=== PATIENT | female | born 1945 | race Caucasian/White ===

== ENCOUNTER 2018-11-24 10:06 | Observation (INO) | payer MEDICARE, SELFPAY ==
[2018-11-24] VITALS (12 sets, daily range): BP systolic 117–140; BP diastolic 69–93; PULSE 72–91; RESP 16–18; TEMP 36.8–37.1; O2SAT 94–99; BMI 37.3; BMI 35.7; BMI 35.8
--- NOTE | 2018-11-24 10:19 | EKG12_ITS ---
Test Reason : CP Blood Pressure : / mmHG Vent. Rate : 096 BPM Atrial Rate : 096 BPM P-R Int : 168 ms QRS Dur : 068 ms QT Int : 358 ms P-R-T Axes : 043 010 046 degrees QTc Int : 452 ms Normal sinus rhythm Possible Inferior infarct , age undetermined Abnormal ECG Confirmed by MISBAH COREAS, LUIS ([id number]), news assignment editor SMOOTH ESTEBAN ([id number]) on 11/29/2018 9:08:18 AM Referred By: ESTHER Confirmed By:LUIS CRAWLEY MD
--- NOTE | 2018-11-24 10:29 | RAD_ITS ---
STUDY: X-RAY CHEST REASON FOR EXAM: Female, 73 years old. Chest pain. TECHNIQUE: Single AP portable view of the chest. COMPARISON: None. FINDINGS: EKG electrodes are seen. Mild elevation of the right hemidiaphragm. Scattered calcified granulomas. There is no demonstrated pleural abnormality. Normal size heart. Normal mediastinum and zenaida. Normal visualized pulmonary arteries. There is atherosclerotic tortuosity of the aortic arch and descending thoracic aorta. There are degenerative changes of the visualized thoracic spine. Normal visualized ribs, clavicles, and shoulders. There is no demonstrated abnormality of the visualized soft tissue structures of the upper abdomen. RAD/Chest 1 View (Portable) IMPRESSION: No acute abnormality is seen. Electronically Signed: Art Dias MD at 10:45 EST Tel [phone], Service support ,
--- NOTE | 2018-11-24 10:31 | ED.DCSUM_ITS ---
- ER Visit Summary Date of Service: 11/24/18 Chief Complaint: Chest pain History of Present Illness: The patient is a 73 F history of hypertension. Patient denies any recent travel, surgery or immobilization. No leg pain or swelling. No hemoptysis. No pleuritic chest pain. No prior history of DVT or PE. Patient states the pain is across her chest and slightly to her left shoulder. States this awoke her from sleep at 6 AM this morning. She has had a recent stress test not done at this facility in the last 3 years which she states was negative. She denies ever having a cardiac catheterization. She herself has no cardiac history but her brother has 8 stents. Her sister and dad both had CAD and bypass surgery. She does state that she gets exertional dyspnea on steps. But not chest pain. She denies any nausea or diaphoresis. She denies any recent illness. Patient thought this may be secondary to anxiety and took a Valium at home without any she has already taken aspirin prior to arrival. Physical Examination: Older female no acute distress. Vital signs are stable. She is afebrile. Pulse ox is 97% on room air no signs of hypoxia. HEENT exam unremarkable. Neck nontender no lymphadenopathy. Lungs clear to auscultation bilaterally. Heart regular rate and rhythm rate about 90. No murmur. Chest wall is nontender. There is no reproducible chest pain. Abdomen is soft and nontender. Normal bowel sounds no peritoneal signs. Patient is moving all 4 extremities. Calves are nontender without edema or cords. Radial pulses are equal and symmetrical. 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 Back nontender. Neurologic exam no focal motor deficits. Test Results: Notable 1 view chest x-ray shows no acute abnormality. KG sinus rhythm rate of 96 with no acute signs of MS or ischemia. White count 8.8. He moglobin 10.5. No old labs available for comparison. Electrolytes show sodium of 149. Potassium 2.1. Chloride of 122. Normal BUN and creatinine and gap. Troponin is normal. Emergency Department Course and Treatment: Patient is already taken aspirin prior to arrival. She will be put through a cardiac chest pain evaluation. Treatment Plan: Repeat exam patient is doing well at 1130. In light that the patient has exertional dyspnea. She has significant risk factors including significant family history of cardiac disease in spite of a recent negative stress test within the last 3 years I do think she needs admission. For her low potassium she has been treated with both IV and p.o. potassium. I have the hospitalist on page. Disposition: Admission Impression: Acute chest pain of uncertain etiology Acute hypokalemia. History of hypertension This note was generated with [employer] dictation software. It may contain incorrect words, spelling, and punctuation that were not noted in review of the chart prior to signing ED Disposition - Plan for ED Patient: Chief Complaint: Chest Pain
[2018-11-24 10:43] LABS: Absolute Lymphocyte Count 0.93 X10^3/ul (0.83-4.51); Absolute Neutrophil Count 2.4 X10^3/uL (2.0-7.7); Basophil# 0.01 X10^3/uL; Basophil% 0.3 % (0-1); Eosinophil# 0.03 X10^3/uL; Eosinophils% 0.8 % (0-5); Hematocrit 32.9 % (37-47); Hemoglobin 10.5 g/dl (12.0-15.0); Lymphocyte # 0.93 X10^3/ul (4.0); Lymphocyte % 24.7 % (19-41); Mean Corp Hgb Conc 31.9 g/gl (32-36); Mean Corpuscular Hgb 27.9 pg (27.0-32.0); Mean Corpuscular Volume 87.5 fL (81-99); Mean Platelet Vol. 10.2 fl (6.2-12.0); Monocyte% 10.6 % (0-10); Neutrophil % 63.6 % (47-70); POSITIVE COUNT NO; POSITIVE DIFFERENTIAL NO; POSITIVE MORPHOLOGY NO; Platelet Count 147 K/mm3 (150-450); RBC Distribution Width CV 13.2 % (11.6-14.6); RBC Distribution Width SD 40.9 fl (35.1-43.9); Red Blood Count 3.76 M/mm3 (4.2-5.4); White Blood Count 3.8 K/mm3 (4.4-11.0)
--- NOTE | 2018-11-24 11:02 | ED.RN ---
LAB RESULTED POTASSIUM 2.1, SARA 5.4, PHYSICIAN NOTIFIED
[2018-11-24 11:03] LABS: Anion Gap 9 (5-15); BUN 12 mg/dL (7-18); BUN/Creat Ratio 20.6 RATIO (10-20); Calcium,Total 5.4 mg/dL (8.5-10.1); Chloride 122 mmol/L (98-107); Creatinine, Serum 0.58 mg/dL (0.55-1.02); EST Glomerular Filtration Rate 108 mL/min (>60); Est Glom Filt Rate - Afr Amer 131 mL/min (>60); Estimated Creatinine Clearance 36.53 ml/min; Glucose 80 mg/dL (74-106); Potassium 2.1 mmol/L (3.5-5.1); Sodium Level 149 mmol/L (136-145)
--- NOTE | 2018-11-24 12:07 | EKG12_ITS ---
Test Reason : CP Blood Pressure : / mmHG Vent. Rate : 069 BPM Atrial Rate : 069 BPM P-R Int : 174 ms QRS Dur : 078 ms QT Int : 382 ms P-R-T Axes : 042 011 036 degrees QTc Int : 409 ms Normal sinus rhythm Normal ECG When compared with ECG of 24-NOV-2018 10:10, MANUAL COMPARISON REQUIRED, DATA IS UNCONFIRMED Confirmed by MISBAH COREAS, LUIS ([id number]), editor at large SMOOTH ESTEBAN ([id number]) on 11/29/2018 9:54:04 AM Referred By: JOVANNY Confirmed By:LUIS CRAWLEY MD
[2018-11-24] MEDS: Potassium Chloride 10mEq/100mL 10 MEQ/100 ML IV.SOLN. 100 MEQ IV BOLUS ×2 (12:12→13:20)
[2018-11-24 12:30] LABS: AST(SGOT) 12 U/L (15-37); Alanine Aminotransfer ALT/SGPT 15 U/L (13-56); Albumin, Serum 2.1 g/dL (3.2-5.0); Alkaline Phosphatase 52 U/L (45-117); Bilirubin, Direct 0.09 mg/dL (0.00-0.30); Globulin 2.4 g/dL (2.2-4.2); Magnesium 1.1 mg/dL (1.6-2.6); Protein, Total 4.5 g/dL (6.4-8.2)
[2018-11-24 12:32] LABS: Phosphorus 1.6 mg/dL (2.5-4.9)
[2018-11-24 12:41] LABS: BNP,B-Type NATRIURETIC PEPTIDE 13.5 pg/mL (0-100)
--- NOTE | 2018-11-24 13:52 | HP.PCM_ITS ---
Problem List (1) Atypical chest pain Status: Acute (2) GERD Status: Chronic (3) History of peptic ulcer disease Status: Chronic (4) Hypertension Status: Chronic History of Present Illness Date of Admission: 11/24/18 Chief Complaint: Chest pain the morning today. The patient is a 73 year old F with history of hypertension and GERD, on losartan HCTZ came to ED for chest pain that woke her up from sleep today in the morning. She also had palpitation but denies associated shortness of breath, diaphoresis. Chest pain was left-sided with radiation to left subclavicular region. Prior to that, she is having exertional dyspnea for 2-3 weeks on going upstairs. She has history of GERD and history of peptic ulcer disease for which she is on PPI. In ED, EKG shows normal sinus rhythm at 69 bpm. First 2 troponins are negative. Electrolytes are low including potassium, magnesium, phosphorus and calcium. [] Past Medical History Past Medical History (Chronic Problems): Chronic Problems GERD (Chronic) History of peptic ulcer disease (Chronic) Hypertension (Chronic) Allergies adhesive tape Allergy (Verified 11/24/18 10:09) Itching amlodipine [From Norvasc] Allergy (Verified 11/24/18 10:09) Swelling cat dander Allergy (Verified 11/24/18 10:09) Unknown cigarette smoke Allergy (Verified 11/24/18 10:09) Other metoprolol [From Lopressor] Allergy (Verified 11/24/18 10:09) Unknown nickel Allergy (Verified 11/24/18 10:09) Rash naproxen [From Aleve] Adverse Reaction (Verified 11/24/18 10:09) Nausea/Vom/Diarrhea rofecoxib [From Vioxx] Adverse Reaction (Verified 11/24/18 10:09) Upset Stomach Sulfa (Sulfonamide Antibiotics) Adverse Reaction (Verified 11/24/18 10:09) Other Home Medications: Ambulatory Orders Medication Instructions Recorded Aspirin [Aspir 81] 81 mg PO DAILY 11/24/18 Biotin 300 mcg PO DAILY 11/24/18 Cholecalciferol (VIT D3) [Vitamin 1,000 unit PO DAILY 11/24/18 D] Clonidine HCl [Catapres] 0.1 mg PO QHS 11/24/18 Diazepam [Valium] 1 mg PO BID PRN PRN 11/24/18 DiphenhydrAMINE [Benadryl] 12.5 mg PO QHS 11/24/18 Losartan/Hydrochlorothiazide 1 each PO DAILY 11/24/18 [Losartan-Hctz 100-12.5 mg Tab] Omeprazole 40 mg PO DAILY 11/24/18 Smoking Status: Former smoker - *Family History Paternal History Items: Heart Disease Sibling History Items: Heart Disease Review of Systems Constitutional: Denies: Chills, Fever, Weight Change HEENT: Denies: Head Aches, Sinus Congestion, Sinus Drainage Cardiovascular: Reports: Chest Pain. Denies: Palpitations Respiratory: Reports: Shortness of breath upon exertion. Denies: Cough, Shortness of breath at rest, Sputum production Gastrointestinal: Denies: Abdominal Pain, Nausea, Vomiting Genitourinary: Denies: Dysuria Musculoskeletal: Denies: Joint Pain, Joint Tenderness Skin: Denies: Rash, Wounds Neurological: Denies: Numbness, Tingling, Focal weakness Psychiatric: Denies: Anxiety, Depression, Homicidal Ideations, Suicidal Ideations Hematologic/ Lymphatic: Denies: Easy Bruising, Easy Bleeding VTE Information - Inpt Only VTE Present on Admission: No VTE Mechan Device Prophylaxis: None VTE Pharm Prophylaxis ordered?: Yes Patient Problems: Active and Suspected Problems Atypical chest pain (Acute) - Physical Exam General: Alert, Oriented x3, Cooperative HEENT: Atraumatic, PERRLA, EOMI, Normocephalic Neck: Supple, No JVD, Negative Carotid Bruits Lungs: Clear to auscultation, Normal air movement Cardiovascular: Regular rate, Regular Rhythm, Normal S1, Normal S2, No murmurs Abdomen: Bowel Sounds Present, Soft, Non Tender, Non-Distended Extremities: No edema, Capillary Refill Less than 3 Seconds Skin: No rashes, No breakdown Musculoskeletal: No Tenderness to Palpation of Joints or Extremities, Arthritic Changes Neurological: Cranial nerves II-XII grossly intact Psych/Mental Status: Normal Affect, Appropriate Vital Signs Temp Pulse Resp BP Pulse Ox 98.8 F 73 16 126/87 H 98 11/24/18 13:10 11/24/18 13:10 11/24/18 13:10 11/24/18 13:10 11/24/18 13:14 Oxygen Flow Rate (L/min) 2 Oxygen Delivery Method Room Air Weight: 183 lb 2 oz Body Mass Index (BMI) 35.7 Laboratory Tests Past 24 Hrs 11/24/18 11/24/18 11/24/18 10:20 10:20 10:20 WBC 3.8 L RBC 3.76 L Hgb 10.5 L Hct 32.9 L MCV 87.5 MCH 27.9 MCHC 31.9 L RDW 13.2 RDW Differential 40.9 Plt Count 147 L MPV 10.2 Immature Gran % (Auto) 0.000 Neut % (Auto) 63.6 Lymph % (Auto) 24.7 [place] % (Auto) 10.6 H Eos % (Auto) 0.8 Baso % (Auto) 0.3 Absolute Neuts (auto) 2.4 Absolute Lymphs (auto) 0.93 Total Counted Not Reportable Sodium 149 H Potassium 2.1 L* Chloride 122 H Carbon Dioxide 18.0 L Anion Gap 9 BUN 12 Creatinine 0.58 Estim Creat Clear Calc 36.53 Est GFR (MDRD) Af Amer 131 Est GFR (MDRD) Non-Af 108 BUN/Creatinine Ratio 20.6 H Glucose 80 Calcium 5.4 L* Phosphorus Magnesium 1.1 L Total Bilirubin 0.30 Direct Bilirubin 0.09 AST 12 L ALT 15 Alkaline Phosphatase 52 Troponin I 0.019 B-Natriuretic Peptide Total Protein 4.5 L Albumin 2.1 L Globulin 2.4 11/24/18 11/24/18 11/24/18 10:20 10:20 13:20 WBC RBC Hgb Hct MCV MCH MCHC RDW RDW Differential Plt Count MPV Immature Gran % (Auto) Neut % (Auto) Lymph % (Auto) [place] % (Auto) Eos % (Auto) Baso % (Auto) Absolute Neuts (auto) Absolute Lymphs (auto) Total Counted Sodium Potassium Chloride Carbon Dioxide Anion Gap BUN Creatinine Estim Creat Clear Calc Est GFR (MDRD) Af Amer Est GFR (MDRD) Non-Af BUN/Creatinine Ratio Glucose Calcium Phosphorus 1.6 L Magnesium Total Bilirubin Direct Bilirubin AST ALT Alkaline Phosphatase Troponin I Pending B-Natriuretic Peptide 13.5 Total Protein Albumin Globulin Assessment/Plan All Active Problems Atypical chest pain (Acute) The patient is a 73 year old F with history of hypertension and GERD, on losartan HCTZ came to ED for chest pain that woke her up from sleep today in the morning. She also had palpitation but denies associated shortness of breath, diaphoresis. Chest pain was left-sided with radiation to left subclavicular region. Prior to that, she is having exertional dyspnea for 2-3 weeks on going upstairs. She has history of GERD and history of peptic ulcer disease for which she is on PPI. In ED, EKG shows normal sinus rhythm at 69 bpm. First 2 troponins are negative. Electrolytes are low including potassium, magnesium, phosphorus and calcium. [] 1. Atypical chest pain rule out acute coronary syndrome: Patient had a stress test couple years ago and [facility] and was negative. Patient is being admitted to PCU. ACS protocol with cycle cardiac enzymes and nuclear stress test tomorrow morning. Fasting profile tomorrow morning. 2. Electrolytes abnormality, most probably from HCTZ: Hypokalemia, hypomagnesemia, hypocalcemia and hypophosphatemia with hypoalbuminemia: Patient corrected calcium is 8.4 with albumin 2.1. K2.1, magnesium 1.1. Electrolyte replacement ordered. Monitor electrolytes after replacement. 3. GERD and history of PUD: Continue PPI. 4. Borderline dyslipidemia: 5. Hypertension: Blood pressure is controlled. HCTZ is on hold. Laboratory Results 11/24/18 10:20: WBC 3.8 L, RBC 3.76 L, Hgb 10.5 L, Hct 32.9 L, MCV 87.5, MCH 27.9, MCHC 31.9 L, RDW 13.2, RDW Differential 40.9, Plt Count 147 L, MPV 10.2, Immature Gran % (Auto) 0.000, Neut % (Auto) 63.6, Lymph % (Auto) 24.7, [place] % (Auto) 10.6 H, Eos % (Auto) 0.8, Baso % (Auto) 0.3, Absolute Neuts (auto) 2.4, Absolute Lymphs (auto) 0.93, Total Counted Not Reportable 11/24/18 10:20: Sodium 149 H, Potassium 2.1 L*, Chloride 122 H, Carbon Dioxide 18.0 L, Anion Gap 9, BUN 12, Creatinine 0.58, Estim Creat Clear Calc 36.53, Est GFR (MDRD) Af Amer 131, Est GFR (MDRD) Non-Af 108, BUN/Creatinine Ratio 20.6 H, Glucose 80, Calcium 5.4 L*, Troponin I 0.019 11/24/18 10:20: Magnesium 1.1 L, Total Bilirubin 0.30, Direct Bilirubin 0.09, AST 12 L, ALT 15, Alkaline Phosphatase 52, Total Protein 4.5 L, Albumin 2.1 L, Globulin 2.4 11/24/18 10:20: B-Natriuretic Peptide 13.5 11/24/18 10:20: Phosphorus 1.6 L 11/24/18 13:20: Troponin I < 0.015 Clinical Impression(s) from Imaging Studies Chest X-Ray 11/24/18 10:29 IMPRESSION: No acute abnormality is seen. Code Visit OBSV E&M: 22027 Initial observation care L3
[2018-11-24 17:10] LABS: Potassium 3.7 mmol/L (3.5-5.1)
[2018-11-24] MEDS: Enoxaparin 40 MG/0.4 ML Syringe SC (18:14)
[2018-11-24] MEDS: cloNIDine HCl 0.1 MG Tablet PO (22:06)
[2018-11-24] MEDS: Na Biphos/Potassium Phosphate PACKET 1 PACKET PO (22:07)
[2018-11-24] MEDS: diazePAM 2 MG Tablet 1 MG PO (23:43)
[2018-11-25 03:00] VITALS: PULSE 66
[2018-11-25 04:00] VITALS: BP 134/73; PULSE 81; RESP 16; TEMP 36.8; O2SAT 98
[2018-11-25 05:44] LABS: Absolute Lymphocyte Count 1.88 X10^3/ul (0.83-4.51); Absolute Neutrophil Count 2.6 X10^3/uL (2.0-7.7); Basophil# 0.01 X10^3/uL; Basophil% 0.2 % (0-1); Eosinophils% 1.9 % (0-5); Hematocrit 41.3 % (37-47); Hemoglobin 13.4 g/dl (12.0-15.0); Lymphocyte # 1.88 X10^3/ul (4.0); Lymphocyte % 35.9 % (19-41); Mean Corp Hgb Conc 32.4 g/gl (32-36); Mean Corpuscular Hgb 28.2 pg (27.0-32.0); Mean Corpuscular Volume 86.8 fL (81-99); Mean Platelet Vol. 10.3 fl (6.2-12.0); Monocyte# 0.62 X10^3/uL; Monocyte% 11.8 % (0-10); Neutrophil # 2.62 X10^3/uL (2.7-7.7); Platelet Count 181 K/mm3 (150-450); RBC Distribution Width CV 13.6 % (11.6-14.6); RBC Distribution Width SD 42.7 fl (35.1-43.9); Red Blood Count 4.76 M/mm3 (4.2-5.4); White Blood Count 5.2 K/mm3 (4.4-11.0)
[2018-11-25 05:49] LABS: POSITIVE COUNT NO; POSITIVE DIFFERENTIAL NO; POSITIVE MORPHOLOGY NO
[2018-11-25 05:54] LABS: International Normalized Ratio 0.9; Prothrombin Time (Protime)PT. 12.6 SECONDS (11.7-14.9)
--- NOTE | 2018-11-25 05:55 | EKG12_ITS ---
Test Reason : AM EKG Blood Pressure : / mmHG Vent. Rate : 071 BPM Atrial Rate : 071 BPM P-R Int : 172 ms QRS Dur : 074 ms QT Int : 392 ms P-R-T Axes : 060 013 051 degrees QTc Int : 425 ms Normal sinus rhythm Normal ECG When compared with ECG of 24-NOV-2018 13:07, MANUAL COMPARISON REQUIRED, DATA IS UNCONFIRMED Confirmed by MISBAH COREAS, LUIS ([id number]), commercial production editor SMOOTH ESTEBAN ([id number]) on 11/29/2018 9:52:56 AM Referred By: JOVANNY Confirmed By:LUIS CRAWLEY MD
[2018-11-25] MEDS: Losartan Potassium 100 MG Tablet PO (06:01)
[2018-11-25] MEDS: Aspirin E.C. 81 MG Tablet PO (06:01)
[2018-11-25 06:27] LABS: Anion Gap 10 (5-15); BUN 18 mg/dL (7-18); BUN/Creat Ratio 17.3 RATIO (10-20); Calcium,Total 8.5 mg/dL (8.5-10.1); Chloride 110 mmol/L (98-107); Cholesterol 167 mg/dL (200); Creatinine, Serum 1.04 mg/dL (0.55-1.02); EST Glomerular Filtration Rate 55 mL/min (>60); Est Glom Filt Rate - Afr Amer 67 mL/min (>60); Estimated Creatinine Clearance 35.12 ml/min; Glucose 107 mg/dL (74-106); High Density Lipoprotein 40 mg/dL; Magnesium 2.3 mg/dL (1.6-2.6); Phosphorus 4.1 mg/dL (2.5-4.9); Potassium 4.3 mmol/L (3.5-5.1); Sodium Level 144 mmol/L (136-145); Thyroid Stim Hormone (TSH) 2.96 uIU/mL (0.358-3.74); Triglycerides 145 mg/dL; Very Low Density Lipoprotein 29 mg/dL (5-40)
[2018-11-25 08:22] VITALS: PULSE 83
[2018-11-25] MEDS: Pantoprazole Sodium 40 MG Tablet PO (09:11)
[2018-11-25] MEDS: Na Biphos/Potassium Phosphate PACKET 1 PACKET PO (09:11)
[2018-11-25 09:17] VITALS: BP 116/70; PULSE 74; RESP 14; TEMP 36.5; O2SAT 95
--- NOTE | 2018-11-25 09:49 | STRESSREP ---
Stress Test Report Date: 11/25/2018 Procedure: Exercise tolerance test/imaging study Indications: Chest pain Consent: Per the patient Procedure: The patient exercised on a Chun protocol for 3 minutes completing Stage I achieving a peak heart rate of 150 bpm (101 % predicted maximal heart rate) with a peak blood pressure 184/92 mmHg and a peak MET capacity of 4 METs. The baseline ECG demonstrated Normal sinus rhythm . The peak exercise ECG demonstrated no obvious ECG changes . There was a rare PVC and an isolated ventricular couplet during exercise . The functional capacity was considered decreased . There was no complaint of chest discomfort during exercise or recovery. The examination was discontinued secondary to dyspnea . Impression: 1. Technically adequate (percent predicted maximal heart rate greater than 85%) exercise tolerance test 2. Peak exercise ECG demonstrated no obvious ECG changes 3. There was a rare PVC and an isolated ventricular couplet during exercise 4. Nuclear images pending Myocardial perfusion imaging study: Technique: The patient was injected with 11.5 mCi of technetium 99m Cardiolite and subsequently rest SPECT Cardiolite nuclear imaging was obtained in the horizontal long, vertical long, and short axis views. The patient exercised on a Chun protocol for 3 minutes completing Stage 1 achieving a peak heart rate of 150 bpm (101 % predicted maximal heart rate) with a peak blood pressure 184/92 mmHg and a peak MET capacity of METs. The patient was injected with 4 33.8 mCi of technetium 99m Cardiolite and subsequently stress SPECT Cardiolite nuclear imaging was obtained in the horizontal long, vertical long, and short axis views. A gated Cardiolite study at peak stress was obtained. Interpretation: Rest and stress SPECT Cardiolite nuclear imaging status post realignment, normalization, and attenuation correction, demonstrates the appearance of relative uniform tracer uptake and myocardial perfusion appearing within normal limits. There is end systolic thickening and brightening. The gated Cardiolite study demonstrates myocardial thickening and inward wall motion. The reported LVEF is 90 %. Impression: 1. Rest and stress SPECT Cardiolite nuclear imaging demonstrate relative uniform tracer uptake and myocardial perfusion appearing within normal limits. 2. The gated Cardiolite study reports an LVEF of 90 %. This note was generated with [employer] software. It may contain incorrect words, spelling, and punctuation that were not noted in checking the note before signing.
[2018-11-25 10:52] VITALS: PULSE 83
--- NOTE | 2018-11-25 11:20 | DCINST_ITS ---
- Discharge Diagnoses Current Active Problems: Current Active and Chronic Problems Atypical chest pain (Acute) GERD (Chronic) History of peptic ulcer disease (Chronic) Hypertension (Chronic) You will use the following diet at home:: Cardiac Your food should be the consistency of: Regular Discharge Activity: May Not Drive, May not drive while taking narcotic pain medications. Call your doctor if you observe: Fever of 101 or Higher, Numbness or Tingling, Inability to urinate, Inability to have a bowel movement, Shortness of breath, Chest pain, Increased palpitations (irregular heartbeat), Calf discomfort Allergies/Adverse Reactions: Allergies adhesive tape Allergy (Verified 11/24/18 10:09) Itching amlodipine [From Norvasc] Allergy (Verified 11/24/18 10:09) Swelling cat dander Allergy (Verified 11/24/18 10:09) Unknown cigarette smoke Allergy (Verified 11/24/18 10:09) Other metoprolol [From Lopressor] Allergy (Verified 11/24/18 10:09) Unknown nickel Allergy (Verified 11/24/18 10:09) Rash naproxen [From Aleve] Adverse Reaction (Verified 11/24/18 10:09) Nausea/Vom/Diarrhea rofecoxib [From Vioxx] Adverse Reaction (Verified 11/24/18 10:09) Upset Stomach Sulfa (Sulfonamide Antibiotics) Adverse Reaction (Verified 11/24/18 10:09) Other Medications to take at Discharge Aspirin [Aspir 81] 81 mg PO DAILY 11/24/18 Biotin 300 mcg PO DAILY 11/24/18 Cholecalciferol (VIT D3) [Vitamin D3] 1,000 unit PO DAILY 11/24/18 Clonidine HCl [Catapres] 0.1 mg PO QHS 11/24/18 Diazepam [Valium] 1 mg PO BID PRN PRN 11/24/18 DiphenhydrAMINE [Benadryl] 12.5 mg PO QHS 11/24/18 Losartan/Hydrochlorothiazide [Losartan-Hctz 100-12.5 mg Tab] 1 each PO DAILY 11/24/18 Omeprazole 40 mg PO DAILY 11/24/18 Potassium Chloride [K-Dur] 20 meq PO DAILY #14 tablet 11/25/18 The following prescriptions were given: Potassium Chloride [K-Dur] 20 meq PO DAILY #14 tablet Primary Care Physician: Thaddeus Mike MD [Primary Care Provider] - Please follow up with your Primary Care Physician in: [place] 1-2 weeks Test Results: Test results from this visit will be discussed in further detail at your follow- up appointment, if applicable.
--- NOTE | 2018-11-25 11:20 | PCM.DC.SUM ---
Discharge Date and Diagnosis Date of Admission: 11/24/18 Date of Discharge: 11/25/18 - Primary Discharge Diagnosis Active and Suspected Problems Atypical chest pain (Acute) - Secondary Discharge Diagnosis Chronic Problems GERD (Chronic) History of peptic ulcer disease (Chronic) Hypertension (Chronic) Hospital Course and Treatment Imaging Results: 11/25/18 05:55 Nuclear Stress Test - Treadmil [NM] AM (NON MEDS) Summary of Care Provided: [] The patient is a 73 year old F with history of hypertension and GERD, on losartan HCTZ came to ED for chest pain that woke her up from sleep today in the morning. She also had palpitation but denies associated shortness of breath, diaphoresis. Chest pain was left-sided with radiation to left subclavicular region. Prior to that, she is having exertional dyspnea for 2-3 weeks on going upstairs. She has history of GERD and history of peptic ulcer disease for which she is on PPI. In ED, EKG shows normal sinus rhythm at 69 bpm. First 2 troponins are negative. Electrolytes are low including potassium, magnesium, phosphorus and calcium. [] 1. Atypical chest pain most probably from musculoskeletal back pain: Patient had a stress test couple years ago and [place] and was negative. Patient was being admitted to PCU. Serial troponin enzymes were negative. Patient had nuclear stress test which was negative for stress-induced ischemia. ACS protocol with cycle cardiac enzymes and nuclear stress test tomorrow morning. Fasting profile profile is reported normal, LDL 98, HDL 40, total cholesterol 167. 2. Electrolytes abnormality, most probably from HCTZ: Hypokalemia, hypomagnesemia, hypocalcemia and hypophosphatemia with hypoalbuminemia: Patient corrected calcium is 8.4 with albumin 2.1. K2.1, magnesium 1.1. Electrolytes were corrected. Repeat magnesium 2.3, phosphorus 4.1, potassium 4.3. Patient is discharged on K Dur 20 M EQ along with HCTZ because of severe electrolyte abnormalities secondary to HCTZ. 3. GERD and history of PUD: Continue PPI. Hypertension: Blood pressure is controlled. HCTZ resumed Discharge medication reconciliation done. Discharge follow-up instructions completed. Discharge medications and instructions discussed with the patient and all questions were answered to her satisfaction. Clinical Impression(s) from Imaging Studies Chest X-Ray 11/24/18 10:29 IMPRESSION: No acute abnormality is seen. Electronically Signed: Art Dias MD at 10:45 EST Tel [phone], Service support , Laboratory Results 11/25/18 05:35: Sodium 144, Potassium 4.3, Chloride 110 H, Carbon Dioxide 24.0, Anion Gap 10, BUN 18, Creatinine 1.04 H, Estim Creat Clear Calc 35.12, Est GFR (MDRD) Af Amer 67, Est GFR (MDRD) Non-Af 55 L, BUN/Creatinine Ratio 17.3, Glucose 107 H, Calcium 8.5, Phosphorus 4.1, Magnesium 2.3, Triglycerides 145, Cholesterol 167, LDL Cholesterol 98, VLDL Cholesterol 29, HDL Cholesterol 40, TSH 2.96 11/25/18 05:35: WBC 5.2, RBC 4.76, Hgb 13.4, Hct 41.3, MCV 86.8, MCH 28.2, MCHC 32.4, RDW 13.6, RDW Differential 42.7, Plt Count 181, MPV 10.3, Immature Gran % (Auto) 0.200, Neut % (Auto) 50.0, Lymph % (Auto) 35.9, [place] % (Auto) 11.8 H, Eos % (Auto) 1.9, Baso % (Auto) 0.2, Absolute Neuts (auto) 2.6, Absolute Lymphs (auto) 1.88, Total Counted Not Reportable 11/25/18 05:35: PT 12.6, INR 0.9, APTT 32.0 Subjective: Patient denies chest pain, shortness of breath or near syncope symptoms. - Physical Exam General: Alert, Oriented x3, Cooperative HEENT: Atraumatic, PERRLA, EOMI, Normocephalic Neck: Supple, No JVD, Negative Carotid Bruits Lungs: Clear to auscultation, Normal air movement, No rhonchi Cardiovascular: Regular rate, Regular Rhythm, Normal S1, Normal S2, No murmurs Abdomen: Bowel Sounds Present, Soft, Non Tender, Non-Distended Extremities: No edema, Capillary Refill Less than 3 Seconds Skin: No rashes, No breakdown Musculoskeletal: No Tenderness to Palpation of Joints or Extremities, Arthritic Changes Neurological: Cranial nerves II-XII grossly intact Psych/Mental Status: Normal Affect, Appropriate Vital Signs Temp Pulse Resp BP Pulse Ox 97.7 F L 83 14 116/70 95 11/25/18 09:17 11/25/18 10:52 11/25/18 09:17 11/25/18 09:17 11/25/18 09:17 Oxygen Flow Rate (L/min) 2 Oxygen Delivery Method Room Air Weight: 183 lb 2 oz Body Mass Index (BMI) 35.7 Intake and Output for Last 24 Hours 11/23/18 11/24/18 11/25/18 23:59 23:59 23:59 Intake Total 1440 / 1440 Balance 1440 / 1440 Laboratory Tests Past 24 Hrs 11/24/18 11/24/18 11/24/18 10:20 10:20 10:20 WBC RBC Hgb Hct MCV MCH MCHC RDW RDW Differential Plt Count MPV Immature Gran % (Auto) Neut % (Auto) Lymph % (Auto) [place] % (Auto) Eos % (Auto) Baso % (Auto) Absolute Neuts (auto) Absolute Lymphs (auto) Total Counted PT INR APTT Sodium Potassium Chloride Carbon Dioxide Anion Gap BUN Creatinine Estim Creat Clear Calc Est GFR (MDRD) Af Amer Est GFR (MDRD) Non-Af BUN/Creatinine Ratio Glucose Calcium Phosphorus 1.6 L Magnesium 1.1 L Total Bilirubin 0.30 Direct Bilirubin 0.09 AST 12 L ALT 15 Alkaline Phosphatase 52 Troponin I B-Natriuretic Peptide 13.5 Total Protein 4.5 L Albumin 2.1 L Globulin 2.4 Triglycerides Cholesterol LDL Cholesterol VLDL Cholesterol HDL Cholesterol TSH 11/24/18 11/24/18 11/24/18 13:20 16:40 16:40 WBC RBC Hgb Hct MCV MCH MCHC RDW RDW Differential Plt Count MPV Immature Gran % (Auto) Neut % (Auto) Lymph % (Auto) [place] % (Auto) Eos % (Auto) Baso % (Auto) Absolute Neuts (auto) Absolute Lymphs (auto) Total Counted PT INR APTT Sodium Potassium 3.7 Chloride Carbon Dioxide Anion Gap BUN Creatinine Estim Creat Clear Calc Est GFR (MDRD) Af Amer Est GFR (MDRD) Non-Af BUN/Creatinine Ratio Glucose Calcium Phosphorus Magnesium Total Bilirubin Direct Bilirubin AST ALT Alkaline Phosphatase Troponin I < 0.015 < 0.015 B-Natriuretic Peptide Total Protein Albumin Globulin Triglycerides Cholesterol LDL Cholesterol VLDL Cholesterol HDL Cholesterol TSH 11/25/18 11/25/18 11/25/18 05:35 05:35 05:35 WBC 5.2 RBC 4.76 Hgb 13.4 Hct 41.3 MCV 86.8 MCH 28.2 MCHC 32.4 RDW 13.6 RDW Differential 42.7 Plt Count 181 MPV 10.3 Immature Gran % (Auto) 0.200 Neut % (Auto) 50.0 Lymph % (Auto) 35.9 [place] % (Auto) 11.8 H Eos % (Auto) 1.9 Baso % (Auto) 0.2 Absolute Neuts (auto) 2.6 Absolute Lymphs (auto) 1.88 Total Counted Not Reportable PT 12.6 INR 0.9 APTT 32.0 Sodium 144 Potassium 4.3 Chloride 110 H Carbon Dioxide 24.0 Anion Gap 10 BUN 18 Creatinine 1.04 H Estim Creat Clear Calc 35.12 Est GFR (MDRD) Af Amer 67 Est GFR (MDRD) Non-Af 55 L BUN/Creatinine Ratio 17.3 Glucose 107 H Calcium 8.5 Phosphorus 4.1 Magnesium 2.3 Total Bilirubin Direct Bilirubin AST ALT Alkaline Phosphatase Troponin I B-Natriuretic Peptide Total Protein Albumin Globulin Triglycerides 145 Cholesterol 167 LDL Cholesterol 98 VLDL Cholesterol 29 HDL Cholesterol 40 TSH 2.96 Discharge Activity: May Not Drive, May not drive while taking narcotic pain medications. Call your doctor if you observe: Fever of 101 or Higher, Numbness or Tingling, Inability to urinate, Inability to have a bowel movement, Shortness of breath, Chest pain, Increased palpitations (irregular heartbeat), Calf discomfort Home Medications: Medications to take at Discharge Aspirin [Aspir 81] 81 mg PO DAILY 11/24/18 Biotin 300 mcg PO DAILY 11/24/18 Cholecalciferol (VIT D3) [Vitamin D3] 1,000 unit PO DAILY 11/24/18 Clonidine HCl [Catapres] 0.1 mg PO QHS 11/24/18 Diazepam [Valium] 1 mg PO BID PRN PRN 11/24/18 DiphenhydrAMINE [Benadryl] 12.5 mg PO QHS 11/24/18 Losartan/Hydrochlorothiazide [Losartan-Hctz 100-12.5 mg Tab] 1 each PO DAILY 11/24/18 Omeprazole 40 mg PO DAILY 11/24/18 Potassium Chloride [K-Dur] 20 meq PO DAILY #14 tablet 11/25/18 Following Prescrptions Were Given to Patient: Potassium Chloride [K-Dur] 20 meq PO DAILY #14 tablet Primary Care Physician: Thaddeus Mike MD [Primary Care Provider] - Please follow up with your Primary Care Physician in: [place] 1-2 weeks Medical Necessity - Tobacco Use Smoking Status: Former smoker Meaningful Use Info Meaningful Use Diagnoses (Choose all that apply): None applicable Code Visit OBSV E&M: 45388 Observation care discharge
--- OUTSIDE RECORDS SUMMARY | 2019-01-29 06:53 | XMS RPT_ITS ---
:1945 Author Organization OHIP Care Team Providers Name Role Phone ANDRE MIKE Attending Unavailable ANDRE MIKE Referring Unavailable ANDRE MIKE Attending Unavailable JASON ARECHIGA Attending Unavailable Andre Mike Primary Care Unavailable Jovanny, Cory Admitting Unavailable Cory Walker Attending Unavailable Jovanny, Cory Admitting Unavailable Madison Walkersh Attending Unavailable Andre Mike Primary Care Unavailable Jovanny, Cory Consulting Unavailable Jovanny, Cory Admitting Unavailable Jovanny Cory Attending Unavailable Andre Mike Primary Care Unavailable Jovanny, Cory Consulting Unavailable PROBLEMS PROBLEMS DATE TYPE CONDITION / CODE ATTENDING STATUS SOURCE 07/30/2017 Active Chronic kidney NA Active [facility] disease, stage 3 [place] (moderate) / Repository N18.3(ICD-10) 12/04/2016 Active Prediabetes / NA Active [facility] R73.03(ICD-10) [place] Repository 11/24/2018 Active Dysuria / NA Active [facility] R30.0(ICD-10) [place] Repository 11/24/2018 Active Acute cystitis NA Active [facility] with hematuria / [place] N30.01(ICD-10) Repository 03/24/2018 Active Punctate JASON ARECHIGA Active [facility] keratitis, K [place] bilateral / Repository H16.143(ICD-10) 03/24/2018 Active Other specified ARECHIGA, JSAON Active [facility] disorders of [facility] eyelid / Repository H02.89(ICD-10) 06/30/2017 Active 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, Repository bilateral / H25.813(ICD-10) PROCEDURES PROCEDURES No Procedure Records FoundRESULTS RESULTS 12 LEAD ELECTROCARDIOGRAM Observed: 11/29/2018 Status: F Source: [place] 9:54 AM [facility] REPOSITORY [facility] Cardiovascular Services [address] [place] [address] 12 Lead EKG 11/24/18 1307 MR#: [id number] Acct: [id number] Name: TERRI SHEEHAN Rep #: [id number] : 1945 73 From: Dane Dick MD Attending Dr: Cory Walker MD Status: DIS FELIX Ordering Dr: Cory Walker MD Date: 11/24/18 Location: [facility] Sex: F C Admitted: 11/24/18 Test Reason : CP Blood Pressure : / mmHG Vent. Rate : 069 BPM Atrial Rate : 069 BPM P-R Int : 174 ms QRS Dur : 078 ms QT Int : 382 ms P-R-T Axes : 042 011 036 degrees QTc Int : 409 ms Normal sinus rhythm Normal ECG When compared with ECG of 24-NOV-2018 10:10, MANUAL COMPARISON REQUIRED, DATA IS UNCONFIRMED Confirmed by DANE DICK MD ([id number]), editor managing newspaper [employer] ([id number]) on 11/29/2018 9:54:04 AM Referred By: JOVANNY Confirmed By:DANE DICK MD 11/29/18 0954 Date Dane Dick MD CC: Cory Walker MD; Andre Mike MD Signed 12 LEAD ELECTROCARDIOGRAM Observed: 11/29/2018 Status: F Source: [place] 9:53 AM [facility] REPOSITORY [facility] Cardiovascular Services [address] [place] [address] 12 Lead EKG 11/25/18 0527 MR#: [id number] Acct: [id number] Name: TERRI SHEEHAN Rep #: [id number] : 1945 73 From: Dane Dick MD Attending Dr: Cory Walker MD Status: DIS FELIX Ordering Dr: Cory Walker MD Date: 11/25/18 Location: [facility] Sex: F C Admitted: 11/24/18 Test Reason : AM EKG Blood Pressure : / mmHG Vent. Rate : 071 BPM Atrial Rate : 071 BPM P-R Int : 172 ms QRS Dur : 074 ms QT Int : 392 ms P-R-T Axes : 060 013 051 degrees QTc Int : 425 ms Normal sinus rhythm Normal ECG When compared with ECG of 24-NOV-2018 13:07, MANUAL COMPARISON REQUIRED, DATA IS UNCONFIRMED Confirmed by DANE DICK MD ([id number]), editor managing newspaper [employer] ([id number]) on 11/29/2018 9:52:56 AM Referred By: JOVANNY Confirmed By:DANE DICK MD 11/29/18 0952 Date Dane Dick MD CC: Cory Walker MD; Andre Mike MD Signed 12 LEAD ELECTROCARDIOGRAM Observed: 11/29/2018 Status: F Source: [place] 9:08 AM [facility] REPOSITORY [facility] Cardiovascular Services [address] [place] [address] 12 Lead EKG 11/24/18 1010 MR#: [id number] Acct: [id number] Name: TERRI SHEEHAN Rep #: [id number] : 1945 73 From: Dane Dick MD Attending Dr: Cory Walker MD Status: DIS FELIX Ordering Dr: Addy Correa MD Date: 11/24/18 Location: [facility] Sex: F C Admitted: 11/24/18 Test Reason : CP Blood Pressure : / mmHG Vent. Rate : 096 BPM Atrial Rate : 096 BPM P-R Int : 168 ms QRS Dur : 068 ms QT Int : 358 ms P-R-T Axes : 043 010 046 degrees QTc Int : 452 ms Normal sinus rhythm Possible Inferior infarct , age undetermined Abnormal ECG Confirmed by DANE DICK MD ([id number]), editor managing newspaper [employer] ([id number]) on 11/29/2018 9:08:18 AM Referred By: ESTHER Confirmed By:DANE DICK MD 11/29/18 0908 Date Dane Dick MD CC: Addy Correa MD; Cory Walker MD; Andre Mike MD Signed DISCHARGE SUMMARY Observed: 11/25/2018 Status: F Source: [place] 6:30 PM [facility] REPOSITORY [facility] Medical Records Department [address] [place] [address] Discharge Summary 11/25/18 1120 MR#: [id number] Acct: [id number] Name: SISSYTERRI Greg Rep #: [id number] : 1945 73 From: Cory Walker MD PCP: Andre Mike MD Status: DIS FELIX Y Location: [place] [address] Discharge Date and Diagnosis Date of Admission: 11/24/18 Date of Discharge: 11/25/18 - Primary Discharge Diagnosis Active and Suspected Problems Atypical chest pain (Acute) - Secondary Discharge Diagnosis Chronic Problems GERD (Chronic) History of peptic ulcer disease (Chronic) Hypertension (Chronic) Hospital Course and Treatment Imaging Results: 11/25/18 05:55 Nuclear Stress Test - Treadmil [NM] AM (NON MEDS) Summary of Care Provided: [] The patient is a 73 year old F with history of hypertension and GERD, on losartan HCTZ came to ED for chest pain that woke her up from sleep today in the morning. She also had palpitation but denies associated shortness of breath, diaphoresis. Chest pain was left-sided with radiation to left subclavicular region. Prior to that, she is having exertional dyspnea for 2-3 weeks on going upstairs. She has history of GERD and history of peptic ulcer disease for which she is on PPI. In ED, EKG shows normal sinus rhythm at 69 bpm. First 2 troponins are negative. Electrolytes are low including potassium, magnesium, phosphorus and calcium. [] 1. Atypical chest pain most probably from musculoskeletal back pain: Patient had a stress test couple years ago and [place] and was negative. Patient was being admitted to PCU. Serial troponin enzymes were negative. Patient had nuclear stress test which was negative for stress-induced ischemia. ACS protocol with cycle cardiac enzymes and nuclear stress test tomorrow morning. Fasting profile profile is reported normal, LDL 98, HDL 40, total cholesterol 167. 2. Electrolytes abnormality, most probably from HCTZ: Hypokalemia, hypomagnesemia, hypocalcemia and hypophosphatemia with hypoalbuminemia: Patient corrected calcium is 8.4 with albumin 2.1. K2.1, magnesium 1.1. Electrolytes were corrected. Repeat magnesium 2.3, phosphorus 4.1, potassium 4.3. Patient is discharged on K Dur 20 M EQ along with HCTZ because of severe electrolyte abnormalities secondary to HCTZ. 3. GERD and history of PUD: Continue PPI. Hypertension: Blood pressure is controlled. HCTZ resumed Discharge medication reconciliation done. Discharge follow- up instructions completed. Discharge medications and instructions discussed with the patient and all questions were answered to her satisfaction. Clinical Impression(s) from Imaging Studies Chest X-Ray 11/24/18 10:29 IMPRESSION: No acute abnormality is seen. Electronically Signed: Art Dias MD at 10:45 EST Tel [phone], Service support , Laboratory Results 11/25/18 05:35: Sodium 144, Potassium 4.3, Chloride 110 H, Carbon Dioxide 24.0, Anion Gap 10, BUN 18, Creatinine 1.04 H, Estim Creat Clear Calc 35.12, Est GFR (MDRD) Af Amer 67, Est GFR (MDRD) Non-Af 55 L, BUN/Creatinine Ratio 17.3, Glucose 107 H, Calcium 8.5, Phosphorus 4.1, Magnesium 2.3, Triglycerides 145, Cholesterol 167, LDL Cholesterol 98, VLDL Cholesterol 29, HDL Cholesterol 40, TSH 2.96 11/25/18 05:35: WBC 5.2, RBC 4.76, Hgb 13.4, Hct 41.3, MCV 86.8, MCH 28.2, MCHC 32.4, RDW 13.6, RDW Differential 42.7, Plt Count 181, MPV 10.3, Immature Gran % (Auto) 0.200, Neut % (Auto) 50.0, Lymph % (Auto) 35.9, [place] % (Auto) 11.8 H, Eos % (Auto) 1.9, Baso % (Auto) 0.2, Absolute Neuts (auto) 2.6, Absolute Lymphs (auto) 1.88, Total Counted Not Reportable 11/25/18 05:35: PT 12.6, INR 0.9, APTT 32.0 Subjective: Patient denies chest pain, shortness of breath or near syncope symptoms. - Physical Exam General: Alert, Oriented x3, Cooperative HEENT: Atraumatic, PERRLA, EOMI, Normocephalic Neck: Supple, No JVD, Negative Carotid Bruits Lungs: Clear to auscultation, Normal air movement, No rhonchi Cardiovascular: Regular rate, Regular Rhythm, Normal S1, Normal S2, No murmurs Abdomen: Bowel Sounds Present, Soft, Non Tender, Non-Distended Extremities: No edema, Capillary Refill Less than 3 Seconds Skin: No rashes, No breakdown Musculoskeletal: No Tenderness to Palpation of Joints or Extremities, Arthritic Changes Neurological: Cranial nerves II-XII grossly intact Psych/Mental Status: Normal Affect, Appropriate Vital Signs Temp Pulse Resp BP Pulse Ox 97.7 F L 83 14 116/70 95 11/25/18 09:17 11/25/18 10:52 11/25/18 09:17 11/25/18 09:17 11/25/18 09:17 Oxygen Flow Rate (L/min) 2 Oxygen Delivery Method Room Air Weight: 183 lb 2 oz Body Mass Index (BMI) 35.7 Intake and Output for Last 24 Hours Intake Total 1440 / 1440 Balance 1440 / 1440 Laboratory Tests Past 24 Hrs WBC RBC Hgb Hct MCV MCH MCHC RDW RDW Differential Plt Count MPV WBC 5.2 RBC 4.76 Hgb 13.4 Hct 41.3 MCV 86.8 MCH 28.2 MCHC 32.4 RDW 13.6 Discharge Activity: May Not Drive, May not drive while taking narcotic pain medications. Call your doctor if you observe: Fever of 101 or Higher, Numbness or Tingling, Inability to urinate, Inability to have a bowel movement, Shortness of breath, Chest pain, Increased palpitations (irregular heartbeat), Calf discomfort Home Medications: Medications to take at Discharge Aspirin [Aspir 81] 81 mg PO DAILY 11/24/18 Biotin 300 mcg PO DAILY 11/24/18 Cholecalciferol (VIT D3) [Vitamin D3] 1,000 unit PO DAILY 11/24/18 Clonidine HCl [Catapres] 0.1 mg PO QHS 11/24/18 Diazepam [Valium] 1 mg PO BID PRN PRN 11/24/18 DiphenhydrAMINE [Benadryl] 12.5 mg PO QHS 11/24/18 Losartan/Hydrochlorothiazide [Losartan-Hctz 100-12.5 mg Tab] 1 each PO DAILY 11/24/18 Omeprazole 40 mg PO DAILY 11/24/18 Potassium Chloride [K-Dur] 20 meq PO DAILY #14 tablet 11/25/18 Following Prescrptions Were Given to Patient: Potassium Chloride [K-Dur] 20 meq PO DAILY #14 tablet Primary Care Physician: Andre Mike MD [Primary Care Provider] - Please follow up with your Primary Care Physician in: [place] 1- 2 weeks Medical Necessity - Tobacco Use Smoking Status: Former smoker Meaningful Use Info Meaningful Use Diagnoses (Choose all that apply): None applicable Code Visit OBSV E AND M: 75575 Observation care discharge 11/25/180 <Electronically signed by Coyr Walker MD> Date Cory Walker MD Cosigner Signature (if applicable): Date CC: Cory Walker MD; Andre Mike MD Signed DISCHARGE INSTRUCTION Observed: 11/25/2018 Status: F Source: [place] 11:20 AM [facility] REPOSITORY [facility] Medical Records Department [address] [place] [address] Instructions for Home/Discharge Instructions 11/25/18 1118 MR#: [id number] Acct: [id number] Name: TERRI SHEEHAN Rep #: [id number] : 1945 73 From: Cory Walker MD PCP: Andre Mike MD Status: ADM FELIX - Discharge Diagnoses Current Active Problems: Current Active and Chronic Problems Atypical chest pain (Acute) GERD (Chronic) History of peptic ulcer disease (Chronic) Hypertension (Chronic) You will use the following diet at home:: Cardiac Your food should be the consistency of: Regular Discharge Activity: May Not Drive, May not drive while taking narcotic pain medications. Call your doctor if you observe: Fever of 101 or Higher, Numbness or Tingling, Inability to urinate, Inability to have a bowel movement, Shortness of breath, Chest pain, Increased palpitations (irregular heartbeat), Calf discomfort Allergies/Adverse Reactions: Allergies adhesive tape Allergy (Verified 11/24/18 10:09) Itching amlodipine [From Norvasc] Allergy (Verified 11/24/18 10:09) Swelling cat dander Allergy (Verified 11/24/18 10:09) Unknown cigarette smoke Allergy (Verified 11/24/18 10:09) Other metoprolol [From Lopressor] Allergy (Verified 11/24/18 10:09) Unknown nickel Allergy (Verified 11/24/18 10:09) Rash naproxen [From Aleve] Adverse Reaction (Verified 11/24/18 10:09) Nausea/Vom/Diarrhea rofecoxib [From Vioxx] Adverse Reaction (Verified 11/24/18 10:09) Upset Stomach Sulfa (Sulfonamide Antibiotics) Adverse Reaction (Verified 11/24/18 10:09) Other Medications to take at Discharge Aspirin [Aspir 81] 81 mg PO DAILY 11/24/18 Biotin 300 mcg PO DAILY 11/24/18 Cholecalciferol (VIT D3) [Vitamin D3] 1,000 unit PO DAILY 11/24/18 Clonidine HCl [Catapres] 0.1 mg PO QHS 11/24/18 Diazepam [Valium] 1 mg PO BID PRN PRN 11/24/18 DiphenhydrAMINE [Benadryl] 12.5 mg PO QHS 11/24/18 Losartan/Hydrochlorothiazide [Losartan-Hctz 100-12.5 mg Tab] 1 each PO DAILY 11/24/18 Omeprazole 40 mg PO DAILY 11/24/18 Potassium Chloride [K-Dur] 20 meq PO DAILY #14 tablet 11/25/18 The following prescriptions were given: Potassium Chloride [K-Dur] 20 meq PO DAILY #14 tablet Primary Care Physician: Andre Mike MD [Primary Care Provider] - Please follow up with your Primary Care Physician in: [place] 1- 2 weeks Test Results: Test results from this visit will be discussed in further detail at your follow-up appointment, if applicable. 11/25/18 1120 <Electronically signed by Cory Walker MD> Date Cory Walker MD CC: Andre Mike MD Signed STRESS REPORT Observed: 11/25/2018 Status: F Source: [place] 9:55 AM [facility] REPOSITORY [facility] Cardiovascular Services [address] [place] [address] MR#: [id number] Acct: [id number] Name: SISSYTERRI Greg Rep #: [id number] : 1945 73 From: Víctor Sandhu MD Primary Care: Andre Mike MD Status: ADM FELIX Ordering Dr: Sex: F C Stress Test Report Date: 11/25/2018 Procedure: Exercise tolerance test/imaging study Indications: Chest pain Consent: Per the patient Procedure: The patient exercised on a Chun protocol for 3 minutes completing Stage I achieving a peak heart rate of 150 bpm (101 % predicted maximal heart rate) with a peak blood pressure 184/92 mmHg and a peak MET capacity of 4 METs. The baseline ECG demonstrated Normal sinus rhythm . The peak exercise ECG demonstrated no obvious ECG changes . There was a rare PVC and an isolated ventricular couplet during exercise . The functional capacity was considered decreased . There was no complaint of chest discomfort during exercise or recovery. The examination was discontinued secondary to dyspnea . Impression: 1. Technically adequate (percent predicted maximal heart rate greater than 85%) exercise tolerance test 2. Peak exercise ECG demonstrated no obvious ECG changes 3. There was a rare PVC and an isolated ventricular couplet during exercise 4. Nuclear images pending Myocardial perfusion imaging study: Technique: The patient was injected with 11.5 mCi of technetium 99m Cardiolite and subsequently rest SPECT Cardiolite nuclear imaging was obtained in the horizontal long, vertical long, and short axis views. The patient exercised on a Chun protocol for 3 minutes completing Stage 1 achieving a peak heart rate of 150 bpm (101 % predicted maximal heart rate) with a peak blood pressure 184/92 mmHg and a peak MET capacity of METs. The patient was injected with 4 33.8 mCi of technetium 99m Cardiolite and subsequently stress SPECT Cardiolite nuclear imaging was obtained in the horizontal long, vertical long, and short axis views. A gated Cardiolite study at peak stress was obtained. Interpretation: Rest and stress SPECT Cardiolite nuclear imaging status post realignment, normalization, and attenuation correction, demonstrates the appearance of relative uniform tracer uptake and myocardial perfusion appearing within normal limits. There is end systolic thickening and brightening. The gated Cardiolite study demonstrates myocardial thickening and inward wall motion. The reported LVEF is 90 %. Impression: 1. Rest and stress SPECT Cardiolite nuclear imaging demonstrate relative uniform tracer uptake and myocardial perfusion appearing within normal limits. 2. The gated Cardiolite study reports an LVEF of 90 %. This note was generated with Boxer software. It may contain incorrect words, spelling, and punctuation that were not noted in checking the note before signing. 11/25/18 0955 <Electronically signed by Víctor Sandhu MD> Date Víctor Sandhu MD CC: Cory Walker MD; Andre Mike MD Date Dictated: 11/25/1849 Date Transcribed: 11/25/18948 Pillowcase Maker: PM Signed CBC W/DIFF, AUTOMATED Collected: 11/25/2018 Status: F Source: [place] 5:35 AM [facility] REPOSITORY TYPE CODE TESTS RESULT OUT OF RANGE REFERENCE UNITS LAB L100.1000 4.4-11.0 K/mm3 Normal WBC 5.2 LAB L100.1200 4.2-5.4 M/mm3 Normal RBC 4.76 LAB L100.1300 12.0-15.0 g/dl Normal HGB 13.4 LAB L100.1400 37-47 % Normal HCT 41.3 LAB L100.1500 81-99 fL Normal MCV 86.8 LAB L100.1600 27.0-32.0 pg Normal MCH 28.2 LAB L100.1700 32-36 g/gl Normal MCHC 32.4 LAB L100.1810 11.6-14.6 % Normal RDW CV 13.6 LAB L100.1820 35.1-43.9 fl Normal RDW SD 42.7 LAB L100.1900 150-450 K/mm3 Normal PLT 181 LAB L100.2000 6.2-12.0 fl Normal MPV 10.3 LAB L100.2100 47-70 % Normal NEUT% 50.0 LAB L100.2200 19-41 % Normal LY% 35.9 LAB L100.2300 0-10 % High MONO% 11.8 LAB L100.2400 0-5 % Normal EO% 1.9 LAB L100.2500 0-1 % Normal BASO% 0.2 LAB L100.2550 0.0-0.9 % Normal IM GRAN % 0.200 Result Comment: IG% - Immature Granulocytes (promyelocytes, myelocytes and metamyelocytes) > 1% indicates that a LEFT SHIFT is Present. LAB L100.2620 2.0-7.7 X10 3/uL Normal Absolute Neut 2.6 LAB L100.2720 0.83-4.51 X10 3/ul Normal Absolute Lymph 1.88 Performed By: #### L100.0100 #### [facility] [address] [place] [address], [address] PROTHROMBIN TIME W/INR Collected: 11/25/2018 Status: F Source: [place] 5:35 AM [facility] REPOSITORY TYPE CODE TESTS RESULT OUT OF RANGE REFERENCE UNITS LAB L300.4150 11.7-14.9 SECONDS Normal PROTIME 12.6 LAB L300.4200 Normal INR 0.9 Performed By: #### L300.3900, L300.4310 #### [facility] [address] [place], [place], [id number] PARTIAL THROMBOPLAST Collected: 11/25/2018 Status: F Source: [place] TIME 5:35 AM [facility] REPOSITORY TYPE CODE TESTS RESULT OUT OF RANGE REFERENCE UNITS LAB L300.4310 24.1-36.2 Seconds Normal PTT 32.0 Performed By: #### L300.3900, L300.4310 #### [facility] [address] [place], [place], [address] BASIC METABOLIC Collected: 11/25/2018 Status: F Source: [place] PROFILE (BMP) 5:35 AM [facility] REPOSITORY TYPE CODE TESTS RESULT OUT OF RANGE REFERENCE UNITS LAB L501.0100 74-106 mg/dL High GLU 107 Result Comment: Fasting Glucose result from 100 to 125 mg/dL suggests IMPAIRED HOMEOSTASIS per A.D.A. criteria. Please note revised GLUCOSE reference range effective 2017. LAB L501.1000 7-18 mg/dL Normal BUN 18 LAB L501.1100 0.55-1.02 mg/dL High CREAT,SERUM 1.04 Result Comment: The validity of the calculated GFR AND GFRAA in patients over 70 years has not been determined. Clinical correlation is essential. LAB L501.1110 >60 mL/min Low EST GFR 55 Result Comment: Non- GFR Calc LAB L501.1115 >60 mL/min Normal EST GFR - AA 67 Result Comment: GFR Calc LAB L501.1255 ml/min Normal Estimated CRCL 35.12 LAB L501.1300 10-20 RATIO Normal BUN/CRE 17.3 LAB L501.2200 8.5-10 mg/dL Normal .1 CA 8.5 LAB L501.5300 136-14 mmol/L Normal 5 NA 144 LAB L501.5600 3.5-5. mmol/L Normal 1 K 4.3 LAB L501.5900 98-107 mmol/L High CL 110 LAB L501.6100 21.0-3 mmol/L Normal 2.0 CO2 24.0 LAB L501.6200 5-15 Normal GAP 10 Performed By: #### L500.2500, L500.4100, L501.2300, L501.5200, L501.9520 #### [facility] [address] [place], [address] LIPID PROFILE Collected: 11/25/2018 Status: F Source: [place] 5:35 AM [facility] REPOSITORY TYPE CODE TESTS RESULT OUT OF RANGE REFERENCE UNITS LAB L501.4900 200 mg/dL Normal CHOL 167 Result Comment: <200 mg/dL Desirable 200-240 mg/dL Borderline >240 mg/dL High Risk LAB L501.5000 mg/dL Normal TRIG 145 Result Comment: The drugs N-Acetylcysteine and Metamizole may falsely depress this assay. Serum Triglycerides Reference Interval Normal <150 mg/dL Borderline high 150 - 199 mg/dL High 200 - 499 mg/dL Very High > or = 500 mg/dL LAB L501.6400 mg/dL Normal HDL 40 Result Comment: The drugs N-Acetylcysteine and Metamizole may falsely depress this assay. Reference Range HDL <40 mg/dL Low HDL Cholesterol HDL >or= 60 mg/dL High HDL Cholesterol LAB L501.6500 0-130 mg/dL Normal LDL 98 LAB L501.6600 5-40 mg/dL Normal VLDL 29 Performed By: #### L500.2500, L500.4100, L501.2300, L501.5200, L501.9520 #### [facility] [address] [place], [place], [address] PHOSPHORUS Collected: 11/25/2018 Status: F Source: [place] 5:35 AM [facility] REPOSITORY TYPE CODE TESTS RESULT OUT OF RANGE REFERENCE UNITS LAB L501.2300 2.5-4.9 mg/dL Normal PHOS 4.1 Performed By: #### L500.2500, L500.4100, L501.2300, L501.5200, L501.9520 #### [facility] [address] [place], [place], [address] MAGNESIUM Collected: 11/25/2018 Status: F Source: [place] 5:35 AM [facility] REPOSITORY TYPE CODE TESTS RESULT OUT OF RANGE REFERENCE UNITS LAB L501.5200 1.6-2.6 mg/dL Normal MG 2.3 Performed By: #### L500.2500, L500.4100, L501.2300, L501.5200, L501.9520 #### [facility] [address] [place], [address] THYROID STIM HORMONE Collected: 11/25/2018 Status: F Source: [place] (TSH) 5:35 AM [facility] REPOSITORY TYPE CODE TESTS RESULT OUT OF RANGE REFERENCE UNITS LAB L501.9520 0.358-3.74 uIU/mL Normal TSH 2.96 Performed By: #### L500.2500, L500.4100, L501.2300, L501.5200, L501.9520 #### [facility] [address] [place], [address] POTASSIUM Collected: 11/24/2018 Status: F Source: [place] 4:40 PM [facility] REPOSITORY TYPE CODE TESTS RESULT OUT OF RANGE REFERENCE UNITS LAB L501.5600 3.5-5.1 mmol/L Normal K 3.7 Performed By: #### L501.5600 #### [facility] [address] [place], [address] TROPONIN-I Collected: 11/24/2018 Status: F Source: [place] 4:40 PM [facility] REPOSITORY Order Comment: 'TROP' Serial specimen #1, #2 or #3: 3 TYPE CODE TESTS RESULT OUT OF RANGE REFERENCE UNITS LAB L501.4010 <0.045 ng/mL Normal < 0.015 TROPONIN-I Result Comment: TROPONIN-I EXPECTED VALUES <0.045 Negative 0.045 - 0.590 Consistent with Cardiac Damage > OR = 0.600 Critical Value Not every elevated troponin is indicative of ID. These values should be used with clinical judgement in examining the patient's clinical picture for diagnosis. To establish a diagnosis of ID versus myocardial injury, there must be a demonstrated rise and/or fall in the troponin values, in addition to ischemic symptoms, EKG changes, new regional wall motion abnormality, and/or angiographical evidence. PLEASE NOTE: REFERENCE RANGES EDITED 18 Performed By: #### L501.4010 #### [facility] [address] [place], [address] HISTORY AND PHYSICAL Observed: 11/24/2018 Status: F Source: [place] EXAM 4:27 PM [facility] REPOSITORY THE [facility] Medical Records Department [address] [place] [address] History and Physical 11/24/18 1352 MR#: [id number] Acct: [id number] Name: TERRI SHEEHAN #: [id number] : 1945 73 From: Cory Walker MD PCP: Andre Mike MD Status: ADM FELIX Y Location: [place] [address] Problem List (1) Atypical chest pain Status: Acute (2) GERD Status: Chronic (3) History of peptic ulcer disease Status: Chronic (4) Hypertension Status: Chronic History of Present Illness Date of Admission: 11/24/18 Chief Complaint: Chest pain the morning today. The patient is a 73 year old F with history of hypertension and GERD, on losartan HCTZ came to ED for chest pain that woke her up from sleep today in the morning. She also had palpitation but denies associated shortness of breath, diaphoresis. Chest pain was left-sided with radiation to left subclavicular region. Prior to that, she is having exertional dyspnea for 2-3 weeks on going upstairs. She has history of GERD and history of peptic ulcer disease for which she is on PPI. In ED, EKG shows normal sinus rhythm at 69 bpm. First 2 troponins are negative. Electrolytes are low including potassium, magnesium, phosphorus and calcium. [] Past Medical History Past Medical History (Chronic Problems): Chronic Problems GERD (Chronic) History of peptic ulcer disease (Chronic) Hypertension (Chronic) Allergies adhesive tape Allergy (Verified 11/24/18 10:09) Itching amlodipine [From Norvasc] Allergy (Verified 11/24/18 10:09) Swelling cat dander Allergy (Verified 11/24/18 10:09) Unknown cigarette smoke Allergy (Verified 11/24/18 10:09) Other metoprolol [From Lopressor] Allergy (Verified 11/24/18 10:09) Unknown nickel Allergy (Verified 11/24/18 10:09) Rash naproxen [From Aleve] Adverse Reaction (Verified 11/24/18 10:09) Nausea/Vom/Diarrhea rofecoxib [From Vioxx] Adverse Reaction (Verified 11/24/18 10:09) Upset Stomach Sulfa (Sulfonamide Antibiotics) Adverse Reaction (Verified 11/24/18 10:09) Other Home Medications: Ambulatory Orders Medication Instructions Recorded Aspirin [Aspir 81] 81 mg PO DAILY 11/24/18 Smoking Status: Former smoker - *Family History Paternal History Items: Heart Disease Sibling History Items: Heart Disease Review of Systems Constitutional: Denies: Chills, Fever, Weight Change HEENT: Denies: Head Aches, Sinus Congestion, Sinus Drainage Cardiovascular: Reports: Chest Pain. Denies: Palpitations Respiratory: Reports: Shortness of breath upon exertion. Denies: Cough, Shortness of breath at rest, Sputum production Gastrointestinal: Denies: Abdominal Pain, Nausea, Vomiting Genitourinary: Denies: Dysuria Musculoskeletal: Denies: Joint Pain, Joint Tenderness Skin: Denies: Rash, Wounds Neurological: Denies: Numbness, Tingling, Focal weakness Psychiatric: Denies: Anxiety, Depression, Homicidal Ideations, Suicidal Ideations Hematologic/ Lymphatic: Denies: Easy Bruising, Easy Bleeding VTE Information - Inpt Only VTE Present on Admission: No VTE Mechan Device Prophylaxis: None VTE Pharm Prophylaxis ordered?: Yes Patient Problems: Active and Suspected Problems Atypical chest pain (Acute) - Physical Exam General: Alert, Oriented x3, Cooperative HEENT: Atraumatic, PERRLA, EOMI, Normocephalic Neck: Supple, No JVD, Negative Carotid Bruits Lungs: Clear to auscultation, Normal air movement Cardiovascular: Regular rate, Regular Rhythm, Normal S1, Normal S2, No murmurs Abdomen: Bowel Sounds Present, Soft, Non Tender, Non-Distended Extremities: No edema, Capillary Refill Less than 3 Seconds Skin: No rashes, No breakdown Musculoskeletal: No Tenderness to Palpation of Joints or Extremities, Arthritic Changes Neurological: Cranial nerves II-XII grossly intact Psych/Mental Status: Normal Affect, Appropriate Vital Signs Temp Pulse Resp BP Pulse Ox 98.8 F 73 16 126/87 H 98 11/24/18 13:10 11/24/18 13:10 11/24/18 13:10 11/24/18 13:10 11/24/18 13:14 Oxygen Flow Rate (L/min) 2 Oxygen Delivery Method Room Air Weight: 183 lb 2 oz Body Mass Index (BMI) 35.7 Laboratory Tests Past 24 Hrs Assessment/Plan All Active Problems Atypical chest pain (Acute) The patient is a 73 year old F with history of hypertension and GERD, on losartan HCTZ came to ED for chest pain that woke her up from sleep today in the morning. She also had palpitation but denies associated shortness of breath, diaphoresis. Chest pain was left-sided with radiation to left subclavicular region. Prior to that, she is having exertional dyspnea for 2-3 weeks on going upstairs. She has history of GERD and history of peptic ulcer disease for which she is on PPI. In ED, EKG shows normal sinus rhythm at 69 bpm. First 2 troponins are negative. Electrolytes are low including potassium, magnesium, phosphorus and calcium. [] 1. Atypical chest pain rule out acute coronary syndrome: Patient had a stress test couple years ago and [place] and was negative. Patient is being admitted to PCU. ACS protocol with cycle cardiac enzymes and nuclear stress test tomorrow morning. Fasting profile tomorrow morning. 2. Electrolytes abnormality, most probably from HCTZ: Hypokalemia, hypomagnesemia, hypocalcemia and hypophosphatemia with hypoalbuminemia: Patient corrected calcium is 8.4 with albumin 2.1. K2.1, magnesium 1.1. Electrolyte replacement ordered. Monitor electrolytes after replacement. 3. GERD and history of PUD: Continue PPI. 4. Borderline dyslipidemia: 5. Hypertension: Blood pressure is controlled. HCTZ is on hold. Laboratory Results 11/24/18 10:20: WBC 3.8 L, RBC 3.76 L, Hgb 10.5 L, Hct 32.9 L, MCV 87.5, MCH 27.9, MCHC 31.9 L, RDW 13.2, RDW Differential 40.9, Plt Count 147 L, MPV 10.2, Immature Gran % (Auto) 0.000, Neut % (Auto) 63.6, Lymph % (Auto) 24.7, [place] % (Auto) 10.6 H, Eos % (Auto) 0.8, Baso % (Auto) 0.3, Absolute Neuts (auto) 2.4, Absolute Lymphs (auto) 0.93, Total Counted Not Reportable 11/24/18 10:20: Sodium 149 H, Potassium 2.1 L*, Chloride 122 H, Carbon Dioxide 18.0 L, Anion Gap 9, BUN 12, Creatinine 0.58, Estim Creat Clear Calc 36.53, Est GFR (MDRD) Af Amer 131, Est GFR (MDRD) Non-Af 108, BUN/Creatinine Ratio 20.6 H, Glucose 80, Calcium 5.4 L*, Troponin I 0.019 11/24/18 10:20: Magnesium 1.1 L, Total Bilirubin 0.30, Direct Bilirubin 0.09, AST 12 L, ALT 15, Alkaline Phosphatase 52, Total Protein 4.5 L, Albumin 2.1 L, Globulin 2.4 11/24/18 10:20: B-Natriuretic Peptide 13.5 11/24/18 10:20: Phosphorus 1.6 L 11/24/18 13:20: Troponin I < 0.015 Clinical Impression(s) from Imaging Studies Chest X-Ray 11/24/18 10:29 IMPRESSION: No acute abnormality is seen. Code Visit OBSV E AND M: [id number] Initial observation care L3 11/24/18 1627 <Electronically signed by Cory Walker MD> Date Cory Walker MD Cosigner Signature: Date (if applicable) CC: Cory Walker MD; Andre Mike MD Signed EMERGENCY DEPARTMENT Observed: 11/24/2018 Status: F Source: [place] SUMMARY 4:04 PM [facility] REPOSITORY [facility] Medical Records Department [address] [place] [address] Emergency Department Summary 11/24/18 1029 MR#: [id number] Acct: [id number] Name: TERRI SHEEHAN Rep #: [id number] : 1945 73 From: Addy Correa MD PCP: Andre Mike MD Status: ADM FELIX - ER Visit Summary Date of Service: 11/24/18 Chief Complaint: Chest pain History of Present Illness: The patient is a 73 F history of hypertension. Patient denies any recent travel, surgery or immobilization. No leg pain or swelling. No hemoptysis. No pleuritic chest pain. No prior history of DVT or PE. Patient states the pain is across her chest and slightly to her left shoulder. States this awoke her from sleep at 6 AM this morning. She has had a recent stress test not done at this facility in the last 3 years which she states was negative. She denies ever having a cardiac catheterization. She herself has no cardiac history but her brother has 8 stents. Her sister and dad both had CAD and bypass surgery. She does state that she gets exertional dyspnea on steps. But not chest pain. She denies any nausea or diaphoresis. She denies any recent illness. Patient thought this may be secondary to anxiety and took a Valium at home without any she has already taken aspirin prior to arrival. Physical Examination: Older female no acute distress. Vital signs are stable. She is afebrile. Pulse ox is 97% on room air no signs of hypoxia. HEENT exam unremarkable. Neck nontender no lymphadenopathy. Lungs clear to auscultation bilaterally. Heart regular rate and rhythm rate about 90. No murmur. Chest wall is nontender. There is no reproducible chest pain. Abdomen is soft and nontender. Normal bowel sounds no peritoneal signs. Patient is moving all 4 extremities. Calves are nontender without edema or cords. Radial pulses are equal and symmetrical. She has normal top installer strength and dorsi and plantar flexion. Back nontender. Neurologic exam no focal motor deficits. Test Results: Notable 1 view chest x-ray shows no acute abnormality. KG sinus rhythm rate of 96 with no acute signs of ID or ischemia. White count 8.8. Hemoglobin 10.5. No old labs available for comparison. Electrolytes show sodium of 149. Potassium 2.1. Chloride of 122. Normal BUN and creatinine and gap. Troponin is normal. Emergency Department Course and Treatment: Patient is already taken aspirin prior to arrival. She will be put through a cardiac chest pain evaluation. Treatment Plan: Repeat exam patient is doing well at 1130. In light that the patient has exertional dyspnea. She has significant risk factors including significant family history of cardiac disease in spite of a recent negative stress test within the last 3 years I do think she needs admission. For her low potassium she has been treated with both IV and p.o. potassium. I have the hospitalist on page. Disposition: Admission Impression: Acute chest pain of uncertain etiology Acute hypokalemia. History of hypertension This note was generated with [employer] dictation software. It may contain incorrect words, spelling, and punctuation that were not noted in review of the chart prior to signing ED Disposition - Plan for ED Patient: Chief Complaint: Chest Pain What to do if you have Problems For any increased pain, shortness of breath, bleeding, nausea or vomiting, chest pain, or any unexpected problems, contact your Primary Care Provider. Call [facility] ([phone]) or report to the closest Emergency Room. Call 911 if necessary. 11/24/18 1604 <Electronically signed by Addy Correa MD> Date Addy Correa MD Cosigner Signature (If Indicated): Date CC: Andre Mike MD TROPONIN-I Collected: 11/24/2018 Status: F Source: [place] 1:20 PM [facility] REPOSITORY Order Comment: 'TROP' Serial specimen #1, #2 or #3: 2 TYPE CODE TESTS RESULT OUT OF RANGE REFERENCE UNITS LAB L501.4010 <0.045 ng/mL Normal < 0.015 TROPONIN-I Result Comment: TROPONIN-I EXPECTED VALUES <0.045 Negative 0.045 - 0.590 Consistent with Cardiac Damage > OR = 0.600 Critical Value Not every elevated troponin is indicative of ID. These values should be used with clinical judgement in examining the patient's clinical picture for diagnosis. To establish a diagnosis of ID versus myocardial injury, there must be a demonstrated rise and/or fall in the troponin values, in addition to ischemic symptoms, EKG changes, new regional wall motion abnormality, and/or angiographical evidence. PLEASE NOTE: REFERENCE RANGES EDITED 18 Performed By: #### L501.4010 #### [facility] [address] [place], [address] PROGRESS Observed: 11/24/2018 Status: COMPLETED Source: [place] 10:44 AM [facility] [place] REPOSITORY HNO ID: [id number] Author: Andre Mike Service: (none) Author Type: Physician Type: Progress Notes Filed: 11/24/2018 10:48 AM Note Text: No chief complaint on file. HPI: Patient presents today for office visit for acute chest pain Sent back with acute chest pain that woke her from sleep this am. Was five out of 10 and has persisted since then. Some shortness of breath. Some slight pain to back and shoulder. No fever or chills or cough. Was placed on 2 L oxygen on arrival and administered a sl nitro and four asa to chew. ekg ordered and squad called. Squad arrived prior to ekg completion. Pain was starting to improve. Report given to squad. MEDICATIONS: Current Outpatient Prescriptions: phenazopyridine (PYRIDIUM) 200 mg tablet Take 1 tablet by mouth three times daily as needed. BIOTIN ORAL Take by mouth. diphenhydrAMINE HCl (CHILDREN'S BENADRYL ALLERGY) 12.5 mg chewable tablet Take 12.5 mg by mouth at bedtime as needed. Omeprazole 40 mg capsule Take 1 capsule by mouth once daily. Losartan-Hydrochlorothiazide 100-12.5 mg per tablet Take 1 tablet by mouth once daily. cloNIDine HCl (CATAPRES) 0.1 mg tablet Take 1 tablet by mouth daily at bedtime. UBIDECARENONE (COQ-10 ORAL) Take by mouth. KRILL OIL ORAL Take by mouth. MAGNESIUM OXIDE/MAGNESIUM (MAGNESIUM, OXIDE/AA CHELATE, ORAL) Take by mouth. VIT C/VIT E/LUTEIN/MIN/OMEGA-3 (OCUVITE ORAL) Take by mouth. diazePAM (VALIUM) 2 mg tablet Take 1 tablet by mouth three times daily as needed. aspirin, enteric coated (ECOTRIN LOW STRENGTH) 81 mg EC tablet Take 1 tablet by mouth once daily. nitroglycerin sublingual (NITROQUICK) 0.4 mg SL tablet Dissolve 1 tablet under the tongue as needed. FOR CHEST PAIN. IF NO RELIEF CALL 911 Cholecalciferol, Vitamin D3, (VITAMIN D) 1,000 unit cap Take 1,000 Units by mouth once daily. Current Facility-Administered Medications: nitroglycerin sublingual 0.4 mg tab(s) (NITROQUICK) 0.4 mg SUBLINGUAL ONCE aspirin 324 mg chewable tab(s) 324 mg ORAL ONCE ALLERGIES: ALLERGIES Allergen Reactions - Cigarette Smoke [Ot* Cough, Itching, Shortness of Breath - Adhesive Tape (Deyanira* Itching - Aleve [Naproxen Sod* GI Upset - Cats - Lopressor [Metoprol* Mental Status Change - Nickel Rash - Norvasc [Amlodipine* Swelling Swelling to feet and ankles - Sulfa (Sulfonamide * severe headache - Vioxx [Rofecoxib] GI Upset PAST MEDICAL HISTORY Diagnosis Date - Arrhythmia - Benign neoplasm of colon - Calculus of kidney - Chest pain, unspecified non cardiac - Esophageal reflux - Esophagitis, unspecified - History of recurrent UTIs - HYPERLIPIDEMIA NEC/NOS 03/16/2009 - HYPERTENSION NOS 03/10/2008 - Mental disorder - Osteopenia BMD 12/12/2011 PAST SURGICAL HISTORY Procedure Laterality Date - COLONOS W/REM POLYP SNARE 02/05/12 repeat 5 years - COLONOSCOP W/ OR W/O BRSH SPEC 01/11/16 Colonoscopy - COLONOSCOPY - EGD 02/05/12 - EGD W/O OR W/BRUSH/WASH 10/16/2008 EGD - EGD W/O OR W/BRUSH/WASH 01/11/16 EGD - LYSIS ADNEXAL ADHESIONS x6 - OOPHORECTOMY, PART/TOTAL UNILAT/BILAT bilateral salpingectomy and left oophorectomy - TOTAL ABDOM HYSTERECTOMY 1970 endometriosis, change in ovary, right oophorectomy FAMILY HISTORY Problem Relation Age of Onset - Hypertension Mother - other (macular degeneration) Mother - Coronary Artery Disease Father - Stroke Father - Coronary Artery Disease Sister - Coronary Artery Disease Brother - Ischemic Heart Disease Paternal Grandfather - other (Peripheral Vascular Disease) Sister - Hypertension Sister - Hypertension Sister - Hypertension Brother - Hypertension Son Social History Marital status: Spouse name: Years of education: Number of children: 3 Occupational History Occupation Employer Comment [employer] Social History Main Topics Smoking status: Former Smoker Packs/day: 1.50 Years: 20.00 Types: Cigarettes Quit date: 11/09/1980 Smokeless tobacco: Never Used Comment: up to 3 PPD Alcohol use: No Drug use: No Sexual activity: Yes Partners with: Male control/protection: Surgical Social History Narrative 2 sons, 1 daughter. Lives by self. Reviewed current medications, allergies, past medical history, surgical history, family history and social history today. REVIEW OF SYSTEMS All other reviewed and negative other than HPI. VITALS: BP 152/90 Pulse (!) 131 SpO2 92% Last 4 Encounter Wt Readings: Date: Wt: 10/01/2018 85.3 kg (188 lb) 07/22/2018 83.5 kg (184 lb) 08/18/2017 84.4 kg (186 lb) 04/03/2017 83 kg (183 lb) PHYSICAL EXAMINATION: General appearance: alert, anxious. Skin: Skin color, texture, turgor normal, no suspicious rashes or lesions Lungs: lungs clear to auscultation. No wheezing, rhonchi, rales Heart: RRR without murmur, gallop, or rubs. No ectopy Abdomen: Normal abdominal exam, Abdomen soft, non-tender. Bowel sounds normal. No masses, organomegaly Extremities: No deformities, edema, skin discoloration, clubbing or cyanosis. Good capillary refill. ASSESSMENT/PLAN: 1. Chest pain, unspecified type - ICD9: 786.50, ICD10: R07.9 -transported via squad to ER - NITROGLYCERIN 0.4 MG SUBLINGUAL TABLET - ASPIRIN 81 MG CHEWABLE TABLET Andre Mike MD CBC W/DIFF, AUTOMATED Collected: 11/24/2018 Status: F Source: [place] 10:20 AM [facility] REPOSITORY TYPE CODE TESTS RESULT OUT OF RANGE REFERENCE UNITS LAB L100.1000 4.4-11.0 K/mm3 Low WBC 3.8 LAB L100.1200 4.2-5.4 M/mm3 Low RBC 3.76 LAB L100.1300 12.0-15.0 g/dl Low HGB 10.5 LAB L100.1400 37-47 % Low HCT 32.9 LAB L100.1500 81-99 fL Normal MCV 87.5 LAB L100.1600 27.0-32.0 pg Normal MCH 27.9 LAB L100.1700 32-36 g/gl Low MCHC 31.9 LAB L100.1810 11.6-14.6 % Normal RDW CV 13.2 LAB L100.1820 35.1-43.9 fl Normal RDW SD 40.9 LAB L100.1900 150-450 K/mm3 Low PLT 147 LAB L100.2000 6.2-12.0 fl Normal MPV 10.2 LAB L100.2100 47-70 % Normal NEUT% 63.6 LAB L100.2200 19-41 % Normal LY% 24.7 LAB L100.2300 0-10 % High MONO% 10.6 LAB L100.2400 0-5 % Normal EO% 0.8 LAB L100.2500 0-1 % Normal BASO% 0.3 LAB L100.2550 0.0-0.9 % Normal IM GRAN % 0.000 Result Comment: IG% - Immature Granulocytes (promyelocytes, myelocytes and metamyelocytes) > 1% indicates that a LEFT SHIFT is Present. LAB L100.2620 2.0-7.7 X10 3/uL Normal Absolute Neut 2.4 LAB L100.2720 0.83-4.51 X10 3/ul Normal Absolute Lymph 0.93 Performed By: #### L100.0100 #### [facility] [address] [place], [address] BASIC METABOLIC Collected: 11/24/2018 Status: F Source: [place] PROFILE (BMP) 10:20 AM [facility] REPOSITORY TYPE CODE TESTS RESULT OUT OF RANGE REFERENCE UNITS LAB L501.0100 74-106 mg/dL Normal GLU 80 Result Comment: Please note revised GLUCOSE reference range effective 2017. LAB L501.1000 7-18 mg/dL Normal BUN 12 LAB L501.1100 0.55-1.02 mg/dL Normal CREAT,SERUM 0.58 Result Comment: The validity of the calculated GFR AND GFRAA in patients over 70 years has not been determined. Clinical correlation is essential. LAB L501.1110 >60 mL/min Normal EST GFR 108 Result Comment: Non- GFR Calc LAB L501.1115 >60 mL/min Normal EST GFR - AA 131 Result Comment: GFR Calc LAB L501.1255 ml/min Normal Estimated CRCL 36.53 LAB L501.1300 10-20 RATIO High BUN/CRE 20.6 LAB L501.2200 8.5-10 mg/dL Low .1 CA alert 5.4 Result Comment: Critical Result(s) Called at: 11:03:40 11/24/2018 by: Cristela Green LAB L501.5300 136-145 mmol/L High NA 149 LAB L501.5600 3.5-5.1 mmol/L Low alert K 2.1 Result Comment: Critical Result(s) Called at: 11:03:29 11/24/2018 by: Cristela Green LAB L501.5900 98-107 mmol/L High CL 122 LAB L501.6100 21.0-32.0 mmol/L Low CO2 18.0 LAB L501.6200 5-15 Normal 9 GAP Performed By: #### L500.2500, L501.4010 #### [facility] [address] [place], [place], [address] TROPONIN-I Collected: 11/24/2018 Status: F Source: [place] 10:20 AM [facility] REPOSITORY TYPE CODE TESTS RESULT OUT OF RANGE REFERENCE UNITS LAB L501.4010 <0.045 ng/mL Normal 0.019 TROPONIN-I Result Comment: TROPONIN-I EXPECTED VALUES <0.045 Negative 0.045 - 0.590 Consistent with Cardiac Damage > OR = 0.600 Critical Value Not every elevated troponin is indicative of ID. These values should be used with clinical judgement in examining the patient's clinical picture for diagnosis. To establish a diagnosis of ID versus myocardial injury, there must be a demonstrated rise and/or fall in the troponin values, in addition to ischemic symptoms, EKG changes, new regional wall motion abnormality, and/or angiographical evidence. PLEASE NOTE: REFERENCE RANGES EDITED 18 Performed By: #### L500.2500, L501.4010 #### [facility] [address] [facility] [place], [place], [address] LIVER PROFILE Collected: 11/24/2018 Status: F Source: [place] 10:20 AM [facility] REPOSITORY TYPE CODE TESTS RESULT OUT OF RANGE REFERENCE UNITS LAB L501.1500 6.4-8.2 g/dL Low T PROT 4.5 LAB L501.1800 3.2-5.0 g/dL Low ALB 2.1 LAB L501.1950 2.2-4.2 g/dL Normal GLOB 2.4 LAB L501.4100 15-37 U/L Low AST 12 LAB L501.4305 45-117 U/L Normal ALK P 52 LAB L501.4405 13-56 U/L Normal ALT 15 LAB L501.4600 0.20-1.00 mg/dL Normal T BILI 0.30 LAB L501.4700 0.00-0.30 mg/dL Normal D BILI 0.09 Performed By: #### L500.3400, L501.5200 #### [facility] [address] [place], [address] MAGNESIUM Collected: 11/24/2018 Status: F Source: [place] 10:20 AM [facility] REPOSITORY TYPE CODE TESTS RESULT OUT OF RANGE REFERENCE UNITS LAB L501.5200 1.6-2.6 mg/dL Low MG 1.1 Performed By: #### L500.3400, L501.5200 #### [facility] [address] [facility] [address] [place], [address] PHOSPHORUS Collected: 11/24/2018 Status: F Source: [place] 10:20 AM [facility] REPOSITORY TYPE CODE TESTS RESULT OUT OF RANGE REFERENCE UNITS LAB L501.2300 2.5-4.9 mg/dL Low PHOS 1.6 Performed By: #### L501.2300 #### [facility] [address] [place], [address] BNP,B-TYPE NATRIURETIC Collected: 11/24/2018 Status: F Source: [place]PT[place] 10:20 AM [facility] REPOSITORY TYPE CODE TESTS RESULT OUT OF RANGE REFERENCE UNITS LAB L503.6620 0-100 pg/mL Normal B-TYPE 13.5 MARISEL PEP Performed By: #### L503.6620 #### [facility] [address] [place], [address] CHEST 1 VIEW Observed: 11/24/2018 Status: F Source: [place] (PORTABLE) 10:19 AM [facility] REPOSITORY [facility] Imaging Services [address] [place] [address] Chest 1 View (Portable) MR#: [id number] Acct: [id number] Name: TERRI SHEEHAN Rep #: [id number] : 1945 73 From: Art Dias MD PCP: Status: PRE ER Study: Chest 1 View (Portable) Date of Exam: 11/24/18 Exam# [id number] Ordering Dr: Addy Correa MD STUDY: X-RAY CHEST REASON FOR EXAM: Female, 73 years old. Chest pain. TECHNIQUE: Single AP portable view of the chest. COMPARISON: None. FINDINGS: EKG electrodes are seen. Mild elevation of the right hemidiaphragm. Scattered calcified granulomas. There is no demonstrated pleural abnormality. Normal size heart. Normal mediastinum and zenaida. Normal visualized pulmonary arteries. There is atherosclerotic tortuosity of the aortic arch and descending thoracic aorta. There are degenerative changes of the visualized thoracic spine. Normal visualized ribs, clavicles, and shoulders. There is no demonstrated abnormality of the visualized soft tissue structures of the upper abdomen. RAD/Chest 1 View (Portable) IMPRESSION: No acute abnormality is seen. Electronically Signed: Art Dias MD at 10:45 EST Tel [phone], Service support , CC: Addy Correa MD Pillowcase Maker: Signed KERRYOV Observed: 11/24/2018 Status: COMPLETED Source: [place] 9:40 AM [facility] REPOSITORY [facility] TERRI SHEEHAN ([id number]) 1945 F Date Time Provider Department 11/24/18 9:40 AM ANDRE [facility] During your visit today, we recorded the following information about you: Pulse Blood pressure 131/minute 152/90 Juliann Dietrich Ma 11/24/2018 10:37 AM Signed Replaced By [facility], [facility] and Remote Sites Emergency Response Form. NOT TO BE USED AT [facility] Complete this report when the Emergency Medical Response is activated (911 calls/EmergencyTransport to the ED) or when a Code Sheet is utilized in the care of a patient (i.e., ASC) Date of the Event: 11/24/18 (Must provide Value) Time of the Event:9:37 am (Must provide Value) Was emergency response activated? (Local EMS/Emergency Department) YES (Must provide Value) Location of the Incident: [facility] ([facility]) (Must provide Value) Reason/Chief Complaint for Emergency Call (Check all that apply): Chest Pain/Pressure (Must provide Value) CPR Initiated-Chest Compressions and/or Rescue Breathing Provided: NO (Must provide value) Facility AED Used-Automatic External Defibrillator: NO (Must provide value) EMS AED Used-Automatic External Defibrillator: NO (Must provide value) Prior to EMS arrival, was any treatment administered? YES Describe treatment 4 tablets of 81 mg ASA (lot# [id number])and 1 Nitro(lot#[id number]) given at 9:38 am, along with 2 liters of oxygen Patient Disposition: Transferred to Hospital ED (Must provide value) Hospital Admitting Clerk information: Name of Provider- Juliann Dietrich Ma (Must provide value) Andre Mike MD 11/24/2018 10:48 AM Signed No chief complaint on file. HPI: Patient presents today for office visit for acute chest pain Sent back with acute chest pain that woke her from sleep this am. Was five out of 10 and has persisted since then. Some shortness of breath. Some slight pain to back and shoulder. No fever or chills or cough. Was placed on 2 L oxygen on arrival and administered a sl nitro and four asa to chew. ekg ordered and squad called. Squad arrived prior to ekg completion. Pain was starting to improve. Report given to squad. MEDICATIONS: Current Outpatient Prescriptions: phenazopyridine (PYRIDIUM) 200 mg tablet Take 1 tablet by mouth three times daily as needed. BIOTIN ORAL Take by mouth. diphenhydrAMINE HCl (CHILDREN'S BENADRYL ALLERGY) 12.5 mg chewable tablet Take 12.5 mg by mouth at bedtime as needed. Omeprazole 40 mg capsule Take 1 capsule by mouth once daily. Losartan-Hydrochlorothiazide 100-12.5 mg per tablet Take 1 tablet by mouth once daily. cloNIDine HCl (CATAPRES) 0.1 mg tablet Take 1 tablet by mouth daily at bedtime. UBIDECARENONE (COQ-10 ORAL) Take by mouth. KRILL OIL ORAL Take by mouth. MAGNESIUM OXIDE/MAGNESIUM (MAGNESIUM, OXIDE/AA CHELATE, ORAL) Take by mouth. VIT C/VIT E/LUTEIN/MIN/OMEGA-3 (OCUVITE ORAL) Take by mouth. diazePAM (VALIUM) 2 mg tablet Take 1 tablet by mouth three times daily as needed. aspirin, enteric coated (ECOTRIN LOW STRENGTH) 81 mg EC tablet Take 1 tablet by mouth once daily. nitroglycerin sublingual (NITROQUICK) 0.4 mg SL tablet Dissolve 1 tablet under the tongue as needed. FOR CHEST PAIN. IF NO RELIEF CALL 911 Cholecalciferol, Vitamin D3, (VITAMIN D) 1,000 unit cap Take 1,000 Units by mouth once daily. Current Facility-Administered Medications: nitroglycerin sublingual 0.4 mg tab(s) (NITROQUICK) 0.4 mg SUBLINGUAL ONCE aspirin 324 mg chewable tab(s) 324 mg ORAL ONCE ALLERGIES: ALLERGIES Allergen Reactions - Cigarette Smoke [Ot* Cough, Itching, Shortness of Breath - Adhesive Tape (Deyanira* Itching - Aleve [Naproxen Sod* GI Upset - Cats - Lopressor [Metoprol* Mental Status Change - Nickel Rash - Norvasc [Amlodipine* Swelling Swelling to feet and ankles - Sulfa (Sulfonamide * severe headache - Vioxx [Rofecoxib] GI Upset PAST MEDICAL HISTORY Diagnosis Date - Arrhythmia - Benign neoplasm of colon - Calculus of kidney - Chest pain, unspecified non cardiac - Esophageal reflux - Esophagitis, unspecified - History of recurrent UTIs - HYPERLIPIDEMIA NEC/NOS 03/16/2009 - HYPERTENSION NOS 03/10/2008 - Mental disorder - Osteopenia BMD 12/12/2011 PAST SURGICAL HISTORY Procedure Laterality Date - COLONOS W/REM POLYP SNARE 02/05/12 repeat 5 years - COLONOSCOP W/ OR W/O BRSH SPEC 01/11/16 Colonoscopy - COLONOSCOPY - EGD 02/05/12 - EGD W/O OR W/BRUSH/WASH 10/16/2008 EGD - EGD W/O OR W/BRUSH/WASH 01/11/16 EGD - LYSIS ADNEXAL ADHESIONS x6 - OOPHORECTOMY, PART/TOTAL UNILAT/BILAT bilateral salpingectomy and left oophorectomy - TOTAL ABDOM HYSTERECTOMY 1970 endometriosis, change in ovary, right oophorectomy FAMILY HISTORY Problem Relation Age of Onset - Hypertension Mother - other (macular degeneration) Mother - Coronary Artery Disease Father - Stroke Father - Coronary Artery Disease Sister - Coronary Artery Disease Brother - Ischemic Heart Disease Paternal Grandfather - other (Peripheral Vascular Disease) Sister - Hypertension Sister - Hypertension Sister - Hypertension Brother - Hypertension Son Social History Marital status: Spouse name: Years of education: Number of children: 3 Occupational History 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 Lives by self. Reviewed current medications, allergies, past medical history, surgical history, family history and social history today. REVIEW OF SYSTEMS All other reviewed and negative other than HPI. VITALS: BP 152/90 Pulse (!) 131 SpO2 92% Last 4 Encounter Wt Readings: Date: Wt: 10/01/2018 85.3 kg (188 lb) 07/22/2018 83.5 kg (184 lb) 08/18/2017 84.4 kg (186 lb) 04/03/2017 83 kg (183 lb) PHYSICAL EXAMINATION: General appearance: alert, anxious. Skin: Skin color, texture, turgor normal, no suspicious rashes or lesions Lungs: lungs clear to auscultation. No wheezing, rhonchi, rales Heart: RRR without murmur, gallop, or rubs. No ectopy Abdomen: Normal abdominal exam, Abdomen soft, non-tender. Bowel sounds normal. No masses, organomegaly Extremities: No deformities, edema, skin discoloration, clubbing or cyanosis. Good capillary refill. ASSESSMENT/PLAN: 1. Chest pain, unspecified type - ICD9: 786.50, ICD10: R07.9 -transported via squad to ER - NITROGLYCERIN 0.4 MG SUBLINGUAL TABLET - ASPIRIN 81 MG CHEWABLE TABLET Andre Mike MD Referring Provider: SELF [200] Allergies As of Date: 11/24/2018 Noted Allergy Reaction cigarette smoke [Other] 03/16/2012 3 - Cough 9 - Itching 12 - Shortness of Breath ADHESIVE TAPE (ROSINS) 07/13/2014 9 - Itching ALEVE (NAPROXEN SODIUM) 10/21/2005 8 - GI Upset CATS 05/21/2010 LOPRESSOR (METOPROLOL TARTRATE) 09/03/2005 1 - Mental Status Change NICKEL 04/25/2014 2 - Rash NORVASC (AMLODIPINE BESYLATE) 01/08/2017 7 - Swelling Comments: Swelling to feet and ankles SULFA (SULFONAMIDE ANTIBIOTICS) 09/03/2005 Comments: severe headache VIOXX (ROFECOXIB) 09/03/2005 8 - GI Upset Date Reviewed: 10/01/2018 Reviewed by: Elissa Do Ma - Fully Assessed Primary Visit Diagnosis:Chest pain, unspecified type [R07.9] Order(s):[] nitroglycerin sublingual 0.4 mg tab(s) (NITROQUICK)Disp: Rfl: [] aspirin 324 mg chewable tab(s)Disp: Rfl: Prescriptions as of 11/24/2018 Sig: PHENAZOPYRIDINE 200 MG TABLET Take 1 tablet by mouth three * BIOTIN ORAL Take by mouth. DIPHENHYDRAMINE 12.5 MG CHEWA* Take 12.5 mg by mouth at bedt* OMEPRAZOLE 40 MG CAPSULE,DEVAN* Take 1 capsule by mouth once * LOSARTAN 100 MG-HYDROCHLOROTH* Take 1 tablet by mouth once d* CLONIDINE HCL 0.1 MG TABLET Take 1 tablet by mouth daily * COQ-10 ORAL Take by mouth. KRILL OIL ORAL Take by mouth. MAGNESIUM (OXIDE/AA CHELATE) * Take by mouth. OCUVITE ORAL Take by mouth. DIAZEPAM 2 MG TABLET Take 1 tablet by mouth three * ASPIRIN 81 MG TABLET,DELAYED * Take 1 tablet by mouth once d* NITROGLYCERIN 0.4 MG SUBLINGU* Dissolve 1 tablet under the t* CHOLECALCIFEROL (VITAMIN D3) * Take 1,000 Units by mouth onc* Problem List As Of Date 11/24/2018 Noted Resolved BENIGN HYPERTENSION [I10] INVALID FOR*03/10/2008 LIPOMA NOS [D17.9] INVALID FOR* PERIPHERAL VERTIGO NOS [H81.399] INVALID FOR* Nonallopathic lesion of rib cage, not elsewhere*INVALID FOR*02/12/2017 Essential hypertension [I10] INVALID FOR* Otalgia, unspecified [H92.09] INVALID FOR*02/12/2017 Hypopotassemia [E87.6] INVALID FOR*02/12/2017 ESOPHAGEAL REFLUX [K21.9] ESOPHAGITIS, UNSPECIFIED [K20.9] INVALID FOR*03/16/2009 Sciatica [M54.30] INVALID FOR*02/12/2017 Mixed hyperlipidemia [E78.2] INVALID FOR* Depression [F32.9] INVALID FOR* Nocturnal Muscle Cramps [R25.2] INVALID FOR* Fatigue [R53.83] INVALID FOR* Obesity [E66.9] INVALID FOR* Osteopenia [M85.80] More... 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 NOT TO BE USED AT [facility] Complete this report when the Emergency Medical Response is activated (911 calls/EmergencyTransport to the ED) or when a Code Sheet is utilized in the care of a patient (i.e., ASC) Date of the Event: 11/24/18 (Must provide Value) Time of the Event:9:37 am (Must provide Value) Was emergency response activated? (Local EMS/Emergency Department) YES (Must provide Value) Location of the Incident: [facility] ([facility]) (Must provide Value) Reason/Chief Complaint for Emergency Call (Check all that apply): Chest Pain/Pressure (Must provide Value) CPR Initiated-Chest Compressions and/or Rescue Breathing Provided: NO (Must provide value) Facility AED Used-Automatic External Defibrillator: NO (Must provide value) EMS AED Used-Automatic External Defibrillator: NO (Must provide value) Prior to EMS arrival, was any treatment administered? YES Describe treatment 4 tablets of 81 mg ASA (lot# [id number])and 1 Nitro(lot#[id number]) given at 9:38 am, along with 2 liters of oxygen Patient Disposition: Transferred to Hospital ED (Must provide value) Hospital Admitting Clerk information: Name of Provider- Juliann Dietrich Ma (Must provide value) Prescriptions ordered this encounter Disp Refills Start End NITROGLYCERIN 0.4 MG SUBLINGUAL TABL* 11/24/2018 11/24/2018 Route: SUBLINGUAL ASPIRIN 81 MG CHEWABLE TABLET 11/24/2018 11/24/2018 Route: ORAL Encounter Status:Closed by ANDRE MIKE MD on 11/24/18 URINALYSIS WITH Collected: 11/24/2018 Status: F Source: [facility] 9:25 AM [facility] REPOSITORY TYPE CODE TESTS RESULT OUT OF RANGE REFERENCE UNITS LAB UCOL Yellow Color Yellow LAB [facility] Clear Clarity Clear LAB UGLUC Negative mg/dL Glucose, Urine Negative LAB UBIL Negative Bilirubin, Urine Negative LAB UKET Negative Ketones, Urine Negative LAB USPG 1.005-1.030 Specific [place], Ur 1.010 LAB UHGB Negative Abnormal Hemoglobin/Blood, 1+ Alert Ur LAB UPH 4.5-8.0 pH 7.0 LAB UPROT Negative mg/dL Protein, Urine Negative LAB UUROB Normal Urobilinogen Normal LAB UNITR Negative Nitrites Negative LAB ULKEST Negative Leukest Abnormal Trace Alert LAB UCOM Comments SEE COMMENT Result Comment: N/A LAB UMCOM Urine SEE Reji Comment COMMENT Result Comment: N/A LAB UWBC 0-5 /HPF WBC 0-5 LAB URBC 0-3 /HPF RBC 0-3 LAB UEPI /HPF Epithelial SEE Cells COMMENT Result Comment: Few Squamous Epithelial Cells Few Non-Squamous Epithelial Cells Performed By: #### UAWMIC #### [facility] [address] [place], [place] [address] CBC AND DIFFERENTIAL Collected: 11/24/2018 Status: F Source: [place] 9:22 AM [facility] REPOSITORY TYPE CODE TESTS RESULT OUT OF REFERENCE UNITS RANGE LAB WBC 3.70-11.00 k/uL WBC 5.13 LAB RBC 3.90-5.20 m/uL RBC High 5.44 LAB HGB 11.5-15.5 g/dL Hemoglobin 15.1 LAB HCT 36.0-46.0 % High Hematocrit 48.0 LAB MCV 80.0-100.0 fL MCV 88.2 LAB MCH 26.0-34.0 pG MCH 27.8 LAB MCHC 30.5-36.0 g/dL MCHC 31.5 LAB RDWCV 11.5-15.0 % RDW-CV 13.0 LAB PLTCT 150-400 k/uL Platelet Count 211 LAB MPV 9.0-12.7 fL MPV 10.7 LAB ANEUT % Neut% 64.8 LAB AANEUT 1.45-7.50 k/uL Abs Neut 3.32 LAB ALYMP % Lymph% 24.6 LAB AALYMP 1.00-4.00 k/uL Abs Lymph 1.26 LAB AMONO % [place]% 9.0 LAB AAMONO <0.87 k/uL Abs [place] 0.46 LAB AEOS % Eosin% 1.2 LAB AAEOS <0.46 k/uL Abs Eosin 0.06 LAB ABASO % Baso% 0.4 LAB AABASO <0.11 k/uL Abs Baso <0.03 LAB AUNRBC 0 /100 WBC NRBCs 0.0 LAB ABNRBC <0.01 k/uL Absolute nRBC <0.01 LAB DTYP DTYPE Auto Diff Performed By: #### CBCDIF, HBA1C, CMP, LIPB #### [facility] [address] [place], [place] [address] HEMOGLOBIN A1C Collected: 11/24/2018 Status: F Source: [place] 9:22 AM [facility] REPOSITORY TYPE CODE TESTS RESULT OUT OF REFERENCE UNITS RANGE LAB HGBA1C 4.3-5.6 % High Hemoglobin A1c 5.8 Result Comment: [place] Diabetes Association guidelines indicate that patients with HgbA1c in the range 5.7-6.4% are at increased risk for development of diabetes, and intervention by lifestyle modification may be beneficial. HgbA1c greater or equal to 6.5% is considered diagnostic of diabetes. LAB HBA0 mg/dL Est. Average Glucose 120 Result Comment: eAG: (Estimated average glucose) is a calculated value from HgbA1c and is apprenticeship representative of the average blood glucose level in the last 2-3 month period. Performed By: #### CBCDIF, HBA1C, CMP, LIPB #### [facility] [address] [place], [place] [address] COMP METABOLIC PANEL Collected: 11/24/2018 Status: F Source: [place] 9:22 AM [facility] REPOSITORY TYPE CODE TESTS RESULT OUT OF REFERENCE UNITS RANGE LAB TP 6.3-8.0 g/dL Protein, Total 7.8 LAB ALB 3.9-4.9 g/dL Albumin 4.2 LAB CA 8.5-10.2 mg/dL Calcium, Total 9.8 LAB TBIL 0.2-1.3 mg/dL Bilirubin, Total 0.5 LAB ALKP 34-123 U/L Alkaline Phosphatase 86 LAB AST 13-35 U/L AST 21 LAB GLU 74-99 mg/dL Glucose High 116 Result Comment: The [place] Diabetes Association (ADA) provides guidance for cutoff values for fasting glucose and random glucose. The ADA defines fasting as no caloric intake for at least 8 hours. Fas ting plasma glucose results between 100 to 125 mg/dL indicate increased risk for diabetes (prediabetes). Fasting plasma glucose results greater than or equal to 126 mg/dL meet the criteria for diagnosis of diabetes. In the absence of unequivocal hyperglycemia, results should be confirmed by repeat testing. In a patient with classic symptoms of hyperglycemia or hyperglycemic crisis, random plasma glucose results greater than or equal to 200 mg/dL meet the criteria for diagnosis of diabetes. Reference: Standards of Medical Care in Diabetes 2016, [place] Diabetes Association. Diabetes Care. 2016.39(Suppl 1). LAB BUN 7-21 mg/dL BUN 18 LAB CRET 0.58-0.96 mg/dL Creatinine High 1.18 LAB NA 136-144 mmol/L Sodium 141 LAB K 3.7-5.1 mmol/L Potassium 3.9 LAB CL 97-105 mmol/L Chloride 101 LAB CO2 22-30 mmol/L CO2 27 LAB AGAP 9-18 mmol/L Anion Gap 13 LAB ALT 7-38 U/L ALT 18 LAB GFRAA eGFR- Amer. 54 LAB GFRNAA . eGFR-All Other Races 45 Result Comment: eGFR (Estimated GFR) Units of measure: mL/min/1.73 meters squared eGFR is derived from the reexpressed MDRD Study equation using the following parameters: serum creatinine, age, gender and race. The creatinine assay has been calibrated to be traceable to IDMS. An eGFR <60 mL/min/1.73m2 for >3 months is consistent with chronic kidney disease. Refer to KDOQI guidelines for clinical interpretation. In patients with unstable renal function, e.g. those with acute kidney injury, the eGFR may not accurately reflect actual GFR. Performed By: #### CBCDIF, HBA1C, CMP, LIPB #### [facility] [address] [place] [id number] LIPID PANEL, BASIC Collected: 11/24/2018 Status: F Source: [place] 9:22 AM [facility] [place] REPOSITORY TYPE CODE TESTS RESULT OUT OF REFERENCE UNITS RANGE LAB CHOL <200 mg/dL Cholesterol 199 Result Comment: <200 mg/dL, Desirable 200-239 mg/dL, Borderline high >239 mg/dL, High LAB TRIGLY <150 mg/dL Triglyceride 83 Result Comment: <150 mg/dL, Normal 150-199 mg/dL, Borderline high 200-499 mg/dL, High >499 mg/dL, Very high LAB HDL >39 mg/dL HDL-Cholesterol 50 Result Comment: 40-59 mg/dL, Acceptable >59 mg/dL, High: Negative risk factor for coronary heart disease <40 mg/dL, Low: Positive risk factor for coronary heart disease LAB LDL <100 mg/dL LDL-Cholesterol High 132 Result Comment: <100 mg/dL, Optimal 100-129 mg/dL, Near optimal/above optimal 130-159 mg/dL, Borderline high 160-189 mg/dL, High >189 mg/dL, Very high Secondary prevention optimal LDL Cholesterol levels are recommended to be < 70 mg/dL LAB NONHDL <130 mg/dL Non HDL High Cholesterol 149 Result Comment: <130 mg/dL, Optimal 130-159 mg/dL, Near optimal/above optimal 160-189 mg/dL, Borderline high 190-219 mg/dL, High >219 mg/dL, Very high Secondary prevention optimal non HDL Cholesterol levels are recommended to be < 100 mg/dL LAB FT hrs Fasting Time 12 LAB VLDL <30 mg/dL VLDL Cholesterol 17 LAB TCHDL <5.10 TC:HDL Ratio 3.98 LAB LDLHDL <2.54 High LDL:HDL Ratio 2.64 Result Comment: Reference: 1. National Cholesterol Education Program ATP III Guideline At-A-Glance Quick Desk Reference: National Heart, Lung, and Blood [place]. National Institutes of Health. 2001: NIH Publication No. 01-3305. 2. An International Atherosclerosis Society position paper: global recommendations for the management of dyslipidemia: executive summary, Atherosclerosis. 2014: 232(2):410-413. Performed By: #### CBCDIF, HBA1C, CMP, LIPB #### [facility] [employer] [address] [place], [place] [address] Observed: 10/01/2018 Status: F Source: [place] URINE CULTURE 3:00 PM [facility] REPOSITORY Sp. Request/Comment: - Specimen received in preservative Culture Result - 10,000 - <50,000 CFU/ml Escherichia coli --> ABNORMAL ALERT ORGANISM: Escherichia coli METHOD: Minimum inhibitory concentration(Vitek) Antibiotic Interp REJI Status Ampicillin SUSCEPTIBLE <=2 F Gentamicin SUSCEPTIBLE <=1 F Trimeth sulfameth SUSCEPTIBLE <=20 F Cefazolin SUSCEPTIBLE <=4 F CLSI breakpoints for therapy of uncomplicated UTI's due to E.coli, K.pneumoniae, and P.mirabilis were applied and may be used to predict the activity of oral agents(cefaclor, cefdinir, cefpodoxime, cefp rozil, cefuroxime, cephalexin, loracarbef). Ciprofloxacin SUSCEPTIBLE <=0.25 F Nitrofurantoin SUSCEPTIBLE <=16 F Cefepime SUSCEPTIBLE <=1 F Piperacillin/Tazobac SUSCEPTIBLE <=4 F Ampicillin Sulbact SUSCEPTIBLE <=2 F Ceftriaxone SUSCEPTIBLE <=1 F Meropenem SUSCEPTIBLE <=0.25 F Ertapenem SUSCEPTIBLE <=0.5 F Performed By: #### URCUL #### [facility] [employer] [address], [place] [address] PROGRESS Observed: 10/01/2018 Status: COMPLETED Source: [place] 2:32 PM [facility] REPOSITORY HNO ID: [id number] Author: Amy Moya Service: (none) Author Type: Physician [employer] Type: Progress Notes Filed: 10/01/2018 3:40 PM Note Text: 10/01/2018 Patient presents with: Dysuria: burning and pelvic pressure x this am SUBJECTIVE: This is a 72 year old that is here today for Complaint(s) of dysuria x this morning. + increased urinary frequency. + right flank pain. Denies fever/chill, hematuria, nausea, vomiting, abdominal pain. Patient does have a PMH kidney stones. PMH appendectomy PAST MEDICAL HISTORY Diagnosis Date - Arrhythmia - Benign neoplasm of colon - Calculus of kidney - Chest pain, unspecified non cardiac - Esophageal reflux - Esophagitis, unspecified - History of recurrent UTIs - HYPERLIPIDEMIA NEC/NOS 03/16/2009 - HYPERTENSION NOS 03/10/2008 - Mental disorder - Osteopenia BMD 12/12/2011 ALLERGIES Cigarette Smoke [Other]; Adhesive Tape (Rosins); Aleve [Naproxen Sodium]; Cats; Lopressor [Metoprolol Tartrate]; Nickel; Norvasc [Amlodipine Besylate]; Sulfa (Sulfonamide Antibiotics); Vioxx [Rofecoxib] MEDICATIONS Current Outpatient Prescriptions: BIOTIN ORAL Take by mouth. diphenhydrAMINE HCl (CHILDREN'S BENADRYL ALLERGY) 12.5 mg chewable tablet Take 12.5 mg by mouth at bedtime as needed. Omeprazole 40 mg capsule Take 1 capsule by mouth once daily. Losartan-Hydrochlorothiazide 100-12.5 mg per tablet Take 1 tablet by mouth once daily. cloNIDine HCl (CATAPRES) 0.1 mg tablet Take 1 tablet by mouth daily at bedtime. UBIDECARENONE (COQ-10 ORAL) Take by mouth. KRILL OIL ORAL Take by mouth. MAGNESIUM OXIDE/MAGNESIUM (MAGNESIUM, OXIDE/AA CHELATE, ORAL) Take by mouth. VIT C/VIT E/LUTEIN/MIN/OMEGA-3 (OCUVITE ORAL) Take by mouth. diazePAM (VALIUM) 2 mg tablet Take 1 tablet by mouth three times daily as needed. aspirin, enteric coated (ECOTRIN LOW STRENGTH) 81 mg EC tablet Take 1 tablet by mouth once daily. nitroglycerin sublingual (NITROQUICK) 0.4 mg SL tablet Dissolve 1 tablet under the tongue as needed. FOR CHEST PAIN. IF NO RELIEF CALL 911 Cholecalciferol, Vitamin D3, (VITAMIN D) 1,000 unit cap Take 1,000 Units by mouth once daily. No current facility-administered medications for this visit. 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 Lives by self. REVIEW OF SYSTEMS All other reviewed and negative other than HPI. OBJECTIVE: BP 132/86 Pulse 74 Temp 36.3 ?C (97.4 ?F) (Tympanic) Resp 16 Wt 85.3 kg (188 lb) BMI 35.52 kg/m? APPEARANCE Well appearing, alert, in no acute distress, well-hydrated, well nourished. ABDOMEN soft, mild right lower abdominal TTP. No rebound, rigidity or guarding. non-distended, without organomegaly or palpable masses, no tenderness to palpation BACK: Normal exam, no CVA TTP ASSESSMENT/PLAN: 1. Dysuria - ICD9: 788.1, ICD10: R30.0 acute - UA positive for remi esterase and hematuria - Send urine for culture - Begin treatment with Macrobid 100 mg BID for 7 days - Patient education for prevention given - UA DIP, URINE (POC) - URINE CULTURE - NITROFURANTOIN MONOHYDRATE AND MACROCRYSTAL 100 MG ORAL CAP - PHENAZOPYRIDINE 200 MG TABLET The patient indicates understanding of these issues and agrees with the plan. Reviewed red flags and when to seek care sooner in ER AMAN Kam Observed: 10/01/2018 Status: COMPLETED Source: [place] 2:15 PM [facility] REPOSITORY Office Visit ([facility]) TERRI SHEEHAN ([id number]) 1945 F Date Time Provider Department 10/01/18 2:15 PM AMY MOYA) [facility] During your visit today, we recorded the following information about you: Temperature Pulse Respiration Blood pressure 97.4 degrees 74/minute 16/minute 132/86 Weight 85.3 kg Amy Moya PA-C 10/01/2018 3:40 PM Signed 10/01/2018 Patient presents with: Dysuria: burning and pelvic pressure x this am SUBJECTIVE: This is a 72 year old that is here today for Complaint(s) of dysuria x this morning. + increased urinary frequency. + right flank pain. Denies fever/chill, hematuria, nausea, vomiting, abdominal pain. Patient does have a PMH kidney stones. PMH appendectomy PAST MEDICAL HISTORY Diagnosis Date - Arrhythmia - Benign neoplasm of colon - Calculus of kidney - Chest pain, unspecified non cardiac - Esophageal reflux - Esophagitis, unspecified - History of recurrent UTIs - HYPERLIPIDEMIA NEC/NOS 03/16/2009 - HYPERTENSION NOS 03/10/2008 - Mental disorder - Osteopenia BMD 12/12/2011 ALLERGIES Cigarette Smoke [Other]; Adhesive Tape (Rosins); Aleve [Naproxen Sodium]; Cats; Lopressor [Metoprolol Tartrate]; Nickel; Norvasc [Amlodipine Besylate]; Sulfa (Sulfonamide Antibiotics); Vioxx [Rofecoxib] MEDICATIONS Current Outpatient Prescriptions: BIOTIN ORAL Take by mouth. diphenhydrAMINE HCl (CHILDREN'S BENADRYL ALLERGY) 12.5 mg chewable tablet Take 12.5 mg by mouth at bedtime as needed. Omeprazole 40 mg capsule Take 1 capsule by mouth once daily. Losartan-Hydrochlorothiazide 100-12.5 mg per tablet Take 1 tablet by mouth once daily. cloNIDine HCl (CATAPRES) 0.1 mg tablet Take 1 tablet by mouth daily at bedtime. UBIDECARENONE (COQ-10 ORAL) Take by mouth. KRILL OIL ORAL Take by mouth. MAGNESIUM OXIDE/MAGNESIUM (MAGNESIUM, OXIDE/AA CHELATE, ORAL) Take by mouth. VIT C/VIT E/LUTEIN/MIN/OMEGA-3 (OCUVITE ORAL) Take by mouth. diazePAM (VALIUM) 2 mg tablet Take 1 tablet by mouth three times daily as needed. aspirin, enteric coated (ECOTRIN LOW STRENGTH) 81 mg EC tablet Take 1 tablet by mouth once daily. nitroglycerin sublingual (NITROQUICK) 0.4 mg SL tablet Dissolve 1 tablet under the tongue as needed. FOR CHEST PAIN. IF NO RELIEF CALL 911 Cholecalciferol, Vitamin D3, (VITAMIN D) 1,000 unit cap Take 1,000 Units by mouth once daily. No current facility-administered medications for this visit. SOCIAL HISTORY Social History Marital status: Spouse name: Years of education: Number of children: 3 Occupational History 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 Lives by self. REVIEW OF SYSTEMS All other reviewed and negative other than HPI. OBJECTIVE: BP 132/86 Pulse 74 Temp 36.3 ?C (97.4 ?F) (Tympanic) Resp 16 Wt 85.3 kg (188 lb) BMI 35.52 kg/m? APPEARANCE Well appearing, alert, in no acute distress, well- hydrated, well nourished. ABDOMEN soft, mild right lower abdominal TTP. No rebound, rigidity or guarding. non-distended, without organomegaly or palpable masses, no tenderness to palpation BACK: Normal exam, no CVA TTP ASSESSMENT/PLAN: 1. Dysuria - ICD9: 788.1, ICD10: R30.0 acute - UA positive for remi esterase and hematuria - Send urine for culture - Begin treatment with Macrobid 100 mg BID for 7 days - Patient education for prevention given - UA DIP, URINE (POC) - URINE CULTURE - NITROFURANTOIN MONOHYDRATE AND MACROCRYSTAL 100 MG ORAL CAP - PHENAZOPYRIDINE 200 MG TABLET The patient indicates understanding of these issues and agrees with the plan. Reviewed red flags and when to seek care sooner in ER Amy Moya PA-C Referring Provider: SELF [[id number]] Allergies As of Date: 10/01/2018 Noted Allergy Reaction cigarette smoke [Other] 03/16/2012 3 - Cough 9 - Itching 12 - Shortness of Breath ADHESIVE TAPE (ROSINS) 07/13/2014 9 - Itching ALEVE (NAPROXEN SODIUM) 10/21/2005 8 - GI Upset CATS 05/21/2010 LOPRESSOR (METOPROLOL TARTRATE) 09/03/2005 1 - Mental Status Change NICKEL 04/25/2014 2 - Rash NORVASC (AMLODIPINE BESYLATE) 01/08/2017 7 - Swelling Comments: Swelling to feet and ankles SULFA (SULFONAMIDE ANTIBIOTICS) 09/03/2005 Comments: severe headache VIOXX (ROFECOXIB) 09/03/2005 8 - GI Upset Date Reviewed: 10/01/2018 Reviewed by: Elissa Do Ma - Fully Assessed Reason for Visit: Dysuria [1085] Cmt: burning and pelvic pressure x this am Primary Visit Diagnosis:Dysuria [R30.0] Order(s):UA DIP, URINE (POC) [7340901] Order #: [id number] #:[id number] URINE CULTURE [SQURCUL] Order #: [id number] nitrofurantoin monohydrate and macrocrystal (MACROBID) 100 mg capsuleTake 1 capsule by mouth twice daily with meals for 7 days.Disp: 14 capsuleRfl: 0 phenazopyridine (PYRIDIUM) 200 mg tabletTake 1 tablet by mouth three times daily as needed.Disp: 6 tabletRfl: 0 Prescriptions as of 10/01/2018 Sig: BIOTIN ORAL Take by mouth. DIPHENHYDRAMINE 12.5 MG CHEWA* Take 12.5 mg by mouth at bedt* OMEPRAZOLE 40 MG CAPSULE,DEVAN* Take 1 capsule by mouth once * LOSARTAN 100 MG-HYDROCHLOROTH* Take 1 tablet by mouth once d* CLONIDINE HCL 0.1 MG TABLET Take 1 tablet by mouth daily * COQ-10 ORAL Take by mouth. KRILL OIL ORAL Take by mouth. MAGNESIUM (OXIDE/AA CHELATE) * Take by mouth. OCUVITE ORAL Take by mouth. DIAZEPAM 2 MG TABLET Take 1 tablet by mouth three * ASPIRIN 81 MG TABLET,DELAYED * Take 1 tablet by mouth once d* NITROGLYCERIN 0.4 MG SUBLINGU* Dissolve 1 tablet under the t* CHOLECALCIFEROL (VITAMIN D3) * Take 1,000 Units by mouth onc* NITROFURANTOIN MONOHYDRATE AND * Take 1 capsule by mouth twice* PHENAZOPYRIDINE 200 MG TABLET Take 1 tablet by mouth three * Problem List As Of Date 10/01/2018 Noted Resolved BENIGN HYPERTENSION [I10] INVALID FOR*03/10/2008 LIPOMA NOS [D17.9] INVALID FOR* PERIPHERAL VERTIGO NOS [H81.399] INVALID FOR* Nonallopathic lesion of rib cage, not elsewhere*INVALID FOR*02/12/2017 Essential hypertension [I10] INVALID FOR* Otalgia, unspecified [H92.09] INVALID FOR*02/12/2017 Hypopotassemia [E87.6] INVALID FOR*02/12/2017 ESOPHAGEAL REFLUX [K21.9] ESOPHAGITIS, UNSPECIFIED [K20.9] INVALID FOR*03/16/2009 Sciatica [M54.30] INVALID FOR*02/12/2017 Mixed hyperlipidemia [E78.2] INVALID FOR* Depression [F32.9] INVALID FOR* Nocturnal Muscle Cramps [R25.2] INVALID FOR* Fatigue [R53.83] INVALID FOR* Obesity [E66.9] INVALID FOR* Osteopenia [M85.80] More... 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 PHENAZOPYRIDINE 200 MG TABLET 6 ta* 0 10/01/2018 Route: ORAL Sig: Take 1 tablet by mouth three times daily as needed. Encounter Status:Closed by AMY MOYA PA-C on 10/01/18 CNCO Observed: 07/26/2018 Status: COMPLETED Source: [place] 12:00 AM [facility] [place] REPOSITORY Letter Text Andre Mike MD [facility] Terri Sheehan [address] [facility] [address] Clinic #: [id number] 07/26/2018 Dear Ms. Sheehan, I have received the results of your recent tests. The results of your Urine Culture tests were either normal or within the acceptable range. We can discuss this at your next visit. Please do not hesitate to contact me with any questions. Sincerely, Andre Mike MD [facility] Department electronically signed to expedite mailing Letter Text Andre Mike MD [facility] Terri Sheehan [address] [facility] [address] [facility] #: [id number] 07/26/2018 Dear Ms. Sheehan, I have received the results of your recent tests. The results of your Urine Culture tests were either normal or within the acceptable range. We can discuss this at your next visit. Please do not hesitate to contact me with any questions. Sincerely, Andre Mike MD [facility] Department electronically signed to expedite mailing Observed: 07/22/2018 Status: F Source: [place] URINE CULTURE 4:02 PM [facility] REPOSITORY Sp. Request/Comment: - Specimen received in preservative Culture Result - <10,000 CFU/ml Three or more organisms, no one type predominant, suggesting contamination during collection. Recollect if clinically indicated. Performed By: #### URCUL #### [facility] [address] [place], [place] [address] PROGRESS Observed: 07/22/2018 Status: COMPLETED Source: [place] 3:37 PM [facility] REPOSITORY HNO ID: [id number] Author: Andre Mike Service: (none) Author Type: Physician Type: Progress Notes Filed: 07/22/2018 4:30 PM Note Text: Patient presents with: UTI Refill Request HPI: Patient presents today for office visit for follow up. Nursing Notes: Juliann Dietrich Ma 07/22/2018 3:13 PM Signed Urology: patient is concerned about urinary symptoms. Duration of symptoms: 2 weeks Dysuria: Pt states that she is having a burning sensation before she urinates. Urinary urgency: Yes. Urinary frequency: Yes. Suprapubic pain: Mostly pressure. Back pain: Yes. Fever: No. Nausea: Yes. Vomiting: No. Component Latest Ref Rng AND Units 07/22/2018 Glucose, Urine Neg mg/dL neg Bilirubin, Urine Neg neg Ketones, Urine Neg neg Specific [place], Ur 1.005 - 1.030 1.005 Hemoglobin/Blood,Ur Neg trace pH, Urine 4.5 - 8.0 6.0 Protein, Urine Neg mg/dL neg Urobilinogen, Urine Normal (<1.1) EU normal Nitrites Neg neg Leukocytes Neg trace Color/Appearance comment: yellow/clear Quality Check yes/no Yes Pain in her right lower back. Does have a hx of kidney stones. No gross hematuria. HYPERTENSION:feeling well with meds. No chest pain or shortness of breath. No edema. She wonders about her am bp. She feels a little lightheadedness. GERD:does get occasional nausea at night. PSYCH: emotionally doing well. Has not had to use valium in some time. PDMP website checked and validated. All prescriptions have been APPROPRIATELY filled. No suspicious activity was identified. 07/22/2018 by Andre Mike MD MEDICATIONS: Current Outpatient Prescriptions: BIOTIN ORAL Take by mouth. diphenhydrAMINE HCl (CHILDREN'S BENADRYL ALLERGY) 12.5 mg chewable tablet Take 12.5 mg by mouth at bedtime as needed. Omeprazole 40 mg capsule Take 1 capsule by mouth once daily. UBIDECARENONE (COQ-10 ORAL) Take by mouth. KRILL OIL ORAL Take by mouth. VIT C/VIT E/LUTEIN/MIN/OMEGA-3 (OCUVITE ORAL) Take by mouth. Losartan-Hydrochlorothiazide 100-12.5 mg per tablet Take 1 tablet by mouth once daily. cloNIDine HCl (CATAPRES) 0.1 mg tablet Take 1 tablet by mouth daily at bedtime. diazePAM (VALIUM) 2 mg tablet Take 1 tablet by mouth three times daily as needed. aspirin, enteric coated (ECOTRIN LOW STRENGTH) 81 mg EC tablet Take 1 tablet by mouth once daily. nitroglycerin sublingual (NITROQUICK) 0.4 mg SL tablet Dissolve 1 tablet under the tongue as needed. FOR CHEST PAIN. IF NO RELIEF CALL 911 Cholecalciferol, Vitamin D3, (VITAMIN D) 1,000 unit cap Take 1,000 Units by mouth once daily. MAGNESIUM OXIDE/MAGNESIUM (MAGNESIUM, OXIDE/AA CHELATE, ORAL) Take by mouth. No current facility-administered medications for this visit. ALLERGIES: ALLERGIES Allergen Reactions - Cigarette Smoke [Ot* Cough, Itching, Shortness of Breath - Adhesive Tape (Deyanira* Itching - Aleve [Naproxen Sod* GI Upset - Cats - Lopressor [Metoprol* Mental Status Change - Nickel Rash - Norvasc [Amlodipine* Swelling Swelling to feet and ankles - Sulfa (Sulfonamide * severe headache - Vioxx [Rofecoxib] GI Upset PAST MEDICAL HISTORY Diagnosis Date - Arrhythmia - Benign neoplasm of colon - Calculus of kidney - Chest pain, unspecified non cardiac - Esophageal reflux - Esophagitis, unspecified - History of recurrent UTIs - HYPERLIPIDEMIA NEC/NOS 03/16/2009 - HYPERTENSION NOS 03/10/2008 - Mental disorder - Osteopenia BMD 12/12/2011 PAST SURGICAL HISTORY Procedure Laterality Date - COLONOS W/REM POLYP SNARE 02/05/12 repeat 5 years - COLONOSCOP W/ OR W/O BRSH SPEC 01/11/16 Colonoscopy - COLONOSCOPY - EGD 02/05/12 - EGD W/O OR W/BRUSH/WASH 10/16/2008 EGD - EGD W/O OR W/BRUSH/WASH 01/11/16 EGD - LYSIS ADNEXAL ADHESIONS x6 - OOPHORECTOMY, PART/TOTAL UNILAT/BILAT bilateral salpingectomy and left oophorectomy - TOTAL ABDOM HYSTERECTOMY 1970 endometriosis, change in ovary, right oophorectomy FAMILY HISTORY Problem Relation Age of Onset - Hypertension Mother - other (macular degeneration) Mother - Coronary Artery Disease Father - Stroke Father - Coronary Artery Disease Sister - Coronary Artery Disease Brother - Ischemic Heart Disease Paternal Grandfather - other (Peripheral Vascular Disease) Sister - Hypertension Sister - Hypertension Sister - Hypertension Brother - Hypertension Son Social History Marital status: Spouse name: Years of education: Number of children: 3 Occupational History Occupation Employer Comment [employer]* Social History Main Topics Smoking status: Former Smoker Packs/day: 1.50 Years: 20.00 Types: Cigarettes Quit date: 11/09/1980 Smokeless tobacco: Never Used Comment: up to 3 PPD Alcohol use: No Drug use: No Sexual activity: Yes Partners with: Male control/protection: Surgical Social History Narrative 2 sons, 1 daughter. Lives by self. Reviewed current medications, allergies, past medical history, surgical history, family history and social history today. REVIEW OF SYSTEMS All other reviewed and negative other than HPI. HEALTH MAINTENANCE: Reviewed health maintenance issues today and recommended the following in detail. ADULT PREVNAR-13 -rec INFLUENZA-declines MAMMOGRAM due on 08/18/2018 VITALS: BP 132/80 Pulse 60 Resp 18 Wt 83.5 kg (184 lb) BMI 34.77 kg/m? Last 4 Encounter Wt Readings: Date: Wt: 07/22/2018 83.5 kg (184 lb) 08/18/2017 84.4 kg (186 lb) 04/03/2017 83 kg (183 lb) 01/09/2017 83.9 kg (185 lb) PHYSICAL EXAMINATION: General appearance: Well appearing, alert, in no acute distress, well-hydrated, well nourished. Skin: Skin color, texture, turgor normal, no suspicious rashes or lesions Head: Normocephalic, no masses, lesions, tenderness or abnormalities Neck: Supple, no adenopathy; thyroid symmetric, normal size, no bruits Lungs: Lungs clear to auscultation. No wheezing, rhonchi, rales Heart: RRR without murmur, gallop, or rubs. No ectopy Abdomen: Normal abdominal exam, Abdomen soft, non-tender. Bowel sounds normal. No masses, organomegaly Extremities: No deformities, edema, skin discoloration, clubbing or cyanosis. Good capillary refill. Mild right sided back pain on palpation. Not really cva rebound tenderness ASSESSMENT/PLAN: 1. Dysuria - ICD9: 788.1, ICD10: R30.0 (primary diagnosis) acute - UA positive for remi esterase and hematuria - Patient education for prevention given - UA DIP B/O - URINE CULTURE - URINALYSIS WITH MICROSCOPIC - NITROFURANTOIN MONOHYDRATE AND MACROCRYSTAL 100 MG ORAL CAP 2. CKD (chronic kidney disease) stage 3, GFR 30-59 ml/min ([facility]) - ICD9: 585.3, ICD10: N18.3 - Continue to follow labs. - COMP METABOLIC PANEL - CBC + DIFF 3. Gastroesophageal reflux disease without esophagitis - ICD9: 530.81, ICD10: K21.9 - stable. 4. Prediabetes - ICD9: 790.29, ICD10: R73.03 - check labs. - LIPID PANEL BASIC - HGB A1C 5. Depression, unspecified depression type - ICD9: 311, ICD10: F32.9 - doing well. 6. Essential hypertension - ICD9: 401.9, ICD10: I10 - good control - Continue current medication(s) - Goal of BP <140/90 7. Acute cystitis with hematuria - ICD9: 595.0, ICD10: N30.01 - treat with macrobid. Recheck urine in two weeks. - URINALYSIS WITH MICROSCOPIC 8. Right flank pain - ICD9: 789.09, ICD10: R10.9 - call if any issues. 9. Need for vaccination - ICD9: V05.9, ICD10: Z23 - PNEUMOCOCCAL-13 VACCINE PCV-13 10. Screening breast examination - ICD9: V76.10, ICD10: Z12.31 - GRANT SCREENING 11. Screening for colon cancer - ICD9: V76.51, ICD10: Z12.11 - FECAL OCCULT BLOOD TEST 12. Gastroesophageal reflux disease, esophagitis presence not specified - ICD9: 530.81, ICD10: K21.9 - OMEPRAZOLE 40 MG CAPSULE,DELAYED RELEASE - CLONIDINE HCL 0.1 MG TABLET 13. Essential hypertension with goal blood pressure less than 140/90 - ICD9: 401.9, ICD10: I10 - OMEPRAZOLE 40 MG CAPSULE,DELAYED RELEASE - LOSARTAN 100 MG-HYDROCHLOROTHIAZIDE 12.5 MG TABLET - CLONIDINE HCL 0.1 MG TABLET Andre Mike MD RTO in six months and prn. CNOV Observed: 07/22/2018 Status: COMPLETED Source: [place] 3:00 PM [facility] REPOSITORY [facility] TERRI SHEEHAN ([id number]) 1945 F Date Time Provider Department 07/22/18 3:00 PM ANDRE MIKE During your visit today, we recorded the following information about you: Pulse Respiration Blood pressure Weight 60/minute 18/minute 132/80 83.5 kg Juliann Dietrich Ma 07/22/2018 3:13 PM Signed Urology: patient is concerned about urinary symptoms. Duration of symptoms: 2 weeks Dysuria: Pt states that she is having a burning sensation before she urinates. Urinary urgency: Yes. Urinary frequency: Yes. Suprapubic pain: Mostly pressure. Back pain: Yes. Fever: No. Nausea: Yes. Vomiting: No. Andre Mike MD 07/22/2018 4:30 PM Signed Patient presents with: UTI Refill Request HPI: Patient presents today for office visit for follow up. Nursing Notes: Juliann Dietrich Ma 07/22/2018 3:13 PM Signed Urology: patient is concerned about urinary symptoms. Duration of symptoms: 2 weeks Dysuria: Pt states that she is having a burning sensation before she urinates. Urinary urgency: Yes. Urinary frequency: Yes. Suprapubic pain: Mostly pressure. Back pain: Yes. Fever: No. Nausea: Yes. Vomiting: No. Component Latest Ref Rng AND Units 07/22/2018 Glucose, Urine Neg mg/dL neg Bilirubin, Urine Neg neg Ketones, Urine Neg neg Specific [place], Ur 1.005 - 1.030 1.005 Hemoglobin/Blood,Ur Neg trace pH, Urine 4.5 - 8.0 6.0 Protein, Urine Neg mg/dL neg Urobilinogen, Urine Normal (<1.1) EU normal Nitrites Neg neg Leukocytes Neg trace Color/Appearance comment: yellow/clear Quality Check yes/no Yes Pain in her right lower back. Does have a hx of kidney stones. No gross hematuria. HYPERTENSION:feeling well with meds. No chest pain or shortness of breath. No edema. She wonders about her am bp. She feels a little lightheadedness. GERD:does get occasional nausea at night. PSYCH: emotionally doing well. Has not had to use valium in some time. PDMP website checked and validated. All prescriptions have been APPROPRIATELY filled. No suspicious activity was identified. 07/22/2018 by Andre Mike MD MEDICATIONS: Current Outpatient Prescriptions: BIOTIN ORAL Take by mouth. diphenhydrAMINE HCl (CHILDREN'S BENADRYL ALLERGY) 12.5 mg chewable tablet Take 12.5 mg by mouth at bedtime as needed. Omeprazole 40 mg capsule Take 1 capsule by mouth once daily. UBIDECARENONE (COQ-10 ORAL) Take by mouth. KRILL OIL ORAL Take by mouth. VIT C/VIT E/LUTEIN/MIN/OMEGA-3 (OCUVITE ORAL) Take by mouth. Losartan-Hydrochlorothiazide 100-12.5 mg per tablet Take 1 tablet by mouth once daily. cloNIDine HCl (CATAPRES) 0.1 mg tablet Take 1 tablet by mouth daily at bedtime. diazePAM (VALIUM) 2 mg tablet Take 1 tablet by mouth three times daily as needed. aspirin, enteric coated (ECOTRIN LOW STRENGTH) 81 mg EC tablet Take 1 tablet by mouth once daily. nitroglycerin sublingual (NITROQUICK) 0.4 mg SL tablet Dissolve 1 tablet under the tongue as needed. FOR CHEST PAIN. IF NO RELIEF CALL 911 Cholecalciferol, Vitamin D3, (VITAMIN D) 1,000 unit cap Take 1,000 Units by mouth once daily. MAGNESIUM OXIDE/MAGNESIUM (MAGNESIUM, OXIDE/AA CHELATE, ORAL) Take by mouth. No current facility-administered medications for this visit. ALLERGIES: ALLERGIES Allergen Reactions - Cigarette Smoke [Ot* Cough, Itching, Shortness of Breath - Adhesive Tape (Deyanira* Itching - Aleve [Naproxen Sod* GI Upset - Cats - Lopressor [Metoprol* Mental Status Change - Nickel Rash - Norvasc [Amlodipine* Swelling Swelling to feet and ankles - Sulfa (Sulfonamide * severe headache - Vioxx [Rofecoxib] GI Upset PAST MEDICAL HISTORY Diagnosis Date - Arrhythmia - Benign neoplasm of colon - Calculus of kidney - Chest pain, unspecified non cardiac - Esophageal reflux - Esophagitis, unspecified - History of recurrent UTIs - HYPERLIPIDEMIA NEC/NOS 03/16/2009 - HYPERTENSION NOS 03/10/2008 - Mental disorder - Osteopenia BMD 12/12/2011 PAST SURGICAL HISTORY Procedure Laterality Date - COLONOS W/REM POLYP SNARE 02/05/12 repeat 5 years - COLONOSCOP W/ OR W/O BRSH SPEC 01/11/16 Colonoscopy - COLONOSCOPY - EGD 02/05/12 - EGD W/O OR W/BRUSH/WASH 10/16/2008 EGD - EGD W/O OR W/BRUSH/WASH 01/11/16 EGD - LYSIS ADNEXAL ADHESIONS x6 - OOPHORECTOMY, PART/TOTAL UNILAT/BILAT bilateral salpingectomy and left oophorectomy - TOTAL ABDOM HYSTERECTOMY 1969 endometriosis, change in ovary, right oophorectomy FAMILY HISTORY Problem Relation Age of Onset - Hypertension Mother - other (macular degeneration) Mother - Coronary Artery Disease Father - Stroke Father - Coronary Artery Disease Sister - Coronary Artery Disease Brother - Ischemic Heart Disease Paternal Grandfather - other (Peripheral Vascular Disease) Sister - Hypertension Sister - Hypertension Sister - Hypertension Brother - Hypertension Son Social History Marital status: Spouse name: Years of education: Number of children: 3 Occupational History Occupation Employer Comment [employer]* Social History Main Topics Smoking status: Former Smoker Packs/day: 1.50 Years: 20.00 Types: Cigarettes Quit date: 11/09/1980 Smokeless tobacco: Never Used Comment: up to 3 PPD Alcohol use: No Drug use: No Sexual activity: Yes Partners with: Male control/protection: Surgical Social History Narrative 2 sons, 1 daughter. Lives by self. Reviewed current medications, allergies, past medical history, surgical history, family history and social history today. REVIEW OF SYSTEMS All other reviewed and negative other than HPI. HEALTH MAINTENANCE: Reviewed health maintenance issues today and recommended the following in detail. ADULT PREVNAR-13 -rec INFLUENZA-declines MAMMOGRAM due on 08/18/2018 VITALS: BP 132/80 Pulse 60 Resp 18 Wt 83.5 kg (184 lb) BMI 34.77 kg/m? Last 4 Encounter Wt Readings: Date: Wt: 07/22/2018 83.5 kg (184 lb) 08/18/2017 84.4 kg (186 lb) 04/03/2017 83 kg (183 lb) 01/09/2017 83.9 kg (185 lb) PHYSICAL EXAMINATION: General appearance: Well appearing, alert, in no acute distress, well-hydrated, well nourished. Skin: Skin color, texture, turgor normal, no suspicious rashes or lesions Head: Normocephalic, no masses, lesions, tenderness or abnormalities Neck: Supple, no adenopathy; thyroid symmetric, normal size, no bruits Lungs: Lungs clear to auscultation. No wheezing, rhonchi, rales Heart: RRR without murmur, gallop, or rubs. No ectopy Abdomen: Normal abdominal exam, Abdomen soft, non-tender. Bowel sounds normal. No masses, organomegaly Extremities: No deformities, edema, skin discoloration, clubbing or cyanosis. Good capillary refill. Mild right sided back pain on palpation. Not really cva rebound tenderness ASSESSMENT/PLAN: 1. Dysuria - ICD9: 788.1, ICD10: R30.0 (primary diagnosis) acute - UA positive for remi esterase and hematuria - Patient education for prevention given - UA DIP B/O - URINE CULTURE - URINALYSIS WITH MICROSCOPIC - NITROFURANTOIN MONOHYDRATE AND MACROCRYSTAL 100 MG ORAL CAP 2. CKD (chronic kidney disease) stage 3, GFR 30-59 ml/min ([facility]) - ICD9: 585.3, ICD10: N18.3 - Continue to follow labs. - COMP METABOLIC PANEL - CBC + DIFF 3. Gastroesophageal reflux disease without esophagitis - ICD9: 530.81, ICD10: K21.9 - stable. 4. Prediabetes - ICD9: 790.29, ICD10: R73.03 - check labs. - LIPID PANEL BASIC - HGB A1C 5. Depression, unspecified depression type - ICD9: 311, ICD10: F32.9 - doing well. 6. Essential hypertension - ICD9: 401.9, ICD10: I10 - good control - Continue current medication(s) - Goal of BP <140/90 7. Acute cystitis with hematuria - ICD9: 595.0, ICD10: N30.01 - treat with macrobid. Recheck urine in two weeks. - URINALYSIS WITH MICROSCOPIC 8. Right flank pain - ICD9: 789.09, ICD10: R10.9 - call if any issues. 9. Need for vaccination - ICD9: V05.9, ICD10: Z23 - PNEUMOCOCCAL-13 VACCINE PCV-13 10. Screening breast examination - ICD9: V76.10, ICD10: Z12.31 - GRANT SCREENING 11. Screening for colon cancer - ICD9: V76.51, ICD10: Z12.11 - FECAL OCCULT BLOOD TEST 12. Gastroesophageal reflux disease, esophagitis presence not specified - ICD9: 530.81, ICD10: K21.9 - OMEPRAZOLE 40 MG CAPSULE,DELAYED RELEASE - CLONIDINE HCL 0.1 MG TABLET 13. Essential hypertension with goal blood pressure less than 140/90 - ICD9: 401.9, ICD10: I10 - OMEPRAZOLE 40 MG CAPSULE,DELAYED RELEASE - LOSARTAN 100 MG-HYDROCHLOROTHIAZIDE 12.5 MG TABLET - CLONIDINE HCL 0.1 MG TABLET Andre Mike MD RTO in six months and prn. Andre Mike MD 07/22/2018 3:43 PM Signed Check bp in am for several days. Send me list on Thursday Referring Provider: SELF [[id number]] Allergies As of Date: 07/22/2018 Noted Allergy Reaction cigarette smoke [Other] 03/16/2012 3 - Cough 9 - Itching 12 - Shortness of Breath ADHESIVE TAPE (ROSINS) 07/13/2014 9 - Itching ALEVE (NAPROXEN SODIUM) 10/21/2005 8 - GI Upset CATS 05/21/2010 LOPRESSOR (METOPROLOL TARTRATE) 09/03/2005 1 - Mental Status Change NICKEL 04/25/2014 2 - Rash NORVASC (AMLODIPINE BESYLATE) 01/08/2017 7 - Swelling Comments: Swelling to feet and ankles SULFA (SULFONAMIDE ANTIBIOTICS) 09/03/2005 Comments: severe headache VIOXX (ROFECOXIB) 09/03/2005 8 - GI Upset Date Reviewed: 07/22/2018 Reviewed by: Juliann Dietrich Ma - Fully Assessed Reason for Visit: UTI [116] Refill Request [94] Primary Visit Diagnosis:Dysuria [R30.0] Other Visit Diagnoses:CKD (chronic kidney disease) stage 3, GFR 30-59 ml/min (HCC) [N18.3] Gastroesophageal reflux disease without esophagitis [K21.9] Prediabetes [R73.03] Depression, unspecified depression type [F32.9] Essential hypertension [I10] Acute cystitis with hematuria [N30.01] Right flank pain [R10.9] Need for vaccination [Z23] Screening breast examination [Z12.31] Screening for colon cancer [Z12.11] Gastroesophageal reflux disease, esophagitis presence not specified [K21.9] Essential hypertension with goal blood pressure less than 140/90 [I10] Order(s):UA DIP B/O [[id number]] Order #: [id number] URINE CULTURE [SQURCUL] Order #: [id number] PNEUMOCOCCAL-13 VACCINE PCV-13 [99033SQA] Order #: [id number] GRANT SCREENING [[id number]] Order #: [id number] FUTURE URINALYSIS WITH MICROSCOPIC [SQUAWMIC] Order #: [id number] FUTURE FECAL OCCULT BLOOD TEST [SQIFOBT] Order #: [id number] FUTURE COMP METABOLIC PANEL [SQCMP] Order #: [id number] FUTURE LIPID PANEL BASIC [SQLIPB] Order #: [id number] FUTURE HGB A1C [VMNMH1Q] Order #: [id number] FUTURE CBC + DIFF [SQCBCDIF] Order #: [id number] FUTURE nitrofurantoin monohydrate and macrocrystal (MACROBID) 100 mg capsuleTake 1 capsule by mouth twice daily with meals for 7 days.Disp: 14 capsuleRfl: 0 Omeprazole 40 mg capsuleTake 1 capsule by mouth once daily.Disp: 90 capsuleRfl: 1 Losartan-Hydrochlorothiazide 100-12.5 mg per tabletTake 1 tablet by mouth once daily.Disp: 90 tabletRfl: 3 cloNIDine HCl (CATAPRES) 0.1 mg tabletTake 1 tablet by mouth daily at bedtime.Disp: 90 tabletRfl: 3 Prescriptions as of 07/22/2018 Sig: BIOTIN ORAL Take by mouth. DIPHENHYDRAMINE 12.5 MG CHEWA* Take 12.5 mg by mouth at bedt* OMEPRAZOLE 40 MG CAPSULE,DEVAN* Take 1 capsule by mouth once * LOSARTAN 100 MG-HYDROCHLOROTH* Take 1 tablet by mouth once d* CLONIDINE HCL 0.1 MG TABLET Take 1 tablet by mouth daily * COQ-10 ORAL Take by mouth. KRILL OIL ORAL Take by mouth. OCUVITE ORAL Take by mouth. DIAZEPAM 2 MG TABLET Take 1 tablet by mouth three * ASPIRIN 81 MG TABLET,DELAYED * Take 1 tablet by mouth once d* NITROGLYCERIN 0.4 MG SUBLINGU* Dissolve 1 tablet under the t* CHOLECALCIFEROL (VITAMIN D3) * Take 1,000 Units by mouth onc* NITROFURANTOIN MONOHYDRATE AND * Take 1 capsule by mouth twice* MAGNESIUM (OXIDE/AA CHELATE) * Take by mouth. Problem List As Of Date 07/22/2018 Noted Resolved BENIGN HYPERTENSION [I10] INVALID FOR*03/10/2008 LIPOMA NOS [D17.9] INVALID FOR* PERIPHERAL VERTIGO NOS [H81.399] INVALID FOR* Nonallopathic lesion of rib cage, not elsewhere*INVALID FOR*02/12/2017 Essential hypertension [I10] INVALID FOR* Otalgia, unspecified [H92.09] INVALID FOR*02/12/2017 Hypopotassemia [E87.6] INVALID FOR*02/12/2017 ESOPHAGEAL REFLUX [K21.9] ESOPHAGITIS, UNSPECIFIED [K20.9] INVALID FOR*03/16/2009 Sciatica [M54.30] INVALID FOR*02/12/2017 Mixed hyperlipidemia [E78.2] INVALID FOR* Depression [F32.9] INVALID FOR* Nocturnal Muscle Cramps [R25.2] INVALID FOR* Fatigue [R53.83] INVALID FOR* Obesity [E66.9] INVALID FOR* Osteopenia [M85.80] More... 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 Combined forms of age-related cataract of both *INVALID FOR* Vitreous floaters of both eyes [H43.393] INVALID FOR* CKD (chronic kidney disease) stage 3, GFR 30-59*INVALID FOR* Meibomian gland dysfunction (MGD) of upper and *INVALID FOR* Punctate keratitis, 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] INVALID FOR* Other instructions from your clinician: Check bp in am for several days. Send me list on Thursday Visit Notes: >> Juliann Dietrich Ma Ivana Jul 22, 2018 3:06 PM Status: Signed Urology: patient is concerned about urinary symptoms. Duration of symptoms: 2 weeks Dysuria: Pt states that she is having a burning sensation before she urinates. Urinary urgency: Yes. Urinary frequency: Yes. Suprapubic pain: Mostly pressure. Back pain: Yes. Fever: No. Nausea: Yes. Vomiting: No. Prescriptions ordered this encounter Disp Refills Start End NITROFURANTOIN MONOHYDRATE AND MACROCR* 14 c* 0 07/22/2018 07/29/2018 Route: ORAL Sig: Take 1 capsule by mouth twice daily with meals for 7 days. OMEPRAZOLE 40 MG CAPSULE,DELAYED REL* 90 c* 1 07/22/2018 10/20/2018 Class: [employer] Route: ORAL Sig: Take 1 capsule by mouth once daily. LOSARTAN 100 MG-HYDROCHLOROTHIAZIDE * 90 t* 3 07/22/2018 Class: [employer] Route: ORAL Sig: Take 1 tablet by mouth once daily. CLONIDINE HCL 0.1 MG TABLET 90 t* 3 07/22/2018 Class: [employer] Route: ORAL Sig: Take 1 tablet by mouth daily at bedtime. Medications Discontinued During This Encounter Omeprazole 40 mg capsule 90 c* 1 02/01/2018 07/22/2018 Route: ORAL Sig: Take 1 capsule by mouth once daily. Disc: Reason for discontinue is not on file. Losartan-Hydrochlorothiazide 100-12.* 90 t* 3 07/29/2017 07/22/2018 Route: ORAL Sig: Take 1 tablet by mouth once daily. Disc: Reason for discontinue is not on file. cloNIDine HCl (CATAPRES) 0.1 mg tabl* 90 t* 3 07/29/2017 07/22/2018 Cmt: Please disregard the [employer] and [email or web address] scripts just sent over Route: ORAL Sig: Take 1 tablet by mouth daily at bedtime. Disc: Reason for discontinue is not on file. Disposition: Return in about 6 months (around 01/19/2019). LOS history recorded Follow-up and Disposition History Recorded Encounter Status:Closed by ANDRE MIKE MD on 07/22/18 PROGRESS Observed: 03/24/2018 Status: COMPLETED Source: [place] 1:08 PM [facility] [place] REPOSITORY [facility] ID: [id number] Author: Jason Arechiga Service: (none) Author Type: Physician Type: Progress Notes Filed: 03/24/2018 1:12 PM Note Text: ASSESSMENT/PLAN: 1. Meibomian gland dysfunction (MGD) of upper and lower lids of both eyes - ICD9: 373.00, ICD10: H02.89 (primary diagnosis) 2. Punctate keratitis, bilateral - ICD9: 370.21, ICD10: H16.143 Continue: Blink Tears 1 drop in both eyes in the morning Refresh PM ointment at bedtime, rub on eyelashes at bedtime 3. Combined forms of age-related cataract of both eyes - ICD9: 366.19, ICD10: H25.813 Stable/observe Jason Arechiga MD I have confirmed and edited as necessary the relevant ophthalmic history, review of systems, surgical history, and ophthalmological examination findings as obtained by the ophthalmic technical staff. I have seen and examined Terri Sheehan. I have discussed the examination findings, diagnosis, and treatment options with Terri Sheehan and/or her family. I have also reviewed and agree with the assessment and plan as stated above and agree with all its relevant components. I gave the patient the opportunity to ask questions about the findings, diagnosis, and treatment options. ALLERGIES ALLERGIES DATE TYPE / CODE NAME / CODE REACTION SEVERITY SOURCE 11/24/2018 Drug Sulfa Other Unknown [place] Allergy/[id number](S (Sulfonamide [facility] [place]) Antibiotics)/F0 Hospital [id number](RXNORM Repository ) 11/24/2018 Drug naproxen/U34107 Nausea/Vom/Di Unknown [place] Allergy/434562923(S 2380(RXNORM) arrhea [facility]) Hospital Repository 11/24/2018 Drug adhesive Itching Unknown [place] Allergy/509242854(S tape/[id number] [facility]) (RXNORM) Hospital Repository 11/24/2018 Drug metoprolol/F006 Unknown Unknown [place] Allergy/222056056(S 421427(RXNORM) [facility]) Hospital Repository 11/24/2018 Drug amlodipine/F006 Swelling Unknown [place] Allergy/121043184(S 678305([facility]NORM) [facility] 11/24/2018 Drug nickel/[id number] Rash Unknown [place] Allergy/456000238(S 08(RXNORM) [facility]) Hospital Repository 11/24/2018 Drug rofecoxib/F0060 Upset Stomach Unknown [place] Allergy/087858475(S 37843(RXNORM) [facility]) Hospital Repository 11/24/2018 Drug cat Unknown Unknown [place] Allergy/479395312(S dander/[id number] [facility]) 86(RXNORM) Hospital Repository 11/24/2018 Drug cigarette Other Unknown [place] Allergy/782012284(S smoke/[id number] [facility]) 4(RXNORM) Hospital Repository 01/08/2017 DRUG AMLODIPINE SWELLING [place] INGREDI/126669616(S BESYLATE Clinic Main NOMED [facility]) [place] Repository 07/13/2014 Chemical/371414963( ADHESIVE TAPE ITCHING [place] SNOMED CT) (ROSINS) Clinic Main [place] Repository 04/25/2014 DRUG NICKEL RASH [place] INGREDI/261043502(S Clinic Main NOM[facility]) [place] Repository 03/16/2012 Miscellaneous OTHER COUGH High [place] Allergy/545908996(S Clinic Main NOM[facility]) [place] Repository 05/21/2010 Animal/430159192(SN CATS [place] OMED CT) Clinic Main [place] Repository 10/21/2005 DRUG NAPROXEN SODIUM GI UPSET [place] INGREDI/617365871(S Clinic Main NOMED [facility]) [place] Repository 09/03/2005 DRUG METOPROLOL Mental Chg [place] INGREDI/488108697(S TARTRATE [facility] NOM[facility]) [place] Repository 09/03/2005 Drug SULFA [place] Class/892190009(SNO (SULFONAMIDE Clinic Main MED CT) ANTIBIOTICS) [place] Repository 09/03/2005 DRUG ROFECOXIB GI UPSET [place] INGREDI/736882579(S Clinic Main NOMED [facility]) [place] Repository ENCOUNTERS ENCOUNTERS ADMIT/DISCHARGE ACCOUNT ADMITTING ENCOUNTER LOCATION SOURCE NUMBER CLASS 11/24/2018/11/25/19 [id number] [place] Brown [address] [place] [address] ing:PCURoom: Repository [id number]: 1 11/24/2018 [id number] [facility] Repository 11/24/2018 [id number] [facility] Repository 11/24/2018/11/25/19 [id number] Ambulatory [address] Repository 11/24/2018/11/24/19 [id number] Ambulatory [address] Repository 10/01/2018/10/04/20 [id number] Ambulatory [address] Repository 07/22/2018/07/23/20 [id number] Ambulatory [address] Repository 03/24/2018/03/25/[id number] Repository PAYERS PAYERS ENCOUNTER GUARANTOR PAYER SUBSCRIBER SOURCE 11/24/2018 TERRI Garza Primary TERRI Garza [place] [id number] Insurance:HUMANA FURINDOB: Community [place] MEDIC[place] [facility] [id number] Number: Repository [address]Ztc: 330 [id number] [phone] (HP) Date:2083-02-95YM [address] [address]JO: 11/24/2018 Secondary NOT GIVENUNK [place] Insurance:SELF PAY [facility] Number: Effective Repository Date:2018-11-24 11/24/2018 TERRI Garza Primary TERRI Garza [place] [id number] Insurance:HUMANA FURINDOB: Community [place] [facility] [id number] Number: Repository [id number]: 330 [id number] [phone] (HP) Date:6046-74-31ZD [address] [address]VQ: 11/24/2018 Secondary NOT GIVENUNK Stephanie Insurance:SELF PAY [facility] Number: Effective Repository Date:2018-11-24 11/24/2018 TERRI Garza Primary TERRI Garza [place] [id number] Insurance:HUMANA FURINDOB: Community [place] MED[place] [id number] Number: Repository [id number]: 330 [id number] [phone] (HP) Date:6555-37-26KA [address] [address]EU: 11/24/2018 Secondary NOT GIVENUNK [place] Insurance:SELF PAY [facility] Number: Effective Repository Date:2018-11-24
== END 2018-11-25 11:19 | disposition home or self-care (01) ==
LOC: ED 11:23 → PCU 12:01
PROVIDERS: Admitting Provider Internal Medicine; Emergency Provider Emergency Medicine; Family Provider Family Medicine; PCP Family Medicine; Visit Provider Internal Medicine
DX: R07.89 Other chest pain (principal); I10 Essential (primary) hypertension; Z79.899 Other long term (current) drug therapy; Z79.82 Long term (current) use of aspirin; F41.9 Anxiety disorder, unspecified; E87.6 Hypokalemia; Z87.11 Personal history of peptic ulcer disease; K21.9 Gastro-esophageal reflux disease without esophagitis; Z87.891 Personal history of nicotine dependence; E83.42 Hypomagnesemia; E83.51 Hypocalcemia; E83.39 Other disorders of phosphorus metabolism; E88.09 Other disorders of plasma-protein metabolism, not elsewhere classified; R06.00 Dyspnea, unspecified
CPT/HCPCS: 36415; 71045; 78452; 80048; 80061; 80076; 83735; 83880; 84100; 84132; 84443; 84484; 85025; 85610; 85730; 93005; 93017; 96360; 96361; 96372; 99218; 99285; A9500; J7030; J7050; A4216; G0378; J0610

== ENCOUNTER 2020-06-26 21:23 | Emergency (ER) | payer MEDICARE, SELFPAY ==
[2018-11-24 12:12] VITALS: BMI 35.7
[2020-06-26 21:24] VITALS: BP 200/101; PULSE 114; RESP 17; TEMP 36.2; O2SAT 99; BMI 35.0
[2020-06-26 21:33] VITALS: BP 189/86; PULSE 111; RESP 16; O2SAT 98
--- NOTE | 2020-06-26 21:46 | EKG12_ITS ---
Test Reason : DYSRHYTHMIA Blood Pressure : / mmHG Vent. Rate : 108 BPM Atrial Rate : 108 BPM P-R Int : 188 ms QRS Dur : 082 ms QT Int : 344 ms P-R-T Axes : 043 012 037 degrees QTc Int : 460 ms Sinus tachycardia Otherwise normal ECG Confirmed by PRABHJOT MAN ([id number]), editor school photograph ADAN COX ([id number]) on 07/02/2020 9:48:20 AM Referred By: SAGE Confirmed By:PRABHJOT MAN
[2020-06-26 22:05] LABS: Bacteria 0 SEEN /hpf (None Seen); Mucous, Urine 0 SEEN /hpf (<or=2+); Red Blood Cells-Urine 0 SEEN /hpf (0-5); Squamous Epithelial Cells - UA 0 SEEN /hpf (5-10); White Blood Cells 0 SEEN /hpf (0-5)
--- NOTE | 2020-06-26 22:05 | RAD_ITS ---
STUDY: X-RAY CHEST REASON FOR EXAM: Female, 74 years old. Heart palpitations and high blood pressure TECHNIQUE: Single frontal view of the chest. COMPARISON: 11/24/2018. FINDINGS: There is no new focal consolidation. Normal size heart. Normal mediastinum and zenaida. Normal visualized pulmonary arteries. Normal visualized aortic arch and descending thoracic aorta. Normal visualized thoracic spine. Normal visualized ribs, clavicles, and shoulders. There is no demonstrated abnormality of the visualized soft tissue structures of the upper abdomen. RAD/Chest 1 View (Portable) IMPRESSION: No acute cardiopulmonary process. Electronically Signed: Jojo Youssef MD at 22:45 EDT Tel , Service support ,
[2020-06-26 22:06] LABS: Color, Urine Yellow (Yellow); Glucose, Dipstick Normal (Normal); Ketone-Dipstick Negative (Negative); Leukocyte Esterase-Dipstick Negative /ul (Negative); Nitrite-Dipstick Negative (Negative); Occult Blood-Urine Negative /ul (Negative); Protein-Dipstick Negative (Negative); Urine Bilirubin Dipstick Negative (Negative); Urine Clarity Clear (Clear); Urine Urobilinogen Normal (Normal); Urine pH 6.5 (5.0 - 8.0)
[2020-06-26 22:12] LABS: Absolute Lymphocyte Count 1.25 X10^3/uL (0.83-4.51); Absolute Neutrophil Count 4.9 X10^3/uL (2.0-7.7); Basophil# 0.03 X10^3/uL; Basophil% 0.4 % (0-1); Eosinophil# 0.06 X10^3/uL; Eosinophils% 0.9 % (0-5); Hematocrit 46.1 % (37-47); Hemoglobin 14.7 g/dL (12.0-15.0); Lymphocyte # 1.25 X10^3/ul (4.0); Mean Corp Hgb Conc 31.9 g/dL (32-36); Mean Corpuscular Hgb 28.2 pg (27.0-32.0); Mean Corpuscular Volume 88.3 fL (81-99); Mean Platelet Vol. 10.5 fl (6.2-12.0); Monocyte# 0.72 X10^3/uL; Monocyte% 10.4 % (0-10); NRBC Flagged by Analyzer 0 % (0-5); Neutrophil # 4.86 X10^3/uL (2.7-7.7); Neutrophil % 70.2 % (47-70); Platelet Count 205 K/mm3 (150-450); RBC Distribution Width CV 13.4 % (11.6-14.6); RBC Distribution Width SD 43.2 fl (35.1-43.9); Red Blood Count 5.22 M/mm3 (4.2-5.4); White Blood Count 6.9 K/mm3 (4.4-11.0)
[2020-06-26] MEDS: LORazepam 2 MG/ML Syringe 0.5 MG IV (22:29)
[2020-06-26 22:30] LABS: Anion Gap 5 (5-15); BUN 17 mg/dL (7-18); BUN/Creat Ratio 13.5 RATIO (10-20); Calcium,Total 9.2 mg/dL (8.5-10.1); Chloride 108 mmol/L (98-107); Creatinine, Serum 1.26 mg/dL (0.55-1.02); EST Glomerular Filtration Rate 44 mL/min (>60); Est Glom Filt Rate - Afr Amer 53 mL/min (>60); Estimated Creatinine Clearance 28.56 ml/min; Glucose 138 mg/dL (74-106); Potassium 3.3 mmol/L (3.5-5.1); Sodium Level 140 mmol/L (136-145); Thyroid Stim Hormone (TSH) 3.95 uIU/mL (0.358-3.74)
[2020-06-26 22:32] VITALS: BP 133/96; PULSE 97; RESP 18; O2SAT 97
--- NOTE | 2020-06-26 22:45 | ED.VISSUMM ---
- ER Visit Summary Date of Service: 06/26/20 Chief Complaint: High blood pressure and palpitations History of Present Illness: The patient is a [address] Mike. She reports that 5:00 this evening her blood pressures been elevated and that she feels as though her heart is skipping beats. States that her blood pressures typically 130-150/80. She is on losartan. She took a dose this morning. She does report that she feels mildly short of breath. She denies any chest pain or other complaints. Physical Examination: Vitals: Stable. Afebrile. General: Well-nourished and well-developed. Head: Normocephalic atraumatic. Neck: Supple, no lymphadenopathy. No JVD. Nontender. Cardiovascular: Regular rate and rhythm. No murmurs. Respiratory: No respiratory distress. Clear to auscultation bilaterally. Abdominal: Soft, nontender, nondistended, normal bowel sounds. No guarding, rebound, or peritoneal signs. Back: Nontender. Extremities: Nontender, no edema. Skin: Normal color, no rash. Neurologic: Alert and oriented ?3. Cranial nerves II through XII are intact. Normal strength and sensation. Psych: Anxious. Test Results: EKG is sinus tach at [address] changes. Is unchanged from November 2018. Troponin is negative. UA is normal. Chem-7 shows potassium 3.3, chloride 108, glucose 138, creatinine 1.26. Creatinine was 0.58?1.04 in 2019. CBC shows lymphocytes of 18. Clinical Impression(s) from Imaging Studies Chest X-Ray 06/26/20 22:05 IMPRESSION: No acute cardiopulmonary process. Electronically Signed: Jojo Youssef MD at 22:45 EDT Tel , Service support , Emergency Department Course and Treatment: Patient does admit that she feels anxious. She was given a dose of Ativan IV. She is resting much more comfortably. Her blood pressure is decreased to 133/96. Treatment Plan: Patient will be discharged with instructions to follow-up with Dr. Bates placed within 1 week for another exam. Return to the emergency department for any worsening symptoms. Disposition: To home in improved and stable condition. Impression: 1. Hypertension. 2. Palpitations. 3. Anxiety. This note was generated with [employer] dictation software. It may contain incorrect words, spelling, and punctuation that were not noted in review of the chart prior to signing ED Disposition - Plan for ED Patient: Disposition: Home or Assisted Living Instructions: ED Hypertension Established Prescriptions: Lorazepam [Ativan] 0.5 mg PO TID PRN #10 tab PRN Reason: Anxiety Prescription Printed Referrals: Thaddeus Mike MD [Primary Care Provider] - 1 Week
[2020-06-26 23:08] VITALS: BP 129/84; PULSE 78; RESP 16; O2SAT 99
[2020-06-26 23:09] LABS: T4 Free Direct 1.12 ng/dL (0.76-1.46)
== END 2020-06-26 23:08 | disposition home or self-care (01) ==
LOC: ED 22:15
PROVIDERS: Emergency Provider Emergency Medicine; PCP Family Medicine
DX: F41.9 Anxiety disorder, unspecified (principal); I10 Essential (primary) hypertension; R00.2 Palpitations; Z79.899 Other long term (current) drug therapy
CPT/HCPCS: 71045; 80048; 81001; 84439; 84443; 84484; 85025; 93005; 96374; 99284; A4216

== ENCOUNTER → 2021-10-16 | Outpatient (CLI) | payer MEDICARE, SELFPAY ==
[2021-10-16 17:37] LABS: D-Dimer Quantitative (DVT/PE) <= 0.27 FEU/ug/m (0.27-0.49)
== END | disposition home or self-care (01) ==
PROVIDERS: PCP Family Medicine; Referring Provider Family Medicine; Visit Provider Family Medicine
DX: R07.9 Chest pain, unspecified (principal); R06.02 Shortness of breath
CPT/HCPCS: 85379

== ENCOUNTER → 2024-10-10 | Outpatient (CLI) | payer MEDICARE, SELFPAY ==
[2024-10-10 12:28] LABS: ALB/GLOB Ratio 0.9 RATIO (0.9-2.4); AST(SGOT) 25 U/L (15-37); Alanine Aminotransfer ALT/SGPT 34 U/L (13-56); Albumin, Serum 3.6 g/dL (3.2-5.0); Alkaline Phosphatase 83 U/L (45-117); Anion Gap 7 (5-15); BUN 24 mg/dL (7-18); BUN/Creat Ratio 16.8 RATIO (10-20); CPK Total, Creatine Kinase 30 U/L (26-192); Calcium,Total 9.4 mg/dL (8.5-10.1); Chloride 107 mmol/L (98-107); Creatinine, Serum 1.43 mg/dL (0.55-1.02); EST Glomerular Filtration Rate 38 mL/min (>60); Est Glom Filt Rate - Afr Amer 46 mL/min (>60); Globulin 4.1 g/dL (2.2-4.2); Glucose 105 mg/dL (74-106); Potassium 3.8 mmol/L (3.5-5.1); Protein, Total 7.7 g/dL (6.4-8.2); Sodium Level 138 mmol/L (136-145)
[2024-10-10 12:30] LABS: Absolute Lymphocyte Count 0.97 X10^3/uL (0.83-4.51); Absolute Neutrophil Count 3.7 X10^3/uL (2.0-7.7); Basophil# 0.02 X10^3/uL; Basophil% 0.4 % (0-1); Eosinophils% 1.9 % (0-5); Hematocrit 38.6 % (37-47); Hemoglobin 12.1 g/dL (12.0-15.0); Lymphocyte # 0.97 X10^3/ul (0.83-4.51); Lymphocyte % 18.2 % (19-41); Mean Corp Hgb Conc 31.3 g/dL (32-36); Mean Corpuscular Hgb 27.5 pg (27.0-32.0); Mean Corpuscular Volume 87.7 fL (81-99); Mean Platelet Vol. 11.3 fl (6.2-12.0); Monocyte# 0.54 X10^3/uL; Monocyte% 10.2 % (0-10); NRBC Flagged by Analyzer 0 % (0-5); Neutrophil # 3.67 X10^3/uL (2.7-7.7); Neutrophil % 68.9 % (47-70); Platelet Count 193 K/mm3 (150-450); RBC Distribution Width CV 14.1 % (11.6-14.6); White Blood Count 5.3 K/mm3 (4.4-11.0)
[2024-10-11 11:09] LABS: ANTINUCLEAR ANTIBODIES DIRECT Positive (Negative); Anti-dsDNA Ab <1 IU/mL (0-9)
== END | disposition home or self-care (01) ==
PROVIDERS: PCP Family Medicine; Referring Provider Dermatology Pediatric Dermatology; Visit Provider Dermatology Pediatric Dermatology
DX: L30.8 Other specified dermatitis (principal)
CPT/HCPCS: 36415; 80053; 82550; 85025; 86038; 86225

== ENCOUNTER → 2024-10-17 | Outpatient (CLI) | payer MEDICARE, SELFPAY ==
--- NOTE | 2024-10-17 14:25 | PCM.CR.HP2 ---
CR - History & Physical General Arrival date:: 10/17/24 Arrival time:: 14:25 Date of Referral:: 10/03/24 Date of CR Evaluation:: 10/17/24 Referring Physician: Dr. Abarca Primary Diagnosis: PCI History of Present Cardiac Event Onset Date PTCA or coronary stenting:: Yes Vessel: RCA 07/01/24 Medications Ambulatory Orders ?Medication ?Instructions ?Recorded aspirin 81 mg tablet,delayed 81 mg PO DAILY 11/24/18 release (Aspir-) biotin 300 mcg tablet 300 mcg PO DAILY 11/24/18 cholecalciferol (vitamin D3) 25 1,000 unit PO DAILY 11/24/18 mcg (1,000 unit) tablet (Vitamin D3) clonidine HCl 0.1 mg tablet 0.1 mg PO QHS 11/24/18 diazepam 2 mg tablet 1 mg PO BID PRN PRN Anxiety 11/24/18 losartan 100 1 ea PO DAILY 11/24/18 mg-hydrochlorothiazide 12.5 mg tablet potassium chloride 20 mEq 20 meq PO DAILY ##14 11/25/18 tablet,extended release(part/cryst) (Klor-Con M) lorazepam 0.5 mg tablet 0.5 mg PO TID PRN Anxiety #10 tabs 06/26/20 Allergies Allergies adhesive tape Allergy (Verified 06/26/20 21:27) Itching amlodipine (From Norvasc) Allergy (Verified 06/26/20 21:27) Swelling cat dander Allergy (Verified 06/26/20 21:27) Unknown cigarette smoke Allergy (Verified 06/26/20 21:27) Other metoprolol (From Lopressor) Allergy (Verified 06/26/20 21:27) Unknown nickel Allergy (Verified 06/26/20 21:27) Rash naproxen (From Aleve) Adverse Reaction (Verified 06/26/20 21:27) Nausea/Vom/Diarrhea rofecoxib (From Vioxx) Adverse Reaction (Verified 06/26/20 21:27) Upset Stomach Sulfa (Sulfonamide Antibiotics) Adverse Reaction (Verified 06/26/20 21:27) Other Sleep Disorder Evaluation Hx of Sleep Apnea: Yes Do you often feel tired/ fatigued/ sleepy during daytime?: No Has anyone observed you stop breathing during sleep?: No History of Hypertension (for STOP score): Yes Advanced Directives Advanced Directives Power of Information Technology Audit Manager: No Living Will: No Advance Directives Information Provided: No Advance Directives on File: No DNR Order?:: No Past Medical History Covid-19 Screening Physicial Symptoms Other Clinical Concerns Exposure Risk Pertinent Comorbidities 65 years or older:: Yes Has a serious heart condition:: Yes Social History Smoking History Smoking Status: Former smoker Years Smokin Packs Smoked per Day: 3 (Pt has stopped smoking 40 years ago) Alcohol Use Alcohol Usage: Yes (occas glass of red wine) Occupation Occupation (List type of work in comments):: Retired Hobbies, Recreation, Social Activities Hobbies: Sewing and Other (crafts) Recreational Activities: I am able to engage in all my recreational activities Social Environment Status Marital Status: Current Living Arrangements Living Environment:: Alone Children How many children do you have?: 3 Do any of your children live nearby?: Yes Safety Do you feel safe in your surroundings?: Yes Assistance Do you need any assistance at home?: no Review of Systems Review of Systems Hints Review of Present Symptoms: Reports Shortness of Breath with Exertion, Dizziness/Lightheadedness, Fatigue, Appetite - Normal, Appetite - Special Diet and Sleep - Normal; Denies Shortness of Breath at Rest, PVD, Operative Discomfort, Angina, Wound Healing, Heart Arrhythmia/Irregularities or Sexual Changes Pain Is Patient Pain Free?: No Pain Location: other (arthritis) Pain Level: 5/10 Risk Factor Assessment Chief Complaint Chief Complaint: PCI Vital Signs Pulse Ox: 98 Pulse Pulse Rate: 59 Hypertension Blood Pressure Sitting - Right Arm: 126/70 Obesity Height: 4 ft 11 in Weight:: 169 lb Weight in Pounds: 169.0 lbs Body Mass Index (BMI): 34.1 Nutritional Referral for Obesity: No (declines) Physical Inactivity Physical Inactivity: None Risk Stratification Risk Guidelines: Lowest Risk: Risk Factor for Smoking, Moderate Risk: Risk Factor for Diabetes, Risk Factor for Sedentary Lifestyle and Risk Factor for Depression and Highest Risk: Risk Factor for Dyslipidemia, Risk Factor for Obesity and Risk Factor for Hypertension For Smoking Smoking Risk Guidelines For Dyslipidemia Dyslipidemia Risk Guidelines For Diabetes Mellitus Diabetes Risk Guidelines For Obesity/Overweight Obesity/Overweight Risk Guidelines For Hypertension Hypertension Risk Guidelines For Sedentary Lifestyle Sedentary Lifestyle Risk Guidelines For Depression Depression Risk Guidelines Motivation Motivation to Participate On a scale of 1 to 10, how prepared are you to commit to attending program?: 8 What do you see as barriers to successfully being able to complete the program?: nothing What do you see as the benefits of succesfully completing the program? In other words, what do you hope to get out of participating in the program?: more energy, less SOB Are there issues you are dealing with that will interfere with completing the program?: no Do you have a spouse or signficant other, family or friends who will help support you to complete the program?: yes
--- NOTE | 2024-10-17 14:33 | PCM.CR.ITP ---
Diagnosis General Information Admitting Diagnosis: PCI Personal Learning Style:: Audio/Visual Barriers to Learning: No Barriers Stage of change r/t lifestyle modifications:: Contemplation Gave educational material for:: Treating Heart Disease, How The Heart Works, What it means to have Heart Disease, How Coronary Artery Disease is Diagnosed, Heart Procedures, What Heart Medications Do, Risk Factors & Modifications, Living an Active Life, Nutrition, Emotions & Heart Disease, Stress Management & Relaxation and Sleep Disorders & Heart Disease Education/Goals Cardiac Rehabilitation Goals Personal Goals: Initial Assessment: Improve energy level, Get back to work, or to resume activities faster and Improve muscle strength and endurance Scale for measuring improvement of personal goals Diagnosis & Disease Process Outcomes/Goals: Pt IDs own risk factors & lifestyle modifications by Session 10, Verbalizes symptoms of angina & response by session 3., Pt independently manages and Other Additional Outcomes/Goals: Plan/Interventions: Assist Pt to ID & engage in lifestyle modification to reduce CVD risk, Instruct on individual risk factors, Review symptoms of angina & emergency actions, Review secondary diagnosis & identify educational needs. and Other see comment 30 day Reassessments:: Not Met 30 day Reassessments:: Not Met 30 day Reassessments:: Not Met Final Reassessments:: Not Met Safety Referral to Physical Therapy: No Referral to [facility] Case Management: No Fall Risk Assessed:: Yes Assistive Devices:: None Exercise - Initial Assessment Visit Date of Eval: 10/17/24 (initial eval ) Mets: Pre-: >3 METS for 30 minutes by discharge, >5 METS for 30 minutes by discharge, >7 METS for 30 minutes by discharge and Unable to meet goal due to: (see comment below) Physician Prescribed Exercise Modalities: Treadmill, Rower, Schwrosemarie Airdyne AD-7, SciFit Stepper, SciFit Pro-II Ergometer and SciFit Lateral Refractory Repairer Frequency: 2x/week for 18 weeks [36 sessions] and 3x/week for 12 weeks [36 sessions] Intensity: 60-80% of age predicted maximum heart rate reserve Duration: 30 - 45 minutes Current METSs:: 3 Target Heart Rate:: 86-107 Resting Blood Pressure: 126/70 EKG Type: NSR Outcomes & Goals Goals:: Verbalizes understanding of THR, RPE & goal METS by session 6, Documents in home exercise log/reports 30 min aerobic 5 day/wk by DC, Demonstrates accurate pulse taking by DC and Other additional outcome/goals: see below Intervention & Plan Exercise Program Goals: Instruct on personal THR & RPE, Instruct on MET level & personal MET goal, Show patient to take own pulse /validate performance until accurate, Instruct on home exercise and Other additional plan/int Physical Activity Home Exercise Physical Activity - Home Exercise: Safe Exercise, Warm-up, Self-monitoring, Cool-Down, Home Exercise > 30 min Daily and Sitting Time <3 hours/daily Outcomes & Goals Outcomes/Goals: Demonstrates correct Warm-up/exercise Cool-Down (S3) if = 2.5 METs, Verbalizes symptoms of exercise intolerance by Session 3 (S3), Demonstrate safe equipment use (S3) & follows exercise prescrition (6) and Other: See below Intervention & Plan Plan/Intervention: Instruct warm-up & cool-down if exercising at > 2 METs, Instruct on symptoms of exercise intolerance & actions to take, Instruct & monitor on saf, Assess intial functional capacity & safety risk and Other See below Nutrition - Initial Assessment Program Goals Nutrition Program Goals Patient has diagnosis of Hyperlipidemia (ICD E78)?: Yes Visit Date of Eval: 10/17/24 (initial eval ) Cholesterol/Lipids (Other Core Measures) Determine presence & major risk factors that modify LDL goal: Hypertension or hypertensive medication, Low HDL cholesterol <40 mg/dL*, Family history of premature CHD in Male < 55 years: female <65 yearsFa and Age men > 45 years; women >/= 55 years Outcomes/Goals: Pt IDs own risk factors & lifestyle modifications by Session 10, Verbalizes symptoms of angina & response by session 3., Pt independently manages and Other Additional Outcomes/Goals: Intervention/Plan: Advocate for lipid panel cholesterol medication if applicable, Instruct on personal lipid levels & lipid goals/NCEP guidelines, Instruct on cholesterol and Other additional plan/int Diabetes (Other Core Measures) Diabetes Type: Not Applicable Weight Mgt (Other Care) Height: 4 ft 11 in Weight:: 169 lb BMI: 34.1 Diagnosis Overweight/Obesity BMI> 30% ICD-10 E66: Yes Diagnosis High BMI/Morbid Obesity BMI> 35% ICD-10 Z68: No Outcomes/Goals: Pt sets, maintains & shows weight loss goal & trend during rehab and Other additional outcomes/goals Intervention/Plan: Instruct on ideal BMI & set weight loss goal w/patient, Assist pt to ID & incorporate diet changes for weight loss by S9, Refer to Structured Weight Loss program as appropriate, Encourage goal of using 250-300dcal per session for weight loss and Other additional plan/interventions Healthy Eating Habits Will attend diet classes:: Yes Outcomes/Goals:: Consume diet rich in vegs,fruits,whole grain/high fiber,fish,lean meat, Limit sat/trans fats,cholesterol & added salts & sugars and Other additional outcome/goals: Intervention/Plan:: Assess current eating habits and Other Additional plan/interventions Education Gave educational materials for:: Signs & symptoms of hypoglycemia, Signs & symptoms of hyperglycemia, Relate diabetes to coronary artery disease and Healthy eating Core - Initial Assessment Visit Date of Eval: 10/17/24 (initial eval) Medication Compliance Preventative Medication(s):: Aspirin, Ticagrelor/P2Y12 inhibitor, Statin/lipid, Beta kemar and ARB (Angiotensi Rcap) H/O mental health issues: depression, anxiety, or addiction?: No Doesn?t believe in the benefits of treatment?: No Believes medications are unnecessary or harmful?: No Has a concern about medication side effects?: No Expresses concern over the cost of medications?: No Outcomes/Goals: Verbalizes medications,desired effect & common side effects @ DC, Pt self-reports following medication regimen, Keeps card in wallet w/medications listed by DC and Other additional outcome/goals: Interventions/plans: Instruct on medication effects & side effects, Review medication list w/patient every two weeks, Instruct importance of taking meds as ordered & assist problem solving and Other additional Tobacco Use Tobacco Use: Non-smoker How long ago did you quit using tobacco products?: Greater than or equal to 6 months ago (Pt has stopped 40 years ago) Years Smokin Outcomes/Goals: Smoking cessation achieved or maintained by discharge, Identify aids/strategies for achieving smoking cessation by session 6 and Other additional outcome/goals Interventions/plan: Instruct on effects of smoking & provide smoking cessation resource, Assist pt to set quit date & provide encouragement, Assist pt to develop strategies to achieve/maintain quit date, Assist pt w/nicotine replacement & medication for cessation success and Other additional plan/interventions Hypertension Hypertension Diagnosis:: Hypertension ICD-10 I10 Resting Blood Pressure:: 126/70 [place] [employer] Hypertension Guidelines Outcomes/Goals: Able to verbalize/achieve optimal blood pressure <130/80, Incorporates diet changes & exercise for blood pressure control by DC and Other additional outcomes/goals Interventions/plan: Instruct on optimal blood pressure, hypertension & medications, Instruct on effects of sodium, alcohol, stress, exercise &hypertension and Other additional plan/interventions Tobacco Cessation Referral Smoking Cessation Referral:: No Individual Education/Counseling:: No Education Schedule Given:: Yes Psychosocial - Initial Assess VIsit Date of Eval: 10/17/24 (initial eval ) History of previous Mental disease:: No Target Goals Target Goals Psychosocial Test Tool Used:: [employer] QOL Cardiac and PHQ-9 Questionnaire phq-9 Severity Referral to Behavioral Health PS - Interventions: Yes: Attend Stress Management Classes Outcomes/Goals: See list Psychosocial Outcomes/Goals:: ID's personal stressors & 2 strategies to manage stress by discharge and Other Additional outcome/goals: Intervention/Plan: See List Interventions/Plan:: Assess stressors,coping strategies & signs of derpression on admission, Instruct/assist pt to develop coping & personal stress Mgt strategies, Refer to Behavioral Health if appropriate, Refer to Physician if appropriate, Instruct patient to recognize signs & symptoms of depression, Instruct patient to recog and Other additional plan/intervention Patient Health Questionnaire PHQ-9 Screening Initial Assessment: 1. Little interest or pleasure in doing things: Several days 3. Trouble falling or staying asleep, or sleeping too much: Not at all 4. Feeling tired or having little energy: Nearly every day 5. Poor appetite or overeating: Not at all 6. Feeling bad about yourself -- or that you are a failure or have let yourself or your family down: Not at all 7. Trouble concentrating on things, such as reading the newspaper or watching television: More than half the days 8. Moving or speaking so slowly that other people could have noticed. Or the opposite - being so fidgety or restless that you have been moving around a lot more than usual: Not at all 9. Thoughts that you would be better off , or of hurting yourself in some way: Not at all How difficult have these problems made it for you to do your work, take care of things at home, or get along with other people?: Not difficult at all Total Score: 6 VANDANA-Q SV Test Statements CAD is a disease of the arteries in the heart: False Examples of risk factors for heart disease: True Angina is chest pain or discomfort: I Don't Know The benefits of resistance training include: True Eating more meat and dairy products: False Anti-platelet medications such as aspirin are important: True The only effective way to manage stress: False An exercise warm-up slowly increases heart rate: True Prepared, processed foods usually have high sodium: True Depression is common after a heart attack: False The statin medications lower cholesterol: True To control blood pressure, lower the amount of sodium: True If someone gets chest discomfort during walking: False Transfats are partially hydrogenated vegetable oils: True Sleep apnea that is not treated increases the risk: I Don't Know To control cholesterol, one should become a vegetarian: False Someone knows if he/she is exercising at the right level: True Diabetes cannot be prevented with exercise & health eating: False Stress is a large risk for heart attack: True A diet that can help lower blood pressure is rich in: True Total Score Total Correct Responses: 17 Self-Efficacy 6-Item Scale Initial Assessment: We would like to know how confident you are in doing certain activities. Please select your confidence level for: Fatigue Select Number: 10 Physical Discomfort or Pain Select Number: 10 Emotional Distress Select Number: 10 Other Symptoms or Health Problems Select Number: 10 Different Tasks and Activities Select Number: 10 Medication Select Number: 10 Total Score:: 10 Nutrition Survey Nutrition Survey Instructions Scoring Instructions Nutrition Survey Initial: Have you lost >10 lbs over the past 2 months without trying?: No Are you following a special diet at home for diabetes, low fat, or low salt?: No Are you interested in meeting with a dietitian for help understanding your diet?: Yes Do you eat less than 3 meals a day?: Yes Do you eat fatty meats (de león, sausage, ribs, etc), fried foods, desserts, large amounts of salad dressings, margarine, butter, or cheese most days?: No Do you have food allergies? [Enter types in comment field]: No Do you eat in restaurants more than 3 times a week?: No Do you season food with salt, seasoning salt, or garlic salt?: Yes Do you used canned, boxed, frozen meals, or soups, seasoning packets?: Yes Total Score:: 4 Exercise - 30-day Assessment Physician Prescribed Exercise Modalities: Treadmill, Rower, Eliza Olivares AD-7, SciFit Stepper, SciFit Pro-II Ergometer and SciFit Lateral [place] Exercise - 60-day Assessment Physician Prescribed Exercise Modalities: Treadmill, Rower, Schwinn Airdyne AD-7, SciFit Stepper, SciFit Pro-II Ergometer and SciFit Lateral Refractory Repairer Exercise - 90-day Assessment Physician Prescribed Exercise Modalities: Treadmill, Rower, Schwinn Airdyne AD-7, SciFit Stepper, SciFit Pro-II Ergometer and SciFit Lateral Refractory Repairer Exercise - Final/Discharge Physician Prescribed Exercise Modalities: Treadmill, Rower, Schwinn Airdyne AD-7, SciFit Stepper, SciFit Pro-II Ergometer and SciFit Lateral Refractory Repairer Frequency: 2x/week for 18 weeks [36 sessions] and 3x/week for 12 weeks [36 sessions] Intensity: 60-80% of age predicted maximum heart rate reserve Current METSs:: 3 Target Heart Rate:: 86-107 Nutrition - 30-Day Assessment Weight Mgt (Other Care) Height: 4 ft 11 in Weight:: 169 lb BMI: 34.1 Nutrition - 60-Day Assessment Weight Mgt (Other Care) Height: 4 ft 11 in Weight:: 169 lb BMI: 34.1 Core - 30-Day Assessment Tobacco Use Years Smokin Core - Final Assessment Hypertension Resting Blood Pressure:: 126/70 [place] [employer] Hypertension Guidelines Core - 60-Day Assessment Hypertension Resting Blood Pressure:: 126/70 [place] [employer] Hypertension Guidelines Psychosocial - 30-Day Assess Target Goals Target Goals Referral to Behavioral Health PS - Interventions: Yes: Attend Stress Management Classes Psychosocial - 60-Day Assess Target Goals Target Goals Referral to Behavioral Health PS - Interventions: Yes: Attend Stress Management Classes Psychosocial - 90-Day Assess Target Goals Target Goals Referral to Behavioral Health PS - Interventions: Yes: Attend Stress Management Classes Psychosocial - Final Assessmen Target Goals Target Goals Referral to Behavioral Health PS - Interventions: Yes: Attend Stress Management Classes Nutrition - 90-Day Assessment Weight Mgt (Other Care) Height: 4 ft 11 in Weight:: 169 lb BMI: 34.1 Nutrition - Final Assessment Program Goals Patient has diagnosis of Hyperlipidemia (ICD E78)?: Yes Weight Mgt (Other Care) Height: 4 ft 11 in Weight:: 169 lb BMI: 34.1
[2024-10-17 14:53] VITALS: PULSE 59; O2SAT 98; BMI 34.1
[2024-10-17 14:57] VITALS: BP 126/70
[2024-10-17 15:26] VITALS: BMI 34.1
[2024-10-17 15:35] VITALS: BP 126/70
== END | disposition home or self-care (01) ==
PROVIDERS: PCP Family Medicine; Referring Provider Internal Medicine Cardiovascular Disease; Visit Provider Internal Medicine Cardiovascular Disease
DX: Z95.5 Presence of coronary angioplasty implant and graft (principal)

== ENCOUNTER 2024-11-07 15:15 | Outpatient (RCR) | payer MEDICARE, SELFPAY ==
[2024-10-17 15:26] VITALS: BMI 34.1
== END 2024-11-08 23:59 ==
LOC: CR 15:15
PROVIDERS: PCP Family Medicine; Visit Provider Internal Medicine Cardiovascular Disease
DX: Z95.5 Presence of coronary angioplasty implant and graft (principal)
CPT/HCPCS: 93798

== ENCOUNTER 2024-12-09 15:15 | Outpatient (RCR) | payer MEDICARE, SELFPAY ==
[2024-10-17 15:26] VITALS: BMI 34.1
--- NOTE | 2024-11-17 07:30 | CR.ITP_ITS ---
Exercise - Initial Assessment Visit Session #:: 8 Physician Prescribed Exercise Modalities: Treadmill and SciFit Stepper Nutrition - Initial Assessment Weight Mgt (Other Care) Height: 4 ft 11 in Weight:: 173 lb 8 oz BMI: 35.0 Psychosocial - Initial Assess Target Goals Target Goals Referral to Behavioral Health PS - Interventions: Yes: Attend Stress Management Classes Nutrition Survey Nutrition Survey Instructions Scoring Instructions Exercise - 30-day Assessment Visit Date of Eval: 11/17/24 Session #:: 8 Physician Prescribed Exercise Modalities: Treadmill and SciFit Stepper Frequency: 3x/week for 12 weeks [36 sessions] Intensity: 60-80% of age predicted maximum heart rate reserve Duration: 30 - 45 minutes Current METSs:: 3.4 Target Heart Rate:: 86-107 Current RPE:: 11-12 Maximum Excercise HR:: 104 Resting Blood Pressure: 140/76 Maximum Exercise Blood Pressure: 150/86 EKG Type: SR to ST Outcomes & Goals Goals:: Verbalizes understanding of THR, RPE & goal METS by session 6, Documents in home exercise log/reports 30 min aerobic 5 day/wk by DC, Demonstrates accurate pulse taking by DC and Other additional outcome/goals: see below Intervention & Plan Exercise Program Goals: Instruct on personal THR & RPE, Instruct on MET level & personal MET goal, Show patient to take own pulse /validate performance until accurate and Instruct on home exercise Physical Activity Home Exercise Physical Activity - Home Exercise: Safe Exercise, Warm-up, Self-monitoring, Cool-Down, Home Exercise > 30 min Daily and Sitting Time <3 hours/daily Outcomes & Goals Outcomes/Goals: Demonstrates correct Warm-up/exercise Cool-Down (S3) if = 2.5 METs, Verbalizes symptoms of exercise intolerance by Session 3 (S3), Demonstrate safe equipment use (S3) & follows exercise prescrition (6) and Other: See below Intervention & Plan Plan/Intervention: Instruct warm-up & cool-down if exercising at > 2 METs, Instruct on symptoms of exercise intolerance & actions to take, Instruct & monitor on saf, Assess intial functional capacity & safety risk and Other See below 30-day Reassessments 30 day Reassessments:: Progressing Reassessment Notes & Comments:: RPE explained to pt. Pt demonstrates understanding Exercise - 60-day Assessment Physician Prescribed Exercise Modalities: Treadmill and SciFit Stepper Exercise - 90-day Assessment Physician Prescribed Exercise Modalities: Treadmill and SciFit Stepper Exercise - Final/Discharge Physician Prescribed Exercise Modalities: Treadmill and SciFit Stepper Nutrition - 30-Day Assessment Program Goals Nutrition Program Goals Patient has diagnosis of Hyperlipidemia (ICD E78)?: Yes Visit Date of Eval: 11/17/24 Session #:: 8 Cholesterol/Lipids (Other Core Measures) Determine presence & major risk factors that modify LDL goal: Hypertension or hypertensive medication, Low HDL cholesterol <40 mg/dL*, Family history of premature CHD in Male < 55 years: female <65 yearsFa and Age men > 45 years; women >/= 55 years Outcomes/Goals: Pt IDs own risk factors & lifestyle modifications by Session 10, Verbalizes symptoms of angina & response by session 3., Pt independently manages and Other Additional Outcomes/Goals: Intervention/Plan: Advocate for lipid panel cholesterol medication if applicable, Instruct on personal lipid levels & lipid goals/NCEP guidelines, Instruct on cholesterol and Other additional plan/int Diabetes (Other Core Measures) Diabetes Type: Not Applicable Weight Mgt (Other Care) Height: 4 ft 11 in Weight:: 173 lb 8 oz BMI: 35.0 Diagnosis Overweight/Obesity BMI> 30% ICD-10 E66: Yes Diagnosis High BMI/Morbid Obesity BMI> 35% ICD-10 Z68: Yes Outcomes/Goals: Pt sets, maintains & shows weight loss goal & trend during rehab and Other additional outcomes/goals Intervention/Plan: Instruct on ideal BMI & set weight loss goal w/patient, Assist pt to ID & incorporate diet changes for weight loss by S9, Refer to Structured Weight Loss program as appropriate, Encourage goal of using 250- 300dcal per session for weight loss and Other additional plan/interventions Healthy Eating Habits Will attend diet classes:: Yes Outcomes/Goals:: Consume diet rich in vegs,fruits,whole grain/high fiber,fish,lean meat, Limit sat/trans fats,cholesterol & added salts & sugars and Other additional outcome/goals: 30-day Reassessments:: Progressing Reassessment Notes & Comments:: Pt is scheduled to attend nutrition class. Pt is encouraged to eat a heart healthy low sodium diet. Pt encouraged to keep a food log for review. Education Gave educational materials for:: Signs & symptoms of hypoglycemia, Signs & symptoms of hyperglycemia, Relate diabetes to coronary artery disease and Healthy eating Nutrition - 60-Day Assessment Weight Mgt (Other Care) Height: 4 ft 11 in Weight:: 173 lb 8 oz BMI: 35.0 Core - 30-Day Assessment Visit Date of Eval: 11/17/24 Session #:: 8 Medication Compliance Preventative Medication(s):: Aspirin, Ticagrelor/P2Y12 inhibitor, Statin/lipid, Beta kemar and ARB (Angiotensi Rcap) H/O mental health issues: depression, anxiety, or addiction?: No Doesn?t believe in the benefits of treatment?: No Believes medications are unnecessary or harmful?: No Has a concern about medication side effects?: No Expresses concern over the cost of medications?: No Outcomes/Goals: Verbalizes medications,desired effect & common side effects @ DC, Pt self-reports following medication regimen, Keeps card in wallet w/medications listed by DC and Other additional outcome/goals: Interventions/plans: Instruct on medication effects & side effects, Review medication list w/patient every two weeks, Instruct importance of taking meds as ordered & assist problem solving and Other additional Tobacco Use Tobacco Use: Non-smoker Hypertension Hypertension Diagnosis:: Hypertension ICD-10 I10 Resting Blood Pressure:: 140/76 [place] [employer] Hypertension Guidelines Peak Exercise Blood Pressure:: 150/86 Outcomes/Goals: Able to verbalize/achieve optimal blood pressure <130/80, Incorporates diet changes & exercise for blood pressure control by DC and Other additional outcomes/goals Interventions/plan: Instruct on optimal blood pressure, hypertension & medications, Instruct on effects of sodium, alcohol, stress, exercise &hypertension and Other additional plan/interventions 30 day Reassessments:: Progressing Reassessment Notes & Comments:: Importance of med compliance discussed in education. Pt demonstrates understanding. Psychosocial - 30-Day Assess VIsit Date of Eval: 11/17/24 Session #:: 8 Not Applicable: No Target Goals Target Goals Psychosocial Test Tool Used:: [employer] QOL Cardiac and PHQ-9 Questionnaire phq-9 Severity Referral to Behavioral Health PS - Interventions: Yes: Attend Stress Management Classes Outcomes/Goals: See list Psychosocial Outcomes/Goals:: ID's personal stressors & 2 strategies to manage stress by discharge and Other Additional outcome/goals: Intervention/Plan: See List Interventions/Plan:: Assess stressors,coping strategies & signs of derpression on admission, Instruct/assist pt to develop coping & personal stress Mgt strategies, Refer to Behavioral Health if appropriate, Refer to Physician if appropriate, Instruct patient to recognize signs & symptoms of depression, Instruct patient to recog and Other additional plan/intervention 30-day Reassessments: 30 day Reassessments:: Met Reassessment Notes & Comments:: Pt denies any psychosocial issues at this time. Psychosocial - 60-Day Assess Target Goals Target Goals Referral to Behavioral Health PS - Interventions: Yes: Attend Stress Management Classes Outcomes/Goals: See list Psychosocial Outcomes/Goals:: ID's personal stressors & 2 strategies to manage stress by discharge and Other Additional outcome/goals: Psychosocial - 90-Day Assess Target Goals Target Goals Referral to Behavioral Health PS - Interventions: Yes: Attend Stress Management Classes Psychosocial - Final Assessmen Target Goals Target Goals Referral to Behavioral Health PS - Interventions: Yes: Attend Stress Management Classes Nutrition - 90-Day Assessment Weight Mgt (Other Care) Height: 4 ft 11 in Weight:: 173 lb 8 oz BMI: 35.0 Nutrition - Final Assessment Weight Mgt (Other Care) Height: 4 ft 11 in Weight:: 173 lb 8 oz BMI: 35.0
[2024-11-17 07:44] VITALS: BP 140/76; BMI 35.0
== END 2024-12-09 23:59 ==
LOC: CR 15:15
PROVIDERS: PCP Family Medicine; Visit Provider Internal Medicine Cardiovascular Disease
DX: Z95.5 Presence of coronary angioplasty implant and graft (principal)

== ENCOUNTER 2025-01-06 15:15 | Outpatient (RCR) | payer MEDICARE, SELFPAY ==
[2024-11-17 07:44] VITALS: BMI 35.0
[2024-12-10 00:53] VITALS: BP 140/76
--- NOTE | 2024-12-15 07:48 | PCM.CR.ITP ---
Exercise - Initial Assessment Physician Prescribed Exercise Modalities: Treadmill and SciFit Stepper Nutrition - Initial Assessment Weight Mgt (Other Care) Height: 4 ft 11 in Weight:: 174 lb BMI: 35.1 Core - Initial Assessment Hypertension Resting Blood Pressure:: 106/60 [place] [employer] Hypertension Guidelines Psychosocial - Initial Assess Target Goals Target Goals Referral to Behavioral Health PS - Interventions: Yes: Attend Stress Management Classes Patient Health Questionnaire PHQ-9 Screening 60-Day Re-eval Assessment: 1. Little interest or pleasure in doing things: Several days 2. Feeling down, depressed, or hopeless: Not at all 3. Trouble falling or staying asleep, or sleeping too much: Nearly every day 4. Feeling tired or having little energy: Not at all 5. Poor appetite or overeating: Not at all 6. Feeling bad about yourself -- or that you are a failure or have let yourself or your family down: More than half the days 7. Trouble concentrating on things, such as reading the newspaper or watching television: Not at all 8. Moving or speaking so slowly that other people could have noticed. Or the opposite - being so fidgety or restless that you have been moving around a lot more than usual: Not at all 9. Thoughts that you would be better off , or of hurting yourself in some way: Not at all How difficult have these problems made it for you to do your work, take care of things at home, or get along with other people?: Not difficult at all Total Score: 6 Self-Efficacy 6-Item Scale 60-Day Re-eval Assessment: We would like to know how confident you are in doing certain activities. Please select your confidence level for: Fatigue Select Number: 10 Physical Discomfort or Pain Select Number: 10 Emotional Distress Select Number: 10 Other Symptoms or Health Problems Select Number: 10 Different Tasks and Activities Select Number: 10 Medication Select Number: 10 Total Score:: 10 Nutrition Survey Nutrition Survey Instructions Scoring Instructions Exercise - 30-day Assessment Physician Prescribed Exercise Modalities: Treadmill and SciFit Stepper Exercise - 60-day Assessment Visit Date of Eval: 12/15/24 Session #:: 16 Physician Prescribed Exercise Modalities: Treadmill and SciFit Stepper Frequency: 3x/week for 12 weeks [36 sessions] Intensity: 60-80% of age predicted maximum heart rate reserve Duration: 30 - 45 minutes Current METSs:: 3.4 Target Heart Rate:: 86-107 Current RPE:: 13 Maximum Excercise HR:: 97 Resting Blood Pressure: 150/76 Maximum Exercise Blood Pressure: 140/76 EKG Type: NSR with rare pac,pvc Outcomes & Goals Goals:: Verbalizes understanding of THR, RPE & goal METS by session 6, Documents in home exercise log/reports 30 min aerobic 5 day/wk by DC, Demonstrates accurate pulse taking by DC and Other additional outcome/goals: see below Intervention & Plan Exercise Program Goals: Instruct on personal THR & RPE, Instruct on MET level & personal MET goal, Show patient to take own pulse /validate performance until accurate, Instruct on home exercise and Other additional plan/int Physical Activity Home Exercise Physical Activity - Home Exercise: Safe Exercise, Warm-up, Self-monitoring, Cool-Down, Home Exercise > 30 min Daily and Sitting Time <3 hours/daily Outcomes & Goals Outcomes/Goals: Demonstrates correct Warm-up/exercise Cool-Down (S3) if = 2.5 METs, Verbalizes symptoms of exercise intolerance by Session 3 (S3) and Demonstrate safe equipment use (S3) & follows exercise prescrition (6) Intervention & Plan Plan/Intervention: Instruct warm-up & cool-down if exercising at > 2 METs, Instruct on symptoms of exercise intolerance & actions to take, Instruct & monitor on saf and Assess intial functional capacity & safety risk 30-day Reassessments 30 day Reassessments:: Progressing Reassessment Notes & Comments:: Proper warm up explained and demonstrated to pt. Pt is able to return demonstration. Exercise - 90-day Assessment Physician Prescribed Exercise Modalities: Treadmill and SciFit Stepper Exercise - Final/Discharge Physician Prescribed Exercise Modalities: Treadmill and SciFit Stepper Nutrition - 30-Day Assessment Weight Mgt (Other Care) Height: 4 ft 11 in Weight:: 174 lb BMI: 35.1 Nutrition - 60-Day Assessment Program Goals Nutrition Program Goals Patient has diagnosis of Hyperlipidemia (ICD E78)?: Yes Visit Date of Eval: 12/15/24 Session #:: 16 Cholesterol/Lipids (Other Core Measures) Determine presence & major risk factors that modify LDL goal: Hypertension or hypertensive medication, Low HDL cholesterol <40 mg/dL*, Family history of premature CHD in Male < 55 years: female <65 yearsFa and Age men > 45 years; women >/= 55 years Outcomes/Goals: Pt IDs own risk factors & lifestyle modifications by Session 10, Verbalizes symptoms of angina & response by session 3. and Pt independently manages Intervention/Plan: Advocate for lipid panel cholesterol medication if applicable, Instruct on personal lipid levels & lipid goals/NCEP guidelines and Instruct on cholesterol Diabetes (Other Core Measures) Diabetes Type: Not Applicable Weight Mgt (Other Care) Height: 4 ft 11 in Weight:: 174 lb BMI: 35.1 Diagnosis Overweight/Obesity BMI> 30% ICD-10 E66: Yes Diagnosis High BMI/Morbid Obesity BMI> 35% ICD-10 Z68: Yes Outcomes/Goals: Pt sets, maintains & shows weight loss goal & trend during rehab and Other additional outcomes/goals Intervention/Plan: Instruct on ideal BMI & set weight loss goal w/patient, Assist pt to ID & incorporate diet changes for weight loss by S9, Refer to Structured Weight Loss program as appropriate, Encourage goal of using 250-300dcal per session for weight loss and Other additional plan/interventions Healthy Eating Habits Will attend diet classes:: Yes Outcomes/Goals:: Consume diet rich in vegs,fruits,whole grain/high fiber,fish,lean meat, Limit sat/trans fats,cholesterol & added salts & sugars and Other additional outcome/goals: Intervention/Plan:: Assess current eating habits 30-day Reassessments:: Progressing Reassessment Notes & Comments:: Pt i sscheduled to attend nutrition class next week. Pt encouraged to eat a heart healthy low sodium diet. Pt encouraged to log her food for our review. Education Gave educational materials for:: Signs & symptoms of hypoglycemia, Signs & symptoms of hyperglycemia, Relate diabetes to coronary artery disease and Healthy eating Core - Final Assessment Hypertension Resting Blood Pressure:: 106/60 [place] [employer] Hypertension Guidelines Core - 60-Day Assessment Visit Date of Eval: 12/15/24 Session #:: 16 Medication Compliance Preventative Medication(s):: Aspirin, Ticagrelor/P2Y12 inhibitor, Statin/lipid, Beta kemar and ARB (Angiotensi Rcap) H/O mental health issues: depression, anxiety, or addiction?: No Doesn?t believe in the benefits of treatment?: No Believes medications are unnecessary or harmful?: No Has a concern about medication side effects?: No Expresses concern over the cost of medications?: No Outcomes/Goals: Verbalizes medications,desired effect & common side effects @ DC, Pt self-reports following medication regimen and Keeps card in wallet w/medications listed by DC Interventions/plans: Instruct on medication effects & side effects, Review medication list w/patient every two weeks and Instruct importance of taking meds as ordered & assist problem solving Tobacco Use Tobacco Use: Non-smoker Hypertension Hypertension Diagnosis:: Hypertension ICD-10 I10 Resting Blood Pressure:: 150/78 Resting Blood Pressure:: 106/60 [place] [employer] Hypertension Guidelines Peak Exercise Blood Pressure:: 140/76 Outcomes/Goals: Able to verbalize/achieve optimal blood pressure <130/80, Incorporates diet changes & exercise for blood pressure control by DC and Other additional outcomes/goals Interventions/plan: Instruct on optimal blood pressure, hypertension & medications, Instruct on effects of sodium, alcohol, stress, exercise &hypertension and Other additional plan/interventions 30 day Reassessments:: Progressing Reassessment Notes & Comments:: Weight loss and low sodium diet encouraged to help lower BP's Will send report to pt's physician if needed Tobacco Cessation Referral Smoking Cessation Referral:: No Individual Education/Counseling:: No Education Schedule Given:: Yes Psychosocial - 30-Day Assess Target Goals Target Goals Referral to Behavioral Health PS - Interventions: Yes: Attend Stress Management Classes Outcomes/Goals: See list Psychosocial Outcomes/Goals:: ID's personal stressors & 2 strategies to manage stress by discharge and Other Additional outcome/goals: Psychosocial - 60-Day Assess VIsit Date of Eval: 12/15/24 Session #:: 16 History of previous Mental disease:: No Target Goals Target Goals Psychosocial Test Tool Used:: [employer] QOL Cardiac and PHQ-9 Questionnaire phq-9 Severity Referral to Behavioral Health PS - Interventions: Yes: Attend Stress Management Classes Outcomes/Goals: See list Psychosocial Outcomes/Goals:: ID's personal stressors & 2 strategies to manage stress by discharge and Other Additional outcome/goals: Intervention/Plan: See List Interventions/Plan:: Assess stressors,coping strategies & signs of derpression on admission, Instruct/assist pt to develop coping & personal stress Mgt strategies, Refer to Behavioral Health if appropriate, Refer to Physician if appropriate, Instruct patient to recognize signs & symptoms of depression, Instruct patient to recog and Other additional plan/intervention 30-day Reassessments: 30 day Reassessments:: Met Reassessment Notes & Comments:: Pt denies any psychosocial issues at this time Psychosocial - 90-Day Assess Target Goals Target Goals Referral to Behavioral Health PS - Interventions: Yes: Attend Stress Management Classes Psychosocial - Final Assessmen Target Goals Target Goals Referral to Behavioral Health PS - Interventions: Yes: Attend Stress Management Classes Nutrition - 90-Day Assessment Weight Mgt (Other Care) Height: 4 ft 11 in Weight:: 174 lb BMI: 35.1 Nutrition - Final Assessment Weight Mgt (Other Care) Height: 4 ft 11 in Weight:: 174 lb BMI: 35.1
[2024-12-15 07:51] VITALS: BP 150/76
[2024-12-15 08:03] VITALS: BP 106/60; BP 150/78; BMI 35.1
== END 2025-01-06 23:59 ==
LOC: CR 15:15
PROVIDERS: PCP Family Medicine; Visit Provider Internal Medicine Cardiovascular Disease
DX: Z95.5 Presence of coronary angioplasty implant and graft (principal); E78.2 Mixed hyperlipidemia; I10 Essential (primary) hypertension; I25.10 Atherosclerotic heart disease of native coronary artery without angina pectoris
CPT/HCPCS: 93798

== ENCOUNTER 2025-01-13 15:15 | Outpatient (RCR) | payer MEDICARE, SELFPAY ==
[2024-12-15 08:03] VITALS: BMI 35.1
[2025-01-07 00:44] VITALS: BP 106/60; BP 140/76; BP 150/76; BP 150/78
--- NOTE | 2025-01-12 08:07 | CR.ITP_ITS ---
Exercise - Initial Assessment Physician Prescribed Exercise Modalities: Treadmill and SciFit Stepper Nutrition - Initial Assessment Weight Mgt (Other Care) Height: 4 ft 11 in Weight:: 175 lb BMI: 35.3 Psychosocial - Initial Assess Target Goals Target Goals Referral to Behavioral Health PS - Interventions: Yes: Attend Stress Management Classes Patient Health Questionnaire PHQ-9 Screening 90-Day Re-eval Assessment: 1. Little interest or pleasure in doing things: Several days 2. Feeling down, depressed, or hopeless: Not at all 3. Trouble falling or staying asleep, or sleeping too much: Nearly every day 4. Feeling tired or having little energy: Not at all 5. Poor appetite or overeating: Not at all 6. Feeling bad about yourself -- or that you are a failure or have let yourself or your family down: More than half the days 7. Trouble concentrating on things, such as reading the newspaper or watching television: Not at all 8. Moving or speaking so slowly that other people could have noticed. Or the opposite - being so fidgety or restless that you have been moving around a lot more than usual: Not at all 9. Thoughts that you would be better off , or of hurting yourself in some way: Not at all How difficult have these problems made it for you to do your work, take care of things at home, or get along with other people?: Not difficult at all Total Score: 6 Self-Efficacy 6-Item Scale 90-Day Re-eval Assessment: We would like to know how confident you are in doing certain activities. Please select your confidence level for: Fatigue Select Number: 10 Physical Discomfort or Pain Select Number: 10 Emotional Distress Select Number: 10 Other Symptoms or Health Problems Select Number: 10 Different Tasks and Activities Select Number: 10 Medication Select Number: 10 Total Score:: 10 Nutrition Survey Nutrition Survey Instructions Scoring Instructions Exercise - 30-day Assessment Physician Prescribed Exercise Modalities: Treadmill and SciFit Stepper Exercise - 60-day Assessment Physician Prescribed Exercise Modalities: Treadmill and SciFit Stepper Exercise - 90-day Assessment Visit Date of Eval: 01/12/25 Session #:: 25 Physician Prescribed Exercise Modalities: Treadmill and SciFit Stepper Frequency: 3x/week for 12 weeks [36 sessions] Intensity: 60-80% of age predicted maximum heart rate reserve Duration: 30 - 45 minutes Current METSs:: 4.8 Target Heart Rate:: 86-114 Current RPE:: 12-13 Maximum Excercise HR:: 94 Resting Blood Pressure: 134/72 Maximum Exercise Blood Pressure: 146/82 EKG Type: NSR Outcomes & Goals Goals:: Verbalizes understanding of THR, RPE & goal METS by session 6, Documents in home exercise log/reports 30 min aerobic 5 day/wk by DC, Demonstrates accurate pulse taking by DC and Other additional outcome/goals: see below Intervention & Plan Exercise Program Goals: Instruct on personal THR & RPE, Instruct on MET level & personal MET goal, Show patient to take own pulse /validate performance until accurate, Instruct on home exercise and Other additional plan/int Physical Activity Home Exercise Physical Activity - Home Exercise: Safe Exercise, Warm-up, Self-monitoring, Cool-Down, Home Exercise > 30 min Daily and Sitting Time <3 hours/daily Outcomes & Goals Outcomes/Goals: Demonstrates correct Warm-up/exercise Cool-Down (S3) if = 2.5 METs, Verbalizes symptoms of exercise intolerance by Session 3 (S3), Demonstrate safe equipment use (S3) & follows exercise prescrition (6) and Other: See below Intervention & Plan Plan/Intervention: Instruct warm-up & cool-down if exercising at > 2 METs, Instruct on symptoms of exercise intolerance & actions to take, Instruct & monitor on saf, Assess intial functional capacity & safety risk and Other See below 30-day Reassessments 30 day Reassessments:: Progressing Reassessment Notes & Comments:: Pt continues to improve her exercise intensity. Pt understands the benefits of exercise. Exercise - Final/Discharge Physician Prescribed Exercise Modalities: Treadmill and SciFit Stepper Nutrition - 30-Day Assessment Weight Mgt (Other Care) Height: 4 ft 11 in Weight:: 175 lb BMI: 35.3 Nutrition - 60-Day Assessment Weight Mgt (Other Care) Height: 4 ft 11 in Weight:: 175 lb BMI: 35.3 Core - 30-Day Assessment Hypertension [place] [employer] Hypertension Guidelines Reassessment Notes & Comments:: Pt's BP's are slightly elevated. Low sodium diet is encouraged along with weight loss. Core - Final Assessment Hypertension [place] [employer] Hypertension Guidelines Reassessment Notes & Comments:: Pt's BP's are slightly elevated. Low sodium diet is encouraged along with weight loss. Core - 90 Day Assessment Visit Date of Eval: 01/12/25 Session #:: 25 Medication Compliance Preventative Medication(s):: Aspirin, Ticagrelor/P2Y12 inhibitor, Statin/lipid, Beta kemar and ARB (Angiotensi Rcap) H/O mental health issues: depression, anxiety, or addiction?: No Doesn?t believe in the benefits of treatment?: No Believes medications are unnecessary or harmful?: No Has a concern about medication side effects?: No Expresses concern over the cost of medications?: No Outcomes/Goals: Verbalizes medications,desired effect & common side effects @ DC, Pt self-reports following medication regimen, Keeps card in wallet w/medications listed by DC and Other additional outcome/goals: Interventions/plans: Instruct on medication effects & side effects, Review medication list w/patient every two weeks, Instruct importance of taking meds as ordered & assist problem solving and Other additional Tobacco Use Tobacco Use: Non-smoker Hypertension Hypertension Diagnosis:: Hypertension ICD-10 I10 Resting Blood Pressure:: 134/72 [place] [employer] Hypertension Guidelines Peak Exercise Blood Pressure:: 140/82 Outcomes/Goals: Able to verbalize/achieve optimal blood pressure <130/80, Incorporates diet changes & exercise for blood pressure control by DC and Other additional outcomes/goals Interventions/plan: Instruct on optimal blood pressure, hypertension & medications, Instruct on effects of sodium, alcohol, stress, exercise &hypertension and Other additional plan/interventions 30 day Reassessments:: Progressing Reassessment Notes & Comments:: Pt's BP's are slightly elevated. Low sodium diet is encouraged along with weight loss. Tobacco Cessation Referral Smoking Cessation Referral:: No Individual Education/Counseling:: No Education Schedule Given:: Yes Psychosocial - 30-Day Assess Target Goals Target Goals Referral to Behavioral Health PS - Interventions: Yes: Attend Stress Management Classes Psychosocial - 60-Day Assess Target Goals Target Goals Referral to Behavioral Health PS - Interventions: Yes: Attend Stress Management Classes Psychosocial - 90-Day Assess VIsit Date of Eval: 01/12/25 Session #:: 25 History of previous Mental disease:: No Target Goals Target Goals Psychosocial Test Tool Used:: [employer] QOL Cardiac and PHQ-9 Questionnaire phq-9 Severity Referral to Behavioral Health PS - Interventions: Yes: Attend Stress Management Classes Outcomes/Goals: See list Psychosocial Outcomes/Goals:: ID's personal stressors & 2 strategies to manage stress by discharge and Other Additional outcome/goals: Intervention/Plan: See List Interventions/Plan:: Assess stressors,coping strategies & signs of derpression on admission, Instruct/assist pt to develop coping & personal stress Mgt strategies, Refer to Behavioral Health if appropriate, Refer to Physician if appropriate, Instruct patient to recognize signs & symptoms of depression, Instruct patient to recog and Other additional plan/intervention 30-day Reassessments: 30 day Reassessments:: Met Reassessment Notes & Comments:: Pt has attended stress management class. Pt denies any psychosocial issues at this time Psychosocial - Final Assessmen Target Goals Target Goals Referral to Behavioral Health PS - Interventions: Yes: Attend Stress Management Classes Nutrition - 90-Day Assessment Program Goals Nutrition Program Goals Patient has diagnosis of Hyperlipidemia (ICD E78)?: Yes Visit Date of Eval: 01/12/25 Session #:: 25 Cholesterol/Lipids (Other Core Measures) Determine presence & major risk factors that modify LDL goal: Hypertension or hypertensive medication, Low HDL cholesterol <40 mg/dL*, Family history of premature CHD in Male < 55 years: female <65 yearsFa and Age men > 45 years; women >/= 55 years Outcomes/Goals: Pt IDs own risk factors & lifestyle modifications by Session 10, Verbalizes symptoms of angina & response by session 3., Pt independently manages and Other Additional Outcomes/Goals: Intervention/Plan: Advocate for lipid panel cholesterol medication if applicable, Instruct on personal lipid levels & lipid goals/NCEP guidelines, Instruct on cholesterol and Other additional plan/int Diabetes (Other Core Measures) Diabetes Type: Not Applicable Weight Mgt (Other Care) Height: 4 ft 11 in Weight:: 175 lb BMI: 35.3 Diagnosis High BMI/Morbid Obesity BMI> 35% ICD-10 Z68: Yes Outcomes/Goals: Pt sets, maintains & shows weight loss goal & trend during rehab and Other additional outcomes/goals Intervention/Plan: Instruct on ideal BMI & set weight loss goal w/patient, Assist pt to ID & incorporate diet changes for weight loss by S9, Refer to Structured Weight Loss program as appropriate, Encourage goal of using 250- 300dcal per session for weight loss and Other additional plan/interventions Healthy Eating Habits Will attend diet classes:: Yes Outcomes/Goals:: Consume diet rich in vegs,fruits,whole grain/high fiber,fish,lean meat, Limit sat/trans fats,cholesterol & added salts & sugars and Other additional outcome/goals: Intervention/Plan:: Assess current eating habits and Other Additional plan/interventions 30-day Reassessments:: Met Reassessment Notes & Comments:: Pt attended nutrition class and understands the benefits of a heart healthy low sodium diet. Education Gave educational materials for:: Signs & symptoms of hypoglycemia, Signs & symptoms of hyperglycemia, Relate diabetes to coronary artery disease and Healthy eating Nutrition - Final Assessment Weight Mgt (Other Care) Height: 4 ft 11 in Weight:: 175 lb BMI: 35.3
[2025-01-12 08:18] VITALS: BP 134/72
[2025-01-12 08:29] VITALS: BP 134/72; BMI 35.3
== END 2025-02-06 23:59 ==
LOC: CR 15:15
PROVIDERS: PCP Family Medicine; Referring Provider Internal Medicine Cardiovascular Disease; Visit Provider Internal Medicine Cardiovascular Disease
DX: E78.2 Mixed hyperlipidemia (principal); I10 Essential (primary) hypertension; I25.10 Atherosclerotic heart disease of native coronary artery without angina pectoris
CPT/HCPCS: 93798

== ENCOUNTER 2025-02-28 13:12 | Emergency (ER) | payer MEDICARE, SELFPAY ==
[2025-01-12 08:29] VITALS: BMI 35.3
[2025-02-28 13:12] VITALS: BP 191/98; PULSE 90; RESP 22; TEMP 36.1; O2SAT 97; BMI 37.4
[2025-02-28 14:02] VITALS: O2SAT 98
[2025-02-28] MEDS: Aspirin 81 MG TAB.CHEW 324 MG PO (14:05)
[2025-02-28 14:12] VITALS: BP 158/63; PULSE 78; RESP 18; O2SAT 98
[2025-02-28 14:20] LABS: Absolute Lymphocyte Count 1.18 X10^3/uL (0.83-4.51); Absolute Neutrophil Count 3.2 X10^3/uL (2.0-7.7); Basophil# 0.03 X10^3/uL; Basophil% 0.6 % (0-1); Eosinophil# 0.13 X10^3/uL; Eosinophils% 2.5 % (0-5); Hematocrit 40.5 % (37-47); Hemoglobin 13.2 g/dL (12.0-15.0); Lymphocyte # 1.18 X10^3/ul (0.83-4.51); Mean Corp Hgb Conc 32.6 g/dL (32-36); Mean Corpuscular Hgb 27.7 pg (27.0-32.0); Mean Corpuscular Volume 85.1 fL (81-99); Mean Platelet Vol. 11.3 fl (6.2-12.0); Monocyte# 0.63 X10^3/uL; Monocyte% 12.3 % (0-10); NRBC Flagged by Analyzer 0 % (0-5); Neutrophil # 3.15 X10^3/uL (2.7-7.7); Neutrophil % 61.4 % (47-70); Platelet Count 186 K/mm3 (150-450); RBC Distribution Width CV 13.5 % (11.6-14.6); RBC Distribution Width SD 41.8 fl (35.1-43.9); Red Blood Count 4.76 M/mm3 (4.2-5.4); White Blood Count 5.1 K/mm3 (4.4-11.0)
[2025-02-28 14:35] LABS: D-Dimer Quantitative (DVT/PE) 0.47 FEU/ug/m (0.27-0.49)
[2025-02-28 15:00] VITALS: BP 150/62; PULSE 72; RESP 18; O2SAT 98
[2025-02-28 15:02] LABS: Anion Gap 10 (5-15); BUN 24 mg/dL (4-19); BUN/Creat Ratio 19.7 RATIO (10-20); Calcium,Total 9.5 mg/dL (7.6-11.0); Carbon Dioxide 22.3 mmol/L (21.0-32.0); Chloride 104 mmol/L (98-108); Creatinine, Serum 1.21 mg/dL (0.70-1.20); EST Glomerular Filtration Rate 46 (>60); Estimated Creatinine Clearance 36.16 ml/min (50-250); Glucose 98 mg/dL (70-99); Potassium 5.8 mmol/L (3.3-5.1); Sodium Level 137 mmol/L (133-145); Troponin T High Sensitivity 8 ng/L (<=14)
--- NOTE | 2025-02-28 15:06 | ED.VIS.CHEST ---
HPI History of Present Illness Chief Complaint: Chest Pain Informant: patient Narrative Narrative: Presents with intermittent sharp left-sided chest pain since 2 PM yesterday while doing a puzzle. Constant aching however. No pain down the arms. Chronic dyspnea and cough due to allergies. No nausea or vomiting. She describes history of STEMI this past June while she was vacationing in [place]. She has severe indigestion symptoms left arm numbness that resolved after the cath and stenting. She brought a card noting RCA stent placement. She reports a distal 60% blockage in a vessel cannot tell me which 1. This does not feel like her heart attack. She is currently on aspirin Plavix did not take her dose yet, typically takes at night. She is on a statin. Chronic hypertension history. No diabetes. Denies recent cough. Reports worsening symptoms with deep breath. Denies recent travel or surgeries. No history of PE or DVT. Prior Similar Symptoms: No Recent Illness/Hospitalization: No CVD Risk Factors: Positive for Hypertension and Hypercholesterolemia; Negative for Diabetes, Family History 1' </=55 or Smoking PE Risk Factors: Negative for Recent Travel/Surgery, Recent Immobilization or Prior DVT or PE [facility] Medical History Myocardial infarct Chest pain Hypertension Home Medications ?Medication ?Instructions ?Recorded ?Last Taken ?Type aspirin 81 mg tablet,delayed 81 mg PO DAILY 11/24/18 02/28/25 History release (Aspir-) carvedilol 6.25 mg tablet 6.25 mg PO Q12H 02/28/25 02/28/25 History clopidogrel 75 mg tablet 75 mg PO DAILY 02/28/25 02/27/25 History losartan 100 mg tablet 100 mg PO DAILY 02/28/25 02/28/25 History rosuvastatin 10 mg tablet 10 mg PO QHS 02/28/25 02/27/25 History Allergy/AdvReac Type Severity Reaction Status Date / Time adhesive tape Allergy Itching Verified 02/28/25 13:12 amlodipine (From Norvasc) Allergy Swelling Verified 02/28/25 13:12 cat dander Allergy Unknown Verified 02/28/25 13:12 cigarette smoke Allergy Other Verified 02/28/25 13:12 metoprolol (From Lopressor) Allergy Unknown Verified 02/28/25 13:12 nickel Allergy Rash Verified 02/28/25 13:12 naproxen (From Aleve) AdvReac Nausea/Vom/ Verified 02/28/25 13:12 Diarrhea rofecoxib (From Vioxx) AdvReac Upset Verified 02/28/25 13:12 Stomach Sulfa (Sulfonamide AdvReac Other Verified 02/28/25 13:12 Antibiotics) Surgical History History of coronary artery stent placement Social History housing: house Smoking Status: Former smoker ROS ROS ED Constitutional Constitutional ED: Denies chills, fever(s) or sweats ENT ENT ED: Denies sore throat Cardiovascular Cardiovascular: Reports chest pain; Denies leg edema, palpitations or racing heartbeat Respiratory/Chest Respiratory/Chest: Reports dyspnea; Denies cough or dyspnea on exertion Gastrointestinal Gastrointestinal: Denies abdominal pain, diarrhea, nausea or vomiting Genitourinary Genitourinary ED: Denies dysuria, hematuria or urinary frequency Musculoskeletal Musculoskeletal: Denies back pain, extremity pain or neck pain Integumentary Denies rash or wounds Neurologic Neurologic: Denies headache(s), paresthesias or weakness EXAM Physical Exam Const Vital Signs: 02/28/25 13:12 02/28/25 13:28 02/28/25 14:02 Temperature 97 F L Temperature Source Temporal Pulse Rate 90 Respiratory Rate 22 H Respiratory Effort Short of Breath Blood Pressure 191/98 H Blood Pressure Mean 129 Pulse Ox 97 98 Oxygen Delivery Method Room Air Room Air 02/28/25 14:12 02/28/25 15:00 02/28/25 16:00 Temperature Temperature Source Pulse Rate 78 72 80 Respiratory Rate 18 18 18 Respiratory Effort Blood Pressure 158/63 H 150/62 H 128/75 H Blood Pressure Mean 94 91 92 Pulse Ox 98 98 98 Oxygen Delivery Method Positive well nourished and well developed General Appearance ED: well developed and NAD HEENT Reports moist mucous membranes normocephalic and atraumatic Eyes General Eye ED: Yes normal appearance of both eyes Neck full ROM Chest Wall Chest: Negative for tenderness Resp normal respiratory effort and normal air movement Effort and Inspection: symmetric chest movement; Negative for respiratory distress Cardio regular rate, regular rhythm and no murmurs Peripheral Pulses: pulses 2+ throughout GI normal to inspection, nondistended, normoactive bowel sounds and non-tender Palpation: Negative for guarding or rebound tenderness present Extremity normal to inspection General Extremety ED: Negative for edema or tenderness General Extremity: Negative for edema Neuro oriented x3 and no sensory deficits noted Sensorium / Orientation: awake and alert Skin no rashes or lesions noted and no wounds Heart Score History: Slightly/Non-Suspicious ECG: Normal Age: >/= 65 years Risk Factors: >/= 3 Risk Factors or History of CAD Troponin: </= Normal Limit Score: 4 MDM MDM MDM Narrative Medical decision making narrative: Interventions / MDM: Differential diagnosis: Chest pain, history of coronary disease Diagnosis considered but do not suspect: Pulmonary embolism however D-dimer negative. ACS however EKG and cardiac enzymes negative. My EKG interpretation: Sinus rate of 74, no ST changes. T wave inversion leads III nonspecific. QTc 424. Imaging independently reviewed and interpreted by myself: 2 view chest x-ray: No acute process also read by radiology. External documents reviewed: N/A Test considered but not ordered:N/A ED course: Patient sharp pain intermittently constant ache. Cardiac workup occluding D-dimer. EKG sinus rhythm nonspecific T wave inversions. 1505: Initial troponin 8, D-dimer -0.47. Hemoglobin 13.2. Creatinine 1.21. Hemolyzed potassium of 5.8. Will redraw potassium. Chest x-ray ordered. 1645: Redraw potassium 4.2. Delta troponin negative. Chest x-ray negative. Patient reports mild ache still in her chest. Nonspecific symptoms at this time. Patient will use Tylenol as needed. Patient will follow with her PCP and her cardiology team through [facility]. Discussed tricked return precautions. All questions were answered. Re-evaluation: stable Disposition discussed with patient/family/significant other: Patient Case discussed with consulting clinician: N/A This note was generated with [employer]ume dictation software. It may contain incorrect words, spelling, and punctuation that were not noted in checking the note before signing. Lab Data Attestation: I reviewed the patient's lab results. Labs: Laboratory Results - last 24 hr 02/28/25 02/28/25 13:24 15:27 WBC 5.1 RBC 4.76 Hgb 13.2 Hct 40.5 MCV 85.1 MCH 27.7 MCHC 32.6 RDW Std Deviation 41.8 RDW Coeff of Barb 13.5 Plt Count 186 MPV 11.3 Immature Gran % (Auto) 0.200 Neut % (Auto) 61.4 Lymph % (Auto) 23.0 Gonzales % (Auto) 12.3 H Eos % (Auto) 2.5 Baso % (Auto) 0.6 Absolute Neuts (auto) 3.2 Absolute Lymphs (auto) 1.18 Nucleated RBC % 0 D-Dimer Quant (PE/DVT) 0.47 Sodium 137 Potassium 5.8 H 4.2 Chloride 104 Carbon Dioxide 22.3 Anion Gap 10 BUN 24 H Creatinine 1.21 H Estim Creat Clear Calc 36.16 L Est GFR (MDRD) Non-Af 46 L BUN/Creatinine Ratio 19.7 Glucose 98 Calcium 9.5 Troponin T High Sens 8 Troponin T Hi Sens 2 Hr 9 Radiography Diagnostic Testing: Clinical Impression(s) from Imaging Studies Chest X-Ray 02/28/25 15:15 IMPRESSION: No acute cardiopulmonary process. Reading Location: [facility] Discharge Plan Triage Chief Complaint: Chest Pain ED Provider: Bertin Field Dx/Rx/DC Orders Clinical Impression: Chest pain, History of CAD (coronary artery disease) Instructions: ED Chest Pain, Uncertain Cause Prescriptions: No Action aspirin [Aspir-81] 81 MG tablet,delayed release (DR/EC) 81 mg PO DAILY carvedilol 6.25 mg tablet 6.25 mg PO Q12H Patient Comments: [NO ORIGINAL SIG] clopidogrel 75 mg tablet 75 mg PO DAILY losartan 100 mg tablet 100 mg PO DAILY rosuvastatin 10 mg tablet 10 mg PO QHS Primary Care Provider: Thaddeus Mike Referrals: Thaddeus Mike MD [Primary Care Provider] - 3-5 Days Activity Restrictions/Additional Instructions: Your EKG cardiac enzymes negative today. D-dimer negative. Chest x-ray negative. Continue aspirin and Plavix, did not take tonight's aspirin. Use Tylenol as needed. 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 If you develop worsening symptoms, return to the ED for reevaluation. Print Language: Telugu Disposition Disposition: Home, Self Care
--- NOTE | 2025-02-28 15:15 | RAD_ITS ---
EXAM: XR Chest, 2 Views CLINICAL INDICATION: CHEST PAIN TECHNIQUE: Frontal and lateral views of the chest. COMPARISON: No relevant prior studies available. FINDINGS: LUNGS AND PLEURAL SPACES: Unremarkable. No consolidation. No pneumothorax. HEART: Unremarkable. No cardiomegaly. MEDIASTINUM: Unremarkable. Normal mediastinal contour. BONES/JOINTS: Unremarkable. No acute fracture. RAD/Chest PA and Lateral IMPRESSION: No acute cardiopulmonary process. Reading Location: [facility]
[2025-02-28 16:00] VITALS: BP 128/75; PULSE 80; RESP 18; O2SAT 98
[2025-02-28 16:03] LABS: Troponin T High Sens 2 HR 9 ng/L (<=14)
[2025-02-28 16:20] LABS: Potassium 4.2 mmol/L (3.3-5.1)
[2025-02-28 16:49] VITALS: BP 128/75; PULSE 80; RESP 18; TEMP 36.1; O2SAT 98
== END 2025-02-28 16:55 | disposition home or self-care (01) ==
PROVIDERS: Emergency Provider Emergency Medicine; PCP Family Medicine; Visit Provider Emergency Medicine
DX: R07.9 Chest pain, unspecified (principal); I25.10 Atherosclerotic heart disease of native coronary artery without angina pectoris; E78.00 Pure hypercholesterolemia, unspecified; I10 Essential (primary) hypertension; Z87.891 Personal history of nicotine dependence; Z79.02 Long term (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 antithrombotics/antiplatelets; Z79.82 Long term (current) use of aspirin; Z79.899 Other long term (current) drug therapy; R06.00 Dyspnea, unspecified
CPT/HCPCS: 71046; 80048; 84132; 84484; 85025; 85379; 93005; 99283; A4216

== ENCOUNTER 2025-06-05 05:36 | Observation (INO) | payer MEDICARE, SELFPAY ==
[2025-01-12 08:29] VITALS: BMI 35.3
[2025-06-05] VITALS (11 sets, daily range): BP systolic 130–188; BP diastolic 62–108; PULSE 70–96; RESP 13–18; TEMP 36.1–37; O2SAT 96–100; BMI 37.5; BMI 36.6
--- NOTE | 2025-06-05 05:49 | EKG12_ITS ---
Test Reason : DYSRHYTHMIA Blood Pressure : */* mmHG Vent. Rate : 95 BPM Atrial Rate : 95 BPM P-R Int : 176 ms QRS Dur : 76 ms QT Int : 364 ms P-R-T Axes : 41 -16 33 degrees QTcB Int : 457 ms Normal sinus rhythm Inferior infarct , age undetermined Abnormal ECG Confirmed by MISBAH COREAS, LUIS ([id number]), editorial writer SARTHAK BUSH ([id number]) on 06/06/2025 1:00:15 PM Referred By: BB Confirmed By: LUIS CRAWLEY MD
--- NOTE | 2025-06-05 05:50 | ED.VIS.CHEST ---
HPI History of Present Illness Chief Complaint: Chest Pain Informant: patient Narrative Narrative: Patient presenting with chest discomfort. She states she was getting ready to go to bed at 4 AM which was almost 2 hours ago, when she felt some skipping palpitations, shortness of breath, and then she had some chest discomfort in the left side radiate up to her left neck and jaw. She states the chest discomfort is better but she still feeling like it is hard to take a deep breath and still feeling like her heart is skipping. Denies any recent illness. Denies any recent leg pain or swelling. She states she takes aspirin and clopidogrel because of a history of stents in her heart, but she is on no anticoagulants. [facility] Medical History Myocardial infarct Chest pain Hypertension Home Medications ?Medication ?Instructions ?Recorded ?Last Taken ?Type aspirin 81 mg tablet,delayed 81 mg PO DAILY 11/24/18 02/28/25 History release (Aspir-) carvedilol 6.25 mg tablet 6.25 mg PO Q12H 02/28/25 02/28/25 History clopidogrel 75 mg tablet 75 mg PO DAILY 02/28/25 02/27/25 History losartan 100 mg tablet 100 mg PO DAILY 02/28/25 02/28/25 History rosuvastatin 10 mg tablet 10 mg PO QHS 02/28/25 02/27/25 History Allergy/AdvReac Type Severity Reaction Status Date / Time adhesive tape Allergy Itching Verified 06/05/25 05:42 amlodipine (From Norvasc) Allergy Swelling Verified 06/05/25 05:42 cat dander Allergy Unknown Verified 06/05/25 05:42 cigarette smoke Allergy Other Verified 06/05/25 05:42 metoprolol (From Lopressor) Allergy Unknown Verified 06/05/25 05:42 nickel Allergy Rash Verified 06/05/25 05:42 naproxen (From Aleve) AdvReac Nausea/Vom/ Verified 06/05/25 05:42 Diarrhea rofecoxib (From Vioxx) AdvReac Upset Verified 06/05/25 05:42 Stomach Sulfa (Sulfonamide AdvReac Other Verified 06/05/25 05:42 Antibiotics) Surgical History History of coronary artery stent placement Social History housing: house Smoking Status: Former smoker ROS ROS ED Constitutional Constitutional ED: Denies chills or fever(s) Eyes Eyes: Denies change in vision or diplopia ENT ENT ED: Denies rhinorrhea or sore throat Cardiovascular Cardiovascular: Reports as per HPI, chest pain, palpitations and radiating jaw, neck or arm pain; Denies leg edema Respiratory/Chest Respiratory/Chest: Reports dyspnea; Denies cough Gastrointestinal Gastrointestinal: Denies abdominal pain, diarrhea, nausea or vomiting Genitourinary Genitourinary ED: Denies dysuria or hematuria Musculoskeletal Musculoskeletal: Denies back pain or neck pain Integumentary Denies abscess or rash Neurologic Neurologic: Denies headache(s), paresthesias or weakness Psychiatric Psychiatric: Denies suicidal thoughts EXAM Physical Exam Const Vital Signs: 06/05/25 05:37 06/05/25 05:42 06/05/25 05:49 Temperature 98.6 F Temperature Source Oral Pulse Rate 96 Respiratory Rate 18 Respiratory Effort Short of Breath Blood Pressure 188/108 H Blood Pressure Mean 134 Pulse Ox 96 99 Oxygen Delivery Method Room Air Room Air 06/05/25 06:00 06/05/25 06:56 Temperature Temperature Source Pulse Rate 76 84 Respiratory Rate 16 17 Respiratory Effort Blood Pressure 184/95 H 179/82 H Blood Pressure Mean 124 114 Pulse Ox 99 99 Oxygen Delivery Method Room Air Room Air Positive well nourished and well developed General Appearance ED: well developed and NAD HEENT Reports moist mucous membranes normocephalic and atraumatic Eyes PERRL and EOMs intact bilaterally Neck full ROM and supple Resp normal respiratory effort and clear to auscultation bilaterally Cardio regular rate, regular rhythm and no murmurs Peripheral Pulses: pulses 2+ throughout GI non-tender and non-distended Auscultation: normoactive bowel sounds Palpation: soft Back/Spine no CVA tenderness General Back: other FROM Extremity normal to inspection General Extremety ED: Negative for edema, pulses abnormal or tenderness General Extremity: Negative for edema or pulses abnormal Neuro oriented x3, CN's II-XII intact bilaterally and no sensory deficits noted Sensorium / Orientation: awake and alert Motor Exam: strength 5/5 throughout Skin no rashes or lesions noted and no wounds Heart Score History: Moderately Suspicious ECG: Normal Age: >/= 65 years Risk Factors: >/= 3 Risk Factors or History of CAD Score: 5 MDM MDM MDM Narrative Medical decision making narrative: While evaluating the patient she is on the monitor and is in a sinus rhythm at 88-90, no ectopy, no irregularity and no dysrhythmia while she is feeling like she is having palpitations suggesting the etiology may be noncardiac but given her symptoms, performing a cardiac workup with serial troponin measurements. 1 view chest x-ray my interpretation is normal radiology in agreement. Her EKG is normal, she has had no telemetry events or ectopy, and her labs and initial troponin are normal except for mild elevated creatinine, similar to prior measurements for her. On reexamination, she is feeling better. Blood pressure in the 160s. She is not having any symptoms at the current moment. She states the palpitations and skipping were the most prominent symptom and were much more intense prior to getting here. We will keep her on the monitor until her second troponin comes back. If she develops no other concerning symptoms or telemetry events and her second troponin is negative I would support allowing her to go home with close a patient follow-up, discussed this with her at length she is comfortable with that plan. Lab Data Attestation: I reviewed the patient's lab results. Labs: Laboratory Results - last 24 hr 06/05/25 05:41 WBC 7.8 RBC 5.13 Hgb 14.2 Hct 44.6 MCV 86.9 MCH 27.7 MCHC 31.8 L RDW Std Deviation 42.9 RDW Coeff of Barb 13.4 Plt Count 189 MPV 10.6 Immature Gran % (Auto) 0.300 Neut % (Auto) 54.6 Lymph % (Auto) 28.9 White % (Auto) 13.2 H Eos % (Auto) 2.6 Baso % (Auto) 0.4 Absolute Neuts (auto) 4.2 Absolute Lymphs (auto) 2.24 Nucleated RBC % 0 Sodium 138 Potassium 3.8 Chloride 102 Carbon Dioxide 21.1 Anion Gap 15 BUN 24 H Creatinine 1.33 H Estim Creat Clear Calc 33.56 L Est GFR (MDRD) Non-Af 41 L BUN/Creatinine Ratio 17.7 Glucose 123 H Calcium 9.2 Troponin T High Sens 9 D Radiography Diagnostic Testing: Clinical Impression(s) from Imaging Studies Chest X-Ray 06/05/25 06:00 IMPRESSION: There is blunting of the costophrenic angle on the left consistent with a trace effusion or scar, unchanged. Reading [facility] Rhythm Strip Rhythm Strip: Sinus Rhythm Rate: 95 Ectopy: None EKG Initial EKG: Attestation: I personally reviewed and interpreted this EKG as follows: Interpretation: Sinus Rhythm and No Acute Injury Pattern Comments: Nml axis & intervals; nml EKG Discharge Plan Triage Chief Complaint: Chest Pain ED Provider: Jimmy Gray Dx/Rx/DC Orders Clinical Impression: Palpitations, Chest pain, unspecified Instructions: ED Chest Pain, Uncertain Cause, ED Palpitations Prescriptions: No Action aspirin [Aspir-81] 81 MG tablet,delayed release (DR/EC) 81 mg PO DAILY carvedilol 6.25 mg tablet 6.25 mg PO Q12H Patient Comments: [NO ORIGINAL SIG] clopidogrel 75 mg tablet 75 mg PO DAILY losartan 100 mg tablet 100 mg PO DAILY rosuvastatin 10 mg tablet 10 mg PO QHS Primary Care Provider: Thadedus Mike Referrals: Thaddeus Mike MD [Primary Care Provider] - As soon as possible (Or your heart doctor) Print Language: Yoruba Disposition Disposition: Home, Self Care
[2025-06-05 05:59] LABS: Hematocrit 44.6 % (37-47); Hemoglobin 14.2 g/dL (12.0-15.0); Immature Granulocytes Count 0.020 X10^3/uL (0.0-0.0); Mean Corp Hgb Conc 31.8 g/dL (32-36); Mean Corpuscular Volume 86.9 fL (81-99); Mean Platelet Vol. 10.6 fl (6.2-12.0); NRBC Flagged by Analyzer 0 % (0-5); Platelet Count 189 K/mm3 (150-450); RBC Distribution Width CV 13.4 % (11.6-14.6); RBC Distribution Width SD 42.9 fl (35.1-43.9); Red Blood Count 5.13 M/mm3 (4.2-5.4); White Blood Count 7.8 K/mm3 (4.4-11.0)
--- NOTE | 2025-06-05 06:00 | RAD_ITS ---
PROCEDURE: CHEST 1 VIEW (PORTABLE) 06/05/2025 REASON FOR EXAM: CHEST PAIN TECHNIQUE: Frontal view of the chest. COMPARISON: February 28, 2025 FINDINGS: Heart size is within normal limits. Central vascularity is normal. There is no focal infiltrate or consolidation. There is no pneumothorax. There is blunting of the costophrenic angle on the left consistent with a trace effusion or scar, unchanged. There is no pneumothorax. There is no acute bony abnormality. Aortic calcifications are noted. RAD/Chest 1 View (Portable) IMPRESSION: There is blunting of the costophrenic angle on the left consistent with a trace effusion or scar, unchanged. Reading Location: [facility]
[2025-06-05 06:15] LABS: Anion Gap 15 (5-15); BUN 24 mg/dL (4-19); BUN/Creat Ratio 17.7 RATIO (10-20); Calcium,Total 9.2 mg/dL (7.6-11.0); Carbon Dioxide 21.1 mmol/L (21.0-32.0); Chloride 102 mmol/L (98-108); Estimated Creatinine Clearance 33.56 ml/min (50-250); Glucose 123 mg/dL (70-99); Potassium 3.8 mmol/L (3.3-5.1); Troponin T High Sensitivity 9 ng/L (<=14)
--- OUTSIDE RECORDS SUMMARY | 2025-06-05 06:29 | XMS RPT_ITS | CCD ---
Author Organization [facility] Care Team Providers Care Senior Linux Engineer Name Role Phone Andre Santana MD Primary Care Provider Luc FAUSTIN Referring Unavailable DAISHA JUNIOR Attending Unavailable ANDRE SANTANA Primary Care Unavailable Andre Santana MD Primary Care Provider Andre Santana MD Primary Care Provider Andre Santana MD Primary Care Provider ANDRE SANTANA Primary Care Unavailable Haagen PULP GRINDER FEEDER.CIRCULAR RIPSAW OPERATOR, Trang Unavailable Suppan PULP GRINDER FEEDER.CIRCULAR RIPSAW OPERATOR, Sandy A Unavailable [phone] Suppan PULP GRINDER FEEDER.CIRCULAR RIPSAW OPERATOR, Sandy A Unavailable Suppan PULP GRINDER FEEDER.CIRCULAR RIPSAW OPERATOR, Sandy A Unavailable Esther COREAS, Dr. Travis Primary Care Provider Dr. Rocio Hilario MD Attending Provider Dr. Rocio Hilario MD Referring Provider [phone] MAREN RHODES MD Other Provider Darshan Abarca MD Attending Provider Unavailable Darshan Abarca MD Referring Provider Unavailable TRANG PHILIPPE Referring Unavailable ANDRE SANTANA Primary Care Unavailable TRANG PHILIPPE Referring Unavailable ANDRE SANTANA Primary Care Unavailable ANDRE SANTANA Primary Care Unavailable ANDRE SANTANA Attending Unavailable ANDRE SANTANA Referring Unavailable ANDRE SANTANA Primary Care Unavailable ANDRE SANTANA Referring Unavailable ANDRE SANTANA Primary Care Unavailable ANDRE SANTANA Referring Unavailable ANDRE SANTANA Primary Care Unavailable TRANG PHILIPPE Referring Unavailable ANDRE SANTANA Primary Care Unavailable ESTHER, ANDRE J Attending Unavailable ESTHER, ANDRE J Primary Care Unavailable ESTHER, ANDRE J Primary Care Unavailable ESTHER, ANDRE J Primary Care Unavailable DARSHAN ABARCA Referring Unavailable SLEIKDARSHAN Attending Unavailable ESTHER, ANDRE J Primary Care Unavailable SANDY HOLM Attending Unavailable TRANG PHILIPPE Attending Unavailable ESTHER, ANDRE J Primary Care Unavailable ESTHER, ANDRE J Primary Care Unavailable ESTHER, ANDRE J Primary Care Unavailable SANDY HOLM Referring Unavailable BENDARAM, TULIO PASTOR Referring Unavaila ble ESTHER, ANDRE J Primary Care Unavailable STAR LOFTON Attending Unavailabl e ESTHER, ANDRE J Attending Unavailable ESTHER, ANDRE J Primary Care Unavailable ESTHER, ANDRE J Primary Care Unavailable ESTHER, ANDRE J Primary Care Unavailable FABIANA STEPHENSON Referring Unavailable ESTHER, ANDRE J Primary Care Unavailable SANDY HOLM Attending Unavailable ESTHER, ANDRE J Referring Unavailable ESTHER, ANDRE J Primary Care Unavailable JACQUIE EVANS Attending Unavailable ESTHER, ANDRE J Primary Care Unavailable MAREN RHODES Referring Unavailable MAREN RHODES Attending Unavailable ESTHER, ANDRE J Primary Care Unavailable JACQUIE EVANS Referring Unavailable ESTHER, ANDRE Garza Primary Care Unavailable DARSHAN ABARCA Attending Unavailable MAREN RHODES Referring Unavailable ESTHER, ANDRE J Primary Care Unavailable MAREN RHODES Referring Unavailable ESTHER, ANDRE J Primary Care Unavailable ESTHER, ANDRE J Referring Unavailable BENDARAM, TULIO PASTOR Attending Unavaila ble ESTHER, ANDRE J Primary Care Unavailable ESTHER, ANDRE J Primary Care Unavailable BENDARAM, UTLIOJIMI PASTOR Attending Unavaila ble ESTHER, ANDRE J Primary Care Unavailable ESTHER, ANDRE J Attending Unavailable JAZMIN PALUMBO Referring Unavailable ESTHER, ANDRE J Primary Care Unavailable ESTHER, ANDRE J Referring Unavailable ESTHER, ANDRE J Primary Care Unavailable ESTHER, ANDRE J Primary Care Unavailable ANITHA PACHECO Attending Unavailable SANDY HOLM Referring Unavailable Esther, Andre Primary Care Unavailable Bertin Field Attending Unavailable Darshan Abarca Attending Unavailable Darshan Abarca Referring Unavailable Esther, Andre Primary Care Unavailable Darshan Abarca Attending Unavailable Esther, Andre Primary Care Unavailable Sleik, Khaled Attending Unavailable [facility] Primary Care Unavailable Sleik, Khaled Referring Unavailable Sleemani, Khaled Attending Unavailable [facility] Primary Care Unavailable [facility] Primary [facility] Unavailable Jimmy Gray Attending Unavailable Rocio Hilario Attending Unavailable Sulaiman, Rocio Referring Unavailable [facility] Unavailable MAREN RHODES Consulting Unavailable Sleik, Khaled Attending Unavailable Sleik, Khaled Referring Unavailable [facility] Primary Care Unavailable Sleik, Khaled Attending Unavailable [facility] Primary Care Unavailable Allergies Allergy Classification Reported Allergen(s) Allergy Type Date of Onset Reaction(s) Facility (20 sources) Adhesive Tape; Translations: [ADHESIVE TAPE (ROSINS)] Propensity to adverse reactions to substance 4 Itching [facility] (20 sources) amLODIPine; Translations: [AMLODIPINE BESYLATE] Drug Allergy 7 Swelling [facility] (20 sources) Cat; Translations: [CATS] Propensity to adverse reactions 0 [facility] Work Phone: (20 sources) LORazepam; Translations: [LORAZEPAM] Drug Allergy 0 Other: See Comments, Intolerance, Unknown [facility] (20 sources) Metoprolol; Translations: [METOPROLOL TARTRATE] Drug Allergy 5 Mental Status Change [facility] (20 sources) Naproxen; Translations: [NAPROXEN SODIUM] Drug Allergy 5 GI Upset [facility] Work Phone: (20 sources) nickel; Translations: [NICKEL] Drug Allergy 4 Rash, Unknown [facility] (20 sources) rofecoxib; Translations: [ROFECOXIB] Drug Allergy 5 GI Upset, Unknown, Other [facility] (20 sources) Sulfonamides (Antibiotic); Translations: [SULFA (SULFONAMIDE ANTIBIOTICS)] Propensity to adverse reactions 5 Intolerance, Itching, Rash [facility] (20 sources) cigarette smoke [Other] Propensity to adverse reactions 2 Cough, Itching, Shortness of Breath [facility] (1 source) OTHER; Translations: [OTHER] Propensity to adverse reactions (disorder) 2 [facility] Other [place] [facility] (20 sources) gabapentin; Translations: [GABAPENTIN] Drug Allergy 4 Intolerance, Unknown [facility] Work Phone: (20 sources) Cigarette Smoke; Translations: [CIGARETTE SMOKE] Drug Allergy 0 Shortness of Breath [facility] Work Phone: (3 sources) amLODIPine; Translations: [AMLODIPINE] Drug Allergy 7 Unknown, Swelling [facility] Work Phone: (2 sources) Losartan; Translations: [LOSARTAN] Drug Allergy 7 Swelling [facility] Work Phone: (3 sources) Metoprolol; Translations: [METOPROLOL] Drug Allergy 5 Other, Unknown [facility] Work Phone: (3 sources) Naproxen; Translations: [NAPROXEN] Drug Allergy 5 GI Upset, Unknown [facility] Work Phone: (2 sources) Adhesive Tape-Silicones; Translations: [ADHESIVE TAPE-SILICONES] Drug Intolerance 4 Itching [facility] (4 sources) Cat Dander; Translations: [CAT DANDER] Allergy to substance 0 Unknown [facility] Work Phone: (10 sources) Ticagrelor; Translations: [TICAGRELOR] Drug Allergy 5 Other: See Comments [facility] (2 sources) Adhesive Tape; Translations: [adhesive tape] Allergy to substance 0 Itching [facility] (1 source) Sulfonamides (Antibiotic) Propensity to adverse reactions 0 Other [facility] (1 source) amLODIPine Drug Allergy 5 [facility] Rep[facility] (1 source) Metoprolol Drug Allergy 5 [facility] (1 source) Naproxen Drug Allergy 5 [facility] (1 source) nickel Drug Allergy 5 [facility] (1 source) rofecoxib Drug Allergy 5 [facility] (1 source) Sulfonamides (Antibiotic) Drug allergy (disorder) 5 [facility] Repository Medications Current Medications Medication Drug Class(es) Dates Sig (Normalized) Sig (Original) aspirin 81 mg delayed release oral tablet (20 sources) Platelet Aggregation Inhibitor, Nonsteroidal Anti-inflammatory Drug Start: 11-24-2018 take 1 tablet by mouth once daily Aspirin (Aspir-81) 81 MG tablet,delayed release (DR/EC) Active 81 mg PO DAILY November 24, 2018 1:00am take 1 tablet by mouth once trey y aspirin 81 mg chewable tablet Take 81 mg by mouth once daily. Active azelastine hydrochloride 0.5 mg/ml ophthalmic solution (20 sources) Histamine-1 Receptor Antagonist Start: 07-02-2023 take 1 drop(s) into the eye(s) twice daily Azelastine HCl (OPTIVAR) 0.05 % ophthalmic solution Use 1 Drop in both eyes twice daily. 3 mL 2 07/02/2023 Active Comment on above: Use 1 Drop in both e yes twice daily. Biotin (20 sources) Start: 11-24-2018 take 1 tablet by mouth once daily Biotin 300 MCG tablet Active 300 ug PO DAILY November 24, 2018 1:00am End: 07-18-2024 BIOTIN ORAL Take by mouth on ce daily. 07/18/2024 Discontinued (Discontinued by Patient) BIOTIN ORAL Take by mouth once daily. Active BIOTIN ORAL Take by mouth once daily. 0 Active BIOTIN ORAL Take by mouth. 0 Active Comment on above: Take by mouth. Take by mouth once d aily. carvedilol 6.25 mg oral tablet (20 sources) alpha-Adrenergic Kemar, beta-Adrenergic Kemar Start: 4 End: 5 take 1 tablet by mouth every twelve hours carvedilol (COREG) 6.25 mg tablet Take 1 tablet by mouth every 12 hours. 180 tablet 04/04/2025 07/03/2025 Active cephalexin 500 mg oral capsule (4 sources) Cephalosporin Antibacterial Start: 4 End: 4 take 1 capsule by mouth four times daily cephALEXin (KEFLEX) 500 mg capsule Take 1 capsule by mouth four times daily for 5 days. 20 capsule 08/09/2024 08/14/2024 Active Start: 02-22-2024 End: 02-22-2024 cephALEXin 500 mg cap(s) (KE FLEX) cholecalciferol 0.025 mg oral tablet (20 sources) Vitamin D Start: 11-24-2018 take 1 tablet by mouth once daily Cholecalciferol (Vitamin D3) (Vitamin D3) 1,000 UNIT tablet Active 1000 U PO DAILY November 24, 2018 1:00am End: 07-18-2024 take 1 capsule by mouth once daily Cholecalciferol, Vitamin D3, 25 mcg (1,000 unit) cap Take 1,000 Units by mouth once daily. 07/18/2024 Discontinued (Discontinued by Patient) Comment on above: Take 1,000 Units by mouth once daily. clopidogrel 75 mg oral tablet (15 sources) P2Y12 Platelet Inhibitor Start: End: take 1 tablet by mouth once daily clopidogrel (PLAVIX) 75 mg tablet Take 1 tablet by mouth once daily. 90 tablet 1 04/17/2025 Active cyclobenzaprine hydrochloride 5 mg oral tablet (20 sources) Muscle Relaxant Start: End: take 1 tablet by mouth every eight hours as needed cyclobenzaprine (FLEXERIL) 5 mg tablet Take 1 tablet by mouth three times daily as needed. 30 tablet 2 06/02/2023 Active Comment on above: Take 1 tablet by sara th three times daily as needed. diazePAM 2 mg oral tablet (2 sources) Benzodiazepine Start: End: take 1 mg by mouth twice daily as needed for anxiety Diazepam 2 MG tablet Active 1 mg PO TWICE DAILY NEEDED as needed for Anxiety November 24, 2018 1:00am diphenhydrAMINE hydrochloride 12.5 mg chewable tablet (20 sources) Histamine-1 Receptor Antagonist take 1 tablet by mouth every twenty-four hours as needed diphenhydrAMINE HCl 12.5 mg chewable tablet Take 12.5 mg by mouth at bedtime as needed. Active Comment on above: Take 12.5 mg by mout h at bedtime as needed. esomeprazole 20 mg delayed release oral capsule (20 sources) Proton Pump Inhibitor Start: take 1 capsule by mouth once daily, then take 6 capsules by mouth in the morning esomeprazole (NEXIUM) 20 mg capsule Take 1 capsule by mouth DAILY (6 AM). 07/11/2020 Active Comment on above: Take 1 capsule by mo [facility] DAILY (6 AM). ferrous sulfate (20 sources) ferrous sulfate (SLOW FE ORAL) Take by mouth once daily. Active ferrous sulfate (SLOW FE ORAL) Take by mouth. Active hydroCHLOROthiazide 12.5 mg / losartan potassium 100 mg oral tablet (1 source) Thiazide Diuretic, Angiotensin 2 Receptor Kemar Start: 11-24-2018 Losartan-Hydrochlorothiazide 1 EACH tablet Active 1 NMA PO DAILY November 24, 2018 1:00am iv contrast (will be provided with radiology test) (20 sources) Start: 08-25-2023 iv contrast (will be provide d with radiology test) CT Urogram WO/W Inject, intravenously, once for 1 dose.No IV access, insert saline lock prior to the beginning of sedation, infusion, injection of imaging exam. Discontinue saline lock post exam. If Pt. has a central line or IVAD, may access for administration according to line specific nursing protocol. Once exam is complete flush line and de-access according to line specific nursing protocol in the CT contrast administration guidelines link. 1 Each 08/25/2023 Active Start: 08-25-2023 iv contrast (w ill be provided with radiology test) CT Urogram WO/W Inject, intravenously, once for 1 dose.No IV access, insert saline lock prior to the beginning of sedation, infusion, injection of imaging exam. Discontinue saline lock post exam. If Pt. has a central line or IVAD, may access for administration according to line specific nursing protocol. Once exam is complete flush line and de-access according to line specific nursing protocol in the CT contrast administration guidelines link. 1 Each 0 08/25/2023 Active Comment on above: CT Urogram WO/W Inje ct, intravenously, once for 1 dose.No IV access, insert saline lock prior to the beginning of sedation, infusion, injection of imaging exam. Discontinue saline lock post exam. If Pt. has a central line or IVAD, may access for administration according to line specific nursing protocol. Once exam is complete flush line and de-access according to line specific nursing protocol in the CT contrast administration guidelines link. gtryg-zz-9-dha-epa -phospho-ast (MAXIMUM RED KRILL OMEGA-3) 656-61-15-45 mg cap (20 sources) Start: 4 End: 5 gqtpe-np-7-dha-epa-p hospho-ast (MAXIMUM RED KRILL OMEGA-3) 850-87-82-45 mg cap Indications: ST elevation myocardial infarction (STEMI) involving other coronary artery of inferior wall (HCC) Take 1 tablet by mouth once daily. 90 capsule 3 07/18/2024 07/18/2025 Active LORazepam 0.5 mg oral tablet (1 source) Benzodiazepine Start: 0 take 1 tablet by mouth three times daily as needed for anxiety Lorazepam 0.5 MG tablet Active 0.5 mg PO THREE TIMES A DAY as needed for Anxiety June 26, 2020 10:46pm losartan potassium 100 mg oral tablet (20 sources) Angiotensin 2 Receptor Kemar Start: 0 End: 6 take 1 tablet by mouth once daily losartan (COZAAR) 100 mg tablet Indications: Essential hypertension with goal blood pressure less than 140/90 Take 1 tablet by mouth once daily. 90 tablet 3 12/26/2024 12/26/2025 Active Comment on above: Take 1 tablet by sara th once daily. Magnesium (20 sources) take 1 tablet by mouth once daily Magnesium 200 mg tab Take 1 tablet by mouth once daily. Active take 1 tablet by mouth once trey y Magnesium 200 mg tab Take 1 tablet by mouth once daily. 0 Active Comment on above: Take 1 tablet by sara th once daily. methylPREDNISolone (12 sources) Corticosteroid Start: 08-09-2024 End: 08-15-2024 methylPREDNISolone (MEDROL, JOAQUIN,) 4 mg Dose-Pack Follow dosing instructions, take with food. 21 tablet 08/09/2024 08/15/2024 Active Start: 06-02-2024 End: 06-08-2024 methylPREDNISolone (MEDROL, JOAQUIN,) 4 mg Dose-Pack Indications: Allergic dermatitis Follow dosing instructions, take with food. 21 tablet 06/02/2024 06/08/2024 Start: 06-02-2024 End: 06-08-2024 methylPREDNISolone (MEDROL, JOAQUIN,) 4 mg Dose-Pack Indications: Allergic dermatitis Follow dosing instructions, take with food. 21 tablet 0 06/02/2024 06/08/2024 Active Start: 08-11-2022 End: 08-17-2022 methylPREDNISolone (MEDROL, JOAQUIN,) 4 mg Dose-Pack Indications: Sciatica, right side Follow dosing instructions, take with food. 21 tablet 0 08/11/2022 08/17/2022 Active Comment on above: Follow dosing instru ctions, take with food. nitroglycerin 0.4 mg sublingual tablet (20 sources) Nitrate Vasodilator Start: 07-18-20 End: 07-18-20 nitroglycerin sublingual (NITROSTAT) 0.4 mg SL tablet Indications: ST elevation myocardial infarction (STEMI) involving other coronary artery of inferior wall (HCC) Dissolve 1 tablet under the tongue every 5 minutes as needed for chest pain. 100 tablet 1 07/18/2024 07/18/2025 Active polymyxin b [id number] unt/ml / trimethoprim 1 mg/ml ophthalmic solution (2 sources) Dihydrofolate Reductase Inhibitor Antibacterial, Polymyxin-class Antibacterial Start: 06-17-20 End: 06-22-20 take 1 drop(s) into the eye(s) four times daily trimethoprim-polymyx in (POLYTRIM) 10,000 unit- 1 mg/mL ophthalmic solution Use 1 Drop in the left eye four times daily for 5 days. 1 mL 0 06/17/2023 06/22/2023 Active Comment on above: Use 1 Drop in the le ft eye four times daily for 5 days. rosuvastatin calcium 10 mg oral tablet (20 sources) HMG-CoA Reductase Inhibitor Start: 07-06-20 End: 06-24-20 take 1 tablet by mouth once daily at bedtime rosuvastatin (CRESTOR) 10 mg tablet Take 1 tablet by mouth daily at bedtime. 90 tablet 1 12/26/2024 06/24/2025 Active Start: 07-04-2024 End: 07-18-2024 take 1 tablet by mouth once daily at bedtime rosuvastatin (CRESTOR) 20 mg tablet Take 1 tablet by mouth daily at bedtime. 30 tablet 3 07/04/2024 07/18/2024 Discontinued (Dosage adjustment) traMADol hydrochloride 50 mg oral tablet (20 sources) Opioid Agonist Start: 07-06-2024 take 1 tablet by mouth every six hours as needed traMADol (ULTRAM) 50 mg tablet Take 50 mg by mouth every 6 hours as needed for pain. 07/06/2024 Active Start: 09-02-2022 End: 11-01-2022 take 1 tablet by mouth every six hours as needed for pain traMADol (ULTRAM) 100 mg tablet Indications: Right lumbar radiculitis , Lumbar stenosis with neurogenic claudication , Intractable pain , Foot drop, left Take 1 tablet by mouth every 6 hours as needed for pain for up to 60 days. 120 tablet 1 09/02/2022 11/01/2022 Start: 08-22-2022 End: 08-29-2022 take 1 tablet by mouth every six hours as needed for pain traMADol (ULTRAM) 100 mg tablet Indications: Sciatica, right side Take 1 tablet by mouth every 6 hours as needed for pain for up to 7 days. 28 tablet 0 08/22/2022 08/29/2022 Start: 08-11-2022 End: 08-22-2022 take 1 tablet by mouth every six hours as needed for pain traMADol (ULTRAM) 50 mg tablet Indications: Sciatica, right side Take 1 tablet by mouth every 6 hours as needed for pain. 28 tablet 0 08/11/2022 08/22/2022 Discontinued Comment on above: Take 1 tablet by sara th every 6 hours as needed for pain. Take 1 tablet by sara th every 6 hours as needed for pain for up to 7 days. Take 1 tablet by sara th every 6 hours as needed for pain for up to 60 days. ubidecarenone 100 mg oral capsule (20 sources) coenzyme Q10 (CO Q-10) 100 mg cap capsule Take 100 mg by mouth once daily. Active Comment on above: Take 100 mg by mouth once daily. Completed/Discontinued Medications Medication Drug Class(es) Dates Sig (Normalized) Sig (Original) acetaminophen 500 mg oral tablet (20 sources) Start: 08-01-2021 End: 07-11-2022 take 2 tablets by mouth every six hours as needed acetaminophen (TYLENOL) 500 mg tablet Take 2 tablets by mouth every 6 hours as needed for pain. 08/01/2021 07/11/2022 Discontinued (Other) take 1 tablet by sara th every eight hours as needed acetaminophen (TYLENOL EXTRA STRENGTH) 5 00 mg tablet Take 500 mg by mouth every 8 hours as needed for pain. Active Comment on above: Take 2 tablets by mo uth every 6 hours as needed for pain. acetaminophen 325 mg / HYDROcodone bitartrate 5 mg oral tablet (1 source) Opioid Agonist Start: 1 End: 1 take 1 tablet by mouth every six hours as needed HYDROcodone-acetamino phen (NORCO) 5-325 mg per tablet Indications: Pneumothorax of left lung after biopsy Take 1 tablet by mouth every 6 hours as needed for up to 7 days. 28 tablet 01/02/2021 01/09/2021 Ascorbic Acid (20 sources) Vitamin C End: 4 ascorbic acid (VITAMIN C ORAL) Take by mouth once daily. 07/18/2024 Discontinued (Discontinued by Patient) ascorbic acid (V ITAMIN C ORAL) Take by mouth once daily. Active ascorbic acid (V ITAMIN C ORAL) Take by mouth once daily. 0 Active ascorbic acid (V ITAMIN C ORAL) Take by mouth. 0 Active Comment on above: Take by mouth. Take by mouth once d aily. Calcium (20 sources) Phosphate Binder, Calcium End: 07-18-2024 CALCIUM ORAL Take by mouth once daily. 07/18/2024 Discontinued (Discontinued by Patient) CALCIUM ORAL Marlo e by mouth once daily. Active CALCIUM ORAL Marlo e by mouth once daily. 0 Active CALCIUM ORAL Marlo e by mouth. 0 Active Comment on above: Take by mouth. Take by mouth once d aily. cloNIDine hydrochloride 0.1 mg oral tablet (20 sources) Central alpha-2 Adrenergic Agonist Start: 0 End: 4 take 1 tablet by mouth once daily at bedtime cloNIDine HCl (CATAPRES) 0.1 mg tablet Indications: Essential hypertension with goal blood pressure less than 140/90 Take 1 tablet by mouth daily at bedtime. 90 tablet 3 08/05/2021 05/15/2022 Discontinued Start: 11-24-2018 End: 06-02-2024 take 1 tablet by mouth twice daily cloNIDine HCl (CATAPRES) 0.1 mg tablet Indications: Essential hypertension with goal blood pressure less than 140/90 Take 1 tablet by mouth twice daily. 0 06/17/2023 06/02/2024 Discontinued (Duplicate Entry) Comment on above: Take 1 tablet by sara daily at bedtime. Take 1 tablet by sara twice daily. COMPOUNDED PRESCRIPTION (1 source) Start: 03-01-2019 End: 08-01-2021 COMPOUNDED PRESCRIPTION Speed ankle brace (with wrap around ties) S93.402A Sprain of ligament of left ankle, initial encounter M79.672 Pain of left heel 1 Each 03/01/2019 08/01/2021 Discontinued ELDERBERRY FRUIT (20 sources) End: 07-18-2024 elderberry fruit (ELDERBERRY ORAL) Take by mouth once daily. 07/18/2024 Discontinued (Discontinued by Patient) elderberry fruit (ELDERBERRY ORAL) Take by mouth once daily. Active elderberry fruit (ELDERBERRY ORAL) Take by mouth once daily. 0 Active elderberry fruit (ELDERBERRY ORAL) Take by mouth. 0 Active Comment on above: Take by mouth. Take by mouth once d aily. fluorouracil 20 mg/ml topical solution (8 sources) Nucleoside Metabolic Inhibitor Start: 06-07-2024 End: 07-05-2024 fluorouracil (EFUDEX) 2 % soln Apply to affected area two times a day for 28 days. 10 mL 06/07/2024 07/05/2024 Start: 06-03-2024 End: 07-03-2024 fluorouracil (FLUOROPLEX) 1 % cream Indications: Actinic keratosis Apply to affected area two times a day. 30 g 0 06/03/2024 06/07/2024 Discontinued (Cost of medication) Start: 06-02-2024 End: 06-30-2024 Fluorouracil 0.5 % cream Ind ications: Actinic keratosis Apply to affected area once daily for 28 days. 30 g 0 06/02/2024 06/03/2024 Discontinued (Cost of medication) [id number]-N3 0 1 mg-25 mg-12.5 mg-1 mg tab (20 sources) End: 07-18-2024 [id number]-G4 0 1 mg-25 mg-12.5 mg-1 mg tab Take by mouth once daily. 07/18/2024 Discontinued (Discontinued by Patient) gkrzj-M5-W5-B12- U-W2-MCLR-Q10 1 mg-25 mg-12.5 mg-1 mg tab Take by mouth once daily. Active ixpwr-P4-P4-B12- Z-F4-TVGW-Q10 1 mg-25 mg-12.5 mg-1 mg tab Take by mouth once daily. 0 Active iwbln-L9-Q3-B12- H-Z8-QGRG-Q10 1 mg-25 mg-12.5 mg-1 mg tab Take by mouth. 0 Active Comment on above: Take by mouth. Take by mouth once d aily. garlic preparation 100 mg oral tablet (20 sources) Non-Standardized Food Allergenic Extract End: take 1 tablet by mouth once daily Garlic 100 mg tab Take 1 tablet by mouth once daily. 07/18/2024 Discontinued (Discontinued by Patient) take 1 tablet by mouth once trey y Garlic 100 mg tab Take 1 tablet by mouth once daily. Active take 1 tablet by mouth once trey y Garlic 100 mg tab Take 1 tablet by mouth once daily. 0 Active Comment on above: Take 1 tablet by sara once daily. hydroCHLOROthiazide 12.5 mg oral capsule (20 sources) Thiazide Diuretic Start: 2019 End: 2023 take 1 capsule by mouth once daily hydroCHLOROthiazide 12.5 mg capsule Indications: Essential hypertension with goal blood pressure less than 140/90 Take 1 capsule by mouth once daily. 90 capsule 3 08/05/2021 05/15/2022 Discontinued Comment on above: Take 1 capsule by mo [facility] once daily. hydroCHLOROthiazide 25 mg / triamterene 37.5 mg oral capsule (11 sources) Potassium-spari ng Diuretic, Thiazide Diuretic Start: 2023 End: 2023 take 1 capsule by mouth once daily triamterene-hydroCHLOROth iazide (DYAZIDE) 37.5-25 mg per capsule Indications: Hypertension, essential , Stage 3b chronic kidney disease (HCC) Take 1 capsule by mouth once daily. 90 capsule 1 06/02/2024 06/02/2024 Discontinued (Discontinued by Patient) Start: 09-08-2023 take 1 capsule by mouth once daily triamterene-hydroCHLOROthiazide (DYAZIDE ) 37.5-25 mg per capsule Take 1 capsule by mouth once daily. 30 capsule 5 09/08/2023 Active Comment on above: Take 1 capsule by mo [facility] once daily. krill/om-3/dha/epa/pérez spho/ast (MAXIMUM RED KRILL OMEGA-3 ORAL) (20 sources) End: 07-18-2024 krill/om-3/dha/epa/phospho /ast (MAXIMUM RED KRILL OMEGA-3 ORAL) Take by mouth once daily. 07/18/2024 Discontinued (Discontinued by Patient) krill/om-3/dha/e pa/phospho/ast (MAXIMUM RED KRILL OMEGA-3 ORAL) Take by mouth once daily. Active krill/om-3/dha/e pa/phospho/ast (MAXIMUM RED KRILL OMEGA-3 ORAL) Take by mouth once daily. 0 Active krill/om-3/dha/e pa/phospho/ast (MAXIMUM RED KRILL OMEGA-3 ORAL) Take by mouth. 0 Active Comment on above: Take by mouth. Take by mouth once d aily. lidocaine hydrochloride 0.02 mg/mg topical gel (1 source) Antiarrhythmic, Amide Local Anesthetic Start: 02-22-2024 End: 02-22-2024 lidocaine urojet 2 % 6 mL topical gel (GLYDO) Start: 02-22-2024 End: 02-22-2024 lidocaine urojet 2 % 6 mL to pical gel (GLYDO) 24 hr metoprolol succinate 50 mg extended release oral tablet (10 sources) beta-Adrenergic Kemra Start: 06-02-2024 End: 11-29-2024 take 1 tablet by mouth once daily metoprolol succinate ER (TOPROL XL) 50 mg 24 hr tablet Indications: Essential hypertension with goal blood pressure less than 140/90 Take 1 tablet by mouth once daily. 30 tablet 5 06/02/2024 07/18/2024 Discontinued (Allergic response) niacin 50 mg oral tablet (1 source) Nicotinic Acid Start: 01-02-2021 End: 03-21-2021 take 1 tablet by mouth once daily at breakfast niacin (NIACIN) 50 mg tablet Take 1 tablet by mouth daily with breakfast. Take with a baby Aspirin to avoid flushing 01/02/2021 03/21/2021 Discontinued nitrofurantoin, macrocrystals 25 mg / nitrofurantoin, monohydrate 75 mg oral capsule (1 source) Nitrofuran Antibacterial Start: 10-16-2021 End: 10-16-2021 take 1 capsule by mouth twice daily at mealtime nitrofurantoin monohydrate and macrocrystal (MACROBID) 100 mg capsule Take 1 capsule by mouth twice daily with meals for 7 days. 14 capsule 10/16/2021 10/16/2021 Discontinued olmesartan medoxomil 5 mg oral tablet (1 source) Angiotensin 2 Receptor Kemar Start: 07-06-2024 End: 07-18-2024 take 4 tablets by mouth once daily in the morning olmesartan (BENICAR) 5 mg tablet Take 20 mg by mouth every morning. 07/06/2024 07/18/2024 Discontinued (Discontinued by Patient) microencapsulated potassium chloride 20 meq extended release oral tablet (20 sources) Start: 06-23-2019 End: 09-08-2023 take 1 tablet by mouth twice daily potassium chloride ER (K-DUR, KLOR-CON) 20 mEq tablet Indications: Hypokalemia Take 1 tablet by mouth twice daily. 180 tablet 3 01/14/2021 05/15/2022 Discontinued Start: 11-25-2018 End: 09-12-2024 take 1 tablet by mouth once KLOR-CON M20 20 mEq tablet Take 1 tablet by mouth every afternoon. 07/06/2024 09/12/2024 Discontinued Comment on above: Take 1 tablet by sara twice daily. predniSONE 10 mg oral tablet (3 sources) Start: End: predniSONE (DELTASONE) 10 mg tablet Indications: Rash Take 4 tabs daily x 3 days, then 3 tabs x 3 days, 2 tabs x 3 days, then 1 tab x3 days with food. 30 tablet 0 09/15/2022 09/27/2022 Comment on above: Take 4 tabs daily x 3 days, then 3 tabs x 3 days, 2 tabs x 3 days, then 1 tab x3 days with food. 1000 ml sodium chloride 9 mg/ml injection (1 source) Start: End: 023 inject 1 dose intravenously once 0.9 % sodium chloride (NACL 0.9%) infusion Inject 150 mL/hr intravenously one time only for 1 dose. Administer at rate defined per CT contrast administration specifications. To be provided with radiology test. 1 Each 0 08/25/2023 08/25/2023 Comment on above: Inject 150 mL/hr int ravenously one time only for 1 dose. Administer at rate defined per CT contrast administration specifications. To be provided with radiology test. ticagrelor 90 mg oral tablet (20 sources) Start: End: take 1 tablet by mouth twice daily ticagrelor (BRILINTA) 90 mg tablet Take 1 tablet by mouth two times a day. 180 tablet 09/26/2024 05/16/2025 Discontinued vitamin b6 100 mg oral tablet (20 sources) End: take 1 tablet by mouth once daily pyridoxine, vitamin B6, (VITAMIN B6) 100 mg tablet Take 100 mg by mouth once daily. 06/02/2024 Discontinued Comment on above: Take 100 mg by mouth once daily. Vitamin E 1 mg, Vitamin A 1 mg, Collagen Support Vaginal Cream (CPD) (20 sources) Start: End: Vitamin E 1 mg, Vitamin A 1 mg, Collagen Support Vaginal Cream (CPD) Apply 1 g to affected area three times a week. 20 g 3 04/22/2022 07/18/2024 Discontinued (Discontinued by Patient) Start: 04-22-2022 Vitamin E 1 mg , Vitamin A 1 mg, Collagen Support Vaginal Cream (CPD) Apply 1 g to affected area three times a week. 20 g 3 04/22/2022 Active Comment on above: Apply 1 g to affecte d area three times a week. Zinc (20 sources) End: 07-18-2024 Zinc 50 mg tab Take by mouth. Calcium magnesium 07/18/2024 Discontinued (Discontinued by Patient) Zinc 50 mg tab T tran by mouth. Calcium magnesium Active Zinc 50 mg tab T tran by mouth. Calcium magnesium 0 Active Comment on above: Take by mouth. Calci um magnesium Problems Active Problems Problem Classification Problem Date Documented Date Episodic/Chronic Abdominal pain (1 source) Right upper quadrant pain; Translations: [Right upper quadrant pain] 08-17-2023 Episodic Acquired foot deformities (2 sources) Left foot drop; Translations: [Foot drop, left foot] Episodic Acute myocardial infarction (3 sources) Myocardial infarction; Translations: [ST elevation (STEMI) myocardial infarction involving other coronary artery of inferior wall] Onset: 08-12-2024 07-18-2024 Chronic Anxiety disorders (20 sources) Anxiety; Translations: [Anxiety disorder, unspecified] Onset: 03-10-2008 08-01-2021 Chronic Aortic; peripheral; and visceral artery aneurysms (5 sources) Pseudoaneurysm; 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] Onset: 08-12-2024 07-18-2024 Chronic Calculus of urinary tract (1 source) Kidney stone; Translations: [Calculus of kidney] 02-22-2024 Episodic Cardiac dysrhythmias (20 sources) Atrial tachycardia; Translations: [Supraventricular tachycardia] Onset: 01-14-2021 01-14-2021 Chronic Cardiac dysrhythmias (2 sources) Palpitations; Translations: [Palpitations] 06-17-2023 Episodic Cataract (20 sources) Nuclear sclerosis; Translations: [Age-related nuclear cataract, bilateral] Onset: 05-05-2016 05-05-2016 Chronic Chronic kidney disease (20 sources) Chronic kidney disease stage 3B ; Translations: [Stage 3b chronic kidney disease] Onset: 12-04-2016 Resolved: 12-15-2018 11-05-2021 Chronic Chronic kidney disease (1 source) Chronic kidney disease; Translations: [Stage 3b chronic kidney disease (HCC)] Onset: 11-05-2021 Conditions associated with dizziness or vertigo (20 sources) Peripheral vertigo; Translations: [Other peripheral vertigo, unspecified ear] Onset: 02-24-2008 02-24-2008 Episodic Coronary atherosclerosis and other heart disease (20 sources) Coronary arteriosclerosis; Translations: [Atherosclerotic heart disease of creek coronary artery without angina pectoris] Onset: 07-25-2024 07-25-2024 Chronic Deficiency and other anemia (3 sources) Anemia; Translations: [Anemia, unspecified] 08-16-2024 Episodic Disorders of lipid metabolism (20 sources) Mixed hyperlipidemia; Translations: [Mixed hyperlipidemia] Onset: 03-16-2009 01-02-2021 Chronic Esophageal disorders (20 sources) Gastroesophageal reflux disease; Translations: [Gastro-esophageal reflux disease without esophagitis] Onset: 01-11-2016 Resolved: 07-11-2020 01-02-2021 Chronic Essential hypertension (20 sources) Essential hypertension; Translations: [Essential (primary) hypertension] Onset: 10-15-2006 Resolved: 03-10-2008 08-01-2021 Chronic Heart valve disorders (20 sources) Mitral valve disorder; Translations: [Rheumatic mitral valve disease, unspecified] Onset: 01-14-2021 01-14-2021 Chronic Immunizations and screening for infectious disease (6 sources) Patient encounter status; Translations: [Encounter for immunization] Episodic Inflammation; infection of eye (except that caused by tuberculosis or sexually transmitteddisease) (20 sources) Bilateral punctate keratitis of eyes; Translations: [Punctate keratitis, bilateral] Onset: 03-24-2018 03-24-2018 Chronic Menopausal disorders (4 sources) Atrophic vaginitis; Translations: [Postmenopausal atrophic vaginitis] Chronic Mood disorders (20 sources) Depressive disorder; Translations: [Depression] Onset: 12-01-2009 12-01-2009 Chronic Nonspecific chest pain (6 sources) Chest pain; Translations: [Chest pain, unspecified] Onset: 03-06-2025 Episodic Osteoarthritis (2 sources) Arthritis of bilateral first carpometacarpal joints; Translations: [Bilateral primary osteoarthritis of first carpometacarpal joints] Chronic Other aftercare (1 source) Wound finding; Translations: [Encounter for other specified aftercare] 09-20-2024 Episodic Other aftercare (1 source) Long-term current use of anticoagulant; Translations: [intermediate teacher (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 anticoagulants] 09-20-2024 Episodic Other aftercare (2 sources) Encounter for other specified aftercare; Translations: [Encounter for other specified aftercare] Onset: 09-20-2024 Episodic Other aftercare (2 sources) intermediate teacher (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 anticoagulants; Translations: [detention (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 anticoagulants] Onset: 09-20-2024 Episodic Other aftercare (1 source) Encounter for therapeutic drug level monitoring; Translations: [Medication monitoring encounter] Onset: 05-16-2025 Episodic Other and unspecified benign neoplasm (2 sources) Lipoma of back; Translations: [Benign lipomatous neoplasm of skin and subcutaneous tissue of trunk] Episodic Other and unspecified benign neoplasm (1 source) Lipoma of anterior chest wall; Translations: [Benign lipomatous neoplasm of skin and subcutaneous tissue of trunk] Episodic Other bone disease and musculoskeletal deformities (20 sources) Osteopenia; Translations: [Other specified disorders of bone density and structure, unspecified site] 11-04-2021 Episodic Other circulatory disease (1 source) Raynaud's disease; Translations: [Raynaud's syndrome without gangrene] Chronic Other connective tissue disease (2 sources) Pain in right thumb; Translations: [Pain in right finger(s)] 08-09-2024 Episodic Other eye disorders (20 sources) Bilateral vitreous floaters; Translations: [Other vitreous opacities, bilateral] Onset: 06-30-2017 06-30-2017 Chronic Other hematologic conditions (1 source) ESR raised; Translations: [Elevated erythrocyte sedimentation rate] Episodic Other injuries and conditions due to external causes (1 source) Injury of right ankle; Translations: [Unspecified injury of right ankle, initial encounter] 06-08-2024 Episodic Other lower respiratory disease (20 sources) Pulmonary granuloma; Translations: [Pulmonary fibrosis, unspecified] Onset: 11-16-2023 07-16-2023 Chronic Other lower respiratory disease (1 source) Pulmonary fibrosis, unspecified; Translations: [Granulomatous lung disease (HCC)] Onset: 11-16-2023 Chronic Other lower respiratory disease (1 source) Chest pain on breathing; Translations: [Chest pain on breathing] 07-03-2023 Episodic Other lower respiratory disease (1 source) Cough; Translations: [Acute cough] 01-20-2024 Episodic Other lower respiratory disease (2 sources) Multiple nodules of lung; Translations: [Other nonspecific abnormal finding of lung field] 12-09-2024 Episodic Other lower respiratory disease (1 source) Dyspnea; Translations: [Shortness of breath] 12-09-2024 Episodic Other lower respiratory disease (2 sources) Dyspnea on exertion; Translations: [Other forms of dyspnea] 12-15-2024 Episodic Other nervous system disorders (20 sources) Sleep-wake schedule disorder, delayed phase type; Translations: [Circadian rhythm sleep disorder, delayed sleep phase type] Onset: 11-12-2020 11-12-2020 Chronic Other nervous system disorders (1 source) Chronic pain; Translations: [Other chronic pain] Chronic Other nervous system disorders (1 source) Other chronic pain; Translations: [Other chronic pain] Onset: 10-23-2022 Chronic Other nervous system disorders (1 source) Abnormal sensation; Translations: [Other disturbances of skin sensation] Episodic Other non-traumatic joint disorders (1 source) Multiple joint pain; Translations: [Pain in unspecified joint] Episodic Other non-traumatic joint disorders (2 sources) Pain in right hip joint; Translations: [Pain in right hip] Episodic Other skin disorders (4 sources) Eruption; Translations: [Rash and other nonspecific skin eruption] Episodic Other skin disorders (3 sources) Actinic keratosis; Translations: [Actinic keratosis] 06-02-2024 Episodic Other upper respiratory infections (1 source) Acute upper respiratory infection; Translations: [Acute upper respiratory infection, unspecified] 01-20-2024 Episodic Pleurisy; pneumothorax; pulmonary collapse (2 sources) Pleurisy; Translations: [Pleurisy] Episodic Pneumonia (except that caused by tuberculosis or sexually transmitted disease) (1 source) Lung consolidation; Translations: [Lobar pneumonia, unspecified organism] 07-16-2023 Episodic Residual codes; unclassified (20 sources) Obstructive sleep apnea syndrome; Translations: [Obstructive sleep apnea (adult) (pediatric)] Onset: 02-01-2020 01-02-2021 Chronic Residual codes; unclassified (1 source) Obstructive sleep apnea (adult) (pediatric); Translations: [FRIEDA (obstructive sleep apnea)] Onset: 11-23-2024 Chronic Residual codes; unclassified (1 source) H/O: neoplasm; Translations: [Other specified postprocedural states] Episodic Residual codes; unclassified (2 sources) Pain; Translations: [Pain, unspecified] Episodic Spondylosis; intervertebral disc disorders; other back problems (20 sources) Sciatica; Translations: [Sciatica, right side] Onset: 12-15-2008 Resolved: 10-28-2022 Episodic Systemic lupus erythematosus and connective tissue disorders (20 sources) Sjogren's syndrome; Translations: [Sicca syndrome, unspecified] Onset: 08-16-2021 Resolved: 10-14-2021 Chronic Thyroid disorders (20 sources) Thyroid nodule; Translations: [Nontoxic single thyroid nodule] Onset: 08-16-2021 08-16-2021 Chronic Unclassified (1 source) APPOINTMENT CANCELLED 08-17-2023 Unclassified (1 source) History of peptic ulcer disease 11-24-2018 Past or Other Problems Problem Classification Problem Date Documented Date Episodic/Chronic Administrative/social admission (20 sources) Discharge status; Translations: [Other problems related to medical facilities and other health care] Onset: Resolved: 08-16-2021 Episodic Allergic reactions (5 sources) Allergic disorder of skin; Translations: [Allergic contact dermatitis, unspecified cause] Onset: 4 06-02-2024 Episodic Biliary tract disease (20 sources) Gallstone; Translations: [Calculus of gallbladder without cholecystitis without obstruction] Onset: 0 08-22-2020 Episodic Complications of surgical procedures or medical care (20 sources) Pneumothorax; Translations: [Postprocedural pneumothorax] Onset: 1 01-02-2021 Episodic Coronary atherosclerosis and other heart disease (20 sources) Patient post percutaneous transluminal coronary angioplasty; Translations: [Coronary angioplasty status] Onset: 4 07-25-2024 Episodic Deficiency and other anemia (1 source) Anemia, unspecified; Translations: [Anemia, unspecified type] Onset: 4 Episodic Diabetes mellitus without complication (20 sources) Prediabetes; Translations: [Prediabetes] Onset: 6 12-04-2016 Episodic Diseases of white blood cells (20 sources) Granulomatous disorder; 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] Onset: 1 Resolved: 5 Chronic Disorders of teeth and jaw (20 sources) Temporomandibular joint disorder; Translations: [Unspecified temporomandibular joint disorder, unspecified side] Onset: 7 12-04-2016 Episodic Esophageal disorders (20 sources) Esophagitis; Translations: [Esophagitis, unspecified] Onset: 8 Resolved: 9 03-16-2009 Episodic Fluid and electrolyte disorders (20 sources) Hypokalemia; Translations: [Hypokalemia] Onset: 8 Resolved: 7 Episodic Genitourinary symptoms and ill-defined conditions (20 sources) Increased frequency of urination; Translations: [Frequency of micturition] Onset: 2 Episodic Inflammation; infection of eye (except that caused by tuberculosis or sexually transmitteddisease) (20 sources) Unspecified blepharitis right eye, upper and lower eyelids; Translations: [Blepharitis, unspecified] Onset: 6 07-02-2016 Episodic Malaise and fatigue (20 sources) Malaise and fatigue; Translations: [Other malaise] Onset: 0 Resolved: 9 Episodic Other acquired deformities (20 sources) Somatic dysfunction of rib; Translations: [Biomechanical lesion, unspecified] Onset: 8 Resolved: 7 02-12-2017 Episodic Other and unspecified benign neoplasm (20 sources) Lipoma (clinical); Translations: [Benign lipomatous neoplasm, unspecified] Onset: 7 04-23-2007 Episodic Other and unspecified benign neoplasm (20 sources) History of polyp of colon; Translations: [Personal history of colonic polyps] Onset: 6 01-11-2016 Episodic Other bone disease and musculoskeletal deformities (1 source) Other specified disorders of bone density and structure, unspecified site; Translations: [Osteopenia, unspecified location] Onset: 1 Episodic Other connective tissue disease (20 sources) Nocturnal muscle cramp; Translations: [Cramp and spasm] Onset: 0 12-01-2009 Episodic Other connective tissue disease (1 source) Pain in right finger(s); Translations: [Pain of right thumb] Onset: 4 Episodic Other ear and sense organ disorders (20 sources) Pain of ear structure; Translations: [Otalgia, unspecified ear] Onset: 8 Resolved: 7 02-12-2017 Episodic Other eye disorders (20 sources) Tear film insufficiency; Translations: [Dry eye syndrome of unspecified lacrimal gland] Onset: 6 05-05-2016 Episodic Other eye disorders (20 sources) Meibomian gland dysfunction of bilateral eyes; Translations: [Meibomian gland dysfunction right eye, upper and lower eyelids] Onset: 8 03-24-2018 Episodic Other female genital disorders (20 sources) History of gynecological disorder; Translations: [Personal history of other diseases of the female genital tract] Onset: 2 Episodic Other lower respiratory disease (20 sources) Nodule of lung; Translations: [Solitary pulmonary nodule] Onset: 0 Resolved: 5 01-02-2021 Episodic Other lower respiratory disease (1 source) Other forms of dyspnea; Translations: [GUERRA (dyspnea on exertion)] Onset: 5 Episodic Other lower respiratory disease (1 source) Other nonspecific abnormal finding of lung field; Translations: [Lung nodules] Onset: 5 Episodic Other nervous system disorders (20 sources) Acute postoperative pain; Translations: [Other acute postprocedural pain] Onset: 8 08-01-2021 Episodic Other nutritional; endocrine; and metabolic disorders (20 sources) Obesity; Translations: [Obesity, unspecified] Onset: 0 Resolved: 5 09-21-2010 Chronic Other nutritional; endocrine; and metabolic disorders (20 sources) Obese class II; Translations: [Obesity, unspecified] Onset: 1 Resolved: 5 08-01-2021 Chronic Other skin disorders (1 source) Rash and other nonspecific skin eruption; Translations: [Rash and nonspecific skin eruption] Onset: 5 Episodic Other skin disorders (1 source) Actinic keratosis; Translations: [Actinic keratosis] Onset: 4 Episodic Results Test Name Value Interpretation Reference Range Facility CBC W/Diff, Automatedon 05-10 Absolute Lymph 2.24 X10 3/uL Normal 0.83-4.51 [facility] Comment on above: Performed By: #### L 500.2500, L100.0100, [id number] #### [facility] [address] [place], [address] Absolute Neut 4.2 X10 3/uL Normal 2.0-7.7 [facility] Comment on above: Performed By: #### L 500.2500, L100.0100, [id number] #### [facility] [address] [place], [address] Basophils/100 WBC (Bld) 0.4 % Normal 0-1 [facility] Comment on above: Performed By: #### L 500.2500, L100.0100, [id number] #### [facility] [address] [place], [address] Eosinophils/100 WBC (Bld) 2.6 % Normal 0-5 [facility] Comment on above: Performed By: #### L 500.2500, L100.0100, [id number] #### [facility] [address] [place], [address] Erythrocyte distribution width (RBC) [Ratio] 13.4 % Normal 11.6-14.6 [facility] Comment on above: Performed By: #### L 500.2500, L100.0100, [id number] #### [facility] [address] [place], [address] Hematocrit (Bld) [Volume fraction] 44.6 % Normal 37-47 [facility] Comment on above: Performed By: #### L 500.2500, L100.0100, [id number] #### [facility] [address] [place], [address] Hemoglobin (Bld) [Mass/Vol] 14.2 g/dL Normal 12.0-15.0 [facility] Comment on above: Performed By: #### L 500.2500, L100.0100, [id number] #### [facility] [address] [place], [address] IG% 0.300 Normal 0.0-0.9 [facility] Comment on above: Result Comment: IG% - Immature Granulocytes (promyelocytes, myelocytes and metamyelocytes) > 1% indicates that a LEFT SHIFT is Present. Performed By: #### L 500.2500, L100.0100, [id number] #### [facility] [address] [place], [address] Lymphocytes/100 WBC (Bld) 28.9 % Normal 19-41 [facility] Comment on above: Performed By: #### L 500.2500, L100.0100, [id number] #### [facility] [address] [place], [address] MCH (RBC) [Entitic mass] 27.7 pg Normal 27.0-32.0 [facility] Comment on above: Performed By: #### L 500.2500, L100.0100, [id number] #### [facility] [address] [place], [address] MCHC (RBC) [Mass/Vol] 31.8 g/dL Low 32-36 [facility] Comment on above: Performed By: #### L 500.2500, L100.0100, [id number] #### [facility] [address] [place], [address] MCV (RBC) [Entitic vol] 86.9 fL Normal 81-99 [facility] Comment on above: Performed By: #### L 500.2500, L100.0100, [id number] #### [facility] [address] [place], [address] Monocytes/100 WBC (Bld) 13.2 % High 0-10 [facility] Comment on above: Performed By: #### L 500.2500, L100.0100, [id number] #### [facility] [address] [place], [address] Neutrophils/100 WBC (Bld) 54.6 % Normal 47-70 [facility] Comment on above: Performed By: #### L 500.2500, L100.0100, [id number] #### [facility] [address] [place], [address] Nucleated RBC (Bld) [#/Vol] 0 10*3/uL Normal 0-5 [facility] Comment on above: Performed By: #### L 500.2500, L100.0100, [id number] #### [facility] [address] [place], [address] Platelet mean volume (Bld) [Entitic vol] 10.6 fL Normal 6.2-12.0 [facility] Comment on above: Performed By: #### L 500.2500, L100.0100, [id number] #### [facility] [address] [place], [address] Platelets (Bld) [#/Vol] 189 10*3/uL Normal 150-450 [facility] Comment on above: Performed By: #### L 500.2500, L100.0100, [id number] #### [facility] [address] [place], [address] RBC (Bld) [#/Vol] 5.13 10*6/uL Normal 4.2-5.4 [facility] Comment on above: Performed By: #### L 500.2500, L100.0100, L501.4021 #### [facility] [address] [place], [address] RDW SD 42.9 fl Normal 35.1-43.9 [facility] Comment on above: Performed By: #### L 500.2500, L100.0100, L501.4021 #### [facility] [address] [place], [address] WBC (Bld) [#/Vol] 7.8 10*3/uL Normal 4.4-11.0 [facility] Comment on above: Performed By: #### L 500.2500, L100.0100, L501.4021 #### [facility] [address] [place], [address] CNOVon 05-16-2025 CNOV Normal [facility] CNOVon 04-24-2025 CNOV Normal [facility] US Thyroid glandon [facility] Radiology Study observation (narrative) [facility] Basic metabolic 2000 panelon 04-21-2025 Anion gap [Moles/Vol] 12 mmol/L Normal 8-15 [facility] Comment on above: Order Comment: Speci men Type: BLOOD SPECIMENOrdering Facility: [facility] Address: [address] [place] [address] Performed By: #### 2 4321-2 ####[facility] LABCLIA [id number] [facility] [address] [address] [place] Calcium [Mass/Vol] 9.6 mg/dL Normal 8.5-10.2 [facility] Comment on above: Order Comment: Speci men Type: BLOOD SPECIMENOrdering Facility: [facility] Address: [address] [place] [address] Performed By: #### 2 4321-2 ####[facility] LABCLIA [id number] [address] [address] [place] Chloride [Moles/Vol] 107 mmol/L Normal 98-107 [facility] Comment on above: Order Comment: Speci men Type: BLOOD SPECIMENOrdering Facility: [facility] Address: [address] [place] [address] Performed By: #### 2 4321-2 ####[facility] LABCLIA [id number] [address] [address] [place] CO2 [Moles/Vol] 22 mmol/L Normal 22-30 [facility] Comment on above: Order Comment: Speci men Type: BLOOD SPECIMENOrdering Facility: [facility] Address: [address] [place] [address] Performed By: #### 2 4321-2 ####[facility] LABCLIA [id number] [address] [address] [place] Creatinine [Mass/Vol] 1.26 mg/dL High 0.58-0.96 [facility] Comment on above: Order Comment: Speci men Type: BLOOD SPECIMENOrdering Facility: [facility] Address: [address] [place] [address] Performed By: #### 2 4321-2 ####[facility] LABCLIA [id number] [place] [address] [place] Creatinine and Glomerular filtration rate.predicted panel (S/P/Bld) 44 mL/min/1.73m??? Low >=60 [facility] Comment on above: Order Comment: Lisa baptiste Type: BLOOD SPECIMENOrdering Facility: [facility] Address: [address] [place] [address] Result Comment: Nicole mated Glomerular Filtration Rate (eGFR) is calculated using the 2020 CKD-EPI creatinine equation. This equation utilizes serum creatinine, sex, and age as parameters. The creatinine assay has traceable calibration to isotope dilution-mass spectrometry. Refer to KDIGO guidelines for clinical interpretation. In patients with unstable renal function, e.g. those with acute kidney injury, the eGFR may not accurately reflect actual GFR. Performed By: #### 2 4321-2 ####[facility] LABIA [id number] [place] [address] [place] Glucose [Mass/Vol] 88 mg/dL Normal 74-99 [facility] Comment on above: Order Comment: Lisa baptiste Type: BLOOD SPECIMENOrdering Facility: [facility] Address: [address] [place] [address] Result Comment: The [place] [employer] (ADA) provides guidance for cutoff values for fasting glucose and random glucose. The ADA defines fasting as no caloric intake for at least 8 hours. Fasting plasma glucose results between 100 to 125 mg/dL indicate increased risk for diabetes (prediabetes).Fasting plasma glucose results greater than or equal to 126 mg/dL meet the criteria for diagnosis of diabetes. In the absence of unequivocal hyperglycemia, results should be confirmed by repeat testing. In a patient with classic symptoms of hyperglycemia or hyperglycemic crisis, random plasma glucose results greater than or equal to 200 mg/dL meet the criteria for diagnosis of diabetes.Reference: Standards of Medical Care in Diabetes 2016, [place] [employer]. Diabetes Care. 2016.39(Suppl 1). Performed By: #### 2 4321-2 ####[facility] LABCLIA [id number] [place] [id number] [place] Potassium [Moles/Vol] 4.7 mmol/L Normal 3.7-5.1 [facility] Comment on above: Order Comment: Speci men Type: BLOOD SPECIMENOrdering Facility: [facility] Address: [address] [place] [address] Performed By: #### 2 4321-2 ####[facility] LABCLIA [id number] [place] [address] [place] Sodium [Moles/Vol] 141 mmol/L Normal 136-144 [facility] Comment on above: Order Comment: Speci men Type: BLOOD SPECIMENOrdering Facility: [facility] Address: [address] [place] [address] Performed By: #### 2 4321-2 ####[facility] LABCLIA [id number] [place] [address] [place] Urea nitrogen [Mass/Vol] 28 mg/dL High 7-21 [facility] Comment on above: Order Comment: Speci men Type: BLOOD SPECIMENOrdering Facility: [facility] Address: [address] [place] [address] Performed By: #### 2 4321-2 ####[facility] LABCLIA [id number] [place] [address] [place] CBC W Auto Differential pane l (Bld)on 04-21-2025 Basophils (Bld) [#/Vol] 0.04 10*3/uL Normal <0.11 [facility] Comment on above: Order Comment: Speci men Type: BLOOD SPECIMENOrdering Facility: [facility] Address: [address] [place] [address] Performed By: #### 5 7021-8 ####[facility] LABCLIA [id number] [place] [id number] [place] Basophils/100 WBC (Bld) 0.6 % Normal [facility] Comment on above: Order Comment: Speci men Type: BLOOD SPECIMENOrdering Facility: [facility] Address: [address] [place] [address] Performed By: #### 5 7021-8 ####[facility] LABCLIA [id number] [place] [address] [place] Differential cell count method Nom (Bld) Auto Normal [facility] Comment on above: Order Comment: Speci men Type: BLOOD SPECIMENOrdering Facility: [facility] Address: [address] [place] [address] Performed By: #### 5 7021-8 ####[facility] LABCLIA [id number] [place] [address] [place] Eosinophils (Bld) [#/Vol] 0.15 10*3/uL Normal <0.46 [facility] Comment on above: Order Comment: Speci men Type: BLOOD SPECIMENOrdering Facility: [facility] Address: [address] [place] [address] Performed By: #### 5 7021-8 ####[facility] LABCLIA [id number] [place] [address] [place] Eosinophils/100 WBC (Bld) 2.4 % Normal [facility] Comment on above: Order Comment: Speci men Type: BLOOD SPECIMENOrdering Facility: [facility] Address: [address] [place] [address] Performed By: #### 5 7021-8 ####[facility] LABCLIA [id number] [place] [address] [place] Erythrocyte distribution width (RBC) [Ratio] 13.7 % Normal 11.5-15.0 [facility] Comment on above: Order Comment: Speci men Type: BLOOD SPECIMENOrdering Facility: [facility] Address: [address] [place] [address] Performed By: #### 5 7021-8 ####[facility] LABCLIA [id number] [place] [address] [place] Hematocrit (Bld) [Volume fraction] 39.7 % Normal 36.0-46.0 [facility] Comment on above: Order Comment: Speci men Type: BLOOD SPECIMENOrdering Facility: [facility] Address: [address] [place] [address] Performed By: #### 5 7021-8 ####[facility] LABCLIA [id number] [place] [address] [place] Hemoglobin (Bld) [Mass/Vol] 12.6 g/dL Normal 11.5-15.5 [facility] Comment on above: Order Comment: Speci men Type: BLOOD SPECIMENOrdering Facility: [facility] Address: [address] [place] [address] Performed By: #### 5 7021-8 ####[facility] LABCLIA [id number] [place] [address] [place] Immature granulocytes (Bld) [#/Vol] 10*3/uL Normal <0.10 [facility] Comment on above: Order Comment: Speci men Type: BLOOD SPECIMENOrdering Facility: [facility] Address: [address] [place] [address] Performed By: #### 5 7021-8 ####[facility] LABCLIA [id number] [place] [address] [place] Immature granulocytes/100 WBC (Bld) 0.2 % Normal [facility] Comment on above: Order Comment: Speci men Type: BLOOD SPECIMENOrdering Facility: [facility] Address: [address] [place] [address] Performed By: #### 5 7021-8 ####[facility] LABCLIA [id number] [place] [address] [place] Lymphocytes (Bld) [#/Vol] 1.59 10*3/uL Normal 1.00-4.00 [facility] Comment on above: Order Comment: Speci men Type: BLOOD SPECIMENOrdering Facility: [facility] Address: [address] [place] [address] Performed By: #### 5 7021-8 ####[facility] LABCLIA [id number] [place] [address] [place] Lymphocytes/100 WBC (Bld) 25.0 % Normal [facility] Comment on above: Order Comment: Speci men Type: BLOOD SPECIMENOrdering Facility: [facility] Address: [address] [place] [address] Performed By: #### 5 7021-8 ####[facility] LABIA [id number] [place] [address] [place] MCH (RBC) [Entitic mass] 27.6 pg Normal 26.0-34.0 [facility] Comment on above: Order Comment: Speci men Type: BLOOD SPECIMENOrdering Facility: [facility] Address: [address] [place] [address] Performed By: #### 5 7021-8 ####[facility] LABIA [id number] [place] [address] [place] MCHC (RBC) [Mass/Vol] 31.7 g/dL Normal 30.5-36.0 [facility] Comment on above: Order Comment: Speci men Type: BLOOD SPECIMENOrdering Facility: [facility] Address: [address] [place] [address] Performed By: #### 5 7021-8 ####[facility] LABIA [id number] [place] [id number] [place] MCV (RBC) [Entitic vol] 86.9 fL Normal 80.0-100.0 [facility] Comment on above: Order Comment: Speci men Type: BLOOD SPECIMENOrdering Facility: [facility] Address: [address] [place] [address] Performed By: #### 5 7021-8 ####[facility] LABCLIA [id number] [facility] [address] [place] [address] [place] Monocytes (Bld) [#/Vol] 0.77 10*3/uL Normal <0.87 [facility] Comment on above: Order Comment: Speci men Type: BLOOD SPECIMENOrdering Facility: [facility] Address: [address] [place] [address] Performed By: #### 5 7021-8 ####[facility] LABCLIA [id number] [facility] [address], [facility]95 [place] Monocytes/100 WBC (Bld) 12.1 % Normal [facility] Comment on above: Order Comment: Speci men Type: BLOOD SPECIMENOrdering Facility: [facility] Address: [address] [place] [address] Performed By: #### 5 7021-8 ####[facility] LABCLIA [id number] [address], [place] [address] [place] Neutrophils (Bld) [#/Vol] 3.79 10*3/uL Normal 1.45-7.50 [facility] Comment on above: Order Comment: Speci men Type: BLOOD SPECIMENOrdering Facility: [facility] Address: [address] [place] [address] Performed By: #### 5 7021-8 ####[facility] LABCLIA [id number] [address], [facility]95 [place] Neutrophils/100 WBC (Bld) 59.7 % Normal [facility] Comment on above: Order Comment: Speci men Type: BLOOD SPECIMENOrdering Facility: [facility] Address: [address] [place] [address] Performed By: #### 5 7021-8 ####[facility] LABCLIA [id number] [facility] [address] [place] [address] [place] Nucleated RBC (Bld) [#/Vol] 10*3/uL Normal <0.01 [facility] Comment on above: Order Comment: Speci men Type: BLOOD SPECIMENOrdering Facility: [facility] Address: [address] [place] [address] Performed By: #### 5 7021-8 ####[facility] LABIA [id number] [place] [address] [place] Nucleated RBC/100 WBC (Bld) [Ratio] 0.0 /100 WBC Normal [facility] Comment on above: Order Comment: Speci men Type: BLOOD SPECIMENOrdering Facility: [facility] Address: [address] [place] [address] Performed By: #### 5 7021-8 ####[facility] LABIA [id number] [place] [address] [place] Platelet mean volume (Bld) [Entitic vol] 11.3 fL Normal 9.0-12.7 [facility] Comment on above: Order Comment: Speci men Type: BLOOD SPECIMENOrdering Facility: [facility] Address: [address] [place] [address] Performed By: #### 5 7021-8 ####[facility] LABIA [id number] [place] [address] [place] Platelets (Bld) [#/Vol] 181 10*3/uL Normal 150-400 [facility] Comment on above: Order Comment: Speci men Type: BLOOD SPECIMENOrdering Facility: [facility] Address: [address] [place] [address] Performed By: #### 5 7021-8 ####[facility] LABIA [id number] [place] [address] [place] RBC (Bld) [#/Vol] 4.57 10*6/uL Normal 3.90-5.20 [facility] Comment on above: Order Comment: Speci men Type: BLOOD SPECIMENOrdering Facility: [facility] Address: [address] [place] [address] Performed By: #### 5 7021-8 ####[facility] LABCLIA [id number] [address] [address] [place] WBC (Bld) [#/Vol] 6.35 10*3/uL Normal 3.70-11.00 [facility] Comment on above: Order Comment: Speci men Type: BLOOD SPECIMENOrdering Facility: [facility] Address: [address] [place] [id number] Performed By: #### 5 7021-8 ####[facility] LABCLIA [id number] [address] [address] [place] XR CERVICAL 4V AP/LAT/OBLon 04-21-2025 XR CERVICAL 4V AP/LAT/OBL Normal [facility] CNOVon 04-17-2025 CNOV Normal [facility] ECG COMPLETEon 04-17-2025 ECG COMPLETE Normal [facility] CNPTOUTREACHon 03-15-2025 CNPTOUTREACH Normal [facility] CNOVon 03-07-2025 CNOV Normal [facility] Basic Metabolic Profile (BMP )on 02-28-2025 BUN/CRE 19.7 RATIO Normal 10-20 [facility] Comment on above: Performed By: #### L 500.2500, L100.0100, L501.4021 #### [facility] [address] [place], [address] Calcium [Mass/Vol] 9.5 mg/dL Normal 7.6-11.0 [facility] Comment on above: Performed By: #### L 500.2500, L100.0100, L501.4021 #### [facility] [address] [place], [address] Chloride [Moles/Vol] 104 mmol/L Normal 98-[address] [facility] Comment on above: Performed By: #### L 500.2500, L100.0100, L501.4021 #### [facility] [address] [place], [address] CO2 [Moles/Vol] 22.3 mmol/L Normal 21.0-32.0 [facility] Comment on above: Performed By: #### L 500.2500, L100.0100, L501.4021 #### [facility] [address] [place], [address] Creatinine [Mass/Vol] 1.21 mg/dL High 0.70-1.20 [facility] Comment on above: Performed By: #### L 500.2500, L100.0100, L501.4021 #### [facility] [address] [place], [address] ECRCL 36.16 ml/min Low 50-250 [facility] Comment on above: Performed By: #### L 500.2500, L100.0100, L501.4021 #### [facility] [address] [place], [address] GAP 10 Normal 5-15 [facility] Comment on above: Performed By: #### L 500.2500, L100.0100, L501.4021 #### [facility] [address] [place], [address] GFR/1.73 sq M.predicted among non-blacks MDRD (S/P/Bld) [Vol rate/Area] 46 mL/min/{1.73_m2} Low >60 [facility] Comment on above: Result Comment: mL/m in/1.73m2 CKD-EPI Creatinine Equation (2020) Performed By: #### L 500.2500, L100.0100, L501.4021 #### [facility] [address] [place], [address] Glucose [Mass/Vol] 98 mg/dL Normal 70-99 [facility] Comment on above: Performed By: #### L 500.2500, L100.0100, L501.4021 #### [facility] [address] [place], [address] Potassium [Moles/Vol] 5.8 mmol/L High 3.3-5.1 [facility] Comment on above: Result Comment: Hemo lysis present, Results??could be affected. ?? Performed By: #### L 500.2500, L100.0100, L501.4021 #### [facility] [address] [place], [address] Sodium [Moles/Vol] 137 mmol/L Normal 133-145 [facility] Comment on above: Performed By: #### L 500.2500, L100.0100, L501.4021 #### [facility] [address] [place], [address] Urea nitrogen [Mass/Vol] 24 mg/dL High 4-19 [facility] Comment on above: Performed By: #### L 500.2500, L100.0100, L501.4021 #### [facility] [address] [place], [address] CBC W/Diff, Automatedon 02-08 Absolute Lymph 1.18 X10 3/uL Normal 0.83-4.51 [facility] Comment on above: Performed By: #### L 500.2500, L100.0100, L501.4021 #### [facility] [address] [place], [address] Absolute Neut 3.2 X10 3/uL Normal 2.0-7.7 [facility] Comment on above: Performed By: #### L 500.2500, L100.0100, L501.4021 #### [facility] [address] [place], [address] Basophils/100 WBC (Bld) 0.6 % Normal 0-1 [facility] Comment on above: Performed By: #### L 500.2500, L100.0100, L501.4021 #### [facility] [address] [place], [address] Eosinophils/100 WBC (Bld) 2.5 % Normal 0-5 [facility] Comment on above: Performed By: #### L 500.2500, L100.0100, L501.4021 #### [facility] [address] [place], [address] Erythrocyte distribution width (RBC) [Ratio] 13.5 % Normal 11.6-14.6 [facility] Comment on above: Performed By: #### L 500.2500, L100.0100, L501.4021 #### [facility] [address] [place], [address] Hematocrit (Bld) [Volume fraction] 40.5 % Normal 37-47 [facility] Comment on above: Performed By: #### L 500.2500, L100.0100, L501.4021 #### [facility] [address] [place], [address] Hemoglobin (Bld) [Mass/Vol] 13.2 g/dL Normal 12.0-15.0 [facility] Comment on above: Performed By: #### L 500.2500, L100.0100, L501.4021 #### [facility] [address] [place], [address] IG% 0.200 Normal 0.0-0.9 [facility] Comment on above: Result Comment: IG% - Immature Granulocytes (promyelocytes, myelocytes and metamyelocytes) > 1% indicates that a LEFT SHIFT is Present. Performed By: #### L 500.2500, L100.0100, L501.4021 #### [facility] [address] [place], [address] Lymphocytes/100 WBC (Bld) 23.0 % Normal 19-41 [facility] Comment on above: Performed By: #### L 500.2500, L100.0100, L501.4021 #### [facility] [address] [place], [address] MCH (RBC) [Entitic mass] 27.7 pg Normal 27.0-32.0 [facility] Comment on above: Performed By: #### L 500.2500, L100.0100, L501.4021 #### [facility] [address] [place], [address] MCHC (RBC) [Mass/Vol] 32.6 g/dL Normal 32-36 [facility] Comment on above: Performed By: #### L 500.2500, L100.0100, L501.4021 #### [facility] [address] [place], [address] MCV (RBC) [Entitic vol] 85.1 fL Normal 81-99 [facility] Comment on above: Performed By: #### L 500.2500, L100.0100, L501.4021 #### [facility] [address] [place], [address] Monocytes/100 WBC (Bld) 12.3 % High 0-10 [facility] Comment on above: Performed By: #### L 500.2500, L100.0100, L501.4021 #### [facility] [address] [place], [address] Neutrophils/100 WBC (Bld) 61.4 % Normal 47-70 [facility] Comment on above: Performed By: #### L 500.2500, L100.0100, L501.4021 #### [facility] [address] [place], [address] Nucleated RBC (Bld) [#/Vol] 0 10*3/uL Normal 0-5 [facility] Comment on above: Performed By: #### L 500.2500, L100.0100, L501.4021 #### [facility] [address] [place], [address] Platelet mean volume (Bld) [Entitic vol] 11.3 fL Normal 6.2-12.0 [facility] Comment on above: Performed By: #### L 500.2500, L100.0100, L501.4021 #### [facility] [address] [place], [address] Platelets (Bld) [#/Vol] 186 10*3/uL Normal 150-450 [facility] Comment on above: Performed By: #### L 500.2500, L100.0100, L501.4021 #### [facility] [address] [place], [address] RBC (Bld) [#/Vol] 4.76 10*6/uL Normal 4.2-5.4 [facility] Comment on above: Performed By: #### L 500.2500, L100.0100, L501.4021 #### [facility] [address] [place], [address] RDW SD 41.8 fl Normal 35.1-43.9 [facility] Comment on above: Performed By: #### L 500.2500, L100.0100, L501.4021 #### [facility] [address] [place], [address] WBC (Bld) [#/Vol] 5.1 10*3/uL Normal 4.4-11.0 [facility] Comment on above: Performed By: #### L 500.2500, L100.0100, L501.4021 #### [facility] [address] [place], [address] Chest PA and Lateralon 02-28 Chest PA and Lateral [facility] Services [address] [place] [address] Chest PA and Lateral MR#: [id number] Acct: [id number] Name: TERRI BURCIAGA Rep #: [id number] : 1945 F 79 From: Dustin Field MD PCP: Dr. Andre Santana MD Status: REG ER Study: Chest PA and Lateral Date of Exam: 02/28/25 Exam# [id number] Ordering Dr: Bertin Field DO EXAM: XR Chest, 2 Views CLINICAL INDICATION: CHEST PAIN TECHNIQUE: Frontal and lateral views of the chest. COMPARISON: No relevant prior studies available. FINDINGS: LUNGS AND PLEURAL SPACES: Unremarkable. No consolidation. No pneumothorax. HEART: Unremarkable. No cardiomegaly. MEDIASTINUM: Unremarkable. Normal mediastinal contour. BONES/JOINTS: Unremarkable. No acute fracture. RAD/Chest PA and Lateral IMPRESSION: No acute cardiopulmonary process. Reading Location: [facility] CC: Dr. Bertin Field DO; Dr. Andre Santana MD Medical Clerk: Signed Normal [facility] D-Dimer Quantitative (DVT/PE )on 02-28-2025 D-DIMER QUANT 0.47 FEU/ug/m Normal 0.27-0.49 [facility] Comment on above: Result Comment: NORM AL D-Dimer level (<0.50) indicates no DVT or PE. Performed By: #### L 300.9160 #### [facility] [address] [facility] [place], [address] Emergency Department Summary on 02-28-2025 Emergency Department Summary [facility] Medical Records Department [address] [place] [address] Emergency Department Summary 02/28/25 MR#: [id number] Acct: [id number] Name: TERRI BURCIAGA Rep #: [id number] : 1945 79 From: Bertin Shukla PCP: Dr. Andre Santana MD Status:REG ER Location: ED HPI History of Present Illness Chief Complaint: Chest Pain Informant: patient Narrative Narrative: Presents with intermittent sharp left-sided chest pain since 2 PM yesterday while doing a puzzle. Constant aching however. No pain down the arms. Chronic dyspnea and cough due to allergies. No nausea or vomiting. She describes history of STEMI this past June while she was vacationing in [place]. She has severe indigestion symptoms left arm numbness that resolved after the cath and stenting. She brought a card noting RCA stent placement. She reports a distal 60% blockage in a vessel cannot tell me which 1. This does not feel like her heart attack. She is currently on aspirin Plavix did not take her dose yet, typically takes at night. She is on a statin. Chronic hypertension history. No diabetes. Denies recent cough. Reports worsening symptoms with deep breath. Denies recent travel or surgeries. No history of PE or DVT. Prior Similar Symptoms: No Recent Illness/Hospitalization: No CVD Risk Factors: Positive for Hypertension and Hypercholesterolemia; Negative for Diabetes, Family History 1' PE Risk Factors: Negative for Recent Travel/Surgery, Recent Immobilization or Prior DVT or PE [facility] Medical History Myocardial infarct Chest pain Hypertension Home Medications ???Medication ???Instructions ???Recorded ???Last Taken ???Type aspirin 81 mg tablet,delayed 81 mg PO DAILY 11/24/18 02/28/25 H istory release (Aspir-) carvedilol 6.25 mg tablet 6.25 mg PO Q12H 02/28/25 02/28/25 History clopidogrel 75 mg tablet 75 mg PO DAILY 02/28/25 02/27/25 H istory losartan 100 mg tablet 100 mg PO DAILY 02/28/25 02/28/25 History rosuvastatin 10 mg tablet 10 mg PO QHS 02/28/25 02/27/25 His tory Allergy/AdvReac Type Severity Reaction Status Date / Time adhesive tape Allergy Itching Verified 02/28/25 13:12 amlodipine (From Norvasc) Allergy Swelling Verified 02/28/25 13:12 cat dander Allergy Unknown Verified 02/28/25 13:12 cigarette smoke Allergy Other Verified 02/28/25 13:12 metoprolol (From Lopressor) Allergy Unknown Verified 02/28/25 13:12 nickel Allergy Rash Verified 02/28/25 13:12 naproxen (From Aleve) AdvReac Nausea/Vom/ Verified 02/28/25 13:12 Diarrhea rofecoxib (From Vioxx) AdvReac Upset Verified 02/28/25 13:12 Stomach Sulfa (Sulfonamide AdvReac Other Verified 02/28/25 13:12 Antibiotics) Surgical History History of coronary artery stent placement Social History housing: house Smoking Status: Former smoker ROS ROS ED Constitutional Constitutional ED: Denies chills, fever(s) or sweats ENT ENT ED: Denies sore throat Cardiovascular Cardiovascular: Reports chest pain; Denies leg edema, palpitations or racing heartbeat Respiratory/Chest Respiratory/Chest: Reports dyspnea; Denies cough or dyspnea on exertion Gastrointestinal Gastrointestinal: Denies abdominal pain, diarrhea, nausea or vomiting Genitourinary Genitourinary ED: Denies dysuria, hematuria or urinary frequency Musculoskeletal Musculoskeletal: Denies back pain, extremity pain or neck pain Integumentary Denies rash or wounds Neurologic Neurologic: Denies headache(s), paresthesias or weakness EXAM Physical Exam Const Vital Signs: 02/28/25 13:12 02/28/25 13:28 02/28/25 14:02 Temperature 97 F L Temperature Source Temporal Pulse Rate 90 Respiratory Rate 22 H Respiratory Effort Short of Breath Blood Pressure 191/98 H Blood Pressure Mean 129 Pulse Ox 97 98 Oxygen Delivery Method Room Air Room Air 02/28/25 14:12 02/28/25 15:00 02/28/25 16:00 Temperature Temperature Source Pulse Rate 78 72 80 Respiratory Rate 18 18 18 Respiratory Effort Blood Pressure 158/63 H 150/62 H 128/75 H Blood Pressure Mean 94 91 92 Pulse Ox 98 98 98 Oxygen Delivery Method Positive well nourished and well developed General Appearance ED: well developed and NAD HEENT Reports moist mucous membranes normocephalic and atraumatic Eyes General Eye ED: Yes normal appearance of both eyes Neck full ROM Chest Wall Chest: Negative for tenderness Resp normal respiratory effort and normal air movement Effort and Inspection: symmetric chest movement; Negative for respiratory distress Cardio regular rate, regular rhythm and no murmurs Peripheral Pulses: pulses 2+ thro (more content not included)... Normal [facility] L499.0042on 02-28-2025 Trop T High Sen 9 ng/L Normal <=14 [facility] Comment on above: Performed By: #### L 499.0042 #### [facility] [address] [place], [address] L499.0043on 02-28-2025 Trop T High Sen Normal <=14 [facility] Comment on above: Result Comment: Canc elled via OM: Order cancelled - Patient discharged Performed By: #### L 499.0043 #### [facility] [address] [place], [address] L501.4021on 02-28-2025 Trop T High Sen 8 ng/L Normal <=14 [facility] Comment on above: Result Comment: Hemo lysis present, Results??could be affected. ?? Performed By: #### L 500.2500, L100.0100, L501.4021 #### [facility] [address] [place], [address] Potassiumon 02-28-2025 Potassium [Moles/Vol] 4.2 mmol/L Normal 3.3-5.1 [facility] Comment on above: Result Comment: Hemo lysis present, Results??could be affected. ?? Performed By: #### L 501.5600 #### [facility] [address] [place], [address] CNOVon 02-06-2025 CNOV Normal [facility] BD DXA - AXIAL SKELETONon BD DXA - AXIAL SKELETON Normal [facility] No Panel InformationOrdered By: Matty Hawkins on 01-16-2025 [facility] Card[facility] Rehab [address] [place] [address] CR - Individual Treatment Plan MR#: [id number] Acct: [id number] Name: TERRI BURCIAGA Rep #:[id number] : 1945 79 From: Matty Biggs BS, RVT PCP: Dr. Andre Santana MD DOS: Exercise - Initial Assessment Physician Prescribed Exercise Modalities: Treadmill and SciFit Stepper Nutrition - Initial Assessment Weight Mgt (Other Care) Height: 4 ft 11 in Weight:: 175 lb BMI: 35.3 Psychosocial - Initial Assess Target Goals Target Goals Referral to Behavioral Health PS - Interventions: Yes: Attend Stress Management Classes Patient Health Questionnaire PHQ-9 Screening 90-Day Re-eval Assessment: 1. Little interest or pleasure in doing things: Several days 2. Feeling down, depressed, or hopeless: Not at all 3. Trouble falling or staying asleep, or sleeping too much: Nearly every day 4. Feeling tired or having little energy: Not at all 5. Poor appetite or overeating: Not at all 6. Feeling bad about yourself -- or that you are a failure or have let yourself or your family down: More than half the days 7. Trouble concentrating on things, such as reading the newspaper or watching television: Not at all 8. Moving or speaking so slowly that other people could have noticed. Or the opposite - being so fidgety or restless that you have been moving around a lot more than usual: Not at all 9. Thoughts that you would be better off , or of hurting yourself in some way: Not at all How difficult have these problems made it for you to do your work, take care of things at home, or get along with other people?: Not difficult at all Total Score: 6 Self-Efficacy 6-Item Scale 90-Day Re-eval Assessment: We would like to know how confident you are in doing certain activities. Please select your confidence level for: Fatigue Select Number: 10 Physical Discomfort or Pain Select Number: 10 Emotional Distress Select Number: 10 Other Symptoms or Health Problems Select Number: 10 Different Tasks and Activities Select Number: 10 Medication Select Number: 10 Total Score:: 10 Nutrition Survey Nutrition Survey Instructions Scoring Instructions Exercise - 30-day Assessment Physician Prescribed Exercise Modalities: Treadmill and SciFit Stepper Exercise - 60-day Assessment Physician Prescribed Exercise Modalities: Treadmill and SciFit Stepper Exercise - 90-day Assessment Visit Date of Eval: 01/12/25 Session #:: 25 Physician Prescribed Exercise Modalities: Treadmill and SciFit Stepper Frequency: 3x/week for 12 weeks [36 sessions] Intensity: 60-80% of age predicted maximum heart rate reserve Duration: 30 - 45 minutes Current METSs:: 4.8 Target Heart Rate:: 86-114 Current RPE:: 12-13 Maximum Excercise HR:: 94 Resting Blood Pressure: 134/72 Maximum Exercise Blood Pressure: 146/82 EKG Type: NSR Outcomes & Goals Goals:: Verbalizes understanding of THR, RPE & goal METS by session 6, Documentsin home exercise log/reports 30 min aerobic 5 day/wk by DC, Demonstrates accurate pulse taking by DC and Other additional outcome/goals: see below Intervention & Plan Exercise Program Goals: Instruct on personal THR & RPE, Instruct on MET level & personal MET goal, Show patient to take own pulse /validate performance until accurate, Instruct on home exercise and Other additional plan/int Physical Activity Home Exercise Physical Activity - Home Exercise: Safe Exercise, Warm-up, Self-monitoring, Cool-Down, Home Exercise > 30 min Daily and Sitting Time <3 hours/daily Outcomes & Goals Outcomes/Goals: Demonstrates correct Warm-up/exercise Cool-Down (S3) if = 2.5 METs, Verbalizes symptoms of exercise intolerance by Session 3 (S3), Demonstratesafe equipment use (S3) & follows exercise prescrition (6) and Other: See below Intervention & Plan Plan/Intervention: Instruct warm-up & cool-down if exercising at > 2 METs, Instruct on symptoms of exercise intolerance & actions to take, Instruct & monitor on saf, Assess intial functional capacity & safety risk and Other See below 30-day Reassessments 30 day Reassessments:: Progressing Reassessment Notes & Comments:: Pt continues to improve her exercise intensity. Pt understands the benefits of exercise. Exercise - Final/Discharge Physician Prescribed Exercise Modalities: Treadmill and SciFit Stepper Nutrition - 30-Day Assessment Weight Mgt (Other Care) Height: 4 ft 11 in Weight:: 175 lb BMI: 35.3 Nutrition - 60-Day Assessment Weight Mgt (Other Care) Height: 4 ft 11 in Weight:: 175 lb BMI: 35.3 Core - 30-Day Assessment Hypertension [employer] Hypertension Guidelines Reassessment Notes & Comments:: Pt's BP's are slightly elevated. Low sodium diet is encouraged along with weight loss. Core - Final Assessment Hypertension [employer] Hypertension Guidelines Reassessment Notes & Comments:: Pt's BP's are slightly elevated. Low sodium diet is encouraged along with weight loss. Core - 90 Day Assessment Visit Date of Eval: 01/12/25 Session #:: 25 Medica (more content not included)... [facility] CNPNon 12-26-2024 CNPN Normal [facility] 25([place])[facility] 25-hydroxyvitamin D3 [Mass/Vol] 61.9 ng/mL Normal 31.0-80.0 [facility] Comment on above: Order Comment: Speci men Type: BLOOD SPECIMENOrdering Facility: [facility] Address: [address] [place] [address] Performed By: #### 1 989-3 ####[facility] [id number] [place] [address] [place] C3 SerPl-[facility] 12-20-2024 Complement C3 [Mass/Vol] 156 mg/dL Normal 86-166 [facility] Comment on above: Order Comment: Speci men Type: BLOOD SPECIMENOrdering Facility: [facility] Address: [address] [place] [address] Performed By: #### 4 498-2, 4485-9, 2885-2 ####[facility] [id number] [place] [address] [place] C4 SerPl-ncon 12-20-2024 Complement C4 [Mass/Vol] 30 mg/dL Normal 13-46 [facility] Comment on above: Order Comment: Speci men Type: BLOOD SPECIMENOrdering Facility: [facility] Address: [address] [place] [address] Performed By: #### 4 498-2, 4485-9, 2885-2 ####[facility] [id number] [place] [address] [place] Collagen crosslinked C-telop eptide [Mass/Vol]on 12-20-2024 C TELOPEPTIDE, BETA CROSS LINKED 579 pg/mL Normal 152-858 [facility] Comment on above: Order Comment: Speci men Type: BLOOD SPECIMENOrdering Facility: [facility] Address: [address] [place] [address] Performed By: #### 4 1171-0 ####[facility]IA [id number] [address] [place] IMMUNOFIXATION SCREEN, SERUM on 12-20-2024 INTERPRETATION (MPA) Normal [facility] Comment on above: Order Comment: Speci men Type: BLOOD SPECIMENOrdering Facility: [facility] Address: [address] [place] [address] Performed By: #### I FESC ####[facility]IA [id number] [place] [address] [place] MPA RESULT A poorly defined reg ion of restricted mobility is present that may represent an M protein. Abnormal No M protein is identified. [facility] Comment on above: Order Comment: Speci men Type: BLOOD SPECIMENOrdering Facility: [facility] Address: [address] [place] [address] Performed By: #### I FES ####[facility] LABIA [id number] [address] OF [facility] STAFF REVIEW ([facility]) Reviewed by Gabriela lucas MD Normal [facility] Comment on above: Order Comment: Speci men Type: BLOOD SPECIMENOrdering Facility: [facility] Address: [address] [place] [address] Performed By: #### I FESC ####[facility] [id number] [place] [address] [place] KAPPA/IRVING,FREE,SERon 2024 Immunoglobulin light chains.kappa.free (S) [Mass/Vol] 47.1 mg/L High 3.3-19.4 [facility] Comment on above: Order Comment: Speci men Type: BLOOD SPECIMENOrdering Facility: [facility] Address: [address] [place] [address] Result Comment: Rare ly, increased serum free light chains levels may not be detected or accurately quantified due to prozone phenomenon or in high viscosity samples using this immunoturbidimetric assay. Correlation with other laboratory results and clinical findings is recommended.The [place] Free Light Chain was performed using the Binding Site Optilite immunoturbidimetric method. Result obtained with different assay methods or kits cannot be used interchangeably. Performed By: #### K LFRS ####[facility] LABCLIA [id number] [place] [address] [place] Immunoglobulin light chains.kappa/Immunogl obulin light chains.lambda (S) [Mass ratio] 1.36 Normal 0.26-1.65 [facility] Comment on above: Order Comment: Speci men Type: BLOOD SPECIMENOrdering Facility: [facility] Address: [address] [place] [address] Performed By: #### K LFRS ####[facility] [id number] [place] [address] [place] Immunoglobulin light chains.lambda.free [Mass/Vol] 34.7 mg/L High 5.7-26.3 [facility] Comment on above: Order Comment: Speci men Type: BLOOD SPECIMENOrdering Facility: [facility] Address: [address] [place] [address] Result Comment: Rare ly, increased serum free light chains levels may not be detected or accurately quantified due to prozone phenomenon or in high viscosity samples using this immunoturbidimetric assay. Correlation with other laboratory results and clinical findings is recommended.The L[place] Free Light Chain was performed using the Binding Site Optilite immunoturbidimetric method. Result obtained with different assay methods or kits cannot be used interchangeably. Performed By: #### K LFRS ####[facility] LABIA [id number] [place] [address] [place] MONOCLONAL PROT UR W/INTERPo n 12-20-2024 STAFF REVIEW ([facility]) Reviewed by Gabriela lucas MD [facility] Comment on above: Order Comment: Speci men Type: URINE SPECIMENOrdering Facility: [facility] Address: [address] [place] [address] Performed By: #### U RMPA ####[facility] LABCLIA [id number] [place] [address] [place] UMPA RESULT No M protein is identified. Normal No M protein is identified. [facility] Comment on above: Order Comment: Speci men Type: URINE SPECIMENOrdering Facility: [facility] Address: [address] [place] [address] Performed By: #### U RMPA ####[facility] LABIA [id number] [place] [address] [place] Magnesium SerPl-mCncon 12-20 Magnesium [Mass/Vol] 2.1 mg/dL Normal 1.7-2.3 [facility] Comment on above: Order Comment: Speci men Type: BLOOD SPECIMENOrdering Facility: [facility] Address: [address] [place] [address] Performed By: #### 2 777-1, 51753-9 ####[facility] [id number] [place] [address] [place] POLYMYOSITIS AND DERMATOMYOS ITIS PANELon 12-20-2024 CHINMAY INTERP COMMENT See Note Normal [facility] Comment on above: Order Comment: Speci men Type: BLOOD SPECIMENOrdering Facility: [facility] Address: [address] [place] [address] Result Comment: Spec kled PatternClinical associations: SLE, SSc, SjS, DM, PM, MCTD, UCTD. May alsobe found in healthy individualsMain autoantibodies: Anti-SSA-52 (Ro52), anti-SSA-60 (Ro60),anti-SS-B/LA, anti-Ezequiel-1 (anti-Scl-70), Rust, anti-U1-MAILROOM PERSONNEL,anti-U2-MAILROOM PERSONNEL, anti-Mi-2, anti-p155/140 (TIF1g), anti-Ku, anti-RNApolymerase, anti-DFS70/LEDGF-K55Fotl of AbbreviationsAntisynthetase syndrome (ARS), chronic active hepatitis (CAH),inflammatory myopathies (IM) [dermatomyositis (DM), polymyositis(PM), necrotizing autoimmune myopathy (NAM)], interstitial lungdisease (ILD), juvenile idiopathic arthritis (KALIA), mixedconnective tissue disease (MCTD), primary biliary cholangitis(PBC), rheumatoid arthritis (RA), systemic autoimmune rheumaticdiseases (SARD), Sjogren syndrome (SjS), systemic lupuserythematosus (SLE), systemic sclerosis (SSc), undifferentiatedconnective tissue disease (UCTD).INTERPRETIVE INFORMATION: CHINMAY Interpretive CommentPresence of antinuclear antibodies (CHINMAY) is a hallmark feature ofsystemic autoimmune rheumatic diseases (SARD). However, CHINMAY lacksdiagnostic specificity and is associated with a variety ofdiseases (cancers, autoimmune, infectious, and inflammatoryconditions) and may also occur in healthy individuals in varyingprevalence. The lack of diagnostic specificity requiresconfirmation of positive CHINMAY by more specific serologic tests. CHINMAY(nuclear reactivity) positive patterns reported includecentromere, homogeneous, nuclear dots, nucleolar, or speckled. CHINMAY(cytoplasmic reactivity) positive patterns reported includereticular/AMA, discrete/GW body-like, polar/golgi-like,cytoplasmic speckled or rods and rings. All positive patterns arereported to endpoint titers (1:2560). Reported patterns may helpguide differential diagnosis, although they may not be specificfor individual antibodies or diseases. Mitotic staining patternsnot reported. Negative results do not necessarily rule out SARD. Performed By: #### M YOSPL ####[facility] [id number] [place] [address] ANTINUCLEAR ANTIBODY (CHINMAY) HEP-2, IGG Detected High <1:80 [facility] Comment on above: Order Comment: Speci men Type: BLOOD SPECIMENOrdering Facility: [facility] Address: [address] [place] [address] Performed By: #### M YOSPL ####[facility] [id number] [place] [address] EJ (GLYCYL-TRNA SYNTHETASE) ANTIBODY Negative Normal Negative [facility] Comment on above: Order Comment: Speci men Type: BLOOD SPECIMENOrdering Facility: [facility] Address: [address] [place] [address] Performed By: #### M YOSPL ####[facility] [id number] [place] [address] AUGUSTE (TYROSYL-TRNA SYNTHETASE) AB Negative Normal Negative [facility] Comment on above: Order Comment: Speci men Type: BLOOD SPECIMENOrdering Facility: [facility] Address: [address] [place] [address] Result Comment: Auguste a ntibody negative by line immunoassay. No band corresponding to65 kDa observed by immunoprecipitation. Performed By: #### M YOSPL ####[facility] [id number] [place] [address] KELY-1 (HISTIDYL-TRNA SYNTHETASE) AB, IGG 0 AU/mL Normal 0-40 [facility] Comment on above: Order Comment: Speci men Type: BLOOD SPECIMENOrdering Facility: [facility] Address: [address] [place] [address] Result Comment: INTE RPRETIVE INFORMATION: Kely-1 Antibody, IgG 29 AU/mL or less.........Negative 30-40 AU/mL..............Equivocal 41 AU/mL or greater......PositivePresence of Kely-1 (antihistidyl transfer RNA [t-RNA] synthetase)antibody is associated with polymyositis and may also be seen inpatients with dermatomyositis. Kely-1 antibody is associated withpulmonary involvement (interstitial lung disease), Raynaudphenomenon, arthritis, and mechanical energy engineer's hands (implicated inantisynthetase syndrome). Performed By: #### M YOSPL ####[facility] [id number] [place] [address] [place] (ASPARAGINYL-TRNA SYNTHETASE) AB Negative Normal Negative [facility] Comment on above: Order Comment: Speci men Type: BLOOD SPECIMENOrdering Facility: [facility] Address: [address] [place] [address] Result Comment: Ks a ntibody negative by line immunoassay. No band corresponding to65 kDa observed by immunoprecipitation. Performed By: #### M YOSPL ####[facility] [id number] [place] [address] MDA5 (CADM-140) AB Negative Normal Negative [place] [facility] Comment on above: Order Comment: Speci men Type: BLOOD SPECIMENOrdering Facility: [facility] Address: [address] [place] [address] Performed By: #### M YOSPL ####[facility]IESCLIA [id number] [place] [address] PR-2 (NUCLEAR HELICASE PROTEIN) ANTIBODY Negative Normal Negative [facility] Comment on above: Order Comment: Speci men Type: BLOOD SPECIMENOrdering Facility: [facility] Address: [address] [place] [address] Performed By: #### M YOSPL ####[facility]ITAL[facility]IA [id number] [place] [address] MYOSITIS INTERPRETIVE INFORMATION See Note Normal [facility] Comment on above: Order Comment: Speci men Type: BLOOD SPECIMENOrdering Facility: [facility] Address: [address] [place] [address] Result Comment: INTE RPRETIVE INFORMATION: Dermatomyositis and Polymyositis Panel 2If present, myositis-specific antibodies (MSAs) are specific formyositis, and may be useful in establishing diagnosis as well asprognosis. MSAs are generally regarded as mutually exclusive withrare exceptions; the occurrence of two or more MSAs should becarefully evaluated in the context of patient's clinicalpresentation. Myositis-associated antibodies (Ramya) may be foundin patients with CTD, including overlap syndromes, and aregenerally not specific for myositis. The following table will helpin identifying the association of any antibodies found as eitherMSAs or Ramya.Antibody Specificity . . . . . . . . . . . . MSAs . . . . MAAsJo-1 (histidyl-tRNA synthetase) Ab, IgG . . XPL-12 (alanyl-tRNA synthetase) Antibody . . XPL-7 (threonyl-tRNA synthetase) Antibody . . XEJ (glycyl-tRNA synthetase) Antibody . . . . XOJ (isoleucyl-tRNA synthetase) Antibody . . XSRP (Signal Recognition Particle) Ab . . . . XMi-2 (nuclear helicase protein) Antibody . . XP155/140 Antibody . . . . . . . . . . . . . XTIF-1 gamma (155 kDA) Ab . . . . . . . . . XSAE1 (SUMO activating enzyme) Ab . . . . . . XMDA5 (CADM-140) Ab . . . . . . . . . . . . . XNXP2 (Nuclear matrix protein-2) Ab . . . . . XHa (tyrosyl-tRNA synthetase) Ab. . . . . . . XKs (asparaginyl-tRNA synthetase) Ab . . . . XZo (phenylalanyl-tRNA synthetase) Ab . . . . XThis test was developed and its performance characteristicsdetermined by [facility] [employer]. It has not been cleared orapproved by the [place] Food and Drug Administration. This test wasperformed in a CLIA certified laboratory and is intended forclinical purposes. Performed By: #### M YOSPL ####[facility]IESCLIA [id number] [place] [address] NXP2 (NUCLEAR MATRIX PROTEIN-2) AB Negative Normal Negative [facility] Comment on above: Order Comment: Speci men Type: BLOOD SPECIMENOrdering Facility: [facility] Address: [address] [place] [address] Performed By: #### M YOSPL ####[facility]IESCLIA [id number] [place] [address] OJ (ISOLEUCYL-TRNA SYNTHETASE) ANTIBODY Negative Normal Negative [facility] Comment on above: Order Comment: Speci men Type: BLOOD SPECIMENOrdering Facility: [facility] Address: [address] [place] [address] Performed By: #### M YOSPL ####[facility]IESCLIA [id number] [place] [address] P155/140 ANTIBODY Negative Normal [facility] Comment on above: Order Comment: Speci men Type: BLOOD SPECIMENOrdering Facility: [facility] Address: [address] [place] [address] Performed By: #### M YOSPL ####[facility]IESCLIA [id number] [place] [address] PL-12 (ALANYL-TRNA SYNTHETASE) ANTIBODY Negative Normal Negative [facility] Comment on above: Order Comment: Speci men Type: BLOOD SPECIMENOrdering Facility: [facility] Address: [address] [place] [address] Performed By: #### M YOSPL ####[facility]IESCLIA [id number] [place] [address] PL-7 (THREONYL-TRNA SYNTHETASE) ANTIBODY Negative Normal Negative [facility] Comment on above: Order Comment: Speci men Type: BLOOD SPECIMENOrdering Facility: [facility] Address: [address] [place] [address] Performed By: #### M YOSPL ####[facility]IESCLIA [id number] [place] [address] SAE1 (SUMO ACTIVATING ENZYME) AB Negative Normal Negative [facility] Comment on above: Order Comment: Speci men Type: BLOOD SPECIMENOrdering Facility: [facility] Address: [address] [place] [address] Performed By: #### M YOSPL ####[facility]IESCLIA [id number] [place] [address] SRP (SIGNAL RECOGNITION PARTICLE) AB Negative Normal Negative [facility] Comment on above: Order Comment: Speci men Type: BLOOD SPECIMENOrdering Facility: [facility] Address: [address] [place] [address] Performed By: #### M YOSPL ####[facility]IESCLIA [id number] [place] [address] TIF-1 GAMMA (155 KDA) AB Negative Normal Negative [facility] Comment on above: Order Comment: Speci men Type: BLOOD SPECIMENOrdering Facility: [facility] Address: [address] [place] [address] Performed By: #### M YOSPL ####[facility]IESCLIA [id number] [place] [address] ZO (PHENYLALANYL-TRNA SYNTHETASE) AB Negative Normal Negative [facility] Comment on above: Order Comment: Speci men Type: BLOOD SPECIMENOrdering Facility: [facility] Address: [address] [place] [address] Result Comment: Zo a ntibody negative by line immunoassay. No bands correspondingto 68 and 58 kDa observed by immunoprecipitation.Performed By: [address] [address] Director: Fabiana Garcia MD, PhDCLIA Number: [id number] Performed By: #### M YOALEKS ####[facility] HOLLYWOODIA [id number] [place] [address] PROTEIN ELECTROPHORESIS SERU M (P)on 12-20-2024 Albumin [Mass/Vol] 3.89 g/dL Normal 3.43-5.41 [facility] Comment on above: Order Comment: Speci men Type: BLOOD SPECIMENOrdering Facility: [facility] Address: [address] [place] [address] Performed By: #### L [id number] ####[facility]PITALIA [id number] [place] [address] [place] Alpha 1 globulin Elph [Mass/Vol] 0.33 g/dL Normal 0.18-0.43 [facility] Comment on above: Order Comment: Speci men Type: BLOOD SPECIMENOrdering Facility: [facility] Address: [address] [place] [address] Performed By: #### L [id number] ####[facility] LABIA [id number] [place] [address] [place] Alpha 2 globulin Elph [Mass/Vol] 0.79 g/dL Normal 0.42-0.98 [facility] Comment on above: Order Comment: Speci men Type: BLOOD SPECIMENOrdering Facility: [facility] Address: [address] [place] [address] Performed By: #### L [id number] ####[facility] LABCLIA [id number] [place] [address] [place] Beta globulin Elph [Mass/Vol] 1.19 g/dL High 0.61-1.17 [facility] Comment on above: Order Comment: Speci men Type: BLOOD SPECIMENOrdering Facility: [facility] Address: [address] [place] [address] Performed By: #### L [id number] ####[facility] LABCLIA [id number] [place] [address] [place] Gamma globulin Elph [Mass/Vol] 0.89 g/dL Normal 0.53-1.51 [facility] Comment on above: Order Comment: Speci men Type: BLOOD SPECIMENOrdering Facility: [facility] Address: [address] [place] [address] Performed By: #### L [id number] ####[facility] HOSPITALIA [id number] [place] [address] [place] M-PROTEIN LOCATION Normal [facility] Comment on above: Order Comment: Speci men Type: BLOOD SPECIMENOrdering Facility: [facility] Address: [address] [place] [address] Result Comment: Not Applicable. Performed By: #### L [id number] ####[facility] LABIA [id number] [place] [address] [place] Protein Fractions [Interp] No definitive M protein is identified on protein electrophoresis. Normal No definitive M protein is identified on protein electrophor esis. [facility] Comment on above: Order Comment: Speci men Type: BLOOD SPECIMENOrdering Facility: [facility] Address: [address] [place] [address] Performed By: #### L [id number] ####[facility] LABIA [id number] [place] [address] [place] Protein.monoclonal Elph [Mass/Vol] 0.00 g/dL Normal <=0.00 [facility] Comment on above: Order Comment: Speci men Type: BLOOD SPECIMENOrdering Facility: [facility] Address: [address] [place] [address] Performed By: #### L [id number] ####[facility] LABIA [id number] [place] [address] [place] SPE STAFF REVIEW Reviewed by Gabriela lucas MD [facility] Comment on above: Order Comment: Speci men Type: BLOOD SPECIMENOrdering Facility: [facility] Address: [address] [place] [address] Performed By: #### L [id number] ####[facility] LABIA [id number] [place] [address] [place] Phosphate SerPl-mCncon 12-20 Phosphate [Mass/Vol] 3.6 mg/dL Normal 2.7-4.8 [facility] Comment on above: Order Comment: Speci men Type: BLOOD SPECIMENOrdering Facility: [facility] Address: [address] [place] [address] Performed By: #### 2 777-1, 92586-9 ####[facility] [id number] [place] [address] [place] Prot SerPl-mCncon 12-20-2024 Protein [Mass/Vol] 7.1 g/dL Normal 6.3-8.0 [facility] Comment on above: Order Comment: Speci men Type: BLOOD SPECIMENOrdering Facility: [facility] Address: [address] [place] [address] Performed By: #### 4 498-2, 4485-9, 2885-2 ####[facility] LABIA [id number] [place] [address] [place] Prot/Creat Uron 12-20-2024 Protein/Creatinine (U) [Mass ratio] 0.12 mg/mg Normal <0.15 [facility] Comment on above: Order Comment: Speci men Type: URINE SPECIMENOrdering Facility: [facility] Address: [address] [place] [address] Result Comment: Adul t Proteinuria Categories:<0.15 mg/mg is considered normal to mildly increased0.15 - 0.50 mg/mg is considered moderately increased>0.50 mg/mg is considered severely increasedKDIGO. (2013). KDIGO 2012 Clinical Practice Guideline for the Evaluation and Management of Chronic Kidney Disease. Official Journal of the International Society of Nephrology, 3(1), 1-150. Performed By: #### 2 890-2 ####[facility]ORYCLIA [id number] [place] [address] [place] Protein/Creatinine (U) [Mass ratio]on 12-20-2024 Creatinine (U) [Mass/Vol] 137.7 mg/dL Normal 20.0-300.0 [facility] Comment on above: Order Comment: Speci men Type: URINE SPECIMENOrdering Facility: [facility] Address: [address] [place] [address] Performed By: #### 2 890-2 ####[facility]ORATORYCLIA [id number] [place] [address] [place] Protein (U) [Mass/Vol] 17 mg/dL Normal 0-20 [facility] Comment on above: Order Comment: Speci men Type: URINE SPECIMENOrdering Facility: [facility] Address: [address] [place] [address] Performed By: #### 2 890-2 ####[facility]ORYCLIA [id number] [place] [id number] [place] Urinalysis complete panel (U )on 12-20-2024 Bacteria LM.HPF (Urine sed) [#/Area] Negative Normal Negative [facility] Comment on above: Order Comment: Speci men Type: URINE SPECIMENOrdering Facility: [facility] Address: [address] [place] [address] Performed By: #### 2 4356-8 ####[facility] LABCLIA [id number] [place] [address] [place] Bilirubin Ql (U) Negative Normal Negative [facility] Comment on above: Order Comment: Speci men Type: URINE SPECIMENOrdering Facility: [facility] Address: [address] [place] [address] Performed By: #### 2 4356-8 ####[facility] LABCLIA [id number] [place] [address] [place] Clarity (Unsp spec) Clear Normal Clear [facility] Comment on above: Order Comment: Speci men Type: URINE SPECIMENOrdering Facility: [facility] Address: [address] [place] [address] Performed By: #### 2 4356-8 ####[facility] LABCLIA [id number] [place] [address] [place] Color (U) Yellow Normal Yellow [facility] Comment on above: Order Comment: Speci men Type: URINE SPECIMENOrdering Facility: [facility] Address: [address] [place] [address] Performed By: #### 2 4356-8 ####[facility] LABCLIA [id number] [place] [address] [place] Epithelial cells LM.HPF (Urine sed) [#/Area] None Seen Normal [facility] Comment on above: Order Comment: Speci men Type: URINE SPECIMENOrdering Facility: [facility] Address: [address] [place] [address] Performed By: #### 2 4356-8 ####[facility] LABIA [id number] [place] [address] [place] Glucose Test strip (U) [Mass/Vol] Negative Normal Negative [facility] Comment on above: Order Comment: Speci men Type: URINE SPECIMENOrdering Facility: [facility] Address: [address] [place] [address] Performed By: #### 2 4356-8 ####[facility] LABCLIA [id number] [place] [address] [place] Hemoglobin Ql (U) 3+ Abnormal Negative [facility] Comment on above: Order Comment: Speci men Type: URINE SPECIMENOrdering Facility: [facility] Address: [address] [place] [address] Performed By: #### 2 4356-8 ####[facility] LABCLIA [id number] [place] [address] [place] Hyaline casts (Urine sed) [#/Area] 1-3 /LPF Abnormal 0 /LPF [facility] Comment on above: Order Comment: Speci men Type: URINE SPECIMENOrdering Facility: [facility] Address: [address] [place] [address] Performed By: #### 2 4356-8 ####[facility] LABCLIA [id number] [place] [address] [place] Ketones Ql (U) Negative Normal Negative [facility] Comment on above: Order Comment: Speci men Type: URINE SPECIMENOrdering Facility: [facility] Address: [address] [place] [address] Performed By: #### 2 4356-8 ####[facility] LABCLIA [id number] [place] [address] [place] Leukocyte esterase Test strip Ql (U) Negative Normal Negative [facility] Comment on above: Order Comment: Speci men Type: URINE SPECIMENOrdering Facility: [facility] Address: [address] [place] [address] Performed By: #### 2 4356-8 ####[facility] LABCLIA [id number] [place] [address] [place] Nitrite Ql (U) Negative Normal Negative [facility] Comment on above: Order Comment: Speci men Type: URINE SPECIMENOrdering Facility: [facility] Address: [address] [place] [address] Performed By: #### 2 4356-8 ####[facility] LABIA [id number] [place] [address] [place] pH (U) 5.5 [pH] Normal <8.5 [facility] Comment on above: Order Comment: Speci men Type: URINE SPECIMENOrdering Facility: [facility] Address: [address] [place] [address] Performed By: #### 2 4356-8 ####[facility] LABIA [id number] [place] [address] [place] Protein (U) [Mass/Vol] Trace Abnormal Negative [facility] Comment on above: Order Comment: Speci men Type: URINE SPECIMENOrdering Facility: [facility] Address: [address] [place] [address] Performed By: #### 2 4356-8 ####[facility] LABIA [id number] [place] [address] [place] RBC LM.HPF (Urine sed) [#/Area] 0-2 /HPF Normal 0-2 /HPF [facility] Comment on above: Order Comment: Speci men Type: URINE SPECIMENOrdering Facility: [facility] Address: [address] [place] [address] Performed By: #### 2 4356-8 ####[facility] LABIA [id number] [place] [address] [place] Specific gravity (U) [Rel density] 1.019 Normal 1.005-1.030 [facility] Comment on above: Order Comment: Speci men Type: URINE SPECIMENOrdering Facility: [facility] Address: [address] [place] [address] Performed By: #### 2 4356-8 ####[facility] LABCLIA [id number] [place] [address] [place] Urobilinogen Ql (U) 0.2 EU/dL Normal 0.2-1.0 EU/dL [facility] Comment on above: Order Comment: Speci men Type: URINE SPECIMENOrdering Facility: [facility] Address: [address] [place] [address] Performed By: #### 2 4356-8 ####[facility] LABCLIA [id number] [place] [address] [place] WBC LM.HPF (Urine sed) [#/Area] 0-5 /HPF Normal 0-5 /HPF [facility] Comment on above: Order Comment: Speci men Type: URINE SPECIMENOrdering Facility: [facility] Address: [address] [place] [address] Performed By: #### 2 4356-8 ####[facility] LABCLIA [id number] [place] [address] [place] [address] CHEST WO IVCONon 12-19-19 CT CHEST WO IVCON Normal [facility] CNPNon 12-16-2024 CNPN Normal [facility] CNOVon 12-15-2024 CNOV Normal [facility] CNOVon 12-09-2024 CNOV Normal [facility] CNPNon 11-28-2024 CNPN Normal [facility] CNPNon 11-25-2024 CNPN Normal [facility] US THYROID/PARATHYROIDon US THYROID/PARATHYROID Normal [facility] Basic metabolic 2000 panelon 11-23-2024 Anion gap [Moles/Vol] 14 mmol/L Normal 8-15 [facility] Comment on above: Order Comment: Speci men Type: BLOOD SPECIMENOrdering Facility: [facility] Address: [address] [place] [address] Performed By: #### 3 016-3, 66503-7, 69955-5 ####[facility] LABCLIA [id number] [place] [address] [place] Calcium [Mass/Vol] 9.7 mg/dL Normal 8.5-10.2 [facility] Comment on above: Order Comment: Speci men Type: BLOOD SPECIMENOrdering Facility: [facility] Address: [address] [place] [address] Performed By: #### 3 016-3, , ####[facility] LABCLIA [id number] [place] [address] [place] Chloride [Moles/Vol] 104 mmol/L Normal 98-107 [facility] Comment on above: Order Comment: Speci men Type: BLOOD SPECIMENOrdering Facility: [facility] Address: [address] [place] [address] Performed By: #### 3 016-3, , ####[facility] LABCLIA [id number] [place] [address] [place] CO2 [Moles/Vol] 23 mmol/L Normal 22-30 [facility] Comment on above: Order Comment: Speci men Type: BLOOD SPECIMENOrdering Facility: [facility] Address: [address] [place] [address] Performed By: #### 3 016-3, , ####[facility] LABCLIA [id number] [place] [address] [place] Creatinine [Mass/Vol] 1.17 mg/dL High 0.58-0.96 [facility] Comment on above: Order Comment: Speci men Type: BLOOD SPECIMENOrdering Facility: [facility] Address: [address] [place] [address] Performed By: #### 3 016-3, , ####[facility] LABCLIA [id number] [place] [address] [place] Creatinine and Glomerular filtration rate.predicted panel (S/P/Bld) 48 mL/min/1.73m??? Low >=60 [facility] Comment on above: Order Comment: Lisa baptiste Type: BLOOD SPECIMENOrdering Facility: [facility] Address: [address] [place] [address] Result Comment: Nicole mated Glomerular Filtration Rate (eGFR) is calculated using the 2020 CKD-EPI creatinine equation. This equation utilizes serum creatinine, sex, and age as parameters. The creatinine assay has traceable calibration to isotope dilution-mass spectrometry. Refer to KDIGO guidelines for clinical interpretation. In patients with unstable renal function, e.g. those with acute kidney injury, the eGFR may not accurately reflect actual GFR. Performed By: #### 3 016-3, 22593-0, 45409-0 ####[facility] LABIA [id number] [place] [address] [place] Glucose [Mass/Vol] 91 mg/dL Normal 74-99 [facility] Comment on above: Order Comment: Lisa baptiste Type: BLOOD SPECIMENOrdering Facility: [facility] Address: [address] [place] [address] Result Comment: The [place] [employer] (ADA) provides guidance for cutoff values for fasting glucose and random glucose. The ADA defines fasting as no caloric intake for at least 8 hours. Fasting plasma glucose results between 100 to 125 mg/dL indicate increased risk for diabetes (prediabetes).Fasting plasma glucose results greater than or equal to 126 mg/dL meet the criteria for diagnosis of diabetes. In the absence of unequivocal hyperglycemia, results should be confirmed by repeat testing. In a patient with classic symptoms of hyperglycemia or hyperglycemic crisis, random plasma glucose results greater than or equal to 200 mg/dL meet the criteria for diagnosis of diabetes.Reference: Standards of Medical Care in Diabetes 2016, [place] [employer]. Diabetes Care. 2016.39(Suppl 1). Performed By: #### 3 016-3, 20905-4, 56947-8 ####[facility] LABIA [id number] [place] [address] [place] Potassium [Moles/Vol] 4.2 mmol/L Normal 3.7-5.1 [facility] Comment on above: Order Comment: Speci men Type: BLOOD SPECIMENOrdering Facility: [facility] Address: [address] [place] [address] Performed By: #### 3 016-3, , 24031-7 ####[facility] LABCLIA [id number] [place] [address] [place] Sodium [Moles/Vol] 141 mmol/L Normal 136-144 [facility] Comment on above: Order Comment: Speci men Type: BLOOD SPECIMENOrdering Facility: [facility] Address: [address] [place] [address] Performed By: #### 3 016-3, , ####[facility] LABCLIA [id number] [place] [address] [place] Urea nitrogen [Mass/Vol] 22 mg/dL High 7-21 [facility] Comment on above: Order Comment: Speci men Type: BLOOD SPECIMENOrdering Facility: [facility] Address: [address] [place] [address] Performed By: #### 3 016-3, , ####[facility] LABIA [id number] [place] [address] [place] CBC W Auto Differential pane l (Bld)on 11-23-2024 Basophils (Bld) [#/Vol] 0.04 10*3/uL Normal <0.11 [facility] Comment on above: Order Comment: Speci men Type: BLOOD SPECIMENOrdering Facility: [facility] Address: [address] [place] [address] Performed By: #### 5 7021-8 ####[facility] LABCLIA [id number] [place] [address] [place] Basophils/100 WBC (Bld) 0.5 % Normal [facility] Comment on above: Order Comment: Speci men Type: BLOOD SPECIMENOrdering Facility: [facility] Address: [address] [place] [address] Performed By: #### 5 7021-8 ####[facility] LABCLIA [id number] [place] [address] [place] Differential cell count method Nom (Bld) Auto Normal [facility] Comment on above: Order Comment: Speci men Type: BLOOD SPECIMENOrdering Facility: [facility] Address: [address] [place] [address] Performed By: #### 5 7021-8 ####[facility] LABCLIA [id number] [place] [address] [place] Eosinophils (Bld) [#/Vol] 0.14 10*3/uL Normal <0.46 [facility] Comment on above: Order Comment: Speci men Type: BLOOD SPECIMENOrdering Facility: [facility] Address: [address] [place] [address] Performed By: #### 5 7021-8 ####[facility] LABCLIA [id number] [place] [address] [place] Eosinophils/100 WBC (Bld) 1.8 % Normal [facility] Comment on above: Order Comment: Speci men Type: BLOOD SPECIMENOrdering Facility: [facility] Address: [address] [place] [address] Performed By: #### 5 7021-8 ####[facility] LABCLIA [id number] [place] [address] [place] Erythrocyte distribution width (RBC) [Ratio] 13.9 % Normal 11.5-15.0 [facility] Comment on above: Order Comment: Speci men Type: BLOOD SPECIMENOrdering Facility: [facility] Address: [address] [place] [address] Performed By: #### 5 7021-8 ####[facility] LABCLIA [id number] [place] [address] [place] Hematocrit (Bld) [Volume fraction] 42.1 % Normal 36.0-46.0 [facility] Comment on above: Order Comment: Speci men Type: BLOOD SPECIMENOrdering Facility: [facility] Address: [address] [place] [address] Performed By: #### 5 7021-8 ####[facility] LABCLIA [id number] [place] [address] [place] Hemoglobin (Bld) [Mass/Vol] 13.1 g/dL Normal 11.5-15.5 [facility] Comment on above: Order Comment: Speci men Type: BLOOD SPECIMENOrdering Facility: [facility] Address: [address] [place] [address] Performed By: #### 5 7021-8 ####[facility] LABCLIA [id number] [place] [address] [place] Immature granulocytes (Bld) [#/Vol] 10*3/uL Normal <0.10 [facility] Comment on above: Order Comment: Speci men Type: BLOOD SPECIMENOrdering Facility: [facility] Address: [address] [place] [address] Performed By: #### 5 7021-8 ####[facility] LABCLIA [id number] [place] [address] [place] Immature granulocytes/100 WBC (Bld) 0.3 % Normal [facility] Comment on above: Order Comment: Speci men Type: BLOOD SPECIMENOrdering Facility: [facility] Address: [address] [place] [address] Performed By: #### 5 7021-8 ####[facility] LABCLIA [id number] [place] [address] [place] Lymphocytes (Bld) [#/Vol] 1.63 10*3/uL Normal 1.00-4.00 [facility] Comment on above: Order Comment: Speci men Type: BLOOD SPECIMENOrdering Facility: [facility] Address: [address] [place] [address] Performed By: #### 5 7021-8 ####[facility] LABIA [id number] [place] [address] [place] Lymphocytes/100 WBC (Bld) 21.1 % Normal [facility] Comment on above: Order Comment: Speci men Type: BLOOD SPECIMENOrdering Facility: [facility] Address: [address] [place] [address] Performed By: #### 5 7021-8 ####[facility] LABIA [id number] [place] [address] [place] MCH (RBC) [Entitic mass] 27.4 pg Normal 26.0-34.0 [facility] Comment on above: Order Comment: Speci men Type: BLOOD SPECIMENOrdering Facility: [facility] Address: [address] [place] [address] Performed By: #### 5 7021-8 ####[facility] LABIA [id number] [place] [address] [place] MCHC (RBC) [Mass/Vol] 31.1 g/dL Normal 30.5-36.0 [facility] Comment on above: Order Comment: Speci men Type: BLOOD SPECIMENOrdering Facility: [facility] Address: [address] [place] [address] Performed By: #### 5 7021-8 ####[facility] LABIA [id number] [place] [address] [place] MCV (RBC) [Entitic vol] 88.1 fL Normal 80.0-100.0 [facility] Comment on above: Order Comment: Speci men Type: BLOOD SPECIMENOrdering Facility: [facility] Address: [address] [place] [address] Performed By: #### 5 7021-8 ####[facility] LABIA [id number] [place] [address] [place] Monocytes (Bld) [#/Vol] 0.74 10*3/uL Normal <0.87 [facility] Comment on above: Order Comment: Speci men Type: BLOOD SPECIMENOrdering Facility: [facility] Address: [address] [place] [address] Performed By: #### 5 7021-8 ####[facility] LABCLIA [id number] [place] [address] [place] Monocytes/100 WBC (Bld) 9.6 % Normal [facility] Comment on above: Order Comment: Speci men Type: BLOOD SPECIMENOrdering Facility: [facility] Address: [address] [place] [address] Performed By: #### 5 7021-8 ####[facility] LABCLIA [id number] [place] [address] [place] Neutrophils (Bld) [#/Vol] 5.15 10*3/uL Normal 1.45-7.50 [facility] Comment on above: Order Comment: Speci men Type: BLOOD SPECIMENOrdering Facility: [facility] Address: [address] [place] [address] Performed By: #### 5 7021-8 ####[facility] LABCLIA [id number] [place] [address] [place] Neutrophils/100 WBC (Bld) 66.7 % Normal [facility] Comment on above: Order Comment: Speci men Type: BLOOD SPECIMENOrdering Facility: [facility] Address: [address] [place] [address] Performed By: #### 5 7021-8 ####[facility] LABCLIA [id number] [place] [address] [place] Nucleated RBC (Bld) [#/Vol] 10*3/uL Normal <0.01 [facility] Comment on above: Order Comment: Speci men Type: BLOOD SPECIMENOrdering Facility: [facility] Address: [address] [place] [address] Performed By: #### 5 7021-8 ####[facility] LABCLIA [id number] [place] [address] [place] Nucleated RBC/100 WBC (Bld) [Ratio] 0.0 /100 WBC Normal [facility] Comment on above: Order Comment: Speci men Type: BLOOD SPECIMENOrdering Facility: [facility] Address: [address] [place] [address] Performed By: #### 5 7021-8 ####[facility] LABCLIA [id number] [place] [address] [place] Platelet mean volume (Bld) [Entitic vol] 11.1 fL Normal 9.0-12.7 [facility] Comment on above: Order Comment: Speci men Type: BLOOD SPECIMENOrdering Facility: [facility] Address: [address] [place] [address] Performed By: #### 5 7021-8 ####[facility] LABCLIA [id number] [place] [address] [place] Platelets (Bld) [#/Vol] 205 10*3/uL Normal 150-400 [facility] Comment on above: Order Comment: Speci men Type: BLOOD SPECIMENOrdering Facility: [facility] Address: [address] [place] [address] Performed By: #### 5 7021-8 ####[facility] LABCLIA [id number] [place] [address] [place] RBC (Bld) [#/Vol] 4.78 10*6/uL Normal 3.90-5.20 [facility] Comment on above: Order Comment: Speci men Type: BLOOD SPECIMENOrdering Facility: [facility] Address: [address] [place] [address] Performed By: #### 5 7021-8 ####[facility] LABCLIA [id number] [place] [address] [place] WBC (Bld) [#/Vol] 7.72 10*3/uL Normal 3.70-11.00 [facility] Comment on above: Order Comment: Speci men Type: BLOOD SPECIMENOrdering Facility: [facility] Address: [address] [place] [address] Performed By: #### 5 7021-8 ####[facility] LABIA [id number] [place] [id number] [place] CNOVon 11-23-2024 CNOV Normal [facility] ECG COMPLETEon 11-23-2024 ECG COMPLETE Normal [facility] Magnesium SerPl-mCncon 11-23 Magnesium [Mass/Vol] 1.9 mg/dL Normal 1.7-2.3 [facility] Comment on above: Order Comment: Speci men Type: BLOOD SPECIMENOrdering Facility: [facility] Address: [address] [place] [address] Performed By: #### 3 016-3, 38617-6, 81702-6 ####[facility] [id number] [place] [address] [place] TSH SerPl-aCncon 11-23-2024 TSH Qn 2.620 m[IU]/L Normal 0.270-4.200 [facility] Comment on above: Order Comment: Speci men Type: BLOOD SPECIMENOrdering Facility: [facility] Address: [address] [place] [address] Performed By: #### 3 016-3, 58123-8, 58465-8 ####[facility] LABIA [id number] [place] [address] [place] CR - History AND Physicalon 10-17-2024 CR - History & Physical [facility] [address] [place] [address] CR - History Physical MR#: [id number] Acct: [id number] Name: TERRI BURCIAGA Rep #: [id number] : 1945 79 From: Matty Biggs BS, RVT PCP: Dr. Andre Santana MD DOS: 10/17/24 CR - History Physical General Arrival date:: 10/17/24 Arrival time:: 14:25 Date of Referral:: 10/03/24 Date of CR Evaluation:: 10/17/24 Referring Physician: Dr. Abarca Primary Diagnosis: PCI History of Present Cardiac Event Onset Date PTCA or coronary stenting:: Yes Vessel: RCA 07/01/24 Medications Ambulatory Orders ???Medication ???Instructions ???Recorded aspirin 81 mg tablet,delayed 81 mg PO DAILY 11/24/18 release (Aspir-) biotin 300 mcg tablet 300 mcg PO DAILY 11/24/18 cholecalciferol (vitamin D3) 25 1,000 unit PO DAILY 11/24/18 mcg (1,000 unit) tablet (Vitamin D3) clonidine HCl 0.1 mg tablet 0.1 mg PO QHS 11/24/18 diazepam 2 mg tablet 1 mg PO BID PRN PRN Anxiety 11/24/18 losartan 100 1 ea PO DAILY 11/24/18 mg-hydrochlorothiazide 12.5 mg tablet potassium chloride 20 mEq 20 meq PO DAILY ##14 11/25/18 tablet,extended release(part/cryst) (Klor-Con M) lorazepam 0.5 mg tablet 0.5 mg PO TID PRN Anxiety #10 tabs 06/26/20 Allergies Allergies adhesive tape Allergy (Verified 06/26/20 21:27) Itching amlodipine (From Norvasc) Allergy (Verified 06/26/20 21:27) Swelling cat dander Allergy (Verified 06/26/20 21:27) Unknown cigarette smoke Allergy (Verified 06/26/20 21:27) Other metoprolol (From Lopressor) Allergy (Verified 06/26/20 21:27) Unknown nickel Allergy (Verified 06/26/20 21:27) Rash naproxen (From Aleve) Adverse Reaction (Verified 06/26/20 21:27) Nausea/Vom/Diarrhea rofecoxib (From Vioxx) Adverse Reaction (Verified 06/26/20 21:27) Upset Stomach Sulfa (Sulfonamide Antibiotics) Adverse Reaction (Verified 06/26/20 21:27) Other Sleep Disorder Evaluation Hx of Sleep Apnea: Yes Do you often feel tired/ fatigued/ sleepy during daytime?: No Has anyone observed you stop breathing during sleep?: No History of Hypertension (for STOP score): Yes Advanced Directives Advanced Directives Power of Light Bulb Replacer: No Living Will: No Advance Directives Information Provided: No Advance Directives on File: No DNR Order?:: No Past Medical History Covid-19 Screening Physicial Symptoms Other Clinical Concerns Exposure Risk Pertinent Comorbidities 65 years or older:: Yes Has a serious heart condition:: Yes Social History Smoking History Smoking Status: Former smoker Years Smokin Packs Smoked per Day: 3 (Pt has stopped smoking 40 years ago) Alcohol Use Alcohol Usage: Yes (occas glass of red wine) Occupation Occupation (List type of work in comments):: Retired Hobbies, Recreation, Social Activities Hobbies: Sewing and Other (crafts) Recreational Activities: I am able to engage in all my recreational activities Social Environment Status Marital Status: Current Living Arrangements Living Environment:: Alone Children How many children do you have?: 3 Do any of your children live nearby?: Yes Safety Do you feel safe in your surroundings?: Yes Assistance Do you need any assistance at home?: no Review of Systems Review of Systems Hints Review of Present Symptoms: Reports Shortness of Breath with Exertion, Dizziness/Lightheadedness, Fatigue, Appetite - Normal, Appetite - Special Diet and Sleep - Normal; Denies Shortness of Breath at Rest, PVD, Operative Discomfort, Angina, Wound Healing, Heart Arrhythmia/Irregularities or Sexual Changes Pain Is Patient Pain Free?: No Pain Location: other (arthritis) Pain Level: 5/10 Risk Factor Assessment Chief Complaint Chief Complaint: PCI Vital Signs Pulse Ox: 98 Pulse Pulse Rate: 59 Hypertension Blood Pressure Sitting - Right Arm: 126/70 Obesity Height: 4 ft 11 in Weight:: 169 lb Weight in Pounds: 169.0 lbs Body Mass Index (BMI): 34.1 Nutritional Referral for Obesity: No (declines) Physical Inactivity Physical Inactivity: None Risk Stratification Risk Guidelines: Lowest Risk: Risk Factor for Smoking, Moderate Risk: Risk Factor for Diabetes, Risk Factor for Sedentary Lifestyle and Risk Factor for Depression and Highest Risk: Risk Factor for Dyslipidemia, Risk Factor for Obesity and Risk Factor for Hypertension For Smoking Smoking Risk Guidelines For Dyslipidemia Dyslipidemia Risk Guidelines For Diabetes Mellitus Diabetes Risk Guidelines For Obesity/Overweight Obesity/Overweight Risk Guidelines For Hypertension Hypertension Risk Guidelines For Sedentary Lifestyle Sedentary Lifestyle Risk Guidelines For Depression Depression Risk Guidelines Motivation Motivation to Participate On a scale of 1 to 10, how prepared are you to commit to attending program?: 8 What do you see as (more content not included)... Normal [facility] ANTINUCLEAR ANTIBODIES DIREC Ton 10-11-2024 [facility],DIRECT Positive Abnormal Negative [facility] Comment on above: Result Comment: Perf ormed at: [facility] [address] [id number] [employer]: Vj Rice PhD, Phone: [phone] Performed By: #### L 500.2500, L100.0100, L501.4021 #### [facility] [address] [place], [place], [id number] Anti-dsDNA Abon 10-11-2024 ANTI-DNA (DS)AB <1 Normal 0-9 [facility] Comment on above: Result Comment: Nega tive <5 Equivocal 5 - 9 Positive >9 Performed By: #### L 500.2500, L100.0100, L501.4021 #### [facility] [address] [place], [place], [id number] [facility] serumOrdered By: Rocio murillo on 10-10-2024 Anti-Nuclear Antibody Screen Positive High Negative [facility] Comment on above: Performed at: [facility] [address] [id number] Director: Vj Rice PhD, Phone: [phone] Absolute neutrophil countOrd ered By: Rocio Hilario on 10-10-2024 Neutrophils (Bld) [#/Vol] 3.7 10*3/uL 2.0-7.7 [facility] Albumin to globulin ratioOrd ered By: Rocio Hilario on 10-10-2024 Albumin/Globulin [Mass ratio] 0.9 {ratio} 0.9-2.4 [facility] Basophil percentageOrdered B y: Rocio Hilario on 10-10-2024 Basophils/100 WBC (Bld) 0.4 % 0-1 [facility] Bilirubin, totalOrdered By: Rocio Hilario on 10-10-2024 Bilirubin [Mass/Vol] 0.50 mg/dL 0.20-1.[address] [facility] Comment on above: For patients on eltr ombopag therapy, use of Dimension [place] TBIL is not recommended. Blood urea nitrogen (BUN)/cr eatinine ratioOrdered By: Rocio Hilario on 10-10-2024 Urea nitrogen/Creatinine [Mass ratio] 16.8 mg/mg 10-20 [facility] CBC W/Diff, Automatedon 12 Absolute Lymph 0.97 X10 3/uL Normal 0.83-4.51 [facility] Comment on above: Performed By: #### L 500.2500, L100.0100, L501.4021 #### [facility] [address] [place], [address] Absolute Neut 3.7 X10 3/uL Normal 2.0-7.7 [facility] Comment on above: Performed By: #### L 500.2500, L100.0100, L501.4021 #### [facility] [address] [place], [address] Basophils/100 WBC (Bld) 0.4 % Normal 0-1 [facility] Comment on above: Performed By: #### L 500.2500, L100.0100, L501.4021 #### [facility] [address] [place], [address] Eosinophils/100 WBC (Bld) 1.9 % Normal 0-5 [facility] Comment on above: Performed By: #### L 500.2500, L100.0100, L501.4021 #### [facility] [address] [place], [address] Erythrocyte distribution width (RBC) [Ratio] 14.1 % Normal 11.6-14.6 [facility] Comment on above: Performed By: #### L 500.2500, L100.0100, L501.4021 #### [facility] [address] [place], [address] Hematocrit (Bld) [Volume fraction] 38.6 % Normal 37-47 [facility] Comment on above: Performed By: #### L 500.2500, L100.0100, L501.4021 #### [facility] [address] [place], [address] Hemoglobin (Bld) [Mass/Vol] 12.1 g/dL Normal 12.0-15.0 [facility] Comment on above: Performed By: #### L 500.2500, L100.0100, L501.4021 #### [facility] [address] [place], [address] IG% 0.400 Normal 0.0-0.9 [facility] Comment on above: Result Comment: IG% - Immature Granulocytes (promyelocytes, myelocytes and metamyelocytes) > 1% indicates that a LEFT SHIFT is Present. Performed By: #### L 500.2500, L100.0100, L501.4021 #### [facility] [address] [place], [address] Lymphocytes/100 WBC (Bld) 18.2 % Low 19-41 [facility] Comment on above: Performed By: #### L 500.2500, L100.0100, L501.4021 #### [facility] [address] [place], [address] MCH (RBC) [Entitic mass] 27.5 pg Normal 27.0-32.0 [facility] Comment on above: Performed By: #### L 500.2500, L100.0100, L501.4021 #### [facility] [address] [place], [address] MCHC (RBC) [Mass/Vol] 31.3 g/dL Low 32-36 [facility] Comment on above: Performed By: #### L 500.2500, L100.0100, L501.4021 #### [facility] [address] [place], [address] MCV (RBC) [Entitic vol] 87.7 fL Normal 81-99 [facility] Comment on above: Performed By: #### L 500.2500, L100.0100, L501.4021 #### [facility] [address] [place], [address] Monocytes/100 WBC (Bld) 10.2 % High 0-10 [facility] Comment on above: Performed By: #### L 500.2500, L100.0100, L501.4021 #### [facility] [address] [place], [address] Neutrophils/100 WBC (Bld) 68.9 % Normal 47-70 [facility] Comment on above: Performed By: #### L 500.2500, L100.0100, L501.4021 #### [facility] [address] [place], [address] Nucleated RBC (Bld) [#/Vol] 0 10*3/uL Normal 0-5 [facility] Comment on above: Performed By: #### L 500.2500, L100.0100, L501.4021 #### [facility] [address] [place], [address] Platelet mean volume (Bld) [Entitic vol] 11.3 fL Normal 6.2-12.0 [facility] Comment on above: Performed By: #### L 500.2500, L100.0100, L501.4021 #### [facility] [address] [place], [address] Platelets (Bld) [#/Vol] 193 10*3/uL Normal 150-450 [facility] Comment on above: Performed By: #### L 500.2500, L100.0100, L501.4021 #### [facility] [address] [place], [address] RBC (Bld) [#/Vol] 4.40 10*6/uL Normal 4.2-5.4 [facility] Comment on above: Performed By: #### L 500.2500, L100.0100, L501.4021 #### [facility] [address] [place], [address] RDW SD 45.0 fl High 35.1-43.9 [facility] Comment on above: Performed By: #### L 500.2500, L100.0100, L501.4021 #### [facility] [address] [place], [address] WBC (Bld) [#/Vol] 5.3 10*3/uL Normal 4.4-11.0 [facility] Comment on above: Performed By: #### L 500.2500, L100.0100, L501.4021 #### [facility] [address] [place], [address] CPK Total, Creatine Kinaseon 10-10-2024 CPK TOTAL 30 U/L Normal 26-192 [facility] Comment on above: Performed By: #### L 500.2500, L100.0100, L501.4021 #### [facility] [address] [place], [address] Carbon dioxide measurementOr dered By: Rocio Hilario on 10-10-2024 CO2 [Moles/Vol] 25.0 mmol/L 21.0-32.0 [facility] Chloride measurementOrdered By: Rocio Hilario on 10-10-2024 Chloride [Moles/Vol] 107 mmol/L 98-[address] [facility] Comprehensive Metabolic Prof ilon 10-10-2024 Albumin [Mass/Vol] 3.6 g/dL Normal 3.2-5.0 [facility] Comment on above: Performed By: #### L 500.2500, L100.0100, L501.4021 #### [facility] [address] [place], [address] Albumin/Globulin [Mass ratio] 0.9 {ratio} Normal 0.9-2.4 [facility] Comment on above: Performed By: #### L 500.2500, L100.0100, L501.4021 #### [facility] [address] [place], [address] ALK P 83 U/L Normal 45-117 [facility] Comment on above: Performed By: #### L 500.2500, L100.0100, L501.4021 #### [facility] [address] [place], [address] ALT [Catalytic activity/Vol] 34 U/L Normal 13-56 [facility] Comment on above: Performed By: #### L 500.2500, L100.0100, L501.4021 #### [facility] [address] [place], [address] AST [Catalytic activity/Vol] 25 U/L Normal 15-37 [facility] Comment on above: Performed By: #### L 500.2500, L100.0100, L501.4021 #### [facility] [address] [place], [address] Bilirubin [Mass/Vol] 0.50 mg/dL Normal 0.20-1.[address] [facility] Comment on above: Result Comment: For patients on eltrombopag therapy, use of Dimension [place] TBIL is not recommended. Performed By: #### L 500.2500, L100.0100, L501.4021 #### [facility] [address] [place], [address] BUN/CRE 16.8 RATIO Normal 10-20 [facility] Comment on above: Performed By: #### L 500.2500, L100.0100, L501.4021 #### [facility] [address] [place], [address] CA,Total 9.4 mg/dL Normal 8.5-10.1 [facility] Comment on above: Performed By: #### L 500.2500, L100.0100, L501.4021 #### [facility] [address] [place], [address] Chloride [Moles/Vol] 107 mmol/L Normal 98-[address] [facility] Comment on above: Performed By: #### L 500.2500, L100.0100, L501.4021 #### [facility] [address] [place], [address] CO2 [Moles/Vol] 25.0 mmol/L Normal 21.0-32.0 [facility] Comment on above: Performed By: #### L 500.2500, L100.0100, L501.4021 #### [facility] [address] [place], [address] Creatinine [Mass/Vol] 1.43 mg/dL High 0.55-1.02 [facility] Comment on above: Result Comment: The validity of the calculated GFR GFRAA in patients over 70 years has not been determined. Clinical correlation is essential. Performed By: #### L 500.2500, L100.0100, L501.4021 #### [facility] [address] [place], [address] EST GFR - AA 46 mL/min Low >60 [facility] Comment on above: Result Comment: Afri can Jamaican GFR Calc Performed By: #### L 500.2500, L100.0100, L501.4021 #### [facility] [address] [place], [address] GAP 7 Normal 5-15 [facility] Comment on above: Performed By: #### L 500.2500, L100.0100, L501.4021 #### [facility] [address] [place], [address] GFR/1.73 sq M.predicted among non-blacks MDRD (S/P/Bld) [Vol rate/Area] 38 mL/min/{1.73_m2} Low >60 [facility] Comment on above: Result Comment: Non- GFR Calc Performed By: #### L 500.2500, L100.0100, L501.4021 #### [facility] [address] [place], [address] Globulin (S) [Mass/Vol] 4.1 g/dL Normal 2.2-4.2 [facility] Comment on above: Performed By: #### L 500.2500, L100.0100, L501.4021 #### [facility] [address] [place], [address] Glucose [Mass/Vol] 105 mg/dL Normal 74-106 [facility] Comment on above: Result Comment: Fast ing Glucose result from 100 to 125 mg/dL suggests IMPAIRED HOMEOSTASIS per A.D.A. criteria. Performed By: #### L 500.2500, L100.0100, L501.4021 #### [facility] [address] [place], [address] Potassium [Moles/Vol] 3.8 mmol/L Normal 3.5-5.1 [facility] Comment on above: Performed By: #### L 500.2500, L100.0100, L501.4021 #### [facility] [address] [place], [address] Sodium [Moles/Vol] 138 mmol/L Normal 136-145 [facility] Comment on above: Performed By: #### L 500.2500, L100.0100, L501.4021 #### [facility] [address] [place], [address] T PROT 7.7 g/dL Normal 6.4-8.2 [facility] Comment on above: Performed By: #### L 500.2500, L100.0100, L501.4021 #### [facility] [address] [place], [address] Urea nitrogen [Mass/Vol] 24 mg/dL High 7-18 [facility] Comment on above: Performed By: #### L 500.2500, L100.0100, L501.4021 #### [facility] [address] [place], [address] DNA double strand Ab Qn (S)O rdered By: Rocio Hilario on 10-10-2024 Anti-Double Strand DNA Antibody <1 IU/mL 0-9 [facility] Comment on above: Negative <5 Equivoca l 5 - 9 Positive >9 Eosinophil percentageOrdered By: Rocio Hilario on 10-10-2024 Eosinophils/100 WBC (Bld) 1.9 % 0-5 [facility] Erythrocyte distribution wid th ratioOrdered By: Rocio Hilario on 10-10-2024 Erythrocyte distribution width (RBC) [Ratio] 14.1 % 11.6-14.6 [facility] Erythrocyte distribution wid th standard deviationOrdered By: Rocio Hilario on 10-10-2024 Erythrocyte distribution width (RBC) [Entitic vol] 45.0 fL High 35.1-43.9 [facility] Estimated glomerular filtrat ion rate (GFR) AmericanOrdered By: Rocio Hilario on 10-10-2024 Estimated GFR (MDRD) Amer 46 mL/min Low >60 [facility] Comment on above: GFR Calc Glomerular filtration rate ( GFR) estimationOrdered By: Rocio Hilario on 10-10-2024 Estimated GFR (MDRD) Non-Af Amer 38 mL/min Low >60 [facility] Comment on above: Non- GFR Calc Glucose measurementOrdered B y: Rocio Hilario on 10-10-2024 Glucose [Mass/Vol] 105 mg/dL 74-106 [facility] Comment on above: Fasting Glucose resu lt from 100 to 125 mg/dL suggests IMPAIRED HOMEOSTASIS per A.D.A. criteria. Hematocrit Auto (Bld) [Volum e fraction]Ordered By: Rocio Hilario on 10-10-2024 Hematocrit (Bld) [Volume fraction] 38.6 % 37-47 [facility] Hemoglobin measurementOrdere d By: Rocio Hilario on 10-10-2024 Hemoglobin (Bld) [Mass/Vol] 12.1 g/dL 12.0-15.0 [facility] Immature granulocytes/100 WB C Auto (Bld)Ordered By: Rocio Hilario on 10-10-2024 Immature granulocytes/100 WBC (Bld) 0.400 % 0.0-0.9 [facility] Comment on above: IG% - Immature Granu locytes (promyelocytes, myelocytes and metamyelocytes) > 1% indicates that a LEFT SHIFT is Present. Laboratory - Chemistry and C hemistry - challengeOrdered By: Rocio Hilario on 10-10-2024 AST [Catalytic activity/Vol] 25 U/L 15-37 [facility] Lymphocytes Auto (Unsp spec) [#/Vol]Ordered By: Rocio Hilario on 10-10-2024 Lymphocytes (Bld) [#/Vol] 0.97 10*3/uL 0.83-4.51 [facility] Lymphocytes/100 WBC Auto (Un sp spec)Ordered By: Rocio Hilario on 10-10-2024 Lymphocytes/100 WBC (Bld) 18.2 % Low 19-41 [facility] MCV (mean corpuscular volume ) determinationOrdered By: Rocio Hilario on 10-10-2024 MCV (RBC) [Entitic vol] 87.7 fL 81-99 [facility] Mean corpuscular hemoglobin (MCH) determinationOrdered By: Rocio Hilario on 10-10-2024 MCH (RBC) [Entitic mass] 27.5 pg 27.0-32.0 [facility] Mean corpuscular hemoglobin concentration (MCHC) determinationOrdered By: Rocio Hilario on 10-10-2024 MCHC (RBC) [Mass/Vol] 31.3 g/dL Low 32-36 [facility] Mean platelet volume determi nationOrdered By: Rocio Hilario on 10-10-2024 Platelet mean volume (Bld) [Entitic vol] 11.3 fL 6.2-12.0 [facility] Monocyte percentageOrdered B y: Rocio Hilario on 10-10-2024 Monocytes/100 WBC (Bld) 10.2 % High 0-10 [facility] Neutrophil percentageOrdered By: Rocio Hilario on 10-10-2024 Neutrophils/100 WBC (Bld) 68.9 % 47-70 [facility] Nucleated red blood cell per centageOrdered By: Rocio Hilario on 10-10-2024 Nucleated RBC/100 WBC (Bld) [Ratio] 0 % 0-5 [facility] Platelet countOrdered By: Tyler Hilario on 10-10-2024 Platelets (Bld) [#/Vol] 193 10*3/uL 150-450 [facility] Potassium measurementOrdered By: Rocio Hilario on 10-10-2024 Potassium [Moles/Vol] 3.8 mmol/L 3.5-5.1 [facility] RBC Auto (Bld) [#/Vol]Ordere d By: Rocio Hilario on 10-10-2024 RBC (Bld) [#/Vol] 4.40 10*6/uL 4.2-5.4 [facility] Serum anion gap measurementO rdered By: Rocio Hilario on 10-10-2024 Anion gap [Moles/Vol] 7 mmol/L 5-15 [facility] Serum globulin measurementOr dered By: Rocio Hilario on 10-10-2024 Globulin (S) [Mass/Vol] 4.1 g/dL 2.2-4.2 [facility] Serum or plasma alanine oviedo otransferase (ALT) measurementOrdered By: Rocio Hilario on 10-10-2024 ALT [Catalytic activity/Vol] 34 U/L 13-56 [facility] Serum or plasma albumin krysitn urement (mass/volume)Ordered By: Rocio Hilario on 10-10-2024 Albumin [Mass/Vol] 3.6 g/dL 3.2-5.0 [facility] Serum or plasma alkaline pérez sphatase measurementOrdered By: Rocio Hilario on 10-10-2024 ALP [Catalytic activity/Vol] 83 U/L 45-117 [facility] Serum or plasma calcium krystin urement (mass/volume)Ordered By: Rocio Hilario on 10-10-2024 Calcium [Mass/Vol] 9.4 mg/dL 8.5-10.1 [facility] Serum or plasma creatinine m easurement (mass/volume)Ordered By: Rocio Hilario on 10-10-2024 Creatinine [Mass/Vol] 1.43 mg/dL High 0.55-1.02 [facility] Comment on above: The validity of the calculated GFR & GFRAA in patients over 70 years has not been determined. Clinical correlation is essential. Serum or plasma urea nitroge n measurement (mass/volume)Ordered By: Rocio Hilario on 10-10-2024 Urea nitrogen [Mass/Vol] 24 mg/dL High 7-18 [facility] Sodium levelOrdered By: Murtaza Hilario on 10-10-2024 Sodium [Moles/Vol] 138 mmol/L 136-145 [facility] Total creatine kinase measur ementOrdered By: Rocio Hilario on 10-10-2024 CK [Catalytic activity/Vol] 30 U/L 26-192 [facility] Total proteinOrdered By: Steffen Hilario on 10-10-2024 Protein [Mass/Vol] 7.7 g/dL 6.4-8.2 [facility] White blood cell (WBC) count Ordered By: Rocio Hilario on 10-10-2024 WBC (Bld) [#/Vol] 5.3 10*3/uL 4.4-11.0 [facility] CNPNon 10-04-2024 CNPN Normal [facility] Basic metabolic 2000 panelon 10-03-2024 Anion gap [Moles/Vol] 9 mmol/L Normal 8-15 [facility] Comment on above: Order Comment: Speci men Type: BLOOD SPECIMENOrdering Facility: [facility] Address: [address] [place] [address] Performed By: #### 2 4321-2 ####[facility] [id number] [place] [address] [place] Calcium [Mass/Vol] 9.4 mg/dL Normal 8.5-10.2 [facility] Comment on above: Order Comment: Speci men Type: BLOOD SPECIMENOrdering Facility: [facility] Address: [address] [place] [address] Performed By: #### 2 4321-2 ####[facility] MILLWNCLIA [id number] [place] [address] [place] Chloride [Moles/Vol] 106 mmol/L Normal 98-107 [facility] Comment on above: Order Comment: Speci men Type: BLOOD SPECIMENOrdering Facility: [facility] Address: [address] [place] [address] Performed By: #### 2 4321-2 ####[facility] [id number] [place] [address] [place] CO2 [Moles/Vol] 24 mmol/L Normal 22-30 [facility] Comment on above: Order Comment: Speci men Type: BLOOD SPECIMENOrdering Facility: [facility] Address: [address] [place] [address] Performed By: #### 2 4321-2 ####[facility]ENTERLIA [id number] [place] [address] [place] Creatinine [Mass/Vol] 1.33 mg/dL High 0.58-0.96 [facility] Comment on above: Order Comment: Speci men Type: BLOOD SPECIMENOrdering Facility: [facility] Address: [address] [place] [address] Performed By: #### 2 4321-2 ####[facility] [id number] [place] [address] [place] Creatinine and Glomerular filtration rate.predicted panel (S/P/Bld) 41 mL/min/1.73m??? Low >=60 [facility] Comment on above: Order Comment: Speci men Type: BLOOD SPECIMENOrdering Facility: [facility] Address: [address] [id number] Result Comment: Nicole mated Glomerular Filtration Rate (eGFR) is calculated using the 2020 CKD-EPI creatinine equation. This equation utilizes serum creatinine, sex, and age as parameters. The creatinine assay has traceable calibration to isotope dilution-mass spectrometry. Refer to KDIGO guidelines for clinical interpretation. In patients with unstable renal function, e.g. those with acute kidney injury, the eGFR may not accurately reflect actual GFR. Performed By: #### 2 4321-2 ####[facility] [id number] [place] [address] [place] Glucose [Mass/Vol] 100 mg/dL High 74-99 [facility] Comment on above: Order Comment: Lisa baptiste Type: BLOOD SPECIMENOrdering Facility: [facility] Address: [address] [place] [address] Result Comment: The [place] Diabetes Association (ADA) provides guidance for cutoff values for fasting glucose and random glucose. The ADA defines fasting as no caloric intake for at least 8 hours. Fasting plasma glucose results between 100 to 125 mg/dL indicate increased risk for diabetes (prediabetes).Fasting plasma glucose results greater than or equal to 126 mg/dL meet the criteria for diagnosis of diabetes. In the absence of unequivocal hyperglycemia, results should be confirmed by repeat testing. In a patient with classic symptoms of hyperglycemia or hyperglycemic crisis, random plasma glucose results greater than or equal to 200 mg/dL meet the criteria for diagnosis of diabetes.Reference: Standards of Medical Care in Diabetes 2016, [place] [employer]. Diabetes Care. 2016.39(Suppl 1). Performed By: #### 2 4321-2 ####[facility] [id number] [place] [address] [place] Potassium [Moles/Vol] 4.4 mmol/L Normal 3.7-5.1 [facility] Comment on above: Order Comment: Lisa baptiste Type: BLOOD SPECIMENOrdering Facility: [facility] Address: [address] [id number] Performed By: #### 2 4321-2 ####[facility] MILLWNCLIA [id number] [place] [address] [place] Sodium [Moles/Vol] 139 mmol/L Normal 136-144 [facility] Comment on above: Order Comment: Speci men Type: BLOOD SPECIMENOrdering Facility: [facility] Address: [address] [place] [address] Performed By: #### 2 4321-2 ####[facility] EMERGENCYWZORAIDALIA [id number] [place] [address] [place] Urea nitrogen [Mass/Vol] 24 mg/dL High 7-21 [facility] Comment on above: Order Comment: Speci men Type: BLOOD SPECIMENOrdering Facility: [facility] Address: [address] [place] [address] Performed By: #### 2 4321-2 ####[facility] NASSAUZORAIDALIIsaias [id number] [place] [address] [place] CBC W Auto Differential pane l (Bld)on 10-03-2024 Basophils (Bld) [#/Vol] 10*3/uL Normal <0.11 [facility] Comment on above: Order Comment: Speci men Type: BLOOD SPECIMENOrdering Facility: [facility] Address: [address] [place] [address] Performed By: #### 5 7021-8 ####[facility] NASSAUNCLIA [id number] [place] [address] [place] Basophils/100 WBC (Bld) 0.3 % Normal [facility] Comment on above: Order Comment: Speci men Type: BLOOD SPECIMENOrdering Facility: [facility] Address: [address] [place] [address] Performed By: #### 5 7021-8 ####[facility] NASSAUNCLIA [id number] [place] [address] [place] Differential cell count method Nom (Bld) Auto Normal [facility] Comment on above: Order Comment: Speci men Type: BLOOD SPECIMENOrdering Facility: [facility] Address: [address] [place] [address] Performed By: #### 5 7021-8 ####[facility]SAUNCSALT [facility] [id number] [place] [address] [place] Eosinophils (Bld) [#/Vol] 0.11 10*3/uL Normal <0.46 [facility] Comment on above: Order Comment: Speci men Type: BLOOD SPECIMENOrdering Facility: [facility] Address: [address] [place] [address] Performed By: #### 5 7021-8 ####[facility] [id number] [place] [address] [place] Eosinophils/100 WBC (Bld) 1.9 % Normal [facility] Comment on above: Order Comment: Speci men Type: BLOOD SPECIMENOrdering Facility: [facility] Address: [address] [place] [address] Performed By: #### 5 7021-8 ####[facility]SAUNCSALT [facility] [id number] [place] [address] [place] Erythrocyte distribution width (RBC) [Ratio] 14.0 % Normal 11.5-15.0 [facility] Comment on above: Order Comment: Speci men Type: BLOOD SPECIMENOrdering Facility: [facility] Address: [address] [place] [address] Performed By: #### 5 7021-8 ####[facility] [id number] [place] [address] [place] Hematocrit (Bld) [Volume fraction] 35.8 % Low 36.0-46.0 [facility] Comment on above: Order Comment: Speci men Type: BLOOD SPECIMENOrdering Facility: [facility] Address: [address] [place] [address] Performed By: #### 5 7021-8 ####[facility] MARIANNCLINES CORNERSLONNY [id number] [place] [address] [place] Hemoglobin (Bld) [Mass/Vol] 11.5 g/dL Normal 11.5-15.5 [facility] Comment on above: Order Comment: Speci men Type: BLOOD SPECIMENOrdering Facility: [facility] Address: [address] [place] [address] Performed By: #### 5 7021-8 ####[facility] [id number] [place] [address] [place] Immature granulocytes (Bld) [#/Vol] 10*3/uL Normal <0.10 [facility] Comment on above: Order Comment: Speci men Type: BLOOD SPECIMENOrdering Facility: [facility] Address: [address] [place] [address] Performed By: #### 5 7021-8 ####[facility] NASSAUNCLIA [id number] [place] [address] [place] Immature granulocytes/100 WBC (Bld) 0.3 % Normal [facility] Comment on above: Order Comment: Speci men Type: BLOOD SPECIMENOrdering Facility: [facility] Address: [address] [place] [address] Performed By: #### 5 7021-8 ####[facility] NASSAUNCLIA [id number] [place] [address] [place] Lymphocytes (Bld) [#/Vol] 1.09 10*3/uL Normal 1.00-4.00 [facility] Comment on above: Order Comment: Speci men Type: BLOOD SPECIMENOrdering Facility: [facility] Address: [address] [place] [address] Performed By: #### 5 7021-8 ####[facility] MARIANNCLINES CORNERSLIANAA [id number] [place] [address] [place] Lymphocytes/100 WBC (Bld) 18.7 % Normal [facility] Comment on above: Order Comment: Speci men Type: BLOOD SPECIMENOrdering Facility: [facility] Address: [address] [place] [address] Performed By: #### 5 7021-8 ####[facility] [id number] [place] [address] [place] MCH (RBC) [Entitic mass] 28.1 pg Normal 26.0-34.0 [facility] Comment on above: Order Comment: Speci men Type: BLOOD SPECIMENOrdering Facility: [facility] Address: [address] [place] [address] Performed By: #### 5 7021-8 ####[facility] [id number] [place] [address] [place] MCHC (RBC) [Mass/Vol] 32.1 g/dL Normal 30.5-36.0 [facility] Comment on above: Order Comment: Speci men Type: BLOOD SPECIMENOrdering Facility: [facility] Address: [address] [place] [address] Performed By: #### 5 7021-8 ####[facility] [id number] [place] [address] [place] MCV (RBC) [Entitic vol] 87.5 fL Normal 80.0-100.0 [facility] Comment on above: Order Comment: Speci men Type: BLOOD SPECIMENOrdering Facility: [facility] Address: [address] [place] [address] Performed By: #### 5 7021-8 ####[facility]SAUNCSALT [facility] [id number] [place] [address] [place] Monocytes (Bld) [#/Vol] 0.69 10*3/uL Normal <0.87 [facility] Comment on above: Order Comment: Speci men Type: BLOOD SPECIMENOrdering Facility: [facility] Address: [address] [place] [address] Performed By: #### 5 7021-8 ####[facility]ENTERLIA [id number] [place] [address] [place] Monocytes/100 WBC (Bld) 11.9 % Normal [facility] Comment on above: Order Comment: Speci men Type: BLOOD SPECIMENOrdering Facility: [facility] Address: [address] [place] [address] Performed By: #### 5 7021-8 ####[facility] [id number] [place] [address] [place] Neutrophils (Bld) [#/Vol] 3.89 10*3/uL Normal 1.45-7.50 [facility] Comment on above: Order Comment: Speci men Type: BLOOD SPECIMENOrdering Facility: [facility] Address: [address] [place] [address] Performed By: #### 5 7021-8 ####[facility] [id number] [place] [address] [place] Neutrophils/100 WBC (Bld) 66.9 % Normal [facility] Comment on above: Order Comment: Speci men Type: BLOOD SPECIMENOrdering Facility: [facility] Address: [address] [place] [address] Performed By: #### 5 7021-8 ####[facility] [id number] [place] [address] [place] Nucleated RBC (Bld) [#/Vol] 10*3/uL Normal <0.01 [facility] Comment on above: Order Comment: Speci men Type: BLOOD SPECIMENOrdering Facility: [facility] Address: [address] [place] [address] Performed By: #### 5 7021-8 ####[facility] PHYLICIA [id number] [place] [address] [place] Nucleated RBC/100 WBC (Bld) [Ratio] 0.0 /100 WBC Normal [facility] Comment on above: Order Comment: Speci men Type: BLOOD SPECIMENOrdering Facility: [facility] Address: [address] [place] [address] Performed By: #### 5 7021-8 ####[facility] MARIANNCLINES CORNERSLONNY [id number] [place] [address] [place] Platelet mean volume (Bld) [Entitic vol] 9.9 fL Normal 9.0-12.7 [facility] Comment on above: Order Comment: Speci men Type: BLOOD SPECIMENOrdering Facility: [facility] Address: [address] [place] [address] Performed By: #### 5 7021-8 ####[facility] NASSAUNCRADHA [id number] [place] [address] [place] Platelets (Bld) [#/Vol] 173 10*3/uL Normal 150-400 [facility] Comment on above: Order Comment: Speci men Type: BLOOD SPECIMENOrdering Facility: [facility] Address: [address] [place] [address] Performed By: #### 5 7021-8 ####[facility] NASSAUZORAIDALIA [id number] [place] [id number] [place] RBC (Bld) [#/Vol] 4.09 10*6/uL Normal 3.90-5.20 [facility] Comment on above: Order Comment: Speci men Type: BLOOD SPECIMENOrdering Facility: [facility] Address: [address] [place] [address] Performed By: #### 5 7021-8 ####[facility]ENCYWNCLIA [id number] [place] [address] [place] WBC (Bld) [#/Vol] 5.82 10*3/uL Normal 3.70-11.00 [facility] Comment on above: Order Comment: Speci men Type: BLOOD SPECIMENOrdering Facility: [facility] Address: [facility] [place] [address] Performed By: #### 5 7021-8 ####[facility] [id number] [place] [address] [place] CNOVon 10-03-2024 CNOV Normal [facility] CNPNon 09-16-2024 CNPN Normal [facility] CNOVon 09-15-2024 CNOV Normal [facility] Urinalysis complete panel (U )on 09-13-2024 Bacteria LM.HPF (Urine sed) [#/Area] Negative Negative /HPF [facility] Bilirubin Ql (U) Negative Negative [facility] Clarity (Unsp spec) Clear Clear [facility] Color (U) Yellow Yellow [facility] Epithelial cells LM.HPF (Urine sed) [#/Area] None Seen /HPF [facility] Glucose Test strip (U) [Mass/Vol] Negative Negative [facility] Hemoglobin Ql (U) 3+ Abnormal Negative [facility] Hyaline casts (Urine sed) [#/Area] 0 /[LPF] 0 /LPF [facility] Interpretation and review of laboratory results Abnormal [facility] Ketones Ql (U) Negative Negative [facility] Leukocyte esterase Test strip Ql (U) Negative Negative [facility] Nitrite Ql (U) Negative Negative [facility] pH (U) 6.0 [pH] NINF - 8.5 [facility] Protein (U) [Mass/Vol] 1+ Abnormal Negative [facility] RBC LM.HPF (Urine sed) [#/Area] /[HPF] Abnormal 0-2 /HPF [facility] Specific gravity (U) [Rel density] 1.018 1.005 - 1.030 [facility] Urobilinogen Ql (U) 0.2 EU/dL 0.2-1.0 EU/dL [facility] WBC LM.HPF (Urine sed) [#/Area] 0-5 /HPF 0-5 /HPF [facility] This test was develo ped and its performance characteristics determined by [facility]'s [facility] Pathology and Laboratory Medicine [place] ([facility]). It has not been cleared or approved by the FDA. [facility] is regulated under CLIA as qualified to perform high-complexity testing. This test is used for clinical purposes. It should not be regarded as investigational or for research. [facility] Bacteria Ur Culton 4 Bacteria identified Cx Nom (U) ORGANISM ID: 1 10,000 -<50,000 CFU/ml Normal urogenital rolando Normal [facility] Comment on above: Performed By: #### 6 30-4 ####[facility] LABIA [id number] [place] [address] [place] CNOVon 09-12-2024 CNOV Normal [facility] Urinalysis complete panel (U )on 09-12-2024 Bacteria LM.HPF (Urine sed) [#/Area] Negative Normal Negative [facility] Comment on above: Order Comment: Speci men Type: URINE SPECIMENOrdering Facility: [facility] Address: [address] [place] [address] Performed By: #### 2 4356-8 ####[facility] LABIA [id number] [place] [address] [place] Bilirubin Ql (U) Negative Normal Negative [facility] Comment on above: Order Comment: Speci men Type: URINE SPECIMENOrdering Facility: [facility] Address: [address] [place] [address] Performed By: #### 2 4356-8 ####[facility] LABIA [id number] [place] [address] [place] Clarity (Unsp spec) Clear Normal Clear [facility] Comment on above: Order Comment: Speci men Type: URINE SPECIMENOrdering Facility: [facility] Address: [address] [place] [address] Performed By: #### 2 4356-8 ####[facility] LABCLIA [id number] [place] [address] [place] Color (U) Yellow Normal Yellow [facility] Comment on above: Order Comment: Speci men Type: URINE SPECIMENOrdering Facility: [facility] Address: [address] [place] [address] Performed By: #### 2 4356-8 ####[facility] LABIA [id number] [place] [address] [place] Epithelial cells LM.HPF (Urine sed) [#/Area] None Seen Normal [facility] Comment on above: Order Comment: Speci men Type: URINE SPECIMENOrdering Facility: [facility] Address: [address] [place] [address] Performed By: #### 2 4356-8 ####[facility] LABIA [id number] [address] [place] Glucose Test strip (U) [Mass/Vol] Negative Normal Negative [facility] Comment on above: Order Comment: Speci men Type: URINE SPECIMENOrdering Facility: [facility] Address: [address] [place] [address] Performed By: #### 2 4356-8 ####[facility] LABIA [id number] [place] [address] [place] Hemoglobin Ql (U) 3+ Abnormal Negative [facility] Comment on above: Order Comment: Speci men Type: URINE SPECIMENOrdering Facility: [facility] Address: [address] [place] [address] Performed By: #### 2 4356-8 ####[facility] LABCLIA [id number] [place] [address] [place] Hyaline casts (Urine sed) [#/Area] 0 /[LPF] Normal 0 /LPF [facility] Comment on above: Order Comment: Speci men Type: URINE SPECIMENOrdering Facility: [facility] Address: [address] [place] [address] Performed By: #### 2 4356-8 ####[facility] LABCLIA [id number] [place] [address] [place] Ketones Ql (U) Negative Normal Negative [facility] Comment on above: Order Comment: Speci men Type: URINE SPECIMENOrdering Facility: [facility] Address: [address] [place] [address] Performed By: #### 2 4356-8 ####[facility] LABCLIA [id number] [place] [address] [place] Leukocyte esterase Test strip Ql (U) Negative Normal Negative [facility] Comment on above: Order Comment: Speci men Type: URINE SPECIMENOrdering Facility: [facility] Address: [address] [place] [address] Performed By: #### 2 4356-8 ####[facility] LABCLIA [id number] [place] [address] [place] Nitrite Ql (U) Negative Normal Negative [facility] Comment on above: Order Comment: Speci men Type: URINE SPECIMENOrdering Facility: [facility] Address: [address] [place] [address] Performed By: #### 2 4356-8 ####[facility] LABCLIA [id number] [place] [address] [place] pH (U) 6.0 [pH] Normal <8.5 [facility] Comment on above: Order Comment: Speci men Type: URINE SPECIMENOrdering Facility: [facility] Address: [address] [place] [address] Performed By: #### 2 4356-8 ####[facility] LABCLIA [id number] [place] [address] [place] Protein (U) [Mass/Vol] 1+ Abnormal Negative [facility] Comment on above: Order Comment: Speci men Type: URINE SPECIMENOrdering Facility: [facility] Address: [address] [place] [address] Performed By: #### 2 4356-8 ####[facility] LABIA [id number] [place] [address] [place] RBC LM.HPF (Urine sed) [#/Area] /[HPF] Abnormal 0-2 /HPF [facility] Comment on above: Order Comment: Speci men Type: URINE SPECIMENOrdering Facility: [facility] Address: [address] [place] [address] Performed By: #### 2 4356-8 ####[facility] [id number] [place] [address] [place] Specific gravity (U) [Rel density] 1.018 Normal 1.005-1.030 [facility] Comment on above: Order Comment: Speci men Type: URINE SPECIMENOrdering Facility: [facility] Address: [address] [place] [address] Performed By: #### 2 4356-8 ####[facility] LABIA [id number] [place] [address] [place] Urobilinogen Ql (U) 0.2 EU/dL Normal 0.2-1.0 EU/dL [facility] Comment on above: Order Comment: Speci men Type: URINE SPECIMENOrdering Facility: [facility] Address: [address] [place] [address] Performed By: #### 2 4356-8 ####[facility] LABIA [id number] [place] [address] [place] WBC LM.HPF (Urine sed) [#/Area] 0-5 /HPF Normal 0-5 /HPF [facility] Comment on above: Order Comment: Speci men Type: URINE SPECIMENOrdering Facility: [facility] Address: [address] [place] [address] Performed By: #### 2 4356-8 ####[facility] LABCLIA [id number] [place] [address] [place] CBC W Auto Differential pane l (Bld)on 09-08-2024 Basophils (Bld) [#/Vol] 0.03 10*3/uL Normal <0.11 [facility] Comment on above: Order Comment: Speci men Type: BLOOD SPECIMENOrdering Facility: [facility] Address: [address] [place] [address] Performed By: #### 5 7021-8 ####[facility] LABCLIA [id number] [place] [address] [place] Basophils/100 WBC (Bld) 0.6 % Normal [facility] Comment on above: Order Comment: Speci men Type: BLOOD SPECIMENOrdering Facility: [facility] Address: [address] [place] [address] Performed By: #### 5 7021-8 ####[facility] LABCLIA [id number] [place] [address] [place] Differential cell count method Nom (Bld) Auto Normal [facility] Comment on above: Order Comment: Speci men Type: BLOOD SPECIMENOrdering Facility: [facility] Address: [address] [place] [address] Performed By: #### 5 7021-8 ####[facility] LABCLIA [id number] [place] [address] [place] Eosinophils (Bld) [#/Vol] 0.11 10*3/uL Normal <0.46 [facility] Comment on above: Order Comment: Speci men Type: BLOOD SPECIMENOrdering Facility: [facility] Address: [address] [place] [address] Performed By: #### 5 7021-8 ####[facility] LABCLIA [id number] [place] [address] [place] Eosinophils/100 WBC (Bld) 2.0 % Normal [facility] Comment on above: Order Comment: Speci men Type: BLOOD SPECIMENOrdering Facility: [facility] Address: [address] [place] [address] Performed By: #### 5 7021-8 ####[facility] LABCLIA [id number] [place] [address] [place] Erythrocyte distribution width (RBC) [Ratio] 14.2 % Normal 11.5-15.0 [facility] Comment on above: Order Comment: Speci men Type: BLOOD SPECIMENOrdering Facility: [facility] Address: [address] [place] [address] Performed By: #### 5 7021-8 ####[facility] LABCLIA [id number] [place] [address] [place] Hematocrit (Bld) [Volume fraction] 34.7 % Low 36.0-46.0 [facility] Comment on above: Order Comment: Speci men Type: BLOOD SPECIMENOrdering Facility: [facility] Address: [address] [place] [address] Performed By: #### 5 7021-8 ####[facility] LABCLIA [id number] [place] [address] [place] Hemoglobin (Bld) [Mass/Vol] 10.9 g/dL Low 11.5-15.5 [facility] Comment on above: Order Comment: Speci men Type: BLOOD SPECIMENOrdering Facility: [facility] Address: [address] [place] [address] Performed By: #### 5 7021-8 ####[facility] LABCLIA [id number] [place] [address] [place] Immature granulocytes (Bld) [#/Vol] 10*3/uL Normal <0.10 [facility] Comment on above: Order Comment: Speci men Type: BLOOD SPECIMENOrdering Facility: [facility] Address: [address] [place] [address] Performed By: #### 5 7021-8 ####[facility] LABCLIA [id number] [place] [address] [place] Immature granulocytes/100 WBC (Bld) 0.2 % Normal [facility] Comment on above: Order Comment: Speci men Type: BLOOD SPECIMENOrdering Facility: [facility] Address: [address] [place] [address] Performed By: #### 5 7021-8 ####[facility] LABCLIA [id number] [place] [address] [place] Lymphocytes (Bld) [#/Vol] 1.13 10*3/uL Normal 1.00-4.00 [facility] Comment on above: Order Comment: Speci men Type: BLOOD SPECIMENOrdering Facility: [facility] Address: [address] [place] [address] Performed By: #### 5 7021-8 ####[facility] LABCLIA [id number] [place] [address] [place] Lymphocytes/100 WBC (Bld) 21.0 % Normal [facility] Comment on above: Order Comment: Speci men Type: BLOOD SPECIMENOrdering Facility: [facility] Address: [address] [place] [address] Performed By: #### 5 7021-8 ####[facility] LABCLIA [id number] [place] [address] [place] MCH (RBC) [Entitic mass] 27.6 pg Normal 26.0-34.0 [facility] Comment on above: Order Comment: Speci men Type: BLOOD SPECIMENOrdering Facility: [facility] Address: [address] [place] [address] Performed By: #### 5 7021-8 ####[facility] LABCLIA [id number] [place] [address] [place] MCHC (RBC) [Mass/Vol] 31.4 g/dL Normal 30.5-36.0 [facility] Comment on above: Order Comment: Speci men Type: BLOOD SPECIMENOrdering Facility: [facility] Address: [address] [place] [address] Performed By: #### 5 7021-8 ####[facility] LABCLIA [id number] [place] [address] [place] MCV (RBC) [Entitic vol] 87.8 fL Normal 80.0-100.0 [facility] Comment on above: Order Comment: Speci men Type: BLOOD SPECIMENOrdering Facility: [facility] Address: [address] [place] [address] Performed By: #### 5 7021-8 ####[facility] LABIA [id number] [place] [address] [place] Monocytes (Bld) [#/Vol] 0.71 10*3/uL Normal <0.87 [facility] Comment on above: Order Comment: Speci men Type: BLOOD SPECIMENOrdering Facility: [facility] Address: [address] [place] [address] Performed By: #### 5 7021-8 ####[facility] LABIA [id number] [place] [address] [place] Monocytes/100 WBC (Bld) 13.2 % Normal [facility] Comment on above: Order Comment: Speci men Type: BLOOD SPECIMENOrdering Facility: [facility] Address: [address] [place] [address] Performed By: #### 5 7021-8 ####[facility] LABIA [id number] [place] [address] [place] Neutrophils (Bld) [#/Vol] 3.40 10*3/uL Normal 1.45-7.50 [facility] Comment on above: Order Comment: Speci men Type: BLOOD SPECIMENOrdering Facility: [facility] Address: [address] [place] [address] Performed By: #### 5 7021-8 ####[facility] LABCLIA [id number] [place] [address] [place] Neutrophils/100 WBC (Bld) 63.0 % Normal [facility] Comment on above: Order Comment: Speci men Type: BLOOD SPECIMENOrdering Facility: [facility] Address: [address] [place] [address] Performed By: #### 5 7021-8 ####[facility] LABIA [id number] [place] [address] [place] Nucleated RBC (Bld) [#/Vol] 10*3/uL Normal <0.01 [facility] Comment on above: Order Comment: Speci men Type: BLOOD SPECIMENOrdering Facility: [facility] Address: [address] [place] [address] Performed By: #### 5 7021-8 ####[facility] LABIA [id number] [place] [address] [place] Nucleated RBC/100 WBC (Bld) [Ratio] 0.0 /100 WBC Normal [facility] Comment on above: Order Comment: Speci men Type: BLOOD SPECIMENOrdering Facility: [facility] Address: [address] [place] [address] Performed By: #### 5 7021-8 ####[facility] LABIA [id number] [place] [address] [place] Platelet mean volume (Bld) [Entitic vol] 11.0 fL Normal 9.0-12.7 [facility] Comment on above: Order Comment: Speci men Type: BLOOD SPECIMENOrdering Facility: [facility] Address: [address] [place] [address] Performed By: #### 5 7021-8 ####[facility] LABCLIA [id number] [address] [address] [place] Platelets (Bld) [#/Vol] 219 10*3/uL Normal 150-400 [facility] Comment on above: Order Comment: Speci men Type: BLOOD SPECIMENOrdering Facility: [facility] Address: [address] [place] [address] Performed By: #### 5 7021-8 ####[facility] LABIA [id number] [place] [address] [place] RBC (Bld) [#/Vol] 3.95 10*6/uL Normal 3.90-5.20 [facility] Comment on above: Order Comment: Speci men Type: BLOOD SPECIMENOrdering Facility: [facility] Address: [address] [place] [address] Performed By: #### 5 7021-8 ####[facility] LABIA [id number] [place] [address] [place] WBC (Bld) [#/Vol] 5.39 10*3/uL Normal 3.70-11.00 [facility] Comment on above: Order Comment: Speci men Type: BLOOD SPECIMENOrdering Facility: [facility] Address: [address] [place] [address] Performed By: #### 5 7021-8 ####[facility] LABIA [id number] [place] [address] [place] CNPNon 08-29-2024 CNPN Normal [facility] Hemoccult Stl Ql IAon 2023 Lower GI hemoglobin IA Ql (Stl) Negative Normal Negative [facility] Comment on above: Order Comment: Speci men Type: STOOL SPECIMENOrdering Facility: [facility] Address: [address] [place] [address] Performed By: #### 2 9771-3 ####[facility] LABCLIA [id number] [place] [address] [place] CBC W Auto Differential pane l (Bld)on 08-24-2024 Basophils (Bld) [#/Vol] 0.03 10*3/uL Normal <0.11 [facility] Comment on above: Order Comment: Speci men Type: BLOOD SPECIMENOrdering Facility: [facility] Address: [address] [place] [address] Performed By: #### 1 4196-0, 04710-6 ####[facility] LABCLIA [id number] [place] [address] [place] Basophils/100 WBC (Bld) 0.4 % Normal [facility] Comment on above: Order Comment: Speci men Type: BLOOD SPECIMENOrdering Facility: [facility] Address: [address] [place] [address] Performed By: #### 1 4196-0, 23847-5 ####[facility] LABIA [id number] [place] [address] [place] Differential cell count method Nom (Bld) Auto Normal [facility] Comment on above: Order Comment: Speci men Type: BLOOD SPECIMENOrdering Facility: [facility] Address: [address] [place] [address] Performed By: #### 1 4196-0, 06699-3 ####[facility] LABCLIA [id number] [place] [address] [place] Eosinophils (Bld) [#/Vol] 0.13 10*3/uL Normal <0.46 [facility] Comment on above: Order Comment: Speci men Type: BLOOD SPECIMENOrdering Facility: [facility] Address: [address] [place] [address] Performed By: #### 1 4196-0, 78573-9 ####[facility] LABIA [id number] [place] [address] [place] Eosinophils/100 WBC (Bld) 1.8 % Normal [facility] Comment on above: Order Comment: Speci men Type: BLOOD SPECIMENOrdering Facility: [facility] Address: [address] [place] [address] Performed By: #### 1 4196-0, 47631-6 ####[facility] LABCLIA [id number] [place] [address] [place] Erythrocyte distribution width (RBC) [Ratio] 14.2 % Normal 11.5-15.0 [facility] Comment on above: Order Comment: Speci men Type: BLOOD SPECIMENOrdering Facility: [facility] Address: [address] [place] [address] Performed By: #### 1 4196-0, 94886-1 ####[facility] LABCLIA [id number] [place] [address] [place] Hematocrit (Bld) [Volume fraction] 35.5 % Low 36.0-46.0 [facility] Comment on above: Order Comment: Speci men Type: BLOOD SPECIMENOrdering Facility: [facility] Address: [address] [place] [address] Performed By: #### 1 4196-0, 20669-2 ####[facility] LABCLIA [id number] [place] [address] [place] Hemoglobin (Bld) [Mass/Vol] 11.2 g/dL Low 11.5-15.5 [facility] Comment on above: Order Comment: Speci men Type: BLOOD SPECIMENOrdering Facility: [facility] Address: [address] [place] [address] Performed By: #### 1 4196-0, 40046-8 ####[facility] LABCLIA [id number] [place] [address] [place] Immature granulocytes (Bld) [#/Vol] 10*3/uL Normal <0.10 [facility] Comment on above: Order Comment: Speci men Type: BLOOD SPECIMENOrdering Facility: [facility] Address: [address] [place] [address] Performed By: #### 1 4196-0, 11582-8 ####[facility] LABCLIA [id number] [place] [address] [place] Immature granulocytes/100 WBC (Bld) 0.3 % Normal [facility] Comment on above: Order Comment: Speci men Type: BLOOD SPECIMENOrdering Facility: [facility] Address: [address] [place] [address] Performed By: #### 1 4196-0, 54713-1 ####[facility] LABCLIA [id number] [place] [address] [place] Lymphocytes (Bld) [#/Vol] 0.97 10*3/uL Low 1.00-4.00 [facility] Comment on above: Order Comment: Speci men Type: BLOOD SPECIMENOrdering Facility: [facility] Address: [address] [place] [address] Performed By: #### 1 4196-0, 30167-8 ####[facility] LABCLIA [id number] [place] [address] [place] Lymphocytes/100 WBC (Bld) 13.7 % Normal [facility] Comment on above: Order Comment: Speci men Type: BLOOD SPECIMENOrdering Facility: [facility] Address: [address] [place] [address] Performed By: #### 1 4196-0, 00877-9 ####[facility] LABCLIA [id number] [place] [address] [place] MCH (RBC) [Entitic mass] 28.3 pg Normal 26.0-34.0 [facility] Comment on above: Order Comment: Speci men Type: BLOOD SPECIMENOrdering Facility: [facility] Address: [address] [place] [address] Performed By: #### 1 4196-0, 41688-0 ####[facility] LABCLIA [id number] [place] [address] [place] MCHC (RBC) [Mass/Vol] 31.5 g/dL Normal 30.5-36.0 [facility] Comment on above: Order Comment: Speci men Type: BLOOD SPECIMENOrdering Facility: [facility] Address: [address] [place] [address] Performed By: #### 1 4196-0, 64406-1 ####[facility] LABCLIA [id number] [place] [address] [place] MCV (RBC) [Entitic vol] 89.6 fL Normal 80.0-100.0 [facility] Comment on above: Order Comment: Speci men Type: BLOOD SPECIMENOrdering Facility: [facility] Address: [address] [place] [address] Performed By: #### 1 4196-0, 19191-0 ####[facility] LABIA [id number] [place] [address] [place] Monocytes (Bld) [#/Vol] 1.18 10*3/uL High <0.87 [facility] Comment on above: Order Comment: Speci men Type: BLOOD SPECIMENOrdering Facility: [facility] Address: [address] [place] [address] Performed By: #### 1 4196-0, 19596-9 ####[facility] LABCLIA [id number] [place] [address] [place] Monocytes/100 WBC (Bld) 16.7 % Normal [facility] Comment on above: Order Comment: Speci men Type: BLOOD SPECIMENOrdering Facility: [facility] Address: [address] [place] [address] Performed By: #### 1 4196-0, 21413-3 ####[facility] LABCLIA [id number] [place] [address] [place] Neutrophils (Bld) [#/Vol] 4.75 10*3/uL Normal 1.45-7.50 [facility] Comment on above: Order Comment: Speci men Type: BLOOD SPECIMENOrdering Facility: [facility] Address: [address] [place] [address] Performed By: #### 1 4196-0, 68394-6 ####[facility] LABCLIA [id number] [place] [address] [place] Neutrophils/100 WBC (Bld) 67.1 % Normal [facility] Comment on above: Order Comment: Speci men Type: BLOOD SPECIMENOrdering Facility: [facility] Address: [address] [place] [address] Performed By: #### 1 4196-0, 32412-2 ####[facility] LABCLIA [id number] [place] [address] [place] Nucleated RBC (Bld) [#/Vol] 10*3/uL Normal <0.01 [facility] Comment on above: Order Comment: Speci men Type: BLOOD SPECIMENOrdering Facility: [facility] Address: [address] [place] [address] Performed By: #### 1 4196-0, 09391-5 ####[facility] LABIA [id number] [place] [address] [place] Nucleated RBC/100 WBC (Bld) [Ratio] 0.0 /100 WBC Normal [facility] Comment on above: Order Comment: Speci men Type: BLOOD SPECIMENOrdering Facility: [facility] Address: [address] [place] [address] Performed By: #### 1 4196-0, 89525-4 ####[facility] LABCLIA [id number] [place] [address] [place] Platelet mean volume (Bld) [Entitic vol] 11.5 fL Normal 9.0-12.7 [facility] Comment on above: Order Comment: Speci men Type: BLOOD SPECIMENOrdering Facility: [facility] Address: [address] [place] [address] Performed By: #### 1 4196-0, 60486-6 ####[facility] LABCLIA [id number] [place] [address] [place] Platelets (Bld) [#/Vol] 179 10*3/uL Normal 150-400 [facility] Comment on above: Order Comment: Speci men Type: BLOOD SPECIMENOrdering Facility: [facility] Address: [address] [place] [address] Performed By: #### 1 4196-0, 90411-1 ####[facility] LABCLIA [id number] [place] [address] [place] RBC (Bld) [#/Vol] 3.96 10*6/uL Normal 3.90-5.20 [facility] Comment on above: Order Comment: Speci men Type: BLOOD SPECIMENOrdering Facility: [facility] Address: [address] [place] [address] Performed By: #### 1 4196-0, 69256-3 ####[facility] LABCLIA [id number] [place] [address] [place] WBC (Bld) [#/Vol] 7.08 10*3/uL Normal 3.70-11.00 [facility] Comment on above: Order Comment: Speci men Type: BLOOD SPECIMENOrdering Facility: [facility] Address: [address] [place] [address] Performed By: #### 1 4196-0, 32721-9 ####[facility] LABCLIA [id number] [facility] [place] [id number] [place] Ferritin [facility] Ferritin [Mass/Vol] 174.0 ng/mL Normal 14.7-205.1 [facility] Comment on above: Order Comment: Speci men Type: BLOOD SPECIMENOrdering Facility: [facility] Address: [address] [place] [address] Performed By: #### 2 284-8, 83738-5, 6-4, 9 ####[facility] LABCLIA [id number] [place] [address] [place] Folate SerPl-ncon 08-24-20 Folate [Mass/Vol] 7.6 ng/mL Normal >4.7 [facility] Comment on above: Order Comment: Speci men Type: BLOOD SPECIMENOrdering Facility: [facility] Address: [address] [place] [address] Performed By: #### 2 284-8, 04357-2, 6-4, 9 ####[facility] LABCLIA [id number] [place] [address] [place] Iron and Iron binding capaci ty panel 08-24-2024 Iron [Mass/Vol] 41 ug/dL Normal 41-186 [facility] Comment on above: Order Comment: Speci men Type: BLOOD SPECIMENOrdering Facility: [facility] Address: [address] [place] [address] Performed By: #### 2 284-8, 41993-6, 2275-4, 9 ####[facility] LABCLIA [id number] [place] [address] [place] Iron binding capacity [Mass/Vol] 239 ug/dL Normal 232-386 [facility] Comment on above: Order Comment: Speci men Type: BLOOD SPECIMENOrdering Facility: [facility] Address: [address] [place] [address] Performed By: #### 2 284-8, 81850-5, 6-4, 9 ####[facility] LABCLIA [id number] [place] [address] [place] Iron/TIBC [Molar ratio] 17.2 % Normal 15.0-57.0 [facility] Comment on above: Order Comment: Speci men Type: BLOOD SPECIMENOrdering Facility: [facility] Address: [address] [place] [address] Performed By: #### 2 284-8, 91981-3, 2276-4, 2132-9 ####[facility] LABIA [id number] [place] [address] [place] Retics #on 08-24-2024 Reticulocytes (Bld) [#/Vol] 0.14847 10*3/uL Normal 0.018-0.100 [facility] Comment on above: Order Comment: Speci men Type: BLOOD SPECIMENOrdering Facility: [facility] Address: [address] [place] [address] Performed By: #### 1 4196-0, 08110-1 ####[facility] [id number] [place] [address] [place] Reticulocytes (Bld) [#/Vol]o n 08-24-2024 Reticulocytes/100 RBC (Bld) 1.0 % Normal 0.4-2.0 [facility] Comment on above: Order Comment: Speci men Type: BLOOD SPECIMENOrdering Facility: [facility] Address: [address] [place] [address] Performed By: #### 1 4196-0, 21253-6 ####[facility] [id number] [place] [address] [place] Vit B12 [facility] Cobalamin (Vitamin B12) [Mass/Vol] 510 pg/mL Normal 232-1245 [facility] Comment on above: Order Comment: Speci men Type: BLOOD SPECIMENOrdering Facility: [facility] Address: [address] [place] [address] Performed By: #### 2 284-8, 69940-4, 6-4, 2132-9 ####[facility] LABCLIA [id number] [place] [address] [place] CNPNon 08-16-2024 CNPN Normal [facility] CBC W Auto Differential pane l (Bld)on 08-13-2024 Basophils (Bld) [#/Vol] 10*3/uL Normal <0.11 [facility] Comment on above: Order Comment: Speci men Type: BLOOD SPECIMENOrdering Facility: [facility] Address: [address] [place] [address] Performed By: #### 4 537-7, 17928-1 ####[facility] LABCLIA [id number] [place] [address] [place] Basophils/100 WBC (Bld) 0.1 % Normal [facility] Comment on above: Order Comment: Speci men Type: BLOOD SPECIMENOrdering Facility: [facility] Address: [address] [place] [address] Performed By: #### 4 537-7, 07726-0 ####[facility] LABCLIA [id number] [place] [address] [place] Differential cell count method Nom (Bld) Auto Normal [facility] Comment on above: Order Comment: Speci men Type: BLOOD SPECIMENOrdering Facility: [facility] Address: [address] [place] [address] Performed By: #### 4 537-7, 11394-8 ####[facility] LABCLIA [id number] [place] [address] [place] Eosinophils (Bld) [#/Vol] 10*3/uL Normal <0.46 [facility] Comment on above: Order Comment: Speci men Type: BLOOD SPECIMENOrdering Facility: [facility] Address: [address] [place] [address] Performed By: #### 4 537-7, 24769-9 ####[facility] LABCLIA [id number] [place] [address] [place] Eosinophils/100 WBC (Bld) 0.0 % Normal [facility] Comment on above: Order Comment: Speci men Type: BLOOD SPECIMENOrdering Facility: [facility] Address: [address] [place] [address] Performed By: #### 4 537-7, 00654-2 ####[facility] LABCLIA [id number] [place] [address] [place] Erythrocyte distribution width (RBC) [Ratio] 14.4 % Normal 11.5-15.0 [facility] Comment on above: Order Comment: Speci men Type: BLOOD SPECIMENOrdering Facility: [facility] Address: [address] [place] [address] Performed By: #### 4 537-7, 13701-5 ####[facility] LABIA [id number] [place] [address] [place] Hematocrit (Bld) [Volume fraction] 36.6 % Normal 36.0-46.0 [facility] Comment on above: Order Comment: Speci men Type: BLOOD SPECIMENOrdering Facility: [facility] Address: [address] [place] [address] Performed By: #### 4 537-7, 93633-8 ####[facility] LABIA [id number] [place] [address] [place] Hemoglobin (Bld) [Mass/Vol] 11.3 g/dL Low 11.5-15.5 [facility] Comment on above: Order Comment: Speci men Type: BLOOD SPECIMENOrdering Facility: [facility] Address: [address] [place] [address] Performed By: #### 4 537-7, 08485-5 ####[facility] LABCLIA [id number] [id number] [address] [place] Immature granulocytes (Bld) [#/Vol] 0.03 10*3/uL Normal <0.10 [facility] Comment on above: Order Comment: Speci men Type: BLOOD SPECIMENOrdering Facility: [facility] Address: [address] [place] [address] Performed By: #### 4 537-7, 16963-4 ####[facility] LABCLIA [id number] [place] [address] [place] Immature granulocytes/100 WBC (Bld) 0.3 % Normal [facility] Comment on above: Order Comment: Speci men Type: BLOOD SPECIMENOrdering Facility: [facility] Address: [address] [place] [address] Performed By: #### 4 537-7, 24479-6 ####[facility] LABCLIA [id number] [place] [address] [place] Lymphocytes (Bld) [#/Vol] 0.95 10*3/uL Low 1.00-4.00 [facility] Comment on above: Order Comment: Speci men Type: BLOOD SPECIMENOrdering Facility: [facility] Address: [address] [place] [address] Performed By: #### 4 537-7, 30783-1 ####[facility] LABCLIA [id number] [place] [address] [place] Lymphocytes/100 WBC (Bld) 10.8 % Normal [facility] Comment on above: Order Comment: Speci men Type: BLOOD SPECIMENOrdering Facility: [facility] Address: [address] [place] [address] Performed By: #### 4 537-7, 44986-8 ####[facility] LABCLIA [id number] [place] [address] [place] MCH (RBC) [Entitic mass] 27.6 pg Normal 26.0-34.0 [facility] Comment on above: Order Comment: Speci men Type: BLOOD SPECIMENOrdering Facility: [facility] Address: [address] [place] [address] Performed By: #### 4 537-7, 59786-6 ####[facility] LABCLIA [id number] [place] [address] [place] MCHC (RBC) [Mass/Vol] 30.9 g/dL Normal 30.5-36.0 [facility] Comment on above: Order Comment: Speci men Type: BLOOD SPECIMENOrdering Facility: [facility] Address: [address] [place] [address] Performed By: #### 4 537-7, 50957-8 ####[facility] LABIA [id number] [place] [address] [place] MCV (RBC) [Entitic vol] 89.5 fL Normal 80.0-100.0 [facility] Comment on above: Order Comment: Speci men Type: BLOOD SPECIMENOrdering Facility: [facility] Address: [address] [place] [address] Performed By: #### 4 537-7, 55022-3 ####[facility] LABIA [id number] [place] [address] [place] Monocytes (Bld) [#/Vol] 0.59 10*3/uL Normal <0.87 [facility] Comment on above: Order Comment: Speci men Type: BLOOD SPECIMENOrdering Facility: [facility] Address: [address] [place] [address] Performed By: #### 4 537-7, 82746-0 ####[facility] LABIA [id number] [place] [address] [place] Monocytes/100 WBC (Bld) 6.7 % Normal [facility] Comment on above: Order Comment: Speci men Type: BLOOD SPECIMENOrdering Facility: [facility] Address: [address] [place] [address] Performed By: #### 4 537-7, 73617-1 ####[facility] LABCLIA [id number] [place] [address] [place] Neutrophils (Bld) [#/Vol] 7.25 10*3/uL Normal 1.45-7.50 [facility] Comment on above: Order Comment: Speci men Type: BLOOD SPECIMENOrdering Facility: [facility] Address: [address] [place] [address] Performed By: #### 4 537-7, 41333-8 ####[facility] LABCLIA [id number] [place] [address] [place] Neutrophils/100 WBC (Bld) 82.1 % Normal [facility] Comment on above: Order Comment: Speci men Type: BLOOD SPECIMENOrdering Facility: [facility] Address: [address] [place] [address] Performed By: #### 4 537-7, 64522-3 ####[facility] LABCLIA [id number] [place] [address] [place] Nucleated RBC (Bld) [#/Vol] 10*3/uL Normal <0.01 [facility] Comment on above: Order Comment: Speci men Type: BLOOD SPECIMENOrdering Facility: [facility] Address: [address] [place] [address] Performed By: #### 4 537-7, 66503-3 ####[facility] LABCLIA [id number] [place] [address] [place] Nucleated RBC/100 WBC (Bld) [Ratio] 0.0 /100 WBC Normal [facility] Comment on above: Order Comment: Speci men Type: BLOOD SPECIMENOrdering Facility: [facility] Address: [address] [place] [address] Performed By: #### 4 537-7, 79659-2 ####[facility] LABCLIA [id number] [place] [address] [place] Platelet mean volume (Bld) [Entitic vol] 11.4 fL Normal 9.0-12.7 [facility] Comment on above: Order Comment: Speci men Type: BLOOD SPECIMENOrdering Facility: [facility] Address: [address] [place] [address] Performed By: #### 4 537-7, 94828-4 ####[facility] LABCLIA [id number] [place] [address] [place] Platelets (Bld) [#/Vol] 219 10*3/uL Normal 150-400 [facility] Comment on above: Order Comment: Speci men Type: BLOOD SPECIMENOrdering Facility: [facility] Address: [address] [place] [address] Performed By: #### 4 537-7, 58976-8 ####[facility] LABCLIA [id number] [place] [address] [place] RBC (Bld) [#/Vol] 4.09 10*6/uL Normal 3.90-5.20 [facility] Comment on above: Order Comment: Speci men Type: BLOOD SPECIMENOrdering Facility: [facility] Address: [address] [place] [address] Performed By: #### 4 537-7, 56397-5 ####[facility] LABCLIA [id number] [place] [address] [place] WBC (Bld) [#/Vol] 8.83 10*3/uL Normal 3.70-11.00 [facility] Comment on above: Order Comment: Speci men Type: BLOOD SPECIMENOrdering Facility: [facility] Address: [address] [place] [address] Performed By: #### 4 537-7, 14657-5 ####[facility] LABCLIA [id number] [place] [address] [place] CK SerPl-cCncon 08-13-2024 CK [Catalytic activity/Vol] 25 U/L Low 42-196 [facility] Comment on above: Order Comment: Speci men Type: BLOOD SPECIMENOrdering Facility: [facility] Address: [address] [place] [address] Performed By: #### 2 157-6, 3016-3, 56423-9 ####[facility] LABCLIA [id number] [place] [address] [place] CRP SerPl-mCncon 08-13-2024 CRP [Mass/Vol] 0.5 mg/dL Normal <0.9 [facility] Comment on above: Order Comment: Speci men Type: BLOOD SPECIMENOrdering Facility: [facility] Address: [address] [place] [address] Performed By: #### Amee STALEY, , 1987-03, ####[facility] LABCLIA [id number] [place] [address] [place] Comprehensive metabolic 2000 panelon 08-13-2024 Albumin [Mass/Vol] 3.9 g/dL Normal 3.9-4.9 [facility] Comment on above: Order Comment: Speci men Type: BLOOD SPECIMENOrdering Facility: [facility] Address: [address] [place] [address] Performed By: #### Amee STALEY, , 1987-03, ####[facility] LABCLIA [id number] [place] [address] [place] ALP [Catalytic activity/Vol] 76 U/L Normal 34-123 [facility] Comment on above: Order Comment: Speci men Type: BLOOD SPECIMENOrdering Facility: [facility] Address: [address] [place] [address] Performed By: #### Amee 4FCHINA, , 1987-03, ####[facility] LABCLIA [id number] [place] [address] [place] ALT [Catalytic activity/Vol] 11 U/L Normal 7-38 [facility] Comment on above: Order Comment: Speci men Type: BLOOD SPECIMENOrdering Facility: [facility] Address: [address] [place] [address] Performed By: #### T 4FCHINA, , 1987-03, ####[facility] LABCLIA [id number] [place] [address] [place] Anion gap [Moles/Vol] 12 mmol/L Normal 8-15 [facility] Comment on above: Order Comment: Speci men Type: BLOOD SPECIMENOrdering Facility: [facility] Address: [address] [place] [address] Performed By: #### Amee STALEY, , ####[facility] LABCLIA [id number] [place] [address] [place] AST [Catalytic activity/Vol] 16 U/L Normal 13-35 [facility] Comment on above: Order Comment: Speci men Type: BLOOD SPECIMENOrdering Facility: [facility] Address: [address] [place] [address] Performed By: #### Amee 4FCHINA, , 1987-03, ####[facility] LABCLIA [id number] [place] [address] [place] Bilirubin [Mass/Vol] 0.4 mg/dL Normal 0.2-1.3 [facility] Comment on above: Order Comment: Speci men Type: BLOOD SPECIMENOrdering Facility: [facility] Address: [address] [place] [address] Performed By: #### T 4FCHINA, , 1987-03, ####[facility] LABCLIA [id number] [id number] [address] [place] Calcium [Mass/Vol] 9.9 mg/dL Normal 8.5-10.2 [facility] Comment on above: Order Comment: Speci men Type: BLOOD SPECIMENOrdering Facility: [facility] Address: [address] [place] [address] Performed By: #### T 4FCHINA, , ####[facility] LABCLIA [id number] [place] [address] [place] Chloride [Moles/Vol] 106 mmol/L Normal 98-107 [facility] Comment on above: Order Comment: Speci men Type: BLOOD SPECIMENOrdering Facility: [facility] Address: [address] [place] [address] Performed By: #### Amee 4FCHINA, , ####[facility] LABCLIA [id number] [place] [address] [place] CO2 [Moles/Vol] 23 mmol/L Normal 22-30 [facility] Comment on above: Order Comment: Speci men Type: BLOOD SPECIMENOrdering Facility: [facility] Address: [address] [place] [address] Performed By: #### T 4FCHINA, , ####[facility] [facility] LABCLIA [id number] [place] [address] [place] Creatinine [Mass/Vol] 1.38 mg/dL High 0.58-0.96 [facility] Comment on above: Order Comment: Speci men Type: BLOOD SPECIMENOrdering Facility: [facility] Address: [address] [place] [address] Performed By: #### T 4FCHINA, , 1987-03, ####[facility] LABCLIA [id number] [place] [id number] [place] Creatinine and Glomerular filtration rate.predicted panel (S/P/Bld) 40 mL/min/1.73m??? Low >=60 [facility] Comment on above: Order Comment: Lisa baptiste Type: BLOOD SPECIMENOrdering Facility: [facility] Address: [address] [place] [address] Result Comment: Nicole mated Glomerular Filtration Rate (eGFR) is calculated using the 2020 CKD-EPI creatinine equation. This equation utilizes serum creatinine, sex, and age as parameters. The creatinine assay has traceable calibration to isotope dilution-mass spectrometry. Refer to KDIGO guidelines for clinical interpretation. In patients with unstable renal function, e.g. those with acute kidney injury, the eGFR may not accurately reflect actual GFR. Performed By: #### T 4FTI, , ####[facility] LABCLIA [id number] [place] [address] [place] Glucose [Mass/Vol] 117 mg/dL High 74-99 [facility] Comment on above: Order Comment: Lisa baptiste Type: BLOOD SPECIMENOrdering Facility: [facility] Address: [address] [place] [address] Result Comment: The [place] Diabetes Association (ADA) provides guidance for cutoff values for fasting glucose and random glucose. The ADA defines fasting as no caloric intake for at least 8 hours. Fasting plasma glucose results between 100 to 125 mg/dL indicate increased risk for diabetes (prediabetes).Fasting plasma glucose results greater than or equal to 126 mg/dL meet the criteria for diagnosis of diabetes. In the absence of unequivocal hyperglycemia, results should be confirmed by repeat testing. In a patient with classic symptoms of hyperglycemia or hyperglycemic crisis, random plasma glucose results greater than or equal to 200 mg/dL meet the criteria for diagnosis of diabetes.Reference: Standards of Medical Care in Diabetes 2016, [place] [employer]. Diabetes Care. 2016.39(Suppl 1). Performed By: #### T 4FTI, , ####[facility] LABCLIA [id number] [place] [address] [place] Potassium [Moles/Vol] 4.4 mmol/L Normal 3.7-5.1 [facility] Comment on above: Order Comment: Speci men Type: BLOOD SPECIMENOrdering Facility: [facility] Address: [address] [place] [address] Performed By: #### Amee STALEY, , ####[facility] LABCLIA [id number] [place] [address] [place] Protein [Mass/Vol] 7.1 g/dL Normal 6.3-8.0 [facility] Comment on above: Order Comment: Speci men Type: BLOOD SPECIMENOrdering Facility: [facility] Address: [address] [place] [address] Performed By: #### Amee STALEY, , ####[facility] LABCLIA [id number] [place] [address] [place] Sodium [Moles/Vol] 141 mmol/L Normal 136-144 [facility] Comment on above: Order Comment: Speci men Type: BLOOD SPECIMENOrdering Facility: [facility] Address: [address] [place] [address] Performed By: #### Amee STALEY, , ####[facility] LABCLIA [id number] [place] [address] [place] Urea nitrogen [Mass/Vol] 24 mg/dL High 7-21 [facility] Comment on above: Order Comment: Speci men Type: BLOOD SPECIMENOrdering Facility: [facility] Address: [address] [place] [address] Performed By: #### Amee STALEY, , ####[facility] LABCLIA [id number] [address] [address] [place] ESR Westergren method (Bld) [Velocity]on 08-13-2024 ESR (Bld) [Velocity] 52 mm/h High 0-20 [facility] Comment on above: Order Comment: Speci men Type: BLOOD SPECIMENOrdering Facility: [facility] Address: [address] [place] [address] Performed By: #### 4 537-7, 48637-2 ####[facility] LABCLIA [id number] [place] [address] [place] Lipid 1996 panelon 4 Cholesterol [Mass/Vol] 122 mg/dL Normal <200 [facility] Comment on above: Order Comment: Speci men Type: BLOOD SPECIMENOrdering Facility: [facility] Address: [address] [place] [address] Result Comment: <200 mg/dL, Desirable 200-239 mg/dL, Borderline high>239 mg/dL, High Performed By: #### T 4FTI, , 1987-03, ####[facility] LABCLIA [id number] [place] [address] [place] Cholesterol in HDL [Mass/Vol] 41 mg/dL Normal >39 [facility] Comment on above: Order Comment: Speci men Type: BLOOD SPECIMENOrdering Facility: [facility] Address: [address] [place] [address] Result Comment: 40-5 9 mg/dL, Acceptable>59 mg/dL, High: Negative risk factor for coronary heart disease<40 mg/dL, Low: Positive risk factor for coronary heart disease Performed By: #### T 4FTI, , 1987-03, ####[facility] LABCLIA [id number] [place] [address] [place] Cholesterol in LDL [Mass/Vol] 64 mg/dL Normal <100 [facility] Comment on above: Order Comment: Speci men Type: BLOOD SPECIMENOrdering Facility: [facility] Address: [address] [place] [address] Result Comment: <100 mg/dL, Optimal 100-129 mg/dL, Near optimal/above optimal 130-159 mg/dL, Borderline high 160-189 mg/dL, High>189 mg/dL, Very highSecondary prevention optimal LDL Cholesterol levels are recommended to be < 70 mg/dL Performed By: #### T 4FCHINA, , ####[facility] LABCLIA [id number] [address] [address] [place] Cholesterol in LDL/Cholesterol in HDL [Mass ratio] 1.56 {ratio} Normal <2.54 [facility] Comment on above: Order Comment: Speci men Type: BLOOD SPECIMENOrdering Facility: [facility] Address: [address] [place] [address] Result Comment: Anna bennett:1. National Cholesterol Education Program ATP III Guideline At-A-Glance Quick Desk Reference: National Heart, Lung, and Blood [place]. National Institutes of Health. 2001: NIH Publication No. 01-3305.2. An International Atherosclerosis Society position paper: global recommendations for the management of dyslipidemia: executive summary, Atherosclerosis. 2014: 232(2):410-413. Performed By: #### T 4FCHINA, , ####[facility] LABCLIA [id number] [place] [address] [place] Cholesterol in VLDL [Mass/Vol] 17 mg/dL Normal <30 [facility] Comment on above: Order Comment: Speci men Type: BLOOD SPECIMENOrdering Facility: [facility] Address: [address] [place] [address] Performed By: #### T 4FTI, , ####[facility] LABCLIA [id number] [address] [address] [place] Cholesterol non HDL [Mass/Vol] 81 mg/dL Normal <130 [facility] Comment on above: Order Comment: Speci men Type: BLOOD SPECIMENOrdering Facility: [facility] Address: [address] [place] [address] Result Comment: <130 mg/dL, Optimal 130-159 mg/dL, Near optimal/above optimal 160-189 mg/dL, Borderline high 190-219 mg/dL, High>219 mg/dL, Very highSecondary prevention optimal non HDL Cholesterol levels are recommended to be <100 mg/dL Performed By: #### Amee 4FCHINA, , 1987-03, ####[facility] LABCLIA [id number] [place] [address] [place] Cholesterol.total/Cho lesterol in HDL [Mass ratio] 2.98 {ratio} Normal <5.10 [facility] Comment on above: Order Comment: Speci men Type: BLOOD SPECIMENOrdering Facility: [facility] Address: [address] [place] [address] Performed By: #### Amee STALEY, , 1987-03, ####[facility] LABCLIA [id number] [place] [address] [place] FASTING TIME 12 hrs Normal [facility] Comment on above: Order Comment: Speci men Type: BLOOD SPECIMENOrdering Facility: [facility] Address: [address] [place] [address] Performed By: #### Amee 4FCHINA, , 1987-03, ####[facility] LABCLIA [id number] [place] [address] [place] Triglyceride [Mass/Vol] 85 mg/dL Normal <150 [facility] Comment on above: Order Comment: Speci men Type: BLOOD SPECIMENOrdering Facility: [facility] Address: [address] [place] [address] Result Comment: <150 mg/dL, Normal 150-199 mg/dL, Borderline high 200-499 mg/dL, High>499 mg/dL, Very high Performed By: #### Amee 4FCHINA, , 1987-03, ####[facility] LABCLIA [id number] [address] [address] [place] Magnesium SerPl-mCncon 08-13 Magnesium [Mass/Vol] 2.1 mg/dL Normal 1.7-2.3 [facility] Comment on above: Order Comment: Speci men Type: BLOOD SPECIMENOrdering Facility: [facility] Address: [address] [place] [address] Performed By: #### 2 157-6, 3016-3, 88180-1 ####[facility] LABIA [id number] [place] [address] [place] T4/FTI/T4Uon 08-13-2024 FTI 7.5 ug/dL Normal 5.3-10.8 [facility] Comment on above: Order Comment: Speci men Type: BLOOD SPECIMENOrdering Facility: [facility] Address: [address] [place] [address] Performed By: #### T 4FTI, , 1987-03, ####[facility] LABIA [id number] [place] [address] [place] T4 [Mass/Vol] 7.3 ug/dL Normal 5.5-10.2 [facility] Comment on above: Order Comment: Speci men Type: BLOOD SPECIMENOrdering Facility: [facility] Address: [address] [place] [address] Performed By: #### T 4FTI, , 1987-03, ####[facility] LABIA [id number] [place] [id number] [place] T4 uptake [Mass/Vol] 0.97 Normal 0.91-1.19 [facility] Comment on above: Order Comment: Speci men Type: BLOOD SPECIMENOrdering Facility: [facility] Address: [address] [place] [address] Performed By: #### T 4FCHINA, , 1987-03, ####[facility] LABCLIA [id number] [place] [id number] [place] TSH SerPl-aCncon 08-13-2024 TSH Qn 1.970 m[IU]/L Normal 0.270-4.200 [facility] Comment on above: Order Comment: Speci men Type: BLOOD SPECIMENOrdering Facility: [facility] Address: [address] [place] [address] Performed By: #### 2 157-6, 3016-3, 33020-8 ####[facility] LABCLIA [id number] [place] [address] [place] CNOVon 08-12-2024 CNOV Normal [facility] CNPNon 08-10-2024 CNPN Normal [facility] CNOVon 08-09-2024 CNOV Normal [facility] XR DIGIT 3V FRONTAL/LAT/OBL RTon 08-09-2024 XR DIGIT 3V FRONTAL/LAT/OBL RT Normal [facility] XR Finger - right AP and Lat eral and obliqueon 08-09-2024 Radiology Study observation (narrative) [facility] IMPRESSION: No acute osseous abnormality. Right first carpometacarpal degenerative disease. Medical Clerk: MARTHA Transcribe Date/Time: Aug 09 2024 1:34P Dictated by : SHEREE ROBERT MD This examination was interpreted and the report reviewed and electronically signed by: SHEREE ROBERT MD on Aug 09 2024 1:37PM [facility] DIVISION OF RADIOLOGY * * *Final Report* * * DATE OF EXAM: Aug 09 2024 1:33PM WOX [id number] - XR DIGIT 3V FRONTAL/LAT/OBL RT / PROCEDURE REASON: Pain of right thumb * * * * Physician Interpretation * * * * EXAMINATION: XR DIGIT 3V FRONTAL/LAT/OBL RT CLINICAL HISTORY: Right thumb pain Technique: XR DIGIT 3V FRONTAL/LAT/OBL RT -- RIGHT with 3 views on 3 images Comparison: X-ray right thumb 07/07/2022 RESULT: No acute fracture or dislocation. Right first carpometacarpal joint space narrowing with subchondral sclerosis and marginal osteophytes. No radiodense foreign body. DIVISION OF RADIOLOGY Provider, Juanis wyatt [place] - 08/09/2024 * * *Final Report* * * DATE OF EXAM: Aug 09 2024 1:33PM WOX [id number] - XR DIGIT 3V FRONTAL/LAT/OBL RT / PROCEDURE REASON: Pain of right thumb * * * * Physician Interpretation * * * * EXAMINATION: XR DIGIT 3V FRONTAL/LAT/OBL RT CLINICAL HISTORY: Right thumb pain Technique: XR DIGIT 3V FRONTAL/LAT/OBL RT -- RIGHT with 3 views on 3 images Comparison: X-ray right thumb 07/07/2022 RESULT: No acute fracture or dislocation. Right first carpometacarpal joint space narrowing with subchondral sclerosis and marginal osteophytes. No radiodense foreign body. IMPRESSION IMPRESSION: No acute osseous abnormality. Right first carpometacarpal degenerative disease. Medical Clerk: PSCPorfirio Transcribe Date/Time: Aug 09 2024 1:34P Dictated by : SHEREE ROBERT MD This examination was interpreted and the report reviewed and electronically signed by: SHEREE ROBERT MD on Aug 09 2024 1:37PM EST [facility] XR Finger - right AP and Lat eral and obliqueOrdered By: Ccf Provider on 08-09-2024 [facility] CNOVon 07-26-2024 CNOV Normal [facility] CNOVon 07-25-2024 CNOV Normal [facility] [id number] 07-25-2024 ECG01 Normal [facility] CNOVon 07-18-2024 CNOV Normal [facility] CNPNon 07-14-2024 CNPN Normal [facility] CNPNon 07-07-2024 CNPN Normal [facility] CNPNon 06-30-2024 CNPN Normal [facility] CNPNon 06-27-2024 CNPN Normal [facility] CNOVon 06-08-2024 CNOV Normal [facility] XR ANKLE 3V AP/LAT/OBL RTon 06-08-2024 XR ANKLE 3V AP/LAT/OBL RT Normal [facility] XR Ankle - right AP and Late ral and obliqueon 06-08-2024 IMPRESSION: Soft tis jac swelling along the lateral malleolus. No definite acute fractures identified. Patient can be reevaluated in 10-14 days if symptoms persist. Medical Clerk: MARTHA Transcribe Date/Time: Jun 08 2024 4:28P Dictated by : MISBAH LENTZ MD This examination was interpreted and the report reviewed and electronically signed by: MISBAH LENTZ MD on Jun 08 2024 4:30PM [facility] DIVISION OF RADIOLOGY * * *Final Report* * * DATE OF EXAM: Jun 08 2024 4:22PM WOX [id number] - XR ANKLE 3V AP/LAT/OBL RT / PROCEDURE REASON: Injury of right ankle, initial encounter * * * * Physician Interpretation * * * * EXAM TITLE: XR ANKLE 3V AP/LAT/OBL RT EXAM DATE/TIME: 06/08/2024 4:22 PM COMPARISON: None. CLINICAL INDICATION/HISTORY: Injury. TECHNIQUE: AP and lateral views of the right ankle are presented. FINDINGS: No definite fractures or subluxations are noted. The mortise joint spaces are well preserved. There is no evidence of joint effusion. Calcaneal enthesophyte is noted. The mineralization of the bones is normal. There is soft tissue swelling along the lateral malleolus. DIVISION OF RADIOLOGY Provider, [facility] - 06/08/2024 * * *Final Report* * * DATE OF EXAM: Jun 08 2024 4:22PM WOX [id number] - XR ANKLE 3V AP/LAT/OBL RT / PROCEDURE REASON: Injury of right ankle, initial encounter * * * * Physician Interpretation * * * * EXAM TITLE: XR ANKLE 3V AP/LAT/OBL RT EXAM DATE/TIME: 06/08/2024 4:22 PM COMPARISON: None. CLINICAL INDICATION/HISTORY: Injury. TECHNIQUE: AP and lateral views of the right ankle are presented. FINDINGS: No definite fractures or subluxations are noted. The mortise joint spaces are well preserved. There is no evidence of joint effusion. Calcaneal enthesophyte is noted. The mineralization of the bones is normal. There is soft tissue swelling along the lateral malleolus. IMPRESSION IMPRESSION: Soft tissue swelling along the lateral malleolus. No definite acute fractures identified. Patient can be reevaluated in 10-14 days if symptoms persist. Medical Clerk: MARTHA Transcribe Date/Time: Jun 08 2024 4:28P Dictated by : MISBAH LENTZ MD This examination was interpreted and the report reviewed and electronically signed by: MISBAH LENTZ MD on Jun 08 2024 4:30PM EST [facility] Radiology Study observation (narrative) [facility] XR Ankle - right AP and Late ral and obliqueOrdered By: Ccf Provider on 06-08-2024 [facility] CNPNon 06-03-2024 CNPN Normal [facility] CNOVon 06-02-2024 CNOV Normal [facility] UA DIP, URINE (POC)on 2023 BILIRUBIN UA (POCT) Small Abnormal Negative [facility] CLARITY UA (POCT) Clear [facility] COLOR UA (POCT) Yellow [facility] GLUCOSE UA (POCT) Negative Negative mg/dL [facility] Hemoglobin Ql (U) Large Abnormal Negative [facility] KETONE UA (POCT) Negative Negative mg/dL [facility] LEUKOCYTES UA (POCT) Negative Negative [facility] NITRITE UA (POCT) Negative Negative [facility] PH UA (POCT) 5.5 4.5 - 8.0 [facility] Protein Ql (U) 100 mg/dL Abnormal Negative mg/dL [facility] SPECIFIC GRAVITY UA (POCT) 1.015 1.005 - 1.030 [facility] UROBILINOGEN UA (POCT) 0.2 E.U./dL Normal E.U./dL [facility] XR Chest PA and Lateralon IMPRESSION: Stable chronic changes on the left. Medical Clerk: MARTHA Transcribe Date/Time: Jan 20 2024 4:18P Dictated by : LOGAN KIRBY MD This examination was interpreted and the report reviewed and electronically signed by: LOGAN KIRBY MD on Jan 20 2024 4:21PM EST DIVISION OF RADIOLOGY * * *Final Report* * * DATE OF EXAM: Jan 20 2024 4:18PM WOX [id number] - XR CHEST 2V FRONTAL/LAT / PROCEDURE REASON: Acute cough * * * * Physician Interpretation * * * * EXAMINATION: CHEST RADIOGRAPH (2 VIEW FRONTAL & LATERAL) CLINICAL HISTORY: Acute cough MQ: XC2_6 EXAM DATE/TIME: 01/20/2024 4:18 PM COMPARISON: 02/25/2022 and 06/08/2023 RESULT: Lines, tubes, and devices: None. Lungs and pleura: Left pleural scarring and tenting of the diaphragm is stable. Lung alcantar otherwise clear. No pneumothorax. No pleural fluid Cardiomediastinal silhouette: Normal cardiomediastinal silhouette. Bones and soft tissues: Multilevel degenerative change throughout the spine. DIVISION OF RADIOLOGY Provider, Juanis Nation - 01/20/2024 * * *Final Report* * * DATE OF EXAM: Jan 20 2024 4:18PM WOX [id number] - XR CHEST 2V FRONTAL/LAT / PROCEDURE REASON: Acute cough * * * * Physician Interpretation * * * * EXAMINATION: CHEST RADIOGRAPH (2 VIEW FRONTAL & LATERAL) CLINICAL HISTORY: Acute cough MQ: XC2_6 EXAM DATE/TIME: 01/20/2024 4:18 PM COMPARISON: 02/25/2022 and 06/08/2023 RESULT: Lines, tubes, and devices: None. Lungs and pleura: Left pleural scarring and tenting of the diaphragm is stable. Lung alcantar otherwise clear. No pneumothorax. No pleural fluid Cardiomediastinal silhouette: Normal cardiomediastinal silhouette. Bones and soft tissues: Multilevel degenerative change throughout the spine. IMPRESSION IMPRESSION: Stable chronic changes on the left. Medical Clerk: MARTHA Transcribe Date/Time: Jan 20 2024 4:18P Dictated by : LOGAN KIRBY MD This examination was interpreted and the report reviewed and electronically signed by: LOGAN KIRBY MD on Jan 20 2024 4:21PM [facility] Radiology Study observation (narrative) [facility] XR Chest PA and LateralOrder ed By: Ccf Provider on 01-20-2024 [facility] CT UROGRAM WO/W IVCONon 11-1 [facility] Jay 08-26-2023 POLI Telephone (AKURFL) TERRI BURCIAGA ([id number]) 1945 [address] [place]* Date Time Provider Department 08/26/23 ANITRA JUAREZ During your visit today, we recorded the following information about you: Venessa Willams 08/26/2023 1:41 PM Signed FYI: Pt scheduled for cysto in [facility] for microscopic hematuria. CT prior 09/16. Ref by Porfirio Johnson. She saw Dr. Alvarez in 2021, but she wanted in sooner in [facility]. Thanks, Therese Allergies As of Date: 08/26/2023 Noted Allergy Reaction cigarette smoke [Other] 03/16/2012 3 - Cough 9 - Itching 12 - Shortness of Breath ADHESIVE TAPE (ROSINS) 07/13/2014 9 - Itching ALEVE (NAPROXEN SODIUM) 10/21/2005 8 - GI Upset ATIVAN (LORAZEPAM) 08/06/2020 14 - Other: See Comments Comments: depression CATS 05/21/2010 LOPRESSOR (METOPROLOL TARTRATE) 09/03/2005 1 - Mental Status Change NICKEL 04/25/2014 2 - Rash NORVASC (AMLODIPINE BESYLATE) 01/08/2017 7 - Swelling Comments: Swelling to feet and ankles SULFA (SULFONAMIDE ANTIBIOTICS) 09/03/2005 Comments: severe headache VIOXX (ROFECOXIB) 09/03/2005 8 - GI Upset Date Reviewed: 08/25/2023 Reviewed by: Kamla Kerr LPN - Fully Assessed Reason for Visit: Appointment [186] Prescriptions as of 08/26/2023 - coenzyme Q10 (CO Q-10) 100 mg cap capsule Take 100 mg by mouth once daily. - iv contrast (will be provided with radiology test) CT Urogram WO/W Inject, intravenously, once for 1 dose.No IV access, insert saline lock prior to the beginning of sedation, infusion, injection of imaging exam. Discontinue saline lock post exam. If Pt. has a central line or IVAD, may access for administration according to line specific nursing protocol. Once exam is complete flush line and de-access according to line specific nursing protocol in the CT contrast administration guidelines link. - krill/om-3/dha/epa/phospho/a st (MAXIMUM RED KRILL OMEGA-3 ORAL) Take by mouth once daily. - Azelastine HCl (OPTIVAR) 0.05 % ophthalmic solution Use 1 Drop in both eyes twice daily. - cloNIDine HCl (CATAPRES) 0.1 mg tablet Take 1 tablet by mouth twice daily. - ascorbic acid (VITAMIN C ORAL) Take by mouth once daily. - elderberry fruit (ELDERBERRY ORAL) Take by mouth once daily. - CALCIUM ORAL Take by mouth once daily. - cloNIDine HCl (CATAPRES) 0.1 mg tablet Take 1 tablet by mouth daily at bedtime. - losartan (COZAAR) 100 mg tablet Take 1 tablet by mouth once daily. - potassium chloride ER (KLOR-CON) 20 mEq tablet Take 1 tablet by mouth twice daily. - hydroCHLOROthiazide 12.5 mg capsule Take 1 capsule by mouth once daily. - cyclobenzaprine (FLEXERIL) 5 mg tablet Take 1 tablet by mouth three times daily as needed. - risfr-G0-R8-W54-[id number]-X3-KKKX-Q6 0 1 mg-25 mg-12.5 mg-1 mg tab Take by mouth once daily. - Vitamin E 1 mg, Vitamin A 1 mg, Collagen Support Vaginal Cream (CPD) Apply 1 g to affected area three times a week. - pyridoxine, vitamin B6, (VITAMIN B6) 100 mg tablet Take 100 mg by mouth once daily. - Magnesium 200 mg tab Take 1 tablet by mouth once daily. - Garlic 100 mg tab Take 1 tablet by mouth once daily. - Zinc 50 mg tab Take by mouth. Calcium magnesium - esomeprazole (NEXIUM) 20 mg capsule Take 1 capsule by mouth DAILY (6 AM). - BIOTIN ORAL Take by mouth once daily. - diphenhydrAMINE HCl 12.5 mg chewable tablet Take 12.5 mg by mouth at bedtime as needed. - Cholecalciferol, Vitamin D3, 25 mcg (1,000 unit) cap Take 1,000 Units by mouth once daily. Problem List As Of Date 08/26/2023 Noted Resolved BENIGN HYPERTENSION [I10] 10/15/2006 03/10/2008 LIPOMA NOS [D17.9] 04/23/2007 PERIPHERAL VERTIGO NOS [H81.399] 02/24/2008 Nonallopathic lesion of rib cage, not elsewhere*02/24/2008 02/12/2017 Essential hypertension with goal blood pressure*03/10/2008 Otalgia, unspecified [H92.09] 03/10/2008 02/12/2017 Hypopotassemia [E87.6] 03/10/2008 02/12/2017 Esophageal reflux [K21.9] ESOPHAGITIS, UNSPECIFIED [K20.90] 10/16/2008 03/16/2009 Sciatica [M54.30] 12/15/2008 02/12/2017 Mixed hyperlipidemia [E78.2] 03/16/2009 Depression [F32.A] 12/01/2009 Nocturnal Muscle Cramps [R25.2] 12/01/2009 Fatigue [R53.83] 05/21/2010 12/15/2018 Obesity [E66.9] 09/21/2010 Osteopenia [M85.80] History of colon polyps [Z86.010] 01/11/2016 Gastroesophageal reflux disease [K21.9] 01/11/2016 07/11/2020 Dry eye syndrome [H04.129] 05/05/2016 Nuclear sclerosis of both eyes [H25.13] 05/05/2016 Blepharitis of both upper and lower eyelid of r*07/02/2016 Prediabetes [R73.03] 12/03/2015 Chronic progressive renal failure, stage 3 (mod*12/04/2016 12/15/2018 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 Normal [facility] UA DIP, URINE (POC)on 2022 BILIRUBIN UA (POCT) Negative Negative [facility] CLARITY UA (POCT) Clear [facility] COLOR UA (POCT) Light yellow [facility] GLUCOSE UA (POCT) Negative Negative mg/dL [facility] Hemoglobin Ql (U) Moderate Abnormal Negative [facility] KETONE UA (POCT) Negative Negative mg/dL [facility] LEUKOCYTES UA (POCT) Negative Negative [facility] NITRITE UA (POCT) Negative Negative [facility] PH UA (POCT) 7.0 4.5 - 8.0 [facility] Protein Ql (U) 30 mg/dL Abnormal Negative mg/dL [facility] SPECIFIC GRAVITY UA (POCT) 1.010 1.005 - 1.030 [facility] UROBILINOGEN UA (POCT) 0.2 E.U./dL Normal E.U./dL [facility] US ABD RIGHT UPPER QUADRANTo n 08-19-2023 [facility] Comprehensive metabolic 2000 panelon 08-18-2023 Albumin [Mass/Vol] 4.1 g/dL 3.9 - 4.9 g/dL [facility] ALP [Catalytic activity/Vol] 82 U/L 34 - 123 U/L [facility] ALT [Catalytic activity/Vol] 11 U/L 7 - 38 U/L [facility] Anion gap [Moles/Vol] 12 mmol/L 9 - 18 mmol/L [facility] AST [Catalytic activity/Vol] 17 U/L 13 - 35 U/L [facility] Bilirubin [Mass/Vol] 0.4 mg/dL 0.2 - 1 .3 mg/dL [facility] Calcium [Mass/Vol] 9.8 mg/dL 8.5 - 10. 2 mg/dL [facility] Chloride [Moles/Vol] 103 mmol/L 97 - 10 5 mmol/L [facility] CO2 [Moles/Vol] 25 mmol/L 22 - 30 mmol/L [facility] Creatinine [Mass/Vol] 1.17 mg/dL High 0.58 - 0.96 mg/dL [facility] Estimated Glomerular Filtration Rate 48 mL/min/1.73m Low >=60 mL/min/1.73 m [facility] Glucose [Mass/Vol] 98 mg/dL 74 - 99 mg/dL [facility] Potassium [Moles/Vol] 4.4 mmol/L 3.7 - 5.1 mmol/L [facility] Protein [Mass/Vol] 7.3 g/dL 6.3 - 8.0 g/dL [facility] Sodium [Moles/Vol] 140 mmol/L 136 - 144 mmol/L [facility] Urea nitrogen [Mass/Vol] 16 mg/dL 7 - 21 mg/dL [facility] LIPASE BLDon 08-18-2023 Lipase [Catalytic activity/Vol] 48 U/L 16 - 61 U/L [facility] CBC W Auto Differential pane l (Bld)on 08-17-2023 Basophils (Bld) [#/Vol] 0.03 10*3/uL <0.11 k/uL [facility] Basophils/100 WBC (Bld) 0.4 % [facility] Differential cell count method Nom (Bld) Auto [facility] Eosinophils (Bld) [#/Vol] 0.03 10*3/uL <0.46 k/uL [facility] Eosinophils/100 WBC (Bld) 0.4 % [facility] Erythrocyte distribution width (RBC) [Ratio] 13.2 % 11.5 - 15.0 % [facility] Hematocrit (Bld) [Volume fraction] 45.7 % 36.0 - 46.0 % [facility] Hemoglobin (Bld) [Mass/Vol] 14.6 g/dL 11.5 - 15.5 g/dL [facility] Immature granulocytes (Bld) [#/Vol] <0.10 k/uL [facility] Immature granulocytes/100 WBC (Bld) 0.3 % [facility] Lymphocytes (Bld) [#/Vol] 1.72 10*3/uL 1.00 - 4.00 k/uL [facility] Lymphocytes/100 WBC (Bld) 24.7 % [facility] MCH (RBC) [Entitic mass] 28.7 pg 26.0 - 34.0 pg [facility] MCHC (RBC) [Mass/Vol] 31.9 g/dL 30.5 - 36.0 g/dL [facility] MCV (RBC) [Entitic vol] 89.8 fL 80.0 - 100.0 fL [facility] Monocytes (Bld) [#/Vol] 0.70 10*3/uL <0.87 k/uL [facility] Monocytes/100 WBC (Bld) 10.1 % [facility] Neutrophils (Bld) [#/Vol] 4.45 10*3/uL 1.45 - 7.50 k/uL [facility] Neutrophils/100 WBC (Bld) 64.1 % [facility] Nucleated RBC (Bld) [#/Vol] <0.01 k/uL [facility] Nucleated RBC/100 WBC (Bld) [Ratio] 0.0 /100 WBC [facility] Platelet mean volume (Bld) [Entitic vol] 10.9 fL 9.0 - 12.7 fL [facility] Platelets (Bld) [#/Vol] 210 10*3/uL 150 - 400 k/uL [facility] RBC (Bld) [#/Vol] 5.09 10*6/uL 3.90 - 5.2 0 m/uL [facility] WBC (Bld) [#/Vol] 6.95 10*3/uL 3.70 - 11.00 k/uL [facility] ESR Westergren method (Bld) [Velocity]on 08-17-2023 ESR (Bld) [Velocity] 31 mm/h High 0 - 20 mm/hr [facility] UA DIP, URINE (POC)on 2022 BILIRUBIN UA (POCT) Negative Negative [facility] CLARITY UA (POCT) Slightly Cloudy [facility] COLOR UA (POCT) Yellow [facility] GLUCOSE UA (POCT) Negative Negative mg/dL [facility] Hemoglobin Ql (U) Large Abnormal Negative [facility] KETONE UA (POCT) Negative Negative mg/dL [facility] LEUKOCYTES UA (POCT) Negative Negative [facility] NITRITE UA (POCT) Negative Negative [facility] PH UA (POCT) 7.5 4.5 - 8.0 [facility] Protein Ql (U) 100 mg/dL Abnormal Negative mg/dL [facility] SPECIFIC GRAVITY UA (POCT) 1.020 1.005 - 1.030 [facility] UROBILINOGEN UA (POCT) 0.2 E.U./dL Normal E.U./dL [facility] UA DIP, URINE (POC)on 2022 BILIRUBIN UA (POCT) Negative Negative [facility] CLARITY UA (POCT) Clear [facility] COLOR UA (POCT) Yellow [facility] GLUCOSE UA (POCT) Negative Negative mg/dL [facility] Hemoglobin Ql (U) Large Abnormal Negative [facility] KETONE UA (POCT) Negative Negative mg/dL [facility] LEUKOCYTES UA (POCT) Trace Abnormal Negative [facility] NITRITE UA (POCT) Negative [facility] UA (POCT) 6.5 4.5 - 8.0 [facility] Protein Ql (U) 30 mg/dL Abnormal Negative mg/dL [facility] SPECIFIC GRAVITY UA (POCT) 1.010 1.005 - 1.030 [facility] UROBILINOGEN UA (POCT) 0.2 E.U./dL Normal E.U./dL [facility] CT CHEST WO IVCONon 07-03-20 [facility] Basic metabolic 2000 panelon 06-17-2023 Anion gap [Moles/Vol] 11 mmol/L 9 - 18 mmol/L [facility] Calcium [Mass/Vol] 9.5 mg/dL 8.5 - 10. 2 mg/dL [facility] Chloride [Moles/Vol] 106 mmol/L High 97 - 10 5 mmol/L [facility] CO2 [Moles/Vol] 23 mmol/L 22 - 30 mmol/L [facility] Creatinine [Mass/Vol] 1.09 mg/dL High 0.58 - 0.96 mg/dL [facility] Estimated Glomerular Filtration Rate 53 mL/min/1.73m Low >=60 mL/min/1.73 m [facility] Glucose [Mass/Vol] 98 mg/dL 74 - 99 mg/dL [facility] Potassium [Moles/Vol] 4.5 mmol/L 3.7 - 5.1 mmol/L [facility] Sodium [Moles/Vol] 140 mmol/L 136 - 144 mmol/L [facility] Urea nitrogen [Mass/Vol] 15 mg/dL 7 - 21 mg/dL [facility] XR Chest PA and Lateralon IMPRESSION: Overall findings unchanged. Medical Clerk: MARTHA Transcribe Date/Time: Jun 10 2023 4:14P Dictated by : MISBAH LENTZ MD This examination was interpreted and the report reviewed and electronically signed by: MISBAH LENTZ MD on Jun 10 2023 4:16PM [facility] DIVISION OF RADIOLOGY * * *Final Report* * * DATE OF EXAM: Jun 08 2023 3:18PM WOX [id number] - XR CHEST 2V FRONTAL/LAT / PROCEDURE REASON: Left-sided chest pain * * * * Physician Interpretation * * * * EXAMINATION: CHEST RADIOGRAPH (2 VIEW FRONTAL & LATERAL) CLINICAL HISTORY: Left-sided chest pain MQ: XC2_6 EXAM DATE/TIME: 06/08/2023 3:18 PM COMPARISON: Chest x-ray on 08/28/2022 RESULT: Lines, tubes, and devices: None. Lungs and pleura: A few small linear opacities in the left lower lung unchanged. No consolidation. No lung mass. No pleural effusion. No pneumothorax. Stable blunting of the left lateral costophrenic angle. Cardiomediastinal silhouette: Normal cardiomediastinal silhouette. Bones and soft tissues: The spine shows interval changes. DIVISION OF RADIOLOGY Provider, Juanis Nation - 06/10/2023 * * *Final Report* * * DATE OF EXAM: Jun 08 2023 3:18PM WOX [id number] - XR CHEST 2V FRONTAL/LAT / PROCEDURE REASON: Left-sided chest pain * * * * Physician Interpretation * * * * EXAMINATION: CHEST RADIOGRAPH (2 VIEW FRONTAL & LATERAL) CLINICAL HISTORY: Left-sided chest pain MQ: XC2_6 EXAM DATE/TIME: 06/08/2023 3:18 PM COMPARISON: Chest x-ray on 08/28/2022 RESULT: Lines, tubes, and devices: None. Lungs and pleura: A few small linear opacities in the left lower lung unchanged. No consolidation. No lung mass. No pleural effusion. No pneumothorax. Stable blunting of the left lateral costophrenic angle. Cardiomediastinal silhouette: Normal cardiomediastinal silhouette. Bones and soft tissues: The spine shows interval changes. IMPRESSION IMPRESSION: Overall findings unchanged. Medical Clerk: MARTHA Transcribe Date/Time: Jun 10 2023 4:14P Dictated by : MISBAH LENTZ MD This examination was interpreted and the report reviewed and electronically signed by: MISBAH LENTZ MD on Jun 10 2023 4:16PM EST [facility] XR Chest PA and LateralOrder ed By: [facility] Provider on 06-10-2023 [facility] XR Chest PA and Lateralon Radiology Study observation (narrative) [facility] XR HIP GENERAL 3V PELV/AP/LA T RIGHTon 01-07-2023 [facility] Jay 10-24-2022 CNPN Telephone (AGSPINE3) SISSYTERRI ([id number]) 1945 [place]* Date Time Provider Department 10/24/22 DAISHA JUNIOR AGSPINE3 During your visit today, we recorded the following information about you: Don Borges 10/24/2022 8:54 AM Signed Sent in consult to physical therapy, confirmation number is [id number] Allergies As of Date: 10/24/2022 Noted Allergy Reaction cigarette smoke [Other] 03/16/2012 3 - Cough 9 - Itching 12 - Shortness of Breath ADHESIVE TAPE (ROSINS) 07/13/2014 9 - Itching ALEVE (NAPROXEN SODIUM) 10/21/2005 8 - GI Upset ATIVAN (LORAZEPAM) 08/06/2020 14 - Other: See Comments Comments: depression CATS 05/21/2010 LOPRESSOR (METOPROLOL TARTRATE) 09/03/2005 1 - Mental Status Change NICKEL 04/25/2014 2 - Rash NORVASC (AMLODIPINE BESYLATE) 01/08/2017 7 - Swelling Comments: Swelling to feet and ankles SULFA (SULFONAMIDE ANTIBIOTICS) 09/03/2005 Comments: severe headache VIOXX (ROFECOXIB) 09/03/2005 8 - GI Upset Date Reviewed: 10/23/2022 Reviewed by: Daisha Junior, TRINY.CIRCULAR RIPSAW OPERATOR - Fully Assessed Reason for Visit: Patient Update [1234] Cmt: Consult Prescriptions as of 10/24/2022 - traMADol (ULTRAM) 100 mg tablet Take 1 tablet by mouth every 6 hours as needed for pain for up to 60 days. - [id number] 0 1 mg-25 mg-12.5 mg-1 mg tab Take by mouth. - cyclobenzaprine (FLEXERIL) 5 mg tablet Take 1 tablet by mouth three times daily as needed. - cloNIDine HCl (CATAPRES) 0.1 mg tablet Take 1 tablet by mouth daily at bedtime. - losartan (COZAAR) 100 mg tablet Take 1 tablet by mouth once daily. - potassium chloride ER (K-DUR, KLOR-CON) 20 mEq tablet Take 1 tablet by mouth twice daily. - hydroCHLOROthiazide (HYDRODIURIL, ESIDRIX) 12.5 mg capsule Take 1 capsule by mouth once daily. - Vitamin E 1 mg, Vitamin A 1 mg, Collagen Support Vaginal Cream (CPD) Apply 1 g to affected area three times a week. - pyridoxine, vitamin B6, (VITAMIN B6) 100 mg tablet Take 100 mg by mouth once daily. - Magnesium 200 mg tab Take 1 tablet by mouth once daily. - Garlic 100 mg tab Take 1 tablet by mouth once daily. - Zinc 50 mg tab Take by mouth. Calcium magnesium - esomeprazole (NEXIUM) 20 mg capsule Take 1 capsule by mouth DAILY (6 AM). - BIOTIN ORAL Take by mouth. - diphenhydrAMINE HCl 12.5 mg chewable tablet Take 12.5 mg by mouth at bedtime as needed. - Cholecalciferol, Vitamin D3, 25 mcg (1,000 unit) cap Take 1,000 Units by mouth once daily. Problem List As Of Date 10/24/2022 Noted Resolved BENIGN HYPERTENSION [I10] 10/15/2006 03/10/2008 LIPOMA NOS [D17.9] 04/23/2007 PERIPHERAL VERTIGO NOS [H81.399] 02/24/2008 Nonallopathic lesion of rib cage, not elsewhere*02/24/2008 02/12/2017 Essential hypertension with goal blood pressure*03/10/2008 Otalgia, unspecified [H92.09] 03/10/2008 02/12/2017 Hypopotassemia [E87.6] 03/10/2008 02/12/2017 Esophageal reflux [K21.9] ESOPHAGITIS, UNSPECIFIED [K20.90] 10/16/2008 03/16/2009 Sciatica [M54.30] 12/15/2008 02/12/2017 Mixed hyperlipidemia [E78.2] 03/16/2009 Depression [F32.A] 12/01/2009 Nocturnal Muscle Cramps [R25.2] 12/01/2009 Fatigue [R53.83] 05/21/2010 12/15/2018 Obesity [E66.9] 09/21/2010 Osteopenia [M85.80] History of colon polyps [Z86.010] 01/11/2016 Gastroesophageal reflux disease [K21.9] 01/11/2016 07/11/2020 Dry eye syndrome [H04.129] 05/05/2016 Nuclear sclerosis of both eyes [H25.13] 05/05/2016 Blepharitis of both upper and lower eyelid of r*07/02/2016 Prediabetes [R73.03] 12/03/2015 Chronic progressive renal failure, stage 3 (mod*12/04/2016 12/15/2018 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] 12/04/2016 Combined forms of age-related cataract of both *06/30/2017 Vitreous floaters of both eyes [H43.393] 06/30/2017 Stage 3b chronic kidney disease (HCC) [N18.32] 07/30/2017 Meibomian gland dysfunction (MGD) of upper and *03/24/2018 Punctate keratitis, 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] 03/24/2018 FRIEDA (obstructive sleep apnea) [G47.33] 02/01/2020 Nodule of left lung [R91.1] 08/22/2020 Gallstones [K80.20] 08/22/2020 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] 11/12/2020 Pneumothorax of left lung after biopsy [J95.811]12/28/2020 Obesity, Class II, BMI 35-39.9 [E66.9] 12/28/2020 Atrial tachycardia (HCC) [I47.1] 01/14/2021 Mitral valve disease [I05.9] 01/14/2021 Lung nodule [R91.1] 07/30/2021 Acute post-operative pain [G89.18] 03/10/2008 Discharge planning issues [Z02.9] 03/10/2008 08/16/2021 Anxiety [F41.9] 03/10/2008 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 CNOVon 10-23-2022 CNOV Office Visit (SPAGWO ) TERRI BURCIAGA ([id number]) 1945 Abhijeet Cardona* Date Time Provider Department 10/23/22 2:00 PM JACQUELYN DAISHA M SPAGWO During your visit today, we recorded the following information about you: Pulse Respiration Normal [facility] UA DIP, URINE (POC)on 2021 BILIRUBIN UA (POCT) Negative Negative [facility] CLARITY UA (POCT) [facility] COLOR UA (POCT) Yellow [facility] GLUCOSE UA (POCT) Negative Negative mg/dL [facility] HEMOGLOBIN/BLOOD UA (POCT) Moderate Abnormal Negative [facility] KETONE UA (POCT) Negative Negative mg/dL [facility] LEUKOCYTES UA (POCT) Negative Negative [facility] NITRITE UA (POCT) Negative Negative [facility] PH UA (POCT) 7.0 4.5 - 8.0 [facility] Protein Ql (U) Negative Negative mg/dL [facility] SPECIFIC GRAVITY UA (POCT) 1.020 1.005 - 1.030 [facility] UROBILINOGEN UA (POCT) 0.2 E.U./dL Normal E.U./dL [facility] URINE CULTUREon 09-10-2022 Bacteria identified Cx Nom (U) 10,000 -<50,000 CFU/ml Normal urogenital rolando [facility] Urinalysis complete panel (U )on 09-10-2022 Bilirubin Ql (U) Negative Negative [facility] Clarity (Unsp spec) Clear [facility] Color (U) Colorless Yellow [facility] Glucose Test strip (U) [Mass/Vol] Negative Negative [facility] Hemoglobin Ql (U) 2+ Abnormal Negative [facility] Ketones Ql (U) Negative Negative [facility] Leukocyte esterase Test strip Ql (U) Negative Negative [facility] Nitrite Ql (U) Negative Negative [facility] pH (U) 6.5 [pH] 5.0 - 8.0 [facility] Protein (U) [Mass/Vol] Negative Negative [facility] RBC LM.HPF (Urine sed) [#/Area] 0-3 /HPF 0-3 /HPF [facility] Specific gravity (U) [Rel density] 1.005 1.005 - 1.030 [facility] Urobilinogen Ql (U) Negative Negative [facility] WBC LM.HPF (Urine sed) [#/Area] 0-5 /HPF 0-5 /HPF [facility] MRI LUMBAR SPINE WO IVCONon 09-05-2022 [facility] UA DIP, URINE (POC)on 2021 BILIRUBIN UA (POCT) Moderate Abnormal Negative [facility] CLARITY UA (POCT) Clear [facility] COLOR UA (POCT) Yellow [facility] GLUCOSE UA (POCT) Negative Negative mg/dL [facility] HEMOGLOBIN/BLOOD UA (POCT) Large Abnormal Negative [facility] KETONE UA (POCT) 15 mg/dL Abnormal Negative mg/dL [facility] LEUKOCYTES UA (POCT) Negative Negative [facility] NITRITE UA (POCT) Negative Negative [facility] PH UA (POCT) 6.0 4.5 - 8.0 [facility] Protein Ql (U) 100 mg/dL Abnormal Negative mg/dL [facility] SPECIFIC GRAVITY UA (POCT) >=1.030 1.005 - 1.030 [facility] UROBILINOGEN UA (POCT) 0.2 E.U./dL Normal E.U./dL [facility] XR CHEST 2V FRONTAL/LATon [facility] XR LUMBAR GENERAL 3V AP/LAT/ L5-S1on 08-26-2022 [facility] US PELVIS BLADDERon 08-15-20 [facility] UA DIP, URINE (POC)on 2021 BILIRUBIN UA (POCT) Negative Negative [facility] CLARITY UA (POCT) Clear [facility] COLOR UA (POCT) Yellow [facility] GLUCOSE UA (POCT) Negative Negative mg/dL [facility] HEMOGLOBIN/BLOOD UA (POCT) Moderate Abnormal Negative [facility] KETONE UA (POCT) Negative Negative mg/dL [facility] LEUKOCYTES UA (POCT) Negative Negative [facility] NITRITE UA (POCT) Negative Negative [facility] PH UA (POCT) 7.0 4.5 - 8.0 [facility] Protein Ql (U) Negative Negative mg/dL [facility] SPECIFIC GRAVITY UA (POCT) 1.010 1.005 - 1.030 [facility] UROBILINOGEN UA (POCT) 0.2 E.U./dL Normal E.U./dL [facility] No Panel Informationon 07-07 IMPRESSION: Radiographic findings suggest degenerative osteoarthritis, left greater than right. Medical Clerk: MARTHA Transcribe Date/Time: Jul 07 2022 4:24P Dictated by : DILLAN MENDES MD This examination was interpreted and the report reviewed and electronically signed by: DILLAN MENDES MD on Jul 07 2022 4:26PM [facility] DIVISION OF RADIOLOGY Radiology Study observation (narrative) [facility] No Panel InformationOrdered By: [facility] Provider on 07-07-2022 [facility] XR Finger - left AP and Late ral and obliqueon 07-07-2022 * * *Final Report* * * DATE OF EXAM: Jul 07 2022 2:20PM WOX [id number] - XR DIGIT 3V FRONTAL/LAT/OBL LT / PROCEDURE REASON: Arthritis of carpometacarpal (CMC) joint of both thumbs * * * * Physician Interpretation * * * * EXAMINATION: XR DIGIT 3V FRONTAL/LAT/OBL LT, XR DIGIT 3V FRONTAL/LAT/OBL RT HISTORY: Pain in both thumbs for years with left being worse. Arthritis of carpometacarpal (CMC) joint of both thumbs. Negative trauma TECHNIQUE: XR DIGIT 3V FRONTAL/LAT/OBL LT, XR DIGIT 3V FRONTAL/LAT/OBL RT Laterality: LEFT (accession [id number]), RIGHT (accession [id number]) Number of different views (projections): 3 M: XB_1 COMPARISON: There are no prior relevant examinations available for comparison within the [facility] Imaging Archives. RESULT: AP, oblique and lateral radiographs of the bilateral thumbs show no acute osseous, articular or soft tissue process. There is asymmetric joint space narrowing with marginal spurring on subchondral cyst formation involving the first metacarpal carpal articulations bilaterally, moderate on the right and severe on the left. There is mild narrowing of the triscaphe joint on the right. No erosive component. DIVISION OF RADIOLOGY Provider, [facility] - 07/07/2022 * * *Final Report* * * DATE OF EXAM: Jul 07 2022 2:20PM WOX [id number] - XR DIGIT 3V FRONTAL/LAT/OBL LT / PROCEDURE REASON: Arthritis of carpometacarpal (CMC) joint of both thumbs * * * * Physician Interpretation * * * * EXAMINATION: XR DIGIT 3V FRONTAL/LAT/OBL LT, XR DIGIT 3V FRONTAL/LAT/OBL RT HISTORY: Pain in both thumbs for years with left being worse. Arthritis of carpometacarpal (CMC) joint of both thumbs. Negative trauma TECHNIQUE: XR DIGIT 3V FRONTAL/LAT/OBL LT, XR DIGIT 3V FRONTAL/LAT/OBL RT Laterality: LEFT (accession [id number]), RIGHT (accession [id number]) Number of different views (projections): 3 M: XB_1 COMPARISON: There are no prior relevant examinations available for comparison within the [facility] Imaging Archives. RESULT: AP, oblique and lateral radiographs of the bilateral thumbs show no acute osseous, articular or soft tissue process. There is asymmetric joint space narrowing with marginal spurring on subchondral cyst formation involving the first metacarpal carpal articulations bilaterally, moderate on the right and severe on the left. There is mild narrowing of the triscaphe joint on the right. No erosive component. IMPRESSION IMPRESSION: Radiographic findings suggest degenerative osteoarthritis, left greater than right. Medical Clerk: [facility] Transcribe Date/Time: Jul 07 2022 4:24P Dictated by : DILLAN MENDES MD This examination was interpreted and the report reviewed and electronically signed by: DILLAN MENDES MD on Jul 07 2022 4:26PM [facility] XR Finger - right AP and Lat eral and obliqueon 07-07-2022 * * *Final Report* * * DATE OF EXAM: Jul 07 2022 2:20PM WOX 5319 - XR DIGIT 3V FRONTAL/LAT/OBL RT / PROCEDURE REASON: Arthritis of carpometacarpal (CMC) joint of both thumbs * * * * Physician Interpretation * * * * EXAMINATION: XR DIGIT 3V FRONTAL/LAT/OBL LT, XR DIGIT 3V FRONTAL/LAT/OBL RT HISTORY: Pain in both thumbs for years with left being worse. Arthritis of carpometacarpal (CMC) joint of both thumbs. Negative trauma TECHNIQUE: XR DIGIT 3V FRONTAL/LAT/OBL LT, XR DIGIT 3V FRONTAL/LAT/OBL RT Laterality: LEFT (accession [id number]), RIGHT (accession [id number]) Number of different views (projections): 3 M: XB_1 COMPARISON: There are no prior relevant examinations available for comparison within the [facility] Imaging Archives. RESULT: AP, oblique and lateral radiographs of the bilateral thumbs show no acute osseous, articular or soft tissue process. There is asymmetric joint space narrowing with marginal spurring on subchondral cyst formation involving the first metacarpal carpal articulations bilaterally, moderate on the right and severe on the left. There is mild narrowing of the triscaphe joint on the right. No erosive component. DIVISION OF RADIOLOGY Provider, [facility] - 07/07/2022 * * *Final Report* * * DATE OF EXAM: Jul 07 2022 2:20PM WOX 5319 - XR DIGIT 3V FRONTAL/LAT/OBL RT / PROCEDURE REASON: Arthritis of carpometacarpal (CMC) joint of both thumbs * * * * Physician Interpretation * * * * EXAMINATION: XR DIGIT 3V FRONTAL/LAT/OBL LT, XR DIGIT 3V FRONTAL/LAT/OBL RT HISTORY: Pain in both thumbs for years with left being worse. Arthritis of carpometacarpal (CMC) joint of both thumbs. Negative trauma TECHNIQUE: XR DIGIT 3V FRONTAL/LAT/OBL LT, XR DIGIT 3V FRONTAL/LAT/OBL RT Laterality: LEFT (accession [id number]), RIGHT (accession [id number]) Number of different views (projections): 3 M: XB_1 COMPARISON: There are no prior relevant examinations available for comparison within the [facility] Imaging Archives. RESULT: AP, oblique and lateral radiographs of the bilateral thumbs show no acute osseous, articular or soft tissue process. There is asymmetric joint space narrowing with marginal spurring on subchondral cyst formation involving the first metacarpal carpal articulations bilaterally, moderate on the right and severe on the left. There is mild narrowing of the triscaphe joint on the right. No erosive component. IMPRESSION IMPRESSION: Radiographic findings suggest degenerative osteoarthritis, left greater than right. Medical Clerk: [facility] Transcribe Date/Time: Jul 07 2022 4:24P Dictated by : DILLAN MENDES MD This examination was interpreted and the report reviewed and electronically signed by: DILLAN MENDES MD on Jul 07 2022 4:26PM EST [facility] ESR Westergren method (Bld) [Velocity]on 07-02-2022 ESR (Bld) [Velocity] 41 mm/h High 0 - 20 mm/hr [facility] US KIDNEY/BLADDERon 05-01-20 [facility] UA DIP, URINE (POC)on 2021 BILIRUBIN UA (POCT) Negative Negative [facility] CLARITY UA (POCT) Clear [facility] COLOR UA (POCT) Yellow [facility] GLUCOSE UA (POCT) Negative Negative mg/dL [facility] HEMOGLOBIN/BLOOD UA (POCT) Negative Negative [facility] KETONE UA (POCT) Negative Negative mg/dL [facility] LEUKOCYTES UA (POCT) Negative Negative [facility] NITRITE UA (POCT) Negative Negative [facility] PH UA (POCT) 6.5 4.5 - 8.0 [facility] Protein Ql (U) Negative Negative mg/dL [facility] SPECIFIC GRAVITY UA (POCT) 1.010 1.005 - 1.030 [facility] UROBILINOGEN UA (POCT) 0.2 E.U./dL Normal E.U./dL [facility] XR CHEST 2V FRONTAL/LATon [facility] XR Chest PA and Lateralon IMPRESSION: Stable scarring in the left lung base Stable blunting left costophrenic angle due to pleural fluid or pleural thickening. Medical Clerk: [facility] Transcribe Date/Time: Oct 16 2021 5:36P Dictated by : BRIANNA HAAS MD This examination was interpreted and the report reviewed and electronically signed by: BRIANNA HAAS MD on Oct 16 2021 5:38PM [facility] DIVISION OF RADIOLOGY * * *Final Report* * * DATE OF EXAM: Oct 16 2021 5:10PM WOX 5291 - XR CHEST 2V FRONTAL/LAT / PROCEDURE REASON: Chest pain, unspecified type * * * * Physician Interpretation * * * * EXAMINATION: CHEST RADIOGRAPH (2 VIEW FRONTAL & LATERAL) CLINICAL HISTORY: Chest pain, unspecified type MQ: XC2_6 EXAM DATE/TIME: 10/16/2021 5:10 PM COMPARISON: 08/12/2021 and additional prior exams RESULT: Lines, tubes, and devices: None. Lungs and pleura: Probable scarring in the peripheral aspect of the left lung base. Blunting of the left costophrenic angle, unchanged. Right lung is clear. No confluent infiltrate or pneumothorax. Cardiomediastinal silhouette: Normal cardiomediastinal silhouette. Bones and soft tissues: Endplate osteophytes at multiple levels in the thoracic spine. DIVISION OF RADIOLOGY Provider, [facility] - 10/16/2021 * * *Final Report* * * DATE OF EXAM: Oct 16 2021 5:10PM WOX 5291 - XR CHEST 2V FRONTAL/LAT / PROCEDURE REASON: Chest pain, unspecified type * * * * Physician Interpretation * * * * EXAMINATION: CHEST RADIOGRAPH (2 VIEW FRONTAL & LATERAL) CLINICAL HISTORY: Chest pain, unspecified type MQ: XC2_6 EXAM DATE/TIME: 10/16/2021 5:10 PM COMPARISON: 08/12/2021 and additional prior exams RESULT: Lines, tubes, and devices: None. Lungs and pleura: Probable scarring in the peripheral aspect of the left lung base. Blunting of the left costophrenic angle, unchanged. Right lung is clear. No confluent infiltrate or pneumothorax. Cardiomediastinal silhouette: Normal cardiomediastinal silhouette. Bones and soft tissues: Endplate osteophytes at multiple levels in the thoracic spine. IMPRESSION IMPRESSION: Stable scarring in the left lung base Stable blunting left costophrenic angle due to pleural fluid or pleural thickening. Medical Clerk: [facility] Transcribe Date/Time: Oct 16 2021 5:36P Dictated by : BRIANNA HAAS MD This examination was interpreted and the report reviewed and electronically signed by: BRIANNA HAAS MD on Oct 16 2021 5:38PM EST [facility] Radiology Study observation (narrative) [facility] XR Chest PA and LateralOrder ed By: Cc Provider on 10-16-2021 [facility] XR Chest Single viewon 01-09 IMPRESSION: Minimal persistent basal atelectasis on the left. No persistent pneumothorax Medical Clerk: [facility] Transcribe Date/Time: Jan 09 2021 2:12P Dictated by : LOGAN KIRBY MD This examination was interpreted and the report reviewed and electronically signed by: LOGAN KIRBY MD on Jan 09 2021 2:13PM [facility] DIVISION OF RADIOLOGY * * *Final Report* * * DATE OF EXAM: Jan 09 2021 2:06PM WOX 5290 - XR CHEST 1V FRONTAL / PROCEDURE REASON: Postprocedural pneumothorax * * * * Physician Interpretation * * * * EXAMINATION: CHEST RADIOGRAPH (SINGLE VIEW AP OR PA) CLINICAL HISTORY: Postprocedural pneumothorax MQ: XC1_5 Comparison: 01/01/2021 RESULT: Lines, tubes, and devices: None. Lungs and pleura: No consolidation. No lung mass. No pleural effusion. Minimal persistent basal atelectasis on the left. No evidence of persistent pneumothorax. Cardiomediastinal silhouette: Normal cardiomediastinal silhouette. DIVISION OF RADIOLOGY Provider, [facility] - 01/09/2021 * * *Final Report* * * DATE OF EXAM: Jan 09 2021 2:06PM WOX 5290 - XR CHEST 1V FRONTAL / PROCEDURE REASON: Postprocedural pneumothorax * * * * Physician Interpretation * * * * EXAMINATION: CHEST RADIOGRAPH (SINGLE VIEW AP OR PA) CLINICAL HISTORY: Postprocedural pneumothorax MQ: XC1_5 Comparison: 01/01/2021 RESULT: Lines, tubes, and devices: None. Lungs and pleura: No consolidation. No lung mass. No pleural effusion. Minimal persistent basal atelectasis on the left. No evidence of persistent pneumothorax. Cardiomediastinal silhouette: Normal cardiomediastinal silhouette. IMPRESSION IMPRESSION: Minimal persistent basal atelectasis on the left. No persistent pneumothorax Medical Clerk: [facility] Transcribe Date/Time: Jan 09 2021 2:12P Dictated by : LOGAN KIRBY MD This examination was interpreted and the report reviewed and electronically signed by: LOGAN KIRBY MD on Jan 09 2021 2:13PM [facility] Radiology Study observation (narrative) [facility] XR Chest Single viewOrdered By: Ccf Provider on 01-09-2021 [facility] Basic Metabolic Panlon 01-02 Anion gap [Moles/Vol] 8 mmol/L Low 9-18 [facility] Comment on above: Performed By: #### C BC, BMP ####[facility] [address] [place] [address] Calcium [Mass/Vol] 9.6 mg/dL Normal 8.5-10.2 [facility] Comment on above: Performed By: #### C ANGELA, BMP ####[facility] [address] [place] [address] Chloride [Moles/Vol] 101 mmol/L Normal 97-105 [facility] Comment on above: Performed By: #### C ANGELA, BMP ####[facility] [address] [place] [address] CO2 [Moles/Vol] 29 mmol/L Normal 22-30 [facility] Comment on above: Performed By: #### Joni MILLER, BMP ####[facility] [address] [place] [address] Creatinine [Mass/Vol] 1.00 mg/dL High 0.58-0.96 [facility] Comment on above: Performed By: #### Joni MILLER, BMP ####[facility] [address] [place] [address] eGFR- Amer. >60 Normal [facility] Comment on above: Performed By: #### Joni MILLER, BMP ####[facility] [address] [place] [address] GFR/1.73 sq M predicted among non-blacks MDRD (S/P/Bld) [Vol rate/Area] 54 . Normal [facility] Comment on above: Result Comment: eGFR (Estimated GFR) Units of [...] accurately reflect actual GFR. Performed By: #### C BC, BMP ####[facility] [address] [place] [address] Glucose [Mass/Vol] 98 mg/dL Normal 74-99 [facility] Comment on above: Result Comment: The [place] [employer] (ADA) provides guidance for cutoff values for fasting glucose and random glucose. The ADA defines fasting as no caloric intake for at least 8 hours. Fasting plasma glucose results between 100 to 125 [...] Standards of Medical Care in Diabetes 2016, [place] [employer]. Diabetes Care. 2016.39(Suppl 1). Performed By: #### C BC, BMP ####[facility] [address] [place] [address] Potassium [Moles/Vol] 4.6 mmol/L Normal 3.7-5.1 [facility] Comment on above: Performed By: #### C BC, BMP ####[facility] [address] [place] [address] Sodium [Moles/Vol] 138 mmol/L Normal 136-144 [facility] Comment on above: Performed By: #### C BC, BMP ####[facility] [address] [place] [phone] Urea nitrogen [Mass/Vol] 20 mg/dL Normal 7-21 [facility] Comment on above: Performed By: #### C BC, BMP ####[facility] [address]sd[address] CASE MANAGEMon 01-02-2021 CASE MANAGEM HNO ID: [id number] Author: Jaye Madrid (Sw) Service: Care Management Author Type: First Aid Teacher Type: Care Mgt Progress Note Filed: 01/02/2021 4:30 PM Note Text: CARE MANAGEMENT DISCHARGE NOTE SERVICE DATE: 01/02/2021 SERVICE TIME: 4:30PM LOS: 2 days Admission Date: 12/28/2020 DISCHARGE ARRANGEMENT (list agency and phone number) Discharge Arrangement: Home Provider Name: Phone: CAREGIVER ASSESSMENT: HANDOFF COMMUNICATION: Handoff to: Primary Care Physician Primary Care Physician Name/Phone: Andre Santana TRANSPORTATION ARRANGEMENTS: Transportation Arrangements: Car ADDITIONAL CONTACT RESOURCES: SIGNATURE: RAVEN Schultz PATIENT NAME: Terri Burciaga DATE: January 02, 2021 TIME: 4:30 PM PAGER/CONTACT #: [phone] Normal [facility] CBCon 01-02-2021 Absolute nRBC <0.01 Normal <0.01 [facility] Comment on above: Performed By: #### C BC, BMP ####[facility] [address] [place], [place] [phone] Erythrocyte distribution width (RBC) [Ratio] 14.0 % Normal 11.5-15.0 [facility] Comment on above: Performed By: #### C BC, BMP ####[facility] [address] [place], [place] [phone] Hematocrit (Bld) [Volume fraction] 41.1 % Normal 36.0-46.0 [facility] Comment on above: Performed By: #### C BC, BMP ####[facility] Spqtuvbdxc7185 [address] Hemoglobin (Bld) [Mass/Vol] 12.7 g/dL Normal 11.5-15.5 [facility] Comment on above: Performed By: #### C BC, BMP ####[facility] K[address]woonsf6079 [address] MCH (RBC) [Entitic mass] 27.8 pG Normal 26.0-34.0 [facility] Comment on above: Performed By: #### C BC, BMP ####[facility] P[address]amqngnk4706 [address] MCHC (RBC) [Mass/Vol] 30.9 g/dL Normal 30.5-36.0 [facility] Comment on above: Performed By: #### C BC, BMP ####[facility] Ac[address]h1857 [address] MCV (RBC) [Entitic vol] 89.9 fL Normal 80.0-100.0 [facility] Comment on above: Performed By: #### C BC, BMP ####[facility] [address] [place] [address] Platelet mean volume (Bld) [Entitic vol] 10.6 fL Normal 9.0-12.7 [facility] Comment on above: Performed By: #### C ANGELA, BMP ####[facility] [address] [place] [address] Platelets (Bld) [#/Vol] 187 10*3/uL Normal 150-400 [facility] Comment on above: Performed By: #### C ANGELA, BMP ####[facility] [address] [place] [phone] RBC (Bld) [#/Vol] 4.57 10*6/uL Normal 3.90-5.20 [facility] Comment on above: Performed By: #### C ANGELA, BMP ####[facility] [address] [place] [phone] WBC (Bld) [#/Vol] 5.29 10*3/uL Normal 3.70-11.00 [facility] Comment on above: Performed By: #### Joni MILLER, BMP ####[facility] [address] [place] [address] NURSING PROGon 01-02-2021 NURSING PROG HNO ID: [id number] Author: Yvonne (Rn) NYLA Parr Service: ? Author Type: Registered Nurse Type: Nursing Progress Note Filed: 01/02/2021 5:04 PM Note Text: Nursing Progress Note Patient Name: Terri Burciaga Patient Location: [id number] Daily Note: 1700: Patient discharged in stable condition. Left floor via wheelchair w/family. Discharge paperwork and all personal belongings w/patient. This note was completed by: Yvonne Parr RN [facility] PLAN OF CAREon 01-02-2021 PLAN OF CARE HNO ID: [id number] Author: Lexie Hoffman ([employer]) Service: Pharmacy Author Type: ? Type: Plan of Care Filed: 01/02/2021 4:51 PM Note Text: PHARMACY BEDSIDE DELIVERY SERVICE Patient Name: Terri Burciaga The marked outpatient medications were Filled at: [place] and delivered to the patient's bedside to [facility] Medication List START taking these medications HYDROcodone-acetaminophen 5-325 mg per tablet Commonly known as: NORCO Take 1 tablet by mouth every 6 hours as needed for up to 7 days. X CHANGE how you take these medications niacin 50 mg tablet Commonly known as: NIACIN Take 1 tablet by mouth daily with breakfast. Take with a baby Aspirin to avoid flushing What changed: additional instructions CONTINUE taking these medications BIOTIN ORAL CHILDREN'S BENADRYL ALLERGY 12.5 mg chewable tablet Generic drug: diphenhydrAMINE HCl cloNIDine HCl 0.1 mg tablet Commonly known as: CATAPRES Take 1 tablet by mouth daily at bedtime. COMPOUNDED PRESCRIPTION Speed ankle brace (with wrap around ties) S93.402A Sprain of ligament of left ankle, initial encounter M79.672 Pain of left heel diazePAM 2 mg tablet Commonly known as: VALIUM esomeprazole 20 mg capsule Commonly known as: NexIUM Take 1 capsule by mouth DAILY (6 AM). Garlic 100 mg Tab hydroCHLOROthiazide 12.5 mg capsule Take 1 capsule by mouth once daily. losartan 100 mg tablet Commonly known as: COZAAR Take 1 tablet by mouth once daily. Magnesium 200 mg Tab potassium chloride ER 20 mEq tablet Commonly known as: K-DUR, KLOR-CON Take 1 tablet by mouth twice daily. VITAMIN B-6 100 mg tablet Generic drug: pyridoxine (vitamin B6) Vitamin D 25 mcg (1,000 unit) Cap Generic drug: Cholecalciferol (Vitamin D3) Zinc 50 mg Tab You might also be taking other medications not listed above. If you have questions about any of your other medications, talk to the person who prescribed them or your Primary Care Provider. Lexie Hoffman ([employer]) PAGER: [phone] January 02, 2021 4:51 PM [facility] ALLIED HEALTH 01-01-2021 ALLIED HEALTH HNO ID: [id number] Author: HARMONY Landers (Ct) Service: ? Author Type: Clinical Costume Shop Coordinator Type: Allied Health Filed: 01/01/2021 5:40 AM Note Text: Radiology Service Progress Note PATIENT NAME: Terri Burciaga DATE OF SERVICE: January 01, 2021 TIME: 5:40 AM PATIENT IDENTITY VERIFICATION COMPLETED USING TWO (2) IDENTIFIERS: Name and Date of confirmed by patient verbally. FALL SCREENING: Has the patient had 2 falls in the last year or 1 fall with injury or currently using an Ambulatory Assistive Device (Walker, Cane, Wheelchair, Crutches, etc.)? Inpatient: Screened on floor PATIENT GENDER DATA: Female. status: : No status: N/A PATIENT RELEVANT IMPLANT DATA REVIEWED: Not Applicable RADIOLOGY DEPARTMENT: General X-ray: Exam(s) Completed: Chest X-Ray PERIPHERAL IV DATA: Not applicable SIGNED BY: HARMONY Landers January 01, 2021 5:40 AM Normal [facility] Basic Metabolic Panlon 01-01 Anion gap [Moles/Vol] 9 mmol/L Normal 9-18 [facility] Comment on above: Performed By: #### C BC, BMP ####[facility] [address] [place] [address] Calcium [Mass/Vol] 9.0 mg/dL Normal 8.5-10.2 [facility] Comment on above: Performed By: #### C BC, BMP ####[facility] [address] [place] [address] Chloride [Moles/Vol] 102 mmol/L Normal 97-105 [facility] Comment on above: Performed By: #### C BC, BMP ####[facility] [address] [place] [address] CO2 [Moles/Vol] 29 mmol/L Normal 22-30 [facility] Comment on above: Performed By: #### C BC, BMP ####[facility] [address] [place] [address] Creatinine [Mass/Vol] 0.98 mg/dL High 0.58-0.96 [facility] Comment on above: Performed By: #### C BC, BMP ####[facility] [address] [place] [address] eGFR- Amer. >60 Normal [facility] Comment on above: Performed By: #### C , BMP ####[facility] [address]yt[address]rufi6[phone] GFR/1.73 sq M predicted among non-blacks MDRD (S/P/Bld) [Vol rate/Area] 55 . Normal [facility] Comment on above: Result Comment: eGFR (Estimated GFR) Units of measure: mL/min/1.73 meters squared eGFR is derived from the reexpressed MDRD Study equation using the following parameters: serum creatinine, age, gender and race. The creatinine assay has been calibrated to be traceable to [employer]. An eGFR <60 mL/min/1.73m2 for >3 months is consistent with chronic kidney disease. Refer to KDOQI guidelines for clinical interpretation. In patients with unstable renal function, e.g. those with acute kidney injury, the eGFR may not accurately reflect actual GFR. Performed By: #### C , BMP ####[facility] [address]fo3938 [phone] Glucose [Mass/Vol] 108 mg/dL High 74-99 [facility] Comment on above: Result Comment: The [place] Diabetes [employer] (ADA) provides guidance for cutoff values for fasting glucose and random glucose. The ADA defines fasting as no caloric intake for at least 8 hours. Fasting plasma glucose results between 100 to 125 [...] Standards of Medical Care in Diabetes 2016, [place] [employer]. Diabetes Care. 2016.39(Suppl 1). Performed By: #### C BC, BMP ####[facility] Pbduwqgsjr2873 [phone] Potassium [Moles/Vol] 4.4 mmol/L Normal 3.7-5.1 [facility] Comment on above: Performed By: #### C BC, BMP ####[facility] Y[address]egct3555 [phone] Sodium [Moles/Vol] 140 mmol/L Normal 136-144 [facility] Comment on above: Performed By: #### C ANGELA, BMP ####[facility] [address] [place] [address] Urea nitrogen [Mass/Vol] 24 mg/dL High - [facility] Comment on above: Performed By: #### C BC, BMP ####[facility] [address] [place] [address] CBCon 01-01-2021 Absolute nRBC <0.01 Normal <0.01 [facility] Comment on above: Performed By: #### C ANGELA, BMP ####[facility] [address] [place] [address] Erythrocyte distribution width (RBC) [Ratio] 14.0 % Normal 11.5-15.0 [facility] Comment on above: Performed By: #### C ANGELA, BMP ####[place] [address] Hematocrit (Bld) [Volume fraction] 40.9 % Normal 36.0-46.0 [facility] Comment on above: Performed By: #### C ANGELA, BMP ####[place] [address] Hemoglobin (Bld) [Mass/Vol] 12.7 g/dL Normal 11.5-15.5 [facility] Comment on above: Performed By: #### C ANGELA, BMP ####[place] [address] MCH (RBC) [Entitic mass] 28.0 pG Normal 26.0-34.0 [facility] Comment on above: Performed By: #### C ANGELA, BMP ####[facility] [address] [place] [address] MCHC (RBC) [Mass/Vol] 31.1 g/dL Normal 30.5-36.0 [facility] Comment on above: Performed By: #### C BC, BMP ####[facility] [address] [place] [address] MCV (RBC) [Entitic vol] 90.1 fL Normal 80.0-100.0 [facility] Comment on above: Performed By: #### C ANGELA, BMP ####[facility] [address] [place], [place] [phone] Platelet mean volume (Bld) [Entitic vol] 10.7 fL Normal 9.0-12.7 [facility] Comment on above: Performed By: #### C ANGELA, BMP ####[facility] Oit[address]uxv8253 [phone] Platelets (Bld) [#/Vol] 172 10*3/uL Normal 150-400 [facility] Comment on above: Performed By: #### Joni MILLER, BMP ####[facility] [address] [place] [phone] RBC (Bld) [#/Vol] 4.54 10*6/uL Normal 3.90-5.20 [facility] Comment on above: Performed By: #### C ANGELA, BMP ####[facility] [address] [place] [phone] WBC (Bld) [#/Vol] 5.63 10*3/uL Normal 3.70-11.00 [facility] Comment on above: Performed By: #### Joni MILLER, BMP ####[facility] [address]of[address]86 [phone] CONSULT PROGon 01-01-2021 CONSULT PROG HNO ID: [id number] Author: Jacquie Evans Service: Pulmonary Disease Author Type: Physician Type: Consult Progress Note Filed: 01/01/2021 2:33 PM Note Text: [facility] PULMONARY MEDICINE IN-PATIENT CONSULT PROGRESS NOTE SERVICE DATE: 01/01/2021 ASSESSMENT/RECOMMENDATIONS: 1. Iatrogenic pneumothorax 2. Lung nodule CXR shows persistent but unchanged small PTX. Will likely take weeks for PTX to reabsorb. Unfortunately, biopsy of lung nodule was not diagnostic. Okay for discharge. Will follow CXR as outpatient. Patient educated on symptoms of worsening pneumothorax and when to return to hospital. Plan discussed in detail with patient, RN and primary attending. Patient verbalizes understanding and is in agreement with the current management plan. Total time spent in patient care includes but is not limited to patient/ family discussions, collaborative discussions with other healthcare providers, review of medical records, review of laboratory tests, radiology images/ results, microbiology and pathology data. Jacquie Evans MD Staff, Respiratory [place] [facility] Pager #[phone] SUBJECTIVE CHIEF COMPLAINT: pneumothorax INTERVAL HPI:Terri Burciaga is a 75 year old female status post pneumothorax following CT-guided lung biopsy. Did not require chest tube but did require pain management. Chest pain is tolerable with pain medication. PTX persistent but no increase. No events over night. ROS: No change. Constipation resolved. MEDICATIONS: Current Facility-Administered Medications Medication Dose Route Frequency - losartan 100 mg tab(s) (COZAAR) 100 mg ORAL DAILY - cloNIDine HCl 0.1 mg tab(s) (CATAPRES) 0.1 mg ORAL AT BEDTIME - pantoprazole DR 20 mg tab(s) (PROTONIX) 20 mg ORAL DAILY (6 AM) - hydroCHLOROthiazide 12.5 mg 12.5 mg ORAL DAILY - potassium chloride ER 20 mEq tab(s) (K-DUR, KLOR-CON) 20 mEq ORAL BID - sodium chloride 0.9 % (flush) 3-5 mL (BD POSIFLUSH) 3-5 mL INTRAVENOUS q 12 H - ondansetron orally disintegrating 4 mg tab(s) (ZOFRAN ODT) 4 mg ORAL q 6 H PRN Or - ondansetron (PF) 4 mg injection (ZOFRAN) 4 mg INTRAVENOUS q 6 H PRN - acetaminophen 650 mg tab(s) (TYLENOL) 650 mg ORAL q 6 H PRN - magnesium oxide 200 mg tab(s) (MAG-OX) 200 mg ORAL DAILY - HYDROcodone 5 mg - acetaminophen 325 mg tablet (NORCO) 1 tablet ORAL q 6 H PRN - calcium carbonate 750 mg chewable tab(s) (TUMS) 750 mg ORAL TID PRN CURRENT ALLERGIES: ALLERGIES Allergen Reactions - Cigarette Smoke [Ot* Cough, Itching, Shortness of Breath - Adhesive Tape (Deyanira* Itching - Aleve [Naproxen Sod* GI Upset - Ativan [Lorazepam] Other: See Comments depression - Cats - Lopressor [Metoprol* Mental Status Change - Nickel Rash - Norvasc [Amlodipine* Swelling Swelling to feet and ankles - Sulfa (Sulfonamide * severe headache - Vioxx [Rofecoxib] GI Upset Patient Vitals for the past 24 hrs: BP Temp Temp src Pulse Resp SpO2 01/01/21 1112 105/53 36.6 ?C (97.9 ?F) Oral 78 20 98 % 01/01/21 0728 126/61 36.5 ?C (97.7 ?F) Oral 77 16 95 % 01/01/21 0433 112/61 36.4 ?C (97.5 ?F) Oral 79 16 98 % 12/31/20 2351 110/59 36.8 ?C (98.2 ?F) Oral 80 18 99 % 12/31/203 119/63 36.5 ?C (97.7 ?F) Oral 78 18 97 % 12/31/202032 130/61 36.6 ?C (97.9 ?F) ? 78 ? 98 % 12/31/202028 143/59 ? ? 78 ? 99 % 12/31/20 1514 (!) 94/49 36.5 ?C (97.7 ?F) Oral 76 19 97 % Intake/Output Summary (Last 24 hours) at 01/01/2021 1423 Last data filed at 01/01/2021 0900 Gross per 24 hour Intake 240 ml Output ? Net 240 ml OBJECTIVE PHYSICAL EXAM: BP 105/53 Pulse 78 Temp (Src) 97.9 (Oral) Resp 20 Ht 4' 10 (1.47m) Wt 183 lb 3.2 oz (83.1kg) SpO2 98% BMI 38.30 kg/(m2). Liters: 5.00, %FIO2: (40% VM) General appearance: Obese, NAD Respiratory: No distress, adequate oxygenation, normal breath sounds anteriorly Cardiovascular: RRR, no murmur Extremities: No edema DATA Diagnostic tests reviewed for today's visit, films/specimens were personally reviewed by me: Most recent imaging CBC, Coags, BMP, Mg, Phos Recent Labs 01/01/21 0522 12/31/20 0422 12/30/20 0523 WBC 5.63 5.40 5.16 HB 12.7 12.7 13.7 HCT 40.9 41.3 43.8 PLT 172 169 171 NA 140 136 138 K 4.4 4.9 4.1 CHLOR 102 102 102 CO2 29 28 26 BUN 24* 24* 21 CREAT 0.98* 1.01* 1.06* GLUC 108* 109* 101* CA 9.0 9.1 9.1 DATE OF EXAM: Jan 01 2021 ?5:20AM ? MDX ? 5376 ?- ?XR CHEST 1V FRONTAL PORT ?/ PROCEDURE REASON: Pneumothorax EXAMINATION: ?CHEST RADIOGRAPH (PORTABLE SINGLE VIEW AP) Exam Date/Time: ?01/01/2021 5:20 AM CLINICAL HISTORY: Pneumothorax Comparison: ?1 day prior RESULT: Lines, tubes, and devices: ?Overlying monitor leads are in place. Lungs and pleura: ?Patient has known left-sided hydropneumothorax without significant interval change. ?Right lung is clear. Cardiomediastinal silhouette: ?Stable cardiomediastinal silhouette. I personally reviewed the images which shows no change in PTX but fluid less to my view. SIGNATURE: Jacquie Evans MD PATIENT NAME: Terri Burciaga DATE: January 01, 2021 TIME: 2:23 PM CELL: Normal [facility] PROGRESSon 01-01-2021 PROGRESS HNO ID: [id number] Author: Yessenia Lagunas) L[place] Service: Hospital Medicine Author Type: Nurse Practitioner Type: Progress Notes Filed: 01/01/2021 1:55 PM Note Text: DEPARTMENT OF HOSPITAL MEDICINE PROGRESS NOTE SERVICE DATE: 01/01/2021 SERVICE TIME: 9:44 AM Hospital Medicine/Primary Attending: Stcaie Shook NIGHT AND WEEKEND COVERAGE: [place] COVERAGE: Days: [phone], please page attending physician. Nights: [phone], please page [place] [facility] Night coverage pager [phone]. Subjective CC: Shortness of breath, chest pain s/p lung biopsy INTERVAL HPI: Complains of sharp left sided chest discomfort with coughing (dry, non productive cough). Pain is alleviated by [place]. Shortness of breath has improved since admission. She is speaking in full sentences. Had CXR this morning that showed stable, unchanged left-sided hydropneumothorax. Good O2 saturation on room air. Will monitor overnight, repeat chest xr in am and plan for discharge home tomorrow if she remains stable overnight. Current Facility-Administered Medications Medication Dose Route Frequency - losartan 100 mg tab(s) (COZAAR) 100 mg ORAL DAILY - cloNIDine HCl 0.1 mg tab(s) (CATAPRES) 0.1 mg ORAL AT BEDTIME - pantoprazole DR 20 mg tab(s) (PROTONIX) 20 mg ORAL DAILY (6 AM) - hydroCHLOROthiazide 12.5 mg 12.5 mg ORAL DAILY - potassium chloride ER 20 mEq tab(s) (K-DUR, KLOR-CON) 20 mEq ORAL BID - sodium chloride 0.9 % (flush) 3-5 mL (BD POSIFLUSH) 3-5 mL INTRAVENOUS q 12 H - ondansetron orally disintegrating 4 mg tab(s) (ZOFRAN ODT) 4 mg ORAL q 6 H PRN Or - ondansetron (PF) 4 mg injection (ZOFRAN) 4 mg INTRAVENOUS q 6 H PRN - acetaminophen 650 mg tab(s) (TYLENOL) 650 mg ORAL q 6 H PRN - magnesium oxide 200 mg tab(s) (MAG-OX) 200 mg ORAL DAILY - HYDROcodone 5 mg - acetaminophen 325 mg tablet (NORCO) 1 tablet ORAL q 6 H PRN - calcium carbonate 750 mg chewable tab(s) (TUMS) 750 mg ORAL TID PRN Objective PHYSICAL EXAM: BP 126/61 Pulse 77 Temp (Src) 97.7 (Oral) Resp 16 Ht 4' 10 (1.47m) Wt 183 lb 3.2 oz (83.1kg) SpO2 95% BMI 38.30 kg/(m2). O2 Therapy: Simple Face Mask, %FIO2: (40% VM) Physical Exam Performed GENERAL: Alert, no distress, cooperative SKIN: Skin color, texture, turgor normal. No suspicious rashes or lesions. HEAD/SINUSES: No significant findings. AT/NC EYES: Anicteric, EOMI OROPHARYNX: MMM, no thrush or oral lesions noted LUNGS: Left lobe diminished, right lobe is clear. She is speaking in full sentences CARDIAC: Normal S1 and S2; no rubs, murmurs, or gallops ABDOMEN: Abdomen soft, non-tender, BS present Lines, Drains, and Airways Line Peripheral 12/28/20 0910 Short Right Hand 20 Gauge 4 days Reviewed lines and needs to be continued: REASONS: Telemetry DATA: Diagnostic tests reviewed for today's visit: Most recent labs Most recent imaging Recent Labs 01/01/21 0522 12/31/20 0422 12/30/20 0523 WBC 5.63 5.40 5.16 HB 12.7 12.7 13.7 PLT 172 169 171 NA 140 136 138 K 4.4 4.9 4.1 CO2 29 28 26 BUN 24* 24* 21 CREAT 0.98* 1.01* 1.06* Assessment/Plan ? Pneumothorax of left lung after biopsy Nodule of left lung -- Small L pneumothorax on CXR following biopsy?on 12/28/2020 -- Associated with increased GUERRA and chest discomfort -- Currently hemodynamically stable?and?on room air -- Serial chest xrays with stable/unchanged findings --?Continue 02 via VM with goal Sp02 ~100% as per pulm --?Continuous telemetry monitoring -- As needed pain control -- Can discharge when pain is well controlled -- Will likely take a couple of weeks to completely resolve Left lung nodule -- Surgical pathology report from LL nodule biopsy with no significant pathologic changes ? Essential hypertension -- Stable, continue home meds with holding parameters? ? Esophageal reflux -- Stable, continue PPI? ? FRIEDA (obstructive sleep apnea) -- Okay to use home CPAP in house? ? 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 Medication and Non-Pharmacologic VTE Prophylaxis/Anticoagulants 12/28/20 1630 pneumatic compression stockings (md,vt) VTE Prophylaxis: VTE prophylaxis appropriate Disposition: Home likely in the next 24 hours Plan of care discussed with: Provider, RN, Patient and Care Management Plan communicated to: Patient prefers to communicate with family. Documentation from previous visits has been copied and pasted. Documentation has been reviewed and edited as necessary for today's visit. SIGNATURE: Yessenia Barfield APRN.CNP PATIENT NAME: Terri Burciaga DATE: January 01, 2021 TIME: 9:53 AM [facility] XR CHEST 1V FRONTAL PORTon 0 01-01-2021 XR CHEST 1V FRONTAL PORT * * *Final Report* * * DATE OF EXAM: Jan 01 2021 5:20AM MDX 5376 - XR CHEST 1V FRONTAL PORT / PROCEDURE REASON: Pneumothorax * * * * Physician Interpretation * * * * EXAMINATION: CHEST RADIOGRAPH (PORTABLE SINGLE VIEW AP) Exam Date/Time: 01/01/2021 5:20 AM CLINICAL HISTORY: Pneumothorax MQ: XCPR_5 Comparison: 1 day prior RESULT: Lines, tubes, and devices: Overlying monitor leads are in place. Lungs and pleura: Patient has known left-sided hydropneumothorax without significant interval change. Right lung is clear. Cardiomediastinal silhouette: Stable cardiomediastinal silhouette. Other: . IMPRESSION: Stable chest Medical Clerk: MARTHA Transcribe Date/Time: Jan 01 2021 7:59A Dictated by : SUSAN BRIAN MD This examination was interpreted and the report reviewed and electronically signed by: SUSAN BRIAN MD on Jan 01 2021 8:00AM EST [id number] [facility] ALLIED HEALTHon 12-31-2020 ALLIED HEALTH HNO ID: [id number] Author: Cesar Cramer) HARMONY Rust Service: Radiology Author Type: Clinical Costume Shop Coordinator Type: Allied Health Filed: 12/31/2020 10:00 AM Note Text: Radiology Service Progress Note PATIENT NAME: Terri Burciaga DATE OF SERVICE: December 31, 2020 TIME: 10:00 AM PATIENT IDENTITY VERIFICATION COMPLETED USING TWO (2) IDENTIFIERS: Name and Date of confirmed by patient verbally. FALL SCREENING: Has the patient had 2 falls in the last year or 1 fall with injury or currently using an Ambulatory Assistive Device (Walker, Cane, Wheelchair, Crutches, etc.)? Inpatient: Screened on floor PATIENT GENDER DATA: Female. status: : No status: NO. PATIENT RELEVANT IMPLANT DATA REVIEWED: Not Applicable RADIOLOGY DEPARTMENT: General X-ray: Exam(s) Completed: Chest X-Ray PERIPHERAL IV DATA: Not applicable SIGNED BY: HARMONY Hidalgo December 31, 2020 10:00 AM [facility] Basic Metabolic Panlon 12-31 Anion gap [Moles/Vol] 6 mmol/L Low 9-18 [facility] Comment on above: Performed By: #### C BC, BMP ####[facility] [address] [phone] Calcium [Mass/Vol] 9.1 mg/dL Normal 8.5-10.2 [facility] Comment on above: Performed By: #### C BC, BMP ####[facility] [address] [place] [phone] Chloride [Moles/Vol] 102 mmol/L Normal 97-105 [facility] Comment on above: Performed By: #### C BC, BMP ####[facility] [address] [place] [address] CO2 [Moles/Vol] 28 mmol/L Normal 22-30 [facility] Comment on above: Performed By: #### C BC, BMP ####[facility] [address] [place] [phone] Creatinine [Mass/Vol] 1.01 mg/dL High 0.58-0.96 [facility] Comment on above: Performed By: #### C BC, BMP ####[facility] [address] [place] [address] eGFR- Amer. >60 Normal [facility] Comment on above: Performed By: #### C ANGELA, BMP ####[facility] [place] [phone] GFR/1.73 sq M predicted among non-blacks MDRD (S/P/Bld) [Vol rate/Area] 54 . Normal [facility] Comment on above: Result Comment: eGFR (Estimated GFR) Units of [...] accurately reflect actual GFR. Performed By: #### C , BMP ####[facility] [address] [place] [phone] Glucose [Mass/Vol] 109 mg/dL High 74-99 [facility] Comment on above: Result Comment: The [place] [employer] (ADA) provides guidance for cutoff values for fasting glucose and random glucose. The ADA defines fasting as no caloric intake for at least 8 hours. Fasting plasma glucose results between 100 to 125 [...] Standards of Medical Care in Diabetes 2016, [place] [employer]. Diabetes Care. 2016.39(Suppl 1). Performed By: #### C BC, BMP ####[facility] [address] [place] [address] Potassium [Moles/Vol] 4.9 mmol/L Normal 3.7-5.1 [facility] Comment on above: Performed By: #### C BC, BMP ####[facility] [address] [place] [address] Sodium [Moles/Vol] 136 mmol/L Normal 136-144 [facility] Comment on above: Performed By: #### C BC, BMP ####[facility] [address] [place], [place] [phone] Urea nitrogen [Mass/Vol] 24 mg/dL High 7-21 [facility] Comment on above: Performed By: #### C BC, BMP ####[facility] [address] [place] [address] CASE MANAGEMon 12-31-2020 CASE MANAGEM HNO ID: [id number] Author: Mena (Rn) NYLA Ortiz Service: Case Management Author Type: Registered Nurse Type: Care Mgt Progress Note Filed: 12/31/2020 3:04 PM Note Text: CARE MANAGEMENT PROGRESS NOTE SERVICE DATE: 12/31/2020 SERVICE TIME: 02:10 PM LOS: 0 days Needs Prior to Discharge: Other: See Comment(Medical clearance) Met with patient at bedside to discuss discharge plan, plan remains for patient to discharge home with no services. Anticipate discharge Thursday or Thursday. CM will remain available for discharge planning needs. SIGNATURE: Mena Ortiz RN PATIENT NAME: Terri Burciaga DATE: December 31, 2020 TIME: 3:02 PM PAGER/CONTACT #: [phone] Normal [facility] CBCon 12-31-2020 Absolute nRBC <0.01 Normal <0.01 [facility] Comment on above: Performed By: #### C BC, BMP ####[facility] [address] [place], [place] [phone] Erythrocyte distribution width (RBC) [Ratio] 14.1 % Normal 11.5-15.0 [facility] Comment on above: Performed By: #### C ANGELA, BMP ####[facility] [address] [place] [address] Hematocrit (Bld) [Volume fraction] 41.3 % Normal 36.0-46.0 [facility] Comment on above: Performed By: #### C ANGELA, BMP ####[facility] [address] [place] [phone] Hemoglobin (Bld) [Mass/Vol] 12.7 g/dL Normal 11.5-15.5 [facility] Comment on above: Performed By: #### C ANGELA, BMP ####[facility] [address] [place], [place] [phone] MCH (RBC) [Entitic mass] 27.8 pG Normal 26.0-34.0 [facility] Comment on above: Performed By: #### C ANGELA, BMP ####[facility] [address] [place], [place] [phone] MCHC (RBC) [Mass/Vol] 30.8 g/dL Normal 30.5-36.0 [facility] Comment on above: Performed By: #### C ANGELA, BMP ####[facility] [address] MCV (RBC) [Entitic vol] 90.4 fL Normal 80.0-100.0 [facility] Comment on above: Performed By: #### C ANGELA, BMP ####[facility] [address] [place] [phone] Platelet mean volume (Bld) [Entitic vol] 10.6 fL Normal 9.0-12.7 [facility] Comment on above: Performed By: #### C ANGELA, BMP ####[facility] [address] Platelets (Bld) [#/Vol] 169 10*3/uL Normal 150-400 [facility] Comment on above: Performed By: #### C ANGELA, BMP ####[facility] [address] [place] [phone] RBC (Bld) [#/Vol] 4.57 10*6/uL Normal 3.90-5.20 [facility] Comment on above: Performed By: #### C ANGELA, JAQUELINE ####[facility] [address] [phone] WBC (Bld) [#/Vol] 5.40 10*3/uL Normal 3.70-11.00 [facility] Comment on above: Performed By: #### C ANGELA, BMP ####[facility] [address] [phone] CONSULT PROGon 12-31-2020 CONSULT PROG HNO ID: [id number] Author: Jacquie Evans Service: Pulmonary Disease Author Type: Physician Type: Consult Progress Note Filed: 12/31/2020 1:20 PM Note Text: [facility] PUL[facility] IN-PATIENT CONSULT PROGRESS NOTE SERVICE DATE: 12/31/2020 ASSESSMENT: 1. Iatrogenic pneumothorax 2. Pleuritic chest pain due to #1 3. Lung nodule RECOMMENDATIONS: It may take several weeks for her left pneumothorax to resolve. Once her pain is under control, she could be discharged to home with surveillance of her pneumothorax by serial x-rays. I would not recommend placement of a small bore chest tube due to the small nature of her pneumothorax and stable condition. Small pleural effusion in the face of pneumothorax. If her biopsy specimen is nondiagnostic, repeat CT of her chest with potential navigational bronchoscopy and biopsy of the if her nodule continues to increase in size. Plan discussed in detail with patient. Patient verbalizes understanding and is in agreement with the current management plan. Total time spent in patient care includes but is not limited to patient/ family discussions, collaborative discussions with other healthcare providers, review of medical records, review of laboratory tests, radiology images/ results, microbiology and pathology data. Jacquie Evans MD Staff, Respiratory [place] [facility] Pager #[phone] SUBJECTIVE CHIEF COMPLAINT: Chest pain INTERVAL HPI:Terri Burciaga is a 75 year old female former smoker with obstructive sleep apnea not tolerant of CPAP, hypertension, acid reflux disease, and history of Covid pneumonia in September who was recently seen as outpatient for suspicious left lower lobe nodule. She originally had a left lower lobe lung nodule in April of this past year, 1.2 cm ovoid area possibly nodular with adjacent groundglass. Her follow-up CT in 3 months showed no change in her nodule with changes consistent with possible scar. More recent CT showed that the groundglass area was more nodular and the ovoid nodular area had increased in size and had subtle spiculations. Risk of cancer estimated at 45%, PET scan with minimal activity. She underwent a CT-guided biopsy as an outpatient which resulted in an iatrogenic pneumothorax. The interventional radiologist did not feel comfortable monitoring her for several hours and then discharging to home so she was admitted for observation. Her pneumothorax has not resolved nor has it increased in size. She has been having significant pleuritic chest pain. Currently her pain is tolerable every 6 hours Percocet. She denies any significant SOB. She has had some cough which is nonproductive. No events over night. ROS: See HPI. No wheezing, chills, fevers, dyspnea, no lower extremity edema MEDICATIONS: Current Facility-Administered Medications Medication Dose Route Frequency - losartan 100 mg tab(s) (COZAAR) 100 mg ORAL DAILY - cloNIDine HCl 0.1 mg tab(s) (CATAPRES) 0.1 mg ORAL AT BEDTIME - pantoprazole DR 20 mg tab(s) (PROTONIX) 20 mg ORAL DAILY (6 AM) - hydroCHLOROthiazide 12.5 mg 12.5 mg ORAL DAILY - potassium chloride ER 20 mEq tab(s) (K-DUR, KLOR-CON) 20 mEq ORAL BID - sodium chloride 0.9 % (flush) 3-5 mL (BD POSIFLUSH) 3-5 mL INTRAVENOUS q 12 H - ondansetron orally disintegrating 4 mg tab(s) (ZOFRAN ODT) 4 mg ORAL q 6 H PRN Or - ondansetron (PF) 4 mg injection (ZOFRAN) 4 mg INTRAVENOUS q 6 H PRN - acetaminophen 650 mg tab(s) (TYLENOL) 650 mg ORAL q 6 H PRN - magnesium oxide 200 mg tab(s) (MAG-OX) 200 mg ORAL DAILY - HYDROcodone 5 mg - acetaminophen 325 mg tablet (NORCO) 1 tablet ORAL q 6 H PRN - calcium carbonate 750 mg chewable tab(s) (TUMS) 750 mg ORAL TID PRN CURRENT ALLERGIES: ALLERGIES Allergen Reactions - Cigarette Smoke [Ot* Cough, Itching, Shortness of Breath - Adhesive Tape (Deyanira* Itching - Aleve [Naproxen Sod* GI Upset - Ativan [Lorazepam] Other: See Comments depression - Cats - Lopressor [Metoprol* Mental Status Change - Nickel Rash - Norvasc [Amlodipine* Swelling Swelling to feet and ankles - Sulfa (Sulfonamide * severe headache - Vioxx [Rofecoxib] GI Upset Patient Vitals for the past 24 hrs: BP Temp Temp src Pulse Resp SpO2 12/31/20 1121 102/57 36.4 ?C (97.5 ?F) Oral 73 18 98 % 12/31/20 0728 128/67 36.4 ?C (97.5 ?F) Oral 67 17 98 % 12/31/20 0504 132/83 36.4 ?C (97.5 ?F) Oral 86 18 98 % 12/30/20 1945 148/79 36.5 ?C (97.7 ?F) Oral 81 19 97 % 12/30/20 1551 116/60 36.4 ?C (97.5 ?F) Oral 76 16 97 % Intake/Output Summary (Last 24 hours) at 12/31/2020 1301 Last data filed at 12/31/2020 1000 Gross per 24 hour Intake 1200 ml Output ? Net 1200 ml OBJECTIVE PHYSICAL EXAM: BP 102/57 Pulse 73 Temp (Src) 97.5 (Oral) Resp 18 Ht 4' 10 (1.47m) Wt 183 lb 3.2 oz (83.1kg) SpO2 98% BMI 38.30 kg/(m2). O2 Therapy: Room Air, %FIO2: (40% VM) General appearance: Obese, alert and in no acute distress Respiratory: Not labored, lungs clear to auscultation no wheezing or rhonchi Cardiovascular: Regular rate and rhythm no murmurs Abdomen: Soft, non tender, non distended. Normal bowel sounds. Extremities: No edema, no clubbing DATA Diagnostic tests reviewed for today's visit, films/specimens were personally reviewed by me: Most recent labs and imaging results. CBC, Coags, BMP, Mg, Phos Recent Labs 12/31/20 0422 12/30/20 0523 12/29/20 0400 WBC 5.40 5.16 7.07 HB 12.7 13.7 13.5 HCT 41.3 43.8 43.2 PLT 169 171 186 NA 136 138 137 K 4.9 4.1 4.6 CHLOR 102 102 103 CO2 28 26 24 BUN 24* 21 21 CREAT 1.01* 1.06* 1.08* GLUC 109* 101* 109* CA 9.1 9.1 9.4 DATE OF EXAM: Dec 31 2020 ?9:59AM ? MDX ? 5291 ?- ?XR CHEST 2V FRONTAL/LAT ?/ PROCEDURE REASON: Pneumothorax EXAMINATION: ?CHEST RADIOGRAPH (2 VIEW FRONTAL AND LATERAL) PATIENT/TECHNOLOGIST PROVIDED HISTORY: ? follow up pneumothorax CLINICAL INFORMATION: ?75 years old Female with Pneumothorax EXAM DATE/TIME: ?12/31/2020 9:59 AM COMPARISON: Chest radiograph 12/30/2020, 12/29/2020, 12/28/2020 RESULT: Lines, tubes, and devices: ?None. Lungs and pleura: Left-sided hydropneumothorax with an 11 mm apicopleural separation of the pneumothorax component and small fluid component at the left lung base with adjacent atelectasis. No new consolidation. Right lung is grossly clear. Cardiomediastinal silhouette: ?Stable cardiomediastinal silhouette. Bones and soft tissues: ?Endplate degenerative changes of the thoracic spine. Stable sclerotic lesion in the right humeral neck likely representing a bone island. I independently reviewed the images which show a small left apical pneumothorax and small pleural effusion, no significant change. SIGNATURE: Jaqcuie Evans MD PATIENT NAME: Terri Burciaga DATE: December 31, 2020 TIME: 1:01 PM CELL: [facility] NURSING PROGon 12-31-2020 NURSING PROG HNO ID: [id number] Author: Luis Roman) NYLA Lawrence Service: Nursing Author Type: Registered Nurse Type: Nursing Progress Note Filed: 12/31/2020 1:59 PM Note Text: Nursing Progress Note Patient Name: Terri Burciaga Patient Location: [id number] Daily Note: Resting in bed with VM maintained-denies any needs @ this time. Up ad robby-no resp distress observed but pain remains with inspirations. Diet ordered-waiting on CXR 15-No chg in assessment-resting in bed with c/o itching, skin flushing. Call to Elizabeth)-visited see new orders. 1115--Medicated with IV Benadryl prior going down for CXR-feeling better. Resting in bed with no needs assessed-VM maintained. No SOB/resp distress observed- 1315-Itching/flushing resolved-no chg in assessment, resting in bed with no needs assessed. 1315-Patient status changed to INPATIENT This note was completed by: Luis Lawrence RN Normal [facility] PROGRESSon 12-31-2020 PROGRESS HNO ID: [id number] Author: Yessenia (Kiet) [place] Service: Hospital Medicine Author Type: Nurse Practitioner Type: Progress Notes Filed: 12/31/2020 8:09 PM Note Text: DEPARTMENT OF HOSPITAL MEDICINE PROGRESS NOTE SERVICE DATE: 12/31/2020 SERVICE TIME: 9:27 AM Hospital Medicine/Primary Attending: Stacie Shook NIGHT AND WEEKEND COVERAGE: [place] COVERAGE: Days: [phone], please page attending physician. Nights: [phone], please page [place] Hospitalist Night coverage pager [phone]. Subjective CC: Shortness of breath, chest pain s/p lung biopsy INTERVAL HPI: Called to room by NYLA nathan to patient experiencing sudden onset of flushing and itchiness. Suspect secondary to niacin administration. Diphenhydramine administered and symptoms completely resolved. In regards to shortness of breath- this has significantly improved since admission. Still with exertional dyspnea and chest intermittent chest discomfort. Current Facility-Administered Medications Medication Dose Route Frequency - losartan 100 mg tab(s) (COZAAR) 100 mg ORAL DAILY - cloNIDine HCl 0.1 mg tab(s) (CATAPRES) 0.1 mg ORAL AT BEDTIME - pantoprazole DR 20 mg tab(s) (PROTONIX) 20 mg ORAL DAILY (6 AM) - hydroCHLOROthiazide 12.5 mg 12.5 mg ORAL DAILY - potassium chloride ER 20 mEq tab(s) (K-DUR, KLOR-CON) 20 mEq ORAL BID - sodium chloride 0.9 % (flush) 3-5 mL (BD POSIFLUSH) 3-5 mL INTRAVENOUS q 12 H - ondansetron orally disintegrating 4 mg tab(s) (ZOFRAN ODT) 4 mg ORAL q 6 H PRN Or - ondansetron (PF) 4 mg injection (ZOFRAN) 4 mg INTRAVENOUS q 6 H PRN - acetaminophen 650 mg tab(s) (TYLENOL) 650 mg ORAL q 6 H PRN - magnesium oxide 200 mg tab(s) (MAG-OX) 200 mg ORAL DAILY - HYDROcodone 5 mg - acetaminophen 325 mg tablet (NORCO) 1 tablet ORAL q 6 H PRN - calcium carbonate 750 mg chewable tab(s) (TUMS) 750 mg ORAL TID PRN Objective PHYSICAL EXAM: BP 94/49 Pulse 76 Temp (Src) 97.7 (Oral) Resp 19 Ht 4' 10 (1.47m) Wt 183 lb 3.2 oz (83.1kg) SpO2 97% BMI 38.30 kg/(m2). O2 Therapy: Room Air Physical Exam Performed GENERAL: Alert, no distress, cooperative SKIN: Skin color, texture, turgor normal. No suspicious rashes or lesions. HEAD/SINUSES: No significant findings. AT/NC EYES: Anicteric, EOMI OROPHARYNX: MMM, no thrush or oral lesions noted LUNGS: Lungs clear to auscultation, good diaphragmatic excursion. She is speaking in full sentences CARDIAC: Normal S1 and S2; no rubs, murmurs, or gallops ABDOMEN: Abdomen soft, non-tender, BS present Lines, Drains, and Airways Line Peripheral 12/28/20 0910 Short Right Hand 20 Gauge 3 days Reviewed lines and needs to be continued: REASONS: Telemetry DATA: Diagnostic tests reviewed for today's visit: Most recent labs Most recent imaging Recent Labs 12/31/20 0422 12/30/20 0523 12/29/20 0400 WBC 5.40 5.16 7.07 HB 12.7 13.7 13.5 PLT 169 171 186 NA 136 138 137 K 4.9 4.1 4.6 CO2 28 26 24 BUN 24* 21 21 CREAT 1.01* 1.06* 1.08* Assessment/Plan ? Pneumothorax of left lung after biopsy Nodule of left lung -- Small L pneumothorax on CXR following biopsy?on 12/28/2020 -- Associated with increased GUERRA and chest discomfort -- Currently hemodynamically stable?and?on room air -- CXR 12/30 with slight worsening of pneumothorax --?02 via VM with goal Sp02 ~100% as per pulm -- Repeat CXR this morning --?Continuous telemetry monitoring -- As needed pain control -- Can discharge when pain is well controlled -- Will likely take a couple of weeks to completely resolve Niacin flushing -- Patient taking Niacin in the past but it was apparently discontinued at some point then re ordered on admission -- Experienced flushing and itchiness today after administration (not on aspirin) -- Gave IV diphenhydramine and symptoms completely resolved -- Discontinued Niacin ? Essential hypertension -- Stable, continue home meds with holding parameters? ? Esophageal reflux -- Stable, resume PPI? ? Mixed hyperlipidemia -- Most recent lipid panel noted, continue niacin? ? FRIEDA (obstructive sleep apnea) -- Okay to use home CPAP in house? ? 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 Medication and Non-Pharmacologic VTE Prophylaxis/Anticoagulants 12/28/20 1630 pneumatic compression stockings (md,oh) VTE Prophylaxis: VTE prophylaxis appropriate Disposition: Home likely in the next 24 hours Plan of care discussed with: Provider, RN, Patient and Care Management Plan communicated to: Patient prefers to communicate with family. Documentation from previous visits has been copied and pasted. Documentation has been reviewed and edited as necessary for today's visit. SIGNATURE: Yessenia Barfield APRN.CNP PATIENT NAME: Terri Burciaga DATE: December 31, 2020 TIME: 7:53 PM Normal [facility] Urinalysison 12-31-2020 Bilirubin, Urine Negative Normal Negative [facility] Comment on above: Performed By: #### U A ####[facility] [address] [place] [phone] Clarity (U) Clear Normal Clear [facility] Comment on above: Performed By: #### U A ####[facility] [address] [place] [phone] Color (U) Yellow Normal Yellow [facility] Comment on above: Performed By: #### U A ####[facility] [address] [place] [phone] Glucose Ql (U) Negative Normal Negative [facility] Comment on above: Performed By: #### U A ####[facility] [address] [place] [address] Hemoglobin/Blood,Ur Negative Normal Negative [facility] Comment on above: Performed By: #### U A ####[facility] [address] [place] [address] Ketones Ql (U) Negative Normal Negative [facility] Comment on above: Performed By: #### U A ####[facility] [address] [place] [address] Leukest Negative Normal Negative [facility] Comment on above: Performed By: #### U A ####[facility] [address] [place] [address] Nitrite Ql (U) Negative Normal Negative [facility] Comment on above: Performed By: #### U A ####[place] [address] pH (Bld) 6.0 Normal 5.0-8.0 [facility] Comment on above: Performed By: #### U A ####[facility] [address] [place] [address] Protein (U) [Mass/Vol] Negative Normal [facility] Comment on above: Performed By: #### U A ####[place] [address] Specific [place], Ur 1.020 Normal 1.005-1.030 [facility] Comment on above: Performed By: #### U A ####[facility] [address] [place] [address] Urobilinogen Qn (U) 0.2 E.U./dL Normal 0.2-1.0 [facility] Comment on above: Performed By: #### U A ####[facility] [address] [place] [address] XR CHEST 2V FRONTAL/LATon XR CHEST 2V FRONTAL/LAT * * *Final Report* * * DATE OF EXAM: Dec 31 2020 9:59AM MDX [id number] - XR CHEST 2V FRONTAL/LAT / PROCEDURE REASON: Pneumothorax * * * * Physician Interpretation * * * * EXAMINATION: CHEST RADIOGRAPH (2 VIEW FRONTAL and LATERAL) PATIENT/TECHNOLOGIST PROVIDED HISTORY: follow up pneumothorax CLINICAL INFORMATION: 75 years old Female with Pneumothorax MQ: [id number] EXAM DATE/TIME: 12/31/2020 9:59 AM COMPARISON: Chest radiograph 12/30/2020, 12/29/2020, 12/28/2020 RESULT: Lines, tubes, and devices: None. Lungs and pleura: Left-sided hydropneumothorax with an 11 mm apicopleural separation of the pneumothorax component and small fluid component at the left lung base with adjacent atelectasis. No new consolidation. Right lung is grossly clear. Cardiomediastinal silhouette: Stable cardiomediastinal silhouette. Bones and soft tissues: Endplate degenerative changes of the thoracic spine. Stable sclerotic lesion in the right humeral neck likely representing a bone island. IMPRESSION: Stable LEFT hydropneumothorax with an 11 mm apicopleural separation of the pneumothorax component. Medical Clerk: PSCB Transcribe Date/Time: Dec 31 2020 11:04A Dictated by : LISA LEACH DO This examination was interpreted and the report reviewed and electronically signed by: LISA LEACH DO on Dec 31 2020 11:16AM EST [id number] [facility] 12-30-2020 ALLIED HEALTH HNO ID: [id number] Author: HARMONY Hidalgo (Ct) Service: Radiology Author Type: Clinical Costume Shop Coordinator Type: Allied Health Filed: 12/30/2020 9:53 AM Note Text: Radiology Service Progress Note PATIENT NAME: Terri Burciaga DATE OF SERVICE: December 30, 2020 TIME: 9:53 AM PATIENT IDENTITY VERIFICATION COMPLETED USING TWO (2) IDENTIFIERS: Name and Date of confirmed by patient verbally. FALL SCREENING: Has the patient had 2 falls in the last year or 1 fall with injury or currently using an Ambulatory Assistive Device (Walker, Cane, Wheelchair, Crutches, etc.)? Inpatient: Screened on floor PATIENT GENDER DATA: Female. status: : No status: NO. PATIENT RELEVANT IMPLANT DATA REVIEWED: Not Applicable RADIOLOGY DEPARTMENT: General X-ray: Exam(s) Completed: Chest X-Ray PERIPHERAL IV DATA: Not applicable SIGNED BY: HARMONY Hidalgo December 30, 2020 9:53 AM [facility] ALLIED HEALTH HNO ID: [id number] Author: Lora Quarles (Rt) Service: Radiology Author Type: Costume Shop Coordinator Type: Allied Health Filed: 12/30/2020 6:30 AM Note Text: Radiology Service Progress Note PATIENT NAME: Terri Burciaga DATE OF SERVICE: December 30, 2020 TIME: 6:30 AM PATIENT IDENTITY VERIFICATION COMPLETED USING TWO (2) IDENTIFIERS: Name and Date of confirmed by patient verbally. FALL SCREENING: Has the patient had 2 falls in the last year or 1 fall with injury or currently using an Ambulatory Assistive Device (Walker, Cane, Wheelchair, Crutches, etc.)? Inpatient: Screened on floor PATIENT GENDER DATA: Female. status: : No status: NO. PATIENT RELEVANT IMPLANT DATA REVIEWED: Not Applicable RADIOLOGY DEPARTMENT: General X-ray: Exam(s) Completed: Chest X-Ray PERIPHERAL IV DATA: Not applicable SIGNED BY: RT Robina December 30, 2020 6:30 AM [facility] Basic Metabolic Panlon 12-30 Anion gap [Moles/Vol] 10 mmol/L Normal 9-18 [facility] Comment on above: Performed By: #### C ANGELA BMP ####[facility] [address] [place] [address] Calcium [Mass/Vol] 9.1 mg/dL Normal 8.5-10.2 [facility] Comment on above: Performed By: #### C ANGELA, BMP ####[facility] [address] [place] [address] Chloride [Moles/Vol] 102 mmol/L Normal 97-105 [facility] Comment on above: Performed By: #### C ANGELA, BMP ####[facility] [address] [place] [address] CO2 [Moles/Vol] 26 mmol/L Normal 22-30 [facility] Comment on above: Performed By: #### C BC, BMP ####[facility] [address] [place] [address] Creatinine [Mass/Vol] 1.06 mg/dL High 0.58-0.96 [facility] Comment on above: Performed By: #### C ANGELA, BMP ####[facility] [address] [place] [phone] eGFR- Amer. >60 Normal [facility] Comment on above: Performed By: #### C ANGELA, BMP ####[facility] [address] [place] [phone] GFR/1.73 sq M predicted among non-blacks MDRD (S/P/Bld) [Vol rate/Area] 51 . Normal [facility] Comment on above: Result Comment: eGFR (Estimated GFR) Units of [...] accurately reflect actual GFR. Performed By: #### C ANGELA, BMP ####[facility] [phone] Glucose [Mass/Vol] 101 mg/dL High 74-99 [facility] Comment on above: Result Comment: The [place] [employer] (ADA) provides guidance for cutoff values for fasting glucose and random glucose. The ADA defines fasting as no caloric intake for at least 8 hours. Fasting plasma glucose results between 100 to 125 [...] Standards of Medical Care in Diabetes 2016, [place] [employer]. Diabetes Care. 2016.39(Suppl 1). Performed By: #### C ANGELA, BMP ####[facility] [address] [place] [phone] Potassium [Moles/Vol] 4.1 mmol/L Normal 3.7-5.1 [facility] Comment on above: Performed By: #### C ANGELA, BMP ####[facility] [phone] Sodium [Moles/Vol] 138 mmol/L Normal 136-144 [facility] Comment on above: Performed By: #### C BC, BMP ####[facility] [phone] Urea nitrogen [Mass/Vol] 21 mg/dL Normal 7-21 [facility] Comment on above: Performed By: #### C BC, BMP ####[facility] [phone] CASE MGT INIT ASSESon 2020 CASE MGT INIT ASSES HNO ID: [id number] Author: Estefany (Rn) NYLA [place] Service: ? Author Type: Registered Nurse Type: Care Mgt Initial Assessment Filed: 12/30/2020 12:18 PM Note Text: CARE MANAGEMENT: ASSESSMENT AND DISCHARGE PLAN SERVICE DATE: December 30, 2020 SERVICE TIME: 12:16 PM PRIMARY CARE PHYSICIAN: Andre Santana MD ADMISSION STATUS: Observation Needs Prior to Discharge: To Be Determined MEDICAL: [employer] MEDICARE PPO PCP Patient/Administrative Associate Stated Goals: To have reduction in symptoms;To return home to life as it was Health Insurance: [employer] Medicare Health Issues Impacting Discharge Plan: Chronic;Newly diagnosed Newly Diagnosed: pneumothorax Chronic: HTN, GERD, FRIEDA Last Discharge Date: 01/11/16 Is this Within the Past 30 days? Last discharge within 30 days: No Advance Directive: Current Advance Directive: None Health LiteracyHow often do you need to have someone help you when you read instructions, pamphlets, or other written material from your doctor or pharmacy? : 1 - Never How confident are you filling out medical forms by yourself?: 1 - Extremely Baseline Mental Status Prior to this Illness what was the patient's Baseline Mental Status?: Alert AND Oriented Prior to this illness, has anyone described the patient having any of the following behaviors?: Not Applicable Relationship of the informant to the patient:: Daughter Functional Status: Independent Does Patient Currently Receive Any Community Services or Home Care?: None Equipment Prior to Admission: Bi-level Positive Airway Pressure/Continuous Positive Airway Pressure Has the Patient Been in a Nursing Home Facility in the Past 30 days?: No SOCIAL: Living Arrangements: Home Lives With: Alone Financial Resources: Employed Primary Contact: Extended Emergency Contact Information Primary Emergency Contact: Amy Bell Relation: Daughter Supportive Patient Contact:: Yes Contact Resources: Family Caregiver AssessmentCaregiver is ready, willing and able to meet the patient's needs as recommended by the inter-professional team:: (TBD) Does the patient have an acute stroke diagnosis, or has the patient had a stroke during this admission?: No Patient's perception of need for this admission: SOB Medication Adherance I am convinced of the importance of my prescription medication: 0 - Agree Mostly I worry that my prescription medication will do more harm than good to me : 0 - Disagree Mostly I feel financially burdened by my [id number] expenses for my prescription medication:: 0 - Disagree Mostly Risk Score: 0 Are you interested in bedside delivery of your medications? No Is Patient Psychosocially Complex?: No ASSESSMENT AND PLAN: Medical Needs: Medical Needs: Two or more chronic diseases Psychosocial Needs: Psychosocial Needs: None FREEDOM OF CHOICE EXPLAINED: [place] of Choice Given: (not at this time) POTENTIAL TRANSITION PLANS CM called and spoke with dtr Amy, introduced self and role. Pt is a 75 year old female?with a PMHx significant of HTN, GERD, FRIEDA on CPAP former smoker ( 30PY, quit >20 years ago) and recent COVID pneumonia (positive test 10/06/20) who has been directly admitted from outpatient radiology for further observation and monitoring of a small left sided pneumothorax found on follow up CXR after a CT guided lung biopsy of a suspicious left lung nodule. Pt is AANDOx3, resides alone in a 1SH. 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 CM instructed Amy that a CM will remain available for any d/c needs. Amy had no further questions/concerns voiced at this time. SIGNATURE: Estefany Hill RN PATIENT NAME: Terri Burciaga DATE: December 30, 2020 TIME: 12:16 PM PAGER/CONTACT #: [phone] Normal [facility] CBCon 12-30-2020 Absolute nRBC <0.01 Normal <0.01 [facility] Comment on above: Performed By: #### C BC, BMP ####[place] [address] Erythrocyte distribution width (RBC) [Ratio] 14.2 % Normal 11.5-15.0 [facility] Comment on above: Performed By: #### Joni MILLER, BMP ####[place] [address] Hematocrit (Bld) [Volume fraction] 43.8 % Normal 36.0-46.0 [facility] Comment on above: Performed By: #### Joni MILLER, BMP ####[facility] [address] [place] [address] Hemoglobin (Bld) [Mass/Vol] 13.7 g/dL Normal 11.5-15.5 [facility] Comment on above: Performed By: #### Joni MILLER, BMP ####[place] [address] MCH (RBC) [Entitic mass] 27.7 pG Normal 26.0-34.0 [facility] Comment on above: Performed By: #### Joni MILLER, BMP ####[place] [address] MCHC (RBC) [Mass/Vol] 31.3 g/dL Normal 30.5-36.0 [facility] Comment on above: Performed By: #### Joni MILLER, BMP ####[place] [address] MCV (RBC) [Entitic vol] 88.7 fL Normal 80.0-100.0 [facility] Comment on above: Performed By: #### Joni MILLER, BMP ####[place] [address] Platelet mean volume (Bld) [Entitic vol] 10.4 fL Normal 9.0-12.7 [facility] Comment on above: Performed By: #### Joni MILLER, BMP ####[place] [address] Platelets (Bld) [#/Vol] 171 10*3/uL Normal 150-400 [facility] Comment on above: Performed By: #### Joni MILLER, BMP ####[place] [address] RBC (Bld) [#/Vol] 4.94 10*6/uL Normal 3.90-5.20 [facility] Comment on above: Performed By: #### C ANGELA, JAQUELINE ####[facility] [address] [place] [phone] WBC (Bld) [#/Vol] 5.16 10*3/uL Normal 3.70-11.00 [facility] Comment on above: Performed By: #### C ANGELA, JAQUELINE ####[facility] [address] [place] [phone] CONSULT PROGon 12-30-2020 CONSULT PROG HNO ID: [id number] Author: Kait Davis Service: Pulmonary Disease Author Type: Physician Type: Consult Progress Note Filed: 12/30/2020 9:58 AM Note Text: [facility] IN-PATIENT CONSULT PROGRESS NOTE SERVICE DATE: 12/30/2020 ASSESSMENT: 75 year old White female with the following- The below is copied from yesterday's note by me with changes noted in bold. ? Acute issues- 1. Small left pneumothorax s/p LLL nodule biopsy 2. Pain due to #1 ? Chronic issues- 1. Left lower lobe spiculated nodule > 8 mm 2. Mild FRIDEA- auto cpap at home 3. Chronic diastolic heart failure 4. History of recent Covid pneumonia (10/06/20) 5. BMI of 38.29 ? RECOMMENDATIONS: - PA/lateral chest xray today - placed on ventimask to deliver her high oxygen in order to help pneumothorax resolve - maintain oxygen around 100% - please AVOID all positive pressure - pain management per primary team My final recommendations will be communicated back to the requesting physician by way of shared Medical record or letter to requesting physician via US mail. Total time spent in patient care includes but is not limited to patient/ family discussions, collaborative discussions with other healthcare providers, review of medical records, review of laboratory tests, radiology images/ results, microbiology and pathology data. Kait Davis MD Staff, Respiratory [place] [facility] Pager #[phone] SUBJECTIVE CHIEF COMPLAINT: SOB INTERVAL HPI:Terri Burciaga is a 75 year old female has more SOB and chest pain today at the site of the procedure. She says she is dyspneic when she goes to the bathroom. MEDICATIONS: Current Facility-Administered Medications Medication Dose Route Frequency - losartan 100 mg tab(s) (COZAAR) 100 mg ORAL DAILY - cloNIDine HCl 0.1 mg tab(s) (CATAPRES) 0.1 mg ORAL AT BEDTIME - pantoprazole DR 20 mg tab(s) (PROTONIX) 20 mg ORAL DAILY (6 AM) - hydroCHLOROthiazide 12.5 mg 12.5 mg ORAL DAILY - potassium chloride ER 20 mEq tab(s) (K-DUR, KLOR-CON) 20 mEq ORAL BID - niacin 50 mg tab(s) 50 mg ORAL DAILY WITH BREAKFAST - sodium chloride 0.9 % (flush) 3-5 mL (BD POSIFLUSH) 3-5 mL INTRAVENOUS q 12 H - ondansetron orally disintegrating 4 mg tab(s) (ZOFRAN ODT) 4 mg ORAL q 6 H PRN Or - ondansetron (PF) 4 mg injection (ZOFRAN) 4 mg INTRAVENOUS q 6 H PRN - acetaminophen 650 mg tab(s) (TYLENOL) 650 mg ORAL q 6 H PRN - magnesium oxide 200 mg tab(s) (MAG-OX) 200 mg ORAL DAILY - HYDROcodone 5 mg - acetaminophen 325 mg tablet (NORCO) 1 tablet ORAL q 6 H PRN - calcium carbonate 750 mg chewable tab(s) (TUMS) 750 mg ORAL TID PRN CURRENT ALLERGIES: ALLERGIES Allergen Reactions - Cigarette Smoke [Ot* Cough, Itching, Shortness of Breath - Adhesive Tape (Deyanira* Itching - Aleve [Naproxen Sod* GI Upset - Ativan [Lorazepam] Other: See Comments depression - Cats - Lopressor [Metoprol* Mental Status Change - Nickel Rash - Norvasc [Amlodipine* Swelling Swelling to feet and ankles - Sulfa (Sulfonamide * severe headache - Vioxx [Rofecoxib] GI Upset Patient Vitals for the past 24 hrs: BP Temp Temp src Pulse Resp SpO2 12/30/20 0833 104/69 36.4 ?C (97.5 ?F) Oral 70 17 97 % 12/30/20 0529 145/64 36.9 ?C (98.4 ?F) Oral 78 18 99 % 12/30/20 0113 103/59 36.7 ?C (98.1 ?F) Oral 70 18 97 % 12/29/202037 116/61 36.9 ?C (98.4 ?F) Oral 75 18 96 % 12/29/20 1144 ? ? ? 79 20 99 % 12/29/20 1125 99/62 36.5 ?C (97.7 ?F) Oral 78 16 94 % Intake/Output Summary (Last 24 hours) at 12/30/2020 0956 Last data filed at 12/29/2020 1000 Gross per 24 hour Intake 240 ml Output ? Net 240 ml OBJECTIVE PHYSICAL EXAM: BP 104/69 Pulse 70 Temp (Src) 97.5 (Oral) Resp 17 Ht 4' 10 (1.47m) Wt 183 lb 3.2 oz (83.1kg) SpO2 97% BMI 38.30 kg/(m2). O2 Therapy: Room Air General appearance: Well appearing, alert, in no acute distress, well-hydrated, well nourished. Nose/Sinuses: Nares normal, mucosa normal, no drainage or sinus tenderness Oropharynx: Moist oral mucosa, no erythema or exudates Respiratory: lungs clear to auscultation no wheezing or rhonchi Cardiovascular: RRR without murmur, gallop, or rubs. No ectopy Abdomen: Soft, non tender, non distended. Normal bowel sounds. Extremities: Normal pulses. No peripheral edema. DATA Diagnostic tests reviewed for today's visit, films/specimens were personally reviewed by me: Most recent labs CBC, Coags, BMP, Mg, Phos Recent Labs 12/30/20 0523 12/29/20 0400 12/28/20 1649 12/28/20 0904 12/28/20 0904 WBC 5.16 7.07 7.36 < > 5.66 HB 13.7 13.5 13.9 < > 14.8 HCT 43.8 43.2 44.2 < > 46.6* PLT 171 186 193 < > 197 INR -- -- -- -- 1.0 NA 138 137 -- -- -- K 4.1 4.6 -- -- -- CHLOR 102 103 -- -- -- CO2 26 24 -- -- -- BUN 21 21 -- -- -- CREAT 1.06* 1.08* -- -- -- GLUC 101* 109* -- -- -- CA 9.1 9.4 -- -- -- < > = values in this interval not displayed. Liver Function, Amylase, AND Lipase Cardiac Enzymes ABGs SIGNATURE: Kait Davis MD PATIENT NAME: Terri Burciaga DATE: December 30, 2020 TIME: 9:56 AM PAGER/CONTACT #: [phone] [facility] NURSING PROGon 12-30-2020 NURSING PROG HNO ID: [id number] Author: Cristela MooreRn) NYLA Mcfadden Service: Nursing Author Type: Registered Nurse Type: Nursing Progress Note Filed: 12/31/2020 6:51 AM Note Text: Nursing Progress Note Patient Name: Terri Burciaga MRN: Patient Location: [id number] Daily Note: 1900 Assumed care for patient at this time. Patient observed resting in bed with eyes open and easy respirations. Remains on venti mask per MD request to help L pneumothorax healing. Patient reports pain is tolerable at this time. Remains NSR on tele. 2100 Patient observed resting in bed with eyes open and easy respirations. Remains on venti mask per MD request to help L pneumothorax healing. Patient reports pain is tolerable at this time. Remains NSR on tele. 2300 Patient observed resting in bed with eyes open and easy respirations. Remains on venti mask per MD request to help L pneumothorax healing. Patient reports pain is tolerable at this time. Remains NSR on tele. 0030 Patient requesting to send UA for testing because she feels pressure in her bladder. Will collect urine and send for UA. Medicated at this time for upper back pain per MD order. 0100 Patient observed resting in bed with eyes closed and easy respirations. Remains on venti mask per MD request to help L pneumothorax healing. No observation of pain at this time. Remains NSR on tele. 0300 Patient observed resting in bed with eyes closed and easy respirations. Remains on venti mask per MD request to help L pneumothorax healing. No observation of pain at this time. Remains NSR on tele. 0500 Patient observed resting in bed with eyes closed and easy respirations. Remains on venti mask per MD request to help L pneumothorax healing. No observation of pain at this time. Remains NSR on tele. 0630 Medicated at this time for upper back pain per MD order. This note was completed by: Cristela Mcfadden RN [facility] PROGRESSon 12-30-2020 PROGRESS HNO ID: [id number] Author: Johana Lagunas) Lease Purchase Driver Service: Hospital Medicine Author Type: Nurse Practitioner Type: Progress Notes Filed: 12/30/2020 11:24 AM Note Text: DEPARTMENT OF HOSPITAL MEDICINE PROGRESS NOTE SERVICE DATE: 12/30/2020 SERVICE TIME: 11:10 AM Hospital Medicine/Primary Attending: Delfin Hernández) Christiana NIGHT AND WEEKEND COVERAGE: [place] COVERAGE: Days: [phone], please page attending physician. Nights: [phone], please page [place] [facility] Night coverage pager [phone]. Subjective INTERVAL HPI: Increased shortness of breath and left sided chest discomfort today. 2V CXR shows slight worsening of the left-sided pneumothorax. She does feel better while wearing 02 via VM. Current Facility-Administered Medications Medication Dose Route Frequency - losartan 100 mg tab(s) (COZAAR) 100 mg ORAL DAILY - cloNIDine HCl 0.1 mg tab(s) (CATAPRES) 0.1 mg ORAL AT BEDTIME - pantoprazole DR 20 mg tab(s) (PROTONIX) 20 mg ORAL DAILY (6 AM) - hydroCHLOROthiazide 12.5 mg 12.5 mg ORAL DAILY - potassium chloride ER 20 mEq tab(s) (K-DUR, KLOR-CON) 20 mEq ORAL BID - niacin 50 mg tab(s) 50 mg ORAL DAILY WITH BREAKFAST - sodium chloride 0.9 % (flush) 3-5 mL (BD POSIFLUSH) 3-5 mL INTRAVENOUS q 12 H - ondansetron orally disintegrating 4 mg tab(s) (ZOFRAN ODT) 4 mg ORAL q 6 H PRN Or - ondansetron (PF) 4 mg injection (ZOFRAN) 4 mg INTRAVENOUS q 6 H PRN - acetaminophen 650 mg tab(s) (TYLENOL) 650 mg ORAL q 6 H PRN - magnesium oxide 200 mg tab(s) (MAG-OX) 200 mg ORAL DAILY - HYDROcodone 5 mg - acetaminophen 325 mg tablet (NORCO) 1 tablet ORAL q 6 H PRN - calcium carbonate 750 mg chewable tab(s) (TUMS) 750 mg ORAL TID PRN Objective PHYSICAL EXAM: BP 104/69 Pulse 70 Temp (Src) 97.5 (Oral) Resp 17 Ht 4' 10 (1.47m) Wt 183 lb 3.2 oz (83.1kg) SpO2 97% BMI 38.30 kg/(m2). O2 Therapy: Room Air Physical Exam Performed GENERAL:?Alert, no distress, cooperative SKIN:?Skin color, texture, turgor normal. No rashes or lesions. HEAD/SINUSES:?No significant findings BACK:?Back symmetric. Left biopsy site dressing CDI. LUNGS:?Lungs clear to auscultation throughout CARDIAC:?RRR; no rubs, murmurs, or gallops ABDOMEN:?Abdomen soft, non-tender, BS normal, No masses or organomegaly EXTREMITIES:?Extremities normal, no deformities, edema, clubbing or skin discoloration.? NEURO:?Grossly normal cognition, motor function, and cranial nerves III-XII PULSES:?2+ radial, 2+ dorsalis pedis Lines, Drains, and Airways Line Peripheral 12/28/20 0910 Short Right Hand 20 Gauge 2 days Reviewed lines and needs to be continued: REASONS: Telemetry DATA: Diagnostic tests reviewed for today's visit: Most recent labs and imaging results. Assessment/Plan Pneumothorax of left lung after biopsy Nodule of left lung -- Small L pneumothorax on CXR following biopsy on 12/28/2020 -- Associated with increased GUERRA and chest discomfort -- Currently hemodynamically stable?and?on room air -- CXR 11/29 with slight worsening of pneumothorax -- 02 via VM with goal Sp02 ~100% as per pulm -- Repeat CXR in AM, STAT if symptomatic -- May need chest tube if clinically worse -- Continuous telemetry monitoring -- As needed pain control ? Essential hypertension -- Stable, continue home meds with holding parameters? ? Esophageal reflux -- Stable, resume PPI? ? Mixed hyperlipidemia -- Most recent lipid panel noted, continue niacin? ? FRIEDA (obstructive sleep apnea) -- OK to use home CPAP in house? ? Obesity, Class II, BMI 35-39.9 -- Outpatient weight management Yessenia Barfield CNP to resume care tomorrow 12/31. Medication and Non-Pharmacologic VTE Prophylaxis/Anticoagulants 12/28/20 1630 pneumatic compression stockings (md,oh) VTE Prophylaxis: VTE prophylaxis appropriate Disposition: Home when medically cleared Plan of care discussed with: Patient, Care Management, RN and Attending Plan communicated to: N/A SIGNATURE: Johana Khan APRN.CNP PATIENT NAME: Terri Burciaga DATE: December 30, 2020 TIME: 11:10 AM [facility] XR CHEST 1V FRONTAL PORTon 0 12-30-2020 XR CHEST 1V FRONTAL PORT * * *Final Report* * * DATE OF EXAM: Dec 30 2020 6:00AM MDX 5376 - XR CHEST 1V FRONTAL PORT / PROCEDURE REASON: Pneumothorax * * * * Physician Interpretation * * * * EXAMINATION: CHEST RADIOGRAPH (PORTABLE SINGLE VIEW AP) Exam Date/Time: 12/30/2020 6:00 AM CLINICAL HISTORY: Pneumothorax MQ: XCPR_5 Comparison: Chest x-ray on 12/29/2020 RESULT: Lines, tubes, and devices: None. Lungs and pleura: Stable left apical small pneumothorax. Triangular consolidative and hazy opacities overlying the left lower lung appear unchanged. No new consolidations. No masses. Cardiomediastinal silhouette: Stable cardiomediastinal silhouette. Other: There are degenerative changes in the spine and shoulders. IMPRESSION: Overall findings unchanged. Medical Clerk: MARTHA Transcribe Date/Time: Dec 30 2020 7:30A Dictated by : MISBAH LENTZ MD This examination was interpreted and the report reviewed and electronically signed by: MISBAH LENTZ MD on Dec 30 2020 7:32AM EST [id number] [facility] XR CHEST 2V FRONTAL/LATon XR CHEST 2V FRONTAL/LAT * * *Final Report* * * DATE OF EXAM: Dec 30 2020 9:52AM MDX 5291 - XR CHEST 2V FRONTAL/LAT / PROCEDURE REASON: SOB, pneumothorax suspected * * * * Physician Interpretation * * * * EXAMINATION: CHEST RADIOGRAPH (2 VIEW FRONTAL and LATERAL) CLINICAL HISTORY: SOB, pneumothorax suspected MQ: XC2_6 EXAM DATE/TIME: 12/30/2020 9:52 AM COMPARISON: Chest x-ray on 12/30/2020 at 6:06 AM. RESULT: Lines, tubes, and devices: None. Lungs and pleura: Interval stable to slight worsening of left-sided small pneumothorax. Triangular and mild patchy opacities overlying the left lower lung. The right lungs are clear. Left-sided trace pleural effusion cannot be excluded. No right-sided pleural effusion. Cardiomediastinal silhouette: Stable cardiac silhouette and mediastinal contour. Bones and soft tissues: The spine shows degenerative changes. IMPRESSION: Interval stable to slight worsening of left-sided small pneumothorax. Triangular and mild patchy opacities overlying the left lower lung unchanged. Medical Clerk: PSCB Transcribe Date/Time: Dec 30 2020 9:55A Dictated by : MISBAH LENTZ MD This examination was interpreted and the report reviewed and electronically signed by: MISBAH LENTZ MD on Dec 30 2020 9:58AM EST [id number] [facility] ALLIED HEALTHon 12-29-2020 ALLIED HEALTH HNO ID: [id number] Author: Michaelle (Lora Michele Service: Radiology Author Type: Costume Shop Coordinator Type: Allied Health Filed: 12/29/2020 10:56 AM Note Text: Radiology Service Progress Note PATIENT NAME: Terri Burciaga DATE OF SERVICE: December 29, 2020 TIME: 10:56 AM PATIENT IDENTITY VERIFICATION COMPLETED USING TWO (2) IDENTIFIERS: Name and Date of confirmed by patient verbally. FALL SCREENING: Has the patient had 2 falls in the last year or 1 fall with injury or currently using an Ambulatory Assistive Device (Walker, Cane, Wheelchair, Crutches, etc.)? Inpatient: Screened on floor PATIENT GENDER DATA: Female. status: : No status: NO. PATIENT RELEVANT IMPLANT DATA REVIEWED: Not Applicable RADIOLOGY DEPARTMENT: General X-ray: Exam(s) Completed: Chest X-Ray PERIPHERAL IV DATA: Not applicable SIGNED BY: RT Gail December 29, 2020 10:56 AM [facility] Basic Metabolic Panlon 12-29 Anion gap [Moles/Vol] 10 mmol/L Normal 9-18 [facility] Comment on above: Performed By: #### C BC, BMP ####[facility] [address] [place] [address] Calcium [Mass/Vol] 9.4 mg/dL Normal 8.5-10.2 [facility] Comment on above: Performed By: #### C BC, BMP ####[facility] [address] [place] [address] Chloride [Moles/Vol] 103 mmol/L Normal 97-105 [facility] Comment on above: Performed By: #### C BC, BMP ####[facility] [address] [place] [id number] CO2 [Moles/Vol] 24 mmol/L Normal 22-30 [facility] Comment on above: Performed By: #### C BC, BMP ####[facility] [address] [place] [address] Creatinine [Mass/Vol] 1.08 mg/dL High 0.58-0.96 [facility] Comment on above: Performed By: #### C BC, BMP ####[facility] [address] [place] [address] eGFR- Amer. >60 Normal [facility] Comment on above: Performed By: #### C BC, BMP ####[facility] [address] [place] [address] GFR/1.73 sq M predicted among non-blacks MDRD (S/P/Bld) [Vol rate/Area] 50 . Normal [facility] Comment on above: Result Comment: eGFR (Estimated GFR) Units of [...] accurately reflect actual GFR. Performed By: #### C BC, BMP ####[facility] [address] [place] [address] Glucose [Mass/Vol] 109 mg/dL High 74-99 [facility] Comment on above: Result Comment: The [place] [employer] (ADA) provides guidance for cutoff values for fasting glucose and random glucose. The ADA defines fasting as no caloric intake for at least 8 hours. Fasting plasma glucose results between 100 to 125 [...] Standards of Medical Care in Diabetes 2016, [place] [employer]. Diabetes Care. 2016.39(Suppl 1). Performed By: #### C ANGELA, BMP ####[place] [address] Potassium [Moles/Vol] 4.6 mmol/L Normal 3.7-5.1 [facility] Comment on above: Performed By: #### C , BMP ####[place] [address] Sodium [Moles/Vol] 137 mmol/L Normal 136-144 [facility] Comment on above: Performed By: #### C BC, BMP ####[place] [address] Urea nitrogen [Mass/Vol] 21 mg/dL Normal 7-21 [facility] Comment on above: Performed By: #### C BC, BMP ####[place] [address] CBCon 12-29-2020 Absolute nRBC <0.01 Normal <0.01 [facility] Comment on above: Performed By: #### C BC, BMP ####[place] [address] Erythrocyte distribution width (RBC) [Ratio] 14.4 % Normal 11.5-15.0 [facility] Comment on above: Performed By: #### C BC, BMP ####[facility] [address] [place] [address] Hematocrit (Bld) [Volume fraction] 43.2 % Normal 36.0-46.0 [facility] Comment on above: Performed By: #### C BC, BMP ####[facility] [address] [place] [address] Hemoglobin (Bld) [Mass/Vol] 13.5 g/dL Normal 11.5-15.5 [facility] Comment on above: Performed By: #### C ANGELA, BMP ####[facility] [address] [place] [address] MCH (RBC) [Entitic mass] 27.9 pG Normal 26.0-34.0 [facility] Comment on above: Performed By: #### Joni MILLER, BMP ####[facility] [address] [place] [address] MCHC (RBC) [Mass/Vol] 31.3 g/dL Normal 30.5-36.0 [facility] Comment on above: Performed By: #### Joni MILLER, BMP ####[place] [address] MCV (RBC) [Entitic vol] 89.3 fL Normal 80.0-100.0 [facility] Comment on above: Performed By: #### Joni MILLER, BMP ####[facility] [address] [place] [address] Platelet mean volume (Bld) [Entitic vol] 10.7 fL Normal 9.0-12.7 [facility] Comment on above: Performed By: #### Joni MILLER, BMP ####[place] [address] Platelets (Bld) [#/Vol] 186 10*3/uL Normal 150-400 [facility] Comment on above: Performed By: #### Joni MILLER, BMP ####[facility] [address] [place], [place] [id number] RBC (Bld) [#/Vol] 4.84 10*6/uL Normal 3.90-5.20 [facility] Comment on above: Performed By: #### Joni MILLER, BMP ####[facility] [address] [place] [address] WBC (Bld) [#/Vol] 7.07 10*3/uL Normal 3.70-11.00 [facility] Comment on above: Performed By: #### Joni MILLER, BMP ####[facility] [address] [place], [place] [id number] CONSULTon 12-29-2020 CONSULT HNO ID: [id number] Author: Kait Hernández) Susan Service: Pulmonary Disease Author Type: Physician Type: Consults Filed: 12/30/2020 9:57 AM Note Text: [facility]ITIAL CONSULTATION NOTE Patient Name: Terri Burciaga REASON FOR CONSULT: pneumothorax REQUESTING PHYSICIAN: Delfin Hernández) Christiana ASSESSMENT: 75 year old White female with the following- (copied from my own note) ? Acute issues- 1. Small left pneumothorax s/p LLL nodule biopsy 2. Pain due to #1 ? Chronic issues- 1. Left lower lobe spiculated nodule > 8 mm 2. Mild FRIEDA- auto cpap at home 3. Chronic diastolic heart failure 4. History of recent Covid pneumonia (10/06/20) 5. BMI of 38.29 ? RECOMMENDATIONS: - daily Chest xray - placed on ventimask to deliver her high oxygen in order to help pneumothorax resolve - maintain oxygen around 100% - please AVOID all positive pressure - pain management per primary team ? Thank you for the consultation. We will follow the patient along with you. Has been discussed with attending My final recommendations will be communicated back to the requesting physician by way of shared Medical record or letter to requesting physician via US mail. Kait Davis MD CHIEF COMPLAINT: SOB HISTORY OF PRESENT ILLNESS: Terri Burciaga is a 75 year old female, Ht 147.3 cm (4' 10) BMI 38.29 kg/m2, with a PMH significant for heavy smoking. Terri Burciaga is a 75 year old female presents s/p pneumothorax. ? She states that she has left sided chest pain and she has SOB. She says that her SOB is at rest and also exertional. She denies fevers and chills. She denies body aches and pain-- other than her left chest. She does not have pain at the site of the procedure itself. ? She presented for a CT guided lung biopsy yesterday in the afternoon. Dr. Evans, her oil well service operator, is currently working up this suspicious lung nodule. ? After the CT-guided lung biopsy, she was found to develop a persistent left pneumothorax with 2.5 cm apical intrapleural distance. ? She hesitates in taking pain medications because she is afraid of getting addicting to narcotics. ? ? HSAT 01/2020- mild sleep apnea ? 12/20/14 echo: EF 63+/- 5%, stage I diastolic heart failure ? 04/23/[address]- (personally reviewed) left lower lobe small questionable nodule ? 07/31/[address]- (personally reviewed) nodule seen in left lower lobe more clearly ? 11/30/[address]- (personally reviewed) spiculated nodule, increased in size. ? 12/25/20 PET/CT- (Personally reviewed) minimally hypermetabolic ? MEDICATIONS: PAST MEDICAL HISTORY Diagnosis Date - Arrhythmia - Benign neoplasm of colon - Calculus of kidney - Chest pain, unspecified non cardiac - Esophageal reflux - Esophagitis, unspecified - History of recurrent UTIs - HYPERLIPIDEMIA NEC/NOS 03/16/2009 - HYPERTENSION NOS 03/10/2008 - Mental disorder - FRIEDA on CPAP - Osteopenia BMD 12/12/2011 PAST SURGICAL HISTORY [...] Artery Disease Father - Stroke Father - other (CABG) Father - Coronary Artery Disease Sister - Coronary Artery Disease Brother - Ischemic Heart Disease Paternal Grandfather - other (Peripheral Vascular Disease) Sister - Hypertension Sister - Hypertension Sister - Hypertension Brother - Hypertension Son Social History Tobacco Use - Smoking status: Former Smoker Packs/day: 1.50 Years: 20.00 Pack years: 30.00 Types: Cigarettes Quit date: 11/09/1980 Years since quittin.1 - Smokeless tobacco: Never Used - Tobacco comment: up to 3 PPD Substance Use Topics - Alcohol use: No - Drug use: No ALLERGIES: ALLERGIES Allergen Reactions - Cigarette Smoke [Ot* Cough, Itching, Shortness of Breath - Adhesive Tape (Deyanira* Itching - Aleve [Naproxen Sod* GI Upset - Ativan [Lorazepam] Other: See Comments depression - Cats - Lopressor [Metoprol* Mental Status Change - Nickel Rash - Norvasc [Amlodipine* Swelling Swelling to feet and ankles - Sulfa (Sulfonamide * severe headache - Vioxx [Rofecoxib] GI Upset CURRENT OUTPATIENT MEDICATIONS: niacin (NIACIN) 50 mg tablet Take 50 mg by mouth daily with breakfast. pyridoxine, vitamin B6, (VITAMIN B-6) 100 mg tablet Take 100 mg by mouth once daily. Magnesium 200 mg tab Take 1 tablet by mouth once daily. Garlic 100 mg tab Take 1 tablet by mouth once daily. losartan (COZAAR) 100 mg tablet Take 1 tablet by mouth once daily. Hydrochlorothiazide 12.5 mg capsule Take 1 capsule by mouth once daily. cloNIDine HCl (CATAPRES) 0.1 mg tablet Take 1 tablet by mouth daily at bedtime. esomeprazole (NEXIUM) 20 mg capsule Take 1 capsule by mouth DAILY (6 AM). potassium chloride ER (K-DUR, KLOR-CON) 20 mEq tablet Take 1 tablet by mouth twice daily. BIOTIN ORAL Take by mouth. Zinc 50 mg tab Take by mouth. diazePAM (VALIUM) 2 mg tablet Take 1 mg by mouth as needed. COMPOUNDED PRESCRIPTION Speed ankle brace (with wrap around ties)S93.402A Sprain of ligament of left ankle, initial [id number] Pain of left heel diphenhydrAMINE HCl (CHILDREN'S BENADRYL ALLERGY) 12.5 mg chewable tablet Take 12.5 mg by mouth at bedtime as needed. Cholecalciferol, Vitamin D3, (VITAMIN D) 1,000 unit cap Take 1,000 Units by mouth once daily. REVIEW OF SYSTEMS: Constitutional:WELL DEVELOPED HEENT:Negative for frequent or significant headaches, No changes in hearing or vision, no nose bleeds or other nasal problems, SEE HPI RESPIRATORY: See HPI, dyspnea CARDIOVASCULAR: See HPI, Positive for chest pain, negative for leg swelling or palpitations. GASTROINTESTINAL: See HPI and Negative for abdominal discomfort, blood in stools or black stools or change in bowel habits GENITOURINARY: No history of dysuria, frequency or incontinence, See HPI MUSCULOSKELETAL: See HPI, Negative for joint pain or swelling, back pain. NEUROLOGIC: Negative for focal neurological deficits, dizziness or syncope. SKIN: Negative for lesions, rash, and itching. HEMATOLOGIC/LYMPHATIC/IMMUNO LOGIC: No easy bruising or swollen glands. ENDOCRINE: Negative for cold or heat intolerance, polyuria, polydipsia. See HPI The remainder of the ROS were reviewed and negative. Patient Vitals for the past 24 hrs: BP Temp Temp src Pulse Resp SpO2 Weight 12/29/20 1144 ? ? ? 79 20 99 % ? 12/29/20 1125 99/62 36.5 ?C (97.7 ?F) Oral 78 16 94 % ? 12/29/20 0801 ? 83.1 kg (183 lb 3.2 oz) 12/29/20 0740 121/64 36.6 ?C (97.9 ?F) Oral 74 15 93 % ? 12/28/20 2041 129/70 36.7 ?C (98.1 ?F) Oral 82 16 93 % ? 12/28/20 1558 149/72 36.5 ?C (97.7 ?F) Oral 88 18 95 % ? 12/28/20 1300 117/76 ? ? ? 18 98 % ? 12/28/20 1245 ? 22 98 % ? Intake/Output Summary (Last 24 hours) at 12/29/2020 1237 Last data filed at 12/29/2020 1000 Gross per 24 hour Intake 240 ml Output ? Net 240 ml PHYSICAL EXAMINATION: VITAL SIGNS: BP 99/62 Pulse 79 Temp (Src) 97.7 (Oral) Resp 20 Ht 4' 10 (1.47m) Wt 183 lb 3.2 oz (83.1kg) SpO2 99% BMI 38.30 kg/(m2). O2 Therapy: Venti Mask, %FIO2: 40 General appearance: well appearing, alert and in no acute distress Skin: skin color, texture, turgor normal, no rashes or lesions Eyes: Anicteric sclera. Pupils are equally round and reactive to light. ENT:: No oral or nasal erythema, bleeding, lesions, striae Heme/Lymph:: Supple, no adenopathy; thyroid symmetric, normal size, no bruits Lungs: lungs clear to auscultation no wheezing or rhonchi Heart: RRR without murmur, gallop, or rubs. No ectopy GI: Abdomen soft, non-tender. Bowel sounds normal. Musculoskeletal:: No deformities, edema, skin discoloration. Good capillary refill. Neuro: Oriented X 3 DATA: Diagnostic tests reviewed for today's visit, films/specimens were personally reviewed by me: Most recent labs LAB RESULTS: CBC, Coags, BMP, Mg, Phos Recent Labs 12/29/20 0400 12/28/20 1649 12/28/20 0904 WBC 7.07 7.36 5.66 HB 13.5 13.9 14.8 HCT 43.2 44.2 46.6* PLT 186 193 197 INR -- -- 1.0 NA 137 -- -- K 4.6 -- -- CHLOR 103 -- -- CO2 24 -- -- BUN 21 -- -- CREAT 1.08* -- -- GLUC 109* -- -- CA 9.4 -- -- Liver Function, Amylase, AND Lipase Cardiac Enzymes ABGs Kait Davis MD Staff, Respiratory [place] [facility] CONSULT PROGon 12-29-2020 CONSULT PROG HNO ID: [id number] Author: Kait Davis Service: Pulmonary Disease Author Type: Physician Type: Consult Progress Note Filed: 12/29/2020 12:36 PM Note Text: [facility] MEDICINE CONSULT SERVICE DATE: 12/29/2020 ASSESSMENT: 75 year old White female with the following- Acute issues- 1. Small left pneumothorax s/p LLL nodule biopsy 2. Pain due to #1 Chronic issues- 1. Left lower lobe spiculated nodule > 8 mm 2. Mild FRIEDA- auto cpap at home 3. Chronic diastolic heart failure 4. History of recent Covid pneumonia (10/06/20) 5. BMI of 38.29 RECOMMENDATIONS: - daily Chest xray - placed on ventimask to deliver her high oxygen in order to help pneumothorax resolve - maintain oxygen around 100% - please AVOID all positive pressure - pain management per primary team Plan discussed in detail with patient, RN and primary attending. Patient verbalizes understanding and is in agreement with the current management plan. Total time spent in patient care includes but is not limited to patient/ family discussions, collaborative discussions with other healthcare providers, review of medical records, review of laboratory tests, radiology images/ results, microbiology and pathology data. Kait Davis MD Staff, Respiratory [place] [facility] Pager #[phone] SUBJECTIVE CHIEF COMPLAINT: SOB/pneumothorax INTERVAL HPI:Terri Burciaga is a 75 year old female presents s/p pneumothorax. She states that she has left sided chest pain and she has SOB. She says that her SOB is at rest and also exertional. She denies fevers and chills. She denies body aches and pain-- other than her left chest. She does not have pain at the site of the procedure itself. She presented for a CT guided lung biopsy yesterday in the afternoon. Dr. Evans, her oil well service operator, is currently working up this suspicious lung nodule. After the CT-guided lung biopsy, she was found to develop a persistent left pneumothorax with 2.5 cm apical intrapleural distance. She hesitates in taking pain medications because she is afraid of getting addicting to narcotics. HSAT 01/2020- mild sleep apnea 12/20/14 echo: EF 63+/- 5%, stage I diastolic heart failure 04/23/[address]- (personally reviewed) left lower lobe small questionable nodule 07/31/[address]- (personally reviewed) nodule seen in left lower lobe more clearly 11/30/[address]- (personally reviewed) spiculated nodule, increased in size. 12/25/20 PET/CT- (Personally reviewed) minimally hypermetabolic MEDICATIONS: Current Facility-Administered Medications Medication Dose Route Frequency - losartan 100 mg tab(s) (COZAAR) 100 mg ORAL DAILY - cloNIDine HCl 0.1 mg tab(s) (CATAPRES) 0.1 mg ORAL AT BEDTIME - pantoprazole DR 20 mg tab(s) (PROTONIX) 20 mg ORAL DAILY (6 AM) - hydroCHLOROthiazide 12.5 mg 12.5 mg ORAL DAILY - potassium chloride ER 20 mEq tab(s) (K-DUR, KLOR-CON) 20 mEq ORAL BID - niacin 50 mg tab(s) 50 mg ORAL DAILY WITH BREAKFAST - sodium chloride 0.9 % (flush) 3-5 mL (BD POSIFLUSH) 3-5 mL INTRAVENOUS q 12 H - ondansetron orally disintegrating 4 mg tab(s) (ZOFRAN ODT) 4 mg ORAL q 6 H PRN Or - ondansetron (PF) 4 mg injection (ZOFRAN) 4 mg INTRAVENOUS q 6 H PRN - acetaminophen 650 mg tab(s) (TYLENOL) 650 mg ORAL q 6 H PRN - magnesium oxide 200 mg tab(s) (MAG-OX) 200 mg ORAL DAILY - HYDROcodone 5 mg - acetaminophen 325 mg tablet (NORCO) 1 tablet ORAL q 6 H PRN - calcium carbonate 750 mg chewable tab(s) (TUMS) 750 mg ORAL TID PRN CURRENT ALLERGIES: ALLERGIES Allergen Reactions - Cigarette Smoke [Ot* Cough, Itching, Shortness of Breath - Adhesive Tape (Deyanira* Itching - Aleve [Naproxen Sod* GI Upset - Ativan [Lorazepam] Other: See Comments depression - Cats - Lopressor [Metoprol* Mental Status Change - Nickel Rash - Norvasc [Amlodipine* Swelling Swelling to feet and ankles - Sulfa (Sulfonamide * severe headache - Vioxx [Rofecoxib] GI Upset Patient Vitals for the past 24 hrs: BP Temp Temp src Pulse Resp SpO2 Weight 12/29/20 1144 ? ? ? 79 20 99 % ? 12/29/20 1125 99/62 36.5 ?C (97.7 ?F) Oral 78 16 94 % ? 12/29/20 0801 ? 83.1 kg (183 lb 3.2 oz) 12/29/20 0740 121/64 36.6 ?C (97.9 ?F) Oral 74 15 93 % ? 12/28/20 2041 129/70 36.7 ?C (98.1 ?F) Oral 82 16 93 % ? 12/28/20 1558 149/72 36.5 ?C (97.7 ?F) Oral 88 18 95 % ? 12/28/20 1300 117/76 ? ? ? 18 98 % ? 12/28/20 1245 ? 22 98 % ? 12/28/20 1230 131/70 ? ? ? 20 98 % ? 12/28/20 1217 162/98 ? ? ? 22 98 % ? Intake/Output Summary (Last 24 hours) at 12/29/2020 1210 Last data filed at 12/29/2020 1000 Gross per 24 hour Intake 240 ml Output ? Net 240 ml OBJECTIVE PHYSICAL EXAM: BP 99/62 Pulse 79 Temp (Src) 97.7 (Oral) Resp 20 Ht 4' 10 (1.47m) Wt 183 lb 3.2 oz (83.1kg) SpO2 99% BMI 38.30 kg/(m2). O2 Therapy: Venti Mask, %FIO2: 40 General appearance: Well appearing, alert, in no acute distress, well-hydrated, well nourished. Nose/Sinuses: Nares normal, mucosa normal, no drainage or sinus tenderness Oropharynx: Moist oral mucosa, no erythema or exudates Respiratory: lungs clear to auscultation no wheezing or rhonchi Cardiovascular: RRR without murmur, gallop, or rubs. No ectopy Abdomen: Soft, non tender, non distended. Normal bowel sounds. Extremities: Normal pulses. No peripheral edema. Left sided area of IR procedure- appears clear and dry. No pain to palpation at that site. DATA Diagnostic tests reviewed for today's visit, films/specimens were personally reviewed by me: Most recent labs CBC, Coags, BMP, Mg, Phos Recent Labs 12/29/20 0400 12/28/20 1649 12/28/20 0904 WBC 7.07 7.36 5.66 HB 13.5 13.9 14.8 HCT 43.2 44.2 46.6* PLT 186 193 197 INR -- -- 1.0 NA 137 -- -- K 4.6 -- -- CHLOR 103 -- -- CO2 24 -- -- BUN 21 -- -- CREAT 1.08* -- -- GLUC 109* -- -- CA 9.4 -- -- Liver Function, Amylase, AND Lipase Cardiac Enzymes ABGs SIGNATURE: Kait Davis MD PATIENT NAME: Terri Burciaga DATE: December 29, 2020 MRN: TIME: 12:10 PM PAGER/CONTACT #: [phone] [facility] NURSING PROGon 12-29-2020 NURSING PROG HNO ID: [id number] Author: Cristela (Rn) NYLA Mcfadden Service: Nursing Author Type: Registered Nurse Type: Nursing Progress Note Filed: 12/30/2020 5:06 AM Note Text: Nursing Progress Note Patient Name: Terri Burciaga MRN: Patient Location: [place] [id number] Daily Note: 1900 Assumed care for patient at this time. Patient observed resting in bed with eyes open and easy respirations. Remains on venti mask per MD request to enhance pneumothorax healing. Patient reports pain is tolerable at this time. Remains NSR on tele. 2100 Patient observed resting in bed with eyes open and easy respirations. Remains on venti mask per MD request to enhance pneumothorax healing. Remains NSR on tele. Medicated for L lung (back) pain at this time per patient request. 2300 Patient observed resting in bed with eyes open and easy respirations. Remains on venti mask per MD request to enhance pneumothorax healing. Remains NSR on tele. Reports pain is tolerable at this time. 0100 Patient observed resting in bed with eyes closed and easy respirations. Remains on venti mask per MD request to enhance pneumothorax healing. Remains NSR on tele. No observation of pain at this time 0300 Patient observed resting in bed with eyes closed and easy respirations. Remains on venti mask per MD request to enhance pneumothorax healing. Remains NSR on tele. No observation of pain at this time 0500 Patient observed resting in bed with eyes closed and easy respirations. Remains on venti mask per MD request to enhance pneumothorax healing. Remains NSR on tele. No observation of pain at this time This note was completed by: Cristela Mcfadden RN [facility] NURSING PROG HNO ID: [id number] Author: Cathryn Alba Service: Nursing Author Type: ? Type: Nursing Progress Note Filed: 12/29/2020 2:58 PM Note Text: Pt. Reported off to NYLA Gleason. [facility] PROGRESSon 12-29-2020 PROGRESS HNO ID: [id number] Author: Johana Khan Service: Hospital Medicine Author Type: Nurse Practitioner Type: Progress Notes Filed: 12/29/2020 2:17 PM Note Text: DEPARTMENT OF HOSPITAL MEDICINE PROGRESS NOTE SERVICE DATE: 12/29/2020 SERVICE TIME: 2:08 PM Hospital Medicine/Primary Attending: Delfin Hernández) [place] NIGHT AND WEEKEND COVERAGE: [employer] COVERAGE: Days: [phone], please page attending physician. Nights: [phone], please page [place] [facility] Night coverage pager [phone]. Subjective INTERVAL HPI: Persistent increased GUERRA as well as left sided chest discomfort, improved with [place]. She is sating well on RA. CXR this AM shows minimally improved small left pneumothorax. Current Facility-Administered Medications Medication Dose Route Frequency - losartan 100 mg tab(s) (COZAAR) 100 mg ORAL DAILY - cloNIDine HCl 0.1 mg tab(s) (CATAPRES) 0.1 mg ORAL AT BEDTIME - pantoprazole DR 20 mg tab(s) (PROTONIX) 20 mg ORAL DAILY (6 AM) - hydroCHLOROthiazide 12.5 mg 12.5 mg ORAL DAILY - potassium chloride ER 20 mEq tab(s) (K-DUR, KLOR-CON) 20 mEq ORAL BID - niacin 50 mg tab(s) 50 mg ORAL DAILY WITH BREAKFAST - sodium chloride 0.9 % (flush) 3-5 mL (BD POSIFLUSH) 3-5 mL INTRAVENOUS q 12 H - ondansetron orally disintegrating 4 mg tab(s) (ZOFRAN ODT) 4 mg ORAL q 6 H PRN Or - ondansetron (PF) 4 mg injection (ZOFRAN) 4 mg INTRAVENOUS q 6 H PRN - acetaminophen 650 mg tab(s) (TYLENOL) 650 mg ORAL q 6 H PRN - magnesium oxide 200 mg tab(s) (MAG-OX) 200 mg ORAL DAILY - HYDROcodone 5 mg - acetaminophen 325 mg tablet (NORCO) 1 tablet ORAL q 6 H PRN - calcium carbonate 750 mg chewable tab(s) (TUMS) 750 mg ORAL TID PRN Objective PHYSICAL EXAM: BP 99/62 Pulse 79 Temp (Src) 97.7 (Oral) Resp 20 Ht 4' 10 (1.47m) Wt 183 lb 3.2 oz (83.1kg) SpO2 99% BMI 38.30 kg/(m2). O2 Therapy: Venti Mask, %FIO2: 40 Physical Exam Performed GENERAL: Alert, no distress, cooperative SKIN: Skin color, texture, turgor normal. No rashes or lesions. HEAD/SINUSES: No significant findings BACK: Back symmetric. Left biopsy site dressing CDI. LUNGS: Lungs clear to auscultation CARDIAC: RRR; no rubs, murmurs, or gallops ABDOMEN: Abdomen soft, non-tender, BS normal, No masses or organomegaly EXTREMITIES: Extremities normal, no deformities, edema, clubbing or skin discoloration. NEURO: Grossly normal cognition, motor function, and cranial nerves III-XII PULSES: 2+ radial, 2+ dorsalis pedis Lines, Drains, and Airways Line Peripheral 12/28/20 0910 Short Right Hand 20 Gauge 1 day Reviewed lines and needs to be continued: REASONS: Telemetry DATA: Diagnostic tests reviewed for today's visit: Most recent labs and imaging results. Assessment/Plan Pneumothorax of left lung after biopsy Nodule of left lung -- Small L pneumothorax on CXR following biopsy on 12/28/2020 -- Associated with increased GUERRA and chest discomfort -- Currently hemodynamically stable and on room air -- Repeat CXR with minimal interval improvement -- 02 via VM with goal Sp02 ~100% as per pulm -- Repeat CXR in AM, STAT if symptomatic -- May need chest tube if clinically worse -- Continuous telemetry monitoring -- As needed pain control ? Essential hypertension -- Stable, continue home meds with holding parameters ? Esophageal reflux -- Stable, resume PPI ? Mixed hyperlipidemia -- Most recent lipid panel noted, continue niacin ? FRIEDA (obstructive sleep apnea) -- OK to use home CPAP in house ? Obesity, Class II, BMI 35-39.9 -- Outpatient weight management Medication and Non-Pharmacologic VTE Prophylaxis/Anticoagulants 12/28/20 1630 pneumatic compression stockings (md,vt) VTE Prophylaxis: VTE prophylaxis appropriate Disposition: Home, likely 24-48 hours Plan of care discussed with: Patient, RN and Consultants: Dr. Davis Plan communicated to: N/A SIGNATURE: Johana Khan APRN.CNP PATIENT NAME: Terri Burciaga DATE: December 29, 2020 TIME: 2:08 PM [facility] XR CHEST 1V FRONTAL PORTon 0 12-29-2020 XR CHEST 1V FRONTAL PORT * * *Final Report* * * DATE OF EXAM: Dec 29 2020 10:55AM MDX 5376 - XR CHEST 1V FRONTAL PORT / PROCEDURE REASON: Shortness of breath * * * * Physician Interpretation * * * * EXAMINATION: CHEST RADIOGRAPH (PORTABLE SINGLE VIEW AP) Exam Date/Time: 12/29/2020 10:55 AM CLINICAL HISTORY: Shortness of breath MQ: XCPR_5 Comparison: 12/28/2020 RESULT: Lines, tubes, and devices: None. Lungs and pleura: Small left apical and lateral pneumothorax, mildly smaller than previous. Mild left lung base consolidation, likely related to left lower lung lesion in mild postbiopsy changes. No acute consolidation or pleural effusion. Cardiomediastinal silhouette: Stable cardiomediastinal silhouette. Other: . IMPRESSION: Improving small left pneumothorax. Medical Clerk: PSCB Transcribe Date/Time: Dec 29 2020 12:51P Dictated by : TAY MURGUIA MD This examination was interpreted and the report reviewed and electronically signed by: TAY MURGUIA MD on Dec 29 2020 12:53PM EST [id number] [facility] HNO ID: [id number] Author: Lora Quarles (Rt) Service: Radiology Author Type: Costume Shop Coordinator Type: Allied Health Filed: 12/28/2020 3:14 PM Note Text: Radiology Service Progress Note PATIENT NAME: Terri Burciaga DATE OF SERVICE: December 28, 2020 TIME: 3:14 PM PATIENT IDENTITY VERIFICATION COMPLETED USING TWO (2) IDENTIFIERS: Name and Date of confirmed by patient verbally. FALL SCREENING: Has the patient had 2 falls in the last year or 1 fall with injury or currently using an Ambulatory Assistive Device (Walker, Cane, Wheelchair, Crutches, etc.)? Inpatient: Screened on floor PATIENT GENDER DATA: Female. status: : No status: NO. PATIENT RELEVANT IMPLANT DATA REVIEWED: Not Applicable RADIOLOGY DEPARTMENT: General X-ray: Exam(s) Completed: Chest X-Ray PERIPHERAL IV DATA: Not applicable SIGNED BY: RT Robina December 28, 2020 3:14 PM [facility] HNO ID: [id number] Author: Lora Abdi (Rt) Service: ? Author Type: Costume Shop Coordinator Type: Allied Health Filed: 12/28/2020 11:51 AM Note Text: Radiology Service Progress Note PATIENT NAME: Terri Burciaga DATE OF SERVICE: December 28, 2020 TIME: 11:50 AM PATIENT IDENTITY VERIFICATION COMPLETED USING TWO (2) IDENTIFIERS: Name and Date of confirmed by patient verbally. FALL SCREENING: Has the patient had 2 falls in the last year or 1 fall with injury or currently using an Ambulatory Assistive Device (Walker, Cane, Wheelchair, Crutches, etc.)? Inpatient: Screened on floor PATIENT GENDER DATA: Female. status: : No status: NO. PATIENT RELEVANT IMPLANT DATA REVIEWED: Not Applicable RADIOLOGY DEPARTMENT: General X-ray: Exam(s) Completed: Chest X-Ray PERIPHERAL IV DATA: Not applicable SIGNED BY: RT Jin December 28, 2020 11:50 AM Normal [facility] CBCon 12-28-2020 Absolute nRBC <0.01 Normal <0.01 [facility] Comment on above: Performed By: #### C BC ####[facility] [address] [place] [address] Erythrocyte distribution width (RBC) [Ratio] 14.2 % Normal 11.5-15.0 [facility] Comment on above: Performed By: #### C BC ####[place] [address] Hematocrit (Bld) [Volume fraction] 44.2 % Normal 36.0-46.0 [facility] Comment on above: Performed By: #### C BC ####[place] [address] Hemoglobin (Bld) [Mass/Vol] 13.9 g/dL Normal 11.5-15.5 [facility] Comment on above: Performed By: #### C BC ####[place] [address] MCH (RBC) [Entitic mass] 27.9 pG Normal 26.0-34.0 [facility] Comment on above: Performed By: #### C BC ####[place] [id number] MCHC (RBC) [Mass/Vol] 31.4 g/dL Normal 30.5-36.0 [facility] Comment on above: Performed By: #### C BC ####[place] [address] MCV (RBC) [Entitic vol] 88.6 fL Normal 80.0-100.0 [facility] Comment on above: Performed By: #### C BC ####[place] [address] Platelet mean volume (Bld) [Entitic vol] 10.0 fL Normal 9.0-12.7 [facility] Comment on above: Performed By: #### C BC ####[place] [address] Platelets (Bld) [#/Vol] 193 10*3/uL Normal 150-400 [facility] Comment on above: Performed By: #### C BC ####[place] [address] RBC (Bld) [#/Vol] 4.99 10*6/uL Normal 3.90-5.20 [facility] Comment on above: Performed By: #### C BC ####[place] [address] WBC (Bld) [#/Vol] 7.36 10*3/uL Normal 3.70-11.00 [facility] Comment on above: Performed By: #### C BC ####[place] [address] Absolute nRBC <0.01 Normal <0.01 [facility] Comment on above: Performed By: #### C BC, PT ####[place] [address] Erythrocyte distribution width (RBC) [Ratio] 14.2 % Normal 11.5-15.0 [facility] Comment on above: Performed By: #### C BC, PT ####[place] [address] Hematocrit (Bld) [Volume fraction] 46.6 % High 36.0-46.0 [facility] Comment on above: Performed By: #### C BC, PT ####[place] [address] Hemoglobin (Bld) [Mass/Vol] 14.8 g/dL Normal 11.5-15.5 [facility] Comment on above: Performed By: #### C ANGELA, PT ####[facility] [address] [place] [phone] MCH (RBC) [Entitic mass] 27.9 pG Normal 26.0-34.0 [facility] Comment on above: Performed By: #### C ANGELA, PT ####[facility] [phone] MCHC (RBC) [Mass/Vol] 31.8 g/dL Normal 30.5-36.0 [facility] Comment on above: Performed By: #### C ANGELA, PT ####[facility] [address] [place] [phone] MCV (RBC) [Entitic vol] 87.9 fL Normal 80.0-100.0 [facility] Comment on above: Performed By: #### Joni MILLER, PT ####[facility] [address] [place] [phone] Platelet mean volume (Bld) [Entitic vol] 10.3 fL Normal 9.0-12.7 [facility] Comment on above: Performed By: #### Joni MILLER, PT ####[facility] [address] [place] [phone] Platelets (Bld) [#/Vol] 197 10*3/uL Normal 150-400 [facility] Comment on above: Performed By: #### C ANGELA, PT ####[facility] [phone] RBC (Bld) [#/Vol] 5.30 10*6/uL High 3.90-5.20 [facility] Comment on above: Performed By: #### C ANGELA, PT ####[facility] [phone] WBC (Bld) [#/Vol] 5.66 10*3/uL Normal 3.70-11.00 [facility] Comment on above: Performed By: #### C ANGELA, PT ####[facility] [phone] LUNG BIOPSY WO CONTRASTon 12-28-2020 CT LUNG BIOPSY WO CONTRAST * * *Final Report* * * DATE OF EXAM: Dec 28 2020 11:57AM [place] 0401 - CT LUNG BIOPSY WO CONTRAST / PROCEDURE REASON: lung nodule * * * * Physician Interpretation * * * * HISTORY: lung nodule left lung biopsy TECHNIQUE: Pre-procedure Sign-in: Safety Checklist Performed: Yes. The team confirmed the correct patient, correct site, site marking, correct procedure, and correct position. Timeout Time: 1100 Sign-out: Communication performed: Yes. 20 mL 1% lidocaine was infused for local anesthesia. CT Radiation dose: Integrated Dose-length product (DLP) for this visit = 1830.08 mGy*cm. CT Dose Reduction Employed: Automated exposure control(AEC) and iterative recon. MODERATE SEDATION: 0 milligrams of Versed and 50 micrograms of fentanyl were intravenously administered during this procedure. Continuous ECG, pulse oximetry and cardiopulmonary monitoring were performed by the interventional radiology nurse throughout the procedure during which IV sedation was administered. Total intraprocedure sedation time was 60 minutes. COMPARISON: 11/30/2020 CT chest RESULT: Nodule in question on the left lower lobe was biopsied under CT guidance through a 19 guiding needle which was placed under CT fluoroscopy guidance. A single 20-gauge core of tissue was taken. A small fragment of tissue was obtained. CT scanning afterwards showed a small to moderate left-sided pneumothorax. Patient was in no clinical distress and had 97% pulse oximetry on room air. It was elected to observe the patient. IMPRESSION: Left lung biopsy. Pneumothorax. Medical Clerk: MARTHA Transcribe Date/Time: Dec 28 2020 12:06P Dictated by : OREN ARCINIEGA MD This examination was interpreted and the report reviewed and electronically signed by: OREN ARCINIEGA MD on Dec 28 2020 12:11PM EST [id number] Normal [facility] HISTORY PHYSICALon HISTORY PHYSICAL HNO ID: [id number] Author: Johana Lagunas) [place] Service: Hospital Medicine Author Type: Nurse Practitioner Type: HANDP Filed: 12/28/2020 4:59 PM Note Text: Attestation signed by Delfin Hernández) Christiana at 01/03/2021 9:10 PM Attending Note I have personally reviewed the PA/OIL PIPELINE DISPATCHER note. Agree with above assessment and plan. Other additions or changes: None SIGNATURE: Delfin Villeda MD DATE: January 03, 2021 TIME: 9:10 PM DEPARTMENT OF HOSPITAL MEDICINE HISTORY AND PHYSICAL EXAM SERVICE DATE: 12/28/2020 SERVICE TIME: 4:06 PM Primary Care Physician: Andre Santana MD NIGHT AND WEEKEND COVERAGE: [employer] COVERAGE: Days: [phone], please page attending physician. Nights: [phone], please page [place] [facility] Night coverage pager [phone]. Subjective CHIEF COMPLAINT: Pneumothorax of left lung after biopsy HPI: Terri Burciaga is a 75 year old female with a PMHx significant of HTN, GERD, FRIEDA on CPAP former smoker ( 30PY, quit >20 years ago) and recent COVID pneumonia (positive test 10/06/20) who has been directly admitted from outpatient radiology for further observation and monitoring of a small left sided pneumothorax found on follow up CXR after a CT guided lung biopsy of a suspicious left lung nodule this afternoon. The lung nodule is currently being worked up by the patient's primary oil well service operator, Dr. Evans, who she saw most recently on 12/10. Of note, she had a PET scan completed 12/25 for this that did not reveal any specific neoplastic process but did note the small minimally hypermetabolic left lung nodule, probably benign by FDG PET criteria, but could not rule out low-grade malignancy. Follow-up CT scan of the chest was recommended in 2-3 months and lung biopsy was pursued. Prior to the biopsy she denied any infectious symptoms, including fever, chills or weight loss. She has no history of cancer, occupational exposure, animal exposure nor unusual hobbies. The CXR 3 hours post biopsy shows a persistent left pneumothorax with a 2.5cm apical intrapleural distance, slightly larger than the original study. She endorses mild increased shortness of breath from her baseline but is most bothered by diaphragmatic and left scapular discomfort. She denies chest pain, palpitations, abdominal pain, fever or chills. She remains hemodynamically stable and on room air. PAST MEDICAL HISTORY Diagnosis Date - Arrhythmia - Benign neoplasm of colon - Calculus of kidney - Chest pain, unspecified non cardiac - Esophageal reflux - Esophagitis, unspecified - History of recurrent UTIs - HYPERLIPIDEMIA NEC/NOS 03/16/2009 - HYPERTENSION NOS 03/10/2008 - Mental disorder - FRIEDA on CPAP - Osteopenia BMD 12/12/2011 PAST SURGICAL HISTORY [...] Artery Disease Father - Stroke Father - other (CABG) Father - Coronary Artery Disease Sister - Coronary Artery Disease Brother - Ischemic Heart Disease Paternal Grandfather - other (Peripheral Vascular Disease) Sister - Hypertension Sister - Hypertension Sister - Hypertension Brother - Hypertension Son Social History Tobacco Use - Smoking status: Former Smoker Packs/day: 1.50 Years: 20.00 Pack years: 30.00 Types: Cigarettes Quit date: 11/09/1980 Years since quittin.1 - Smokeless tobacco: Never Used - Tobacco comment: up to 3 PPD Substance Use Topics - Alcohol use: No - Drug use: No PRIOR TO ADMISSION MEDICATIONS: - niacin (NIACIN) 50 mg tablet, Take 50 mg by mouth daily with breakfast., Disp: , Rfl: , 12/27/2020 at 0800 - pyridoxine, vitamin B6, (VITAMIN B-6) 100 mg tablet, Take 100 mg by mouth once daily., Disp: , Rfl: , 12/27/2020 at 0800 - Magnesium 200 mg tab, Take 1 tablet by mouth once daily., Disp: , Rfl: , 12/27/2020 at 0800 - Garlic 100 mg tab, Take 1 tablet by mouth once daily., Disp: , Rfl: , 12/27/2020 at 0800 - losartan (COZAAR) 100 mg tablet, Take 1 tablet by mouth once daily., Disp: 90 tablet, Rfl: 3, 12/27/2020 at 0900 - Hydrochlorothiazide 12.5 mg capsule, Take 1 capsule by mouth once daily., Disp: 90 capsule, Rfl: 3, 12/27/2020 at 0800 - cloNIDine HCl (CATAPRES) 0.1 mg tablet, Take 1 tablet by mouth daily at bedtime., Disp: 90 tablet, Rfl: 3, 12/27/2020 at 2200 - esomeprazole (NEXIUM) 20 mg capsule, Take 1 capsule by mouth DAILY (6 AM)., Disp: , Rfl: , 12/27/2020 at 0600 - potassium chloride ER (K-DUR, KLOR-CON) 20 mEq tablet, Take 1 tablet by mouth twice daily., Disp: 180 tablet, Rfl: 3, 12/27/2020 at 2200 - BIOTIN ORAL, Take by mouth., Disp: , Rfl: , 12/27/2020 at 0800 - Zinc 50 mg tab, Take by mouth., Disp: , Rfl: , 12/27/2020 at 0800 - diazePAM (VALIUM) 2 mg tablet, Take 1 mg by mouth as needed. , Disp: , Rfl: - COMPOUNDED PRESCRIPTION, Speed ankle brace (with wrap around ties) S93.402A Sprain of ligament of left ankle, initial encounter M79.672 Pain of left heel, Disp: 1 Each, Rfl: 0, 12/27/2020 at 0800 - diphenhydrAMINE HCl (CHILDREN'S BENADRYL ALLERGY) 12.5 mg chewable tablet, Take 12.5 mg by mouth at bedtime as needed., Disp: , Rfl: - Cholecalciferol, Vitamin D3, (VITAMIN D) 1,000 unit cap, Take 1,000 Units by mouth once daily., Disp: , Rfl: , 12/27/2020 at 0800 ALLERGIES Allergen Reactions - Cigarette Smoke [Ot* Cough, Itching, Shortness of Breath - Adhesive Tape (Deyanira* Itching - Aleve [Naproxen Sod* GI Upset - Ativan [Lorazepam] Other: See Comments depression - Cats - Lopressor [Metoprol* Mental Status Change - Nickel Rash - Norvasc [Amlodipine* Swelling Swelling to feet and ankles - Sulfa (Sulfonamide * severe headache - Vioxx [Rofecoxib] GI Upset REVIEW OF SYSTEM: GENERAL: No weight loss, malaise or fevers HEENT: Negative for frequent or significant headaches, No changes in hearing or vision, no nose bleeds or other nasal problems NECK: Negative for lumps, goiter, pain and significant neck swelling RESPIRATORY: Pleuritic chest pain, Shortness of breath CARDIOVASCULAR: Negative for chest pain, leg swelling, hypertension, CHF or palpitations GI: No nausea, vomiting, or diarrhea : No history of dysuria, frequency or incontinence MUSCULOSKELETAL: Negative for joint pain or swelling, back pain or muscle pain SKIN: Negative for lesions, rash, and itching PSYCH: Negative for sleep disturbance, mood disorder and recent psychosocial stressors HEMATOLOGY/LYMPHOLOGY: Negative for prolonged bleeding, bruising easily or swollen nodes ENDOCRINE: Negative for cold or heat intolerance, polyuria, polydipsia and goiter NEURO: No history of headaches, syncope, paralysis, seizures or tremors Objective PHYSICAL EXAM: BP 149/72 Pulse 88 Temp (Src) 97.7 (Oral) Resp 18 Ht 4' 10 (1.47m) Wt 185 lb (83.9kg) SpO2 95% BMI 38.68 kg/(m2). O2 Therapy: Room Air Physical Exam Performed: GENERAL: Alert, no distress, cooperative SKIN: Skin color, texture, turgor normal. No rashes or lesions. HEAD/SINUSES: No significant findings NECK: Supple, No thyromegaly BACK: Back symmetric, Normal curvature. Left biopsy site dressing CDI. LUNGS: Lungs clear to auscultation CARDIAC: RRR; no rubs, murmurs, or gallops ABDOMEN: Abdomen soft, non-tender, BS normal, No masses or organomegaly EXTREMITIES: Extremities normal, no deformities, edema, clubbing or skin discoloration. NEURO: Grossly normal cognition, motor function, and cranial nerves III-XII PULSES: 2+ radial, 2+ dorsalis pedis Lines, Drains, and Airways Line Peripheral 12/28/20 0910 Short Right Hand 20 Gauge less than 1 day Reviewed lines and needs to be continued: REASONS: Telemetry DATA: Diagnostic tests reviewed for today's visit: Most recent labs and imaging results. Assessment/Plan Pneumothorax of left lung after biopsy Nodule of left lung -- Small L pneumothorax on CXR following biopsy this afternoon -- Associated with mild increase in baseline shortness of breath -- Currently hemodynamically stable and on room air -- Repeat CXR in AM, obtain STAT if symptomatic -- May need chest tube in significantly worse -- Maintain continuous telemetry monitoring -- As needed pain control -- Pulm consult in AM Essential hypertension -- Stable, continue home meds with holding parameters Esophageal reflux -- Stable, resume PPI Mixed hyperlipidemia -- Most recent lipid panel noted, continue niacin FRIEDA (obstructive sleep apnea) -- OK to use home CPAP in house Obesity, Class II, BMI 35-39.9 -- Outpatient weight management Medication and Non-Pharmacologic VTE Prophylaxis/Anticoagulants VTE Prophylaxis: VTE prophylaxis appropriate Disposition: Home once medically cleared Plan of care discussed with: Patient, RN and Attending Plan communicated to: Family : Daughter, Amy, at bedside SIGNATURE: Johana Khan APRN.CNP PATIENT NAME: Terri Garza Sissy DATE: December 28, 2020 TIME: 4:06 PM Normal [facility] NURSING PROGon 12-28-2020 NURSING PROG HNO ID: [id number] Author: Cristela (Rn) NYLA Mcfadden Service: Nursing Author Type: Registered Nurse Type: Nursing Progress Note Filed: 12/29/2020 5:06 AM Note Text: Nursing Progress Note Patient Name: Terri Garza Sissy Patient Location: [id number] Daily Note: 1900 Assumed care for patient at this time. Patient observed resting in bed with eyes open and easy respirations. Remains on RA. Reports pain has decreased from previous, denies need for intervention at this time. Lung sounds diminished in L lower lobe. NSR on tele. 2100 Patient reports she feels bubbling in her lung upon inspiration. On auscultation, crepitus noted, otherwise diminished. Hospitalist notified and told it is to be expected. Patient reports the bubbling feeling stopped within 15 minutes. VS obtained and stable. Will notify if patient condition worsens. Remains on RA. NSR on tele. 2300 Patient observed resting in bed with eyes closed and easy respirations. Remains on RA. No observation of pain at this time. NSR on tele. 0100 Patient observed resting in bed with eyes closed and easy respirations. Remains on RA. No observation of pain at this time. NSR on tele. 0115 Patient up to BR, C/O left sided CP, will medicate per MD order for pain. Remains NSR on tele 0300 Patient observed resting in bed with eyes closed and easy respirations. Remains on RA. No observation of pain at this time. NSR on tele. 0500 Patient observed resting in bed with eyes closed and easy respirations. Remains on RA. No observation of pain at this time. NSR on tele. This note was completed by: Cristela Mcfadden RN [facility] NURSING PROG HNO ID: [id number] Author: Luis (Nyla) NYLA Lawrence Service: Nursing Author Type: Registered Nurse Type: Nursing Progress Note Filed: 12/28/2020 5:58 PM Note Text: Nursing Progress Note Patient Name: Terri Burciaga Patient Location: [facility]317/[id number] Daily Note: Received patient from [place] [address], [facility]. DSD intact to posterior left back with drainage/reddness. Denies any SOB, but does c/o pain left sided chest 610-medicated prior arrival to floor. Diet menu provided, daughter @ bedside. LS-essentially CTA with diminished posterior left side. 1630-No chg in assessment-resting in bed eating dinner with daughter @ bedside AND CIRCULAR RIPSAW OPERATOR visited for admission orders-no needs assessed, will medicate for pain 1830-No chg in assessment-pain now 5/10. Eating dinner in bed-no needs assessed. Denies any SOB, drsg DANDI to left back. Resting in bed watching TV This note was completed by: Luis Lawrence RN [facility] NURSING PROG HNO ID: [id number] Author: Neela (Rn) NYLA Buck Service: Nursing Author Type: Registered Nurse Type: Nursing Progress Note Filed: 12/28/2020 1:07 PM Note Text: POST OP LEARNING RESPONSE INSTRUCTION PROVIDED TO: Patient METHOD OF INSTRUCTION: Individual instruction PATIENT / FAMILY RESPONSE: Information received as demonstrated by interest and questions FOLLOW-UP PLAN: Complete - No need for follow-up Follow-up in [facility] OPD in SUPPLEMENTAL MATERIAL: None REFERRAL (RECOMMENDATION): None Electronically Signed By: Neela Buck RN In Department: [facility] RADIOLOGY [facility] Protimeon 12-28-2020 PT Coag (PPP) [Time] 1.0 s Normal 0.9-1.3 [facility] Comment on above: Result Comment: Serena min K Antagonist (VKA) Therapeutic Range: INR 2 to 3 (Target INR of 2.5) Note: For patients treated with VKA drugs, such as warfarin, the [employer] 2012 Guideline recommends a therapeutic INR range of 2 to 3 (target INR of 2.5). This recommendation includes high-risk patients with antiphospholipid syndrome with previous arterial or venous thromboembolism, current-generation mechanical or bioprosthetic aortic heart valve replacement. Note: Patients with mechanical aortic valve replacement and additional risk factors for thromboembolic events (atrial fibrillation, previous thromboembolism, LV dysfunction, hypercoagulable conditions) or an older generation mechanical AVR (i.e., ball in-Cage) or any mechanical MVR should have a INR therapeutic range of 2.5 to 3.5 (target INR of 3). Trevon BROWNING, et al. Chest 2012, 141:7S-47S Leonidas KOVACS et al. [facility] 2017, 70: 252-289 Performed By: #### C BC, PT ####[facility] [address] [place], [place] [id number] PT Coag (PPP) [Time] 10.1 s Normal 9.7-13.0 [facility] Comment on above: Performed By: #### C BC, PT ####[facility] [phone] SURGICAL PATHOLOGYon 021 SURGICAL PATHOLOGY Specimen originated from [facility] Specimen #: [id number] Submitting Physician: OREN ARCINIEGA MD FINAL DIAGNOSIS Left lung, lower lobe nodule, biopsy - Single minute fragment of lung tissue with no significant pathologic changes. RADHA/rw 12/31/2020 COMMENT No granulomas or neoplasm are present. Meri Modi M.D. (Electronic Signature) SPECIMEN SUBMITTED A: LLL NODULE LUNG BIOPSY CLINICAL DATA HISTORY SMOKING, 20 YEARS AGO., LMP: 0 GROSS DESCRIPTION A. Received in formalin are three segments of cylindrical tissue aggregating to 0.7 x 0.4 x 0.1 cm, white and of a soft and friable consistency. Totally submitted in formalin in one cassette. Gross examination performed at [facility], [address] [place] [address] TTN 12/28/2020 6:28:58 PM Date of Report: 12/31/2020 Date of Procedure: 12/28/2020 Date of Receipt: 12/28/2020 Submitted by: OREN ARCINIEGA MD Additional Physician(s): Jacquie Evans M.D. Location: 3 S Diagnostic interpretation performed at [facility], [address] [place] [address]. CLIA Number: [id number] [facility] XR CHEST 1V FRONTALon 2020 XR CHEST 1V FRONTAL * * *Final Report* * * DATE OF EXAM: Dec 28 2020 2:55PM MDX 5290 - XR CHEST 1V FRONTAL / PROCEDURE REASON: Pneumothorax * * * * Physician Interpretation * * * * EXAMINATION: CHEST RADIOGRAPH (SINGLE VIEW AP OR PA) CLINICAL HISTORY: Pneumothorax MQ: XC1_5 Comparison: Same day at 1144 hours RESULT: Lines, tubes, and devices: None. Lungs and pleura: Persistent left pneumothorax with 2.5 cm apical intrapleural distance. Image guided biopsy of left lower lobe spiculated nodule performed today. Right lung essentially clear. Cardiomediastinal silhouette: Stable. Other: Left convex upper thoracic curvature. IMPRESSION: Persistent left pneumothorax with 2.5 cm apical intrapleural distance, slightly larger than previous. Medical Clerk: [employer] Transcribe Date/Time: Dec 28 2020 3:18P Dictated by : Greg GONZALES MD This examination was interpreted and the report reviewed and electronically signed by: Greg GONZALES MD on Dec 28 2020 3:25PM EST [id number] [facility] XR CHEST 1V FRONTAL PORTon 0 12-28-2020 XR CHEST 1V FRONTAL PORT * * *Final Report* * * DATE OF EXAM: Dec 28 2020 11:49AM MDX 5376 - XR CHEST 1V FRONTAL PORT / PROCEDURE REASON: Pneumothorax * * * * Physician Interpretation * * * * EXAMINATION: CHEST RADIOGRAPH (PORTABLE SINGLE VIEW AP) Exam Date/Time: 12/28/2020 11:49 AM CLINICAL HISTORY: Pneumothorax MQ: XCPR_5 Comparison: January 05, 2017 RESULT: Lines, tubes, and devices: None. Lungs and pleura: Hemorrhage is noted in the area of biopsy. Small left-sided pneumothorax. Cardiomediastinal silhouette: Stable cardiomediastinal silhouette. Other: . IMPRESSION: Small left-sided pneumothorax. Continued follow-up with chest radiographs is recommended to document stability. Minimal hemorrhage in the area of the biopsy. Medical Clerk: [employer] Transcribe Date/Time: Dec 28 2020 11:51A Dictated by : BRIANNA HAAS MD This examination was interpreted and the report reviewed and electronically signed by: BRIANNA HAAS MD on Dec 28 2020 11:59AM EST [id number] [facility] NM PET/CT SKULL-THIGH INITon 12-25-2020 NM PET/CT SKULL-THIGH INIT * * *Final Report* * * DATE OF EXAM: Dec 25 2020 12:12PM MDP 0060 - NM PET/CT SKULL-THIGH INIT / PROCEDURE REASON: * * * * Physician Interpretation * * * * EXAMINATION: REGIONAL FDG PET/CT SCAN: (12/25/2020 2:06 PM) HISTORY: 75 years old Female with lung nodule. INDICATION: Study performed for initial treatment strategy. TECHNIQUE: F18-FDG administered IV was followed about 60 minutes later by PET imaging from skull base to proximal thigh. Free breathing low dose CT was performed without contrast for attenuation correction and anatomic localization. FDG radionuclide dose: 11.[address] Dose-Length Product (DLP): 446 mGy*cm CT Dose Reduction Employed: Automatic exposure control used (AED) COMPARISON: None available CORRELATION: CT scan of the chest dated 11/30/2020. Ultrasound of the right upper quadrant dated 11/30/2020. RESULT: For reference maximum SUV values: Mediastinal blood pool 3.5. Background Liver: 3.8 NECK: Physiologic uptake seen in the visualized brain, parapharyngeal soft tissues, base of tongue, vocal cords, and salivary glands. No hypermetabolic cervical lymphadenopathy or hypermetabolic masses. No focal hypermetabolic thyroid lesion. CHEST: Physiologic uptake in the heart and mediastinal blood pool. Lungs, tracheobronchial tree and pleura: An ill-defined nodular opacity, having maximum SUV of 1.9 is identified in the anterior aspect of the left lower lobe, measuring approximately 1.5 x 1.1 cm (series 3, image 110). This nodule is relatively stable compared to the previous CT scan, allowing for the difference in technique and positioning. Scattered small amount of patchy and linear opacities in the bilateral lungs, likely atelectasis and/or scarring. Please note that PET/CT is not sensitive for pulmonary nodules less than 8 mm. Mediastinum and Lymph nodes: No hypermetabolic mediastinal lymphadenopathy. No definite hilar lymphadenopathy. Uptake noted in the bilateral zenaida, likely of within the vasculature/blood pool. No mediastinal mass. Chest wall and axilla: No hypermetabolic lesions. ABDOMEN AND PELVIS: Physiologic uptake seen in the and GI tracts. Liver: No hypermetabolic mass. Biliary: No bile duct dilation. Spleen: No hypermetabolic mass. No splenomegaly. Multiple calcifications are noted within the spleen, compatible with calcified granulomas. Pancreas: No hypermetabolic mass. Adrenals: No hypermetabolic lesions. Kidneys: No right or left hydronephrosis. No right or left hypermetabolic renal lesions. Small calcifications in the lower right kidney, likely a nonobstructing renal calculi. GI tract: No dilation or wall thickening. Diverticulosis of the colon. No CT evidence of diverticulitis. Lymph nodes: No hypermetabolic abdominal or pelvic lymphadenopathy. Mesentery/Peritoneum: No ascites or hypermetabolic mass lesions. Vasculature: Vascular patency cannot be assessed due to lack of IV contrast. There are atherosclerotic calcifications without aneurysmal dilation. Pelvis: No hypermetabolic mass, ascites or fluid collection. BONES AND EXTREMITIES: No suspicious FDG avid foci are detected. The imaged portions of the skeleton disclose age-related degenerative changes, with no detectable destructive lytic or sclerotic lesions to suggest metastases. - IMPRESSION: 1. NECK: No FDG avid neoplastic process. No mass, adenopathy, or fluid collection. 2. CHEST: Small minimally hypermetabolic left lung nodule, probably benign by FDG PET criteria due to the relatively low level FDG uptake, however please note that low-grade malignancy can have similar appearance and uptake. Follow-up CT scan of the chest is recommended in 2-3 months. 3. ABDOMEN/PELVIS: No FDG avid neoplastic process. No mass, adenopathy, or fluid collection. 4. EXTREMITIES/SKELETON: No FDG avid osseous process. No destructive/traumatic bony abnormality. Medical Clerk: PSCB Transcribe Date/Time: Dec 25 2020 2:06P Dictated by : SAJAN GERARDO MD This examination was interpreted and the report reviewed and electronically signed by: SAJAN GERARDO MD on Dec 25 2020 2:26PM EST [id number] Normal [facility] PROGRESSon 12-25-2020 PROGRESS HNO ID: [id number] Author: Lora Colvin (Rt) Service: Nuclear Medicine Author Type: Costume Shop Coordinator Type: Progress Notes Filed: 12/25/2020 11:15 AM Note Text: RADIOLOGY SERVICE PROGRESS NOTE SERVICE DATE: 12/25/2020 SERVICE TIME: 11:15 AM PATIENT IDENTITY VERIFICATION COMPLETED USING TWO (2) STANDARD IDENTIFIERS: Name and Date of confirmed by patient verbally DIAGNOSTIC CT PERFORMED: No IV SITE: Ambulatory: NM only - direct IV injection in the Left antecubital site POST EXAM PIV STATUS: Not applicable PROCEDURE TYPE: NM INJECT: PET/CT BODY SCAN. 11.5 mCi F18 FDG. No other medications given.. ADMINISTRATION TIME: 1105 PATIENT DISCHARGED TO: Ambulatory patient, left [place] department area. A Diagnostic radioactive procedure has taken place, with no further precautions necessary other than routine body substance precautions. More information regarding radiation safety can be found using this link: [email or web address]-%20Diagnostic%20Nuclear% 20Medicine%20Procedures.pdf SIGNATURE: RT CHI PATIENT NAME: Terri Burciaga DATE: December 25, 2020 TIME: 11:15 AM PAGER/CONTACT #: [facility] HOSPon 12-11-2020 HOSP Patient:Terri Burciaga MRN: Height:4' 10(1.473 m) Weight:185 lb (83.915 kg) Outpatient Medications as of 12/28/20: CPAP niacin (NIACIN) 50 mg tablet pyridoxine, vitamin B6, (VITAMIN B-6) 100 mg tablet Magnesium 200 mg tab Garlic 100 mg tab Zinc 50 mg tab diazePAM (VALIUM) 2 mg tablet nitroglycerin sublingual (NITROQUICK) 0.4 mg SL tablet losartan (COZAAR) 100 mg tablet Hydrochlorothiazide 12.5 mg capsule cloNIDine HCl (CATAPRES) 0.1 mg tablet esomeprazole (NEXIUM) 20 mg capsule potassium chloride ER (K-DUR, KLOR-CON) 20 mEq tablet COMPOUNDED PRESCRIPTION BIOTIN ORAL diphenhydrAMINE HCl (CHILDREN'S BENADRYL ALLERGY) 12.5 mg chewable tablet Cholecalciferol, Vitamin D3, (VITAMIN D) 1,000 unit cap Admission/Clinic Administered Medications as of 12/28/20: Patient has no admission medications. 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] Combined forms of age-related cataract of both eyes [H25.813] Vitreous floaters of both eyes [H43.393] CKD (chronic kidney disease) stage 3, GFR 30-59 ml/min (HCC) [N18.30] Meibomian gland dysfunction (MGD) of upper and lower lids of both eyes [H02.88A, H02.88B] Punctate keratitis, 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] FRIEDA (obstructive sleep apnea) [G47.33] Lung nodule [R91.1] Gallstones [K80.20] 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] Allergies: cigarette smoke [Other] Adhesive Tape (Rosins) Aleve [Naproxen Sodium] Ativan [Lorazepam] Cats Lopressor [Metoprolol Tartrate] Nickel Norvasc [Amlodipine Besylate] Sulfa (Sulfonamide Antibiotics) Vioxx [Rofecoxib] Date Verified: 12/28/20 Lab Values Lab Value Units Date High Low DRE* 46.6 % 12/28/2020 46.0 36.0 Progress Notes (RADIO PET CT [facility]): RT CHI, Tech 12/25/2020 11:15 AM Signed RADIOLOGY SERVICE PROGRESS NOTE SERVICE DATE: 12/25/2020 SERVICE TIME: 11:15 AM PATIENT IDENTITY VERIFICATION COMPLETED USING TWO (2) STANDARD IDENTIFIERS: Name and Date of confirmed by patient verbally DIAGNOSTIC CT PERFORMED: No IV SITE: Ambulatory: NM only - direct IV injection in the Left antecubital site POST EXAM PIV STATUS: Not applicable PROCEDURE TYPE: NM INJECT: PET/CT BODY SCAN. 11.5 mCi F18 FDG. No other medications given.. ADMINISTRATION TIME: 1105 PATIENT DISCHARGED TO: Ambulatory patient, left [place] department area. A Diagnostic radioactive procedure has taken place, with no further precautions necessary other than routine body substance precautions. More information regarding radiation safety can be found using this link: [email or web address]%20-% 20Diagnostic%20Nuclear%20Med icine%20Procedures.pdf SIGNATURE: MAREN SHERIDAN, RT PATIENT NAME: Terri Burciaga DATE: December 25, 2020 TIME: 11:15 AM PAGER/CONTACT #: Progress Notes (NEUR SLEEP [facility]): Angelika Young 12/12/2020 1:25 PM Signed Patient called stating her insurance company will need documentation that she is in compliance in order to have her equipment and her follow up in February with Elisa Cardona. Patient asked if you can please call her regarding this. HUY Alcaraz, RN, RN 12/12/2020 5:03 PM Signed Spoke with pt. She was concerned that her appt with Elisa did not fall within 31-90 day f/u requirement. Called [facility] and she was setup 11/19/20. Informed them that f/u appt was on 02/13. Crystal at [facility] stated she would document that and it is within the proper time frame. Called pt back and updated her that [facility] is aware of appt date and that it is within the 31-90 day window. Informed pt that visit has to be in person or virtual. Pt states that she cannot do a virtual so she will go to [place] for the appt. Changed pt's appt to in person at [place] in Epic. Normal [facility] BLOOD CULTURE, BACTERIALon 1 12-12-2019 BLOOD CULTURE, BACTERIAL PATIENT: TERRI BURCIAGA LOCATION: [facility] ROSAMARIA#: [id number] : 47 AGE: SEX: F ORDERED BY: MATTY FELIZ SOURCE: Blood COLLECTED: 10/11/20 18:17 ANTIBIOTICS AT [facility].: RECEIVED : 10/12/20 01:56 SITE: ANTECUBITAL R E S U L T S BLOOD CULTURE, BACTERIAL FINAL 10/17/20 05:42 No Growth at 1 days No Growth at 2 days No Growth at 3 days NO GROWTH - FINAL REPORT Normal [facility] Comment on above: Performed By: #### M G #### [address] [address] CBC AND DIFFERENTIALon 10-11 Basophils (Bld) [#/Vol] 0.00 10*3/uL Normal 0.00 - 0.10 [facility] Comment on above: Performed By: #### C BCDF #### [address] [address] Basophils/100 WBC (Bld) 0.4 % Normal 0.0 - 2.0 [facility] Comment on above: Performed By: #### C BCDF #### [address] [address] Eosinophils (Bld) [#/Vol] 0.00 10*3/uL Normal 0.00 - 0.40 [facility] Comment on above: Performed By: #### C BCDF #### [address] [address] Eosinophils/100 WBC (Bld) 0.1 % Normal 0.0 - 6.0 [facility] Comment on above: Performed By: #### C BCDF #### [address] [address] Erythrocyte distribution width (RBC) [Ratio] 13.6 % Normal 11.5 - 14.5 [facility] Comment on above: Performed By: #### C BCDF #### [address] [address] Hematocrit (Bld) [Volume fraction] 46.5 % High 36.0 - 46.0 [facility] Comment on above: Performed By: #### C BCDF #### [address] [address] Hemoglobin (Bld) [Mass/Vol] 15.3 g/dL Normal 12.0 - 16.0 [facility] Comment on above: Performed By: #### C BCDF #### [address] [address] Lymphocytes (Bld) [#/Vol] 0.80 10*3/uL Normal 0.80 - 3.00 [facility] Comment on above: Performed By: #### C BCDF #### [address] [address] Lymphocytes/100 WBC (Bld) 15.8 % Normal 13.0 - 44.0 [facility] Comment on above: Performed By: #### C BCDF #### [address] [address] MCHC (RBC) [Mass/Vol] 33.0 g/dL Normal 32.0 - 36.0 [facility] Comment on above: Performed By: #### C BCDF #### [address] [address] MCV (RBC) [Entitic vol] 85 fL Normal 80 - 100 [facility] Comment on above: Performed By: #### C BCDF #### [address] [address] Monocytes (Bld) [#/Vol] 0.80 10*3/uL Normal 0.05 - 0.80 [facility] Comment on above: Performed By: #### C BCDF #### [address] [address] Monocytes/100 WBC (Bld) 15.3 % Normal 2.0 - 10.0 [facility] Comment on above: Performed By: #### C BCDF #### [address] [address] Neutrophils (Bld) [#/Vol] 3.40 10*3/uL Normal 1.60 - 5.50 [facility] Comment on above: Result Comment: Perc ent differential counts (%) should be interpreted in the context of the absolute cell counts (cells/L). Performed By: #### C BCDF #### [address] [address] Neutrophils/100 WBC (Bld) 68.4 % Normal 40.0 - 80.0 [facility] Comment on above: Performed By: #### C BCDF #### [address] [address] Nucleated RBC/100 WBC (Bld) [Ratio] 0.3 /100 WBC Normal [facility] Comment on above: Performed By: #### C BCDF #### [address] [address] Platelets (Bld) [#/Vol] 166 10*3/uL Normal 150 - 450 [facility] Comment on above: Performed By: #### C BCDF #### [address] [address] RBC (Bld) [#/Vol] 5.45 x10E12/L High 4.00 - 5.20 [facility] Comment on above: Performed By: #### C BCDF #### [address] [address] WBC (Bld) [#/Vol] 5.0 10*3/uL Normal 4.4 - 11.3 [facility] Comment on above: Performed By: #### C BCDF #### [address] [address] COMPREHENSIVE PANELon 2019 Albumin [Mass/Vol] 4.0 g/dL Normal 3.4 - 5.0 [facility] Comment on above: Performed By: #### C MP #### [address] [address] ALP [Catalytic activity/Vol] 91 U/L Normal 33 - 136 [facility] Comment on above: Performed By: #### C MP #### [address] [address] ALT [Catalytic activity/Vol] 30 U/L Normal 7 - 45 [facility] Comment on above: Result Comment: Miriam ents treated with Sulfasalazine may generate falsely decreased results for ALT. Performed By: #### C MP #### [address] [address] Anion gap [Moles/Vol] 14 mmol/L Normal 10 - 20 [facility] Comment on above: Performed By: #### C MP #### [address] [address] AST [Catalytic activity/Vol] 23 U/L Normal 9 - 39 [facility] Comment on above: Performed By: #### C MP #### [address] [address] Bilirubin [Mass/Vol] 0.6 mg/dL Normal 0.0 - 1.2 [facility] Comment on above: Performed By: #### C MP #### [address] [address] Calcium [Mass/Vol] 9.4 mg/dL Normal 8.6 - 10.3 [facility] Comment on above: Performed By: #### C MP #### [address] [address] Chloride [Moles/Vol] 101 mmol/L Normal 98 - 107 [facility] Comment on above: Performed By: #### C MP #### [address] [address] Creatinine [Mass/Vol] 1.01 mg/dL Normal 0.50 - 1.05 [facility] Comment on above: Performed By: #### C MP #### [address] [address] GFR- AM. 65 mL/min/1.73m2 Normal >60 [facility] Comment on above: Result Comment: CALC ULATIONS OF ESTIMATED GFR ARE PERFORMED USING THE MDRD STUDY EQUATION FOR THE IDMS-TRACEABLE CREATININE METHODS. CLIN CHEM 2007;53:766-72 Performed By: #### C MP #### [address] [address] GFR-NON AM. 54 mL/min/1.73m2 Abnormal >60 [facility] Comment on above: Performed By: #### C MP #### [address] [address] Glucose [Mass/Vol] 110 mg/dL High 74 - 99 [facility] Comment on above: Performed By: #### C MP #### [address] [address] HCO3 (Bld) [Moles/Vol] 24 mmol/L Normal 21 - 32 [facility] Comment on above: Performed By: #### C MP #### [address] [address] Potassium [Moles/Vol] 3.4 mmol/L Low 3.5 - 5.3 [facility] Comment on above: Performed By: #### C MP #### [address] [address] Protein [Mass/Vol] 7.8 g/dL Normal 6.4 - 8.2 [facility] Comment on above: Performed By: #### C MP #### [address] [address] Sodium [Moles/Vol] 136 mmol/L Normal 136 - 145 [facility] Comment on above: Performed By: #### C MP #### [address] [address] Urea nitrogen [Mass/Vol] 18 mg/dL Normal 6 - 23 [facility] Comment on above: Performed By: #### C MP #### [address] [address] [address] ANGIO CHEST FOR PEon CT ANGIO CHEST FOR PE Patient Name: TERRI BURCIAGA STUDY: CT ANGIO CHEST FOR PE; 10/11/2020 9:17 pm INDICATION: tachy and sob. COMPARISON: CT chest 12/13/2012 ACCESSION NUMBER(S): [id number] ORDERING CLINICIAN: MATTY FELIZ TECHNIQUE: Contiguous axial images of the chest were obtained after the intravenous administration of 90 mL Omnipaque 350 using angiographic PE protocol. Coronal and sagittal reformatted images were reconstructed from the axial data. MIP images were created and reviewed. FINDINGS: MEDIASTINUM AND LYMPH NODES: There is slight bilateral hilar and subcarinal reactive lymph node enlargement. No enlarged axillary lymph nodes. No pneumomediastinum. VESSELS: Normal caliber aorta without evidence of dissection. Mild aortic atherosclerosis. No pulmonary embolism. HEART: Normal in size. Mild coronary artery calcifications. No significant pericardial effusion. LUNG, AIRWAYS, AND PLEURA: There is peripheral mixed ground-glass/consolidation in the anterior left upper lobe and posterior aspect of the right and left lower lobes suspicious for pneumonia. There is also left lower lobe central bronchovascular mixed solid/ground-glass opacity. Within the anterolateral aspect of the left lower lobe there is heterogeneous pulmonary nodule measuring 2.1 cm x 1.6 cm with irregular wall thickening and central fluid density surrounded by pulmonary scar. This is new from prior CT 12/13/2012. OSSEOUS STRUCTURES/CHEST WALL: No acute osseous abnormality. UPPER ABDOMEN/OTHER: Multiple too small to characterize hypodense lesions within the liver noted such as a 7 mm lesion in segment 2 and a 5 mm lesion in segment 8. Likely hepatic steatosis is present. Calcified gallstones plane. IMPRESSION: 1. Suspicious new 2.1 cm x 1.6 cm pulmonary nodule with irregular thick miranda and central low density concerning for cavitary nodule. Given that this is not consistent with a known complication of COVID-19 pneumonia and it is present arising within a pulmonary scar (a risk factors for lung cancer) this is concerning for a malignant lesion. Recommend follow-up with PETCT for additional assessment. 2. multifocal peripheral predominant mix consolidative and ground-glass opacities relatively characteristic of COVID-19 pneumonia. 3. No acute pulmonary embolism. 4. Nonspecific hypodense lesions in the liver that are too small to characterize. Nonemergent ultrasound would be able to assess whether these are cysts or solid lesions. Electronically signed by: JAKE NAPOLES MD [facility] LACTATEon 10-11-2020 Lactate [Moles/Vol] 1.1 mmol/L Normal 0.4 - 2.0 [facility] Comment on above: Result Comment: Dolores puncture immediately after or during the administration of Metamizole may lead to falsely low results. Testing should be performed immediately prior to Metamizole dosing. Performed By: #### L ACT #### [place] [address] Provider Note - ED v2on Provider Note - ED v2 Provider Note - ED v2: Chart Review: ED NOTES ED NOTES: HPI: Patient notes that she started with Covid-like symptoms approximately 8 days ago and was diagnosed Covid +5 days ago. She states that she has been feeling fine until about 1/2-hour prior to arrival when she suddenly noticed that her heart was going fast and she felt short of breath. She complains of pain in the right lateral chest that radiates through to her back. She denies any nausea vomiting or fever. ROS: All systems are negative other than as noted in HPI. Physical Exam I have reviewed the triage vital signs. Const: Well nourished, well developed, appears stated age, no acute distress, anxious Eyes: PERRL, EOM intact, no conjunctival injection, vision grossly normal HENT: Neck supple without meningismus , Moist mucous membranes, no pharyengeal swelling or exudate CV: Regular rate and rhythm, tachycardic warm, well-perfused extremities. Chest non tender RESP: Lungs clear bilaterally, Unlabored respiratory effort GI: soft, non-tender, non-distended, no masses : MSK: No gross deformities appreciated Back: Non tender, no pain with ROM Skin: Warm, dry. No rashes Neuro: Alert and oriented x4, GCS 15 , sports therapist II-XII grossly intact. Sensation and motor function of extremities grossly intact. Psych: Appropriate mood and affect. I have reviewed and confirmed nurses/medics notes for patient past, social and family history. Portions of this note were dictated by speech recognition. An attempt at proof reading was made to minimize errors. Minor errors in obiee obia solution architect may be present. HISTORY OF PRESENTING ILLNESS TERRI is a 74 year old Female and was seen by me at 11-Oct-2020 17:24 for a chief complaint of shortness of breath (Patient states she tested positive on Thursday, states Cassidy been feeling fine up until about 30 minutes I was sitting in my chair and my heart rate got real fast and I felt short of breath. Denies chest pain)(1). Triage Information: Most recent Vital Sign Value Date Temp (F): 99.7 10-11-2020 17:18 Temp (C): 37.6 10-11-2020 17:18 Heart Rate (beats/min): 128 10-11-2020 17:18 Respirations (breaths/min): 23 10-11-2020 17:18 SpO2 (%): 95 10-11-2020 17:18 BP Systolic (mm Hg): 161 10-11-2020 17:18 BP Diastolic (mm Hg): 97 10-11-2020 17:18 PAST MEDICAL HISTORY ATTESTATION: I have reviewed and confirmed nurse's/medic's notes for patient's medications, allergies, medical history, and surgical history ALLERGIES/INTOLERANCES: Allergy Allergen: Lopressor Type: Drug Reaction: Other Allergen: Vioxx Type: Drug Reaction: Other HEALTH HISTORY: No documented data. OUTPATIENT MEDICATIONS: Home Medications Review Status for Reconciliation: N/A Med Status: Patient Currently Takes Medications Drug Name: omeprazole 20 mg oral delayed release capsule Instructions: 1 cap(s) orally once a day Drug Name: cloNIDine 0.1 mg oral tablet Instructions: 1 tab(s) orally once a day Drug Name: losartan 100 mg oral tablet Instructions: 1 tab(s) orally once a day Drug Name: hydroCHLOROthiazide 12.5 mg oral capsule Instructions: 1 cap(s) orally once a day Drug Name: potassium chloride 20 mEq oral tablet, extended release Instructions: 1 tab(s) orally once a day SIGNIFICANT EVENTS: Past Medical History Description:Hypertension (HTN) Description:KIDNE RESULTS/VITAL SIGNS RESULTS: Recent Lab Results: I have reviewed these laboratory results: Complete Blood Count + Differential 11-Oct-2020 18:17:00 ResultValue White Blood Cell Count 5.0 Nucleated Erythrocyte Count 0.3 Red Blood Cell Count 5.45 H HGB 15.3 HCT 46.5 H MCV 85 MCHC 33.0 PLT 166 RDW-CV 13.6 Neutrophil % 68.4 Lymphocyte % 15.8 Monocyte % 15.3 Eosinophil % 0.1 Basophil % 0.4 Neutrophil Count 3.40 Lymphocyte Count 0.80 Monocyte Count 0.80 Eosinophil Count 0.00 Basophil Count 0.00 Comprehensive Metabolic Panel 11-Oct-2020 18:17:00 ResultValue Glucose, Serum 110 H NA 136 K 3.4 L CL 101 Bicarbonate, Serum 24 Anion Gap, Serum 14 BUN 18 CREAT 1.01 GFR-Non 54 A GFR- 65 Calcium, Serum 9.4 ALB 4.0 ALKP 91 T Pro 7.8 T Bili 0.6 Alanine Aminotransferase, Serum 30 Aspartate Transaminase, Serum 23 Troponin I, Serum 11-Oct-2020 18:17:00 ResultValue Troponin I, Serum <0.02 Lactate, Level 11-Oct-2020 18:17:00 ResultValue Lactate, Level 1.1 Radiology Results: Impression: 1. Suspicious new 2.1 cm x 1.6 cm pulmonary nodule with irregular thick miranda and central low density concerning for cavitary nodule. Given that this is not consistent with a known complication of COVID-19 pneumonia and it is present arising within a pulmonary scar (a risk factors for lung cancer) this is concerning for a malignant lesion. Recommend follow-up with PETCT for additional assessment. 2. multifocal peripheral predominant mix consolidative and ground-glass opacities relatively characteristic of COVID-19 pneumonia. 3. No acute pulmonary embolism. 4. Nonspecific hypodense lesions in the liver that are too small to characterize. Nonemergent ultrasound would be able to assess whether these are cysts or solid lesions. CT Angio Chest for PE [Oct 11 2020 10:17PM] VITAL SIGNS: T PRBP SpO2O2(LPM) %FiO2 Method 11-Oct-2020 22:27:[id number] 94 room air, no respiratory support 11-Oct-2020 21:40:[id number]/63 94 room air, no respiratory support 11-Oct-2020 19:35:[id number]/85 96 room air, no respiratory support 11-Oct-2020 18:25:[id number]/82 96 room air, no respiratory support 11-Oct-2020 17:18:[id number]/97 95 EKG INTERPRETATION #1: Impression: EKG performed at 1722 shows sinus tachycardia with a rate of 117. ST elevations or depressions. MEDICAL DECISION MAKING/ED COURSE MDM/ED COURSE: 2299-final results reviewed with patient. Patient was hydrated with a liter of fluids and her heart rate is now holding approximately 90. Lab work was unremarkable and CTA chest showed no PE however it did note a pulmonary nodule. Patient notes that this was known to her and has been having follow-up. Patient discharged home as noted below. YOUR WORK-UP IN THE EMERGENCY DEPARTMENT TODAY DID NOT SHOW ANY CONCERNING ISSUES WITH NORMAL LAB WORK. THE CAT SCAN OF YOUR CHEST DID NOT SHOW ANY SIGN OF A BLOOD CLOT. AFTER IV FLUIDS YOUR HEART RATE HAS RETURNED TO A MORE NORMAL LEVEL AND AT THIS POINT I FEEL THAT YOU ARE STABLE FOR DISCHARGE HOME. I RECOMMEND THAT YOU CONTINUE TO GET PLENTY OF REST AND FLUIDS AND FOLLOW-UP CLOSELY WITH YOUR FAMILY DOCTOR. PLEASE FEEL FREE OTHERWISE TO RETURN TO THE NEAREST ER FOR ANY NEW OR WORSENING CONCERNS. CLINICAL IMPRESSION Diagnosis/Annotation: ED Dx Name:COVID-19 Code:U07.1 Disposition: discharged Type: home ATTESTATION CRITICAL CARE TIME Is this a critically ill patient: no Electronic Signatures: Matty Feliz I ([facility]) (Signed 11-Oct-2020 23:00) Authored: ED Notes, HPI, PMH, Results/Vital Signs, EKG, MDM/ED Course, Clinical Impression, Attestation, Chart Review, Scores Last Updated: 11-Oct-2020 23:00 by Matty Feliz I ([facility]) References: 1. Data Referenced From Triage - ED 11-Oct-2020 17:18 [facility] Risk Screen - Adult Emergenc yon 10-11-2020 Risk Screen - Adult Emergency Preferred Language: Preferred Language: Preferred Language for Discussing Health Care (patient/designee)Bangladeshi Advanced Directives: Advance Directive/DNRno Advance Directive Information Givenpatient/family declined Family Violence Adult: Abuse Screen: Are you or have you been threatened or abused physically, emotionally, or sexually by anyoneno Learning Assessment (Patient): Learning Assessment (Patient): Patient is Able to be Assessed for Learningyes Factors Influencing Readiness to Learninterest in learning Factors that Impact Ability to Learnnone Devices/Methods Used to Communicatenone Learning Preferencesverbal instruction Cultural Considerationsnone Developmental Considerationsnone Pentecostalism Considerationsnone Learning Assessment (Other Learner): Learning Assessment (Other Learner): Other learner availableno Pressure Injury/TB/Substance: Pressure Injury: Pressure Injury Present on Admissionno Do you have a coughyes... Has your cough lasted longer than 2 weeksno Substance Use Current or Former Historynever: Cigarette/Tobacco, e-Cigarette/Vaping, Alcohol, Street Drugs Admission Risk Screen: Significant IndicatorsComplete CAGE: CAGE: Is this an injured patient at a Trauma Center [place] [place]): no Electronic Signatures: Sheridan Murdock ([facility]) (Signed 11-Oct-2020 17:24) Authored: Preferred Language, Advanced Directives, Family Violence Adult, Learning Assessment (Patient), Learning Assessment (Other Learner), Pressure Injury/TB/Substance, Pressure Injury, CAGE Last Updated: 11-Oct-2020 17:24 by Sheridan Murdock ([facility]) [facility] TROPONIN Ion 10-11-2020 Troponin I.cardiac [Mass/Vol] ng/mL Normal 0.00 - 0.03 [facility] Comment on above: Result Comment: LESS THAN 0.04 NG/ML: NEGATIVE REPEAT TESTING IN THREE TO SIX HOURS IF CLINICALLY INDICATED. 0.04 - 0.5 NG/ML: CONSISTENT WITH POSSIBLE CARDIAC DAMAGE AND POSSIBLE INCREASED CLINICAL RISK. SERIAL MEASUREMENTS MAY HELP ASSESS EXTENT OF MYOCARDIAL DAMAGE. >0.5 NG/ML: CONSISTENT WITH CARDIAC DAMAGE, INCREASED CLINICAL RISK AND MYOCARDIAL INFARCTION. SERIAL MEASUREMENTS MAY HELP ASSESS EXTENT OF MYOCARDIAL DAMAGE. . Note: Troponin I testing is performed using different testing methodology at [facility] than at other [facility]. Direct result comparisons should only be made within the same method. Performed By: #### T ROP2 #### [place] [id number] [place] [id number] Triage - EDon 10-11-2020 Triage - ED Chart Review: PRIMARY ASSESSMENT TERRI BURCIAGA's primary assessment is Within Defined Limits. The airway is open and patent. Breathing spontaneous and unlabored with clear breath sounds bilaterally. Circulation is normal with good peripheral pulses. Skin is warm and dry and color is normal for race. ARRIVAL INFORMATION Means of Arrival: Ambulatory Mode of Arrival: private vehicle Arrival From: home Accompanied By: self Language: Spoken Language Preferred: Bangladeshi CHIEF COMPLAINT TERRI BURCIAGA is a Female patient with a chief complaint of shortness of breath (Patient states she tested positive on Thursday, states Cassidy been feeling fine up until about 30 minutes I was sitting in my chair and my heart rate got real fast and I felt short of breath. Denies chest pain). Triage Date/Time: 11-Oct-2020 17:18 Pain Rating (0-10): 0 = None Vital Signs: Temperature: 99.7F ( 37.6C) taken oral Blood Pressure: 161/97 Mean: Heart Rate: 128 Respiratory Rate: 23 Pulse Oximetry: 95% Height: 5 feet 0.00 inches. 152.4 CM Weight: 180.3 pounds. Calculated 81.8 kg. (stated) Calculated BMI (kg/m2): 35.219 Calculated BSA (m2) 1.86 Nadine Coma Scale: Best Eye Response: (E4) spontaneous Best Motor Response: (M6) obeys commands Best Verbal Response: (V5) oriented Nadine Score: 15 Allergies: yes Mask applied: yes Patient has homicidal thoughts: no MAILE: 3V Risk Screens Suicide Risk Screen In the Past Month: Have you wished you were or wished you could go to sleep and not wake up no In the Past Month: Have you had any actual thoughts of killing yourself no In Your Lifetime: Have you ever done anything, started to do anything, or prepared to do anything to end your life no Moya Fall Scale Screening Has the patient fallen before (or is the patient in the ED as a result of a fall) has not had a fall Does the patient have an impaired gait does not have impaired gait Is the patient cognitively impaired not cognitively impaired Interventions: Moya Fall Interventions: LOW INTERVENTIONS: *patient oriented to surroundings and call system, * patient/family falls education completed and documented, *patients fall status communicated during bedside handoff, *whiteboard updated, *mode of toileting discussed with patient, *bed in low position with brakes locked, *call light in reach, * non-skid footwear TRAVEL HISTORY Travel History Coronavirus Screening: COVID positive within the last 13 days Travel Exposure History: NO travel to International locations in the past 30 days PAIN Pain Scale Used: SHEY Pain Rating (0-10): 0 = None Past Medical History: Past Medical History Reviewedyes Electronic Signatures: Sheridan Murdock ([place]) (Signed 11-Oct-2020 17:23) Entered: Risk Screens, Pain, Arrival, ABCD, Travel History, Chart Review, Scores, Past Medical History Authored: Quick Triage, Risk Screens, Pain, Arrival, ABCD, Travel History, Chart Review, Scores, Past Medical History Last Updated: 11-Oct-2020 17:23 by Sheridan Murdock (RN) [facility] CT CHEST W IVCON PEon 2019 CT CHEST W IVCON PE * * *Final Report* * * DATE OF EXAM: Apr 23 2020 6:42PM [facility] 0540 - CT CHEST W IVCON PE / PROCEDURE REASON: Chest pain, unspecified type * * * * Physician Interpretation * * * * CT OF CHEST, PE PROTOCOL CLINICAL HISTORY: patient feels like something is lodged in her distal throat/proximal chest also c/o upper back pain, NKI TECHNIQUE: Routine helical scanning through the chest was performed using the pulmonary embolism protocol following intravenous contrast administration. Contrast: IV: 100 ml of Visipaque [address] CT Radiation dose: Integrated Dose-length product (DLP) for this visit = 406.76 mGy*cm. CT Dose Reduction Employed: Automatic exposure control. COMPARISON: 01/05/2017 chest x-ray RESULT: Lower neck and chest wall: Negative. Subglottic tracheal airway in the cervical esophagus negative. No foreign body or obstructive changes. Pulmonary arteries: The pulmonary arteries show no filling defects or other findings to suggest pulmonary embolism. Mediastinum: Thoracic aorta is negative for dissection or focal aneurysm. No mediastinal masses, adenopathy or significant pericardial fluid. Also no pneumomediastinum or foreign body in the central airways. Incidental finding of calcified plaque along coronary artery branches. Lungs/Pleura: Localized parenchymal stranding in the lateral aspect of left upper lobe probably representing atelectasis. This area of density contains a 1.2 cm oblong ovoid area of questionable nodularity (1:31 and 3:90). Calcified granuloma near the left inferior hilum. No pleural fluid or pneumothorax. Airways: Large central airway branches are patent. Upper abdomen: 0.8 cm hypodense focus in left lobe of liver, lateral segment. A second smaller 0.6 cm hypodense focus is noted in the superior right lobe. Small hiatal hernia. Esophagus is not dilated. Bones/soft tissues: Included skeletal structures are unremarkable. IMPRESSION: 1. No evidence of pulmonary embolism. 2. Parenchymal stranding in left lower lobe could represent atelectasis versus mild infiltrate. This area shows a questionable nodular focus. Recommend imaging follow-up until clear. 3. No foreign object in the visible tracheal bronchial tree and esophagus. 4. Small subcentimeter hypodense foci in the liver. See follow-up guidelines below. Incidental Finding: No follow-up imaging is recommended for any of the following incidentally detected lesions: liver lesions less than or equal to 0.5 cm, cystic kidney lesions less than 1.0 cm, or adrenal lesions less than or equal to 1.0 cm, in this adult patient (18 years or older). ACR Whitepaper: Managing Incidental Findings on Abdominal CT. JACR 2010; 7:754 Medical Clerk: MARTHA Transcribe Date/Time: Apr 23 2020 7:15P Dictated by : AMERICA PETERS MD This examination was interpreted and the report reviewed and electronically signed by: AMERICA PETERS MD on Apr 23 2020 7:26PM EST Normal [facility] CORONAVIRUS 2019 BY PCRon CORONAVIRUS 2019,PCR NOT DETECTED Normal Not Detected [facility] Comment on above: Order Comment: Order ed by [facility], Healthcare Worker Result Comment: Nega tive (NOT DETECTED) result does not preclude 2019-nCoV infection and should not be used as the sole basis for treatment or other patient management decisions. Negative results must be combined with clinical observations, patient history, and epidemiological information. Positive (DETECTED) result is for the presumptive identification of 2019-nCoV RNA. The 2019-nCoV RNA is generally detectable in upper and lower respiratory specimens during infection, however it can also be detected in stool. Positive results are indicative of active infection with 2019-nCoV but do not rule out bacterial infection or co-infection with other viruses. The agent detected may not be the definite cause of disease. INCONCLUSIVE and INVALID result signify that a negative or positive result could not be rendered often due to insufficient sample adequacy or quality. An INCONCLUSIVE result may also represent a low level positive result that cannot be called with a high degree of certainty. If clinically indicated, it is suggested that another sample be collected and retested. This test has not been cleared or approved by the FDA; however, the FDA has determined through the Emergency Use Authorization (EUA) process that such approval is not required at this time. This test is only authorized for the duration of time the declaration that circumstances exist to justify the authorization of the emergency use of in vitro diagnostic tests for the detection of SARS-CoV-2 virus and/or diagnosis of COVID-19 infection under section 564(b)(1) of the Act, 21 U.S.C. 360bbb-3(b)(1), unless the authorization is terminated or revoked sooner. [facility] ([facility]) is certified under CLIA-88 as qualified to perform high complexity testing. This tests analytical performance characteristics have been determined by [facility]. Testing is performed at [facility] is located at [address] [place] [address] (CLIA License #[id number], CAP #[id number]). Performed By: #### C OV19 #### [facility] [address] [place] [address] CORONAVIRUS 2019 BY PCRon Lab Specimen Source Nasal, Nasopharyngeal Normal [facility] Comment on above: Order Comment: Order ed by [facility], Healthcare Worker Performed By: #### C OV19 #### [facility] [address] [place] [address] APTTon 02-13-2020 aPTT Coag (Bld) [Time] 41 s High 28 - 38 [facility] Comment on above: Result Comment: THE APTT IS NO LONGER USED FOR MONITORING UNFRACTIONATED HEPARIN THERAPY. FOR MONITORING HEPARIN THERAPY, USE THE HEPARIN ASSAY. Performed By: #### A PTT #### [address] [address] BASIC METABOLIC PANELon Anion gap [Moles/Vol] 15 mmol/L Normal 10 - 20 [facility] Comment on above: Performed By: #### P TINR #### [address] [address] Calcium [Mass/Vol] 9.6 mg/dL Normal 8.6 - 10.3 [facility] Comment on above: Performed By: #### P TINR #### [address] [address] Chloride [Moles/Vol] 103 mmol/L Normal 98 - 107 [facility] Comment on above: Performed By: #### P TINR #### [address] [address] Creatinine [Mass/Vol] 1.04 mg/dL Normal 0.50 - 1.05 [facility] Comment on above: Performed By: #### P TINR #### [address] [address] GFR- AM. 63 mL/min/1.73m2 Normal >60 [facility] Comment on above: Result Comment: CALC ULATIONS OF ESTIMATED GFR ARE PERFORMED USING THE MDRD STUDY EQUATION FOR THE IDMS-TRACEABLE CREATININE METHODS. CLIN CHEM 2007;53:766-72 Performed By: #### P TINR #### [address] [address] GFR-NON AM. 52 mL/min/1.73m2 Abnormal >60 [facility] Comment on above: Performed By: #### P TINR #### [address] [address] Glucose [Mass/Vol] 104 mg/dL High 74 - 99 [facility] Comment on above: Performed By: #### P TINR #### [address] [address] HCO3 (Bld) [Moles/Vol] 25 mmol/L Normal 21 - 32 [facility] Comment on above: Performed By: #### P TINR #### [address] [address] Potassium [Moles/Vol] 3.8 mmol/L Normal 3.5 - 5.3 [facility] [facility] Comment on above: Performed By: #### P TINR #### [address] [address] Sodium [Moles/Vol] 139 mmol/L Normal 136 - 145 [facility] Comment on above: Performed By: #### P TINR #### [address] [address] Urea nitrogen [Mass/Vol] 16 mg/dL Normal 6 - 23 [facility] Comment on above: Performed By: #### P TINR #### [address] [address] BNPon 02-13-2020 Natriuretic peptide B (Bld) [Mass/Vol] 35 pg/mL Normal 0 - 99 [facility] Comment on above: Result Comment: . <1 00 pg/mL - Heart failure unlikely 100-299 pg/mL - Intermediate probability of acute heart . failure exacerbation. Correlate with clinical . context and patient history. >=300 pg/mL - Heart Failure likely. Correlate with clinical . context and patient history. BNP testing is performed using different testing methodology at [facility] than at other [facility]. Direct result comparisons should only be made within the same method. Performed By: #### M G #### [address] [address] CBC AND DIFFERENTIALon 02-12 Basophils (Bld) [#/Vol] 0.00 10*3/uL Normal 0.00 - 0.10 [facility] Comment on above: Performed By: #### M G #### [address] [address] Basophils/100 WBC (Bld) 0.3 % Normal 0.0 - 2.0 [facility] Comment on above: Performed By: #### M G #### [address] [address] Eosinophils (Bld) [#/Vol] 0.00 10*3/uL Normal 0.00 - 0.40 [facility] Comment on above: Performed By: #### M G #### [address] [address] Eosinophils/100 WBC (Bld) 0.2 % Normal 0.0 - 6.0 [facility] Comment on above: Performed By: #### M G #### [address] [address] Erythrocyte distribution width (RBC) [Ratio] 13.9 % Normal 11.5 - 14.5 [facility] Comment on above: Performed By: #### M G #### [address] [address] Hematocrit (Bld) [Volume fraction] 48.2 % High 36.0 - 46.0 [facility] Comment on above: Performed By: #### M G #### [address] [address] Hemoglobin (Bld) [Mass/Vol] 16.0 g/dL Normal 12.0 - 16.0 [facility] Comment on above: Performed By: #### M G #### [address] [address] Lymphocytes (Bld) [#/Vol] 1.20 10*3/uL Normal 0.80 - 3.00 [facility] Comment on above: Performed By: #### M G #### [address] [address] Lymphocytes/100 WBC (Bld) 19.2 % Normal 13.0 - 44.0 [facility] Comment on above: Performed By: #### M G #### [address] [address] MCHC (RBC) [Mass/Vol] 33.1 g/dL Normal 32.0 - 36.0 [facility] Comment on above: Performed By: #### M G #### [address] [address] MCV (RBC) [Entitic vol] 86 fL Normal 80 - 100 [facility] Comment on above: Performed By: #### M G #### [address] [address] Monocytes (Bld) [#/Vol] 0.70 10*3/uL Normal 0.05 - 0.80 [facility] Comment on above: Performed By: #### M G #### [address] [address] Monocytes/100 WBC (Bld) 11.7 % Normal 2.0 - 10.0 [facility] Comment on above: Performed By: #### Luc G #### [address] [address] Neutrophils (Bld) [#/Vol] 4.30 10*3/uL Normal 1.60 - 5.50 [facility] Comment on above: Result Comment: Perc ent differential counts (%) should be interpreted in the context of the absolute cell counts (cells/L). Performed By: #### M G #### [address] [address] Neutrophils/100 WBC (Bld) 68.6 % Normal 40.0 - 80.0 [facility] Comment on above: Performed By: #### M G #### [address] [address] Platelets (Bld) [#/Vol] 204 10*3/uL Normal 150 - 450 [facility] Comment on above: Performed By: #### M G #### [address] [address] RBC (Bld) [#/Vol] 5.64 x10E12/L High 4.00 - 5.20 [facility] Comment on above: Performed By: #### M G #### [id number] [place] [address] WBC (Bld) [#/Vol] 6.3 10*3/uL Normal 4.4 - 11.3 [facility] Comment on above: Performed By: #### M G #### [id number] [place] [address] CHEST 1 VIEWon 02-13-2020 CHEST 1 VIEW Patient Name: TERRI BURCIAGA STUDY: CHEST 1 VIEW; 02/13/2020 11:18 am INDICATION: Chest Pain. COMPARISON: 12/02/2014 ACCESSION NUMBER(S): [id number] ORDERING CLINICIAN: DOTTIE CEE TECHNIQUE: A portable radiograph of the chest is performed. FINDINGS: The heart is of normal size and contour. The pulmonary vessels are within normal limits. There is no airspace consolidation, pleural effusion, or pneumothorax. The osseous structures are intact and unchanged. IMPRESSION: No sign of acute cardiopulmonary disease. There is no airspace infiltrate at this time. Electronically signed by: ROSA ANNE MD Normal [facility] CORONAVIRUS 2019 BY PCRon CORONAVIRUS 2019,PCR NOT DETECTED Normal Not Detected [facility] Comment on above: Result Comment: This assay is designed to detect the ORF1ab and/or S genes of SARS-CoV-2 via nucleic acid amplification. A Not Detected result does not preclude 2019-nCoV infection since the adequacy of sample collection and/or low viral burden may result in presence of viral nucleic acids below the clinical sensitivity of this test method. Fact sheet for providers: www.fda.gov/media/913112/download Fact sheet for patients: www.fda.gov/media/662577/download This test has received FDA Emergency Use Authorization (EUA) and has been verified by [facility] ([facility]). This test is only authorized for the duration of time that circumstances exist to justify the authorization of the emergency use of in vitro diagnostic tests for the detection of SARS-CoV-2 virus and/or diagnosis of COVID-19 infection under section 564(b)(1) of the Act, 21 U.S.C. 360bbb-3(b)(1), unless the authorization is terminated or revoked sooner. [facility] is certified under CLIA-88 as qualified to perform high complexity testing. Testing is performed in the [facility] laboratories located at [address] [place] [address]. Performed By: #### C OV19 #### [place] [address] Lab Specimen Source Nasal, Nasopharyngeal Normal [facility] Comment on above: Performed By: #### C OV19 #### [place] [address] Performed By: #### P TINR #### [place] [address] INFLUENZA A/B AND RSV PCRon 02-13-2020 INFLUENZA A, PCR NOT DETECTED Normal Not Detected [facility] Comment on above: Result Comment: Resp iratory virus testing is performed routinely by PCR for Influenza A/B and RSV. Not Detected results do not preclude Influenza A/B or RSV infections since the adequacy of sample collection or low viral burden may impact the clinical sensitivity of this test method. Performed By: #### P TINR #### [place] [address] INFLUENZA B, PCR NOT DETECTED Normal Not Detected [facility] Comment on above: Result Comment: Resp iratory virus testing is performed routinely by PCR for Influenza A/B and RSV. Not Detected results do not preclude Influenza A/B or RSV infections since the adequacy of sample collection or low viral burden may impact the clinical sensitivity of this test method. Performed By: #### P TINR #### [place] [address] RSV,PCR NOT DETECTED Normal Not Detected [facility] Comment on above: Result Comment: Resp iratory virus testing is performed routinely by PCR for Influenza A/B and RSV. Not Detected results do not preclude Influenza A/B or RSV infections since the adequacy of sample collection or low viral burden may impact the clinical sensitivity of this test method. Performed By: #### P TINR #### [id number] MAGNESIUMon 02-13-2020 Magnesium [Mass/Vol] 2.10 mg/dL Normal 1.60 - 2.40 [facility] Comment on above: Performed By: #### M G #### [address] [address] PT/INRon 02-13-2020 INR Coag (PPP) [Relative time] 1.0 {INR} Normal 0.9 - 1.1 [facility] Comment on above: Performed By: #### P TINR #### [address] [address] PT Coag (PPP) [Time] 11.5 s Normal 9.7 - 12.7 [facility] Comment on above: Performed By: #### P TINR #### [address] [address] Provider Note - ED v2on Provider Note - ED v2 Provider Note - ED v2: Chart Review: ED NOTES ED NOTES: ====HPI==== Patient is a 74-year-old female who presents to the emergency department with a complaint of shortness of breath. Patient states that her shortness of breath started 4 days ago. She states that she feels short of breath at rest and with exertion. She states that she has had an associated dry cough. She states that in the morning she does have some nasal drainage. She does have a history of allergies but she states that she typically does not feel short of breath with her allergies. She states that she has had a low-grade fever. 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 She denies any chest pain. She states that she has a history of hypertension and renal insufficiency. She states that her last creatinine was 3.0. Character: Severity: moderate Exacerbated by: nothing Improved by: nothing ====Review of Systems==== 10 point system review is negative except for those specifically mentioned in history of present illness ====Physical Exam==== VITALS: T PRBP SpO2O2(LPM) %FiO2 Method 13-Feb-2020 10:00:00-70224/75 96 room air, no respiratory support 13-Feb-2020 09:42:00-37.0928259/104 98 room air, no respiratory support Constitutional/General: Alert and oriented x3, well appearing, nontoxic, and in NAD. Head: Normocephalic and atraumatic. Eyes: PERRL, EOMI, conjunctive normal, sclera nonicteric, subconjunctival layer is pink. Mouth: Oropharynx clear, handling secretions, no trismus, no asymmetry of the posterior oropharynx or uvular edema Neck: Supple, full ROM, non tender to palpation in the midline, no stridor, no crepitus, no meningeal signs. Trachea at midline. Respiratory: Lungs clear to auscultation bilaterally, no wheezes, rales, or rhonchi, not in respiratory distress. Cardiovascular: Regular rate, regular rhythm, no murmurs, gallops, or rubs, 2+ distal pulses. Chest: normal chest wall movement GI: Abdomen soft, nontender, nondistended, + BS, no organomegaly, no palpable masses, no rebound, guarding, or rigidity. Musculoskeletal: Moves all extremities x4, warm and well perfused, no clubbing, cyanosis, or edema, cap refill <3 seconds Integument: Skin warm and dry, no rashes. Lymphatic: No lymphadenopathy noted. Neurologic: GCS 15, no focal deficits, symmetric strength 5/5 in the upper and lower extremities bilaterally. Psychiatric: Normal affect. ====ED Course and Medical Decision Making==== See MDM section for review of findings & plan of care. Portions of this note were dictated by speech recognition. An attempt at proof reading was made to minimize errors. Minor errors in obiee obia solution architect may be present. Please call if questions.. HISTORY OF PRESENTING ILLNESS TERRI is a 74 year old Female and was seen by me at 13-Feb-2020 10:25 for a chief complaint of cough (PT C/O COUGH, SOB, MY THROAT FEELS RAW SINCE THURSDAY WITH YELLOW SINUS DRAINAGE AND THEN IT TURNED WHITE, NO FEVER)(1). Triage Information: Most recent Vital Sign Value Date Temp (F): 98.7 02-13-2020 09:42 Temp (C): 37.1 02-13-2020 09:42 Heart Rate (beats/min): 121 02-13-2020 09:42 SpO2 (%): 98 02-13-2020 09:42 BP Systolic (mm Hg): 187 02-13-2020 09:42 BP Diastolic (mm Hg): 104 02-13-2020 09:42 PAST MEDICAL HISTORY ATTESTATION: I have reviewed and confirmed nurse's/medic's notes for patient's medications, allergies, medical history, and surgical history ALLERGIES/INTOLERANCES: Allergy Allergen: Lopressor Type: Drug Reaction: Other Allergen: Vioxx Type: Drug Reaction: Other HEALTH HISTORY: No documented data. OUTPATIENT MEDICATIONS: Home Medications Review Status for Reconciliation: Complete Med Status: Patient Currently Takes Medications Drug Name: omeprazole 20 mg oral delayed release capsule Instructions: 1 cap(s) orally once a day Drug Name: cloNIDine 0.1 mg oral tablet Instructions: 1 tab(s) orally once a day Drug Name: losartan 100 mg oral tablet Instructions: 1 tab(s) orally once a day Drug Name: hydroCHLOROthiazide 12.5 mg oral capsule Instructions: 1 cap(s) orally once a day Drug Name: potassium chloride 20 mEq oral tablet, extended release Instructions: 1 tab(s) orally once a day SIGNIFICANT EVENTS: Past Medical History Description:Hypertension (HTN) Description:PEDRO RESULTS/VITAL SIGNS RESULTS: Recent Lab Results: I have reviewed these laboratory results: Complete Blood Count + Differential 13-Feb-2020 11:30:00 ResultValue White Blood Cell Count 6.3 Red Blood Cell Count 5.64 H HGB 16.0 HCT 48.2 H MCV 86 MCHC 33.1 PLT 204 RDW-CV 13.9 Neutrophil % 68.6 Lymphocyte % 19.2 Monocyte % 11.7 Eosinophil % 0.2 Basophil % 0.3 Neutrophil Count 4.30 Lymphocyte Count 1.20 Monocyte Count 0.70 Eosinophil Count 0.00 Basophil Count 0.00 Basic Metabolic Panel 13-Feb-2020 11:30:00 ResultValue Glucose, Serum 104 H NA 139 K 3.8 CL 103 Bicarbonate, Serum 25 Anion Gap, Serum 15 BUN 16 CREAT 1.04 GFR-Non 52 A GFR- 63 Calcium, Serum 9.6 PT + INR, Plasma 13-Feb-2020 11:30:00 ResultValue Prothrombin Time, Plasma 11.5 International Normalized Ratio, Plasma 1.0 Influenza A/B and RSV PCR 13-Feb-2020 11:30:00 ResultValue Influenza A PCR NOT DETECTED Reference Range: Not Detected Respiratory virus testing is performed routinely by PCR for Influenza A/B and RSV. Not Detected results do not preclude Influenza A/B or RSV infections since the adequacy of sample collection or lo Influenza B PCR NOT DETECTED Reference Range: Not Detected Respiratory virus testing is performed routinely by PCR for Influenza A/B and RSV. Not Detected results do not preclude Influenza A/B or RSV infections since the adequacy of sample collection or lo RSV PCR NOT DETECTED Reference Range: Not Detected Respiratory virus testing is performed routinely by PCR for Influenza A/B and RSV. Not Detected results do not preclude Influenza A/B or RSV infections since the adequacy of sample collection or lo Fluid Source Nasal, Nasopharyngeal Troponin I, Serum 13-Feb-2020 11:30:00 ResultValue Troponin I, Serum <0.02 Magnesium, Serum 13-Feb-2020 11:30:00 ResultValue Magnesium, Serum 2.10 Activated Partial Thromboplastin Time 13-Feb-2020 11:30:00 ResultValue Activated Partial Thromboplastin Time 41 H Brain Natriuretic Peptide 13-Feb-2020 11:30:00 ResultValue Brain Natriuretic Peptide 35 VITAL SIGNS: T PRBP SpO2O2(LPM) %FiO2 Method 13-Feb-2020 10:00:00-35745/75 96 room air, no respiratory support 13-Feb-2020 09:42:00-37.9659388/104 98 room air, no respiratory support EKG INTERPRETATION: Impression: EKG showos NSR with a rate of [address] elevation or depression. MEDICAL DECISION MAKING/ED COURSE MDM/ED COURSE: Patient is afebrile and nontoxic appearing. She is a 74-year-old female who presents to the emergency department with a chief complaint of shortness of breath and a dry cough. Her chest x-ray shows no acute process. Laboratory studies are unremarkable. Pulse ox is 98% on room air. Patient reports that she other blakely feels well. 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 She has been tested for Covid 19 and results are pending. Patient had a walking pulse ox and her walking pulse ox remained normal. Patient states that she felt well. I do feel that patient can be discharged safely home as her vital signs are stable. She was instructed to self quarantine until she does receive the results of her Covid test. She is to return immediately for any new or worsening symptoms CLINICAL IMPRESSION Diagnosis/Annotation: ED Dx Name:Shortness of breath at rest Code:R06.02 Name:Viral upper respiratory tract infection with cough Code:J06.9 Dispostion: discharged Type: home ATTESTATION CRITICAL CARE TIME Is this a critically ill patient: no Electronic Signatures: Dottie Cee (PAC) (Signed 13-Feb-2020 14:46) Authored: Provider Note - ED v2 Last Updated: 13-Feb-2020 14:46 by Dottie Cee (JOSÉ LUIS) References: 1. Data Referenced From Triage - ED 13-Feb-2020 09:42 Normal [facility] TROPONIN Ion 02-13-2020 Troponin I.cardiac [Mass/Vol] ng/mL Normal 0.00 - 0.03 [facility] Comment on above: Result Comment: LESS THAN 0.04 NG/ML: NEGATIVE REPEAT TESTING IN THREE TO SIX HOURS IF CLINICALLY INDICATED. 0.04 - 0.5 NG/ML: CONSISTENT WITH POSSIBLE CARDIAC DAMAGE AND POSSIBLE INCREASED CLINICAL RISK. SERIAL MEASUREMENTS MAY HELP ASSESS EXTENT OF MYOCARDIAL DAMAGE. >0.5 NG/ML: CONSISTENT WITH CARDIAC DAMAGE, INCREASED CLINICAL RISK AND MYOCARDIAL INFARCTION. SERIAL MEASUREMENTS MAY HELP ASSESS EXTENT OF MYOCARDIAL DAMAGE. . Note: Troponin I testing is performed using different testing methodology at [facility] than at other [facility]. Direct result comparisons should only be made within the same method. Performed By: #### T ROP2 #### [facility] [address] [id number] Triage - EDon 02-13-2020 Triage - ED Quick Triage: The patient and/or guardian verbally acknowledges placement for services into the following (when Urgent Care Service hours are operating):emergency department Chart Review: CHIEF COMPLAINT TERRI BURCIAGA is a Female patient with a chief complaint of cough (PT C/O COUGH, SOB, MY THROAT FEELS RAW SINCE THURSDAY WITH YELLOW SINUS DRAINAGE AND THEN IT TURNED WHITE, NO FEVER). Triage Date/Time: 13-Feb-2020 09:42 Pain Rating (0-10): 0 = None Vital Signs: Temperature: 98.7F ( 37.1C) taken oral Blood Pressure: 187/104 Mean: Heart Rate: 121 Pulse Oximetry: 98% on room air, no respiratory support. Height: 5 feet 0.00 inches. 152.4 CM Weight: 180.3 pounds. Calculated 81.8 kg. 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 Symptoms Are Negative For: body aches, chest pain, chills, congestion, diaphoresis, dyspnea, fever, headache and malaise. Risk Screens Suicide Risk Screen In the Past Month: Have you wished you were or wished you could go to sleep and not wake up no In the Past Month: Have you had any actual thoughts of killing yourself no Moya Fall Scale Screening Has the patient fallen before (or is the patient in the ED as a result of a fall) has not had a fall Does the patient have an impaired gait does not have impaired gait Is the patient cognitively impaired not cognitively impaired Interventions: Moya Fall Interventions: *patient oriented to surroundings and call system, * patient/family falls education completed and documented, *patients fall status communicated during bedside handoff, *whiteboard updated, *mode of toileting discussed with patient, *bed in low position with brakes locked, *call light in reach, * non-skid footwear PAIN Pain Scale Used: SHEY Pain Rating (0-10): 0 = None Past Medical History: Past Medical History Reviewedyes Hypertension (HTN): Past Medical History, Active Electronic Signatures: Citlaly Kat (NYLA) (Signed 13-Feb-2020 09:57) Authored: Triage, Past Medical History Last Updated: 13-Feb-2020 09:57 by Citlaly Kat (NYLA) [facility] XR Ankle 3+ Views Righton XR Ankle 3+ Views Right Exam Date/Time: 05/13/2019 13:56 EDT Reason for Exam: Pain Report STUDY: XR Ankle 3+ Views Right; XR Foot 3+ Views Right; 05/13/2019 1:56 pm; 05/13/2019 2:04 pm INDICATION: Pain; Pain, Traumatic. COMPARISON: None. ACCESSION NUMBER(S): [id number]; [id number] ORDERING CLINICIAN: Dottie Cee TECHNIQUE: Three views each of the right foot and right ankle were obtained. FINDINGS: There is an acute comminuted slightly oblique fracture through the mid to distal diaphysis of the 5th metatarsal. No dislocation. No other fracture. Ankle mortise and talar dome are intact. Moderate-sized plantar calcaneal spur. No lytic or blastic destructive bone lesion. . No opaque soft tissue foreign body. No periosteal reaction or erosion. IMPRESSION: Comminuted somewhat oblique minimally displaced mid to distal diaphyseal fracture of the 5th metatarsal. FINAL REPORT Dictated: 05/13/2019 2:50 pm Jake Combs MD Signed (Electronic Signature): 05/13/2019 2:50 pm Signed by: Jake Combs MD Technologist: ANGELICA [facility] XR Foot 3+ Views Righton XR Foot 3+ Views Right Exam Date/Time: 05/13/2019 14:04 EDT Reason for Exam: Pain, Traumatic Report STUDY: XR Ankle 3+ Views Right; XR Foot 3+ Views Right; 05/13/2019 1:56 pm; 05/13/2019 2:04 pm INDICATION: Pain; Pain, Traumatic. COMPARISON: None. ACCESSION NUMBER(S): [id number]; [id number] ORDERING CLINICIAN: Dottie Cee TECHNIQUE: Three views each of the right foot and right ankle were obtained. FINDINGS: There is an acute comminuted slightly oblique fracture through the mid to distal diaphysis of the 5th metatarsal. No dislocation. No other fracture. Ankle mortise and talar dome are intact. Moderate-sized plantar calcaneal spur. No lytic or blastic destructive bone lesion. . No opaque soft tissue foreign body. No periosteal reaction or erosion. IMPRESSION: Comminuted somewhat oblique minimally displaced mid to distal diaphyseal fracture of the 5th metatarsal. FINAL REPORT Dictated: 05/13/2019 2:50 pm Jake Combs MD Signed (Electronic Signature): 05/13/2019 2:50 pm Signed by: Jake Combs MD Technologist: AM [facility] BLADDER SCAN [facility] Vital Signs Date Time Vital Sign Value Performing Clinician Facility 05-16-2025 16:14-0400 Body mass index (BMI) [Ratio] 37.16 kg/m2 Andre Santana MD Work Phone: [facility] 05-16-2025 16:14-0400 Body weight 83.46 kg Andre Santana MD Work Phone: [facility] 05-16-2025 16:14-0400 Diastolic blood pressure 62 mm[Hg] Andre Santana MD Work Phone: [facility] 05-16-2025 16:14-0400 Heart rate 71 /min Andre Santana MD Work Phone: [facility] 05-16-2025 16:14-0400 SaO2% (BldA) [Mass fraction] 97 % Andre Santana MD Work Phone: [facility] 05-16-2025 16:14-0400 Systolic blood pressure 122 mm[Hg] Andre Santana MD Work Phone: [facility] 04-17-2025 17:10-0400 Body mass index (BMI) [Ratio] 36.15 kg/m2 Andre Santana MD Work Phone: [facility] 04-17-2025 17:10-0400 Body weight 81.19 kg Andre Santana MD Work Phone: [facility] 04-17-2025 17:10-0400 Diastolic blood pressure 82 mm[Hg] Andre Santana MD Work Phone: [facility] 04-17-2025 17:10-0400 Heart rate 67 /min Andre Santana MD Work Phone: [facility] 04-17-2025 17:10-0400 SaO2% (BldA) [Mass fraction] 97 % Andre Santana MD Work Phone: [facility] 04-17-2025 17:10-0400 Systolic blood pressure 138 mm[Hg] Andre Santana MD Work Phone: [facility] 03-07-2025 14:17-0400 Body height 149.9 cm Tulio Calderón MD Work Phone: [facility] 03-07-2025 14:17-0400 Body mass index (BMI) [Ratio] 36.15 kg/m2 Tulio Calderón MD Work Phone: [facility] 03-07-2025 14:17-0400 Body weight 81.19 kg Tulio Calderón MD Work Phone: [facility] 03-07-2025 14:17-0400 Diastolic blood pressure 72 mm[Hg] Tulio Calderón MD Work Phone: [facility] 03-07-2025 14:17-0400 Heart rate 75 /min Tulio Calderón MD Work Phone: [facility] 03-07-2025 14:17-0400 Respiratory rate 19 /min Tulio Calderón MD Work Phone: [facility] 03-07-2025 14:17-0400 SaO2% (BldA) [Mass fraction] 97 % Tulio Calderón MD Work Phone: [facility] 03-07-2025 14:17-0400 Systolic blood pressure 110 mm[Hg] Tulio Calderón MD Work Phone: [facility] 02-06-2025 13:16-0400 Body height 149.9 cm Tulio Calderón MD Work Phone: [facility] 02-06-2025 13:16-0400 Body mass index (BMI) [Ratio] 35.83 kg/m2 Tulio Calderón MD Work Phone: [facility] 02-06-2025 13:16-0400 Body weight 80.47 kg Tulio Calderón MD Work Phone: [facility] [facility] 02[facility]06-[facility]25 13:16-0400 Diastolic blood pressure 82 mm[Hg] Tulio Calderón MD Work Phone: [facility] 02-06-2025 13:16-0400 Heart rate 68 /min Tulio Calderón MD Work Phone: [facility] 02-06-2025 13:16-0400 Respiratory rate 20 /min Tulio Calderón MD Work Phone: [facility] 02-06-2025 13:16-0400 SaO2% (BldA) [Mass fraction] 98 % Tulio Calderón MD Work Phone: [facility] 02-06-2025 13:16-0400 Systolic blood pressure 138 mm[Hg] Tulio Calderón MD Work Phone: [facility] 01-12-2025 08:29-0500 Body height 149.[address] Andre Santana MD Work Phone: [facility] 01-12-2025 08:29-0500 Body weight 79.[address] Andre Santana MD Work Phone: [facility] 12-15-2024 13:49-0500 Body height 149.9 cm Maren Rhodes MD Work Phone: [facility] 12-15-2024 13:49-0500 Body mass index (BMI) [Ratio] 34.73 kg/m2 Maren Rhodes MD Work Phone: [facility] 12-15-2024 13:49-0500 Body weight 78 kg Maren Rhodes MD Work Phone: [facility] 12-15-2024 13:49-0500 Diastolic blood pressure 78 mm[Hg] Maren Rhodes MD Work Phone: [facility] 12-15-2024 13:49-0500 Heart rate 64 /min Maren Rhodes MD Work Phone: [facility] 12-15-2024 13:49-0500 SaO2% (BldA) [Mass fraction] 97 % Maren Rhodes MD Work Phone: [facility] 12-15-2024 13:49-0500 Systolic blood pressure 119 mm[Hg] Maren Rhodes MD Work Phone: [facility] 12-15-2024 08:03-0500 Body weight 78.[address] Andre Santana MD Work Phone: [facility] 12-09-2024 15:10-0500 Body height 149.9 cm Jacquie Evans MD Work Phone: [facility] 12-09-2024 15:10-0500 Body mass index (BMI) [Ratio] 35.35 kg/m2 Jacquie Evans MD Work Phone: [facility] 12-09-2024 15:10-0500 Body weight 79.38 kg Jacquie Evans MD Work Phone: [facility] 12-09-2024 15:10-0500 Diastolic blood pressure 84 mm[Hg] Jacquie Evans MD Work Phone: [facility] 12-09-2024 15:10-0500 Heart rate 64 /min Jacquie Evans MD Work Phone: [facility] 12-09-2024 15:10-0500 Respiratory rate 14 /min Jacquie Evans MD Work Phone: [facility] 12-09-2024 15:10-0500 SaO2% (BldA) [Mass fraction] 99 % Jacquie Evans MD Work Phone: [facility] 12-09-2024 15:10-0500 Systolic blood pressure 136 mm[Hg] Jacquie Evans MD Work Phone: [facility] 11-23-2024 15:44-0500 Body height 149.9 cm Andre Santana MD Work Phone: [facility] 11-23-2024 15:44-0500 Body mass index (BMI) [Ratio] 34.74 kg/m2 Andre Santana MD Work Phone: [facility] 11-23-2024 15:44-0500 Body weight 78.02 kg Andre Santana MD Work Phone: [facility] 11-23-2024 15:44-0500 Diastolic blood pressure 81 mm[Hg] Andre Santana MD Work Phone: [facility] 11-23-2024 15:44-0500 Heart rate 62 /min Andre Santana MD Work Phone: [facility] 11-23-2024 15:44-0500 Systolic blood pressure 138 mm[Hg] Andre Santana MD Work Phone: [facility] 11-17-2024 07:44-0500 Body weight 78.[address] Andre Santana MD Work Phone: [facility] 10-17-2024 14:53-0500 Body mass index (BMI) [Ratio] 34.1 kg/m2 Dr. Andre Santana MD Work Phone: [facility] 10-17-2024 14:53-0500 Heart rate 59 /min Dr. Andre Santana MD Work Phone: [facility] 10-17-2024 14:53-0500 SaO2% (BldA) [Mass fraction] 98 % Dr. Andre Santana MD Work Phone: [facility] 10-17-2024 14:43-0500 Body weight 76.[address] Andre Santana MD Work Phone: [facility] 10-03-2024 14:26-0500 Body mass index (BMI) [Ratio] 35.14 kg/m2 Darshan Abarca MD Work Phone: [facility] 10-03-2024 14:26-0500 Body weight 78.93 kg Darshan Abarca MD Work Phone: [facility] 10-03-2024 14:26-0500 Diastolic blood pressure 80 mm[Hg] Darshan Abarca MD Work Phone: [facility] 10-03-2024 14:26-0500 Heart rate 71 /min Darshan Abarca MD Work Phone: [facility] 10-03-2024 14:26-0500 SaO2% (BldA) [Mass fraction] 99 % Darshan Abarca MD Work Phone: [facility] 10-03-2024 14:26-0500 Systolic blood pressure 122 mm[Hg] Darshan Abarca MD Work Phone: [facility] 09-20-2024 22:19-0500 Diastolic blood pressure 85 mm[Hg] Andre Santana MD Work Phone: [facility] 09-20-2024 22:19-0500 Heart rate 80 /min Andre Santana MD Work Phone: [facility] 09-20-2024 22:19-0500 Respiratory rate 18 /min Andre Santana MD Work Phone: [facility] 09-20-2024 22:19-0500 SaO2% (BldA) [Mass fraction] 96 % Andre Santana MD Work Phone: [facility] 09-20-2024 22:19-0500 Systolic blood pressure 182 mm[Hg] Andre Santana MD Work Phone: [facility] 09-20-2024 20:21-0500 Body temperature 98.29 [degF] Andre Santana MD Work Phone: [facility] 09-20-2024 20:21-0500 Body weight 76.66 kg Andre Santana MD Work Phone: [facility] 09-15-2024 13:29-0500 Body mass index (BMI) [Ratio] 35.09 kg/m2 Sandy Suarezan PULP GRINDER FEEDER.CIRCULAR RIPSAW OPERATOR Work Phone: [facility] 09-15-2024 13:29-0500 Body weight 78.8 kg Sandy Suppan PULP GRINDER FEEDER.CIRCULAR RIPSAW OPERATOR Work Phone: [facility] 09-15-2024 13:29-0500 Diastolic blood pressure 70 mm[Hg] Sandy Suppan PULP GRINDER FEEDER.CIRCULAR RIPSAW OPERATOR Work Phone: [facility] 09-15-2024 13:29-0500 Heart rate 68 /min Sandy Suppan PULP GRINDER FEEDER.CIRCULAR RIPSAW OPERATOR Work Phone: [facility] 09-15-2024 13:29-0500 Respiratory rate 16 /min Sandy Suppan PULP GRINDER FEEDER.CIRCULAR RIPSAW OPERATOR Work Phone: [facility] 09-15-2024 13:29-0500 SaO2% (BldA) [Mass fraction] 98 % Sandy Suppan PULP GRINDER FEEDER.CIRCULAR RIPSAW OPERATOR Work Phone: [facility] 09-15-2024 13:29-0500 Systolic blood pressure 134 mm[Hg] Sandy Suppan PULP GRINDER FEEDER.CIRCULAR RIPSAW OPERATOR Work Phone: [facility] 09-12-2024 18:37-0500 Diastolic blood pressure 90 mm[Hg] Trang Haagen PULP GRINDER FEEDER.CIRCULAR RIPSAW OPERATOR Work Phone: [facility] Comment on above: [facility] 09-12-2024 18:37-0500 Heart rate 74 /min Trang Haagen PULP GRINDER FEEDER.CIRCULAR RIPSAW OPERATOR Work Phone: [facility] 09-12-2024 18:37-0500 Systolic blood pressure 175 mm[Hg] Trang Haagen PULP GRINDER FEEDER.CIRCULAR RIPSAW OPERATOR Work Phone: [facility] Comment on above: RUTH BP 09-12-2024 18:28-0500 Respiratory rate 16 /min Trang Haagen PULP GRINDER FEEDER.CIRCULAR RIPSAW OPERATOR Work Phone: [facility] 09-12-2024 18:28-0500 SaO2% (BldA) [Mass fraction] 97 % Trang Haagen PULP GRINDER FEEDER.CIRCULAR RIPSAW OPERATOR Work Phone: [facility] 08-12-2024 14:28-0400 Body height 149.9 cm Andre Santana MD Work Phone: [facility] 08-12-2024 14:28-0400 Body mass index (BMI) [Ratio] 34.78 kg/m2 Andre Santana MD Work Phone: [facility] 08-12-2024 14:28-0400 Body weight 78.11 kg Andre Santana MD Work Phone: [facility] 08-12-2024 14:28-0400 Diastolic blood pressure 84 mm[Hg] Andre Santana MD Work Phone: [facility] 08-12-2024 14:28-0400 Heart rate 80 /min Andre Santana MD Work Phone: [facility] 08-12-2024 14:28-0400 SaO2% (BldA) [Mass fraction] 98 % Andre Santana MD Work Phone: [facility] 08-12-2024 14:28-0400 Systolic blood pressure 118 mm[Hg] Andre Santana MD Work Phone: [facility] 08-09-2024 13:17-0400 Body mass index (BMI) [Ratio] 35.13 kg/m2 Krislyn Aberegg PA Work Phone: [facility] 08-09-2024 13:17-0400 Body temperature 99 [degF] Krislyn Aberegg PA Work Phone: [facility] 08-09-2024 13:17-0400 Body weight 78.9 kg Krislyn Aberegg PA Work Phone: [facility] 08-09-2024 13:17-0400 Diastolic blood pressure 88 mm[Hg] Krislyn Aberegg PA Work Phone: [facility] 08-09-2024 13:17-0400 Heart rate 76 /min Krislyn Aberegg PA Work Phone: [facility] 08-09-2024 13:17-0400 Respiratory rate 16 /min Krislyn Aberegg PA Work Phone: [facility] 08-09-2024 13:17-0400 SaO2% (BldA) [Mass fraction] 98 % Krislyn Aberegg PA Work Phone: [facility] 08-09-2024 13:17-0400 Systolic blood pressure 128 mm[Hg] Krislyn Aberegg PA Work Phone: [facility] 07-26-2024 09:12-0400 Diastolic blood pressure 92 mm[Hg] Anitha Pacheco DO Work Phone: [facility] Comment on above: pt has not taken BP meds yet today 07-26-2024 09:12-0400 Heart rate 73 /min Anitha Pacheco DO Work Phone: [facility] 07-26-2024 09:12-0400 SaO2% (BldA) [Mass fraction] 98 % Anitha Pacheco DO Work Phone: [facility] 07-26-2024 09:12-0400 Systolic blood pressure 167 mm[Hg] Anitha Pacheco DO Work Phone: [facility] Comment on above: pt has not taken BP meds yet today 07-25-2024 10:27-0400 Body height 149.9 cm Darshan Abarca MD Work Phone: [facility] 07-25-2024 10:27-0400 Body mass index (BMI) [Ratio] 34.54 kg/m2 Darshan Abarca MD Work Phone: [facility] 07-25-2024 10:27-0400 Body weight 77.56 kg Darshan Abarca MD Work Phone: [facility] 07-25-2024 10:27-0400 Diastolic blood pressure 83 mm[Hg] Darshan Abarca MD Work Phone: [facility] 07-25-2024 10:27-0400 Heart rate 72 /min Darshan Abarca MD Work Phone: [facility] 07-25-2024 10:27-0400 SaO2% (BldA) [Mass fraction] 98 % Darshan Abarca MD Work Phone: [facility] 07-25-2024 10:27-0400 Systolic blood pressure 133 mm[Hg] Darshan Abarca MD Work Phone: [facility] 07-18-2024 15:27-0400 Body mass index (BMI) [Ratio] 34.94 kg/m2 Sandy Holm APRN.CNP Work Phone: [facility] 07-18-2024 15:27-0400 Body weight 78.47 kg Sandy Suppan PULP GRINDER FEEDER.CIRCULAR RIPSAW OPERATOR Work Phone: [facility] 07-18-2024 15:27-0400 Diastolic blood pressure 80 mm[Hg] Sandy Suppan PULP GRINDER FEEDER.CIRCULAR RIPSAW OPERATOR Work Phone: [facility] 07-18-2024 15:27-0400 Heart rate 78 /min Sandy Suppan PULP GRINDER FEEDER.CIRCULAR RIPSAW OPERATOR Work Phone: [facility] 07-18-2024 15:27-0400 Respiratory rate 18 /min Sandy Suppan PULP GRINDER FEEDER.CIRCULAR RIPSAW OPERATOR Work Phone: [facility] 07-18-2024 15:27-0400 SaO2% (BldA) [Mass fraction] 97 % Sandy Suppan PULP GRINDER FEEDER.CIRCULAR RIPSAW OPERATOR Work Phone: [facility] 07-18-2024 15:27-0400 Systolic blood pressure 124 mm[Hg] Sandy Suppan PULP GRINDER FEEDER.CIRCULAR RIPSAW OPERATOR Work Phone: [facility] 06-08-2024 15:55-0400 Body mass index (BMI) [Ratio] 36.74 kg/m2 Fabiana Stephenson PULP GRINDER FEEDER.CIRCULAR RIPSAW OPERATOR Work Phone: [facility] 06-08-2024 15:55-0400 Body temperature 98.29 [degF] Fabiana Stephenson PULP GRINDER FEEDER.CIRCULAR RIPSAW OPERATOR Work Phone: [facility] 06-08-2024 15:55-0400 Body weight 82.5 kg Fabiana Stephenson PULP GRINDER FEEDER.CIRCULAR RIPSAW OPERATOR Work Phone: [facility] 06-08-2024 15:55-0400 Diastolic blood pressure 84 mm[Hg] Fabiana Stephenson PULP GRINDER FEEDER.CIRCULAR RIPSAW OPERATOR Work Phone: [facility] 06-08-2024 15:55-0400 Heart rate 94 /min Fabiana Stephenson PULP GRINDER FEEDER.CIRCULAR RIPSAW OPERATOR Work Phone: [facility] 06-08-2024 15:55-0400 Respiratory rate 20 /min Fabiana Stephenson PULP GRINDER FEEDER.CIRCULAR RIPSAW OPERATOR Work Phone: [facility] 06-08-2024 15:55-0400 SaO2% (BldA) [Mass fraction] 98 % Fabiana Stephenson PULP GRINDER FEEDER.CIRCULAR RIPSAW OPERATOR Work Phone: [facility] 06-08-2024 15:55-0400 Systolic blood pressure 140 mm[Hg] Fabiana Stephenson PULP GRINDER FEEDER.CIRCULAR RIPSAW OPERATOR Work Phone: [facility] 06-02-2024 11:08-0400 Body mass index (BMI) [Ratio] 35.95 kg/m2 Sandy Suppan PULP GRINDER FEEDER.CIRCULAR RIPSAW OPERATOR Work Phone: [facility] 06-02-2024 11:08-0400 Body weight 80.74 kg Sandy Suppan PULP GRINDER FEEDER.CIRCULAR RIPSAW OPERATOR Work Phone: [facility] 06-02-2024 11:08-0400 Diastolic blood pressure 76 mm[Hg] Sandy Suppan PULP GRINDER FEEDER.CIRCULAR RIPSAW OPERATOR Work Phone: [facility] 06-02-2024 11:08-0400 Heart rate 80 /min Sandy Suppan PULP GRINDER FEEDER.CIRCULAR RIPSAW OPERATOR Work Phone: [facility] 06-02-2024 11:08-0400 SaO2% (BldA) [Mass fraction] 98 % Sandy Suppan PULP GRINDER FEEDER.CIRCULAR RIPSAW OPERATOR Work Phone: [facility] 06-02-2024 11:08-0400 Systolic blood pressure 128 mm[Hg] Sandy Suppan PULP GRINDER FEEDER.CIRCULAR RIPSAW OPERATOR Work Phone: [facility] 02-22-2024 14:22-0400 Body height 149.9 cm Anitra Juarez MD Work Phone: [facility] 02-22-2024 14:22-0400 Body weight 82.56 kg Anitra Juarez MD Work Phone: [facility] 02-22-2024 14:22-0400 Diastolic blood pressure 84 mm[Hg] Anitra Juarez MD Work Phone: [facility] 02-22-2024 14:22-0400 Heart rate 93 /min Anitra Juarez MD Work Phone: [facility] 02-22-2024 14:22-0400 Respiratory rate 18 /min Anitra Juarez MD Work Phone: [facility] 02-22-2024 14:22-0400 Systolic blood pressure 135 mm[Hg] Anitra Juarez MD Work Phone: [facility] 01-20-2024 15:41-0400 Body temperature 99.19 [degF] Fabiana Sachin PULP GRINDER FEEDER.CIRCULAR RIPSAW OPERATOR Work Phone: [facility] 01-20-2024 15:41-0400 Body weight 83.8 kg Fabiana Sachin PULP GRINDER FEEDER.CIRCULAR RIPSAW OPERATOR Work Phone: [facility] 01-20-2024 15:41-0400 Diastolic blood pressure 84 mm[Hg] Fabiana Sachin PULP GRINDER FEEDER.CIRCULAR RIPSAW OPERATOR Work Phone: [facility] 01-20-2024 15:41-0400 Heart rate 96 /min Fabiana Sachin PULP GRINDER FEEDER.CIRCULAR RIPSAW OPERATOR Work Phone: [facility] 01-20-2024 15:41-0400 Respiratory rate 18 /min Fabiana Sachin PULP GRINDER FEEDER.CIRCULAR RIPSAW OPERATOR Work Phone: [facility] 01-20-2024 15:41-0400 SaO2% (BldA) [Mass fraction] 99 % Fabiana Sachin PULP GRINDER FEEDER.CIRCULAR RIPSAW OPERATOR Work Phone: [facility] 01-20-2024 15:41-0400 Systolic blood pressure 144 mm[Hg] Fabiana Sachin PULP GRINDER FEEDER.CIRCULAR RIPSAW OPERATOR Work Phone: [facility] 12-10-2023 14:15-0500 Diastolic blood pressure 84 mm[Hg] Maren Rhodes MD Work Phone: [facility] 12-10-2023 14:15-0500 Systolic blood pressure 144 mm[Hg] Maren Rhodes MD Work Phone: [facility] 12-10-2023 14:14-0500 Body temperature 97.81 [degF] Maren Rhodes MD Work Phone: [facility] 02-01-2024 14:14-0500 Heart rate 82 /min Maren Rhodes MD Work Phone: [facility] 10-19-2023 14:34-0500 Body weight 83.92 kg Darshan Abarca MD Work Phone: [facility] 10-19-2023 14:34-0500 Diastolic blood pressure 86 mm[Hg] Darshan Abarca MD Work Phone: [facility] 10-19-2023 14:34-0500 Heart rate 77 /min Darshan Abarca MD Work Phone: [facility] 10-19-2023 14:34-0500 Respiratory rate 16 /min Darshan Abarca MD Work Phone: [facility] 10-19-2023 14:34-0500 SaO2% (BldA) [Mass fraction] 98 % Darshan Abarca MD Work Phone: [facility] 10-19-2023 14:34-0500 Systolic blood pressure 150 mm[Hg] Darshan Abarca MD Work Phone: [facility] 09-08-2023 15:00-0400 Body weight 86.18 kg NA Faustin PA-C Work Phone: [facility] 09-08-2023 15:00-0400 Diastolic blood pressure 80 mm[Hg] NA Faustin PA-C Work Phone: [facility] 09-08-2023 15:00-0400 Heart rate 81 /min NA Faustin PA-C Work Phone: [facility] 09-08-2023 15:00-0400 Respiratory rate 16 /min NA Faustin PA-C Work Phone: [facility] 09-08-2023 15:00-0400 SaO2% (BldA) [Mass fraction] 97 % NA Faustin PA-C Work Phone: [facility] 09-08-2023 15:00-0400 Systolic blood pressure 152 mm[Hg] NA Faustin PA-C Work Phone: [facility] 08-25-2023 16:10-0400 Body height 149.9 cm Evan Johnson PA-C Work Phone: [facility] 08-25-2023 16:10-0400 Body temperature 98.01 [degF] Evan Johnson PA-C Work Phone: [facility] 08-25-2023 16:10-0400 Body weight 87 kg Evan Johnson PA-C Work Phone: [facility] 08-25-2023 16:10-0400 Diastolic blood pressure 98 mm[Hg] Evan Johnson PA-C Work Phone: [facility] 08-25-2023 16:10-0400 Heart rate 74 /min Evan Johnson PA-C Work Phone: [facility] 08-25-2023 16:10-0400 Respiratory rate 14 /min Evan Johnson PA-C Work Phone: [facility] 08-25-2023 16:10-0400 SaO2% (BldA) [Mass fraction] 100 % Evan Johnson PA-C Work Phone: [facility] 08-25-2023 16:10-0400 Systolic blood pressure 166 mm[Hg] Evan Johnson PA-C Work Phone: [facility] 08-17-2023 11:56-0400 Diastolic blood pressure 88 mm[Hg] Angelika Podlogar PULP GRINDER FEEDER.CIRCULAR RIPSAW OPERATOR Work Phone: [facility] 08-17-2023 11:56-0400 Heart rate 70 /min Angelika Podlogar PULP GRINDER FEEDER.CIRCULAR RIPSAW OPERATOR Work Phone: [facility] 08-17-2023 11:56-0400 Respiratory rate 16 /min Angelika Podlogar PULP GRINDER FEEDER.CIRCULAR RIPSAW OPERATOR Work Phone: [facility] 08-17-2023 11:56-0400 SaO2% (BldA) [Mass fraction] 96 % Angelika Podlogar PULP GRINDER FEEDER.CIRCULAR RIPSAW OPERATOR Work Phone: [facility] 08-17-2023 11:56-0400 Systolic blood pressure 144 mm[Hg] Angelika Podlogar PULP GRINDER FEEDER.CIRCULAR RIPSAW OPERATOR Work Phone: [facility] 08-17-2023 11:16-0400 Diastolic blood pressure 88 mm[Hg] Angelika Podlogar PULP GRINDER FEEDER.CIRCULAR RIPSAW OPERATOR Work Phone: [facility] 08-17-2023 11:16-0400 Heart rate 70 /min Angelika Podlogar PULP GRINDER FEEDER.CIRCULAR RIPSAW OPERATOR Work Phone: [facility] 08-17-2023 11:16-0400 Respiratory rate 16 /min Angelika Podlogar PULP GRINDER FEEDER.CIRCULAR RIPSAW OPERATOR Work Phone: [facility] 08-17-2023 11:16-0400 SaO2% (BldA) [Mass fraction] 96 % Angelika Podlogar PULP GRINDER FEEDER.CIRCULAR RIPSAW OPERATOR Work Phone: [facility] 08-17-2023 11:16-0400 Systolic blood pressure 144 mm[Hg] Angelika Podlogar PULP GRINDER FEEDER.CIRCULAR RIPSAW OPERATOR Work Phone: [facility] 08-03-2023 14:38-0400 Body height 149.9 cm Jacquie Evans MD Work Phone: [facility] 08-03-2023 14:38-0400 Body weight 85.73 kg Jacquie Evans MD Work Phone: [facility] 08-03-2023 14:38-0400 Diastolic blood pressure 88 mm[Hg] Jacquie Evans MD Work Phone: [facility] 08-03-2023 14:38-0400 Heart rate 75 /min Jacquie Evans MD Work Phone: [facility] 08-03-2023 14:38-0400 Respiratory rate 16 /min Jacquie Evans MD Work Phone: [facility] 08-03-2023 14:38-0400 SaO2% (BldA) [Mass fraction] 97 % Jacquie Evans MD Work Phone: [facility] 08-03-2023 14:38-0400 Systolic blood pressure 138 mm[Hg] Jacquie Evans MD Work Phone: [facility] 07-16-2023 16:23-0400 Body weight 86.18 kg NA Faustin PA-C Work Phone: [facility] 07-16-2023 16:23-0400 Diastolic blood pressure 88 mm[Hg] NA Faustin PA-C Work Phone: [facility] 07-16-2023 16:23-0400 Heart rate 75 /min NA Faustin PA-C Work Phone: [facility] 07-16-2023 16:23-0400 SaO2% (BldA) [Mass fraction] 97 % NA Faustin PA-C Work Phone: [facility] 07-16-2023 16:23-0400 Systolic blood pressure 138 mm[Hg] NA Faustin PA-C Work Phone: [facility] 06-17-2023 13:32-0400 Diastolic blood pressure 86 mm[Hg] Angelika Podlogar PULP GRINDER FEEDER.CIRCULAR RIPSAW OPERATOR Work Phone: [facility] 06-17-2023 13:32-0400 Heart rate 89 /min Angelika Podlogar PULP GRINDER FEEDER.CIRCULAR RIPSAW OPERATOR Work Phone: [facility] 06-17-2023 13:32-0400 Systolic blood pressure 163 mm[Hg] Angelika Podlogar PULP GRINDER FEEDER.CIRCULAR RIPSAW OPERATOR Work Phone: [facility] 06-17-2023 13:02-0400 Body weight 86.09 kg Angelika Podlogar PULP GRINDER FEEDER.CIRCULAR RIPSAW OPERATOR Work Phone: [facility] 06-17-2023 13:02-0400 Respiratory rate 16 /min Angelika Podlogar PULP GRINDER FEEDER.CIRCULAR RIPSAW OPERATOR Work Phone: [facility] 06-17-2023 13:02-0400 SaO2% (BldA) [Mass fraction] 98 % Angelika Podlogar PULP GRINDER FEEDER.CIRCULAR RIPSAW OPERATOR Work Phone: [facility] 11-28-2022 14:21-0500 Body height 147.3 cm Maren Rhodes MD Work Phone: [facility] 11-28-2022 14:21-0500 Body temperature 97.59 [degF] Maren Rhodes MD Work Phone: [facility] 11-28-2022 14:21-0500 Body weight 79.38 kg Maren Rhodes MD Work Phone: [facility] 11-28-2022 14:21-0500 Diastolic blood pressure 86 mm[Hg] Maren Rhodes MD Work Phone: [facility] 11-28-2022 14:21-0500 Heart rate 84 /min Maren Rhodes MD Work Phone: [facility] 11-28-2022 14:21-0500 Systolic blood pressure 122 mm[Hg] Maren Rhodes MD Work Phone: [facility] 10-23-2022 14:14-0500 Heart rate 71 /min Daisha Junior PULP GRINDER FEEDER.CIRCULAR RIPSAW OPERATOR Work Phone: [facility] 10-23-2022 14:14-0500 Respiratory rate 16 /min Daisha Junior PULP GRINDER FEEDER.CIRCULAR RIPSAW OPERATOR Work Phone: [facility] 10-23-2022 14:14-0500 SaO2% (BldA) [Mass fraction] 96 % Daisha Junior PULP GRINDER FEEDER.CIRCULAR RIPSAW OPERATOR Work Phone: [facility] 09-23-2022 13:00-0500 Body height 149.9 cm Ivan Alvarez Jr., MD Work Phone: [facility] 09-23-2022 13:00-0500 Body weight 82.56 kg Ivan Alvarez Jr., MD Work Phone: [facility] 09-15-2022 14:24-0500 Body weight 83.01 kg NA Ramin PA-C Work Phone: [facility] 09-15-2022 14:24-0500 Diastolic blood pressure 70 mm[Hg] NA Faustin PA-C Work Phone: [facility] 09-15-2022 14:24-0500 Heart rate 98 /min NA Faustin PA-C Work Phone: [facility] 09-15-2022 14:24-0500 Respiratory rate 16 /min NA Faustin PA-C Work Phone: [facility] 09-15-2022 14:24-0500 SaO2% (BldA) [Mass fraction] 97 % NA Faustin PA-C Work Phone: [facility] 09-15-2022 14:24-0500 Systolic blood pressure 138 mm[Hg] NA Faustin PA-C Work Phone: [facility] 09-02-2022 16:07-0400 Body weight 84.73 kg NA Faustin PA-C Work Phone: [facility] 08-11-2022 15:04-0400 Body weight 87.54 kg NA Faustin PA-C Work Phone: [facility] 08-11-2022 15:04-0400 Diastolic blood pressure 74 mm[Hg] NA Faustin PA-C Work Phone: [facility] 08-11-2022 15:04-0400 Heart rate 78 /min NA Faustin PA-C Work Phone: [facility] 08-11-2022 15:04-0400 Respiratory rate 16 /min NA Faustin PA-C Work Phone: [facility] 08-11-2022 15:04-0400 SaO2% (BldA) [Mass fraction] 97 % NA Faustin PA-C Work Phone: [facility] 08-11-2022 15:04-0400 Systolic blood pressure 122 mm[Hg] NA Faustin PA-C Work Phone: [facility] 07-30-2022 16:00-0400 Body temperature 97.39 [degF] Venessa Rosa MD Work Phone: [facility] 07-30-2022 16:00-0400 Diastolic blood pressure 78 mm[Hg] Venessa Rosa MD Work Phone: [facility] 07-30-2022 16:00-0400 Heart rate 81 /min Venessa Rosa MD Work Phone: [facility] 07-30-2022 16:00-0400 SaO2% (BldA) [Mass fraction] 96 % Venessa Rosa MD Work Phone: [facility] 07-30-2022 16:00-0400 Systolic blood pressure 130 mm[Hg] Venessa Rosa MD Work Phone: [facility] 07-28-2022 16:10-0400 Body height 147.3 cm Elissa Kalessa PULP GRINDER FEEDER.CIRCULAR RIPSAW OPERATOR Work Phone: [facility] 07-28-2022 16:10-0400 Body weight 86.64 kg Elissa Washingtona PULP GRINDER FEEDER.CIRCULAR RIPSAW OPERATOR Work Phone: [facility] 07-07-2022 15:58-0400 Body height 147.3 cm Venessa Rosa MD Work Phone: [facility] 07-07-2022 15:58-0400 Body temperature 97.7 [degF] Venessa Rosa MD Work Phone: [facility] 07-07-2022 15:58-0400 Body weight 88 kg Venessa Rosa MD Work Phone: [facility] 07-07-2022 15:58-0400 Diastolic blood pressure 72 mm[Hg] Venessa Rosa MD Work Phone: [facility] 07-07-2022 15:58-0400 Heart rate 97 /min Venessa Rosa MD Work Phone: [facility] 07-07-2022 15:58-0400 SaO2% (BldA) [Mass fraction] 97 % Venessa Rosa MD Work Phone: [facility] 07-07-2022 15:58-0400 Systolic blood pressure 124 mm[Hg] Venessa Rosa MD Work Phone: [facility] 07-01-2022 15:43-0400 Body weight 88 kg NA Faustin PA-C Work Phone: [facility] 07-01-2022 15:43-0400 Diastolic blood pressure 78 mm[Hg] NA Faustin PA-C Work Phone: [facility] 07-01-2022 15:43-0400 Heart rate 90 /min NA Faustin PA-C Work Phone: [facility] 07-01-2022 15:43-0400 Respiratory rate 16 /min NA Faustin PA-C Work Phone: [facility] 07-01-2022 15:43-0400 SaO2% (BldA) [Mass fraction] 97 % NA Faustin PA-C Work Phone: [facility] 07-01-2022 15:43-0400 Systolic blood pressure 130 mm[Hg] NA Faustin PA-C Work Phone: [facility] 04-22-2022 15:03-0400 Body height 146.1 cm Shirin Draper APRN.CIRCULAR RIPSAW OPERATOR Work Phone: [facility] 04-22-2022 15:03-0400 Body weight 85.73 kg Shirin Draper APRN.CIRCULAR RIPSAW OPERATOR Work Phone: [facility] 04-22-2022 15:03-0400 Diastolic blood pressure 78 mm[Hg] Shirin Draper PULP GRINDER FEEDER.CIRCULAR RIPSAW OPERATOR Work Phone: [facility] 04-22-2022 15:03-0400 Systolic blood pressure 128 mm[Hg] Shirin Draper PULP GRINDER FEEDER.CIRCULAR RIPSAW OPERATOR Work Phone: [facility] 02-25-2022 14:46-0400 Body weight 85.73 kg Jacquie Evans MD Work Phone: [facility] Encounters Encounter Date Encounter Type Care Provider Facility Start: 06-05-2025 ambulatory Andre Santana Facility:[facility] Start: 05-16-2025 End: 05-16-2025 ambulatory ANDRE SANTANA Facility:[facility] Start: 05-16-2025 End: 05-16-2025 Patient encounter procedure Andre Santana MD Work Phone: [facility] Comment on above: Primary hypertension (Primary Dx); Mixed hyperlipidemia; Atrial tachycardia (HCC); 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; FRIEDA (obstructive sleep apnea); Granulomatous lung disease (HCC); Stage 3b chronic kidney disease (HCC); Sjoegren syndrome (HCC); Prediabetes; Post PTCA; Anxiety; Medication monitoring encounter Start: 04-24-2025 End: 04-24-2025 Patient encounter procedure Star Lofton MD Work Phone: Endocrine Surgery Comment on above: Solitary thyroid nod ule (Primary Dx); Multiple thyroid nodules Start: 04-24-2025 End: 04-24-2025 ambulatory TULIO PASTOR [facility] Facility:[facility] Start: 04-22-2025 End: 05-02-2025 Follow-up encounter Andre Santana MD Work Phone: [facility] [place] Comment on above: Results Start: 04-21-2025 End: 04-21-2025 Subsequent hospital visit by physician [facility] [place] Work Phone: Radiology Comment on above: Neck pain [M54.2] Start: 04-21-2025 End: 04-21-2025 ambulatory ANDRE SANTANA Facility:[facility] Start: 04-17-2025 End: 04-17-2025 ambulatory ANDRE SANTANA Facility:[facility] Start: 04-17-2025 End: 04-17-2025 Patient encounter procedure [facility] Comment on above: Neck pain (Primary D x); Lightheaded; Primary hypertension; Mixed hyperlipidemia; Atrial tachycardia (HCC); 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 Start: 03-07-2025 End: 03-08-2025 ambulatory ANDRE SANTANA Facility:[facility] Start: 03-07-2025 End: 03-08-2025 Patient encounter procedure Tulio Calderón MD Work Phone: Endocrinology Comment on above: Multiple thyroid nod ules (Primary Dx) Start: 02-28-2025 End: 02-28-2025 Emergency department patient visit [facility] Facility:[facility] Start: 02-17-2025 ambulatory Darshan Abarca Facility:[facility] Start: 02-06-2025 End: 02-06-2025 ambulatory ANDRE Garza ESTHER Facility:[facility] Start: 02-06-2025 End: 02-06-2025 Patient encounter procedure Tulio Calderón MD Work Phone: Endocrinology Comment on above: Multiple thyroid nod ules (Primary Dx) Start: 01-23-2025 End: 01-23-2025 Follow-up encounter Maren Rhodes MD Work Phone: Rheumatology Start: 01-20-2025 End: 01-20-2025 ambulatory MAREN RHODES Facility:[facility] Start: 01-20-2025 End: 01-20-2025 Subsequent hospital visit by physician [facility] Work Phone: Radiology Comment on above: Sjogren's syndrome w ithout extraglandular involvement (HCC) [M35.00] Start: 01-13-2025 End: 02-06-[address] Andre Santana MD Work Phone: [facility] Work Phone: Start: 01-13-2025 End: 02-06-2025 Discharged Recurring Darshan Abarca MD -Cardiac Rehab Work Phone: Start: 01-06-2025 End: 01-06-2025 ambulatory Darshan Abarca Facility:[facility] Start: 01-06-2025 End: 01-06-2025 Discharged Recurring Darshan Abarca MD -Cardiac Rehab Work Phone: Start: 01-06-2025 End: 01-06-2025 Follow-up encounter Maren Rhodes MD Work Phone: Rheumatology Start: 12-26-2024 End: 12-26-2024 Orders Only Darshan Abarca MD Work Phone: [facility] Cardiology [place] Comment on above: SVT (supraventricula r tachycardia) (HCC) (Primary Dx) Refill Request Patient Update Results (Chest CT) Start: 12-22-2024 End: 01-03-2025 Follow-up encounter Andre Santana MD Work Phone: Pulmonology [facility] Start: 12-20-2024 End: 12-20-2024 ambulatory MAREN RHODES Facility:[facility] Start: 12-19-2024 End: 12-19-2024 ambulatory ANDRE SANTANA Facility:[facility] Start: 12-19-2024 End: 12-19-2024 Subsequent hospital visit by physician [facility] (I-Stat) Work Phone: Cat Scan Comment on above: Lung nodules [R91.8] Start: 12-16-2024 End: 12-16-2024 Telephone encounter Maren Rhodes MD Work Phone: Rheumatology Comment on above: Received Outside Med ical Records Start: 12-15-2024 End: 12-15-2024 ambulatory ANDRE SANTANA Facility:[facility] Start: 12-15-2024 End: 12-15-2024 Patient encounter procedure Maren Rhodes MD Work Phone: Rheumatology Comment on above: Sjogren's syndrome w ithout extraglandular involvement (HCC) (Primary Dx); Osteopenia, unspecified location; Rash and nonspecific skin eruption; GUERRA (dyspnea on exertion) Start: 12-09-2024 End: 12-09-2024 ambulatory [facility] Facility:[facility] Start: 12-09-2024 End: 12-09-2024 Discharged Recurring Darshan Abarca MD -Cardiac Rehab Work Phone: Start: 12-09-2024 End: 12-09-2024 Patient encounter procedure Jacquie Evans MD Work Phone: Pulmonary Medicine Comment on above: Lung nodules (Primar y Dx); Granulomatous lung disease (HCC); SOB (shortness of breath) Start: 11-28-2024 End: 12-06-2024 Telephone encounter Andre Santana MD Work Phone: Family Medicine [place] Comment on above: Results Start: 11-25-2024 End: 11-25-2024 Telephone encounter Andre Santana MD Work Phone: Family Medicine [place] Comment on above: Results Start: 11-25-2024 End: 11-25-2024 [facility] Facility:[facility] Start: 11-25-2024 End: 11-25-2024 Subsequent hospital visit by physician 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; Granulomatous lung disease (HCC); Thyroid nodule; Stage 3b chronic kidney disease (HCC); Sjoegren syndrome (HCC); Prediabetes; Microscopic hematuria; Granulomatous disease (HCC); Palpitations Start: 11-08-2024 End: 11-08-2024 Refill Andre Santana MD Work Phone: [facility] Comment on above: Refill Request Start: 11-07-2024 End: 11-08-2024 ambulatory Dorianmaganvin Abarca Facility:[facility] Start: 11-07-2024 End: 11-08-2024 Discharged Recurring Darshan Abarca MD -Cardiac Rehab Work Phone: Start: 10-17-2024 End: 10-17-2024 Patient encounter procedure Darshan Abarca MD -Cardiac Rehab Work Phone: Start: 10-17-2024 End: 10-17-2024 ambulatory Analisavin Jakeemani Facility:[facility] Start: 10-10-2024 End: 10-10-[address] 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 Start: 09-26-2024 End: 09-26-2024 Refill Andre Santana MD Work Phone: [facility] Comment on above: Refill Request Start: 09-20-2024 End: 09-20-2024 Emergency department patient visit ANDRE SANTANA [facility] Comment on above: Visit for wound chec k (Primary Dx); Anticoagulant long-term use Start: 09-16-2024 End: 09-16-2024 Telephone encounter Trang Philippe APRN.CIRCULAR RIPSAW OPERATOR Work Phone: [facility] Medicine [place] Comment on above: Results Start: 09-15-2024 End: 09-15-2024 ambulatory ANDRE SANTANA Facility:[facility] Start: 09-15-2024 End: 09-15-2024 Patient encounter procedure Sandy Holm PULP GRINDER FEEDER.CIRCULAR RIPSAW OPERATOR Work Phone: [facility] [place] Comment on above: Essential hypertensi on with goal blood pressure less than 140/90 (Primary Dx) Start: 09-12-2024 End: 09-12-2024 Office outpatient visit 25 minutes Trang Philippe PULP GRINDER FEEDER.CIRCULAR RIPSAW OPERATOR Work Phone: [facility] [place] Comment on above: Essential hypertensi on with goal blood pressure less than 140/90 (Primary Dx); Anemia, unspecified type; Fatigue, unspecified type; Gross hematuria Start: 09-12-2024 End: 09-12-2024 [facility] Facility:[facility] Start: 09-08-2024 End: 09-08-2024 [facility] Facility:[facility] Start: 08-29-2024 End: 08-29-2024 Telephone encounter Trang Philippe APRN.CIRCULAR RIPSAW OPERATOR Work Phone: [facility] [place] Comment on above: Results Start: 08-24-2024 End: 08-24-2024 Refill Andre Santana MD Work Phone: [facility] [place] Comment on above: Refill Request Start: 08-16-2024 End: 08-17-2024 Telephone encounter Trang Philippe APRN.CIRCULAR RIPSAW OPERATOR Work Phone: [facility] [place] Comment on above: Results Start: 08-13-2024 End: 08-13-2024 ambulatory ANDRE SANTANA Facility:[facility] Start: 08-12-2024 End: 08-12-2024 ambulatory ANDRE SANTANA Facility:[facility] Start: 08-12-2024 End: 08-12-2024 Patient encounter procedure Andre Santana MD Work Phone: [facility] [place] Comment on above: Dermatitis (Primary Dx); ST elevation myocardial infarction (STEMI) involving other coronary artery of inferior wall (HCC); Pseudoaneurysm (HCC); Essential hypertension with goal blood pressure less than 140/90; Hypertension, essential; 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; Fatigue, unspecified type; Mixed hyperlipidemia Start: 08-10-2024 End: 08-10-2024 Telephone encounter Andre Santana MD Work Phone: Family [facility] Comment on above: Patient Question Start: 08-09-2024 End: 08-09-2024 ambulatory JAZMIN PALUMBO Facility:[facility] Start: 08-09-2024 End: 08-09-2024 Patient encounter procedure Jazmin ANTONIO Work Phone: [facility] Comment on above: Pain of right thumb (Primary Dx) Start: 08-09-2024 End: 08-09-2024 Subsequent hospital visit by physician [facility] [place] Work Phone: Radiology Comment on above: Pain of right thumb [M79.644] Start: 07-26-2024 End: 07-26-2024 ambulatory ANDRE SANTANA Facility:[facility] Start: 07-26-2024 End: 07-26-2024 Patient encounter procedure Anitha Pacheco DO Work Phone: Vascular Surgery Comment on above: Pseudoaneurysm (HCC) Start: 07-25-2024 End: 07-25-2024 ambulatory ANDRE SANTANA Facility:[facility] Start: 07-25-2024 End: 07-25-2024 Patient encounter procedure Darshan Abarca MD Work Phone: Cardiology Comment on above: Post PTCA (Primary D x); Atrial tachycardia (HCC); 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 Start: 07-18-2024 End: 07-18-2024 ambulatory ANDRE SANTANA Facility:[facility] Start: 07-18-2024 End: 07-18-2024 Office outpatient visit 25 minutes Sandy Holm APRN.CNP Work Phone: Family Medicine [place] Comment on above: ST elevation myocard ial infarction (STEMI) involving other coronary artery of inferior wall (HCC) (Primary Dx); Essential hypertension with goal blood pressure less than 140/90; Pseudoaneurysm (HCC); Enlarged thyroid; Mixed hyperlipidemia; Atrial tachycardia (HCC); FRIEDA (obstructive sleep apnea) Start: 07-14-2024 End: 07-14-2024 Telephone encounter Andre Santana MD Work Phone: [facility] [place] Comment on above: Patient Question Start: 07-07-2024 End: 07-07-2024 Telephone encounter Andre Santana MD Work Phone: Family [facility] [place] Comment on above: Patient Update Start: 06-30-2024 End: 07-05-2024 Telephone encounter Darshan Abarca MD Work Phone: Cardiology Comment on above: Refill Request Start: 06-27-2024 End: 09-06-2024 Telephone encounter Darshan Abarca MD Work Phone: Cardiology Comment on above: Patient Update; Appo intment Start: 06-08-2024 End: 06-08-2024 Subsequent hospital visit by physician X[facility] [place] Work Phone: Radiology Comment on above: Injury of right ankl e, initial encounter [S99.911A] Start: 06-08-2024 End: 06-08-2024 [facility] Facility:[facility] Start: 06-08-2024 End: 06-08-2024 Patient encounter procedure Fabiana Stephenson APRN.CIRCULAR RIPSAW OPERATOR Work Phone: [facility] Comment on above: Injury of right ankl e, initial encounter (Primary Dx) Start: 06-07-2024 End: 07-04-2024 Orders Only Sandy Holm PULP GRINDER FEEDER.CIRCULAR RIPSAW OPERATOR Work Phone: [facility] [place] Start: 06-03-2024 Telephone encounter Sandy Holm APRN.CIRCULAR RIPSAW OPERATOR Work Phone: [facility] [place] Comment on above: Medication Problem; Patient Question Insurance Authorizat ion Start: 06-02-2024 End: 06-02-2024 [facility] Facility:[facility] Start: 06-02-2024 End: 06-02-2024 Office outpatient visit 25 minutes Sandy Isaias Isaac PULP GRINDER FEEDER.CIRCULAR RIPSAW OPERATOR Work Phone: [facility] [place] Comment on above: Actinic keratosis (P rimary Dx); Essential hypertension with goal blood pressure less than 140/90; Hypertension, essential; Stage 3b chronic kidney disease (HCC); Allergic dermatitis Start: 02-22-2024 End: 02-22-2024 Patient encounter procedure Anitra Juarez MD Work Phone: Urology Comment on above: Microscopic hematuri a (Primary Dx); Right renal stone; Vaginal atrophy Start: 01-23-2024 Telephone encounter Luc Faustin PA-C Work Phone: [facility] [place] Comment on above: Results Start: 01-21-2024 Telephone encounter Megha Chavis APRN.CIRCULAR RIPSAW OPERATOR Work Phone: [facility] Comment on above: Results Start: 01-20-2024 End: 01-20-2024 Subsequent hospital visit by physician [facility] [place] Work Phone: Radiology Comment on above: Acute cough [R05.1] Start: 01-20-2024 End: 01-20-2024 Patient encounter procedure Fabiana Stephenson APRN.CIRCULAR RIPSAW OPERATOR Work Phone: [facility] Comment on above: URI, acute (Primary Dx); Acute cough Start: 12-10-2023 End: 12-10-2023 Patient encounter procedure Maren Rhodes MD Work Phone: Rheumatology Comment on above: Sjogren's syndrome w ithout extraglandular involvement (HCC) (Primary Dx); Screening for osteoporosis; Osteopenia, unspecified location Start: 11-08-2023 Telephone encounter Beena baker PA-C Work Phone: [facility] Comment on above: Results Start: 10-19-2023 End: 10-19-2023 Patient encounter procedure Darshan Abarca MD Work Phone: Cardiology Comment on above: Primary hypertension (Primary Dx); Atrial tachycardia; Mixed hyperlipidemia Start: 09-22-2023 End: 09-22-2023 Subsequent hospital visit by physician [facility] (I-Stat) Work Phone: Cat Scan Comment on above: Microscopic hematuri a [R31.29] Start: 09-08-2023 End: 09-08-2023 Patient encounter procedure Luc Henrycristobal [place] Work Phone: [facility] [place] Comment on above: Hypertension, essent ial (Primary Dx) Start: 08-28-2023 Telephone encounter Evan colon PA-C Work Phone: Urology Comment on above: Results Start: 08-25-2023 End: 08-25-2023 Patient encounter procedure Evan Johnson PA-C Work Phone: Urology Comment on above: Microscopic hematuri a (Primary Dx); Atrophic vaginitis Start: 08-19-2023 Telephone encounter Angelika vann APRN.CIRCULAR RIPSAW OPERATOR Work Phone: [facility] [place] Comment on above: Results Start: 08-19-2023 End: 08-19-2023 Subsequent hospital visit by physician [facility] Work Phone: Radiology Start: 08-18-2023 Telephone encounter Andre Santana MD Work Phone: [facility] [place] Comment on above: Results Start: 08-17-2023 End: 08-17-2023 Patient encounter procedure Angelika Castelan APRN.CIRCULAR RIPSAW OPERATOR Work Phone: [facility] [place] Comment on above: RUQ pain (Primary Dx ); Symptoms of urinary tract infection Start: 08-17-2023 End: 08-17-2023 Patient encounter procedure Angelika Castelan APRN.CIRCULAR RIPSAW OPERATOR Work Phone: [facility] [place] Comment on above: APPOINTMENT CANCELLE D (Primary Dx) Start: 08-03-2023 End: 08-03-2023 Patient encounter procedure Jacquie Evans MD Work Phone: Pulmonary Medicine Comment on above: Lung nodule seen on imaging study (Primary Dx); History of lung surgery; Keratoconjunctivitis sicca, in Sjogren's syndrome (HCC) Start: 07-21-2023 Telephone encounter Andre Santana MD Work Phone: Family [facility] [place] Comment on above: Results Start: 07-16-2023 End: 07-16-2023 Patient encounter procedure Luc Lara Ramin [place] Work Phone: Family [facility] [place] Comment on above: Urinary frequency (P rimary Dx); Granulomatous lung disease (HCC); Consolidation of left lower lobe of lung (HCC); Atelectasis of left lung; Dehydration Start: 07-09-2023 Telephone encounter Luc Lara Ramin [place] Work Phone: Family [facility] [place] Comment on above: Results Start: 07-03-2023 End: 07-03-2023 Subsequent hospital visit by physician [facility] (I-Stat) Work Phone: Cat Scan Comment on above: Chest pain on breath ing [R07.1] Start: 06-30-2023 Telephone encounter Luc Marco Ramin [place] Work Phone: [facility] [place] Start: 06-19-2023 Telephone encounter Angelika vann APRN.CIRCULAR RIPSAW OPERATOR Work Phone: [facility] Comment on above: Results Start: 06-17-2023 End: 06-17-2023 Patient encounter procedure Angelika Castelan APRN.CIRCULAR RIPSAW OPERATOR Work Phone: [facility] [place] Comment on above: Palpitations (Primar y Dx); Essential hypertension with goal blood pressure less than 140/90 Start: 06-09-2023 Telephone encounter Luc Marco Ramin [place] Work Phone: [facility] [place] Comment on above: Results Start: 06-08-2023 End: 06-08-2023 Subsequent hospital visit by physician [facility] [place] Work Phone: Radiology Comment on above: Left-sided chest parish n [R07.9] Start: 01-15-2023 Documentation procedure Mammog ra[facility]em [facility]inator [facility] Start: 01-15-2023 Letter encounter Mammography Coordinator [facility] Department Start: 01-15-2023 Telephone encounter Andre Santana MD Work Phone: [facility] [place] Comment on above: Results Start: 01-14-2023 Telephone encounter Maren reza MD Work Phone: Rheumatology Comment on above: Results Start: 01-08-2023 Telephone encounter Maren reza MD Work Phone: Rheumatology Comment on above: Results Start: 01-07-2023 End: 01-07-2023 Subsequent hospital visit by physician [facility] [place] Work Phone: Radiology Comment on above: Pain in right hip [M 25.551] Start: 01-06-2023 Orders Only Andre Santana MD Work Phone: [place] Comment on above: Visit for screening mammogram (Primary Dx) Start: 11-28-2022 End: 11-28-2022 Patient encounter procedure Maren Rhodes MD Work Phone: Rheumatology Comment on above: Sjoegren syndrome (H CC) (Primary Dx); Pain in right hip; Sicca syndrome (HCC); Malaise and fatigue; Encounter for screening for osteoporosis; Elevated sed rate; Raynaud's disease without gangrene Start: 10-24-2022 Telephone encounter Daisha otoole APRN.CIRCULAR RIPSAW OPERATOR Work Phone: [facility] [place] Comment on above: Patient Update (Cons ult) Start: 10-23-2022 End: 10-23-2022 ambulatory Luc FAUSTIN Facility:[facility] Start: 10-23-2022 End: 10-23-2022 Patient encounter procedure Daisha Junior APRN.CIRCULAR RIPSAW OPERATOR Work Phone: [facility] Comment on above: Spinal stenosis, lum bar region with neurogenic claudication (Primary Dx); Sciatica, right side; Other chronic pain Start: 10-21-2022 End: 10-21-2022 ambulatory Juliann Guido PT Work Phone: [facility] Comment on above: Sciatica, right side (Primary Dx) Start: 10-17-2022 End: 10-17-2022 ambulatory Holly Kashuba [employer] SWITCHBOARD OPERATOR Work Phone: [facility] Comment on above: Sciatica, right side (Primary Dx) Start: 10-10-2022 End: 10-10-2022 ambulatory Juliann Guido PT Work Phone: [facility] Comment on above: Sciatica, right side (Primary Dx) Start: 10-07-2022 End: 10-07-2022 ambulatory Juliann Guido PT Work Phone: [facility] Comment on above: Sciatica, right side (Primary Dx) Start: 09-30-2022 End: 09-30-2022 ambulatory Juliann Guido PT Work Phone: [facility] Comment on above: Sciatica, right side (Primary Dx) Start: 09-23-2022 End: 09-23-2022 Patient encounter procedure Ivan Alvarez MD Work Phone: Urology Comment on above: Feeling of incomplet e bladder emptying Start: 09-17-2022 End: 09-17-2022 ambulatory Samreen Powell PT [facility] Comment on above: Sciatica, right side (Primary Dx) Start: 09-15-2022 End: 09-15-2022 Patient encounter procedure Luc Faustin PA-C Work Phone: [facility] [place] Comment on above: Rash (Primary Dx) Start: 09-12-2022 End: 09-12-2022 ambulatory Holly Gutierrezba [employer] SWITCHBOARD OPERATOR Work Phone: [facility] Comment on above: Sciatica, right side (Primary Dx) Start: 09-09-2022 End: 09-09-2022 ambulatory Holly Gutierrezba [employer] SWITCHBOARD OPERATOR Work Phone: [facility] Comment on above: Sciatica, right side (Primary Dx) Start: 09-07-2022 Telephone encounter [facility]ustin [facility]-C [facility] Comment on above: Results Results, Lab Start: 09-05-2022 End: 09-05-2022 Subsequent hospital visit by physician [facility] (I-Stat/1.5t) Work Phone: Radiology Comment on above: Right lumbar radicul itis [M54.16] Start: 09-02-2022 End: 09-02-2022 Patient encounter airam Faustin PA-C Work Phone: [facility] Comment on above: Right lumbar radicul itis (Primary Dx); Lumbar stenosis with neurogenic claudication; Urinary pain; Intractable pain; Foot drop, left; Bilirubin in urine Start: 09-01-2022 Refill Andre Santana MD Work Phone: [facility] Comment on above: Refill Request Start: 08-29-2022 Telephone encounter Jacquie Evans MD Work Phone: Pulmonary Medicine Comment on above: Results (Chest x-ray ) Start: 08-28-2022 End: 08-28-2022 Subsequent hospital visit by physician [facility] [place] Work Phone: Radiology Comment on above: Pleurisy [R09.1] Start: 08-27-2022 End: 08-27-2022 ambulatory Samreen Powell PT [facility] Comment on above: Sciatica, right side (Primary Dx) Start: 08-27-2022 Telephone encounter Andre Santana MD Work Phone: [facility] Comment on above: Results Start: 08-26-2022 End: 08-26-2022 Subsequent hospital visit by physician [facility] [place] Work Phone: Radiology Comment on above: Sciatica, right side [M54.31] Start: 08-21-2022 Refill Andre Santana MD Work Phone: [facility] Comment on above: Refill Request Start: 08-18-2022 Telephone encounter Andre Santana MD Work Phone: [facility] Comment on above: Results Start: 08-15-2022 End: 08-15-2022 Subsequent hospital visit by physician [facility] Mob 2 Work Phone: Radiology Comment on above: Feeling of incomplet e bladder emptying [R39.14] Start: 08-13-2022 Telephone encounter Andre Santana MD Work Phone: [facility] [place] Comment on above: Results Start: 08-11-2022 End: 08-11-2022 Patient encounter procedure Luc Faustin PA-C Work Phone: [facility] [place] Comment on above: Feeling of incomplet e bladder emptying (Primary Dx); Sciatica, right side Start: 07-30-2022 End: 07-30-2022 Patient encounter procedure Venessa Rosa MD Work Phone: General Surgery Comment on above: Status post excision of lipoma (Primary Dx) Start: 07-28-2022 End: 07-28-2022 Patient encounter procedure Elissa Kasey RUIZ Work Phone: Urology Comment on above: Sensation of pressur e in bladder area (Primary Dx); Feeling of incomplete bladder emptying; Hemoglobinuria Start: 07-07-2022 End: 07-07-2022 Patient encounter procedure Venessa Rosa MD Work Phone: General Surgery Comment on above: Lipoma of anterior c hest wall (Primary Dx); Lipoma of back; Dysesthesia Start: 07-07-2022 End: 07-07-2022 Subsequent hospital visit by physician [facility] [place] Work Phone: Radiology Comment on above: 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 [M18.0] Start: 07-04-2022 Telephone encounter Andre Santana MD Work Phone: [facility] [place] Comment on above: Results Start: 07-01-2022 End: 07-01-2022 Patient encounter procedure Luc Faustin PA-C Work Phone: [facility] [place] Comment on above: Atrial tachycardia ( HCC) (Primary Dx); Mitral valve disease; Essential hypertension with goal blood pressure less than 140/90; Mixed hyperlipidemia; FRIEDA (obstructive sleep apnea); Nodule of left lung; Pneumothorax of left lung after biopsy; Gastroesophageal reflux disease, unspecified whether esophagitis present; Stage 3b chronic kidney disease (HCC); Thyroid nodule; Encounter for immunization; Polyarthralgia; Lipoma of back; Arthritis of carpometacarpal (CMC) joint of both thumbs Start: 05-27-2022 [facility] Comment on above: [facility] Start: 05-16-2022 Telephone encounter Andre Santana MD Work Phone: [facility] [place] Comment on above: Results Start: 05-15-2022 Refill Andre Santana MD Work Phone: [facility] [place] Comment on above: Refill Request Start: 05-07-2022 Telephone encounter Shirin mrianda APRN.CIRCULAR RIPSAW OPERATOR Work Phone: Urology Comment on above: Results Start: 05-01-2022 End: 05-01-2022 Subsequent hospital visit by physician [facility] Mob 1 Work Phone: Radiology Comment on above: Atrophic vaginitis [ N95.2] Start: 04-29-2022 Telephone encounter Andre Santana MD Work Phone: [facility] Comment on above: Lab Orders Start: 04-22-2022 End: 04-22-2022 Patient encounter procedure Shirin Draper APRN.CIRCULAR RIPSAW OPERATOR Work Phone: [facility] Comment on above: Atrophic vaginitis ( Primary Dx); Urinary frequency; Feeling of incomplete bladder emptying; H/O senile atrophic vaginitis Start: 02-25-2022 End: 02-25-2022 Patient encounter procedure Jacquie Evans MD Work Phone: Pulmonary Medicine Comment on above: Chest pain, unspecif ied type (Primary Dx); Granulomatous disease (HCC) Start: 10-16-2021 End: 10-16-2021 Subsequent hospital visit by physician [facility] [place] Work Phone: Radiology Comment on above: Chest pain, unspecif ied type [R07.9] Start: 01-09-2021 End: 01-09-2021 Subsequent hospital visit by physician [facility] [place] Work Phone: Radiology Comment on above: Postprocedural pneum othorax [J95.811] Procedures Date Procedure Procedure Detail Performing Clinician Start: 04-24-2025 Us soft tissue head & neck real time imge markel Lofton MD Work Phone: Start: 11-23-2024 Ecg routine ecg w/least 12 lds i&r only Andre Santana MD Work Phone: Start: 09-12-2024 Urnls dip stick/tablet reagent auto microscopy Trang Philippe PULP GRINDER FEEDER.CIRCULAR RIPSAW OPERATOR Work Phone: Start: 08-09-2024 Radex fingr minimum 2 views Jazmin ANTONIO Work Phone: Start: 07-25-2024 Ecg routine ecg w/least 12 lds i&r only [facility] Provider Start: 06-08-2024 Radex ankle complete minimum 3 views Fabiana Stephenson PULP GRINDER FEEDER.CIRCULAR RIPSAW OPERATOR Work Phone: Start: 02-22-2024 Urnls dip stick/tablet rgnt auto w/o microscopy Anitra Juarez MD Work Phone: Start: 01-20-2024 Radiologic exam chest 2 views Fabiana Stephenson PULP GRINDER FEEDER.CIRCULAR RIPSAW OPERATOR Work Phone: Start: 09-22-2023 Ct abdomen & pelvis w/o contrst 1/> body re Evan Johnson PA-C Work Phone: Start: 08-25-2023 Urnls dip stick/tablet rgnt auto w/o microscopy Evan Johnson PA-C Work Phone: Start: 08-19-2023 Us abdominal real time w/image limited Angelika Castelan PULP GRINDER FEEDER.CIRCULAR RIPSAW OPERATOR Work Phone: Start: 08-17-2023 Urnls dip stick/tablet rgnt auto w/o microscopy Angelika Castelan PULP GRINDER FEEDER.CIRCULAR RIPSAW OPERATOR Work Phone: Start: 07-16-2023 Urnls dip stick/tablet rgnt auto w/o microscopy Luc Faustin PA-C Work Phone: Start: 07-03-2023 Ct thorax w/o contrast material Luc Marco Faustin PA-C Work Phone: Start: 06-08-2023 Radiologic exam chest 2 views Luc Marco Faustin PA-C Work Phone: Start: 01-07-2023 Radex hip unilateral with pelvis 2-3 views Maren Rhodes MD Work Phone: Start: 09-23-2022 Urnls dip stick/tablet rgnt auto w/o microscopy Ivan Alvarez MD Work Phone: Start: 09-05-2022 Mri spinal canal lumbar w/o contrast material M Marco Faustin PA-C Work Phone: Start: 09-02-2022 Urnls dip stick/tablet rgnt auto w/o microscopy Luc Marco ANTONIO-Joni Work Phone: Start: 08-28-2022 Radiologic exam chest 2 views Jacquie Evans MD Work Phone: Start: 08-26-2022 Radex spine lumbosacral 2/3 views Luc Marco Faustin PA-C Work Phone: Start: 08-15-2022 Us pelvic nonobstetric image dcmtn limited/f/u Luc Marco SCHROEDERC Work Phone: Start: 07-28-2022 Urnls dip stick/tablet rgnt auto w/o microscopy Elissa Parks PULP GRINDER FEEDER.CIRCULAR RIPSAW OPERATOR Work Phone: Start: 07-07-2022 Radex fingr minimum 2 views Luc Faustin PA-C Work Phone: Start: 05-01-2022 Us retroperitoneal real time w/image complete Shirin Draper APRN.CIRCULAR RIPSAW OPERATOR Work Phone: Start: 04-22-2022 Urnls dip stick/tablet rgnt auto w/o microscopy Shirin Draper APRN.CIRCULAR RIPSAW OPERATOR Work Phone: Start: 04-22-2022 BLADDER SCAN Shirin Draper PULP GRINDER FEEDER .CIRCULAR RIPSAW OPERATOR Work Phone: Start: 10-16-2021 Radiologic exam chest 2 views Andre Santana MD Work Phone: Start: 01-09-2021 Radiologic exam chest single view Jacquie Evans MD Work Phone: Start: 01-11-2016 Colonoscopy Jacquie Evans MD Work Phone: H/O: surgery History of lung surgery Jacquie Evans MD Work Phone: Plan of Treatment Date Care Activity Detail Author Start: 04-21-2028 Diabetes Screening Diabetes Screening [facility] Start: 11-23-2027 Diabetes Screening Diabetes Screening [facility] Start: 10-03-2027 Diabetes Screening Diabetes Screening [facility] Start: 08-13-2027 Diabetes Screening Diabetes Screening [facility] Start: 05-08-2027 LIPID SCREEN LIPID SCREEN [facility] Start: 01-19-2027 Diabetes Screening Diabetes Screening [facility] Start: 11-12-2026 Diabetes Screening Diabetes Screening [facility] Start: 08-21-2026 LIPID SCREEN LIPID SCREEN [facility] Start: 08-17-2026 Diabetes Screening Diabetes Screening [facility] Start: 08-03-2026 Diabetes Screening Diabetes Screening [facility] Start: 06-29-2026 DIABETES SCREEN DIABETES SCREEN [facility] Start: 06-17-2026 DIABETES SCREEN DIABETES SCREEN [facility] Start: 06-08-2026 DIABETES SCREEN DIABETES SCREEN [facility] Start: 05-16-2026 Annual PCP Team Chronic Disease Visit Annual PCP Team Chronic Disease Visit [facility] Start: 04-21-2026 Complete blood count Hemoglobin/Hematocrit [facility] Start: 04-21-2026 Creatinine measurement Serum Creatinine [facility] Start: 04-17-2026 Annual PCP Team Chronic Disease Visit Annual PCP Team Chronic Disease Visit [facility] Start: 03-07-2026 BP Controlled (<130/80) BP Controlled (<130/80) [facility] Start: 12-15-2025 BP Controlled (<130/80) BP Controlled (<130/80) [facility] Start: 11-23-2025 Annual PCP Team Chronic Disease Visit Annual PCP Team Chronic Disease Visit [facility] Start: 11-23-2025 Complete blood count Hemoglobin/Hematocrit [facility] Start: 11-23-2025 Creatinine measurement Serum Creatinine [facility] Start: 10-03-2025 Complete blood count Hemoglobin/Hematocrit [facility] Start: 10-03-2025 Creatinine measurement Serum Creatinine [facility] Start: 09-12-2025 Annual PCP Team Chronic Disease Visit Annual PCP Team Chronic Disease Visit [facility] Start: 09-08-2025 Complete blood count Hemoglobin/Hematocrit [facility] Start: 08-24-2025 Complete blood count Hemoglobin/Hematocrit [facility] Start: 08-21-2025 End: 08-21-2025 Patient encounter procedure 08/21/2025 3:40 PM EDT Office Visit [facility] [place] [address] [place], [place] [id number] Trang Philippe APRN.CIRCULAR RIPSAW OPERATOR [address] [place] [address] Medicare Wellness Exam [facility] [place] Comment on above: Medicare Wellness Exam Start: 08-16-2025 End: 11-15-2025 CBC W Auto Differential panel - Blood COMPLETE BLOOD COUNT AND DIFFERENTIAL Lab Routine Mixed hyperlipidemia Expected: 08/16/2025, Expires: 11/15/2025 [facility] Work Phone: Comment on above: Expected: 08/16/2025, Expires: Start: 08-16-2025 End: 11-15-2025 Cobalamin (Vitamin B12) [Mass/volume] in Serum or Plasma VITAMIN B12 Lab Routine Medication monitoring encounter Expected: 08/16/2025, Expires: 11/15/2025 [facility] Comment on above: Expected: 08/16/2025, Expires: Start: 08-16-2025 End: 11-15-2025 Comprehensive metabolic 2000 panel - Serum or Plasma COMPREHENSIVE METABOLIC PANEL Lab Routine Mixed hyperlipidemia Expected: 08/16/2025, Expires: 11/15/2025 [facility] Comment on above: Expected: 08/16/2025, Expires: Start: 08-16-2025 End: 11-15-2025 Folate [Mass/volume] in Serum or Plasma FOLATE, SERUM Lab Routine Medication monitoring encounter Expected: 08/16/2025, Expires: 11/15/2025 [facility] Comment on above: Expected: 08/16/2025, Expires: Start: 08-16-2025 End: 11-15-2025 Hemoglobin A1c in Blood HEMOGLOBIN A1C Lab Routine Prediabetes Expected: 08/16/2025, Expires: 11/15/2025 [facility] Comment on above: Expected: 08/16/2025, Expires: Start: 08-16-2025 End: 11-15-2025 Lipid 1996 panel - Serum or Plasma LIPID PANEL, FASTING Lab Routine Mixed hyperlipidemia Expected: 08/16/2025, Expires: 11/15/2025 [facility] Comment on above: Expected: 08/16/2025, Expires: Start: 08-13-2025 Complete blood count Hemoglobin/Hematocrit [facility] Start: 08-13-2025 Creatinine measurement Serum Creatinine [facility] Start: 08-13-2025 Hepatitis B surface antibody level LDL Cholesterol [facility] Start: 08-12-2025 Annual PCP Team Chronic Disease Visit Annual PCP Team Chronic Disease Visit [facility] Start: 08-12-2025 Covid-19 Vaccine ( season) Covid-19 Vaccine ( season) [facility] Comment on above: Postponed from 07/10/2024 (Declined at t his time) Start: 08-12-2025 Urine microalbumin profile DTaP,Tdap,Td Vaccine (2 - Td or Tdap) [facility] Comment on above: Postponed from 04/23/2017 (Declined at t his time) Start: 07-10-2025 Influenza vaccination [facility] Start: 06-30-2025 End: 06-30-2025 Patient encounter procedure 06/30/2025 2:10 PM EDT Office Visit Rheumatology [address] [place] [address] [place] [address] [place] [address] 6 mo f/u Rheumatology Comment on above: 6 mo f/u Start: 06-26-2025 End: 06-26-2025 Patient encounter procedure 06/26/2025 8:40 AM EDT Office Visit Cardiology [address] [place] [address] Darshan Abarca MD [address], [address] [place] [address] 6 month check Cardiology Comment on above: 6 month check Start: 06-09-2025 End: 06-09-2025 Patient encounter procedure 06/09/2025 2:40 PM EDT Office Visit Endocrinology [address] [place] [address] Tulio Calderón MD [address] [place] [address] 3 month f/u-thyroid Endocrinology Comment on above: 3 month f/u-thyroid Start: 06-09-2025 End: 06-09-2025 Patient encounter procedure 06/09/2025 8:40 AM EDT Office Visit Endocrinology [address] [place] [address] Tulio Calderón MD [address] [place] [address] 1st attempt- 3 month f/u-thyroid Endocrinology Comment on above: 1st attempt- 3 month f/u-thyroid Start: 06-02-2025 BP Controlled (<130/80) BP Controlled (<130/80) [facility] Start: 05-16-2025 End: 05-16-2025 Patient encounter procedure 05/16/2025 4:00 PM EDT Office Visit Family Medicine [place] [address] [place] [address] Andre Santana MD [address] [place] [address] 4 week follow up [facility] Medicine [place] Comment on above: 4 week follow up Start: 05-15-2025 End: 05-15-2025 Patient encounter procedure Cardiology Comment on above: 6 month check Start: 05-08-2025 DIABETES SCREEN DIABETES SCREEN [facility] Start: 05-08-2025 Influenza vaccination Influenza Vaccine (#1) [facility] Comment on above: Postponed from 07/10/2024 (Declined at t his time) Start: 04-24-2025 End: 04-24-2025 Patient encounter procedure 04/24/2025 10:45 AM EDT Office Visit Endocrine Surgery [address] [address] Star Lofton MD [address] [place] [address] Multiple thyroid nodules [E04.2] Endocrine Surgery Comment on above: Multiple thyroid nodules [E04.2] Start: 04-17-2025 End: 04-17-2025 Patient encounter procedure Cardiology Comment on above: 6 month check 6 month follow up Start: 04-17-2025 End: 07-17-2025 Basic metabolic 2000 panel - Serum or Plasma BASIC METABOLIC PANEL Lab Routine Lightheaded Expected: 04/17/2025, Expires: 07/17/2025 [facility] Comment on above: Expected: 04/17/2025, Expires: Start: 04-17-2025 End: 07-17-2025 CBC W Auto Differential panel - Blood COMPLETE BLOOD COUNT AND DIFFERENTIAL Lab Routine Lightheaded Expected: 04/17/2025, Expires: 07/17/2025 [facility] Comment on above: Expected: 04/17/2025, Expires: Start: 03-20-2025 End: 03-20-2025 Patient encounter procedure 03/20/2025 2:20 PM EDT Office Visit [facility] [address] [address] Isak Schmid MD [address] [place] [id number] Ref [address] Abarca EKG- hlk [facility] [place] Comment on above: SVT. Ref by Dr. Abarca EKG- hlk Start: 03-07-2025 End: 03-07-2025 Patient encounter procedure 03/07/2025 2:00 PM EDT Office Visit Endocrinology [address] [place] [address] Tulio Calderón MD [address] [place] [address] 4 week follow up Endocrinology Comment on above: 4 week follow up Start: 02-15-2025 End: 02-15-2025 Patient encounter procedure [facility] [place] Comment on above: SVT. Ref by Dr. Tevin COBOST. Ref by Dr. Nalini torres EKG- hlk Start: 02-06-2025 End: 02-06-2025 Patient encounter procedure 02/06/2025 1:00 PM EDT Office Visit Endocrinology [address] [place] [address] Tulio Calderón MD [address] [place] [address] Thyroid nodule greater than or equal to 1 cm in diameter incidentally noted on imaging study [E04.1] Endocrinology Comment on above: Thyroid nodule greater than or equal to 1 cm in diameter incidentally noted on imaging study [E04.1] Start: 01-20-2025 End: 01-20-2025 Patient encounter procedure 01/20/2025 3:25 PM EDT Appointment Radiology [address] [place] [id number] Sjogren's syndrome without extraglandular involvement (HCC) [M35.00] Radiology Comment on above: Sjogren's syndrome without extraglandula r involvement (HCC) [M35.00] Start: 01-19-2025 Complete blood count Hemoglobin/Hematocrit [facility] Start: 01-19-2025 Creatinine measurement Serum [facility]inine [facility] [facility] Start: 12-27-2024 End: 12-27-2024 Patient encounter procedure 12/27/2024 10:00 AM EST Office Visit Endocrinology [address] [place] [address] Tulio Calderón MD [address] [place] [address] Thyroid nodule greater than or equal to 1 cm in diameter incidentally noted on imaging study [E04.1] Endocrinology Comment on above: Thyroid nodule greater than or equal to 1 cm in diameter incidentally noted on imaging study [E04.1] Start: 12-19-2024 End: 12-19-2024 Patient encounter procedure 12/19/2024 3:20 PM EST Appointment Cat Scan [address] [place] [address] [place] CHEST Cat Scan Comment on above: CT CHEST Start: 12-16-2024 End: 03-17-2025 POLYMYOSITIS AND DERMATOMYOSITIS PANEL POLYMYOSITIS AND DERMATOMYOSITIS PANEL Lab Routine Rash and nonspecific skin eruption Expected: 12/16/2024, Expires: 03/17/2025 [facility] Work Phone: Comment on above: Expected: 12/16/2024, Expires: Start: 12-15-2024 End: 03-16-2025 25-hydroxyvitamin D3 [Mass/volume] in Serum or Plasma VITAMIN D 25 HYDROXY Lab Routine Sjogren's syndrome without extraglandular involvement (HCC) Osteopenia, unspecified location Rash and nonspecific skin eruption GUERRA (dyspnea on exertion) Expected: 12/15/2024, Expires: 03/16/2025 [facility] Comment on above: Expected: 12/15/2024, Expires: Start: 12-15-2024 End: 03-16-2025 Collagen crosslinked C-telopeptide [Mass/volume] in Serum or Plasma C TELOPEPTIDE, BETA Lab Routine Sjogren's syndrome without extraglandular involvement (HCC) Osteopenia, unspecified location Rash and nonspecific skin eruption GUERRA (dyspnea on exertion) Expected: 12/15/2024, Expires: 03/16/2025 [facility] Comment on above: Expected: 12/15/2024, Expires: Start: 12-15-2024 End: 03-16-2025 Complement C3 [Mass/volume] in Serum or Plasma C3 COMPLEMENT Lab Routine Sjogren's syndrome without extraglandular involvement (HCC) Osteopenia, unspecified location Rash and nonspecific skin eruption GUERRA (dyspnea on exertion) Expected: 12/15/2024, Expires: 03/16/2025 [facility] Comment on above: Expected: 12/15/2024, Expires: Start: 12-15-2024 End: 03-16-2025 Complement C4 [Mass/volume] in Serum or Plasma C4 COMPLEMENT Lab Routine Sjogren's syndrome without extraglandular involvement (HCC) Osteopenia, unspecified location Rash and nonspecific skin eruption GUERRA (dyspnea on exertion) Expected: 12/15/2024, Expires: 03/16/2025 [facility] Comment on above: Expected: 12/15/2024, Expires: Start: 12-15-2024 End: 03-16-2025 IMMUNOFIXATION SCREEN, SERUM IMMUNOFIXATION SCREEN, SERUM Lab Routine Sjogren's syndrome without extraglandular involvement (HCC) Osteopenia, unspecified location Rash and nonspecific skin eruption GUERRA (dyspnea on exertion) Expected: 12/15/2024, Expires: 03/16/2025 [facility] Comment on above: Expected: 12/15/2024, Expires: Start: 12-15-2024 End: 03-16-2025 KAPPA/IRVING,FREE,SER KAPPA/IRVING,FREE,SER Lab Routine Sjogren's syndrome without extraglandular involvement (HCC) Osteopenia, unspecified location Rash and nonspecific skin eruption GUERRA (dyspnea on exertion) Expected: 12/15/2024, Expires: 03/16/2025 [facility] Comment on above: Expected: 12/15/2024, Expires: Start: 12-15-2024 End: 03-16-2025 Magnesium [Mass/volume] in Serum or Plasma MAGNESIUM Lab Routine Sjogren's syndrome without extraglandular involvement (HCC) Osteopenia, unspecified location Rash and nonspecific skin eruption GUERRA (dyspnea on exertion) Expected: 12/15/2024, Expires: 03/16/2025 [facility] Comment on above: Expected: 12/15/2024, Expires: Start: 12-15-2024 End: 03-16-2025 MONOCLONAL PROT UR W/INTERP MONOCLONAL PROT UR W/INTERP Lab Routine Sjogren's syndrome without extraglandular involvement (HCC) Osteopenia, unspecified location Rash and nonspecific skin eruption GUERRA (dyspnea on exertion) Expected: 12/15/2024, Expires: 03/16/2025 [facility] Comment on above: Expected: 12/15/2024, Expires: Start: 12-15-2024 End: 12-15-2024 Patient encounter procedure 12/15/2024 2:00 PM EST Office Visit Rheumatology [id number] [id number] [place] [address] [place] [address] 1 year follow up Rheumatology Comment on above: 1 year follow up Start: 12-15-2024 End: 03-16-2025 Phosphate [Mass/volume] in Serum or Plasma PHOSPHORUS INORGANIC Lab Routine Sjogren's syndrome without extraglandular involvement (HCC) Osteopenia, unspecified location Rash and nonspecific skin eruption GUERRA (dyspnea on exertion) Expected: 12/15/2024, Expires: 03/16/2025 [facility] Comment on above: Expected: 12/15/2024, Expires: Start: 12-15-2024 End: 03-16-2025 PROTEIN ELECT RND UR W/INTERP PROTEIN ELECT RND UR W/INTERP Lab Routine Sjogren's syndrome without extraglandular involvement (HCC) Osteopenia, unspecified location Rash and nonspecific skin eruption GUERRA (dyspnea on exertion) Expected: 12/15/2024, Expires: 03/16/2025 [facility] Comment on above: Expected: 12/15/2024, Expires: Start: 12-15-2024 End: 03-16-2025 PROTEIN ELECTROPHORESIS SERUM W/INTERP PROTEIN ELECTROPHORESIS SERUM W/INTERP Lab Routine Sjogren's syndrome without extraglandular involvement (HCC) Osteopenia, unspecified location Rash and nonspecific skin eruption GUERRA (dyspnea on exertion) Expected: 12/15/2024, Expires: 03/16/2025 [facility] Comment on above: Expected: 12/15/2024, Expires: Start: 12-15-2024 End: 03-16-2025 Protein/Creatinine [Mass Ratio] in Urine PROTEIN / CREATININE RATIO Lab Routine Sjogren's syndrome without extraglandular involvement (HCC) Osteopenia, unspecified location Rash and nonspecific skin eruption GUERRA (dyspnea on exertion) Expected: 12/15/2024, Expires: 03/16/2025 [facility] Comment on above: Expected: 12/15/2024, Expires: Start: 12-15-2024 End: 03-16-2025 Urinalysis complete panel - Urine URINALYSIS, WITH MICROSCOPIC Lab Routine Sjogren's syndrome without extraglandular involvement (HCC) Osteopenia, unspecified location Rash and nonspecific skin eruption GUERRA (dyspnea on exertion) Expected: 12/15/2024, Expires: 03/16/2025 [facility] Comment on above: Expected: 12/15/2024, Expires: Start: 12-09-2024 End: 12-09-2024 Patient encounter procedure 12/09/2024 3:15 PM EST Office Visit Pulmonary Medicine [address] [place] [address] Jacquie Evans MD [address] [place], [place] [id number] Granulomatous lung disease (HCC) [J84.10] Pulmonary Medicine Comment on above: Granulomatous lung disease (HCC) [J84.10 ] Start: 12-03-2024 Annual PCP Team Chronic Disease Visit Annual PCP Team Chronic Disease Visit [facility] Start: 12-03-2024 Covid-19 Vaccine (#1) Covid-19 Vaccine (#1) [facility] Comment on above: Postponed from 04/13/1946 (Declined at t his time) Start: 12-03-2024 Covid-19 Vaccine ( season) Covid-19 Vaccine ( season) [facility] Comment on above: Postponed from 07/10/2023 (Declined at t his time) Start: 12-03-2024 RSV Vaccine (1 - 1-dose 60+ series) RSV Vaccine (1 - 1-dose 60+ series) [facility] Comment on above: Postponed from 2006 (Declined at t his time) Start: 12-03-2024 RSV Vaccine (1 - 1-dose 75+ series) RSV Vaccine (1 - 1-dose 75+ series) [facility] Comment on above: Postponed from 2021 (Declined at t his time) Start: 12-03-2024 Shingrix Vaccine (2 of 3) Shingrix Vaccine (2 of 3) [facility] Comment on above: Postponed from 07/09/2016 (Declined at t his time) Start: 11-25-2024 End: 11-25-2024 Patient encounter procedure Radiology Comment on above: Granulomatous lung disease (HCC) [J84.10 ] Start: 11-23-2024 End: 11-23-2024 Patient encounter procedure 11/23/2024 3:40 PM EST Office Visit Family [facility] [place] [address] [place] [id number] Andre Santana MD [address] [place] [id number] 4 month f/u Family Medicine [place] Comment on above: 4 month f/u Start: 11-23-2024 End: 02-22-2025 Basic metabolic 2000 panel - Serum or Plasma [facility] Comment on above: Expected: 11/23/2024, Expires: Start: 11-23-2024 End: 02-22-2025 CBC W Auto Differential panel - Blood [facility] Comment on above: Expected: 11/23/2024, Expires: Start: 11-23-2024 End: 02-22-2025 Magnesium [Mass/volume] in Serum or Plasma [facility] Comment on above: Expected: 11/23/2024, Expires: Start: 11-23-2024 End: 02-22-2025 Thyrotropin [Units/volume] in Serum or Plasma [facility] Work Phone: Comment on above: Expected: 11/23/2024, Expires: Start: 11-12-2024 Creatinine measurement Serum Creatinine [facility] Start: 11-10-2024 COLOGUARD (FIT-DNA) COLOGUARD (FIT-DNA) [facility] Start: 11-10-2024 COLORECTAL CANCER SCREENING COLORECTAL CANCER SCREENING [facility] Start: 11-09-2024 Medicare Advantage Annual Wellness Visit Medicare Advantage Annual Wellness Visit [facility] Start: 11-06-2024 Creatinine measurement Serum Creatinine [facility] Start: 10-03-2024 End: 10-03-2024 Patient encounter procedure 10/03/2024 2:40 PM EST Office Visit Cardiology [address] [place] [id number] Darshan Abarca MD [address], [address] [place], [place] [id number] 1 year follow up Cardiology Comment on above: 1 year follow up Start: 09-15-2024 End: 09-15-2024 Patient encounter procedure 09/15/2024 1:20 PM EST Office Visit [facility] [place] [address] [facility] [place], [place] [address] Sandy Holm PULP GRINDER FEEDER.CIRCULAR RIPSAW OPERATOR [address] [place], [place] [id number] BP follow up Family Medicine [place] Comment on above: BP follow up Start: 09-12-2024 End: 09-12-2024 Patient encounter procedure 09/12/2024 3:20 PM EST Office Visit Family Medicine [place] [address] [facility] [place] [place] [id number] Trang Philippe PULP GRINDER FEEDER.CIRCULAR RIPSAW OPERATOR [address] [place], [place] [address] 4 week follow up. [facility] [place] Comment on above: 4 week follow up. Start: 09-12-2024 End: 12-12-2024 Basic metabolic 2000 panel - Serum or Plasma BASIC METABOLIC PANEL Lab Routine Essential hypertension with goal blood pressure less than 140/90 Expected: 09/12/2024, Expires: 12/12/2024 [facility] Comment on above: Expected: 09/12/2024, Expires: Start: 09-12-2024 End: 12-12-2024 CBC W Auto Differential panel - Blood COMPLETE BLOOD COUNT AND DIFFERENTIAL Lab Routine Anemia, unspecified type Fatigue, unspecified type Expected: 09/12/2024, Expires: 12/12/2024 [facility] Work Phone: Comment on above: Expected: 09/12/2024, Expires: Start: 09-08-2024 Annual PCP Team Chronic Disease Visit Annual PCP Team Chronic Disease Visit [facility] Start: 08-29-2024 End: 11-28-2024 CBC W Auto Differential panel - Blood COMPLETE BLOOD COUNT AND DIFFERENTIAL Lab Routine Anemia, unspecified type Expected: 08/29/2024, Expires: 11/28/2024 [facility] Work Phone: Comment on above: Expected: 08/29/2024, Expires: Start: 08-21-2024 DIABETES SCREEN DIABETES SCREEN [facility] Start: 08-17-2024 Annual PCP Team Chronic Disease Visit Annual PCP Team Chronic Disease Visit [facility] Start: 08-17-2024 Complete blood count Hemoglobin/Hematocrit [facility] Start: 08-17-2024 Hemoglobin/Hematocrit Hemoglobin/Hematocrit [facility] Start: 08-17-2024 Serum Creatinine Serum Creatinine [facility] Start: 08-16-2024 End: 08-16-2025 CBC W Auto Differential panel - Blood COMPLETE BLOOD COUNT AND DIFFERENTIAL Lab Routine Anemia, unspecified type Expected: 08/16/2024, Expires: 08/16/2025 [facility] Comment on above: Expected: 08/16/2024, Expires: Start: 08-16-2024 End: 08-16-2025 Cobalamin (Vitamin B12) [Mass/volume] in Serum or Plasma VITAMIN B12 Lab Routine Anemia, unspecified type Expected: 08/16/2024, Expires: 08/16/2025 [facility] Comment on above: Expected: 08/16/2024, Expires: Start: 08-16-2024 End: 08-16-2025 Ferritin [Mass/volume] in Serum or Plasma FERRITIN Lab Routine Anemia, unspecified type Expected: 08/16/2024, Expires: 08/16/2025 [facility] Work Phone: Comment on above: Expected: 08/16/2024, Expires: Start: 08-16-2024 End: 08-16-2025 Folate [Mass/volume] in Serum or Plasma FOLATE, SERUM Lab Routine Anemia, unspecified type Expected: 08/16/2024, Expires: 08/16/2025 [facility] Comment on above: Expected: 08/16/2024, Expires: Start: 08-16-2024 End: 08-16-2025 Hemoglobin.gastrointestin al.lower [Presence] in Stool by Immunoassay IMMUNOCHEMICAL FECAL OCCULT BLOOD TEST Lab Routine Anemia, unspecified type Expected: 08/16/2024, Expires: 08/16/2025 [facility] Comment on above: Expected: 08/16/2024, Expires: Start: 08-16-2024 End: 08-16-2025 Iron and Iron binding capacity panel - Serum or Plasma IRON AND TIBC Lab Routine Anemia, unspecified type Expected: 08/16/2024, Expires: 08/16/2025 [facility] Comment on above: Expected: 08/16/2024, Expires: Start: 08-16-2024 End: 08-16-2025 RETICULOCYTE COUNT RETICULOCYTE COUNT Lab Routine Anemia, unspecified type Expected: 08/16/2024, Expires: 08/16/2025 [facility] Comment on above: Expected: 08/16/2024, Expires: Start: 08-13-2024 End: 08-13-2024 ambulatory 08/13/2024 9:30 AM EDT Results Only Stephanie [facility] Draw Station [address] [place] [address] Mixed hyperlipidemia [E78.2] Stephanie [facility] Station Comment on above: Mixed hyperlipidemia [E78.2] Start: 08-12-2024 End: 08-12-2024 Patient encounter procedure 08/12/2024 2:20 PM EDT Office Visit Family Medicine [place] [address] [place] [address] Andre Santana MD [address] [place] [address] rash-follow up [facility] Comment on above: rash-follow up Start: 08-12-2024 End: 11-11-2024 C reactive protein [Mass/volume] in Serum or Plasma C-REACTIVE PROTEIN Lab Routine Dermatitis Expected: 08/12/2024, Expires: 11/11/2024 [facility] Comment on above: Expected: 08/12/2024, Expires: Start: 08-12-2024 End: 11-11-2024 CBC W Auto Differential panel - Blood COMPLETE BLOOD COUNT AND DIFFERENTIAL Lab Routine Mixed hyperlipidemia Expected: 08/12/2024, Expires: 11/11/2024 [facility] Work Phone: Comment on above: Expected: 08/12/2024, Expires: Start: 08-12-2024 End: 11-11-2024 Comprehensive metabolic 2000 panel - Serum or Plasma COMPREHENSIVE METABOLIC PANEL Lab Routine Mixed hyperlipidemia Expected: 08/12/2024, Expires: 11/11/2024 [facility] Comment on above: Expected: 08/12/2024, Expires: Start: 08-12-2024 End: 11-11-2024 Creatine kinase [Enzymatic activity/volume] in Serum or Plasma CREATINE KINASE/CK Lab Routine Mixed hyperlipidemia Expected: 08/12/2024, Expires: 11/11/2024 [facility] Comment on above: Expected: 08/12/2024, Expires: Start: 08-12-2024 End: 11-11-2024 Erythrocyte sedimentation rate SEDIMENTATION RATE, WESTERGREN Lab Routine Dermatitis Expected: 08/12/2024, Expires: 11/11/2024 [facility] Comment on above: Expected: 08/12/2024, Expires: Start: 08-12-2024 End: 11-11-2024 Lipid 1996 panel - Serum or Plasma LIPID PANEL BASIC Lab Routine Mixed hyperlipidemia Expected: 08/12/2024, Expires: 11/11/2024 [facility] Comment on above: Expected: 08/12/2024, Expires: Start: 08-12-2024 End: 11-11-2024 Magnesium [Mass/volume] in Serum or Plasma MAGNESIUM Lab Routine Hypertension, essential Expected: 08/12/2024, Expires: 11/11/2024 [facility] Comment on above: Expected: 08/12/2024, Expires: Start: 08-12-2024 End: 11-11-2024 T4/FTI/T4U T4/FTI/T4U Lab Routine Fatigue, unspecified type Expected: 08/12/2024, Expires: 11/11/2024 [facility] Comment on above: Expected: 08/12/2024, Expires: Start: 08-12-2024 End: 11-11-2024 Thyrotropin [Units/volume] in Serum or Plasma THYROID STIMULATING HORMONE Lab Routine Fatigue, unspecified type Expected: 08/12/2024, Expires: 11/11/2024 [facility] Comment on above: Expected: 08/12/2024, Expires: Start: 08-03-2024 Serum Creatinine Serum Creatinine [facility] Start: 07-26-2024 End: 07-26-2024 Patient encounter procedure 07/26/2024 9:00 AM EDT Office Visit Vascular Surgery [address] [place] [address] Anitha Pacheco, [address] [place] [address] 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] Vascular Surgery Comment on above: 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] Start: 07-25-2024 End: 07-25-2024 Patient encounter procedure 07/25/2024 9:00 AM EDT Office Visit Cardiology [address] [place] [place] [id number] Darshan Abarca MD [address], [address] [place] [address] 06/18/24 in [place] Cardiology Comment on above: PR and stent place 06/18/24 in [place] Start: 07-18-2024 End: 07-18-2024 Patient encounter procedure Family Medicine [place] Comment on above: HTN follow up Hospital follow up: stent placement, STEMI-Discharged from [facility] 07/06/24, see 07/07/24 phone note Start: 07-16-2024 ANNUAL PCP TEAM CHRONIC DISEASE VISIT ANNUAL PCP TEAM CHRONIC DISEASE VISIT [facility] Start: 07-10-2024 Covid-19 Vaccine ( season) Covid-19 Vaccine ( season) [facility] Start: 07-10-2024 Covid-19 Vaccine ( season) Covid-19 Vaccine ( season) [facility] Start: 07-10-2024 Influenza vaccination [facility] Start: 07-05-2024 End: 07-05-2024 Patient encounter procedure 07/05/2024 2:00 PM EDT Office Visit Rheumatology [address] [place] [address] Siddharth Mcdaniel, TRINY.CIRCULAR RIPSAW OPERATOR [address] [place] [address] 3-6 mo 1 hour with KAYLEE Mcdaniel Rheumatology Comment on above: 3-6 mo 1 hour with KAYLEE Mcdaniel Start: 07-02-2024 ANNUAL PCP TEAM CHRONIC DISEASE VISIT ANNUAL PCP TEAM CHRONIC DISEASE VISIT [facility] Start: 06-29-2024 SERUM CREATININE SERUM CREATININE [facility] Start: 06-17-2024 ANNUAL PCP TEAM CHRONIC DISEASE VISIT ANNUAL PCP TEAM CHRONIC DISEASE VISIT [facility] Start: 06-17-2024 SERUM CREATININE SERUM CREATININE [facility] Start: 06-08-2024 HEMOGLOBIN/HEMATOCRIT HEMOGLOBIN/HEMATOCRIT [facility] Start: 06-08-2024 SERUM CREATININE SERUM CREATININE [facility] Start: 06-02-2024 ANNUAL PCP TEAM CHRONIC DISEASE VISIT ANNUAL PCP TEAM CHRONIC DISEASE VISIT [facility] Start: 06-02-2024 BP CONTROLLED (<130/80) BP CONTROLLED (<130/80) [facility] in Start: 05-08-2024 Influenza vaccination Influenza Vaccine (#1) [place] [facility] Comment on above: Postponed from 07/10/2023 (Declined at t his time) Start: 01-23-2024 End: 04-23-2024 Urinalysis complete panel - Urine URINALYSIS, WITH MICROSCOPIC Lab Routine Microscopic hematuria Expected: 01/23/2024, Expires: 04/23/2024 [facility] Work Phone: Comment on above: Expected: 01/23/2024, Expires: Start: 12-10-2023 End: 03-10-2024 25-hydroxyvitamin D3 [Mass/volume] in Serum or Plasma VITAMIN D 25 HYDROXY Lab Routine Screening for osteoporosis Sjogren's syndrome without extraglandular involvement (HCC) Expected: 12/10/2023, Expires: 03/10/2024 [facility] Work Phone: Comment on above: Expected: 12/10/2023, Expires: Start: 12-10-2023 End: 03-10-2024 C reactive protein [Mass/volume] in Serum or Plasma C-REACTIVE PROTEIN (CRP) Lab Routine Screening for osteoporosis Sjogren's syndrome without extraglandular involvement (HCC) Expected: 12/10/2023, Expires: 03/10/2024 [facility] Work Phone: Comment on above: Expected: 12/10/2023, Expires: Start: 12-10-2023 End: 03-10-2024 Calcium.ionized [Moles/volume] in Blood CALCIUM IONIZED BLOOD Lab Routine Screening for osteoporosis Sjogren's syndrome without extraglandular involvement (HCC) Expected: 12/10/2023, Expires: 03/10/2024 [facility] Work Phone: Comment on above: Expected: 12/10/2023, Expires: Start: 12-10-2023 End: 03-10-2024 CBC W Auto Differential panel - Blood CBC + DIFF Lab Routine Screening for osteoporosis Sjogren's syndrome without extraglandular involvement (HCC) Expected: 12/10/2023, Expires: 03/10/2024 [facility] Work Phone: Comment on above: Expected: 12/10/2023, Expires: 4 Start: 12-10-2023 End: 03-10-2024 Comprehensive metabolic 2000 panel - Serum or Plasma COMP METABOLIC PANEL Lab Routine Screening for osteoporosis Sjogren's syndrome without extraglandular involvement (HCC) Expected: 12/10/2023, Expires: 03/10/2024 [facility] Work Phone: Comment on above: Expected: 12/10/2023, Expires: 4 Start: 12-10-2023 End: 03-10-2024 Erythrocyte sedimentation rate SED RATE WESTERGREN Lab Routine Screening for osteoporosis Sjogren's syndrome without extraglandular involvement (HCC) Expected: 12/10/2023, Expires: 03/10/2024 [facility] Work Phone: Comment on above: Expected: 12/10/2023, Expires: Start: 12-10-2023 End: 03-10-2024 IMMUNOFIXATION SCREEN, SERUM IMMUNOFIXATION SCREEN, SERUM Lab Routine Screening for osteoporosis Sjogren's syndrome without extraglandular involvement (HCC) Expected: 12/10/2023, Expires: 03/10/2024 [facility] Work Phone: Comment on above: Expected: 12/10/2023, Expires: 4 Start: 12-10-2023 End: 03-10-2024 KAPPA/IRVING,FREE,SER KAPPA/IRVING,FREE,SER Lab Routine Screening for osteoporosis Sjogren's syndrome without extraglandular involvement (HCC) Expected: 12/10/2023, Expires: 03/10/2024 [facility] Work Phone: Comment on above: Expected: 12/10/2023, Expires: Start: 12-10-2023 End: 03-10-2024 Magnesium [Mass/volume] in Serum or Plasma MAGNESIUM BLD Lab Routine Screening for osteoporosis Sjogren's syndrome without extraglandular involvement (HCC) Expected: 12/10/2023, Expires: 03/10/2024 [facility] Work Phone: Comment on above: Expected: 12/10/2023, Expires: Start: 12-10-2023 End: 03-10-2024 Parathyrin.intact [Mass/volume] in Serum or Plasma PTH INTACT BLD Lab Routine Screening for osteoporosis Sjogren's syndrome without extraglandular involvement (HCC) Expected: 12/10/2023, Expires: 03/10/2024 [facility] Work Phone: Comment on above: Expected: 12/10/2023, Expires: 4 Start: 12-10-2023 End: 03-10-2024 Phosphate [Mass/volume] in Serum or Plasma PHOSPHORUS INORGANIC Lab Routine Screening for osteoporosis Sjogren's syndrome without extraglandular involvement (HCC) Expected: 12/10/2023, Expires: 03/10/2024 [facility] Work Phone: Comment on above: Expected: 12/10/2023, Expires: 4 Start: 12-10-2023 End: 03-10-2024 Protein [Mass/volume] in Urine PROTEIN RANDOM UR Lab Routine Screening for osteoporosis Sjogren's syndrome without extraglandular involvement (HCC) Expected: 12/10/2023, Expires: 03/10/2024 [facility] Work Phone: Comment on above: Expected: 12/10/2023, Expires: 4 Start: 12-10-2023 End: 03-10-2024 PROTEIN ELECTROPHORESIS SERUM W/INTERP PROTEIN ELECTROPHORESIS SERUM W/INTERP Lab Routine Screening for osteoporosis Sjogren's syndrome without extraglandular involvement (HCC) Expected: 12/10/2023, Expires: 03/10/2024 [facility] Work Phone: Comment on above: Expected: 12/10/2023, Expires: Start: 12-10-2023 End: 03-10-2024 Rheumatoid factor [Units/volume] in Serum or Plasma RHEUMATOID FACTOR BL Lab Routine Screening for osteoporosis Sjogren's syndrome without extraglandular involvement (HCC) Expected: 12/10/2023, Expires: 03/10/2024 [facility] Work Phone: Comment on above: Expected: 12/10/2023, Expires: 4 Start: 12-10-2023 End: 03-10-2024 Thyrotropin [Units/volume] in Serum or Plasma TSH BLD Lab Routine Screening for osteoporosis Sjogren's syndrome without extraglandular involvement (HCC) Expected: 12/10/2023, Expires: 03/10/2024 [facility] Work Phone: Comment on above: Expected: 12/10/2023, Expires: Start: 12-10-2023 End: 03-10-2024 Urinalysis complete panel - Urine URINALYSIS, WITH MICROSCOPIC Lab Routine Screening for osteoporosis Sjogren's syndrome without extraglandular involvement (HCC) Expected: 12/10/2023, Expires: 03/10/2024 [facility] Work Phone: Comment on above: Expected: 12/10/2023, Expires: 4 Start: 09-15-2023 ANNUAL PCP TEAM CHRONIC DISEASE VISIT ANNUAL PCP TEAM CHRONIC DISEASE VISIT [facility] Start: 09-08-2023 Cystourethroscopy CYSTO.PANENDO Procedures Routine Microscopic hematuria Expected: 09/08/2023 (Approximate) [facility] Work Phone: Comment on above: Expected: 09/08/2023 (Approximate) Start: 09-02-2023 ANNUAL PCP TEAM CHRONIC DISEASE VISIT ANNUAL PCP TEAM CHRONIC DISEASE VISIT [facility] Start: 09-01-2023 End: 12-01-2023 CREATININE BLD CREATININE BLD Lab Routine Microscopic hematuria Expected: 09/01/2023 (Approximate), Expires: 12/01/2023 [facility] Work Phone: Comment on above: Expected: 09/01/2023 (Approximate), Expi res: 12/01/2023 Start: 09-01-2023 End: 09-25-2024 Ct abdomen & pelvis w/o contrst 1/> body re CT UROGRAM WO/W IVCON Radiology Routine Microscopic hematuria Expected: 09/01/2023 (Approximate), Expires: 09/25/2024 [facility] Work Phone: Comment on above: Expected: 09/01/2023 (Approximate), Expi res: 09/25/2024 Start: 08-28-2023 BP CONTROLLED (<130/80) BP CONTROLLED (<130/80) [facility] Start: 08-15-2023 End: 10-15-2023 Basic metabolic 2000 panel - Serum or Plasma BASIC METABOLIC PNL Lab Routine Urinary frequency Expected: 08/15/2023, Expires: 10/15/2023 [facility] Work Phone: Comment on above: Expected: 08/15/2023, Expires: Start: 08-11-2023 ANNUAL PCP TEAM CHRONIC DISEASE VISIT ANNUAL PCP TEAM CHRONIC DISEASE VISIT [facility] Start: 08-11-2023 BP CONTROLLED (<130/80) BP CONTROLLED (<130/80) [facility] Start: 07-16-2023 End: 09-15-2023 Urinalysis complete panel - Urine URINALYSIS, WITH MICROSCOPIC Lab Routine Urinary frequency Expected: 07/16/2023, Expires: 09/15/2023 [facility] Work Phone: Comment on above: Expected: 07/16/2023, Expires: Start: 07-10-2023 Influenza vaccination [facility] Start: 07-07-2023 BP CONTROLLED (<130/80) BP CONTROLLED (<130/80) [facility] Start: 07-01-2023 ANNUAL PCP TEAM CHRONIC DISEASE VISIT ANNUAL PCP TEAM CHRONIC DISEASE VISIT [facility] Start: 07-01-2023 SHINGRIX VACCINE (2 of 3) SHINGRIX VACCINE (2 of 3) [facility] Comment on above: Postponed from 07/09/2016 (Insurance Cov erage) Start: 07-01-2023 Urine microalbumin profile DTAP,TDAP,TD (2 - Td or Tdap) [facility] Comment on above: Postponed from 04/23/2017 (Insurance Cov erage) Start: 06-17-2023 End: 08-17-2023 Thyrotropin [Units/volume] in Serum or Plasma [facility] Work Phone: Comment on above: Expected: 06/17/2023, Expires: 3 Start: 06-09-2023 End: 08-09-2023 Basic metabolic 2000 panel - Serum or Plasma BASIC METABOLIC PNL Lab Routine Dehydration Expected: 06/09/2023, Expires: 08/09/2023 [facility] Work Phone: Comment on above: Expected: 06/09/2023, Expires: 3 Start: 05-08-2023 Hepatitis B surface antibody level LDL Cholesterol [facility] Start: 05-08-2023 SERUM CREATININE SERUM CREATININE [facility] Start: 04-22-2023 BP CONTROLLED (<130/80) BP CONTROLLED (<130/80) [facility] Start: 02-25-2023 BP CONTROLLED (<130/80) BP CONTROLLED (<130/80) [facility] Start: 01-08-2023 End: 03-10-2023 25-hydroxyvitamin D3 [Mass/volume] in Serum or Plasma VITAMIN D 25 HYDROXY Lab Routine Encounter for screening for osteoporosis Expected: 01/08/2023, Expires: 03/10/2023 [facility] Work Phone: Comment on above: Expected: 01/08/2023, Expires: 3 Start: 11-28-2022 End: 01-28-2023 C reactive protein [Mass/volume] in Serum or Plasma C-REACTIVE PROTEIN (CRP) Lab Routine Sjoegren syndrome (HCC) Elevated sed rate Expected: 11/28/2022, Expires: 01/28/2023 [facility] Work Phone: Comment on above: Expected: 11/28/2022, Expires: 3 Start: 11-28-2022 End: 01-28-2023 CBC W Auto Differential panel - Blood CBC + DIFF Lab Routine Sjoegren syndrome (HCC) Elevated sed rate Expected: 11/28/2022, Expires: 01/28/2023 [facility] Work Phone: Comment on above: Expected: 11/28/2022, Expires: 3 Start: 11-28-2022 End: 01-28-2023 Comprehensive metabolic 2000 panel - Serum or Plasma COMP METABOLIC PANEL Lab Routine Sjoegren syndrome (HCC) Elevated sed rate Expected: 11/28/2022, Expires: 01/28/2023 [facility] Work Phone: Comment on above: Expected: 11/28/2022, Expires: 3 Start: 11-28-2022 End: 01-28-2023 Erythrocyte sedimentation rate SED RATE WESTERGREN Lab Routine Sjoegren syndrome (HCC) Elevated sed rate Expected: 11/28/2022, Expires: 01/28/2023 [facility] Work Phone: Comment on above: Expected: 11/28/2022, Expires: 3 Start: 11-09-2022 ADVANCE DIRECTIVE DISCUSSION ADVANCE DIRECTIVE DISCUSSION [facility] Start: 10-24-2022 ANNUAL PCP TEAM CHRONIC DISEASE VISIT ANNUAL PCP TEAM CHRONIC DISEASE VISIT [facility] Start: 10-16-2022 HEMOGLOBIN/HEMATOCRIT HEMOGLOBIN/HEMATOCRIT [facility] Start: 10-16-2022 SERUM CREATININE SERUM CREATININE [facility] Start: 09-02-2022 End: 11-02-2022 Hepatic function 2000 panel - Serum or Plasma HEPATIC FUNCTION PNL Lab Routine Lumbar stenosis with neurogenic claudication Bilirubin in urine Expected: 09/02/2022, Expires: 11/02/2022 [facility] Work Phone: Comment on above: Expected: 09/02/2022, Expires: 2 Start: 09-02-2022 End: 11-02-2022 Urinalysis complete panel - Urine [facility] Work Phone: Comment on above: Expected: 09/02/2022, Expires: 2 Start: 09-02-2022 End: 11-02-2022 URINALYSIS, DIPSTICK ONLY URINALYSIS, DIPSTICK ONLY Lab Routine Urinary pain Expected: 09/02/2022, Expires: 11/02/2022 [facility] Work Phone: Comment on above: Expected: 09/02/2022, Expires: 2 Start: 08-11-2022 End: 10-11-2022 Bacteria identified in Urine by Culture [facility] Work Phone: Comment on above: Expected: 08/11/2022, Expires: 2 Start: 08-11-2022 End: 10-11-2022 Urinalysis complete panel - Urine [facility] Work Phone: Comment on above: Expected: 08/11/2022, Expires: 2 Start: 07-10-2022 Influenza vaccination [facility] Start: 07-04-2022 End: 09-03-2022 Cobalamin (Vitamin B12) [Mass/volume] in Serum or Plasma VITAMIN B12 BLOOD Lab Routine Sjoegren syndrome (HCC) Expected: 07/04/2022, Expires: 09/03/2022 [facility] Work Phone: Comment on above: Expected: 07/04/2022, Expires: 2 Start: 07-04-2022 End: 09-03-2022 Complement C3 [Mass/volume] in Serum or Plasma C3 COMPLEMENT BLD Lab Routine Sjoegren syndrome (HCC) Expected: 07/04/2022, Expires: 09/03/2022 [facility] Work Phone: Comment on above: Expected: 07/04/2022, Expires: 2 Start: 07-04-2022 End: 09-03-2022 Complement C4 [Mass/volume] in Serum or Plasma C4 COMPLEMENT BLD Lab Routine Sjoegren syndrome (HCC) Expected: 07/04/2022, Expires: 09/03/2022 [facility] Work Phone: Comment on above: Expected: 07/04/2022, Expires: 2 Start: 07-04-2022 End: 09-03-2022 Creatine kinase [Enzymatic activity/volume] in Serum or Plasma CK CREATINE KINASE Lab Routine Sjoegren syndrome ([facility]) Expected: 07/04/2022, Expires: 09/03/2022 [facility] Work Phone: Comment on above: Expected: 07/04/2022, Expires: 2 Start: 07-04-2022 End: 09-03-2022 Cryoglobulin [Mass/volume] in Serum or Plasma CRYOGLOBULIN BL Lab Routine Sjoegren syndrome ([facility]) Expected: 07/04/2022, Expires: 09/03/2022 [facility] Work Phone: Comment on above: Expected: 07/04/2022, Expires: 2 Start: 07-04-2022 End: 09-03-2022 PROTEIN ELECTROPHORESIS SERUM W/INTERP PROTEIN ELECTROPHORESIS SERUM W/INTERP Lab Routine Sjoegren syndrome ([facility]) Expected: 07/04/2022, Expires: 09/03/2022 [facility] Work Phone: Comment on above: Expected: 07/04/2022, Expires: 2 Start: 07-04-2022 End: 09-03-2022 Thyrotropin [Units/volume] in Serum or Plasma TSH BLD Lab Routine Sjoegren syndrome ([facility]) Expected: 07/04/2022, Expires: 09/03/2022 [facility] Work Phone: Comment on above: Expected: 07/04/2022, Expires: 2 Start: 07-01-2022 End: 08-31-2022 CHINMAY BY IFA WITH REFLEX [facility] Work Phone: Comment on above: Expected: 07/01/2022, Expires: 2 Start: 07-01-2022 End: 08-31-2022 Borrelia burgdorferi IgG and IgM panel - Serum [facility] Work Phone: Comment on above: Expected: 07/01/2022, Expires: 2 Start: 07-01-2022 End: 08-31-2022 C reactive protein [Mass/volume] in Serum or Plasma [facility] Work Phone: Comment on above: Expected: 07/01/2022, Expires: 2 Start: 07-01-2022 End: 08-31-2022 Rheumatoid factor [Units/volume] in Serum or Plasma [facility] Work Phone: Comment on above: Expected: 07/01/2022, Expires: 2 Start: 07-01-2022 End: 08-31-2022 Urate [Mass/volume] in Serum or Plasma [facility] Work Phone: Comment on above: Expected: 07/01/2022, Expires: 2 Start: 04-29-2022 End: 06-29-2022 Basic metabolic 2000 panel - Serum or Plasma BASIC METABOLIC PNL Lab Routine Stage 3b chronic kidney disease (HCC) Expected: 04/29/2022, Expires: 06/29/2022 [facility] Work Phone: Comment on above: Expected: 04/29/2022, Expires: 2 Start: 04-29-2022 End: 06-29-2022 CBC W Auto Differential panel - Blood CBC + DIFF Lab Routine Stage 3b chronic kidney disease (HCC) Expected: 04/29/2022, Expires: 06/29/2022 [facility] Work Phone: Comment on above: Expected: 04/29/2022, Expires: 2 Start: 04-29-2022 End: 06-29-2022 Hemoglobin A1c in Blood HGB A1C Lab Routine Hyperglycemia Expected: 04/29/2022, Expires: 06/29/2022 [facility] Work Phone: Comment on above: Expected: 04/29/2022, Expires: 2 Start: 04-29-2022 End: 06-29-2022 Lipid 1996 panel - Serum or Plasma LIPID PANEL BASIC Lab Routine Mixed hyperlipidemia Expected: 04/29/2022, Expires: 06/29/2022 [facility] Work Phone: Comment on above: Expected: 04/29/2022, Expires: 2 Start: 11-09-2021 ADVANCE DIRECTIVE DISCUSSION ADVANCE DIRECTIVE DISCUSSION [facility] Start: 2021 RSV Vaccine (1 - 1-dose 75+ series) RSV Vaccine (1 - 1-dose 75+ series) [facility] Start: 01-04-2020 FECAL OCCULT BLOOD FECAL OCCULT BLOOD [facility] Start: 04-23-2017 Urine microalbumin profile [facility] Start: 01-10-2017 Colonoscopy COLONOSCOPY [facility] Start: 07-09-2016 SHINGRIX VACCINE (2 of 3) SHINGRIX VACCINE (2 of 3) [facility] Start: 2006 RSV Vaccine (1 - 1-dose 60+ series) RSV Vaccine (1 - 1-dose 60+ series) [facility] Start: [address] COLONOGRAPHY [facility] Start: 1991 SIGMOIDOSCOPY SIGMOIDOSCOPY [facility] Start: 1964 BP CONTROLLED (<130/80) BP CONTROLLED (<130/80) [facility] in Start: 1951 COVID-19 VACCINE (#1) COVID-19 VACCINE (#1) [facility] Start: 1950 COVID-19 VACCINE (1) COVID-19 VACCINE (1) [facility] Start: 04-13-1946 COVID-19 VACCINE (#1) COVID-19 VACCINE (#1) [facility] Bacteria identified in Urine by Culture URINE CULTURE Microbiology Routine Sensation of pressure in bladder area Feeling of incomplete bladder emptying Ordered: 07/28/2022 [facility] Work Phone: Comment on above: Ordered: 07/28/2022 Bacteria identified in Urine by Culture URINE CULTURE Microbiology Routine Urinary frequency Ordered: 07/16/2023 [facility] Work Phone: Comment on above: Ordered: 07/16/2023 Bacteria identified in Urine by Culture URINE CULTURE Microbiology Routine Microscopic hematuria Ordered: 08/25/2023 [facility] Work Phone: Comment on above: Ordered: 08/25/2023 Bacteria identified in Urine by Culture URINE CULTURE Microbiology Routine Gross hematuria 09/12/2024 7:48 PM ASIYA [facility] End: 01-14-2026 BD DXA TRABECULAR BONE SCORE (TBS) BD DXA TRABECULAR BONE SCORE (TBS) Radiology Routine Sjogren's syndrome without extraglandular involvement (HCC) Osteopenia, unspecified location Rash and nonspecific skin eruption GUERRA (dyspnea on exertion) 1 Occurrences starting 12/15/2024 until 01/14/2026 [facility] Comment on above: 1 Occurrences starting 12/15/2024 until 01/14/2026 BLADDER SCAN BLADDER SCAN Pro cedures Routine Sensation of pressure in bladder area Feeling of incomplete bladder emptying Ordered: 07/28/2022 [facility] Work Phone: Comment on above: Ordered: 07/28/2022 BLADDER SCAN BLADDER SCAN Pro cedures Routine Feeling of incomplete bladder emptying Ordered: 09/23/2022 [facility] Work Phone: Comment on above: Ordered: 09/23/2022 CARDIAC REHAB II OUT PT ([place] CARDIAC REHAB II [place] ([place] BIC Routine Mixed hyperlipidemia Primary hypertension 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 Ordered: 10/03/2024 [facility] Work Phone: Comment on above: Ordered: 10/03/2024 Cobalamin (Vitamin B 12) [Mass/volume] in Serum or Plasma VITAMIN B12 BLOOD Lab Routine Sjoegren syndrome (HCC) 07/07/2022 2:15 PM EDT [facility] Work Phone: Complement C3 [Mass/volume] in Serum or Plasma C3 COMPLEMENT BLD Lab Routine Sjoegren syndrome (HCC) 07/07/2022 2:15 PM EDT [facility] Work Phone: Complement C4 [Mass/volume] in Serum or Plasma C4 COMPLEMENT BLD Lab Routine Sjoegren syndrome (HCC) 07/07/2022 2:15 PM EDT [facility] Work Phone: COVID & INFLUENZA A/ B & RSV NAAT, ROUTINE COVID & INFLUENZA A/B & RSV NAAT, ROUTINE Microbiology Routine URI, acute 01/20/2024 4:46 PM EDT [facility] Work Phone: Creatine kinase [Enzymatic activity/volume] in Serum or Plasma CK CREATINE KINASE Lab Routine Sjoegren syndrome (HCC) 07/07/2022 2:15 PM EDT [facility] Work Phone: End: 01-08-2026 CT Chest WO contrast CT CHEST WO IVCON Radiology Routine Lung nodules 1 Occurrences starting 12/09/2024 until 01/08/2026 [facility] Work Phone: Comment on above: 1 Occurrences starting 12/09/2024 until 01/08/2026 CT Chest WO contrast CT CHEST WO IVCON Radiology Routine Lung nodules 12/19/2024 3:48 PM EST [facility] Work Phone: End: 08-08-2024 Ct thorax w/o contrast material CT CHEST WO IVCON Radiology Routine Chest pain, unspecified type 1 Occurrences starting 07/10/2023 until 08/08/2024 [facility] Work Phone: Comment on above: 1 Occurrences starting 07/10/2023 until 08/08/2024 CYTOLOGY NON-FIBER OPTICS ENGINEER CYTOLOGY NON-GY N Lab Routine Microscopic hematuria Ordered: 08/25/2023 [facility] Work Phone: Comment on above: Ordered: 08/25/2023 End: 01-14-2026 DXA Skeletal system.axial Views for bone density DXA-AXIAL SKELETON Radiology Routine Sjogren's syndrome without extraglandular involvement (HCC) Osteopenia, unspecified location Rash and nonspecific skin eruption GUERRA (dyspnea on exertion) 1 Occurrences starting 12/15/2024 until 01/14/2026 [facility] Work Phone: Comment on above: 1 Occurrences starting 12/15/2024 until 01/14/2026 DXA Skeletal system. axial Views for bone density DXA-AXIAL SKELETON Radiology Routine Sjogren's syndrome without extraglandular involvement (HCC) Osteopenia, unspecified location Rash and nonspecific skin eruption GUERRA (dyspnea on exertion) 01/20/2025 3:43 PM EDT [facility] Work Phone: End: 12-28-2023 DXA-AXIAL SKELETON DXA-AXIAL SKELETON Radiology Routine Encounter for screening for osteoporosis 1 Occurrences starting 11/28/2022 until 12/28/2023 [facility] Work Phone: Comment on above: 1 Occurrences starting 11/28/2022 until 12/28/2023 End: 06-17-2024 ECG COMPLETE ECG COMPLETE ECG Routine Palpitations 1 Occurrences starting 06/17/2023 until 06/17/2024 [facility] Work Phone: Comment on above: 1 Occurrences starting 06/17/2023 until 06/17/2024 ECG COMPLETE ECG COMPLETE ECG 07/25/2024 10:31 AM EDT [facility] ECG COMPLETE ECG COMPLETE ECG Routine Palpitations 11/23/2024 4:21 PM EST [facility] ECG COMPLETE ECG COMPLETE ECG Routine Lightheaded Ordered: 04/17/2025 [facility] Comment on above: Ordered: 04/17/2025 Guidance for percuta neous biopsy.core needle of Thyroid gland IMAGING GUIDED BIOPSY THYROID Radiology Routine Multiple thyroid nodules Ordered: 02/06/2025 [facility] Work Phone: Comment on above: Ordered: 02/06/2025 Guidance for percuta neous biopsy.core needle of Thyroid gland IMAGING GUIDED BIOPSY THYROID Radiology Routine Solitary thyroid nodule Ordered: 04/24/2025 [facility] Work Phone: Comment on above: Ordered: 04/24/2025 GRANT SCREENING GRANT SCREENING Ra diology Routine Visit for screening mammogram Ordered: 01/07/2023 [facility] Work Phone: Comment on above: Ordered: 01/07/2023 End: 10-02-2023 Mri spinal canal lumbar w/o contrast material MRI LUMBAR SPINE WO IVCON Radiology HODA Right lumbar radiculitis Lumbar stenosis with neurogenic claudication Intractable pain Foot drop, left 1 Occurrences starting 09/02/2022 until 10/02/2023 [facility] Work Phone: Comment on above: 1 Occurrences starting 09/02/2022 until 10/02/2023 OUTSIDE VENDOR CARDI AC OUTPATIENT EXTENDED RHYTHM RECORDING (WITHOUT TELEMETRY) OUTSIDE VENDOR CARDIAC OUTPATIENT EXTENDED RHYTHM RECORDING (WITHOUT TELEMETRY) Holter Routine Atrial tachycardia (HCC) Palpitations Ordered: 11/23/2024 [facility] Comment on above: Ordered: 11/23/2024 PROTEIN ELECTROPHORE SIS SERUM W/INTERP PROTEIN ELECTROPHORESIS SERUM W/INTERP Lab Routine Sjoegren syndrome (HCC) 07/07/2022 2:15 PM EDT [facility] Work Phone: PT PLAN OF CARE CERTIFICATION PT PLAN OF CARE CERTIFICATION Procedures Routine Sciatica, right side Ordered: 08/27/2022 [facility] Comment on above: Ordered: 08/27/2022 PT PLAN OF CARE CERTIFICATION PT PLAN OF CARE CERTIFICATION Procedures Routine Sciatica, right side Ordered: 09/30/2022 [facility] Work Phone: Comment on above: Ordered: 09/30/2022 Thyrotropin [Units/volume] in Serum or Plasma TSH BLD Lab Routine Sjoegren syndrome (HCC) 07/07/2022 2:15 PM EDT [facility] Work Phone: URINALYSIS, REFLEX MICROSCOPIC URINALYSIS, REFLEX MICROSCOPIC Lab Routine Sensation of pressure in bladder area Feeling of incomplete bladder emptying Ordered: 07/28/2022 [facility] Work Phone: Comment on above: Ordered: 07/28/2022 End: 09-15-2024 US ABD RIGHT UPPER QUADRANT US ABD RIGHT UPPER QUADRANT Radiology Routine 1 Occurrences starting 08/17/2023 until 09/15/2024 [facility] Work Phone: Comment on above: 1 Occurrences starting 08/17/2023 until 09/15/2024 End: 05-22-2023 US KIDNEY/BLADDER US KIDNEY/BLADDER Radiology Routine Atrophic vaginitis 1 Occurrences starting 04/22/2022 until 05/22/2023 [facility] Work Phone: Comment on above: 1 Occurrences starting 04/22/2022 until 05/22/2023 End: 09-12-2023 Us pelvic nonobstetric image dcmtn limited/f/u US PELVIS BLADDER Radiology Routine Feeling of incomplete bladder emptying 1 Occurrences starting 08/13/2022 until 09/12/2023 [facility] Work Phone: Comment on above: 1 Occurrences starting 08/13/2022 until 09/12/2023 End: 08-17-2025 US Thyroid gland US THYROID/PARATHYROID Radiology Routine Enlarged thyroid 1 Occurrences starting 07/18/2024 until 08/17/2025 [facility] Work Phone: Comment on above: 1 Occurrences starting 07/18/2024 until 08/17/2025 US Thyroid gland US THYROID/PARA THYROID Radiology Routine Enlarged thyroid 11/25/2024 2:08 PM EST [facility] Work Phone: End: 05-17-2026 XR Cervical spine AP and Lateral and oblique XR CERV OTHER 4V AP/LAT/OBL Radiology Routine Neck pain Lightheaded 1 Occurrences starting 04/17/2025 until 05/17/2026 [facility] Work Phone: Comment on above: 1 Occurrences starting 04/17/2025 until 05/17/2026 XR Cervical spine AP and Lateral and oblique XR CERV OTHER 4V AP/LAT/OBL Radiology Routine Neck pain Lightheaded 04/21/2025 4:22 PM EDT [facility] Work Phone: End: 08-01-2023 XR DIGIT GENERAL 3V FRONTAL/LAT/OBL LEFT XR DIGIT GENERAL 3V FRONTAL/LAT/OBL LEFT Radiology Routine Arthritis of carpometacarpal (CMC) joint of both thumbs 1 Occurrences starting 07/02/2022 until 08/01/2023 [facility] Work Phone: Comment on above: 1 Occurrences starting 07/02/2022 until 08/01/2023 End: 08-01-2023 XR DIGIT GENERAL 3V FRONTAL/LAT/OBL RIGHT XR DIGIT GENERAL 3V FRONTAL/LAT/OBL RIGHT Radiology Routine Arthritis of carpometacarpal (CMC) joint of both thumbs 1 Occurrences starting 07/02/2022 until 08/01/2023 [facility] Work Phone: Comment on above: 1 Occurrences starting 07/02/2022 until 08/01/2023 End: 12-28-2023 XR HIP GENERAL 3V PELV/AP/LAT RIGHT XR HIP GENERAL 3V PELV/AP/LAT RIGHT Radiology Routine Pain in right hip 1 Occurrences starting 11/28/2022 until 12/28/2023 [facility] Work Phone: Comment on above: 1 Occurrences starting 11/28/2022 until 12/28/2023 [facility] Immunizations Immunization Date Immunization Notes Care Provider [facility] 07-22-2018 pneumococcal conjuga te vaccine, 13 peggy Evans MD Work Phone: [facility] 07-22-2018 influenza virus vacc ine, unspecified formulation Jacquie Evans MD Work Phone: [facility] 12-04-2016 influenza, high dose seasonal, preservative-free Jacquie Evans MD Work Phone: [facility] Work Phone: 05-14-2016 pneumococcal polysaccharide vaccine, 23 peggy Evans MD Work Phone: [facility] Work Phone: 05-14-2016 zoster vaccine, live Shakeel Evans MD Work Phone: [facility] Work Phone: 11-14-2014 influenza, high dose seasonal, preservative-free Jacquie Evans MD Work Phone: [facility] 10-24-2013 influenza virus vacc ine, unspecified formulation Jacquie Evans MD Work Phone: [facility] 12-05-2011 influenza virus vacc ine, unspecified formulation Jacquie Evans MD Work Phone: [facility] [facility] Work Phone: 09-21-2010 pneumococcal polysaccharide vaccine, 23 valent Jacquie Evans MD Work Phone: [facility] Work Phone: 09-04-2009 influenza virus vacc ine, whole virus Jacquie Evans MD Work Phone: [facility] 09-08-2008 influenza virus vacc ine, whole virus Jacquie Evans MD Work Phone: [facility] 09-07-2008 influenza virus vacc ine, unspecified formulation Jacquie Evans MD Work Phone: [facility] 09-17-2007 influenza virus vacc ine, whole virus Jacquie Evans MD Work Phone: [facility] 04-23-2007 tetanus toxoid, redu amanda diphtheria toxoid, and acellular pertussis vaccine, adsorbed Jacquie Evans MD Work Phone: [facility] 09-03-2005 influenza virus vacc ine, unspecified formulation Jacquie Evans MD Work Phone: [facility] Payers Date Payer Category Payer Self-pay [id number] 2021 Medicare HUMANA MEDICARE HUMANA MEDICARE PPO [id number] 2021-Present [phone] [place], [place] [id number] PPO [id number] 2019 Medicare [id number] 2019 Medicare (Managed Care) 1.2. [id number] 2019 Medicare [id number] 1945 Unknown [id number] Unknown [id number] Unknown [id number] Unknown [id number] Unknown [id number] Unknown [id number] Unknown [id number] Unknown [id number] Unknown [id number] Unknown [id number] Social History Date Type Detail Facility Start: 07-01-2022 End: 02-06-2025 Tobacco smoking status NHIS Ex-smoker [facility] Work Phone: Start: 11-09-1960 End: 11-09-1980 History of tobacco use Current smoker [facility] Start: 11-09-1960 End: 11-09-1980 History of tobacco use Cigarette Smoker [facility] Start: 12-28-2020 End: 02-25-2022 Alcohol intake Current non-drinker of alcohol (finding) [facility] Start: 09-02-2011 End: 07-01-2022 Tobacco Comment up to 3 PPD [facility] Start: 1945 Sex Assigned At Not on file [facility] Start: 12-10-2020 End: 09-20-2024 Exposure to SARS-CoV-2 (event) Not sure [facility] Start: 07-01-2022 End: 06-02-2023 Cigarettes smoked current (pack per day) - Reported 1.5 [facility] Start: 07-01-2022 End: 02-06-2025 Tobacco use and exposure Smokeless tobacco non-user [facility] Start: 10-23-2022 End: 06-02-2023 Tobacco use panel [facility] Adult Depression Screening Assessment 0 [facility] Start: 08-25-2023 End: 04-17-2025 Alcohol intake Ex-drinker (finding) [facility] Tobacco smoking stat [facility] Tobacco smoking consumption unknown [facility] Work Phone: History of tobacco use Passive smoker [facility] Start: 06-26-2020 [facility]igarettes [facility] Start: 02-07-2025 Sex Female (finding) [facility] Start: 1945 Sex Assigned At Female W [facility] Goals Date Patient Goal Desired Activity /State Personal health goal Functional Status Date Assessment Result Facility 08-01-2021 Are you deaf, or do you have serious difficulty hearing No 08/01/2021 2:43 PM Sylvia Saldivar RN No [facility] 08-01-2021 Are you blind, or do you have serious difficulty seeing, even when wearing glasses No 08/01/2021 2:43 PM Sylvia Saldivar RN No [facility] 08-01-2021 Do you have serious difficulty walking or climbing stairs No 08/01/2021 2:43 PM Sylvia Saldivar RN No [facility] 08-01-2021 Do you have difficul ty dressing or bathing No 08/01/2021 2:43 PM Sylvia Saldivar RN No [facility] 08-01-2021 Because of a physica l, mental, or emotional condition, do you have difficulty doing errands alone such as visiting a physician's office or shopping No 08/01/2021 2:43 PM EDT Sylvia Kline RN No [facility] Mental Status Date Assessment Result Facility 08-01-2021 Because of a physica l, mental, or emotional condition, do you have serious difficulty concentrating, remembering, or making decisions No 08/01/2021 2:43 PM EDT Sylvia Kline RN No [facility] Clinical Notes 01-09-2021 to 05-16-2025 Andre Santana MD - 05/16/2025 5:48 PM EDTPatient InstructionsTelephone Encounter - Jordy Álvarez LPN - 05/02/2025 1:22 PM EDTTelephone Encounter - Jordy Álvarez LPN - 05/02/2025 1:22 PM EDT Note Date & Type Note Facility 05-16-2025 Note [facility] 05-16-2025 History of Present illness Narrative Terri Burciaga is a 79-year-old female with a history of CAD, stent placement, and hypothyroidism, presenting for follow-up of neck pain, lightheadedness, and medication management. HPI Neck Pain: - Chronic neck pain, primarily on the left side. - Aggravated by lifting objects such as a gallon of milk or water. - Falls asleep in a chair every night; uses a rolled-up fleece under the neck for support. - X-ray showed moderate degenerative changes. - Physical therapy has not been beneficial in the past. - Taking muscle relaxers, which cause fatigue. - Recently took a balance class through the [facility], which included neck stretches. - Denies numbness or tingling. Lightheadedness: - Occasional episodes of lightheadedness. - Denies palpitations, syncope, chest pain, or dyspnea. - Episodes are brief and resolve spontaneously. Coronary Artery Disease: - History of CAD with stent placement. - Currently on Plavix and aspirin. - Scheduled to see cardiology on June 26. - Family history of CVA in father and sister after being taken off Plavix for heart-related surgery. - Last cholesterol check in August showed total cholesterol of 122, triglycerides 85, HDL 41, and LDL 64. - Taking rosuvastatin. Hypothyroidism: - Under the care of Dr. Lofton. - Advised to see cardiology before any surgical intervention. Chronic Kidney Disease: - Stage 3 CKD. - Recent BMP showed BUN and creatinine levels consistent with previous results. - Not drinking a lot of water. - Denies use of NSAIDs or Tylenol. Hypertension: - Blood pressure well-controlled with losartan and carvedilol. - Recent reading of 122/62 mmHg. - Denies any issues with low heart rate. MEDICATIONS: Current Outpatient Medications Medication Sig clopidogrel (PLAVIX) 75 mg tablet Take 1 tablet by mouth once daily. carvedilol (COREG) 6.25 mg tablet Take 1 tablet by mouth every 12 hours. rosuvastatin (CRESTOR) 10 mg tablet Take 1 tablet by mouth daily at bedtime. losartan (COZAAR) 100 mg tablet Take 1 tablet by mouth once daily. ferrous sulfate (SLOW FE ORAL) Take by mouth once daily. acetaminophen (TYLENOL EXTRA STRENGTH) 500 mg tablet Take 500 mg by mouth every 8 hours as needed for pain. aspirin 81 mg chewable tablet Take 81 mg by mouth once daily. traMADol (ULTRAM) 50 mg tablet Take 50 mg by mouth every 6 hours as needed for pain. [id number]-fn-1-wkb-mnv-qlgvnkt-ast (MAXIMUM RED KRILL OMEGA-3) 878-94-83-45 mg cap Take 1 tablet by mouth once daily. nitroglycerin sublingual (NITROSTAT) 0.4 mg SL tablet Dissolve 1 tablet under the tongue every 5 minutes as needed for chest pain. coenzyme Q10 (CO Q-10) 100 mg cap capsule Take 100 mg by mouth once daily. iv contrast (will be provided with radiology test) CT Urogram WO/W Inject, intravenously, once for 1 dose.No IV access, insert saline lock prior to the beginning of sedation, infusion, injection of imaging exam. Discontinue saline lock post exam. If Pt. has a central line or IVAD, may access for administration according to line specific nursing protocol. Once exam is complete flush line and de-access according to line specific nursing protocol in the CT contrast administration guidelines link. Azelastine HCl (OPTIVAR) 0.05 % ophthalmic solution Use 1 Drop in both eyes twice daily. cyclobenzaprine (FLEXERIL) 5 mg tablet Take 1 tablet by mouth three times daily as needed. Magnesium 200 mg tab Take 1 tablet by mouth once daily. esomeprazole (NEXIUM) 20 mg capsule Take 1 capsule by mouth DAILY (6 AM). diphenhydrAMINE HCl 12.5 mg chewable tablet Take 12.5 mg by mouth at bedtime as needed. No current facility-administered medications for this visit. ALLERGIES: ALLERGIES Allergen Reactions Cigarette Smoke Shortness of Breath Gabapentin Intolerance Couldn't walk straight or control her muscles. Brilinta [Ticagrelo* Other: See Comments Excessive bruising, shortness of breath Adhesive Tape (Deyanira* Itching Aleve [Naproxen Sod* GI Upset Ativan [Lorazepam] Intolerance depression Cats Lopressor [Metoprol* Mental Status Change Suicidal ideation Nickel Rash Norvasc [Amlodipine* Swelling Swelling to feet and ankles Sulfa (Sulfonamide * Intolerance severe headache Vioxx [Rofecoxib] GI Upset PAST MEDICAL HISTORY Diagnosis Date Arrhythmia Benign neoplasm of colon CAD (coronary artery disease) 07/2024 s/p stent Calculus of kidney Esophageal reflux Esophagitis, unspecified Feeling of incomplete bladder emptying 09/23/2022 Granulomatous disease (HCC) Heart attack (HCC) 06/18/2024 History of recurrent UTIs HYPERLIPIDEMIA NEC/NOS 03/16/2009 HYPERTENSION NOS 03/10/2008 Mental disorder FRIEDA on CPAP Osteopenia BMD 12/12/2011 Post-thoracotomy pain Sciatica Sjogren syndrome (HCC) PAST SURGICAL HISTORY Procedure Laterality Date ABDOMINAL SURGERY HX APPENDECTOMY HX COLONOSCOPY COLONOSCOPY FLX DX W/COLLJ SPEC WHEN PFRMD 01/11/2016 Colonoscopy COLSC FLX W/RMVL OF TUMOR POLYP LESION SNARE TQ 02/05/2012 repeat 5 years EGD 02/05/2012 ESOPHAGOGASTRODUODENOSCOPY TRANSORAL DIAGNOSTIC 10/16/2008 EGD ESOPHAGOGASTRODUODENOSCOPY TRANSORAL DIAGNOSTIC 01/11/2016 EGD LYSIS OF ADHESIONS SALPINX/OVARY x6 OOPHORECTOMY, PART/TOTAL UNILAT/BILAT bilateral salpingectomy and left oophorectomy PAST SURGICAL HISTORY OF 07/2024 Repair of femoral pseudoaneurysm PAST SURGICAL HISTORY OF 07/2024 PCI RCA REM LESION TRUNK,ARM,LEG > 4.0CM 07/11/2022 REMV LUNG,WEDGE RESECTION Left 07/30/2021 VATS wedge resection of left lower lobe wedge SKIN EXCISION 07/11/2022 anterior chest wall & left torso TOTAL ABDOMINAL HYSTERECT W/WO RMVL TUBE OVARY 11/09/1969 endometriosis, change in ovary, right oophorectomy US THYROID BIOPSY Right 2020 1.7cm Rt superior/mid pole - BENIGN FAMILY HISTORY Problem Relation Age of Onset Hypertension Mother other (macular degeneration) Mother Coronary Artery Disease Father Stroke Father other (CABG) Father Coronary Artery Disease Sister other (Peripheral Vascular Disease) Sister Hypertension Sister Hypertension Sister Coronary Artery Disease Brother Hypertension Brother Ischemic Heart Disease Paternal Grandfather Hypertension Son Thyroid Cancer No Family History Social History Tobacco Use Smoking status: Former Current packs/day: 0.00 Average packs/day: 1.5 packs/day for 20.0 years (30.0 ttl pk-yrs) Types: Cigarettes Start date: 11/09/1960 Quit date: 11/09/1980 Years since quittin.5 Passive exposure: Past Smokeless tobacco: Never Tobacco comments: up to 3 PPD Vaping Use Vaping status: Never Used Substance Use Topics Alcohol use: Not Currently Drug use: Never Reviewed current medications, allergies, past medical history, surgical history, family history and social history today. REVIEW OF SYSTEMS Constitutional: (+) fatigue Cardiovascular: (+) palpitations, (-) chest pain, (-) presyncope Respiratory: (-) shortness of breath Musculoskeletal: (+) left-sided neck pain, (+) muscle weakness Neurological: (+) lightheadedness, (-) dizziness, (-) numbness, (-) tingling HEALTH MAINTENANCE: Reviewed health maintenance issues today and recommended the following in detail. Shingrix Vaccine(2 of 3) due on 07/09/2016 RSV Vaccine(1 - 1-dose 75+ series) Never done [employer] Annual Wellness Visit Never done LAB REVIEWED: Labs: - CBC: Normal results - BMP: - Glucose: 88 mg/dL - Kidney function consistent with stage 3 chronic kidney disease - (August) Lipid Panel: - Total Cholesterol: 122 mg/dL - LDL: 64 mg/dL - Triglycerides: 85 mg/dL - HDL: 41 mg/dL Imaging: - Neck X-ray: Moderate degenerative changes consistent with arthritis VITALS: BP 122/62 Pulse 71 Wt 83.5 kg (184 lb) SpO2 97% BMI 37.16 kg/m Last 4 Encounter Wt Readings: Date: Wt: 05/16/2025 83.5 kg (184 lb) 04/17/2025 81.2 kg (179 lb) 03/07/2025 81.2 kg (179 lb) 02/06/2025 80.5 kg (177 lb 6.4 oz) PHYSICAL EXAMINATION: GENERAL: NAD, alert and oriented. SKIN: Unremarkable, no rash or skin lesions. NECK: Supple, no lymphadenopathy, normal thyroid, no carotid bruits. LUNGS: Clear to auscultation bilaterally, no wheezes/rhonchi/rales. HEART: Regular rate and rhythm, no murmurs. No ectopy. EXTREMITIES: Normal, no deformities, no skin discoloration, no edema. NEURO: Awake, alert and oriented x3, cranial nerves II-XII grossly intact, normal gait, no involuntary motions. ASSESSMENT AND PLAN 1. Primary hypertension (I10) 2. 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 (I25.10) - Blood pressure well-controlled on losartan and carvedilol; recent reading 122/62 mmHg. - Carvedilol is primarily for cardiac muscle support and to maintain tight blood pressure control. - Continue current antihypertensive regimen. - follow with cardiology. Needs clearance prior to thyroid surgery. 3. Mixed hyperlipidemia (E78.2) - Last lipid panel in August showed total cholesterol 122 mg/dL, triglycerides 85 mg/dL, HDL 41 mg/dL, LDL 64 mg/dL. - Continue rosuvastatin therapy. - Ordered lipid panel in 3 months. 4. Atrial tachycardia (HCC) (I47.19) - Occasional palpitations, no syncope, chest pain, or severe dizziness. - Continue carvedilol, which may help with rhythm control. - Follow-up with cardiology on 06/26. 5. FRIEDA (obstructive sleep apnea) (G47.33) - stable. 6. Granulomatous lung disease (HCC) (J84.10) - stable. 7. Stage 3b chronic kidney disease (HCC) (N18.32) - Recent BMP shows stable BUN and creatinine levels. - Advised against excessive use of NSAIDs. - Monitor renal function with labs in 3 months. 8. Sjoegren syndrome (HCC) (M35.00) Per rheumatology 9. Prediabetes (R73.03) - Recent blood glucose level 88 mg/dL. - Monitor blood glucose levels with upcoming labs in 3 months. 10. Post PTCA (Z98.61) - On Plavix and aspirin for stent patency; cardiology to evaluate continuation at next visit on 06/26. - Discussed risks of discontinuing antiplatelet therapy prematurely. 11. Anxiety (F41.9) - stable. 12. Medication monitoring encounter (Z51.81) - Discussed current medications including losartan, carvedilol, rosuvastatin, Plavix, aspirin, and Nexium. - Advised continuation of CoQ10. - Discussed potential interactions and overuse of supplements; advised a multivitamin is generally safe. - Ordered labs in 3 months to include CBC, BMP, lipid panel, B12, and folate levels. - Scheduled Medicare wellness visit in 3 months to coincide with lab results. (See patient after visit summary for additional instructions to patient) Andre Santana MD Recording using [employer] software for draft documentation of the visit was discussed with the patient/authorized retail sales representative; all questions welcomed and answered. Patient/authorized retail sales representative agreed to proceed documented in this encounter [facility] 05-16-2025 Instructions Andre Santana MD - 05/16/2025 4:46 PM EDT - Continue your current heart and blood pressure medications (Carvedilol twice daily, Losartan) and your antiplatelet therapy (aspirin and Plavix) as prescribed. - Continue taking Nexium for your reflux as directed. - Perform gentle neck stretches and ihyxo-ak-jvzsbq exercises regularly, as you learned in your balance class. - Use a rolled fleece or supportive neck pillow that matches the curve of your neck when resting. - Try to avoid falling asleep in your chair when possible. - Schedule fasting blood work in about three months (around August) for: Complete blood count (CBC) Basic metabolic profile (BMP) Lipid panel Vitamin B12 and folate levels Blood sugar Kidney function tests You may drink water and black coffee beforehand. - We will arrange your Medicare annual wellness visit at the same time as your labs. - Keep your cardiology appointment on June 26 for clearance before your thyroid evaluation with Dr. Lofton. - Continue with your routine rheumatology follow-up as scheduled. - A standard daily multivitamin is acceptable. CoQ10 and magnesium supplements are safe to continue. Krill oil and garlic supplements can be taken if you choose but aren t necessary. documented in this encounter [facility] 05-02-2025 Telephone encounter Note Phoned pt, left detailed message with results/provider instructions on secure identified voicemail. Pt only to return call to office /c any questions or concerns. Jordy Álvarez LPN [facility] 05-02-2025 Miscellaneous Notes Phoned pt, left detailed message with results/provider instructions on secure identified voicemail. Pt only to return call to office /c any questions or concerns. Jordy Álvarez LPN Can please let patient know that we received her neck xray results, which does show moderate degenerative (arthritic) changes. Please continue with the plan of care as discussed with Dr. Santana. (Ie moist heat, muscle relaxers, topical medication like vashti segovia or biofreeze. It looks like she has a follow-up scheduled with Dr. Santana on 05/16/25. Trang Philippe APRN.CIRCULAR RIPSAW OPERATOR documented in this encounter [facility] 05-01-2025 Telephone encounter Note Can please let patient know that we received her neck xray results, which does show moderate degenerative (arthritic) changes. Please continue with the plan of care as discussed with Dr. Santana. (Ie moist heat, muscle relaxers, topical medication like vashti segovia or biofreeze. It looks like she has a follow-up scheduled with Dr. Santana on 05/16/25. Trang Philippe APRN.CIRCULAR RIPSAW OPERATOR [facility] Work Phone: 04-24-2025 Note [facility] 04-24-2025 History of Present illness Narrative Star Lofton M.D. [facility] [place] [address] ENDOCRINE SURGERY NEW CONSULTATION NAME: Terri Burciaga CLINIC NO: [id number] : 1945 REFERRING PROVIDER: MD Tulio Tinsley [address] [place] [facility] [address] The patient was referred by the above provider and my findings and recommendations will be communicated by way of the shared medical record or [place] mail. HPI: Terri Burciaga was evaluated today for a consultation regarding the following condition(s): Multiple thyroid nodules Solitary thyroid nodule (primary encounter diagnosis). New or established diagnosis: Established; 2020 Mode of detection: Ultrasound Associated symptoms: Yes; discomfort History of head and neck radiation: no First-degree family history of endocrine tumors: No History of previous thyroid biopsy: Yes; fine-needle aspiration biopsy of thyroid nodule; laterality: right (2020): benign History of prior cervical operation: No Pertinent medications (blood thinners, calcium, biotin, diuretics, lithium): Yes; PLAVIX for PR and stenting in June 18, 2024 in [place] PMH: PAST MEDICAL HISTORY Diagnosis Date Arrhythmia Benign neoplasm of colon CAD (coronary artery disease) 07/2024 s/p stent Calculus of kidney Esophageal reflux Esophagitis, unspecified Feeling of incomplete bladder emptying 09/23/2022 Granulomatous disease (HCC) Heart attack (HCC) 06/18/2024 History of recurrent UTIs HYPERLIPIDEMIA NEC/NOS 03/16/2009 HYPERTENSION NOS 03/10/2008 Mental disorder FRIEDA on CPAP Osteopenia BMD 12/12/2011 Post-thoracotomy pain Sciatica Sjogren syndrome (HCC) PSH: PAST SURGICAL HISTORY Procedure Laterality Date ABDOMINAL SURGERY HX APPENDECTOMY HX COLONOSCOPY COLONOSCOPY FLX DX W/COLLJ SPEC WHEN PFRMD 01/11/2016 Colonoscopy COLSC FLX W/RMVL OF TUMOR POLYP LESION SNARE TQ 02/05/2012 repeat 5 years EGD 02/05/2012 ESOPHAGOGASTRODUODENOSCOPY TRANSORAL DIAGNOSTIC 10/16/2008 EGD ESOPHAGOGASTRODUODENOSCOPY TRANSORAL DIAGNOSTIC 01/11/2016 EGD LYSIS OF ADHESIONS SALPINX/OVARY x6 OOPHORECTOMY, PART/TOTAL UNILAT/BILAT bilateral salpingectomy and left oophorectomy PAST SURGICAL HISTORY OF 07/2024 Repair of femoral pseudoaneurysm PAST SURGICAL HISTORY OF 07/2024 PCI RCA REM LESION TRUNK,ARM,LEG > 4.0CM 07/11/2022 REMV LUNG,WEDGE RESECTION Left 07/30/2021 VATS wedge resection of left lower lobe wedge SKIN EXCISION 07/11/2022 anterior chest wall & left torso TOTAL ABDOMINAL HYSTERECT W/WO RMVL TUBE OVARY 11/09/1969 endometriosis, change in ovary, right oophorectomy US THYROID BIOPSY Right 2020 1.7cm Rt superior/mid pole - BENIGN Medications: Current Outpatient Medications on File Prior to Visit Medication Sig clopidogrel (PLAVIX) 75 mg tablet Take 1 tablet by mouth once daily. carvedilol (COREG) 6.25 mg tablet Take 1 tablet by mouth every 12 hours. rosuvastatin (CRESTOR) 10 mg tablet Take 1 tablet by mouth daily at bedtime. losartan (COZAAR) 100 mg tablet Take 1 tablet by mouth once daily. ticagrelor (BRILINTA) 90 mg tablet Take 1 tablet by mouth two times a day. ferrous sulfate (SLOW FE ORAL) Take by mouth once daily. acetaminophen (TYLENOL EXTRA STRENGTH) 500 mg tablet Take 500 mg by mouth every 8 hours as needed for pain. aspirin 81 mg chewable tablet Take 81 mg by mouth once daily. traMADol (ULTRAM) 50 mg tablet Take 50 mg by mouth every 6 hours as needed for pain. qvbki-or-5-dmv-fru-rpqpwew-ast (MAXIMUM RED KRILL OMEGA-3) 651-12-95-45 mg cap Take 1 tablet by mouth once daily. nitroglycerin sublingual (NITROSTAT) 0.4 mg SL tablet Dissolve 1 tablet under the tongue every 5 minutes as needed for chest pain. coenzyme Q10 (CO Q-10) 100 mg cap capsule Take 100 mg by mouth once daily. iv contrast (will be provided with radiology test) CT Urogram WO/W Inject, intravenously, once for 1 dose.No IV access, insert saline lock prior to the beginning of sedation, infusion, injection of imaging exam. Discontinue saline lock post exam. If Pt. has a central line or IVAD, may access for administration according to line specific nursing protocol. Once exam is complete flush line and de-access according to line specific nursing protocol in the CT contrast administration guidelines link. Azelastine HCl (OPTIVAR) 0.05 % ophthalmic solution Use 1 Drop in both eyes twice daily. cyclobenzaprine (FLEXERIL) 5 mg tablet Take 1 tablet by mouth three times daily as needed. Magnesium 200 mg tab Take 1 tablet by mouth once daily. esomeprazole (NEXIUM) 20 mg capsule Take 1 capsule by mouth DAILY (6 AM). diphenhydrAMINE HCl 12.5 mg chewable tablet Take 12.5 mg by mouth at bedtime as needed. No current facility-administered medications on file prior to visit. All: ALLERGIES Allergen Reactions Cigarette Smoke Shortness of Breath Gabapentin Intolerance Couldn't walk straight or control her muscles. Brilinta [Ticagrelo* Other: See Comments Excessive bruising, shortness of breath Adhesive Tape (Deyanira* Itching Aleve [Naproxen Sod* GI Upset Ativan [Lorazepam] Intolerance depression Cats Lopressor [Metoprol* Mental Status Change Suicidal ideation Nickel Rash Norvasc [Amlodipine* Swelling Swelling to feet and ankles Sulfa (Sulfonamide * Intolerance severe headache Vioxx [Rofecoxib] GI Upset SH: Social History Tobacco Use Smoking status: Former Current packs/day: 0.00 Average packs/day: 1.5 packs/day for 20.0 years (30.0 ttl pk-yrs) Types: Cigarettes Start date: 11/09/1960 Quit date: 11/09/1980 Years since quittin.4 Passive exposure: Past Smokeless tobacco: Never Tobacco comments: up to 3 PPD Vaping Use Vaping status: Never Used Substance Use Topics Alcohol use: Not Currently Drug use: Never FH: Pertinent history above; otherwise, non-contributory REVIEW OF SYSTEMS: GENERAL: Well-appearing, no malaise or fevers HEENT: Negative for occular, acoustic, nasal, or oral complaints NECK: See HPI RESPIRATORY: Negative for cough, hemoptysis, wheezing, or resting dyspnea CARDIOVASCULAR: Negative for resting chest pain GI: No nausea, vomiting, or diarrhea MUSCULOSKELETAL: Negative for joint swelling or acute pain PSYCH: Negative for significant mood disorder or psychiatric illness ENDOCRINE: See HPI NEURO: No history of recent syncope, paralysis, or seizures PHYSICAL EXAM: On physical exam, Terri Burciaga is well appearing, alert, and oriented and appears euthyroid. On inspection, the skin over the anterior neck is smooth, no mass is visualized. Palpation revealed neck to be supple, thyroid gland is palpable and overall normal in size. No lymphadenopathy was palpated on either side of the neck. ULTRASOUND EXAMINATION: Ultrasound examination was performed in the office. The right thyroid lobe contained a solid, isoechoic nodule that measured 2.3 x 1.4 x 1.9 cm. The left thyroid lobe did not contain any worrisome findings. No worrisome lymphadenopathy was appreciated in either central neck compartment or jugular chain. LABS: TSH Date Value Ref Range Status 11/23/2024 2.620 0.270 - 4.200 mIU/L Final Calcium, Total Date Value Ref Range Status 04/21/2025 9.6 8.5 - 10.2 mg/dL Final ASSESSMENT and PLAN: In summary, Terri Burciaga has enlarging, symptomatic right thyroid nodule. We had a detailed discussion about regarding the management of thyroid nodules/neoplasms, the extent of thyroidectomy, and the potential for subsequent follow-up, which might include thyroid hormone replacement and/or suppression. Given her discomfort, she would like to undergo right thyroid lobectomy and isthmusectomy. Informed consent was obtained for the aforementioned operation. The illness itself, the natural course of the illness, the procedure, the benefits, the risks, the alternatives, and who will comprise the surgical team were all explained to the patient in depth. They agreed to the operation. In preparation, she will need cardiac evaluation prior to lobectomy and completion of one year Plavix . She is scheduled to see her Commercial Insurance Underwriter on 06/26/25. I appreciate being involved in the care of your patient, and please feel free to contact me should you have additional questions. I spent a total of 45 minutes on the date of the service which included preparing to see the patient, [id number] patient care, completing clinical documentation, obtaining and/or reviewing separately obtained history, performing a medically appropriate examination, counseling and educating the patient/family/caregiver, ordering medications, tests, or procedures, communicating with other HCPs (not separately reported), independently interpreting results (not separately reported), communicating results to the patient/family/caregiver, and care coordination (not separately reported). The medical decision making complexity for this encounter was moderate to high considering that the patient has a new complaint with a potential for significant morbidity if untreated or misdiagnosed. We had a detailed discussion regarding the natural course of the condition, the treatment options, and the potential role of surgery as a treatment option. Sincerely, Star Lofton M.D. Endocrine Surgeon [facility] CC: Tulio Pastorstanley Calderón [address] [facility] [id number] Andre Santana MD Cardiology: Dioni Gamboa MD documented in this encounter [facility] 04-21-2025 History of Present illness Narrative Radiology Service Progress Note PATIENT NAME: Terri Burciaga DATE OF SERVICE: April 21, 2025 TIME: 4:05 PM PATIENT IDENTITY VERIFICATION COMPLETED USING TWO (2) IDENTIFIERS: Name and Date of confirmed by patient verbally. FALL SCREENING: Has the patient had 2 falls in the last year or 1 fall with injury or currently using an Ambulatory Assistive Device (Walker, Cane, Wheelchair, Crutches, etc.)? No PATIENT GENDER DATA: Assigned female at . status: : No status: NO. PATIENT RELEVANT IMPLANT DATA REVIEWED: Not Applicable PATIENT PRESENTS WITH AN IMPLANTABLE OR ATTACHED DYNAMITE PACKING MACHINE OPERATOR: No RADIOLOGY DEPARTMENT: General X-ray: Exam(s) Completed: Spine X-Ray(s): Cervical AP / LAT / OBL PERIPHERAL IV DATA: Not applicable SIGNED BY: Lora Phillips April 21, 2025 4:05 PM documented in this encounter [facility] 04-21-2025 Note [facility] 04-17-2025 Note [facility] 06-09-2025 History of Present illness Narrative Terri Burciaga is a 79-year-old female with a history of PR, PCI, and Sjogren's syndrome, presenting with left-sided neck pain, lightheadedness, and medication side effects. HPI Left-Sided Neck Pain: - Pain radiates to bottom of head and shoulder, extending down the arm to the elbow. - Pain exacerbated by head movement. - Describes a sensation of tightness in the neck. - Pain extends across the upper back, around the bra line. - Denies known trauma or injury. - No specific treatment attempted for neck pain. Lightheadedness: - Recent episode of lightheadedness lasting approximately 30 seconds while sitting. - No associated palpitations or chest pain. - Denies dizziness or lightheadedness when lying down or turning head. - No history of syncope. - Episode occurred after consuming caffeinated coffee, which Terri usually avoids. Medication Side Effects: - Reports nausea, dull headache, and cognitive difficulties since starting rosuvastatin. - Takes rosuvastatin at night on an empty stomach, sometimes with a cracker. - Also takes aspirin at night. - Describes rosuvastatin as having a sweet taste. - Expresses dislike for taking medication. admits that most of these may not be side effect. PR: - History of PR in June 2024, treated with PCI and drug-eluting stent to RCA. - Follow-up with cardiology pending. Atrial Tachycardia: - Referred to electrophysiology by Dr. Ayers after Zio monitor detected an episode. - Missed appointment with water quality specialist Dr. Culver due to being 10 minutes late; has not rescheduled. - is seeing endo surgery for possible thyroidectomy. has nodules and does not want to have FNA. Thyroid Nodule: - Scheduled for thyroidectomy. - Recent consultation with endocrinology for thyroid nodule; opted for surgery over fine needle biopsy. Sjogren's Syndrome: - Stable condition. - Upcoming appointment with rheumatology in June. MEDICATIONS: Current Outpatient Medications Medication Sig carvedilol (COREG) 6.25 mg tablet Take 1 tablet by mouth every 12 hours. rosuvastatin (CRESTOR) 10 mg tablet Take 1 tablet by mouth daily at bedtime. losartan (COZAAR) 100 mg tablet Take 1 tablet by mouth once daily. ferrous sulfate (SLOW FE ORAL) Take by mouth once daily. aspirin 81 mg chewable tablet Take 81 mg by mouth once daily. coenzyme Q10 (CO Q-10) 100 mg cap capsule Take 100 mg by mouth once daily. Magnesium 200 mg tab Take 1 tablet by mouth once daily. esomeprazole (NEXIUM) 20 mg capsule Take 1 capsule by mouth DAILY (6 AM). clopidogrel (PLAVIX) 75 mg tablet Take 1 tablet by mouth once daily. ticagrelor (BRILINTA) 90 mg tablet Take 1 tablet by mouth two times a day. acetaminophen (TYLENOL EXTRA STRENGTH) 500 mg tablet Take 500 mg by mouth every 8 hours as needed for pain. traMADol (ULTRAM) 50 mg tablet Take 50 mg by mouth every 6 hours as needed for pain. [id number]-hol-fhm-voxplzd-ast (MAXIMUM RED KRILL OMEGA-3) 987-43-89-45 mg cap Take 1 tablet by mouth once daily. nitroglycerin sublingual (NITROSTAT) 0.4 mg SL tablet Dissolve 1 tablet under the tongue every 5 minutes as needed for chest pain. iv contrast (will be provided with radiology test) CT Urogram WO/W Inject, intravenously, once for 1 dose.No IV access, insert saline lock prior to the beginning of sedation, infusion, injection of imaging exam. Discontinue saline lock post exam. If Pt. has a central line or IVAD, may access for administration according to line specific nursing protocol. Once exam is complete flush line and de-access according to line specific nursing protocol in the CT contrast administration guidelines link. Azelastine HCl (OPTIVAR) 0.05 % ophthalmic solution Use 1 Drop in both eyes twice daily. cyclobenzaprine (FLEXERIL) 5 mg tablet Take 1 tablet by mouth three times daily as needed. diphenhydrAMINE HCl 12.5 mg chewable tablet Take 12.5 mg by mouth at bedtime as needed. No current facility-administered medications for this visit. ALLERGIES: ALLERGIES Allergen Reactions Cigarette Smoke Shortness of Breath Gabapentin Intolerance Couldn't walk straight or control her muscles. Brilinta [Ticagrelo* Other: See Comments Excessive bruising, shortness of breath Adhesive Tape (Deyanira* Itching Aleve [Naproxen Sod* GI Upset Ativan [Lorazepam] Intolerance depression Cats Lopressor [Metoprol* Mental Status Change Suicidal ideation Nickel Rash Norvasc [Amlodipine* Swelling Swelling to feet and ankles Sulfa (Sulfonamide * Intolerance severe headache Vioxx [Rofecoxib] GI Upset PAST MEDICAL HISTORY Diagnosis Date Arrhythmia Benign neoplasm of colon CAD (coronary artery disease) 07/2024 s/p stent Calculus of kidney Esophageal reflux Esophagitis, unspecified Feeling of incomplete bladder emptying 09/23/2022 Granulomatous disease (HCC) Heart attack (HCC) 06/18/2024 History of recurrent UTIs HYPERLIPIDEMIA NEC/NOS 03/16/2009 HYPERTENSION NOS 03/10/2008 Mental disorder FRIEDA on CPAP Osteopenia BMD 12/12/2011 Post-thoracotomy pain Sciatica Sjogren syndrome (HCC) PAST SURGICAL HISTORY Procedure Laterality Date ABDOMINAL SURGERY HX APPENDECTOMY HX COLONOSCOPY COLONOSCOPY FLX DX W/COLLJ SPEC WHEN PFRMD 01/11/2016 Colonoscopy COLSC FLX W/RMVL OF TUMOR POLYP LESION SNARE TQ 02/05/2012 repeat 5 years EGD 02/05/2012 ESOPHAGOGASTRODUODENOSCOPY TRANSORAL DIAGNOSTIC 10/16/2008 EGD ESOPHAGOGASTRODUODENOSCOPY TRANSORAL DIAGNOSTIC 01/11/2016 EGD LYSIS OF ADHESIONS SALPINX/OVARY x6 OOPHORECTOMY, PART/TOTAL UNILAT/BILAT bilateral salpingectomy and left oophorectomy PAST SURGICAL HISTORY OF 07/2024 Repair of femoral pseudoaneurysm PAST SURGICAL HISTORY OF 07/2024 PCI RCA REM LESION TRUNK,ARM,LEG > 4.0CM 07/11/2022 REMV LUNG,WEDGE RESECTION Left 07/30/2021 VATS wedge resection of left lower lobe wedge SKIN EXCISION 07/11/2022 anterior chest wall & left torso TOTAL ABDOMINAL HYSTERECT W/WO RMVL TUBE OVARY 11/09/1969 endometriosis, change in ovary, right oophorectomy US THYROID BIOPSY Right 2020 1.7cm Rt superior/mid pole - BENIGN FAMILY HISTORY Problem Relation Age of Onset Hypertension Mother other (macular degeneration) Mother Coronary Artery Disease Father Stroke Father other (CABG) Father Coronary Artery Disease Sister other (Peripheral Vascular Disease) Sister Hypertension Sister Hypertension Sister Coronary Artery Disease Brother Hypertension Brother Ischemic Heart Disease Paternal Grandfather Hypertension Son Thyroid Cancer No Family History Social History Tobacco Use Smoking status: Former Current packs/day: 0.00 Average packs/day: 1.5 packs/day for 20.0 years (30.0 ttl pk-yrs) Types: Cigarettes Start date: 11/09/1960 Quit date: 11/09/1980 Years since quittin.4 Passive exposure: Past Smokeless tobacco: Never Tobacco comments: up to 3 PPD Vaping Use Vaping status: Never Used Substance Use Topics Alcohol use: Not Currently Drug use: Never Reviewed current medications, allergies, past medical history, surgical history, family history and social history today. REVIEW OF SYSTEMS Constitutional: (+) malaise Head: (+) dull headache, (+) left jaw pain Neck: (+) left neck pain, (+) neck stiffness Cardiovascular: (+) chest pain Gastrointestinal: (+) nausea, (-) melena, (-) hematochezia Musculoskeletal: (+) left shoulder pain, (+) interscapular pain, (+) lower back pain, (+) left arm pain to elbow, (+) muscle tightness Neurological: (+) lightheadedness, (+) memory impairment HEALTH MAINTENANCE: Reviewed health maintenance issues today and recommended the following in detail. BP Controlled (<130/80) Never done Shingrix Vaccine(2 of 3) due on 07/09/2016 RSV Vaccine(1 - 1-dose 75+ series) Never done LAB REVIEWED: Labs: Tests: (Today) - Orthostatic Vital Signs: Negative. Pulse rate rises minimally, blood pressure remains stable on standing. - EKG: Sinus liliana with a rate of 59 and old inferior changes, no other abnormalities (November 2024) EKG: Sinus liliana with a rate of 59 and old inferior changes, no other abnormalities Imaging: VITALS: BP 138/82 Pulse 67 Wt 81.2 kg (179 lb) SpO2 97% BMI 36.15 kg/m Last 4 Encounter Wt Readings: Date: Wt: 04/17/2025 81.2 kg (179 lb) 03/07/2025 81.2 kg (179 lb) 02/06/2025 80.5 kg (177 lb 6.4 oz) 12/15/2024 78 kg (171 lb 15.3 oz) PHYSICAL EXAMINATION: GENERAL: NAD, alert and oriented. SKIN: Unremarkable, no rash or skin lesions. HEAD: Normocephalic. EYES: PERRLA, EOMI, conjunctiva clear. EARS: External ears normal, canals clear, TM's normal. NOSE/SINUSES: Nares normal. Septum midline. OROPHARYNX: Lips, mucosa, and tongue normal, good dentition. No oral lesions noted. NECK: Supple, no lymphadenopathy, normal thyroid, no carotid bruits. Tightness noted on the side of the neck. LUNGS: Clear to auscultation bilaterally, no wheezes/rhonchi/rales. HEART: Regular rate and rhythm, no murmurs. No ectopy. EXTREMITIES: Normal, no deformities, no skin discoloration, no edema. NEURO: Awake, alert and oriented x3, cranial nerves II-XII grossly intact, normal gait, no involuntary motions. normal DTR's. normal motor and sensory exam. negative orthostatics. ASSESSMENT AND PLAN 1. Neck pain (M54.2) - Pain radiating to the jaw, shoulder, and arm, exacerbated by head movement; likely musculoskeletal in origin. - Ordered cervical spine X-ray. - Recommended use of moist heat and prescribed muscle relaxants. - Follow-up in two weeks to reassess symptoms. 2. Lightheaded (R42) - Recent episode lasting approximately 30 seconds, not associated with palpitations; orthostatic vital signs negative for significant changes. - EKG performed, showing sinus bradycardia with a rate of 59 bpm and old inferior changes, consistent with previous EKG from November 2024. - Ordered CBC and BMP to evaluate for anemia and hydration status. - Advised patient to maintain adequate fluid intake. - Referred to cardiology for further evaluation, especially in context of upcoming thyroid surgery. Discussed that she likely would need to stay on antiplatelet therapy until the fall when she is one year from her previous PTCA so surgery would likely not currently be an option but would defer to cardiology. 3. Primary hypertension (I10) - Blood pressure well-controlled; no changes in medication regimen. - Continue current antihypertensive therapy. 4. Mixed hyperlipidemia (E78.2) - Currently managed with rosuvastatin; patient reports side effects including nausea and headaches. - Educated patient on the importance of continuing statin therapy for cardiovascular risk reduction. - Advised to take aspirin during the day with food to minimize gastrointestinal side effects. - Follow-up with cardiology to discuss potential medication adjustments. 5. Atrial tachycardia (HCC) (I47.19) - Missed appointment with electrophysiology specialist; advised to reschedule. - Referral to cardiology for further management and clearance prior to thyroid surgery. 6. 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 (I25.10) - History of myocardial infarction in June 2024 with PCI and drug-eluting stent placement. - Continue dual antiplatelet therapy with Plavix and aspirin. - Referral to cardiology for surgical clearance and further management. 7. Gastroesophageal reflux disease, unspecified whether esophagitis present (K21.9) - Continue current treatment with Nexium, taken first thing in the morning. - Advised to take aspirin with food to reduce gastrointestinal irritation. 8. Sjogren's syndrome, with unspecified organ involvement (HCC) (M35.00) - Condition stable; upcoming appointment with rheumatology in June for further evaluation. (See patient after visit summary for additional instructions to patient) Andre Santana MD Recording using ambient [employer] software for draft documentation of the visit was discussed with the patient/authorized retail sales representative; all questions welcomed and answered. Patient/authorized retail sales representative agreed to proceed documented in this encounter [facility] 04-17-2025 Instructions Andre Santana MD - 04/17/2025 6:10 PM EDT - Continue taking your Nexium each morning as prescribed. - Move your aspirin to the daytime (with breakfast or lunch) instead of at bedtime to help reduce stomach upset. - Continue your Plavix and losartan at their usual times. - Use moist heat on your neck and shoulder area and take your prescribed muscle relaxer as needed for tightness. - Get a cervical spine X-ray as ordered to evaluate your neck pain. - Return tomorrow morning for blood tests (CBC and basic metabolic panel) to check for anemia and hydration. - Contact cardiology office to reschedule or arrange evaluation by an water quality specialist (heart rhythm specialist) since you missed the prior appointment. - Follow up with cardiology for clearance before your planned thyroid surgery, based on the rhythm specialist s recommendations. - Call the office if you develop worsening lightheadedness, chest pain, new palpitations, or other concerning symptoms. - Return in a few weeks to review your test results and reassess your symptoms. documented in this encounter [facility] 04-04-2025 Telephone encounter Note Prescription Refill Information The patient has been identified by name and date of : Yes Caregiver verified no other encounters exist for this prescription request: Yes Caregiver confirmed with patient/requestor that no other refills are due, in the near future, with this provider at this time: Yes The last office visit in the department: 09/15/2024 Does the patient have a future office visit with this provider/department: yes Requested Prescriptions Pending Prescriptions Disp Refills carvedilol (COREG) 6.25 mg tablet 180 tablet 0 Sig: Take 1 tablet by mouth every 12 hours. Dania Lynn April 04, 2025 1:43 PM [facility] 04-04-2025 Miscellaneous Notes Prescription Refill Information The patient has been identified by name and date of : Yes Caregiver verified no other encounters exist for this prescription request: Yes Caregiver confirmed with patient/requestor that no other refills are due, in the near future, with this provider at this time: Yes The last office visit in the department: 09/15/2024 Does the patient have a future office visit with this provider/department: yes Requested Prescriptions Pending Prescriptions Disp Refills carvedilol (COREG) 6.25 mg tablet 180 tablet 0 Sig: Take 1 tablet by mouth every 12 hours. Dania Lynn April 04, 2025 1:43 PM documented in this encounter [facility] 03-15-2025 Note [facility] 03-15-2025 History of Present illness Narrative POPULATION HEALTH NAVIGATION OUTREACH Action/FYI Patient outreach for HCC gaps; AWV. Spoke to patient and has declined all wellness appointments. Reason for Outreach Care Gap/HCC or Scheduling Wellness Visits Care Gaps due: Medicare Annual Wellness Visit Patient Contacted: Spoke to patient/parent/or legal guardian Patient identified by name and : Yes Care Gap/HCC/Scheduling Wellness actions taken: Patient declined: Patient Declines Navigation Scheduling / Outreach Navigation Signature: Maren Aguilar March 15, 2025 11:14 AM documented in this encounter [facility] 03-07-2025 Instructions Tulio Calderón MD - 03/07/2025 2:47 PM EDT Endocrine surgery consult placed - call [phone] to make appointment Follow up in 6 to 8 weeks after surgery documented in this encounter [facility] 03-07-2025 Note [facility] 03-07-2025 History of Present illness Narrative [facility] Follow up note NAME: Terri Burciaga PCP: Andre Santana MD Chief Complaint: Multinodular goiter HPI: Terri Burciaga is a 79 year old female was referred for evaluation of thyroid nodules. History in brief, she was noted to have in early 2020 initially during a full body scan for a lung nodule. Further evaluation with thyroid US revealed multinodular goiter . She underwent FNAB (with Dr. Leah Uribe at [facility] per chart review) with benign results in 03/2021, after which no monitoring was done, until recently when a thyroid US was done in 08/[address] chest in 10/2023 after VATS - Denies family history of thyroid nodules or thyroid cancer. - Denies exposure to radioactive materials. - Reports occasional dysphagia and dyspnea, which she attributes to year-round allergies. - Former smoker, quit 50 years ago after smoking 1.5 packs per day for 15 years. 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 Interval history: 03/07/25: She has discussed with her daughter and they agreed on surgery rather than Biopsy Patient reports that she started noticed difficulty breathing and issues with swallowing medications PAST MEDICAL HISTORY Diagnosis Date Arrhythmia Benign neoplasm of colon CAD (coronary artery disease) 07/2024 s/p stent Calculus of kidney Esophageal reflux Esophagitis, unspecified Feeling of incomplete bladder emptying 09/23/2022 Granulomatous disease (HCC) Heart attack (HCC) 06/18/2024 History of recurrent UTIs HYPERLIPIDEMIA NEC/NOS 03/16/2009 HYPERTENSION NOS 03/10/2008 Mental disorder FRIEDA on CPAP Osteopenia BMD 12/12/2011 Post-thoracotomy pain Sciatica Sjogren syndrome (HCC) PAST SURGICAL HISTORY Procedure Laterality Date ABDOMINAL SURGERY HX APPENDECTOMY HX COLONOSCOPY COLONOSCOPY FLX DX W/COLLJ SPEC WHEN PFRMD 01/11/2016 Colonoscopy COLSC FLX W/RMVL OF TUMOR POLYP LESION SNARE TQ 02/05/2012 repeat 5 years EGD 02/05/2012 ESOPHAGOGASTRODUODENOSCOPY TRANSORAL DIAGNOSTIC 10/16/2008 EGD ESOPHAGOGASTRODUODENOSCOPY TRANSORAL DIAGNOSTIC 01/11/2016 EGD LYSIS OF ADHESIONS SALPINX/OVARY x6 OOPHORECTOMY, PART/TOTAL UNILAT/BILAT bilateral salpingectomy and left oophorectomy PAST SURGICAL HISTORY OF 07/2024 Repair of femoral pseudoaneurysm PAST SURGICAL HISTORY OF 07/2024 PCI RCA REM LESION TRUNK,ARM,LEG > 4.0CM 07/11/2022 REMV LUNG,WEDGE RESECTION Left 07/30/2021 VATS wedge resection of left lower lobe wedge SKIN EXCISION 07/11/2022 anterior chest wall & left torso TOTAL ABDOMINAL HYSTERECT W/WO RMVL TUBE OVARY 11/09/1969 endometriosis, change in ovary, right oophorectomy US THYROID BIOPSY Right 2020 1.7cm Rt superior/mid pole - BENIGN ALLERGIES Allergen Reactions Cigarette Smoke Shortness of Breath Gabapentin Intolerance Couldn't walk straight or control her muscles. Brilinta [Ticagrelo* Other: See Comments Excessive bruising, shortness of breath Adhesive Tape (Deyanira* Itching Aleve [Naproxen Sod* GI Upset Ativan [Lorazepam] Intolerance depression Cats Lopressor [Metoprol* Mental Status Change Suicidal ideation Nickel Rash Norvasc [Amlodipine* Swelling Swelling to feet and ankles Sulfa (Sulfonamide * Intolerance severe headache Vioxx [Rofecoxib] GI Upset Social History Tobacco Use Smoking status: Former Current packs/day: 0.00 Average packs/day: 1.5 packs/day for 20.0 years (30.0 ttl pk-yrs) Types: Cigarettes Start date: 11/09/1960 Quit date: 11/09/1980 Years since quittin.3 Passive exposure: Past Smokeless tobacco: Never Tobacco comments: up to 3 PPD Vaping Use Vaping status: Never Used Substance Use Topics Alcohol use: Not Currently Drug use: Never FAMILY HISTORY Problem Relation Age of Onset Hypertension Mother other (macular degeneration) Mother Coronary Artery Disease Father Stroke Father other (CABG) Father Coronary Artery Disease Sister other (Peripheral Vascular Disease) Sister Hypertension Sister Hypertension Sister Coronary Artery Disease Brother Hypertension Brother Ischemic Heart Disease Paternal Grandfather Hypertension Son Thyroid Cancer No Family History MEDICATIONS: Current Outpatient Medications on File Prior to Visit Medication Sig carvedilol (COREG) 6.25 mg tablet Take 1 tablet by mouth every 12 hours. rosuvastatin (CRESTOR) 10 mg tablet Take 1 tablet by mouth daily at bedtime. losartan (COZAAR) 100 mg tablet Take 1 tablet by mouth once daily. clopidogrel (PLAVIX) 75 mg tablet Take 1 tablet by mouth once daily. ferrous sulfate (SLOW FE ORAL) Take by mouth once daily. acetaminophen (TYLENOL EXTRA STRENGTH) 500 mg tablet Take 500 mg by mouth every 8 hours as needed for pain. aspirin 81 mg chewable tablet Take 81 mg by mouth once daily. traMADol (ULTRAM) 50 mg tablet Take 50 mg by mouth every 6 hours as needed for pain. dmcvn-yw-8-syg-ofn-ezbxgpn-ast (MAXIMUM RED KRILL OMEGA-3) [id number] mg cap Take 1 tablet by mouth once daily. nitroglycerin sublingual (NITROSTAT) 0.4 mg SL tablet Dissolve 1 tablet under the tongue every 5 minutes as needed for chest pain. coenzyme Q10 (CO Q-10) 100 mg cap capsule Take 100 mg by mouth once daily. Azelastine HCl (OPTIVAR) 0.05 % ophthalmic solution Use 1 Drop in both eyes twice daily. cyclobenzaprine (FLEXERIL) 5 mg tablet Take 1 tablet by mouth three times daily as needed. Magnesium 200 mg tab Take 1 tablet by mouth once daily. esomeprazole (NEXIUM) 20 mg capsule Take 1 capsule by mouth DAILY (6 AM). diphenhydrAMINE HCl 12.5 mg chewable tablet Take 12.5 mg by mouth at bedtime as needed. ticagrelor (BRILINTA) 90 mg tablet Take 1 tablet by mouth two times a day. (Patient not taking: Reported on 02/06/2025) iv contrast (will be provided with radiology test) CT Urogram WO/W Inject, intravenously, once for 1 dose.No IV access, insert saline lock prior to the beginning of sedation, infusion, injection of imaging exam. Discontinue saline lock post exam. If Pt. has a central line or IVAD, may access for administration according to line specific nursing protocol. Once exam is complete flush line and de-access according to line specific nursing protocol in the CT contrast administration guidelines link. No current facility-administered medications on file prior to visit. REVIEW OF SYSTEMS: 10 point ROS was reviewed and negative unless indicated in the HPI PHYSICAL EXAMINATION: BP: 110/72 Pulse: 75 Resp: 19 SpO2: 97 % General: no acute distress, alert and orientated X 3 Eyes:EOMI, pupils are equally round, anicteric sclera Neck - supple, no significant cervical adenopathy Thyroid: enlarged in size, noted to have asymmetry, right sided discretely palpable nodule Neuro: alert, oriented, normal speech, no focal findings noted CV: normal rate and regular rhythm, S1 and S2 normal. Chest: unlabored breathing on room air Musculoskeletal: no joint tenderness, deformity or swelling Extremities: no edema, no discoloration Skin: no rash or erythema LABS AND IMAGING TSH Date Value Ref Range Status 11/23/2024 2.620 0.270 - 4.200 mIU/L Final Thyroid ultrasound (11/25/2024): RESULT: Right Lobe: 4.5 x 2.0 x 1.9 cm; homogeneous echogenicity, expected vascular flow. Left Lobe: 3.9 x 1.1 x 1.3 cm; homogeneous echogenicity, expected vascular flow. Isthmus: 0.3 cm The most suspicious thyroid nodule(s) (up to four) as below: NODULE 1: Location: Right mid-upper pole Size: 1.4 x 1.6 x 2.3 cm, previously 1.0 x 1.4 x 1.7 cm Characteristics: Composition: Solid or almost completely solid, 2 points Echogenicity: Very hypoechoic, 3 points Shape: [id number], 0 points Margin: Smooth, 0 points Echogenic foci (add points for all that apply): Punctate echogenic foci, 3 points Internal vascularity: present Interval growth: Significant interval growth (20% increase in at least two nodule dimensions and a minimal increase of 2 mm, or a 50% or greater increase in volume). TI-RADS Category: TR5 ACR Recommendation: TI-RADS 5 nodule. FNA is advised. NODULE 2: Location: Right lower pole Size: 0.4 x 0.6 x 0.6 cm, previously 0.2 x 0.5 x 0.5 cm Characteristics: Composition: Solid or almost completely solid, 2 points Echogenicity: Hypoechoic, 2 points Shape: Thgan-[id number]-raiq, 0 points Margin: Smooth, 0 points Echogenic foci (add points for all that apply): None, 0 points Internal vascularity: absent Interval growth: No significant growth given differences in technique TI-RADS Category: TR4 ACR Recommendation: TI-RADS 4 nodule. No FNA or follow-up imaging is advised. ASSESSMENT AND PLAN: Terri Burciaga is a 79 year old female presenting to endocrinology for follow up on MNG 1. Bilateral Thyroid nodules: - TSH normal in 11/2024 - as discussed on last appointment about biopsy, patient did not schedule for this, and she reported compressive symptoms. In addition to this, she reported discussing with her daughter and they mutually agreed to proceed for surgery rather than FNAB - endocrine surgery consult placed Reviewed possible right lobectomy Reviewed 15 to 40% chance of need for lifelong therapy with LT4 for thyroid hormone supplementation post surgery, while in the rest the half gland left might be able to compensate Briefly discussed about complications of surgery, but will be elaborated on visit with the surgeon Follow up in 6 to 8 weeks after surgery Tulio Calderón MD [facility] Endocrinology and Metabolism [place] [facility] Medical Decision Making: Problems: Moderate: 1+ chronic illnesses with change Risk: High: Decision on elective major surgery w/ risk factors Medical Decision Making Level: 4 - Moderate documented in this encounter [facility] 02-06-2025 Instructions Tulio Calderón MD - 02/06/2025 1:40 PM EDT IR procedure for thyroid biopsy has been ordered- will be scheduled accordingly documented in this encounter [facility] 02-06-2025 Note [facility] 02-06-2025 History of Present illness Narrative [facility] Initial Clinic Visit Note NAME: Terri Burciaga PCP: Andre Santana MD Requesting Provider: Andre Santana [address] [facility] [id number] My final recommendations will be communicated back to the requesting physician by way of shared medical record or letter via [place] mail. The patient consented to the use of [employer] software for draft documentation of the visit consistent with [facility] s Notice of Privacy Practices. Chief Complaint: Multinodular goiter HPI: Terri Burciaga is a 79 year old female was referred for evaluation of thyroid nodules. History in brief, she was noted to have in early 2020 initially during a full body scan for a lung nodule. Further evaluation with thyroid US revealed multinodular goiter . She underwent FNAB (with Dr. Leah Uribe at [facility] per chart review) with benign results in 03/2021, after which no monitoring was done, until recently when a thyroid US was done in 08/[address] chest in 10/2023 after VATS - Denies family history of thyroid nodules or thyroid cancer. - Denies exposure to radioactive materials. - Reports occasional dysphagia and dyspnea, which she attributes to year-round allergies. - Former smoker, quit 50 years ago after smoking 1.5 packs per day for 15 years. 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 PAST MEDICAL HISTORY Diagnosis Date Arrhythmia Benign neoplasm of colon CAD (coronary artery disease) 07/2024 s/p stent Calculus of kidney Esophageal reflux Esophagitis, unspecified Feeling of incomplete bladder emptying 09/23/2022 Granulomatous disease (HCC) Heart attack (HCC) 06/18/2024 History of recurrent UTIs HYPERLIPIDEMIA NEC/NOS 03/16/2009 HYPERTENSION NOS 03/10/2008 Mental disorder FRIEDA on CPAP Osteopenia BMD 12/12/2011 Post-thoracotomy pain Sciatica Sjogren syndrome (HCC) PAST SURGICAL HISTORY Procedure Laterality Date ABDOMINAL SURGERY HX APPENDECTOMY HX COLONOSCOPY COLONOSCOPY FLX DX W/COLLJ SPEC WHEN PFRMD 01/11/2016 Colonoscopy COLSC FLX W/RMVL OF TUMOR POLYP LESION SNARE TQ 02/05/2012 repeat 5 years EGD 02/05/2012 ESOPHAGOGASTRODUODENOSCOPY TRANSORAL DIAGNOSTIC 10/16/2008 EGD ESOPHAGOGASTRODUODENOSCOPY TRANSORAL DIAGNOSTIC 01/11/2016 EGD LYSIS OF ADHESIONS SALPINX/OVARY x6 OOPHORECTOMY, PART/TOTAL UNILAT/BILAT bilateral salpingectomy and left oophorectomy PAST SURGICAL HISTORY OF 07/2024 Repair of femoral pseudoaneurysm PAST SURGICAL HISTORY OF 07/2024 PCI RCA REM LESION TRUNK,ARM,LEG > 4.0CM 07/11/2022 REMV LUNG,WEDGE RESECTION Left 07/30/2021 VATS wedge resection of left lower lobe wedge SKIN EXCISION 07/11/2022 anterior chest wall & left torso TOTAL ABDOMINAL HYSTERECT W/WO RMVL TUBE OVARY 11/09/1969 endometriosis, change in ovary, right oophorectomy US THYROID BIOPSY Right 2020 1.7cm Rt superior/mid pole - BENIGN ALLERGIES Allergen Reactions Cigarette Smoke Shortness of Breath Gabapentin Intolerance Couldn't walk straight or control her muscles. Brilinta [Ticagrelo* Other: See Comments Excessive bruising, shortness of breath Adhesive Tape (Deyanira* Itching Aleve [Naproxen Sod* GI Upset Ativan [Lorazepam] Intolerance depression Cats Lopressor [Metoprol* Mental Status Change Suicidal ideation Nickel Rash Norvasc [Amlodipine* Swelling Swelling to feet and ankles Sulfa (Sulfonamide * Intolerance severe headache Vioxx [Rofecoxib] GI Upset Social History Tobacco Use Smoking status: Former Current packs/day: 0.00 Average packs/day: 1.5 packs/day for 20.0 years (30.0 ttl pk-yrs) Types: Cigarettes Start date: 11/09/1960 Quit date: 11/09/1980 Years since quittin.2 Passive exposure: Past Smokeless tobacco: Never Tobacco comments: up to 3 PPD Vaping Use Vaping status: Never Used Substance Use Topics Alcohol use: Not Currently Drug use: Never FAMILY HISTORY Problem Relation Age of Onset Hypertension Mother other (macular degeneration) Mother Coronary Artery Disease Father Stroke Father other (CABG) Father Coronary Artery Disease Sister other (Peripheral Vascular Disease) Sister Hypertension Sister Hypertension Sister Coronary Artery Disease Brother Hypertension Brother Ischemic Heart Disease Paternal Grandfather Hypertension Son Thyroid Cancer No Family History MEDICATIONS: Current Outpatient Medications on File Prior to Visit Medication Sig carvedilol (COREG) 6.25 mg tablet Take 1 tablet by mouth every 12 hours. rosuvastatin (CRESTOR) 10 mg tablet Take 1 tablet by mouth daily at bedtime. losartan (COZAAR) 100 mg tablet Take 1 tablet by mouth once daily. clopidogrel (PLAVIX) 75 mg tablet Take 1 tablet by mouth once daily. ferrous sulfate (SLOW FE ORAL) Take by mouth once daily. acetaminophen (TYLENOL EXTRA STRENGTH) 500 mg tablet Take 500 mg by mouth every 8 hours as needed for pain. aspirin 81 mg chewable tablet Take 81 mg by mouth once daily. traMADol (ULTRAM) 50 mg tablet Take 50 mg by mouth every 6 hours as needed for pain. mfcfp-at-1-tho-bfl-xaapbdn-ast (MAXIMUM RED KRILL OMEGA-3) 013-01-41-45 mg cap Take 1 tablet by mouth once daily. nitroglycerin sublingual (NITROSTAT) 0.4 mg SL tablet Dissolve 1 tablet under the tongue every 5 minutes as needed for chest pain. coenzyme Q10 (CO Q-10) 100 mg cap capsule Take 100 mg by mouth once daily. Azelastine HCl (OPTIVAR) 0.05 % ophthalmic solution Use 1 Drop in both eyes twice daily. cyclobenzaprine (FLEXERIL) 5 mg tablet Take 1 tablet by mouth three times daily as needed. Magnesium 200 mg tab Take 1 tablet by mouth once daily. esomeprazole (NEXIUM) 20 mg capsule Take 1 capsule by mouth DAILY (6 AM). diphenhydrAMINE HCl 12.5 mg chewable tablet Take 12.5 mg by mouth at bedtime as needed. ticagrelor (BRILINTA) 90 mg tablet Take 1 tablet by mouth two times a day. (Patient not taking: Reported on 02/06/2025) iv contrast (will be provided with radiology test) CT Urogram WO/W Inject, intravenously, once for 1 dose.No IV access, insert saline lock prior to the beginning of sedation, infusion, injection of imaging exam. Discontinue saline lock post exam. If Pt. has a central line or IVAD, may access for administration according to line specific nursing protocol. Once exam is complete flush line and de-access according to line specific nursing protocol in the CT contrast administration guidelines link. No current facility-administered medications on file prior to visit. REVIEW OF SYSTEMS: 10 point ROS was reviewed and negative unless indicated in the HPI PHYSICAL EXAMINATION: BP: 138/82 Pulse: 68 Resp: 20 SpO2: 98 % General: no acute distress, alert and orientated X 3 Eyes:EOMI, pupils are equally round, anicteric sclera Neck - supple, no significant adenopathy, Thyroid: enlarged in size, noted to have asymmetry, right sided discretely palpable nodule Neuro: alert, oriented, normal speech, no focal findings noted CV: normal rate and regular rhythm, S1 and S2 normal. Chest: unlabored breathing on room air Musculoskeletal: no joint tenderness, deformity or swelling Extremities: no edema, no discoloration Skin: no rash or erythema LABS AND IMAGING TSH Date Value Ref Range Status 11/23/2024 2.620 0.270 - 4.200 mIU/L Final Thyroid ultrasound (11/25/2024): RESULT: Right Lobe: 4.5 x 2.0 x 1.9 cm; homogeneous echogenicity, expected vascular flow. Left Lobe: 3.9 x 1.1 x 1.3 cm; homogeneous echogenicity, expected vascular flow. Isthmus: 0.3 cm The most suspicious thyroid nodule(s) (up to four) as below: NODULE 1: Location: Right mid-upper pole Size: 1.4 x 1.6 x 2.3 cm, previously 1.0 x 1.4 x 1.7 cm Characteristics: Composition: Solid or almost completely solid, 2 points Echogenicity: Very hypoechoic, 3 points Shape: Ubzje-cayi-btim, 0 points Margin: Smooth, 0 points Echogenic foci (add points for all that apply): Punctate echogenic foci, 3 points Internal vascularity: present Interval growth: Significant interval growth (20% increase in at least two nodule dimensions and a minimal increase of 2 mm, or a 50% or greater increase in volume). TI-RADS Category: TR5 ACR Recommendation: TI-RADS 5 nodule. FNA is advised. NODULE 2: Location: Right lower pole Size: 0.4 x 0.6 x 0.6 cm, previously 0.2 x 0.5 x 0.5 cm Characteristics: Composition: Solid or almost completely solid, 2 points Echogenicity: Hypoechoic, 2 points Shape: Tzljg-wkvf-odse, 0 points Margin: Smooth, 0 points Echogenic foci (add points for all that apply): None, 0 points Internal vascularity: absent Interval growth: No significant growth given differences in technique TI-RADS Category: TR4 ACR Recommendation: TI-RADS 4 nodule. No FNA or follow-up imaging is advised. ASSESSMENT AND PLAN: Terri Burciaga is a 79 year old female presenting to endocrinology for evaluation of thyroid nodule. 1. Bilateral Thyroid nodules: - TSH normal in 11/2024 - I personally reviewed the images of the thyroid ultrasound and discussed the findings with the patient. - I discussed with the patient the following: The prevalence of thyroid nodules and risk of cancer The indication, benefits and risks of doing an FNA as well as the benefits and risks of the alternatives. Discussed hyperfunctioning nodules and management, possible surgery if >4 cm/ or if compressive symptoms. I discussed FNAB being the best recommendation for the dominant nodule given significant increase in size The procedure, at length. The possible scenarios depending on the cytology: benign, indeterminate, malignant and the respective management. The availability of Afirma for indeterminate cytology. - she agrees to have the FNA done, would but prefer to have atleast partly knocked out like on the last procedure in 2020 - IR procedure placed.- advised her to secret with Dr. Uribe as before - she takes two different anti-platelet medications Follow up in 8 weeks Tulio Calderón MD [facility] Endocrinology and Metabolism [place] [facility] Medical Decision Making: Problems: Moderate: 1+ chronic illnesses with change Data: Unique test result(s) reviewed: 3+ Unique test(s) ordered: 1 Independent interpretation of test from other physician/QHCP Medical Decision Making Level: 4 - Moderate documented in this encounter [facility] 01-23-2025 Telephone encounter Note Patient notified of results, verbalizes understanding of instructions. Tiara Tamez MA [facility] 01-23-2025 Miscellaneous Notes Patient notified of results, verbalizes understanding of instructions. Tiara Tamez MA ----- Message from Maren Rhodes MD sent at 01/23/2025 11:41 AM EDT ----- Please call patient to let her know that I received the results of her bone density scan. It is stable and slightly improved. No additional workup is needed at this time but we will continue to monitor this with repeat bone density in 2 years. documented in this encounter [facility] 01-23-2025 Telephone encounter Note ----- Message from Maern Rhodes MD sent at 01/23/2025 11:41 AM EDT ----- Please call patient to let her know that I received the results of her bone density scan. It is stable and slightly improved. No additional workup is needed at this time but we will continue to monitor this with repeat bone density in 2 years. [facility] 01-20-2025 History of Present illness Narrative Radiology Service Progress Note PATIENT NAME: Terri Burciaga DATE OF SERVICE: January 20, 2025 TIME: 3:24 PM PATIENT IDENTITY VERIFICATION COMPLETED USING TWO (2) IDENTIFIERS: Name and Date of confirmed by patient verbally. FALL SCREENING: Has the patient had 2 falls in the last year or 1 fall with injury or currently using an Ambulatory Assistive Device (Walker, Cane, Wheelchair, Crutches, etc.)? No PATIENT GENDER DATA: Assigned female at . status: : No status: NO. PATIENT RELEVANT IMPLANT DATA REVIEWED: Not Applicable PATIENT PRESENTS WITH AN IMPLANTABLE OR ATTACHED DYNAMITE PACKING MACHINE OPERATOR: No RADIOLOGY DEPARTMENT: Bone Density PERIPHERAL IV DATA: Not applicable SIGNED BY: RT Alessio(R) January 20, 2025 3:24 PM documented in this encounter [facility] 01-20-2025 Note [facility] 01-06-2025 Telephone encounter Note Attempted to reach patient. Left detailed VM to return call to [phone] for an important message from Dr. Rhodes. Krystal Matthews RN [facility] 01-06-2025 Miscellaneous Notes Attempted to reach patient. Left detailed VM to return call to [phone] for an important message from Dr. Rhodes. Krystal Matthews RN ----- Message from Maren Rhodes MD sent at 01/06/2025 3:47 PM EST ----- Please call patient to let her know I received the results of her labs. They do not show any new autoimmune disease other than the Sjogren's for which we are following her. If she would like to try hydroxychloroquine for her rash we can schedule an appointment sooner to talk about that. Thank you! documented in this encounter [facility] 01-06-2025 Telephone encounter Note ----- Message from Maren Rhodes MD sent at 01/06/2025 3:47 PM EST ----- Please call patient to let her know I received the results of her labs. They do not show any new autoimmune disease other than the Sjogren's for which we are following her. If she would like to try hydroxychloroquine for her rash we can schedule an appointment sooner to talk about that. Thank you! [facility] 01-03-2025 Telephone encounter Note Spoke with patient and related the message. She will schedule the appointment. Juliann Dietrich MA January 03, 2025 4:32 PM [facility] 01-03-2025 Miscellaneous Notes Spoke with patient and related the message. She will schedule the appointment. Juliann Dietrich MA January 03, 2025 4:32 PM 12/26/24 3:53 PM Result Note Left message for her to call and speak with nurse. Looks like number to schedule with Dr Schmid is [phone] Yocasta Stevenson LPN Regarding result: OUTSIDE VENDOR CARDIAC OUTPATIENT EXTENDED RHYTHM RECORDING (WITHOUT TELEMETRY) TR ----- Message from Andre Santana MD sent at 12/26/2024 11:29 AM EST ----- Let her Know Dr Abarca has put in a consult to have one of their heart rhythm people see her. documented in this encounter [facility] 12-29-2024 Telephone encounter Note 12/26/24 3:53 PM Result Note Left message for her to call and speak with nurse. Looks like number to schedule with Dr Schmid is [phone] Yocasta Stevenson LPN Regarding result: OUTSIDE VENDOR CARDIAC OUTPATIENT EXTENDED RHYTHM RECORDING (WITHOUT TELEMETRY) TR [facility] 12-29-2024 Telephone encounter Note ----- Message from Andre Santana MD sent at 12/26/2024 11:29 AM EST ----- Let her Know Dr Abarca has put in a consult to have one of their heart rhythm people see her. [facility] 12-26-2024 Telephone encounter Note Spoke to Terri regarding chest CT results. Stable LLL nodules. Nothing new. No need for further surveillance [facility] 12-26-2024 Miscellaneous Notes Spoke to Terri regarding chest CT results. Stable LLL nodules. Nothing new. No need for further surveillance documented in this encounter [facility] 12-26-2024 Telephone encounter Note Patient called and notified that script was sent. Ekaterina Thorne RN [facility] 12-26-2024 Miscellaneous Notes Patient called and notified that script was sent. Ekaterina Thorne RN Patient is finishing her Brilinta RX and has 3 tablets to go. At last office visit it was discussed to begin Plavix once she had completed her 90 day supply of Brilinta. She would like 30 day scripts to begin to [facility] in [place]. She believes a loading dose was discussed at her office visit. Please advise and contact patient. Anitha Jarvis LPN documented in this encounter [facility] 12-26-2024 Telephone encounter Note The patient has been identified by name and date of : Yes Caregiver verified no other encounters exist for this prescription request: Yes Caregiver confirmed with patient/requestor that no other refills are due, in the near future, with this provider at this time: Yes The last office visit in the department: 11/23/2024 Does the patient have a future office visit with this provider/department: Yes 04/17/2025 Requested Prescriptions Pending Prescriptions Disp Refills carvedilol (COREG) 6.25 mg tablet 180 tablet 0 Sig: Take 1 tablet by mouth every 12 hours. rosuvastatin (CRESTOR) 10 mg tablet 90 tablet 1 Sig: Take 1 tablet by mouth daily at bedtime. losartan (COZAAR) 100 mg tablet 90 tablet 3 Sig: Take 1 tablet by mouth once daily. Dillan Martin LPN December 26, 2024 1:53 PM [facility] 12-26-2024 Miscellaneous Notes The patient has been identified by name and date of : Yes Caregiver verified no other encounters exist for this prescription request: Yes Caregiver confirmed with patient/requestor that no other refills are due, in the near future, with this provider at this time: Yes The last office visit in the department: 11/23/2024 Does the patient have a future office visit with this provider/department: Yes 04/17/2025 Requested Prescriptions Pending Prescriptions Disp Refills carvedilol (COREG) 6.25 mg tablet 180 tablet 0 Sig: Take 1 tablet by mouth every 12 hours. rosuvastatin (CRESTOR) 10 mg tablet 90 tablet 1 Sig: Take 1 tablet by mouth daily at bedtime. losartan (COZAAR) 100 mg tablet 90 tablet 3 Sig: Take 1 tablet by mouth once daily. Dillan Martin LPN December 26, 2024 1:53 PM documented in this encounter [facility] 12-26-2024 Telephone encounter Note Patient is finishing her Brilinta RX and has 3 tablets to go. At last office visit it was discussed to begin Plavix once she had completed her 90 day supply of Brilinta. She would like 30 day scripts to begin to [facility] [place]. She believes a loading dose was discussed at her office visit. Please advise and contact patient. Anitha Jarvis LPN [facility] 12-16-2024 Telephone encounter Note Dermatology records received, reviewed Punch biopsy 09/19/2024: Interface dermatitis, favor vacuolar, this cutaneous pattern of injury is quite supportive of a connective tissue disorder such as dermatomyositis or lupus erythematosus. Eosinophils are absent. [facility] 12-16-2024 Miscellaneous Notes Dermatology records received, reviewed Punch biopsy 09/19/2024: Interface dermatitis, favor vacuolar, this cutaneous pattern of injury is quite supportive of a connective tissue disorder such as dermatomyositis or lupus erythematosus. Eosinophils are absent. documented in this encounter [facility] 12-15-2024 Instructions Maren Rhodes MD - 12/15/2024 2:11 PM EST Labs anytime, fasting in the morning Bone density at [place] anytime after 01/07/2025 Follow up 6 months Follow up with your PCP team to talk about if you need any more age appropriate cancer screening (mammograms etc) documented in this encounter [facility] 12-15-2024 Note [facility] 12-15-2024 History of Present illness Narrative Images from the original note were not included. Rheumatology FOLLOW UP VISIT Date of Service: 12/15/2024 Patient: Terri Burciaga Medical Record: [id number] Primary Care Physician: Andre Santana MD Last Rheumatology visit: 12/10/2023 (with Maren Rhodes) Chief Complaint: Follow Up INTERVAL HISTORY History of Present Illness The patient is a 79-year-old woman with a history of chronic kidney disease (CKD), obstructive sleep apnea (FRIEDA), gastroesophageal reflux disease (GERD), hypertension, atrial tachycardia, low back pain with sciatica, vats wedge resection of the lung with granulomatous disease (unspecified), and STEMI status post PCI. She presents to the rheumatology clinic for follow-up of Sjogren's disease and osteopenia. She was last seen in the clinic on 12/2023, at which time the plan was to continue conservative management for her Sjogren's and get annual Sjogren's labs, with plans to review her bone density history. She is due for a repeat bone density test in 01/2025. Since her last visit, she followed up with urology for microscopic hematuria, experienced an ankle injury without fracture, and reportedly had a STEMI at an outside facility while on vacation. She followed up with cardiology for her STEMI and is status post PCI with stent placement. Additionally, she followed up with pulmonology for lung nodules, with a plan for a repeat CT scan. Today she reports no recent fractures. She experiences dryness, which she manages with lotions and a cream prescribed by Dr. Clark. She reports no fevers. She has lost approximately 12 pounds since her surgery, attributing this to pain medication and a lack of appetite. Her weight has stabilized around 169 to 171 pounds. She reports no abdominal pain, blood in urine or stool. She sought dermatological consultation at [facility] due to rashes on her back and chest, initially suspected to be lupus. However, extensive blood tests ruled out this diagnosis. The rash persists, characterized by itching and pain before resolving and transforming into another form. Biopsies were taken from her chest and back, results not available for review. She experiences shortness of breath, which her engine dispatcher attributes to Brilinta. She has two more weeks on Brilinta before switching to Plavix to see if this helps. She reports red, hot, and swollen joints in her finger and thumb, which she manages by keeping warm. Topical treatments have been ineffective. The symptoms fluctuate with the weather. She uses Tylenol Extra Strength but only takes one tablet as two tablets cause insomnia. She previously used Advil before her kidney condition, which made her hyperactive. MEDICATIONS - Current: Brilinta - Current: Tylenol - Past: Advil RHEUMATOLOGIC HISTORY Terri is RF negative - 12 (01/20/2024). Her most recent CHINMAY was positive (07/01/2022). HISTORY OF PRESENT ILLNESS 1. Sjogren's disease with manifestations of positive CHINMAY, positive SSA, sicca symptoms 2. CKD 3. FRIEDA 4. GERD 5. Hypertension 6. Atrial tachycardia 7. Left lower lung nodule status post biopsy complicated by pneumothorax resulting in VATS wedge resection demonstrating necrotizing granulomatous inflammation without fungal disease, follows with pulmonology 8. CAD status post PCI 2023 9. Osteopenia without elevated FRAX Workup: 06/2022: CHINMAY 1: 160 SSA >8.0 Otherwise negative NEELAM ESR 41 CRP 1.3 Normal SPEP Normal CK Normal TSH Negative RF Negative Lyme Normal C3, C4 01/07/2023 DEXA: Lowest T-score -1.4 lumbar spine, FRAX 10% major, 1.8% hip Terri Burciaga is a 77 year old White female with a history of CKD, FRIEDA, GERD, hypertension, atrial tachycardia, low back pain with sciatica, osteopenia who presents to rheumatology clinic for evaluation of Sjogren's. Chart review reveals she was evaluated by PCP AMAN 07/01/2022 at which point she described polyarthralgia. Rheumatologic labs were drawn which demonstrated CHINMAY 1: 160, ESR 41, CRP 1.3, SSA greater than 8.0, normal C3 and C4, normal SPEP, CK 29, normal TSH. She was sent to rheumatology for evaluation of Sjogren's. No further work-up was done into her inflammatory markers. Today she presents to clinic alone. She states that she has a long history of back pain with right-sided sciatica. She has been doing physical therapy with minimal improvement. Unfortunately she took a fall a few months ago and landed on her bottom which has worsened her pain in the right hip. She also describes bilateral first CMC pain and bilateral fifth DIP pain with bony osteophytes. She has morning stiffness in the hands lasting a few minutes. She sometimes has knee pain but has never had injections. Rheumatologic review of systems notable for 22 pound unintentional weight loss over the past 4 months due to decreased appetite. She wonders if this is secondary to her tramadol. She has had years worth of jaw pain with jaw claudication secondary to TMJ. She gets intermittent sharp left jain pain. She has no visual changes, tongue claudication. She has dry eye for the past 6 to 7 years using [id number]-bqh-puvawko eyedrops a few times a day. She has dry mouth with difficulty swallowing. She has constipation. She describes constant postsurgical pain in her left chest from her wedge resection. Her fingers turn white in the cold. She had 1 episode of photo sensitive rash 01/2021 described as red and itchy on her chest and arms. She has poor sleep and is noncompliant with her CPAP. She has easy fatigue and brain fog. She denies fevers, night sweats, history of uveitis, sores in her nose or mouth, malar rash, cough, nausea, vomiting, blood in her urine or stool, numbness/tingling. Pain Evaluation 08/25/2023 06/08/2024 07/26/2024 08/09/2024 09/12/2024 Pain Evaluation Pain Score 7 8 1 9 7 Location Flank-Right Foot-Right Groin Hand-Right -- Location Comment L shoulder blade Description Aching;Stabbing Sore Sore Dull;Pulsating -- Duration (#) 4 1 8 1 Duration (Timeframe) Weeks Days Hours Weeks Frequency Continuous Continuous Intermittent Continuous Continuous Intervention Medication;Splinting -- PATIENT-ENTERED DATA PROMIS Assessments No data to display RAPID 3 [place]by Activities of Daily Living No Data Dress self? - Get in and out of bed? - Walk outdoors? - Wash and dry body? - Get in and out of car? - RAPID 3 Disease Activity Weighed Score Levels: 0 - 1: Near Remission 1.3 - 2.0: Low Severity 2.3 - 4.0: Moderate Severity 4.3 - 10.0: High Severity No data to display ROS RHEUMATOLOGY REVIEW OF SYSTEMS Complete ROS (HEENT, respiratory, cardiology, GI, , skin, psych, hematology, endocrine, neuro, musculoskeletal) negative except as noted in HPI. HISTORIES Past medical, surgical, family, and social history reviewed and notable changes since last visit include: Noted in HPI MEDICATIONS Current Outpatient Medications Medication Sig rosuvastatin (CRESTOR) 10 mg tablet Take 1 tablet by mouth daily at bedtime. ticagrelor (BRILINTA) 90 mg tablet Take 1 tablet by mouth two times a day. carvedilol (COREG) 6.25 mg tablet Take 1 tablet by mouth every 12 hours. acetaminophen (TYLENOL EXTRA STRENGTH) 500 mg tablet Take 500 mg by mouth every 8 hours as needed for pain. aspirin 81 mg chewable tablet Take 81 mg by mouth once daily. traMADol (ULTRAM) 50 mg tablet Take 50 mg by mouth every 6 hours as needed for pain. losartan (COZAAR) 100 mg tablet Take 1 tablet by mouth once daily. xwzfg-[id number]-7-pco-aig-ckrwfqd-ast (MAXIMUM RED KRILL OMEGA-3) 589-26-47-45 mg cap Take 1 tablet by mouth once daily. nitroglycerin sublingual (NITROSTAT) 0.4 mg SL tablet Dissolve 1 tablet under the tongue every 5 minutes as needed for chest pain. coenzyme Q10 (CO Q-10) 100 mg cap capsule Take 100 mg by mouth once daily. Azelastine HCl (OPTIVAR) 0.05 % ophthalmic solution Use 1 Drop in both eyes twice daily. cyclobenzaprine (FLEXERIL) 5 mg tablet Take 1 tablet by mouth three times daily as needed. Magnesium 200 mg tab Take 1 tablet by mouth once daily. esomeprazole (NEXIUM) 20 mg capsule Take 1 capsule by mouth DAILY (6 AM). diphenhydrAMINE HCl 12.5 mg chewable tablet Take 12.5 mg by mouth at bedtime as needed. ferrous sulfate (SLOW FE ORAL) Take by mouth once daily. iv contrast (will be provided with radiology test) CT Urogram WO/W Inject, intravenously, once for 1 dose.No IV access, insert saline lock prior to the beginning of sedation, infusion, injection of imaging exam. Discontinue saline lock post exam. If Pt. has a central line or IVAD, may access for administration according to line specific nursing protocol. Once exam is complete flush line and de-access according to line specific nursing protocol in the CT contrast administration guidelines link. ALLERGIES ALLERGIES Allergen Reactions Cigarette Smoke Shortness of Breath Gabapentin Intolerance Couldn't walk straight or control her muscles. Adhesive Tape (Deynaira* Itching Aleve [Naproxen Sod* GI Upset Ativan [Lorazepam] Intolerance depression Cats Lopressor [Metoprol* Mental Status Change Suicidal ideation Nickel Rash Norvasc [Amlodipine* Swelling Swelling to feet and ankles Sulfa (Sulfonamide * Intolerance severe headache Vioxx [Rofecoxib] GI Upset PHYSICAL EXAM VITAL SIGNS: BP 119/78 Pulse 64 Ht 4' 11 (1.50m) Wt 171 lb 15.3 oz (78.0kg) SpO2 97% BMI 34.71 kg/(m^2). GENERAL: Alert and oriented, appears a stated age. In no acute distress. EYES: Anicteric sclerae, no conjunctival injection HENT: Normocephalic, atraumatic NECK: No mass or asymmetry. No lymphadenopathy RESPIRATORY: Normal respiratory effort. Clear to auscultation bilaterally CARDIOVASCULAR: Regular in rate and rhythm without murmurs, rubs, or gallops ABDOMEN: Soft, nontender, nondistended NEUROLOGIC: No gross focal neurologic deficits. Cranial nerves II-XII grossly intact. SKIN: No rash, thickening, nodules, discoloration. Normal nails. MSK: Normal range of motion, no deformities, no swelling, and no tenderness in the hands, wrists, elbows, shoulders, spine, hips, knees, ankles, feet except as noted below: Heberden's and Pantera's nodes Tender left third DIP and right first CMC Squaring of CMC's No stigmata of erosive disease LABS Reviewed in [facility], notable for: Latest Ref Rng & Units 08/24/2024 09/08/2024 10/03/2024 11/23/2024 CBC WBC 3.70 - 11.00 k/uL 7.08 5.39 5.82 7.72 Hemoglobin 11.5 - 15.5 g/dL 11.2 10.9 11.5 13.1 Hematocrit 36.0 - 46.0 % 35.5 34.7 35.8 42.1 Platelet Count 150 - 400 k/uL 179 219 173 205 Abs Neut (ANC) 1.45 - 7.50 k/uL 4.75 3.40 3.89 5.15 Abs Lymph 1.00 - 4.00 k/uL 0.97 1.13 1.09 1.63 Latest Ref Rng & Units 01/20/2024 08/13/2024 10/03/2024 11/23/2024 CMP Sodium 136 - 144 mmol/L 139 141 139 141 Potassium 3.7 - 5.1 mmol/L 4.2 4.4 4.4 4.2 Chloride 98 - 107 mmol/L 102 106 106 104 CO2 22 - 30 mmol/L 23 23 24 23 Glucose 74 - 99 mg/dL 100 117 100 91 BUN 7 - 21 mg/dL 29 24 24 22 Creatinine 0.58 - 0.96 mg/dL 1.77 1.38 1.33 1.17 Calcium 8.5 - 10.2 mg/dL 9.4 9.9 9.4 9.7 AST 13 - 35 U/L 13 16 ALT 7 - 38 U/L 10 11 Alkaline Phosphatase 34 - 123 U/L 85 76 Latest Ref Rng & Units 07/01/2022 Uric Acid Uric Acid 2.5 - 6.6 mg/dL 4.1 Latest Ref Rng & Units 06/08/2023 08/17/2023 01/20/2024 08/13/2024 ESR, WSR WSR 0 - 20 mm/hr 38 31 47 52 Latest Ref Rng & Units 07/01/2022 06/08/2023 01/20/2024 08/13/2024 CRP CRP <0.9 mg/dL 1.3 0.7 1.3 0.5 Latest Ref Rng & Units 07/07/2022 C3, C4 C3 86 - 166 mg/dL 145 C4 13 - 46 mg/dL 35 Latest Ref Rng & Units 03/21/2021 07/07/2022 08/13/2024 CK CK 42 - 196 U/L 49 29 25 Latest Ref Rng & Units 07/01/2022 01/20/2024 RF and CCP Rheumatoid Factor <16 IU/mL 15 12 Latest Ref Rng & Units 07/14/2013 Hepatitis Screen Hep A Ab, IgM NEGAT Negative Hep B Core Ab, IgM NEGAT Negative HBsAg NEGAT Negative Latest Ref Rng & Units 12/24/2020 12/28/2020 07/26/2021 07/01/2022 Antibodies CHINMAY Negative Positive CHINMAY Titer 1:160 CHINMAY Pattern Nuclear coarse speckled DNA Antibody w/Confirmation <30 IU/mL <12 Anti-Sm <1.0 AI <0.2 Sm Antibody Negative Negative Ribosomal MAILROOM PERSONNEL Ab <1.0 AI <0.2 Ribosomal MAILROOM PERSONNEL Qualitative Negative Negative Chromatin Ab <1.0 AI <0.2 Chromatin Ab Qual Negative Negative SSA Antibody Qual Negative Positive Anti-SSA <1.0 AI >8.0 Anti-SSB <1.0 AI <0.2 MAILROOM PERSONNEL Antibody QUAL Negative Negative Scleroderma Ab Qual Negative Negative Scl-70 Abs, EIA <1.0 AI <0.2 Centromere Ab <1.0 AI <0.2 CENTROMERE AB QUAL Negative Negative KELY-1 ANTIBODY, IGG <1.0 AI <0.2 KELY 1 ANTIBODY QUAL Negative Negative PT Sec 9.7 - 13.0 sec 10.2 10.1 10.3 PT INR 0.9 - 1.3 0.9 1.0 1.0 APTT 23.0 - 32.4 sec 27.5 Latest Ref Rng & Units 11/06/2023 01/20/2024 02/22/2024 09/12/2024 Urinalysis Protein, Urine Negative 1+ 1+ PROTEIN UA (POCT) Negative mg/dL Trace 100 RBC, Urine 0-2 /HPF >20 /HPF >20 /HPF IMAGING Reviewed in [facility], notable for: No new relevant imaging IMPRESSIONS Diagnoses: (M35.00) Sjogren's syndrome without extraglandular involvement (HCC) (primary encounter diagnosis) (M85.80) Osteopenia, unspecified location (R21) Rash and nonspecific skin eruption (R06.09) GUERRA (dyspnea on exertion) ASSESSMENT AND PLAN Assessment & Plan 1. Sjogren's disease: Stable. She reports persistent dryness and uses lotions for relief. She has experienced a weight loss of about 12 pounds since her surgery, likely due to pain medication and decreased appetite during her illness, has since stabilized. She has no new symptoms such as fevers or unintentional weight changes suggestive of malignancy. - Annual Sjogren's labs will be ordered. 2. Shortness of breath. She reports shortness of breath, which her engine dispatcher reportedly attributes to Brilinta. She will switch to Plavix in two weeks. The potential involvement of Sjogren's in lung issues will be monitored. - A CT scan is planned to monitor lung nodules per pulmonology. - Monitor for improvement after switching from Brilinta to Plavix. 3. Rash. She has a recurring rash on her back and chest, initially suspected to be lupus but ruled out by extensive blood tests. Biopsies were taken from her chest and back. - Review records from [facility] 4. Osteopenia. A bone density test is due after 01/07/2025, to be conducted on the same machine in [place]. - Consider physical therapy focused on balance and strength for fall prevention. 5. Healthcare maintenance: - Follow-up with PCP to be sure she is up-to-date with age-appropriate cancer screening Follow-up - Follow up in 6 months - Will call with results Current Immunizations Reviewed on 09/23/2022 Name Date influenza (HD-IIV3) vaccine 12/04/2016, 11/14/2014 influenza vaccine 10/24/2013, 12/05/2011, 09/04/2009, 09/08/2008, 09/07/2008, 09/17/2007, 09/03/2005 pneumococcal (PCV13) vaccine 07/22/2018 pneumococcal (PPV23) vaccine 05/14/2016, 09/21/2010 tetanus diphtheria pertussis (Tdap) vaccine 04/23/2007 zoster (ZVL) vaccine 05/14/2016 Orders this visit: Office Visit on 12/15/24 DXA-AXIAL SKELETON BD DXA TRABECULAR BONE SCORE (TBS) PROTEIN ELECT RND UR W/INTERP PROTEIN / CREATININE RATIO KAPPA/IRVING,FREE,SER PROTEIN ELECTROPHORESIS SERUM W/INTERP C4 COMPLEMENT C3 COMPLEMENT IMMUNOFIXATION SCREEN, SERUM MONOCLONAL PROT UR W/INTERP URINALYSIS, WITH MICROSCOPIC VITAMIN D 25 HYDROXY MAGNESIUM PHOSPHORUS INORGANIC C TELOPEPTIDE, BETA Return in about 6 months (around 06/14/2025). Medical Decision Making: Problems: Moderate: 2+ stable chronic illnesses Data: Unique test(s) ordered: 3+ Independent interpretation of test from other physician/QHCP Medical Decision Making Level: 4 - Moderate This note was partially generated with the assistance of Ensenda voice recognition software. An attempt was made to correct any dictation errors however there may be some incorrect words, spellings, and punctuation. Maren Rhodes MD Rheumatology Date: December 15, 2024 Time: 2:00 PM documented in this encounter [facility] 12-09-2024 History of Present illness Narrative Images from the original note were not included. . Respiratory [place] Note Patient name: Terri Burciaga PCP: Andre Santana MD CC: Lung nodules HPI: Terri Burciaga 79 year old female former 30 pack year smoker, quitting more than 40 years ago with PMH significant for FRIEDA, Sjogren's, HTN, and LLL lung nodule. She had low level uptake on PET scan but nodule had increased in size. S/p CT guided biopsy that was non-diagnostic and complicated by PTX requiring hospitalization but no chest tube. Subsequent VATS wedge resection showed necrotizing granulomatous inflammation and negative fungal stains. She has had persistent post thoracotomy pain. CT surveillance has shown scarring in the area of her previous wedge resection and several 5 mm nodules. She continues to have intermittent postthoracotomy pain. Currently having issues with shortness of breath since starting Brilinta. Her history since last office visit is notable for an MRI in July. She was vacationing in [place]. She had it PCI to her RCA with post course complicated by femoral artery pseudoaneurysm requiring surgical repair. Her local engine dispatcher plans on changing her anticoagulation to Plavix due to her significant shortness of breath. PAST MEDICAL HISTORY Diagnosis Date Arrhythmia Benign neoplasm of colon CAD (coronary artery disease) 07/2024 s/p stent Calculus of kidney Esophageal reflux Esophagitis, unspecified Feeling of incomplete bladder emptying 09/23/2022 Granulomatous disease (HCC) Heart attack (HCC) 06/18/2024 History of recurrent UTIs HYPERLIPIDEMIA NEC/NOS 03/16/2009 HYPERTENSION NOS 03/10/2008 Mental disorder FRIEDA on CPAP Osteopenia BMD 12/12/2011 Post-thoracotomy pain Sciatica Sjogren syndrome (HCC) ALLERGIES Allergen Reactions Cigarette Smoke Shortness of Breath Gabapentin Intolerance Couldn't walk straight or control her muscles. Adhesive Tape (Deyanira* Itching Aleve [Naproxen Sod* GI Upset Ativan [Lorazepam] Intolerance depression Cats Lopressor [Metoprol* Mental Status Change Suicidal ideation Nickel Rash Norvasc [Amlodipine* Swelling Swelling to feet and ankles Sulfa (Sulfonamide * Intolerance severe headache Vioxx [Rofecoxib] GI Upset rosuvastatin (CRESTOR) 10 mg tablet Take 1 tablet by mouth daily at bedtime. ticagrelor (BRILINTA) 90 mg tablet Take 1 tablet by mouth two times a day. carvedilol (COREG) 6.25 mg tablet Take 1 tablet by mouth every 12 hours. ferrous sulfate (SLOW FE ORAL) Take by mouth once daily. acetaminophen (TYLENOL EXTRA STRENGTH) 500 mg tablet Take 500 mg by mouth every 8 hours as needed for pain. aspirin 81 mg chewable tablet Take 81 mg by mouth once daily. traMADol (ULTRAM) 50 mg tablet Take 50 mg by mouth every 6 hours as needed for pain. losartan (COZAAR) 100 mg tablet Take 1 tablet by mouth once daily. hffqt-mp-3-vuo-gim-yymshel-ast (MAXIMUM RED KRILL OMEGA-3) 013-86-14-45 mg cap Take 1 tablet by mouth once daily. nitroglycerin sublingual (NITROSTAT) 0.4 mg SL tablet Dissolve 1 tablet under the tongue every 5 minutes as needed for chest pain. coenzyme Q10 (CO Q-10) 100 mg cap capsule Take 100 mg by mouth once daily. Azelastine HCl (OPTIVAR) 0.05 % ophthalmic solution Use 1 Drop in both eyes twice daily. cyclobenzaprine (FLEXERIL) 5 mg tablet Take 1 tablet by mouth three times daily as needed. Magnesium 200 mg tab Take 1 tablet by mouth once daily. esomeprazole (NEXIUM) 20 mg capsule Take 1 capsule by mouth DAILY (6 AM). diphenhydrAMINE HCl 12.5 mg chewable tablet Take 12.5 mg by mouth at bedtime as needed. iv contrast (will be provided with radiology test) CT Urogram WO/W Inject, intravenously, once for 1 dose.No IV access, insert saline lock prior to the beginning of sedation, infusion, injection of imaging exam. Discontinue saline lock post exam. If Pt. has a central line or IVAD, may access for administration according to line specific nursing protocol. Once exam is complete flush line and de-access according to line specific nursing protocol in the CT contrast administration guidelines link. Social History Tobacco Use Smoking status: Former Current packs/day: 0.00 Average packs/day: 1.5 packs/day for 20.0 years (30.0 ttl pk-yrs) Types: Cigarettes Start date: 11/09/1960 Quit date: 11/09/1980 Years since quittin.1 Smokeless tobacco: Never Tobacco comments: up to 3 PPD Vaping Use Vaping status: Never Used Substance Use Topics Alcohol use: Not Currently Drug use: Never FAMILY HISTORY Problem Relation Age of Onset Hypertension Mother other (macular degeneration) Mother Coronary Artery Disease Father Stroke Father other (CABG) Father Coronary Artery Disease Sister Coronary Artery Disease Brother Ischemic Heart Disease Paternal Grandfather other (Peripheral Vascular Disease) Sister Hypertension Sister Hypertension Sister Hypertension Brother Hypertension Son PAST SURGICAL HISTORY Procedure Laterality Date ABDOMINAL SURGERY HX APPENDECTOMY HX COLONOSCOPY COLONOSCOPY FLX DX W/COLLJ SPEC WHEN PFRMD 01/11/2016 Colonoscopy COLSC FLX W/RMVL OF TUMOR POLYP LESION SNARE TQ 02/05/2012 repeat 5 years EGD 02/05/2012 ESOPHAGOGASTRODUODENOSCOPY TRANSORAL DIAGNOSTIC 10/16/2008 EGD ESOPHAGOGASTRODUODENOSCOPY TRANSORAL DIAGNOSTIC 01/11/2016 EGD LYSIS OF ADHESIONS SALPINX/OVARY x6 OOPHORECTOMY, PART/TOTAL UNILAT/BILAT bilateral salpingectomy and left oophorectomy PAST SURGICAL HISTORY OF 07/2024 Repair of femoral pseudoaneurysm PAST SURGICAL HISTORY OF 07/2024 PCI RCA REM LESION TRUNK,ARM,LEG > 4.0CM 07/11/2022 REMV LUNG,WEDGE RESECTION Left 07/30/2021 VATS wedge resection of left lower lobe wedge SKIN EXCISION 07/11/2022 anterior chest wall & left torso TOTAL ABDOMINAL HYSTERECT W/WO RMVL TUBE OVARY 11/09/1969 endometriosis, change in ovary, right oophorectomy PMH, Social history, family history and surgical history reviewed and updated in EMR REVIEW OF SYSTEMS: CONSTITUTIONAL: No fevers, chills, nightsweats, unintended weight loss HEENT: Positive nasal congestion/sinus symptoms, rhinitis. CARDIOVASCULAR: No chest pain, ankle edema. Dyspnea and palpitations PULM: No cough, wheezing or sputum production NEURO: No balance problems, peripheral weakness/paresthesias or numbness of concern. MUSC-SKEL: Arthritis pain PSY: No concerns regarding depression, anxiety INTEGUMENTARY: Bruising PHYSICAL EXAMINATION: BP 136/84 Pulse 64 Resp 14 Ht 4' 11 (1.50m) Wt 175 lb (79.4kg) SpO2 99% BMI 35.33 kg/(m^2). General Appearance: Obese female, NAD. Skin: Skin color, texture, turgor normal, no suspicious rashes or lesions. Head: Normocephalic, no masses, lesions, tenderness or abnormalities. Lungs: Not labored, normal to percussion, crackles on the left. Heart: Regular rate and rhythm, no murmurs. Extremities: No clubbing Assessment/Plan: 1. Lung nodules -Patient is overdue for her yearly CT of the chest. Chest CT ordered 2. Granulomatous disease -No active evidence fungal infection 3. Shortness of breath -Dyspnea most likely related to her Brilinta. If she has persistent shortness of breath after discontinuing the Brilinta and changing to Plavix, will need pulmonary function testing Jacquie Evans MD [facility] [place] documented in this encounter [facility] 12-09-2024 Note [facility] 11-28-2024 Telephone encounter Note Order placed [facility] 11-28-2024 Miscellaneous Notes Order placed Pt called and is notified of providers results and instructions. Pt voices understanding. Pt states she would be willing to see a thyroid specialist. Please call and advise Pt once order is in. Shira Clemons RN Thyroid us shows the nodule that previously was biopsied is slightly larger. Would she be willing to see thyroid specialist to see if anything more is needed? documented in this encounter [facility] 11-28-2024 Telephone encounter Note Pt called and is notified of providers results and instructions. Pt voices understanding. Pt states she would be willing to see a thyroid specialist. Please call and advise Pt once order is in. Shira Clemons, RN [facility] 11-28-2024 Telephone encounter Note Thyroid us shows the nodule that previously was biopsied is slightly larger. Would she be willing to see thyroid specialist to see if anything more is needed? [facility] 11-25-2024 Telephone encounter Note Patient was made aware of the results. Patient verbalizes understanding. Juliann Dietrich Ma [facility] 11-25-2024 Miscellaneous Notes Patient was made aware of the results. Patient verbalizes understanding. Juliann Dietrich Ma Let her know her labs are all ok. documented in this encounter [facility] 11-25-2024 Telephone encounter Note Let her know her labs are all ok. [facility] 11-23-2024 Note [facility] 11-23-2024 History of Present illness Narrative EKG Patient presents with: Follow Up HPI: Patient presents today for office visit for follow up. HLD: No myalgias. Follows with cardiology. Always with shortness of breath. Dr. Abarca feels could be related to the Brilinta. May be switching to plavix. Seeing cardiology in May. GERD: Symptoms controlled. HTN: Denies chest pain Dull constant headache behind her eyes. No dizziness. Palpitations over the last 3 weeks. No dizziness or lightheadedness. Lasts for a few seconds. No syncope No swelling Due to see pulmonary. Needs set up. Rheum appt is coming up. MEDICATIONS: Current Outpatient Medications Medication Sig rosuvastatin (CRESTOR) 10 mg tablet Take 1 tablet by mouth daily at bedtime. ticagrelor (BRILINTA) 90 mg tablet Take 1 tablet by mouth two times a day. carvedilol (COREG) 6.25 mg tablet Take 1 tablet by mouth every 12 hours. ferrous sulfate (SLOW FE ORAL) Take by mouth. acetaminophen (TYLENOL EXTRA STRENGTH) 500 mg tablet Take 500 mg by mouth every 8 hours as needed for pain. aspirin 81 mg chewable tablet Take 81 mg by mouth once daily. traMADol (ULTRAM) 50 mg tablet Take 50 mg by mouth every 6 hours as needed for pain. losartan (COZAAR) 100 mg tablet Take 1 tablet by mouth once daily. stvcw-gc-2-eip-rsr-nvmdelh-ast (MAXIMUM RED KRILL OMEGA-3) 498-49-95-45 mg cap Take 1 tablet by mouth once daily. nitroglycerin sublingual (NITROSTAT) 0.4 mg SL tablet Dissolve 1 tablet under the tongue every 5 minutes as needed for chest pain. coenzyme Q10 (CO Q-10) 100 mg cap capsule Take 100 mg by mouth once daily. iv contrast (will be provided with radiology test) CT Urogram WO/W Inject, intravenously, once for 1 dose.No IV access, insert saline lock prior to the beginning of sedation, infusion, injection of imaging exam. Discontinue saline lock post exam. If Pt. has a central line or IVAD, may access for administration according to line specific nursing protocol. Once exam is complete flush line and de-access according to line specific nursing protocol in the CT contrast administration guidelines link. Azelastine HCl (OPTIVAR) 0.05 % ophthalmic solution Use 1 Drop in both eyes twice daily. cyclobenzaprine (FLEXERIL) 5 mg tablet Take 1 tablet by mouth three times daily as needed. Magnesium 200 mg tab Take 1 tablet by mouth once daily. esomeprazole (NEXIUM) 20 mg capsule Take 1 capsule by mouth DAILY (6 AM). diphenhydrAMINE HCl 12.5 mg chewable tablet Take 12.5 mg by mouth at bedtime as needed. No current facility-administered medications for this visit. ALLERGIES: ALLERGIES Allergen Reactions Cigarette Smoke Shortness of Breath Gabapentin Intolerance Couldn't walk straight or control her muscles. Adhesive Tape (Deyanira* Itching Aleve [Naproxen Sod* GI Upset Ativan [Lorazepam] Intolerance depression Cats Lopressor [Metoprol* Mental Status Change Suicidal ideation Nickel Rash Norvasc [Amlodipine* Swelling Swelling to feet and ankles Sulfa (Sulfonamide * Intolerance severe headache Vioxx [Rofecoxib] GI Upset PAST MEDICAL HISTORY Diagnosis Date Arrhythmia Benign neoplasm of colon Calculus of kidney Chest pain, unspecified non cardiac Esophageal reflux Esophagitis, unspecified Feeling of incomplete bladder emptying 09/23/2022 Granulomatous disease (HCC) History of recurrent UTIs HYPERLIPIDEMIA NEC/NOS 03/16/2009 HYPERTENSION NOS 03/10/2008 Mental disorder FRIEDA on CPAP Osteopenia BMD 12/12/2011 Sciatica Sjogren syndrome (HCC) PAST SURGICAL HISTORY Procedure Laterality Date ABDOMINAL SURGERY HX APPENDECTOMY HX COLONOSCOPY COLONOSCOPY FLX DX W/COLLJ SPEC WHEN PFRMD 01/11/2016 Colonoscopy COLSC FLX W/RMVL OF TUMOR POLYP LESION SNARE TQ 02/05/2012 repeat 5 years EGD 02/05/2012 ESOPHAGOGASTRODUODENOSCOPY TRANSORAL DIAGNOSTIC 10/16/2008 EGD ESOPHAGOGASTRODUODENOSCOPY TRANSORAL DIAGNOSTIC 01/11/2016 EGD LYSIS OF ADHESIONS SALPINX/OVARY x6 OOPHORECTOMY, PART/TOTAL UNILAT/BILAT bilateral salpingectomy and left oophorectomy REM LESION TRUNK,ARM,LEG > 4.0CM 07/11/2022 REMV LUNG,WEDGE RESECTION Left 07/30/2021 VATS wedge resection of left lower lobe wedge SKIN EXCISION 07/11/2022 anterior chest wall & left torso TOTAL ABDOMINAL HYSTERECT W/WO RMVL TUBE OVARY 11/09/1969 endometriosis, change in ovary, right oophorectomy VAGINAL HYSTERECTOMY FAMILY HISTORY Problem Relation Age of Onset Hypertension Mother other (macular degeneration) Mother Coronary Artery Disease Father Stroke Father other (CABG) Father Coronary Artery Disease Sister Coronary Artery Disease Brother Ischemic Heart Disease Paternal Grandfather other (Peripheral Vascular Disease) Sister Hypertension Sister Hypertension Sister Hypertension Brother Hypertension Son Social History Tobacco Use Smoking status: Former Current packs/day: 0.00 Average packs/day: 1.5 packs/day for 20.0 years (30.0 ttl pk-yrs) Types: Cigarettes Start date: 11/09/1960 Quit date: 11/09/1980 Years since quittin.0 Smokeless tobacco: Never Tobacco comments: up to 3 PPD Vaping Use Vaping status: Never Used Substance Use Topics Alcohol use: Not Currently Drug use: Never Reviewed current medications, allergies, past medical history, surgical history, family history and social history today. REVIEW OF SYSTEMS No gi or gu issues. All other reviewed and negative other than HPI. HEALTH MAINTENANCE: Reviewed health maintenance issues today and recommended the following in detail. BP Controlled (<130/80) Never done Advance Directive Discussion due on 11/09/2024 VITALS: BP 138/81 Pulse 62 Ht 149.9 cm (4' 11) Wt 78 kg (172 lb) BMI 34.74 kg/m Last 4 Encounter Wt Readings: Date: Wt: 10/03/2024 78.9 kg (174 lb) 09/15/2024 78.8 kg (173 lb 11.6 oz) 08/12/2024 78.1 kg (172 lb 3.2 oz) 08/09/2024 78.9 kg (173 lb 15.1 oz) PHYSICAL EXAMINATION: General appearance: Well appearing, alert, in no acute distress, well-hydrated, well nourished. Skin: Skin color, texture, turgor normal, no suspicious rashes or lesions Head: Normocephalic, no masses, lesions, tenderness or abnormalities Lungs: Lungs clear to auscultation. No wheezing, rhonchi, rales Heart: RRR without murmur, gallop, or rubs. No ectopy Abdomen: Normal abdominal exam, Abdomen soft, non-tender. Bowel sounds normal. No masses, organomegaly Extremities: No deformities, edema, skin discoloration, clubbing or cyanosis. Good capillary refill. Musculoskeletal: No joint swelling, deformity, or tenderness ASSESSMENT/PLAN: 1. Primary hypertension - ICD9: 401.9, ICD10: I10 (primary diagnosis) - Controlled - Continue current medications - MAGNESIUM - COMPLETE BLOOD COUNT AND DIFFERENTIAL 2. Mixed hyperlipidemia - ICD9: 272.2, ICD10: E78.2 - Controlled - Counseled on healthy diet and regular exercise 3. Atrial tachycardia (HCC) - ICD9: 427.89, ICD10: I47.19 - given hx and palpitations. Do zio. Check labs. - OUTSIDE VENDOR CARDIAC OUTPATIENT EXTENDED RHYTHM RECORDING (WITHOUT TELEMETRY) 4. 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 He is considering switching to plavix 5. Granulomatous lung disease (HCC) - ICD9: 518.89, ICD10: J84.10 - reminded to follow up. - CONSULT TO PULM/CRITICAL CARE 6. Thyroid nodule - ICD9: 241.0, ICD10: E04.1 - reminded to get us. - THYROID STIMULATING HORMONE 7. Stage 3b chronic kidney disease (HCC) - ICD9: 585.3, ICD10: N18.32 - BASIC METABOLIC PANEL 8. Sjoegren syndrome (HCC) - ICD9: 710.2, ICD10: M35.00 - per rheum. 9. Prediabetes - ICD9: 790.29, ICD10: R73.03 -- follow labs. 10. Microscopic hematuria - ICD9: 599.72, ICD10: R31.29 - has seen urology 11. Granulomatous disease (HCC) - ICD9: 288.1, ICD10: D71 - per pulmonary 12. Palpitations - ICD9: 785.1, ICD10: R00.2 - check labs and do zio - ECG COMPLETE-sinus liliana with old inferior changes. - OUTSIDE VENDOR CARDIAC OUTPATIENT EXTENDED RHYTHM RECORDING (WITHOUT TELEMETRY) Andre Santana MD documented in this encounter [facility] 11-23-2024 Note [facility] 11-08-2024 Telephone encounter Note Requesting 90 days. Patient has been identified by name and date of : Yes, Patient phones for refill(s): Requested Prescriptions Pending Prescriptions Disp Refills rosuvastatin (CRESTOR) 10 mg tablet 30 tablet 0 Sig: Take 1 tablet by mouth daily at bedtime. Date of last office visit in primary care: 09/15/2024 Date of next office visit in primary care: 11/23/2024 Please advise. Thank you. Angelika Young. [facility] 11-08-2024 Miscellaneous Notes Requesting 90 days. Patient has been identified by name and date of : Yes, Patient phones for refill(s): Requested Prescriptions Pending Prescriptions Disp Refills rosuvastatin (CRESTOR) 10 mg tablet 30 tablet 0 Sig: Take 1 tablet by mouth daily at bedtime. Date of last office visit in primary care: 09/15/2024 Date of next office visit in primary care: 11/23/2024 Please advise. Thank you. Angelika Young. documented in this encounter [facility] 10-05-2024 Telephone encounter Note Phoned patient and given provider's message below with verbalized understanding. [facility] 10-05-2024 Miscellaneous Notes Phoned patient and given provider's message below with verbalized understanding. Can please let patient know that I received her labwork, which is stable. Her blood count improved. Kidney function is stable. Trang Philippe APRN.CNP documented in this encounter [facility] 10-04-2024 Telephone encounter Note Can please let patient know that I received her labwork, which is stable. Her blood count improved. Kidney function is stable. Trang Philippe APRN.CNP [facility] Work Phone: 10-03-2024 Note [facility] 10-03-2024 History of Present illness Narrative Images from the original note were not included. Darshan Abarca MD Interventional Cardiology [address] [place], [place] [id number] Chief Complaint Patient presents with: Follow Up HISTORY OF PRESENT ILLNESS: Ms. Burciaga is a 78 year old female seen in my office for assessment management of coronary artery disease acute ST segment elevation myocardial infarction at [place] required drug-eluting stent she had the cardiac authorization via the femoral artery she had [facility] drug-eluting stent 3 oh by 26 in the right coronary artery her cardiac catheterization (pseudoaneurysm required surgical repair Is doing well from the cardiac point to be asymptomatic denies chest pain but may be slightly short of breath may be related to Brilinta Cardiac Risk Factors age (male over 45, female over 55), hyperlipidemia, obesity, hypertension, family history of CAD PAST MEDICAL HISTORY Diagnosis Date Arrhythmia Benign neoplasm of colon Calculus of kidney Chest pain, unspecified non cardiac Esophageal reflux Esophagitis, unspecified Feeling of incomplete bladder emptying 09/23/2022 Granulomatous disease (HCC) History of recurrent UTIs HYPERLIPIDEMIA NEC/NOS 03/16/2009 HYPERTENSION NOS 03/10/2008 Mental disorder FRIEDA on CPAP Osteopenia BMD 12/12/2011 Sciatica Sjogren syndrome (HCC) PAST SURGICAL HISTORY Procedure Laterality Date ABDOMINAL SURGERY HX APPENDECTOMY HX COLONOSCOPY COLONOSCOPY FLX DX W/COLLJ SPEC WHEN PFRMD 01/11/2016 Colonoscopy COLSC FLX W/RMVL OF TUMOR POLYP LESION SNARE TQ 02/05/2012 repeat 5 years EGD 02/05/2012 ESOPHAGOGASTRODUODENOSCOPY TRANSORAL DIAGNOSTIC 10/16/2008 EGD ESOPHAGOGASTRODUODENOSCOPY TRANSORAL DIAGNOSTIC 01/11/2016 EGD LYSIS OF ADHESIONS SALPINX/OVARY x6 OOPHORECTOMY, PART/TOTAL UNILAT/BILAT bilateral salpingectomy and left oophorectomy REM LESION TRUNK,ARM,LEG > 4.0CM 07/11/2022 REMV LUNG,WEDGE RESECTION Left 07/30/2021 VATS wedge resection of left lower lobe wedge SKIN EXCISION 07/11/2022 anterior chest wall & left torso TOTAL ABDOMINAL HYSTERECT W/WO RMVL TUBE OVARY 11/09/1969 endometriosis, change in ovary, right oophorectomy VAGINAL HYSTERECTOMY FAMILY HISTORY Problem Relation Age of Onset Hypertension Mother other (macular degeneration) Mother Coronary Artery Disease Father Stroke Father other (CABG) Father Coronary Artery Disease Sister Coronary Artery Disease Brother Ischemic Heart Disease Paternal Grandfather other (Peripheral Vascular Disease) Sister Hypertension Sister Hypertension Sister Hypertension Brother Hypertension Son Social History Tobacco Use Smoking status: Former Current packs/day: 0.00 Average packs/day: 1.5 packs/day for 20.0 years (30.0 ttl pk-yrs) Types: Cigarettes Start date: 11/09/1960 Quit date: 11/09/1980 Years since quittin.9 Smokeless tobacco: Never Tobacco comments: up to 3 PPD Vaping Use Vaping status: Never Used Substance Use Topics Alcohol use: Not Currently Drug use: Never ALLERGIES Allergen Reactions Cigarette Smoke Shortness of Breath Gabapentin Intolerance Couldn't walk straight or control her muscles. Adhesive Tape (Deyanira* Itching Aleve [Naproxen Sod* GI Upset Ativan [Lorazepam] Intolerance depression Cats Lopressor [Metoprol* Mental Status Change Suicidal ideation Nickel Rash Norvasc [Amlodipine* Swelling Swelling to feet and ankles Sulfa (Sulfonamide * Intolerance severe headache Vioxx [Rofecoxib] GI Upset Medications: Current Outpatient Medications Medication Sig Dispense Refill ticagrelor (BRILINTA) 90 mg tablet Take 1 tablet by mouth two times a day. 180 tablet 0 carvedilol (COREG) 6.25 mg tablet Take 1 tablet by mouth every 12 hours. 180 tablet 0 ferrous sulfate (SLOW FE ORAL) Take by mouth. rosuvastatin (CRESTOR) 10 mg tablet Take 1 tablet by mouth daily at bedtime. 30 tablet 0 acetaminophen (TYLENOL EXTRA STRENGTH) 500 mg tablet Take 500 mg by mouth every 8 hours as needed for pain. aspirin 81 mg chewable tablet Take 81 mg by mouth once daily. traMADol (ULTRAM) 50 mg tablet Take 50 mg by mouth every 6 hours as needed for pain. losartan (COZAAR) 100 mg tablet Take 1 tablet by mouth once daily. 90 tablet 3 beaza-nj-0-puy-ytf-ukdxzju-ast (MAXIMUM RED KRILL OMEGA-3) [id number] mg cap Take 1 tablet by mouth once daily. 90 capsule 3 nitroglycerin sublingual (NITROSTAT) 0.4 mg SL tablet Dissolve 1 tablet under the tongue every 5 minutes as needed for chest pain. 100 tablet 1 coenzyme Q10 (CO Q-10) 100 mg cap capsule Take 100 mg by mouth once daily. Azelastine HCl (OPTIVAR) 0.05 % ophthalmic solution Use 1 Drop in both eyes twice daily. 3 mL 2 cyclobenzaprine (FLEXERIL) 5 mg tablet Take 1 tablet by mouth three times daily as needed. 30 tablet 2 Magnesium 200 mg tab Take 1 tablet by mouth once daily. esomeprazole (NEXIUM) 20 mg capsule Take 1 capsule by mouth DAILY (6 AM). diphenhydrAMINE HCl 12.5 mg chewable tablet Take 12.5 mg by mouth at bedtime as needed. iv contrast (will be provided with radiology test) CT Urogram WO/W Inject, intravenously, once for 1 dose.No IV access, insert saline lock prior to the beginning of sedation, infusion, injection of imaging exam. Discontinue saline lock post exam. If Pt. has a central line or IVAD, may access for administration according to line specific nursing protocol. Once exam is complete flush line and de-access according to line specific nursing protocol in the CT contrast administration guidelines link. 1 Each 0 No current facility-administered medications for this visit. Review of Systems Constitutional: Negative for chills, diaphoresis, fever, malaise/fatigue and weight loss. HENT: Negative for congestion, ear discharge, ear pain, hearing loss, nosebleeds, sinus pain, sore throat and tinnitus. Eyes: Negative for blurred vision, double vision, photophobia, pain, discharge and redness. Respiratory: Negative for cough, hemoptysis, sputum production, shortness of breath, wheezing and stridor. Cardiovascular: Negative for chest pain, palpitations, orthopnea, claudication, leg swelling and PND. Gastrointestinal: Negative for abdominal pain, blood in stool, constipation, diarrhea, heartburn, melena, nausea and vomiting. Genitourinary: Negative for dysuria, flank pain, frequency, hematuria and urgency. Musculoskeletal: Negative for back pain, falls, joint pain, myalgias and neck pain. Skin: Negative for itching and rash. Neurological: Negative for dizziness, tingling, tremors, sensory change, speech change, focal weakness, seizures, loss of consciousness, weakness and headaches. Endo/Heme/Allergies: Negative for environmental allergies and polydipsia. Does not bruise/bleed easily. Psychiatric/Behavioral: Negative for depression, hallucinations, memory loss, substance abuse and suicidal ideas. The patient is not nervous/anxious and does not have insomnia. Physical Examination: Vitals:BP 122/80 Pulse 71 Wt 174 lb (78.9kg) SpO2 99% BP w/Orthostatic Vitals Date and Time Orthostatic BP Orthostatic Pulse BP Pulse BP Position BP Site BP Cuff Size 10/03/24 1426 -- -- 122/80 71 -- -- -- Last 2 Encounter Wt Readings: Date: Wt: 10/03/2024 78.9 kg (174 lb) 09/15/2024 78.8 kg (173 lb 11.6 oz) Physical Exam Constitutional: General: She is not in acute distress. Appearance: She is not diaphoretic. HENT: Head: Normocephalic and atraumatic. Right Ear: External ear normal. Left Ear: External ear normal. Nose: Nose normal. Mouth/Throat: Pharynx: Oropharynx is clear. Eyes: General: Right eye: No discharge. Left eye: No discharge. Conjunctiva/sclera: Conjunctivae normal. Pupils: Pupils are equal, round, and reactive to light. Cardiovascular: Rate and Rhythm: Normal rate and regular rhythm. Heart sounds: Normal heart sounds, S1 normal and S2 normal. No murmur heard. No friction rub. No gallop. No S3 or S4 sounds. Pulmonary: Effort: Pulmonary effort is normal. No respiratory distress. Breath sounds: Normal breath sounds. No wheezing or rales. Chest: Chest wall: No tenderness. Abdominal: General: Abdomen is flat. Musculoskeletal: General: Normal range of motion. Cervical back: Normal range of motion and neck supple. Skin: General: Skin is warm and dry. Neurological: Mental Status: She is alert and oriented to person, place, and time. Psychiatric: Mood and Affect: Mood normal. Thought Content: Thought content normal. Pertinent Labs: CBC: Hemoglobin (g/dL) Date Value 09/08/2024 10.9 10/16/2021 14.6 Hematocrit (%) Date Value 09/08/2024 34.7 10/16/2021 46.9 WBC (k/uL) Date Value 09/08/2024 5.39 10/16/2021 6.22 Platelet Count (k/uL) Date Value 09/08/2024 219 10/16/2021 214 BMP: Glucose (mg/dL) Date Value 08/13/2024 117 10/16/2021 93 Potassium (mmol/L) Date Value 08/13/2024 4.4 10/16/2021 4.0 Sodium (mmol/L) Date Value 08/13/2024 141 10/16/2021 138 Chloride (mmol/L) Date Value 08/13/2024 106 10/16/2021 102 CO2 (mmol/L) Date Value 08/13/2024 23 10/16/2021 25 Creatinine (mg/dL) Date Value 08/13/2024 1.38 10/16/2021 1.05 BUN (mg/dL) Date Value 08/13/2024 24 10/16/2021 16 Anion Gap (mmol/L) Date Value 08/13/2024 12 10/16/2021 11 Calcium (mg/dL) Date Value 10/16/2021 9.5 Calcium, Total (mg/dL) Date Value 08/13/2024 9.9 INR: Lipid Profile: Cholesterol, Total Date Value Ref Range Status 08/13/2024 122 <200 mg/dL Final Comment: <200 mg/dL, Desirable 200-239 mg/dL, Borderline high >239 mg/dL, High HDL Cholesterol Date Value Ref Range Status 08/13/2024 41 >39 mg/dL Final Comment: 40-59 mg/dL, Acceptable >59 mg/dL, High: Negative risk factor for coronary heart disease <40 mg/dL, Low: Positive risk factor for coronary heart disease LDL Cholesterol Date Value Ref Range Status 08/13/2024 64 <100 mg/dL Final Comment: <100 mg/dL, Optimal 100-129 mg/dL, Near optimal/above optimal 130-159 mg/dL, Borderline high 160-189 mg/dL, High >189 mg/dL, Very high Secondary prevention optimal LDL Cholesterol levels are recommended to be < 70 mg/dL Triglyceride Date Value Ref Range Status 08/13/2024 85 <150 mg/dL Final Comment: <150 mg/dL, Normal 150-199 mg/dL, Borderline high 200-499 mg/dL, High >499 mg/dL, Very high Hemoglobin A1C: No results found for: HGBA1C TSH: No results found for: TSHREFL Prior Cardiac Testing none Assessment and Plan: 78 years old female patient status post drug-eluting stent to the right coronary artery ASSESSMENT/PLAN: 1. Mixed hyperlipidemia - ICD9: 272.2, ICD10: E78.2 (primary diagnosis) - Controlled - Continue current medications - Counseled on healthy diet and regular exercise - CARDIAC REHAB II OUTPT ([place]) 2. Primary hypertension - ICD9: 401.9, ICD10: I10 - Controlled - Continue current medications - Recommend home blood pressure monitoring, to bring results to next visit - Encouraged sodium restriction, DASH or Mediterranean diet - Recommend regular aerobic exercise - CARDIAC REHAB II OUTPT ([place], [place]) 3. 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 - ICD9: 414.01, ICD10: I25.10 Status post drug-eluting stent to the RCA Moderate disease in the circumflex Medical therapy - CARDIAC REHAB II OUTPT ([place], [place]) Darshan Abarca MD Follow up plannin months Electronically signed by Darshan Abarca MD on October 03, 2024, 2:45 PM The above note was partially created using a dictation recognition software. A reasonable attempt has been made to correct any errors. documented in this encounter [facility] 09-26-2024 Telephone encounter Note Prescription Refill Information The patient has been identified by name and date of : Yes Caregiver verified no other encounters exist for this prescription request: Yes Caregiver confirmed with patient/requestor that no other refills are due, in the near future, with this provider at this time: Yes The last office visit in the department: 09-15-24 Does the patient have a future office visit with this provider/department: Yes 11-23-24 Requested Prescriptions Pending Prescriptions Disp Refills ticagrelor (BRILINTA) 90 mg tablet 180 tablet 0 Sig: Take 1 tablet by mouth two times a day. carvedilol (COREG) 6.25 mg tablet 180 tablet 0 Sig: Take 1 tablet by mouth every 12 hours. Bev Aguilar September 26, 2024 11:31 AM [facility] 09-26-2024 Miscellaneous Notes Prescription Refill Information The patient has been identified by name and date of : Yes Caregiver verified no other encounters exist for this prescription request: Yes Caregiver confirmed with patient/requestor that no other refills are due, in the near future, with this provider at this time: Yes The last office visit in the department: 09-15-24 Does the patient have a future office visit with this provider/department: Yes 11-23-24 Requested Prescriptions Pending Prescriptions Disp Refills ticagrelor (BRILINTA) 90 mg tablet 180 tablet 0 Sig: Take 1 tablet by mouth two times a day. carvedilol (COREG) 6.25 mg tablet 180 tablet 0 Sig: Take 1 tablet by mouth every 12 hours. Bev Aguilar September 26, 2024 11:31 AM documented in this encounter [facility] 09-20-2024 Hospital Discharge instructions Yuli Uribe PA-C - 09/20/2024 9:32 PM EST Do not remove this bandage for 24 hours. After which you can remove the large bandage overlying. Do not remove the small gauze piece that is touching your skin unless it falls off on its own. This has a medication in it that we will keep the area from bleeding. It will fall off on its own when it is ready. The following attachments cannot be sent through Care Everywhere.Biopsy (Bangladeshi)documented in this encounter [facility] Work Phone: 09-20-2024 Emergency department Note Images from the original note were not included. HPI Chief Complaint Patient presents with Skin Problem Pt states she had a biopsy yesterday and is taking brilinta, had her biopsy bandage changed today by her daughter and she realized it was still bleeding when she got home. Biopsy site still oozing small amount of blood under bandage Patient presents with concern for biopsy site bleeding. States she had a biopsy on her back that was done yesterday. She was instructed to leave the bandage on for 24 hours and remove it. States when she remove the bandage the area will not stop bleeding. She is on Brilinta. Patient states that she cannot reach the area that needs bandaged and she was not sure what to do. She denies any pain. History provided by: Patient Patient History No past medical history on file. No past surgical history on file. No family history on file. Social History Tobacco Use Smoking status: Not on file Smokeless tobacco: Not on file Substance Use Topics Alcohol use: Not on file Drug use: Not on file Physical Exam ED Triage Vitals [09/20/242020] Temperature Heart Rate Respirations BP 36.8 C (98.3 F) 70 20 (!) 187/85 Pulse Ox Temp src Heart Rate Source Patient Position 97 % -- -- -- BP Location FiO2 (%) -- -- Physical Exam Vitals and nursing note reviewed. Constitutional: General: She is not in acute distress. Appearance: Normal appearance. She is normal weight. She is not ill-appearing or toxic-appearing. HENT: Nose: Nose normal. Mouth/Throat: Mouth: Mucous membranes are moist. Eyes: General: No scleral icterus. Conjunctiva/sclera: Conjunctivae normal. Skin: General: Skin is warm. Capillary Refill: Capillary refill takes less than 2 seconds. Neurological: General: No focal deficit present. Mental Status: She is alert and oriented to person, place, and time. Cranial Nerves: No cranial nerve deficit. Sensory: No sensory deficit. Motor: No weakness. Gait: Gait normal. Psychiatric: Attention and Perception: Attention and perception normal. Mood and Affect: Mood and affect normal. Speech: Speech normal. Behavior: Behavior normal. Behavior is cooperative. Thought Content: Thought content normal. Cognition and Memory: Cognition and memory normal. Judgment: Judgment normal. ED Course & MDM Diagnoses as of 09/20/242133 Visit for wound check Anticoagulant long-term use No data recorded Medical Decision Making Patient presents with concern for biopsy site bleeding. States she had a biopsy on her back that was done yesterday. She was instructed to leave the bandage on for 24 hours and remove it. States when she remove the bandage the area will not stop bleeding. She is on Brilinta. Patient states that she cannot reach the area that needs bandaged and she was not sure what to do. She denies any pain. Ddx: Stroke, bleeding, hypercoagulable state, other Surgicel applied to the area with a bandage. Bandage was replaced. No more bleeding was observed. Patient was observed in the department for a period of time. She is instructed to leave this bandage on for at least 24 hours and then may remove the larger bandage but keeping the Surgicel in place. Patient encouraged to follow-up with her specialist within the next few days for follow-up. Patient discharged home in improved stable condition Procedure Procedures Yuli Uribe PA-C 09/20/242133 Medical Decision Making Patient was put up for discharge. The patient had been treated with Surgicel and nursing staff noted that the patient had blood through the dressing and continued to bleed from the biopsy site on her back. When I removed the bandage and Surgicel there was bleeding from the biopsy site on the patient's back. The biopsy site was then wiped with sterile 4 x 4 and I placed silver nitrate stick into the biopsy wound and hemostasis was obtained. The patient tolerated procedure well. Surgicel and bandage was placed over the surgical biopsy site and patient was monitored in the ED to make sure that there was good hemostasis prior to discharging the patient home. Emergency Medicine Transition of Care Note. I received Terri Burciaga in signout from PACO Uribe.. Please see the previous ED provider note for all HPI, PE and MDM up to the time of signout at 21:56. This is in addition to the primary record. In brief Terri Burciaga is an 78 y.o. female presenting for Chief Complaint Patient presents with Skin Problem Pt states she had a biopsy yesterday and is taking brilinta, had her biopsy bandage changed today by her daughter and she realized it was still bleeding when she got home. Biopsy site still oozing small amount of blood under bandage At the time of signout we were awaiting: Discharge. Final diagnoses: [Z51.89] Visit for wound check [Z79.01] Anticoagulant long-term use Procedure Procedures DO Michi Lemus DO 09/20/242220 documented in this encounter [facility] Work Phone: 09-20-2024 Physician Emergency department Note Images from the original note were not included. HPI Chief Complaint Patient presents with Skin Problem Pt states she had a biopsy yesterday and is taking brilinta, had her biopsy bandage changed today by her daughter and she realized it was still bleeding when she got home. Biopsy site still oozing small amount of blood under bandage Patient presents with concern for biopsy site bleeding. States she had a biopsy on her back that was done yesterday. She was instructed to leave the bandage on for 24 hours and remove it. States when she remove the bandage the area will not stop bleeding. She is on Brilinta. Patient states that she cannot reach the area that needs bandaged and she was not sure what to do. She denies any pain. History provided by: Patient Patient History No past medical history on file. No past surgical history on file. No family history on file. Social History Tobacco Use Smoking status: Not on file Smokeless tobacco: Not on file Substance Use Topics Alcohol use: Not on file Drug use: Not on file Physical Exam ED Triage Vitals [09/20/242020] Temperature Heart Rate Respirations BP 36.8 C (98.3 F) 70 20 (!) 187/85 Pulse Ox Temp src Heart Rate Source Patient Position 97 % -- -- -- BP Location FiO2 (%) -- -- Physical Exam Vitals and nursing note reviewed. Constitutional: General: She is not in acute distress. Appearance: Normal appearance. She is normal weight. She is not ill-appearing or toxic-appearing. HENT: Nose: Nose normal. Mouth/Throat: Mouth: Mucous membranes are moist. Eyes: General: No scleral icterus. Conjunctiva/sclera: Conjunctivae normal. Skin: General: Skin is warm. Capillary Refill: Capillary refill takes less than 2 seconds. Neurological: General: No focal deficit present. Mental Status: She is alert and oriented to person, place, and time. Cranial Nerves: No cranial nerve deficit. Sensory: No sensory deficit. Motor: No weakness. Gait: Gait normal. Psychiatric: Attention and Perception: Attention and perception normal. Mood and Affect: Mood and affect normal. Speech: Speech normal. Behavior: Behavior normal. Behavior is cooperative. Thought Content: Thought content normal. Cognition and Memory: Cognition and memory normal. Judgment: Judgment normal. ED Course & MDM Diagnoses as of 09/20/242133 Visit for wound check Anticoagulant long-term use No data recorded Medical Decision Making Patient presents with concern for biopsy site bleeding. States she had a biopsy on her back that was done yesterday. She was instructed to leave the bandage on for 24 hours and remove it. States when she remove the bandage the area will not stop bleeding. She is on Brilinta. Patient states that she cannot reach the area that needs bandaged and she was not sure what to do. She denies any pain. Ddx: Stroke, bleeding, hypercoagulable state, other Surgicel applied to the area with a bandage. Bandage was replaced. No more bleeding was observed. Patient was observed in the department for a period of time. She is instructed to leave this bandage on for at least 24 hours and then may remove the larger bandage but keeping the Surgicel in place. Patient encouraged to follow-up with her specialist within the next few days for follow-up. Patient discharged home in improved stable condition Procedure Procedures Yuli Uribe PA-C 09/20/242133 [facility] Work Phone: 09-20-2024 Physician Emergency department Note Medical Decision Making Patient was put up for discharge. The patient had been treated with Surgicel and nursing staff noted that the patient had blood through the dressing and continued to bleed from the biopsy site on her back. When I removed the bandage and Surgicel there was bleeding from the biopsy site on the patient's back. The biopsy site was then wiped with sterile 4 x 4 and I placed silver nitrate stick into the biopsy wound and hemostasis was obtained. The patient tolerated procedure well. Surgicel and bandage was placed over the surgical biopsy site and patient was monitored in the ED to make sure that there was good hemostasis prior to discharging the patient home. Emergency Medicine Transition of Care Note. I received Terri Burciaga in signout from PACO Uribe.. Please see the previous ED provider note for all HPI, PE and MDM up to the time of signout at 21:56. This is in addition to the primary record. In brief Terri Burciaga is an 78 y.o. female presenting for Chief Complaint Patient presents with Skin Problem Pt states she had a biopsy yesterday and is taking brilinta, had her biopsy bandage changed today by her daughter and she realized it was still bleeding when she got home. Biopsy site still oozing small amount of blood under bandage At the time of signout we were awaiting: Discharge. Final diagnoses: [Z51.89] Visit for wound check [Z79.01] Anticoagulant long-term use Procedure Procedures DO Michi Lemus DO 09/20/242220 [facility] Work Phone: 09-16-2024 Telephone encounter Note Left detailed message with results/provider instruction on secure identified voicemail. Jordy lÁvarez LPN [facility] 09-16-2024 Miscellaneous Notes Left detailed message with results/provider instruction on secure identified voicemail. Jordy Álvarez LPN Can please let patient know that her urine culture was negative for any infection. She continues to show the microscopic blood in her urine. If she notices any helio bleeding again, she should let someone know. Trang Philippe APRN.CNP documented in this encounter [facility] 09-16-2024 Telephone encounter Note Can please let patient know that her urine culture was negative for any infection. She continues to show the microscopic blood in her urine. If she notices any helio bleeding again, she should let someone know. Trang Philippe APRN.CNP [facility] Work Phone: 09-15-2024 Note [facility] 09-15-2024 History of Present illness Narrative Manual Readin/70 Pulse: 68 Reason for blood pressure check - Last BP elevated Patient is: Taking medication as prescribed Yes Took medication today Yes Experiencing side effects Yes Pt is alert and oriented. Pt has been identified by name and birthdate: Yes Chest pain: No. Dyspnea: No. Edema: No. Palpitations: No. Syncope: No. Headache: No. Dizziness: No. Allergies reviewed: Yes Latex allergy: no. Medication - prescribed and OTC reviewed and updated: Yes Do you need any prescription refills prior to your next visit: No Health Maintenance: Reviewed and up to date Patient was advised to continue current medications and follow up with Dr Santana on 11/23/23. She is agreeable with plan. Reviewed chart and patient with supervising provider, KIET Sanchez MA September 15, 2024 2:13 PM documented in this encounter [facility] 09-12-2024 Instructions Trang Philippe APRN.CNP - 09/12/2024 7:36 PM EST Go home and take your carvedilol. Continue to check home BPs. Recheck in 2-3 days and bring home cuff with you. Recheck labs in 1 week. documented in this encounter [facility] 09-12-2024 Note [facility] 09-12-2024 History of Present illness Narrative This is a 78 year old female who presents today with: Patient presents with: Recheck: 4 week follow up HISTORY OF PRESENT ILLNESS: Terri Burciaga is a 78 year old female. Patient presents with: Recheck: 4 week follow up Pt presents today for recheck. Had some labwork completed. Was mildly anemic. She recently was [place] and had an PR. She had a cardiac cath w/ stent. 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 Does have some indigestion. Watching diet. No hematochezia/melena. Refers that she had pink-tinged urine at one point (resolved now). -- but wasn't sure if it was urine or vaginal. She has hx of hyster. Does have vaginal dryness/atrophy that she uses replens for. She denies urinary symptoms and she has a hx of microscopic hematuria w/ cystoscope. She is on brillenta. Admits that she has been bruising easily since on antiplatelet. She is hypertensive today. She refers that it is related to anxiety/stress, as there was some scheduling confusion w/ her appt today. She has been controlled. No chest pain, sob. Monitors home BPs at least daily and reports controlled. PAST MEDICAL HISTORY: PAST MEDICAL HISTORY Diagnosis Date Arrhythmia Benign neoplasm of colon Calculus of kidney Chest pain, unspecified non cardiac Esophageal reflux Esophagitis, unspecified Feeling of incomplete bladder emptying 09/23/2022 Granulomatous disease (HCC) History of recurrent UTIs HYPERLIPIDEMIA NEC/NOS 03/16/2009 HYPERTENSION NOS 03/10/2008 Mental disorder FRIEDA on CPAP Osteopenia BMD 12/12/2011 Sciatica Sjogren syndrome (HCC) PAST SURGICAL HISTORY Procedure Laterality Date ABDOMINAL SURGERY HX APPENDECTOMY HX COLONOSCOPY COLONOSCOPY FLX DX W/COLLJ SPEC WHEN PFRMD 01/11/2016 Colonoscopy COLSC FLX W/RMVL OF TUMOR POLYP LESION SNARE TQ 02/05/2012 repeat 5 years EGD 02/05/2012 ESOPHAGOGASTRODUODENOSCOPY TRANSORAL DIAGNOSTIC 10/16/2008 EGD ESOPHAGOGASTRODUODENOSCOPY TRANSORAL DIAGNOSTIC 01/11/2016 EGD LYSIS OF ADHESIONS SALPINX/OVARY x6 OOPHORECTOMY, PART/TOTAL UNILAT/BILAT bilateral salpingectomy and left oophorectomy REM LESION TRUNK,ARM,LEG > 4.0CM 07/11/2022 REMV LUNG,WEDGE RESECTION Left 07/30/2021 VATS wedge resection of left lower lobe wedge SKIN EXCISION 07/11/2022 anterior chest wall & left torso TOTAL ABDOMINAL HYSTERECT W/WO RMVL TUBE OVARY 11/09/1969 endometriosis, change in ovary, right oophorectomy VAGINAL HYSTERECTOMY ALLERGIES Cigarette Smoke, Gabapentin, Adhesive Tape (Rosins), Aleve [Naproxen Sodium], Ativan [Lorazepam], Cats, Lopressor [Metoprolol Tartrate], Nickel, Norvasc [Amlodipine Besylate], Sulfa (Sulfonamide Antibiotics), and Vioxx [Rofecoxib] MEDICATIONS Current Outpatient Medications Medication Sig rosuvastatin (CRESTOR) 10 mg tablet Take 1 tablet by mouth daily at bedtime. ticagrelor (BRILINTA) 90 mg tablet Take 1 tablet by mouth two times a day. acetaminophen (TYLENOL EXTRA STRENGTH) 500 mg tablet Take 500 mg by mouth every 8 hours as needed for pain. aspirin 81 mg chewable tablet Take 81 mg by mouth once daily. traMADol (ULTRAM) 50 mg tablet Take 50 mg by mouth every 6 hours as needed for pain. carvedilol (COREG) 6.25 mg tablet Take 1 tablet by mouth every 12 hours. KLOR-CON M20 20 mEq tablet Take 1 tablet by mouth every afternoon. losartan (COZAAR) 100 mg tablet Take 1 tablet by mouth once daily. yysxz-bx-7-vqj-dre-uypcres-ast (MAXIMUM RED KRILL OMEGA-3) 360-96-21-45 mg cap Take 1 tablet by mouth once daily. nitroglycerin sublingual (NITROSTAT) 0.4 mg SL tablet Dissolve 1 tablet under the tongue every 5 minutes as needed for chest pain. coenzyme Q10 (CO Q-10) 100 mg cap capsule Take 100 mg by mouth once daily. iv contrast (will be provided with radiology test) CT Urogram WO/W Inject, intravenously, once for 1 dose.No IV access, insert saline lock prior to the beginning of sedation, infusion, injection of imaging exam. Discontinue saline lock post exam. If Pt. has a central line or IVAD, may access for administration according to line specific nursing protocol. Once exam is complete flush line and de-access according to line specific nursing protocol in the CT contrast administration guidelines link. (Patient not taking: Reported on 08/09/2024) Azelastine HCl (OPTIVAR) 0.05 % ophthalmic solution Use 1 Drop in both eyes twice daily. cyclobenzaprine (FLEXERIL) 5 mg tablet Take 1 tablet by mouth three times daily as needed. Magnesium 200 mg tab Take 1 tablet by mouth once daily. esomeprazole (NEXIUM) 20 mg capsule Take 1 capsule by mouth DAILY (6 AM). diphenhydrAMINE HCl 12.5 mg chewable tablet Take 12.5 mg by mouth at bedtime as needed. No current facility-administered medications for this visit. FAMILY HISTORY Problem Relation Age of Onset Hypertension Mother other (macular degeneration) Mother Coronary Artery Disease Father Stroke Father other (CABG) Father Coronary Artery Disease Sister Coronary Artery Disease Brother Ischemic Heart Disease Paternal Grandfather other (Peripheral Vascular Disease) Sister Hypertension Sister Hypertension Sister Hypertension Brother Hypertension Son Social History Tobacco Use Smoking status: Former Current packs/day: 0.00 Average packs/day: 1.5 packs/day for 20.0 years (30.0 ttl pk-yrs) Types: Cigarettes Start date: 11/09/1960 Quit date: 11/09/1980 Years since quittin.8 Smokeless tobacco: Never Tobacco comments: up to 3 PPD Vaping Use Vaping status: Never Used Substance Use Topics Alcohol use: Not Currently Drug use: Never EXAM: BP 175/90 Pulse 74 Resp 16 SpO2 97% PHYSICAL EXAM: General Appearance: Well appearing, alert, in no acute distress, well-hydrated, well nourished.. Skin: Skin color, texture, turgor normal, no suspicious rashes or lesions. Head: Normocephalic, no masses, lesions, tenderness or abnormalities. Eyes: Anicteric sclera. Extraocular movements are intact. . Lungs: Lungs clear to auscultation. No wheezing, rhonchi, rales.. Heart: RRR without murmur, gallop, or rubs. No ectopy. Extremities: No deformities, edema, skin discoloration, clubbing or cyanosis. Good capillary refill. . Neurologic: Gait normal. ASSESSMENT/PLAN: 1. Essential hypertension with goal blood pressure less than 140/90 - ICD9: 401.9, ICD10: I10 (primary diagnosis) Has been controlled. She is soon due for pm carvedilol dose. She is encouraged to go home and take dose. - BASIC METABOLIC PANEL Continue to check home BPs. Will have patient return in a couple of days for a recheck of the blood pressure. She is advised to bring her home BP cuff with her. 2. Anemia, unspecified type - ICD9: 285.9, ICD10: D64.9 Recheck: - COMPLETE BLOOD COUNT AND DIFFERENTIAL 3. Fatigue, unspecified type - ICD9: 780.79, ICD10: R53.83 Recheck: - COMPLETE BLOOD COUNT AND DIFFERENTIAL 4. Gross hematuria - ICD9: 599.71, ICD10: R31.0 Resolved now, but will go ahead and check urine. Will check urine to r/o infection. - URINALYSIS, WITH MICROSCOPIC - URINE CULTURE Discussed treatment plan and patient voices understanding. Patient's questions answered appropriately. Medications and potential side effects were discussed and patient voices understanding. Return to the office as scheduled or as needed for worsening/no improvement. Trang Philippe APRN.KIET documented in this encounter [facility] 08-29-2024 Telephone encounter Note Pt notified. She verbalized understanding. Jordy Álvarez LPN [facility] 08-29-2024 Miscellaneous Notes Pt notified. She verbalized understanding. Jordy Álvarez LPN Can please let patient know that I received her repeat labs. It continues to show a mild anemia, but is stable. The other labs and stool were normal. It looks like she has an office visit in 2 weeks. Lets plan on checking it again at that time to ensure that it is stable and not worsening. I went ahead and put the order in, so if she wants to do it at the end of next week she can; otherwise, we can just get it when she is in for her appt (she does not need to fast). Trang Philippe APRN.KIET documented in this encounter [facility] 08-29-2024 Telephone encounter Note Can please let patient know that I received her repeat labs. It continues to show a mild anemia, but is stable. The other labs and stool were normal. It looks like she has an office visit in 2 weeks. Lets plan on checking it again at that time to ensure that it is stable and not worsening. I went ahead and put the order in, so if she wants to do it at the end of next week she can; otherwise, we can just get it when she is in for her appt (she does not need to fast). Trang Philippe APRN.KIET [facility] 08-24-2024 Telephone encounter Note Prescription Refill Information The patient has been identified by name and date of : Yes Caregiver verified no other encounters exist for this prescription request: Yes Caregiver confirmed with patient/requestor that no other refills are due, in the near future, with this provider at this time: Yes The last office visit in the department: 08/12/24 Does the patient have a future office visit with this provider/department: Yes Requested Prescriptions Pending Prescriptions Disp Refills rosuvastatin (CRESTOR) 10 mg tablet 30 tablet 0 Sig: Take 1 tablet by mouth daily at bedtime. ticagrelor (BRILINTA) 90 mg tablet 60 tablet 0 Sig: Take 1 tablet by mouth two times a day. Venessa Price LPN August 24, 2024 11:05 AM [facility] 08-24-2024 Miscellaneous Notes Prescription Refill Information The patient has been identified by name and date of : Yes Caregiver verified no other encounters exist for this prescription request: Yes Caregiver confirmed with patient/requestor that no other refills are due, in the near future, with this provider at this time: Yes The last office visit in the department: 08/12/24 Does the patient have a future office visit with this provider/department: Yes Requested Prescriptions Pending Prescriptions Disp Refills rosuvastatin (CRESTOR) 10 mg tablet 30 tablet 0 Sig: Take 1 tablet by mouth daily at bedtime. ticagrelor (BRILINTA) 90 mg tablet 60 tablet 0 Sig: Take 1 tablet by mouth two times a day. Venessa Price LPN August 24, 2024 11:05 AM documented in this encounter [facility] 08-17-2024 Telephone encounter Note Pt called and is notified of providers results and instructions. Pt voices understanding. Printed Pts labs for her to get from Medical Records. Shira Clemons RN [facility] 08-17-2024 Miscellaneous Notes Pt called and is notified of providers results and instructions. Pt voices understanding. Printed Pts labs for her to get from Medical Records. Shira Clemons RN Can please let patient know that we received her lab results. Overall, everything looks stable. She is mildly anemic. It could be related to her recent health events, but we should follow-up with this and ensure that it is stable/improving. I would like to get some repeat labwork, including an ifob. The orders are in. One of her inflammatory markers is a little elevated. (The other is normal). Again, this could still be from inflammation in her body from her recent events. Her cholesterol looks good!!!!! Her thyroid labs were normal. Her electrolytes were normal. Her kidney function is stable. documented in this encounter [facility] 08-16-2024 Telephone encounter Note Can please let patient know that we received her lab results. Overall, everything looks stable. She is mildly anemic. It could be related to her recent health events, but we should follow-up with this and ensure that it is stable/improving. I would like to get some repeat labwork, including an ifob. The orders are in. One of her inflammatory markers is a little elevated. (The other is normal). Again, this could still be from inflammation in her body from her recent events. Her cholesterol looks good!!!!! Her thyroid labs were normal. Her electrolytes were normal. Her kidney function is stable. [facility] 08-12-2024 Instructions Andre Santana MD - 08/12/2024 3:12 PM EDT Try roger or claritin as needed. documented in this encounter [facility] 08-12-2024 Note [facility] 08-12-2024 History of Present illness Narrative Patient presents with: Follow Up HPI: Patient presents today for office visit for follow up. Saw Sandrasanjay Holm on 07/18/24. Had acute STEMI while in [place] on 06/18/24. Had stent placement. Had bleed in right femoral artery and pseudoaneurysm. Went back into [facility] on 06/30/24 for repair. Now on Carvedilol 6.25 mg BID Brilinta 90 mg BID Crestor 10 mg daily In [place] they were not concerned. Has rash on chest, upper back and top backside of B/L arms since artery repair on 06/30/24. Nothing new. Does not involve lower extremities, hands,face,no issues with her neck. Describes the rash as painful and itchy. Has not tried any treatment. No changes in soaps, detergents Three new meds. C/o extreme fatigue since surgery. Tired all the time. States by about 2 o'clock in the afternoon she can't go anymore. Naps frequently. HTN: Continues on Losartan 100 mg daily Now on Coreg from hospital admission. Occasional chest pain. Shortness of breath most of the time. States sometimes she has a hard time finishing sentences because she has to catch her breath. Has been there more Lately with constant, dull headache. Denies dizziness. Occasional palpitations. Nothing new. Denies syncopal episodes. Denies edema. Had a fall on Thursday08/10/24. Was putting her shoes on and trying to balance on one leg and fell. Has some bruising to her right arm/wrist. Is overall ok. Seen by [facility] on 08/09/24 for some discoloration to her right wrist. Pain in pad of her right thumb and in her wrist. Pain is worse with movement. No fall or injury. Placed on medrol and kelflex for two days. Unsure if helping with rash but wrist is better. MEDICATIONS: Current Outpatient Medications Medication Sig cephALEXin (KEFLEX) 500 mg capsule Take 1 capsule by mouth four times daily for 5 days. methylPREDNISolone (MEDROL, JOAQUIN,) 4 mg Dose-Pack Follow dosing instructions, take with food. acetaminophen (TYLENOL EXTRA STRENGTH) 500 mg tablet Take 500 mg by mouth every 8 hours as needed for pain. aspirin 81 mg chewable tablet Take 81 mg by mouth once daily. traMADol (ULTRAM) 50 mg tablet Take 50 mg by mouth every 6 hours as needed for pain. rosuvastatin (CRESTOR) 10 mg tablet Take 10 mg by mouth daily at bedtime. carvedilol (COREG) 6.25 mg tablet Take 1 tablet by mouth every 12 hours. KLOR-CON M20 20 mEq tablet Take 1 tablet by mouth every afternoon. losartan (COZAAR) 100 mg tablet Take 1 tablet by mouth once daily. emlri-dd-3-pux-vwh-lntokrs-ast (MAXIMUM RED KRILL OMEGA-3) 048-06-39-45 mg cap Take 1 tablet by mouth once daily. nitroglycerin sublingual (NITROSTAT) 0.4 mg SL tablet Dissolve 1 tablet under the tongue every 5 minutes as needed for chest pain. ticagrelor (BRILINTA) 90 mg tablet Take 1 tablet by mouth two times a day. coenzyme Q10 (CO Q-10) 100 mg cap capsule Take 100 mg by mouth once daily. Azelastine HCl (OPTIVAR) 0.05 % ophthalmic solution Use 1 Drop in both eyes twice daily. cyclobenzaprine (FLEXERIL) 5 mg tablet Take 1 tablet by mouth three times daily as needed. Magnesium 200 mg tab Take 1 tablet by mouth once daily. esomeprazole (NEXIUM) 20 mg capsule Take 1 capsule by mouth DAILY (6 AM). diphenhydrAMINE HCl 12.5 mg chewable tablet Take 12.5 mg by mouth at bedtime as needed. iv contrast (will be provided with radiology test) CT Urogram WO/W Inject, intravenously, once for 1 dose.No IV access, insert saline lock prior to the beginning of sedation, infusion, injection of imaging exam. Discontinue saline lock post exam. If Pt. has a central line or IVAD, may access for administration according to line specific nursing protocol. Once exam is complete flush line and de-access according to line specific nursing protocol in the CT contrast administration guidelines link. (Patient not taking: Reported on 08/09/2024) No current facility-administered medications for this visit. ALLERGIES: ALLERGIES Allergen Reactions Cigarette Smoke Shortness of Breath Gabapentin Intolerance Couldn't walk straight or control her muscles. Adhesive Tape (Deyanira* Itching Aleve [Naproxen Sod* GI Upset Ativan [Lorazepam] Intolerance depression Cats Lopressor [Metoprol* Mental Status Change Suicidal ideation Nickel Rash Norvasc [Amlodipine* Swelling Swelling to feet and ankles Sulfa (Sulfonamide * Intolerance severe headache Vioxx [Rofecoxib] GI Upset PAST MEDICAL HISTORY Diagnosis Date Arrhythmia Benign neoplasm of colon Calculus of kidney Chest pain, unspecified non cardiac Esophageal reflux Esophagitis, unspecified Feeling of incomplete bladder emptying 09/23/2022 Granulomatous disease (HCC) History of recurrent UTIs HYPERLIPIDEMIA NEC/NOS 03/16/2009 HYPERTENSION NOS 03/10/2008 Mental disorder FRIEDA on CPAP Osteopenia BMD 12/12/2011 Sciatica Sjogren syndrome (HCC) PAST SURGICAL HISTORY Procedure Laterality Date ABDOMINAL SURGERY HX APPENDECTOMY HX COLONOSCOPY COLONOSCOPY FLX DX W/COLLJ SPEC WHEN PFRMD 01/11/2016 Colonoscopy COLSC FLX W/RMVL OF TUMOR POLYP LESION SNARE TQ 02/05/2012 repeat 5 years EGD 02/05/2012 ESOPHAGOGASTRODUODENOSCOPY TRANSORAL DIAGNOSTIC 10/16/2008 EGD ESOPHAGOGASTRODUODENOSCOPY TRANSORAL DIAGNOSTIC 01/11/2016 EGD LYSIS OF ADHESIONS SALPINX/OVARY x6 OOPHORECTOMY, PART/TOTAL UNILAT/BILAT bilateral salpingectomy and left oophorectomy REM LESION TRUNK,ARM,LEG > 4.0CM 07/11/2022 REMV LUNG,WEDGE RESECTION Left 07/30/2021 VATS wedge resection of left lower lobe wedge SKIN EXCISION 07/11/2022 anterior chest wall & left torso TOTAL ABDOMINAL HYSTERECT W/WO RMVL TUBE OVARY 11/09/1969 endometriosis, change in ovary, right oophorectomy VAGINAL HYSTERECTOMY FAMILY HISTORY Problem Relation Age of Onset Hypertension Mother other (macular degeneration) Mother Coronary Artery Disease Father Stroke Father other (CABG) Father Coronary Artery Disease Sister Coronary Artery Disease Brother Ischemic Heart Disease Paternal Grandfather other (Peripheral Vascular Disease) Sister Hypertension Sister Hypertension Sister Hypertension Brother Hypertension Son Social History Tobacco Use Smoking status: Former Current packs/day: 0.00 Average packs/day: 1.5 packs/day for 20.0 years (30.0 ttl pk-yrs) Types: Cigarettes Start date: 11/09/1960 Quit date: 11/09/1980 Years since quittin.7 Smokeless tobacco: Never Tobacco comments: up to 3 PPD Vaping Use Vaping status: Never Used Substance Use Topics Alcohol use: Not Currently Drug use: Never Reviewed current medications, allergies, past medical history, surgical history, family history and social history today. REVIEW OF SYSTEMS All other reviewed and negative other than HPI. HEALTH MAINTENANCE: Reviewed health maintenance issues today and recommended the following in detail. BP Controlled (<130/80) Never done DTaP,Tdap,Td Vaccine(2 - Td or Tdap) due on 04/23/2017 LDL Cholesterol due on 05/08/2023 Influenza Vaccine(1) due on 07/10/2024 Covid-19 Vaccine( season) Never done VITALS: BP 118/84 Pulse 80 Ht 149.9 cm (4' 11) Wt 78.1 kg (172 lb 3.2 oz) SpO2 98% BMI 34.78 kg/m Last 4 Encounter Wt Readings: Date: Wt: 08/09/2024 78.9 kg (173 lb 15.1 oz) 07/25/2024 77.6 kg (171 lb) 07/18/2024 78.5 kg (173 lb) 06/08/2024 82.5 kg (181 lb 14.1 oz) PHYSICAL EXAMINATION: General appearance: Well appearing, alert, in no acute distress, well-hydrated, well nourished. Skin:red rouch papular rash on her upper back. Slightly on front of upper chest. Few scattered areas on the hands. Lungs: Lungs clear to auscultation. No wheezing, rhonchi, rales Heart: RRR without murmur, gallop, or rubs. No ectopy Abdomen: Normal abdominal exam, Abdomen soft, non-tender. Bowel sounds normal. No masses, organomegaly Extremities: No deformities, edema, skin discoloration, clubbing or cyanosis. Good capillary refill. ASSESSMENT/PLAN: 1. Dermatitis - ICD9: 692.9, ICD10: L30.9 (primary diagnosis) - given location it could be something like a contact dermatitis. Drug reaction could be a possibility but is extremely localized which makes it very unusual. Just started on antibiotics and steroids so too early to tell if helps. Add otc antihistamine prn. Discussed risks and benefits of new medication with the patient. Advised them to call if any side effects or questions. Red flags for re-assessment reviewed with patient in detail. Close follow up. Reviewed diagnosis and treatment options in detail. Questions were answered. Patient expressed understanding of treatment plan. - CONSULT TO DERMATOLOGY - SEDIMENTATION RATE, WESTERGREN - C-REACTIVE PROTEIN 2. ST elevation myocardial infarction (STEMI) involving other coronary artery of inferior wall (HCC) - ICD9: 410.40, ICD10: I21.19 - stable. 3. Pseudoaneurysm (HCC) - ICD9: 442.9, ICD10: I72.9 - repaired. 4. Essential hypertension with goal blood pressure less than 140/90 - ICD9: 401.9, ICD10: I10 - Controlled - Continue current medications 5. Hypertension, essential - ICD9: 401.9, ICD10: I10 - MAGNESIUM 6. 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 - ICD9: 414.01, ICD10: I25.10 - stable. 7. Fatigue, unspecified type - ICD9: 780.79, ICD10: R53.83 - check labs. - THYROID STIMULATING HORMONE - T4/FTI/T4U 8. Mixed hyperlipidemia - ICD9: 272.2, ICD10: E78.2 - COMPLETE BLOOD COUNT AND DIFFERENTIAL - COMPREHENSIVE METABOLIC PANEL - LIPID PANEL BASIC - CREATINE KINASE/CK Andre Santana MD RTO in four to six weeks or prn documented in this encounter [facility] 08-10-2024 Telephone encounter Note Called patient and scheduled her an appt. [facility] 08-10-2024 Miscellaneous Notes Called patient and scheduled her an appt. Can't say that it is a very common thing that I have ever seen. Would need to see of us for something like that. Pt states she has a rash on her shoulders & upper back that started ~1 month ago. Rash itches, it is big bumps but not hives per pt. Pt was seen for same yest in [facility]. Pt states she was given keflex & a medrol dose pack, pt states [facility] was concerned with an infection. Pt is concerned she may be rejecting the stent that was placed after her heart attack on 06/18/24. Pt is also requesting a full lab workup. States she wants everything checked. Lanny Parks LPN documented in this encounter [facility] 08-10-2024 Telephone encounter Note Can't say that it is a very common thing that I have ever seen. Would need to see of us for something like that. [facility] 08-10-2024 Telephone encounter Note Pt states she has a rash on her shoulders & upper back that started ~1 month ago. Rash itches, it is big bumps but not hives per pt. Pt was seen for same yest in [facility]. Pt states she was given keflex & a medrol dose pack, pt states [facility] was concerned with an infection. Pt is concerned she may be rejecting the stent that was placed after her heart attack on 06/18/24. Pt is also requesting a full lab workup. States she wants everything checked. Lanny Parks LPN [facility] 08-09-2024 History of Present illness Narrative Radiology Service Progress Note PATIENT NAME: Terri Burciaga DATE OF SERVICE: August 09, 2024 TIME: 1:27 PM PATIENT IDENTITY VERIFICATION COMPLETED USING TWO (2) IDENTIFIERS: Name and Date of confirmed by patient verbally. FALL SCREENING: Has the patient had 2 falls in the last year or 1 fall with injury or currently using an Ambulatory Assistive Device (Walker, Cane, Wheelchair, Crutches, etc.)? No PATIENT GENDER DATA: Female. status: : No status: NO. PATIENT RELEVANT IMPLANT DATA REVIEWED: Yes PATIENT PRESENTS WITH AN IMPLANTABLE OR ATTACHED DYNAMITE PACKING MACHINE OPERATOR: No RADIOLOGY DEPARTMENT: General X-ray: Exam(s) Completed: Upper Extremity X-Ray(s): Fingers/Thumb, right PERIPHERAL IV DATA: Not applicable SIGNED BY: RT Dori(R) August 09, 2024 1:27 PM documented in this encounter [facility] 08-09-2024 Note [facility] 08-09-2024 Note [facility] 08-09-2024 History of Present illness Narrative This note was created using [employer]port[employer]. Subjective Terri Burciaga is a 78 year old female. HPI 78-year-old female presents for right thumb pain. Patient states she has been having right thumb pain since this morning. Pain is worse with movement. She points to the first MCP joint. She has never had issues with this in the past. She is right-hand dominant. She states that she did not do anything out of the ordinary yesterday. No fall or injury. No numbness or tingling. She has been taking Tylenol with minimal improvement. Of note, patient had an PR about a month ago with cardiac catheterization. She developed pseudoaneurysm and hematoma of the right groin afterwards. Patient states she has followed up with vascular regarding this. She has no issues with this area. No leg swelling or pain. No upper arm swelling or pain. No fevers. No other complaint. PAST MEDICAL HISTORY Diagnosis Date Arrhythmia Benign neoplasm of colon Calculus of kidney Chest pain, unspecified non cardiac Esophageal reflux Esophagitis, unspecified Feeling of incomplete bladder emptying 09/23/2022 Granulomatous disease (HCC) History of recurrent UTIs HYPERLIPIDEMIA NEC/NOS 03/16/2009 HYPERTENSION NOS 03/10/2008 Mental disorder FRIEDA on CPAP Osteopenia BMD 12/12/2011 Sciatica Sjogren syndrome (HCC) PAST SURGICAL HISTORY Procedure Laterality Date ABDOMINAL SURGERY HX APPENDECTOMY HX COLONOSCOPY COLONOSCOPY FLX DX W/COLLJ SPEC WHEN PFRMD 01/11/2016 Colonoscopy COLSC FLX W/RMVL OF TUMOR POLYP LESION SNARE TQ 02/05/2012 repeat 5 years EGD 02/05/2012 ESOPHAGOGASTRODUODENOSCOPY TRANSORAL DIAGNOSTIC 10/16/2008 EGD ESOPHAGOGASTRODUODENOSCOPY TRANSORAL DIAGNOSTIC 01/11/2016 EGD LYSIS OF ADHESIONS SALPINX/OVARY x6 OOPHORECTOMY, PART/TOTAL UNILAT/BILAT bilateral salpingectomy and left oophorectomy REM LESION TRUNK,ARM,LEG > 4.0CM 07/11/2022 REMV LUNG,WEDGE RESECTION Left 07/30/2021 VATS wedge resection of left lower lobe wedge SKIN EXCISION 07/11/2022 anterior chest wall & left torso TOTAL ABDOMINAL HYSTERECT W/WO RMVL TUBE OVARY 11/09/1969 endometriosis, change in ovary, right oophorectomy VAGINAL HYSTERECTOMY ALLERGIES Cigarette Smoke, Gabapentin, Adhesive Tape (Rosins), Aleve [Naproxen Sodium], Ativan [Lorazepam], Cats, Lopressor [Metoprolol Tartrate], Nickel, Norvasc [Amlodipine Besylate], Sulfa (Sulfonamide Antibiotics), and Vioxx [Rofecoxib] MEDICATIONS acetaminophen (TYLENOL EXTRA STRENGTH) 500 mg tablet Take 500 mg by mouth every 8 hours as needed for pain. aspirin 81 mg chewable tablet Take 81 mg by mouth once daily. traMADol (ULTRAM) 50 mg tablet Take 50 mg by mouth every 6 hours as needed for pain. rosuvastatin (CRESTOR) 10 mg tablet Take 10 mg by mouth daily at bedtime. carvedilol (COREG) 6.25 mg tablet Take 1 tablet by mouth every 12 hours. KLOR-CON M20 20 mEq tablet Take 1 tablet by mouth every afternoon. losartan (COZAAR) 100 mg tablet Take 1 tablet by mouth once daily. dnzog-nt-5-abc-tqs-fzjzbie-ast (MAXIMUM RED KRILL OMEGA-3) 865-20-27-45 mg cap Take 1 tablet by mouth once daily. nitroglycerin sublingual (NITROSTAT) 0.4 mg SL tablet Dissolve 1 tablet under the tongue every 5 minutes as needed for chest pain. ticagrelor (BRILINTA) 90 mg tablet Take 1 tablet by mouth two times a day. coenzyme Q10 (CO Q-10) 100 mg cap capsule Take 100 mg by mouth once daily. Azelastine HCl (OPTIVAR) 0.05 % ophthalmic solution Use 1 Drop in both eyes twice daily. cyclobenzaprine (FLEXERIL) 5 mg tablet Take 1 tablet by mouth three times daily as needed. Magnesium 200 mg tab Take 1 tablet by mouth once daily. esomeprazole (NEXIUM) 20 mg capsule Take 1 capsule by mouth DAILY (6 AM). diphenhydrAMINE HCl 12.5 mg chewable tablet Take 12.5 mg by mouth at bedtime as needed. iv contrast (will be provided with radiology test) CT Urogram WO/W Inject, intravenously, once for 1 dose.No IV access, insert saline lock prior to the beginning of sedation, infusion, injection of imaging exam. Discontinue saline lock post exam. If Pt. has a central line or IVAD, may access for administration according to line specific nursing protocol. Once exam is complete flush line and de-access according to line specific nursing protocol in the CT contrast administration guidelines link. (Patient not taking: Reported on 08/09/2024) FAMILY HISTORY Problem Relation Age of Onset Hypertension Mother other (macular degeneration) Mother Coronary Artery Disease Father Stroke Father other (CABG) Father Coronary Artery Disease Sister Coronary Artery Disease Brother Ischemic Heart Disease Paternal Grandfather other (Peripheral Vascular Disease) Sister Hypertension Sister Hypertension Sister Hypertension Brother Hypertension Son Social History Tobacco Use Smoking status: Former Current packs/day: 0.00 Average packs/day: 1.5 packs/day for 20.0 years (30.0 ttl pk-yrs) Types: Cigarettes Start date: 11/09/1960 Quit date: 11/09/1980 Years since quittin.7 Smokeless tobacco: Never Tobacco comments: up to 3 PPD Vaping Use Vaping status: Never Used Substance Use Topics Alcohol use: Not Currently Drug use: Never Review of Systems Constitutional: Negative for chills and fever. HENT: Negative for congestion, ear pain and sore throat. Respiratory: Negative for cough and shortness of breath. Cardiovascular: Negative for chest pain. Gastrointestinal: Negative for diarrhea and vomiting. Musculoskeletal: Positive for arthralgias (R thumb). Objective BP 128/88 Pulse 76 Temp 37.2 C (99 F) (Left Tympanic) Resp 16 Wt 78.9 kg (173 lb 15.1 oz) SpO2 98% BMI 35.13 kg/m Physical Exam Vitals and nursing note reviewed. Constitutional: General: She is not in acute distress. Appearance: Normal appearance. She is not toxic-appearing. Cardiovascular: Rate and Rhythm: Normal rate and regular rhythm. Pulmonary: Effort: Pulmonary effort is normal. Breath sounds: Normal breath sounds. Musculoskeletal: Right hand: Swelling, tenderness and bony tenderness present. No deformity. Decreased range of motion. Normal sensation. There is no disruption of two-point discrimination. Normal capillary refill. Normal pulse. Comments: Tenderness over the right first MCP joint. Swelling noted around this area with mild erythema. Decreased ROM of the MCP joint due to pain. Normal ROM of the IP joint of the thumb. Patient has some tenderness over the metacarpal as well. No snuffbox tenderness. Normal ROM of the wrist. Able to make a fist. Normal sensation all digits. Cap refill less than 2 seconds. Radial and ulnar pulses 2+. No forearm or upper arm swelling. Skin: General: Skin is warm and dry. Neurological: Mental Status: She is alert. Assessment and Plan ASSESSMENT/PLAN: 1. Pain of right thumb - ICD9: 729.5, ICD10: M79.644 - XR DIGIT GENERAL 3V FRONTAL/LAT/OBL RIGHT-no acute osseous abnormality. Right first carpometacarpal degenerative disease. -Recommend rest, ice, elevation, Tylenol as needed for pain. -Possible gout versus cellulitis? -Due to redness and swelling, will cover for possible skin infection. Rx for Keflex. -Rx for Medrol Dosepak to help with pain and inflammation. Diagnosis and treatment plan were discussed and questions were answered to the patient's satisfaction. Pt acknowledged understanding of concepts and follow up plan. Specific signs and symptoms that would indicate the need for higher level of care were discussed in detail warranting prompt ER evaluation. PACO Jose documented in this encounter [facility] 07-26-2024 Note [facility] 07-26-2024 History of Present illness Narrative Images from the original note were not included. [facility] V[facility] Thor[facility] [place] DEPARTMENT OF VASCULAR SURGERY OUTPATIENT VISIT DATE July 26, 2024 OUTPATIENT VISIT TYPE CONSULTATION SERVICE DATE: 07/26/2024 SERVICE TIME: 9:12 AM PRIMARY CARE PHYSICIAN: Andre Santana MD REFERRING PROVIDER: Sandy Holm [id number] [facility] [id number] Consult requested for an opinion regarding the evaluation and treatment of the above. My final impression and recommendations will be communicated back to the requesting physician by way of the shared medical record or letter via US mail. CHIEF COMPLAINT: Patient presents with: New Patient History of Present Illness: Patient is a 78 year old White female presenting for consultation, evaluation and possible treatment of suture removal. She was traveling in [place] at a family reunion and had a PR. She underwent cardiac catheterization and developed a pseudoanuerysm and hematoma. She had to have emergent repair of the vessel. PAIN ASSESSMENT: PAIN EVALUATION 07/26/2024 0910 Pain Level: 1 Pain Location: Groin Description: Sore Frequency: Intermittent Obstetric History No data available PAST MEDICAL HISTORY Diagnosis Date Arrhythmia Benign neoplasm of colon Calculus of kidney Chest pain, unspecified non cardiac Esophageal reflux Esophagitis, unspecified Feeling of incomplete bladder emptying 09/23/2022 Granulomatous disease (HCC) History of recurrent UTIs HYPERLIPIDEMIA NEC/NOS 03/16/2009 HYPERTENSION NOS 03/10/2008 Mental disorder FRIEDA on CPAP Osteopenia BMD 12/12/2011 Sciatica Sjogren syndrome (HCC) PAST SURGICAL HISTORY Procedure Laterality Date ABDOMINAL SURGERY HX APPENDECTOMY HX COLONOSCOPY COLONOSCOPY FLX DX W/COLLJ SPEC WHEN PFRMD 01/11/2016 Colonoscopy COLSC FLX W/RMVL OF TUMOR POLYP LESION SNARE TQ 02/05/2012 repeat 5 years EGD 02/05/2012 ESOPHAGOGASTRODUODENOSCOPY TRANSORAL DIAGNOSTIC 10/16/2008 EGD ESOPHAGOGASTRODUODENOSCOPY TRANSORAL DIAGNOSTIC 01/11/2016 EGD LYSIS OF ADHESIONS SALPINX/OVARY x6 OOPHORECTOMY, PART/TOTAL UNILAT/BILAT bilateral salpingectomy and left oophorectomy REM LESION TRUNK,ARM,LEG > 4.0CM 07/11/2022 REMV LUNG,WEDGE RESECTION Left 07/30/2021 VATS wedge resection of left lower lobe wedge SKIN EXCISION 07/11/2022 anterior chest wall & left torso TOTAL ABDOMINAL HYSTERECT W/WO RMVL TUBE OVARY 11/09/1969 endometriosis, change in ovary, right oophorectomy VAGINAL HYSTERECTOMY SOCIAL HISTORY: Social History Tobacco Use Smoking status: Former Current packs/day: 0.00 Average packs/day: 1.5 packs/day for 20.0 years (30.0 ttl pk-yrs) Types: Cigarettes Start date: 11/09/1960 Quit date: 11/09/1980 Years since quittin.7 Smokeless tobacco: Never Tobacco comments: up to 3 PPD Vaping Use Vaping status: Never Used Substance Use Topics Alcohol use: Not Currently Drug use: Never FAMILY HISTORY Problem Relation Age of Onset Hypertension Mother other (macular degeneration) Mother Coronary Artery Disease Father Stroke Father other (CABG) Father Coronary Artery Disease Sister Coronary Artery Disease Brother Ischemic Heart Disease Paternal Grandfather other (Peripheral Vascular Disease) Sister Hypertension Sister Hypertension Sister Hypertension Brother Hypertension Son MEDICATIONS: acetaminophen (TYLENOL EXTRA STRENGTH) 500 mg tablet Take 500 mg by mouth every 8 hours as needed for pain. aspirin 81 mg chewable tablet Take 81 mg by mouth once daily. traMADol (ULTRAM) 50 mg tablet Take 50 mg by mouth every 6 hours as needed for pain. rosuvastatin (CRESTOR) 10 mg tablet Take 10 mg by mouth daily at bedtime. carvedilol (COREG) 6.25 mg tablet Take 1 tablet by mouth every 12 hours. KLOR-CON M20 20 mEq tablet Take 1 tablet by mouth every afternoon. losartan (COZAAR) 100 mg tablet Take 1 tablet by mouth once daily. [id number]-brl-[id number]-ast (MAXIMUM RED KRILL OMEGA-3) 163-79-25-45 mg cap Take 1 tablet by mouth once daily. nitroglycerin sublingual (NITROSTAT) 0.4 mg SL tablet Dissolve 1 tablet under the tongue every 5 minutes as needed for chest pain. ticagrelor (BRILINTA) 90 mg tablet Take 1 tablet by mouth two times a day. coenzyme Q10 (CO Q-10) 100 mg cap capsule Take 100 mg by mouth once daily. iv contrast (will be provided with radiology test) CT Urogram WO/W Inject, intravenously, once for 1 dose.No IV access, insert saline lock prior to the beginning of sedation, infusion, injection of imaging exam. Discontinue saline lock post exam. If Pt. has a central line or IVAD, may access for administration according to line specific nursing protocol. Once exam is complete flush line and de-access according to line specific nursing protocol in the CT contrast administration guidelines link. Azelastine HCl (OPTIVAR) 0.05 % ophthalmic solution Use 1 Drop in both eyes twice daily. cyclobenzaprine (FLEXERIL) 5 mg tablet Take 1 tablet by mouth three times daily as needed. Magnesium 200 mg tab Take 1 tablet by mouth once daily. esomeprazole (NEXIUM) 20 mg capsule Take 1 capsule by mouth DAILY (6 AM). diphenhydrAMINE HCl 12.5 mg chewable tablet Take 12.5 mg by mouth at bedtime as needed. ALLERGIES: ALLERGIES Allergen Reactions Cigarette Smoke Shortness of Breath Gabapentin Intolerance Couldn't walk straight or control her muscles. Adhesive Tape (Deyanira* Itching Aleve [Naproxen Sod* GI Upset Ativan [Lorazepam] Intolerance depression Cats Lopressor [Metoprol* Mental Status Change Suicidal ideation Nickel Rash Norvasc [Amlodipine* Swelling Swelling to feet and ankles Sulfa (Sulfonamide * Intolerance severe headache Vioxx [Rofecoxib] GI Upset REVIEW of SYSTEMS: Constitutional: No weight loss, malaise or fevers. HEENT: Negative for frequent or significant headaches, No changes in hearing or vision, no nose bleeds or other nasal problems Respiratory: Negative for cough and wheezing and Positive for shortness of breath on exertion Cardiovascular: Negative for chest pain and leg swelling and Positive for palpitations Gatrointestinal: Negative for abdominal discomfort, blood in stools or black stools or change in bowel habits Genitourinary: No history of dysuria, frequency, or incontinence Musculoskeletal: Negative for joint pain or swelling and muscle pain and Positive for low back pain Endocrine: Positive for cold intolerance Hematology/Lymphatic: Positive for bruises easily Neurologic: No history or headaches, syncope, paralysis, seizures or tremors Integumentary: Negative for lesions and rash and Positive for itching PHYSICAL EXAM: VITALS: There were no vitals taken for this visit. Gen- no distress Ext- groin incision well healed, sutures removed without difficulty Diagnostic tests reviewed for today's visit: Most recent labs Most recent imaging IMPRESSION: Ms. Burciaga is a 78 year old female with history of pseudoaneurysm repair following cardiac catheterization . PLAN and RECOMMENDATIONS: Reviewed outside reports, Doing well Follow up as needed SIGNATURE: Anitha Pacheco DO PATIENT NAME: Terri Burciaga DATE: July 26, 2024 TIME: 9:12 AM documented in this encounter [facility] 07-25-2024 Note [facility] 07-25-2024 History of Present illness Narrative Images from the original note were not included. Darshan Abarca MD Interventional Cardiology [address] [place] [address] [phone] Chief Complaint Patient presents with: Established Patient HISTORY OF PRESENT ILLNESS: Ms. Burciaga is a 78 year old female seen in my office for follow-up prior history of atrial tachycardia treated medically with normal LV function recently she was traveling to [place] when she had acute ST segment elevation myocardial infarction drug-eluting stent and urgent cardiac catheterization was done via femoral approach patient had Bro drug-eluting stent 3 oh by 26 to the right coronary artery she was told she had another 60% blockage were treated medically her cardiac catheterization complicated by right groin hematoma with pseudoaneurysm required vascular surgical repair patient still have the stitches in the right groin Overall she feels well asymptomatic slightly short of breath weak recovering from her procedure denies any angina No signs or symptoms of congestive heart failure Cardiac Risk Factors age (male over 45, female over 55), hyperlipidemia, obesity, hypertension, family history of CAD PAST MEDICAL HISTORY Diagnosis Date Arrhythmia Benign neoplasm of colon Calculus of kidney Chest pain, unspecified non cardiac Esophageal reflux Esophagitis, unspecified Feeling of incomplete bladder emptying 09/23/2022 Granulomatous disease (HCC) History of recurrent UTIs HYPERLIPIDEMIA NEC/NOS 03/16/2009 HYPERTENSION NOS 03/10/2008 Mental disorder FRIEDA on CPAP Osteopenia BMD 12/12/2011 Sciatica Sjogren syndrome (HCC) PAST SURGICAL HISTORY Procedure Laterality Date ABDOMINAL SURGERY HX APPENDECTOMY HX COLONOSCOPY COLONOSCOPY FLX DX W/COLLJ SPEC WHEN PFRMD 01/11/2016 Colonoscopy COLSC FLX W/RMVL OF TUMOR POLYP LESION SNARE TQ 02/05/2012 repeat 5 years EGD 02/05/2012 ESOPHAGOGASTRODUODENOSCOPY TRANSORAL DIAGNOSTIC 10/16/2008 EGD ESOPHAGOGASTRODUODENOSCOPY TRANSORAL DIAGNOSTIC 01/11/2016 EGD LYSIS OF ADHESIONS SALPINX/OVARY x6 OOPHORECTOMY, PART/TOTAL UNILAT/BILAT bilateral salpingectomy and left oophorectomy REM LESION TRUNK,ARM,LEG > 4.0CM 07/11/2022 REMV LUNG,WEDGE RESECTION Left 07/30/2021 VATS wedge resection of left lower lobe wedge SKIN EXCISION 07/11/2022 anterior chest wall & left torso TOTAL ABDOMINAL HYSTERECT W/WO RMVL TUBE OVARY 11/09/1969 endometriosis, change in ovary, right oophorectomy VAGINAL HYSTERECTOMY FAMILY HISTORY Problem Relation Age of Onset Hypertension Mother other (macular degeneration) Mother Coronary Artery Disease Father Stroke Father other (CABG) Father Coronary Artery Disease Sister Coronary Artery Disease Brother Ischemic Heart Disease Paternal Grandfather other (Peripheral Vascular Disease) Sister Hypertension Sister Hypertension Sister Hypertension Brother Hypertension Son Social History Tobacco Use Smoking status: Former Current packs/day: 0.00 Average packs/day: 1.5 packs/day for 20.0 years (30.0 ttl pk-yrs) Types: Cigarettes Start date: 11/09/1960 Quit date: 11/09/1980 Years since quittin.7 Smokeless tobacco: Never Tobacco comments: up to 3 PPD Vaping Use Vaping status: Never Used Substance Use Topics Alcohol use: Not Currently Drug use: Never ALLERGIES Allergen Reactions Cigarette Smoke Shortness of Breath Gabapentin Intolerance Couldn't walk straight or control her muscles. Adhesive Tape (Deyanira* Itching Aleve [Naproxen Sod* GI Upset Ativan [Lorazepam] Intolerance depression Cats Lopressor [Metoprol* Mental Status Change Suicidal ideation Nickel Rash Norvasc [Amlodipine* Swelling Swelling to feet and ankles Sulfa (Sulfonamide * Intolerance severe headache Vioxx [Rofecoxib] GI Upset Medications: Current Outpatient Medications Medication Sig Dispense Refill acetaminophen (TYLENOL EXTRA STRENGTH) 500 mg tablet Take 500 mg by mouth every 8 hours as needed for pain. aspirin 81 mg chewable tablet Take 81 mg by mouth once daily. traMADol (ULTRAM) 50 mg tablet Take 50 mg by mouth every 6 hours as needed for pain. rosuvastatin (CRESTOR) 10 mg tablet Take 10 mg by mouth daily at bedtime. carvedilol (COREG) 6.25 mg tablet Take 1 tablet by mouth every 12 hours. KLOR-CON M20 20 mEq tablet Take 1 tablet by mouth every afternoon. losartan (COZAAR) 100 mg tablet Take 1 tablet by mouth once daily. 90 tablet 3 [id number]-3-[id number]-nvf-czrwcdd-ast (MAXIMUM RED KRILL OMEGA-3) [id number] mg cap Take 1 tablet by mouth once daily. 90 capsule 3 nitroglycerin sublingual (NITROSTAT) 0.4 mg SL tablet Dissolve 1 tablet under the tongue every 5 minutes as needed for chest pain. 100 tablet 1 ticagrelor (BRILINTA) 90 mg tablet Take 1 tablet by mouth two times a day. 60 tablet 2 coenzyme Q10 (CO Q-10) 100 mg cap capsule Take 100 mg by mouth once daily. iv contrast (will be provided with radiology test) CT Urogram WO/W Inject, intravenously, once for 1 dose.No IV access, insert saline lock prior to the beginning of sedation, infusion, injection of imaging exam. Discontinue saline lock post exam. If Pt. has a central line or IVAD, may access for administration according to line specific nursing protocol. Once exam is complete flush line and de-access according to line specific nursing protocol in the CT contrast administration guidelines link. 1 Each 0 Azelastine HCl (OPTIVAR) 0.05 % ophthalmic solution Use 1 Drop in both eyes twice daily. 3 mL 2 cyclobenzaprine (FLEXERIL) 5 mg tablet Take 1 tablet by mouth three times daily as needed. 30 tablet 2 Magnesium 200 mg tab Take 1 tablet by mouth once daily. esomeprazole (NEXIUM) 20 mg capsule Take 1 capsule by mouth DAILY (6 AM). diphenhydrAMINE HCl 12.5 mg chewable tablet Take 12.5 mg by mouth at bedtime as needed. No current facility-administered medications for this visit. Review of Systems Constitutional: Negative for chills, diaphoresis, fever, malaise/fatigue and weight loss. HENT: Negative for congestion, ear discharge, ear pain, hearing loss, nosebleeds, sinus pain, sore throat and tinnitus. Eyes: Negative for blurred vision, double vision, photophobia, pain, discharge and redness. Respiratory: Positive for shortness of breath. Negative for cough, hemoptysis, sputum production, wheezing and stridor. Cardiovascular: Negative for chest pain, palpitations, orthopnea, claudication, leg swelling and PND. Gastrointestinal: Negative for abdominal pain, blood in stool, constipation, diarrhea, heartburn, melena, nausea and vomiting. Genitourinary: Negative for dysuria, flank pain, frequency, hematuria and urgency. Musculoskeletal: Negative for back pain, falls, joint pain, myalgias and neck pain. Skin: Negative for itching and rash. Neurological: Negative for dizziness, tingling, tremors, sensory change, speech change, focal weakness, seizures, loss of consciousness, weakness and headaches. Endo/Heme/Allergies: Negative for environmental allergies and polydipsia. Does not bruise/bleed easily. Psychiatric/Behavioral: Negative for depression, hallucinations, memory loss, substance abuse and suicidal ideas. The patient is not nervous/anxious and does not have insomnia. Physical Examination: Vitals:BP 133/83 Pulse 72 Ht 4' 11 (1.50m) Wt 171 lb (77.6kg) SpO2 98% BMI 34.52 kg/(m^2). BP w/Orthostatic Vitals Date and Time Orthostatic BP Orthostatic Pulse BP Pulse BP Position BP Site BP Cuff Size 07/25/24 1027 -- -- 133/83 72 -- -- -- Last 2 Encounter Wt Readings: Date: Wt: 07/25/2024 77.6 kg (171 lb) 07/18/2024 78.5 kg (173 lb) Physical Exam Constitutional: General: She is not in acute distress. Appearance: She is not diaphoretic. HENT: Head: Normocephalic and atraumatic. Right Ear: External ear normal. Left Ear: External ear normal. Nose: Nose normal. Mouth/Throat: Pharynx: Oropharynx is clear. Eyes: General: Right eye: No discharge. Left eye: No discharge. Conjunctiva/sclera: Conjunctivae normal. Pupils: Pupils are equal, round, and reactive to light. Cardiovascular: Rate and Rhythm: Normal rate and regular rhythm. Heart sounds: Normal heart sounds, S1 normal and S2 normal. No murmur heard. No friction rub. No gallop. No S3 or S4 sounds. Pulmonary: Effort: Pulmonary effort is normal. No respiratory distress. Breath sounds: Normal breath sounds. No wheezing or rales. Chest: Chest wall: No tenderness. Abdominal: General: Abdomen is flat. Musculoskeletal: General: Normal range of motion. Cervical back: Normal range of motion and neck supple. Skin: General: Skin is warm and dry. Neurological: Mental Status: She is alert and oriented to person, place, and time. Psychiatric: Mood and Affect: Mood normal. Thought Content: Thought content normal. Judgment: Judgment normal. Pertinent Labs: CBC: Hemoglobin (g/dL) Date Value 01/20/2024 12.9 10/16/2021 14.6 Hematocrit (%) Date Value 01/20/2024 41.0 10/16/2021 46.9 WBC (k/uL) Date Value 01/20/2024 6.33 10/16/2021 6.22 Platelet Count (k/uL) Date Value 01/20/2024 212 10/16/2021 214 BMP: Glucose (mg/dL) Date Value 01/20/2024 100 10/16/2021 93 Potassium (mmol/L) Date Value 01/20/2024 4.2 10/16/2021 4.0 Sodium (mmol/L) Date Value 01/20/2024 139 10/16/2021 138 Chloride (mmol/L) Date Value 01/20/2024 102 10/16/2021 102 CO2 (mmol/L) Date Value 01/20/2024 23 10/16/2021 25 Creatinine (mg/dL) Date Value 01/20/2024 1.77 10/16/2021 1.05 BUN (mg/dL) Date Value 01/20/2024 29 10/16/2021 16 Anion Gap (mmol/L) Date Value 01/20/2024 14 10/16/2021 11 Calcium (mg/dL) Date Value 10/16/2021 9.5 Calcium, Total (mg/dL) Date Value 01/20/2024 9.4 INR: Lipid Profile: Cholesterol, Total Date Value Ref Range Status 05/08/2022 209 (H) <200 mg/dL Final Comment: <200 mg/dL, Desirable 200-239 mg/dL, Borderline high >239 mg/dL, High HDL Cholesterol Date Value Ref Range Status 05/08/2022 50 >39 mg/dL Final Comment: 40-59 mg/dL, Acceptable >59 mg/dL, High: Negative risk factor for coronary heart disease <40 mg/dL, Low: Positive risk factor for coronary heart disease LDL Cholesterol Date Value Ref Range Status 05/08/2022 138 (H) <100 mg/dL Final Comment: <100 mg/dL, Optimal 100-129 mg/dL, Near optimal/above optimal 130-159 mg/dL, Borderline high 160-189 mg/dL, High >189 mg/dL, Very high Secondary prevention optimal LDL Cholesterol levels are recommended to be < 70 mg/dL Triglyceride Date Value Ref Range Status 05/08/2022 104 <150 mg/dL Final Comment: <150 mg/dL, Normal 150-199 mg/dL, Borderline high 200-499 mg/dL, High >499 mg/dL, Very high Hemoglobin A1C: No results found for: HGBA1C TSH: No results found for: TSHREFL Prior Cardiac Testing Coronary angiography Assessment and Plan: 78 years old female patient with coronary artery disease status post RCA drug-eluting stent ASSESSMENT/PLAN: 1. Post PTCA - ICD9: V45.82, ICD10: Z98.61 (primary diagnosis) Drug-eluting stent 3 mm by 26 mm long cardiac stent ( Oynx) On dual antiplatelet therapy With medical treatment She had residual moderate disease plan Nuclear stress test in 3 months to assess the significant of disease 2. Atrial tachycardia (HCC) - ICD9: 427.89, ICD10: I47.19 Controlled on medication 3. 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 - ICD9: 414.01, ICD10: I25.10 Continue medical therapy Darshan Abarca MD Follow up plannin months Electronically signed by Darshan Abarca MD on July 25, 2024, 10:53 AM The above note was partially created using a dictation recognition software. A reasonable attempt has been made to correct any errors. documented in this encounter [facility] 07-21-2024 Telephone encounter Note Patient called in stating she has sutures in a vertical incision in the groin that need to be removed. She is asking if Dr. Abarca's office would be able to remove them at her appointment on Thursday? Patient does have appointment with Dr. Pacheco in vascular surgery on Thursday for a suture removal. Advised patient I did not know if cardiology would be comfortable removing those and she asked that I send a message to ask. Patient can be contacted back at [phone]. [facility] 07-21-2024 Miscellaneous Notes Patient called in stating she has sutures in a vertical incision in the groin that need to be removed. She is asking if Dr. Abarca's office would be able to remove them at her appointment on Thursday? Patient does have appointment with Dr. Pacheco in vascular surgery on Thursday for a suture removal. Advised patient I did not know if cardiology would be comfortable removing those and she asked that I send a message to ask. Patient can be contacted back at [phone]. Patient had PR and PCI on 06/18/24 while in [place]. Patient scheduled 07/25/24. Started on Brilinta and Crestor. Patient given 1 month supply. Patient asking if Dr. Abarca would order her a refill. Will call patient back asking for more information so I can call for medical records. Patient was driving at this time. Ekaterina Thorne RN Patient calling to schedule post op follow up with Dr. Tevin DRUMMOND. 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 She received cardiac stents. Please notify patient if she can be seen sooner than scheduled appointment on 10/03/24. documented in this encounter [facility] 07-18-2024 Instructions Sandy Holm APRN.CIRCULAR RIPSAW OPERATOR - 07/18/2024 4:07 PM EDT 1) Continue losartan 100 mg daily 2) Continue Brillinta 3) Continue carvedilol 4) Consult vascular surgeon HODA 5) Follow up in 4 months Get heart cath and intervention noted from [facility] documented in this encounter [facility] 07-18-2024 Note [facility] 07-18-2024 History of Present illness Narrative This is a 78 year old female who presents today with: No chief complaint on file. HISTORY OF PRESENT ILLNESS: Terri Burciaga is a 78 year old female. No chief complaint on file. Had acute STEMI- while in [place]. She thinks the artery on the back of the heart. Low blood pressure. Acute kidney injury Had bleed in the right femoral artery. Pseudoaneurysm. Saw vascular surgeon- fixed it in surgery Cleared to come home yesterday. Tired. PAST MEDICAL HISTORY: PAST MEDICAL HISTORY No date: Arrhythmia No date: Benign neoplasm of colon No date: Calculus of kidney No date: Chest pain, unspecified Comment: non cardiac No date: Esophageal reflux No date: Esophagitis, unspecified 09/23/2022: Feeling of incomplete bladder emptying No date: Granulomatous disease (HCC) No date: History of recurrent UTIs 03/16/2009: HYPERLIPIDEMIA NEC/NOS 03/10/2008: HYPERTENSION NOS No date: Mental disorder No date: FRIEDA on CPAP No date: Osteopenia Comment: BMD 12/12/2011 No date: Sciatica No date: Sjogren syndrome (HCC) PAST SURGICAL HISTORY No date: ABDOMINAL SURGERY HX No date: APPENDECTOMY HX 1990s: COLONOSCOPY 01/11/2016: COLONOSCOPY FLX DX W/COLLJ SPEC WHEN PFRMD Comment: Colonoscopy 02/05/2012: COLSC FLX W/RMVL OF TUMOR POLYP LESION SNARE TQ Comment: repeat 5 years 02/05/2012: EGD 10/16/2008: ESOPHAGOGASTRODUODENOSCOPY TRANSORAL DIAGNOSTIC Comment: EGD 01/11/2016: ESOPHAGOGASTRODUODENOSCOPY TRANSORAL DIAGNOSTIC Comment: EGD No date: LYSIS OF ADHESIONS SALPINX/OVARY Comment: x6 No date: OOPHORECTOMY, PART/TOTAL UNILAT/BILAT Comment: bilateral salpingectomy and left oophorectomy 07/11/2022: REM LESION TRUNK,ARM,LEG > 4.0CM 07/30/2021: REMV LUNG,WEDGE RESECTION; Left Comment: VATS wedge resection of left lower lobe wedge 07/11/2022: SKIN EXCISION Comment: anterior chest wall & left torso 11/09/1969: TOTAL ABDOMINAL HYSTERECT W/WO RMVL TUBE OVARY Comment: endometriosis, change in ovary, right oophorectomy No date: VAGINAL HYSTERECTOMY ALLERGIES Cigarette Smoke, Gabapentin, Adhesive Tape (Rosins), Aleve [Naproxen Sodium], Ativan [Lorazepam], Cats, Lopressor [Metoprolol Tartrate], Nickel, Norvasc [Amlodipine Besylate], Sulfa (Sulfonamide Antibiotics), and Vioxx [Rofecoxib] MEDICATIONS Current Outpatient Medications Medication Sig olmesartan (BENICAR) 5 mg tablet Take 20 mg by mouth every morning. acetaminophen (TYLENOL EXTRA STRENGTH) 500 mg tablet Take 500 mg by mouth every 8 hours as needed for pain. aspirin 81 mg chewable tablet Take 81 mg by mouth once daily. traMADol (ULTRAM) 50 mg tablet Take 50 mg by mouth every 6 hours as needed for pain. rosuvastatin (CRESTOR) 10 mg tablet Take 10 mg by mouth daily at bedtime. carvedilol (COREG) 6.25 mg tablet Take 1 tablet by mouth every 12 hours. KLOR-CON M20 20 mEq tablet Take 1 tablet by mouth every afternoon. ticagrelor (BRILINTA) 90 mg tablet Take 1 tablet by mouth two times a day. Azelastine HCl (OPTIVAR) 0.05 % ophthalmic solution Use 1 Drop in both eyes twice daily. cyclobenzaprine (FLEXERIL) 5 mg tablet Take 1 tablet by mouth three times daily as needed. esomeprazole (NEXIUM) 20 mg capsule Take 1 capsule by mouth DAILY (6 AM). diphenhydrAMINE HCl 12.5 mg chewable tablet Take 12.5 mg by mouth at bedtime as needed. rosuvastatin (CRESTOR) 20 mg tablet Take 1 tablet by mouth daily at bedtime. cloNIDine HCl (CATAPRES) 0.1 mg tablet Take 1 tablet by mouth daily at bedtime. (Patient not taking: Reported on 07/18/2024) losartan (COZAAR) 100 mg tablet Take 1 tablet by mouth once daily. (Patient not taking: Reported on 07/18/2024) metoprolol succinate ER (TOPROL XL) 50 mg 24 hr tablet Take 1 tablet by mouth once daily. coenzyme Q10 (CO Q-10) 100 mg cap capsule Take 100 mg by mouth once daily. iv contrast (will be provided with radiology test) CT Urogram WO/W Inject, intravenously, once for 1 dose.No IV access, insert saline lock prior to the beginning of sedation, infusion, injection of imaging exam. Discontinue saline lock post exam. If Pt. has a central line or IVAD, may access for administration according to line specific nursing protocol. Once exam is complete flush line and de-access according to line specific nursing protocol in the CT contrast administration guidelines link. krill/om-3/dha/epa/phospho/ast (MAXIMUM RED KRILL OMEGA-3 ORAL) Take by mouth once daily. ascorbic acid (VITAMIN C ORAL) Take by mouth once daily. elderberry fruit (ELDERBERRY ORAL) Take by mouth once daily. CALCIUM ORAL Take by mouth once daily. [id number] 1 mg-25 mg-12.5 mg-1 mg tab Take by mouth once daily. Vitamin E 1 mg, Vitamin A 1 mg, Collagen Support Vaginal Cream (CPD) Apply 1 g to affected area three times a week. Magnesium 200 mg tab Take 1 tablet by mouth once daily. Garlic 100 mg tab Take 1 tablet by mouth once daily. Zinc 50 mg tab Take by mouth. Calcium magnesium BIOTIN ORAL Take by mouth once daily. Cholecalciferol, Vitamin D3, 25 mcg (1,000 unit) cap Take 1,000 Units by mouth once daily. No current facility-administered medications for this visit. FAMILY HISTORY Problem Relation Age of Onset Hypertension Mother other (macular degeneration) Mother Coronary Artery Disease Father Stroke Father other (CABG) Father Coronary Artery Disease Sister Coronary Artery Disease Brother Ischemic Heart Disease Paternal Grandfather other (Peripheral Vascular Disease) Sister Hypertension Sister Hypertension Sister Hypertension Brother Hypertension Son Social History Tobacco Use Smoking status: Former Current packs/day: 0.00 Average packs/day: 1.5 packs/day for 20.0 years (30.0 ttl pk-yrs) Types: Cigarettes Start date: 11/09/1960 Quit date: 11/09/1980 Years since quittin.7 Smokeless tobacco: Never Tobacco comments: up to 3 PPD Vaping Use Vaping status: Never Used Substance Use Topics Alcohol use: Not Currently Drug use: Never REVIEW OF SYSTEMS GENERAL: + weight loss, + malaise, no fevers/chills HEENT: Negative for frequent or significant headaches, RESPIRATORY: Negative for cough, no hemoptysis, no wheezing, + dyspnea or shortness of breath CARDIOVASCULAR: Negative for chest pain, no leg swelling, no orthopnea, some palpitations GI: No nausea, vomiting, or diarrhea/constipation. No heartburn or reflux symptoms. : No history of dysuria, some hematuria MUSCULOSKELETAL: Negative for joint pain or swelling. Back sore. SKIN: Ecchymosis NEURO: No history of headaches, syncope, paralysis, seizures or tremors MOOD: Negative for depression, anxiety, or suicidal ideation. EXAM: BP 124/80 Pulse 78 Resp 18 Wt 78.5 kg (173 lb) SpO2 97% BMI 34.94 kg/m PHYSICAL EXAM: Physical Exam Vitals reviewed. Constitutional: Appearance: Normal appearance. HENT: Head: Normocephalic. Cardiovascular: Rate and Rhythm: Normal rate and regular rhythm. Pulses: Normal pulses. Heart sounds: Murmur heard. Comments: Soft JOHN @ sternal border, no edema Pulmonary: Effort: Pulmonary effort is normal. Breath sounds: Normal breath sounds. Abdominal: General: Bowel sounds are normal. Palpations: Abdomen is soft. Musculoskeletal: General: Normal range of motion. Comments: Right groin with small hematoma from pseudoaneurysm Skin: General: Skin is warm and dry. Neurological: Mental Status: She is alert and oriented to person, place, and time. LABS: ASSESSMENT/PLAN: 1. ST elevation myocardial infarction (STEMI) involving other coronary artery of inferior wall (HCC) - ICD9: 410.40, ICD10: I21.19 (primary diagnosis) Stable - MAXIMUM RED KRILL OMEGA-3 300 MG-90 MG-27 MG-45 MG CAPSULE - NITROGLYCERIN 0.4 MG SUBLINGUAL TABLET - Continue carvedilol 6.25 mg 2 x day & losartan 100 mg daily - Has appt. With cardiology 2. Essential hypertension with goal blood pressure less than 140/90 - ICD9: 401.9, ICD10: I10 - Controlled - Recommend home blood pressure monitoring, to bring results to next visit - Encouraged sodium restriction, DASH or Mediterranean diet - Recommend regular aerobic exercise - LOSARTAN 100 MG TABLET 3. Pseudoaneurysm (HCC) - ICD9: 442.9, ICD10: I72.9 Consult vascular surgeon for post-op repair of pseudoaneurysm - CONSULT TO VASCULAR MEDICINE 4. Enlarged thyroid - ICD9: 240.9, ICD10: E04.9 Found on scan for PR - US THYROID/PARATHYROID 5. Mixed hyperlipidemia - ICD9: 272.2, ICD10: E78.2 - Controlled - Counseled on healthy diet and regular exercise - Rosuvastatin 10 mg daily 6. Atrial tachycardia (HCC) - ICD9: 427.89, ICD10: I47.19 Improved 7. FRIEDA (obstructive sleep apnea) - ICD9: 327.23, ICD10: G47.33 Not tolerant of CPAP Discussed treatment plan and patient voices understanding. Patient's questions answered appropriately. Medications and potential side effects were discussed and patient voices understanding. Return to the office as scheduled or as needed for worsening/no improvement. Sandy Holm APRN.CNP documented in this encounter [facility] 07-14-2024 Telephone encounter Note Pt notified of provider message and medication change. She verbalizes understanding and did teach back method. Juliann Dietrich MA July 14, 2024 5:23 PM [facility] 07-14-2024 Miscellaneous Notes Pt notified of provider message and medication change. She verbalizes understanding and did teach back method. Juliann Dietrich MA July 14, 2024 5:23 PM Please have her double up on Olmesartan to 20 mg daily. If BP is under 150 SBP and under 90- safe to come home. Give it a day or two and check again with feet on the floor- no interruptions... Patient calls and is very frustrated. Since being down in [place] patient has not had good control over her Blood pressure. Patient had stent placed 06/18 after she had myocardial infarction. One artery was 100% blocked and the other was 60% blocked. Patient was taken off her BP medications due to blood pressure being on the lower side. Patient was discharged from hospital after 4 days. Patient ran into problems when she developed a hematoma in leg. Patient was seen by vascular where they surgically. Patient was discharged with: Coreg 6.25 mg BID Olmesartan 10 mg daily Brilinta 90 mg BID Rosuvastatin 10 mg daily Patient calling upset because blood pressure continues to be elevated. Patient had vascular appointment today and blood pressure was 181/99. Vascular had told her to call engine dispatcher that she had seen in [place]. Patient states that she was told that she needed to call her doctor in [place] about heart medication. Patient is scared to travel home with blood pressure being elevated. Patient has hospital follow up visit with Sandra on 07/18/[address] Abarca on 07/25/2024. Patient asking if she should go back to previous medications that were prescribed by [facility] doctors? Please review and advise, Coni Mcdaniel RN documented in this encounter [facility] 07-14-2024 Telephone encounter Note Please have her double up on Olmesartan to 20 mg daily. If BP is under 150 SBP and under 90- safe to come home. Give it a day or two and check again with feet on the floor- no interruptions... [facility] 07-14-2024 Telephone encounter Note Patient calls and is very frustrated. Since being down in [place] patient has not had good control over her Blood pressure. Patient had stent placed 06/18 after she had myocardial infarction. One artery was 100% blocked and the other was 60% blocked. Patient was taken off her BP medications due to blood pressure being on the lower side. Patient was discharged from hospital after 4 days. Patient ran into problems when she developed a hematoma in leg. Patient was seen by vascular where they surgically. Patient was discharged with: Coreg 6.25 mg BID Olmesartan 10 mg daily Brilinta 90 mg BID Rosuvastatin 10 mg daily Patient calling upset because blood pressure continues to be elevated. Patient had vascular appointment today and blood pressure was 181/99. Vascular had told her to call engine dispatcher that she had seen in [place]. Patient states that she was told that she needed to call her doctor in [place] about heart medication. Patient is scared to travel home with blood pressure being elevated. Patient has hospital follow up visit with Sandra on 07/18/[address] Abarca on 07/25/2024. Patient asking if she should go back to previous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 Additional pack years: 0.00 Total pack years: 30.00 Types: Cigarettes Quit date: 11/09/1980 Years since quittin.5 Smokeless tobacco: Never Tobacco comments: up to 3 PPD Vaping Use Vaping Use: Never used Substance Use Topics Alcohol use: Not Currently Drug use: Never REVIEW OF SYSTEMS GENERAL: Slow weight loss- intermittent fasting, + malaise, no fevers/chills HEENT: Negative for frequent or significant headaches- slight headache for last couple days, No changes in hearing or vision. NECK: Negative for lumps, goiter, pain and significant neck swelling, on left clavicle 5 mm freely moveable nodule- non-tender RESPIRATORY: Negative for cough from allergies a little, hemoptysis, wheezing, dyspnea or shortness of breath with mowing CARDIOVASCULAR: Negative for chest pain, leg swelling, orthopnea, occ. palpitations GI: No nausea, vomiting, or diarrhea/constipation. No hematochezia/melena. No heartburn or reflux symptoms- uses Nexium. : Both occ. history of dysuria, frequency or incontinence- none now MUSCULOSKELETAL: Hands with joint pain or swelling. SKIN: + lesions, rash, and itching ENDOCRINE: Negative for cold or heat intolerance, polyuria, polydipsia and goiter NEURO: No history of headaches, syncope, paralysis, seizures or tremors MOOD: Negative for depression, anxiety, or suicidal ideation. EXAM: BP 128/76 Pulse 80 Wt 80.7 kg (178 lb) SpO2 98% BMI 35.95 kg/m PHYSICAL EXAM: Physical Exam Vitals reviewed. Constitutional: Appearance: Normal appearance. HENT: Head: Normocephalic. Cardiovascular: Rate and Rhythm: Normal rate and regular rhythm. Pulses: Normal pulses. Heart sounds: Normal heart sounds. Pulmonary: Effort: Pulmonary effort is normal. Breath sounds: Normal breath sounds. Abdominal: General: Bowel sounds are normal. Palpations: Abdomen is soft. Musculoskeletal: General: Normal range of motion. Cervical back: Neck supple. Comments: Hands stiff Skin: General: Skin is warm and dry. Neurological: General: No focal deficit present. Mental Status: She is alert and oriented to person, place, and time. Psychiatric: Mood and Affect: Mood normal. Behavior: Behavior normal. LABS: ASSESSMENT/PLAN: 1. Actinic keratosis - ICD9: 702.0, ICD10: L57.0 (primary diagnosis) - 5-FU cream daily for 4 weeks 2. Essential hypertension with goal blood pressure less than 140/90 - ICD9: 401.9, ICD10: I10 - Controlled - Recommend home blood pressure monitoring, to bring results to next visit - Encouraged sodium restriction, DASH or Mediterranean diet - Recommend regular aerobic exercise - CLONIDINE HCL 0.1 MG TABLET - LOSARTAN 100 MG TABLET - Metoprolol XL 50 mg daily 3. Hypertension, essential - ICD9: 401.9, ICD10: I10 - Controlled - Recommend home blood pressure monitoring, to bring results to next visit - Encouraged sodium restriction, DASH or Mediterranean diet - Recommend regular aerobic exercise - TRIAMTERENE 37.5 MG-HYDROCHLOROTHIAZIDE 25 MG CAPSULE Once a week for 4 weeks then stop - Continue other meds, plus start metoprolol XL 50 mg daily 4. Stage 3b chronic kidney disease (HCC) - ICD9: 585.3, ICD10: N18.32 - eGFR: 29 Worsening - will stop diuretics - TRIAMTERENE 37.5 MG-HYDROCHLOROTHIAZIDE 25 MG CAPSULE wean off - Will check kidney function in 6 weeks 5. Allergic dermatitis - ICD9: 692.9, ICD10: L23.9 - discussed skin care of rash - follow up if symptoms persist or worsen. - Medrol taper Discussed treatment plan and patient voices understanding. Patient's questions answered appropriately. Medications and potential side effects were discussed and patient voices understanding. Return to the office as scheduled or as needed for worsening/no improvement. Sandy Holm APRN.KIET documented in this encounter [facility] 02-22-2024 Nurse Note AMBULATORY CYSTOSCOPY PROCEDURE PREOPERATIVE/PROCEDURAL VERIFICATION: Patient verified by: Name and Date of UNIVERSAL PROTOCOL / SAFETY CHECKLIST Procedure to be Performed: Cystoscopy Sign In: A Moment of CARE was completed. Personnel directly involved with the procedure wore the appropriate PPE (Personal Protective Equipment). Patient/Surrogate Stated/Verified: PATIENT VERIFIED(optional for EMERGENT procedures): Patient name, Date of , Relevant allergies, and The intended procedure Time Out Communication: Intended patient and procedure match the source documents. Consent documented and matches the intended procedure. Sign Out: SIGN OUT (optional for EMERGENT procedures): No specimen collected. Sarah Miranda LPN Medications and allergies reviewed and updated. Latex Allergy:No Pre-Procedure Antibiotics: Keflex 500 mg orally given during visit @ 2:31 pm , by Sarah Miranda Pre-Procedure Vital Signs: BP BP 135/84 Pulse 93 Resp 18 Ht 149.9 cm (4' 11) Wt 82.6 kg (182 lb) BMI 36.76 kg/m . Current pain intensity is 0 on a scale of 0-10. Patient Prepped with Betadine Scrub to perineum and placement of sterile drape. Anesthetic Given: 6 cc 2% Lidocaine Jelly into Urethra. Instruction sheet given and reviewed: Yes Patient verbalizes understanding: Yes Post- procedure Vital Signs: B/P: 151/84 P: 94 R:16 Pain Ratin on a scale of 0 to 10. Specimens: obtained: Urine dip Nurse: Sarah Miranda LPN documented in this encounter [facility] 02-22-2024 Procedure note [facility] [place] Patient presents with hematuria gross for cystoscopy. [facility] notes reviewed: 08/25/2023 OV Evan Johnson The patient reports no gross hematuria, but several UA's with microscopic RBC's we discussed need for hematuria work-up We discussed the need for full hematuria workup due to the Gross Blood in the urine. These tests and procedures will be ordered today. After hematuria work-up if negative we will discuss Atrophic Vaginitis therapy with Topical Estrogen cream Cytology negative 09/22/2023: CTU: Peripelvic nonobstructing right renal calculi. Cholelithiasis Distal predominant colonic diverticulosis without evidence for superimposed acute inflammation. Interval history: Has noted blood on toilet paper recently (pink). Pt ID verified with patient: Yes Procedure verified with patient: Yes Procedure confirmed with physician and shipping support: Yes UNIVERSAL PROTOCOL / SAFETY CHECKLIST Procedure to be Performed: Cystoscopy Sign In: A Moment of CARE was completed. Personnel directly involved with the procedure wore the appropriate PPE (Personal Protective Equipment). Patient/Surrogate Stated/Verified: PATIENT VERIFIED(optional for EMERGENT procedures): Patient name, Date of , Relevant allergies, and The intended procedure Time Out Communication: Intended patient and procedure match the source documents. Consent documented and matches the intended procedure. Sign Out: SIGN OUT (optional for EMERGENT procedures): No specimen collected. All instruments, equipment, possible retained foreign bodies accounted for. CYSTOSCOPY PROCEDURE NOTE: A urinalysis was performed revealing no evidence of infection. Antibiotics: Keflex The benefits, risks, alternatives of the cystoscopy procedure and personnel were discussed with the patient. The verbal consent was obtained and the patient agrees to proceed. Procedure: The patient was placed on the procedure table in the supine position and prepped and draped in the usual sterile fashion. 2% Lidocaine Jelly was placed per urethra as an anesthetic in the standard fashion. Once adequate local anesthesia was achieved, the tip of the flexible cystoscope was carefully placed into the urethra under direct visual guidance. Urethra: Normal Bladder: no stones, no tumors, no lesions, both ureteral orifices seen Retroflexion: normal At the conclusion of the procedure, the flexible cystoscope was removed atraumatically. The patient tolerated the procedure without complications. Patient was given standard post-procedure instructions, and was directed to complete the course of oral antibiotics and increase oral fluid intake as directed. ASSESSMENT/PLAN: 1. Microscopic hematuria - ICD9: 599.72, ICD10: R31.29 (primary diagnosis) 2. Right renal stone - ICD9: 592.0, ICD10: N20.0 3. Vaginal atrophy - ICD9: 627.3, ICD10: N95.2 Discussed small, nonobstructing renal stone. Wants to observe. Discussed vaginal estrogen cream, patient does not want to use it at this time. Return to care as needed. Some Anitra Juarez MD documented in this encounter [facility] 02-22-2024 Instructions Sarah Miranda LPN - 02/22/2024 2:20 PM EDT [facility] Department of Urology After your Cystoscopy You have undergone a cystoscopy. Your doctor has inserted a telescope into your urinary bladder through your urethra to view the inside of your bladder. WHAT TO EXPECT: Possible burning during urination and /or blood tinged urine. WHAT TO DO: Resume normal activity and medications. Drink 6-8 glasses of fluid each day for 3 days to help flush your urinary system. MEDICATIONS: You were given keflex, a preventative antibiotic, prior to the procedure. WHEN TO CALL DOCTOR: IF you have a fever over 100 degrees Farenheit. IF you are unable to urinate IF blood clots form in your urine IF your urine becomes very bloody and does not clear with drinking extra fluids. Please call [facility] office at [phone] M-F 8:00 am to 5:00pm With any questions you may have and ask for the Triage Nurse After 5:00 pm or weekends [phone] Thank you 09/14/13 KW documented in this encounter [facility] 01-25-2024 Miscellaneous Notes Patient informed and verbalized understanding. States this trace of blood is nothing new. She thinks she also has a kidney stone that's moving. Has follow up scheduled with urology. Does not wish to complete urine test at this time. Teri Torres MA Please let her know: labs look pretty good. No abnormal proteins or significantly elevated inflammatory markers Continuing to show a trace of blood in your without pus or bacteria meaning not an infection. Recommend trial of first void supine urine collection. This means she would need a bed aragon and a container to collect urine first morning void without sitting or standing up to see if she has postural hematuria from increased venous pressure which is a benign condition. Will communicate when all labs are completed fo the rest. Thanks, Isreal Faustin PA-C documented in this encounter [facility] 01-21-2024 Miscellaneous Notes Patient given results and verbalized understanding of instructions given. Yessenia Hoffman LPN Is negative for COVID, flu, RSV. Please notify thank you documented in this encounter [facility] 01-20-2024 History of Present illness Narrative Radiology Service Progress Note PATIENT NAME: Terri Burciaga DATE OF SERVICE: January 20, 2024 TIME: 4:07 PM PATIENT IDENTITY VERIFICATION COMPLETED USING TWO (2) IDENTIFIERS: Name and Date of confirmed by patient verbally. FALL SCREENING: Has the patient had 2 falls in the last year or 1 fall with injury or currently using an Ambulatory Assistive Device (Walker, Cane, Wheelchair, Crutches, etc.)? No PATIENT GENDER DATA: Female. status: : No status: NO. PATIENT RELEVANT IMPLANT DATA REVIEWED: Yes PATIENT PRESENTS WITH AN IMPLANTABLE OR ATTACHED DYNAMITE PACKING MACHINE OPERATOR: No RADIOLOGY DEPARTMENT: General X-ray: Exam(s) Completed: Chest X-Ray PERIPHERAL IV DATA: Not applicable SIGNED BY: RT Elinor(R) January 20, 2024 4:07 PM documented in this encounter [facility] 01-20-2024 Instructions Fabiana Stephenson APRN.KIET - 01/20/2024 3:53 PM EDT RESPIRATORY INFECTION GENERAL INFORMATION: An upper respiratory tract infection, or cold, is a viral infection of the airway passages. It can be caused by any one of almost 200 different viruses. Common symptoms include a runny or stuffy nose, sneezing, watery eyes, sore throat, cough, and slight fever. Colds are contagious, especially during the first 3 or 4 days and cannot be cured by antibiotics. They are spread by coughs, sneezes, and direct contact, especially [id number]. A respiratory tract infection usually clears up in a few days, but some people may be sick for a week or two. INSTRUCTIONS: 1. Be careful not to blow your nose too hard because this may cause a nosebleed. 2. Use a cool-mist humidifier (vaporizer) to increase air moisture. This will make it easier for you to breathe. Do not use hot steam. 3. Rest as much as possible and get plenty of sleep. 4. Wash your hands often, especially after you blow your nose. Cover your mouth and nose with a tissue when you sneeze or cough. 5. Drink plenty of clear fluids (8 glasses a day) such as water, fruit juice, tea, clear soups, and carbonated beverages. CONTACT YOUR DOCTOR IF : 1. Your fever lasts more than 3 days. 2. You have a sore throat that gets worse or you see white or yellow spots in your throat. 3. Your cough gets worse or lasts more than 10 days. 4. You develop a rash anywhere on your skin. 5. You have an earache or a headache. 6. You have thick greenish or yellowish discharge from your nose. RETURN IMMEDIATELY IF: 1. You cough up thick yellow, green, archer, or bloody sputum. 2. You have difficulty breathing, pain in your chest, or your skin or nails look archer or blue. 3. You have shaking chills or a temperature over 102 F (39 C). documented in this encounter [facility] 01-20-2024 History of Present illness Narrative Subjective HPI HPI Terri Burciaga is a 78 year old female who presents today for CC of cough, congestion, ear pain. This started 4 days ago. Has tried otc medication for relief. Symptoms are worsened by nothing. . .Patient presents with: Cough: Cough, sinus congestion, drainage and ear pain x 4 days PAST MEDICAL HISTORY Diagnosis Date Arrhythmia Benign neoplasm of colon Calculus of kidney Chest pain, unspecified non cardiac Esophageal reflux Esophagitis, unspecified Feeling of incomplete bladder emptying 09/23/2022 Granulomatous disease (HCC) History of recurrent UTIs HYPERLIPIDEMIA NEC/NOS 03/16/2009 HYPERTENSION NOS 03/10/2008 Mental disorder FRIEDA on CPAP Osteopenia BMD 12/12/2011 Sciatica Sjogren syndrome (HCC) PAST SURGICAL HISTORY Procedure Laterality Date ABDOMINAL SURGERY HX APPENDECTOMY HX COLONOSCOPY 1990s COLONOSCOPY FLX DX W/COLLJ SPEC WHEN PFRMD 01/11/2016 Colonoscopy COLSC FLX W/RMVL OF TUMOR POLYP LESION SNARE TQ 02/05/2012 repeat 5 years EGD 02/05/2012 ESOPHAGOGASTRODUODENOSCOPY TRANSORAL DIAGNOSTIC 10/16/2008 EGD ESOPHAGOGASTRODUODENOSCOPY TRANSORAL DIAGNOSTIC 01/11/2016 EGD LYSIS OF ADHESIONS SALPINX/OVARY x6 OOPHORECTOMY, PART/TOTAL UNILAT/BILAT bilateral salpingectomy and left oophorectomy REM LESION TRUNK,ARM,LEG > 4.0CM 07/11/2022 REMV LUNG,WEDGE RESECTION Left 07/30/2021 VATS wedge resection of left lower lobe wedge SKIN EXCISION 07/11/2022 anterior chest wall & left torso TOTAL ABDOMINAL HYSTERECT W/WO RMVL TUBE OVARY 11/09/1969 endometriosis, change in ovary, right oophorectomy VAGINAL HYSTERECTOMY ALLERGIES Cigarette Smoke, Gabapentin, Adhesive Tape (Rosins), Aleve [Naproxen Sodium], Ativan [Lorazepam], Cats, Lopressor [Metoprolol Tartrate], Nickel, Norvasc [Amlodipine Besylate], Sulfa (Sulfonamide Antibiotics), and Vioxx [Rofecoxib] MEDICATIONS triamterene-hydroCHLOROthiazide (DYAZIDE) 37.5-25 mg per capsule Take 1 capsule by mouth once daily. coenzyme Q10 (CO Q-10) 100 mg cap capsule Take 100 mg by mouth once daily. iv contrast (will be provided with radiology test) CT Urogram WO/W Inject, intravenously, once for 1 dose.No IV access, insert saline lock prior to the beginning of sedation, infusion, injection of imaging exam. Discontinue saline lock post exam. If Pt. has a central line or IVAD, may access for administration according to line specific nursing protocol. Once exam is complete flush line and de-access according to line specific nursing protocol in the CT contrast administration guidelines link. krill/om-3/dha/epa/phospho/ast (MAXIMUM RED KRILL OMEGA-3 ORAL) Take by mouth once daily. Azelastine HCl (OPTIVAR) 0.05 % ophthalmic solution Use 1 Drop in both eyes twice daily. cloNIDine HCl (CATAPRES) 0.1 mg tablet Take 1 tablet by mouth daily at bedtime. losartan (COZAAR) 100 mg tablet Take 1 tablet by mouth once daily. cyclobenzaprine (FLEXERIL) 5 mg tablet Take 1 tablet by mouth three times daily as needed. [id number] 1 mg-25 mg-12.5 mg-1 mg tab Take by mouth once daily. Vitamin E 1 mg, Vitamin A 1 mg, Collagen Support Vaginal Cream (CPD) Apply 1 g to affected area three times a week. pyridoxine, vitamin B6, (VITAMIN B6) 100 mg tablet Take 100 mg by mouth once daily. Magnesium 200 mg tab Take 1 tablet by mouth once daily. Garlic 100 mg tab Take 1 tablet by mouth once daily. Zinc 50 mg tab Take by mouth. Calcium magnesium esomeprazole (NEXIUM) 20 mg capsule Take 1 capsule by mouth DAILY (6 AM). BIOTIN ORAL Take by mouth once daily. diphenhydrAMINE HCl 12.5 mg chewable tablet Take 12.5 mg by mouth at bedtime as needed. Cholecalciferol, Vitamin D3, 25 mcg (1,000 unit) cap Take 1,000 Units by mouth once daily. cloNIDine HCl (CATAPRES) 0.1 mg tablet Take 1 tablet by mouth twice daily. (Patient not taking: Reported on 11/16/2023) ascorbic acid (VITAMIN C ORAL) Take by mouth once daily. elderberry fruit (ELDERBERRY ORAL) Take by mouth once daily. CALCIUM ORAL Take by mouth once daily. FAMILY HISTORY Problem Relation Age of Onset Hypertension Mother other (macular degeneration) Mother Coronary Artery Disease Father Stroke Father other (CABG) Father Coronary Artery Disease Sister Coronary Artery Disease Brother Ischemic Heart Disease Paternal Grandfather other (Peripheral Vascular Disease) Sister Hypertension Sister Hypertension Sister Hypertension Brother Hypertension Son Social History Tobacco Use Smoking status: Former Packs/day: 1.50 Years: 20.00 Additional pack years: 0.00 Total pack years: 30.00 Types: Cigarettes Quit date: 11/09/1980 Years since quittin.2 Smokeless tobacco: Never Tobacco comments: up to 3 PPD Vaping Use Vaping Use: Never used Substance Use Topics Alcohol use: Not Currently Drug use: Never Review of Systems Constitutional: Negative for fever. HENT: Positive for congestion and ear pain. Negative for ear discharge, nosebleeds and sore throat. Respiratory: Positive for cough. Negative for shortness of breath and wheezing. Musculoskeletal: Negative for neck pain. Skin: Negative for itching and rash. Objective Blood pressure 144/84, pulse 96, temperature 37.3 C (99.2 F), temperature source Tympanic, resp. rate 18, weight 83.8 kg (184 lb 11.9 oz), SpO2 99%. Physical Exam Constitutional: General: She is not in acute distress. Appearance: She is not toxic-appearing or diaphoretic. HENT: Head: Normocephalic and atraumatic. Right Ear: Hearing, tympanic membrane, ear canal and external ear normal. Left Ear: Hearing, tympanic membrane, ear canal and external ear normal. Nose: Nose normal. Mouth/Throat: Pharynx: Uvula midline. No pharyngeal swelling, oropharyngeal exudate, posterior oropharyngeal erythema or uvula swelling. Eyes: General: Lids are normal. No scleral icterus. Right eye: No discharge. Left eye: No discharge. Conjunctiva/sclera: Conjunctivae normal. Pupils: Pupils are equal, round, and reactive to light. Neck: Trachea: Trachea normal. Cardiovascular: Rate and Rhythm: Normal rate and regular rhythm. Heart sounds: Normal heart sounds. Pulmonary: Effort: Pulmonary effort is normal. Breath sounds: Normal breath sounds. Musculoskeletal: Cervical back: Normal range of motion and neck supple. Lymphadenopathy: Cervical: No cervical adenopathy. Right cervical: No superficial cervical adenopathy. Left cervical: No superficial cervical adenopathy. Skin: Findings: No rash. Neurological: Mental Status: She is alert and oriented to person, place, and time. ASSESSMENT/PLAN: 1. URI, acute - ICD9: 465.9, ICD10: J06.9 (primary diagnosis) - Discussed viral etiology and rationale for treatment. - Symptomatic treatment with prn analgesia - Supportive care with fluids and rest - Follow up in 3-5 days if symptoms persist or sooner if worsening of symptoms If positive for covid, not interested in oral treatment If positive for flu past treatment window. - COVID & INFLUENZA A/B & RSV NAAT, ROUTINE 2. Acute cough - ICD9: 786.2, ICD10: R05.1 - XR CHEST 2V FRONTAL/LAT IMPRESSION: Stable chronic changes on the left. Dictated by : MD Fabiana SAAVEDRA APRN.CIRCULAR RIPSAW OPERATOR documented in this encounter [facility] 12-10-2023 Instructions Maren Rhodes MD - 12/10/2023 2:31 PM EST Labs anytime We will call with results 3-6 mo follow up with KAYLEE Mcdaniel, 1 year with me documented in this encounter [facility] 12-10-2023 History of Present illness Narrative Images from the original note were not included. Rheumatology FOLLOW UP VISIT Date of Service: 12/10/2023 Patient: Terri Burciaga Medical Record: [id number] Primary Care Physician: Andre Santana MD Last Rheumatology visit: 11/28/2022 (with Maren Rhodes) Chief Complaint: Established Patient INTERVAL HISTORY Since last visit had kidney stones, declined cystoscopy Continued dryness in eyes and mouth, uses topicals, prescription eyedrops were overall too expensive with Restasis and xiidra, was put on azelastine per ophthalmology Has some constipation For many years has had pain in her left chest with deep inspiration since her surgery Follows with pulmonology ROS otherwise negative RHEUMATOLOGIC HISTORY Terri is RF negative - 15 (07/01/2022). Her most recent CHINMAY was positive (07/01/2022). HISTORY OF PRESENT ILLNESS 1. Sjogren's disease with manifestations of positive CHINMAY, positive SSA, sicca symptoms 2. CKD 3. FRIEDA 4. GERD 5. Hypertension 6. Atrial tachycardia 7. Left lower lung nodule status post biopsy complicated by pneumothorax resulting in VATS wedge resection demonstrating necrotizing granulomatous inflammation without fungal disease, follows with pulmonology Workup: 06/2022: CHINMAY 1: 160 SSA >8.0 Otherwise negative NEELAM ESR 41 CRP 1.3 Normal SPEP Normal CK Normal TSH Negative RF Negative Lyme Normal C3, C4 01/07/2023 DEXA: Lowest T-score -1.4 lumbar spine, FRAX 10% major, 1.8% hip Terri Burciaga is a 77 year old White female with a history of CKD, FRIEDA, GERD, hypertension, atrial tachycardia, low back pain with sciatica, osteopenia who presents to rheumatology clinic for evaluation of Sjogren's. Chart review reveals she was evaluated by PCP AMAN 07/01/2022 at which point she described polyarthralgia. Rheumatologic labs were drawn which demonstrated CHINMAY 1: 160, ESR 41, CRP 1.3, SSA greater than 8.0, normal C3 and C4, normal SPEP, CK 29, normal TSH. She was sent to rheumatology for evaluation of Sjogren's. No further work-up was done into her inflammatory markers. Today she presents to clinic alone. She states that she has a long history of back pain with right-sided sciatica. She has been doing physical therapy with minimal improvement. Unfortunately she took a fall a few months ago and landed on her bottom which has worsened her pain in the right hip. She also describes bilateral first CMC pain and bilateral fifth DIP pain with bony osteophytes. She has morning stiffness in the hands lasting a few minutes. She sometimes has knee pain but has never had injections. Rheumatologic review of systems notable for 22 pound unintentional weight loss over the past 4 months due to decreased appetite. She wonders if this is secondary to her tramadol. She has had years worth of jaw pain with jaw claudication secondary to TMJ. She gets intermittent sharp left jain pain. She has no visual changes, tongue claudication. She has dry eye for the past 6 to 7 years using [id number] eyedrops a few times a day. She has dry mouth with difficulty swallowing. She has constipation. She describes constant postsurgical pain in her left chest from her wedge resection. Her fingers turn white in the cold. She had 1 episode of photo sensitive rash 01/2021 described as red and itchy on her chest and arms. She has poor sleep and is noncompliant with her CPAP. She has easy fatigue and brain fog. She denies fevers, night sweats, history of uveitis, sores in her nose or mouth, malar rash, cough, nausea, vomiting, blood in her urine or stool, numbness/tingling. Pain Evaluation Pain Evaluation 10/23/2022 10/28/2022 08/03/2023 08/17/2023 08/25/2023 Pain Score 7 5 4 8 7 Location Back-Lower - Chest (No Data) Flank-Right Location Comment Leg-Right - left Under right ribs - Description Aching - - - Aching;Stabbing Duration (#) 4 - - - 4 Duration (Timeframe) Months - Months - Weeks Frequency Continuous - Continuous - Continuous Intervention Reposition;Relaxation;Positioning - - - - PATIENT-ENTERED DATA PROMIS Assessments No flowsheet data found. RAPID 3 [place] Activities of Daily Living No Data Dress self? - Get in and out of bed? - Walk outdoors? - Wash and dry body? - Get in and out of car? - RAPID 3 Disease Activity Weighed Score Levels: 0 - 1: Near Remission 1.3 - 2.0: Low Severity 2.3 - 4.0: Moderate Severity 4.3 - 10.0: High Severity No flowsheet data found. REVIEW OF SYSTEMS Complete ROS (HEENT, respiratory, cardiology, GI, , skin, psych, hematology, endocrine, neuro, musculoskeletal) negative except as noted in HPI. HISTORIES Past medical, surgical, family, and social history reviewed and notable changes since last visit include: Noted in HPI MEDICATIONS Current Outpatient Medications Medication Sig coenzyme Q10 (CO Q-10) 100 mg cap capsule Take 100 mg by mouth once daily. krill/om-3/dha/epa/phospho/ast (MAXIMUM RED KRILL OMEGA-3 ORAL) Take by mouth once daily. Azelastine HCl (OPTIVAR) 0.05 % ophthalmic solution Use 1 Drop in both eyes twice daily. cloNIDine HCl (CATAPRES) 0.1 mg tablet Take 1 tablet by mouth daily at bedtime. losartan (COZAAR) 100 mg tablet Take 1 tablet by mouth once daily. cyclobenzaprine (FLEXERIL) 5 mg tablet Take 1 tablet by mouth three times daily as needed. [id number] 1 mg-25 mg-12.5 mg-1 mg tab Take by mouth once daily. Magnesium 200 mg tab Take 1 tablet by mouth once daily. Garlic 100 mg tab Take 1 tablet by mouth once daily. esomeprazole (NEXIUM) 20 mg capsule Take 1 capsule by mouth DAILY (6 AM). BIOTIN ORAL Take by mouth once daily. diphenhydrAMINE HCl 12.5 mg chewable tablet Take 12.5 mg by mouth at bedtime as needed. Cholecalciferol, Vitamin D3, 25 mcg (1,000 unit) cap Take 1,000 Units by mouth once daily. triamterene-hydroCHLOROthiazide (DYAZIDE) 37.5-25 mg per capsule Take 1 capsule by mouth once daily. iv contrast (will be provided with radiology test) CT Urogram WO/W Inject, intravenously, once for 1 dose.No IV access, insert saline lock prior to the beginning of sedation, infusion, injection of imaging exam. Discontinue saline lock post exam. If Pt. has a central line or IVAD, may access for administration according to line specific nursing protocol. Once exam is complete flush line and de-access according to line specific nursing protocol in the CT contrast administration guidelines link. cloNIDine HCl (CATAPRES) 0.1 mg tablet Take 1 tablet by mouth twice daily. (Patient not taking: Reported on 11/16/2023) ascorbic acid (VITAMIN C ORAL) Take by mouth once daily. elderberry fruit (ELDERBERRY ORAL) Take by mouth once daily. CALCIUM ORAL Take by mouth once daily. Vitamin E 1 mg, Vitamin A 1 mg, Collagen Support Vaginal Cream (CPD) Apply 1 g to affected area three times a week. pyridoxine, vitamin B6, (VITAMIN B6) 100 mg tablet Take 100 mg by mouth once daily. Zinc 50 mg tab Take by mouth. Calcium magnesium ALLERGIES ALLERGIES Allergen Reactions Cigarette Smoke Shortness of Breath Gabapentin Intolerance Couldn't walk straight or control her muscles. Adhesive Tape (Deyanira* Itching Aleve [Naproxen Sod* GI Upset Ativan [Lorazepam] Intolerance depression Cats Lopressor [Metoprol* Mental Status Change Suicidal ideation Nickel Rash Norvasc [Amlodipine* Swelling Swelling to feet and ankles Sulfa (Sulfonamide * Intolerance severe headache Vioxx [Rofecoxib] GI Upset PHYSICAL EXAM VITAL SIGNS: BP 144/84 Pulse 82 Temp 97.8 Wt 0 lb (0.0kg) GENERAL: Alert and oriented, appears a stated age. In no acute distress. EYES: Anicteric sclerae, no conjunctival injection HENT: Normocephalic, atraumatic. Slightly dry oral mucosa NECK: No mass or asymmetry. No lymphadenopathy RESPIRATORY: Normal respiratory effort. Clear to auscultation bilaterally CARDIOVASCULAR: Regular in rate and rhythm without murmurs, rubs, or gallops ABDOMEN: Soft, nontender, nondistended NEUROLOGIC: No gross focal neurologic deficits. Cranial nerves II-XII grossly intact. SKIN: No rash, thickening, nodules, discoloration. Normal nails. MSK: Normal range of motion, no deformities, no swelling, and no tenderness in the hands, wrists, elbows, shoulders, spine, hips, knees, ankles, feet except as noted below: Squaring of CMC's, no evidence of inflammatory arthritis today LABS Reviewed in [facility], notable for: GFR downtrending over the past 6 months from 50s to 38 CBC Latest Ref Rng & Units 10/16/2021 05/08/2022 06/08/2023 08/17/2023 WBC 3.70 - 11.00 k/uL 6.22 5.94 6.17 6.95 HEMOGLOBIN 11.5 - 15.5 g/dL 14.6 14.6 13.5 14.6 HEMOGLOBIN, STEPHANIE 11.5 - 15.5 g/dL - - - - HEMATOCRIT 36.0 - 46.0 % 46.9(H) 47.2(H) 42.9 45.7 PLATELETS 150 - 400 k/uL 214 206 208 210 ABS NEUT (ANC) 1.45 - 7.50 k/uL 3.58 3.26 3.79 4.45 ABS LYMPH 1.00 - 4.00 k/uL 1.79 1.84 1.61 1.72 CMP Latest Ref Rng & Units 08/03/2023 08/17/2023 11/06/2023 11/12/2023 SODIUM 136 - 144 mmol/L 138 140 - 136 SODIUM, STEPHANIE 132 - 148 mmol/L - - - - SODIUM, STEPHANIE 132 - 148 mmol/L - - - - POTASSIUM 3.7 - 5.1 mmol/L 4.1 4.4 - 3.8 POTASSIUM, STEPHANIE 3.5 - 5.0 mmol/L - - - - CHLORIDE 97 - 105 mmol/L 103 103 - 100 CHLORIDE, STEPHANIE 98 - 110 mmol/L - - - - CO2 22 - 30 mmol/L 25 25 - 23 CO2, STEPHANIE 23.0 - 32.0 mmol/L - - - - GLUCOSE 74 - 99 mg/dL 98 98 - 96 GLUCOSE, STEPHANIE 65 - 100 mg/dL - - - - BUN 7 - 21 mg/dL 19 16 - 23(H) BUN, STEPHANIE 10 - 25 mg/dL - - - - CREATININE 0.58 - 0.96 mg/dL 1.16(H) 1.17(H) 1.63(H) 1.41(H) CREATININE (POCT) 0.7 - 1.4 mg/dL - - - - CREATININE, STEPHANIE 0.7 - 1.4 mg/dL - - - - CALCIUM, STEPHANIE 8.5 - 10.5 mg/dL - - - - CALCIUM, TOTAL 8.5 - 10.2 mg/dL 9.2 9.8 - 9.5 AST 13 - 35 U/L - 17 - - AST, STEPHANIE 7 - 40 U/L - - - - ALT 7 - 38 U/L - 11 - - ALT, STEPHANIE 0 - 45 U/L - - - - ALKALINE PHOSPHATASE 34 - 123 U/L - 82 - - Uric Acid Latest Ref Rng & Units 07/01/2022 URIC ACID 2.5 - 6.6 mg/dL 4.1 ESR, WSR Latest Ref Rng & Units 07/11/2020 07/01/2022 06/08/2023 08/17/2023 WSR 0 - 20 mm/hr 21(H) 41(H) 38(H) 31(H) CRP Latest Ref Rng & Units 07/11/2020 07/01/2022 06/08/2023 CRP <0.9 mg/dL 0.7 1.3(H) 0.7 C3, C4 Latest Ref Rng & Units 07/07/2022 C3 86 - 166 mg/dL 145 C4 13 - 46 mg/dL 35 CK Latest Ref Rng & Units 03/21/2021 07/07/2022 CK 42 - 196 U/L 49 29(L) RF and CCP Latest Ref Rng & Units 07/01/2022 RHEUMATOID FACTOR <16 IU/mL 15 Hepatitis Screen Latest Ref Rng & Units 07/14/2013 HEPAIGM NEGAT Negative HEPBCIGM NEGAT Negative HBSAGR NEGAT Negative Antibodies Latest Ref Rng & Units 12/24/2020 12/28/2020 07/26/2021 07/01/2022 CHINMAY Negative - - - Positive(A) CHINMAY TITER - - - - 1:160 CHINMAY PATTERN - - - - Nuclear coarse speckled DNA ANTIBODY W/CONFIRMATION <30 IU/mL - - - <12 ANTI-SM <1.0 AI - - - <0.2 SM ANTIBODY Negative - - - Negative RIBOSOMAL MAILROOM PERSONNEL AB <1.0 AI - - - <0.2 RIBOSOMAL MAILROOM PERSONNEL QUAL Negative - - - Negative CHROMATIN AB <1.0 AI - - - <0.2 CHROMATIN AB QUAL Negative - - - Negative SSA ANTIBODY QUAL Negative - - - Positive(A) ANTI-SSA <1.0 AI - - - >8.0(H) ANTI-SSB <1.0 AI - - - <0.2 MAILROOM PERSONNEL ANTIBODY QUAL Negative - - - Negative SCL-70 AB QUAL Negative - - - Negative SCL-70 ABS, EIA <1.0 AI - - - <0.2 CENTROMERE AB <1.0 AI - - - <0.2 CENTROMERE AB QUAL Negative - - - Negative KELY-1 ANTIBODY, IGG <1.0 AI - - - <0.2 KELY 1 ANTIBODY QUAL Negative - - - Negative PT SEC 9.7 - 13.0 sec 10.2 10.1 10.3 - PT INR 0.9 - 1.3 0.9 1.0 1.0 - PTT 23.0 - 32.4 sec - - 27.5 - Urinalysis Latest Ref Rng & Units 07/16/2023 08/17/2023 08/25/2023 11/06/2023 PROTEIN, URINE Trace, Negative 1+(A) - - - PROTEIN UA (POCT) Negative mg/dL 30(A) 100(A) 30(A) Trace(A) RBC, URINE 0-3 /HPF 11-25 /HPF(A) - - - IMAGING Reviewed in [facility], notable for: 11/05/2023 CT chest: 1. Interval improvement in linear opacities along the sutures in the LEFT lower lobe, favoring postoperative scarring. 2. Multiple sub-5 mm pulmonary nodules in both lungs are unchanged. No appreciable new or suspicious pulmonary nodules. 01/07/2023 DEXA: COMPARISON: December 12, 2011 LUMBAR SPINE: The bone mineral density from L1 through L4 is 0.895 grams per square centimeter which yields a T-score of -1.4. There has been a 2.4% interval decrease in bone mineral density. LEFT HIP: The bone mineral density of the total region of the hip is 0.911 grams per square centimeter which yields a T-score of -0.3. There has been a 4% interval increase in bone mineral density. LEFT FEMORAL NECK: The bone mineral density of the femoral neck is 0.730 grams per square centimeter which yields a T-score of -1.1. There has been a 1.5% interval decrease in bone mineral density. RIGHT HIP: The bone mineral density of the total region of the hip is 0.914 grams per square centimeter which yields a T-score of -0.2. There has been a 4.7% interval increase in bone mineral density. RIGHT FEMORAL NECK: The bone mineral density of the femoral neck is 0.702 grams per square centimeter which yields a T-score of -1.3. There has been a 2% interval decrease in bone mineral density. 10-year Fracture Risk (FRAX): Major osteoporotic fracture risk 10% Hip fracture risk 1.8% ASSESSMENT Terri Burciaga is a 78 year old White female with a history of CKD, FRIEDA, GERD, hypertension, atrial tachycardia, low back pain with sciatica, status post VATS wedge resection of lung with granulomatous disease nonspecified follows with pulmonology, osteopenia who presents to rheumatology clinic for follow-up of Sjogren's disease. At this time stable from Sjogren's perspective, no extraglandular disease. Discussed pilocarpine versus cevimeline for dryness including risks with sweating, lightheadedness, dizziness, low blood pressure. She does not want to try this due to already being sweaty. Continue conservative management otherwise with topicals. Discussed hydroxychloroquine as she does have fatigue, she notes a long history of allergies and intolerances to medicines and is not interested in trialing this at this time which is reasonable as she has no extraglandular involvement that may help with. Happy to start in the future at any time she would like. Risks discussed including nausea, headache, toxicities of retina, skin, muscle, and need for annual eye screening. Attempted osteoporosis history today, patient was late to appointment and did not have enough time to complete full osteoporosis history. Her bone density is osteopenia with low FRAX however she notes she might have broken her left ankle after mis-stepping and her right foot after mis-stepping a stair. Will need full osteoporosis history done at next visit. IMPRESSIONS Diagnoses: (M35.00) Sjogren's syndrome without extraglandular involvement (HCC) (primary encounter diagnosis) (Z13.820) Screening for osteoporosis (M85.80) Osteopenia, unspecified location PLAN 1. Annual Sjogren's labs anytime 2. No evidence of extraglandular disease for Sjogren's 3. Continue conservative management for sicca symptoms 4. Okay to trial hydroxychloroquine in the future anytime if she would like 5. Need to do for osteoporosis history as she may have had traumatic fracture of ankle, cannot find any verifying x-rays on chart review 6. Recommend age-appropriate cancer screening, defer to PCP 7. Follow-up 6 months LIZETTE Mcdaniel to establish care 1 hour slot to discuss Sjogren symptoms and assess osteopenia versus osteoporosis as fracture history is unclear, 1 year myself Orders this visit: Office Visit on 12/10/23 PROTEIN ELECTROPHORESIS SERUM W/INTERP KAPPA/IRVING,FREE,SER URINALYSIS, WITH MICROSCOPIC PROTEIN RANDOM UR SED RATE WESTERGREN C-REACTIVE PROTEIN (CRP) RHEUMATOID FACTOR BL IMMUNOFIXATION SCREEN, SERUM TSH BLD PTH INTACT BLD VITAMIN D 25 HYDROXY MAGNESIUM BLD PHOSPHORUS INORGANIC CALCIUM IONIZED BLOOD COMP METABOLIC PANEL CBC + DIFF Return in about 3 months (around 03/09/2024). Medical Decision Making: Problems: Moderate: 2+ stable chronic illnesses Data: Unique test result(s) reviewed: 3+ Unique test(s) ordered: 3+ Risk: Low: Low risk from testing/treatment Medical Decision Making Level: 4 - Moderate This note was partially generated with the assistance of Ensenda voice recognition software. An attempt was made to correct any dictation errors however there may be some incorrect words, spellings, and punctuation. Maren Rhodes MD Rheumatology Date: December 10, 2023 Time: 2:18 PM documented in this encounter [facility] 11-08-2023 Miscellaneous Notes Patient notified. Verbalized understanding. Please call and let patient know her urine culture did not show an infection. Recommend follow-up with PCP continued symptoms for blood in urine. documented in this encounter [facility] 10-19-2023 History of Present illness Narrative Images from the original note were not included. Darshan Abarca MD Interventional Cardiology [address] [place] [address] Chief Complaint Patient presents with: Established Patient Follow-Up HISTORY OF PRESENT ILLNESS: Ms. Burciaga is a 78 year old female seen in my office today for assessment and management patient has hypertensive heart disease with atrial tachycardia is doing well from the cardiac point of view asymptomatic denying chest pain and shortness of breath she had short few episodes 2 weeks ago lasted only few seconds blood pressure is well-controlled at home Cardiac Risk Factors age (male over 45, female over 55), hypertension, family history of CAD PAST MEDICAL HISTORY Diagnosis Date Arrhythmia Benign neoplasm of colon Calculus of kidney Chest pain, unspecified non cardiac Esophageal reflux Esophagitis, unspecified Feeling of incomplete bladder emptying 09/23/2022 Granulomatous disease (HCC) History of recurrent UTIs HYPERLIPIDEMIA NEC/NOS 03/16/2009 HYPERTENSION NOS 03/10/2008 Mental disorder FRIEDA on CPAP Osteopenia BMD 12/12/2011 Sciatica Sjogren syndrome (HCC) PAST SURGICAL HISTORY Procedure Laterality Date ABDOMINAL SURGERY HX APPENDECTOMY HX COLONOSCOPY COLONOSCOPY FLX DX W/COLLJ SPEC WHEN PFRMD 01/11/2016 Colonoscopy COLSC FLX W/RMVL OF TUMOR POLYP LESION SNARE TQ 02/05/2012 repeat 5 years EGD 02/05/2012 ESOPHAGOGASTRODUODENOSCOPY TRANSORAL DIAGNOSTIC 10/16/2008 EGD ESOPHAGOGASTRODUODENOSCOPY TRANSORAL DIAGNOSTIC 01/11/2016 EGD LYSIS OF ADHESIONS SALPINX/OVARY x6 OOPHORECTOMY, PART/TOTAL UNILAT/BILAT bilateral salpingectomy and left oophorectomy REM LESION TRUNK,ARM,LEG > 4.0CM 07/11/2022 REMV LUNG,WEDGE RESECTION Left 07/30/2021 VATS wedge resection of left lower lobe wedge SKIN EXCISION 07/11/2022 anterior chest wall & left torso TOTAL ABDOMINAL HYSTERECT W/WO RMVL TUBE OVARY 11/09/1969 endometriosis, change in ovary, right oophorectomy VAGINAL HYSTERECTOMY FAMILY HISTORY Problem Relation Age of Onset Hypertension Mother other (macular degeneration) Mother Coronary Artery Disease Father Stroke Father other (CABG) Father Coronary Artery Disease Sister Coronary Artery Disease Brother Ischemic Heart Disease Paternal Grandfather other (Peripheral Vascular Disease) Sister Hypertension Sister Hypertension Sister Hypertension Brother Hypertension Son Social History Tobacco Use Smoking status: Former Packs/day: 1.50 Years: 20.00 Additional pack years: 0.00 Total pack years: 30.00 Types: Cigarettes Quit date: 11/09/1980 Years since quittin.9 Smokeless tobacco: Never Tobacco comments: up to 3 PPD Vaping Use Vaping Use: Never used Substance Use Topics Alcohol use: Not Currently Drug use: Never ALLERGIES Allergen Reactions Cigarette Smoke [Ot* Cough, Itching, Shortness of Breath Adhesive Tape (Deyainra* Itching Aleve [Naproxen Sod* GI Upset Ativan [Lorazepam] Other: See Comments depression Cats Lopressor [Metoprol* Mental Status Change Nickel Rash Norvasc [Amlodipine* Swelling Swelling to feet and ankles Sulfa (Sulfonamide * severe headache Vioxx [Rofecoxib] GI Upset Medications: Current Outpatient Medications Medication Sig Dispense Refill triamterene-hydroCHLOROthiazide (DYAZIDE) 37.5-25 mg per capsule Take 1 capsule by mouth once daily. 30 capsule 5 coenzyme Q10 (CO Q-10) 100 mg cap capsule Take 100 mg by mouth once daily. iv contrast (will be provided with radiology test) CT Urogram WO/W Inject, intravenously, once for 1 dose.No IV access, insert saline lock prior to the beginning of sedation, infusion, injection of imaging exam. Discontinue saline lock post exam. If Pt. has a central line or IVAD, may access for administration according to line specific nursing protocol. Once exam is complete flush line and de-access according to line specific nursing protocol in the CT contrast administration guidelines link. 1 Each 0 krill/om-3/dha/epa/phospho/ast (MAXIMUM RED KRILL OMEGA-3 ORAL) Take by mouth once daily. Azelastine HCl (OPTIVAR) 0.05 % ophthalmic solution Use 1 Drop in both eyes twice daily. 3 mL 2 cloNIDine HCl (CATAPRES) 0.1 mg tablet Take 1 tablet by mouth twice daily. ascorbic acid (VITAMIN C ORAL) Take by mouth once daily. elderberry fruit (ELDERBERRY ORAL) Take by mouth once daily. CALCIUM ORAL Take by mouth once daily. cloNIDine HCl (CATAPRES) 0.1 mg tablet Take 1 tablet by mouth daily at bedtime. 90 tablet 3 losartan (COZAAR) 100 mg tablet Take 1 tablet by mouth once daily. 90 tablet 3 cyclobenzaprine (FLEXERIL) 5 mg tablet Take 1 tablet by mouth three times daily as needed. 30 tablet 2 [id number] 1 mg-25 mg-12.5 mg-1 mg tab Take by mouth once daily. Vitamin E 1 mg, Vitamin A 1 mg, Collagen Support Vaginal Cream (CPD) Apply 1 g to affected area three times a week. 20 g 3 pyridoxine, vitamin B6, (VITAMIN B6) 100 mg tablet Take 100 mg by mouth once daily. Magnesium 200 mg tab Take 1 tablet by mouth once daily. Garlic 100 mg tab Take 1 tablet by mouth once daily. Zinc 50 mg tab Take by mouth. Calcium magnesium esomeprazole (NEXIUM) 20 mg capsule Take 1 capsule by mouth DAILY (6 AM). BIOTIN ORAL Take by mouth once daily. diphenhydrAMINE HCl 12.5 mg chewable tablet Take 12.5 mg by mouth at bedtime as needed. Cholecalciferol, Vitamin D3, 25 mcg (1,000 unit) cap Take 1,000 Units by mouth once daily. No current facility-administered medications for this visit. Review of Systems Constitutional: Negative for chills, diaphoresis, fever, malaise/fatigue and weight loss. HENT: Negative for congestion, ear discharge, ear pain, hearing loss, nosebleeds, sinus pain, sore throat and tinnitus. Eyes: Negative for blurred vision, double vision, photophobia, pain, discharge and redness. Respiratory: Negative for cough, hemoptysis, sputum production, shortness of breath, wheezing and stridor. Cardiovascular: Positive for palpitations. Negative for chest pain, orthopnea, claudication, leg swelling and PND. Gastrointestinal: Negative for abdominal pain, blood in stool, constipation, diarrhea, heartburn, melena, nausea and vomiting. Genitourinary: Negative for dysuria, flank pain, frequency, hematuria and urgency. Musculoskeletal: Negative for back pain, falls, joint pain, myalgias and neck pain. Skin: Negative for itching and rash. Neurological: Negative for dizziness, tingling, tremors, sensory change, speech change, focal weakness, seizures, loss of consciousness, weakness and headaches. Endo/Heme/Allergies: Negative for environmental allergies and polydipsia. Does not bruise/bleed easily. Psychiatric/Behavioral: Negative for depression, hallucinations, memory loss, substance abuse and suicidal ideas. The patient is not nervous/anxious and does not have insomnia. Physical Examination: Vitals:BP 150/86 Pulse 77 Resp 16 Wt 185 lb (83.9kg) SpO2 98% BP w/Orthostatic Vitals Date and Time Orthostatic BP Orthostatic Pulse BP Pulse BP Position BP Site BP Cuff Size 10/19/23 1434 -- -- 150/86 77 Sitting Right Arm Large Adult Peak Flow Date and Time PF Resp 10/19/23 1434 -- 16 Last 2 Encounter Wt Readings: Date: Wt: 10/19/2023 83.9 kg (185 lb) 09/08/2023 86.2 kg (190 lb) Physical Exam Constitutional: General: She is not in acute distress. Appearance: She is not diaphoretic. HENT: Head: Normocephalic and atraumatic. Right Ear: External ear normal. Left Ear: External ear normal. Nose: Nose normal. Mouth/Throat: Pharynx: Oropharynx is clear. Eyes: General: Right eye: No discharge. Left eye: No discharge. Conjunctiva/sclera: Conjunctivae normal. Pupils: Pupils are equal, round, and reactive to light. Cardiovascular: Rate and Rhythm: Normal rate and regular rhythm. Heart sounds: Normal heart sounds, S1 normal and S2 normal. No murmur heard. No friction rub. No gallop. No S3 or S4 sounds. Pulmonary: Effort: Pulmonary effort is normal. No respiratory distress. Breath sounds: Normal breath sounds. No wheezing or rales. Chest: Chest wall: No tenderness. Musculoskeletal: General: Normal range of motion. Cervical back: Normal range of motion and neck supple. Skin: General: Skin is warm and dry. Neurological: Mental Status: She is alert and oriented to person, place, and time. Psychiatric: Mood and Affect: Mood normal. Thought Content: Thought content normal. Pertinent Labs: CBC: Hemoglobin (g/dL) Date Value 08/17/2023 14.6 10/16/2021 14.6 Hematocrit (%) Date Value 08/17/2023 45.7 10/16/2021 46.9 WBC (k/uL) Date Value 08/17/2023 6.95 10/16/2021 6.22 Platelet Count (k/uL) Date Value 08/17/2023 210 10/16/2021 214 BMP: Glucose (mg/dL) Date Value 08/17/2023 98 10/16/2021 93 Potassium (mmol/L) Date Value 08/17/2023 4.4 10/16/2021 4.0 Sodium (mmol/L) Date Value 08/17/2023 140 10/16/2021 138 Chloride (mmol/L) Date Value 08/17/2023 103 10/16/2021 102 CO2 (mmol/L) Date Value 08/17/2023 25 10/16/2021 25 Creatinine (mg/dL) Date Value 08/17/2023 1.17 10/16/2021 1.05 BUN (mg/dL) Date Value 08/17/2023 16 10/16/2021 16 Anion Gap (mmol/L) Date Value 08/17/2023 12 10/16/2021 11 Calcium (mg/dL) Date Value 10/16/2021 9.5 Calcium, Total (mg/dL) Date Value 08/17/2023 9.8 INR: Lipid Profile: Cholesterol, Total Date Value Ref Range Status 05/08/2022 209 (H) <200 mg/dL Final Comment: <200 mg/dL, Desirable 200-239 mg/dL, Borderline high >239 mg/dL, High HDL Cholesterol Date Value Ref Range Status 05/08/2022 50 >39 mg/dL Final Comment: 40-59 mg/dL, Acceptable >59 mg/dL, High: Negative risk factor for coronary heart disease <40 mg/dL, Low: Positive risk factor for coronary heart disease LDL Cholesterol Date Value Ref Range Status 05/08/2022 138 (H) <100 mg/dL Final Comment: <100 mg/dL, Optimal 100-129 mg/dL, Near optimal/above optimal 130-159 mg/dL, Borderline high 160-189 mg/dL, High >189 mg/dL, Very high Secondary prevention optimal LDL Cholesterol levels are recommended to be < 70 mg/dL Triglyceride Date Value Ref Range Status 05/08/2022 104 <150 mg/dL Final Comment: <150 mg/dL, Normal 150-199 mg/dL, Borderline high 200-499 mg/dL, High >499 mg/dL, Very high Hemoglobin A1C: No results found for: HGBA1C TSH: No results found for: TSHREFL Prior Cardiac Testing none Assessment and Plan: 78 years old female patient with hypertensive heart disease and atrial ASSESSMENT/PLAN: 1. Primary hypertension - ICD9: 401.9, ICD10: I10 (primary diagnosis) - Controlled - Continue current medications - Recommend home blood pressure monitoring, to bring results to next visit - Encouraged sodium restriction, DASH or Mediterranean diet - Recommend regular aerobic exercise 2. Atrial tachycardia - ICD9: 427.89, ICD10: I47.19 Occasional few episodes continue medical therapy 3. Mixed hyperlipidemia - ICD9: 272.2, ICD10: E78.2 - Controlled - Continue current medications - Counseled on healthy diet and regular exercise Darshan Abarca MD Follow up planning: One year Electronically signed by Darshan Abarca MD on October 19, 2023, 2:54 PM The above note was partially created using a dictation recognition software. A reasonable attempt has been made to correct any errors. documented in this encounter [facility] 09-22-2023 History of Present illness Narrative Radiology Service Progress Note DATE OF SERVICE: September 22, 2023 TIME: 3:57 PM PATIENT IDENTITY VERIFICATION COMPLETED USING TWO (2) STANDARD IDENTIFIERS: Name and Date of confirmed by patient verbally. FALL SCREENING: Has the patient had 2 falls in the last year or 1 fall with injury or currently using an Ambulatory Assistive Device (Walker, Cane, Wheelchair, Crutches, etc.)? No PATIENT GENDER DATA: Female. status: : No status: NO. PATIENT RELEVANT IMPLANT DATA REVIEWED: Yes ALLERGIES: Reviewed and unchanged CONTRAST ALLERGY: NO. EXAM: CT -CONTRAST INDUCED NEPHROPATHY RISK FACTORS: Patient age > 60 years CREATININE: Creatinine Date Value Ref Range Status 08/17/2023 1.17 (H) 0.58 - 0.96 mg/dL Final 08/03/2023 1.16 (H) 0.58 - 0.96 mg/dL Final 06/29/2023 1.15 (H) 0.58 - 0.96 mg/dL Final Estimated Glomerular Filtration Rate Date Value Ref Range Status 08/17/2023 48 (L) >=60 mL/min/1.73m Final Comment: Estimated Glomerular Filtration Rate (eGFR) is calculated using the 2020 CKD-EPI creatinine equation. This equation utilizes serum creatinine, sex, and age as parameters. The creatinine assay has traceable calibration to isotope dilution-mass spectrometry. Refer to KDIGO guidelines for clinical interpretation. In patients with unstable renal function, e.g. those with acute kidney injury, the eGFR may not accurately reflect actual GFR. eGFR- Date Value Ref Range Status 10/16/2021 >60 Final P.O.C.T. RESULTS: POC done: Yes, See Lab Tab September 22, 2023 TREATMENT: N/A PERIPHERAL IV DATA: Ambulatory: A peripheral IV was started in the Left antecubital site with a Angio cath: 22 gauge. RADIOLOGY DEPARTMENT: CT; Exam(s) Completed: Abdomen/Pelvis SIGNATURE: RT Melanie(Veda) PATIENT NAME: Terri Burciaga DATE: September 22, 2023 TIME: 3:57 PM documented in this encounter [facility] 09-08-2023 History of Present illness Narrative 77 year old female with c/o concerns about blood pressure HTN: Current meds: Clonidine 0.1mg twice a day Losartan 100mg daily Potassium chloride ER 20mEq Patient is compliant with meds Yes Monitors bp at home: 157/88. If yes, readings: Denies side effects: Yes. Chest pain: Continued left lateral and posterior chest pain over the area for VATS procedure. Nothing new. Dyspnea: No. Edema: No. Palpitations: No. Syncope: No. Headache: No. Dizziness: No. Last 14 BP Last 14 Encounter BP Readings: Date: BP: 09/08/2023 152/80 08/25/2023 166/98[Evan notified of blood pressure.[ 08/17/2023 144/88 08/17/2023 144/88 08/03/2023 138/88 07/16/2023 138/88 07/02/2023 130/82 06/17/2023 163/86[RUTH BP[ 06/02/2023 122/76 11/28/2022 122/86 10/20/2022 134/78 09/15/2022 138/70 08/28/2022 112/64 08/11/2022 122/74 Last 2 Encounter Wt Readings: Date: Wt: 09/08/2023 86.2 kg (190 lb) 08/25/2023 87 kg (191 lb 12.8 oz) Urologist started Estrace cream. Had concerns about using it so she been very hesitant. We discussed this and I encouraged her to continue. HISTORIES FAMILY HISTORY Problem Relation Age of Onset Hypertension Mother other (macular degeneration) Mother Coronary Artery Disease Father Stroke Father other (CABG) Father Coronary Artery Disease Sister Coronary Artery Disease Brother Ischemic Heart Disease Paternal Grandfather other (Peripheral Vascular Disease) Sister Hypertension Sister Hypertension Sister Hypertension Brother Hypertension Son PAST MEDICAL HISTORY Diagnosis Date Arrhythmia Benign neoplasm of colon Calculus of kidney Chest pain, unspecified non cardiac Esophageal reflux Esophagitis, unspecified Feeling of incomplete bladder emptying 09/23/2022 Granulomatous disease (HCC) History of recurrent UTIs HYPERLIPIDEMIA NEC/NOS 03/16/2009 HYPERTENSION NOS 03/10/2008 Mental disorder FRIEDA on CPAP Osteopenia BMD 12/12/2011 Sciatica Sjogren syndrome (HCC) PAST SURGICAL HISTORY Procedure Laterality Date ABDOMINAL SURGERY HX APPENDECTOMY HX COLONOSCOPY COLONOSCOPY FLX DX W/COLLJ SPEC WHEN PFRMD 01/11/2016 Colonoscopy COLSC FLX W/RMVL OF TUMOR POLYP LESION SNARE TQ 02/05/2012 repeat 5 years EGD 02/05/2012 ESOPHAGOGASTRODUODENOSCOPY TRANSORAL DIAGNOSTIC 10/16/2008 EGD ESOPHAGOGASTRODUODENOSCOPY TRANSORAL DIAGNOSTIC 01/11/2016 EGD LYSIS OF ADHESIONS SALPINX/OVARY x6 OOPHORECTOMY, PART/TOTAL UNILAT/BILAT bilateral salpingectomy and left oophorectomy REM LESION TRUNK,ARM,LEG > 4.0CM 07/11/2022 REMV LUNG,WEDGE RESECTION Left 07/30/2021 VATS wedge resection of left lower lobe wedge SKIN EXCISION 07/11/2022 anterior chest wall & left torso TOTAL ABDOMINAL HYSTERECT W/WO RMVL TUBE OVARY 11/09/1969 endometriosis, change in ovary, right oophorectomy VAGINAL HYSTERECTOMY Social History Tobacco Use Smoking status: Former Packs/day: 1.50 Years: 20.00 Additional pack years: 0.00 Total pack years: 30.00 Types: Cigarettes Quit date: 11/09/1980 Years since quittin.8 Smokeless tobacco: Never Tobacco comments: up to 3 PPD Vaping Use Vaping Use: Never used Substance Use Topics Alcohol use: Not Currently Drug use: Never ACTIVE PROBLEM LIST Lipoma of Unspecified Site Peripheral Vertigo, Unspecified Essential Hypertension With Goal Blood Pressure Less Than 140/90 Esophageal Reflux Mixed Hyperlipidemia Depression Nocturnal Muscle Cramps Obesity Osteopenia History of Colon Polyps Dry Eye Syndrome Nuclear Sclerosis of Both Eyes Blepharitis of Both Upper and Lower Eyelid of Right Eye Prediabetes 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 Vitreous Floaters of Both Eyes Stage 3b Chronic Kidney Disease (Hcc) Meibomian Gland Dysfunction (Mgd) of Upper and Lower Lids of Both Eyes Punctate Keratitis, Bilateral Frieda (Obstructive Sleep Apnea) Nodule of Left Lung Gallstones Delayed Sleep Phase Syndrome Pneumothorax of Left Lung After Biopsy Obesity, Class II, Bmi 35-39.9 Atrial Tachycardia Mitral Valve Disease Lung Nodule Acute Post-Operative Pain Anxiety Thyroid Nodule Granulomatous Disease (Hcc) Feeling of Incomplete Bladder Emptying H/O Senile Atrophic Vaginitis Sjoegren Syndrome (Hcc) Current Outpatient Medications Medication Sig Dispense Refill coenzyme Q10 (CO Q-10) 100 mg cap capsule Take 100 mg by mouth once daily. iv contrast (will be provided with radiology test) CT Urogram WO/W Inject, intravenously, once for 1 dose.No IV access, insert saline lock prior to the beginning of sedation, infusion, injection of imaging exam. Discontinue saline lock post exam. If Pt. has a central line or IVAD, may access for administration according to line specific nursing protocol. Once exam is complete flush line and de-access according to line specific nursing protocol in the CT contrast administration guidelines link. 1 Each 0 krill/om-3/dha/epa/phospho/ast (MAXIMUM RED KRILL OMEGA-3 ORAL) Take by mouth once daily. Azelastine HCl (OPTIVAR) 0.05 % ophthalmic solution Use 1 Drop in both eyes twice daily. 3 mL 2 cloNIDine HCl (CATAPRES) 0.1 mg tablet Take 1 tablet by mouth twice daily. ascorbic acid (VITAMIN C ORAL) Take by mouth once daily. elderberry fruit (ELDERBERRY ORAL) Take by mouth once daily. CALCIUM ORAL Take by mouth once daily. cloNIDine HCl (CATAPRES) 0.1 mg tablet Take 1 tablet by mouth daily at bedtime. 90 tablet 3 losartan (COZAAR) 100 mg tablet Take 1 tablet by mouth once daily. 90 tablet 3 potassium chloride ER (KLOR-CON) 20 mEq tablet Take 1 tablet by mouth twice daily. 180 tablet 3 hydroCHLOROthiazide 12.5 mg capsule Take 1 capsule by mouth once daily. 90 capsule 3 cyclobenzaprine (FLEXERIL) 5 mg tablet Take 1 tablet by mouth three times daily as needed. 30 tablet 2 [id number] 1 mg-25 mg-12.5 mg-1 mg tab Take by mouth once daily. Vitamin E 1 mg, Vitamin A 1 mg, Collagen Support Vaginal Cream (CPD) Apply 1 g to affected area three times a week. 20 g 3 pyridoxine, vitamin B6, (VITAMIN B6) 100 mg tablet Take 100 mg by mouth once daily. Magnesium 200 mg tab Take 1 tablet by mouth once daily. Garlic 100 mg tab Take 1 tablet by mouth once daily. Zinc 50 mg tab Take by mouth. Calcium magnesium esomeprazole (NEXIUM) 20 mg capsule Take 1 capsule by mouth DAILY (6 AM). BIOTIN ORAL Take by mouth once daily. diphenhydrAMINE HCl 12.5 mg chewable tablet Take 12.5 mg by mouth at bedtime as needed. Cholecalciferol, Vitamin D3, 25 mcg (1,000 unit) cap Take 1,000 Units by mouth once daily. No current facility-administered medications for this visit. Covid-19 Vaccine(1) Never done BP Controlled (<130/80) Never done RSV Vaccine(1 - 1-dose 60+ series) Never done Shingrix Vaccine(2 of 3) due on 07/09/2016 DTaP,Tdap,Td Vaccine(2 - Td or Tdap) due on 04/23/2017 Advance Directive Discussion due on 11/09/2022 Influenza Vaccine(1) due on 07/10/2023 EXAM: BP 152/80 Pulse 81 Resp 16 Wt 86.2 kg (190 lb) SpO2 97% BMI 38.38 kg/m Pleasant obese adult woman in no acute distress. Alert and oriented all spheres. Normal affect and cognition. Speech normal. No deficits to learning or comprehension. Skin warm, dry, pink to lips and nailbeds. Normal turgor. Respirations regular and unlabored. HEENT: NCAT. No scleral icterus or conjunctival injection. TM's clear. Nose and oropharynx free from injection or lesion. Oral membranes moist and pink. No cervical lymph nodes. Thyroid non-tender, no masses, or enlargement. Carotids pulses 2+/4+ without bruits. No JVD with HOB at 30 degrees. Chest is normal shape. Lungs are clear to all alcantar with good air exchange through out. Tender over posterior chest wall in the area of her scar, still feels somewhat nodular. She is dull on percussion in the left base. HRRR without murmur or gallop. No lifts, heaves, or rubs. Extrem: no clubbing or cyanosis. Edema: none. Extremities are warm and pink with prompt capillary refill. ASSESSMENT/PLAN: 1. Hypertension, essential - ICD9: 401.9, ICD10: I10 - Uncontrolled - Continue current medications - Start dyazide 37.5-25mg daily and monitor in 4 weeks. - Recommend home blood pressure monitoring, to bring results to next visit - Encouraged sodium restriction, DASH or Mediterranean diet - Recommend regular aerobic exercise Luc Faustin PA-C documented in this encounter [facility] 08-28-2023 Miscellaneous Notes Called patient. Verified name and date of . Informed- verbalizes understanding. Kamla Kerr LPN Please notify patient that his Urine Cytology showed Atypical Cells these are NOT cancer cells, but does require investigation with the full workup to be completed Urine Culture - Negative RANDY Landin, AMAN GARCIA documented in this encounter [facility] 08-25-2023 Instructions Evan Johnson PA-C - 08/25/2023 5:[address] Urogram to be scheduled at [facility] Cystoscopy to scheduled at [facility] - Urology ( they will contact patient # [phone] Urine Culture -- Pending Urine Cytology- - Pending After hematuria work-up if negative we will discuss Atrophic Vaginitis therapy with Topical Estrogen cream documented in this encounter [facility] 08-25-2023 History of Present illness Narrative Images from the original note were not included. [facility] ESTABLISHED PATIENT CLINIC NOTE Some elements copied from his previous note, which have been updated where appropriate, and all reflect current medical decision making from date of this visit. SERVICE DATE: 08/25/2023 SERVICE TIME: 4:32 PM NAME: Terri Burciaga CHIEF COMPLAINT: Microscopic Hematuria HISTORY OF PRESENT ILLNESS: Terri Burciaga is a 77 year old female an established patient following up for Microscopic Hematuria for that last several Urine samples The patient reports no gross hematuria, but several UA's with microscopic RBC's we discussed need for hematuria work-up We discussed the need for full hematuria workup due to the Gross Blood in the urine. These tests and procedures will be ordered today. After hematuria work-up if negative we will discuss Atrophic Vaginitis therapy with Topical Estrogen cream LUTS: DYSURIA: no URGENCY: No FREQUENCY:6 per day NOCTURIA: 0 per night STRAINING TO VOID: No EMPTIES COMPLETELY: Yes UTI: No GROSS HEMATURIA: no UA DIPSTICK POSITIVE ONLY: yes Other symptoms: LABS: Hematocrit (%) Date Value 08/17/2023 45.7 06/08/2023 42.9 05/08/2022 47.2 10/16/2021 46.9 08/21/2021 44.3 08/01/2021 39.0 07/31/2021 43.9 07/31/2021 Unable to assay. Specimen incorrectly identified. No results found for: PSA No results found for: TESTOST No results found for: PSA Creatinine Date Value Ref Range Status 08/17/2023 1.17 (H) 0.58 - 0.96 mg/dL Final 08/03/2023 1.16 (H) 0.58 - 0.96 mg/dL Final 06/29/2023 1.15 (H) 0.58 - 0.96 mg/dL Final 06/17/2023 1.09 (H) 0.58 - 0.96 mg/dL Final MEDICATIONS: coenzyme Q10 (CO Q-10) 100 mg cap capsule Take 100 mg by mouth once daily. krill/om-3/dha/epa/phospho/ast (MAXIMUM RED KRILL OMEGA-3 ORAL) Take by mouth once daily. Azelastine HCl (OPTIVAR) 0.05 % ophthalmic solution Use 1 Drop in both eyes twice daily. ascorbic acid (VITAMIN C ORAL) Take by mouth once daily. elderberry fruit (ELDERBERRY ORAL) Take by mouth once daily. CALCIUM ORAL Take by mouth once daily. cloNIDine HCl (CATAPRES) 0.1 mg tablet Take 1 tablet by mouth daily at bedtime. losartan (COZAAR) 100 mg tablet Take 1 tablet by mouth once daily. cyclobenzaprine (FLEXERIL) 5 mg tablet Take 1 tablet by mouth three times daily as needed. [id number] 1 mg-25 mg-12.5 mg-1 mg tab Take by mouth once daily. Vitamin E 1 mg, Vitamin A 1 mg, Collagen Support Vaginal Cream (CPD) Apply 1 g to affected area three times a week. Magnesium 200 mg tab Take 1 tablet by mouth once daily. Garlic 100 mg tab Take 1 tablet by mouth once daily. Zinc 50 mg tab Take by mouth. Calcium magnesium esomeprazole (NEXIUM) 20 mg capsule Take 1 capsule by mouth DAILY (6 AM). BIOTIN ORAL Take by mouth once daily. diphenhydrAMINE HCl 12.5 mg chewable tablet Take 12.5 mg by mouth at bedtime as needed. Cholecalciferol, Vitamin D3, 25 mcg (1,000 unit) cap Take 1,000 Units by mouth once daily. cloNIDine HCl (CATAPRES) 0.1 mg tablet Take 1 tablet by mouth twice daily. potassium chloride ER (KLOR-CON) 20 mEq tablet Take 1 tablet by mouth twice daily. hydroCHLOROthiazide 12.5 mg capsule Take 1 capsule by mouth once daily. pyridoxine, vitamin B6, (VITAMIN B6) 100 mg tablet Take 100 mg by mouth once daily. PAST MEDICAL HISTORY: PAST MEDICAL HISTORY Diagnosis Date Arrhythmia Benign neoplasm of colon Calculus of kidney Chest pain, unspecified non cardiac Esophageal reflux Esophagitis, unspecified Feeling of incomplete bladder emptying 09/23/2022 Granulomatous disease (HCC) History of recurrent UTIs HYPERLIPIDEMIA NEC/NOS 03/16/2009 HYPERTENSION NOS 03/10/2008 Mental disorder FRIEDA on CPAP Osteopenia BMD 12/12/2011 Sciatica Sjogren syndrome (HCC) PAST SURGICAL HISTORY: PAST SURGICAL HISTORY Procedure Laterality Date ABDOMINAL SURGERY HX APPENDECTOMY HX COLONOSCOPY COLONOSCOPY FLX DX W/COLLJ SPEC WHEN PFRMD 01/11/2016 Colonoscopy COLSC FLX W/RMVL OF TUMOR POLYP LESION SNARE TQ 02/05/2012 repeat 5 years EGD 02/05/2012 ESOPHAGOGASTRODUODENOSCOPY TRANSORAL DIAGNOSTIC 10/16/2008 EGD ESOPHAGOGASTRODUODENOSCOPY TRANSORAL DIAGNOSTIC 01/11/2016 EGD LYSIS OF ADHESIONS SALPINX/OVARY x6 OOPHORECTOMY, PART/TOTAL UNILAT/BILAT bilateral salpingectomy and left oophorectomy REM LESION TRUNK,ARM,LEG > 4.0CM 07/11/2022 REMV LUNG,WEDGE RESECTION Left 07/30/2021 VATS wedge resection of left lower lobe wedge SKIN EXCISION 07/11/2022 anterior chest wall & left torso TOTAL ABDOMINAL HYSTERECT W/WO RMVL TUBE OVARY 11/09/1969 endometriosis, change in ovary, right oophorectomy VAGINAL HYSTERECTOMY FAMILY HISTORY: FAMILY HISTORY Problem Relation Age of Onset Hypertension Mother other (macular degeneration) Mother Coronary Artery Disease Father Stroke Father other (CABG) Father Coronary Artery Disease Sister Coronary Artery Disease Brother Ischemic Heart Disease Paternal Grandfather other (Peripheral Vascular Disease) Sister Hypertension Sister Hypertension Sister Hypertension Brother Hypertension Son SOCIAL HISTORY: Social Connections: Not on file REVIEW OF SYSTEMS: GENERAL: No fever, chills, weight loss, or fatigue. All other systems reviewed and are negative PHYSICAL EXAMINATION: Blood pressure 166/98, pulse 74, temperature 36.7 C (98 F), temperature source Temporal, resp. rate 14, height 149.9 cm (4' 11), weight 87 kg (191 lb 12.8 oz), SpO2 100 %. GENERAL: WNL nutrition, no deformities, healthy appearing PROBLEM LIST REVIEW: Yes LABS: Results for orders placed or performed in visit on 08/25/23 UA DIP, URINE (POC) Result Value Ref Range GLUCOSE UA (POCT) Negative Negative mg/dL BILIRUBIN UA (POCT) Negative Negative KETONE UA (POCT) Negative Negative mg/dL SPECIFIC GRAVITY UA (POCT) 1.010 1.005 - 1.030 HEMOGLOBIN/BLOOD UA (POCT) Moderate (A) Negative PH UA (POCT) 7.0 4.5 - 8.0 PROTEIN UA (POCT) 30 (A) Negative mg/dL UROBILINOGEN UA (POCT) 0.2 Normal E.U./dL NITRITE UA (POCT) Negative Negative LEUKOCYTES UA (POCT) Negative Negative COLOR UA (POCT) Light yellow CLARITY UA (POCT) Clear Urine Culture - Pending Urine Cytology - Pending PROCEDURES: IMAGING: CTU - Pending IMPRESSION/PLAN: 77 year old female with 1. Microscopic hematuria - ICD9: 599.72, ICD10: R31.29 CT Urogram to be scheduled at [facility] Cystoscopy to scheduled at [facility] - Urology ( they will contact patient # [phone] Urine Culture -- Pending Urine Cytology- - Pending After hematuria work-up if negative we will discuss Atrophic Vaginitis therapy with Topical Estrogen cream RANDY Landin, [place], PAMiguel documented in this encounter [facility] 08-19-2023 Miscellaneous Notes Pt called and is notified of providers message and instructions. Pt voices understanding. Shira Clemons, [place] If over the counter medications do not help she would need to be evaluated in the ER. 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 Patient said what am I to do for the pain, tylenol does not touch it. Patient said right upper quadrant pain, she can not take a deep breath. Please advise ----- Message from Angelika Castelan APRN.KIET sent at 08/19/2023 4:02 PM EDT ----- Please let patient know shows gallstones with no inflammation. Small live cyst which needs no further imaging. Angelika Castelan APRN.CNP documented in this encounter [facility] 08-19-2023 History of Present illness Narrative Radiology Service Progress Note PATIENT NAME: Terri Burciaga DATE OF SERVICE: August 19, 2023 TIME: 4:50 PM PATIENT IDENTITY VERIFICATION COMPLETED USING TWO (2) IDENTIFIERS: Name and Date of confirmed by patient verbally. FALL SCREENING: Has the patient had 2 falls in the last year or 1 fall with injury or currently using an Ambulatory Assistive Device (Walker, Cane, Wheelchair, Crutches, etc.)? No PATIENT GENDER DATA: Female. status: : No status: NO. PATIENT RELEVANT IMPLANT DATA REVIEWED: Not Applicable RADIOLOGY DEPARTMENT: Ultrasound PERIPHERAL IV DATA: Not applicable SIGNED BY: Samreen Feliciano RDMS RVT August 19, 2023 4:50 PM documented in this encounter [facility] 08-18-2023 Miscellaneous Notes Pt called and is notified of providers results and instructions. Pt voices understanding. Shira Clemons, RN As we discussed yesterday her UA shows blood and the protein level is elevated which can be seen in uncontrolled blood pressure. She should keep her appointment with urology to discuss in more detail Angelika Castelan APRN.CNP Images from the original note were not included. Patient contacted and given provider's message below regarding recent lab results. Pt asking Angelika if can advise more specifically on her abnormal UA Dip? Thank you. COPIED: Result Notes Angelika Castelan APRN.CNP 08/18/2023 7:33 AM EDT Kidney function decreased but stable from previous ones- recommend low salt diet, stay well hydrate with water and avoid NSAID products. Inflammatory marker slightly elevated but better from previous ones. CBC with diff normal Angelika Castelan APRN.CNP documented in this encounter [facility] 08-17-2023 Instructions Angelika Castelan APRN.CNP - 08/17/2023 11:55 AM EDT Continue bland diet If pain increase or you develop fevers or vomiting go to ER documented in this encounter [facility] 08-17-2023 History of Present illness Narrative 08/17/2023 Patient presents with: Pain: Right side under ribs x3 days SUBJECTIVE: This is a 77 year old that is here today for Above Complaints.. Reports pain under right rib care for the last three days- hurts to take a deep breath. Also aggravated by movement and eating. Pain described as rated 7/10 when sitting and 9/10 with aggravating features. Admits to SOB however this has been ongoing for some time and has not worsened. Admits to urinary burning, pressure and frequency however this is not new and she will be following up with urology soon. Denies fevers, chills, dyspnea, chest pain, nausea vomiting, diarrhea, constipation, hematochezia, melana or hematuria Component Latest Ref Rng & Units 08/17/2023 GLUCOSE UA (POCT) Negative mg/dL Negative BILIRUBIN UA (POCT) Negative Negative KETONE UA (POCT) Negative mg/dL Negative SPECIFIC GRAVITY UA (POCT) 1.005 - 1.030 1.020 HEMOGLOBIN/BLOOD UA (POCT) Negative Large (A) PH UA (POCT) 4.5 - 8.0 7.5 PROTEIN UA (POCT) Negative mg/dL 100 (A) UROBILINOGEN UA (POCT) Normal E.U./dL 0.2 NITRITE UA (POCT) Negative Negative LEUKOCYTES UA (POCT) Negative Negative COLOR UA (POCT) Yellow CLARITY UA (POCT) Slightly Cloudy PAST MEDICAL HISTORY Diagnosis Date Arrhythmia Benign neoplasm of colon Calculus of kidney Chest pain, unspecified non cardiac Esophageal reflux Esophagitis, unspecified Granulomatous disease (HCC) History of recurrent UTIs HYPERLIPIDEMIA NEC/NOS 03/16/2009 HYPERTENSION NOS 03/10/2008 Mental disorder FRIEDA on CPAP Osteopenia BMD 12/12/2011 Sciatica Sjogren syndrome (HCC) ALLERGIES Cigarette Smoke [Other], Adhesive Tape (Rosins), Aleve [Naproxen Sodium], Ativan [Lorazepam], Cats, Lopressor [Metoprolol Tartrate], Nickel, Norvasc [Amlodipine Besylate], Sulfa (Sulfonamide Antibiotics), and Vioxx [Rofecoxib] MEDICATIONS Current Outpatient Medications Medication Sig krill/om-3/dha/epa/phospho/ast (MAXIMUM RED KRILL OMEGA-3 ORAL) Take by mouth. Azelastine HCl (OPTIVAR) 0.05 % ophthalmic solution Use 1 Drop in both eyes twice daily. cloNIDine HCl (CATAPRES) 0.1 mg tablet Take 1 tablet by mouth twice daily. (Patient not taking: Reported on 08/03/2023) ascorbic acid (VITAMIN C ORAL) Take by mouth. elderberry fruit (ELDERBERRY ORAL) Take by mouth. CALCIUM ORAL Take by mouth. cloNIDine HCl (CATAPRES) 0.1 mg tablet Take 1 tablet by mouth daily at bedtime. losartan (COZAAR) 100 mg tablet Take 1 tablet by mouth once daily. potassium chloride ER (KLOR-CON) 20 mEq tablet Take 1 tablet by mouth twice daily. (Patient not taking: Reported on 08/17/2023) hydroCHLOROthiazide 12.5 mg capsule Take 1 capsule by mouth once daily. (Patient not taking: Reported on 07/16/2023) cyclobenzaprine (FLEXERIL) 5 mg tablet Take 1 tablet by mouth three times daily as needed. [id number] 1 mg-25 mg-12.5 mg-1 mg tab Take by mouth. Vitamin E 1 mg, Vitamin A 1 mg, Collagen Support Vaginal Cream (CPD) Apply 1 g to affected area three times a week. (Patient not taking: Reported on 08/03/2023) pyridoxine, vitamin B6, (VITAMIN B6) 100 mg tablet Take 100 mg by mouth once daily. (Patient not taking: Reported on 08/03/2023) Magnesium 200 mg tab Take 1 tablet by mouth once daily. Garlic 100 mg tab Take 1 tablet by mouth once daily. Zinc 50 mg tab Take by mouth. Calcium magnesium esomeprazole (NEXIUM) 20 mg capsule Take 1 capsule by mouth DAILY (6 AM). BIOTIN ORAL Take by mouth. diphenhydrAMINE HCl 12.5 mg chewable tablet Take 12.5 mg by mouth at bedtime as needed. Cholecalciferol, Vitamin D3, 25 mcg (1,000 unit) cap Take 1,000 Units by mouth once daily. No current facility-administered medications for this visit. Medications and allergies reviewed by this provider. SOCIAL HISTORY Social History Tobacco Use Smoking status: Former Packs/day: 1.50 Years: 20.00 Additional pack years: 0.00 Total pack years: 30.00 Types: Cigarettes Quit date: 11/09/1980 Years since quittin.7 Smokeless tobacco: Never Tobacco comments: up to 3 PPD Vaping Use Vaping Use: Never used Substance Use Topics Alcohol use: No Drug use: No REVIEW OF SYSTEMS All other reviewed and negative other than HPI. OBJECTIVE: BP 144/88 Pulse 70 Resp 16 SpO2 96% . Vital signs reviewed by this provider. APPEARANCE Well appearing, alert, in no acute distress, well-hydrated, well nourished. EYES PERRLA, conjunctiva and sclera normal. HEART RRR with normal S1 and S2, no murmurs, no gallops, no JVD appreciated LUNG clear to auscultation. No wheezes, rhonchi or rales ABDOMEN bowel sounds normoactive, no bruits, soft, non-distended, without organomegaly or palpable masses. Mild TTP to RUQ. No rebound tenderness or guarding. Negative Baker's EXTREMITIES Extremities normal, No deformities, No skin discoloration, and No edema SKIN Skin color, texture, turgor normal, no suspicious rashes or lesions to exposed skin Covid-19 Vaccine(1) Never done BP Controlled (<130/80) Never done Shingrix Vaccine(2 of 3) due on 07/09/2016 DTaP,Tdap,Td Vaccine(2 - Td or Tdap) due on 04/23/2017 Advance Directive Discussion due on 11/09/2022 Influenza Vaccine(1) due on 07/10/2023 Hemoglobin/Hematocrit due on 06/08/2024 Serum Creatinine due on 08/03/2024 Annual PCP Team Chronic Disease Visit due on 08/17/2024 Diabetes Screening due on 08/03/2026 Bone Density Screening Completed Hepatitis C Screening Completed Pneumococcal Vaccine: 65+ Completed Mammogram Screening Discontinued Colorectal Cancer Screening Discontinued ASSESSMENT/PLAN: 1. RUQ pain - ICD9: 789.01, ICD10: R10.11 (primary diagnosis) - consider gallbladder - no red flag symptoms or exam findings - red flag symptoms discussed, verbalizes understanding - Labs of CBC with Diff, CMP, Lipase, and ESR - Work up with RUQ ultrasound - may use tylenol for pain as directed on packaging - follow-up pending testing to ER with red flag symptoms 2. Symptoms of urinary tract infection - ICD9: 788.99, ICD10: R39.9 - no change from last UA at the beginning of July, culture sent then that was WNL - no red flag symptoms or exam findings - red flag symptoms discussed, verbalizes understanding - follow-up with urologist as discussed Angelika Castelan APRN.CIRCULAR RIPSAW OPERATOR Prescription instructions reviewed with patient as applicable. Patient advised if symptoms do not improve or if symptoms worsen sooner, to contact their primary care physician. Potential red flag symptoms discussed with the patient. Reviewed appropriate action plan to take if red flag symptoms occur. Patient agreeable to treatment plan. I spent a total of 25 minutes on the date of the service which included preparing to see the patient, [id number] patient care, completing clinical documentation, obtaining and/or reviewing separately obtained history, performing a medically appropriate examination, counseling and educating the patient/family/caregiver, and ordering medications, tests, or procedures. documented in this encounter [facility] 08-17-2023 History of Present illness Narrative Patient was late to appointment. Had to be changed to 1140 today Angelika Castelan APRN.CNP documented in this encounter [facility] 08-03-2023 History of Present illness Narrative Images from the original note were not included. . [facility] [place] Note Patient name: Terri Burciaga PCP: Andre Santana MD CC: Abnormal chest CT HPI: Terri Burciaga 77 year old female former [id number] smoker, quitting 40 years ago with PMH significant for FRIEDA, HTN, history of COVID, new diagnosis of Sjogren's syndrome and a 1.2 cm increasing left lower lobe lung nodule. She had low-level activity on PET scan, CT biopsy nondiagnostic and procedure resulted in pneumothorax. She underwent a VATS wedge resection which showed necrotizing granulomatous inflammation and negative fungal stains. Unfortunately, she continues to have pain and numbness at the surgical site as well as persistent pleurisy. PCP ordered updated imaging shows new left lower lobe consolidations/atelectasis. Persistent reactive lymph nodes present as well. She has no new symptoms. She continues to have chest pain and dyspnea on exertion. No fevers, chills recent upper respiratory infection, weight loss. DATA: Labs: Component Ref Range & Units 1 mo ago CRP <0.9 mg/dL 0.7 Component Ref Range & Units 1 mo ago Sed Rate, Westergren 0 - 20 mm/hr 38 High Imaging / Diagnostic Studies: DATE OF EXAM: Jul 03 2023 2:08PM [facility] [id number] - CT CHEST WO IVCON / PROCEDURE REASON: Chest pain on breathing CLINICAL HISTORY: Status post VATS in the left lower lobe. Comparison: CT chest on 07/26/2021 RESULT: Limitations: None. Lines, tubes, and devices: None. Lung parenchyma and airways: The central airways are patent. Status post VATS in the left lower lobe, with scarring. There are multiple solid nodules in the bilateral lungs. For example, there are nodules in the right lung measuring up to 4.5 mm, series 6 images 95, 102, 115, 117, 119, 124, 132, 134, 137, and 149. There are nodules in the left lung measuring up to 3.5 mm, series 6 images 110, 112, 119, 145 and 150. These nodules appear stable compared to prior study. Please note the nodules are better visualized on the current study due to improved technique. No definite new nodules seen. Interval new small consolidations noted in the left lower lobe, series 6 images 123-145. Pleural space: No pleural effusion. No pleural thickening. Lower neck, lymph nodes, and mediastinum: The imaged thyroid gland is normal. No lymphadenopathy in the supraclavicular, axillary, mediastinal, or hilar regions. Heart, pericardium, and thoracic vessels: The thoracic aorta and main pulmonary artery are normal in caliber. The cardiac chambers are normal in size. Linear coronary artery atherosclerotic calcifications are noted, although the study is not optimized for coronary assessment. No pericardial effusion or thickening. Bones and soft tissues: The spine shows degenerative changes. No destructive bone lesion. Chest wall soft tissue is unremarkable. Upper abdomen: Limited study through the upper abdomen demonstrates what appears to be gallbladder stones. There are calcified granulomas in the spleen. IMPRESSION: Status post VATS in the left lower lobe, with interval new small consolidative opacities. Consider follow-up. Multiple bilateral lung nodules as described above. No CT evidence of lymphadenopathy in the chest. Gallbladder stones. I personally reviewed the images as well as with the patient and agree with the above assessment PAST MEDICAL HISTORY Diagnosis Date Arrhythmia Benign neoplasm of colon Calculus of kidney Chest pain, unspecified non cardiac Esophageal reflux Esophagitis, unspecified Granulomatous disease (HCC) History of recurrent UTIs HYPERLIPIDEMIA NEC/NOS 03/16/2009 HYPERTENSION NOS 03/10/2008 Mental disorder FRIEDA on CPAP Osteopenia BMD 12/12/2011 Sciatica Sjogren syndrome (HCC) ALLERGIES Allergen Reactions Cigarette Smoke [Ot* Cough, Itching, Shortness of Breath Adhesive Tape (Deyanira* Itching Aleve [Naproxen Sod* GI Upset Ativan [Lorazepam] Other: See Comments depression Cats Lopressor [Metoprol* Mental Status Change Nickel Rash Norvasc [Amlodipine* Swelling Swelling to feet and ankles Sulfa (Sulfonamide * severe headache Vioxx [Rofecoxib] GI Upset krill/om-3/dha/epa/phospho/ast (MAXIMUM RED KRILL OMEGA-3 ORAL) Take by mouth. Azelastine HCl (OPTIVAR) 0.05 % ophthalmic solution Use 1 Drop in both eyes twice daily. ascorbic acid (VITAMIN C ORAL) Take by mouth. elderberry fruit (ELDERBERRY ORAL) Take by mouth. CALCIUM ORAL Take by mouth. cloNIDine HCl (CATAPRES) 0.1 mg tablet Take 1 tablet by mouth daily at bedtime. losartan (COZAAR) 100 mg tablet Take 1 tablet by mouth once daily. potassium chloride ER (KLOR-CON) 20 mEq tablet Take 1 tablet by mouth twice daily. (Patient taking differently: Take 20 mEq by mouth twice daily. occassionally) cyclobenzaprine (FLEXERIL) 5 mg tablet Take 1 tablet by mouth three times daily as needed. [id number] 1 mg-25 mg-12.5 mg-1 mg tab Take by mouth. Magnesium 200 mg tab Take 1 tablet by mouth once daily. Garlic 100 mg tab Take 1 tablet by mouth once daily. Zinc 50 mg tab Take by mouth. Calcium magnesium esomeprazole (NEXIUM) 20 mg capsule Take 1 capsule by mouth DAILY (6 AM). BIOTIN ORAL Take by mouth. diphenhydrAMINE HCl 12.5 mg chewable tablet Take 12.5 mg by mouth at bedtime as needed. Cholecalciferol, Vitamin D3, 25 mcg (1,000 unit) cap Take 1,000 Units by mouth once daily. cloNIDine HCl (CATAPRES) 0.1 mg tablet Take 1 tablet by mouth twice daily. (Patient not taking: Reported on 08/03/2023) hydroCHLOROthiazide 12.5 mg capsule Take 1 capsule by mouth once daily. (Patient not taking: Reported on 07/16/2023) Vitamin E 1 mg, Vitamin A 1 mg, Collagen Support Vaginal Cream (CPD) Apply 1 g to affected area three times a week. (Patient not taking: Reported on 08/03/2023) pyridoxine, vitamin B6, (VITAMIN B6) 100 mg tablet Take 100 mg by mouth once daily. (Patient not taking: Reported on 08/03/2023) Social History Tobacco Use Smoking status: Former Packs/day: 1.50 Years: 20.00 Additional pack years: 0.00 Total pack years: 30.00 Types: Cigarettes Quit date: 11/09/1980 Years since quittin.7 Smokeless tobacco: Never Tobacco comments: up to 3 PPD Vaping Use Vaping Use: Never used Substance Use Topics Alcohol use: No Drug use: No FAMILY HISTORY Problem Relation Age of Onset Hypertension Mother other (macular degeneration) Mother Coronary Artery Disease Father Stroke Father other (CABG) Father Coronary Artery Disease Sister Coronary Artery Disease Brother Ischemic Heart Disease Paternal Grandfather other (Peripheral Vascular Disease) Sister Hypertension Sister Hypertension Sister Hypertension Brother Hypertension Son PAST SURGICAL HISTORY Procedure Laterality Date ABDOMINAL SURGERY HX APPENDECTOMY HX COLONOSCOPY COLONOSCOPY FLX DX W/COLLJ SPEC WHEN PFRMD 01/11/2016 Colonoscopy COLSC FLX W/RMVL OF TUMOR POLYP LESION SNARE TQ 02/05/2012 repeat 5 years EGD 02/05/2012 ESOPHAGOGASTRODUODENOSCOPY TRANSORAL DIAGNOSTIC 10/16/2008 EGD ESOPHAGOGASTRODUODENOSCOPY TRANSORAL DIAGNOSTIC 01/11/2016 EGD LYSIS OF ADHESIONS SALPINX/OVARY x6 OOPHORECTOMY, PART/TOTAL UNILAT/BILAT bilateral salpingectomy and left oophorectomy REM LESION TRUNK,ARM,LEG > 4.0CM 07/11/2022 REMV LUNG,WEDGE RESECTION Left 07/30/2021 VATS wedge resection of left lower lobe wedge SKIN EXCISION 07/11/2022 anterior chest wall & left torso TOTAL ABDOMINAL HYSTERECT W/WO RMVL TUBE OVARY 11/09/1969 endometriosis, change in ovary, right oophorectomy VAGINAL HYSTERECTOMY PMH, Social history, family history and surgical history reviewed and updated REVIEW OF SYSTEMS: CONSTITUTIONAL: No fevers, chills, nightsweats, unintended weight loss HEENT: Constant nasal congestion/sinus symptoms, allergy problems, postnasal drip EYES: Dry eyes with persistent gritty CARDIOVASCULAR: No palpitations, orthopnea, PND, edema. PULM: See HPI INTEGUMENTARY: No new skin changes or rashes PHYSICAL EXAMINATION: BP 138/88 Pulse 75 Resp 16 Ht 4' 11 (1.50m) Wt 189 lb (85.7kg) SpO2 97% BMI 38.15 kg/(m^2). General Appearance: Age-appropriate female, NAD Skin: Skin color, turgor normal, no suspicious rashes or lesions. Dry scaling skin Head: Normocephalic, no masses, lesions, tenderness or abnormalities. Eyes: Sclera, conjunctiva normal. Oropharynx: Oral lesions or thrush. Neck: No JVD, no masses, no adenopathy. Lungs: Not labored, normal to percussion, no wheezes or crackles. Heart: Regular rate and rhythm, no murmurs gallops. Extremities: No edema or clubbing. Assessment/Plan: 1. Lung nodule -To my review nodular area in question looks like area of atelectasis from previous surgery -Set up for short interim CT of the chest -Follow-up after chest CT 2. History of lung surgery -Status post VATS see showing granulomatous inflammation but no fungal pathogens -Persistent post surgical pain 3. Sjogren's syndrome -New diagnosis of Sjogren's syndrome. At risk for bronchiectasis due to dry secretions. Jacquie Evans MD [facility] [place] documented in this encounter [facility] 07-21-2023 Miscellaneous Notes Patient notified. Patient states she was contacted yesterday letting her know she needed to see urology due to evidence of blood in urine (??). She has an appointment with urology on 08/11. States is still having minor issue. Would like to speak to you when you get the chance. Please review and advise. ----- Message from Luc Faustin PA-C sent at 07/21/2023 8:43 AM EDT ----- Please let her know growth on culture was mixed from skin contamination and too low to indicate UTI. Let me know if still having problems. Thanks, Isreal Faustin PA-C documented in this encounter [facility] 07-16-2023 History of Present illness Narrative 77 year old female with c/o f/u on CT, questions trigger by nursing education on atelectasis meaning collapsed lung Also having urinary pressure, frequency , some burning with urination No fever, chills, nausea/vomiting. Persistent discomfort with confirmation of the same details below reviewed 07/16/2023. From last visit notes: 07/16/2023 reaffirms the following as same current sx Getting sharp in upper left back just above shoulder pain. Also has chronic pain in the anterior chest at the site of prior surgery which has been constant, sore feeling underneath her rib cage at the midclavicular line about fifth intercostal space. Pain does not seem to be exertional. Hurts to cough/ sneeze. Has chronic cough on daily basis. Cough is productive yellow mucus, no blood. Wheezing has let up with air clearing Notes persistent exertional fatigue. Identifies weight gain- weights are at usual baseline, had lost weight previously. Still feels totally exhausted at the end of the day. GERD controlled mostly on Nexium, as usual Appetite has been normal, patient is trying to lose weight but has been unable. 08/28/2022 CXR normal 07/30/2921 wedge resection 1.2 cm increasing LLL nodule, low level activity on PET scan, CT biopsy non-diagnostic and procedure resulted in PTX. VATS wedge resection showed necrotizing granulomatous inflammation and negative fungal stains. 07/26/2021 CT chest wIVCON 1. The left lower lobe irregular nodular opacity with adjacent parenchymal retraction is smaller in size compared to prior examinations and most likely represents a scar. I note this lesion demonstrated minimal metabolic activity on CT PET. 2. Other scattered tiny lung nodules are stable since older studies dating back to 11/30/2020. No new lung nodules have developed. 3. No significant lymph node enlargement in the thorax. 07/26/2021 Stress echo dobutamine: Negative for ischemia at 92% MPHR LV size + LVSF WNL, EF 55%, no regional wall motion abnormalities RV size + RVSF WNL LA size WNL No change from 01/21/2021 07/09/2021 PFT, LV, DLCO: Spirometry is normal. The vital capacity, FEV1 and FEV1/FVC ratio are normal. The TLC, RV and RV/TLC are normal. The diffusing capacity is normal. Component Latest Ref Rng & Units 05/08/2022 07/01/2022 07/07/2022 06/08/2023 06/17/2023 06/29/2023 WBC 3.70 - 11.00 k/uL 5.94 6.17 RBC 3.90 - 5.20 m/uL 5.19 4.79 Hemoglobin 11.5 - 15.5 g/dL 14.6 13.5 Hematocrit 36.0 - 46.0 % 47.2 (H) 42.9 MCV 80.0 - 100.0 fL 90.9 89.6 MCH 26.0 - 34.0 pg 28.1 28.2 MCHC 30.5 - 36.0 g/dL 30.9 31.5 RDW-CV 11.5 - 15.0 % 12.8 13.2 Platelet Count 150 - 400 k/uL 206 208 MPV 9.0 - 12.7 fL 10.7 10.8 Neut% % 54.9 61.4 Abs Neut (ANC) 1.45 - 7.50 k/uL 3.26 3.79 Lymph% % 31.0 26.1 Abs Lymph 1.00 - 4.00 k/uL 1.84 1.61 Harlan% % 11.8 10.7 Abs Harlan <0.87 k/uL 0.70 0.66 Eosin% % 1.5 1.1 Abs Eosin <0.46 k/uL 0.09 0.07 Baso% % 0.5 0.5 Abs Baso <0.11 k/uL 0.03 0.03 Immature Gran % % 0.3 0.2 IMMATURE GRANS (ABS) <0.10 k/uL <0.03 <0.03 NRBC /100 WBC 0.0 0.0 Absolute nRBC <0.01 k/uL <0.01 <0.01 DTYPE Auto Auto Protein, Total 6.3 - 8.0 g/dL 6.8 Albumin 3.9 - 4.9 g/dL 3.8 (L) Calcium 8.5 - 10.2 mg/dL 9.7 10.0 9.5 9.4 Bilirubin, Total 0.2 - 1.3 mg/dL 0.4 Alkaline Phosphatase 34 - 123 U/L 85 AST 13 - 35 U/L 15 ALT 7 - 38 U/L 9 Glucose 74 - 99 mg/dL 90 97 98 95 BUN 7 - 21 mg/dL 17 22 (H) 15 22 (H) Creatinine 0.58 - 0.96 mg/dL 0.98 (H) 1.12 (H) 1.09 (H) 1.15 (H) Sodium 136 - 144 mmol/L 138 137 140 139 Potassium 3.7 - 5.1 mmol/L 4.2 4.3 4.5 4.4 Chloride 97 - 105 mmol/L 101 100 106 (H) 105 CO2 22 - 30 mmol/L 25 27 23 20 (L) Anion Gap 9 - 18 mmol/L 12 10 11 14 eGFR >=60 mL/min/1.73m 60 51 (L) 53 (L) 49 (L) Hemoglobin A1C 4.3 - 5.6 % 5.8 (H) 5.8 (H) Estimated Average Glucose mg/dL 120 120 CRP <0.9 mg/dL 1.3 (H) 0.7 WSR 0 - 20 mm/hr 41 (H) 38 (H) TSH 0.270 - 4.200 mIU/L 2.620 2.560 Magnesium 1.7 - 2.3 mg/dL 2.2 HISTORIES FAMILY HISTORY Problem Relation Age of Onset Hypertension Mother other (macular degeneration) Mother Coronary Artery Disease Father Stroke Father other (CABG) Father Coronary Artery Disease Sister Coronary Artery Disease Brother Ischemic Heart Disease Paternal Grandfather other (Peripheral Vascular Disease) Sister Hypertension Sister Hypertension Sister Hypertension Brother Hypertension Son PAST MEDICAL HISTORY Diagnosis Date Arrhythmia Benign neoplasm of colon Calculus of kidney Chest pain, unspecified non cardiac Esophageal reflux Esophagitis, unspecified Granulomatous disease (HCC) History of recurrent UTIs HYPERLIPIDEMIA NEC/NOS 03/16/2009 HYPERTENSION NOS 03/10/2008 Mental disorder FRIEDA on CPAP Osteopenia BMD 12/12/2011 Sciatica PAST SURGICAL HISTORY Procedure Laterality Date ABDOMINAL SURGERY HX APPENDECTOMY HX COLONOSCOPY COLONOSCOPY FLX DX W/COLLJ SPEC WHEN PFRMD 01/11/2016 Colonoscopy COLSC FLX W/RMVL OF TUMOR POLYP LESION SNARE TQ 02/05/2012 repeat 5 years EGD 02/05/2012 ESOPHAGOGASTRODUODENOSCOPY TRANSORAL DIAGNOSTIC 10/16/2008 EGD ESOPHAGOGASTRODUODENOSCOPY TRANSORAL DIAGNOSTIC 01/11/2016 EGD LYSIS OF ADHESIONS SALPINX/OVARY x6 OOPHORECTOMY, PART/TOTAL UNILAT/BILAT bilateral salpingectomy and left oophorectomy REM LESION TRUNK,ARM,LEG > 4.0CM 07/11/2022 REMV LUNG,WEDGE RESECTION Left 07/30/2021 VATS wedge resection of left lower lobe wedge SKIN EXCISION 07/11/2022 anterior chest wall & left torso TOTAL ABDOMINAL HYSTERECT W/WO RMVL TUBE OVARY 11/09/1969 endometriosis, change in ovary, right oophorectomy VAGINAL HYSTERECTOMY Social History Tobacco Use Smoking status: Former Packs/day: 1.50 Years: 20.00 Additional pack years: 0.00 Total pack years: 30.00 Types: Cigarettes Quit date: 11/09/1980 Years since quittin.7 Smokeless tobacco: Never Tobacco comments: up to 3 PPD Vaping Use Vaping Use: Never used Substance Use Topics Alcohol use: No Drug use: No ACTIVE PROBLEM LIST Lipoma of Unspecified Site Peripheral Vertigo, Unspecified Essential Hypertension With Goal Blood Pressure Less Than 140/90 Esophageal Reflux Mixed Hyperlipidemia Depression Nocturnal Muscle Cramps Obesity Osteopenia History of Colon Polyps Dry Eye Syndrome Nuclear Sclerosis of Both Eyes Blepharitis of Both Upper and Lower Eyelid of Right Eye Prediabetes 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 Vitreous Floaters of Both Eyes Stage 3b Chronic Kidney Disease (Hcc) 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 3 mL 2 cloNIDine HCl (CATAPRES) 0.1 mg tablet Take 1 tablet by mouth twice daily. ascorbic acid (VITAMIN C ORAL) Take by mouth. elderberry fruit (ELDERBERRY ORAL) Take by mouth. CALCIUM ORAL Take by mouth. cloNIDine HCl (CATAPRES) 0.1 mg tablet Take 1 tablet by mouth daily at bedtime. 90 tablet 3 losartan (COZAAR) 100 mg tablet Take 1 tablet by mouth once daily. 90 tablet 3 potassium chloride ER (KLOR-CON) 20 mEq tablet Take 1 tablet by mouth twice daily. 180 tablet 3 hydroCHLOROthiazide 12.5 mg capsule Take 1 capsule by mouth once daily. 90 capsule 3 cyclobenzaprine (FLEXERIL) 5 mg tablet Take 1 tablet by mouth three times daily as needed. 30 tablet 2 [id number] 1 mg-25 mg-12.5 mg-1 mg tab Take by mouth. Vitamin E 1 mg, Vitamin A 1 mg, Collagen Support Vaginal Cream (CPD) Apply 1 g to affected area three times a week. 20 g 3 pyridoxine, vitamin B6, (VITAMIN B6) 100 mg tablet Take 100 mg by mouth once daily. Magnesium 200 mg tab Take 1 tablet by mouth once daily. Garlic 100 mg tab Take 1 tablet by mouth once daily. Zinc 50 mg tab Take by mouth. Calcium magnesium esomeprazole (NEXIUM) 20 mg capsule Take 1 capsule by mouth DAILY (6 AM). BIOTIN ORAL Take by mouth. diphenhydrAMINE HCl 12.5 mg chewable tablet Take 12.5 mg by mouth at bedtime as needed. Cholecalciferol, Vitamin D3, 25 mcg (1,000 unit) cap Take 1,000 Units by mouth once daily. No current facility-administered medications for this visit. COVID-19 VACCINE(1) Never done BP CONTROLLED (<130/80) Never done SHINGRIX VACCINE(2 of 3) due on 07/09/2016 DTAP,TDAP,TD(2 - Td or Tdap) due on 04/23/2017 ADVANCE DIRECTIVE DISCUSSION due on 11/09/2022 INFLUENZA(1) due on 07/10/2023 EXAM: BP 138/88 Pulse 75 Wt 86.2 kg (190 lb) SpO2 97% BMI 39.71 kg/m Pleasant obese adult woman in no acute distress. Alert and oriented all spheres. Normal affect and cognition. Speech normal. No deficits to learning or comprehension. Skin warm, dry, pink to lips and nailbeds. Normal turgor. Respirations regular and unlabored. No cough, retractions, or respiratory labor. Tender left posterior lateral mid chest and throughout lower lateral anterior chest similar to prior exam. Abdomen: active bowel sounds throughout, soft, nontender, no masses or organomegaly. No CVAT. Extrem: no clubbing or cyanosis. Edema: none. Extremities are warm and pink with prompt capillary refill. Component Latest Ref Rng & Units 07/16/2023 GLUCOSE UA (POCT) Negative mg/dL Negative BILIRUBIN UA (POCT) Negative Negative KETONE UA (POCT) Negative mg/dL Negative SPECIFIC GRAVITY UA (POCT) 1.005 - 1.030 1.010 HEMOGLOBIN/BLOOD UA (POCT) Negative Large (A) PH UA (POCT) 4.5 - 8.0 6.5 PROTEIN UA (POCT) Negative mg/dL 30 (A) UROBILINOGEN UA (POCT) Normal E.U./dL 0.2 NITRITE UA (POCT) Negative Negative LEUKOCYTES UA (POCT) Negative Trace (A) COLOR UA (POCT) Yellow CLARITY UA (POCT) Clear ASSESSMENT/PLAN: 1. Urinary frequency - ICD9: 788.41, ICD10: R35.0 (primary diagnosis) acute - UA positive for remi esterase, hematuria, and proteinuria - Patient education for prevention given - UA DIP, URINE (POC) - URINALYSIS, WITH MICROSCOPIC - URINE CULTURE - BASIC METABOLIC PNL 2. Granulomatous lung disease (HCC) - ICD9: 518.89, ICD10: J84.10 Stable 3. Consolidation of left lower lobe of lung (HCC) - ICD9: 481, ICD10: J18.1 CT ordered for follow up 4. Atelectasis of left lung - ICD9: 518.0, ICD10: J98.11 Educated on diagnosis and risks 5. Dehydration - ICD9: 276.51, ICD10: E86.0 Please push fluids with water, non-caffeinated and non-alcoholic beverages. Recheck cortney Faustin PA-C documented in this encounter [facility] 07-10-2023 Miscellaneous Notes Patient informed. She didn't really understand verbiage used. She requested to schedule an appointment to come in and discuss. Scheduled with Isreal Alfaro. 07/16/23. Teri Torres Please let her know Dr. Evans reviewed CT, thinks it may be atelectasis. Recommends recheck CT chest in 3-4 months. Please schedule in 3-4 months: Telephone on 07/09/23 CT CHEST WO IVCON Isreal Bro PA-C Please advise CT shows 2 new opacified areas where her surgery took place, these could be a loculated fluid but she also has multiple lymph nodes throughout the chest. These could be reactive. I am going to send this note to Dr. Evans and have her review the CT for further recommendations. Isreal Bro PA-C documented in this encounter [facility] 07-03-2023 History of Present illness Narrative Radiology Service Progress Note PATIENT NAME: Terri Burciaga DATE OF SERVICE: July 03, 2023 TIME: 2:56 PM PATIENT IDENTITY VERIFICATION COMPLETED USING TWO (2) IDENTIFIERS: Name and Date of confirmed by patient verbally. FALL SCREENING: Has the patient had 2 falls in the last year or 1 fall with injury or currently using an Ambulatory Assistive Device (Walker, Cane, Wheelchair, Crutches, etc.)? No PATIENT GENDER DATA: Female. status: : No status: NO. PATIENT RELEVANT IMPLANT DATA REVIEWED: Yes RADIOLOGY DEPARTMENT: CT; Exam(s) Completed: Chest PERIPHERAL IV DATA: Not applicable SIGNED BY: RT Melanie(R) July 03, 2023 2:56 PM documented in this encounter [facility] 06-30-2023 Miscellaneous Notes Patient was made aware of the results. Patient verbalizes understanding. Juliann Dietrich Ma ----- Message from Luc Faustin PA-C sent at 06/30/2023 11:08 AM EDT ----- Please let her know renal function still looks dry, likely secondary to HCTZ BP was up last time so I would not change at this time. Will review next visit. Try to push fluids. Thanks, Isreal Faustin PA-C documented in this encounter [facility] 06-19-2023 Miscellaneous Notes Pt called and notified of message. Discussed previous labs and results from Isreal Faustin. Pt asking if she was to d/c Potassium where this was not mentioned. Pt then states this was discussed with Angelika. Reviewed OV note and all this states is that pt said she stopped it, not Angelika said to stop it. Pt reports she is now taking it again. Notified pt she is to complete labs prior to her BP check as scheduled. Pt understood. Valorie Castañeda Ma ----- Message from Angelika Castelan APRN.CNP sent at 06/19/2023 6:27 AM EDT ----- Thyroid hormone on normal limits. Angelika Castelan APRN.CNP documented in this encounter [facility] 06-17-2023 History of Present illness Narrative 06/17/2023 Patient presents with: Palpitations: Started this morning. Stopped taking HCTZ on the 1st along K+. SUBJECTIVE: This is a 77 year old that is here today for Above Complaints.. Palpitations started this morning. Are constant. Feels SOB. Has had before and had to go to the hospital. Reports has mild headaches, feels gassy, and a little nauseated. Had small bowel movement toady. Recently taken off her HCTZ due to renal function. She also reports she stopped her potassium supplement as well about two weeks ago. Denies anxiety, caffeine use, visual changes, diaphoresis, lightheadedness, dizziness, chest pain, dyspnea, back/jaw pain, or vomiting. PAST MEDICAL HISTORY Diagnosis Date Arrhythmia Benign neoplasm of colon Calculus of kidney Chest pain, unspecified non cardiac Esophageal reflux Esophagitis, unspecified Granulomatous disease (HCC) History of recurrent UTIs HYPERLIPIDEMIA NEC/NOS 03/16/2009 HYPERTENSION NOS 03/10/2008 Mental disorder FRIEDA on CPAP Osteopenia BMD 12/12/2011 Sciatica ALLERGIES Cigarette Smoke [Other], Adhesive Tape (Rosins), Aleve [Naproxen Sodium], Ativan [Lorazepam], Cats, Lopressor [Metoprolol Tartrate], Nickel, Norvasc [Amlodipine Besylate], Sulfa (Sulfonamide Antibiotics), and Vioxx [Rofecoxib] MEDICATIONS Current Outpatient Medications Medication Sig ascorbic acid (VITAMIN C ORAL) Take by mouth. elderberry fruit (ELDERBERRY ORAL) Take by mouth. CALCIUM ORAL Take by mouth. cloNIDine HCl (CATAPRES) 0.1 mg tablet Take 1 tablet by mouth daily at bedtime. losartan (COZAAR) 100 mg tablet Take 1 tablet by mouth once daily. potassium chloride ER (KLOR-CON) 20 mEq tablet Take 1 tablet by mouth twice daily. hydroCHLOROthiazide 12.5 mg capsule Take 1 capsule by mouth once daily. cyclobenzaprine (FLEXERIL) 5 mg tablet Take 1 tablet by mouth three times daily as needed. [id number] 1 mg-25 mg-12.5 mg-1 mg tab Take by mouth. Vitamin E 1 mg, Vitamin A 1 mg, Collagen Support Vaginal Cream (CPD) Apply 1 g to affected area three times a week. pyridoxine, vitamin B6, (VITAMIN B6) 100 mg tablet Take 100 mg by mouth once daily. Magnesium 200 mg tab Take 1 tablet by mouth once daily. Garlic 100 mg tab Take 1 tablet by mouth once daily. Zinc 50 mg tab Take by mouth. Calcium magnesium esomeprazole (NEXIUM) 20 mg capsule Take 1 capsule by mouth DAILY (6 AM). BIOTIN ORAL Take by mouth. diphenhydrAMINE HCl 12.5 mg chewable tablet Take 12.5 mg by mouth at bedtime as needed. Cholecalciferol, Vitamin D3, 25 mcg (1,000 unit) cap Take 1,000 Units by mouth once daily. No current facility-administered medications for this visit. Medications and allergies reviewed by this provider. SOCIAL HISTORY Social History Tobacco Use Smoking status: Former Packs/day: 1.50 Years: 20.00 Total pack years: 30.00 Types: Cigarettes Quit date: 11/09/1980 Years since quittin.6 Smokeless tobacco: Never Tobacco comments: up to 3 PPD Vaping Use Vaping Use: Never used Substance Use Topics Alcohol use: No Drug use: No REVIEW OF SYSTEMS All other reviewed and negative other than HPI. OBJECTIVE: BP 163/86 Pulse 89 Resp 16 Wt 86.1 kg (189 lb 12.8 oz) SpO2 98% BMI 39.67 kg/m . Vital signs reviewed by this provider. APPEARANCE Well appearing, alert, in no acute distress, well-hydrated, well nourished. EYES conjunctiva and sclera normal. HEART RRR with normal S1 and S2, no murmurs, no gallops, no JVD appreciated LUNG clear to auscultation. No wheezes, rhonchi or rales EXTREMITIES Extremities normal, No deformities, No skin discoloration, and No edema SKIN Skin color, texture, turgor normal, no suspicious rashes or lesions to exposed skin COVID-19 VACCINE(1) Never done ADVANCE DIRECTIVE DISCUSSION due on 11/09/2022 DTAP,TDAP,TD(2 - Td or Tdap) due on 07/01/2023 SHINGRIX VACCINE(2 of 3) due on 07/01/2023 INFLUENZA(1) due on 07/10/2023 ANNUAL PCP TEAM CHRONIC DISEASE VISIT due on 06/02/2024 BP CONTROLLED (<130/80) due on 06/02/2024 SERUM CREATININE due on 06/08/2024 HEMOGLOBIN/HEMATOCRIT due on 06/08/2024 DIABETES SCREEN due on 06/08/2026 BONE DENSITY Completed HEPATITIS C SCREENING Completed PNEUMOCOCCAL: 65+ Completed MAMMOGRAM Discontinued COLORECTAL CANCER SCREENING Discontinued ASSESSMENT/PLAN: 1. Palpitations - ICD9: 785.1, ICD10: R00.2 (primary diagnosis) - EKG today show sinus rhythm with premature atrial complexes - has hx of atrial tachycardia, can not tolerate beta kemar - no red flag symptoms or exam findings - red flag symptoms discussed, verbalizes understanding - if persists see engine dispatcher sooner, to ER with red flag symptoms - ECG COMPLETE - BASIC METABOLIC PNL - TSH BLD 2. Essential hypertension with goal blood pressure less than 140/90 - ICD9: 401.9, ICD10: I10 - Uncontrolled - Continue current medications - Increase clonidine - Recommend home blood pressure monitoring, to bring results to next visit - Encouraged sodium restriction, DASH or Mediterranean diet - Recommend regular aerobic exercise - Discussed need for and benefit of weight loss. BMI 39.67 kg/(m^2) - if able to monitor BP at home do so and bring readings to appointment - Follow up in 2 weeks for hypertension visit - CLONIDINE HCL 0.1 MG TABLET Angelika Castelan APRN.CIRCULAR RIPSAW OPERATOR Prescription instructions reviewed with patient as applicable. Patient advised if symptoms do not improve or if symptoms worsen sooner, to contact their primary care physician. Potential red flag symptoms discussed with the patient. Reviewed appropriate action plan to take if red flag symptoms occur. Patient agreeable to treatment plan. I spent a total of 30 minutes on the date of the service which included preparing to see the patient, [id number] patient care, completing clinical documentation, obtaining and/or reviewing separately obtained history, performing a medically appropriate examination, counseling and educating the patient/family/caregiver, and ordering medications, tests, or procedures. documented in this encounter [facility] 06-09-2023 Miscellaneous Notes Phoned patient and gave provider's message below and patient verbalized understanding. Pt agreeable. Scheduled BP recheck for 07/07/23 as advised. Chloe Damico RN Please advise a1c is stable in good range. BUN shows she is dehydrated affecting renal function: Please push fluids with water, non-caffeinated and non-alcoholic beverages to 64 oz daily. Stop HCTZ Recheck lab in 4 weeks with NV recheck BP. Sed rate borderline inflammation at 38, following with rheum. No specific changes. Telephone on 06/09/23 BASIC METABOLIC PNL Thanks, Isreal Faustin PA-C documented in this encounter [facility] 06-08-2023 History of Present illness Narrative Radiology Service Progress Note PATIENT NAME: Terri Burciaga DATE OF SERVICE: June 08, 2023 TIME: 3:10 PM PATIENT IDENTITY VERIFICATION COMPLETED USING TWO (2) IDENTIFIERS: Name and Date of confirmed by patient verbally. FALL SCREENING: Has the patient had 2 falls in the last year or 1 fall with injury or currently using an Ambulatory Assistive Device (Walker, Cane, Wheelchair, Crutches, etc.)? No PATIENT GENDER DATA: Female. status: : No status: NO. PATIENT RELEVANT IMPLANT DATA REVIEWED: Yes RADIOLOGY DEPARTMENT: General X-ray: Exam(s) Completed: Chest X-Ray PERIPHERAL IV DATA: Not applicable SIGNED BY: RT Dori(R) June 08, 2023 3:10 PM documented in this encounter [facility] 01-15-2023 Miscellaneous Notes Patient was notified Jacquie Wren Ma Let her know her mammogram was ok. documented in this encounter [facility] 01-15-2023 Miscellaneous Notes January 16, 2023 PID: [id number] Terri Burciaga [address] [place] [address] Dear Ms. Burciaga, We are pleased to inform you that the results of your recent breast imaging exam on 01/14/2023 are normal. Early detection of cancer is very important. We also understand recommendations regarding breast cancer screening are controversial. Please discuss with your primary care provider which strategy is best for you and whether a mammogram is right for you. Your imaging studies and report will be kept on file at [facility] as part of your permanent medical record and are available for your continuing care. Thank you for allowing us to help in meeting your health care needs. Sincerely, Dr. Abarca Interpreting Radiologist [facility] (Normal over 40) documented in this encounter [facility] 01-15-2023 Miscellaneous Notes Patient has been notified of message below and verbalized understanding. Patient will call back if she decides to do physical therapy. Raquel Davis MA Attempted to reach patient. No answer. Unable to leave a message, mail box is full. Will try again later. Raquel Davis MA ----- Message from Maren Rhodes MD sent at 01/14/2023 3:09 PM EST ----- Hi team! Can you please call this patient to let her know that her x-ray did not show any fractures! If she is still having pain we can send her to physical therapy, I am happy to place an order anytime. documented in this encounter [facility] 01-08-2023 Miscellaneous Notes Patient has been notified of message below and verbalized understanding. Raquel Davis MA Please call the patient to let her know the following: The bone density scan showed osteopenia which has gotten slightly worse in the past 11 years since your last bone density scan. At this time it is not severe enough to need any additional treatment other than the vitamin D you are already taking. Other things that can help osteopenia include regular exercise and movement of the bones. documented in this encounter [facility] 01-07-2023 History of Present illness Narrative Radiology Service Progress Note PATIENT NAME: Terri Burciaga DATE OF SERVICE: January 07, 2023 TIME: 2:48 PM PATIENT IDENTITY VERIFICATION COMPLETED USING TWO (2) IDENTIFIERS: Name and Date of confirmed by patient verbally. FALL SCREENING: Has the patient had 2 falls in the last year or 1 fall with injury or currently using an Ambulatory Assistive Device (Walker, Cane, Wheelchair, Crutches, etc.)? No PATIENT GENDER DATA: Female. status: : No status: NO. PATIENT RELEVANT IMPLANT DATA REVIEWED: Yes RADIOLOGY DEPARTMENT: General X-ray: Exam(s) Completed: Pelvis X-Ray: Pelvis with Hip Right PERIPHERAL IV DATA: Not applicable SIGNED BY: RT Dori(R) January 07, 2023 2:48 PM documented in this encounter [facility] 11-28-2022 History of Present illness Narrative Images from the original note were not included. Rheumatology CONSULTATION Date of Service: 11/28/2022 Patient: Terri Burciaga Medical Record: [id number] Primary Care Physician: Andre Santana MD Last Rheumatology visit: None at [facility] Referring Provider: Luc Faustin [address] [facility] [address] Chief Complaint: Patient presents with: New Patient Sjogren's Disease Terri Burciaga is here today at request of AMAN Faustin specifically for consultation of my opinion in regards to the chief complaint listed above. Correspondence will be shared today via the [employer] electronic health record or through regular mail, where applicable. HISTORY OF PRESENT ILLNESS Terri Burciaga is a 77 year old White female with a history of CKD, FRIEDA, GERD, hypertension, atrial tachycardia, low back pain with sciatica, osteopenia who presents to rheumatology clinic for evaluation of Sjogren's. Chart review reveals she was evaluated by PCP AMAN 07/01/2022 at which point she described polyarthralgia. Rheumatologic labs were drawn which demonstrated CHINMAY 1: 160, ESR 41, CRP 1.3, SSA greater than 8.0, normal C3 and C4, normal SPEP, CK 29, normal TSH. She was sent to rheumatology for evaluation of Sjogren's. No further work-up was done into her inflammatory markers. Today she presents to clinic alone. She states that she has a long history of back pain with right-sided sciatica. She has been doing physical therapy with minimal improvement. Unfortunately she took a fall a few months ago and landed on her bottom which has worsened her pain in the right hip. She also describes bilateral first CMC pain and bilateral fifth DIP pain with bony osteophytes. She has morning stiffness in the hands lasting a few minutes. She sometimes has knee pain but has never had injections. Rheumatologic review of systems notable for 22 pound unintentional weight loss over the past 4 months due to decreased appetite. She wonders if this is secondary to her tramadol. She has had years worth of jaw pain with jaw claudication secondary to TMJ. She gets intermittent sharp left jain pain. She has no visual changes, tongue claudication. She has dry eye for the past 6 to 7 years using [id number] eyedrops a few times a day. She has dry mouth with difficulty swallowing. She has constipation. She describes constant postsurgical pain in her left chest from her wedge resection. Her fingers turn white in the cold. She had 1 episode of photo sensitive rash 01/2021 described as red and itchy on her chest and arms. She has poor sleep and is noncompliant with her CPAP. She has easy fatigue and brain fog. She denies fevers, night sweats, history of uveitis, sores in her nose or mouth, malar rash, cough, nausea, vomiting, blood in her urine or stool, numbness/tingling. Pain Evaluation Pain Evaluation 10/10/2022 10/17/2022 10/21/2022 10/23/2022 10/28/2022 Pain Score 8 7 6 7 5 Location - - - Back-Lower - Location Comment - - - Leg-Right - Description - - - Aching - Duration (#) - - - 4 - Duration (Timeframe) - - - Months - Frequency - - - Continuous - Intervention - - - Reposition;Relaxation;Positioning - PATIENT-ENTERED DATA PROMIS Assessments No flowsheet data found. RAPID 3 [place] Activities of Daily Living No Data Dress self? - Get in and out of bed? - Walk outdoors? - Wash and dry body? - Get in and out of car? - RAPID 3 Disease Activity Weighed Score Levels: 0 - 1: Near Remission 1.3 - 2.0: Low Severity 2.3 - 4.0: Moderate Severity 4.3 - 10.0: High Severity No flowsheet data found. REVIEW OF SYSTEMS Complete ROS (HEENT, respiratory, cardiology, GI, , skin, psych, hematology, endocrine, neuro, musculoskeletal) negativee except as noted in HPI. PAST MEDICAL HISTORY PAST MEDICAL HISTORY Diagnosis Date Arrhythmia Benign neoplasm of colon Calculus of kidney Chest pain, unspecified non cardiac Esophageal reflux Esophagitis, unspecified Granulomatous disease (HCC) History of recurrent UTIs HYPERLIPIDEMIA NEC/NOS 03/16/2009 HYPERTENSION NOS 03/10/2008 Mental disorder FRIEDA on CPAP Osteopenia BMD 12/12/2011 Sciatica PAST SURGICAL HISTORY PAST SURGICAL HISTORY Procedure Laterality Date ABDOMINAL SURGERY HX APPENDECTOMY HX COLONOSCOPY COLONOSCOPY FLX DX W/COLLJ SPEC WHEN PFRMD 01/11/2016 Colonoscopy COLSC FLX W/RMVL OF TUMOR POLYP LESION SNARE TQ 02/05/2012 repeat 5 years EGD 02/05/2012 ESOPHAGOGASTRODUODENOSCOPY TRANSORAL DIAGNOSTIC 10/16/2008 EGD ESOPHAGOGASTRODUODENOSCOPY TRANSORAL DIAGNOSTIC 01/11/2016 EGD LYSIS OF ADHESIONS SALPINX/OVARY x6 OOPHORECTOMY, PART/TOTAL UNILAT/BILAT bilateral salpingectomy and left oophorectomy REM LESION TRUNK,ARM,LEG > 4.0CM 07/11/2022 REMV LUNG,WEDGE RESECTION Left 07/30/2021 VATS wedge resection of left lower lobe wedge SKIN EXCISION 07/11/2022 anterior chest wall & left torso TOTAL ABDOMINAL HYSTERECT W/WO RMVL TUBE OVARY 11/09/1969 endometriosis, change in ovary, right oophorectomy VAGINAL HYSTERECTOMY FAMILY HISTORY: Aunt and sister with Raynaud's Mother with arthritis unknown subtype and possibly Raynaud's Aunt with thyroid disease FAMILY HISTORY Problem Relation Age of Onset Hypertension Mother other (macular degeneration) Mother Coronary Artery Disease Father Stroke Father other (CABG) Father Coronary Artery Disease Sister Coronary Artery Disease Brother Ischemic Heart Disease Paternal Grandfather other (Peripheral Vascular Disease) Sister Hypertension Sister Hypertension Sister Hypertension Brother Hypertension Son SOCIAL HISTORY: 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 cyclobenzaprine (FLEXERIL) 5 mg tablet Take 1 tablet by mouth three times daily as needed. cloNIDine HCl (CATAPRES) 0.1 mg tablet Take 1 tablet by mouth daily at bedtime. losartan (COZAAR) 100 mg tablet Take 1 tablet by mouth once daily. potassium chloride ER (K-DUR, KLOR-CON) 20 mEq tablet Take 1 tablet by mouth twice daily. hydroCHLOROthiazide (HYDRODIURIL, ESIDRIX) 12.5 mg capsule Take 1 capsule by mouth once daily. Vitamin E 1 mg, Vitamin A 1 mg, Collagen Support Vaginal Cream (CPD) Apply 1 g to affected area three times a week. pyridoxine, vitamin B6, (VITAMIN B6) 100 mg tablet Take 100 mg by mouth once daily. Magnesium 200 mg tab Take 1 tablet by mouth once daily. Garlic 100 mg tab Take 1 tablet by mouth once daily. Zinc 50 mg tab Take by mouth. Calcium magnesium esomeprazole (NEXIUM) 20 mg capsule Take 1 capsule by mouth DAILY (6 AM). BIOTIN ORAL Take by mouth. diphenhydrAMINE HCl 12.5 mg chewable tablet Take 12.5 mg by mouth at bedtime as needed. Cholecalciferol, Vitamin D3, 25 mcg (1,000 unit) cap Take 1,000 Units by mouth once daily. ALLERGIES ALLERGIES Allergen Reactions Cigarette Smoke [Ot* Cough, Itching, Shortness of Breath Adhesive Tape (Deyanira* Itching Aleve [Naproxen Sod* GI Upset Ativan [Lorazepam] Other: See Comments depression Cats Lopressor [Metoprol* Mental Status Change Nickel Rash Norvasc [Amlodipine* Swelling Swelling to feet and ankles Sulfa (Sulfonamide * severe headache Vioxx [Rofecoxib] GI Upset PHYSICAL EXAM VITAL SIGNS: BP 122/86 Pulse 84 Temp (Src) 97.6 (Temporal) Ht 4' 10 (1.47m) Wt 175 lb (79.4kg) BMI 36.58 kg/(m^2). GENERAL: Alert and oriented, appears stated age. In no acute distress. EYES: PERRL, EOMI, anicteric sclerae, no conjunctival injection HENT: Normal external examination of the ears and nose, lips, oropharynx and tongue. No oropharyngeal lesions or exudate. No oral or nasal sores. Slightly dry oral mucosa. NECK: No mass or asymmetry. No lymphadenopathy RESPIRATORY: Normal respiratory effort. Clear to auscultation bilaterally CARDIOVASCULAR: Regular in rate and rhythm without murmurs, rubs, or gallops ABDOMEN: Soft, nontender, nondistended NEUROLOGIC: No gross focal neurologic deficits. Cranial nerves II-XII grossly intact. SKIN: No rash, thickening, nodules, discoloration. Normal nails. MSK: Normal range of motion, no deformities, no swelling, and no tenderness in the hands, wrists, elbows, shoulders, spine, hips, knees, ankles, feet except as noted below: Tenderness as below No synovitis, dactylitis, enthesitis, tendinitis Squaring of CMC's bilaterally Joint Exam 11/28/2022 Right Left CMC Tender Tender MCP 1 Tender Tender PIP 3 Tender DIP 5 Tender Tender Knee Tender The following joints were examined and normal: Left Glenohumeral, Right Glenohumeral, Left Elbow, Right Elbow, Left Wrist, Right Wrist, Left MCP 2, Right MCP 2, Left MCP 3, Right MCP 3, Left MCP 4, Right MCP 4, Left MCP 5, Right MCP 5, Left IP, Right IP, Left PIP 2, Right PIP 2, Left PIP 3, Left PIP 4, Right PIP 4, Left PIP 5, Right PIP 5, Left Knee, Left Ankle, Right Ankle, Left Tarsometatarsal, Right Tarsometatarsal Joint Exam Data (across time) Joint Exam 11/28/2022 Total Tender 4 Total Swollen 0 LABS Reviewed in [facility], notable for: 06/2022: CHINMAY 1: 160 SSA >8.0 Otherwise negative NEELAM ESR 41 CRP 1.3 Normal SPEP Normal CK Normal TSH Negative RF Negative Lyme Normal C3, C4 CBC Latest Ref Rng & Units 08/01/2021 08/21/2021 10/16/2021 05/08/2022 WBC 3.70 - 11.00 k/uL 9.52 4.32 6.22 5.94 HEMOGLOBIN 11.5 - 15.5 g/dL 12.2 14.3 14.6 14.6 HEMOGLOBIN, STEPHANIE 11.5 - 15.5 g/dL - - - - HEMATOCRIT 36.0 - 46.0 % 39.0 44.3 46.9(H) 47.2(H) PLATELETS 150 - 400 k/uL 163 207 214 206 ABS NEUT (ANC) 1.45 - 7.50 k/uL - 2.45 3.58 3.26 ABS LYMPH 1.00 - 4.00 k/uL - 1.23 1.79 1.84 CMP Latest Ref Rng & Units 08/21/2021 10/16/2021 05/08/2022 09/09/2022 SODIUM 136 - 144 mmol/L 139 138 138 - SODIUM, STEPHANIE 132 - 148 mmol/L - - - - SODIUM, STEPHANIE 132 - 148 mmol/L - - - - POTASSIUM 3.7 - 5.1 mmol/L 3.8 4.0 4.2 - POTASSIUM, STEPHANIE 3.5 - 5.0 mmol/L - - - - CHLORIDE 97 - 105 mmol/L 103 102 101 - CHLORIDE, STEPHANIE 98 - 110 mmol/L - - - - CO2 22 - 30 mmol/L 24 25 25 - CO2, STEPHANIE 23.0 - 32.0 mmol/L - - - - GLUCOSE 74 - 99 mg/dL 99 93 90 - GLUCOSE, STEPHANIE 65 - 100 mg/dL - - - - BUN 7 - 21 mg/dL 14 16 17 - BUN, STEPHANIE 10 - 25 mg/dL - - - - CREATININE 0.58 - 0.96 mg/dL 1.09(H) 1.05(H) 0.98(H) - CREATININE (POCT) 0.7 - 1.4 mg/dL - - - - CREATININE, STEPHANIE 0.7 - 1.4 mg/dL - - - - CALCIUM, STEPHANIE 8.5 - 10.5 mg/dL - - - - CALCIUM, TOTAL 8.5 - 10.2 mg/dL 9.5 9.5 9.7 - AST 13 - 35 U/L 21 - - 14 AST, STEPHANIE 7 - 40 U/L - - - - ALT 7 - 38 U/L 18 - - 10 ALT, STEPHANIE 0 - 45 U/L - - - - ALKALINE PHOSPHATASE 34 - 123 U/L 84 - - 96 Uric Acid Latest Ref Rng & Units 07/01/2022 URIC ACID 2.5 - 6.6 mg/dL 4.1 ESR, WSR Latest Ref Rng & Units 11/23/2014 07/11/2020 07/01/2022 WSR 0 - 20 mm/hr 7 21(H) 41(H) CRP Latest Ref Rng & Units 07/11/2020 07/01/2022 CRP <0.9 mg/dL 0.7 1.3(H) C3, C4 Latest Ref Rng & Units 07/07/2022 C3 86 - 166 mg/dL 145 C4 13 - 46 mg/dL 35 CK Latest Ref Rng & Units 03/21/2021 07/07/2022 CK 42 - 196 U/L 49 29(L) RF and CCP Latest Ref Rng & Units 07/01/2022 RHEUMATOID FACTOR <16 IU/mL 15 Hepatitis Screen Latest Ref Rng & Units 07/14/2013 HEPAIGM NEGAT Negative HEPBCIGM NEGAT Negative HBSAGR NEGAT Negative Antibodies Latest Ref Rng & Units 12/24/2020 12/28/2020 07/26/2021 07/01/2022 CHINMAY Negative - - - Positive(A) CHINMAY TITER - - - - 1:160 CHINMAY PATTERN - - - - Nuclear coarse speckled DNA ANTIBODY W/CONFIRMATION <30 IU/mL - - - <12 MAILROOM PERSONNEL ANTIBODY QUAL Negative - - - Negative SSA ANTIBODY QUAL Negative - - - Positive(A) KELY-1 ANTIBODY, IGG <1.0 AI - - - <0.2 KELY 1 ANTIBODY QUAL Negative - - - Negative RIBOSOMAL MAILROOM PERSONNEL AB <1.0 AI - - - <0.2 RIBOSOMAL MAILROOM PERSONNEL QUAL Negative - - - Negative ANTI-SSA <1.0 AI - - - >8.0(H) ANTI-SSB <1.0 AI - - - <0.2 ANTI-SM <1.0 AI - - - <0.2 SM ANTIBODY Negative - - - Negative SCL-70 AB QUAL Negative - - - Negative SCL-70 ABS, EIA <1.0 AI - - - <0.2 CENTROMERE AB <1.0 AI - - - <0.2 CENTROMERE AB QUAL Negative - - - Negative CHROMATIN AB <1.0 AI - - - <0.2 CHROMATIN AB QUAL Negative - - - Negative PT SEC 9.7 - 13.0 sec 10.2 10.1 10.3 - PT INR 0.9 - 1.3 0.9 1.0 1.0 - PTT 23.0 - 32.4 sec - - 27.5 - Urinalysis Latest Ref Rng & Units 08/11/2022 09/02/2022 09/09/2022 09/23/2022 PROTEIN, URINE Negative Negative 2+(A) Negative - PROTEIN UA (POCT) Negative mg/dL - 100(A) - Negative RBC, URINE 0-3 /HPF 3-5 /HPF(A) >25 /HPF(A) 0-3 /HPF - IMAGING Reviewed in Epic, notable for: No relevant imaging ASSESSMENT Terri Burciaga is a 77 year old White female with a history of CKD, FRIEDA, GERD, hypertension, atrial tachycardia, low back pain with sciatica, osteopenia who presents to rheumatology clinic for evaluation of Sjogren's. Today she is presenting with sicca symptoms, fatigue, positive CHINMAY, positive SSA consistent with Sjogren's. At this time her disease seems mild without extraglandular involvement. Her fatigue is likely multifactorial particularly given poor sleep and noncompliance with CPAP. Discussed medication options including pilocarpine or cevimeline for her dryness. She declined due to sweating and potential side effect of dizziness. Discussed hydroxychloroquine for nonspecific symptoms such as brain fog, fatigue, cognitive dysfunction in the setting of Sjogren's. She notes medication sensitivity and does not want to add any additional medications if it is not going to change the course of her disease. Discussed nature of Sjogren's and long-term increased risk of malignancies, recommend age-appropriate cancer screening. We will get labs every 6 to 12 months with rheumatology as well. Will get x-ray of her right hip given recent fall and difficulty walking. Due for DEXA repeat, ordered. We will repeat ESR, CRP anytime along with CBC, CMP to follow-up on her elevated inflammatory markers. Low suspicion for GCA right now due to history of TMJ and years worth of jaw issues. Her headaches are intermittent and there is no temporal tenderness today. If she gets any visual symptoms or worsening headache, B symptoms, new jaw symptoms would recommend urgent evaluation for GCA. She has no PMR symptoms today including morning stiffness in the hips shoulders, significant pain. IMPRESSIONS Diagnoses: (M35.00) Sjoegren syndrome (HCC) (primary encounter diagnosis) (M25.551) Pain in right hip (M35.00) Sicca syndrome (HCC) (R53.81, R53.83) Malaise and fatigue (Z13.820) Encounter for screening for osteoporosis (R70.0) Elevated sed rate PLAN 1. Repeat labs anytime 2. X-rays anytime, will call with results 3. DEXA due, ordered 4. Recommend follow-up with PCP to discuss age-appropriate cancer screening particularly given her weight loss, due for mammogram. If she continues to have weight loss would recommend aragon scan to evaluate for malignancy given increased risk of malignancy in patients with Sjogren's 5. Can always consider cevimeline, pilocarpine, or hydroxychloroquine in the future if she is interested 6. Follow-up 6 months Orders this visit: Office Visit on 11/28/22 XR HIP GENERAL 3V PELV/AP/LAT RIGHT DXA-AXIAL SKELETON C-REACTIVE PROTEIN (CRP) SED RATE WESTERGREN COMP METABOLIC PANEL CBC + DIFF CONSULT TO RHEUM/IMMUN DISEASE Return in about 6 months (around 05/28/2023). I spent a total of 62 minutes on the date of the service which included preparing to see the patient, [id number] patient care, completing clinical documentation, obtaining and/or reviewing separately obtained history, performing a medically appropriate examination, counseling and educating the patient/family/caregiver, and ordering medications, tests, or procedures. This note was partially generated with the assistance of Ensenda voice recognition software. An attempt was made to correct any dictation errors however there may be some incorrect words, spellings, and punctuation. Maren Rhodes MD Rheumatology Date: November 28, 2022 Time: 3:13 PM documented in this encounter [facility] 11-28-2022 Instructions Maren Rhodes MD - 11/28/2022 3:01 PM EST Hip x ray anytime Bone density anytime Please get mammogram Talk to your eye doctor about if you would benefit from Restasis eye drops now that you have Sjogren's Follow up 6 months BONE MINERAL DENSITY PATIENT INSTRUCTIONS === Bone mineral density testing measures the amount of calcium in certain parts of your bones. This information determines how strong your bones are. The test is used to detect osteoporosis, a disease in which the bone's mineral content and density are low, increasing a person's risk of fractures. The lumbar spine (lower back) and the hip are the skeletal sites usually examined. For the test, remember that: 1. You cannot take this test if you are . 2. Eat a normal diet on the day of the test. 3. Take your medications as you normally would. 4. DO NOT take calcium supplements (such as Tums) for 24 hours before the test. 5. On the day of the test, leave valuables (jewelry or credit cards) at home. 6. The test should be performed prior to oral, rectal or IV contrast studies, or at least 7 days after any of these studies. For the test, you may be asked to wear a hospital gown. You will lie on your back, on a padded table, in a comfortable position. Generally, you can resume your usual activities immediately. documented in this encounter [facility] 10-24-2022 Miscellaneous Notes Sent in consult to physical therapy, confirmation number is [id number] documented in this encounter [facility] 10-23-2022 Note HNO ID: [id number] Author: Daisha Junior APRN.CIRCULAR RIPSAW OPERATOR Service: ? Author Type: Nurse Practitioner Type: Progress Notes Filed: 10/23/2022 2:58 PM Note Text: [facility] [place] [facility] Today's Date: 10/23/2022 Last Visit: N/A Name: Terri Burciaga : 1945 Purpose: New Patient Consultation Chief complaint: Low Back Pain Interval History: N/A Initial HPI: (Obtained on 10/23/2022) Terri Burciaga is a 77 year old year-old female; who presents having been referred by Luc Faustin, for evaluation and management of the above-mentioned chief complaint. This has been present for the past ~4 months. The onset of symptoms was gradual onset and was without associated trauma. Reports her pain progressively got worse in Jul with no improvement. Reports PT and medications have been ineffective. Denies previous lumbar surgeries. Treatments to date include the following: Medications (See below), Modalities (eg. Heat, Ice), and Physical Therapy . Pain Description: Timing: constant Character: Throbbing and Aching Primary Location: Low Back Radiation: RIGHT posterior hip and into her calf Exacerbating factors: unable to pinpoint exacerbating factors/positions Relieving factors: heat and unable to pinpoint positions/factors that are mitigating Interferes with: physical activity and work The patient denies difficulty with bowel or bladder control or leg weakness. Current Status: INTAKE PAIN ASSESSMENT 10/21/2022 10/23/2022 Are you having pain associated with your visit today? - Yes, Provider notified Pain Scales - Verbal (Numeric Rating or Visual Analog Scale) Pain Level 6 7 Pain Location - Back-Lower Description - Aching Duration Amount of Time - 4 Duration Units - Months Frequency - Continuous Intervention/Comfort measure - Reposition;Relaxation;Positioning Comments - - Pain Assessment - - Current Pain Medications: Opioids: Tramadol (PCP) not taking now NSAIDS: Contraindicated Anti-depressants: Anti-convulsants: Muscle relaxants: Flexeril Others: OTC Tylenol Analgesia: partially adequate Current Anti-Coagulant Use: No Allergies: ALLERGIES Allergen Reactions Cigarette Smoke [Ot* Cough, Itching, Shortness of Breath Adhesive Tape (Deyanira* Itching Aleve [Naproxen Sod* GI Upset Ativan [Lorazepam] Other: See Comments depression Cats Lopressor [Metoprol* Mental Status Change Nickel Rash Norvasc [Amlodipine* Swelling Swelling to feet and ankles Sulfa (Sulfonamide * severe headache Vioxx [Rofecoxib] GI Upset Data Reviewed: Reviewed personally on today's date 10/23/2022 Relevant Imaging: MRI Spine Report MRI LUMBAR SPINE WO IVCON Exam End: 09/05/2022 8:43 AM (Final result) Narrative: * * *Final Report* * * DATE OF EXAM: Sep 05 2022 8:43AM [id number] - MRI LUMBAR SPINE WO IVCON / PROCEDURE REASON: multiple diagnoses * * * * Physician Interpretation * * * * EXAMINATION: MRI LUMBAR SPINE WO IVCON CLINICAL HISTORY: Right lumbar radiculitis. Lumbar stenosis with neurogenic claudication. TECHNIQUE: Routine lumbosacral spine MR protocol without gadolinium. MQ: [id number] COMPARISON: None. RESULT: Counting reference: Lumbosacral junction. For the purposes of this report, L4-5 is considered the level of the iliac crest and assume there are 5 lumbar-type vertebrae. Anatomic variant: None. Localizer images: Cholelithiasis. Small kidneys with small renal cysts visible on liquid fertilizer servicer imaging. Tiny hepatic hyperintensities most likely small cysts or hemangiomas, too small to characterize on liquid fertilizer servicer images. Alignment: Alignment is anatomic. Bone marrow signal/fracture: No evidence of pathologic marrow infiltration. No evidence of prior fracture. Conus: The conus is within normal limits of signal intensity and morphology. Paraspinal soft tissues: Paraspinal soft tissues are within normal limits. Lower thoracic spine: T10-11 disc height loss. Canal and foramina are patent. T12-L1: Canal and foramina are patent. L1-L2: Mild disc height loss. Minimal facet degenerative change. Canal and foramina remain patent. L2-L3: Canal and foramina are patent L3-L4: Mild disc height loss with moderate facet degenerative change. Canal and foramina are patent. L4-L5: Disc spaces maintained. There is advanced facet arthropathy. Canal and foramina are patent. L5-S1: Disc height loss with central and left paracentral disc extrusion narrowing the subarticular recesses bilaterally. There is mass effect on the left traversing S1 nerve root (T2 image 24) and contact with the right traversing S1 nerve root (axial T2 image 25), either which could cause radiculopathy. Minimal foraminal narrowing. The canal overall remains patent. Sacrum and iliac wings: The visualized sacrum and iliac wings are within normal limits. Impression: IMPRESSION: Mild degenerative change in the lumbar spine. (more content not included)... [facility] 10-23-2022 Note HNO ID: [id number] Author: Lanny Rizvi MA Service: ? Author Type: Civil Attorney Type: Progress Notes Filed: 10/23/2022 2:58 PM Note Text: Review of Systems Constitutional: Negative for activity change, chills, fever and unexpected weight change. Gastrointestinal: Negative for bowel retention or incontinence Genitourinary: Negative for difficulty urinating. Negative for bladder retention or incontinence Musculoskeletal: Positive for arthralgias, back pain, gait problem and myalgias. Negative for joint swelling, neck pain and neck stiffness. Neurological: Negative for weakness, numbness and headaches. Psychiatric/Behavioral: Positive for dysphoric mood. Negative for sleep disturbance and suicidal ideas. The patient is nervous/anxious. [facility] 10-23-2022 Instructions Daisha Junior APRN.CIRCULAR RIPSAW OPERATOR - 10/23/2022 2:58 PM EST Activity as tolerated Use Ice and/or heat as tolerated as needed Epidural Steroid Injection What is an epidural steroid injection? An epidural steroid injection is placement of a dose of corticosteroid medication through a needle into the epidural space in the spine. The epidural space is in the area around the spinal nerves, next to the tough covering that surrounds them, called the dura. What are the goals of an epidural steroid injection? The goals of an epidural steroid injection are: to reduce and possibly eliminate pain in the legs and low back to increase function, and to possibly eliminate the need for surgery How will an epidural steroid injection help my condition? The corticosteroid medication in an epidural steroid injection is similar to the Corticosteroid chemical that is normally manufactured by your body. Corticosteroids act To decrease inflammation and swelling that can cause pain and limit function. To obtain the best benefit with the least side effects, the amount of corticosteroid in an Epidural steroid injection is carefully monitored. You will be limited to no more than 3 of these procedures in a 6-month period. If you are diabetic, your blood sugar may Increase slightly after the procedure. Therefore, diabetics should monitor their blood Sugar closely as well as monitor for dehydration due to increased urine output after the Procedure. How do I prepare for an epidural steroid injection? Please do not eat or drink anything 2 hours prior to the procedure. You MUST HAVE a person accompany you to drive you home after the procedure. This person must be present at the time of check in. If no courier driver is obtained, your procedure will be cancelled. Please let us know if you have any allergies to contrast material (dyes used for medical Studies), medications, seafood, shellfish, or latex, we may need to modify your procedure. Please call [phone] to cancel your appointment if you have a fever, the flu, a cold or another infection. What happens during an epidural steroid injection? You will be positioned lying on your stomach The area for the injection will be washed with an antiseptic solution and covered With sterile drapes The doctor will inject local anesthetic to numb the injection site The doctor will us fluoroscopy (a special x-ray technique) to guide the placement Of the needle You may feel pressure while the doctor finds the epidural space and while the Medication is injected into the space. For your comfort, the doctor will inject the Medication slowly You may experience a mild shooting pain down the leg during injection of medication which is normal How long is the procedure? The entire procedure lasts about 10 minutes What complications might occur? Bleeding Infection at the injection site Increased pain at the injection site Nerve damage What happens after the procedure? After the procedure, a dressing is applied at the injection site You will be taken to the recovery area where clinical staff will monitor your Blood pressure and pulse Discharge instructions will be reviewed with you and you will be given a copy of The instructions The steroid medication takes some time to act. You may not feel pain relief until 72 hours after your procedure The day after your procedure, you may resume normal daily activities Common side effects: You may have mild back pain and soreness for 2-3 days after the procedure Flushing Leg cramps For females, irregular menses Hyperactivity If you have any questions about the procedure or your pain control, please call [facility] at [phone] When to call [facility]: If you notice severe pain lasting more than 2-3 days Swelling or redness near or at the injection site Fever/chills Headache that is severe, light sensitive, positional, and accompanied by nausea and/or vomiting documented in this encounter [facility] 10-23-2022 History of Present illness Narrative [facility] [place] [facility] Today's Date: 10/23/2022 Last Visit: N/A Name: Terri Burciaga : 1945 Purpose: New Patient Consultation Chief complaint: Low Back Pain Interval History: N/A Initial HPI: (Obtained on 10/23/2022) Terri Burciaga is a 77 year old year-old female; who presents having been referred by Luc Faustin, for evaluation and management of the above-mentioned chief complaint. This has been present for the past ~4 months. The onset of symptoms was gradual onset and was without associated trauma. Reports her pain progressively got worse in Jul with no improvement. Reports PT and medications have been ineffective. Denies previous lumbar surgeries. Treatments to date include the following: Medications (See below), Modalities (eg. Heat, Ice), and Physical Therapy . Pain Description: Timing: constant Character: Throbbing and Aching Primary Location: Low Back Radiation: RIGHT posterior hip and into her calf Exacerbating factors: unable to pinpoint exacerbating factors/positions Relieving factors: heat and unable to pinpoint positions/factors that are mitigating Interferes with: physical activity and work The patient denies difficulty with bowel or bladder control or leg weakness. Current Status: INTAKE PAIN ASSESSMENT 10/21/2022 10/23/2022 Are you having pain associated with your visit today? - Yes, Provider notified Pain Scales - Verbal (Numeric Rating or Visual Analog Scale) Pain Level 6 7 Pain Location - Back-Lower Description - Aching Duration Amount of Time - 4 Duration Units - Months Frequency - Continuous Intervention/Comfort measure - Reposition;Relaxation;Positioning Comments - - Pain Assessment - - Current Pain Medications: Opioids: Tramadol (PCP) not taking now NSAIDS: Contraindicated Anti-depressants: Anti-convulsants: Muscle relaxants: Flexeril Others: OTC Tylenol Analgesia: partially adequate Current Anti-Coagulant Use: No Allergies: ALLERGIES Allergen Reactions Cigarette Smoke [Ot* Cough, Itching, Shortness of Breath Adhesive Tape (Deyanira* Itching Aleve [Naproxen Sod* GI Upset Ativan [Lorazepam] Other: See Comments depression Cats Lopressor [Metoprol* Mental Status Change Nickel Rash Norvasc [Amlodipine* Swelling Swelling to feet and ankles Sulfa (Sulfonamide * severe headache Vioxx [Rofecoxib] GI Upset Data Reviewed: Reviewed personally on today's date 10/23/2022 Relevant Imaging: MRI Spine Report MRI LUMBAR SPINE WO IVCON Exam End: 09/05/2022 8:43 AM (Final result) Narrative: * * *Final Report* * * DATE OF EXAM: Sep 05 2022 8:43AM WR [id number] - MRI LUMBAR SPINE WO IVCON / PROCEDURE REASON: multiple diagnoses * * * * Physician Interpretation * * * * EXAMINATION: MRI LUMBAR SPINE WO IVCON CLINICAL HISTORY: Right lumbar radiculitis. Lumbar stenosis with neurogenic claudication. TECHNIQUE: Routine lumbosacral spine MR protocol without gadolinium. MQ: [id number] COMPARISON: None. RESULT: Counting reference: Lumbosacral junction. For the purposes of this report, L4-5 is considered the level of the iliac crest and assume there are 5 lumbar-type vertebrae. Anatomic variant: None. Localizer images: Cholelithiasis. Small kidneys with small renal cysts visible on liquid fertilizer servicer imaging. Tiny hepatic hyperintensities most likely small cysts or hemangiomas, too small to characterize on liquid fertilizer servicer images. Alignment: Alignment is anatomic. Bone marrow signal/fracture: No evidence of pathologic marrow infiltration. No evidence of prior fracture. Conus: The conus is within normal limits of signal intensity and morphology. Paraspinal soft tissues: Paraspinal soft tissues are within normal limits. Lower thoracic spine: T10-11 disc height loss. Canal and foramina are patent. T12-L1: Canal and foramina are patent. L1-L2: Mild disc height loss. Minimal facet degenerative change. Canal and foramina remain patent. L2-L3: Canal and foramina are patent L3-L4: Mild disc height loss with moderate facet degenerative change. Canal and foramina are patent. L4-L5: Disc spaces maintained. There is advanced facet arthropathy. Canal and foramina are patent. L5-S1: Disc height loss with central and left paracentral disc extrusion narrowing the subarticular recesses bilaterally. There is mass effect on the left traversing S1 nerve root (T2 image 24) and contact with the right traversing S1 nerve root (axial T2 image 25), either which could cause radiculopathy. Minimal foraminal narrowing. The canal overall remains patent. Sacrum and iliac wings: The visualized sacrum and iliac wings are within normal limits. Impression: IMPRESSION: Mild degenerative change in the lumbar spine. No high-grade canal stenosis. L5-S1 disc extrusion with bilateral lateral components contacting both S1 nerve roots in the lateral recesses, potentially causing radiculopathy of either side. Anatomic Thoracic/Lumbar Variant: None. L4-5 is considered the level of the iliac crest and assume there are 5 lumbar-type vertebrae. Medical Clerk: [facility] Transcribe Date/Time: Sep 05 2022 8:57A Dictated by : PRABHJOT MORROW MD This examination was interpreted and the report reviewed and electronically signed by: PRABHJOT MORROW MD on Sep 05 2022 9:00AM EST XR Lumbar Spine 08/26/22: FINDINGS: There are five [id number] lumbar vertebrae. No fracture or subluxations are noted. The disc spaces are well preserved. There is mild osteophyte formation in the lumbar spine. Large osteophytes seen in the lower thoracic spine. Kissing spine visualized on lateral view. The bones are osteopenic. Others: There are tiny radiopaque opacities overlying the right kidney, raising concern for kidney or gallbladder stones. Pain Procedures: DATE PROCEDURE IMPROVEMENT None to date at this practice Compliance: PDMP website checked and validated. All prescriptions have been APPROPRIATELY filled. No suspicious activity was identified. 10/23/2022 by Daisha Junior APRN.CIRCULAR RIPSAW OPERATOR Last Drug screen: Not Applicable Risk Assessment: FADY-7: FADY - 7 SCORES 10/23/2022 FADY-7 Score 0 (0-4) minimal anxiety, (5-9) mild anxiety, (10-14) moderate anxiety, (15-21) severe anxiety PHQ-9: PHQ-9 10/23/2022 Score 3 (0-4) minimal depression, (5-9) mild depression, (10-14) moderate depression, (15-19) moderately severe depression, (20-27) severe depression Opioid Risk Tool: Family History of Substance Abuse: 0 - No Personal History of Substance Abuse: 0 - No Age between 16-45: 0 - No History of Pre-Adolescence Sexual Abuse: 0 - No Psychological Disease: 0 - No Risk Total: 0 Total Score Risk Category: Low Risk 0-3 (0-3, low risk or no risk; 4-7, moderate risk, 8+, high risk) Current Medications, Past Medical History, Past Surgical History, Family History, Social History and Review of Systems: On today's date, 10/23/2022, noted above, I have confirmed and edited as necessary, the PFSH and ROS obtained by others. Physical Exam: 10/23/22 1414 Pulse: 71 Resp: 16 SpO2: 96% Constitutional:obese HEENT: Normal Cephalic, Atraumatic, Non-icteric sclera Eyes: Conjunctiva clear. No discharge from eyes Cardiovascular: Appears well perfused Lymphatic: No visible regional lymphadenopathy Skin: No visible rashes or ecchymosis Psychiatric: Full affect, Alert, Pleasant LUMBAR MUSCULOSKELETAL/NEURO EXAM Inspection: - Symmetric without atrophy Posture: Slouching posture Gait: Antalgic, ambulates with cane Palpation: - Lumbar Paraspinal Tenderness: Concordant in the Right lumbar paraspinals - Paraspinal Spasms: None - Facet Loading: Right-negative; Left-negative - Greater Trochanter: None tenderness Bilateral Strength: LEFT RIGHT Iliopsoas (L2) 5 5 Quadriceps (L3) 5 5 Anterior Tibialis (L4): 5 5 Exten Hallucis Longus (L5) 5 5 Gastrocnemius (S1): 5 5 Muscle Tone: - Normal and symmetric Neural Tension Signs: -Straight Leg Exam Positive; 75 degrees Right lower limb(s) -Contralateral Straight Leg Raise Negative Bilateral lower limb(s) Sensation: - intact to light touch in the L2-S2 Bilateral lower limb dermatomes Reflexes: LEFT RIGHT Patellar (L4) Decreased 1+ Decreased 1+ Achilles (S1) Decreased 1+ Decreased 1+ Clonus Negative Negative Sacroiliac Maneuvers: - SIJ tenderness: Negative Bilateral Diagnoses: (M48.062) Spinal stenosis, lumbar region with neurogenic claudication (primary encounter diagnosis) (M54.31) Sciatica, right side (G89.29) Other chronic pain Impression & Plan: 77 year old female with significant past medical history for anxiety, FRIEDA, HTP, GERD Stage III CKD, thyroid who presents with complaint(s) of acute on chronic low back and RIGHT sided radicular symptoms and pain. No injury Lumbar MRI was reviewed, she has mild multilevel degenerative changes. She has small HNP at L5/S1 with compression of BL S1 NR, L >R. Overall patent central canal. Patient is primarily symptomatic on the RIGHT side. She has not been response to PT, Tylenol, medrol or Tramadol. NSAIDS are contraindicated due to kidney disease. We discussed potential treatment options including injection therapy vs AED's. She is apprehensive to discuss injections or medications. Reports she has had gabapentin in the past with intolerable side effects. She does not like taking medications. Terri Burciaga would benefit from the following to decrease pain, improve function and/or work participation, and improve quality of life: Medications: Refill: Requested Prescriptions No prescriptions requested or ordered in this encounter Continue OTC Tylenol 1 gm PO TID prn FADY-7/PHQ-2, and ORT: 10/23/2022 Completed and reviewed, low risk Functional Presybeterian: Physical Therapy (Aquatic) Additional Studies: None Referrals: None Additional: At this time she would like to try some additional conservative treatment and evaluate her response Consider TFESI RIGHT L5/S1 vs IESI Consider starting AED (Lyrica low dose) Patient is happy and agreeable with this plan. All questions were answered and patient verbalized understanding. Depending on response to the above plan, consider: Follow-up: 4-6 weeks for evaluation of response to treatment plan and optimization Attribution: In addition to reviewing the information noted above, some elements copied from my most recent clinical note(s), including the physical exam (completed in entirety today), and the impression and plan sections, have been updated where appropriate. All reflect current medical decision making from today's date. Daisha Junior APRN.[facility] Review of Systems Constitutional: Negative for activity change, chills, fever and unexpected weight change. Gastrointestinal: Negative for bowel retention or incontinence Genitourinary: Negative for difficulty urinating. Negative for bladder retention or incontinence Musculoskeletal: Positive for arthralgias, back pain, gait problem and myalgias. Negative for joint swelling, neck pain and neck stiffness. Neurological: Negative for weakness, numbness and headaches. Psychiatric/Behavioral: Positive for dysphoric mood. Negative for sleep disturbance and suicidal ideas. The patient is nervous/anxious. documented in this encounter [facility] 10-21-2022 History of Present illness Narrative Episode Visit Count: 11 Therapist That Will Accept/Oversee The Plan Of Care: Juliann Guido PT Start of Care Date: 08/27/22 Onset Date: 08/13/22 Plan of Care Certification Date: 09/30/22 Next Certification Due Date: 11/11/22 Patient Identified by Name and Date of : Yes REHABILITATION AND SPORTS THERAPY PHYSICAL THERAPY TREATMENT NOTE ASSESSMENT: Terri Burciaga tolerated the session with no issues. She demonstrated improvements in centralized pain after manual traction and overall decreased pain with functional activities. . The patient will continue to benefit from ongoing skilled physical therapy to progress toward set goals. PLAN FOR NEXT VISIT: POC SUBJECTIVE: Patient Reason for Visit: Pt notes that towel roll for sitting has been very helpful . She notes that some days she does not have much pain but when she drives alot and gets in and out of car it bothers her more Pain: Pain Pain Level: 6 Pain Location: Low Back/Lumbar Spine - Right;Thigh - Right;Calf - Right (not to toes) Post Treatment Pain Post Treatment Pain Level: 6 Post Treatment Pain Location: Buttocks - Right (centralized to buttocks only) OBJECTIVE MEASURES WITH LEVEL OF FUNCTION: no gait deviation with ambulation . Using st. cane TREATMENT: Therapeutic Exercise: 2: seated piriformis stretch with right foot on foot stool and gentle stretch across body with left hand . 10 sec hold 5 sets 5-6 Skilled Intervention: Patient was educated in proper exercise technique and purpose for exercises. Skilled judgment was provided in selection of appropriate interventions. Correct performance of therapeutic exercises was facilitated with verbal and visual cuing. Manual Therapy: 1: Manual lumbar traction with BLE elevated in stool with knees and hips at 90 degrees x 15minutes Skilled Intervention: Manual skills to improve joint mobility, ROM, and decrease pain. Utilized anatomy knowledge of the therapist, and assessment of patient's response to intervention. Billing Therapeutic Exercise Treatment Minutes: 15 Manual TherapyTreatment Minutes: 15 Total Treatment Time Minutes (timed/untimed): 30 Juliann Guido PT documented in this encounter [facility] 10-17-2022 History of Present illness Narrative Episode Visit Count: 10 Therapist That Will Accept/Oversee The Plan Of Care: Juliann Guido PT Start of Care Date: 08/27/22 Onset Date: 08/13/22 Plan of Care Certification Date: 09/30/22 Next Certification Due Date: 11/11/22 Patient Identified by Name and Date of : Yes REHABILITATION AND SPORTS THERAPY PHYSICAL THERAPY TREATMENT NOTE ASSESSMENT: Terri Burciaga tolerated the session with decreased symptoms. She demonstrated relief felt after trigger point release to R glute and piriformis. . The patient will continue to benefit from ongoing skilled physical therapy to progress toward set goals. PLAN FOR NEXT VISIT: continue with increased time of manual traction SUBJECTIVE: Patient Reason for Visit: Pt reports that she can do a few days of feeling good with decreased symptoms and walking better, but then symptoms increase again. Pt states that the previous 2 days her pain has been a 5/10. Pt did a lot of walking yesterday and may be why she's a little flared up today. Pt states that the towel roll in the car seems to be helping quite a bit. Pt would like to have trigger point massage done to R buttock this visit if possible. Pain: Pain Pain Level: 7 Pain Location: Low Back/Lumbar Spine - Right;Leg - Right Frequency: Continuous Post Treatment Pain Post Treatment Pain Level: Better Post Treatment Symptoms: not as bad OBJECTIVE MEASURES WITH LEVEL OF FUNCTION: TREATMENT: Therapeutic Exercise: 2: seated piriformis stretch with right foot on foot stool and gentle stretch across body with left hand . 10 sec hold 5 sets 5-6 3: *discussed HEP and which exercises to still be continuing at home Skilled Intervention: Patient was educated in proper exercise technique and purpose for exercises. Skilled judgment was provided in selection of appropriate interventions. Correct performance of therapeutic exercises was facilitated with verbal cuing. Manual Therapy: 1: Manual lumbar traction with BLE elevated in stool with knees and hips at 90 degrees x 15minutes 2: triggger point release to R piriformis and glute with pt in sidelying intermittent x 6 minutes Skilled Intervention: Manual skills to improve joint mobility, ROM, and decrease pain. Utilized anatomy knowledge of the therapist, and assessment of patient's response to intervention. Billing Therapeutic Exercise Treatment Minutes: 13 Manual TherapyTreatment Minutes: 25 Total Treatment Time Minutes (timed/untimed): 38 [place] PTA/Juliann Guido PT documented in this encounter [facility] 10-10-2022 History of Present illness Narrative Episode Visit Count: 9 Therapist That Will Accept/Oversee The Plan Of Care: Juliann Guido PT Start of Care Date: 08/27/22 Onset Date: 08/13/22 Plan of Care Certification Date: 09/30/22 Next Certification Due Date: 11/11/22 Patient Identified by Name and Date of : Yes REHABILITATION AND SPORTS THERAPY PHYSICAL THERAPY TREATMENT NOTE ASSESSMENT: Terri Burciaga tolerated the session with no issues. She demonstrated improvements in further centralization of sx with ex and manual traction . The patient will continue to benefit from ongoing skilled physical therapy to progress toward set goals. PLAN FOR NEXT VISIT: continue with increased time of manual traction SUBJECTIVE: Patient Reason for Visit: Pt notes that yesterday she had pain all the way down to her foot but today it is only to just below the knee. piriformis ex going well Pain: Pain Pain Level: 8 Pain Location: Low Back/Lumbar Spine - Right;Leg - Right Frequency: Continuous Post Treatment Pain Post Treatment Pain Level: Better Post Treatment Symptoms: only to the knee OBJECTIVE MEASURES WITH LEVEL OF FUNCTION: mild antalgic gait pattern TREATMENT: Therapeutic Exercise: 2: seated piriformis stretch with right foot on foot stool and gentle stretch across body with left hand . 10 sec hold 2 sets 5-6 3: pt continues to perform TA exs at home Skilled Intervention: Skilled judgment was provided in selection of appropriate interventions. Correct performance of therapeutic exercises was facilitated with verbal and visual cuing. Patient education as noted. Manual Therapy: 1: Manual lumbar traction with BLE elevated in stool with knees and hips at 90 degrees x 12minutes Skilled Intervention: Manual skills to improve joint mobility, ROM, and decrease pain. Utilized anatomy knowledge of the therapist, and assessment of patient's response to intervention. Self-Correction Management: 1: discussed with trial of towel roll for mumbar support with foot on stool for sitting with relief of pressure feeling in buttock Skilled Intervention: Skilled judgment in the selection of proper modification for activity of daily living/home management based on clinical presentation, deficits, and needs. Home Exercise Program Assigned: 1: add lumbar roll for sitting and driving Billing Therapeutic Exercise Treatment Minutes: 5 Manual TherapyTreatment Minutes: 12 Self-Care/Home Management Treatment Minutes: 5 Total Treatment Time Minutes (timed/untimed): Juliann Guido PT documented in this encounter [facility] 10-07-2022 History of Present illness Narrative Episode Visit Count: 8 Therapist That Will Accept/Oversee The Plan Of Care: Juliann Guido PT Start of Care Date: 08/27/22 Onset Date: 08/13/22 Plan of Care Certification Date: 09/30/22 Next Certification Due Date: 11/11/22 Patient Identified by Name and Date of : Yes REHABILITATION AND SPORTS THERAPY PHYSICAL THERAPY TREATMENT NOTE ASSESSMENT: Terri Burciaga tolerated the session with decreased symptoms. She demonstrated improvements in centralization of pain . The patient will continue to benefit from ongoing skilled physical therapy to progress toward set goals. PLAN FOR NEXT VISIT: continue with manual traction. Increase time of hold SUBJECTIVE: Patient Reason for Visit: Pt notes that the new ex was very helpful. When she left after last session no pain below the knee until driving Thursday. Overall doing better Pain: Pain Pain Level: 8 Pain Location: Low Back/Lumbar Spine - Right;Leg - Right Description: Aching Frequency: Continuous Post Treatment Pain Post Treatment Pain Level: Better Post Treatment Pain Location: Thigh - Right;Low Back/Lumbar Spine - Right OBJECTIVE MEASURES WITH LEVEL OF FUNCTION: antalgic transfer onto plinth TREATMENT: Therapeutic Exercise: 2: seated piriformis stretch with right foot on foot stool and gentle stretch across body with left hand . 10 sec hold x3 (reviewed verbally) Skilled Intervention: Skilled judgment was provided in selection of appropriate interventions. Correct performance of therapeutic exercises was facilitated with verbal cuing. Manual Therapy: 1: Manual lumbar traction with BLE elevated in stool with knees and hips at 90 degrees x 10 minutes Skilled Intervention: Manual skills to improve joint mobility, ROM, and decrease pain. Utilized anatomy knowledge of the therapist, and assessment of patient's response to intervention. Billing Therapeutic Exercise Treatment Minutes: 5 Manual TherapyTreatment Minutes: 10 Total Treatment Time Minutes (timed/untimed): 15 Juliann Guido PT documented in this encounter [facility] 09-30-2022 History of Present illness Narrative Episode Visit Count: 7 Therapist That Will Accept/Oversee The Plan Of Care: Juliann Guido PT Start of Care Date: 08/27/22 Onset Date: 08/13/22 Plan of Care Certification Date: 09/30/22 Next Certification Due Date: 11/11/22 Patient Identified by Name and Date of : Yes REHABILITATION AND SPORTS THERAPY PHYSICAL THERAPY PROGRESS REPORT PLAN OF CARE UPDATE: Assessment: Terri Burciaga demonstrates minimal improvement in standing, walking, and physical activities. She hasprogressed toward goals. Patient continues to present with impairments in ADL's, independence in exercise, overall function, range of motion, strength , and symptom management that interfere with . Current prognosis is Fair due to: limited tolerance to activity within-session changes. She will benefit from continued skilled therapy services to meet the updated goals for this plan of care as noted below. Goals for Episode of Care: created on 08/27/22 through 10/08/22 updated 09/30/22 Independent in home exercises./ partially achieved Patient will decrease pain to <8/10 at rest and with functional activities to allow patient to improve ambulation, transfers, and standing tolerance for ADLs./ partially achieved Restore pain-free lumbar ROM to moderate to minimal limitation grossly to allow for ADLs./ not achieved Stand / Walk 45 min to 1 hour without increased pain/symptoms./ not achieved Sleep through night without pain/symptoms./ partially achieved Maintain proper sitting posture throughout session/ achieved Patient will be able to tolerate sleeping without interruption for 4-5 consecutive hours , driving for 1 hour , and work activities for 2-3 hours without increased symptoms./ partially achieved Knowledgeable regarding prophylaxis./ partially achieved Patient Goals: reduce low back pain with work and ADLs/ partially achieved Planned Interventions, Frequency, and Duration: 2x/week, 6 weeks Total Number of Visits Planned: 12 Patient to be seen for Therapeutic exercise (08185);Neuromuscular re-education (18561);Manual therapy (97562);Therapeutic activities (78568);Self-intermediate management (08121);Gait Training (24996);Patient/Family/Caregiver Education PLAN FOR NEXT VISIT: assess reponse of piriformis mm stretch. Continue manual traction SUBJECTIVE: Patient Reason for Visit: Pt notes that she continues to have terrible pain from hip/ back and leg to outside of foot to 5th toe. Notes that she felt she was doing better until performing hooklying rotations and SKC exs. Reports some centralization of sx with foot propped on foot stool . ( no foot or calf pain). Pain: Pain Pain Level: 10 Pain Location: Low Back/Lumbar Spine - Right Description: Aching Frequency: Continuous Post Treatment Pain Post Treatment Pain Level: Better Post Treatment Pain Location: Thigh - Right;Low Back/Lumbar Spine - Right PROMIS Scales T-scores: mean of general population = 50. 5 points is clinically meaningfully difference Percentiles provide an indication of how the patient's score ranks in relation to the general population. Higher percentile rankings indicate better function/quality of life. 50th percentile is the average of the general population and indicates half of respondents had a worse score. T-scores: mean of general population = 50. 5 points is clinically meaningfully difference Percentiles provide an indication of how the patient's score ranks in relation to the general population. Higher percentile rankings indicate better function/quality of life. 50th percentile is the average of the general population and indicates half of respondents had a worse score. OBJECTIVE MEASURES WITH LEVEL OF FUNCTION: LE Flexibility Flexibility: Piriformis Flexibility R Piriformis Flexibility: moderate tightness, no increased sx with stretching LE Strength Trunk Strength: 3/5 Functional Strength Functional Strength: pain and difficulty with transfers and daily tasks TREATMENT: Therapeutic Exercise: 1: seated TA 1x5 2: seated piriformis stretch with right foot on foot stool and gentle stretch across body with left hand . 10 sec hold x3 3: education and discussion regarding appropriate response of ex, centralization 4: discussed response of sidelying nerve glide which was increased leg pain so discontinued Skilled Intervention: Patient was educated in proper exercise technique and purpose for exercises. Reviewed and educated patient on additions/changes for home exercise program . Skilled judgment was provided in selection of appropriate interventions. Provided written instruction for home exercise program to facilitate proper performance and compliance. Correct performance of therapeutic exercises was facilitated with verbal and visual cuing. Patient education as noted. Manual Therapy: 1: Manual lumbar traction with BLE elevated in stool with knees and hips at 90 degrees x 10 minutes Skilled Intervention: Manual skills to improve joint mobility, ROM, and decrease pain. Utilized anatomy knowledge of the therapist, and assessment of patient's response to intervention. Home Exercise Program Assigned: 1: add gentle seated piriformis stretch Billing Therapeutic Exercise Treatment Minutes: 30 Manual TherapyTreatment Minutes: 8 Juliann Guido PT documented in this encounter [facility] 09-25-2022 Miscellaneous Notes Scheduled 10/23/22. Valorie Castañeda Ma Telephone on 08/27/22 CONSULT TO PAIN MGT ThanksIsreal PA-C Call to pt and notified her of response below. Pt agreeable to pain mgmt. Please place order, then route to pain mgmt to contact pt. Pt notified that she is also able to go outside [facility] if wanting. Valorie Castañeda Ma ----- Message from Luc Faustin PA-C sent at 08/27/2022 9:33 AM EDT ----- Please advise x-ray shows some degenerative changes, she has large osteophytes/spurs which are likely causing irritation. If interested, pain management might be able to help and I can place a consult. Let me know. Thanks, Isreal Faustin PA-C documented in this encounter [facility] 09-23-2022 History of Present illness Narrative NEW PATIENT HISTORY AND PHYSICAL EXAM PATIENT INFO: Terri Burciaga 76 year old REFERRING PROVIDER: Data Unavailable PCP: Andre Santana MD HPI Terri Burciaga is a 76 year old female refer for incomplete bladder emptying and abnormal urinalysis. Symptoms of incomplete bladder emptying have subsided. Repeat urinalysis actually ok. Currently no luts. No fever. No uti. Feels well otherwise. Renal us ok. Pvr 0 today Review of Systems Constitutional: Negative. Respiratory: Negative. Cardiovascular: Negative. Gastrointestinal: Negative. Genitourinary: Negative. Skin: Negative. Neurological: Negative. Psychiatric/Behavioral: Negative. LAB: Creatinine Date Value Ref Range Status 05/08/2022 0.98 (H) 0.58 - 0.96 mg/dL Final No results found for: PSA Glucose, Urine Date Value 09/09/2022 Negative 07/26/2021 Negative mg/dL Bilirubin, Urine (no units) Date Value 09/09/2022 Negative 07/26/2021 Negative Ketones, Urine (no units) Date Value 09/09/2022 Negative 07/26/2021 Negative Specific [place], Ur (no units) Date Value 09/09/2022 1.005 07/26/2021 1.021 Hemoglobin/Blood,Ur Date Value 09/09/2022 2+ 07/26/2021 Negative pH, Urine (no units) Date Value 09/09/2022 6.5 07/26/2021 6.0 Protein, Urine (no units) Date Value 09/09/2022 Negative 07/26/2021 Negative Urobilinogen, Urine (EU) Date Value 07/22/2018 normal Nitrites (no units) Date Value 09/09/2022 Negative 07/26/2021 Negative Leukocytes (no units) Date Value 07/22/2018 trace WBC, Urine Date Value 09/09/2022 0-5 /HPF 01/06/2020 0-5 /HPF Color/Appearance (comment:) Date Value 07/22/2018 yellow/clear MEDICATIONS: predniSONE (DELTASONE) 10 mg tablet Take 4 tabs daily x 3 days, then 3 tabs x 3 days, 2 tabs x 3 days, then 1 tab x3 days with food. traMADol (ULTRAM) 100 mg tablet Take 1 tablet by mouth every 6 hours as needed for pain for up to 60 days. [id number] 1 mg-25 mg-12.5 mg-1 mg tab Take by mouth. cyclobenzaprine (FLEXERIL) 5 mg tablet Take 1 tablet by mouth three times daily as needed. cloNIDine HCl (CATAPRES) 0.1 mg tablet Take 1 tablet by mouth daily at bedtime. losartan (COZAAR) 100 mg tablet Take 1 tablet by mouth once daily. potassium chloride ER (K-DUR, KLOR-CON) 20 mEq tablet Take 1 tablet by mouth twice daily. hydroCHLOROthiazide (HYDRODIURIL, ESIDRIX) 12.5 mg capsule Take 1 capsule by mouth once daily. Vitamin E 1 mg, Vitamin A 1 mg, Collagen Support Vaginal Cream (CPD) Apply 1 g to affected area three times a week. pyridoxine, vitamin B6, (VITAMIN B6) 100 mg tablet Take 100 mg by mouth once daily. Magnesium 200 mg tab Take 1 tablet by mouth once daily. Garlic 100 mg tab Take 1 tablet by mouth once daily. Zinc 50 mg tab Take by mouth. Calcium magnesium esomeprazole (NEXIUM) 20 mg capsule Take 1 capsule by mouth DAILY (6 AM). BIOTIN ORAL Take by mouth. diphenhydrAMINE HCl 12.5 mg chewable tablet Take 12.5 mg by mouth at bedtime as needed. Cholecalciferol, Vitamin D3, 25 mcg (1,000 unit) cap Take 1,000 Units by mouth once daily. HISTORIES PAST MEDICAL HISTORY Diagnosis Date Arrhythmia Benign neoplasm of colon Calculus of kidney Chest pain, unspecified non cardiac Esophageal reflux Esophagitis, unspecified Granulomatous disease (HCC) History of recurrent UTIs HYPERLIPIDEMIA NEC/NOS 03/16/2009 HYPERTENSION NOS 03/10/2008 Mental disorder FRIEDA on CPAP Osteopenia BMD 12/12/2011 Sciatica FAMILY HISTORY Problem Relation Age of Onset Hypertension Mother other (macular degeneration) Mother Coronary Artery Disease Father Stroke Father other (CABG) Father Coronary Artery Disease Sister Coronary Artery Disease Brother Ischemic Heart Disease Paternal Grandfather other (Peripheral Vascular Disease) Sister Hypertension Sister Hypertension Sister Hypertension Brother Hypertension Son SOCIAL HISTORY Social History Tobacco Use Smoking status: Former Packs/day: 1.50 Years: 20.00 Pack years: 30.00 Types: Cigarettes Quit date: 11/09/1980 Years since quittin.8 Smokeless tobacco: Never Tobacco comments: up to 3 PPD Vaping Use Vaping Use: Never used Substance Use Topics Alcohol use: No Drug use: No PHYSICAL EXAMINATION Ht 149.9 cm (4' 11) Wt 82.6 kg (182 lb) BMI 36.76 kg/m General appearance: Well appearing, alert, in no acute distress, and well-hydrated, well nourished Skin: Skin color, texture, turgor normal, no suspicious rashes or lesions Respiratory:+ effort Cardiovascular: Not examined GI: Normal abdominal exam, Abdomen soft, non-tender. No masses, organomegaly Musculoskeletal: normal ROM Neuro: No gross neurologic defecits Genitourinary: not examned ASSESSMENT: (R39.14) Feeling of incomplete bladder emptying PLAN: Reassurance Fu prn Ivan Alvarez Jr, MD documented in this encounter [facility] 09-23-2022 Nurse Note Bladder scan obtained 0 ml of urine documented in this encounter [facility] 09-17-2022 History of Present illness Narrative Episode Visit Count: 5 Therapist That Will Accept/Oversee The Plan Of Care: Samreen Powell Start of Care Date: 08/27/22 Onset Date: 08/13/22 Plan of Care Certification Date: 08/27/22 Next Certification Due Date: 10/08/22 REHABILITATION AND SPORTS THERAPY PHYSICAL THERAPY TREATMENT NOTE ASSESSMENT: Terri Burciaga tolerated the session with decreased symptoms. She reports no LBP or hip pain following manual traction. The patient will continue to benefit from ongoing skilled physical therapy to progress toward set goals. PLAN FOR NEXT VISIT: Continue manual traction in combination with core stabilization strengthening as tolerated SUBJECTIVE: Patient Reason for Visit: Visit started 5 min early due to pt. early arrival. Pt. reports manual traction is working well, she had relief until this afternoon since last Thursday. She requests to cancel next thursday appointment. She would like to space out her appointment greater duration apart. Pain: Pain Pain Level: 6 Pain Location: Low Back/Lumbar Spine - Right Description: Aching Frequency: Sitting;Walking Pain Level 2: 9 Pain Location 2: Hip - Right Description 2: Aching;Sharp Frequency 2: Continuous Post Treatment Pain Post Treatment Pain Level: 0 Post Treatment Symptoms: Pt. denies LBP and hip pain. OBJECTIVE MEASURES WITH LEVEL OF FUNCTION: TREATMENT: Therapeutic Exercise: 1: hook lying TA activation 3x10 2: hook lying TA activation with physioball press 65 cm 3x10 3: hook lying pelvic rotations 2x20 4: hook lying TA activation with alt marching 3x10 Skilled Intervention: Patient was educated in proper exercise technique and purpose for exercises. Reviewed and educated patient on additions/changes for home exercise program as above (*). Skilled judgment was provided in selection of appropriate interventions. Correct performance of therapeutic exercises was facilitated with verbal, visual, and tactile cuing. Educated patient on rationale for performing exercises in regards to decreasing fatigue and increase ease of ADL. Patient education as noted. Manual Therapy: 1: Manual lumbar traction with BLE elevated in stool with knees and hips at 90 degrees x 10 minutes (Pain decreased to 8/10) Skilled Intervention: Manual skills to improve joint mobility, ROM, and decrease pain. Utilized anatomy knowledge of the therapist, and assessment of patient's response to intervention. Billing Therapeutic Exercise Treatment Minutes: 30 Manual TherapyTreatment Minutes: 10 Total Treatment Time Minutes (timed/untimed): 40 Samreen Powell PT documented in this encounter [facility] 09-15-2022 Instructions M Marco Faustin PA-C - 09/15/2022 2:53 PM EST Try not to scratch the rash as it may introduce infection. Scratching also releases histamine in the tissue which will make it itch more. Try to keep cool. Be over heated or sweaty may aggravate rash. Wear white cotton underclothing to allow air and avoid possible effects of fabric dyes. Avoid prolonged hot baths or showers: use tepid water if possible. Use a mild, unscented soap if any is needed. Stop all prior lotions, creams, or any other topical skin care products until the rash clears. prednisone as directed by prescription. If you are prescribed an antihistamine, these agents may cause mild side effects with dry mouth and occasionally difficulty with constipation, urination, or lightheadedness. They are generally safe in . If you are prescribed a cortisone cream, use only the smallest amount necessary to provide a thin layer over the affected skin. while topical cortisone is generally very safe, prolonged or repetitive use may cause permanent changes in skin and osteoporosis in underlying bones. They should be used for short periods of no more than 2-3 weeks, and then at least a week break. Prolonged use in infants or small children may actually affect adrenal dysfunction and cause growth problems. Safety in depends on the strength and duration of treatment. If the rash is not improving in 4-5 days, worsening, fever or other concerning symptoms arise, call back. Call sooner if it is getting worse. documented in this encounter [facility] 09-15-2022 History of Present illness Narrative 76 year old female with c/o here for rash which started after itching a few days. Rash first noticed yesterday morning. Itchy, burning. No oral lesions. No change in breathing or SOB. Wore a new shirt unwashed. Also at [employer] touching a lot textiles. Also around daughter's dog. HISTORIES FAMILY HISTORY Problem Relation Age of Onset Hypertension Mother other (macular degeneration) Mother Coronary Artery Disease Father Stroke Father other (CABG) Father Coronary Artery Disease Sister Coronary Artery Disease Brother Ischemic Heart Disease Paternal Grandfather other (Peripheral Vascular Disease) Sister Hypertension Sister Hypertension Sister Hypertension Brother Hypertension Son PAST MEDICAL HISTORY Diagnosis Date Arrhythmia Benign neoplasm of colon Calculus of kidney Chest pain, unspecified non cardiac Esophageal reflux Esophagitis, unspecified Granulomatous disease (HCC) History of recurrent UTIs HYPERLIPIDEMIA NEC/NOS 03/16/2009 HYPERTENSION NOS 03/10/2008 Mental disorder FRIEDA on CPAP Osteopenia BMD 12/12/2011 Sciatica PAST SURGICAL HISTORY Procedure Laterality Date ABDOMINAL SURGERY HX APPENDECTOMY HX COLONOSCOPY COLONOSCOPY FLX DX W/COLLJ SPEC WHEN PFRMD 01/11/2016 Colonoscopy COLSC FLX W/RMVL OF TUMOR POLYP LESION SNARE TQ 02/05/2012 repeat 5 years EGD 02/05/2012 ESOPHAGOGASTRODUODENOSCOPY TRANSORAL DIAGNOSTIC 10/16/2008 EGD ESOPHAGOGASTRODUODENOSCOPY TRANSORAL DIAGNOSTIC 01/11/2016 EGD LYSIS OF ADHESIONS SALPINX/OVARY x6 OOPHORECTOMY, PART/TOTAL UNILAT/BILAT bilateral salpingectomy and left oophorectomy REM LESION TRUNK,ARM,LEG > 4.0CM 07/11/2022 REMV LUNG,WEDGE RESECTION Left 07/30/2021 VATS wedge resection of left lower lobe wedge SKIN EXCISION 07/11/2022 anterior chest wall & left torso TOTAL ABDOMINAL HYSTERECT W/WO RMVL TUBE OVARY 11/09/1969 endometriosis, change in ovary, right oophorectomy VAGINAL HYSTERECTOMY Social History Tobacco Use Smoking status: Former Packs/day: 1.50 Years: 20.00 Pack years: 30.00 Types: Cigarettes Quit date: 11/09/1980 Years since quittin.8 Smokeless tobacco: Never Tobacco comments: up to 3 PPD Vaping Use Vaping Use: Never used Substance Use Topics Alcohol use: No Drug use: No ACTIVE PROBLEM LIST Lipoma of Unspecified Site Peripheral Vertigo, Unspecified Essential Hypertension With Goal Blood Pressure Less Than 140/90 Esophageal Reflux Mixed Hyperlipidemia Depression Nocturnal Muscle Cramps Obesity Osteopenia History of Colon Polyps Dry Eye Syndrome Nuclear Sclerosis of Both Eyes Blepharitis of Both Upper and Lower Eyelid of Right Eye Prediabetes 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 Vitreous Floaters of Both Eyes Stage 3b Chronic Kidney Disease (Hcc) Meibomian Gland Dysfunction (Mgd) of Upper and Lower Lids of Both Eyes Punctate Keratitis, Bilateral Frieda (Obstructive Sleep Apnea) Nodule of Left Lung Gallstones Delayed Sleep Phase Syndrome Pneumothorax of Left Lung After Biopsy Obesity, Class II, Bmi 35-39.9 Atrial Tachycardia (Hcc) Mitral Valve Disease Lung Nodule Acute Post-Operative Pain Anxiety Thyroid Nodule Granulomatous Disease (Hcc) Feeling of Incomplete Bladder Emptying H/O Senile Atrophic Vaginitis Sciatica, Right Side Current Outpatient Medications Medication Sig Dispense Refill traMADol (ULTRAM) 100 mg tablet Take 1 tablet by mouth every 6 hours as needed for pain for up to 60 days. 120 tablet 1 [id number] 1 mg-25 mg-12.5 mg-1 mg tab Take by mouth. cyclobenzaprine (FLEXERIL) 5 mg tablet Take 1 tablet by mouth three times daily as needed. 30 tablet 1 cloNIDine HCl (CATAPRES) 0.1 mg tablet Take 1 tablet by mouth daily at bedtime. 90 tablet 3 losartan (COZAAR) 100 mg tablet Take 1 tablet by mouth once daily. 90 tablet 3 potassium chloride ER (K-DUR, KLOR-CON) 20 mEq tablet Take 1 tablet by mouth twice daily. 180 tablet 3 hydroCHLOROthiazide (HYDRODIURIL, ESIDRIX) 12.5 mg capsule Take 1 capsule by mouth once daily. 90 capsule 3 Vitamin E 1 mg, Vitamin A 1 mg, Collagen Support Vaginal Cream (CPD) Apply 1 g to affected area three times a week. 20 g 3 pyridoxine, vitamin B6, (VITAMIN B6) 100 mg tablet Take 100 mg by mouth once daily. Magnesium 200 mg tab Take 1 tablet by mouth once daily. Garlic 100 mg tab Take 1 tablet by mouth once daily. Zinc 50 mg tab Take by mouth. Calcium magnesium esomeprazole (NEXIUM) 20 mg capsule Take 1 capsule by mouth DAILY (6 AM). BIOTIN ORAL Take by mouth. diphenhydrAMINE HCl 12.5 mg chewable tablet Take 12.5 mg by mouth at bedtime as needed. Cholecalciferol, Vitamin D3, 25 mcg (1,000 unit) cap Take 1,000 Units by mouth once daily. No current facility-administered medications for this visit. COVID-19 VACCINE(1) Never done BP CONTROLLED (<130/80) Never done INFLUENZA(1) due on 07/10/2022 EXAM: BP 138/70 Pulse 98 Resp 16 Wt 83 kg (183 lb) SpO2 97% BMI 38.25 kg/m Pleasant overweight adult woman in no acute distress. Alert and oriented all spheres. Normal affect and cognition. Speech normal. No deficits to learning or comprehension. Skin warm, dry, pink to lips and nailbeds. Normal turgor. Chest, back, abdomen with morbilliform pruritic 1-2cm excoriated lesions. Non on face, hands, lower extremities. No lesions mouth or tongue. No SOB Respirations regular and unlabored. Extrem: no clubbing or cyanosis. Edema: none. Extremities are warm and pink with prompt capillary refill. ASSESSMENT/PLAN: 1. Rash - ICD9: 782.1, ICD10: R21 Suspect allergic response Recheck following prednisone See d/c reviewed with patient - PREDNISONE 10 MG TABLET Luc Faustin PA-C documented in this encounter [facility] 09-12-2022 History of Present illness Narrative Episode Visit Count: 3 Therapist That Will Accept/Oversee The Plan Of Care: Samreen Powell Start of Care Date: 08/27/22 Onset Date: 08/13/22 Plan of Care Certification Date: 08/27/22 Next Certification Due Date: 10/08/22 Patient Identified by Name and Date of : Yes REHABILITATION AND SPORTS THERAPY PHYSICAL THERAPY TREATMENT NOTE ASSESSMENT: Terri Burciaga tolerated the session with decreased symptoms. She demonstrated improvements in endurance with exercises. The patient will continue to benefit from ongoing skilled physical therapy to progress toward set goals. PLAN FOR NEXT VISIT: Possibly try STM to R hip and stretching of R hip while pt in L sidelying SUBJECTIVE: Patient Reason for Visit: Pt forgot her cane today. Pt reports falling yesterday, thought she was on the ground and went ot start walking and she was still on the last step.Pt fell on R side and her hip is really bothering her now and thinks he hit her upper back and it hurts around her ribs. Pt had decreased LBP for approximately 2 hours after manual lumbar traction. Pain: Pain Pain Level: 8 Pain Location: Low Back/Lumbar Spine - Right Description: Aching Frequency: Sitting;Walking;Standing Additional Pain Information : Location 2 Pain Level 2: 10 Pain Location 2: Hip - Right Description 2: Aching;Sharp Frequency 2: Continuous Post Treatment Pain Post Treatment Pain Level: Better OBJECTIVE MEASURES WITH LEVEL OF FUNCTION: Good technique with TA activation. TREATMENT: Therapeutic Exercise: 1: Seated stepper x 3 minutes (subjective taken) 2: hooklying TA activation 3 sets of 10 3: Hooklying TA activation with alt arms 3x5 B 4: Hooklying hip adduction with towel 2x10 5: Supine piriformis stretch 2x30 seconds Skilled Intervention: Patient was educated in proper exercise technique and purpose for exercises. Skilled judgment was provided in selection of appropriate interventions. Correct performance of therapeutic exercises was facilitated with verbal and visual cuing. Manual Therapy: 1: Manual lumbar traction with BLE elevated in stool with knees and hips at 90 degrees x 15 minutes (Pain decreased to 8/10) Skilled Intervention: Manual skills to improve joint mobility, ROM, and decrease pain. Utilized anatomy knowledge of the therapist, and assessment of patient's response to intervention. Billing Therapeutic Exercise Treatment Minutes: 32 Manual TherapyTreatment Minutes: 12 Total Treatment Time Minutes (timed/untimed): 44 EVGENY Wilks PT documented in this encounter [facility] 09-09-2022 History of Present illness Narrative Episode Visit Count: 2 Therapist That Will Accept/Oversee The Plan Of Care: Samreen Powell Start of Care Date: 08/27/22 Onset Date: 08/13/22 Plan of Care Certification Date: 08/27/22 Next Certification Due Date: 10/08/22 Patient Identified by Name and Date of : Yes REHABILITATION AND SPORTS THERAPY PHYSICAL THERAPY TREATMENT NOTE ASSESSMENT: Terri Burciaga tolerated the session with decreased endurance. She demonstrated difficulty with TA activation with BLE alt [place]. The patient will continue to benefit from ongoing skilled physical therapy to progress toward set goals. PLAN FOR NEXT VISIT: Asses response to manual lumbar traction SUBJECTIVE: Patient Reason for Visit: Pt reports finding out yesterday that she has 2 ruptured discs L5-S1. Pt reports some numbness and tingling down RLE. Pt reports having pain all the way down the back of her R leg. Pt presents with cne and reports purchasing a sock-aide. Pain: Pain Pain Level: 8 Pain Location: Low Back/Lumbar Spine - Right Description: Aching Frequency: Sitting;Walking;Standing Additional Pain Information : Location 2 Pain Level 2: 10 Pain Location 2: Hip - Right;Leg - Right;Foot - Right (lateral 4th and 5th toes) Description 2: Aching;Sharp Frequency 2: Continuous Post Treatment Pain Post Treatment Pain Level: No Change OBJECTIVE MEASURES WITH LEVEL OF FUNCTION: Good technique noted with TA activation in hooklying. TREATMENT: Therapeutic Exercise: 1: hooklying TA activation 3 sets of 10 2-3 times a day, 1 sec hold 2: Hooklying TA activation with alt arms 3x5 B 3: Hooklying TA activation with LE january x 5 B (d/c due to increase in RLE pain) Skilled Intervention: Patient was educated in proper exercise technique and purpose for exercises. Skilled judgment was provided in selection of appropriate interventions. Correct performance of therapeutic exercises was facilitated with verbal and visual cuing. Manual Therapy: 1: Manual lumbar traction with BLE elevated in stool with knees and hips at 90 degrees x 15 minutes (Pain decreased to 8/10) Skilled Intervention: Manual skills to improve joint mobility, ROM, and decrease pain. Utilized anatomy knowledge of the therapist, and assessment of patient's response to intervention. Self-Correction Management: 1: *discussed and encourage pt to contact PCP about pelvic pain and possibly getting an order for pelvic floor PT 2: * discussed neutral spine strengthening and the purpose 3: *discussed trying to avoid lumbar felxion to decrease pain Skilled Intervention: Skilled judgment in the selection of proper modification for activity of daily living/home management based on clinical presentation, deficits, and needs. Billing Therapeutic Exercise Treatment Minutes: 15 Manual TherapyTreatment Minutes: 15 Self-Care/Home Management Treatment Minutes: 15 Total Treatment Time Minutes (timed/untimed): 45 [place], EVGENY Powell PT documented in this encounter [facility] 09-08-2022 Miscellaneous Notes TC to pt, notified of results/provider response. Pt states as long as she has Tramadol on board she will be ok until pain mgmt appt in October. This nurse checked upcoming appt in October and it is with Daisha Junior/Spine. Is this the correct appt for pt? Jordy Álvarez LPN Luc Faustin PA-C 6:50 PM Note Please advise she has L5-S12 disc herniation contacting S1 nerve roots. I would recommend pain management over surgery. She has appointment if she can get by in the interim. We could ask if possible to expedite appointment due to pain level please. Thanks, PACO Chavez-C Please advise there were increased mild levels or WBCs and RBCs as well as 2+ protein without evidence of bacteria noted. This is generally termed sterile pyuria. I would recommend repeating urine micro and culture to be safe. Order placed. Please advise there were increased mild levels or WBCs and RBCs as well as 2+ protein without evidence of bacteria noted. This is generally termed sterile pyuria. I would recommend repeating urine micro and culture to be safe. Order placed. Luc Bro PA-C documented in this encounter [facility] 09-07-2022 Miscellaneous Notes Please advise she has L5-S12 disc herniation contacting S1 nerve roots. I would recommend pain management over surgery. She has appointment if she can get by in the interim. We could ask if possible to expedite appointment due to pain level please. Isreal Bro PA-C [facility] [facility] 09-05-2022 History of Present illness Narrative Radiology Service Progress Note PATIENT NAME: Terri Burciaga DATE OF SERVICE: September 05, 2022 TIME: 8:22 AM PATIENT IDENTITY VERIFICATION COMPLETED USING TWO (2) IDENTIFIERS: Name and Date of confirmed by patient verbally. FALL SCREENING: Has the patient had 2 falls in the last year or 1 fall with injury or currently using an Ambulatory Assistive Device (Walker, Cane, Wheelchair, Crutches, etc.)? No PATIENT GENDER DATA: Female. status: : No status: NO. PATIENT RELEVANT IMPLANT DATA REVIEWED: Yes RADIOLOGY DEPARTMENT: MR; Exam(s) Completed: Spine: Lumbar spine PERIPHERAL IV DATA: Not applicable SIGNED BY: RT Rogerio(Veda) September 05, 2022 8:22 AM documented in this encounter [facility] 09-02-2022 History of Present illness Narrative 76 year old female with hx > former 30 pk year smoker, FRIEDA, lung nodule. 1.2 cm increasing LLL nodule , low level activity on PET scan, CT biopsy non-diagnostic and procedure resulted in PTX., VATS wedge resection showed necrotizing granulomatous inflammation and negative fungal stains c/o concerns over weight loss. Patient actually identifies weight loss related to pain with her back and leg Pain 15 Tramadol works if takes on schedule but runs out too quickly. New Rx was sent in but patient has 2 months before she gets into see pain management. Unable to work due to discomfort, unable to sleep, identifies pain is very disabling about all she can think of. Makes her nauseated which is why her appetite is dropped. 08/27/2022 had first therapy session, agrees this is centralized pain. Goals reviewed. Right foot falling asleep 4th, 5th toes. Notes a sensation of incomplete bladder emptying, having pressure and burning, urine very dark. States drinking as much as possible., HISTORIES FAMILY HISTORY Problem Relation Age of Onset Hypertension Mother other (macular degeneration) Mother Coronary Artery Disease Father Stroke Father other (CABG) Father Coronary Artery Disease Sister Coronary Artery Disease Brother Ischemic Heart Disease Paternal Grandfather other (Peripheral Vascular Disease) Sister Hypertension Sister Hypertension Sister Hypertension Brother Hypertension Son PAST MEDICAL HISTORY Diagnosis Date Arrhythmia Benign neoplasm of colon Calculus of kidney Chest pain, unspecified non cardiac Esophageal reflux Esophagitis, unspecified Granulomatous disease (HCC) History of recurrent UTIs HYPERLIPIDEMIA NEC/NOS 03/16/2009 HYPERTENSION NOS 03/10/2008 Mental disorder FRIEDA on CPAP Osteopenia BMD 12/12/2011 Sciatica PAST SURGICAL HISTORY Procedure Laterality Date ABDOMINAL SURGERY HX APPENDECTOMY HX COLONOSCOPY COLONOSCOPY FLX DX W/COLLJ SPEC WHEN PFRMD 01/11/2016 Colonoscopy COLSC FLX W/RMVL OF TUMOR POLYP LESION SNARE TQ 02/05/2012 repeat 5 years EGD 02/05/2012 ESOPHAGOGASTRODUODENOSCOPY TRANSORAL DIAGNOSTIC 10/16/2008 EGD ESOPHAGOGASTRODUODENOSCOPY TRANSORAL DIAGNOSTIC 01/11/2016 EGD LYSIS OF ADHESIONS SALPINX/OVARY x6 OOPHORECTOMY, PART/TOTAL UNILAT/BILAT bilateral salpingectomy and left oophorectomy REM LESION TRUNK,ARM,LEG > 4.0CM 07/11/2022 REMV LUNG,WEDGE RESECTION Left 07/30/2021 VATS wedge resection of left lower lobe wedge SKIN EXCISION 07/11/2022 anterior chest wall & left torso TOTAL ABDOMINAL HYSTERECT W/WO RMVL TUBE OVARY 11/09/1969 endometriosis, change in ovary, right oophorectomy VAGINAL HYSTERECTOMY Social History Tobacco Use Smoking status: Former Packs/day: 1.50 Years: 20.00 Pack years: 30.00 Types: Cigarettes Quit date: 11/09/1980 Years since quittin.8 Smokeless tobacco: Never Tobacco comments: up to 3 PPD Vaping Use Vaping Use: Never used Substance Use Topics Alcohol use: No Drug use: No ACTIVE PROBLEM LIST Lipoma of Unspecified Site Peripheral Vertigo, Unspecified Essential Hypertension With Goal Blood Pressure Less Than 140/90 Esophageal Reflux Mixed Hyperlipidemia Depression Nocturnal Muscle Cramps Obesity Osteopenia History of Colon Polyps Dry Eye Syndrome Nuclear Sclerosis of Both Eyes Blepharitis of Both Upper and Lower Eyelid of Right Eye Prediabetes 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 Vitreous Floaters of Both Eyes Stage 3b Chronic Kidney Disease (Hcc) Meibomian Gland Dysfunction (Mgd) of Upper and Lower Lids of Both Eyes Punctate Keratitis, Bilateral Frieda (Obstructive Sleep Apnea) Nodule of Left Lung Gallstones Delayed Sleep Phase Syndrome Pneumothorax of Left Lung After Biopsy Obesity, Class II, Bmi 35-39.9 Atrial Tachycardia (Hcc) Mitral Valve Disease Lung Nodule Acute Post-Operative Pain Anxiety Thyroid Nodule Granulomatous Disease (Hcc) Feeling of Incomplete Bladder Emptying H/O Senile Atrophic Vaginitis Sciatica, Right Side Current Outpatient Medications Medication Sig Dispense Refill [id number] 1 mg-25 mg-12.5 mg-1 mg tab Take by mouth. cyclobenzaprine (FLEXERIL) 5 mg tablet Take 1 tablet by mouth three times daily as needed. 30 tablet 1 cloNIDine HCl (CATAPRES) 0.1 mg tablet Take 1 tablet by mouth daily at bedtime. 90 tablet 3 losartan (COZAAR) 100 mg tablet Take 1 tablet by mouth once daily. 90 tablet 3 potassium chloride ER (K-DUR, KLOR-CON) 20 mEq tablet Take 1 tablet by mouth twice daily. 180 tablet 3 hydroCHLOROthiazide (HYDRODIURIL, ESIDRIX) 12.5 mg capsule Take 1 capsule by mouth once daily. 90 capsule 3 Vitamin E 1 mg, Vitamin A 1 mg, Collagen Support Vaginal Cream (CPD) Apply 1 g to affected area three times a week. 20 g 3 pyridoxine, vitamin B6, (VITAMIN B6) 100 mg tablet Take 100 mg by mouth once daily. Magnesium 200 mg tab Take 1 tablet by mouth once daily. Garlic 100 mg tab Take 1 tablet by mouth once daily. Zinc 50 mg tab Take by mouth. Calcium magnesium esomeprazole (NEXIUM) 20 mg capsule Take 1 capsule by mouth DAILY (6 AM). BIOTIN ORAL Take by mouth. diphenhydrAMINE HCl 12.5 mg chewable tablet Take 12.5 mg by mouth at bedtime as needed. Cholecalciferol, Vitamin D3, 25 mcg (1,000 unit) cap Take 1,000 Units by mouth once daily. No current facility-administered medications for this visit. COVID-19 VACCINE(1) Never done INFLUENZA(1) due on 07/10/2022 EXAM: BP (P) 142/72 Pulse (P) 102 Resp (P) 20 Wt 84.7 kg (186 lb 12.8 oz) SpO2 (P) 98% BMI 39.04 kg/m Pleasant obese adult woman in moderate acute distress. Alert and oriented all spheres. Normal affect and cognition. Speech normal. No deficits to learning or comprehension. Skin warm, dry, pink to lips and nailbeds. Normal turgor. Respirations regular and unlabored. Chest is normal shape. Lungs are clear to all alcantar with good air exchange through out. HRRR without murmur or gallop. No lifts, heaves, or rubs. Standing posture shows slight drop of right shoulder compared to the left, also slight asymmetry with left hip higher than right. She has a very mild scoliosis lower thoracic. Positive tender trigger points in the right paralumbar muscles after which myofascial release had no significant improvement. No flank pain on percussion. Abdomen is soft, nontender, no masses or organomegaly. Extrem: no clubbing or cyanosis. Edema: None. Extremities are warm and pink with prompt capillary refill. Patient has 3-4 out of plus weakness in the left foot against dorsiflexion, otherwise lower extremity strength is about the same. DTRs are 0-1+ knee jerk, 0-1+ Achilles bilaterally. Patient does have intact sensation to monofilament but diminished sensation to sharp and dull in the lateral calf into the right toe on the right leg and sparse areas over the lateral left foot. Component Latest Ref Rng & Units 09/02/2022 GLUCOSE UA (POCT) Negative mg/dL Negative BILIRUBIN UA (POCT) Negative Moderate (A) KETONE UA (POCT) Negative mg/dL 15 (A) SPECIFIC GRAVITY UA (POCT) 1.005 - 1.030 >=1.030 HEMOGLOBIN/BLOOD UA (POCT) Negative Large (A) PH UA (POCT) 4.5 - 8.0 6.0 PROTEIN UA (POCT) Negative mg/dL 100 (A) UROBILINOGEN UA (POCT) Normal E.U./dL 0.2 NITRITE UA (POCT) Negative Negative LEUKOCYTES UA (POCT) Negative Negative COLOR UA (POCT) Yellow CLARITY UA (POCT) Clear ASSESSMENT/PLAN: 1. Right lumbar radiculitis - ICD9: 724.4, ICD10: M54.16 (primary diagnosis) Symptoms consistent with herniated disc - Bedrest for 2-3 days - Ice for localized tenderness - Warm moist heat for 20 min three times a day - PT consult - MRI- see orders - MRI LUMBAR SPINE WO IVCON - TRAMADOL 100 MG TABLET 2. Lumbar stenosis with neurogenic claudication - ICD9: 724.03, ICD10: M48.062 Educated again in use of tramadol, only for severe pain, only of [id number] medications are insufficient. Patient can take both Tylenol and ibuprofen if needed in addition. Patient's most recent creatinine 05/08/2022 with estimated GFR of 60. - MRI LUMBAR SPINE WO IVCON - TRAMADOL 100 MG TABLET - HEPATIC FUNCTION PNL 3. Urinary pain - ICD9: 788.1, ICD10: R30.9 Acute, suspect related to dehydration. Patient is instructed to push fluids to 2000 cc a day with noncaffeinated, nonalcoholic beverages. - Send urine for culture and microscopic evaluation - Patient education for prevention given - URINALYSIS, DIPSTICK ONLY - URINALYSIS, WITH MICROSCOPIC Will notify results on return. Luc Faustin PA-C documented in this encounter [facility] 09-01-2022 Miscellaneous Notes Last office visit: 08/11/22 F/u scheduled: 09/02/22 with Isreal Faustin Last refilled on: Tramadol #28 with 0 refill on 08/22/22 Patricia Motley Ma Patient has been identified by name and date of : Yes Requested Prescriptions Pending Prescriptions Disp Refills traMADol (ULTRAM) 100 mg tablet 28 tablet 0 Sig: Take 1 tablet by mouth every 6 hours as needed for pain for up to 7 days. Patient has only 2 pills left and is in a lot of pain. RX INSTRUCTIONS: Patient aware RX will be sent to pharmacy. No need to notify patient. Catherine Meneses documented in this encounter [facility] 08-29-2022 Miscellaneous Notes Spoke with patient regarding chest x-ray results. No major abnormality noted. Nothing on chest x-ray to explain her chest pain. documented in this encounter [facility] 08-28-2022 History of Present illness Narrative Radiology Service Progress Note PATIENT NAME: Terri Burciaga DATE OF SERVICE: August 28, 2022 TIME: 3:39 PM PATIENT IDENTITY VERIFICATION COMPLETED USING TWO (2) IDENTIFIERS: Name and Date of confirmed by patient verbally. FALL SCREENING: Has the patient had 2 falls in the last year or 1 fall with injury or currently using an Ambulatory Assistive Device (Walker, Cane, Wheelchair, Crutches, etc.)? No PATIENT GENDER DATA: Female. status: : No status: NO. PATIENT RELEVANT IMPLANT DATA REVIEWED: Yes RADIOLOGY DEPARTMENT: General X-ray: Exam(s) Completed: Chest X-Ray PERIPHERAL IV DATA: Not applicable SIGNED BY: RT Dori(R) August 28, 2022 3:39 PM documented in this encounter [facility] 08-27-2022 History of Present illness Narrative Episode Visit Count: 1 Therapist That Will Accept/Oversee The Plan Of Care: Samreen Powell Start of Care Date: 08/27/22 Onset Date: 08/13/22 Plan of Care Certification Date: 08/27/22 Next Certification Due Date: 10/08/22 Patient Identified by Name and Date of : Yes REHABILITATION AND SPORTS THERAPY PHYSICAL THERAPY EVALUATION PLAN OF CARE: Assessment: Terri Burciaga presents with diagnosis of right side sciatica that interferes with rising from a chair;walking;standing;walking in the house;walking in the community;stair negotiation;driving;bed mobility;bowel function;bladder function;sleeping;bending . She presents with impairments in ADL's, flexibility, gait, independence in exercise, joint mobility, overall function, patient reported outcome measures, posture, range of motion, strength , symptom management, and tissue tenderness. Prognosis for therapy is Fair due to: coping skills;chronic nature of impairments;clinical presentation;limited tolerance to activity;Prognosis may be improved by within-session changes. She will benefit from skilled therapy services to meet the goals established for this plan of care as noted below. Classification Low Back Pain Subgroup Classification: Graded activity subgroup: recommended visits 12. Graded Activity Subgroup Classification based on: disproportionate pain;diffuse non anatomic pain;maladaptive psychosocial factors;exam findings suggestive of central sensitization Goals for Episode of Care: created on 08/27/22 through 10/08/22 Independent in home exercises. Patient will decrease pain to <8/10 at rest and with functional activities to allow patient to improve ambulation, transfers, and standing tolerance for ADLs. Restore pain-free lumbar ROM to moderate to minimal limitation grossly to allow for ADLs. Stand / Walk 45 min to 1 hour without increased pain/symptoms. Sleep through night without pain/symptoms. Maintain proper sitting posture throughout session Patient will be able to tolerate sleeping without interruption for 4-5 consecutive hours , driving for 1 hour , and work activities for 2-3 hours without increased symptoms. Knowledgeable regarding prophylaxis. Patient Goals: reduce low back pain with work and ADLs Planned Interventions, Frequency, and Duration: Current Frequency: 2x/week Duration: 6 weeks Total Number of Visits Planned: 12 Planned Treatment Interventions: Therapeutic exercise (73889);Neuromuscular re-education (70441);Manual therapy (29935);Therapeutic activities (53167);Self-intermediate management (71195);Gait Training (47449);Patient/Family/Caregiver Education PLAN FOR NEXT VISIT: Request pelvic floor PT order. Consider manual traction to centralize low back radiating symptoms in the RLE. Patient demonstrates good understanding of plan of care and treatment. The above goals and plan of care were discussed and agreed upon by patient/family. SUBJECTIVE: Terri Burciaga is a 76 year old female seen today for for chronic low back pain that became significantly worse 2 weeks without specific injury or change in activity. Pt. has tried ice, heat, and pain medication, and knee to chest stretching. Pt. has increased symptoms with bending, sitting, standing, and ambulation. She is unable to don her socks and has much difficulty with lower body dressing. The pain is located at the R low back, and radiates along the L lateral hip, lateral lower leg and to the 4th and 5th toes. 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 Pt. also reports feeling pain in the vaginal and rectal areas with transfers as well as bearing down. Denies numbness, tingling, and denies loss of bowel or bladder control. Patient Goals: reduce low back pain with work and ADLs Functional Limitations: rising from a chair;walking;standing;walking in the house;walking in the community;stair negotiation;driving;bed mobility;bowel function;bladder function;sleeping;bending Prior Level of Function: Independent without limitations Relevant History Preferred Language: Bangladeshi Home Environment Equipment Owned: [employer] Transportation: Drives independently using foot controls/hand controls Intake Information: Prescription present Previous Treatment: Heat ;Ice ;Pain meds Falls Interview: Fall without injury in the last year Red Flags Vertebral Fracture Red Flags: Female;Age >70 Vertebral Fracture Clinical Reasoning: Proceed with caution due to the above (1-2) risk factors Abdominal Aortic Aneurysm Red Flags: Age >60 Abdominal Aortic Aneurysm Clinical Reasoning: Proceed with caution Cancer Red Flags: Age >50 or <20 Cancer Clinical Reasoning: Proceed with caution Infection Clinical Reasoning: Proceed with caution Cauda Equina Syndrome Clinical Reasoning: No identified risk factors. Red Flags - Cervical Cancer Red Flags: Age >50 or <20 Cancer Clinical Reasoning: Proceed with caution Infection Clinical Reasoning: Proceed with caution Spine History Symptoms Location at Onset: Back;Foot;Calf Symptoms Since Onset: Worsening Pain is Worse Always: Sitting;Driving;Standing;Walking;Bendi ng;Rising Pain is Better Always: Lying Sleeping Position: Supine Sleep Affected by Pain: Pain keeps from falling asleep;Pain awakens Pain: Pain Pain Level: 10 Pain Location: Low Back/Lumbar Spine - Right Description: Aching Frequency: Sitting;Walking;Standing Additional Pain Information : Location 2 Pain Level 2: 10 Pain Location 2: Hip - Right;Leg - Right;Foot - Right (lateral 4th and 5th toes) Description 2: Aching Post Treatment Pain Post Treatment Pain Level: No Change Post Treatment Symptoms: tolerates hook lying TA activation best without increased or decrease in symptoms PROMIS Scales T-scores: mean of general population = 50. 5 points is clinically meaningfully difference Percentiles provide an indication of how the patient's score ranks in relation to the general population. Higher percentile rankings indicate better function/quality of life. 50th percentile is the average of the general population and indicates half of respondents had a worse score. T-scores: mean of general population = 50. 5 points is clinically meaningfully difference Percentiles provide an indication of how the patient's score ranks in relation to the general population. Higher percentile rankings indicate better function/quality of life. 50th percentile is the average of the general population and indicates half of respondents had a worse score. OBJECTIVE MEASURES WITH LEVEL OF FUNCTION: Posture / Alignment Posture: Lateral Shift;Slump (L) Lateral Shift: Left Sitting Posture: Left lateral shift;Sits on left ischial tuberosity Effects of Posture Correction: no change, able to assume correct posture Sensation - Lumbar Sensation: Grossly Intact Lumbar Spine AROM Lumbar Flexion: Major limitation Lumbar Extension: Major limitation Repeated Test Movements - Lumbar RFIS - Symptoms During: pain during movement (unable to tolerate repeated) RFIL - Symptoms During: pain during movement (unable to tolerate single KTC, repeated) Static Testing - Lumbar Sit Slouched: no effect Sit Erect: no effect LE Flexibility Flexibility: Straight Leg Raise R SLR Flexibility: limited due to pain L SLR Flexibility: limited due to tightness LE Strength R Hip Flexion (L2): 2-/5 L Hip Flexion (L2): 3+/5 Special Tests - Hip and Spine Hip and Spine Special Tests: SLR Test;Slump Test;Active SLR SLR Test: Right Positive;Left Negative Slump Test: Right Positive;Left Negative Active SLR: Right Positive;Left Positive Gait Gait: Independent Gait Device: None Gait Deviations: General Deviations General Deviations/Observations: Flexed trunk posture;Trunk Control Decreased;Wide base of support;Step length decreased;Lateral sway increased;Consuelo decreased Education: Education Learning Preferences: Demonstration;Explanation;Performance; Printed Materials Barriers: Emotions Learning/educational needs: Home exercise program;Plan of Care;Posture Education Provided: Yes, see treatment interventions for education provided Education Provided To: Patient Education Mode/Type: Demonstration;Explanation/Discussion;L iterature/Printed Materials;Performance TREATMENT: PT Treatment Interventions: Therapeutic Exercise;Self-Correction Management Evaluation Therapeutic Exercise: 1: *hook lying TA activation 3 sets of 10 2-3 times a day, 1 sec hold 2: attempted supine single KTC unable to tolerate RLE or LLE 3: attempted seated forward flexion, unable to tolerate Skilled Intervention: Patient was educated in proper exercise technique and purpose for exercises. Reviewed and educated patient on additions/changes for home exercise program as above (*). Skilled judgment was provided in selection of appropriate interventions. Correct performance of therapeutic exercises was facilitated with verbal, visual, and tactile cuing. Additional time necessary for providing pt. Education and determining a position that pt. Is able to tolerate due to 10/10 pain reported by patient. Educated patient on rationale for performing exercises in regards to decreasing fatigue , increase ease of ADL, and ROM and function . Patient education as noted. Self-Correction Management: 1: *discussed the role of lumbar stabilizers and mobilizing muscles 2: *discussed the purpose of core stabilization exercises in the hook lying position that is currently best tolerated 3: *discussed avoiding movements/postures that cause increased symptoms 4: *postural education during static standing/sitting as well as transfers 5: *discussed possible benefit of seeing a pelvic floor PT due to reports of symptoms in the vaginal and rectal areas in additiona to low back pain with transfers and bearing down. Skilled Intervention: Skilled judgment in the selection of proper modification for activity of daily living/home management based on clinical presentation, deficits, and needs. Reviewed patient specific diagnosis in relation to activities of daily living/home management. Activity progression based on professional judgement. Moderate verbal cues for maintaining neutral spine alignment. Correct performance of home program was facilitated with verbal, visual, and tactile cueing. 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 Admitted 07/30/21, underwent elective left VATS wedge resection Assessment: Ready for discharge to home Plan: -Discuss needs with patient and collaborate with case management -Will continue to evaluate during hospital admission -Skilled needs after discharge: none Nonallopathic lesion of rib cage, not elsewhere classified 02/24/2008 02/12/2017 Essential hypertension, benign 10/15/2006 0 03/10/2008 documented as of this encounter (statuses as of 11/26/2022) [facility] History of Past illness Narrative* Problem Noted Date Resolved Date Sciatica, right side 08/27/2022 10/28/2022 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 Admitted 07/30/21, underwent elective left VATS wedge resection Assessment: Ready for discharge to home Plan: -Discuss needs with patient and collaborate with case management -Will continue to evaluate during hospital admission -Skilled needs after discharge: none Nonallopathic lesion of rib cage, not elsewhere classified 02/24/2008 02/12/2017 Essential hypertension, benign 10/15/2006 0 03/10/2008 documented as of this encounter (statuses as of 11/28/2022) [facility] History of Past illness Narrative* Problem Noted Date Resolved Date Sciatica, right side 08/27/2022 10/28/2022 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 Admitted 07/30/21, underwent elective left VATS wedge resection Assessment: Ready for discharge to home Plan: -Discuss needs with patient and collaborate with case management -Will continue to evaluate during hospital admission -Skilled needs after discharge: none Nonallopathic lesion of rib cage, not elsewhere classified 02/24/2008 02/12/2017 Essential hypertension, benign 10/15/2006 0 03/10/2008 documented as of this encounter (statuses as of 01/07/2023) [facility]10-19-2022 History of Past illness Narrative* Problem Noted Date Resolved Date Sciatica, right side 08/27/2022 10/28/2022 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 Admitted 07/30/21, underwent elective left VATS wedge resection Assessment: Ready for discharge to home Plan: -Discuss needs with patient and collaborate with case management -Will continue to evaluate during hospital admission -Skilled needs after discharge: none Nonallopathic lesion of rib cage, not elsewhere classified 02/24/2008 02/12/2017 Essential hypertension, benign 10/15/2006 0 03/10/2008 documented as of this encounter (statuses as of 01/08/2023) [facility] History of Past illness Narrative* Problem Noted Date Resolved Date Sciatica, right side 08/27/2022 10/28/2022 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 Admitted 07/30/21, underwent elective left VATS wedge resection Assessment: Ready for discharge to home Plan: -Discuss needs with patient and collaborate with case management -Will continue to evaluate during hospital admission -Skilled needs after discharge: none Nonallopathic lesion of rib cage, not elsewhere classified 02/24/2008 02/12/2017 Essential hypertension, benign 10/15/2006 0 03/10/2008 documented as of this encounter (statuses as of 01/15/2023) [facility] History of Past illness Narrative* Problem Noted Date Resolved Date Sciatica, right side 08/27/2022 10/28/2022 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 Admitted 07/30/21, underwent elective left VATS wedge resection Assessment: Ready for discharge to home Plan: -Discuss needs with patient and collaborate with case management -Will continue to evaluate during hospital admission -Skilled needs after discharge: none Nonallopathic lesion of rib cage, not elsewhere classified 02/24/2008 02/12/2017 Essential hypertension, benign 10/15/2006 0 03/10/2008 documented as of this encounter (statuses as of 01/17/2023) [facility] History of Past illness Narrative* Problem Noted Date Diagnosed Date Resolved Date Sciatica, right side 08/27/2022 022 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 Admitted 07/30/21, underwent elective left VATS wedge resection Assessment: Ready for discharge to home Plan: -Discuss needs with patient and collaborate with case management -Will continue to evaluate during hospital admission -Skilled needs after discharge: none Nonallopathic lesion of rib cage, not elsewhere classified 02/24/2008 02/12/2017 Essential hypertension, benign 10/15/2006 03/10/2008 documented as of this encounter (statuses as of 06/09/2023) [facility] History of Past illness Narrative* Problem Noted Date Diagnosed Date Resolved Date Sciatica, right side 08/27/2022 022 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 Admitted 07/30/21, underwent elective left VATS wedge resection Assessment: Ready for discharge to home Plan: -Discuss needs with patient and collaborate with case management -Will continue to evaluate during hospital admission -Skilled needs after discharge: none Nonallopathic lesion of rib cage, not elsewhere classified 02/24/2008 02/12/2017 Essential hypertension, benign 10/15/2006 03/10/2008 documented as of this encounter (statuses as of 06/17/2023) [facility] History of Past illness Narrative* Problem Noted Date Diagnosed Date Resolved Date Sciatica, right side 08/27/2022 022 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 Admitted 07/30/21, underwent elective left VATS wedge resection Assessment: Ready for discharge to home Plan: -Discuss needs with patient and collaborate with case management -Will continue to evaluate during hospital admission -Skilled needs after discharge: none Nonallopathic lesion of rib cage, not elsewhere classified 02/24/2008 02/12/2017 Essential hypertension, benign 10/15/2006 03/10/2008 documented as of this encounter (statuses as of 06/19/2023) [facility] History of Past illness Narrative* Problem Noted Date Diagnosed Date Resolved Date Sciatica, right side 08/27/2022 022 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 Admitted 07/30/21, underwent elective left VATS wedge resection Assessment: Ready for discharge to home Plan: -Discuss needs with patient and collaborate with case management -Will continue to evaluate during hospital admission -Skilled needs after discharge: none Nonallopathic lesion of rib cage, not elsewhere classified 02/24/2008 02/12/2017 Essential hypertension, benign 10/15/2006 03/10/2008 documented as of this encounter (statuses as of 06/30/2023) [facility] History of Past illness Narrative* Problem Noted Date Diagnosed Date Resolved Date Sciatica, right side 08/27/2022 022 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 Admitted 07/30/21, underwent elective left VATS wedge resection Assessment: Ready for discharge to home Plan: -Discuss needs with patient and collaborate with case management -Will continue to evaluate during hospital admission -Skilled needs after discharge: none Nonallopathic lesion of rib cage, not elsewhere classified 02/24/2008 02/12/2017 Essential hypertension, benign 10/15/2006 03/10/2008 documented as of this encounter (statuses as of 07/10/2023) [facility] History of Past illness Narrative* Problem Noted Date Diagnosed Date Resolved Date Sciatica, right side 08/27/2022 022 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 Admitted 07/30/21, underwent elective left VATS wedge resection Assessment: Ready for discharge to home Plan: -Discuss needs with patient and collaborate with case management -Will continue to evaluate during hospital admission -Skilled needs after discharge: none Nonallopathic lesion of rib cage, not elsewhere classified 02/24/2008 02/12/2017 Essential hypertension, benign 10/15/2006 03/10/2008 documented as of this encounter (statuses as of 07/17/2023) [facility] History of Past illness Narrative* Problem Noted Date Diagnosed Date Resolved Date Sciatica, right side 08/27/2022 022 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 Admitted 07/30/21, underwent elective left VATS wedge resection Assessment: Ready for discharge to home Plan: -Discuss needs with patient and collaborate with case management -Will continue to evaluate during hospital admission -Skilled needs after discharge: none Nonallopathic lesion of rib cage, not elsewhere classified 02/24/2008 02/12/2017 Essential hypertension, benign 10/15/2006 03/10/2008 documented as of this encounter (statuses as of 08/04/2023) [facility] History of Past illness Narrative* Problem Noted Date Diagnosed Date Resolved Date Sciatica, right side 08/27/2022 022 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 Admitted 07/30/21, underwent elective left VATS wedge resection Assessment: Ready for discharge to home Plan: -Discuss needs with patient and collaborate with case management -Will continue to evaluate during hospital admission -Skilled needs after discharge: none Nonallopathic lesion of rib cage, not elsewhere classified 02/24/2008 02/12/2017 Essential hypertension, benign 10/15/2006 03/10/2008 documented as of this encounter (statuses as of 08/18/2023) [facility] History of Past illness Narrative* Problem Noted Date Diagnosed Date Resolved Date Sciatica, right side 08/27/2022 022 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 Admitted 07/30/21, underwent elective left VATS wedge resection Assessment: Ready for discharge to home Plan: -Discuss needs with patient and collaborate with case management -Will continue to evaluate during hospital admission -Skilled needs after discharge: none Nonallopathic lesion of rib cage, not elsewhere classified 02/24/2008 02/12/2017 Essential hypertension, benign 10/15/2006 03/10/2008 documented as of this encounter (statuses as of 08/18/2023) [facility] History of Past illness Narrative* Problem Noted Date Diagnosed Date Resolved Date Sciatica, right side 08/27/2022 022 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 Admitted 07/30/21, underwent elective left VATS wedge resection Assessment: Ready for discharge to home Plan: -Discuss needs with patient and collaborate with case management -Will continue to evaluate during hospital admission -Skilled needs after discharge: none Nonallopathic lesion of rib cage, not elsewhere classified 02/24/2008 02/12/2017 Essential hypertension, benign 10/15/2006 03/10/2008 documented as of this encounter (statuses as of 08/19/2023) [facility] History of Past illness Narrative* Problem Noted Date Diagnosed Date Resolved Date Sciatica, right side 08/27/2022 022 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 Admitted 07/30/21, underwent elective left VATS wedge resection Assessment: Ready for discharge to home Plan: -Discuss needs with patient and collaborate with case management -Will continue to evaluate during hospital admission -Skilled needs after discharge: none Nonallopathic lesion of rib cage, not elsewhere classified 02/24/2008 02/12/2017 Essential hypertension, benign 10/15/2006 03/10/2008 documented as of this encounter (statuses as of 08/20/2023) [facility] History of Past illness Narrative* Problem Noted Date Diagnosed Date Resolved Date Sciatica, right side 08/27/2022 022 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 Admitted 07/30/21, underwent elective left VATS wedge resection Assessment: Ready for discharge to home Plan: -Discuss needs with patient and collaborate with case management -Will continue to evaluate during hospital admission -Skilled needs after discharge: none Nonallopathic lesion of rib cage, not elsewhere classified 02/24/2008 02/12/2017 Essential hypertension, benign 10/15/2006 03/10/2008 documented as of this encounter (statuses as of 08/26/2023) [facility] History of Past illness Narrative* Problem Noted Date Diagnosed Date Resolved Date Sciatica, right side 08/27/2022 022 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 Admitted 07/30/21, underwent elective left VATS wedge resection Assessment: Ready for discharge to home Plan: -Discuss needs with patient and collaborate with case management -Will continue to evaluate during hospital admission -Skilled needs after discharge: none Nonallopathic lesion of rib cage, not elsewhere classified 02/24/2008 02/12/2017 Essential hypertension, benign 10/15/2006 03/10/2008 documented as of this encounter (statuses as of 08/26/2023) [facility] History of Past illness Narrative* Problem Noted Date Diagnosed Date Resolved Date Sciatica, right side 08/27/2022 022 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 Admitted 07/30/21, underwent elective left VATS wedge resection Assessment: Ready for discharge to home Plan: -Discuss needs with patient and collaborate with case management -Will continue to evaluate during hospital admission -Skilled needs after discharge: none Nonallopathic lesion of rib cage, not elsewhere classified 02/24/2008 02/12/2017 Essential hypertension, benign 10/15/2006 03/10/2008 documented as of this encounter (statuses as of 08/28/2023) [facility] History of Past illness Narrative* Problem Noted Date Diagnosed Date Resolved Date Sciatica, right side 08/27/2022 022 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 Admitted 07/30/21, underwent elective left VATS wedge resection Assessment: Ready for discharge to home Plan: -Discuss needs with patient and collaborate with case management -Will continue to evaluate during hospital admission -Skilled needs after discharge: none Nonallopathic lesion of rib cage, not elsewhere classified 02/24/2008 02/12/2017 Essential hypertension, benign 10/15/2006 03/10/2008 documented as of this encounter (statuses as of 09/10/2023) [facility] History of Past illness Narrative* Problem Noted Date Diagnosed Date Resolved Date Sciatica, right side 08/27/2022 022 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 Admitted 07/30/21, underwent elective left VATS wedge resection Assessment: Ready for discharge to home Plan: -Discuss needs with patient and collaborate with case management -Will continue to evaluate during hospital admission -Skilled needs after discharge: none Nonallopathic lesion of rib cage, not elsewhere classified 02/24/2008 02/12/2017 Essential hypertension, benign 10/15/2006 03/10/2008 documented as of this encounter (statuses as of 09/10/2023) [facility] History of Past illness Narrative* Problem Noted Date Diagnosed Date Resolved Date Sciatica, right side 08/27/2022 022 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 Admitted 07/30/21, underwent elective left VATS wedge resection Assessment: Ready for discharge to home Plan: -Discuss needs with patient and collaborate with case management -Will continue to evaluate during hospital admission -Skilled needs after discharge: none Nonallopathic lesion of rib cage, not elsewhere classified 02/24/2008 02/12/2017 Essential hypertension, benign 10/15/2006 03/10/2008 documented as of this encounter (statuses as of 09/10/2023) [facility] History of Past illness Narrative* Problem Noted Date Diagnosed Date Resolved Date Sciatica, right side 08/27/2022 022 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 Admitted 07/30/21, underwent elective left VATS wedge resection Assessment: Ready for discharge to home Plan: -Discuss needs with patient and collaborate with case management -Will continue to evaluate during hospital admission -Skilled needs after discharge: none Nonallopathic lesion of rib cage, not elsewhere classified 02/24/2008 02/12/2017 Essential hypertension, benign 10/15/2006 03/10/2008 documented as of this encounter (statuses as of 09/10/2023) [facility] History of Past illness Narrative* Problem Noted Date Diagnosed Date Resolved Date Sciatica, right side 08/27/2022 022 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 Admitted 07/30/21, underwent elective left VATS wedge resection Assessment: Ready for discharge to home Plan: -Discuss needs with patient and collaborate with case management -Will continue to evaluate during hospital admission -Skilled needs after discharge: none Nonallopathic lesion of rib cage, not elsewhere classified 02/24/2008 02/12/2017 Essential hypertension, benign 10/15/2006 03/10/2008 documented as of this encounter (statuses as of 09/23/2023) [facility] History of Past illness Narrative* Problem Noted Date Diagnosed Date Resolved Date Sciatica, right side 08/27/2022 022 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 Admitted 07/30/21, underwent elective left VATS wedge resection Assessment: Ready for discharge to home Plan: -Discuss needs with patient and collaborate with case management -Will continue to evaluate during hospital admission -Skilled needs after discharge: none Nonallopathic lesion of rib cage, not elsewhere classified 02/24/2008 02/12/2017 Essential hypertension, benign 10/15/2006 03/10/2008 documented as of this encounter (statuses as of 10/20/2023) [facility] History of Past illness Narrative* Problem Noted Date Diagnosed Date Resolved Date Sciatica, right side 08/27/2022 022 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 Admitted 07/30/21, underwent elective left VATS wedge resection Assessment: Ready for discharge to home Plan: -Discuss needs with patient and collaborate with case management -Will continue to evaluate during hospital admission -Skilled needs after discharge: none Nonallopathic lesion of rib cage, not elsewhere classified 02/24/2008 02/12/2017 Essential hypertension, benign 10/15/2006 03/10/2008 documented as of this encounter (statuses as of 11/08/2023) [facility] History of Past illness Narrative* Problem Noted Date Diagnosed Date Resolved Date Sciatica, right side 08/27/2022 022 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 Admitted 07/30/21, underwent elective left VATS wedge resection Assessment: Ready for discharge to home Plan: -Discuss needs with patient and collaborate with case management -Will continue to evaluate during hospital admission -Skilled needs after discharge: none Nonallopathic lesion of rib cage, not elsewhere classified 02/24/2008 02/12/2017 Essential hypertension, benign 10/15/2006 03/10/2008 documented as of this encounter (statuses as of 12/11/2023) [facility] History of Past illness Narrative* Problem Noted Date Diagnosed Date Resolved Date Sciatica, right side 08/27/2022 022 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 Admitted 07/30/21, underwent elective left VATS wedge resection Assessment: Ready for discharge to home Plan: -Discuss needs with patient and collaborate with case management -Will continue to evaluate during hospital admission -Skilled needs after discharge: none Nonallopathic lesion of rib cage, not elsewhere classified 02/24/2008 02/12/2017 Essential hypertension, benign 10/15/2006 03/10/2008 documented as of this encounter (statuses as of 01/21/2024) [facility] History of Past illness Narrative* Problem Noted Date Diagnosed Date Resolved Date Sciatica, right side 08/27/2022 022 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 Admitted 07/30/21, underwent elective left VATS wedge resection Assessment: Ready for discharge to home Plan: -Discuss needs with patient and collaborate with case management -Will continue to evaluate during hospital admission -Skilled needs after discharge: none Nonallopathic lesion of rib cage, not elsewhere classified 02/24/2008 02/12/2017 Essential hypertension, benign 10/15/2006 03/10/2008 documented as of this encounter (statuses as of 01/21/2024) [facility] History of Past illness Narrative* Problem Noted Date Diagnosed Date Resolved Date Sciatica, right side 08/27/2022 022 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 Admitted 07/30/21, underwent elective left VATS wedge resection Assessment: Ready for discharge to home Plan: -Discuss needs with patient and collaborate with case management -Will continue to evaluate during hospital admission -Skilled needs after discharge: none Nonallopathic lesion of rib cage, not elsewhere classified 02/24/2008 02/12/2017 Essential hypertension, benign 10/15/2006 03/10/2008 documented as of this encounter (statuses as of 01/25/2024) [facility] History of Past illness Narrative* Problem Noted Date Diagnosed Date Resolved Date Sciatica, right side 08/27/2022 022 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 Admitted 07/30/21, underwent elective left VATS wedge resection Assessment: Ready for discharge to home Plan: -Discuss needs with patient and collaborate with case management -Will continue to evaluate during hospital admission -Skilled needs after discharge: none Nonallopathic lesion of rib cage, not elsewhere classified 02/24/2008 02/12/2017 Essential hypertension, benign 10/15/2006 03/10/2008 documented as of this encounter (statuses as of 02/23/2024) [facility]10-18-[facility] History of Present illness Narrative* Eduar Loaiza, RT(R) - 08/26/2022 4:30 PM EDT Radiology Service Progress Note PATIENT NAME: Terri Burciaga DATE OF SERVICE: August 26, 2022 TIME: 4:33 PM PATIENT IDENTITY VERIFICATION COMPLETED USING TWO (2) IDENTIFIERS: Name and Date of confirmedby patient verbally. FALL SCREENING: Has the patient had 2 falls in the last year or 1 fall with injury or currently using an Ambulatory Assistive Device (Walker, Cane, Wheelchair, Crutches, etc.)? No PATIENT GENDER DATA: Female. status: : No status: NO. PATIENT RELEVANT IMPLANT DATA REVIEWED: Not Applicable RADIOLOGY DEPARTMENT: General X-ray: Exam(s) Completed: Spine X-Ray(s): Lumbar AP / LAT / L5-S1 PERIPHERAL IV DATA: Not applicable SIGNED BY: RT Alessio(R) August 26, 2022 4:33 PM documented in this encounterTri[facility] Miscellaneous Notes* Telephone Encounter - Luc Faustin PA-C - 08/22/2022 6:01 PM EDT The following approved medication requests have been transmitted electronically. Requested Prescriptions Signed Prescriptions Disp Refills traMADol (ULTRAM) 100 mg tablet 28 tablet 0 Sig: Take 1 tablet by mouth every 6 hours as needed for pain for up to 7 days. Authorizing Provider: Luc FAUSTIN PA-C * Telephone Encounter - Rocio Guo LPN - 08/22/2022 9:27 AM EDT Patient is calling on status of refill & x-ray request. Rocio Guo LPN * Telephone Encounter - Coni Mcdaniel RN - 08/21/2022 1:30 PM EDT Patient calls and states that she has been taking 2 tablets every 6 hours and it has helped immensely. Patient asking for refill to be sent into pharmacy. Patient also asking for her right hip to be x rayed. Please review and advise, Coni Mcdaniel RN documented in this encounterTri[facility] Miscellaneous Notes* Telephone Encounter - Patricia Motley Ma - 08/18/2022 11:36 AM EDT Pt notified and voiced understanding. Instructed to keep appt with urology. She states she drink decaf coffee and already avoids artificial sweeteners. Patricia Motley Ma * Telephone Encounter - Patricia Motley Ma - 08/18/2022 11:35 AM EDT ----- Message from Luc Faustin PA-C sent at 08/16/2022 3:28 PM EDT ----- Please advise no evidence of retained urine, normal bladder. I would consider eliminating the following is she uses: caffeine, artificial sweeteners. Thanks, Isreal Faustin PA-C documented in this encounterTri[facility] History of Present illness Narrative* Amina Botello RDMS - 08/15/2022 11:30 AM EDT Radiology Service Progress Note PATIENT NAME: Terri Burciaga DATE OF SERVICE: August 15, 2022 TIME: 12:10 PM PATIENT IDENTITY VERIFICATION COMPLETED USING TWO (2) IDENTIFIERS: Name and Date of confirmedby patient verbally. FALL SCREENING: Has the patient had 2 falls in the last year or 1 fall with injury or currently using an Ambulatory Assistive Device (Walker, Cane, Wheelchair, Crutches, etc.)? No PATIENT GENDER DATA: Female. status: : No status: NO. PATIENT RELEVANT IMPLANT DATA REVIEWED: Not Applicable RADIOLOGY DEPARTMENT: Ultrasound PERIPHERAL IV DATA: Not applicable SIGNED BY: Amina Botello RDMS August 15, 2022 12:10 PM documented in this encounterTrihealth [facility] Miscellaneous Notes* Telephone Encounter - Sandy Hernandez LPN - 08/13/2022 11:10 AM EDT Patient notified. Soonest to be scheduled is Thursday. 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 Patient is aware * Telephone Encounter - Luc Faustin PA-C - 08/13/2022 10:47 AM EDT Bacterial count too low for UTI as explained. Please schedule post void residual US today if possible. Please schedule consult [facility] or [facility] Dr. Lopez Telephone on 08/13/22 US PELVIS BLADDER CONSULT TO FEMALE UROLOGY/URO GYNECOLOGY Feeling of incomplete bladder emptying (primary encounter diagnosis) ThanksIsreal PA-C * Telephone Encounter - Valorie Castañeda Ma - 08/13/2022 9:33 AM EDT Call to pt and notified her of response below. Pt unsure how there was contamination she wiped with3 wipes. Asking if she gets an abx, notified due to Cx she did not. Continues to still have frequency and pressure. Notified her I would route message back to Provider to review and advise on. Valorie Castañeda Ma * Telephone Encounter - Valorie Castañeda Ma - 08/13/2022 9:31 AM EDT ----- Message from Luc Faustin PA-C sent at 08/13/2022 9:03 AM EDT ----- Please advise urine demonstrated mixed bacteria indicating probable skin contamination into low to qualify as a urinary tract infection. Isreal Bro PA-C documented in this encounterTrihealth [facility] History of Present illness Narrative* Luc Faustin PA-C - 08/11/2022 3:14 PM EDT 76 year old female with c/o pain in right sciatic traveling lateral thigh, calf and into 4th and 5th toes. Feels some weakness in right leg. No numbness tingling, loss of sensation. Lanacane numbed skin but didn't help. Taking tylenol, some leftover [place] from lung surgery. Issues with incomplete voiding Was examined by urology CIRCULAR RIPSAW OPERATOR Elissa Parks Urine wasn't complete HISTORIES FAMILY HISTORY Problem Relation Age of Onset Hypertension Mother other (macular degeneration) Mother Coronary Artery Disease Father Stroke Father other (CABG) Father Coronary Artery Disease Sister Coronary Artery Disease Brother Ischemic Heart Disease Paternal Grandfather other (Peripheral Vascular Disease) Sister Hypertension Sister Hypertension Sister Hypertension Brother Hypertension Son PAST MEDICAL HISTORY Diagnosis Date Arrhythmia Benign neoplasm of colon Calculus of kidney Chest pain, unspecified non cardiac Esophageal reflux Esophagitis, unspecified Granulomatous disease (HCC) History of recurrent UTIs HYPERLIPIDEMIA NEC/NOS 03/16/2009 HYPERTENSION NOS 03/10/2008 Mental disorder FRIEDA on CPAP Osteopenia BMD 12/12/2011 PAST SURGICAL HISTORY Procedure Laterality Date ABDOMINAL SURGERY HX APPENDECTOMY HX COLONOSCOPY COLONOSCOPY FLX DX W/COLLJ SPEC WHEN PFRMD 01/11/2016 Colonoscopy COLSC FLX W/RMVL OF TUMOR POLYP LESION SNARE TQ 02/05/2012 repeat 5 years EGD 02/05/2012 ESOPHAGOGASTRODUODENOSCOPY TRANSORAL DIAGNOSTIC 10/16/2008 EGD ESOPHAGOGASTRODUODENOSCOPY TRANSORAL DIAGNOSTIC 01/11/2016 EGD LYSIS OF ADHESIONS SALPINX/OVARY x6 OOPHORECTOMY, PART/TOTAL UNILAT/BILAT bilateral salpingectomy and left oophorectomy REM LESION TRUNK,ARM,LEG > 4.0CM 07/11/2022 REMV LUNG,WEDGE RESECTION Left 07/30/2021 VATS wedge resection of left lower lobe wedge SKIN EXCISION 07/11/2022 anterior chest wall & left torso TOTAL ABDOMINAL HYSTERECT W/WO RMVL TUBE OVARY 11/09/1969 endometriosis, change in ovary, right oophorectomy VAGINAL HYSTERECTOMY Social History Tobacco Use Smoking status: Former Packs/day: 1.50 Years: 20.00 Pack years: 30.00 Types: Cigarettes Quit date: 11/09/1980 Years since quittin.7 Smokeless tobacco: Never Tobacco comments: up to 3 PPD Vaping Use Vaping Use: Never used Substance Use Topics Alcohol use: No Drug use: No ACTIVE PROBLEM LIST Lipoma of Unspecified Site Peripheral Vertigo, Unspecified Essential Hypertension With Goal Blood Pressure Less Than 140/90 Esophageal Reflux Mixed Hyperlipidemia Depression Nocturnal Muscle Cramps Obesity Osteopenia History of Colon Polyps Dry Eye Syndrome Nuclear Sclerosis of Both Eyes Blepharitis of Both Upper and Lower Eyelid of Right Eye Prediabetes 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 Vitreous Floaters of Both Eyes Stage 3b Chronic Kidney Disease (Hcc) 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 cyclobenzaprine (FLEXERIL) 5 mg tablet Take 1 tablet by mouth three times daily as needed. 30 tablet 1 cloNIDine HCl (CATAPRES) 0.1 mg tablet Take 1 tablet by mouth daily at bedtime. 90 tablet 3 losartan (COZAAR) 100 mg tablet Take 1 tablet by mouth once daily. 90 tablet 3 potassium chloride ER (K-DUR, KLOR-CON) 20 mEq tablet Take 1 tablet by mouth twice daily. 180 tablet 3 hydroCHLOROthiazide (HYDRODIURIL, ESIDRIX) 12.5 mg capsule Take 1 capsule by mouth once daily. 90 capsule 3 Vitamin E 1 mg, Vitamin A 1 mg, Collagen Support Vaginal Cream (CPD) Apply 1 g to affected area three times a week. 20 g 3 pyridoxine, vitamin B6, (VITAMIN B6) 100 mg tablet Take 100 mg by mouth once daily. Magnesium 200 mg tab Take 1 tablet by mouth once daily. Garlic 100 mg tab Take 1 tablet by mouth once daily. Zinc 50 mg tab Take by mouth. Calcium magnesium esomeprazole (NEXIUM) 20 mg capsule Take 1 capsule by mouth DAILY (6 AM). BIOTIN ORAL Take by mouth. diphenhydrAMINE HCl 12.5 mg chewable tablet Take 12.5 mg by mouth at bedtime as needed. Cholecalciferol, Vitamin D3, 25 mcg (1,000 unit) cap Take 1,000 Units by mouth once daily. No current facility-administered medications for this visit. COVID-19 VACCINE(1) Never done BP CONTROLLED (<130/80) Never done INFLUENZA(1) due on 07/10/2022 EXAM: BP 122/74 Pulse 78 Resp 16 Wt 87.5 kg (193 lb) SpO2 97% BMI 40.34 kg/m Pleasant obese adult woman in no acute distress. Alert and oriented all spheres. Normal affect and cognition. Speech normal. No deficits to learning or comprehension. Skin warm, dry, pink to lips and nailbeds. Normal turgor. Respirations regular and unlabored. Spine with mild lordosis Right innominate restriction. + TTPS right paralumbar, piriformis Extrem: no clubbing or cyanosis. Edema: none. Extremities are warm and pink with prompt capillary refill. Motor full lower extremities. With 2/4+ DTRs' knee, Achilles OMT with permission: myofascial release to trigger points in right lumbar, and piriformis. ASSESSMENT/PLAN: 1. Feeling of incomplete bladder emptying - ICD9: 788.21, ICD10: R39.14 - URINALYSIS, WITH MICROSCOPIC - URINE CULTURE ASSESSMENT/PLAN: 1. Feeling of incomplete bladder emptying - ICD9: 788.21, ICD10: R39.14 (primary diagnosis) Complete outstanding lab - URINALYSIS, WITH MICROSCOPIC - URINE CULTURE 2. Sciatica, right side - ICD9: 724.3, ICD10: M54.31 Ice/ moist heat, lineaments, OTC analgesics as needed. Stretching and posture reviewed. Improved with OMT Piriformis exercises reviewed - TRAMADOL 50 MG TABLET - METHYLPREDNISOLONE 4 MG TABLETS IN A DOSE PACK F/u prn not improving Luc Faustin PA-C documented in this encounterTrihealth [facility]09[facility] History of Present illness Narrative* Venessa Rosa MD - 07/30/2022 6:12 PM EDT FOLLOW UP VISIT NAME: Terri Garza [facility] NO.: [id number] DATE OF SERVICE: 07/30/2022 : 1945 REFERRING PHYSICIAN: MD Terri Tinsley is status post excision of lipomas of left torso and anterior chest wall area. This was doneon 07/11/2022. Pathology reveals lipoma at both sites. VITALS: Blood pressure 130/78, pulse 81, temperature 36.3 C (97.4 F), SpO2 96 %. On examination, the incisional sites are well healed. No evidence of infection Assessment IMPRESSION: status post lipoma excisions PLAN: Follow up with me as per needed. Patient to return to her PCP for medical care. Diagnoses: (Z98.890, Z86.018) Status post excision of lipoma (primary encounter diagnosis) I have confirmed and edited as necessary, the PFSH and ROS obtained by others. Venessa Rosa MD documented in this encounterTrihealth M[facility]09-[facility] Nurse Note* Sarah Miranda LPN - 07/28/2022 4:20 PM EDT Bladder scan obtained 0 ml urine documented in this encounterTrihealth M[facility]09-[facility] History of Present illness Narrative* Elsisa Parks APRN.CIRCULAR RIPSAW OPERATOR - 07/28/2022 4:00 PM EDT Images from the original note were not included. [facility] [place] Patient: Terri Garza Sissy Provider Elissa Parks APRN.CIRCULAR RIPSAW OPERATOR : 1945 Location: [facility]) Date of Service: July 28, 2022 Referring Provider: Shirin Draper APRN.* PCP: Andre Santana MD Chief Complaint: bladder pressure and incomplete emptying. History of Present Illness: 76 year old female who presents with continued feelings of incomplete emptying. After she urinated, she felt like she had to go, and she had nothing there. She had a catheter July last year and hasn't felt quite right since. Denies bladder spasms, dysuria or frequent UTI. She had a hysterectomy 52 years ago (1969) , she had a c section with a hyster after. She reports having sciatica pain that is severe. Last seen by Shirin Bolton 04/22/22 Bladder pressure and incomplete emptying: Patient reports that she has felt this since she had lung surgery last fall after they took the indwelling catheter out. History of hysterectomy in 1969. Denies blood in the urine. She has a history of kidney stones. UUI: rare NADEGE: none Nocturia: 0 times per night No bulge or prolapse. Hysterectomy 1969 She reports having chronic UTI before hyster but has not had UTI in many years She has h/o kidney stones last stone 30 years ago. One surgery She has vaginal dryness using replenish she does not wish to use estrogen will try non-hormonal vaginal cream. She denies gross hematuria. No dysuria. No fever or chills. UA is negative today PVR 2cc today Patient denies dysuria and gross hematuria. Patient denies fever, chills, rigors, nausea, vomiting and malaise. Patient denies abdominal and flank pain. She reports 0 incontinent events per day. Voids 7-10 times per day and 0-1 times per night. She uses 1-2 pads per day. denies dysuria and reports bladder emptying with normal flow. She also denies any bowel problems. RELEVANT REVIEW OF SYSTEMS: CONSTITUTIONAL: no recent illnesses, normal energy levels, no pain GASTROINTESTINAL: no constipation, no diarrhea, no bloody stool GENITOURINARY: see history of present illness MUSCULOSKELETAL: no joint swelling, no joint pain, no loss of mobility, lower back pain. NEUROLOGIC: no stroke symptoms, no loss of function, no loss of sensation PSYCHIATRIC: no feelings of depression, no feelings of anxiety, normal mood SKIN: no persistent rashes, no predisposition to infection, no poor wound healing HEMATOLOGIC: no easy bruising, no easy bleeding, no clotting predisposition Reviewed medications, allergies, PMH, surgical history, social history and family history. No change from Visit date not found MEDICAL HISTORY: PAST MEDICAL HISTORY Diagnosis Date Arrhythmia Benign neoplasm of colon Calculus of kidney Chest pain, unspecified non cardiac Esophageal reflux Esophagitis, unspecified Granulomatous disease (HCC) History of recurrent UTIs HYPERLIPIDEMIA NEC/NOS 03/16/2009 HYPERTENSION NOS 03/10/2008 Mental disorder FRIEDA on CPAP Osteopenia BMD 12/12/2011 SURGICAL HISTORY: PAST SURGICAL HISTORY Procedure Laterality Date ABDOMINAL SURGERY HX APPENDECTOMY HX COLONOSCOPY COLONOSCOPY FLX DX W/COLLJ SPEC WHEN PFRMD 01/11/2016 Colonoscopy COLSC FLX W/RMVL OF TUMOR POLYP LESION SNARE TQ 02/05/2012 repeat 5 years EGD 02/05/2012 ESOPHAGOGASTRODUODENOSCOPY TRANSORAL DIAGNOSTIC 10/16/2008 EGD ESOPHAGOGASTRODUODENOSCOPY TRANSORAL DIAGNOSTIC 01/11/2016 EGD LYSIS OF ADHESIONS SALPINX/OVARY x6 OOPHORECTOMY, PART/TOTAL UNILAT/BILAT bilateral salpingectomy and left oophorectomy REM LESION TRUNK,ARM,LEG > 4.0CM 07/11/2022 REMV LUNG,WEDGE RESECTION Left 07/30/2021 VATS wedge resection of left lower lobe wedge TOTAL ABDOMINAL HYSTERECT W/WO RMVL TUBE OVARY 11/09/1969 endometriosis, change in ovary, right oophorectomy VAGINAL HYSTERECTOMY SOCIAL HISTORY: Social History Tobacco Use Smoking status: Former Packs/day: 1.50 Years: 20.00 Pack years: 30.00 Types: Cigarettes Quit date: 11/09/1980 Years since quittin.7 Smokeless tobacco: Never Tobacco comments: up to 3 PPD Vaping Use Vaping Use: Never used Substance Use Topics Alcohol use: No Drug use: No FAMILY HISTORY: FAMILY HISTORY Problem Relation Age of Onset Hypertension Mother other (macular degeneration) Mother Coronary Artery Disease Father Stroke Father other (CABG) Father Coronary Artery Disease Sister Coronary Artery Disease Brother Ischemic Heart Disease Paternal Grandfather other (Peripheral Vascular Disease) Sister Hypertension Sister Hypertension Sister Hypertension Brother Hypertension Son MEDICATIONS: Current Outpatient Medications on File Prior to Visit Medication Sig cyclobenzaprine (FLEXERIL) 5 mg tablet Take 1 tablet by mouth three times daily as needed. cloNIDine HCl (CATAPRES) 0.1 mg tablet Take 1 tablet by mouth daily at bedtime. losartan (COZAAR) 100 mg tablet Take 1 tablet by mouth once daily. potassium chloride ER (K-DUR, KLOR-CON) 20 mEq tablet Take 1 tablet by mouth twice daily. hydroCHLOROthiazide (HYDRODIURIL, ESIDRIX) 12.5 mg capsule Take 1 capsule by mouth once daily. Vitamin E 1 mg, Vitamin A 1 mg, Collagen Support Vaginal Cream (CPD) Apply 1 g to affected area three times a week. pyridoxine, vitamin B6, (VITAMIN B6) 100 mg tablet Take 100 mg by mouth once daily. Magnesium 200 mg tab Take 1 tablet by mouth once daily. Garlic 100 mg tab Take 1 tablet by mouth once daily. Zinc 50 mg tab Take by mouth. Calcium magnesium esomeprazole (NEXIUM) 20 mg capsule Take 1 capsule by mouth DAILY (6 AM). BIOTIN ORAL Take by mouth. diphenhydrAMINE HCl 12.5 mg chewable tablet Take 12.5 mg by mouth at bedtime as needed. Cholecalciferol, Vitamin D3, 25 mcg (1,000 unit) cap Take 1,000 Units by mouth once daily. No current facility-administered medications on file prior to visit. ALLERGIES: Cigarette Smoke [Other], Adhesive Tape (Rosins), Aleve [Naproxen Sodium], Ativan [Lorazepam], Cats,Lopressor [Metoprolol Tartrate], Nickel, Norvasc [Amlodipine Besylate], Sulfa (Sulfonamide Antibiotics), and Vioxx [Rofecoxib] PHYSICAL EXAMINATION: GENERAL: alert, no distress, normal affect ABDOMEN: non obese, soft, non-tender, non-distended GENITOURINARY: no flank tenderness EXTREMITIES: warm, no dependent edema, no malformations SKIN: no abnormal bruising, no rashes, no cyanosis NEUROLOGIC: normal gait, good manual dexterity, no paralysis OFFICE DATA: POST-VOID RESIDUAL VOLUME: 0 CC DATA: (Simple=1 data point; Complex= 2 or more) Specific [place], Ur Date Value Ref Range Status 07/26/2021 1.021 1.005 - 1.030 Final Glucose, Urine Date Value Ref Range Status 07/26/2021 Negative Negative mg/dL Final Bilirubin, Urine Date Value Ref Range Status 07/26/2021 Negative Negative Final Ketones, Urine Date Value Ref Range Status 07/26/2021 Negative Negative Final Hemoglobin/Blood,Ur Date Value Ref Range Status 07/26/2021 Negative Negative Final Protein, Urine Date Value Ref Range Status 07/26/2021 Negative Negative Final Urobilinogen, Urine Date Value Ref Range Status 07/22/2018 normal Normal (<1.1) EU Final Nitrites Date Value Ref Range Status 07/26/2021 Negative Negative Final WBC, Urine Date Value Ref Range Status 01/06/2020 0-5 0 - 5 /HPF Final SSA Antibody IgG Date Value Ref Range Status 07/01/2022 >8.0 (H) <1.0 AI Final Comment: Test Methodology: Multiplex flow immunoassay. BMP Latest Ref Rng & Units 05/08/2022 10/16/2021 08/21/2021 GLUCOSE 74 - 99 mg/dL 90 93 99 BUN 7 - 21 mg/dL 17 16 14 CREATININE 0.58 - 0.96 mg/dL 0.98(H) 1.05(H) 1.09(H) SODIUM 136 - 144 mmol/L 138 138 139 POTASSIUM 3.7 - 5.1 mmol/L 4.2 4.0 3.8 CHLORIDE 97 - 105 mmol/L 101 102 103 CO2 22 - 30 mmol/L 25 25 24 ANION GAP 9 - 18 mmol/L 12 11 12 CALCIUM, TOTAL 8.5 - 10.2 mg/dL 9.7 9.5 9.5 eGFR >=60 mL/min/1.73m 60 51 49 EGFR- - - >60 59 EGFR-ALL OTHER RACES . - 51 49 EGFR-PEDIATRIC FACTOR - - - - Hemoglobin (g/dL) Date Value 05/08/2022 14.6 10/16/2021 14.6 Hematocrit (%) Date Value 05/08/2022 47.2 10/16/2021 46.9 WBC (k/uL) Date Value 05/08/2022 5.94 10/16/2021 6.22 Platelet Count (k/uL) Date Value 05/08/2022 206 10/16/2021 214 Creatinine (mg/dL) Date Value 05/08/2022 0.98 10/16/2021 1.05 08/21/2021 1.09 08/01/2021 1.06 07/31/2021 1.01 07/31/2021 Unable to assay. Specimen incorrectly identified. Hematocrit (%) Date Value 05/08/2022 47.2 10/16/2021 46.9 08/21/2021 44.3 Admission on 07/11/2022, Discharged on 07/11/2022 Component Date Value Ref Range Status Case Report 07/11/2022 Final Value:Surgical Pathology Report Case: [id number] Authorizing Provider: Venessa Rosa MD Collected: 07/11/2022 12:40 PM Ordering Location: Ambulatory Surgery Received: 07/11/2022 02:04 PM Pathologist: Mayur Emery MD Specimens: A) - LIPOMA, anterior chest wall lipoma B) - LIPOMA, left torso lipoma FINAL DIAGNOSIS 07/11/2022 Final Value:This result contains rich text formatting which cannot be displayed here. Gross Description 07/11/2022 Final Value:This result contains rich text formatting which cannot be displayed here. Clinical History 07/11/2022 Final Value:This result contains rich text formatting which cannot be displayed here. Performing Lab 07/11/2022 Final Value:This result contains rich text formatting which cannot be displayed here. RADIOLOGY IMAGES: I have personally reviewed the patient's films and the relevant findings are Additional data reviewed: U/A, US kidneys and bladder I ORDERED A URINALYSIS: RESULTS FOLLOWS see laboratory report Risk of complication and/or Morbidity or Mortality: MODERATE Encounter Diagnosis: (R39.89) Sensation of pressure in bladder area (primary encounter diagnosis) (R39.14) Feeling of incomplete bladder emptying (R82.3) Hemoglobinuria PLAN: (Management Options) Urine microscope for hemoglobinuria: if positive then do cystoscopy. Follow up with phone call. Can consider medication for OAB if needed. MEDICAL DECISION MAKING: Medical Decision Making: Problems: Moderate: New problem with uncertain prognosis Data: Unique test(s) ordered: 2 Assessment requiring an independent historian(s) Risk: Moderate: Moderate risk from testing/treatment Medical Decision Making Level: 4 - Moderate SIGNATURE: Elissa Parks APRN.CNP PATIENT NAME: Terri Burciaga DATE: July 28, 2022 OFFICE NUMBER: [phone] documented in this encounterTri[facility] History of Present illness Narrative* Venessa Rosa MD - 07/07/2022 6:12 PM EDT HISTORY AND PHYSICAL Terr[place] Greg Burciaga 1945 REFERRING PHYSICIAN: Luc Faustin PA-C CHIEF COMPLAINT: Consult (Lipomas chest & back) HPI: The patient is a 76 year old female presents with complaint of multiple subcutaneous masses which are causing her irritation. She has noted an anterior chest wall lesion for years which she requests removal. She also notes a painful subcutaneous mass of the lateral left back area near a previous incision which she requests removal. She denies drainage at these sites. PAST MEDICAL HISTORY Diagnosis Date Arrhythmia Benign neoplasm of colon Calculus of kidney Chest pain, unspecified non cardiac Esophageal reflux Esophagitis, unspecified Granulomatous disease (HCC) History of recurrent UTIs HYPERLIPIDEMIA NEC/NOS 03/16/2009 HYPERTENSION NOS 03/10/2008 Mental disorder FRIEDA on CPAP Osteopenia BMD 12/12/2011 PAST SURGICAL HISTORY Procedure Laterality Date COLONOSCOPY COLONOSCOPY FLX DX W/COLLJ SPEC WHEN PFRMD 01/11/2016 Colonoscopy COLSC FLX W/RMVL OF TUMOR POLYP LESION SNARE TQ 02/05/2012 repeat 5 years EGD 02/05/2012 ESOPHAGOGASTRODUODENOSCOPY TRANSORAL DIAGNOSTIC 10/16/2008 EGD ESOPHAGOGASTRODUODENOSCOPY TRANSORAL DIAGNOSTIC 01/11/2016 EGD LYSIS OF ADHESIONS SALPINX/OVARY x6 OOPHORECTOMY, PART/TOTAL UNILAT/BILAT bilateral salpingectomy and left oophorectomy REMV LUNG,WEDGE RESECTION Left 07/30/2021 VATS wedge resection of left lower lobe wedge TOTAL ABDOMINAL HYSTERECT W/WO RMVL TUBE OVARY 11/09/1969 endometriosis, change in ovary, right oophorectomy Current Outpatient Medications Medication Sig cyclobenzaprine (FLEXERIL) 5 mg tablet Take 1 tablet by mouth three times daily as needed. cloNIDine HCl (CATAPRES) 0.1 mg tablet Take 1 tablet by mouth daily at bedtime. losartan (COZAAR) 100 mg tablet Take 1 tablet by mouth once daily. potassium chloride ER (K-DUR, KLOR-CON) 20 mEq tablet Take 1 tablet by mouth twice daily. hydroCHLOROthiazide (HYDRODIURIL, ESIDRIX) 12.5 mg capsule Take 1 capsule by mouth once daily. Vitamin E 1 mg, Vitamin A 1 mg, Collagen Support Vaginal Cream (CPD) Apply 1 g to affected area three times a week. acetaminophen (TYLENOL) 500 mg tablet Take 2 tablets by mouth every 6 hours as needed for pain. pyridoxine, vitamin B6, (VITAMIN B6) 100 mg tablet Take 100 mg by mouth once daily. Magnesium 200 mg tab Take 1 tablet by mouth once daily. Garlic 100 mg tab Take 1 tablet by mouth once daily. Zinc 50 mg tab Take by mouth. Calcium magnesium esomeprazole (NEXIUM) 20 mg capsule Take 1 capsule by mouth DAILY (6 AM). BIOTIN ORAL Take by mouth. diphenhydrAMINE HCl 12.5 mg chewable tablet Take 12.5 mg by mouth at bedtime as needed. Cholecalciferol, Vitamin D3, 25 mcg (1,000 unit) cap Take 1,000 Units by mouth once daily. ALLERGIES: Cigarette Smoke [Other], Adhesive Tape (Rosins), Aleve [Naproxen Sodium], Ativan [Lorazepam], Cats, Lopressor [Metoprolol Tartrate], Nickel, Norvasc [Amlodipine Besylate], Sulfa (Sulfonamide Antibiotics), and Vioxx [Rofecoxib] PERSONAL HISTORY: Social History Tobacco Use Smoking status: Former Packs/day: 1.50 Years: 20.00 Pack years: 30.00 Types: Cigarettes Quit date: 11/09/1980 Years since quittin.6 Smokeless tobacco: Never Tobacco comments: up to 3 PPD Vaping Use Vaping Use: Never used Substance Use Topics Alcohol use: No Drug use: No FAMILY HISTORY Problem Relation Age of Onset Hypertension Mother other (macular degeneration) Mother Coronary Artery Disease Father Stroke Father other (CABG) Father Coronary Artery Disease Sister Coronary Artery Disease Brother Ischemic Heart Disease Paternal Grandfather other (Peripheral Vascular Disease) Sister Hypertension Sister Hypertension Sister Hypertension Brother Hypertension Son The review of systems data was entered by the nurse and reviewed by ga Nursing Notes: Emily Blake RN 07/07/2022 4:00 PM Signed REVIEW OF SYSTEMS: General: The patient denies fatigue, denies weight loss, denies weight gain, denies feeling hot, and denies feelings of cold. Eyes: The patient denies glaucoma, denies eye injury/surgery, wears glasses or contacts. Ear/Nose/Throat: The patient NOTES allergies, denies hayfever, denies ear infections, and denies bloody noses. Cardiovascular: The patient denies chest pain, denies heart disease, NOTES high blood pressure,denies cardiac stent, denies prior heart attack, denies irregular heart beat, NOTES high cholesterol, denies poor circulation, denies heart failure, other cardiac issues, denies claudication, denies cold feet, denies peripheral arterial stent. Respiratory: The patient denies tuberculosis, NOTES pneumonia, denies frequent cough, denies pulmonary embolism, denies shortness of breath, and denies coughing up blood. Gastrointestinal: The patient denies difficulty swallowing, NOTES acid reflux, denies ulcers, denies vomiting, denies jaundice/hepatitis, NOTES gallbladder problems, denies black or tarry stools, denies hemorrhoids, denies bleeding from rectum, denies diverticulitis, denies constipation, denies diarrhea, denies loss of stool control, and denies hernias. Kidney/Bladder: The patient NOTES kidney stones, denies urine infections, and denies bloody urine. Skin: The patient denies a history of skin cancer, denies bleeding/changing moles, and denies a history of skin rash. Neurologic: The patient denies a history of epilepsy/convulsions, denies headaches, denies head/spinal injuries, and denies stroke/TIA. Psychiatric: The patient denies psychiatric medications, denies depression, and denies voices, denies substance abuse. Endocrine: The patient denies thyroid disorders, denies diabetes, and denies hormonal problems. Hematologic: The patient denies a history of bruising, denies bleeding, and denies anemia, denies blood clots. Infections: The patient NOTES a history of measles and mumps, denies rheumatic fever, and denies sexually transmitted diseases. Musculoskeletal: The patient denies back pain/injury, NOTES back problems, NOTES sciatica, denies knee/foot trouble, NOTES arthritis, or denies gout. When was patient's last Mammogram screening? 2020 Last Colonoscopy: 2015 Emily Blake RN PHYSICAL EXAMINATION: General: The patient is 76 year old female, well nourished, well hydrated in no acute distress. Thepatient is oriented to time, place, and person. VITALS: Blood pressure 124/72, pulse 97, temperature 36.5 C (97.7 F), height 147.3 cm (4' 10), weight 88 kg (194 lb), SpO2 97 %. Body mass index is 40.55 kg/m . Head: Normal cephalic, atraumatic Eyes: pupils are equally round, sclera are clear/anicteric Neck is supple with no tracheal deviation Chest: about 4 cm subcutaneous mass that is lipomatous Respiratory: Normal respiratory excursion and pattern. Back: 2.5 cm lipomatous lesion near a previous incision site left lateral back Abdominal exam: benign Extremities: no clubbing, cyanosis or edema. Neuro: non focal Psych: normal mood Assessment IMPRESSION: subcutaneous lipomatous lesions which are causing patient pain and she requests removal PLAN: I have discussed the above with the patient. I have offered excision of these lipomas. I have explained the procedure to the patient. To be done with I have counseled the patient as to the risks of the procedure, including but not limited to: infection, bleeding, injury to any blood vessels/nerves, scar tissue, wound infections, complications of anesthesia, etc. - the patient understands. The patient wishes to proceed. I have answered all questions to the patient s satisfaction and the patient has no further questions. I have confirmed and edited as necessary, the PFSH and ROS obtained by others. Consultation requested by Isreal Faustin for an opinion regarding patient's subcutaneous lipomatous lesions. My final recommendations will be communicated back to the requesting physician by way of shared Medical record or letter to requesting physician via US mail. . Diagnoses: (D17.1) Lipoma of anterior chest wall (primary encounter diagnosis) (D17.1) Lipoma of back (R20.8) Dysesthesia Return to Clinic: The patient will be scheduled at [facility] for excision of these lipomas Medical Decision Making: Problems: Low: Stable chronic illness Risk: Low: Low risk from testing/treatment Medical Decision Making Level: 3 - Low Venessa Rosa MD documented in this encounterTri[facility] Nurse Note* Emily Blake RN - 07/07/2022 3:54 PM EDT REVIEW OF SYSTEMS: General: The patient denies fatigue, denies weight loss, denies weight gain, denies feeling hot, and denies feelings of cold. Eyes: The patient denies glaucoma, denies eye injury/surgery, wears glasses or contacts. Ear/Nose/Throat: The patient NOTES allergies, denies hayfever, denies ear infections, and denies bloody noses. Cardiovascular: The patient denies chest pain, denies heart disease, NOTES high blood pressure,denies cardiac stent, denies prior heart attack, denies irregular heart beat, NOTES high cholesterol, denies poor circulation, denies heart failure, other cardiac issues, denies claudication, denies cold feet, denies peripheral arterial stent. Respiratory: The patient denies tuberculosis, NOTES pneumonia, denies frequent cough, denies pulmonary embolism, denies shortness of breath, and denies coughing up blood. Gastrointestinal: The patient denies difficulty swallowing, NOTES acid reflux, denies ulcers, denies vomiting, denies jaundice/hepatitis, NOTES gallbladder problems, denies black or tarry stools, denies hemorrhoids, denies bleeding from rectum, denies diverticulitis, denies constipation, denies diarrhea, denies loss of stool control, and denies hernias. Kidney/Bladder: The patient NOTES kidney stones, denies urine infections, and denies bloody urine. Skin: The patient denies a history of skin cancer, denies bleeding/changing moles, and denies a history of skin rash. Neurologic: The patient denies a history of epilepsy/convulsions, denies headaches, denies head/spinal injuries, and denies stroke/TIA. Psychiatric: The patient denies psychiatric medications, denies depression, and denies voices, denies substance abuse. Endocrine: The patient denies thyroid disorders, denies diabetes, and denies hormonal problems. Hematologic: The patient denies a history of bruising, denies bleeding, and denies anemia, denies blood clots. Infections: The patient NOTES a history of measles and mumps, denies rheumatic fever, and denies sexually transmitted diseases. Musculoskeletal: The patient denies back pain/injury, NOTES back problems, NOTES sciatica, denies knee/foot trouble, NOTES arthritis, or denies gout. When was patient's last Mammogram screening? 2020 Last Colonoscopy: 2015 Emily Blake RN documented in this encounterTri[facility]08-29-[facility]22 History of Present illness Narrative* Sierra Morrow, RT(R) - 07/07/2022 2:20 PM EDT Radiology Service Progress Note PATIENT NAME: Terri Burciaga DATE OF SERVICE: July 07, 2022 TIME: 2:18 PM PATIENT IDENTITY VERIFICATION COMPLETED USING TWO (2) IDENTIFIERS: Name and Date of confirmedby patient verbally. FALL SCREENING: Has the patient had 2 falls in the last year or 1 fall with injury or currently using an Ambulatory Assistive Device (Walker, Cane, Wheelchair, Crutches, etc.)? No PATIENT GENDER DATA: Male PATIENT RELEVANT IMPLANT DATA REVIEWED: Not Applicable RADIOLOGY DEPARTMENT: General X-ray: Exam(s) Completed: Upper Extremity X- Ray(s): Fingers/Thumb, bilateral PERIPHERAL IV DATA: Not applicable SIGNED BY: RT Luann(R) July 07, 2022 2:18 PM documented in this encounterTrihealth [facility]08-29-2022 Miscellaneous Notes* Telephone Encounter - Juliann Dietrich Ma - 07/07/2022 11:00 AM EDT Patient was made aware of the results. Patient verbalizes understanding. Transferred to transplant nurse. Juliann Dietrich Ma * Telephone Encounter - Luc Faustin PA-C - 07/04/2022 5:07 PM EDT Please call and advise lab results indicate antibodies suggesting Sjoegren's syndrome. I would recommend checking additional labs to determine further determine risks Recommend consult rheumatology to determine diagnosis and recommend treatment. Telephone on 07/04/22 C3 COMPLEMENT BLD C4 COMPLEMENT BLD PROTEIN ELECTROPHORESIS SERUM W/INTERP CRYOGLOBULIN BL CK CREATINE KINASE TSH BLD VITAMIN B12 BLOOD CONSULT TO RHEUM/IMMUN DISEASE ThanksIsreal PA-C . documented in this encounterTrihealth [facility]08-26-2022 Miscellaneous Notes* Telephone Encounter - Juliann Dietrich Ma - 07/04/2022 2:46 PM EDT Patient was made aware of the results. Patient verbalizes understanding. Juliann Dietrich Ma * Telephone Encounter - Juliann Dietrich Ma - 07/04/2022 2:30 PM EDT ----- Message from Luc Faustin PA-C sent at 07/03/2022 9:27 PM EDT ----- Please advise CHINMAY is positive at 1:160 which is borderline Negative for rheumatoid, gout, Lyme disease. CRP is just mildly elevated at 1.3, sed rate at 41: Mild to moderate inflammation. More specific checks will take longer. I will keep her updated. Thanks, Isreal Faustin PA-C documented in this encounterTrihealth [facility]08-23-2022 Instructions* Patient Instructions* Luc Faustin PA-C - 07/01/2022 3:57 PM EDT From Up-To-Date Dietary supplements that may be of benefit - There are several dietary supplements that may have a beneficial role in lipid management, including omega-3 fatty acids, red yeast rice, and polyphenols.These supplements would ideally be used in conjunction with a dietary pattern known to improve lipids but may be added to a regular diet. [place]-3 fatty acids - Consumption of omega-3 fatty acids can reduce triglycerides but may also affect (raise or lower) cholesterol levels. In particular, omega-3 fatty acids may increase total cholesterol and LDL cholesterol, particularly among those with elevated triglycerides [67,68]. Dose, source (food versus supplement), and composition of the omega-3 fatty acid (eicosapentaenoic acid [EPA] alone or EPA plus docosahexaenoic acids [DHA]) can markedly modify lipid responses. Rich food sourcesof omega-3 fatty acids include fatty fish (especially salmon, bland, mackerel, and trout) and fish oil and plant products such as flaxseed, paco seeds, canola oil, soybean oil, and some nuts. (See Dietary fat, section on 'Polyunsaturated fatty acids' and Fish oil: Physiologic effects and administration, section on 'System effects' and Hypertriglyceridemia, section on 'Marine omega-3 fattyacids'.) There is high-quality evidence supporting the reduction in triglycerides from many omega-3 fatty acid-containing products [57,69-71]. As an example: In a meta-analysis of 55 trials, each 1 g/day increase in EPA+DHA reduced triglycerides by 5.9 mg/dL [72]. The effect was stronger when baseline triglyceride levels were higher; above the median triglyceride level of 83 mg/dL, each 1 g/day EPA+DHA reduced triglycerides by 8.4 mg/dL. In addition, omega-3 fatty acids may also affect LDL and HDL cholesterol levels, although the results are mixed and dependent upon the source and composition of the omega-3 fatty acid consumed. As examples: In a meta-analysis including seven trials and 662 participants, krill oil supplementation (1 to 4 g/day for 24 weeks) reduced LDL cholesterol (-15.5 mg/dL, 95% CI -28.4 to -2.6 mg/dL) and triglycerides (-14.0 mg/dL, 95% CI -21.4 to -6.7 mg/dL) [73]. In addition, plasma concentrations of HDL cholesterol were increased (6.6 mg/dL, 95% CI 2.3 to 11.0 mg/dL). In a meta-analyses including 28 trials, the consumption of flaxseeds (whole, ground, or defatted, 20 to 50 g/day) reduced total cholesterol (-7.3 mg/dL; 95% CI -11.2 to -3.5 mg/dL) and LDL cholesterol (-6.2 mg/dL; 95% CI -9.7 to -2.3 md/dL); there was no effect on triglycerides or HDL cholesterol [74]. However, the consumption of flaxseed oil had no effect on serum lipids [74]. In some patients, however, DHA modestly raises low-density LDL cholesterol (by 3 to 5 percent), which may be due to an increase in the proportion of large fluffy LDL cholesterol particles and reductions in small, dense LDL cholesterol particles [75-77]. The clinical significance of this modest LDL cholesterol increase and change in particle size in relation to the change in total LDL particle concentration is unclear [78]. While an increase in overall LDL particle size has been reported with omega-3 fatty acids [79-81], not all trials support these results [82]. Since many omega-3 preparations lower plasma triglyceride concentrations, which is a determinant ofsmall dense LDL particles, it is also possible that these can decrease the concentration of small LDL particles. Support for this hypothesis comes from the observed reduction of cholesteryl quentin transfer activity following fish oil therapy [83]. ?Red yeast rice - Red yeast rice is a fermented rice product, most often taken as a supplement, which can improve serum cholesterol [84]. It contains varying amounts of a family of naturally occurring substances called monacolins that have HMG CoA reductase inhibitor (statin) activity [85]. (See Statins: Actions, side effects, and administration.) In addition, other active ingredients in red yeast rice that may affect cholesterol lowering include sterols (beta-sitosterol, campesterol, stigmasterol, sapogenin), isoflavones, and monounsaturated fatty acids [86]. Although red yeast rice is effective in lipid lowering, due to the variability in potency and possible adulteration of commercially available products, we strongly prefer that our patients take a prescription statin medication rather than these supplements. Administrative Associate studies of the efficacy of red yeast rice in lowering total cholesterol and LDL cholesterol include [86-88]: In a trial including 83 patients with hyperlipidemia, red yeast rice supplements (2.4 g/day) or placebo were given for eight weeks; all trial participants followed a cholesterol-lowering diet ([place] [employer] Step 1 diet) [86]. Red yeast rice supplements lowered total cholesterol (208 versus 251 mg/dL) and LDL cholesterol (135 versus 175 mg/dL) compared with placebo. HDL cholesterol levels were unchanged. One of the monacolins in the red yeast rice extract used in this study, monacolin K, is the active ingredient in the HMG CoA reductase inhibitor lovastatin. The daily monacolin K content of red yeastrice was 0.2 percent of the total product, which at a total dose of red yeast rice of 2.4 g/day acosta slates into an equivalent daily lovastatin dose of 4.8 mg. This is lower than the average 20 to 40 mg dose of lovastatin typically used, suggesting that other active ingredients in red yeast rice probably also contribute to its cholesterol-lowering activity [85]. In a trial including patients with dyslipidemia who had previously discontinued statin therapy due to myalgia, treatment with red yeast rice (1800 mg twice daily for 24 weeks) was compared with placebo; all patients participated in similar lifestyle modifications [88]. Red yeast rice supplementation was well tolerated while achieving greater reductions in both total cholesterol (-15 versus -5 percent) and LDL cholesterol (-21 versus -9 percent) compared with placebo. There was no change in HDL cholesterol. Due to the lack of standardization, there is substantial variability across commercially available red yeast rice preparations [89-91]; this may affect individual clinical results. As an example, in a study that evaluated the content of 12 preparations of commercially available red yeast rice, the total monacolin content ranged from 0.31 to 11.15 mg/capsule, and the monacolin K (lovastatin) content ranged from 0.10 to 10.09 mg/capsule. Furthermore, four of the preparations had elevated levels of citrinin, a potentially nephrotoxic mycotoxin [90]. Finally, while short-term studies (up to four months) have found red yeast rice to be safe, no long-term studies have been performed [85]. (See Overview of herbal medicine and dietary supplements, section on 'Standardization' and Overview of herbal medicine and dietary supplements, section on 'Purity and Adulteration'.) Berberine - Berberine is an alkaloid found in the root, fruit, or bark of a number of plants such as goldenseal, [place] grape, barberry, and tree turmeric. It reduces serum cholesterol levels throughseveral mechanisms, including reduction of intestinal cholesterol absorption, enhanced fecal cholesterol excretion [92,93], inhibition of proprotein convertase subtilisin kexin 9 (PCSK9) [94], and upregulation of LDL receptors [95]. In a meta-analysis including six trials and 229 patients with hyperlipidemia, the addition of berberine supplements (between 900 to 1500 mg/day) improved total cholesterol (- 25.5 mg/dL; 95% CI -39.4 to -12 mg/dL), LDL cholesterol (-25.1 mg/dL; 95% CI -29 to -21.7 mg/dL), and triglycerides (-34.5 mg/dL; 95% CI -52.3 to -16.8) compared with placebo or lifestyle modification [96]. SUPPLEMENTS THAT WE DO NOT RECOMMEND - A variety of products including plant- based based extracts and mineral supplements have been promoted for their overall health benefits and lipid-lowering effects. However, based upon the available evidence, we do not support the use of the following products for lipid management: -tea and tea catechins - Consumption of tea, tea extracts, and green tea catechin supplements may have a beneficial effect on lipids, although they are not recommended for use in lipid management. [place] 2013 meta-analysis of 11 randomized trials, consumption of green or black tea reduced low-density lipoprotein (LDL) cholesterol but had no effect on high-density lipoprotein (HDL) cholesterol [97].Further, in a year-long randomized trial of more than 900 healthy postmenopausal women, green tea catechin supplements (1315 mg catechins/day) reduced total and LDL cholesterol, had no effect on HDL c holesterol, but increased triglycerides [98]. These findings are consistent with those of other trials and meta-analyses [99-101]. However, because of a number of reported cases of severe hepatotoxicity associated with use of green tea infusions or supplements, they are not recommended for use in lipid management [102]. -Selenium - Selenium supplementation has no effect on serum lipids [103]. -Calcium - Results of randomized controlled trials of calcium supplementation are mixed, but there appears to be no beneficial effect of calcium supplementation on serum lipids [104,105]. -Garlic - Although earlier, smaller trials suggested a benefit of garlic supplementation [106-110],a subsequent larger trial failed to demonstrate improvement in lipids with use of any of three different garlic preparations (raw, powdered, or aged) [111]. -Policosanol - Policosanol is a drug extracted from sugar cane wax that contains a number of aliphatic alcohols. While previous studied suggested a reduction in serum lipids with policosanol, in a randomized trial there was no improvement in any measurement of serum lipids [112]. -Coconut oil - Dietary supplementation with coconut oil is not associated with improvements in serum lipids [113,114]. -Coconut water - Little information is available about coconut water with respect to lipid lowering. In terms of dietary components, it contains no measurable saturated fat, 3.7 g carbohydrates, and 1.1 g fiber per 100 g [113]. -Bergamot - Bergamot is the common name of the fruit [place] bergamia Risso. Improvements in serum lipids have been reported in small, uncontrolled trials of patients with metabolic syndrome, nonalcoholic fatty liver disease [115] and in hyperlipidemic patients resistant to statin treatment [116]. However, high- quality data on the effects of bergamot are lacking. -Resveratrol - Although lipid lowering with resveratrol supplements has been described in experimental models and in cell culture studies, the evidence is less conclusive in randomized human trials. As an example, in a 2013 meta- analysis including seven randomized trials and almost 300 subjects, nolipid parameters were altered with resveratrol supplementation [117]. -Soy isoflavones - Soy isoflavone supplements do not appear to be of benefit [39] and should not betaken with a goal of improving lipids. documented in this encounterTrihealth [facility] History of Present illness Narrative* Luc Faustin PA-C - 07/01/2022 3:20 PM EDT 76 year old female with c/o fell three weeks at [employer] going up steps. Shoe caught on top step and fell onto knees. Able to walk after. Having pain in both knees, left > right. Taking Tylenol ES 2 tabs prior to bed: it's okay for pain. Has pain med from lung surgery but doesn't like to take it. All her joints are still and painful: Neck, shoulders, elbows, wrists, hips, knees, ankles, hands, particularly her right thumb CMC joint No FH RA or lupus Covid 19 2018 Lipoma on left chest wall/ back: can't get a bra on. BP controlled. Compliant with meds: Clonidine 0.1 mg daily at bedtime Losartan 100 mg daily Hydrochlorothiazide 12.5 mg daily Potassium chloride ER 20 mEq daily. No issues with chest pain, dizziness, lightheadedness, cough, rapid heart rate, palpitations, leg swelling, falls. Component Latest Ref Rng & Units 07/26/2021 08/21/2021 10/16/2021 05/08/2022 WBC 3.70 - 11.00 k/uL 4.32 6.22 5.94 RBC 3.90 - 5.20 m/uL 5.08 5.29 (H) 5.19 Hemoglobin 11.5 - 15.5 g/dL 14.3 14.6 14.6 Hematocrit 36.0 - 46.0 % 44.3 46.9 (H) 47.2 (H) MCV 80.0 - 100.0 fL 87.2 88.7 90.9 MCH 26.0 - 34.0 pg 28.1 27.6 28.1 MCHC 30.5 - 36.0 g/dL 32.3 31.1 30.9 RDW-CV 11.5 - 15.0 % 13.2 13.7 12.8 Platelet Count 150 - 400 k/uL 207 214 206 MPV 9.0 - 12.7 fL 10.7 10.7 10.7 Neut% % 56.9 57.8 54.9 Abs Neut (ANC) 1.45 - 7.50 k/uL 2.45 3.58 3.26 Lymph% % 28.5 28.8 31.0 Abs Lymph 1.00 - 4.00 k/uL 1.23 1.79 1.84 Harlan% % 12.7 11.4 11.8 Abs Harlan <0.87 k/uL 0.55 0.71 0.70 Eosin% % 1.4 1.4 1.5 Abs Eosin <0.46 k/uL 0.06 0.09 0.09 Baso% % 0.5 0.6 0.5 Abs Baso <0.11 k/uL <0.03 0.04 0.03 Immature Gran % % 0.3 IMMATURE GRANS (ABS) <0.10 k/uL <0.03 NRBC /100 WBC 0.0 Absolute nRBC <0.01 k/uL <0.01 <0.01 <0.01 DTYPE Auto Nucleated Reds 0 /100 WBC 0.0 0.0 Diff Type Auto Diff Auto Diff Protein, Total 6.3 - 8.0 g/dL 7.5 6.8 Albumin 3.9 - 4.9 g/dL 4.2 3.8 (L) Calcium 8.5 - 10.2 mg/dL 10.2 9.5 Bilirubin, Total 0.2 - 1.3 mg/dL 0.3 0.6 Alkaline Phosphatase 34 - 123 U/L 98 84 AST 13 - 35 U/L 21 21 Glucose 74 - 99 mg/dL 115 (H) 99 BUN 7 - 21 mg/dL 21 14 Creatinine 0.58 - 0.96 mg/dL 1.25 (H) 1.09 (H) Sodium 136 - 144 mmol/L 137 139 Potassium 3.7 - 5.1 mmol/L 4.2 3.8 Chloride 97 - 105 mmol/L 100 103 CO2 22 - 30 mmol/L 26 24 Anion Gap 9 - 18 mmol/L 11 12 ALT 7 - 38 U/L 28 18 eGFR- 51 59 eGFR-All Other Races . 42 49 Reflux is controlled on pantoprazole. No issues with dysphagia, irregular bowel, black or tarry stools.. 12/15/2018 magnesium 2.3. No lipid medications Takes supplements: Garlic, pyridoxine, zinc, biotin Last lipid: Component Latest Ref Rng & Units 08/21/2021 05/08/2022 Cholesterol, Total <200 mg/dL 209 (H) 209 (H) Triglyceride <150 mg/dL 101 104 HDL Cholesterol >39 mg/dL 45 50 LDL Cholesterol <100 mg/dL 144 (H) 138 (H) Non HDL Cholesterol <130 mg/dL 164 (H) 159 (H) Fasting Time hrs 12 12 VLDL Cholesterol <30 mg/dL 20 21 TC:HDL Ratio <5.10 4.64 4.18 LDL:HDL Ratio <2.54 3.20 (H) 2.76 (H) Left lung nodule: 07/26/2021 CT demonstrated smaller size, comparisons: 05/28/2021, 12/28/2020, 11/30/2020 12/28/2020 left lung bx: path:Left lung, lower lobe, wedge excision granulomatous inflammation with necrosis 12/25/2020 PET: minmally hypermetabolic with low FDG uptake Thyroid Nodule: 03/12/2021 FNA: benign follicular cells. HISTORIES FAMILY HISTORY Problem Relation Age of Onset Hypertension Mother other (macular degeneration) Mother Coronary Artery Disease Father Stroke Father other (CABG) Father Coronary Artery Disease Sister Coronary Artery Disease Brother Ischemic Heart Disease Paternal Grandfather other (Peripheral Vascular Disease) Sister Hypertension Sister Hypertension Sister Hypertension Brother Hypertension Son PAST MEDICAL HISTORY Diagnosis Date Arrhythmia Benign neoplasm of colon Calculus of kidney Chest pain, unspecified non cardiac Esophageal reflux Esophagitis, unspecified Granulomatous disease (HCC) History of recurrent UTIs HYPERLIPIDEMIA NEC/NOS 03/16/2009 HYPERTENSION NOS 03/10/2008 Mental disorder FRIEDA on CPAP Osteopenia BMD 12/12/2011 PAST SURGICAL HISTORY Procedure Laterality Date COLONOSCOPY COLONOSCOPY FLX DX W/COLLJ SPEC WHEN PFRMD 01/11/2016 Colonoscopy COLSC FLX W/RMVL OF TUMOR POLYP LESION SNARE TQ 02/05/2012 repeat 5 years EGD 02/05/2012 ESOPHAGOGASTRODUODENOSCOPY TRANSORAL DIAGNOSTIC 10/16/2008 EGD ESOPHAGOGASTRODUODENOSCOPY TRANSORAL DIAGNOSTIC 01/11/2016 EGD LYSIS OF ADHESIONS SALPINX/OVARY x6 OOPHORECTOMY, PART/TOTAL UNILAT/BILAT bilateral salpingectomy and left oophorectomy REMV LUNG,WEDGE RESECTION Left 07/30/2021 VATS wedge resection of left lower lobe wedge TOTAL ABDOMINAL HYSTERECT W/WO RMVL TUBE OVARY 11/09/1969 endometriosis, change in ovary, right oophorectomy Social History Tobacco Use Smoking status: Former Packs/day: 1.50 Years: 20.00 Pack years: 30.00 Types: Cigarettes Quit date: 11/09/1980 Years since quittin.6 Smokeless tobacco: Never Tobacco comments: up to 3 PPD Substance Use Topics Alcohol use: No Drug use: No ACTIVE PROBLEM LIST Lipoma of Unspecified Site Peripheral Vertigo, Unspecified Essential Hypertension Esophageal Reflux Mixed Hyperlipidemia Depression Nocturnal Muscle Cramps Obesity Osteopenia History of Colon Polyps Dry Eye Syndrome Nuclear Sclerosis of Both Eyes Blepharitis of Both Upper and Lower Eyelid of Right Eye Prediabetes 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 Vitreous Floaters of Both Eyes Stage 3b Chronic Kidney Disease (Hcc) Meibomian Gland Dysfunction (Mgd) of Upper and Lower Lids of Both Eyes Punctate Keratitis, Bilateral Frieda (Obstructive Sleep Apnea) Nodule of Left Lung Gallstones Delayed Sleep Phase Syndrome Pneumothorax of Left Lung After Biopsy Obesity, Class II, Bmi 35-39.9 Atrial Tachycardia (Hcc) Mitral Valve Disease Lung Nodule Acute Post-Operative Pain Anxiety Thyroid Nodule Granulomatous Disease (Hcc) Feeling of Incomplete Bladder Emptying H/O Senile Atrophic Vaginitis Current Outpatient Medications Medication Sig Dispense Refill cloNIDine HCl (CATAPRES) 0.1 mg tablet Take 1 tablet by mouth daily at bedtime. 90 tablet 3 losartan (COZAAR) 100 mg tablet Take 1 tablet by mouth once daily. 90 tablet 3 potassium chloride ER (K-DUR, KLOR-CON) 20 mEq tablet Take 1 tablet by mouth twice daily. 180 tablet 3 hydroCHLOROthiazide (HYDRODIURIL, ESIDRIX) 12.5 mg capsule Take 1 capsule by mouth once daily. 90 capsule 3 Vitamin E 1 mg, Vitamin A 1 mg, Collagen Support Vaginal Cream (CPD) Apply 1 g to affected area three times a week. 20 g 3 acetaminophen (TYLENOL) 500 mg tablet Take 2 tablets by mouth every 6 hours as needed for pain. pyridoxine, vitamin B6, (VITAMIN B-6) 100 mg tablet Take 100 mg by mouth once daily. Magnesium 200 mg tab Take 1 tablet by mouth once daily. Garlic 100 mg tab Take 1 tablet by mouth once daily. Zinc 50 mg tab Take by mouth. Calcium magnesium esomeprazole (NEXIUM) 20 mg capsule Take 1 capsule by mouth DAILY (6 AM). BIOTIN ORAL Take by mouth. diphenhydrAMINE HCl (CHILDREN'S BENADRYL ALLERGY) 12.5 mg chewable tablet Take 12.5 mg by mouth at bedtime as needed. Cholecalciferol, Vitamin D3, (VITAMIN D) 1,000 unit cap Take 1,000 Units by mouth once daily. No current facility-administered medications for this visit. COVID-19 VACCINE(1) Never done SHINGRIX VACCINE(2 of 3) due on 07/09/2016 DTAP,TDAP,TD(2 - Td or Tdap) due on 04/23/2017 ADVANCE DIRECTIVE DISCUSSION Never done EXAM: BP 130/78 Pulse 90 Resp 16 Wt 88 kg (194 lb) SpO2 97% BMI 41.25 kg/m Pleasant well-appearing overweight adult female in no acute distress. Alert and oriented all spheres. Normal affect and cognition. Speech normal. No deficits to learning or comprehension. Skin warm, dry, pink to lips and nailbeds. Normal turgor. Respirations regular and unlabored. HEENT: NCAT. No scleral icterus or conjunctival injection. TM's clear. Nose and oropharynx free from injection or lesion. Oral membranes moist and pink. No cervical lymph nodes. Thyroid non-tender, no masses, or enlargement. Carotids pulses 2+/4+ without bruits. Neck veins are flat. Chest is normal shape. Lungs are clear to all alcantar with good air exchange through out. HRRR without murmur or gallop. No lifts, heaves, or rubs. Extrem: no clubbing or cyanosis. Edema: none. Extremities are warm and pink with prompt capillary refill. Fingers, wrists, elbows, shoulders, hips knees, ankles, toes all examined and palpated: Significantarthritic change in right thumb CMC joint with restricted range of motion, mild on the left. Otherwise fingers have no evidence of swelling or significant deformity and are nontender. She is nontender and shows no significant deformity or redness or swelling on palpation over all of her joints including wrists, elbows, shoulders, hips, knees, ankles, toes. She does have significant tenderness in multiple myofascial areas including lateral neck, upper trapezius, bilateral forearms, mid and lower back, bilateral thighs, bilateral calves. ASSESSMENT/PLAN: 1. Atrial tachycardia (HCC) - ICD9: 427.89, ICD10: I47.1 (primary diagnosis) Controlled, rare episodes which are mild. 2. Mitral valve disease - ICD9: 394.9, ICD10: I05.9 01/21/2021 echo showed no significant valvular disease. Ejection fraction 66 5% with grade 1 ventricular diastolic dysfunction. No significant change from 2015. 3. Essential hypertension with goal blood pressure less than 140/90 - ICD9: 401.9, ICD10: I10 - good control - Continue current medication(s) - Recommended regular aerobic exercise. - Recommend home blood pressure monitoring, to bring results in on next visit - Goal of BP <130/80 4. Mixed hyperlipidemia - ICD9: 272.2, ICD10: E78.2 - porr control - Encouraged following a low fat, low cholesterol diet. - Discussed the benefits of regular aerobic exercise and weight loss. - Encouraged following a low carbohydrate, healthy oil intake diet. 5. FRIEDA (obstructive sleep apnea) - ICD9: 327.23, ICD10: G47.33 compliant 6. Nodule of left lung - ICD9: 793.11, ICD10: R91.1 Decreasing size, pth negative for cancer 7. Pneumothorax of left lung after biopsy - ICD9: 512.1, ICD10: J95.811 resolved 8. Gastroesophageal reflux disease, unspecified whether esophagitis present - ICD9: 530.81, ICD10: K21.9 - Discussed lifestyle modifications including losing weight, limiting caffeine, no meals three hours before sleep, and head of bed elevation Continue supplement which seem to help 9. Stage 3b chronic kidney disease (HCC) - ICD9: 585.3, ICD10: N18.32 stable 10. Thyroid nodule - ICD9: 241.0, ICD10: E04.1 FNA benign 11. Encounter for immunization - ICD9: V03.89, ICD10: Z23 12. Polyarthralgia - ICD9: 719.49, ICD10: M25.50 Suspect OA, more consistent with fibromyalgia Trial Flexeril 5mg three times a day as needed: reviewed warnings, common side effects, administration, caution with drowsiness, should not mix with ETOH. - C-REACTIVE PROTEIN (CRP) - SED RATE WESTERGREN - LYME AB LATE >30 DAYS SYMPTOMS - RHEUMATOID FACTOR BL - CHINMAY BY IFA WITH REFLEX - URIC ACID BLOOD 13. Lipoma of back - ICD9: 214.8, ICD10: D17.1 Bothersome for clothing irritaiton - CONSULT TO GENERAL SURGERY 14. Arthritis of carpometacarpal (CMC) joint of both thumbs - ICD9: 716.94, ICD10: M18.0 - XR DIGIT GENERAL 3V FRONTAL/LAT/OBL LEFT - XR DIGIT GENERAL 3V FRONTAL/LAT/OBL RIGHT F/u 4 weeks to review progress and testing. Luc Faustin PA-C documented in this encounterTri[facility]07[facility] History of Present illness Narrative* Effie Gimenez RN - 05/27/2022 6:11 PM EDT [facility] Enrollment Provider Action/FYI: CDM - CKD Enrollment Outreach Call #1 Patient declined. Patient states still works, no free time and is able to get appt in PCP when needed. Patient referred by: [facility] Thania Contact made with patient: Yes - Patient identified by name and . Discussed care with patient Wendi this is Effie Gimenez RN and I am calling from Andre Santana MD office at the [facility]. I am a RN Visual Merchandising Manager with our [facility] program. Andre Santana MD wanted me to reach out to help you manage your health at home. Our goal is to keep you well at home. We want to help you manage your chronic disease by providing a safety net of resources around you, getting you the care you need in a timely manner, and hopefully keep you out of the ED and hospital. I will send you a few questions once a week through your [employer] account. It will automatically show up for you to complete. There are simple questions that will help us identify if you have any concerns or symptoms and I will call you to help get what you need. We will be able to connect you, review your symptoms, do an on demand visit, or communicate with Andre Santana MD if needed. I am going to sign you up for the program now. Enrollment Questions: Let's get you enrolled in the program. No, reason: Other: still works no free time Closing: PATIENT DECLINES - Thank you for your time today. I understand you are not interested participatingin our program at this time. I will be sure to let your primary care doctor know we discussed your option to enroll in the program and that, for now, you have chosen to opt-out. If you decide at any time that you would like to be involved in the program, please let your primary care doctor know, and he/she can refer you back to our program. documented in this encounterTrihealth [facility]07-[facility]22 Miscellaneous Notes* Telephone Encounter - Elisa Victoria MA - 05/16/2022 10:38 AM EDT Patient notified of results. Elisa Victoria MA * Telephone Encounter - Elisa Victoria MA - 05/16/2022 10:37 AM EDT ----- Message from Andre Santana MD sent at 05/15/2022 5:13 PM EDT ----- Labs are stable. Andre Santana MD documented in this encounterTrihealth [facility]07-07-2022 Miscellaneous Notes* Telephone Encounter - Shanel Aguilar - 05/15/2022 4:24 PM EDT Patient has been identified by name and date of : Yes Last office visit in this department: 10/24/2021 RX INSTRUCTIONS: Patient aware RX will be sent to pharmacy. No need to notify patient. Patient low on potassuim. she has been taking one daily for the last month Patient phones requesting refills as follows: Pending Prescriptions Disp Refills CLONIDINE HCL 0.1 MG TABLET 90 tablet 3 Sig: Take 1 tablet by mouth daily at bedtime. OLIVIER: No LOSARTAN 100 MG TABLET 90 tablet 3 Sig: Take 1 tablet by mouth once daily. OLIVIER: No POTASSIUM CHLORIDE ER 20 MEQ TABLET,EXTENDED RELEASE(PART/CRYST) 180 tablet 3 Sig: Take 1 tablet by mouth twice daily. OLIVIER: No HYDROCHLOROTHIAZIDE 12.5 MG CAPSULE 90 capsule 3 Sig: Take 1 capsule by mouth once daily. OLIVIER: No Please review and advise. Shanel Patel Pss documented in this encounterTrihealth [facility]06-29-2022 Miscellaneous Notes* Telephone Encounter - Shirin Draper APRN.CNP - 05/07/2022 7:51 PM EDT Please let patient know that her renal ultrasound looked good. She is emptying her bladder and kidneys look good. documented in this encounterTrihealth [facility]06-23-[facility]22 History of Present illness Narrative* Terri Radha, RT(R) - 05/01/2022 2:30 PM EDT Radiology Service Progress Note PATIENT NAME: Terri Burciaga DATE OF SERVICE: May 01, 2022 TIME: 3:21 PM PATIENT IDENTITY VERIFICATION COMPLETED USING TWO (2) IDENTIFIERS: Name and Date of confirmedby patient verbally. FALL SCREENING: Has the patient had 2 falls in the last year or 1 fall with injury or currently using an Ambulatory Assistive Device (Walker, Cane, Wheelchair, Crutches, etc.)? No PATIENT GENDER DATA: Female. status: : No status: N/A PATIENT RELEVANT IMPLANT DATA REVIEWED: Not Applicable RADIOLOGY DEPARTMENT: Ultrasound PERIPHERAL IV DATA: Not applicable SIGNED BY: Terri Garcia RDMS,RVT May 01, 2022 3:21 PM documented in this encounterTrihealth M[facility]06-21-2022 Miscellaneous Notes* Telephone Encounter - Sandy Hernandez LPN - 04/29/2022 4:05 PM EDT Patient notified. Verbalized understanding. * Telephone Encounter - Andre Santana MD - 04/29/2022 3:59 PM EDT Orders placed. * Telephone Encounter - Coni Mcdaniel RN - 04/29/2022 3:39 PM EDT Patient calls and states that she has appointment on 05/15/2022. Patient asking if provider wants her to get labs done prior to appointment? Please review and advise, Coni Mcdaniel RN documented in this encounterTrihealth M[facility]06-14-[facility]22 History of Present illness Narrative* Shirin Draper APRN.CIRCULAR RIPSAW OPERATOR - 04/22/2022 3:23 PM EDT NEW PATIENT OFFICE VISIT HISTORY OF PRESENT ILLNESS Terri Burciaga is a 76 year old female who presents today as new patient for bladder pressure and feeling of incomplete emptying. Patient reports that she has felt this since she had lung surgery last fall after they took the indwelling catheter out. UUI: rare NADEGE: none Nocturia: 0 times per night No bulge or prolapse. Hysterectomy 1969 She reports having chronic UTI before hyster but has not had UTI in many years She has h/o kidney stones last stone 30 years ago. One surgery She has vaginal dryness using replenish she does not wish to use estrogen will try non-hormonal vaginal cream. She denies gross hematuria. No dysuria. No fever or chills. UA is negative today PVR 2cc today Get renal ultrasound Follow up 3 months LAB RESULTS Creatinine Date Value Ref Range Status 10/16/2021 1.05 (H) 0.58 - 0.96 mg/dL Final No results found for: PSA Color (no units) Date Value 07/26/2021 Light Yellow Clarity (no units) Date Value 07/26/2021 Slightly Cloudy Glucose, Urine (mg/dL) Date Value 07/26/2021 Negative Bilirubin, Urine (no units) Date Value 07/26/2021 Negative Ketones, Urine (no units) Date Value 07/26/2021 Negative Specific [place], Ur (no units) Date Value 07/26/2021 1.021 Hemoglobin/Blood,Ur ( ) Date Value 07/26/2021 Negative pH, Urine (no units) Date Value 07/26/2021 6.0 Protein, Urine (no units) Date Value 07/26/2021 Negative Urobilinogen (E.U./dL) Date Value 07/26/2021 Negative Nitrites (no units) Date Value 07/26/2021 Negative Leukest (no units) Date Value 07/26/2021 Negative MEDICATIONS: losartan (COZAAR) 100 mg tablet Take 1 tablet by mouth once daily. hydroCHLOROthiazide 12.5 mg capsule Take 1 capsule by mouth once daily. cloNIDine HCl (CATAPRES) 0.1 mg tablet Take 1 tablet by mouth daily at bedtime. acetaminophen (TYLENOL) 500 mg tablet Take 2 tablets by mouth every 6 hours as needed for pain. potassium chloride ER (K-DUR, KLOR-CON) 20 mEq tablet Take 1 tablet by mouth twice daily. pyridoxine, vitamin B6, (VITAMIN B-6) 100 mg tablet Take 100 mg by mouth once daily. Magnesium 200 mg tab Take 1 tablet by mouth once daily. Garlic 100 mg tab Take 1 tablet by mouth once daily. Zinc 50 mg tab Take by mouth. Calcium magnesium esomeprazole (NEXIUM) 20 mg capsule Take 1 capsule by mouth DAILY (6 AM). BIOTIN ORAL Take by mouth. diphenhydrAMINE HCl (CHILDREN'S BENADRYL ALLERGY) 12.5 mg chewable tablet Take 12.5 mg by mouth at bedtime as needed. Cholecalciferol, Vitamin D3, (VITAMIN D) 1,000 unit cap Take 1,000 Units by mouth once daily. REVIEW OF SYSTEMS CONSTITUTIONAL: Patient reports no recent fever or weight loss CARDIOVASCULAR: No chest pain, palpitations or ankle edema. RESPIRATORY: No wheezing, frequent cough or shortness of breath GENITOURINARY: See HPI HISTORIES PAST MEDICAL HISTORY Diagnosis Date Arrhythmia Benign neoplasm of colon Calculus of kidney Chest pain, unspecified non cardiac Esophageal reflux Esophagitis, unspecified Granulomatous disease (HCC) History of recurrent UTIs HYPERLIPIDEMIA NEC/NOS 03/16/2009 HYPERTENSION NOS 03/10/2008 Mental disorder FRIEDA on CPAP Osteopenia BMD 12/12/2011 FAMILY HISTORY Problem Relation Age of Onset Hypertension Mother other (macular degeneration) Mother Coronary Artery Disease Father Stroke Father other (CABG) Father Coronary Artery Disease Sister Coronary Artery Disease Brother Ischemic Heart Disease Paternal Grandfather other (Peripheral Vascular Disease) Sister Hypertension Sister Hypertension Sister Hypertension Brother Hypertension Son PAST SURGICAL HISTORY Procedure Laterality Date COLONOSCOPY COLONOSCOPY FLX DX W/COLLJ SPEC WHEN PFRMD 01/11/2016 Colonoscopy COLSC FLX W/RMVL OF TUMOR POLYP LESION SNARE TQ 02/05/2012 repeat 5 years EGD 02/05/2012 ESOPHAGOGASTRODUODENOSCOPY TRANSORAL DIAGNOSTIC 10/16/2008 EGD ESOPHAGOGASTRODUODENOSCOPY TRANSORAL DIAGNOSTIC 01/11/2016 EGD LYSIS OF ADHESIONS SALPINX/OVARY x6 OOPHORECTOMY, PART/TOTAL UNILAT/BILAT bilateral salpingectomy and left oophorectomy REMV LUNG,WEDGE RESECTION Left 07/30/2021 VATS wedge resection of left lower lobe wedge TOTAL ABDOMINAL HYSTERECT W/WO RMVL TUBE OVARY 11/09/1969 endometriosis, change in ovary, right oophorectomy SOCIAL HISTORY Social History Tobacco Use Smoking status: Former Smoker Packs/day: 1.50 Years: 20.00 Pack years: 30.00 Types: Cigarettes Quit date: 11/09/1980 Years since quittin.4 Smokeless tobacco: Never Used Tobacco comment: up to 3 PPD Substance Use Topics Alcohol use: No Drug use: No PHYSICAL EXAMINATION General appearance: Well appearing, alert, in no acute distress, well-hydrated, well nourished.. BACK: no pain to palpation over spine or costovertebral angles. MUSCULOSKELETAL: Negative for joint pain or swelling. RESPIRATORY: Normal respiratory effort. SKIN: Normal color, no rash, no lesions.. : See HPI Medical Decision Making: Problems: Low: Stable chronic illness Data: Unique test(s) ordered: 1 Assessment requiring an independent historian(s) Risk: Minimal: Minimal risk from testing/treatment Moderate: Drug management Medical Decision Making Level: 3 - Low ASSESSMENT/PLAN: 1. Feeling of incomplete bladder emptying - ICD9: 788.21, ICD10: R39.14 (primary diagnosis) 2. H/O senile atrophic vaginitis - ICD9: V13.29, ICD10: Z87.42 - US KIDNEY/BLADDER - BLADDER SCAN - Non-hormonal vaginal support cream - Follow up 3 months in [place] Draper APRN.CIRCULAR RIPSAW OPERATOR documented in this encounter[facility] History of Present illness Narrative* Jacquie Evans MD - 02/25/2022 2:45 PM EDT Images from the original note were not included. . [facility] [place] Note Patient name: Terri Burciaga PCP: Andre Santana MD CC: Follow-up after surgical resection HPI: Terri Burciaga 76 year old female former 30 pack year smoker, quitting 40 years ago with PMH significant for FRIEDA, HTN, h/o COVID and lung nodule. Had 1.2 cm LLL lung nodule with slight increase in size, with subtle spiculations. PET scan showed low level activity. Had CT-guided biopsy that resulted in PTX and no diagnosis. Sequently underwent VATS surgical wedge resection showing necrotizinggranulomatous inflammation with negative fungal stains. She continues to have significant chest pain at her surgical site as well as in her left upper anterior chest. Chest pain has been unrelenting.Not positional in nature. Tends to worsen with activity. Postop chest x-ray has been unrevealing. He denies any wheezing, cough, sputum production or infectious symptoms. DATA: Imaging / Diagnostic Studies: DATE OF EXAM: Nov 15 2021 1:39PM [id number] - XR CHEST 2V FRONTAL/LAT / EXAMINATION: CHEST RADIOGRAPH (2 VIEW FRONTAL & LATERAL) CLINICAL HISTORY: Necrotizing granulomatous inflammation of lung (HCC) MQ: [id number] EXAM DATE/TIME: 11/15/2021 1:39 PM COMPARISON: PA and lateral CXR dated 10/16/2021 RESULT: Lines, tubes, and devices: None. Lungs and pleura: By history, status post VATS wedge resection of the left lower lobe. The lungs appear clear of focal consolidation or mass. No pleural effusion or pneumothorax is identified. Cardiomediastinal silhouette: Stable cardiomediastinal silhouette. The heart size and pulmonary vascular pattern are within normal limits. Bones and soft tissues: There are mild degenerative changes in the thoracic spine. A stable 10 mm sclerotic density in the proximal right humerus may be secondary to a bone island or possibly enchondroma. MPRESSION: No acute disease identified in the lungs or mediastinum. Little interval change since the exam dated 10/16/2021. I personally reviewed images and agree with the above assessment PAST MEDICAL HISTORY Diagnosis Date Arrhythmia Benign neoplasm of colon Calculus of kidney Chest pain, unspecified non cardiac Esophageal reflux Esophagitis, unspecified Granulomatous disease (HCC) History of recurrent UTIs HYPERLIPIDEMIA NEC/NOS 03/16/2009 HYPERTENSION NOS 03/10/2008 Mental disorder FRIEDA on CPAP Osteopenia BMD 12/12/2011 ALLERGIES Allergen Reactions Cigarette Smoke [Ot* Cough, Itching, Shortness of Breath Adhesive Tape (Deyanira* Itching Aleve [Naproxen Sod* GI Upset Ativan [Lorazepam] Other: See Comments depression Cats Lopressor [Metoprol* Mental Status Change Nickel Rash Norvasc [Amlodipine* Swelling Swelling to feet and ankles Sulfa (Sulfonamide * severe headache Vioxx [Rofecoxib] GI Upset losartan (COZAAR) 100 mg tablet Take 1 tablet by mouth once daily. hydroCHLOROthiazide 12.5 mg capsule Take 1 capsule by mouth once daily. cloNIDine HCl (CATAPRES) 0.1 mg tablet Take 1 tablet by mouth daily at bedtime. acetaminophen (TYLENOL) 500 mg tablet Take 2 tablets by mouth every 6 hours as needed for pain. potassium chloride ER (K-DUR, KLOR-CON) 20 mEq tablet Take 1 tablet by mouth twice daily. pyridoxine, vitamin B6, (VITAMIN B-6) 100 mg tablet Take 100 mg by mouth once daily. Magnesium 200 mg tab Take 1 tablet by mouth once daily. Garlic 100 mg tab Take 1 tablet by mouth once daily. Zinc 50 mg tab Take by mouth. Calcium magnesium esomeprazole (NEXIUM) 20 mg capsule Take 1 capsule by mouth DAILY (6 AM). BIOTIN ORAL Take by mouth. diphenhydrAMINE HCl (CHILDREN'S BENADRYL ALLERGY) 12.5 mg chewable tablet Take 12.5 mg by mouth at bedtime as needed. Cholecalciferol, Vitamin D3, (VITAMIN D) 1,000 unit cap Take 1,000 Units by mouth once daily. Social History Tobacco Use Smoking status: Former Smoker Packs/day: 1.50 Years: 20.00 Pack years: 30.00 Types: Cigarettes Quit date: 11/09/1980 Years since quittin.3 Smokeless tobacco: Never Used Tobacco comment: up to 3 PPD Substance Use Topics Alcohol use: No Drug use: No PMH, Social history, family history and surgical history reviewed and updated in EMR REVIEW OF SYSTEMS: CONSTITUTIONAL: No fevers, chills, nightsweats, unintended weight loss EYES: No diplopia or blurry vision. CARDIOVASCULAR: No dyspnea, palpitations, orthopnea, PND, edema. PULM: See HPI INTEGUMENTARY: Subcutaneous nodules PHYSICAL EXAMINATION: Wt 189 lb (85.7kg) BP 114/66, pulse 85, RR 17, SPO2 99% on room air General Appearance: Obese female no acute distress Skin: Skin color, texture, turgor normal, no suspicious rashes or lesions. Head: Normocephalic, no masses, lesions, tenderness or abnormalities. Eyes: Sclera, conjunctiva normal Neck: No JVD, no masses, no adenopathy Lungs: Normal to percussion, not labored, no chest wall tenderness, no crackles or wheezes Heart: Regular rate and rhythm, no murmurs or gallops Extremities: No edema or clubbing Assessment/Plan: 1. Chest pain -Suspect postoperative pain, may take some time to resolve or may be permanent. -Update chest x-ray 2. Granulomatous disease -No further evaluation or surveillance needed Jacquie Evans MD [facility] [place] documented in this encounterTri[facility] History of Present illness Narrative* Eduar Loaiza RT(R) - 10/16/2021 4:50 PM EST Radiology Service Progress Note PATIENT NAME: Terri Burciaga DATE OF SERVICE: October 16, 2021 TIME: 5:06 PM PATIENT IDENTITY VERIFICATION COMPLETED USING TWO (2) IDENTIFIERS: Name and Date of confirmedby patient verbally. FALL SCREENING: Has the patient had 2 falls in the last year or 1 fall with injury or currently using an Ambulatory Assistive Device (Walker, Cane, Wheelchair, Crutches, etc.)? No PATIENT GENDER DATA: Female. status: : No status: NO. PATIENT RELEVANT IMPLANT DATA REVIEWED: Not Applicable RADIOLOGY DEPARTMENT: General X-ray: Exam(s) Completed: Chest X-Ray PERIPHERAL IV DATA: Not applicable SIGNED BY: RT Alessio(R) October 16, 2021 5:06 PM documented in this encounterTri[facility]10[facility] History of Past illness Narrative* Problem Noted Date Resolved Date 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 Admitted 07/30/21, underwent elective left VATS wedge resection Assessment: Ready for discharge to home Plan: -Discuss needs with patient and collaborate with case management -Will continue to evaluate during hospital admission -Skilled needs after discharge: none Nonallopathic lesion of rib cage, not elsewhere classified 02/24/2008 02/12/2017 Essential hypertension, benign 10/15/2006 0 03/10/2008 documented as of this encounter (statuses as of 02/26/2022) [facility] History of Past illness Narrative* Problem Noted Date Resolved Date 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 Admitted 07/30/21, underwent elective left VATS wedge resection Assessment: Ready for discharge to home Plan: -Discuss needs with patient and collaborate with case management -Will continue to evaluate during hospital admission -Skilled needs after discharge: none Nonallopathic lesion of rib cage, not elsewhere classified 02/24/2008 02/12/2017 Essential hypertension, benign 10/15/2006 0 03/10/2008 documented as of this encounter (statuses as of 04/22/2022) [facility] of Past illness Narrative* Problem Noted Date Resolved Date 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 Admitted 07/30/21, underwent elective left VATS wedge resection Assessment: Ready for discharge to home Plan: -Discuss needs with patient and collaborate with case management -Will continue to evaluate during hospital admission -Skilled needs after discharge: none Nonallopathic lesion of rib cage, not elsewhere classified 02/24/2008 02/12/2017 Essential hypertension, benign 10/15/2006 0 03/10/2008 documented as of this encounter (statuses as of 09/08/2022) [facility] History of Past illness Narrative* Problem Noted Date Resolved Date 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 Admitted 07/30/21, underwent elective left VATS wedge resection Assessment: Ready for discharge to home Plan: -Discuss needs with patient and collaborate with case management -Will continue to evaluate during hospital admission -Skilled needs after discharge: none Nonallopathic lesion of rib cage, not elsewhere classified 02/24/2008 02/12/2017 Essential hypertension, benign 10/15/2006 0 03/10/2008 documented as of this encounter (statuses as of 10/24/2022) [facility]03-03-2021 History of Present illness Narrative* Sierra Morrow (Rt), Tech - 01/09/2021 2:00 PM EST Radiology Service Progress Note PATIENT NAME: Terri Burciaga DATE OF SERVICE: January 09, 2021 TIME: 2:06 PM PATIENT IDENTITY VERIFICATION COMPLETED USING TWO (2) IDENTIFIERS: Name and Date of confirmedby patient verbally. FALL SCREENING: Has the patient had 2 falls in the last year or 1 fall with injury or currently using an Ambulatory Assistive Device (Walker, Cane, Wheelchair, Crutches, etc.)? No PATIENT GENDER DATA: Female. status: : No status: NO. PATIENT RELEVANT IMPLANT DATA REVIEWED: Not Applicable RADIOLOGY DEPARTMENT: General X-ray: Exam(s) Completed: Chest X-Ray PERIPHERAL IV DATA: Not applicable SIGNED BY: RT Luann January 09, 2021 2:06 PM [facility]* Diagnosis Chest pain, unspecified type- Primary 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 [facility] Diagnosis Atrophic vaginitis- Primary Postmenopausal atrophic vaginitis Urinary frequency Feeling of incomplete bladder emptying Incomplete bladder emptying H/O senile atrophic vaginitis Personal history of other genital system and obstetric disorders documented in this encounter [facility]* Diagnosis Mixed hyperlipidemia- Primary Hyperglycemia Other abnormal glucose Stage 3b chronic kidney disease (HCC) documented [facility] this [facility]* Diagnosis Atrophic vaginitis Postmenopausal atrophic vaginitis documented [facility] this [facility]* Diagnosis Essential hypertension with goal blood pressure less than 140/90 Hypokalemia Hypopotassemia documented in this [facility]* Diagnosis CKD (chronic kidney disease) stage 1, GFR 90 ml/min or greater- Primary Chronic kidney disease, Stage I documented in this [facility]* Diagnosis Atrial tachycardia (HCC)- Primary Other specified cardiac dysrhythmias Mitral valve disease Other and unspecified mitral valve diseases Essential hypertension with goal blood pressure less than 140/90 Mixed hyperlipidemia FRIEDA (obstructive sleep apnea) Obstructive sleep apnea (adult) (pediatric) Nodule of left lung Solitary pulmonary nodule Pneumothorax of left lung after biopsy Iatrogenic pneumothorax Gastroesophageal reflux disease, unspecified whether esophagitis present Stage 3b chronic kidney disease (HCC) Thyroid nodule Nontoxic uninodular goiter Encounter for immunization Need for other specified prophylactic vaccination against single bacterial disease Polyarthralgia Pain in joint, multiple sites Lipoma of back Lipoma of other specified sites Arthritis of carpometacarpal (CMC) joint of both thumbs documented [facility]* Diagnosis Sjoegren syndrome (HCC)- Primary Sicca syndrome [facility]* Diagnosis Lipoma of anterior chest wall- Primary Lipoma of back Lipoma of other specified sites Dysesthesia Disturbance of skin sensation Lipoma of anterior chest wall Lipoma of back Lipoma of other specified sites Dysesthesia Disturbance of skin sensation documented [facility] Diagnosis Sensation of pressure in bladder area- Primary Other specified disorders of bladder Feeling of incomplete bladder emptying Incomplete bladder emptying Hemoglobinuria documented [facility] Diagnosis Status post excision of lipoma- Primary Other postprocedural status documented in this [facility] Diagnosis Feeling of incomplete bladder emptying- Primary Incomplete bladder emptying Sciatica, right side [facility] Diagnosis Feeling of incomplete bladder emptying- Primary Incomplete bladder emptying documented in this [facility] Diagnosis Feeling of incomplete bladder emptying Incomplete bladder emptying documented in this [facility]* Diagnosis Sciatica, right side documented in this [facility]* Diagnosis Sciatica, right side documented in this [facility]* Diagnosis Sciatica, right side- Primary documented in this encounter [facility]* Diagnosis Pleurisy Pleurisy without mention of effusion or current tuberculosis [facility] Diagnosis Right lumbar radiculitis- Primary Thoracic or lumbosacral neuritis or radiculitis, unspecified Lumbar stenosis with neurogenic claudication Spinal stenosis, lumbar region, with neurogenic claudication Urinary pain Renal colic Intractable pain Other chronic pain Foot drop, left Other acquired deformity of ankle and foot Bilirubin in urine Biliuria documented in this encounter [facility]* Diagnosis Sciatica, right side documented in this [facility]* Diagnosis Sciatica, right side- Primary [facility] Diagnosis Sciatica, right side- Primary documented [facility]* Diagnosis Sciatica, right side- Primary documented in this [facility]* Diagnosis Feeling of incomplete bladder emptying Incomplete bladder emptying documented in this [facility]* Diagnosis Sciatica, right side- Primary documented in this [facility]* Diagnosis Rash- Primary Rash and other nonspecific skin eruption documented in this [facility]* Diagnosis Sciatica, right side- Primary documented in this [facility]* Diagnosis Sciatica, right side- Primary Atrial tachycardia (HCC)- Primary Other specified cardiac dysrhythmias documented in this [facility]* Diagnosis Sciatica, right side- Primary [facility]* Diagnosis Spinal stenosis, lumbar region with neurogenic claudication- Primary Sciatica, right side Other chronic pain [facility]* Diagnosis Sterile pyuria- Primary Other nonspecific finding on examination of urine [facility]* Diagnosis Sjoegren syndrome (HCC)- Primary Sicca syndrome Pain in right hip Pain in joint, pelvic region and thigh Sicca syndrome (HCC) Sicca syndrome Malaise and fatigue Other malaise and fatigue Encounter for screening for osteoporosis Special screening for osteoporosis Elevated sed rate Elevated sedimentation rate Raynaud's disease without gangrene [facility]* Diagnosis Visit for screening mammogram- Primary Other screening mammogram [facility]* Diagnosis Encounter for screening for osteoporosis- Primary Special screening for osteoporosis [facility]* Diagnosis Dehydration- Primary [facility]* Diagnosis Palpitations- Primary Essential hypertension with goal blood pressure less than 140/90 [facility]* Diagnosis Chest pain, unspecified type- Primary [facility]* Diagnosis Urinary frequency- Primary Granulomatous lung disease (HCC) Other diseases of lung, not elsewhere classified Consolidation of left lower lobe of lung (HCC) Atelectasis of left lung Pulmonary collapse Dehydration [facility]* Diagnosis Lung nodule seen on imaging study- Primary Solitary pulmonary nodule History of lung surgery Keratoconjunctivitis sicca, in Sjogren's syndrome (HCC) Sicca syndrome [facility]* Diagnosis RUQ pain- Primary Abdominal pain, right upper quadrant Symptoms of urinary tract infection Other symptoms involving urinary system [facility]* Diagnosis APPOINTMENT CANCELLED- Primary [facility]* Diagnosis Microscopic hematuria- Primary Atrophic vaginitis Postmenopausal atrophic vaginitis [facility]* Diagnosis Hypertension, essential- Primary Unspecified essential hypertension [facility]* Diagnosis Right lumbar radiculitis Thoracic or lumbosacral neuritis or radiculitis, unspecified Lumbar stenosis with neurogenic claudication Spinal stenosis, lumbar region, with neurogenic claudication Intractable pain Other chronic pain Foot drop, left Other acquired deformity of ankle and foot [facility]* Diagnosis Pain in right hip Pain in joint, pelvic region and thigh documented in this [facility]* Diagnosis Chest pain on breathing Painful respiration documented [facility]* Diagnosis Microscopic hematuria documented in this [facility]* Diagnosis Primary hypertension- Primary Unspecified essential hypertension Atrial tachycardia Other specified cardiac dysrhythmias Mixed hyperlipidemia documented [facility] this [facility]* Diagnosis Sjogren's syndrome without extraglandular involvement (HCC)- Primary Screening for osteoporosis Special screening for osteoporosis Osteopenia, unspecified location documented in this encounter [facility]* Diagnosis URI, acute- Primary Acute upper respiratory infections of unspecified site Acute cough documented [facility] this [facility]* Diagnosis Microscopic hematuria- Primary documented in this encounter [facility]* Diagnosis Microscopic hematuria- Primary Right renal stone Vaginal atrophy Postmenopausal atrophic vaginitis documented [facility] this [facility]* Diagnosis Actinic keratosis- Primary Essential hypertension with goal blood pressure less than 140/90 Hypertension, essential Unspecified essential hypertension Stage 3b chronic kidney disease (HCC) Allergic dermatitis Contact dermatitis and other eczema, due to unspecified cause documented [facility] this encounter [facility]* Diagnosis Actinic keratosis- Primary [facility]* Diagnosis Actinic keratosis- Primary [facility]* Diagnosis Injury of right ankle, initial encounter- Primary documented in this encounter [facility]* Diagnosis ST elevation myocardial infarction (STEMI) involving other coronary artery of inferior wall (HCC)- Primary Essential hypertension with goal blood pressure less than 140/90 Pseudoaneurysm (HCC) Aneurysm of unspecified site Enlarged thyroid Goiter, unspecified Mixed hyperlipidemia Atrial tachycardia (HCC) Other specified cardiac dysrhythmias FRIEDA (obstructive sleep apnea) Obstructive sleep apnea (adult) (pediatric) documented in this encounter [facility]* Diagnosis Post PTCA- Primary Postsurgical percutaneous transluminal coronary angioplasty status Atrial tachycardia (HCC) Other specified cardiac dysrhythmias 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 documented in this encounter [facility]* Diagnosis Left-sided chest pain documented in this encounter [facility] note* Diagnosis Arthritis of carpometacarpal (CMC) joint of both thumbs documented [facility] this [facility]* Diagnosis Chest pain, unspecified type documented in this encounter [facility] note* Diagnosis Pain of right thumb- Primary Pain in limb Pain of right thumb Pain in limb [facility] this [facility]* Diagnosis Pain of right thumb Pain in limb documented [facility] this [facility]* Diagnosis Dermatitis- Primary Contact dermatitis and other eczema, due to unspecified cause ST elevation myocardial infarction (STEMI) involving other coronary artery of inferior wall (HCC) Pseudoaneurysm (HCC) Aneurysm of unspecified site Essential hypertension with goal blood pressure less than 140/90 Hypertension, essential Unspecified essential hypertension 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 Fatigue, unspecified type Mixed hyperlipidemia [facility]* Diagnosis Postprocedural pneumothorax Iatrogenic pneumothorax documented in this encounter [facility]* Diagnosis 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 Anemia, unspecified type [facility]* Diagnosis Pseudoaneurysm (HCC) Aneurysm of unspecified site documented in this encounter [facility]* Diagnosis Anemia, unspecified type- Primary documented in this encounter [facility] note* Diagnosis Essential hypertension with goal blood pressure less than 140/90- Primary Anemia, unspecified type Fatigue, unspecified type Gross hematuria documented in this encounter [facility]* Diagnosis Essential hypertension with goal blood pressure less than 140/90- Primary documented in this encounter [facility] note* Diagnosis Visit for wound check- Primary Anticoagulant long-term use Encounter for long-term (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 anticoagulants documented in this encounter [facility] Work Phone: Evaluation note* Diagnosis Mixed hyperlipidemia- Primary Primary hypertension Unspecified essential hypertension 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 documented in this encounter [facility] note* Diagnosis Primary hypertension- Primary Unspecified essential hypertension Mixed hyperlipidemia Atrial tachycardia (HCC) Other specified cardiac dysrhythmias 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) Other diseases of lung, not elsewhere classified Thyroid nodule Nontoxic uninodular goiter Stage 3b chronic kidney disease (HCC) Sjoegren syndrome (HCC) Sicca syndrome Prediabetes Other abnormal glucose Microscopic hematuria 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 Palpitations [facility]* Diagnosis Enlarged thyroid Goiter, unspecified [facility]* Diagnosis Thyroid nodule greater than or equal to 1 cm in diameter incidentally noted on imaging study- Primary [facility]* Diagnosis Lung nodules- Primary Other nonspecific abnormal finding of lung field Granulomatous lung disease (HCC) Other diseases of lung, not elsewhere classified SOB (shortness of breath) Shortness of breath documented in this [facility]* Diagnosis Sjogren's syndrome without extraglandular involvement (HCC)- Primary Osteopenia, unspecified location Rash and nonspecific skin eruption Rash and other nonspecific skin eruption GUERRA (dyspnea on exertion) Other dyspnea and respiratory abnormality documented [facility] this [facility]* Diagnosis Rash and nonspecific skin eruption- Primary Rash and other nonspecific skin eruption [facility]* Diagnosis Lung nodules Other nonspecific abnormal finding of lung field documented in this [facility]* Diagnosis SVT (supraventricular tachycardia) (HCC)- Primary Other specified cardiac dysrhythmias documented in this [facility]* Diagnosis Essential hypertension with goal blood pressure less than 140/90 [facility]* Diagnosis Sjogren's syndrome without extraglandular involvement (HCC) Osteopenia, unspecified location Rash and nonspecific skin eruption Rash and other nonspecific skin eruption GUERRA (dyspnea on exertion) Other dyspnea and respiratory abnormality [facility]* Diagnosis Multiple thyroid nodules- Primary Nontoxic multinodular goiter documented in this encounter [facility] noteNo assessment information availableWTrinity Health [facility] Work Phone: Evaluation note* Diagnosis Neck pain- Primary Cervicalgia Lightheaded Dizziness and giddiness Primary hypertension Unspecified essential hypertension Mixed hyperlipidemia Atrial tachycardia (HCC) Other specified cardiac dysrhythmias 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 Gastroesophageal reflux disease, unspecified whether esophagitis present Sjogren's syndrome, with unspecified organ involvement (HCC) [facility]* Diagnosis Neck pain Cervicalgia Lightheaded Dizziness and giddiness documented in this encounter [facility] note* Diagnosis Primary hypertension- Primary Unspecified essential hypertension Mixed hyperlipidemia Atrial tachycardia (HCC) Other specified cardiac dysrhythmias 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 FRIEDA (obstructive sleep apnea) Obstructive sleep apnea (adult) (pediatric) Granulomatous lung disease (HCC) Other diseases of lung, not elsewhere classified Stage 3b chronic kidney disease (HCC) Sjoegren syndrome (HCC) Sicca syndrome Prediabetes Other abnormal glucose Post PTCA Postsurgical percutaneous transluminal coronary angioplasty status Anxiety Anxiety state, unspecified Medication monitoring encounter Encounter for therapeutic drug monitoring documented in this encounter [facility] note* Diagnosis Solitary thyroid nodule- Primary Nontoxic uninodular goiter Multiple thyroid nodules Nontoxic multinodular goiter documented in this encounter [facility] for referral (narrative)* Diagnostic Procedure Only (Routine) - Authorized Specialty Diagnoses / Procedures [facility] By [facility] Referred To Contact US IMAGING Diagnoses Atrophic vaginitis Procedures US KIDNEY/BLADDER US RETROPERITONEAL REAL TIME W/IMAGE COMPLETE Shirin Draper APRN.CNP [address] [place] [address] Us Imaging Referral ID Status Reason Start Date Expiration Date Visits Requested Visits Authorized [id number] Authorized Auto-Generat ed Referral 04/22/2022 05/22/2023 1 1 [facility] for referral (narrative)* Diagnostic Procedure Only (Routine) - Closed Specialty Diagnoses / Procedures Referred By Contac t Referred To Contact US IMAGING Diagnoses Atrophic vaginitis Procedures US KIDNEY/BLADDER US RETROPERITONEAL REAL TIME W/IMAGE COMPLETE Shirin Draper APRN.CNP [address] [place] [address] Us Imaging Referral ID Status Reason Start Date Expiration Date V isits Requested Visits Authorized [id number] Closed Auto-Generate d Referral 04/22/2022 05/22/2023 1 1 [facility] for referral (narrative)* Diagnostic Procedure Only (Routine) - Pending Review Specialty Diagnoses / Procedures Referred By Contac t Referred To Contact XR IMAGING Diagnoses Arthritis of carpometacarpal (CMC) joint of both thumbs Procedures XR DIGIT GENERAL 3V FRONTAL/LAT/OBL RIGHT RADEX FINGR MINIMUM 2 VIEWS Luc Faustin PA-C [address] [place] [address] Xr Imaging Referral ID Status Reason Start Date Expiration Date Visits Requested Visits Authorized [id number] Pending Review Auto-Generat ed Referral 07/02/2022 08/01/2023 1 1 * Diagnostic Procedure Only (Routine) - Pending Review Specialty Diagnoses / Procedures Referred By Ericaac t Referred To Contact XR IMAGING Diagnoses Arthritis of carpometacarpal (CMC) joint of both thumbs Procedures XR DIGIT GENERAL 3V FRONTAL/LAT/OBL LEFT RADEX FINGR MINIMUM 2 VIEWS Luc Faustin PA-C [address] [place] [address] Xr Imaging Referral ID Status Reason Start Date Expiration Date Visits Requested Visits Authorized [id number] Pending Review Auto-Generat ed Referral 07/02/2022 08/01/2023 1 1 * Consult, Test, Treat (Routine) - Authorized Specialty Diagnoses / Procedures Referred By Contac t Referred To Contact General Surgery Diagnoses Lipoma of back Procedures CONSULT TO GENERAL SURGERY OFFICE/OUTPATIENT [facility] MDM 60-74 MINUTES Luc Faustin PA-C [address] [place] [address] Referral ID Status Reason Start Date Expiration Date Visits Requested Visits Authorized [id number] Authorized PCP Requested Referral 07/01/2022 07/01/2023 1 1 [facility] for referral (narrative)* Diagnostic Procedure Only (Routine) - Authorized Specialty Diagnoses / Procedures Referred By Contac t Referred To Contact US IMAGING Diagnoses Feeling of incomplete bladder emptying Procedures US PELVIS BLADDER US PELVIC [facility]OBSTETRIC [facility]U Luc Faustin PA-C [address] [place] [address] Us Imaging Referral ID Status Reason Start Date Expiration Date Visits Requested Visits Authorized [id number] Authorized Auto-Generat ed Referral 08/13/2022 11/08/2022 1 1 * Consult, Test, Treat (Routine) - Authorized Specialty Diagnoses / Procedures Referred By Contac t Referred To Contact Diagnoses Feeling of incomplete bladder emptying Procedures CONSULT TO FEMALE UROLOGY/URO GYNECOLOGY OFFICE/OUTPATIENT [facility] 60-74 MINUTES Luc Faustin PA-C [address] [place] [address] Referral ID Status Reason Start Date Expiration Date Visits Requested Visits Authorized [id number] Authorized PCP Requested Referral 08/13/2022 08/13/2023 1 1 [facility] for referral (narrative)* Diagnostic Procedure Only (Routine) - Closed Specialty Diagnoses / Procedures Referred By Contac t Referred To Contact US IMAGING Diagnoses Feeling of incomplete bladder emptying Procedures US PELVIS BLADDER US PELVIC NONOBSTETRIC IMAGE [facility]/F/Luc Barrett PA-C [address] [place] [address] Us Imaging Referral ID Status Reason Start Date Expiration Date V isits Requested Visits Authorized [id number] Closed Auto-Generate d Referral 08/13/2022 11/08/2022 1 1 [facility] for referral (narrative)* Diagnostic Procedure Only (Routine) - Closed Specialty Diagnoses / Procedures Referred By Contac t Referred To Contact XR IMAGING Diagnoses Sciatica, right side Procedures XR LUMBAR GENERAL 3V AP/LAT/L5-S1 RADEX SPINE LUMBOSACRAL 2/3 VIEWS Luc Faustin PA-C [address] [place] [address] Xr Imaging Referral ID Status Reason Start Date Expiration Date V isits Requested Visits Authorized [id number] Closed Auto-Generate d Referral 08/18/2022 09/17/2023 1 1 [facility] for referral (narrative)* - Pending Review Specialty Diagnoses / Procedures Referred By Contac t Referred To Contact Physical Therapy Diagnoses Sciatica, right side Spinal stenosis, lumbar region with neurogenic claudication Procedures CONSULT TO PHYSICAL THERAPY Daisha Junior, PULP GRINDER FEEDER.CIRCULAR RIPSAW OPERATOR [address] [place] [address] Referral ID Status Reason Start Date Expiration Date V isits Requested Visits Authorized [id number] Pending Review 10/23/2022 01/21/2023 1 1 [facility] for referral (narrative)* Diagnostic Procedure Only (Routine) - Pending Review Specialty Diagnoses / Procedures Referred By Contac t Referred To Contact XR IMAGING Diagnoses Pain in right hip Procedures XR HIP GENERAL 3V PELV/AP/LAT RIGHT RADEX HIP UNILATERAL WITH PELVIS 2-[place] [address] [place] [address] Xr Imaging Referral ID Status Reason Start Date Expiration Date Visits Requested Visits Authorized [id number] Pending Review Auto-Generat ed Referral 11/28/2022 12/28/2023 1 1 [facility] for referral (narrative)* Diagnostic Procedure Only (Routine) - Authorized Specialty Diagnoses / Procedures Referred By Contac t Referred To Contact BR IMAGING Diagnoses Visit for screening mammogram Procedures GRANT SCREENING SCREENING MAMMOGRAPHY BI 2-VIEW BREAST INC CAD Andre Santana MD [address] [place] [address] Br Imaging [address] [place] [address] Referral ID Status Reason Start Date Expiration Date Visits Requested Visits Authorized [id number] Authorized Auto-Generat ed Referral 01/07/2023 02/05/2024 1 1 [facility] for referral (narrative)* Outpatient Procedure (Routine) - Closed Specialty Diagnoses / Procedures Referred By Contac t Referred To [facility] Diagnoses Palpitations Procedures ECG COMPLETE ECG ROUTINE ECG W/LEAST 12 LDS W/I&R MandylogAngelika rossi APRN.CIRCULAR RIPSAW OPERATOR [address] [place] [address] [facility] [address] [place] [address] Referral ID Status Reason Start Date Expiration Date V isits Requested Visits Authorized [id number] Closed Auto-Generate d Referral 06/17/2023 06/16/2024 1 1 [facility] for referral (narrative)* Diagnostic Procedure Only (Routine) - Authorized Specialty Diagnoses / Procedures Referred By Contac t Referred To Contact US IMAGING Diagnoses RUQ pain Procedures US ABD RIGHT UPPER QUADRANT US ABDOMINAL REAL TIME W/IMAGE LIMITED Angelika Castelan APRN.CIRCULAR RIPSAW OPERATOR [address] [place] [address] [place] [address] Referral ID Status Reason Start Date Expiration Date Visits Requested Visits Authorized [id number] Authorized Auto-Generat ed Referral 08/17/2023 09/15/2024 1 1 [facility] for referral (narrative)* Diagnostic Procedure Only (Routine) - Closed Specialty Diagnoses / Procedures Referred By Contac t Referred To Contact US IMAGING Diagnoses RUQ pain Procedures US ABD RIGHT UPPER QUADRANT US ABDOMINAL REAL TIME W/IMAGE LIMITED MandylogAngelika rossi APRN.CNP [address] [place] [address] [place] [address] Referral ID Status Reason Start Date Expiration Date V isits Requested Visits Authorized [id number] Closed Auto-Generate d Referral 08/17/2023 09/15/2024 1 1 [facility] for referral (narrative)* Diagnostic Procedure Only (Routine) - Closed Specialty Diagnoses / Procedures Referred By Contac t Referred To Contact XR IMAGING Diagnoses Pain in right hip Procedures XR HIP GENERAL 3V PELV/AP/LAT RIGHT RADEX HIP UNILATERAL WITH PELVIS 2-[place] [address] [place] [address] [place] [address] Referral ID Status Reason Start Date Expiration Date V isits Requested Visits Authorized [id number] Closed Auto-Generate d Referral 11/28/2022 12/28/2023 1 1 [facility] for referral (narrative)* Diagnostic Procedure Only (Urgent) - Closed Specialty Diagnoses / Procedures Referred By Contac t Referred To Contact XR IMAGING Diagnoses Injury of right ankle, initial encounter Procedures XR ANKLE GENERAL 3V AP/LAT/OBL RIGHT RADEX ANKLE COMPLETE MINIMUM 3 VIEWS Fabiana Stephenson APRN.CIRCULAR RIPSAW OPERATOR [address] [place] [address] [place] [address] Referral ID Status Reason Start Date Expiration Date V isits Requested Visits Authorized [id number] Closed Auto-Generate d Referral 06/08/2024 07/08/2025 1 1 [facility] for referral (narrative)* Diagnostic Procedure Only (Routine) - New Request Specialty Diagnoses / Procedures Referred By Contac t Referred To Contact US IMAGING Diagnoses Enlarged thyroid Procedures US THYROID/PARATHYROID US SOFT TISSUE HEAD & NECK REAL TIME IMGE DOCM Sandy Holm APRN.CIRCULAR RIPSAW OPERATOR [address] [place] [address] [place] [address] Referral ID Status Reason Start Date Expiration Date Visits Requested Visits Authorized [id number] New Request Auto-Generat ed Referral 07/18/2024 08/17/2025 1 1 * Consult, Test, Treat (Routine) - Authorized Specialty Diagnoses / Procedures Referred By Thea t Referred To Contact Vascular Medicine Diagnoses Pseudoaneurysm (HCC) Procedures CONSULT TO VASCULAR MEDICINE OFFICE/OUTPATIENT [facility] 60 MINUTES Sandy Holm APRN.CNP [address] [place] [address] Referral ID Status Reason Start Date Expiration Date Visits Requested Visits Authorized [id number] Authorized PCP Requested Referral 07/18/2024 07/18/2025 1 1 [facility] for referral (narrative)* Diagnostic Procedure Only (Routine) - Closed Specialty Diagnoses / Procedures Referred By Thea cantu Referred To Contact XR IMAGING Diagnoses Arthritis of carpometacarpal (CMC) joint of both thumbs Procedures XR DIGIT GENERAL 3V FRONTAL/LAT/OBL RIGHT RADEX FINGR MINIMUM 2 VIEWS Luc Faustin PA-C [address] [place] [address] [place] [address] Referral ID Status Reason Start Date Expiration Date V isits Requested Visits Authorized [id number] Closed Auto-Generate d Referral 07/02/2022 08/01/2023 1 1 * Diagnostic Procedure Only (Routine) - Closed Specialty Diagnoses / Procedures Referred By Ericaac t Referred To Contact XR IMAGING Diagnoses Arthritis of carpometacarpal (CMC) joint of both thumbs Procedures XR DIGIT GENERAL 3V FRONTAL/LAT/OBL LEFT RADEX FINGR MINIMUM 2 VIEWS Luc Faustin PA-C [address] [place] [address] [place] [address] Referral ID Status Reason Start Date Expiration Date V isits Requested Visits Authorized [id number] Closed Auto-Generate d Referral 07/02/2022 08/01/2023 1 1 [facility] for referral (narrative)* Diagnostic Procedure Only (Urgent) - Closed Specialty Diagnoses / Procedures Referred By Contac t Referred To Contact XR IMAGING Diagnoses Pain of right thumb Procedures XR DIGIT GENERAL 3V FRONTAL/LAT/OBL RIGHT RADEX FINGR MINIMUM 2 VIEWS Jazmin Palumbo PA [address] [place] [address] [place] [address] Referral ID Status Reason Start Date Expiration Date V isits Requested Visits Authorized [id number] Closed Auto-Generate d Referral 08/09/2024 09/08/2025 1 1 [facility] for referral (narrative)* Diagnostic Procedure Only (Urgent) - Closed Specialty Diagnoses / Procedures Referred By Contac t Referred To Contact XR IMAGING Diagnoses Pain of right thumb Procedures XR DIGIT GENERAL 3V FRONTAL/LAT/OBL RIGHT RADEX FINGR MINIMUM 2 VIEWS Jazmin Palumbo PA [address] [place] [address] [place] [address] Referral ID Status Reason Start Date Expiration Date V isits Requested Visits Authorized [id number] Closed Auto-Generate d Referral 08/09/2024 09/08/2025 1 1 [facility] for referral (narrative)* Outpatient Procedure (Routine) - New Request Specialty Diagnoses / Procedures Referred By Contac t Referred To Contact [facility] Diagnoses Palpitations Procedures ECG COMPLETE ECG ROUTINE ECG W/LEAST 12 LDS W/I&R Andre Santana MD [address] [place] [address] [facility] [place] [address] [place] [address] Referral ID Status Reason Start Date Expiration Date Visits Requested Visits Authorized [id number] New Request Auto-Generat ed Referral 11/23/2024 11/23/2025 1 1 * Consult, Test, Treat (Routine) - Authorized Specialty Diagnoses / Procedures Referred By Contac t Referred To Contact Pulmonary and Critical Care Medicine Diagnoses Granulomatous lung disease (HCC) Procedures CONSULT TO PULM/CRITICAL CARE OFFICE/OUTPATIENT [facility] 60 MINUTES Andre Santana MD [address] [place] [address] Referral ID Status Reason Start Date Expiration Date Visits Requested Visits Authorized [id number] Authorized PCP Requested Referral 11/23/2024 11/23/2025 1 1 [facility] for referral (narrative)* Diagnostic Procedure Only (Routine) - Authorized Specialty Diagnoses / Procedures Referred By Contac t Referred To Contact XR IMAGING Diagnoses Sjogren's syndrome without extraglandular involvement (HCC) Osteopenia, unspecified location Rash and nonspecific skin eruption GUERRA (dyspnea on exertion) Procedures DXA-AXIAL SKELETON DXA BONE DENSITY STUDY 1/> [place] [address] [place] [address] [place] [address] Referral ID Status Reason Start Date Expiration Date Visits Requested Visits Authorized [id number] Authorized Auto-Generat ed Referral 12/15/2024 01/14/2026 1 1 [facility] for referral (narrative)No reason for referral information [facility]: Reason for visit Narrative* Diagnostic Procedure Only (Routine) - Closed Specialty Diagnoses / Procedures Referred By Contac t Referred To Contact US IMAGING Diagnoses Atrophic vaginitis Procedures US KIDNEY/BLADDER US RETROPERITONEAL REAL TIME W/IMAGE COMPLETE Shirin Draper, PULP GRINDER FEEDER.CIRCULAR RIPSAW OPERATOR [address] [place] [address] Us Imaging Referral ID Status Reason Start Date Expiration Date V isits Requested Visits Authorized [id number] Closed Auto-Generate d Referral 04/22/2022 05/22/2023 1 1 [facility] for visit Narrative* Diagnostic Procedure Only (Routine) - Closed Specialty Diagnoses / Procedures Referred By Contac t Referred To Contact XR IMAGING Diagnoses Sciatica, right side Procedures XR LUMBAR GENERAL 3V AP/LAT/L5-S1 RADEX SPINE LUMBOSACRAL 2/3 VIEWS Luc Faustin PA-C [address] [place] [address] Xr Imaging Referral ID Status Reason Start Date Expiration Date V isits Requested Visits Authorized [id number] Closed Auto-Generate d Referral 08/18/2022 09/17/2023 1 1 [facility] for visit Narrative* Diagnostic Procedure Only (Routine) - Closed Specialty Diagnoses / Procedures Referred By Contac t Referred To Contact XR IMAGING Diagnoses Pain in right hip Procedures XR HIP GENERAL 3V PELV/AP/LAT RIGHT RADEX HIP UNILATERAL WITH PELVIS 2-[place] [address] [place] [address] [place] [address] Referral ID Status Reason Start Date Expiration Date V isits Requested Visits Authorized [id number] Closed Auto-Generate d Referral 11/28/2022 12/28/2023 1 1 [facility] for visit Narrative* Diagnostic Procedure Only (Urgent) - Closed Specialty Diagnoses / Procedures Referred By Contac t Referred To Contact XR IMAGING Diagnoses Injury of right ankle, initial encounter Procedures XR ANKLE GENERAL 3V AP/LAT/OBL RIGHT RADEX ANKLE COMPLETE MINIMUM 3 VIEWS Fabiana Stephenson PULP GRINDER FEEDER.CIRCULAR RIPSAW OPERATOR [address] [place] [address] [place] [address] Referral ID Status Reason Start Date Expiration Date V isits Requested Visits Authorized [id number] Closed Auto-Generate d Referral 06/08/2024 07/08/2025 1 1 [facility] for visit Narrative* Diagnostic Procedure Only (Routine) - Closed Specialty Diagnoses / Procedures Referred By Contac t Referred To Contact XR IMAGING Diagnoses Arthritis of carpometacarpal (CMC) joint of both thumbs Procedures XR DIGIT GENERAL 3V FRONTAL/LAT/OBL RIGHT RADEX FINGR MINIMUM 2 VIEWS Luc Faustin PA-C [address] [place] [address] [place] [address] Referral ID Status Reason Start Date Expiration Date V isits Requested Visits Authorized [id number] Closed Auto-Generate d Referral 07/02/2022 08/01/2023 1 1 [facility] for visit Narrative* Diagnostic Procedure Only (Urgent) - Closed Specialty Diagnoses / Procedures Referred By Contac t Referred To Contact XR IMAGING Diagnoses Pain of right thumb Procedures XR DIGIT GENERAL 3V FRONTAL/LAT/OBL RIGHT RADEX FINGR MINIMUM 2 VIEWS Jazmin Palumbo PA [address] [place] [id number] [place] [address] Referral ID Status Reason Start Date Expiration Date V isits Requested Visits Authorized [id number] Closed Auto-Generate d Referral 08/09/2024 09/08/2025 1 1 [facility] for visit Narrative* Diagnostic Procedure Only (Routine) - Closed Specialty Diagnoses / Procedures Referred By Contac t Referred To Contact US IMAGING Diagnoses Enlarged thyroid Procedures US THYROID/PARATHYROID US SOFT TISSUE HEAD & NECK REAL TIME IMGE Sandy Sloan, PULP GRINDER FEEDER.CIRCULAR RIPSAW OPERATOR [address] [place] [address] [place] [address] Referral ID Status Reason Start Date Expiration Date V isits Requested Visits Authorized [id number] Closed Auto-Generate d Referral 07/18/2024 08/17/2025 1 1 [facility] for visit Narrative* MRI/CT (Routine) - Closed Specialty Diagnoses / Procedures Referred By Contac t Referred To Contact CT IMAGING Diagnoses Lung nodules Procedures CT CHEST WO IVCON DIAGNOSTIC COMPUTED TOMOGRAPHY THORAX W/O Jacquie Kay MD [address] [place] [id number] Phone: tel: fax: [place] [address] Referral ID Status Reason Start Date Expiration Date V isits Requested Visits Authorized [id number] Closed Auto-Generate d Referral 12/19/2024 02/17/2025 1 1 [facility] for visit Narrative* Diagnostic Procedure Only (Routine) - Closed Specialty Diagnoses / Procedures Referred By Contac t Referred To Contact XR IMAGING Diagnoses Sjogren's syndrome without extraglandular involvement (HCC) Osteopenia, unspecified location Rash and nonspecific skin eruption GUERRA (dyspnea on exertion) Procedures DXA-AXIAL SKELETON DXA BONE DENSITY STUDY [place] [address] [place] [address] Phone: tel: fax: [place] [address] Referral ID Status Reason Start Date Expiration Date V isits Requested Visits Authorized [id number] Closed Auto-Generate d Referral 12/15/2024 01/14/2026 1 1 [facility] for visit Narrative* Diagnostic Procedure Only (Routine) - Closed Specialty Diagnoses / Procedures Referred By Contac t Referred To Contact XR IMAGING Diagnoses Neck pain Lightheaded Procedures XR CERV OTHER 4V AP/LAT/OBL RADEX SPINE CERVICAL 4 OR 5 VIEWS Andre Santana MD [address] [place] [address] Phone: tel: fax: [place] [address] Referral ID Status Reason Start Date Expiration Date V isits Requested Visits Authorized [id number] Closed Auto-Generate d Referral 04/17/2025 05/17/2026 1 1 [facility] Summary Purpose Family History No Family History Records Found Relationship Condition Age at Onset Recorded Date/T jose enrique Unknown Family History?Heart Disease Unknown November 24, 2018 5:27pm Family History?Heart Disease Unknown November 24, 2018 5:27pm Advance Directives No Advanced Directives Records FoundDocuments on File Type Date Recorded Patient Administrative Associate Expl anation Advance Directive(s) 10/17/2021 8:45 AM Advance Directive(s) 07/30/2021 7:42 AM Advance Directive(s) 07/26/2021 4:23 PM Advance Directive(s) 07/11/2021 11:43 AM Advance Directive(s) 03/12/2021 8:20 AM Advance Directive(s) 12/28/2020 10:47 AM Advance Directive(s) 12/13/2020 10:06 AM Advance Directive(s) 01/11/2016 1:09 PM Advance Directive(s) 01/10/2016 12:31 PM Advance Directive(s) 12/29/2015 11:36 AM Documents on File Type Date Recorded Patient Administrative Associate Expl anation Advance Directive(s) 10/17/2021 8:45 AM Advance Directive(s) 07/30/2021 7:42 AM Advance Directive(s) 07/26/2021 4:23 PM Advance Directive(s) 07/11/2021 11:43 AM Advance Directive(s) 03/12/2021 8:20 AM Advance Directive(s) 12/28/2020 10:47 AM Advance Directive(s) 12/13/2020 10:06 AM Advance Directive(s) 01/11/2016 1:09 PM Advance Directive(s) 01/10/2016 12:31 PM Advance Directive(s) 12/29/2015 11:36 AM Documents on File Type Date Recorded Patient Administrative Associate Expl anation Advance Directive(s) 07/30/2021 7:42 AM Documents on File Type Date Recorded Patient Administrative Associate Expl anation Advance Directive(s) 07/30/2021 7:42 AM Advance Directive Response Recorded Date/ Time Advance Directives on File No Decem 2023 3:33pm Living Will No October 17 3:33pm Do you have a Healthcare Power of Light Bulb Replacer? No October 17, 2024 3:33pm Hospital Course Note HNO ID: [id number] Author: Porfirio liao ([facility]) [place] Service: Hospital Medicine Author Type: Nurse Practitioner Type: Discharge Summary Filed: 01/02/2021 3:55 PM Note Text: Attestation signed by Stacie Shook at 01/02/2021 9:43 PM Stacie Shook, DO DISCHARGE SUMMARY PATIENT NAME: Terri Burciaga ADMISSION DATE: 12/28/2020 MRN: DISCHARGE DATE: 01/02/2021 ATTENDING PHYSICIAN: Stacie Shook Code Status: Not on file Highest Readmission Risk Score: 9 The 30 day readmissions risk score is derived from an internally validated risk model which evaluates patient level characteristics, utilization history, medication orders and lab results up until the day of discharge. Patients with a score of 40 or above are considered highest risk for readmission. Specific patient level drivers will be listed at the bottom of the summa (more content not included)... Note HNO ID: [id number] Author: Greg Arciniega Service: Radiology Author Type: Physician Type: Brief Op Note Filed: 12/28/2020 11:56 AM Note Text: BRIEF OPERATIVE / PROCEDURE NOTE LOG ID: [id number] SURGERY/PROCEDURE DATE: 12/28/2020 INCISION/PROCEDURE START TIME: 11:00 AM INCISION CLOSE/PROCEDURE END TIME: 11:30 AM SURGEON(S)/PROCEDURALIST(S) AND DENTAL TECHNOLOGIST(S): Surgeon(s) and Role: * Oren Arciniega - Primary No Additional Staff SURGERY/PROCEDURE(S): Left Lung Bx ANESTHESIA: Local FINDINGS: Fragment of tissue ESTIMATED BLOOD LOSS: tissue fragment SPECIMENS: fragment of tissue COMPLICATIONS: None, small/moderate left PTX PRE-OP/PRE-PROCEDURE DIAGNOSIS: nodule POST-OP/POST-PROCEDURE DIAGNOSIS: Same as Preop SIGNATURE: Oren Arciniega MD PATIENT NAME: Terri Burciaga DATE: December 28, 2020 MRN: TIME: 11:54 AM PAGER/CONTACT #: Procedure Findings Note HNO ID: [id number] Author: Greg Arciniega Service: Radiology Author Type: Physician Type: Brief Op Note Filed: 12/28/2020 11:56 AM Note Text: BRIEF OPERATIVE / PROCEDURE NOTE LOG ID: [id number] SURGERY/PROCEDURE DATE: 12/28/2020 INCISION/PROCEDURE START TIME: 11:00 AM INCISION CLOSE/PROCEDURE END TIME: 11:30 AM SURGEON(S)/PROCEDURALIST(S) AND DENTAL TECHNOLOGIST(S): Surgeon(s) and Role: * Oren Arciniega - Primary No Additional Staff SURGERY/PROCEDURE(S): Left Lung Bx ANESTHESIA: Local FINDINGS: Fragment of tissue ESTIMATED BLOOD LOSS: tissue fragment SPECIMENS: fragment of tissue COMPLICATIONS: None, small/moderate left PTX PRE-OP/PRE-PROCEDURE DIAGNOSIS: nodule POST-OP/POST-PROCEDURE DIAGNOSIS: Same as Preop SIGNATURE: Oren Arciniega MD PATIENT NAME: Terri Burciaga DATE: December 28, 2020 TIME: 11:54 AM PAGER/CONTACT #: Reason for Referral Specialty Diagnoses / Procedures Referred By Contac t Referred To Contact Rheumatology Diagnoses Sjoegren syndrome (HCC) Procedures CONSULT TO RHEUM/IMMUN DISEASE OFFICE/OUTPATIENT [facility] 60-74 MINUTES Luc Faustin PA-C [address] [place] [address] Referral ID Status Reason Start Date Expiration Date Visits Requested Visits Authorized [id number] Authorized PCP Requested Referral 07/04/2022 07/04/2023 1 1 Specialty Diagnoses / Procedures Referred By Contac t Referred To Contact [facility] Diagnoses Sciatica, right side Procedures PT REHAB FOLLOW UP ORDER PT REHAB FOLLOW UP ORDER THERAPEUTIC EXERCISES RE, EA 15 MIN. Samreen Powell, PT [facility] [place] [address] [place] [address] Referral ID Status Reason Start Date Expiration Date Visits Requested Visits Authorized [id number] Pending Review PCP Requested Referral Auto-Generate d Referral 2 11/25/2022 1 1 Specialty Diagnoses / Procedures Referred By Contac t Referred To Contact MR IMAGING Diagnoses Right lumbar radiculitis Lumbar stenosis with neurogenic claudication Intractable pain Foot drop, left Procedures MRI LUMBAR SPINE WO IVCON MRI SPINAL CANAL LUMBAR W/O CONTRAST MATERIAL Luc Faustin PA-C [address] [place] [address] Mr Imaging Referral ID Status Reason Start Date Expiration Date Visits Requested Visits Authorized [id number] Pending Review Auto-Genera ken Referral Patient Cleared - Admin/Chair man/Directo r advise to proceed 2 10/02/2023 1 1 Specialty Diagnoses / Procedures Referred By Contac t Referred To Contact Pain Management Diagnoses Sciatica, right side Procedures CONSULT TO PAIN MGT OFFICE/OUTPATIENT NEW HIGH MDM 60-74 MINUTES Luc Faustin PA-C [address] [place] [address] Referral ID Status Reason Start Date Expiration Date Visits Requested Visits Authorized [id number] Authorized PCP Requested Referral 2 08/27/2023 1 1 Specialty Diagnoses / Procedures Referred By Contac t Referred To Contact CT IMAGING Diagnoses Chest pain, unspecified type Procedures CT CHEST WO IVCON DIAGNOSTIC COMPUTED TOMOGRAPHY THORAX W/O CNTRST Luc Faustin PA-C [address] [place] [address] Ct [facility] [place] [address] Referral ID Status Reason Start Date Expiration Date Visits Requested Visits Authorized [id number] Pending Review Auto-Generat ed Referral 07/10/2023 08/08/2024 1 1 Specialty Diagnoses / Procedures Referred By Contac t Referred To Contact CT IMAGING Diagnoses Microscopic hematuria Procedures CT UROGRAM WO/W IVCON CT ABD & PELVIS W/O CONTRST 1+ BODY Evan Watson PA-C [address] [place] [address] Ct [facility] [place] [address] Referral ID Status Reason Start Date Expiration Date Visits Requested Visits Authorized [id number] Pending Review Auto-Generat ed Referral 3 09/23/2024 1 1 Specialty Diagnoses / Procedures Referred By Contac t Referred To Contact MR IMAGING Diagnoses Right lumbar radiculitis Lumbar stenosis with neurogenic claudication Intractable pain Foot drop, left Procedures MRI LUMBAR SPINE WO IVCON MRI SPINAL CANAL LUMBAR W/O CONTRAST MATERIAL Luc Faustin PA-C [address] [place] [address] [place] [address] Referral ID Status Reason Start Date Expiration Date V isits Requested Visits Authorized [id number] Closed Auto-Generat ed Referral Patient Cleared - Admin/Chairm an/Director advise to proceed or did not respond 09/05/2022 10/05/2022 1 1 Specialty Diagnoses / Procedures Referred By Contac t Referred To Contact CT IMAGING Diagnoses Chest pain on breathing Procedures CT CHEST WO IVCON DIAGNOSTIC COMPUTED TOMOGRAPHY THORAX W/O CNTRST Luc Fausitn PA-C [address] [place] [address] [place] [address] Referral ID Status Reason Start Date Expiration Date V isits Requested Visits Authorized [id number] Closed Auto-Generate d Referral 07/02/2023 07/31/2024 1 1 Referral ID Status Reason Start Date Expiration Date V isits Requested Visits Authorized [id number] Closed Auto-Generate d Referral 08/27/2023 09/26/2023 1 1 Specialty Diagnoses / Procedures Referred By Contac t Referred To Contact Diagnoses Actinic keratosis Sandy Holm, P[employer]ER FEEDER.CIRCULAR [employer] OPERATOR [address] [place] [address] Referral ID Status Reason Start Date Expiration Date V isits Requested Visits Authorized [id number] Pending Review 1 1 Specialty Diagnoses / Procedures Referred By Contac t Referred To Contact Dermatology Diagnoses Dermatitis Procedures CONSULT TO DERMATOLOGY Andre Santana MD [address] [place] [address] Referral ID Status Reason Start Date Expiration Date Visits Requested Visits Authorized [id number] Ref Not Required PCP Requested Referral 08/12/2024 08/12/2025 1 1 Specialty Diagnoses / Procedures Referred By Contac t Referred To Contact Endocrinology Diagnoses Thyroid nodule greater than or equal to 1 cm in diameter incidentally noted on imaging study Procedures CONSULT TO ENDOCRINOLOGY OFFICE/OUTPATIENT [facility] 60 MINUTES Andre Santana MD [address] [place] [address] Referral ID Status Reason Start Date Expiration Date Visits Requested Visits Authorized [id number] Authorized PCP Requested Referral 11/28/2024 11/28/2025 1 1 Specialty Diagnoses / Procedures Referred By Contdanish t Referred To Contact CT IMAGING Diagnoses Lung nodules Procedures CT CHEST WO IVCON DIAGNOSTIC COMPUTED TOMOGRAPHY THORAX W/O Jacquie Kay MD [address] [place] [address] [place] [address] Referral ID Status Reason Start Date Expiration Date Visits Requested Visits Authorized [id number] Pending Review Auto-Generat ed Referral 12/09/2024 01/08/2026 1 1 Chief Complaint and Reason for Visit Chief Complaint Admit Date PLEASE FAX COPY TO DR SANTANA AND DR RHODES [id number] October 10, 2024 9:24am PCI October 17, 2024 2 :17pm PCI November 07, 2024 3:15pm PCI December 09, 2024 3 :15pm PCI January 06, 2025 3:15pm PCI January 13, 2025 3:15 pm Additional Source Comments INFORMATION SOURCE (unrecogn ized section and content) DATE CREATED AUTHOR 05/22/2019 [facility] DATE CREATED AUTHOR AUTHOR'S ORGANIZ ATION 10/19/2020 [facility] DATE CREATED AUTHOR AUTHOR'S ORGANIZ ATION 01/05/2021 [facility] DATE CREATED AUTHOR AUTHOR'S ORGANIZ ATION 03/23/2021 [facility] DATE CREATED AUTHOR AUTHOR'S ORGANIZ ATION 08/28/2023 [facility] DATE CREATED AUTHOR AUTHOR'S ORGANIZ ATION 09/27/2024 [facility] DATE CREATED AUTHOR AUTHOR'S ORGANIZ ATION 05/21/2025 [facility] DATE CREATED AUTHOR AUTHOR'S ORGANIZ ATION 06/05/2025 [facility] Source Comments (unrecognize d section and content) In the event this informatio n is protected by the Federal Confidentiality of Alcohol and Drug Abuse Patient Records regulations: The Federal rules restrict any use of the information to criminally investigate or prosecute any alcohol or drug abuse patient.[facility] the event this information is protected by the Federal Confidentiality of Alcohol and Drug Abuse Patient Records regulations: The Federal rules restrict any use of the information to criminally investigate or prosecute any alcohol or drug abuse patient.[facility] the event this information is protected by the Federal Confidentiality of Alcohol and Drug Abuse Patient Records regulations: The Federal rules restrict any use of the information to criminally investigate or prosecute any alcohol or drug abuse patient.[facility]In the event this information is protected by the Federal Confidentiality of Alcohol and Drug Abuse Patient Records regulations: The Federal rules restrict any use of the information to criminally investigate or prosecute any alcohol or drug abuse patient.[facility]In the event this information is protected by the Federal Confidentiality of Alcohol and Drug Abuse Patient Records regulations: The Federal rules restrict any use of the information to criminally investigate or prosecute any alcohol or drug abuse patient.[facility] HospitalIn the event this information is protected by the Federal Confidentiality of Alcohol and Drug Abuse Patient Records regulations: The Federal rules restrict any use of the information to criminally investigate or prosecute any alcohol or drug abuse patient.[facility] HospitalIn the event this information is protected by the Federal Confidentiality of Alcohol and Drug Abuse Patient Records regulations: The Federal rules restrict any use of the information to criminally investigate or prosecute any alcohol or drug abuse patient.[facility] HospitalIn the event this information is protected by the Federal Confidentiality of Alcohol and Drug Abuse Patient Records regulations: The Federal rules restrict any use of the information to criminally investigate or prosecute any alcohol or drug abuse patient.[facility] HospitalIn the event this information is protected by the Federal Confidentiality of Alcohol and Drug Abuse Patient Records regulations: The Federal rules restrict any use of the information to criminally investigate or prosecute any alcohol or drug abuse patient.[facility] HospitalIn the event this information is protected by the Federal Confidentiality of Alcohol and Drug Abuse Patient Records regulations: The Federal rules restrict any use of the information to criminally investigate or prosecute any alcohol or drug abuse patient.[facility] HospitalIn the event this information is protected by the Federal Confidentiality of Alcohol and Drug Abuse Patient Records regulations: The Federal rules restrict any use of the information to criminally investigate or prosecute any alcohol or drug abuse patient.[facility] HospitalIn the event this information is protected by the Federal Confidentiality of Alcohol and Drug Abuse Patient Records regulations: The Federal rules restrict any use of the information to criminally investigate or prosecute any alcohol or drug abuse patient.[facility] HospitalIn the event this information is protected by the Federal Confidentiality of Alcohol and Drug Abuse Patient Records regulations: The Federal rules restrict any use of the information to criminally investigate or prosecute any alcohol or drug abuse patient.[facility] HospitalIn the event this information is protected by the Federal Confidentiality of Alcohol and Drug Abuse Patient Records regulations: The Federal rules restrict any use of the information to criminally investigate or prosecute any alcohol or drug abuse patient.[facility] HospitalIn the event this information is protected by the Federal Confidentiality of Alcohol and Drug Abuse Patient Records regulations: The Federal rules restrict any use of the information to criminally investigate or prosecute any alcohol or drug abuse patient.[facility] HospitalIn the event this information is protected by the Federal Confidentiality of Alcohol and Drug Abuse Patient Records regulations: The Federal rules restrict any use of the information to criminally investigate or prosecute any alcohol or drug abuse patient.[facility] HospitalIn the event this information is protected by the Federal Confidentiality of Alcohol and Drug Abuse Patient Records regulations: The Federal rules restrict any use of the information to criminally investigate or prosecute any alcohol or drug abuse patient.[facility] HospitalIn the event this information is protected by the Federal Confidentiality of Alcohol and Drug Abuse Patient Records regulations: The Federal rules restrict any use of the information to criminally investigate or prosecute any alcohol or drug abuse patient.[facility] HospitalIn the event this information is protected by the Federal Confidentiality of Alcohol and Drug Abuse Patient Records regulations: The Federal rules restrict any use of the information to criminally investigate or prosecute any alcohol or drug abuse patient.[facility] HospitalIn the event this information is protected by the Federal Confidentiality of Alcohol and Drug Abuse Patient Records regulations: The Federal rules restrict any use of the information to criminally investigate or prosecute any alcohol or drug abuse patient.[facility] HospitalIn the event this information is protected by the Federal Confidentiality of Alcohol and Drug Abuse Patient Records regulations: The Federal rules restrict any use of the information to criminally investigate or prosecute any alcohol or drug abuse patient.[facility] HospitalIn the event this information is protected by the Federal Confidentiality of Alcohol and Drug Abuse Patient Records regulations: The Federal rules restrict any use of the information to criminally investigate or prosecute any alcohol or drug abuse patient.[facility] HospitalIn the event this information is protected by the Federal Confidentiality of Alcohol and Drug Abuse Patient Records regulations: The Federal rules restrict any use of the information to criminally investigate or prosecute any alcohol or drug abuse patient.[facility] HospitalIn the event this information is protected by the Federal Confidentiality of Alcohol and Drug Abuse Patient Records regulations: The Federal rules restrict any use of the information to criminally investigate or prosecute any alcohol or drug abuse patient.[facility] HospitalIn the event this information is protected by the Federal Confidentiality of Alcohol and Drug Abuse Patient Records regulations: The Federal rules restrict any use of the information to criminally investigate or prosecute any alcohol or drug abuse patient.[facility] HospitalIn the event this information is protected by the Federal Confidentiality of Alcohol and Drug Abuse Patient Records regulations: The Federal rules restrict any use of the information to criminally investigate or prosecute any alcohol or drug abuse patient.[facility] HospitalIn the event this information is protected by the Federal Confidentiality of Alcohol and Drug Abuse Patient Records regulations: The Federal rules restrict any use of the information to criminally investigate or prosecute any alcohol or drug abuse patient.[facility] HospitalIn the event this information is protected by the Federal Confidentiality of Alcohol and Drug Abuse Patient Records regulations: The Federal rules restrict any use of the information to criminally investigate or prosecute any alcohol or drug abuse patient.[facility] HospitalIn the event this information is protected by the Federal Confidentiality of Alcohol and Drug Abuse Patient Records regulations: The Federal rules restrict any use of the information to criminally investigate or prosecute any alcohol or drug abuse patient.[facility] HospitalIn the event this information is protected by the Federal Confidentiality of Alcohol and Drug Abuse Patient Records regulations: The Federal rules restrict any use of the information to criminally investigate or prosecute any alcohol or drug abuse patient.[facility] HospitalIn the event this information is protected by the Federal Confidentiality of Alcohol and Drug Abuse Patient Records regulations: The Federal rules restrict any use of the information to criminally investigate or prosecute any alcohol or drug abuse patient.[facility] HospitalIn the event this information is protected by the Federal Confidentiality of Alcohol and Drug Abuse Patient Records regulations: The Federal rules restrict any use of the information to criminally investigate or prosecute any alcohol or drug abuse patient.[facility] HospitalIn the event this information is protected by the Federal Confidentiality of Alcohol and Drug Abuse Patient Records regulations: The Federal rules restrict any use of the information to criminally investigate or prosecute any alcohol or drug abuse patient.[facility] HospitalIn the event this information is protected by the Federal Confidentiality of Alcohol and Drug Abuse Patient Records regulations: The Federal rules restrict any use of the information to criminally investigate or prosecute any alcohol or drug abuse patient.[facility] HospitalIn the event this information is protected by the Federal Confidentiality of Alcohol and Drug Abuse Patient Records regulations: The Federal rules restrict any use of the information to criminally investigate or prosecute any alcohol or drug abuse patient.[facility] HospitalIn the event this information is protected by the Federal Confidentiality of Alcohol and Drug Abuse Patient Records regulations: The Federal rules restrict any use of the information to criminally investigate or prosecute any alcohol or drug abuse patient.[facility] HospitalIn the event this information is protected by the Federal Confidentiality of Alcohol and Drug Abuse Patient Records regulations: The Federal rules restrict any use of the information to criminally investigate or prosecute any alcohol or drug abuse patient.[facility] HospitalIn the event this information is protected by the Federal Confidentiality of Alcohol and Drug Abuse Patient Records regulations: The Federal rules restrict any use of the information to criminally investigate or prosecute any alcohol or drug abuse patient.[facility] HospitalIn the event this information is protected by the Federal Confidentiality of Alcohol and Drug Abuse Patient Records regulations: The Federal rules restrict any use of the information to criminally investigate or prosecute any alcohol or drug abuse patient.[facility] HospitalIn the event this information is protected by the Federal Confidentiality of Alcohol and Drug Abuse Patient Records regulations: The Federal rules restrict any use of the information to criminally investigate or prosecute any alcohol or drug abuse patient.[facility] HospitalIn the event this information is protected by the Federal Confidentiality of Alcohol and Drug Abuse Patient Records regulations: The Federal rules restrict any use of the information to criminally investigate or prosecute any alcohol or drug abuse patient.[facility] HospitalIn the event this information is protected by the Federal Confidentiality of Alcohol and Drug Abuse Patient Records regulations: The Federal rules restrict any use of the information to criminally investigate or prosecute any alcohol or drug abuse patient.[facility] HospitalIn the event this information is protected by the Federal Confidentiality of Alcohol and Drug Abuse Patient Records regulations: The Federal rules restrict any use of the information to criminally investigate or prosecute any alcohol or drug abuse patient.[facility] HospitalIn the event this information is protected by the Federal Confidentiality of Alcohol and Drug Abuse Patient Records regulations: The Federal rules restrict any use of the information to criminally investigate or prosecute any alcohol or drug abuse patient.[facility] HospitalIn the event this information is protected by the Federal Confidentiality of Alcohol and Drug Abuse Patient Records regulations: The Federal rules restrict any use of the information to criminally investigate or prosecute any alcohol or drug abuse patient.[facility] HospitalIn the event this information is protected by the Federal Confidentiality of Alcohol and Drug Abuse Patient Records regulations: The Federal rules restrict any use of the information to criminally investigate or prosecute any alcohol or drug abuse patient.[facility] HospitalIn the event this information is protected by the Federal Confidentiality of Alcohol and Drug Abuse Patient Records regulations: The Federal rules restrict any use of the information to criminally investigate or prosecute any alcohol or drug abuse patient.[facility] HospitalIn the event this information is protected by the Federal Confidentiality of Alcohol and Drug Abuse Patient Records regulations: The Federal rules restrict any use of the information to criminally investigate or prosecute any alcohol or drug abuse patient.[facility] HospitalIn the event this information is protected by the Federal Confidentiality of Alcohol and Drug Abuse Patient Records regulations: The Federal rules restrict any use of the information to criminally investigate or prosecute any alcohol or drug abuse patient.[facility] HospitalIn the event this information is protected by the Federal Confidentiality of Alcohol and Drug Abuse Patient Records regulations: The Federal rules restrict any use of the information to criminally investigate or prosecute any alcohol or drug abuse patient.[facility] HospitalIn the event this information is protected by the Federal Confidentiality of Alcohol and Drug Abuse Patient Records regulations: The Federal rules restrict any use of the information to criminally investigate or prosecute any alcohol or drug abuse patient.[facility] HospitalIn the event this information is protected by the Federal Confidentiality of Alcohol and Drug Abuse Patient Records regulations: The Federal rules restrict any use of the information to criminally investigate or prosecute any alcohol or drug abuse patient.[facility] HospitalIn the event this information is protected by the Federal Confidentiality of Alcohol and Drug Abuse Patient Records regulations: The Federal rules restrict any use of the information to criminally investigate or prosecute any alcohol or drug abuse patient.[facility] HospitalIn the event this information is protected by the Federal Confidentiality of Alcohol and Drug Abuse Patient Records regulations: The Federal rules restrict any use of the information to criminally investigate or prosecute any alcohol or drug abuse patient.[facility] HospitalIn the event this information is protected by the Federal Confidentiality of Alcohol and Drug Abuse Patient Records regulations: The Federal rules restrict any use of the information to criminally investigate or prosecute any alcohol or drug abuse patient.[facility] HospitalIn the event this information is protected by the Federal Confidentiality of Alcohol and Drug Abuse Patient Records regulations: The Federal rules restrict any use of the information to criminally investigate or prosecute any alcohol or drug abuse patient.[facility] HospitalIn the event this information is protected by the Federal Confidentiality of Alcohol and Drug Abuse Patient Records regulations: The Federal rules restrict any use of the information to criminally investigate or prosecute any alcohol or drug abuse patient.[facility] HospitalIn the event this information is protected by the Federal Confidentiality of Alcohol and Drug Abuse Patient Records regulations: The Federal rules restrict any use of the information to criminally investigate or prosecute any alcohol or drug abuse patient.[facility] HospitalIn the event this information is protected by the Federal Confidentiality of Alcohol and Drug Abuse Patient Records regulations: The Federal rules restrict any use of the information to criminally investigate or prosecute any alcohol or drug abuse patient.[facility] HospitalIn the event this information is protected by the Federal Confidentiality of Alcohol and Drug Abuse Patient Records regulations: The Federal rules restrict any use of the information to criminally investigate or prosecute any alcohol or drug abuse patient.[facility] HospitalIn the event this information is protected by the Federal Confidentiality of Alcohol and Drug Abuse Patient Records regulations: The Federal rules restrict any use of the information to criminally investigate or prosecute any alcohol or drug abuse patient.[facility] HospitalIn the event this information is protected by the Federal Confidentiality of Alcohol and Drug Abuse Patient Records regulations: The Federal rules restrict any use of the information to criminally investigate or prosecute any alcohol or drug abuse patient.[facility] HospitalIn the event this information is protected by the Federal Confidentiality of Alcohol and Drug Abuse Patient Records regulations: The Federal rules restrict any use of the information to criminally investigate or prosecute any alcohol or drug abuse patient.[facility] HospitalIn the event this information is protected by the Federal Confidentiality of Alcohol and Drug Abuse Patient Records regulations: The Federal rules restrict any use of the information to criminally investigate or prosecute any alcohol or drug abuse patient.[facility] HospitalIn the event this information is protected by the Federal Confidentiality of Alcohol and Drug Abuse Patient Records regulations: The Federal rules restrict any use of the information to criminally investigate or prosecute any alcohol or drug abuse patient.[facility] HospitalIn the event this information is protected by the Federal Confidentiality of Alcohol and Drug Abuse Patient Records regulations: The Federal rules restrict any use of the information to criminally investigate or prosecute any alcohol or drug abuse patient.[facility] HospitalIn the event this information is protected by the Federal Confidentiality of Alcohol and Drug Abuse Patient Records regulations: The Federal rules restrict any use of the information to criminally investigate or prosecute any alcohol or drug abuse patient.[facility] HospitalIn the event this information is protected by the Federal Confidentiality of Alcohol and Drug Abuse Patient Records regulations: The Federal rules restrict any use of the information to criminally investigate or prosecute any alcohol or drug abuse patient.[facility] HospitalIn the event this information is protected by the Federal Confidentiality of Alcohol and Drug Abuse Patient Records regulations: The Federal rules restrict any use of the information to criminally investigate or prosecute any alcohol or drug abuse patient.[facility] HospitalIn the event this information is protected by the Federal Confidentiality of Alcohol and Drug Abuse Patient Records regulations: The Federal rules restrict any use of the information to criminally investigate or prosecute any alcohol or drug abuse patient.[facility] HospitalIn the event this information is protected by the Federal Confidentiality of Alcohol and Drug Abuse Patient Records regulations: The Federal rules restrict any use of the information to criminally investigate or prosecute any alcohol or drug abuse patient.[facility] HospitalIn the event this information is protected by the Federal Confidentiality of Alcohol and Drug Abuse Patient Records regulations: The Federal rules restrict any use of the information to criminally investigate or prosecute any alcohol or drug abuse patient.[facility] HospitalIn the event this information is protected by the Federal Confidentiality of Alcohol and Drug Abuse Patient Records regulations: The Federal rules restrict any use of the information to criminally investigate or prosecute any alcohol or drug abuse patient.[facility] HospitalIn the event this information is protected by the Federal Confidentiality of Alcohol and Drug Abuse Patient Records regulations: The Federal rules restrict any use of the information to criminally investigate or prosecute any alcohol or drug abuse patient.[facility] HospitalIn the event this information is protected by the Federal Confidentiality of Alcohol and Drug Abuse Patient Records regulations: The Federal rules restrict any use of the information to criminally investigate or prosecute any alcohol or drug abuse patient.[facility] HospitalIn the event this information is protected by the Federal Confidentiality of Alcohol and Drug Abuse Patient Records regulations: The Federal rules restrict any use of the information to criminally investigate or prosecute any alcohol or drug abuse patient.[facility] HospitalIn the event this information is protected by the Federal Confidentiality of Alcohol and Drug Abuse Patient Records regulations: The Federal rules restrict any use of the information to criminally investigate or prosecute any alcohol or drug abuse patient.[facility] HospitalIn the event this information is protected by the Federal Confidentiality of Alcohol and Drug Abuse Patient Records regulations: The Federal rules restrict any use of the information to criminally investigate or prosecute any alcohol or drug abuse patient.[facility] HospitalIn the event this information is protected by the Federal Confidentiality of Alcohol and Drug Abuse Patient Records regulations: The Federal rules restrict any use of the information to criminally investigate or prosecute any alcohol or drug abuse patient.[facility] HospitalIn the event this information is protected by the Federal Confidentiality of Alcohol and Drug Abuse Patient Records regulations: The Federal rules restrict any use of the information to criminally investigate or prosecute any alcohol or drug abuse patient.[facility] HospitalIn the event this information is protected by the Federal Confidentiality of Alcohol and Drug Abuse Patient Records regulations: The Federal rules restrict any use of the information to criminally investigate or prosecute any alcohol or drug abuse patient.[facility] HospitalIn the event this information is protected by the Federal Confidentiality of Alcohol and Drug Abuse Patient Records regulations: The Federal rules restrict any use of the information to criminally investigate or prosecute any alcohol or drug abuse patient.[facility] HospitalIn the event this information is protected by the Federal Confidentiality of Alcohol and Drug Abuse Patient Records regulations: The Federal rules restrict any use of the information to criminally investigate or prosecute any alcohol or drug abuse patient.[facility] HospitalIn the event this information is protected by the Federal Confidentiality of Alcohol and Drug Abuse Patient Records regulations: The Federal rules restrict any use of the information to criminally investigate or prosecute any alcohol or drug abuse patient.[facility] HospitalIn the event this information is protected by the Federal Confidentiality of Alcohol and Drug Abuse Patient Records regulations: The Federal rules restrict any use of the information to criminally investigate or prosecute any alcohol or drug abuse patient.[facility] HospitalIn the event this information is protected by the Federal Confidentiality of Alcohol and Drug Abuse Patient Records regulations: The Federal rules restrict any use of the information to criminally investigate or prosecute any alcohol or drug abuse patient.[facility] HospitalIn the event this information is protected by the Federal Confidentiality of Alcohol and Drug Abuse Patient Records regulations: The Federal rules restrict any use of the information to criminally investigate or prosecute any alcohol or drug abuse patient.[facility] HospitalIn the event this information is protected by the Federal Confidentiality of Alcohol and Drug Abuse Patient Records regulations: The Federal rules restrict any use of the information to criminally investigate or prosecute any alcohol or drug abuse patient.[facility] HospitalIn the event this information is protected by the Federal Confidentiality of Alcohol and Drug Abuse Patient Records regulations: The Federal rules restrict any use of the information to criminally investigate or prosecute any alcohol or drug abuse patient.[facility] HospitalIn the event this information is protected by the Federal Confidentiality of Alcohol and Drug Abuse Patient Records regulations: The Federal rules restrict any use of the information to criminally investigate or prosecute any alcohol or drug abuse patient.[facility] HospitalIn the event this information is protected by the Federal Confidentiality of Alcohol and Drug Abuse Patient Records regulations: The Federal rules restrict any use of the information to criminally investigate or prosecute any alcohol or drug abuse patient.[facility] HospitalIn the event this information is protected by the Federal Confidentiality of Alcohol and Drug Abuse Patient Records regulations: The Federal rules restrict any use of the information to criminally investigate or prosecute any alcohol or drug abuse patient.[facility] HospitalIn the event this information is protected by the Federal Confidentiality of Alcohol and Drug Abuse Patient Records regulations: The Federal rules restrict any use of the information to criminally investigate or prosecute any alcohol or drug abuse patient.[facility] HospitalIn the event this information is protected by the Federal Confidentiality of Alcohol and Drug Abuse Patient Records regulations: The Federal rules restrict any use of the information to criminally investigate or prosecute any alcohol or drug abuse patient.[facility] HospitalIn the event this information is protected by the Federal Confidentiality of Alcohol and Drug Abuse Patient Records regulations: The Federal rules restrict any use of the information to criminally investigate or prosecute any alcohol or drug abuse patient.[facility] HospitalIn the event this information is protected by the Federal Confidentiality of Alcohol and Drug Abuse Patient Records regulations: The Federal rules restrict any use of the information to criminally investigate or prosecute any alcohol or drug abuse patient.[facility] HospitalIn the event this information is protected by the Federal Confidentiality of Alcohol and Drug Abuse Patient Records regulations: The Federal rules restrict any use of the information to criminally investigate or prosecute any alcohol or drug abuse patient.[facility] HospitalIn the event this information is protected by the Federal Confidentiality of Alcohol and Drug Abuse Patient Records regulations: The Federal rules restrict any use of the information to criminally investigate or prosecute any alcohol or drug abuse patient.[facility] HospitalIn the event this information is protected by the Federal Confidentiality of Alcohol and Drug Abuse Patient Records regulations: The Federal rules restrict any use of the information to criminally investigate or prosecute any alcohol or drug abuse patient.[facility] HospitalIn the event this information is protected by the Federal Confidentiality of Alcohol and Drug Abuse Patient Records regulations: The Federal rules restrict any use of the information to criminally investigate or prosecute any alcohol or drug abuse patient.[facility] HospitalIn the event this information is protected by the Federal Confidentiality of Alcohol and Drug Abuse Patient Records regulations: The Federal rules restrict any use of the information to criminally investigate or prosecute any alcohol or drug abuse patient.[facility] HospitalIn the event this information is protected by the Federal Confidentiality of Alcohol and Drug Abuse Patient Records regulations: The Federal rules restrict any use of the information to criminally investigate or prosecute any alcohol or drug abuse patient.[facility] HospitalIn the event this information is protected by the Federal Confidentiality of Alcohol and Drug Abuse Patient Records regulations: The Federal rules restrict any use of the information to criminally investigate or prosecute any alcohol or drug abuse patient.[facility] HospitalIn the event this information is protected by the Federal Confidentiality of Alcohol and Drug Abuse Patient Records regulations: The Federal rules restrict any use of the information to criminally investigate or prosecute any alcohol or drug abuse patient.[facility] HospitalIn the event this information is protected by the Federal Confidentiality of Alcohol and Drug Abuse Patient Records regulations: The Federal rules restrict any use of the information to criminally investigate or prosecute any alcohol or drug abuse patient.[facility] HospitalIn the event this information is protected by the Federal Confidentiality of Alcohol and Drug Abuse Patient Records regulations: The Federal rules restrict any use of the information to criminally investigate or prosecute any alcohol or drug abuse patient.[facility] HospitalIn the event this information is protected by the Federal Confidentiality of Alcohol and Drug Abuse Patient Records regulations: The Federal rules restrict any use of the information to criminally investigate or prosecute any alcohol or drug abuse patient.[facility] HospitalIn the event this information is protected by the Federal Confidentiality of Alcohol and Drug Abuse Patient Records regulations: The Federal rules restrict any use of the information to criminally investigate or prosecute any alcohol or drug abuse patient.[facility] HospitalIn the event this information is protected by the Federal Confidentiality of Alcohol and Drug Abuse Patient Records regulations: The Federal rules restrict any use of the information to criminally investigate or prosecute any alcohol or drug abuse patient.[facility] HospitalIn the event this information is protected by the Federal Confidentiality of Alcohol and Drug Abuse Patient Records regulations: The Federal rules restrict any use of the information to criminally investigate or prosecute any alcohol or drug abuse patient.[facility] HospitalIn the event this information is protected by the Federal Confidentiality of Alcohol and Drug Abuse Patient Records regulations: The Federal rules restrict any use of the information to criminally investigate or prosecute any alcohol or drug abuse patient.[facility] HospitalIn the event this information is protected by the Federal Confidentiality of Alcohol and Drug Abuse Patient Records regulations: The Federal rules restrict any use of the information to criminally investigate or prosecute any alcohol or drug abuse patient.[facility] HospitalIn the event this information is protected by the Federal Confidentiality of Alcohol and Drug Abuse Patient Records regulations: The Federal rules restrict any use of the information to criminally investigate or prosecute any alcohol or drug abuse patient.[facility] HospitalIn the event this information is protected by the Federal Confidentiality of Alcohol and Drug Abuse Patient Records regulations: The Federal rules restrict any use of the information to criminally investigate or prosecute any alcohol or drug abuse patient.[facility] HospitalIn the event this information is protected by the Federal Confidentiality of Alcohol and Drug Abuse Patient Records regulations: The Federal rules restrict any use of the information to criminally investigate or prosecute any alcohol or drug abuse patient.[facility] HospitalIn the event this information is protected by the Federal Confidentiality of Alcohol and Drug Abuse Patient Records regulations: The Federal rules restrict any use of the information to criminally investigate or prosecute any alcohol or drug abuse patient.[facility] HospitalIn the event this information is protected by the Federal Confidentiality of Alcohol and Drug Abuse Patient Records regulations: The Federal rules restrict any use of the information to criminally investigate or prosecute any alcohol or drug abuse patient.[facility] HospitalIn the event this information is protected by the Federal Confidentiality of Alcohol and Drug Abuse Patient Records regulations: The Federal rules restrict any use of the information to criminally investigate or prosecute any alcohol or drug abuse patient.[facility] HospitalIn the event this information is protected by the Federal Confidentiality of Alcohol and Drug Abuse Patient Records regulations: The Federal rules restrict any use of the information to criminally investigate or prosecute any alcohol or drug abuse patient.[facility] HospitalIn the event this information is protected by the Federal Confidentiality of Alcohol and Drug Abuse Patient Records regulations: The Federal rules restrict any use of the information to criminally investigate or prosecute any alcohol or drug abuse patient.[facility] HospitalIn the event this information is protected by the Federal Confidentiality of Alcohol and Drug Abuse Patient Records regulations: The Federal rules restrict any use of the information to criminally investigate or prosecute any alcohol or drug abuse patient.[facility] HospitalIn the event this information is protected by the Federal Confidentiality of Alcohol and Drug Abuse Patient Records regulations: The Federal rules restrict any use of the information to criminally investigate or prosecute any alcohol or drug abuse patient.[facility] HospitalIn the event this information is protected by the Federal Confidentiality of Alcohol and Drug Abuse Patient Records regulations: The Federal rules restrict any use of the information to criminally investigate or prosecute any alcohol or drug abuse patient.[facility] HospitalIn the event this information is protected by the Federal Confidentiality of Alcohol and Drug Abuse Patient Records regulations: The Federal rules restrict any use of the information to criminally investigate or prosecute any alcohol or drug abuse patient.[facility] HospitalIn the event this information is protected by the Federal Confidentiality of Alcohol and Drug Abuse Patient Records regulations: The Federal rules restrict any use of the information to criminally investigate or prosecute any alcohol or drug abuse patient.[facility] HospitalIn the event this information is protected by the Federal Confidentiality of Alcohol and Drug Abuse Patient Records regulations: The Federal rules restrict any use of the information to criminally investigate or prosecute any alcohol or drug abuse patient.[facility] HospitalIn the event this information is protected by the Federal Confidentiality of Alcohol and Drug Abuse Patient Records regulations: The Federal rules restrict any use of the information to criminally investigate or prosecute any alcohol or drug abuse patient.[facility] HospitalIn the event this information is protected by the Federal Confidentiality of Alcohol and Drug Abuse Patient Records regulations: The Federal rules restrict any use of the information to criminally investigate or prosecute any alcohol or drug abuse patient.[facility] HospitalIn the event this information is protected by the Federal Confidentiality of Alcohol and Drug Abuse Patient Records regulations: The Federal rules restrict any use of the information to criminally investigate or prosecute any alcohol or drug abuse patient.[facility] HospitalIn the event this information is protected by the Federal Confidentiality of Alcohol and Drug Abuse Patient Records regulations: The Federal rules restrict any use of the information to criminally investigate or prosecute any alcohol or drug abuse patient.[facility] HospitalIn the event this information is protected by the Federal Confidentiality of Alcohol and Drug Abuse Patient Records regulations: The Federal rules restrict any use of the information to criminally investigate or prosecute any alcohol or drug abuse patient.[facility] Reason for Visit (unrecogniz ed section and content) Reason Comments Physical Therapy Specialty Diagnoses / Procedures Referred By Contac t Referred To Contact [facility] Diagnoses Sciatica, right side Procedures PT REHAB FOLLOW UP ORDER PT REHAB FOLLOW UP ORDER THERAPEUTIC EXERCISES RE, EA 15 MIN. Luc Faustni PA-C [address] [place] [address] [facility] [place] [address] [place] [address] Referral ID Status Reason Start Date Expiration Date Visits Requested Visits Authorized [id number] Authorized PCP Requested Referral Auto-Generate d Referral 11/08/2022 12 12 Reason Comments PT Progress Note Reason Comments Established Patient 2 month follow up Reason Comments Bladder Problem feeling of incomplet e emptying Vaginal Problem h/o atrophic vaginit is Specialty Diagnoses / Procedures Referred By Contac t Referred To Contact Urology Diagnoses Urinary frequency Procedures CONSULT TO UROLOGY NEW PATIENT VISIT LEVEL 5 Andre Santana MD [address] [place] [address] Referral ID Status Reason Start Date Expiration Date V isits Requested Visits Authorized [id number] Closed PCP Requested Referral 10/24/2021 10/24/2022 1 1 Reason Comments Lab Orders Reason Comments Results Reason Onset Date Comments Refill Request 05/15/2022 Reason Onset Date Comments CDM Enrollment 05/27/2022 inSight Enrollme nt Call #1 Reason Comments Follow Up Fall Fell 3 weeks ago in restaurant and landed on both knees, aches all over Reason Comments Results Reason Comments Consult Lipomas chest & back Specialty Diagnoses / Procedures Referred By Contac t Referred To Contact General Surgery Diagnoses Lipoma of back Procedures CONSULT TO GENERAL SURGERY OFFICE/OUTPATIENT NEW HIGH MDM 60-74 MINUTES Luc Faustin PA-C [address] [place] [address] Referral ID Status Reason Start Date Expiration Date V isits Requested Visits Authorized [id number] Closed PCP Requested Referral 07/01/2022 07/01/2023 1 1 Reason Comments Established Patient 3 month f/u Reason Comments Follow Up Excision of lipoma c hest wall & torso Reason Comments Follow Up Reason Comments Results Reason Comments Radiology US Specialty Diagnoses / Procedures Referred By Contac t Referred To Contact US IMAGING Diagnoses Feeling of incomplete bladder emptying Procedures US PELVIS BLADDER US PELVIC NONOBSTETRIC IMAGE DCMTN LIMITED/F/U Luc Faustin PA-C [address] [place] [address] Us Imaging Referral ID Status Reason Start Date Expiration Date V isits Requested Visits Authorized [id number] Closed Auto-Generate d Referral 08/13/2022 11/08/2022 1 1 Reason Onset Date Comments Refill Request 08/21/2022 Reason Comments PT Eval Specialty Diagnoses / Procedures Referred By Contac t Referred To Contact [facility] Diagnoses Sciatica, right side Procedures CONSULT TO PHYSICAL THERAPY PHYSICAL THERAPY EVALUATION HIGH COMPLEX 45 MINS Luc Faustin PA-C [address] [place] [address] [facility] [address] [place] [address] Referral ID Status Reason Start Date Expiration Date V isits Requested Visits Authorized [id number] Closed Auto-Generate d Referral 08/27/2022 10/27/2022 1 1 Reason Comments Results Chest x-ray Reason Comments Follow Up Back pain Reason Onset Date Comments Refill Request 09/01/2022 Reason Comments Follow Up Urinary Retention Specialty Diagnoses / Procedures Referred By Contac t Referred To Contact Diagnoses Feeling of incomplete bladder emptying Procedures CONSULT TO FEMALE UROLOGY/URO GYNECOLOGY OFFICE/OUTPATIENT [facility] MDM 60-74 MINUTES Luc Faustin PA-C [address] [place] [address] Referral ID Status Reason Start Date Expiration Date V isits Requested Visits Authorized [id number] Closed PCP Requested Referral 08/13/2022 08/13/2023 1 1 Reason Comments Rash Started Thursday mor rios, from waist up, itchy Reason Comments New Patient Low Back Pain Leg Pain Right Specialty Diagnoses / Procedures Referred By Contac t Referred To Contact Pain Management Diagnoses Sciatica, right side Procedures CONSULT TO PAIN MGT OFFICE/OUTPATIENT NEW HIGH MDM 60-74 MINUTES Luc Faustin PA-C [address] [place] [address] Referral ID Status Reason Start Date Expiration Date V isits Requested Visits Authorized [id number] Closed PCP Requested Referral 08/28/2022 08/27/2023 1 1 Reason Comments Patient Update Consult Reason Comments Results, Lab Reason Comments New Patient Sjogren's Disease Specialty Diagnoses / Procedures Referred By Contac t Referred To Contact Rheumatology Diagnoses Sjoegren syndrome (HCC) Procedures CONSULT TO RHEUM/IMMUN DISEASE OFFICE/OUTPATIENT NEW HIGH MDM 60-74 MINUTES Luc Faustin PA-C [address] [place] [address] Referral ID Status Reason Start Date Expiration Date V isits Requested Visits Authorized [id number] Closed PCP Requested Referral 07/04/2022 07/04/2023 1 1 Reason Comments Palpitations Started this morning . Stopped taking HCTZ on the 1st along K+. Reason Comments Follow Up UTI Reason Comments Recheck Reason Comments Pain Right side under rib s x3 days Reason Comments Hematuria New Patient Specialty Diagnoses / Procedures Referred By Thea t Referred To Contact Urology Diagnoses Microscopic hematuria Procedures CONSULT TO UROLOGY OFFICE/OUTPATIENT NEW [facility] 60-74 MINUTES Andre Santana MD [address] [place] [id number] Referral ID Status Reason Start Date Expiration Date V isits Requested Visits Authorized [id number] Closed PCP Requested Referral 07/20/2023 07/19/2024 1 1 Reason Comments Hypertension Specialty Diagnoses / Procedures Referred By Thea t Referred To Contact US IMAGING Diagnoses RUQ pain Procedures US ABD RIGHT UPPER QUADRANT US ABDOMINAL REAL TIME W/IMAGE LIMITED PodlogarAngelika APRN.CNP [address] [place] [address] [place] [address] Referral ID Status Reason Start Date Expiration Date V isits Requested Visits Authorized [id number] Closed Auto-Generate d Referral 08/17/2023 09/15/2024 1 1 Specialty Diagnoses / Procedures Referred By Thea t Referred To Contact MR IMAGING Diagnoses Right lumbar radiculitis Lumbar stenosis with neurogenic claudication Intractable pain Foot drop, left Procedures MRI LUMBAR SPINE WO IVCON MRI SPINAL CANAL LUMBAR W/O CONTRAST MATERIAL Luc Faustin PA-C [address] [place] [address] [place] [address] Referral ID Status Reason Start Date Expiration Date V isits Requested Visits Authorized [id number] Closed Auto-Generat ed Referral Patient Cleared - Admin/Chairm an/Director advise to proceed or did not respond 09/05/2022 10/05/2022 1 [address] Specialty Diagnoses / Procedures Referred By Contac t Referred To Contact CT IMAGING Diagnoses Chest pain on breathing Procedures CT CHEST WO IVCON DIAGNOSTIC COMPUTED TOMOGRAPHY THORAX W/O CNTRST Luc Faustin PA-C [address] [place] [address] [facility] [place] [address] Referral ID Status Reason Start Date Expiration Date V isits Requested Visits Authorized [id number] Closed Auto-Generate d Referral 07/02/2023 07/31/2024 1 1 Specialty Diagnoses / Procedures Referred By Contac t Referred To Contact CT IMAGING Diagnoses Microscopic hematuria Procedures CT UROGRAM WO/W IVCON CT ABD & PELVIS W/O CONTRST 1+ BODY Evan Watson PA-C [address] [place] [address] [facility] [place] [address] Referral ID Status Reason Start Date Expiration Date V isits Requested Visits Authorized [id number] Closed Auto-Generate d Referral 08/27/2023 09/26/2023 1 1 Reason Comments Established Patient Follow-Up Reason Comments Established Patient Reason Comments Cough Cough, sinus congest ion, drainage and ear pain x 4 days Reason Comments Cystoscopy-1 Reason Comments Medication Problem Patient Question Reason Comments Insurance Authorization Reason Comments Trauma Right foot/ankle parish n, swelling x 1 day Reason Onset Date Comments Refill Request 06/30/2024 Reason Comments Patient Update Reason Comments Patient Question Reason Comments Thumb Pain RIGHT & hand x today Reason Comments Follow Up Reason Comments New Patient Specialty Diagnoses / Procedures Referred By Contac t Referred To Contact Vascular Medicine Diagnoses Pseudoaneurysm (HCC) Procedures CONSULT TO VASCULAR MEDICINE OFFICE/OUTPATIENT NEW HIGH MDM 60 MINUTES Sandy Holm, PULP GRINDER FEEDER.CIRCULAR RIPSAW OPERATOR [address] [place] [address] Referral ID Status Reason Start Date Expiration Date V isits Requested Visits Authorized [id number] Closed PCP Requested Referral 07/18/2024 07/18/2025 1 1 Reason Onset Date Comments Refill Request 08/24/2024 Reason Comments Patient Update Appointment Reason Comments Recheck 4 week follow up Reason Comments Blood Pressure Check 3 day follow up Reason Comments Skin Problem Pt states she had a biopsy yesterday and is taking brilinta, had her biopsy bandage changed today by her daughter and she realized it was still bleeding when she got home. Biopsy site still oozing small amount of blood under bandage Reason Onset Date Comments Refill Request 09/26/2024 Reason Onset Date Comments Refill Request 11/08/2024 Reason Comments Follow Up Reason Comments Follow Up Nodule Specialty Diagnoses / Procedures Referred By Thea cantu Referred To Contact Pulmonary and Critical Care Medicine Diagnoses Granulomatous lung disease (HCC) Procedures CONSULT TO PULM/CRITICAL CARE OFFICE/OUTPATIENT [facility] MDM 60 MINUTES Andre Santana MD [address] [place] [address] Referral ID Status Reason Start Date Expiration Date V isits Requested Visits Authorized [id number] Closed PCP Requested Referral 11/23/2024 11/23/2025 1 1 Reason Comments Received Outside Medical Records Reason Onset Date Comments Refill Request 12/26/2024 Reason Comments Results Chest CT Reason Comments Thyroid Nodule Specialty Diagnoses / Procedures Referred By Thea cantu Referred To Contact Endocrinology Diagnoses Thyroid nodule greater than or equal to 1 cm in diameter incidentally noted on imaging study Procedures CONSULT TO ENDOCRINOLOGY OFFICE/OUTPATIENT [facility] 60 MINUTES Andre Santana MD [address] [place] [address] Phone: tel: fax: Referral ID Status Reason Start Date Expiration Date V isits Requested Visits Authorized [id number] Closed PCP Requested Referral 11/28/2024 11/28/2025 1 1 Reason Comments Thyroid Nodule Requesting referral to endo surgery Reason Onset Date Comments Population Health Navigation Outreach 03/15/2025 Howie Brown Reason Onset Date Comments Refill Request 04/04/2025 Reason Comments 6 Month Exam Reason Onset Date Comments Results 04/22/2025 Reason Comments Consult New Patient Specialty Diagnoses / Procedures Referred By Thea cantu Referred To Contact Diagnoses Multiple thyroid nodules Procedures CONSULT TO ENDOCRINE SURGERY OFFICE/OUTPATIENT NEW HIGH MDM 60 MINUTES Tulio Calderón MD [address] [facility] [place] [address] Phone: tel: fax: Referral ID Status Reason Start Date Expiration Date V isits Requested Visits Authorized [id number] Closed PCP Requested Referral 03/07/2025 03/07/2026 1 1 Care Teams (unrecognized sec tion and content) Senior Linux Engineer Relationship Specialty Start Date End Date Andre Santana MD [address] [place] [address] PCP - General Family Practice 02/23/13 Senior Linux Engineer Relationship Specialty Start Date End Date Andre Santana MD [address] [place] [address] PCP - General Family Practice 02/23/13 Senior Linux Engineer Relationship Specialty Start Date End Date Andre Santana MD [address] [place] [address] PCP - General Family Practice 02/23/13 Senior Linux Engineer Relationship Specialty Start Date End Date Andre Santana MD [address] [place] [address] PCP - General Family Practice 02/23/13 Senior Linux Engineer Relationship Specialty Start Date End Date Andre Santana MD [address] [place] [address] PCP - General Family Practice 02/23/13 Senior Linux Engineer Relationship Specialty Start Date End Date Andre Santana MD [address] [place] [address] PCP - General Family Practice 02/23/13 Senior Linux Engineer Relationship Specialty Start Date End Date Andre Santana MD [address] [place] [address] PCP - General Family Practice 02/23/13 Senior Linux Engineer Relationship Specialty Start Date End Date Andre Santana MD [address] [place] [address] PCP - General Family Practice 02/23/13 Senior Linux Engineer Relationship Specialty Start Date End Date Andre Santana MD [address] [place] [address] PCP - General Family Practice 02/23/13 Senior Linux Engineer Relationship Specialty Start Date End Date Andre Santana MD [address] [place] [address] PCP - General Family Practice 02/23/13 Senior Linux Engineer Relationship Specialty Start Date End Date Andre Santana MD [address] [place] [address] PCP - General Family Medicine 02/23/13 Senior Linux Engineer Relationship Specialty Start Date End Date Andre Santana MD [address] [place] [address] PCP - General Family Medicine 02/23/13 Senior Linux Engineer Relationship Specialty Start Date End Date Andre Santana MD [address] [place] [address] PCP - General Family Medicine 02/23/13 Senior Linux Engineer Relationship Specialty Start Date End Date Andre Santana MD [address] [place] [address] PCP - General Family Medicine 02/23/13 Senior Linux Engineer Relationship Specialty Start Date End Date Andre Santana MD [address] [place] [address] PCP - General Family Medicine 02/23/13 Senior Linux Engineer Relationship Specialty Start Date End Date Andre Santana MD [address] [place] [address] PCP - General Family Medicine 02/23/13 Senior Linux Engineer Relationship Specialty Start Date End Date Andre Santana MD [address] [place] [address] PCP - General Family Medicine 02/23/13 Senior Linux Engineer Relationship Specialty Start Date End Date Andre Santana MD [address] [place] [address] PCP - General Family Medicine 02/23/13 Senior Linux Engineer Relationship Specialty Start Date End Date Andre Santana MD [address] [place] [address] PCP - General Family Medicine 02/23/13 Senior Linux Engineer Relationship Specialty Start Date End Date Andre Santana MD [address] [place] [address] PCP - General Family Medicine 02/23/13 Senior Linux Engineer Relationship Specialty Start Date End Date Andre Santana MD [address] [place] [address] PCP - General Family Medicine 02/23/13 Senior Linux Engineer Relationship Specialty Start Date End Date Andre Santana MD [address] [place] [address] PCP - General Family Medicine 02/23/13 Senior Linux Engineer Relationship Specialty Start Date End Date Andre Santana MD [address] [place] [address] PCP - General Family Medicine 02/23/13 Senior Linux Engineer Relationship Specialty Start Date End Date Andre Santana MD [address] [place] [address] PCP - General Family Medicine 02/23/13 Senior Linux Engineer Relationship Specialty Start Date End Date Andre Santana MD [address] [place] [address] PCP - General Family Medicine 02/23/13 Senior Linux Engineer Relationship Specialty Start Date End Date Andre Santana MD [address] [place] [address] PCP - General Family Medicine 02/23/13 Senior Linux Engineer Relationship Specialty Start Date End Date Andre Santana MD [address] [place] [address] PCP - General Family Medicine 02/23/13 Senior Linux Engineer Relationship Specialty Start Date End Date Andre Santana MD [address] [place] [address] PCP - General Family Medicine 02/23/13 Senior Linux Engineer Relationship Specialty Start Date End Date Andre Santana MD [address] [place] [address] PCP - General Family Medicine 02/23/13 Senior Linux Engineer Relationship Specialty Start Date End Date Andre Santana MD [address] [place] [address] PCP - General Family Medicine 02/23/13 Senior Linux Engineer Relationship Specialty Start Date End Date Andre Santana MD [address] [place] [address] PCP - General Family Medicine 02/23/13 Senior Linux Engineer Relationship Specialty Start Date End Date Andre Santana MD [address] [place] [address] PCP - General Family Medicine 02/23/13 Senior Linux Engineer Relationship Specialty Start Date End Date Andre Santana MD [address] [place] [address] PCP - General Family Medicine 02/23/13 Senior Linux Engineer Relationship Specialty Start Date End Date Andre Santana MD [address] [place] [address] PCP - General Family Medicine 02/23/13 Senior Linux Engineer Relationship Specialty Start Date End Date Andre Santana MD [address] [place], [place] [address] PCP - General Family Medicine 02/23/13 Senior Linux Engineer Relationship Specialty Start Date End Date Andre Santana MD [address] [place], [place] [address] PCP - General Family Medicine 02/23/13 Senior Linux Engineer Relationship Specialty Start Date End Date Andre Santana MD [address] [place], [place] [address] PCP - General Family Medicine 02/23/13 Senior Linux Engineer Relationship Specialty Start Date End Date Andre Santana MD [address] [place] [address] PCP - General Family Medicine 02/23/13 Senior Linux Engineer Relationship Specialty Start Date End Date Andre Santana MD [address] [place] [address] PCP - General Family Medicine 02/23/13 Senior Linux Engineer Relationship Specialty Start Date End Date Andre Santana MD [address] [place] [address] PCP - General Family Medicine 02/23/13 Senior Linux Engineer Relationship Specialty Start Date End Date Andre Santana MD [address] [place], [place] [address] PCP - General Family Medicine 02/23/13 Senior Linux Engineer Relationship Specialty Start Date End Date Andre Santana MD [address] [place], [place] [address] PCP - General Family Medicine 02/23/13 Senior Linux Engineer Relationship Specialty Start Date End Date Andre Santana MD [address] [place] [address] PCP - General Family Medicine 02/23/13 Senior Linux Engineer Relationship Specialty Start Date End Date Andre Santana MD [address] [place] [address] PCP - General Family Medicine 02/23/13 Senior Linux Engineer Relationship Specialty Start Date End Date Andre Santana MD [address] [place] [address] PCP - General Family Medicine 02/23/13 Senior Linux Engineer Relationship Specialty Start Date End Date Andre Santana MD [address] [place] [address] PCP - General Family Medicine 02/23/13 Senior Linux Engineer Relationship Specialty Start Date End Date Andre Santana MD [address] [place] [address] PCP - General Family Medicine 02/23/13 Senior Linux Engineer Relationship Specialty Start Date End Date Andre Santana MD [address] [place] [address] PCP - General Family Medicine 02/23/13 Senior Linux Engineer Relationship Specialty Start Date End Date Andre Santana MD [address] [place], [place] [address] PCP - General Family Medicine 02/23/13 Senior Linux Engineer Relationship Specialty Start Date End Date Andre Santana MD [address] [place], [place] [address] PCP - General Family Medicine 02/23/13 Senior Linux Engineer Relationship Specialty Start Date End Date Andre Santana MD [address] [place] [address] PCP - General Family Medicine 02/23/13 Senior Linux Engineer Relationship Specialty Start Date End Date Andre Santana MD [address] [place] [address] PCP - General Family Medicine 02/23/13 Senior Linux Engineer Relationship Specialty Start Date End Date Andre Santana MD [address] [place] [address] PCP - General Family Medicine 02/23/13 Senior Linux Engineer Relationship Specialty Start Date End Date Andre Santana MD [address] [place] [address] PCP - General Family Medicine 02/23/13 Senior Linux Engineer Relationship Specialty Start Date End Date Andre Santana MD [address] [place] [address] PCP - General Family Medicine 02/23/13 Senior Linux Engineer Relationship Specialty Start Date End Date Andre Santana MD [address] [place] [address] PCP - General Family Medicine 02/23/13 Senior Linux Engineer Relationship Specialty Start Date End Date Andre Santana MD [address] [place] [address] PCP - General Family Medicine 02/23/13 Senior Linux Engineer Relationship Specialty Start Date End Date Andre Santana MD [address] [place], [place] [address] PCP - General Family Medicine 02/23/13 Senior Linux Engineer Relationship Specialty Start Date End Date Andre Santana MD [address] [place] [address] PCP - General Family Medicine 02/23/13 Senior Linux Engineer Relationship Specialty Start Date End Date Andre Santana MD [address] [place] [address] PCP - General Family Medicine 02/23/13 Senior Linux Engineer Relationship Specialty Start Date End Date Andre Santana MD [address] [place] [address] PCP - General Family Medicine 02/23/13 Senior Linux Engineer Relationship Specialty Start Date End Date Andre Santana MD [address] [place] [address] PCP - General Family Medicine 02/23/13 Senior Linux Engineer Relationship Specialty Start Date End Date Andre Santana MD [address] [place] [address] PCP - General Family Medicine 02/23/13 Senior Linux Engineer Relationship Specialty Start Date End Date Andre Santana MD [address] [place] [address] PCP - General Family Medicine 02/23/13 Senior Linux Engineer Relationship Specialty Start Date End Date Andre Santana MD [address] [place] [address] PCP - General Family Medicine 02/23/13 Senior Linux Engineer Relationship Specialty Start Date End Date Andre Santana MD [address] [place] [address] PCP - General Family Medicine 02/23/13 Senior Linux Engineer Relationship Specialty Start Date End Date Andre Santana MD [address] [place] [address] PCP - General Family Medicine 02/23/13 Senior Linux Engineer Relationship Specialty Start Date End Date Andre Santana MD [address] [place] [address] PCP - General 04/10/20 Senior Linux Engineer Relationship Specialty Start Date End Date Andre Santana MD [address] [place] [address] PCP - General Family Medicine 02/23/13 Senior Linux Engineer Relationship Specialty Start Date End Date Andre Santana MD [address] [place] [address] PCP - General Family Medicine 02/23/13 Trang Philippe APRN.CIRCULAR RIPSAW OPERATOR [address] [place] [address] On Site Coordinator Family Medicine 10/17/24 Sandy Holm APRN.CIRCULAR RIPSAW OPERATOR [address] [place] [address] On Site Coordinator Family Medicine 10/17/24 Senior Linux Engineer Relationship Specialty Start Date End Date Andre Santana MD [address] [place] [address] PCP - General Family Medicine 02/23/13 Trang Philippe APRN.CIRCULAR RIPSAW OPERATOR [address] [place] [address] On Site Coordinator Family [facility] 10/17/24 Sandy Holm APRN.CIRCULAR RIPSAW OPERATOR [address] [place] [address] On Site Coordinator Family Medicine 10/17/24 Senior Linux Engineer Relationship Specialty Start Date End Date Andre Santana MD [address] [place] [address] PCP - General Family Medicine 02/23/13 Trang Philippe APRN.CIRCULAR RIPSAW OPERATOR [address] [place] [address] On Site Coordinator Family Medicine 10/17/24 Sandy Holm PULP GRINDER FEEDER.CIRCULAR RIPSAW OPERATOR [address] [place] [address] [place] 10/17/24 Senior Linux Engineer Relationship Specialty Start Date End Date Andre Santana MD [address] [facility] [place] [address] PCP - General Family Medicine 02/23/13 Trang Philippe PULP GRINDER FEEDER.CIRCULAR RIPSAW OPERATOR [address] [facility] [place] [address] [place] 10/17/24 Sandy Holm PULP GRINDER FEEDER.CIRCULAR RIPSAW OPERATOR [address] [facility] [place] [address] [place] 10/17/24 Senior Linux Engineer Relationship Specialty Start Date End Date Ander Santana MD [address] [place] [address] PCP - General Family Medicine 02/23/13 Trang Philippe, PULP GRINDER FEEDER.CIRCULAR RIPSAW OPERATOR [address] [place] [address] On Site Coordinator Family Medicine 10/17/24 Sandy Holm PULP GRINDER FEEDER.CIRCULAR RIPSAW OPERATOR [address] [place] [address] On Site Coordinator Family [facility] 10/17/24 Senior Linux Engineer Relationship Specialty Start Date End Date Andre Santana MD [address] [place] [address] PCP - General Family Medicine 02/23/13 Trang Philippe, PULP GRINDER FEEDER.CIRCULAR RIPSAW OPERATOR [address] [place] [address] On Site Coordinator Family Medicine 10/17/24 Sandy Holm PULP GRINDER FEEDER.CIRCULAR RIPSAW OPERATOR [address] [place] [address] [facility] 10/17/24 Senior Linux Engineer Relationship Specialty Start Date End Date Andre Santana MD [address] [place] [address] PCP - General Family Medicine 02/23/13 Trang Philippe, PULP GRINDER FEEDER.CIRCULAR RIPSAW OPERATOR [address] [place] [address] [facility] Family Medicine 10/17/24 Sandy Holm PULP GRINDER FEEDER.CIRCULAR RIPSAW OPERATOR [address] [place] [address] [facility] 10/17/24 Senior Linux Engineer Relationship Specialty Start Date End Date Andre Santana MD [address] [place] [address] PCP - General Family Medicine 02/23/13 Trang Philippe PULP GRINDER FEEDER.CIRCULAR RIPSAW OPERATOR [address] [facility] [place] [address] On Site Coordinator Family Medicine 10/17/24 Sandy Holm PULP GRINDER FEEDER.CIRCULAR RIPSAW OPERATOR [address] [place] [address] On Site Coordinator [facility] Medicine 10/17/24 Senior Linux Engineer Relationship Specialty Start Date End Date Andre Santana MD [address] [place] [address] PCP - General Family Medicine 02/23/13 Trang Philippe PULP GRINDER FEEDER.CIRCULAR RIPSAW OPERATOR [address] [facility] [place] [address] On Site Coordinator Family Medicine 10/17/24 Sandy Holm PULP GRINDER FEEDER.CIRCULAR RIPSAW OPERATOR [address] [place] [address] On Site Coordinator Family Medicine 10/17/24 Senior Linux Engineer Relationship Specialty Start Date End Date Andre Santana MD [address] [place] [address] PCP - General Family Medicine 02/23/13 Trang Philippe PULP GRINDER FEEDER.CIRCULAR RIPSAW OPERATOR [address] [facility] [place] [address] On Site Coordinator Family Medicine 10/17/24 Sandy Holm PULP GRINDER FEEDER.CIRCULAR RIPSAW OPERATOR [address] [place] [address] On Site Coordinator Family [facility] 10/17/24 Senior Linux Engineer Relationship Specialty Start Date End Date Andre Santana MD [address] [place] [address] PCP - General Family Medicine 02/23/13 Trang Philippe APRN.CIRCULAR RIPSAW OPERATOR [address] [place] [address] On Site Coordinator Family Medicine 10/17/24 Sandy Holm APRN.CIRCULAR RIPSAW OPERATOR [address] [place] [address] [place] 10/17/24 Senior Linux Engineer Relationship Specialty Start Date End Date Andre Santana MD [address] [place] [address] PCP - General Family Medicine 02/23/13 Trang Philippe, PULP GRINDER FEEDER.CIRCULAR RIPSAW OPERATOR [address] [place] [address] On Site Coordinator Family Medicine 10/17/24 Sandy Holm PULP GRINDER FEEDER.CIRCULAR RIPSAW OPERATOR [address] [place] [address] On Site Coordinator Family Medicine 10/17/24 Senior Linux Engineer Relationship Specialty Start Date End Date Andre Santana MD [address] [place] [address] PCP - General Family Medicine 02/23/13 Trang Philippe, PULP GRINDER FEEDER.CIRCULAR RIPSAW OPERATOR [address] [place] [address] On Site Coordinator Family Medicine 10/17/24 Sandy Holm PULP GRINDER FEEDER.CIRCULAR RIPSAW OPERATOR [address] [place] [address] [facility] 10/17/24 Senior Linux Engineer Relationship Specialty Start Date End Date Andre Santana MD [address] [facility] [place] [id number] PCP - General Family Medicine 02/23/13 Trang Philippe APRN.CIRCULAR RIPSAW OPERATOR [address] [facility] [place] [address] [facility] 10/17/24 Sandy Holm PULP GRINDER FEEDER.CIRCULAR RIPSAW OPERATOR [address] [facility] [place] [address] [facility] 10/17/24 Senior Linux Engineer Relationship Specialty Start Date End Date Andre Santana MD [address] [facility] [place] [place] [address] PCP - General Family Medicine 02/23/13 Trang Philippe, PULP GRINDER FEEDER.CIRCULAR RIPSAW OPERATOR [address] [facility] [place] [address] [facility] 10/17/24 Sandy Holm PULP GRINDER FEEDER.CIRCULAR RIPSAW OPERATOR [address] [place] [address] [facility] 10/17/24 Senior Linux Engineer Relationship Specialty Start Date End Date Andre Santana MD [address] [facility] [place] [place] [address] [phone] PCP - General Family Medicine 02/23/13 Trang Philippe, PULP GRINDER FEEDER.CIRCULAR RIPSAW OPERATOR [address] [place], [place] [id number] [facility] 10/17/24 Sandy Holm PULP GRINDER FEEDER.CIRCULAR RIPSAW OPERATOR [address] [place], [place] [address] [facility] 10/17/24 Senior Linux Engineer Relationship Specialty Start Date End Date Andre Santana MD [address] [place], [place] [address] PCP - [facility] 02/23/13 Trang Philippe, PULP GRINDER FEEDER.CIRCULAR RIPSAW OPERATOR [address] [place], [place] [address] [facility] 10/17/24 Sandy Holm, PULP GRINDER FEEDER.CIRCULAR RIPSAW OPERATOR [address] [place], [place] [id number] [facility] 10/17/24 Team Status: Active Member Role Status Dates Dr. Andre Santana MD Primary Care Provider Active Team Status: Inactive Member Role Status Dates Dr. Andre Santana MD Primary Care Provider Active Start: October 10, 2024 End: October 10, 2024 Dr. Rocio Hilario MD Attending Provider Active S tart: October 10, 2024 End: October 10, 2024 Dr. Rocio Hilario MD Referring Provider Active S tart: October 10, 2024 End: October 10, 2024 MAREN RHODES MD Other Provider Active Start: October 10, 2024 End: October 10, 2024 Team Status: Inactive Member Role Status Dates Dr. Andre Santana MD Primary Care Provider Active Start: October 17, 2024 End: October 17, 2024 Darshan Abarca MD Attending Provider Active Star t: October 17, 2024 End: October 17, 2024 Darshan Abarca MD Referring Provider Active Star t: October 17, 2024 End: October 17, 2024 Team Status: Inactive Member Role Status Dates Dr. Andre Santana MD Primary Care Provider Active Start: November 07, 2024 End: November 08, 2024 Darshan Abarca MD Attending Provider Active Star t: November 07, 2024 End: November 08, 2024 Team Status: Inactive Member Role Status Dates Dr. Andre Santana MD Primary Care Provider Active Start: December 09, 2024 End: December 09, 2024 Darshan Abarca MD Attending Provider Active Star t: December 09, 2024 End: December 09, 2024 Team Status: Inactive Member Role Status Dates Dr. Andre Santana MD Primary Care Provider Active Start: January 06, 2025 End: January 06, 2025 Darshan Abarca MD Attending Provider Active Star t: January 06, 2025 End: January 06, 2025 Team Status: Inactive Member Role Status Dates Dr. Andre Santana MD Primary Care Provider Active Start: January 13, 2025 End: February 06, 2025 Darshan Abarca MD Attending Provider Active Star t: January 13, 2025 End: February 06, 2025 Darshan Abarca MD Referring Provider Active Star t: January 13, 2025 End: February 06, 2025 Senior Linux Engineer Relationship Specialty Start Date End Date Andre Santana MD [address] [place], [place] [id number] PCP - General Family Medicine 02/23/13 Trang Philippe, PULP GRINDER FEEDER.CIRCULAR RIPSAW OPERATOR [address] [place], [place] [address] On Site Coordinator Family Medicine 10/17/24 Sandy Holm PULP GRINDER FEEDER.CIRCULAR RIPSAW OPERATOR [address] [place], [place] [address] On Site Coordinator Family Medicine 10/17/24 Senior Linux Engineer Relationship Specialty Start Date End Date Andre Santana MD [address] [place] [address] PCP - General Family Medicine 02/23/13 Trang Philippe APRN.CIRCULAR RIPSAW OPERATOR [address] [place] [address] On Site Coordinator Family Medicine 10/17/24 Sandy Holm APRN.CIRCULAR RIPSAW OPERATOR [address] [place] [address] On Site Coordinator Family Medicine 10/17/24 Senior Linux Engineer Relationship Specialty Start Date End Date Andre Santana MD [address] [place] [address] PCP - General Family Medicine 02/23/13 Trang Philippe APRN.CIRCULAR RIPSAW OPERATOR [address] [place] [address] On Site Coordinator Family Medicine 10/17/24 Sandy Holm APRN.CIRCULAR RIPSAW OPERATOR [address] [place] [address] On Site Coordinator [facility] 10/17/24 Senior Linux Engineer Relationship Specialty Start Date End Date Andre Santana MD [address] [place] [address] PCP - General Family Medicine 02/23/13 Trang Philippe APRN.CIRCULAR RIPSAW OPERATOR [address] [place] [address] On Site Coordinator Family Medicine 10/17/24 Sandy Holm APRN.CIRCULAR RIPSAW OPERATOR [address] [place] [address] On Site Coordinator Family Medicine 10/17/24 Inactive Administered Medications - up to 3 most recent administrations Administered Medications (un recognized section and content) Medication Order MAR Action Action Date Dose Rate Site cephALEXin 500 mg cap(s) (KEFLEX) 500 mg, ORAL, ONCE, 1 dose, On Thu02/22/24 at 1500, Antimicrobial indication: Empiric Given 02/22/2024 2:31 PM EDT 500 mg lidocaine urojet 2 % 6 mL topical gel (GLYDO) 6 mL, URETHRAL, ONCE (UP TO 30 DAYS AMB), 1 dose, On Thu02/22/24 at 1500, FOR EXTERNAL USE ONLY APPLY TO: 6 ml Given 02/22/2024 2:40 PM EDT 6 mL Scheduled Active and Recently Administ ered Medications (unrecognized section and content) Medication Order 09/18/2024 09/19/2024 09/20/2024 silver nitrate applicators applicator Topical, Once, On Thu09/20/24 at 2124, For 1 dose, Apply to biopsy sight 2124 (Due)2155 (Hand off - Provider: Misty Tatum RN - Comment: given to ) Goals (unrecognized section and content) Goals may be documented in a n alternate section FOR RECORDS PERTAINING TO PATIENTS WHO ARE OR HAVE BEEN ENROLLED IN A CHEMICAL DEPENDENCY/SUBSTANCEABUSE PROGRAM, SOME INFORMATION MAY BE OMITTED. This clinical summary was aggregated from multiple sources. Caution should be exercised in using it in the provision of clinical care. This summary normalizes information from multiple sources, and as a consequence, information in this document may materially change the coding, format and clinical context of patient data. In addition, data may be omitted in some cases. CLINICAL DECISIONS SHOULD BE BASED ON THE PRIMARY CLINICAL RECORDS. [facility]. provides no warranty or guarantee of the accuracy or completeness of information in this document.
--- NOTE | 2025-06-05 07:38 | ED.RN ---
Dr. Gray notified that pt. and pt. daughter are concerned that she is very confused, does not understand why shes here. Pt. is answering questions appropriately.
--- NOTE | 2025-06-05 07:42 | CT_ITS ---
EXAM: NONCONTRAST CT SCAN OF THE HEAD CLINICAL HISTORY: Confusion COMPARISON: None TECHNIQUE: Serial axial series through the head were obtained without contrast. 2-D coronal and sagittal reformats were then obtained. FINDINGS: Brain: There is no acute large territorial infarct, intracranial hemorrhage, midline shift or mass effect. There are atherosclerotic vascular calcifications involving the bilateral carotid siphons. The sella and pineal gland regions appear unremarkable. There is no evidence of cerebellar tonsillar herniation. Ventricles: There is no acute hydrocephalus. Basilar cisterns are patent. Paranasal sinuses: Mucosal thickening is noted in the sphenoid sinus. Mastoid air cells: Well-aerated. Calvarium: The bony calvarium is intact. Orbits: The bilateral globes are symmetric, without retrobulbar compressive mass lesion or hemorrhage. CT/Brain/Head without Contrast IMPRESSION: Mucosal thickening is noted in the sphenoid sinus. No acute intracranial pathology. Reading Location[facility]
[2025-06-05 08:04] LABS: Troponin T High Sens 2 HR 13 ng/L (<=14)
[2025-06-05 08:18] LABS: Mucous, Urine 0 SEEN /hpf (<or=2+); Squamous Epithelial Cells - UA 0 SEEN /hpf (5-10)
[2025-06-05 08:20] LABS: Color, Urine Yellow (Yellow); Glucose, Dipstick Normal (Normal); Ketone-Dipstick Negative (Negative); Leukocyte Esterase-Dipstick 25 /ul (Negative); Nitrite-Dipstick Negative (Negative); Occult Blood-Urine 250 /ul (Negative); Protein-Dipstick 30 mg/dl (Negative); Specific Gravity, Urine 1.010 (1.002-1.030); Urine Bilirubin Dipstick Negative (Negative)
[2025-06-05 08:27] LABS: Red Blood Cells-Urine 10-25 SEEN /hpf (0-5)
--- NOTE | 2025-06-05 11:22 | PCM.HP.STD ---
HPI - General General Date of Admission: 06/05/25 HPI Narrative KELSEY SHEEHAN, is a 79 F who presents to the hospital with palpitations and chest pain. EKG was nonischemic and initial troponin was 9 with subsequent troponin of 13. From a chest pain standpoint she was feeling much better however family noticed that she was little bit confused which is new from yesterday. This is likely due to sleep deprivation as she did not sleep at all last night. UA was unremarkable and chest x-ray was negative for pneumonia. Skin exam does not show any signs of cellulitis and her confusion has resolved however she lives in [place] and the family lives here in [place] and no one can stay with her and so they are concerned about her going home and would like her to be observed overnight. She is afebrile without a leukocytosis and lab work is unremarkable other than a creatinine of 1.33 with GFR of 41 which is at baseline. [facility] Medical History Myocardial infarct Chest pain Hypertension Home Medications ?Medication ?Instructions ?Recorded ?Last Taken ?Type aspirin 81 mg tablet,delayed 81 mg PO DAILY 11/24/18 02/28/25 History release (Aspir-) carvedilol 6.25 mg tablet 6.25 mg PO Q12H 02/28/25 02/28/25 History clopidogrel 75 mg tablet 75 mg PO DAILY 02/28/25 02/27/25 History losartan 100 mg tablet 100 mg PO DAILY 02/28/25 02/28/25 History rosuvastatin 10 mg tablet 10 mg PO QHS 02/28/25 02/27/25 History Allergy/AdvReac Type Severity Reaction Status Date / Time adhesive tape Allergy Itching Verified 06/05/25 05:42 amlodipine (From Norvasc) Allergy Swelling Verified 06/05/25 05:42 cat dander Allergy Unknown Verified 06/05/25 05:42 cigarette smoke Allergy Other Verified 06/05/25 05:42 metoprolol (From Lopressor) Allergy Unknown Verified 06/05/25 05:42 nickel Allergy Rash Verified 06/05/25 05:42 naproxen (From Aleve) AdvReac Nausea/Vom/ Verified 06/05/25 05:42 Diarrhea rofecoxib (From Vioxx) AdvReac Upset Verified 06/05/25 05:42 Stomach Sulfa (Sulfonamide AdvReac Other Verified 06/05/25 05:42 Antibiotics) Family History (Updated 06/05/25 @ 11:[address] Alin Helm MD) Other Heart disease Surgical History History of coronary artery stent placement Social History housing: house Smoking Status: Former smoker ROS Constitutional Constitutional: Denies chills, fatigue, fever(s) or malaise Eyes Eyes: Denies blurry vision ENT HEENT: Denies headache(s) or nasal discharge Cardiovascular Cardiovascular: Reports chest pain and palpitations; Denies dyspnea on exertion or syncope Respiratory/Chest Respiratory/Chest: Denies cough, shortness of breath at rest or shortness of breath with exertion Gastrointestinal Gastrointestinal: Denies constipation, diarrhea, nausea or vomiting Genitourinary Genitourinary: Denies dysuria Neurologic Neurologic: Reports confusion; Denies focal weakness, numbness or tremor(s) Psychiatric Psychiatric: Denies anxiety or depression Vital Signs Vital Signs Vital Signs: 06/05/25 05:37 06/05/25 05:42 06/05/25 05:49 Temperature 98.6 F Temperature Source Oral Pulse Rate 96 Respiratory Rate 18 Respiratory Effort Short of Breath Blood Pressure 188/108 H Blood Pressure Mean 134 Pulse Ox 96 99 Oxygen Delivery Method Room Air Room Air 06/05/25 06:00 06/05/25 06:56 06/05/25 08:00 Temperature Temperature Source Pulse Rate 76 84 88 Respiratory Rate 16 17 17 Respiratory Effort Blood Pressure 184/95 H 179/82 H 165/89 H Blood Pressure Mean 124 114 114 Pulse Ox 99 99 100 Oxygen Delivery Method Room Air Room Air 06/05/25 09:00 06/05/25 10:00 06/05/25 10:56 Temperature 97 F L Temperature Source Pulse Rate 79 75 81 Respiratory Rate 13 17 Respiratory Effort Blood Pressure 149/81 H 148/80 H 159/82 H Blood Pressure Mean 103 102 107 Pulse Ox 97 97 Oxygen Delivery Method Room Air 06/05/25 11:19 Temperature 97.7 F L Temperature Source Temporal Pulse Rate 77 Respiratory Rate 18 Respiratory Effort Blood Pressure 160/77 H Blood Pressure Mean 104 Pulse Ox 98 Oxygen Delivery Method Room Air Weight Weight: 185 lb 10.067 oz Body Mass Index (BMI) 37.5 Physical Exam Narrative General: Alert, Oriented x3, Cooperative, No apparent distress HEENT: Atraumatic, PERRLA, EOMI, Normocephalic Oral: Moist Mucosa Neck: Supple, No JVD Lungs: Diminished, Normal air movement, No rhonchi, No wheeze, No rales Cardiovascular: Regular rate, Regular Rhythm, Normal S1, Normal S2, No murmurs Abdomen: Soft, Non Tender, Non-Distended, No Hepato-splenomegaly Extremities: No edema, Capillary Refill Less than 3 Seconds Skin: No rashes, No breakdown Musculoskeletal: No Tenderness to Palpation of Joints or Extremities Neurological: No focal neurological deficits, Motor Exam 5/5 strength throughout, Sensory exam intact to light touch and pain Psych/Mental Status: Normal Affect, Appropriate Results Lab / Micro Data 06/05/25 05:41 06/05/25 05:41 Labs: Laboratory Results - last 24 hr 06/05/25 05:41: WBC 7.8, RBC 5.13, Hgb 14.2, Hct 44.6, MCV 86.9, MCH 27.7, MCHC 31.8 L, RDW Std Deviation 42.9, RDW Coeff of Barb 13.4, Plt Count 189, MPV 10.6, Immature Gran % (Auto) 0.300, Neut % (Auto) 54.6, Lymph % (Auto) 28.9, [place] % (Auto) 13.2 H, Eos % (Auto) 2.6, Baso % (Auto) 0.4, Absolute Neuts (auto) 4.2, Absolute Lymphs (auto) 2.24, Nucleated RBC % 0, Sodium 138, Potassium 3.8, Chloride 102, Carbon Dioxide 21.1, Anion Gap 15, BUN 24 H, Creatinine 1.33 H, Estim Creat Clear Calc 33.56 L, Est GFR (MDRD) Non-Af 41 L, BUN/Creatinine Ratio 17.7, Glucose 123 H, Calcium 9.2, Troponin T High Sens 9 D 06/05/25 07:37: Troponin T Hi Sens 2 Hr 13 06/05/25 08:11: Urine Color Yellow, Urine Clarity Clear, Urine pH 6.0, Ur Specific [place] 1.010, Urine Protein 30 H, Urine Glucose (UA) Normal, Urine Ketones Negative, Urine Occult Blood 250 H, Urine Nitrite Negative, Urine Bilirubin Negative, Urine Urobilinogen Normal, Ur Leukocyte Esterase 25 H, Urine RBC 10-25 SEEN, Urine WBC 0 SEEN, Ur Squamous Epith Cells 0 SEEN, Urine Bacteria 0 SEEN, Urine Mucus 0 SEEN Micro: Microbiology 06/05/25 07:53 Mucosa - Nose SARS-CoV-2, Influenza & RSV (PCR) - Final Rhythm Strip Rhythm Strip: Sinus Rhythm Rate: 95 Ectopy: None Imaging Radiology Impression Chest X-Ray 06/05/25 06:00 IMPRESSION: There is blunting of the costophrenic angle on the left consistent with a trace effusion or scar, unchanged. Reading Location: [facility] 06/05/25 07:42 IMPRESSION: Mucosal thickening is noted in the sphenoid sinus. No acute intracranial pathology. Reading [facility] Assessment & Plan Assessment/Plan (1) Palpitations: (2) Confusion: PLAN: Plan 1. Confusion ? This has resolved however family still concerned and would like her observed overnight ? Infectious workup is negative with a normal UA and a normal chest x-ray, viral studies are also negative ? No leukocytosis or fever ? Will monitor overnight and potentially discharge in the morning 2. Palpitations with chest pain/CAD status post stent/essential HTN ? Will continue with her home blood pressure medications and her aspirin and Plavix ? Unclear if she takes Crestor or losartan as these have not been verified on her home med list ? Will monitor and make adjustments as necessary ? No further workup she can follow-up with her landscape architecture teacher as an outpatient as her troponins have remained negative and she is no longer having any chest pain DVT: Lovenox Charges/Coding Visit Charges Inpatient E&M: 08124 Init Hosp L2
--- NOTE | 2025-06-05 13:32 | CASEMGMT ---
Care Management Face to Face with patient for initial transition planning/care coordination assessment in the ED.? This repairer typewriter introduced self and role at [facility]. Patient alert and oriented. Patient willing to participate in assessment and is able to answer all questions appropriately.? Care providers, pharmacy, and demographics verified. Admitting Diagnosis: Confusion Other diagnosis history: ?myocardial infarct PCP: ??Cee Specialists: ?Tevin, Cardiology, Stephane Preferred Pharmacy: [facility] Insurance: ?[employer] Prescription Benefit: ?Yes Living Will/HPOA: ?Does not have completed, may want to complete while at [facility] LNOK: ?Daughter, Amy Living Arrangements: ?patient lives alone in a mobile home, reports to being independent with ADLs and IADLs Transportation: ?patient drives DME: walker, cane, shower chair, grab bars, blood pressure cuff, pulse ox HHC: ?Used [facility] in past SNF/Rehab: ?None Community Resources: ?Uses the [employer] for meals Behavioral Health History: ?Anxiety and depression, has Ativan PRN Patient goals: Patient wishes to discharge home, denies need for home health care at this time. Patient denies any further needs or concerns at this time. Disposition Plan: admission to acute; RN CM/SW to follow for discharge planning needs that may arise. Maricruz Israel, TECHNICIAN PREVENTATIVE MEDICINE, LINEN TECH
[2025-06-05 14:22] LABS: Troponin T High Sens 4 HR 12 ng/L (<=14)
--- NOTE | 2025-06-05 15:18 | CASEMGMT ---
Social Work SW met w/pt, pt completed LW/POA w/SW, pt named daughter Manoj Whitlock as healthcare POA. SW gave pt originals and copies, and copies placed on the chart. EDUARDA Potter
[2025-06-05] MEDS: 0.9% Saline Lock 10 ML Syringe IV (19:55)
[2025-06-05] MEDS: Aspirin E.C. 81 MG Tablet PO (19:57)
[2025-06-06 02:30] VITALS: BP 130/72; PULSE 65; RESP 14; TEMP 36.6; O2SAT 98
[2025-06-06 03:59] VITALS: BP 135/60; PULSE 64; RESP 14; TEMP 36.9; O2SAT 95
[2025-06-06 07:30] LABS: Hematocrit 38.7 % (37-47); Hemoglobin 12.5 g/dL (12.0-15.0); Immature Granulocytes Count 0.010 X10^3/uL (0.0-0.0); Mean Corp Hgb Conc 32.3 g/dL (32-36); Mean Corpuscular Volume 86.0 fL (81-99); Mean Platelet Vol. 11.1 fl (6.2-12.0); NRBC Flagged by Analyzer 0 % (0-5); Platelet Count 165 K/mm3 (150-450); RBC Distribution Width CV 13.6 % (11.6-14.6); RBC Distribution Width SD 42.2 fl (35.1-43.9); Red Blood Count 4.50 M/mm3 (4.2-5.4); White Blood Count 5.7 K/mm3 (4.4-11.0)
[2025-06-06 07:59] LABS: Anion Gap 11 (5-15); BUN 24 mg/dL (4-19); BUN/Creat Ratio 20.2 RATIO (10-20); Calcium,Total 8.9 mg/dL (7.6-11.0); Carbon Dioxide 23.3 mmol/L (21.0-32.0); Chloride 105 mmol/L (98-108); Estimated Creatinine Clearance 37.65 ml/min (50-250); Glucose 103 mg/dL (70-99); Potassium 4.3 mmol/L (3.3-5.1)
[2025-06-06 09:30] VITALS: BP 131/70; PULSE 74; RESP 14; TEMP 36.6; O2SAT 96
--- NOTE | 2025-06-06 09:53 | DCINST_ITS ---
Discharge Instructions DC O2, CPAP, BIPAP needs Home O2 Discharge instructions: No Dressing / Incision Discharge Activity: Return to Normal Activity Dressing / Incision Call your doctor if you observe: Fever of 101 or Higher, Shortness of breath, Dizziness, Fainting spells, Swelling in the ankles, Chest pain and Increased palpitations (irregular heartbeat) Follow Up Care Test Results: Test results from this visit will be discussed in further detail at your follow- up appointment, if applicable. Discharge Plan Admission Admit Date/Time: 06/05/25 10:34 Attending Provider: Alin Helm Primary Care Provider: Thaddeus Mike Instructions Patient Instructions: ED Chest Pain, Uncertain Cause, ED Palpitations Discharge Orders/Prescriptions Prescriptions: Continued aspirin [Aspir-81] 81 MG tablet,delayed release (DR/EC) 81 mg PO DAILY carvedilol 6.25 mg tablet 6.25 mg PO Q12H Patient Comments: [NO ORIGINAL SIG] clopidogrel 75 mg tablet 75 mg PO DAILY losartan 100 mg tablet 100 mg PO DAILY rosuvastatin 10 mg tablet 10 mg PO QHS Referrals / Follow Up: Thaddeus Mike MD [Primary Care Provider] - As soon as possible (Or your heart doctor) Disposition Disposition (needs filled in before D/C Order can be placed): Home, Self Care
--- NOTE | 2025-06-06 10:07 | PHA.DC.MR.R ---
Pharmacy [place] Med Reconciliation Pharmacy Service has performed discharge medication reconciliation for this patient. The patient's discharge medication list was reviewed for discrepancies and discrepancies were resolved. Medications at Discharge Home Medications aspirin 81 mg tablet,delayed release (Aspir-) 81 mg PO DAILY heart health 11/24/18 carvedilol 6.25 mg tablet 6.25 mg PO Q12H blood pressure 02/28/25 clopidogrel 75 mg tablet 75 mg PO DAILY anti platelet 02/28/25 losartan 100 mg tablet 100 mg PO DAILY blood pressure 02/28/25 rosuvastatin 10 mg tablet 10 mg PO QHS cholesterol 02/28/25
--- NOTE | 2025-06-06 10:13 | CASEMGMT ---
Patient has order for discharge. RN CM in to discuss needs at discharge. Patient denies needs or help at discharge. Patient had no further questions or concerns.
--- NOTE | 2025-06-06 10:50 | DS.PCM_ITS ---
Providers Date of Admission: 06/05/25 Primary Care Physician: Dr. Thaddeus Mike MD Reason For Visit: CONFUSION Diagnosis Discharge Diagnosis (1) Palpitations: Status: Acute Code(s): R00.2 - Palpitations (2) Confusion: Status: Acute Code(s): R41.0 - Disorientation, unspecified Medications at Discharge Home Medications aspirin 81 mg tablet,delayed release (Aspir-) 81 mg PO DAILY heart health 11/24/18 carvedilol 6.25 mg tablet 6.25 mg PO Q12H blood pressure 02/28/25 clopidogrel 75 mg tablet 75 mg PO DAILY anti platelet 02/28/25 losartan 100 mg tablet 100 mg PO DAILY blood pressure 02/28/25 rosuvastatin 10 mg tablet 10 mg PO QHS cholesterol 02/28/25 Hospital Course Operations None Procedures None Summary of Care Provided Minutes Spent on Discharge: 32 Hospital Course: Per HPI: KELSEY SHEEHAN, is a 79 F who presents to the hospital with palpitations and chest pain. EKG was nonischemic and initial troponin was 9 with subsequent troponin of 13. From a chest pain standpoint she was feeling much better however family noticed that she was little bit confused which is new from yesterday. This is likely due to sleep deprivation as she did not sleep at all last night. UA was unremarkable and chest x-ray was negative for pneumonia. Skin exam does not show any signs of cellulitis and her confusion has resolved however she lives in [place] and the family lives here in [place] and no one can stay with her and so they are concerned about her going home and would like her to be observed overnight. She is afebrile without a leukocytosis and lab work is unremarkable other than a creatinine of 1.33 with GFR of 41 which is at baseline. Hospital Course: 1. Confusion with palpitations?79-year-old female presented to hospital with palpitations and some mild chest discomfort, troponins were unremarkable and EKG remained nonischemic. Her confusion had resolved by the time I evaluated her in the ER and there is no obvious source, as UA was not infectious and chest x-ray did not show pneumonia. Viral studies were also normal. Family requested that she stay overnight for monitoring and this morning if she is doing well with no confusion. I discussed with her the plan for discharge today and she expressed understanding of the risks and benefits of going home and would like to go home today. 2. Coronary artery disease status post stents, essential hypertension her chronic medical conditions which complicate her care. Her home medications were continued where appropriate Physical Exam Narrative General: Alert, Oriented x3, Cooperative, No apparent distress HEENT: Atraumatic, PERRLA, EOMI, Normocephalic Oral: Moist Mucosa Neck: Supple, No JVD Lungs: Diminished, Normal air movement, No rhonchi, No wheeze, No rales Cardiovascular: Regular rate, Regular Rhythm, Normal S1, Normal S2, No murmurs Abdomen: Soft, Non Tender, Non-Distended, No Hepato-splenomegaly Extremities: No edema, Capillary Refill Less than 3 Seconds Skin: No rashes, No breakdown Musculoskeletal: No Tenderness to Palpation of Joints or Extremities Neurological: No focal neurological deficits, moves all extremities, sensation intact Psych/Mental Status: Normal Affect, Appropriate Weight / BMI Weight Weight: 181 lb 3.52 oz Body Mass Index (BMI) 36.6 ABG / Lab / Microbiology Data 06/06/25 06:06 06/06/25 06:06 Laboratory: Laboratory Results - last 24 hr 06/05/25 13:05: Troponin T Hi Sens 4Hr 12 06/06/25 06:06: WBC 5.7, RBC 4.50, Hgb 12.5, Hct 38.7, MCV 86.0, MCH 27.8, MCHC 32.3, RDW Std Deviation 42.2, RDW Coeff of Barb 13.6, Plt Count 165, MPV 11.1, Immature Gran % (Auto) 0.200, Neut % (Auto) 54.5, Lymph % (Auto) 30.0, [place] % (Auto) 13.4 H, Eos % (Auto) 1.4, Baso % (Auto) 0.5, Absolute Neuts (auto) 3.1, Absolute Lymphs (auto) 1.72, Nucleated RBC % 0, Sodium 139, Potassium 4.3, Chloride 105, Carbon Dioxide 23.3, Anion Gap 11, BUN 24 H, Creatinine 1.17, E stim Creat Clear Calc 37.65 L, Est GFR (MDRD) Non-Af 48 L, BUN/Creatinine Ratio 20.2 H, Glucose 103 H, Calcium 8.9 Microbiology: Microbiology 06/05/25 07:53 Mucosa - Nose SARS-CoV-2, Influenza & RSV (PCR) - Final D/C Instructions Call your doctor if you observe: Fever of 101 or Higher, Shortness of breath, Dizziness, Fainting spells, Swelling in the ankles, Chest pain and Increased palpitations (irregular heartbeat) DC O2, CPAP, BIPAP Needs Home O2 Discharge instructions: No Meaningful Use Info Meaningful Use Meaningful Use Diagnoses (Choose all that apply): None applicable Discharge Plan Admission Admit Date/Time: 06/05/25 10:34 Attending Provider: Alin Helm Primary Care Provider: Thaddeus Mike Instructions Patient Instructions: ED Chest Pain, Uncertain Cause, ED Palpitations Discharge Orders/Prescriptions Prescriptions: Continued aspirin [Aspir-81] 81 MG tablet,delayed release (DR/EC) 81 mg PO DAILY carvedilol 6.25 mg tablet 6.25 mg PO Q12H Patient Comments: [NO ORIGINAL SIG] clopidogrel 75 mg tablet 75 mg PO DAILY losartan 100 mg tablet 100 mg PO DAILY rosuvastatin 10 mg tablet 10 mg PO QHS Referrals / Follow Up: Thaddeus Mike MD [Primary Care Provider] - As soon as possible (Or your heart doctor) Disposition Disposition (needs filled in before D/C Order can be placed): Home, Self Care Charges/Coding Visit Charges Inpatient E&M: 27888 Disch Hosp >30min
[2025-06-06 12:04] VITALS: BP 116/61; PULSE 63; RESP 16; TEMP 36.9; O2SAT 97
== END 2025-06-06 13:13 | disposition home or self-care (01) ==
LOC: ED 06:30 → PCU 10:55
PROVIDERS: Admitting Provider Family Medicine; Emergency Provider Emergency Medicine; PCP Family Medicine; Visit Provider Family Medicine
DX: R00.2 Palpitations (principal); R07.89 Other chest pain; R41.0 Disorientation, unspecified; Z79.82 Long term (current) use of aspirin; I10 Essential (primary) hypertension; Z87.891 Personal history of nicotine dependence; I25.10 Atherosclerotic heart disease of native coronary artery without angina pectoris; R06.02 Shortness of breath; Z79.02 Long term (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 antithrombotics/antiplatelets; Z79.899 Other long term (current) drug therapy; I25.2 Old myocardial infarction
CPT/HCPCS: 36415; 70450; 71045; 80048; 81001; 84484; 85025; 87631; 93005; 99221; 99284; A4216; G0378

== ENCOUNTER 2025-07-07 19:09 | Emergency (ER) | payer MEDICARE, SELFPAY ==
[2025-01-12 08:29] VITALS: BMI 35.3
[2025-07-07 19:11] VITALS: BP 171/88; PULSE 88; RESP 16; TEMP 36.8; O2SAT 99; BMI 36.7
[2025-07-07 19:12] VITALS: BP 161/81; PULSE 74; RESP 16; TEMP 37; O2SAT 97
[2025-07-07 19:43] LABS: Hematocrit 41.5 % (37-47); Hemoglobin 13.4 g/dL (12.0-15.0); Immature Granulocytes Count 0.030 X10^3/uL (0.0-0.0); Mean Corp Hgb Conc 32.3 g/dL (32-36); Mean Corpuscular Volume 86.6 fL (81-99); Mean Platelet Vol. 10.5 fl (6.2-12.0); NRBC Flagged by Analyzer 0 % (0-5); Platelet Count 168 K/mm3 (150-450); RBC Distribution Width CV 13.4 % (11.6-14.6); RBC Distribution Width SD 42.5 fl (35.1-43.9); Red Blood Count 4.79 M/mm3 (4.2-5.4); White Blood Count 8.8 K/mm3 (4.4-11.0)
--- NOTE | 2025-07-07 20:02 | ED.RN ---
c/o large amouts of blood in urine for 2 days. pt is on plavix. no pain on urination, but history of kidney stones
--- NOTE | 2025-07-07 20:09 | EDS_ITS ---
HPI History of Present Illness Chief Complaint: Flank Pain Informant: patient Onset/Context/Timing Onset: Yesterday Context: Gradual Onset Timing: Continuous Quality: Dark blood Location: Urine Worsened by: Nothing Relieved by: Nothing Narrative Narrative: Patient presents with hematuria that began yesterday. Patient states it is gradually gotten worse. Patient states it is red blood in her urine. Patient states nothing makes it worse and nothing makes it better. Patient denies any dysuria or frequency. Patient admits to some nausea but denies any vomiting. Patient admits to some pain into her back. Patient admits to occasional shortness of breath but currently denies any shortness of breath. Patient denies any chest pain. Patient denies any fevers or chills. [facility] Medical History Myocardial infarct Chest pain Hypertension Home Medications ?Medication ?Instructions ?Recorded ?Last Taken ?Type aspirin 81 mg tablet,delayed 81 mg PO DAILY heart heal th 11/24/18 02/28/25 History release (Aspir-) carvedilol 6.25 mg tablet 6.25 mg PO Q12H blood pressu re 02/28/25 02/28/25 History clopidogrel 75 mg tablet 75 mg PO DAILY anti platelet 02/28/25 02/27/25 History losartan 100 mg tablet 100 mg PO DAILY blood pressu re 02/28/25 02/28/25 History rosuvastatin 10 mg tablet 10 mg PO QHS cholesterol 02/27/25 History Allergy/AdvReac Type Severity Reaction Status Date / Time adhesive tape Allergy Itching Verified 07/07/25 19:11 amlodipine (From Norvasc) Allergy Swelling Verified 07/07/25 19:11 cat dander Allergy Unknown Verified 07/07/25 19:11 cigarette smoke Allergy Other Verified 07/07/25 19:11 metoprolol (From Lopressor) Allergy Unknown Verified 07/07/25 19:11 nickel Allergy Rash Verified 07/07/25 19:11 naproxen (From Aleve) AdvReac Nausea/Vom/ Verified 07/07/25 19:11 Diarrhea rofecoxib (From Vioxx) AdvReac Upset Verified 07/07/25 19:11 Stomach Sulfa (Sulfonamide AdvReac Other Verified 07/07/25 19:11 Antibiotics) Family History (Updated 06/05/25 @ 11:[address] Alin Helm MD) Other Heart disease Surgical History History of coronary artery stent placement Social History housing: house Smoking Status: Former smoker ROS ROS ED Constitutional Constitutional ED: Denies chills or fever(s) Eyes Eyes: Denies blurry vision or change in vision ENT ENT ED: Reports rhinorrhea; Denies sore throat Cardiovascular Cardiovascular: Denies chest pain or palpitations Respiratory/Chest Respiratory/Chest: Reports dyspnea; Denies cough Gastrointestinal Gastrointestinal: Reports nausea; Denies vomiting Genitourinary Genitourinary ED: Reports hematuria; Denies dysuria Musculoskeletal Musculoskeletal: Reports back pain and neck pain Integumentary Denies abscess or rash Neurologic Neurologic: Denies headache(s) or weakness Allergic/Immunologic Allergic/Immunologic ED: Denies mouth swelling or urticaria EXAM Physical Exam Const Vital Signs: 07/07/25 19:11 07/07/25 19:12 07/07/25 20:12 Temperature 98.3 F 98.6 F 98.6 F Temperature Source Oral Oral Oral Pulse Rate 88 74 78 Respiratory Rate 16 16 18 Blood Pressure 171/88 H 161/81 H 152/78 H Blood Pressure Mean 115 107 102 Pulse Ox 99 97 99 Oxygen Delivery Method Room Air Room Air Room Air 07/07/25 21:29 Temperature Temperature Source Pulse Rate 73 Respiratory Rate 18 Blood Pressure 147/70 H Blood Pressure Mean 95 Pulse Ox 98 Oxygen Delivery Method Room Air Positive well nourished and well developed Constitutional Narrative: BMI is 36.8. General Appearance ED: well developed and NAD HEENT Reports moist mucous membranes Neck supple and no JVD Resp normal respiratory effort and clear to auscultation bilaterally Cardio regular rate and regular rhythm GI non-distended Palpation: soft and tender LUQ, RUQ and suprapubic; Negative for guarding or rebound tenderness present Neuro oriented x3, CN's II-XII intact bilaterally and no sensory deficits noted Sensorium / Orientation: alert Motor Exam: strength 5/5 throughout Psych mental status grossly normal MDM MDM MDM Narrative Medical decision making narrative: Differential diagnosis includes ureteral calculus, hemorrhagic cystitis, electrolyte abnormality, coagulopathy, diverticulitis, colitis, and viral illness. CBC will be obtained to assess for leukocytosis and anemia. Comprehensive metabolic profile will be obtained to assess for hepatic function, renal function, and electrolyte abnormality. Urinalysis will be obtained to assess for urinary tract infection and hematuria. CT scan of the abdomen and pe lvis will be obtained to assess for ureteral calculus, diverticulitis, and colitis. Lab Data Attestation: I reviewed the patient's lab results. Lab results narrative: CBC was reviewed and was within normal limits. Comprehensive metabolic profile was reviewed. BUN was 27 and creatinine was 1.36. These are consistent with previous results. The remainder is essentially within normal limits. Urinalysis was reviewed. Leukocyte Estrace was 25. There are 5-10 white blood cells, 1+ bacteria. There are greater than 100 red blood cells noted. There are 0-5 epithelial cells. Lipase was reviewed and was slightly elevated at 88. Labs: Laboratory Results - last 24 hr 07/07/25 07/07/25 19:35 20:20 WBC 8.8 RBC 4.79 Hgb 13.4 Hct 41.5 MCV 86.6 MCH 28.0 MCHC 32.3 RDW Std Deviation 42.5 RDW Coeff of Barb 13.4 Plt Count 168 MPV 10.5 Immature Gran % (Auto) 0.300 Neut % (Auto) 68.8 Lymph % (Auto) 16.8 L [place] % (Auto) 12.3 H Eos % (Auto) 1.6 Baso % (Auto) 0.2 Absolute Neuts (auto) 6.0 Absolute Lymphs (auto) 1.47 Nucleated RBC % 0 Sodium 138 Potassium 4.0 Chloride 104 Carbon Dioxide 23.1 Anion Gap 11 BUN 27 H Creatinine 1.36 H Estim Creat Clear Calc 32.46 L Est GFR (MDRD) Non-Af 40 L BUN/Creatinine Ratio 19.8 Glucose 110 H Calcium 9.7 Total Bilirubin 0.43 AST 17 ALT 10 Alkaline Phosphatase 82 Total Protein 7.4 Albumin 3.9 Globulin 3.5 Albumin/Globulin Ratio 1.1 Lipase 88 H Urine Color Red Urine Clarity Cloudy Urine pH 6.0 Ur Specific [place] 1.010 Urine Protein 100 H Urine Glucose (UA) Normal Urine Ketones Negative Urine Occult Blood 250 H Urine Nitrite Negative Urine Bilirubin Negative Urine Urobilinogen Normal Ur Leukocyte Esterase 25 H Urine RBC > 100 SEEN Urine WBC 5-10 SEEN Ur Squamous Epith Cells 0-5 SEEN Urine Bacteria 1+ Urine Mucus 0 SEEN Radiography Diagnostic Testing: Clinical Impression(s) from Imaging Studies Abdomen/Pelvis CT 07/07/25 20:19 IMPRESSION: Findings suggesting pancreatitis without abscess or pseudocyst. Correlate with laboratory findings. Reading Location: [facility] [address] scan of the abdomen pelvis was obtained. There is no evidence of ureteral calculus. There are nonobstructing stones in the right kidney. There are no masses noted. There is some infiltration of the fat surrounding the pancreatic tail concerning for pancreatitis. There is no ascites or bowel obstruction noted. There is no abscess noted. This was interpreted by the radiologist was also independently reviewed by myself. Additional Tests and Interventions Additional Tests or Interventions: Because of the findings on CT, lipase was obtained. Urine culture was ordered. Treatment and Re-Evaluation :: Patient declined any analgesics. Patient was advised of her findings. Urine culture was ordered. Patient was advised that if any bacteria grow on the urine culture, she will be contacted and given a prescription for antibiotics at that time. Patient was instructed to drink plenty of fluids. Patient was instructed to start with a clear liquid diet and advance as tolerated. Patient was instructed to follow-up with her primary care physician in 5 to 7 days. Patient was also given a referral for urology. Patient was instructed to return if worse in any way. Patient understood and was agreeable with the plan. All questions were answered. Discharge Plan Triage Chief Complaint: Flank Pain ED Provider: Cesario Mcclain Dx/Rx/DC Orders Clinical Impression: Hematuria, Pancreatitis Instructions: ED Hematuria, ED Pancreatitis Prescriptions: No Action aspirin [Aspir-81] 81 MG tablet,delayed release (DR/EC) 81 mg PO DAILY carvedilol 6.25 mg tablet 6.25 mg PO Q12H Patient Comments: [NO ORIGINAL SIG] clopidogrel 75 mg tablet 75 mg PO DAILY losartan 100 mg tablet 100 mg PO DAILY rosuvastatin 10 mg tablet 10 mg PO QHS Primary Care Provider: Thaddeus Mike Referrals: Page Lopez MD [Med Staff - Active Staff] - 3-5 Days if not improving Thaddeus Mike MD [Primary Care Provider] - 3-5 Days Print Language: Swazi Disposition Disposition: Home, Self Care
[2025-07-07 20:12] VITALS: BP 152/78; PULSE 78; RESP 18; TEMP 37; O2SAT 99
[2025-07-07 20:17] LABS: AST(SGOT) 17 U/L (<=31); Alanine Aminotransfer ALT/SGPT 10 U/L (<=34); Albumin, Serum 3.9 g/dL (3.4-4.8); Alkaline Phosphatase 82 U/L (35-104); Anion Gap 11 (5-15); BUN 27 mg/dL (4-19); BUN/Creat Ratio 19.8 RATIO (10-20); Calcium,Total 9.7 mg/dL (7.6-11.0); Carbon Dioxide 23.1 mmol/L (21.0-32.0); Chloride 104 mmol/L (98-108); Estimated Creatinine Clearance 32.46 ml/min (50-250); Globulin 3.5 g/dL (2.2-4.2); Glucose 110 mg/dL (70-99); Potassium 4.0 mmol/L (3.3-5.1)
--- NOTE | 2025-07-07 20:19 | CT_ITS ---
PROCEDURE: ABDOMEN/PELVIS WITHOUT CONT 07/07/2025 REASON FOR EXAM: HEMATURIA TECHNIQUE: CT abdomen and pelvis without contrast RADIATION DOSE SUMMARY: CTDlvol: 17 mGy DLP: 785 mGycm FINDINGS: Linear scarring at the left lung base. Noncontrast images of the liver, spleen, adrenal glands unremarkable. Nonobstructing nephrolithiasis interpolar region right kidney. There is infiltration of the fat surrounding the pancreatic tail concerning for pancreatitis. There is no ascites, bowel obstruction or abscess. CT/Abdomen/Pelvis without Cont IMPRESSION: Findings suggesting pancreatitis without abscess or pseudocyst. Correlate with laboratory findings. [facility]
[2025-07-07 20:24] LABS: Mucous, Urine 0 SEEN /hpf (<or=2+)
--- OUTSIDE RECORDS SUMMARY | 2025-07-07 20:26 | XMS RPT_ITS | CCD ---
Author Organization [facility] Care Team Providers Care Hse Specialist Name Role Phone Andre Santana MD Primary Care Provider Luc FAUSTIN Referring Unavailable DAISHA JUNIOR Attending Unavailable ANDRE SANTANA Primary Care Unavailable Andre Santana MD Primary Care Provider Andre Santana MD Primary Care Provider Andre Santana MD Primary Care Provider ANDRE SANTANA Primary Care Unavailable Haagen SECTION WEAVER.INTELLIGENCE CHIEF, Trang Unavailable Suppan SECTION WEAVER.INTELLIGENCE CHIEF, Sandy A Unavailable Suppan SECTION WEAVER.INTELLIGENCE CHIEF, Sandy A Unavailable [phone] Suppan SECTION WEAVER.INTELLIGENCE CHIEF, Sandy A Unavailable [phone] Dr. Andre Santana MD Primary Care Provider Dr. Rocio Hilario MD Attending Provider [phone] Dr. Rocio Hilario MD Referring Provider MAREN RHODES MD Other Provider Darshan Abarca MD Attending Provider Unavailable Darshan Abarca MD Referring Provider Unavailable Dr. Andre Santana MD Primary Care Provider Dr. Bretin Field DO Attending Provider Dr. Bertin Field DO Emergency Provider Dr. Jimmy Gray MD Emergency Provider Volodymyr COREAS, Dr. Alin Jha Admit Provider Volodymyr COREAS, Dr. Alin Jha Attending Provider Volodymyr COREAS, Dr. Alin Jha Other Provider [phone] [place], Andre Primary Care Unavailable Sleik, Khaled Referring Unavailable Sleik, Khaled Attending Unavailable [place], Andre Primary Care Unavailable Sleik, Khaled Referring Unavailable Sleik, Khaled Attending Unavailable MAREN RHODES Consulting Unavailable Esther, Andre Primary Care Unavailable Rocio Hilario Attending Unavailable SulaimanRocio clifton Referring Unavailable [place], Andre Primary Care Unavailable Sleik, Khaled Attending Unavailable Sleik, Khaled Referring Unavailable [place], Andre Primary Care Unavailable Sleik, Analisad Attending Unavailable Alin Helm Admitting Unavailable [place], Andre Primary Care Unavailable Alin Helm Attending Unavailable [place], Andre Primary Care Unavailable Sleik, Khaled Attending Unavailable Alin Helm Admitting Unavailable Esther, Andre Primary Care Unavailable Alin Helm Consulting Unavailable Alin Helm Attending Unavailable [place], Andre Primary Care Unavailable Bertin Field Attending Unavailable Esther, Andre Primary Care Unavailable Sleik, Analisad Attending Unavailable ESTHER, ANDRE Garza Primary Care Unavailable MONO GLASGOW Attending Unavailable ESTHER, ANDRE Garza Primary Care Unavailable JACQUIE EVANS Referring Unavailable ESTHER, ANDRE Garza Primary Care Unavailable MAREN RHODES Referring Unavailable ESTHER, ANDRE Garza Primary Care Unavailable MAREN RHODES Referring Unavailable ESTHER, ANDRE Garza Primary Care Unavailable ESTHER, ANDRE Garza Referring Unavailable TULIO CALDERÓN Attending Unavaila ble ESTHER, ANDRE Garza Primary Care Unavailable TRANG PHILIPPE Attending Unavailable ESTHER, ANDRE Garza Primary Care Unavailable ESTHER, ANDRE Garza Referring Unavailable ESTHER, ANDRE Garza Primary Care Unavailable ESTHER, ANDRE Garza Referring Unavailable ESTHER, ANDRE Garza Primary Care Unavailable JAZMIN PALUMBO Referring Unavailable ESTHER, ANDRE Garza Primary Care Unavailable ESTHER, ANDRE Garza Attending Unavailable ESTHER, ANDRE J Primary Care Unavailable ESTHER, ANDRE Garza Attending Unavailable ESTHER, ANDRE J Primary Care Unavailable ESTHER, ANDRE J Referring Unavailable ESTHER, ANDRE Garza Primary Care Unavailable TULIO CALDERÓN Attending Unavaila ble ESTHER, ANDRE Garza Primary Care Unavailable ESTHER, ANDRE Garza Attending Unavailable ESTHER, ANDRE Garza Primary Care Unavailable SLEIK, DARSHAN PHILLIPSD Attending Unavailable ESTHER, ANDRE Garza Primary Care Unavailable SANDY HOLM Referring Unavailable ANITHA PACHECO Attending Unavailable ESTHER, ANDRE Garza Primary Care Unavailable ESTHER, ANDRE Garza Primary Care Unavailable MAREN RHODES Referring Unavailable MAREN RHODES Attending Unavailable ESTHER, ANDRE Garza Primary Care Unavailable SLEIK, KHALED MELOUD Referring Unavailable SLEIK, DARSHAN PHILLIPSD Attending Unavailable ESTHER, ANDRE Garza Primary Care Unavailable ESTHER, ANDRE Garza Referring Unavailable ESTHER, ANDRE Garza Primary Care Unavailable TRANG PHILIPPE Referring Unavailable ESTHER, ANDRE Garza Primary Care Unavailable TRANG PHILIPPE Referring Unavailable ESTHER, ANDRE Garza Primary Care Unavailable ESTHER, ANDRE Garza Referring Unavailable ESTHER, ANDRE Garza Primary Care Unavailable SANDY HOLM Referring Unavailable ESTHER, ANDRE Garza Primary Care Unavailable ESTHER, ANDRE Garza Referring Unavailable ESTHER, ANDRE Garza Primary Care Unavailable ESTHER, ANDRE Garza Referring Unavailable ESTHER, ANDRE Garza Primary Care Unavailable TULIO CALDERÓN Referring Unavaila STAR Carbone Attending Unavailabl e ESTHER, ANDRE Garza Primary Care Unavailable ESTHER, ANDRE Garza Attending Unavailable ESTHER, ANDRE Garza Primary Care Unavailable ESTHER, ANDRE Garza Referring Unavailable JACQUIE EVANS Attending Unavailable ESTHER, ANDRE Garza Primary Care Unavailable ESTHER, ANDRE Garza Referring Unavailable ESTHER, ANDRE Garza Primary Care Unavailable ESTHER, ANDRE Garza Referring Unavailable ESTHER, ANDRE Garza Primary Care Unavailable SANDY HOLM Attending Unavailable ESTHER, ANDRE Garza Primary Care Unavailable ESTHER, ANDRE Garza Referring Unavailable ESTHER, ANDRE Garza Primary Care Unavailable TRANG PHILIPPE Attending Unavailable ESTHER, ANDRE Garza Primary Care Unavailable ESTHER, ANDRE Garza Primary Care Unavailable SLEIK, KHALED MELOUD Referring Unavailable SLEIK, DARSHAN PHILLIPSD Attending Unavailable ESTHER, ANDRE Garza Primary Care Unavailable TRANG PHILIPPE Referring Unavailable ESTHER, ANDRE Garza Primary Care Unavailable ESTHER, ANDRE Garza Attending Unavailable Allergies Allergy Classification Reported Allergen(s) Allergy Type Date of Onset Reaction(s) Facility (20 sources) Adhesive Tape; Translations: [ADHESIVE TAPE (ROSINS)] Propensity to adverse reactions to substance 4 Itching [facility] (20 sources) amLODIPine; Translations: [AMLODIPINE BESYLATE] Drug Allergy 7 Swelling [facility] (20 sources) Cat; Translations: [CATS] Propensity to adverse reactions 0 [facility] Work Phone: (20 sources) LORazepam; Translations: [LORAZEPAM] Drug Allergy 0 Other: See Comments, Intolerance, Unknown [facility] (20 sources) Metoprolol; Translations: [METOPROLOL TARTRATE] Drug Allergy 5 Mental Status Change [facility] (20 sources) Naproxen; Translations: [NAPROXEN SODIUM] Drug Allergy 5 GI Upset [facility] Work Phone: (20 sources) nickel; Translations: [NICKEL] Drug Allergy 4 Rash, Unknown [facility] (20 sources) rofecoxib; Translations: [ROFECOXIB] Drug Allergy 5 GI Upset, Unknown, Other [facility] (20 sources) Sulfonamides (Antibiotic); Translations: [SULFA (SULFONAMIDE ANTIBIOTICS)] Propensity to adverse reactions 5 Intolerance, Itching, Rash [facility] (20 sources) cigarette smoke [Other] Propensity to adverse reactions 2 Cough, Itching, Shortness of Breath [facility] (1 source) OTHER; Translations: [OTHER] Propensity to adverse reactions (disorder) 2 [facility] Other [facility] (20 sources) gabapentin; Translations: [GABAPENTIN] Drug Allergy 4 Intolerance, Unknown [facility] Work Phone: (20 sources) Cigarette Smoke; Translations: [CIGARETTE SMOKE] Drug Allergy 0 Shortness of Breath [facility] Work Phone: (5 sources) amLODIPine; Translations: [AMLODIPINE] Drug Allergy 7 Unknown, Swelling [facility] Work Phone: (2 sources) Losartan; Translations: [LOSARTAN] Drug Allergy 7 [facility] Work Phone: (5 sources) Metoprolol; Translations: [METOPROLOL] Drug Allergy 5 Other, Unknown [facility] Work Phone: (5 sources) Naproxen; Translations: [NAPROXEN] Drug Allergy 5 GI Upset, Unknown [facility] Work Phone: (2 sources) Adhesive Tape-Silicones; Translations: [ADHESIVE TAPE-SILICONES] Drug Intolerance 4 Itching [facility] (6 sources) Cat Dander; Translations: [CAT DANDER] Allergy to substance 0 Unknown [facility] Work Phone: (16 sources) Ticagrelor; Translations: [TICAGRELOR] Drug Allergy 5 Other: See Comments [facility] (4 sources) Adhesive Tape; Translations: [adhesive tape] Allergy to substance 0 Itching [facility] (3 sources) Sulfonamides (Antibiotic) Propensity to adverse reactions 0 Other [facility] (1 source) amLODIPine Drug Allergy 5 [facility] (1 source) Metoprolol Drug Allergy 5 [facility] (1 source) Naproxen Drug Allergy 5 [facility] (1 source) nickel Drug Allergy 5 [facility] (1 source) rofecoxib Drug Allergy 5 [facility] (1 source) Sulfonamides (Antibiotic) Drug allergy (disorder) 5 [facility] (1 source) Aspirin; Translations: [ASPIRIN] Drug Allergy 5 [facility] Repository Medications Current Medications Medication Drug Class(es) Dates Sig (Normalized) Sig (Original) aspirin 81 mg delayed release oral tablet (20 sources) Platelet Aggregation Inhibitor, Nonsteroidal Anti-inflammatory Drug Start: 11-24-2018 take 1 tablet by mouth once daily Aspirin (Aspir-81) 81 MG tablet,delayed release (DR/EC) Active 81 mg PO DAILY November 24, 2018 1:00am [facility] take 1 tablet by mouth once trey [...] Drop in both e yes twice daily. carvedilol 6.25 mg oral tablet (20 sources) alpha-Adrenergic Kemar, beta-Adrenergic Kemar Start: 07-06-2024 End: 09-12-2025 take 1 tablet by mouth every twelve hours carvedilol (COREG) 6.25 mg tablet Indications: Primary hypertension Take 1 tablet by mouth every 12 hours. 180 tablet 1 06/14/2025 09/12/2025 Active cephalexin 500 mg oral capsule (4 sources) Cephalosporin Antibacterial Start: 08-09-2024 End: 08-14-2024 take 1 capsule by mouth four times daily cephALEXin (KEFLEX) 500 mg capsule Take 1 capsule by mouth four times daily for 5 days. 20 capsule 08/09/2024 08/14/2024 Active Start: 02-22-2024 End: 02-22-2024 cephALEXin 500 mg cap(s) (KE FLEX) clopidogrel 75 mg oral tablet (20 sources) P2Y12 Platelet Inhibitor Start: 12-26-2024 End: 04-17-2025 take 1 tablet by mouth once daily clopidogrel (PLAVIX) 75 mg tablet Take 1 tablet by mouth once daily. 90 tablet 1 04/17/2025 Active cyclobenzaprine hydrochloride 5 mg oral tablet (20 sources) Muscle Relaxant Start: 07-01-2022 End: 06-02-2023 take 1 tablet by mouth every eight hours as needed cyclobenzaprine (FLEXERIL) 5 mg tablet Take 1 tablet by mouth three times daily as needed. 30 tablet 2 06/02/2023 Active Comment on above: Take 1 tablet by sara three times daily as needed. diphenhydrAMINE hydrochloride 12.5 mg chewable tablet (20 sources) Histamine-1 Receptor Antagonist take 1 tablet by mouth every twenty-four hours as needed diphenhydrAMINE HCl 12.5 mg chewable tablet Take 12.5 mg by mouth at bedtime as needed. Active Comment on above: Take 12.5 mg by mout h at bedtime as needed. esomeprazole 20 mg delayed release oral capsule (20 sources) Proton Pump Inhibitor Start: 07-11-2020 take 1 capsule by mouth once daily, then take 6 capsules by mouth in the morning esomeprazole (NEXIUM) 20 mg capsule Take 1 capsule by mouth DAILY (6 AM). 07/11/2020 Active Comment on above: Take 1 capsule by mo uth DAILY (6 AM). ferrous sulfate (20 sources) ferrous sulfate (SLOW FE ORAL) Take by mouth once daily. Active ferrous sulfate (SLOW FE ORAL) Take by mouth. Active iv contrast (will be provide d with radiology test) (20 sources) Start: 08-25-2023 iv contrast (w ill be [...] in the CT contrast administration guidelines link. iyldt-mw-0-dha-epa -phospho-ast (MAXIMUM RED KRILL OMEGA-3) 996-94-87-45 mg cap (20 sources) Start: 4 End: 5 tyzpz-qe-8-dha-epa-p hospho-ast (MAXIMUM RED KRILL OMEGA-3) 012-81-04-45 mg cap Indications: ST elevation myocardial infarction (STEMI) involving other coronary artery of inferior wall (HCC) Take 1 tablet by mouth once daily. 90 capsule 3 07/18/2024 07/18/2025 Active losartan potassium 100 mg oral tablet (20 [...] tablet 1 07/18/2024 07/18/2025 Active polymyxin b 93702 unt/ml / trimethoprim 1 mg/ml ophthalmic solution (2 sources) Dihydrofolate Reductase Inhibitor Antibacterial, Polymyxin-class Antibacterial Start: 06-17-20 End: 06-22-20 take 1 drop(s) into the eye(s) four times daily trimethoprim-polymyxi n (POLYTRIM) 10,000 unit- 1 mg/mL ophthalmic solution Use 1 Drop in the left eye four times daily for 5 days. 1 mL 0 06/17/2023 06/22/2023 Active Comment on above: Use 1 Drop in the le ft eye four times daily for 5 days. rosuvastatin calcium 10 mg oral tablet (20 sources) HMG-CoA Reductase Inhibitor Start: 07-06-20 End: 12-11-19 take 1 tablet by mouth once daily at bedtime rosuvastatin (CRESTOR) 10 mg tablet Indications: Mixed hyperlipidemia Take 1 tablet by mouth daily at bedtime. 90 tablet 1 06/14/2025 12/11/2025 Active Start: 07-04-2024 End: 07-18-2024 take 1 [...] oral tablet (1 source) Opioid Agonist Start: End: take 1 tablet by mouth every six hours as needed HYDROcodone-acetamino phen (NORCO) 5-325 mg per tablet Indications: Pneumothorax of left lung after biopsy Take 1 tablet by mouth every 6 hours as needed for up to 7 days. 28 tablet 01/02/2021 01/09/2021 Ascorbic Acid (20 sources) Vitamin C End: ascorbic acid (VITAMIN C ORAL) Take by mouth once daily. 07/18/2024 Discontinued (Discontinued by Patient) ascorbic acid (V ITAMIN C ORAL) Take by mouth once daily. Active ascorbic acid (V ITAMIN C ORAL) Take by mouth once daily. 0 Active ascorbic acid (V ITAMIN C ORAL) Take by mouth. 0 Active Comment on above: Take by mouth. Take by mouth once d aily. Biotin (20 sources) Start: 11-24-2018 End: 02-28-2025 take 1 tablet by mouth once daily Biotin 300 MCG tablet Discontinued 300 ug PO DAILY November 24, 2018 1:00am February 28, 2025 2:27pm Start: 11-24-2018 take 1 tablet by sara once daily Biotin 300 MCG tablet Active [...] mouth. Take by mouth once d aily. cholecalciferol 0.025 mg oral tablet (20 sources) Vitamin D Start: 11-24-19 End: 02-29-20 take 1 tablet by mouth once daily Cholecalciferol (Vitamin D3) (Vitamin D3) 1,000 UNIT tablet Discontinued 1000 U PO DAILY November 24, 2018 1:00am February 28, 2025 2:27pm End: 07-18-2024 take 1 capsule by mouth once daily Cholecalciferol, Vitamin D3, 25 mcg (1,000 unit) cap Take 1,000 Units by mouth once daily. 07/18/2024 Discontinued (Discontinued by Patient) Comment on above: Take 1,000 Units by mouth once daily. cloNIDine hydrochloride 0.1 mg oral tablet (20 sources) Central alpha-2 Adrenergic Agonist Start: 9 End: take 1 tablet by mouth at bedtime Clonidine Hcl 0.1 MG tablet Discontinued 0.1 mg PO AT BEDTIME November 24, 2018 1:00am February 28, 2025 2:28pm Start: 11-24-2018 End: 06-02-2024 take 1 tablet by mouth twice daily cloNIDine HCl (CATAPRES) 0.1 mg tablet Indications: Essential hypertension with goal blood pressure less than 140/90 Take 1 tablet by mouth twice daily. 0 06/17/2023 06/02/2024 Discontinued (Duplicate Entry) Comment on above: Take 1 tablet by sara th daily at bedtime. Take 1 tablet by sara th twice daily. COMPOUNDED PRESCRIPTION (1 source) Start: 03-01-20 19 End: 08-01-20 21 COMPOUNDED PRESCRIPTION Speed ankle brace (with wrap around ties) S93.402A Sprain of ligament of left ankle, initial encounter M79.672 Pain of left heel 1 Each 03/01/2019 08/01/2021 Discontinued diazePAM 2 mg oral tablet (4 sources) Benzodiazepine Start: 01-05-20 17 End: 02-29-20 take 1 mg by mouth twice daily as needed for anxiety Diazepam 2 MG tablet Discontinued 1 mg PO TWICE DAILY NEEDED as needed for Anxiety November 24, 2018 1:00am February 28, 2025 2:28pm ELDERBERRY FRUIT (20 sources) End: 07-18-20 24 elderberry fruit (ELDERBERRY ORAL) Take by mouth [...] 0 06/02/2024 06/03/2024 Discontinued (Cost of medication) qvkkp-Q9-[id number]-[id number]-QKYI-I7 0 1 mg-25 mg-12.5 mg-1 mg tab (20 sources) End: 07-18-2024 dbkpc-G6-K6-U22-Q-O3-IBVP-B8 0 1 mg-25 mg-12.5 mg-1 mg tab Take by mouth once daily. 07/18/2024 Discontinued (Discontinued by Patient) efgnw-U9-H2-B12- F-S0-MRAX-Q10 1 mg-25 mg-12.5 mg-1 mg tab Take by mouth once daily. Active przli-U5-G7-B12- C-X2-EOBD-Q10 1 mg-25 mg-12.5 mg-1 mg tab Take by mouth once daily. 0 Active hopnj-C1-Y5-B12- D-S5-URMT-Q10 1 mg-25 mg-12.5 mg-1 mg tab Take [...] Comment on above: Take 1 capsule by [facility] once daily. hydroCHLOROthiazide 12.5 mg / losartan potassium 100 mg oral tablet (3 sources) Thiazide Diuretic, Angiotensin 2 Receptor Kemar Start: 2018 End: 2024 Losartan-Hydrochlorothia zide 1 EACH tablet Discontinued 1 NMA PO DAILY November 24, 2018 1:00am February 28, 2025 1:58pm hydroCHLOROthiazide 25 mg / triamterene 37.5 mg oral capsule (11 sources) Potassium-sparing Diuretic, Thiazide Diuretic Start: 2023 End: 2023 take 1 capsule by mouth once daily triamterene-hydroCHLOROt hiazide (DYAZIDE) 37.5-25 mg per capsule Indications: Hypertension, [...] Comment on above: Take 1 capsule by [facility] once daily. krill/om-3/dha/epa/pérez spho/ast (MAXIMUM RED KRILL [...] % 6 mL to pical gel (GLYDO) LORazepam 0.5 mg oral tablet (3 sources) Benzodiazepine Start: 06-26-2020 End: 02-28-2025 take 1 tablet by mouth three times daily as needed for anxiety Lorazepam 0.5 MG tablet Discontinued 0.5 mg PO THREE TIMES A DAY as needed for Anxiety June 26, 2020 10:46pm February 28, 2025 2:28pm 24 hr metoprolol succinate 50 mg extended release oral tablet (10 sources) beta-Adrenergic Kemar Start: 06-02-2024 End: 11-29-2024 take 1 tablet [...] 3 01/14/2021 05/15/2022 Discontinued Start: 11-25-2018 End: 02-28-2025 Potassium Chloride (K-Dur) 2 0 MEQ tablet Discontinued 20 meq PO DAILY 14 0 November 25, 2018 1:00am February 28, 2025 2:28pm Comment on above: Take 1 tablet by [facility] twice daily. predniSONE 10 mg oral tablet [...] chloride 9 mg/ml injection (1 source) Start: 023 End: inject 1 dose intravenously once 0.9 % [...] tachycardia] Onset: 01-14-2021 01-14-2021 Chronic Cardiac dysrhythmias (7 sources) Palpitations; Translations: [Palpitations] Onset: 06-06-2025 06-17-2023 Episodic Cataract (20 sources) Nuclear sclerosis; [...] Coronary arteriosclerosis; Translations: [Atherosclerotic heart disease of [place] coronary artery without angina pectoris] Onset: 07-25-2024 07-25-2024 Chronic Coronary atherosclerosis and other heart disease (20 sources) Patient post percutaneous transluminal coronary angioplasty; Translations: [Coronary angioplasty status] Onset: 07-25-2024 07-25-2024 Episodic Deficiency and other anemia (3 sources) Anemia; Translations: [Anemia, unspecified] 08-16-2024 Episodic Disorders of lipid metabolism (20 sources) Mixed hyperlipidemia; Translations: [Mixed hyperlipidemia] Onset: 03-16-2009 01-02-2021 Chronic Esophageal disorders (20 sources) Gastroesophageal reflux disease; Translations: [Gastro-esophageal reflux disease without esophagitis] Onset: 01-11-2016 Resolved: 07-11-2020 01-02-2021 Chronic Essential hypertension (20 sources) Essential hypertension; Translations: [Essential (primary) hypertension] Onset: 10-15-2006 Resolved: 05-02-2008 09-23-2021 Chronic Genitourinary symptoms and ill-defined conditions (20 sources) Increased frequency of urination; Translations: [Frequency of micturition] Onset: 04-22-2022 Episodic Heart valve disorders (20 sources) Mitral valve [...] Onset: 12-01-2009 12-01-2009 Chronic Nonspecific chest pain (12 sources) Chest pain; Translations: [Chest pain, unspecified] Onset: 06-22-2025 Episodic Occlusion or stenosis of precerebral arteries (1 source) Left carotid artery stenosis; Translations: [Occlusion and stenosis of left carotid artery] 07-05-2025 Chronic Osteoarthritis (2 sources) Arthritis of bilateral first carpometacarpal joints; Translations: [Bilateral primary osteoarthritis of first carpometacarpal joints] Chronic Other aftercare (1 source) Wound finding; Translations: [Encounter for other specified aftercare] 09-20-2024 Episodic Other aftercare (1 source) Long-term current use of anticoagulant; Translations: [termite control servicer (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 anticoagulants] 09-20-2024 Episodic Other aftercare (2 sources) Encounter for other specified aftercare; Translations: [Encounter for other specified aftercare] Onset: 09-20-2024 Episodic Other aftercare (2 sources) detention (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 anticoagulants; Translations: [termite control servicer (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 anticoagulants] Onset: 09-20-2024 Episodic Other aftercare (1 source) Long-term current use of drug therapy; Translations: [termite control servicer (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 antithrombotics/antipl atelets] 06-26-2025 Episodic Other aftercare (1 source) termite control servicer (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 antithrombotics/antipl atelets; Translations: [detention (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 antithrombotics/antipl atelets] Onset: 06-26-2025 Episodic Other aftercare (1 source) Encounter for therapeutic drug level monitoring; Translations: [Medication monitoring encounter] Onset: 05-16-2025 Episodic Other and ill-defined cerebrovascular disease (2 sources) Cerebral ischemia; Translations: [Transient cerebral ischemic attack, unspecified] 06-28-2025 Chronic Other and unspecified benign neoplasm (2 sources) [...] Translations: [Raynaud's syndrome without gangrene] Chronic Other circulatory disease (2 sources) H/O: heart disorder; Translations: [Personal history of other diseases of the circulatory system] 03-08-2025 Episodic Other connective tissue disease (2 sources) Pain in right thumb; Translations: [Pain in right finger(s)] 08-09-2024 Episodic Other endocrine disorders (1 source) Empty sella syndrome; Translations: [Other disorders of pituitary gland] 06-29-2025 Chronic Other eye disorders (20 sources) Bilateral vitreous floaters; Translations: [Other vitreous opacities, bilateral] Onset: 06-30-2017 06-30-2017 Chronic Other hematologic conditions (1 source) ESR raised; Translations: [Elevated erythrocyte sedimentation rate] Episodic Other injuries and conditions due to external causes (1 source) Injury of right ankle; Translations: [Unspecified injury of right ankle, initial encounter] 06-08-2024 Episodic Other injuries and conditions due to external causes (2 sources) Unspecified injury of head, initial encounter; Translations: [Unspecified injury of head, initial encounter] Onset: 06-23-2025 Episodic Other lower respiratory disease (20 sources) [...] [Other disturbances of skin sensation] Episodic Other nervous system disorders (2 sources) Dysphasia; Translations: [Dysphasia] 06-28-2025 Episodic Other nervous system disorders (1 source) Dysphasia; Translations: [Dysphasia] Onset: 07-04-2025 Episodic Other non-traumatic joint disorders (1 source) [...] (2 sources) Pain; Translations: [Pain, unspecified] Episodic Residual codes; unclassified (2 sources) Confusional state; Translations: [Disorientation, unspecified] 06-05-2025 Episodic Residual codes; unclassified (1 source) Disorientation, unspecified; Translations: [Disorientation, unspecified] Onset: 06-06-2025 Episodic Residual codes; unclassified (2 sources) Memory impairment; Translations: [Other amnesia] 06-30-2025 Episodic Residual codes; unclassified (1 source) Other amnesia; Translations: [Memory changes] Onset: 06-14-2025 Episodic Spondylosis; intervertebral disc disorders; other back problems (20 sources) Sciatica; Translations: [Sciatica, right side] Onset: 12-15-2008 Resolved: 10-28-2022 Episodic Superficial injury; contusion (3 sources) Contusion of scalp, initial encounter; Translations: [Injury of forehead] Onset: 06-23-2025 Episodic Systemic lupus erythematosus and connective tissue disorders (20 sources) Sjogren's syndrome; Translations: [Sicca syndrome, unspecified] Onset: 08-16-2021 Resolved: 10-14-2021 Chronic Thyroid disorders (20 sources) Thyroid nodule; Translations: [Nontoxic single thyroid nodule] Onset: 08-16-2021 08-16-2021 Chronic Transient cerebral ischemia (1 source) Transient cerebral ischemic attack, unspecified; Translations: [Transient cerebral ischemia, unspecified type] Onset: 07-04-2025 Chronic Unclassified (1 source) APPOINTMENT CANCELLED 08-17-2023 Unclassified (3 sources) History of peptic ulcer disease 11-24-2018 Unclassified (2 sources) Or your heart doctor Unclassified (1 source) Recheck Onset: 06-28-2025 Unclassified (1 source) Acute cough; Translations: [Acute cough] Onset: 06-14-2025 Past or Other Problems Problem Classification Problem Date Documented Date Episodic/Chronic Administrative/social admission (20 sources) Discharge status; Translations: [Other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 [facility] Address: [address] [place], [place] [address] Performed By: #### 2 284-8, 50138-6, 9, 6-3 ####[facility] LABIA [id number] [address] [place] [address] [place] Sodium [Moles/Vol] 143 mmol/L Normal 136-144 [facility] Comment on above: Order Comment: Speci men Type: BLOOD SPECIMENOrdering Facility: [facility] Address: [address] [place], [place] [address] Performed By: #### 2 284-8, 51151-7, 9, 6-3 ####[facility] LABCLIA [id number] [address] [address] [place] Urea nitrogen [Mass/Vol] 20 mg/dL Normal 7-21 [facility] Comment on above: Order Comment: Speci men Type: BLOOD SPECIMENOrdering Facility: [facility] Address: [address] [place] [address] Performed By: #### 2 284-8, 38638-3, 9, 6-3 ####[facility] LABCLIA [id number] [place] [id number] [place] ESR Westergren method (Bld) [Velocity]on 06-14-2025 ESR (Bld) [Velocity] 25 mm/h High 0-20 [facility] Comment on above: Order Comment: Speci men Type: BLOOD SPECIMENOrdering Facility: [facility] Address: [address] [place] [address] Performed By: #### 5 7021-8, 4537-7 ####[facility] LABCLIA [id number] [place] [address] [place] Folate SerPl-mCncon 06-14-20 25 Folate [Mass/Vol] 12.7 ng/mL Normal >4.7 [facility] Comment on above: Order Comment: Speci men Type: BLOOD SPECIMENOrdering Facility: [facility] Address: [address] [place] [address] Performed By: #### 2 284-8, 34773-8, 9, 6-3 ####[facility] LABCLIA [id number] [place] [address] [place] TSH SerPl-aCncon 06-14-2025 TSH Qn 3.460 m[IU]/L Normal 0.270-4.200 [facility] Comment on above: Order Comment: Speci men Type: BLOOD SPECIMENOrdering Facility: [facility] Address: [address] [place] [address] Performed By: #### 2 284-8, 64267-0, 9, 6-3 ####[facility] LABCLIA [id number] [place] [address] [place] Urinalysis complete panel (U )on 06-14-2025 Bacteria LM.HPF (Urine sed) [#/Area] Negative Normal Negative [facility] Comment on above: Order Comment: Speci men Type: URINE SPECIMENOrdering Facility: [facility] Address: [address] [place] [address] Performed By: #### 2 4356-8 ####[facility] LABCLIA [id number] [place] [address] [place] Bilirubin Ql (U) Negative Normal Negative [facility] Comment on above: Order Comment: Speci men Type: URINE SPECIMENOrdering Facility: [facility] Address: [address] [place] [address] Performed By: #### 2 4356-8 ####[facility] LABCLIA [id number] [place] [address] [place] Clarity (Unsp spec) Clear Normal Clear [facility] Comment on above: Order Comment: Speci men Type: URINE SPECIMENOrdering Facility: [facility] Address: [address] [place] [address] Performed By: #### 2 4356-8 ####[facility] LABCLIA [id number] [place] [address] [place] Color (U) Yellow Normal Yellow [facility] Comment on above: Order Comment: Speci men Type: URINE SPECIMENOrdering Facility: [facility] Address: [address] [place] [address] Performed By: #### 2 4356-8 ####[facility] LABCLIA [id number] [place] [id number] [place] Epithelial cells LM.HPF (Urine sed) [#/Area] None Seen Normal [facility] Comment on above: Order Comment: Speci men Type: URINE SPECIMENOrdering Facility: [facility] Address: [address] [place] [address] Performed By: #### 2 4356-8 ####[facility] LABCLIA [id number] [place] [id number] [place] Glucose Test strip (U) [Mass/Vol] Negative Normal Negative [facility] Comment on above: Order Comment: Speci men Type: URINE SPECIMENOrdering Facility: [facility] Address: [address] [place] [address] Performed By: #### 2 4356-8 ####[facility] LABCLIA [id number] [place] [address] [place] Hemoglobin Ql (U) 2+ Abnormal Negative [facility] Comment on above: Order Comment: Speci men Type: URINE SPECIMENOrdering Facility: [facility] Address: [address] [place] [address] Performed By: #### 2 4356-8 ####[facility] LABCLIA [id number] [place] [address] [place] Hyaline casts (Urine sed) [#/Area] 0 /[LPF] Normal 0 /LPF [facility] Comment on above: Order Comment: Speci men Type: URINE SPECIMENOrdering Facility: [facility] Address: [address] [place] [address] Performed By: #### 2 4356-8 ####[facility] LABCLIA [id number] [place] [address] [place] Ketones Ql (U) Negative Normal Negative [facility] Comment on above: Order Comment: Speci men Type: URINE SPECIMENOrdering Facility: [facility] Address: [address] [place] [address] Performed By: #### 2 4356-8 ####[facility] LABCLIA [id number] [place] [address] [place] Leukocyte esterase Test strip Ql (U) Negative Normal Negative [facility] Comment on above: Order Comment: Speci men Type: URINE SPECIMENOrdering Facility: [facility] Address: [address] [place] [address] Performed By: #### 2 4356-8 ####[facility] LABCLIA [id number] [address], [place] [address] [place] Nitrite Ql (U) Negative Normal Negative [facility] Comment on above: Order Comment: Speci men Type: URINE SPECIMENOrdering Facility: [facility] Address: [address] [place] [address] Performed By: #### 2 4356-8 ####[facility] LABCLIA [id number] [place] [address] [place] pH (U) 6.5 [pH] Normal 5.0-8.0 [facility] Comment on above: Order Comment: Speci men Type: URINE SPECIMENOrdering Facility: [facility] Address: [address] [place] [address] Performed By: #### 2 4356-8 ####[facility] LABIA [id number] [place] [address] [place] Protein (U) [Mass/Vol] Trace Abnormal Negative [facility] Comment on above: Order Comment: Speci men Type: URINE SPECIMENOrdering Facility: [facility] Address: [address] [place] [address] Performed By: #### 2 4356-8 ####[facility] LABIA [id number] [place] [address] [place] RBC LM.HPF (Urine sed) [#/Area] /[HPF] Abnormal 0-2 /HPF [facility] Comment on above: Order Comment: Speci men Type: URINE SPECIMENOrdering Facility: [facility] Address: [address] [place] [address] Performed By: #### 2 4356-8 ####[facility] LABCLIA [id number] [place] [id number] [place] Specific gravity (U) [Rel density] 1.016 Normal 1.005-1.030 [facility] Comment on above: Order Comment: Speci men Type: URINE SPECIMENOrdering Facility: [facility] Address: [address] [place] [address] Performed By: #### 2 4356-8 ####[facility] LABIA [id number] [place] [address] [place] Urobilinogen Ql (U) 0.2 EU/dL Normal 0.2-1.0 EU/dL [facility] Comment on above: Order Comment: Speci men Type: URINE SPECIMENOrdering Facility: [facility] Address: [address] [place] [address] Performed By: #### 2 4356-8 ####[facility] LABCLIA [id number] [place] [address] [place] WBC LM.HPF (Urine sed) [#/Area] 0-5 /HPF Normal 0-5 /HPF [facility] Comment on above: Order Comment: Speci men Type: URINE SPECIMENOrdering Facility: [facility] Address: [address] [place] [address] Performed By: #### 2 4356-8 ####[facility] LABIA [id number] [place] [address] [place] Vit B12 SerPl-ncon 025 Cobalamin (Vitamin B12) [Mass/Vol] 603 pg/mL Normal 232-1245 [facility] Comment on above: Order Comment: Speci men Type: BLOOD SPECIMENOrdering Facility: [facility] Address: [address] [place] [address] Performed By: #### 2 284-8, 08246-3, 2132-9, 3016-3 ####[facility] LABCLIA [id number] [place] [id number] [place] XR CHEST 2V FRONTAL/LATon XR CHEST 2V FRONTAL/LAT Normal [facility] CNPTOUTREACHon 07-30-2025 CNPTOUTREACH Normal [facility] Absolute lymphocyte countOrd ered By: Alin Helm on 06-06-2025 Lymphocytes Auto (Unsp spec) [#/Vol] 1.72 10*3/uL 0.83-4.51 [facility] Absolute neutrophil countOrd ered By: Alin Helm on 06-06-2025 Neutrophils (Bld) [#/Vol] 3.1 10*3/uL 2.0-7.7 [facility] Anion gap in Serum or Plasma Ordered By: Alin Helm on 06-06-2025 Anion gap [Moles/Vol] 11 mmol/L 5-15 [facility] Automated lymphocyte count a s percentage of total leukocytesOrdered By: Alin Helm on 06-06-2025 Lymphocytes/100 WBC Auto (Unsp spec) 30.0 % 19-41 [facility] BUN/creatinine ratioOrdered By: Alin Helm on 06-06-2025 Urea nitrogen/Creatinine [Mass ratio] 20.2 mg/mg High 10-20 [facility] Basic Metabolic Profile (BMP )on 06-06-2025 BUN/CRE 20.2 RATIO High - [facility] Comment on above: Performed By: #### L 499.0043 #### [facility] [address] [place], [address] Calcium [Mass/Vol] 8.9 mg/dL Normal 7.6-11.0 [facility] Comment on above: Performed By: #### L 499.0043 #### [facility] [address] [place], [address] Chloride [Moles/Vol] 105 mmol/L Normal 98-108 [facility] Comment on above: Performed By: #### L 499.0043 #### [facility] [address] [place], [address] CO2 [Moles/Vol] 23.3 mmol/L Normal 21.0-32.0 [facility] Comment on above: Performed By: #### L 499.0043 #### [facility] [address] [place], [address] Creatinine [Mass/Vol] 1.17 mg/dL Normal 0.70-1.20 [facility] Comment on above: Performed By: #### L 499.0043 #### [facility] [address] [place], [address] ECRCL 37.65 ml/min Low 50-250 [facility] Comment on above: Performed By: #### L 499.0043 #### [facility] [address] [place], [address] GAP 11 Normal 5-15 [facility] Comment on above: Performed By: #### L 499.0043 #### [facility] [address] [place], [address] GFR/1.73 sq M.predicted among non-blacks MDRD (S/P/Bld) [Vol rate/Area] 48 mL/min/{1.73_m2} Low >60 [facility] Comment on above: Result Comment: mL/m in/1.73m2 CKD-EPI Creatinine Equation (2020) Performed By: #### L 499.0043 #### [facility] [address] [place], [address] Glucose [Mass/Vol] 103 mg/dL High 70-99 [facility] Comment on above: Performed By: #### L 499.0043 #### [facility] [address] [place], [address] Potassium [Moles/Vol] 4.3 mmol/L Normal 3.3-5.1 [facility] Comment on above: Performed By: #### L 499.0043 #### [facility] [address] [place], [address] Sodium [Moles/Vol] 139 mmol/L Normal 133-145 [facility] Comment on above: Performed By: #### L 499.0043 #### [facility] [address] [place], [address] Urea nitrogen [Mass/Vol] 24 mg/dL High 4-19 [facility] Comment on above: Performed By: #### L 499.0043 #### [facility] [address] [place], [address] Basophil percentageOrdered B y: Alin Helm on 06-06-2025 Basophils/100 WBC (Bld) 0.5 % 0-1 [facility] CBC W/Diff, Automatedon 05-10 Absolute Lymph 1.72 X10 3/uL Normal 0.83-4.51 [facility] Comment on above: Performed By: #### L 499.0043 #### [facility] [address] [place], [address] Absolute Neut 3.1 X10 3/uL Normal 2.0-7.7 [facility] Comment on above: Performed By: #### L 499.0043 #### [facility] [address] [place], [address] Basophils/100 WBC (Bld) 0.5 % Normal 0-1 [facility] Comment on above: Performed By: #### L 499.0043 #### [facility] [address] [place], [address] Eosinophils/100 WBC (Bld) 1.4 % Normal 0-5 [facility] Comment on above: Performed By: #### L 499.0043 #### [facility] [address] [place], [address] Erythrocyte distribution width (RBC) [Ratio] 13.6 % Normal 11.6-14.6 [facility] Comment on above: Performed By: #### L 499.0043 #### [facility] [address] [place], [address] Hematocrit (Bld) [Volume fraction] 38.7 % Normal 37-47 [facility] Comment on above: Performed By: #### L 499.0043 #### [facility] [address] [place], [address] Hemoglobin (Bld) [Mass/Vol] 12.5 g/dL Normal 12.0-15.0 [facility] Comment on above: Performed By: #### L 499.0043 #### [facility] [address] [place], [address] IG% 0.200 Normal 0.0-0.9 [facility] Comment on above: Result Comment: IG% - Immature Granulocytes (promyelocytes, myelocytes and metamyelocytes) > 1% indicates that a LEFT SHIFT is Present. Performed By: #### L 499.0043 #### [facility] [address] [place], [address] Lymphocytes/100 WBC (Bld) 30.0 % Normal 19-41 [facility] Comment on above: Performed By: #### L 499.0043 #### [facility] [address] [place], [address] MCH (RBC) [Entitic mass] 27.8 pg Normal 27.0-32.0 [facility] Comment on above: Performed By: #### L 499.0043 #### [facility] [address] [place], [address] MCHC (RBC) [Mass/Vol] 32.3 g/dL Normal 32-36 [facility] Comment on above: Performed By: #### L 499.0043 #### [facility] [address] [place], [address] MCV (RBC) [Entitic vol] 86.0 fL Normal 81-99 [facility] Comment on above: Performed By: #### L 499.0043 #### [facility] [address] [place], [address] Monocytes/100 WBC (Bld) 13.4 % High 0-10 [facility] Comment on above: Performed By: #### L 499.0043 #### [facility] [address] [place], [address] Neutrophils/100 WBC (Bld) 54.5 % Normal 47-70 [facility] Comment on above: Performed By: #### L 499.0043 #### [facility] [address] [place], [address] Nucleated RBC (Bld) [#/Vol] 0 10*3/uL Normal 0-5 [facility] Comment on above: Performed By: #### L 499.0043 #### [facility] [address] [place], [address] Platelet mean volume (Bld) [Entitic vol] 11.1 fL Normal 6.2-12.0 [facility] Comment on above: Performed By: #### L 499.0043 #### [facility] [address] [place], [address] Platelets (Bld) [#/Vol] 165 10*3/uL Normal 150-450 [facility] Comment on above: Performed By: #### L 499.0043 #### [facility] [address] [place], [address] RBC (Bld) [#/Vol] 4.50 10*6/uL Normal 4.2-5.4 [facility] Comment on above: Performed By: #### L 499.0043 #### [facility] [address] [place], [address] RDW SD 42.2 fl Normal 35.1-43.9 [facility] Comment on above: Performed By: #### L 499.0043 #### [facility] [address] [place], [address] WBC (Bld) [#/Vol] 5.7 10*3/uL Normal 4.4-11.0 [facility] Comment on above: Performed By: #### L 499.0043 #### [facility] [address] [place], [address] Carbon dioxide, total [Moles /volume] in Central venous bloodOrdered By: Alin Helm on 06-06-2025 CO2 [Moles/Vol] 23.3 mmol/L 21.0-32.0 [facility] Chloride assayOrdered By: Dinora Hlem on 06-06-2025 Chloride [Moles/Vol] 105 mmol/L 98-108 [facility] Discharge Instructionon 05-10 Discharge Instruction [facility] Medical Records Department [address] [place] [address] Instructions for Home/Discharge Instructions 06/06/25 0953 MR#: [id number] Acct: [id number] Name: TERRI BURCIAGA Rep #: [id number] : 1945 79 From: Alin Helm MD PCP: Dr. Andre Santana MD Status:ADM FELIX Discharge Instructions DC O2, CPAP, BIPAP needs Home O2 Discharge instructions: No Dressing / Incision Discharge Activity: Return to Normal Activity Dressing / Incision Call your doctor if you observe: Fever of 101 or Higher, Shortness of breath, Dizziness, Fainting spells, Swelling in the ankles, Chest pain and Increased palpitations (irregular heartbeat) Follow Up Care Test Results: Test results from this visit will be discussed in further detail at your follow-up appointment, if applicable. Discharge Plan Admission Admit Date/Time: 06/05/25 10:34 Attending Provider: Alin Helm Primary Care Provider: Andre Santana Instructions Patient Instructions: ED Chest Pain, Uncertain Cause, ED Palpitations Discharge Orders/Prescriptions Prescriptions: Continued aspirin [Aspir-81] 81 MG tablet,delayed release (DR/EC) 81 mg PO DAILY carvedilol 6.25 mg tablet 6.25 mg PO Q12H Patient Comments: [NO ORIGINAL SIG] clopidogrel 75 mg tablet 75 mg PO DAILY losartan 100 mg tablet 100 mg PO DAILY rosuvastatin 10 mg tablet 10 mg PO QHS Referrals / Follow Up: Andre Santana MD [Primary Care Provider] - As soon as possible (Or your heart doctor) Disposition Disposition (needs filled in before D/C Order can be placed): Home, Self Care 06/06/25 0956 Alin Helm MD CC: Dr. Andre Santana MD Signed Normal [facility] Electrocardiogram reportOrde red By: Dane Dick on 06-06-2025 EKG study [facility] Cardiovascular Services [address] [place] [address] 12 Lead EKG 06/05/25 0543 MR#: [id number] Acct: [id number] Name: TERRI BURCIAGA Rep #:[id number] : 1945 79 From: Dane Dick MD Attending Dr: Dr. Alin Helm MD Status: ADM FELIX Ordering Dr: Jimmy Gray MD Date: 06/05/25 Location: U Sex: F C Admitted: 06/05/25 Test Reason : DYSRHYTHMIA Blood Pressure : */* mmHG Vent. Rate : 95 BPM Atrial Rate : 95 BPM P-R Int : 176 ms QRS Dur : 76 ms QT Int : 364 ms P-R-T Axes : 41 -16 33 degrees QTcB Int : 457 ms Normal sinus rhythm Inferior infarct , age undetermined Abnormal ECG Confirmed by DANE DICK MD ([id number]), newspaper photo editor SARTHAK BUSH ([id number]) on 51:00:15 PM Referred By: BB Confirmed By: DANE DICK MD 06/06/25 1300 Date _ Dane Dick MD CC: Dr. Jimmy Gray MD; Dr. Alin Helm MD; Dr. Andre Santana MD ~ Signed [facility] Other Phone: Eosinophil percentageOrdered By: Alin Helm on 06-06-2025 Eosinophils/100 WBC (Bld) 1.4 % 0-5 [facility] Erythrocyte distribution wid th ratioOrdered By: Alin Helm on 06-06-2025 Erythrocyte distribution width (RBC) [Ratio] 13.6 % 11.6-14.6 [facility] Erythrocyte distribution wid th standard deviationOrdered By: Alin Helm on 06-06-2025 Erythrocyte distribution width (RBC) [Ratio] 42.2 fl 35.1-43.9 [facility] Glomerular filtration rate ( GFR) estimation/1.73 sq m using serum, plasma, or whole bOrdered By: Alin Helm on 06-06-2025 GFR/1.73 sq M.predicted among non-blacks MDRD (S/P/Bld) [Vol rate/Area] 48 mL/min/{1.73_m2} Low >60 [facility] Comment on above: mL/min/1.73m2 CKD-EP I Creatinine Equation (2020) Hematocrit Auto (Bld) [Volum e fraction]Ordered By: Alin Helm on 06-06-2025 Hematocrit (Bld) [Volume fraction] 38.7 % 37-47 [facility] Hemoglobin measurementOrdere d By: Alin Helm on 06-06-2025 Hemoglobin (Bld) [Mass/Vol] 12.5 g/dL 12.0-15.0 [facility] Immature granulocytes/100 WB C Auto (Bld)Ordered By: Alin Helm on 06-06-2025 Immature granulocytes/100 WBC (Bld) 0.200 % 0.0-0.9 [facility] Comment on above: IG% - Immature Granu locytes (promyelocytes, myelocytes and metamyelocytes) > 1% indicates that a LEFT SHIFT is Present. MCV (mean corpuscular volume ) determinationOrdered By: Alin Helm on 06-06-2025 MCV (RBC) [Entitic vol] 86.0 fL 81-99 [facility] Mean corpuscular hemoglobin (MCH) determinationOrdered By: Alin Helm on 06-06-2025 MCH (RBC) [Entitic mass] 27.8 pg 27.0-32.0 [facility] Mean corpuscular hemoglobin concentration (MCHC) determinationOrdered By: Alin Helm on 06-06-2025 MCHC (RBC) [Mass/Vol] 32.3 g/dL 32-36 [facility] Mean platelet volume determi nationOrdered By: Alin Helm on 06-06-2025 Platelet mean volume (Bld) [Entitic vol] 11.1 fL 6.2-12.0 [facility] Monocyte percentageOrdered B y: Alin Helm on 06-06-2025 Monocytes/100 WBC (Bld) 13.4 % High 0-10 [facility] Neutrophil percentageOrdered By: Alin Helm on 06-06-2025 Neutrophils/100 WBC (Bld) 54.5 % 47-70 [facility] Nucleated red blood cell per centageOrdered By: Alin Helm on 06-06-2025 Nucleated RBC/100 WBC (Bld) [Ratio] 0 % 0-5 [facility] Platelet countOrdered By: Dinora Helm on 06-06-2025 Platelets (Bld) [#/Vol] 165 10*3/uL 150-450 [facility] Potassium measurement (mass/ volume)Ordered By: Alin Helm on 06-06-2025 Potassium (Unsp spec) [Mass/Vol] 4.3 mmol/L 3.3-5.1 [facility] RBC Auto (Bld) [#/Vol]Ordere d By: Alin Helm on 06-06-2025 RBC (Bld) [#/Vol] 4.50 10*6/uL 4.2-5.4 [facility] Serum creatinine measurement (mass/volume)Ordered By: Alin Helm on 06-06-2025 Creatinine [Mass/Vol] 1.17 mg/dL 0.70-1.20 [facility] Serum glucose measurement (m ass/volume)Ordered By: Alin Helm on 06-06-2025 Glucose [Mass/Vol] 103 mg/dL High 70-99 [facility] Serum or plasma calcium krystin urement (mass/volume)Ordered By: Alin Helm on 06-06-2025 Calcium [Mass/Vol] 8.9 mg/dL 7.6-11.0 [facility] Serum or plasma urea nitroge n measurement (mass/volume)Ordered By: Alin Helm on 06-06-2025 Urea nitrogen [Mass/Vol] 24 mg/dL High 4-19 [facility] Sodium levelOrdered By: Michael Helm on 06-06-2025 Sodium [Moles/Vol] 139 mmol/L 133-145 [facility] White blood cell (WBC) count Ordered By: Alin Helm on 06-06-2025 WBC (Bld) [#/Vol] 5.7 10*3/uL 4.4-11.0 [facility] 12 Lead EKGon 06-05-2025 12 Lead EKG [facility] Cardiovascular Services [address] [place] [address] 12 Lead EKG 06/05/25 0543 MR#: [id number] Acct: [id number] Name: TERRI BURCIAGA Rep #: [id number] : 1945 79 From: Dane Dick MD Attending Dr: Dr. Alin Helm MD Status : ADM FELIX Ordering Dr: Jimmy Gray MD Date: 06/05/25 Location: [facility] Sex: F C Admitted: 06/05/25 Test Reason : DYSRHYTHMIA Blood Pressure : */* mmHG Vent. Rate : 95 BPM Atrial Rate : 95 BPM P-R Int : 176 ms QRS Dur : 76 ms QT Int : 364 ms P-R-T Axes : 41 -16 33 degrees QTcB Int : 457 ms Normal sinus rhythm Inferior infarct , age undetermined Abnormal ECG Confirmed by DANE DICK MD ([id number]), newspaper photo editor SARTHAK BUSH ([id number]) on 06/06/2025 1:00:15 PM Referred By: BB Confirmed By: DANE DICK MD 06/06/25 1300 Date Dane Dick MD CC: Dr. Jimmy Gray MD; Dr. Alin Helm MD; Dr. Andre Santana MD Signed Normal [facility] Absolute lymphocyte countOrd ered By: Jimmy Gray on 06-05-2025 Lymphocytes Auto (Unsp spec) [#/Vol] 2.24 10*3/uL 0.83-4.51 [facility] Absolute neutrophil countOrd ered By: Annada Marina on 06-05-2025 Neutrophils (Bld) [#/Vol] 4.2 10*3/uL 2.0-7.7 [facility] Anion gap in Serum or Plasma Ordered By: Jimmy Gray on 06-05-2025 Anion gap [Moles/Vol] 15 mmol/L 5-15 [facility] Automated lymphocyte count a s percentage of total leukocytesOrdered By: Jimmy Gray on 06-05-2025 Lymphocytes/100 WBC Auto (Unsp spec) 28.9 % 19-41 [facility] BUN/creatinine ratioOrdered By: Jimmy Gray on 06-05-2025 Urea nitrogen/Creatinine [Mass ratio] 17.7 mg/mg 10- [facility] Basic Metabolic Profile (BMP )on 06-05-2025 BUN/CRE 17.7 RATIO Normal - [facility] Comment on above: Performed By: #### L 499.0043 #### [facility] [address] [place], [address] Calcium [Mass/Vol] 9.2 mg/dL Normal 7.6-11.0 [facility] Comment on above: Performed By: #### L 499.0043 #### [facility] [address] [place], [address] Chloride [Moles/Vol] 102 mmol/L Normal 98-108 [facility] Comment on above: Performed By: #### L 499.0043 #### [facility] [address] [place], [address] CO2 [Moles/Vol] 21.1 mmol/L Normal 21.0-32.0 [facility] Comment on above: Performed By: #### L 499.0043 #### [facility] [address] [place], [address] Creatinine [Mass/Vol] 1.33 mg/dL High 0.70-1.20 [facility] Comment on above: Performed By: #### L 499.0043 #### [facility] [address] [place], [address] ECRCL 33.56 ml/min Low 50-250 [facility] Comment on above: Performed By: #### L 499.0043 #### [facility] [address] [place], [address] GAP 15 Normal 5-15 [facility] Comment on above: Performed By: #### L 499.0043 #### [facility] [address] [place], [address] GFR/1.73 sq M.predicted among non-blacks MDRD (S/P/Bld) [Vol rate/Area] 41 mL/min/{1.73_m2} Low >60 [facility] Comment on above: Result Comment: mL/m in/1.73m2 CKD-EPI Creatinine Equation (2020) Performed By: #### L 499.0043 #### [facility] [address] [place], [address] Glucose [Mass/Vol] 123 mg/dL High 70-99 [facility] Comment on above: Performed By: #### L 499.0043 #### [facility] [address] [place], [address] Potassium [Moles/Vol] 3.8 mmol/L Normal 3.3-5.1 [facility] Comment on above: Performed By: #### L 499.0043 #### [facility] [address] [place], [address] Sodium [Moles/Vol] 138 mmol/L Normal 133-145 [facility] Comment on above: Performed By: #### L 499.0043 #### [facility] [address] [place], [address] Urea nitrogen [Mass/Vol] 24 mg/dL High 4-19 [facility] Comment on above: Performed By: #### L 499.0043 #### [facility] [address] [place], [address] Basophil percentageOrdered B y: Jimmy Gray on 06-05-2025 Basophils/100 WBC (Bld) 0.4 % 0-1 [facility] Bilirubin Test strip Ql (U)O rdered By: Jimmy Gray on 06-05-2025 Bilirubin Ql (U) Negative Negative [facility] Brain/Head without Contrasto n 06-05-2025 Brain/Head without Contrast [facility] Imaging Services [address] [place], [place] [address] Brain/Head without Contrast MR#: [id number] Acct: [id number] Name: TERRI BURCIAGA Rep #: [id number] : 1945 F 79 From: Carloz Rosario MD PCP: Dr. Andre Santana MD Status: REG ER Study: Brain/Head without Contrast Date of Exam: 05/10 07/03 Exam# [id number] Ordering Dr: Jimmy Gray MD EXAM: NONCONTRAST CT SCAN OF THE HEAD CLINICAL HISTORY: Confusion COMPARISON: None TECHNIQUE: Serial axial series through the head were obtained without contrast. 2-D coronal and sagittal reformats were then obtained. FINDINGS: Brain: There is no acute large territorial infarct, intracranial hemorrhage, midline shift or mass effect. There are atherosclerotic vascular calcifications involving the bilateral carotid siphons. The sella and pineal gland regions appear unremarkable. There is no evidence of cerebellar tonsillar herniation. Ventricles: There is no acute hydrocephalus. Basilar cisterns are patent. Paranasal sinuses: Mucosal thickening is noted in the sphenoid sinus. Mastoid air cells: Well-aerated. Calvarium: The bony calvarium is intact. Orbits: The bilateral globes are symmetric, without retrobulbar compressive mass lesion or hemorrhage. CT/Brain/Head without Contrast IMPRESSION: Mucosal thickening is noted in the sphenoid sinus. No acute intracranial pathology. Reading Location: [facility] CC: Dr. Jimmy Gray MD; Dr. Andre Santana MD Consumer Credit Counselor: Signed Normal [facility] CBC W/Diff, Automatedon 07-2 Absolute Lymph 2.24 X10 3/uL Normal 0.83-4.51 [facility] Comment on above: Performed By: #### L 501.4021, L100.0100, L500.2500 #### [facility] [address] [place], [address] Absolute Neut 4.2 X10 3/uL Normal 2.0-7.7 [facility] Comment on above: Performed By: #### L 501.4021, L100.0100, L500.2500 #### [facility] [address] [place], [address] Basophils/100 WBC (Bld) 0.4 % Normal 0-1 [facility] Comment on above: Performed By: #### L 501.4021, L100.0100, L500.2500 #### [facility] [address] [place], [address] Eosinophils/100 WBC (Bld) 2.6 % Normal 0-5 [facility] Comment on above: Performed By: #### L 501.4021, L100.0100, L500.2500 #### [facility] [address] [place], [address] Erythrocyte distribution width (RBC) [Ratio] 13.4 % Normal 11.6-14.6 [facility] Comment on above: Performed By: #### L 501.4021, L100.0100, L500.2500 #### [facility] [address] [place], [address] Hematocrit (Bld) [Volume fraction] 44.6 % Normal 37-47 [facility] Comment on above: Performed By: #### L 501.4021, L100.0100, L500.2500 #### [facility] [address] [place], [address] Hemoglobin (Bld) [Mass/Vol] 14.2 g/dL Normal 12.0-15.0 [facility] Comment on above: Performed By: #### L 501.4021, L100.0100, L500.2500 #### [facility] [address] [place], [address] IG% 0.300 Normal 0.0-0.9 [facility] Comment on above: Result Comment: IG% - Immature Granulocytes (promyelocytes, myelocytes and metamyelocytes) > 1% indicates that a LEFT SHIFT is Present. Performed By: #### L 501.4021, L100.0100, L500.2500 #### [facility] [address] [place], [address] Lymphocytes/100 WBC (Bld) 28.9 % Normal 19-41 [facility] Comment on above: Performed By: #### L 501.4021, L100.0100, L500.2500 #### [facility] [address] [place], [address] MCH (RBC) [Entitic mass] 27.7 pg Normal 27.0-32.0 [facility] Comment on above: Performed By: #### L 501.4021, L100.0100, L500.2500 #### [facility] [address] [place], [address] MCHC (RBC) [Mass/Vol] 31.8 g/dL Low 32-36 [facility] Comment on above: Performed By: #### L 501.4021, L100.0100, L500.2500 #### [facility] [address] [place], [address] MCV (RBC) [Entitic vol] 86.9 fL Normal 81-99 [facility] Comment on above: Performed By: #### L 501.4021, L100.0100, L500.2500 #### [facility] [address] [place], [address] Monocytes/100 WBC (Bld) 13.2 % High 0-10 [facility] Comment on above: Performed By: #### L 501.4021, L100.0100, L500.2500 #### [facility] [address] [place], [address] Neutrophils/100 WBC (Bld) 54.6 % Normal 47-70 [facility] Comment on above: Performed By: #### L 501.4021, L100.0100, L500.2500 #### [facility] [address] [place], [address] Nucleated RBC (Bld) [#/Vol] 0 10*3/uL Normal 0-5 [facility] Comment on above: Performed By: #### L 501.4021, L100.0100, L500.2500 #### [facility] [address] [place], [address] Platelet mean volume (Bld) [Entitic vol] 10.6 fL Normal 6.2-12.0 [facility] Comment on above: Performed By: #### L 501.4021, L100.0100, L500.2500 #### [facility] [address] [place], [address] Platelets (Bld) [#/Vol] 189 10*3/uL Normal 150-450 [facility] Comment on above: Performed By: #### L 501.4021, L100.0100, L500.2500 #### [facility] [address] [place], [address] RBC (Bld) [#/Vol] 5.13 10*6/uL Normal 4.2-5.4 [facility] Comment on above: Performed By: #### L 501.4021, L100.0100, L500.2500 #### [facility] [address] [place], [address] RDW SD 42.9 fl Normal 35.1-43.9 [facility] Comment on above: Performed By: #### L 501.4021, L100.0100, L500.2500 #### [facility] [address] [place], [address] WBC (Bld) [#/Vol] 7.8 10*3/uL Normal 4.4-11.0 [facility] Comment on above: Performed By: #### L 501.4021, L100.0100, L500.2500 #### [facility] [address] [place], [address] Carbon dioxide, total [Moles /volume] in Central venous bloodOrdered By: Jimmy Gray on 06-05-2025 CO2 [Moles/Vol] 21.1 mmol/L 21.0-32.0 [facility] Chest 1 View (Portable)on Chest 1 View (Portable) [facility] Imaging Services [address] [place] [address] Chest 1 View (Portable) MR#: [id number] Acct: [id number] Name: TERRI BURCIAGA Rep #: [id number] : 1945 F 79 From: Carloz Rosario MD PCP: Dr. Andre Santana MD Status: [facility] ER Study: Chest 1 View (Portable) Date of Exam: 06/05/25 Exam# [id number] Ordering Dr: Jimmy Gray MD PROCEDURE: CHEST 1 VIEW (PORTABLE) 06/05/2025 REASON FOR EXAM: CHEST PAIN TECHNIQUE: Frontal view of the chest. COMPARISON: February 28, 2025 FINDINGS: Heart size is within normal limits. Central vascularity is normal. There is no focal infiltrate or consolidation. There is no pneumothorax. There is blunting of the costophrenic angle on the left consistent with a trace effusion or scar, unchanged. There is no pneumothorax. There is no acute bony abnormality. Aortic calcifications are noted. RAD/Chest 1 View (Portable) IMPRESSION: There is blunting of the costophrenic angle on the left consistent with a trace effusion or scar, unchanged. Reading Location: [facility] CC: Dr. Jimmy Gray MD; Dr. Andre Santana MD Consumer Credit Counselor: Signed Normal [facility] Chloride assayOrdered By: Misa Gray on 06-05-2025 Chloride [Moles/Vol] 102 mmol/L 98-108 [facility] Emergency Department Summary on 06-05-2025 Emergency Department Summary [facility] Medical Records Department [address] [place] [address] Emergency Department Summary 06/05/25 MR#: [id number] Acct: [id number] Name: TERRI BURCIAGA Rep #: [id number] : 1945 79 From: Jimmy Gray MD PCP: Dr. Andre Santana MD Status:REG ER Location: ED HPI History of Present Illness Chief Complaint: Chest Pain Informant: patient Narrative Narrative: Patient presenting with chest discomfort. She states she was getting ready to go to bed at 4 AM which was almost 2 hours ago, when she felt some skipping palpitations, shortness of breath, and then she had some chest discomfort in the left side radiate up to her left neck and jaw. She states the chest discomfort is better but she still feeling like it is hard to take a deep breath and still feeling like her heart is skipping. Denies any recent illness. Denies any recent leg pain or swelling. She states she takes aspirin and clopidogrel because of a history of stents in her heart, but she is on no anticoagulants. [facility] Medical History Myocardial infarct Chest pain Hypertension [...] / Time adhesive tape Allergy Itching Verified 06/05/25 05:42 amlodipine (From Norvasc) Allergy Swelling Verified 06/05/25 05:42 cat dander Allergy Unknown Verified 06/05/25 05:42 cigarette smoke Allergy Other Verified 06/05/25 05:42 metoprolol (From Lopressor) Allergy Unknown Verified 06/05/25 05:42 nickel Allergy Rash Verified 06/05/25 05:42 naproxen (From Aleve) AdvReac Nausea/Vom/ Verified 06/05/25 05:42 Diarrhea rofecoxib (From Vioxx) AdvReac Upset Verified 06/05/25 05:42 Stomach Sulfa (Sulfonamide AdvReac Other Verified 06/05/25 05:42 Antibiotics) Surgical History History of coronary artery stent placement Social History housing: house Smoking Status: Former smoker ROS ROS ED Constitutional Constitutional ED: Denies chills or fever(s) Eyes Eyes: Denies change in vision or diplopia ENT ENT ED: Denies rhinorrhea or sore throat Cardiovascular Cardiovascular: Reports as per HPI, chest pain, palpitations and radiating jaw, neck or arm pain; Denies leg edema Respiratory/Chest Respiratory/Chest: Reports dyspnea; Denies cough Gastrointestinal Gastrointestinal: Denies abdominal pain, diarrhea, nausea or vomiting Genitourinary Genitourinary ED: Denies dysuria or hematuria Musculoskeletal Musculoskeletal: Denies back pain or neck pain Integumentary Denies abscess or rash Neurologic Neurologic: Denies headache(s), paresthesias or weakness Psychiatric Psychiatric: Denies suicidal thoughts EXAM Physical Exam Const Vital Signs: 06/05/25 05:37 06/05/25 05:42 06/05/25 05:49 Temperature 98.6 F Temperature Source Oral Pulse Rate 96 Respiratory Rate 18 Respiratory Effort Short of Breath Blood Pressure 188/108 H Blood Pressure Mean 134 Pulse Ox 96 99 Oxygen Delivery Method Room Air Room Air 06/05/25 06:00 06/05/25 06:56 Temperature Temperature Source Pulse Rate 76 84 Respiratory Rate 16 17 Respiratory Effort Blood Pressure 184/95 H 179/82 H Blood Pressure Mean 124 114 Pulse Ox 99 99 Oxygen Delivery Method Room Air Room Air Positive well nourished and well developed General Appearance ED: well developed and NAD HEENT Reports moist mucous membranes normocephalic and atraumatic Eyes PERRL and EOMs intact bilaterally Neck full ROM and supple Resp normal respiratory effort and clear to auscultation bilaterally Cardio regular rate, regular rhythm and no murmurs Peripheral Pulses: pulses 2+ throughout GI non-tender and non-distended Auscultation: normoactive bowel sounds Palpation: soft Back/Spine no CVA tenderness General Back: other FROM Extremity normal to inspection General Extremety ED: Negative for edema, pulses abnormal or tenderness General Extremity: Negative for edema or pulses abnormal Neuro oriented x3, CN's II-XII intact bilaterally and no sensory deficits noted Sensorium / Orientation: awake and alert Motor Exam: strength 5/5 throughout Skin no rashes or lesions no (more content not included)... Normal [facility] Eosinophil percentageOrdered By: Jimmy Gray on 06-05-2025 Eosinophils/100 WBC (Bld) 2.6 % 0-5 [facility] Erythrocyte distribution wid th ratioOrdered By: Jimmy Gray on 06-05-2025 Erythrocyte distribution width (RBC) [Ratio] 13.4 % 11.6-14.6 [facility] Erythrocyte distribution wid th standard deviationOrdered By: Jimmy Gray on 06-05-2025 Erythrocyte distribution width (RBC) [Ratio] 42.9 fl 35.1-43.9 [facility] Glomerular filtration rate ( GFR) estimation/1.73 sq m using serum, plasma, or whole bOrdered By: Jimmy Gray on 06-05-2025 GFR/1.73 sq M.predicted among non-blacks MDRD (S/P/Bld) [Vol rate/Area] 41 mL/min/{1.73_m2} Low >60 [facility] Comment on above: mL/min/1.73m2 CKD-EP I Creatinine Equation (2020) H AND P Exam - [place] 06-05-2025 H&P Exam - Hospitalist [facility] Medical Records Department [address] [place] [address] H P Exam - Hospitalist 06/05/25 1122 MR#: [id number] Acct: [id number] Name: TERRI BURCIAGA Rep #: [id number] : 1945 79 From: Alin Helm MD PCP: Dr. Andre Santana MD Status:ADM FELIX Location: [place] [address] HPI - General General Date of Admission: 06/05/25 HPI Narrative TERRI BURCIAGA, is a 79 F who presents to the hospital with palpitations and chest pain. EKG was nonischemic and initial troponin was 9 with subsequent troponin of 13. From a chest pain standpoint she was feeling much better however family noticed that she was little bit confused which is new from yesterday. This is likely due to sleep deprivation as she did not sleep at all last night. UA was unremarkable and chest x-ray was negative for pneumonia. Skin exam does not show any signs of cellulitis and her confusion has resolved however she lives in [place] and the family lives here in [place] and no one can stay with her and so they are concerned about her going home and would like her to be observed overnight. She is afebrile without a leukocytosis and lab work is unremarkable other than a creatinine of 1.33 with GFR of 41 which is at baseline. [facility] Medical History Myocardial infarct Chest pain Hypertension [...] / Time adhesive tape Allergy Itching Verified 06/05/25 05:42 amlodipine (From Norvasc) Allergy Swelling Verified 06/05/25 05:42 cat dander Allergy Unknown Verified 06/05/25 05:42 cigarette smoke Allergy Other Verified 06/05/25 05:42 metoprolol (From Lopressor) Allergy Unknown Verified 06/05/25 05:42 nickel Allergy Rash Verified 06/05/25 05:42 naproxen (From Aleve) AdvReac Nausea/Vom/ Verified 06/05/25 05:42 Diarrhea rofecoxib (From Vioxx) AdvReac Upset Verified 06/05/25 05:42 Stomach Sulfa (Sulfonamide AdvReac Other Verified 06/05/25 05:42 Antibiotics) Family History (Updated 06/05/25 @ 11:[address] Alin Helm MD) Other Heart disease Surgical History History of coronary artery stent placement Social History housing: house Smoking Status: Former smoker ROS Constitutional Constitutional: Denies chills, fatigue, fever(s) or malaise Eyes Eyes: Denies blurry vision ENT HEENT: Denies headache(s) or nasal discharge Cardiovascular Cardiovascular: Reports chest pain and palpitations; Denies dyspnea on exertion or syncope Respiratory/Chest Respiratory/Chest: Denies cough, shortness of breath at rest or shortness of breath with exertion Gastrointestinal Gastrointestinal: Denies constipation, diarrhea, nausea or vomiting Genitourinary Genitourinary: Denies dysuria Neurologic Neurologic: Reports confusion; Denies focal weakness, numbness or tremor(s) Psychiatric Psychiatric: Denies anxiety or depression Vital Signs Vital Signs Vital Signs: 06/05/25 05:37 06/05/25 05:42 06/05/25 05:49 Temperature 98.6 F Temperature Source Oral Pulse Rate 96 Respiratory Rate 18 Respiratory Effort Short of Breath Blood Pressure 188/108 H Blood Pressure Mean 134 Pulse Ox 96 99 Oxygen Delivery Method Room Air Room Air 06/05/25 06:00 06/05/25 06:56 06/05/25 08:00 Temperature Temperature Source Pulse Rate 76 84 88 Respiratory Rate 16 17 17 Respiratory Effort Blood Pressure 184/95 H 179/82 H 165/89 H Blood Pressure Mean 124 114 114 Pulse Ox 99 99 100 Oxygen Delivery Method Room Air Room Air 06/05/25 09:00 06/05/25 10:00 06/05/25 10:56 Temperature 97 F L Temperature Source Pulse Rate 79 75 81 Respiratory Rate 13 17 Respiratory Effort Blood Pressure 149/81 H 148/80 H 159/82 H Blood Pressure Mean 103 102 107 Pulse Ox 97 97 Oxygen Delivery Method Room Air 06/05/25 11:19 Temperature 97.7 F L Temperature Source Temporal Pulse Rate 77 Respiratory Rate 18 Respiratory Effort Blood Pressure 160/77 H Blood Pressure Mean 104 Pulse Ox 98 Oxygen Delivery Method Room Air Weight Weight: 185 lb 10.067 oz Body Mass Index (BMI) 37.5 Phys (more content not included)... Normal [facility] Hematocrit Auto (Bld) [Volum e fraction]Ordered By: Jimmy Gray on 06-05-2025 Hematocrit (Bld) [Volume fraction] 44.6 % 37-47 [facility] Hemoglobin measurementOrdere d By: Jimmy Gray on 06-05-2025 Hemoglobin (Bld) [Mass/Vol] 14.2 g/dL 12.0-15.0 [facility] Immature granulocytes/100 WB C Auto (Bld)Ordered By: Jimmy Gray on 06-05-2025 Immature granulocytes/100 WBC (Bld) 0.300 % 0.0-0.9 [facility] Comment on above: IG% - Immature Granu locytes (promyelocytes, myelocytes and metamyelocytes) > 1% indicates that a LEFT SHIFT is Present. Influenza virus A and B and SARS-CoV-2 (COVID-19) and Respiratory syncytial virus RNAOrdered By: Jimmy Gray on 06-05-2025 SARS-CoV-2 (COVID-19) RNA ARIADNA+probe Ql (Unsp spec) [facility] Ketones Test strip Ql (U)Ord ered By: Jimmy Gray on 06-05-2025 Ketones Ql (U) Negative Negative [facility] L501.4021on 06-05-2025 Trop T High Sen 9 ng/L Normal <=14 [facility] Comment on above: Performed By: #### L 499.0043 #### [facility] [address] [place], [address] M100.678on 06-05-2025 M100.678 Pending SARS-CoV-2 (COVID 19) Negative INFLUENZA A Negative INFLUENZA B Negative RSV PCR Negative Normal [facility] Comment on above: Performed By: #### L 499.0043 #### [facility] [address] [facility] [facility] [place], [place], [address] MCV (mean corpuscular volume ) determinationOrdered By: Jimmy Gray on 06-05-2025 MCV (RBC) [Entitic vol] 86.9 fL 81-99 [facility] Mean corpuscular hemoglobin (MCH) determinationOrdered By: Jimmy Gray on 06-05-2025 MCH (RBC) [Entitic mass] 27.7 pg 27.0-32.0 [facility] Mean corpuscular hemoglobin concentration (MCHC) determinationOrdered By: Jimmy Gray on 06-05-2025 MCHC (RBC) [Mass/Vol] 31.8 g/dL Low 32-36 [facility] Mean platelet volume determi nationOrdered By: Jimmy Gray on 06-05-2025 Platelet mean volume (Bld) [Entitic vol] 10.6 fL 6.2-12.0 [facility] Microscopic analysis of urin e for red blood cells (RBC)Ordered By: Jimmy Gray on 06-05-2025 Microscopic analysis of urine for red blood cells (RBC) 10-25 SEEN /hpf 0-5 [facility] Monocyte percentageOrdered B y: Jimmy Gray on 06-05-2025 Monocytes/100 WBC (Bld) 13.2 % High 0-10 [facility] Mucus LM Ql (Urine sed)Order ed By: Jimmy Gray on 06-05-2025 Mucus Ql (Urine sed) 0 SEEN /hpf [facility] Neutrophil percentageOrdered By: Jimmy Gray on 06-05-2025 Neutrophils/100 WBC (Bld) 54.6 % 47-70 [facility] Nitrite Test strip Ql (U)Ord ered By: Jimmy Gray on 06-05-2025 Nitrite Ql (U) Negative Negative [facility] Nucleated red blood cell per centageOrdered By: Jimmy Gray on 06-05-2025 Nucleated RBC/100 WBC (Bld) [Ratio] 0 % 0-5 [facility] Platelet countOrdered By: Misa Gray on 06-05-2025 Platelets (Bld) [#/Vol] 189 10*3/uL 150-450 [facility] Potassium measurement (mass/ volume)Ordered By: Jimmy Gray on 06-05-2025 Potassium (Unsp spec) [Mass/Vol] 3.8 mmol/L 3.3-5.1 [facility] Protein Test strip Ql (U)Ord ered By: Jimmy Gray on 06-05-2025 Protein Ql (U) 30 mg/dl High Negative [facility] RBC Auto (Bld) [#/Vol]Ordere d By: Jimmy Gray on 06-05-2025 RBC (Bld) [#/Vol] 5.13 10*6/uL 4.2-5.4 [facility] Serum creatinine measurement (mass/volume)Ordered By: Jimmy Gray on 06-05-2025 Creatinine [Mass/Vol] 1.33 mg/dL High 0.70-1.20 [facility] Serum glucose measurement (m ass/volume)Ordered By: Jimmy Gray on 06-05-2025 Glucose [Mass/Vol] 123 mg/dL High 70-99 [facility] Serum or plasma calcium krystin urement (mass/volume)Ordered By: Jimmy Gray on 06-05-2025 Calcium [Mass/Vol] 9.2 mg/dL 7.6-11.0 [facility] Serum or plasma urea nitroge n measurement (mass/volume)Ordered By: Jimmy Gray on 06-05-2025 Urea nitrogen [Mass/Vol] 24 mg/dL High 4-19 [facility] Sodium levelOrdered By: Ras Gray on 06-05-2025 Sodium [Moles/Vol] 138 mmol/L 133-145 [facility] Squamous epithelial cells de tection in urine sediment by light microscopyOrdered By: Jimmy Gray on 06-05-2025 Epithelial cells.squamous LM Ql (Urine sed) 0 SEEN /hpf 5-10 [facility] Troponin T HS 2 HRon 025 Trop T High Sen 13 ng/L Normal <=14 [facility] Comment on above: Performed By: #### L 499.0042 #### [facility] [address] [place] [id number] Troponin T HS 4 HRon 025 Trop T High Sen 12 ng/L Normal <=14 [facility] Comment on above: Performed By: #### L 499.0043 #### [facility] [address] [place] [id number] Troponin T.cardiac [Mass/vol ume] in Serum or Plasma by High sensitivity methodOrdered By: Jimmy Gray on 06-05-2025 Troponin T.cardiac High sensitivity method [Mass/Vol] 12 ng/L <14 [facility] Troponin T.cardiac High sensitivity method [Mass/Vol] 13 ng/L <14 [facility] Troponin T.cardiac High sensitivity method [Mass/Vol] 9 ng/L <14 [facility] Comment on above: Delta: 8 on 02/28/25 -1324 Urinalysis, Completeon 06-05 RBC 10-25 SEEN Normal 0-5 [facility] Comment on above: Order Comment: FARHAT CTOR TO SPECIFY Performed By: #### L 400.0001 #### [facility] [address] [facility] [id number] BACTERIA 0 SEEN Normal None Seen [facility] Comment on above: Order Comment: FARHAT CTOR TO SPECIFY Performed By: #### L 400.0001 #### [facility] [address] [place], [address] EPI,SQUAMOUS 0 SEEN Normal 5-10 [facility] Comment on above: Order Comment: FARHAT CTOR TO SPECIFY Performed By: #### L 400.0001 #### [facility] [address] [place], [address] Mucus Ql (Urine sed) [address] [facility] Comment on above: Order Comment: FARHAT CTOR TO SPECIFY Performed By: #### L 400.0001 #### [facility] [address] [place], [address] WBC 0 SEEN Normal 0-5 [facility] Comment on above: Order Comment: FARHAT CTOR TO SPECIFY Performed By: #### L 400.0001 #### [facility] [address] [place], [address] Urine clarityOrdered By: Abi Gray on 06-05-2025 Clarity (U) Clear Clear [facility] Urine color determinationOrd ered By: Jimmy Gray on 06-05-2025 Color (U) Yellow Yellow [facility] Urine glucose detectionOrder ed By: Jimmy Gray on 06-05-2025 Glucose Ql (U) Normal mg/dl Normal [facility] Urine leukocyte esterase det ection by dipstickOrdered By: Jimmy Gray on 06-05-2025 Leukocyte esterase Test strip Ql (U) 25 /ul High Negative [facility] Urine pHOrdered By: Jimmy Gray on 06-05-2025 pH (U) 6.0 [pH] 5.0 - 8.0 [facility] Urine sediment bacteria coun t by microscopy (number/high power field)Ordered By: Jimmy Gray on 06-05-2025 Bacteria LM.HPF (Urine sed) [#/Area] 0 /[HPF] None Seen [facility] Urine specific gravity measu rementOrdered By: Jimmy Gray on 06-05-2025 Specific gravity (U) [Rel density] 1.010 1.002-1.030 [facility] Urine urobilinogen measureme ntOrdered By: Jimmy Gray on 06-05-2025 Urobilinogen Ql (U) Normal mg/dl Normal [facility] White blood cell (WBC) count Ordered By: Jimmy Gray on 06-05-2025 WBC (Bld) [#/Vol] 7.8 10*3/uL 4.4-11.0 [facility] White blood cell countOrdere d By: Jimmy Gray on 06-05-2025 White blood cell count 0 SEEN /hpf 0-5 [facility] CNOVon 05-16-2025 CNOV Normal [facility] CNOVon 04-24-2025 CNOV Normal [facility] US Thyroid glandon [facility] Radiology Study observation (narrative) [facility] Basic metabolic 2000 panelon 04-21-2025 Anion gap [Moles/Vol] 12 mmol/L Normal 8-15 [facility] Comment on above: Order Comment: Speci men Type: BLOOD SPECIMENOrdering Facility: [facility] Address: [address] [place] [address] Performed By: #### 2 4321-2 ####[facility] LABCLIA [id number] [place] [address] [place] Calcium [Mass/Vol] 9.6 mg/dL Normal 8.5-10.2 [facility] Comment on above: Order Comment: Speci men Type: BLOOD SPECIMENOrdering Facility: [facility] Address: [address] [place] [address] Performed By: #### 2 4321-2 ####[facility] LABCLIA [id number] [place] [address] [place] Chloride [Moles/Vol] 107 mmol/L Normal 98-107 [facility] Comment on above: Order Comment: Speci men Type: BLOOD SPECIMENOrdering Facility: [facility] Address: [address] [place] [address] Performed By: #### 2 4321-2 ####[facility] LABCLIA [id number] [id number] [address] [place] CO2 [Moles/Vol] 22 mmol/L Normal 22-30 [facility] Comment on above: Order Comment: Speci men Type: BLOOD SPECIMENOrdering Facility: [facility] Address: [address] [place] [address] Performed By: #### 2 4321-2 ####[facility] LABCLIA [id number] [place] [id number] [place] Creatinine [Mass/Vol] 1.26 mg/dL High 0.58-0.96 [facility] Comment on above: Order Comment: Speci men Type: BLOOD SPECIMENOrdering Facility: [facility] Address: [address] [place] [address] Performed By: #### 2 4321-2 ####[facility] LABIA [id number] [address] STATES OF [facility] Creatinine and Glomerular filtration rate.predicted panel (S/P/Bld) 44 mL/min/1.73m??? Low >=60 [facility] Comment on above: Order Comment: Speci men Type: BLOOD SPECIMENOrdering Facility: [facility] Address: [address] [place] [address] Result Comment: Nicole mated Glomerular Filtration Rate [...] actual GFR. Performed By: #### 2 4321-2 ####[facility] LABIA [id number] [place] [id number] [place] Glucose [Mass/Vol] 88 mg/dL Normal 74-99 [facility] Comment on above: Order Comment: Speci men Type: BLOOD SPECIMENOrdering Facility: [facility] Address: [address], [place] [address] Result Comment: The [place] Diabetes Association (ADA) provides guidance for cutoff [...] Standards of Medical Care in Diabetes 2016, [place] [employer]. Diabetes Care. 2016.39(Suppl 1). Performed By: #### 2 4321-2 ####[facility] LABIA [id number] [place] [address] [place] Potassium [Moles/Vol] 4.7 mmol/L Normal 3.7-5.1 [facility] Comment on above: Order Comment: Speci men Type: BLOOD SPECIMENOrdering Facility: [facility] Address: [address] [place] [address] Performed By: #### 2 4321-2 ####[facility] LABIA [id number] [place] [address] [place] Sodium [Moles/Vol] 141 mmol/L Normal 136-144 [facility] Comment on above: Order Comment: Speci men Type: BLOOD SPECIMENOrdering Facility: [facility] Address: [address] [place] [address] Performed By: #### 2 4321-2 ####[facility] LABIA [id number] [place] [id number] [place] Urea nitrogen [Mass/Vol] 28 mg/dL High 7-21 [facility] Comment on above: Order Comment: Speci men Type: BLOOD SPECIMENOrdering Facility: [facility] Address: [address] [place] [address] Performed By: #### 2 4321-2 ####[facility] LABCLIA [id number] [address] [place] [address] [place] CBC W Auto Differential pane l (Bld)on 04-21-2025 Basophils (Bld) [#/Vol] 0.04 10*3/uL Normal <0.11 [facility] Comment on above: Order Comment: Speci men Type: BLOOD SPECIMENOrdering Facility: [facility] Address: [address] [place] [address] Performed By: #### 5 7021-8 ####[facility] LABCLIA [id number] [address], [facility]95 [place] Basophils/100 WBC (Bld) 0.6 % Normal [facility] Comment on above: Order Comment: Speci men Type: BLOOD SPECIMENOrdering Facility: [facility] Address: [address] [place] [address] Performed By: #### 5 7021-8 ####[facility] LABCLIA [id number] [address], [place] [address] [place] Differential cell count method Nom (Bld) Auto Normal [facility] Comment on above: Order Comment: Speci men Type: BLOOD SPECIMENOrdering Facility: [facility] Address: [address] [place] [address] Performed By: #### 5 7021-8 ####[facility] LABCLIA [id number] [address], [facility] [place] Eosinophils (Bld) [#/Vol] 0.15 10*3/uL Normal <0.46 [facility] Comment on above: Order Comment: Speci men Type: BLOOD SPECIMENOrdering Facility: [facility] Address: [address] [place] [address] Performed By: #### 5 7021-8 ####[facility] LABCLIA [id number] [address], [facility] [place] Eosinophils/100 WBC (Bld) 2.4 % Normal [facility] Comment on above: Order Comment: Speci men Type: BLOOD SPECIMENOrdering Facility: [facility] Address: [address] [place] [address] Performed By: #### 5 7021-8 ####[facility] LABIA [id number] [place] [address] [place] Erythrocyte distribution width (RBC) [Ratio] 13.7 % Normal 11.5-15.0 [facility] Comment on above: Order Comment: Speci men Type: BLOOD SPECIMENOrdering Facility: [facility] Address: [address] [place] [address] Performed By: #### 5 7021-8 ####[facility] LABIA [id number] [place] [address] [place] Hematocrit (Bld) [Volume fraction] 39.7 % Normal 36.0-46.0 [facility] Comment on above: Order Comment: Speci men Type: BLOOD SPECIMENOrdering Facility: [facility] Address: [address] [place] [address] Performed By: #### 5 7021-8 ####[facility] LABIA [id number] [place] [address] [place] Hemoglobin (Bld) [Mass/Vol] 12.6 g/dL Normal 11.5-15.5 [facility] Comment on above: Order Comment: Speci men Type: BLOOD SPECIMENOrdering Facility: [facility] Address: [address] [place] [address] Performed By: #### 5 7021-8 ####[facility] LABIA [id number] [place] [address] [place] Immature granulocytes (Bld) [#/Vol] 10*3/uL Normal <0.10 [facility] Comment on above: Order Comment: Speci men Type: BLOOD SPECIMENOrdering Facility: [facility] Address: [address] [place] [address] Performed By: #### 5 7021-8 ####[facility] LABCLIA [id number] [place] [address] [place] Immature granulocytes/100 WBC (Bld) 0.2 % Normal [facility] Comment on above: Order Comment: Speci men Type: BLOOD SPECIMENOrdering Facility: [facility] Address: [address] [place] [address] Performed By: #### 5 7021-8 ####[facility] LABCLIA [id number] [place] [address] [place] Lymphocytes (Bld) [#/Vol] 1.59 10*3/uL Normal 1.00-4.00 [facility] Comment on above: Order Comment: Speci men Type: BLOOD SPECIMENOrdering Facility: [facility] Address: [address] [place] [address] Performed By: #### 5 7021-8 ####[facility] LABIA [id number] [address] [place] Lymphocytes/100 WBC (Bld) 25.0 % Normal [facility] Comment on above: Order Comment: Speci men Type: BLOOD SPECIMENOrdering Facility: [facility] Address: [address] [place] [address] Performed By: #### 5 7021-8 ####[facility] LABIA [id number] [place] [address] [place] MCH (RBC) [Entitic mass] 27.6 pg Normal 26.0-34.0 [facility] Comment on above: Order Comment: Speci men Type: BLOOD SPECIMENOrdering Facility: [facility] Address: [address] [place] [address] Performed By: #### 5 7021-8 ####[facility] LABCLIA [id number] [place] [id number] [place] MCHC (RBC) [Mass/Vol] 31.7 g/dL Normal 30.5-36.0 [facility] Comment on above: Order Comment: Speci men Type: BLOOD SPECIMENOrdering Facility: [facility] Address: [address] [place] [address] Performed By: #### 5 7021-8 ####[facility] LABCLIA [id number] [address] [address] [place] MCV (RBC) [Entitic vol] 86.9 fL Normal 80.0-100.0 [facility] Comment on above: Order Comment: Speci men Type: BLOOD SPECIMENOrdering Facility: [facility] Address: [address] [place] [address] Performed By: #### 5 7021-8 ####[facility] LABCLIA [id number] [place] [address] [place] Monocytes (Bld) [#/Vol] 0.77 10*3/uL Normal <0.87 [facility] Comment on above: Order Comment: Speci men Type: BLOOD SPECIMENOrdering Facility: [facility] Address: [address] [place] [address] Performed By: #### 5 7021-8 ####[facility] LABCLIA [id number] [place] [address] [place] Monocytes/100 WBC (Bld) 12.1 % Normal [facility] Comment on above: Order Comment: Speci men Type: BLOOD SPECIMENOrdering Facility: [facility] Address: [address] [place] [address] Performed By: #### 5 7021-8 ####[facility] LABCLIA [id number] [place] [address] [place] Neutrophils (Bld) [#/Vol] 3.79 10*3/uL Normal 1.45-7.50 [facility] Comment on above: Order Comment: Speci men Type: BLOOD SPECIMENOrdering Facility: [facility] Address: [address] [place] [address] Performed By: #### 5 7021-8 ####[facility] LABCLIA [id number] [place] [address] [place] Neutrophils/100 WBC (Bld) 59.7 % Normal [facility] Comment on above: Order Comment: Speci men Type: BLOOD SPECIMENOrdering Facility: [facility] Address: [address] [place] [address] Performed By: #### 5 7021-8 ####[facility] LABCLIA [id number] [place] [address] [place] Nucleated RBC (Bld) [#/Vol] 10*3/uL Normal <0.01 [facility] Comment on above: Order Comment: Speci men Type: BLOOD SPECIMENOrdering Facility: [facility] Address: [address] [place] [address] Performed By: #### 5 7021-8 ####[facility] LABIA [id number] [place] [address] [place] Nucleated RBC/100 WBC (Bld) [Ratio] 0.0 /100 WBC Normal [facility] Comment on above: Order Comment: Speci men Type: BLOOD SPECIMENOrdering Facility: [facility] Address: [address] [place] [address] Performed By: #### 5 7021-8 ####[facility] LABIA [id number] [place] [address] [place] Platelet mean volume (Bld) [Entitic vol] 11.3 fL Normal 9.0-12.7 [facility] Comment on above: Order Comment: Speci men Type: BLOOD SPECIMENOrdering Facility: [facility] Address: [address] [place] [address] Performed By: #### 5 7021-8 ####[facility] LABIA [id number] [place] [address] [place] Platelets (Bld) [#/Vol] 181 10*3/uL Normal 150-400 [facility] Comment on above: Order Comment: Speci men Type: BLOOD SPECIMENOrdering Facility: [facility] Address: [address] [place] [address] Performed By: #### 5 7021-8 ####[facility] LABCLIA [id number] [place] [address] [place] RBC (Bld) [#/Vol] 4.57 10*6/uL Normal 3.90-5.20 [facility] Comment on above: Order Comment: Speci men Type: BLOOD SPECIMENOrdering Facility: [facility] Address: [address] [place] [address] Performed By: #### 5 7021-8 ####[facility] LABCLIA [id number] [place] [address] [place] WBC (Bld) [#/Vol] 6.35 10*3/uL Normal 3.70-11.00 [facility] Comment on above: Order Comment: Speci men Type: BLOOD SPECIMENOrdering Facility: [facility] Address: [address] [place] [address] Performed By: #### 5 7021-8 ####[facility] LABIA [id number] [place] [address] [place] XR CERVICAL 4V AP/LAT/OBLon 04-21-2025 XR CERVICAL 4V AP/LAT/OBL Normal [facility] CNOVon 04-17-2025 CNOV Normal [facility] ECG COMPLETEon 04-17-2025 ECG COMPLETE Normal [facility] CNPTOUTREACHon 03-15-2025 CNPTOUTREACH Normal [facility] CNOVon 03-07-2025 CNOV Normal [facility] Absolute lymphocyte countOrd ered By: Bertin Field on 02-28-2025 Lymphocytes Auto (Unsp spec) [#/Vol] 1.18 10*3/uL 0.83-4.51 [facility] Absolute neutrophil countOrd ered By: Bertin Field on 02-28-2025 Neutrophils (Bld) [#/Vol] 3.2 10*3/uL 2.0-7.7 [facility] Anion gap in Serum or Plasma Ordered By: Bertin Field on 02-28-2025 Anion gap [Moles/Vol] 10 mmol/L 5-15 [facility] Automated lymphocyte count a s percentage of total leukocytesOrdered By: Bertin Field on 02-28-2025 Lymphocytes/100 WBC Auto (Unsp spec) 23.0 % - [facility] BUN/creatinine ratioOrdered By: Bertin Field on 02-28-2025 Urea nitrogen/Creatinine [Mass ratio] 19.7 mg/mg - [facility] Basic Metabolic Profile (BMP )on 02-28-2025 BUN/CRE 19.7 RATIO Normal - [facility] Comment on above: Performed By: #### L 300.8000 #### [facility] [facility] [address] [place], [address] Calcium [Mass/Vol] 9.5 mg/dL Normal 7.6-11.0 [facility] Comment on above: Performed By: #### L 300.8000 #### [facility] [address] [place], [address] Chloride [Moles/Vol] 104 mmol/L Normal 98-108 [facility] Comment on above: Performed By: #### L 300.8000 #### [facility] [address] [place], [address] CO2 [Moles/Vol] 22.3 mmol/L Normal 21.0-32.0 [facility] Comment on above: Performed By: #### L 300.8000 #### [facility] [address] [place], [address] Creatinine [Mass/Vol] 1.21 mg/dL High 0.70-1.20 [facility] Comment on above: Performed By: #### L 300.8000 #### [facility] [address] [place], [address] ECRCL 36.16 ml/min Low 50-250 [facility] Comment on above: Performed By: #### L 300.8000 #### [facility] [address] [place], [address] GAP 10 Normal 5-15 [facility] Comment on above: Performed By: #### L 300.8000 #### [facility] [address] [place], [address] GFR/1.73 sq M.predicted among non-blacks MDRD (S/P/Bld) [Vol rate/Area] 46 mL/min/{1.73_m2} Low >60 [facility] Comment on above: Result Comment: mL/m in/1.73m2 CKD-EPI Creatinine Equation (2020) Performed By: #### L 300.8000 #### [facility] [address] [place], [address] Glucose [Mass/Vol] 98 mg/dL Normal 70-99 [facility] Comment on above: Performed By: #### L 300.8000 #### [facility] [address] [place], [address] Potassium [Moles/Vol] 5.8 mmol/L High 3.3-5.1 [facility] Comment on above: Result Comment: Hemo lysis present, Results??could be affected. ?? Performed By: #### L 300.8000 #### [facility] [address] [place], [address] Sodium [Moles/Vol] 137 mmol/L Normal 133-145 [facility] Comment on above: Performed By: #### L 300.8000 #### [facility] [address] [place], [address] Urea nitrogen [Mass/Vol] 24 mg/dL High 4-19 [facility] Comment on above: Performed By: #### L 300.8000 #### [facility] [address] [place], [address] Basophil percentageOrdered B y: Bertin Field on 02-28-2025 Basophils/100 WBC (Bld) 0.6 % 0-1 [facility] CBC W/Diff, Automatedon 02-08 Absolute Lymph 1.18 X10 3/uL Normal 0.83-4.51 [facility] Comment on above: Performed By: #### L 300.8000 #### [facility] [address] [place], [address] Absolute Neut 3.2 X10 3/uL Normal 2.0-7.7 [facility] Comment on above: Performed By: #### L 300.8000 #### [facility] [address] [place], [address] Basophils/100 WBC (Bld) 0.6 % Normal 0-1 [facility] Comment on above: Performed By: #### L 300.8000 #### [facility] [address] [place], [address] Eosinophils/100 WBC (Bld) 2.5 % Normal 0-5 [facility] Comment on above: Performed By: #### L 300.8000 #### [facility] [address] [place], [address] Erythrocyte distribution width (RBC) [Ratio] 13.5 % Normal 11.6-14.6 [facility] Comment on above: Performed By: #### L 300.8000 #### [facility] [address] [place], [address] Hematocrit (Bld) [Volume fraction] 40.5 % Normal 37-47 [facility] Comment on above: Performed By: #### L 300.8000 #### [facility] [address] [place], [address] Hemoglobin (Bld) [Mass/Vol] 13.2 g/dL Normal 12.0-15.0 [facility] Comment on above: Performed By: #### L 300.8000 #### [facility] [address] [place], [address] IG% 0.200 Normal 0.0-0.9 [facility] Comment on above: Result Comment: IG% - Immature Granulocytes (promyelocytes, myelocytes and metamyelocytes) > 1% indicates that a LEFT SHIFT is Present. Performed By: #### L 300.8000 #### [facility] [address] [place], [address] Lymphocytes/100 WBC (Bld) 23.0 % Normal 19-41 [facility] Comment on above: Performed By: #### L 300.8000 #### [facility] [address] [place], [address] MCH (RBC) [Entitic mass] 27.7 pg Normal 27.0-32.0 [facility] Comment on above: Performed By: #### L 300.8000 #### [facility] [address] [place], [address] MCHC (RBC) [Mass/Vol] 32.6 g/dL Normal 32-36 [facility] Comment on above: Performed By: #### L 300.8000 #### [facility] [address] [place], [address] MCV (RBC) [Entitic vol] 85.1 fL Normal 81-99 [facility] Comment on above: Performed By: #### L 300.8000 #### [facility] [address] [place], [address] Monocytes/100 WBC (Bld) 12.3 % High 0-10 [facility] Comment on above: Performed By: #### L 300.8000 #### [facility] [address] [place], [address] Neutrophils/100 WBC (Bld) 61.4 % Normal 47-70 [facility] Comment on above: Performed By: #### L 300.8000 #### [facility] [address] [place], [address] Nucleated RBC (Bld) [#/Vol] 0 10*3/uL Normal 0-5 [facility] Comment on above: Performed By: #### L 300.8000 #### [facility] [address] [place], [address] Platelet mean volume (Bld) [Entitic vol] 11.3 fL Normal 6.2-12.0 [facility] Comment on above: Performed By: #### L 300.8000 #### [facility] [address] [place], [address] Platelets (Bld) [#/Vol] 186 10*3/uL Normal 150-450 [facility] Comment on above: Performed By: #### L 300.8000 #### [facility] [address] [place], [address] RBC (Bld) [#/Vol] 4.76 10*6/uL Normal 4.2-5.4 [facility] Comment on above: Performed By: #### L 300.8000 #### [facility] [address] [place], [address] RDW SD 41.8 fl Normal 35.1-43.9 [facility] Comment on above: Performed By: #### L 300.8000 #### [facility] [address] [place], [address] WBC (Bld) [#/Vol] 5.1 10*3/uL Normal 4.4-11.0 [facility] Comment on above: Performed By: #### L 300.8000 #### [facility] [address] [place], [address] Carbon dioxide, total [Moles /volume] in Central venous bloodOrdered By: Bertin Field on 02-28-2025 CO2 [Moles/Vol] 22.3 mmol/L 21.0-32.0 [facility] Chest PA and Lateralon 02-28 Chest PA and Lateral [facility] Imaging Services [address] [place], [place] [address] Chest PA and Lateral MR#: [id number] Acct: [id number] Name: TERRI BURCIAGA Rep #: [id number] : 1945 F 79 From: Dustin Field MD PCP: Dr. Andre Santana MD Status: REG ER Study: Chest PA and Lateral Date of Exam: 02/28/25 Exam# [id number] Ordering Dr: Bertin Field DO EXAM: XR Chest, 2 Views CLINICAL INDICATION: CHEST PAIN TECHNIQUE: Frontal and lateral views of the chest. COMPARISON: No relevant prior studies available. FINDINGS: LUNGS AND PLEURAL SPACES: Unremarkable. No consolidation. No pneumothorax. HEART: Unremarkable. No cardiomegaly. MEDIASTINUM: Unremarkable. Normal mediastinal contour. BONES/JOINTS: Unremarkable. No acute fracture. RAD/Chest PA and Lateral IMPRESSION: No acute cardiopulmonary process. Reading Location: [facility] CC: Dr. Bertin Field DO; Dr. Andre Santana MD Consumer Credit Counselor: Signed Normal [facility] Chloride assayOrdered By: Kyle Field on 02-28-2025 Chloride [Moles/Vol] 104 mmol/L 98-108 [facility] D-Dimer Quantitative (DVT/PE )on 02-28-2025 D-DIMER QUANT 0.47 FEU/ug/m Normal 0.27-0.49 [facility] Comment on above: Result Comment: NORM AL D-Dimer level (<0.50) indicates no DVT or PE. Performed By: #### L 300.8000 #### [facility] [address] [place], [place], [address] Emergency Department Summary on 02-28-2025 Emergency Department Summary [facility] Medical Records Department [address] [place] [address] Emergency Department Summary 02/28/25 MR#: [id number] Acct: [id number] Name: TERRI BURCIAGA Rep #: [id number] : 1945 79 From: Bertin Shukla PCP: [...] Recent Immobilization or Prior DVT or PE [facility] Medical History Myocardial infarct Chest pain Hypertension [...] 2+ thro (more content not included)... Normal [facility] Eosinophil percentageOrdered By: Bertin Field on 02-28-2025 Eosinophils/100 WBC (Bld) 2.5 % 0-5 [facility] Erythrocyte distribution wid th ratioOrdered By: Bertin Field on 02-28-2025 Erythrocyte distribution width (RBC) [Ratio] 13.5 % 11.6-14.6 [facility] Erythrocyte distribution wid th standard deviationOrdered By: Bertin Field on 02-28-2025 Erythrocyte distribution width (RBC) [Ratio] 41.8 fl 35.1-43.9 [facility] Glomerular filtration rate ( GFR) estimation/1.73 sq m using serum, plasma, or whole bOrdered By: Bertin Field on 02-28-2025 GFR/1.73 sq M.predicted among non-blacks MDRD (S/P/Bld) [Vol rate/Area] 46 mL/min/{1.73_m2} Low >60 [facility] Comment on above: mL/min/1.73m2 CKD-EP I Creatinine Equation (2020) Hematocrit Auto (Bld) [Volum e fraction]Ordered By: Bertin Field on 02-28-2025 Hematocrit (Bld) [Volume fraction] 40.5 % 37-47 [facility] Hemoglobin measurementOrdere d By: Bertin Field on 02-28-2025 Hemoglobin (Bld) [Mass/Vol] 13.2 g/dL 12.0-15.0 [facility] Immature granulocytes/100 WB C Auto (Bld)Ordered By: Bertin Field on 02-28-2025 Immature granulocytes/100 WBC (Bld) 0.200 % 0.0-0.9 [facility] Comment on above: IG% - Immature Granu locytes (promyelocytes, myelocytes and metamyelocytes) > 1% indicates that a LEFT SHIFT is Present. L499.0042on 02-28-2025 Trop T High Sen 9 ng/L Normal <=14 [facility] Comment on above: Performed By: #### L 499.0043 #### [facility] [address] [place], [address] L499.0043on 02-28-2025 Trop T High Sen Normal <=14 [facility] Comment on above: Result Comment: Canc elled via OM: Order cancelled - Patient discharged Performed By: #### L 499.0043 #### [facility] [address] [place], [address] L501.4021on 02-28-2025 Trop T High Sen 8 ng/L Normal <=14 [facility] Comment on above: Result Comment: Hemo lysis present, Results??could be affected. ?? Performed By: #### L 300.8000 #### [facility] [address] [place], [address] MCV (mean corpuscular volume ) determinationOrdered By: Bertin Field on 02-28-2025 MCV (RBC) [Entitic vol] 85.1 fL 81-99 [facility] Mean corpuscular hemoglobin (MCH) determinationOrdered By: Bertin Field on 02-28-2025 MCH (RBC) [Entitic mass] 27.7 pg 27.0-32.0 [facility] Mean corpuscular hemoglobin concentration (MCHC) determinationOrdered By: Bertin Field on 02-28-2025 MCHC (RBC) [Mass/Vol] 32.6 g/dL 32-36 [facility] Mean platelet volume determi nationOrdered By: Bertin Field on 02-28-2025 Platelet mean volume (Bld) [Entitic vol] 11.3 fL 6.2-12.0 [facility] Monocyte percentageOrdered B y: Bertin Field on 02-28-2025 Monocytes/100 WBC (Bld) 12.3 % High 0-10 [facility] Neutrophil percentageOrdered By: Bertin Field on 02-28-2025 Neutrophils/100 WBC (Bld) 61.4 % 47-70 [facility] Nucleated red blood cell per centageOrdered By: Bertin Field on 02-28-2025 Nucleated RBC/100 WBC (Bld) [Ratio] 0 % 0-5 [facility] Platelet countOrdered By: Kyle Field on 02-28-2025 Platelets (Bld) [#/Vol] 186 10*3/uL 150-450 [facility] Potassiumon 02-28-2025 Potassium [Moles/Vol] 4.2 mmol/L Normal 3.3-5.1 [facility] Comment on above: Result Comment: Hemo lysis present, Results??could be affected. ?? Performed By: #### L 499.0043 #### [facility] [address] [place], [address] Potassium measurement (mass/ volume)Ordered By: Bertin Field on 02-28-2025 Potassium (Unsp spec) [Mass/Vol] 4.2 mmol/L 3.3-5.1 [facility] Comment on above: Hemolysis present, R esults could be affected. RBC Auto (Bld) [#/Vol]Ordere d By: Bertin Le on 02-28-2025 RBC (Bld) [#/Vol] 4.76 10*6/uL 4.2-5.4 [facility] Serum creatinine measurement (mass/volume)Ordered By: Bertin Field on 02-28-2025 Creatinine [Mass/Vol] 1.21 mg/dL High 0.70-1.20 [facility] Serum glucose measurement (m ass/volume)Ordered By: Bertin Field on 02-28-2025 Glucose [Mass/Vol] 98 mg/dL 70-99 [facility] Serum or plasma calcium krystin urement (mass/volume)Ordered By: Bertin Field on 02-28-2025 Calcium [Mass/Vol] 9.5 mg/dL 7.6-11.0 [facility] Serum or plasma urea nitroge n measurement (mass/volume)Ordered By: Bertin Field on 02-28-2025 Urea nitrogen [Mass/Vol] 24 mg/dL High 4-19 [facility] Sodium levelOrdered By: Bertin Field on 02-28-2025 Sodium [Moles/Vol] 137 mmol/L 133-145 [facility] Troponin T.cardiac [Mass/vol ume] in Serum or Plasma by High sensitivity methodOrdered By: Bertin Field on 02-28-2025 Troponin T.cardiac High sensitivity method [Mass/Vol] 9 ng/L <14 [facility] Troponin T.cardiac High sensitivity method [Mass/Vol] 8 ng/L <14 [facility] Comment on above: Hemolysis present, R esults could be affected. White blood cell (WBC) count Ordered By: Bertin Field on 02-28-2025 WBC (Bld) [#/Vol] 5.1 10*3/uL 4.4-11.0 [facility] CNOVon 02-06-2025 CNOV Normal [facility] BD DXA - AXIAL SKELETONon BD DXA - AXIAL SKELETON Normal [facility] No Panel InformationOrdered By: Matty Hawkins on 01-16-2025 [facility] [address] [place] [address] CR - Individual Treatment Plan MR#: [id number] Acct: [id number] Name: TERRI BURCIAGA Rep #:[id number] : 1945 79 From: Matty Biggs [...] BMI: 35.3 Core - 30-Day Assessment Hypertension [employer] Hypertension Guidelines Reassessment Notes & Comments:: Pt's BP's are slightly elevated. Low sodium diet is encouraged along with weight loss. Core - Final Assessment Hypertension [employer] Hypertension Guidelines Reassessment Notes & Comments:: Pt's BP's are slightly elevated. Low sodium diet is encouraged along with weight loss. Core - 90 Day Assessment Visit Date of Eval: 01/12/25 Session #:: 25 Medica (more content not included)... [facility] CNPNon 12-26-2024 CNPN Normal [facility] 25([place])[facility]3 [facility] 25-hydroxyvitamin D3 [Mass/Vol] 61.9 ng/mL Normal 31.0-80.0 [facility] Comment on above: Order Comment: Speci men Type: BLOOD SPECIMENOrdering Facility: [facility] Address: [address] [place] [address] Performed By: #### 1 989-3 ####[facility] LABCLIA [id number] [address] OF [place] C3 SerPl-mCncon 12-20-2024 Complement C3 [Mass/Vol] 156 mg/dL Normal 86-166 [facility] Comment on above: Order Comment: Speci men Type: BLOOD SPECIMENOrdering Facility: [facility] Address: [address] [place] [address] Performed By: #### 2 885-2, 4485-9, 4498-2 ####[facility] LABCLIA [id number] [place] [address] [place] C4 SerPl-mCncon 12-20-2024 Complement C4 [Mass/Vol] 30 mg/dL Normal 13-46 [facility] Comment on above: Order Comment: Speci men Type: BLOOD SPECIMENOrdering Facility: [facility] Address: [address] [place] [address] Performed By: #### 2 885-2, 4485-9, 4498-2 ####[facility] LABCLIA [id number] [place] [address] [place] Collagen crosslinked C-telop eptide [Mass/Vol]on 12-20-2024 C TELOPEPTIDE, BETA CROSS LINKED 579 pg/mL Normal 152-858 [facility] Comment on above: Order Comment: Speci men Type: BLOOD SPECIMENOrdering Facility: [facility] Address: [address] [place] [address] Performed By: #### 4 1171-0 ####[facility] LABCLIA [id number] [place] [id number] [place] IMMUNOFIXATION SCREEN, SERUM on 12-20-2024 INTERPRETATION (MPA) Normal [facility] Comment on above: Order Comment: Speci men Type: BLOOD SPECIMENOrdering Facility: [facility] Address: [address] [place] [address] Performed By: #### I FES ####[facility] LABCLIA [id number] [address] [place] MPA RESULT A poorly defined reg ion of restricted mobility is present that may represent an M protein. Abnormal No M protein is identified. [facility] Comment on above: Order Comment: Speci men Type: BLOOD SPECIMENOrdering Facility: [facility] Address: [address] [place] [address] Performed By: #### I FES ####[facility] LABCLIA [id number] [address] STAFF REVIEW (MPA) Reviewed by Gabriela lucas MD [facility] Comment on above: Order Comment: Speci men Type: BLOOD SPECIMENOrdering Facility: [facility] Address: [address] [place] [address] Performed By: #### I FES ####[facility] LABIA [id number] [address] OF [facility]/IRVING,FREE,SERon 2024 Immunoglobulin light chains.kappa.free (S) [Mass/Vol] 47.1 mg/L High 3.3-19.4 [facility] Comment on above: Order Comment: Speci men Type: BLOOD SPECIMENOrdering Facility: [facility] Address: [address] [place] [address] Result Comment: Rare ly, increased serum free light chains levels may not be detected or accurately quantified due to prozone phenomenon or in high viscosity samples using this immunoturbidimetric assay. Correlation with other laboratory results and clinical findings is recommended.The [place] Free Light Chain was performed using the Binding Site Optilite immunoturbidimetric method. Result obtained with different assay methods or kits cannot be used interchangeably. Performed By: #### K LFRS ####[facility] LABIA [id number] [address] Immunoglobulin light chains.kappa/Immunogl obulin light chains.lambda (S) [Mass ratio] 1.36 Normal 0.26-1.65 [facility] Comment on above: Order Comment: Speci men Type: BLOOD SPECIMENOrdering Facility: [facility] Address: [address] [place] [address] Performed By: #### K LFRS ####[facility] LABCLIA [id number] [place] [address] [place] Immunoglobulin light chains.lambda.free [Mass/Vol] 34.7 mg/L High 5.7-26.3 [facility] Comment on above: Order Comment: Speci men Type: BLOOD SPECIMENOrdering Facility: [facility] Address: [address] [place] [address] Result Comment: Rare ly, increased serum free [...] used interchangeably. Performed By: #### K LFRS ####[facility] LABCLIA [id number] [place] [address] [place] MONOCLONAL PROT UR W/INTERPo n 12-20-2024 STAFF REVIEW ([facility]) Reviewed by Gabriela lucas MD [facility] Comment on above: Order Comment: Speci men Type: URINE SPECIMENOrdering Facility: [facility] Address: [address] [place] [address] Performed By: #### U RMPA ####[facility] LABCLIA [id number] [place] [address] [place] UMPA RESULT No M protein is identified. Normal No M protein is identified. [facility] Comment on above: Order Comment: Speci men Type: URINE SPECIMENOrdering Facility: [facility] Address: [address] [place] [address] Performed By: #### U RMPA ####[facility] LABCLIA [id number] [place] [address] [place] Magnesium SerPl-mCncon 12-20 Magnesium [Mass/Vol] 2.1 mg/dL Normal 1.7-2.3 [facility] Comment on above: Order Comment: Nixoni oliva Type: BLOOD SPECIMENOrdering Facility: [facility] Address: [address] [place] [address] Performed By: #### 2 777-1, 89144-6 ####[facility] STEPHANIE [facility] [id number] [place] [id number] [place] POLYMYOSITIS AND DERMATOMYOS ITIS PANELon 12-20-2024 [facility] INTERP COMMENT See Note Normal [facility] Comment on above: Order Comment: Lisa baptiste Type: BLOOD SPECIMENOrdering Facility: [facility] Address: [address] [place] [address] Result Comment: Spec kled PatternClinical associations: SLE, SSc, SjS, DM, PM, MCTD, UCTD. May alsobe found in healthy individualsMain autoantibodies: Anti-SSA-52 (Ro52), anti-SSA-60 (Ro60),anti-SS-B/LA, anti-Ezequiel-1 (anti-Scl-70), Rust, anti-U1-VEGETABLE FARMWORKER,anti-U2-VEGETABLE FARMWORKER, anti-Mi-2, anti-p155/140 (TIF1g), anti-Ku, anti-RNApolymerase, anti-DFS70/LEDGF-A82Butg of AbbreviationsAntisynthetase syndrome (ARS), chronic active hepatitis [...] out SARD. Performed By: #### M YOSPL ####[facility] [id number] [place] [address] ANTINUCLEAR ANTIBODY (CHINMAY) HEP-2, IGG Detected High <1:80 [facility] Comment on above: Order Comment: Speci oliva Type: BLOOD SPECIMENOrdering Facility: [facility] Address: [address] [place] [address] Performed By: #### M YOSPL ####[facility] [id number] [place] [address] EJ (GLYCYL-TRNA SYNTHETASE) ANTIBODY Negative Normal Negative [facility] Comment on above: Order Comment: Lisa baptiste Type: BLOOD SPECIMENOrdering Facility: [facility] Address: [address] [place] [address] Performed By: #### M YOSPL ####[facility]CLIA [id number] [place] [address] AUGUSTE (TYROSYL-TRNA SYNTHETASE) AB Negative Normal Negative [facility] Comment on above: Order Comment: Lisa baptiste Type: BLOOD SPECIMENOrdering Facility: [facility] Address: [address] [place] [address] Result Comment: Auguste a ntibody negative by line immunoassay. No band corresponding to65 kDa observed by immunoprecipitation. Performed By: #### M YOSPL ####[facility]IES[facility]IA [id number] [place] [address] KELY-1 (HISTIDYL-TRNA SYNTHETASE) AB, IGG 0 AU/mL Normal 0-40 [facility] Comment on above: Order Comment: Speci men Type: BLOOD SPECIMENOrdering Facility: [facility] Address: [address] [place] [address] Result Comment: INTE RPRETIVE INFORMATION: Kely-1 Antibody, IgG 29 AU/mL or less.........Negative 30-40 AU/mL..............Equivocal 41 AU/mL or greater......PositivePresence of Kely-1 (antihistidyl transfer RNA [t-RNA] synthetase)antibody is associated with polymyositis and may also be seen inpatients with dermatomyositis. Kely-1 antibody is associated withpulmonary involvement (interstitial lung disease), Raynaudphenomenon, arthritis, and rocket motor mechanic's hands (implicated inantisynthetase syndrome). Performed By: #### M YOSPL ####[facility] LABORATORIESCLIA [id number] [place] [address] [place] (ASPARAGINYL-TRNA SYNTHETASE) AB Negative Normal Negative [facility] Comment on above: Order Comment: Speci men Type: BLOOD SPECIMENOrdering Facility: [facility] Address: [address] [place] [address] Result Comment: Ks a ntibody negative by line immunoassay. No band corresponding to65 kDa observed by immunoprecipitation. Performed By: #### M YOSPL ####[facility]ORATORIESCLIA [id number] [place] [address] MDA5 (CADM-140) AB Negative Normal Negative [facility] Comment on above: Order Comment: Speci men Type: BLOOD SPECIMENOrdering Facility: [facility] Address: [address] [place] [address] Performed By: #### M YOSPL ####[facility]ORATORIESCLIA [id number] [place] [address] MN-2 (NUCLEAR HELICASE PROTEIN) ANTIBODY Negative Normal Negative [facility] Comment on above: Order Comment: Speci men Type: BLOOD SPECIMENOrdering Facility: [facility] Address: [address] [id number] Performed By: #### M WOODROW ####[facility]ORATORIESCLIA [id number] [place] [address] MYOSITIS INTERPRETIVE INFORMATION See Note Normal [facility] Comment on above: Order Comment: Speci men Type: BLOOD SPECIMENOrdering Facility: [facility] Address: [address] [place] [address] Result Comment: INTE RPRETIVE INFORMATION: Dermatomyositis and [...] was developed and its performance characteristicsdetermined by [employer]. It has not been cleared orapproved by the [place] Food and Drug Administration. This test wasperformed in a CLIA certified laboratory and is intended forclinical purposes. Performed By: #### M YOSPL ####[facility]PITALCLIA [id number] [place] [address] NXP2 (NUCLEAR MATRIX PROTEIN-2) AB Negative Normal Negative [facility] Comment on above: Order Comment: Speci men Type: BLOOD SPECIMENOrdering Facility: [facility] Address: [address] [place] [address] Performed By: #### M YOSPL ####[facility] TRUMBULLIA [id number] [place] [address] OJ (ISOLEUCYL-TRNA SYNTHETASE) ANTIBODY Negative Normal Negative [facility] Comment on above: Order Comment: Speci men Type: BLOOD SPECIMENOrdering Facility: [facility] Address: [address] [place] [address] Performed By: #### M YOSPL ####[facility]UM[facility]ULLIA [id number] [place] [address] P155/140 ANTIBODY Negative Normal Negative [facility] Comment on above: Order Comment: Speci men Type: BLOOD SPECIMENOrdering Facility: [facility] Address: [address] [place] [address] Performed By: #### M YOSPL ####[facility]OSPITALCLIA [id number] [place] [address] PL-12 (ALANYL-TRNA SYNTHETASE) ANTIBODY Negative Normal Negative [facility] Comment on above: Order Comment: Speci men Type: BLOOD SPECIMENOrdering Facility: [facility] Address: [address] [place] [address] Performed By: #### M YOSPL ####[facility]IESCLIA [id number] [place] [address] PL-7 (THREONYL-TRNA SYNTHETASE) ANTIBODY Negative Normal Negative [facility] Comment on above: Order Comment: Speci men Type: BLOOD SPECIMENOrdering Facility: [facility] Address: [address] [place] [address] Performed By: #### M YOSPL ####[facility]ORATORIESCLIA [id number] [place] [address] SAE1 (SUMO ACTIVATING ENZYME) AB Negative Normal Negative [facility] Comment on above: Order Comment: Speci men Type: BLOOD SPECIMENOrdering Facility: [facility] Address: [address] [place] [address] Performed By: #### M YOSPL ####[facility] TRUM[facility]ULLIA [id number] [place] [address] SRP (SIGNAL RECOGNITION PARTICLE) AB Negative Normal Negative [facility] Comment on above: Order Comment: Speci men Type: BLOOD SPECIMENOrdering Facility: [facility] Address: [address] [place] [address] Performed By: #### M YOSPL ####[facility] CENTERIA [id number] [place] [address] TIF-1 GAMMA (155 KDA) AB Negative Normal Negative [facility] Comment on above: Order Comment: Speci men Type: BLOOD SPECIMENOrdering Facility: [facility] Address: [address] [place] [address] Performed By: #### M YOSPL ####[facility]ULLIA [id number] [place] [address] ZO (PHENYLALANYL-TRNA SYNTHETASE) AB Negative Normal Negative [facility] Comment on above: Order Comment: Speci men Type: BLOOD SPECIMENOrdering Facility: [facility] Address: [address] [place] [address] Result Comment: Zo a ntibody negative by line immunoassay. No bands correspondingto 68 and 58 kDa observed by immunoprecipitation.Performed By: [facility] [id number] [place] [id number] Director: Aris Garcia MD, PhDCLIA Number: [id number] Performed By: #### M YOSPL ####[facility] CENTERIA [id number] [place] [address] PROTEIN ELECTROPHORESIS SERU M (P)on 12-20-2024 Albumin [Mass/Vol] 3.89 g/dL Normal 3.43-5.41 [facility] Comment on above: Order Comment: Speci men Type: BLOOD SPECIMENOrdering Facility: [facility] Address: [address] [place] [address] Performed By: #### L [id number] ####[facility] LABIA [id number] [place] [address] [place] Alpha 1 globulin Elph [Mass/Vol] 0.33 g/dL Normal 0.18-0.43 [facility] Comment on above: Order Comment: Speci men Type: BLOOD SPECIMENOrdering Facility: [facility] Address: [address] [place] [address] Performed By: #### L [id number] ####[facility] LABCLIA [id number] [place] [address] [place] Alpha 2 globulin Elph [Mass/Vol] 0.79 g/dL Normal 0.42-0.98 [facility] Comment on above: Order Comment: Speci men Type: BLOOD SPECIMENOrdering Facility: [facility] Address: [address] [place] [address] Performed By: #### L [id number] ####[facility] LABCLIA [id number] [place] [address] [place] Beta globulin Elph [Mass/Vol] 1.19 g/dL High 0.61-1.17 [facility] Comment on above: Order Comment: Speci men Type: BLOOD SPECIMENOrdering Facility: [facility] Address: [address] [place] [address] Performed By: #### L [id number] ####[facility] LABIA [id number] [place] [address] [place] Gamma globulin Elph [Mass/Vol] 0.89 g/dL Normal 0.53-1.51 [facility] Comment on above: Order Comment: Speci men Type: BLOOD SPECIMENOrdering Facility: [facility] Address: [address] [place] [address] Performed By: #### L [id number] ####[facility] LABCLIA [id number] [place] [address] [place] M-PROTEIN LOCATION Normal [facility] Comment on above: Order Comment: Speci men Type: BLOOD SPECIMENOrdering Facility: [facility] Address: [address] [place] [address] Result Comment: Not Applicable. Performed By: #### L [id number] ####[facility] LABCLIA [id number] [place] [address] [place] Protein Fractions [Interp] No definitive M protein is identified on protein electrophoresis. Normal No definitive M protein is identified on protein electrophor esis. [facility] Comment on above: Order Comment: Speci men Type: BLOOD SPECIMENOrdering Facility: [facility] Address: [address] [place] [address] Performed By: #### L [id number] ####[facility] LABCLIA [id number] [place] [address] [place] Protein.monoclonal Elph [Mass/Vol] 0.00 g/dL Normal <=0.00 [facility] Comment on above: Order Comment: Speci men Type: BLOOD SPECIMENOrdering Facility: [facility] Address: [address] [place] [address] Performed By: #### L [id number] ####[facility] LABCLIA [id number] [place] [address] [place] SPE STAFF REVIEW Reviewed by Gabriela lucas MD Normal [facility] Comment on above: Order Comment: Speci men Type: BLOOD SPECIMENOrdering Facility: [facility] Address: [address] [place] [address] Performed By: #### L [id number] ####[facility] LABCLIA [id number] [place] [id number] [place] Phosphate SerPl-mCncon 12-20 Phosphate [Mass/Vol] 3.6 mg/dL Normal 2.7-4.8 [facility] Comment on above: Order Comment: Speci men Type: BLOOD SPECIMENOrdering Facility: [facility] Address: [address] [place] [address] Performed By: #### 2 777-1, 53643-0 ####[facility] [id number] [place] [address] [place] Prot SerPl-mCncon 12-20-2024 Protein [Mass/Vol] 7.1 g/dL Normal 6.3-8.0 [facility] Comment on above: Order Comment: Speci men Type: BLOOD SPECIMENOrdering Facility: [facility] Address: [address] [place] [address] Performed By: #### 2 885-2, 4485-9, 4498-2 ####[facility] LABCLIA [id number] [place] [address] [place] Prot/Creat Uron 12-20-2024 Protein/Creatinine (U) [Mass ratio] 0.12 mg/mg Normal <0.15 [facility] Comment on above: Order Comment: Speci men Type: URINE SPECIMENOrdering Facility: [facility] Address: [address] [place] [address] Result Comment: Adul t Proteinuria Categories:<0.15 mg/mg is considered normal to mildly increased0.15 - 0.50 mg/mg is considered moderately increased>0.50 mg/mg is considered severely increasedKDIGO. (2013). KDIGO 2012 Clinical Practice Guideline for the Evaluation and Management of Chronic Kidney Disease. Official Journal of the International Society of Nephrology, 3(1), 1-150. Performed By: #### 2 890-2 ####[facility] LABORATORYCLIA [id number] [address] [id number] [place] Protein/Creatinine (U) [Mass ratio]on 12-20-2024 Creatinine (U) [Mass/Vol] 137.7 mg/dL Normal 20.0-300.0 [facility] Comment on above: Order Comment: Speci men Type: URINE SPECIMENOrdering Facility: [facility] Address: [address] [place] [address] Performed By: #### 2 890-2 ####[facility] LABORATORYCLIA [id number] [place] [address] [place] Protein (U) [Mass/Vol] 17 mg/dL Normal 0-20 [facility] Comment on above: Order Comment: Speci men Type: URINE SPECIMENOrdering Facility: [facility] Address: [address] [place] [address] Performed By: #### 2 890-2 ####[facility] LABORATORYCLIA [id number] [place] [address] [place] Urinalysis complete panel (U )on 12-20-2024 Bacteria LM.HPF (Urine sed) [#/Area] Negative Normal Negative [facility] Comment on above: Order Comment: Speci men Type: URINE SPECIMENOrdering Facility: [facility] Address: [address] [place] [address] Performed By: #### 2 4356-8 ####[facility] LABCLIA [id number] [place] [address] [place] Bilirubin Ql (U) Negative Normal Negative [facility] Comment on above: Order Comment: Speci men Type: URINE SPECIMENOrdering Facility: [facility] Address: [address] [place] [address] Performed By: #### 2 4356-8 ####[facility] LABCLIA [id number] [place] [address] [place] Clarity (Unsp spec) Clear Normal Clear [facility] Comment on above: Order Comment: Speci men Type: URINE SPECIMENOrdering Facility: [facility] Address: [address] [place] [address] Performed By: #### 2 4356-8 ####[facility] LABCLIA [id number] [place] [address] [place] [facility] Color (U) Yellow Normal Yellow [facility] Comment on above: Order Comment: Speci men Type: URINE SPECIMENOrdering Facility: [facility] Address: [address] [place] [address] Performed By: #### 2 4356-8 ####[facility] LABCLIA [id number] [place] [address] [place] Epithelial cells LM.HPF (Urine sed) [#/Area] None Seen Normal [facility] Comment on above: Order Comment: Speci men Type: URINE SPECIMENOrdering Facility: [facility] Address: [address] [place] [address] Performed By: #### 2 4356-8 ####[facility] LABCLIA [id number] [address] STATES [place] [facility] Glucose Test strip (U) [Mass/Vol] Negative Normal Negative [facility] Comment on above: Order Comment: Speci men Type: URINE SPECIMENOrdering Facility: [facility] Address: [address] [place] [address] Performed By: #### 2 4356-8 ####[facility] LABCLIA [id number] [place] [address] [place] Hemoglobin Ql (U) 3+ Abnormal Negative [facility] Comment on above: Order Comment: Speci men Type: URINE SPECIMENOrdering Facility: [facility] Address: [address] [place] [address] Performed By: #### 2 4356-8 ####[facility] LABCLIA [id number] [place] [address] [place] Hyaline casts (Urine sed) [#/Area] 1-3 /LPF Abnormal 0 /LPF [facility] Comment on above: Order Comment: Speci men Type: URINE SPECIMENOrdering Facility: [facility] Address: [address] [place] [address] Performed By: #### 2 4356-8 ####[facility] LABCLIA [id number] [place] [address] [place] Ketones Ql (U) Negative Normal Negative [facility] Comment on above: Order Comment: Speci men Type: URINE SPECIMENOrdering Facility: [facility] Address: [address] [place] [address] Performed By: #### 2 4356-8 ####[facility] LABCLIA [id number] [place] [address] [place] Leukocyte esterase Test strip Ql (U) Negative Normal Negative [facility] Comment on above: Order Comment: Speci men Type: URINE SPECIMENOrdering Facility: [facility] Address: [address] [place] [address] Performed By: #### 2 4356-8 ####[facility] LABCLIA [id number] [place] [address] [place] Nitrite Ql (U) Negative Normal Negative [facility] Comment on above: Order Comment: Speci men Type: URINE SPECIMENOrdering Facility: [facility] Address: [address] [place] [address] Performed By: #### 2 4356-8 ####[facility] LABCLIA [id number] [place] [address] [place] pH (U) 5.5 [pH] Normal <8.5 [facility] Comment on above: Order Comment: Speci men Type: URINE SPECIMENOrdering Facility: [facility] Address: [address] [place] [address] Performed By: #### 2 4356-8 ####[facility] LABCLIA [id number] [place] [address] [place] Protein (U) [Mass/Vol] Trace Abnormal Negative [facility] Comment on above: Order Comment: Speci men Type: URINE SPECIMENOrdering Facility: [facility] Address: [address] [place] [address] Performed By: #### 2 4356-8 ####[facility] LABCLIA [id number] [place] [address] [place] RBC LM.HPF (Urine sed) [#/Area] 0-2 /HPF Normal 0-2 /HPF [facility] Comment on above: Order Comment: Speci men Type: URINE SPECIMENOrdering Facility: [facility] Address: [address] [place] [address] Performed By: #### 2 4356-8 ####[facility] LABIA [id number] [place] [address] [place] Specific gravity (U) [Rel density] 1.019 Normal 1.005-1.030 [facility] Comment on above: Order Comment: Speci men Type: URINE SPECIMENOrdering Facility: [facility] Address: [address] [place] [address] Performed By: #### 2 4356-8 ####[facility] LABIA [id number] [place] [address] [place] Urobilinogen Ql (U) 0.2 EU/dL Normal 0.2-1.0 EU/dL [facility] Comment on above: Order Comment: Speci men Type: URINE SPECIMENOrdering Facility: [facility] Address: [address] [place] [address] Performed By: #### 2 4356-8 ####[facility] LABCLIA [id number] [place] [address] [place] WBC LM.HPF (Urine sed) [#/Area] 0-5 /HPF Normal 0-5 /HPF [facility] Comment on above: Order Comment: Speci men Type: URINE SPECIMENOrdering Facility: [facility] Address: [address] [place] [address] Performed By: #### 2 4356-8 ####[facility] LABIA [id number] [address] [address] [place] [address] CHEST WO IVCONon 12-19-19 CT CHEST WO IVCON Normal [facility] CNPNon 12-16-2024 CNPN Normal [facility] CNOVon 12-15-2024 CNOV Normal [facility] CNOVon 12-09-2024 CNOV Normal [facility] CNPNon 11-28-2024 CNPN Normal [facility] CNPNon 11-25-2024 CNPN Normal [facility] US THYROID/PARATHYROIDon US THYROID/PARATHYROID Normal [facility] Basic metabolic 2000 panelon 11-23-2024 Anion gap [Moles/Vol] 14 mmol/L Normal 8-15 [facility] Comment on above: Order Comment: Speci men Type: BLOOD SPECIMENOrdering Facility: [facility] Address: [address] [place] [address] Performed By: #### 3 016-3, , ####[facility] LABIA [id number] [place] [address] [place] Calcium [Mass/Vol] 9.7 mg/dL Normal 8.5-10.2 [facility] Comment on above: Order Comment: Speci men Type: BLOOD SPECIMENOrdering Facility: [facility] Address: [address] [place], [place] [address] Performed By: #### 3 016-3, , ####[facility] LABIA [id number] [address] [address] [place] Chloride [Moles/Vol] 104 mmol/L Normal 98-107 [facility] Comment on above: Order Comment: Speci men Type: BLOOD SPECIMENOrdering Facility: [facility] Address: [address] [place] [address] Performed By: #### 3 016-3, , ####[facility] LABCLIA [id number] [place] [address] [place] CO2 [Moles/Vol] 23 mmol/L Normal 22-30 [facility] Comment on above: Order Comment: Speci men Type: BLOOD SPECIMENOrdering Facility: [facility] Address: [address] [place] [address] Performed By: #### 3 016-3, , ####[facility] LABIA [id number] [place] [address] [place] Creatinine [Mass/Vol] 1.17 mg/dL High 0.58-0.96 [facility] Comment on above: Order Comment: Speci men Type: BLOOD SPECIMENOrdering Facility: [facility] Address: [address] [place] [address] Performed By: #### 3 016-3, , ####[facility] LABIA [id number] [address] [place] Creatinine and Glomerular filtration rate.predicted panel (S/P/Bld) 48 mL/min/1.73m??? Low >=60 [facility] Comment on above: Order Comment: Speci men Type: BLOOD SPECIMENOrdering Facility: [facility] Address: [address] [place] [address] Result Comment: Nicole mated Glomerular Filtration Rate [...] actual GFR. Performed By: #### 3 016-3, , ####[facility] LABCLIA [id number] [place] [address] [place] Glucose [Mass/Vol] 91 mg/dL Normal 74-99 [facility] Comment on above: Order Comment: Speci men Type: BLOOD SPECIMENOrdering Facility: [facility] Address: [address] [place] [address] Result Comment: The [place] Diabetes Association (ADA) provides guidance for cutoff [...] Standards of Medical Care in Diabetes 2016, [place] Diabetes Association. Diabetes Care. 2016.39(Suppl 1). Performed By: #### 3 016-3, , ####[facility] LABIA [id number] [place] [address] [place] Potassium [Moles/Vol] 4.2 mmol/L Normal 3.7-5.1 [facility] Comment on above: Order Comment: Speci men Type: BLOOD SPECIMENOrdering Facility: [facility] Address: [address] [place] [address] Performed By: #### 3 016-3, , ####[facility] LABIA [id number] [place] [address] [place] Sodium [Moles/Vol] 141 mmol/L Normal 136-144 [facility] Comment on above: Order Comment: Speci men Type: BLOOD SPECIMENOrdering Facility: [facility] Address: [address] [place] [address] Performed By: #### 3 016-3, 85449-3, 62465-3 ####[facility] LABCLIA [id number] [place] [address] [place] Urea nitrogen [Mass/Vol] 22 mg/dL High 7- [facility] Comment on above: Order Comment: Speci men Type: BLOOD SPECIMENOrdering Facility: [facility] Address: [address] [place] [address] Performed By: #### 3 016-3, , 25739-5 ####[facility] LABCLIA [id number] [place] [address] [place] CBC W Auto Differential pane l (Bld)on 11-23-2024 Basophils (Bld) [#/Vol] 0.04 10*3/uL Normal <0.11 [facility] Comment on above: Order Comment: Speci men Type: BLOOD SPECIMENOrdering Facility: [facility] Address: [address] [place] [address] Performed By: #### 5 7021-8 ####[facility] LABCLIA [id number] [place] [address] [place] Basophils/100 WBC (Bld) 0.5 % Normal [facility] Comment on above: Order Comment: Speci men Type: BLOOD SPECIMENOrdering Facility: [facility] Address: [address] [place] [address] Performed By: #### 5 7021-8 ####[facility] LABCLIA [id number] [place] [address] [place] Differential cell count method Nom (Bld) Auto Normal [facility] Comment on above: Order Comment: Speci men Type: BLOOD SPECIMENOrdering Facility: [facility] Address: [address] [place] [address] Performed By: #### 5 7021-8 ####[facility] LABCLIA [id number] [address] [id number] [address] [place] Eosinophils (Bld) [#/Vol] 0.14 10*3/uL Normal <0.46 [facility] Comment on above: Order Comment: Speci men Type: BLOOD SPECIMENOrdering Facility: [facility] Address: [address] [place] [address] Performed By: #### 5 7021-8 ####[facility] LABCLIA [id number] [place] [address] [place] Eosinophils/100 WBC (Bld) 1.8 % Normal [facility] Comment on above: Order Comment: Speci men Type: BLOOD SPECIMENOrdering Facility: [facility] Address: [address] [place] [address] Performed By: #### 5 7021-8 ####[facility] LABCLIA [id number] [place] [address] [place] Erythrocyte distribution width (RBC) [Ratio] 13.9 % Normal 11.5-15.0 [facility] Comment on above: Order Comment: Speci men Type: BLOOD SPECIMENOrdering Facility: [facility] Address: [address] [place] [address] Performed By: #### 5 7021-8 ####[facility] LABCLIA [id number] [place] [address] [place] Hematocrit (Bld) [Volume fraction] 42.1 % Normal 36.0-46.0 [facility] Comment on above: Order Comment: Speci men Type: BLOOD SPECIMENOrdering Facility: [facility] Address: [address] [place] [address] Performed By: #### 5 7021-8 ####[facility] LABCLIA [id number] [place] [address] [place] Hemoglobin (Bld) [Mass/Vol] 13.1 g/dL Normal 11.5-15.5 [facility] Comment on above: Order Comment: Speci men Type: BLOOD SPECIMENOrdering Facility: [facility] Address: [address] [place] [address] Performed By: #### 5 7021-8 ####[facility] LABCLIA [id number] [place] [address] [place] Immature granulocytes (Bld) [#/Vol] 10*3/uL Normal <0.10 [facility] Comment on above: Order Comment: Speci men Type: BLOOD SPECIMENOrdering Facility: [facility] Address: [address] [place] [address] Performed By: #### 5 7021-8 ####[facility] LABCLIA [id number] [place] [address] [place] Immature granulocytes/100 WBC (Bld) 0.3 % Normal [facility] Comment on above: Order Comment: Speci men Type: BLOOD SPECIMENOrdering Facility: [facility] Address: [address] [place] [address] Performed By: #### 5 7021-8 ####[facility] LABCLIA [id number] [place] [address] [place] Lymphocytes (Bld) [#/Vol] 1.63 10*3/uL Normal 1.00-4.00 [facility] Comment on above: Order Comment: Speci men Type: BLOOD SPECIMENOrdering Facility: [facility] Address: [address] [place] [address] Performed By: #### 5 7021-8 ####[facility] LABCLIA [id number] [place] [address] [place] Lymphocytes/100 WBC (Bld) 21.1 % Normal [facility] Comment on above: Order Comment: Speci men Type: BLOOD SPECIMENOrdering Facility: [facility] Address: [address] [place] [address] Performed By: #### 5 7021-8 ####[facility] LABCLIA [id number] [place] [address] [place] MCH (RBC) [Entitic mass] 27.4 pg Normal 26.0-34.0 [facility] Comment on above: Order Comment: Speci men Type: BLOOD SPECIMENOrdering Facility: [facility] Address: [address] [place] [address] Performed By: #### 5 7021-8 ####[facility] LABCLIA [id number] [place] [address] [place] MCHC (RBC) [Mass/Vol] 31.1 g/dL Normal 30.5-36.0 [facility] Comment on above: Order Comment: Speci men Type: BLOOD SPECIMENOrdering Facility: [facility] Address: [address] [place] [address] Performed By: #### 5 7021-8 ####[facility] LABCLIA [id number] [place] [address] [place] MCV (RBC) [Entitic vol] 88.1 fL Normal 80.0-100.0 [facility] Comment on above: Order Comment: Speci men Type: BLOOD SPECIMENOrdering Facility: [facility] Address: [address] [place] [address] Performed By: #### 5 7021-8 ####[facility] LABIA [id number] [place] [address] [place] Monocytes (Bld) [#/Vol] 0.74 10*3/uL Normal <0.87 [facility] Comment on above: Order Comment: Speci men Type: BLOOD SPECIMENOrdering Facility: [facility] Address: [address] [place] [address] Performed By: #### 5 7021-8 ####[facility] LABCLIA [id number] [place] [address] [place] Monocytes/100 WBC (Bld) 9.6 % Normal [facility] Comment on above: Order Comment: Speci men Type: BLOOD SPECIMENOrdering Facility: [facility] Address: [address] [place] [address] Performed By: #### 5 7021-8 ####[facility] LABCLIA [id number] [place] [address] [place] Neutrophils (Bld) [#/Vol] 5.15 10*3/uL Normal 1.45-7.50 [facility] Comment on above: Order Comment: Speci men Type: BLOOD SPECIMENOrdering Facility: [facility] Address: [address] [place] [address] Performed By: #### 5 7021-8 ####[facility] LABCLIA [id number] [place] [address] [place] Neutrophils/100 WBC (Bld) 66.7 % Normal [facility] Comment on above: Order Comment: Speci men Type: BLOOD SPECIMENOrdering Facility: [facility] Address: [address] [place] [address] Performed By: #### 5 7021-8 ####[facility] LABCLIA [id number] [place] [address] [place] Nucleated RBC (Bld) [#/Vol] 10*3/uL Normal <0.01 [facility] Comment on above: Order Comment: Speci men Type: BLOOD SPECIMENOrdering Facility: [facility] Address: [address] [place] [address] Performed By: #### 5 7021-8 ####[facility] LABCLIA [id number] [place] [address] [place] Nucleated RBC/100 WBC (Bld) [Ratio] 0.0 /100 WBC Normal [facility] Comment on above: Order Comment: Speci men Type: BLOOD SPECIMENOrdering Facility: [facility] Address: [address] [place] [address] Performed By: #### 5 7021-8 ####[facility] LABCLIA [id number] [place] [address] [place] Platelet mean volume (Bld) [Entitic vol] 11.1 fL Normal 9.0-12.7 [facility] Comment on above: Order Comment: Speci men Type: BLOOD SPECIMENOrdering Facility: [facility] Address: [address] [place] [address] Performed By: #### 5 7021-8 ####[facility] LABIA [id number] [place] [address] [place] Platelets (Bld) [#/Vol] 205 10*3/uL Normal 150-400 [facility] Comment on above: Order Comment: Speci men Type: BLOOD SPECIMENOrdering Facility: [facility] Address: [address] [place] [address] Performed By: #### 5 7021-8 ####[facility] LABIA [id number] [place] [address] [place] RBC (Bld) [#/Vol] 4.78 10*6/uL Normal 3.90-5.20 [facility] Comment on above: Order Comment: Speci men Type: BLOOD SPECIMENOrdering Facility: [facility] Address: [address] [place] [address] Performed By: #### 5 7021-8 ####[facility] LABIA [id number] [place] [address] [place] WBC (Bld) [#/Vol] 7.72 10*3/uL Normal 3.70-11.00 [facility] Comment on above: Order Comment: Speci men Type: BLOOD SPECIMENOrdering Facility: [facility] Address: [address] [place] [address] Performed By: #### 5 7021-8 ####[facility] LABIA [id number] [place] [address] [place] CNOVon 11-23-2024 CNOV Normal [facility] ECG COMPLETEon 11-23-2024 ECG COMPLETE Normal [facility] Magnesium SerPl-mCncon 11-23 Magnesium [Mass/Vol] 1.9 mg/dL Normal 1.7-2.3 [facility] Comment on above: Order Comment: Speci men Type: BLOOD SPECIMENOrdering Facility: [facility] Address: [address] [place] [address] Performed By: #### 3 016-3, 10068-0, 45172-3 ####[facility] LABIA [id number] [place] [address] [place] TSH SerPl-aCncon 11-23-2024 TSH Qn 2.620 m[IU]/L Normal 0.270-4.200 [facility] Comment on above: Order Comment: Speci men Type: BLOOD SPECIMENOrdering Facility: [facility] Address: [address] [place] [address] Performed By: #### 3 016-3, 64045-5, 67322-9 ####[facility] [id number] [place] [address] [place] CR - History AND Physicalon 10-17-2024 CR - History & Physical [facility] [address] [place] [address] CR - History Physical MR#: [id number] Acct: [id number] Name: TERRI BURCIAGA Rep #: [id number] : 1945 79 From: Matty Biggs BS, [...] Yes Advanced Directives Advanced Directives Power of Chemist: No Living Will: No Advance Directives Information [...] see as (more content not included)... Normal [facility] ANTINUCLEAR ANTIBODIES DIREC Ton 10-11-2024 [place]INMA[place],DIRECT Positive Abnormal Negative [facility] Comment on above: Result Comment: Perf ormed at: CB - [facility] [address] [id number] Aligning Checker: Vj Rice PhD, Phone: [phone] Performed By: #### L 3100.5500, L100.0100, L3100.5475, L500.4050, L501.3620 #### [facility] [address] [place], [place], [id number] Anti-dsDNA Abon 10-11-2024 ANTI-DNA (DS)AB <1 Normal 0-9 [facility] Comment on above: Result Comment: Nega tive <5 Equivocal 5 - 9 Positive >9 Performed By: #### L 3100.5500, L100.0100, L3100.5475, L500.4050, L501.3620 #### [facility] [address] [place], [address] [place] serumOrdered By: Rocio murillo on 10-10-2024 Anti-Nuclear Antibody Screen Positive High Negative [facility] Comment on above: Performed at: [place] [id number] Director: Vj Rice PhD, Phone: [phone] Absolute neutrophil countOrd ered By: Rocio Hilaroi on 10-10-2024 Neutrophils (Bld) [#/Vol] 3.7 10*3/uL 2.0-7.7 [facility] Albumin to globulin ratioOrd ered By: Rocio Hilario on 10-10-2024 Albumin/Globulin [Mass ratio] 0.9 {ratio} 0.9-2.4 [facility] Basophil percentageOrdered B y: Rocio Hilario on 10-10-2024 Basophils/100 WBC (Bld) 0.4 % 0-1 [facility] Bilirubin, totalOrdered By: Rocio Hilario on 10-10-2024 Bilirubin [Mass/Vol] 0.50 mg/dL 0.20-1.00 [facility] Comment on above: For patients on eltr ombopag therapy, use of Dimension [place] TBIL is not recommended. Blood urea nitrogen (BUN)/cr eatinine ratioOrdered By: Rocio Hilario on 10-10-2024 Urea nitrogen/Creatinine [Mass ratio] 16.8 mg/mg 10-20 [facility] CBC W/Diff, Automatedon 12-0 -2023 Absolute Lymph 0.97 X10 3/uL Normal 0.83-4.51 [facility] Comment on above: Performed By: #### L 3100.5500, L100.0100, L3100.5475, L500.4050, L501.3620 #### [facility] [address] [place], [address] Absolute Neut 3.7 X10 3/uL Normal 2.0-7.7 [facility] Comment on above: Performed By: #### L 3100.5500, L100.0100, L3100.5475, L500.4050, L501.3620 #### [facility] [address] [place], [address] Basophils/100 WBC (Bld) 0.4 % Normal 0-1 [facility] Comment on above: Performed By: #### L 3100.5500, L100.0100, L3100.5475, L500.4050, L501.3620 #### [facility] [address] [place], [address] Eosinophils/100 WBC (Bld) 1.9 % Normal 0-5 [facility] Comment on above: Performed By: #### L 3100.5500, L100.0100, L3100.5475, L500.4050, L501.3620 #### [facility] [address] [place], [address] Erythrocyte distribution width (RBC) [Ratio] 14.1 % Normal 11.6-14.6 [facility] Comment on above: Performed By: #### L 3100.5500, L100.0100, L3100.5475, L500.4050, L501.3620 #### [facility] [address] [place], [address] Hematocrit (Bld) [Volume fraction] 38.6 % Normal 37-47 [facility] Comment on above: Performed By: #### L 3100.5500, L100.0100, L3100.5475, L500.4050, L501.3620 #### [facility] [address] [place], [address] Hemoglobin (Bld) [Mass/Vol] 12.1 g/dL Normal 12.0-15.0 [facility] Comment on above: Performed By: #### L 3100.5500, L100.0100, L3100.5475, L500.4050, L501.3620 #### [facility] [address] [place], [address] IG% 0.400 Normal 0.0-0.9 [facility] Comment on above: Result Comment: IG% - Immature Granulocytes (promyelocytes, myelocytes and metamyelocytes) > 1% indicates that a LEFT SHIFT is Present. Performed By: #### L 3100.5500, L100.0100, L3100.5475, L500.4050, L501.3620 #### [facility] [address] [place], [address] Lymphocytes/100 WBC (Bld) 18.2 % Low 19-41 [facility] Comment on above: Performed By: #### L 3100.5500, L100.0100, L3100.5475, L500.4050, L501.3620 #### [facility] [address] [place], [address] MCH (RBC) [Entitic mass] 27.5 pg Normal 27.0-32.0 [facility] Comment on above: Performed By: #### L 3100.5500, L100.0100, L3100.5475, L500.4050, L501.3620 #### [facility] [address] [place], [address] MCHC (RBC) [Mass/Vol] 31.3 g/dL Low 32-36 [facility] Comment on above: Performed By: #### L 3100.5500, L100.0100, L3100.5475, L500.4050, L501.3620 #### [facility] [address] [place], [address] MCV (RBC) [Entitic vol] 87.7 fL Normal 81-99 [facility] Comment on above: Performed By: #### L 3100.5500, L100.0100, L3100.5475, L500.4050, L501.3620 #### [facility] [address] [place], [address] Monocytes/100 WBC (Bld) 10.2 % High 0-10 [facility] Comment on above: Performed By: #### L 3100.5500, L100.0100, L3100.5475, L500.4050, L501.3620 #### [facility] [address] [place], [address] Neutrophils/100 WBC (Bld) 68.9 % Normal 47-70 [facility] Comment on above: Performed By: #### L 3100.5500, L100.0100, L3100.5475, L500.4050, L501.3620 #### [facility] [address] [place], [address] Nucleated RBC (Bld) [#/Vol] 0 10*3/uL Normal 0-5 [facility] Comment on above: Performed By: #### L 3100.5500, L100.0100, L3100.5475, L500.4050, L501.3620 #### [facility] [address] [place], [address] Platelet mean volume (Bld) [Entitic vol] 11.3 fL Normal 6.2-12.0 [facility] Comment on above: Performed By: #### L 3100.5500, L100.0100, L3100.5475, L500.4050, L501.3620 #### [facility] [address] [place], [address] Platelets (Bld) [#/Vol] 193 10*3/uL Normal 150-450 [facility] Comment on above: Performed By: #### L 3100.5500, L100.0100, L3100.5475, L500.4050, L501.3620 #### [facility] [address] [place], [address] RBC (Bld) [#/Vol] 4.40 10*6/uL Normal 4.2-5.4 [facility] Comment on above: Performed By: #### L 3100.5500, L100.0100, L3100.5475, L500.4050, L501.3620 #### [facility] [address] [place], [address] RDW SD 45.0 fl High 35.1-43.9 [facility] Comment on above: Performed By: #### L 3100.5500, L100.0100, L3100.5475, L500.4050, L501.3620 #### [facility] [address] [place], [address] WBC (Bld) [#/Vol] 5.3 10*3/uL Normal 4.4-11.0 [facility] Comment on above: Performed By: #### L 3100.5500, L100.0100, L3100.5475, L500.4050, L501.3620 #### [facility] [address] [place], [address] CPK Total, Creatine Kinaseon 10-10-2024 CPK TOTAL 30 U/L Normal 26-192 [facility] Comment on above: Performed By: #### L 3100.5500, L100.0100, L3100.5475, L500.4050, L501.3620 #### [facility] [address] [place], [address] Carbon dioxide measurementOr dered By: Rocio Hilario on 10-10-2024 CO2 [Moles/Vol] 25.0 mmol/L 21.0-32.0 [facility] Chloride measurementOrdered By: Rocio Hilario on 10-10-2024 Chloride [Moles/Vol] 107 mmol/L 98-107 [facility] Comprehensive Metabolic Prof ilon 10-10-2024 Albumin [Mass/Vol] 3.6 g/dL Normal 3.2-5.0 [facility] Comment on above: Performed By: #### L 3100.5500, L100.0100, L3100.5475, L500.4050, L501.3620 #### [facility] [address] [place], [address] Albumin/Globulin [Mass ratio] 0.9 {ratio} Normal 0.9-2.4 [facility] Comment on above: Performed By: #### L 3100.5500, L100.0100, L3100.5475, L500.4050, L501.3620 #### [facility] [address] [place], [address] ALK P 83 U/L Normal 45-117 [facility] Comment on above: Performed By: #### L 3100.5500, L100.0100, L3100.5475, L500.4050, L501.3620 #### [facility] [address] [place], [address] ALT [Catalytic activity/Vol] 34 U/L Normal 13-56 [facility] Comment on above: Performed By: #### L 3100.5500, L100.0100, L3100.5475, L500.4050, L501.3620 #### [facility] [address] [place], [address] AST [Catalytic activity/Vol] 25 U/L Normal 15-37 [facility] Comment on above: Performed By: #### L 3100.5500, L100.0100, L3100.5475, L500.4050, L501.3620 #### [facility] [address] [place], [address] Bilirubin [Mass/Vol] 0.50 mg/dL Normal 0.20-1.00 [facility] Comment on above: Result Comment: For patients on eltrombopag therapy, use of Dimension [place] TBIL is not recommended. Performed By: #### L 3100.5500, L100.0100, L3100.5475, L500.4050, L501.3620 #### [facility] [address] [place], [address] BUN/CRE 16.8 RATIO Normal 10-20 [facility] Comment on above: Performed By: #### L 3100.5500, L100.0100, L3100.5475, L500.4050, L501.3620 #### [facility] [address] [place], [address] CA,Total 9.4 mg/dL Normal 8.5-10.1 [facility] Comment on above: Performed By: #### L 3100.5500, L100.0100, L3100.5475, L500.4050, L501.3620 #### [facility] [address] [place], [address] Chloride [Moles/Vol] 107 mmol/L Normal 98-107 [facility] Comment on above: Performed By: #### L 3100.5500, L100.0100, L3100.5475, L500.4050, L501.3620 #### [facility] [address] [place], [address] CO2 [Moles/Vol] 25.0 mmol/L Normal 21.0-32.0 [facility] Comment on above: Performed By: #### L 3100.5500, L100.0100, L3100.5475, L500.4050, L501.3620 #### [facility] [address] [place], [address] Creatinine [Mass/Vol] 1.43 mg/dL High 0.55-1.02 [facility] Comment on above: Result Comment: The validity of the calculated GFR GFRAA in patients over 70 years has not been determined. Clinical correlation is essential. Performed By: #### L 3100.5500, L100.0100, L3100.5475, L500.4050, L501.3620 #### [facility] [address] [place], [address] EST GFR - AA 46 mL/min Low >60 [facility] Comment on above: Result Comment: Afri can Italian GFR Calc Performed By: #### L 3100.5500, L100.0100, L3100.5475, L500.4050, L501.3620 #### [facility] [address] [place], [address] GAP 7 Normal 5-15 [facility] Comment on above: Performed By: #### L 3100.5500, L100.0100, L3100.5475, L500.4050, L501.3620 #### [facility] [address] [place], [address] GFR/1.73 sq M.predicted among non-blacks MDRD (S/P/Bld) [Vol rate/Area] 38 mL/min/{1.73_m2} Low >60 [facility] Comment on above: Result Comment: Non- GFR Calc Performed By: #### L 3100.5500, L100.0100, L3100.5475, L500.4050, L501.3620 #### [facility] [address] [place], [address] Globulin (S) [Mass/Vol] 4.1 g/dL Normal 2.2-4.2 [facility] Comment on above: Performed By: #### L 3100.5500, L100.0100, L3100.5475, L500.4050, L501.3620 #### [facility] [address] [place], [address] Glucose [Mass/Vol] 105 mg/dL Normal 74-106 [facility] Comment on above: Result Comment: Fast ing Glucose result from 100 to 125 mg/dL suggests IMPAIRED HOMEOSTASIS per A.D.A. criteria. Performed By: #### L 3100.5500, L100.0100, L3100.5475, L500.4050, L501.3620 #### [facility] [address] [place], [address] Potassium [Moles/Vol] 3.8 mmol/L Normal 3.5-5.1 [facility] Comment on above: Performed By: #### L 3100.5500, L100.0100, L3100.5475, L500.4050, L501.3620 #### [facility] [address] [place], [address] Sodium [Moles/Vol] 138 mmol/L Normal 136-145 [facility] Comment on above: Performed By: #### L 3100.5500, L100.0100, L3100.5475, L500.4050, L501.3620 #### [facility] [address] [place], [address] T PROT 7.7 g/dL Normal 6.4-8.2 [facility] Comment on above: Performed By: #### L 3100.5500, L100.0100, L3100.5475, L500.4050, L501.3620 #### [facility] [address] [place], [place], [address] Urea nitrogen [Mass/Vol] 24 mg/dL High 7-18 [facility] Comment on above: Performed By: #### L 3100.5500, L100.0100, L3100.5475, L500.4050, L501.3620 #### [facility] [address] [place], [address] DNA double strand Ab Qn (S)O rdered By: Rocio Hilario on 10-10-2024 Anti-Double Strand DNA Antibody <1 IU/mL 0-9 [facility] Comment on above: Negative <5 Equivoca l 5 - 9 Positive >9 Eosinophil percentageOrdered By: Rocio Hilario on 10-10-2024 Eosinophils/100 WBC (Bld) 1.9 % 0-5 [facility] Erythrocyte distribution wid th ratioOrdered By: Rocio Hilario on 10-10-2024 Erythrocyte distribution width (RBC) [Ratio] 14.1 % 11.6-14.6 [facility] Erythrocyte distribution wid th standard deviationOrdered By: Rocio Hilario on 10-10-2024 Erythrocyte distribution width (RBC) [Entitic vol] 45.0 fL High 35.1-43.9 [facility] Estimated glomerular filtrat ion rate (GFR) AmericanOrdered By: Rocio Hilario on 10-10-2024 Estimated GFR (MDRD) Amer 46 mL/min Low >60 [facility] Comment on above: GFR Calc Glomerular filtration rate ( GFR) estimationOrdered By: Rocio Hilario on 10-10-2024 Estimated GFR (MDRD) Non-Af Amer 38 mL/min Low >60 [facility] Comment on above: Non- GFR Calc Glucose measurementOrdered B y: Rocio Hilario on 10-10-2024 Glucose [Mass/Vol] 105 mg/dL 74-106 [facility] Comment on above: Fasting Glucose resu lt from 100 to 125 mg/dL suggests IMPAIRED HOMEOSTASIS per A.D.A. criteria. Hematocrit Auto (Bld) [Volum e fraction]Ordered By: Rocio Hilario on 12-02-2024 Hematocrit (Bld) [Volume fraction] 38.6 % 37-47 [facility] Hemoglobin measurementOrdere d By: Rocio Hilario on 10-10-2024 Hemoglobin (Bld) [Mass/Vol] 12.1 g/dL 12.0-15.0 [facility] Immature granulocytes/100 WB C Auto (Bld)Ordered By: Rocio Hilario on 10-10-2024 Immature granulocytes/100 WBC (Bld) 0.400 % 0.0-0.9 [facility] Comment on above: IG% - Immature Granu locytes (promyelocytes, myelocytes and metamyelocytes) > 1% indicates that a LEFT SHIFT is Present. Laboratory - Chemistry and C hemistry - challengeOrdered By: Rocio Hilario on 10-10-2024 AST [Catalytic activity/Vol] 25 U/L 15-37 [facility] Lymphocytes Auto (Unsp spec) [#/Vol]Ordered By: Rocio Hilario on 10-10-2024 Lymphocytes (Bld) [#/Vol] 0.97 10*3/uL 0.83-4.51 [facility] Lymphocytes/100 WBC Auto (Un sp spec)Ordered By: Rocio Hilario on 10-10-2024 Lymphocytes/100 WBC (Bld) 18.2 % Low 19-41 [facility] MCV (mean corpuscular volume ) determinationOrdered By: Rocio Hilario on 10-10-2024 MCV (RBC) [Entitic vol] 87.7 fL 81-99 [facility] Mean corpuscular hemoglobin (MCH) determinationOrdered By: Rocio Hilario on 10-10-2024 MCH (RBC) [Entitic mass] 27.5 pg 27.0-32.0 [facility] Mean corpuscular hemoglobin concentration (MCHC) determinationOrdered By: Rocio Hilario on 10-10-2024 MCHC (RBC) [Mass/Vol] 31.3 g/dL Low 32-36 [facility] Mean platelet volume determi nationOrdered By: Rocio Hilario on 10-10-2024 Platelet mean volume (Bld) [Entitic vol] 11.3 fL 6.2-12.0 [facility] Monocyte percentageOrdered B y: Rocio Hilario on 10-10-2024 Monocytes/100 WBC (Bld) 10.2 % High 0-10 [facility] Neutrophil percentageOrdered By: Rocio Hilario on 10-10-2024 Neutrophils/100 WBC (Bld) 68.9 % 47-70 [facility] Nucleated red blood cell per centageOrdered By: Rocio Hilario on 10-10-2024 Nucleated RBC/100 WBC (Bld) [Ratio] 0 % 0-5 [facility] Platelet countOrdered By: Tyler Hilario on 10-10-2024 Platelets (Bld) [#/Vol] 193 10*3/uL 150-450 [facility] Potassium measurementOrdered By: Rocio Hilario on 10-10-2024 Potassium [Moles/Vol] 3.8 mmol/L 3.5-5.1 [facility] RBC Auto (Bld) [#/Vol]Ordere d By: Rocio Hilario on 10-10-2024 RBC (Bld) [#/Vol] 4.40 10*6/uL 4.2-5.4 [facility] Serum anion gap measurementO rdered By: Rocio Hilario on 10-10-2024 Anion gap [Moles/Vol] 7 mmol/L 5-15 [facility] Serum globulin measurementOr dered By: Rocio Hilario on 10-10-2024 Globulin (S) [Mass/Vol] 4.1 g/dL 2.2-4.2 [facility] Serum or plasma alanine oviedo otransferase (ALT) measurementOrdered By: Rocio Hilario on 10-10-2024 ALT [Catalytic activity/Vol] 34 U/L 13-56 [facility] Serum or plasma albumin krystin urement (mass/volume)Ordered By: Rocio Hilario on 10-10-2024 Albumin [Mass/Vol] 3.6 g/dL 3.2-5.0 [facility] Serum or plasma alkaline pérez sphatase measurementOrdered By: Rocio Hilario on 10-10-2024 ALP [Catalytic activity/Vol] 83 U/L 45-117 [facility] Serum or plasma calcium krystin urement (mass/volume)Ordered By: Rocio Hilario on 10-10-2024 Calcium [Mass/Vol] 9.4 mg/dL 8.5-10.1 [facility] Serum or plasma creatinine m easurement (mass/volume)Ordered By: Rociokaren Hilario on 10-10-2024 Creatinine [Mass/Vol] 1.43 mg/dL High 0.55-1.02 [facility] Comment on above: The validity of the calculated GFR & GFRAA in patients over 70 years has not been determined. Clinical correlation is essential. Serum or plasma urea nitroge n measurement (mass/volume)Ordered By: Rocio Hilario on 10-10-2024 Urea nitrogen [Mass/Vol] 24 mg/dL High 7-18 [facility] Sodium levelOrdered By: Murtaza Hilario on 10-10-2024 Sodium [Moles/Vol] 138 mmol/L 136-145 [facility] Total creatine kinase measur ementOrdered By: Rocio Hilario on 10-10-2024 CK [Catalytic activity/Vol] 30 U/L 26-192 [facility] Total proteinOrdered By: Steffen Hilario on 10-10-2024 Protein [Mass/Vol] 7.7 g/dL 6.4-8.2 [facility] White blood cell (WBC) count Ordered By: Rocio Hilario on 10-10-2024 WBC (Bld) [#/Vol] 5.3 10*3/uL 4.4-11.0 [facility] CNPNon 10-04-2024 CNPN Normal [facility] Basic metabolic 2000 panelon 10-03-2024 Anion gap [Moles/Vol] 9 mmol/L Normal 8-15 [facility] Comment on above: Order Comment: Speci men Type: BLOOD SPECIMENOrdering Facility: [facility] Address: [address] [place] [address] Performed By: #### 2 4321-2 ####[facility] [id number] [place] [id number] [place] Calcium [Mass/Vol] 9.4 mg/dL Normal 8.5-10.2 [facility] Comment on above: Order Comment: Speci men Type: BLOOD SPECIMENOrdering Facility: [facility] Address: [address] [place] [id number] Performed By: #### 2 4321-2 ####[facility]ITALNCLIA [id number] [place] [address] [place] Chloride [Moles/Vol] 106 mmol/L Normal 98-107 [facility] Comment on above: Order Comment: Speci men Type: BLOOD SPECIMENOrdering Facility: [facility] Address: [address] [place] [address] Performed By: #### 2 4321-2 ####[facility]IT[facility] [id number] [place] [address] [place] CO2 [Moles/Vol] 24 mmol/L Normal 22-30 [facility] Comment on above: Order Comment: Speci men Type: BLOOD SPECIMENOrdering Facility: [facility] Address: [address] [place] [address] Performed By: #### 2 4321-2 ####[facility]ALLIA [id number] [place] [address] [place] Creatinine [Mass/Vol] 1.33 mg/dL High 0.58-0.96 [facility] Comment on above: Order Comment: Speci men Type: BLOOD SPECIMENOrdering Facility: [facility] Address: [address] [place] [address] Performed By: #### 2 4321-2 ####[facility] [id number] [address] [facility] Creatinine and Glomerular filtration rate.predicted panel (S/P/Bld) 41 mL/min/1.73m??? Low >=60 [facility] Comment on above: Order Comment: Speci men Type: BLOOD SPECIMENOrdering Facility: [facility] Address: [address] [place] [address] Result Comment: Nicole mated Glomerular Filtration Rate [...] actual GFR. Performed By: #### 2 4321-2 ####[facility] HOSPITALZORAIDALIIsaias [id number] [place] [address] [place] Glucose [Mass/Vol] 100 mg/dL High 74-99 [facility] Comment on above: Order Comment: Speci oliva Type: BLOOD SPECIMENOrdering Facility: [facility] Address: [address] [place], [place] [address] Result Comment: The [place] Diabetes Association (ADA) provides guidance for cutoff [...] Standards of Medical Care in Diabetes 2016, [place] Diabetes Association. Diabetes Care. 2016.39(Suppl 1). Performed By: #### 2 4321-2 ####[facility] [id number] [place] [address] [place] Potassium [Moles/Vol] 4.4 mmol/L Normal 3.7-5.1 [facility] Comment on above: Order Comment: Lisa men Type: BLOOD SPECIMENOrdering Facility: [facility] Address: [address] [place] [address] Performed By: #### 2 4321-2 ####[facility] [id number] [place] [address] [place] Sodium [Moles/Vol] 139 mmol/L Normal 136-144 [facility] Comment on above: Order Comment: Speci men Type: BLOOD SPECIMENOrdering Facility: [facility] Address: [address] [place] [address] Performed By: #### 2 4321-2 ####[facility] [id number] [place] [address] [place] Urea nitrogen [Mass/Vol] 24 mg/dL High 7-21 [facility] Comment on above: Order Comment: Speci men Type: BLOOD SPECIMENOrdering Facility: [facility] Address: [address] [place] [address] Performed By: #### 2 4321-2 ####[facility] [id number] [place] [address] [place] CBC W Auto Differential pane l (Bld)on 10-03-2024 Basophils (Bld) [#/Vol] 10*3/uL Normal <0.11 [facility] Comment on above: Order Comment: Speci men Type: BLOOD SPECIMENOrdering Facility: [facility] Address: [address] [place] [address] Performed By: #### 5 7021-8 ####[facility] [id number] [place] [address] [place] Basophils/100 WBC (Bld) 0.3 % Normal [facility] Comment on above: Order Comment: Speci men Type: BLOOD SPECIMENOrdering Facility: [facility] Address: [address] [place] [address] Performed By: #### 5 7021-8 ####[facility] [id number] [place] [address] [place] Differential cell count method Nom (Bld) Auto Normal [facility] Comment on above: Order Comment: Speci men Type: BLOOD SPECIMENOrdering Facility: [facility] Address: [address] [place] [address] Performed By: #### 5 7021-8 ####[facility] MILLWNCLIA [id number] [place] [address] [place] Eosinophils (Bld) [#/Vol] 0.11 10*3/uL Normal <0.46 [facility] Comment on above: Order Comment: Speci men Type: BLOOD SPECIMENOrdering Facility: [facility] Address: [address] [place] [address] Performed By: #### 5 7021-8 ####[facility]ALLIA [id number] [place] [address] [place] Eosinophils/100 WBC (Bld) 1.9 % Normal [facility] Comment on above: Order Comment: Speci men Type: BLOOD SPECIMENOrdering Facility: [facility] Address: [address] [place] [address] Performed By: #### 5 7021-8 ####[facility]ITALLIA [id number] [place] [address] [place] Erythrocyte distribution width (RBC) [Ratio] 14.0 % Normal 11.5-15.0 [facility] Comment on above: Order Comment: Speci men Type: BLOOD SPECIMENOrdering Facility: [facility] Address: [address] [place] [address] Performed By: #### 5 7021-8 ####[facility]ITALLIA [id number] [place] [address] [place] Hematocrit (Bld) [Volume fraction] 35.8 % Low 36.0-46.0 [facility] Comment on above: Order Comment: Speci men Type: BLOOD SPECIMENOrdering Facility: [facility] Address: [address] [place] [address] Performed By: #### 5 7021-8 ####[facility]ALLIA [id number] [place] [address] [place] Hemoglobin (Bld) [Mass/Vol] 11.5 g/dL Normal 11.5-15.5 [facility] Comment on above: Order Comment: Speci men Type: BLOOD SPECIMENOrdering Facility: [facility] Address: [address] [place] [address] Performed By: #### 5 7021-8 ####[facility] FLORIDAWAKLIA [id number] [place] [address] [place] Immature granulocytes (Bld) [#/Vol] 10*3/uL Normal <0.10 [facility] Comment on above: Order Comment: Speci men Type: BLOOD SPECIMENOrdering Facility: [facility] Address: [address] [place] [address] Performed By: #### 5 7021-8 ####[facility] [id number] [place] [address] [place] Immature granulocytes/100 WBC (Bld) 0.3 % Normal [facility] Comment on above: Order Comment: Speci men Type: BLOOD SPECIMENOrdering Facility: [facility] Address: [address] [place] [address] Performed By: #### 5 7021-8 ####[facility]ALLIA [id number] [place] [address] [place] Lymphocytes (Bld) [#/Vol] 1.09 10*3/uL Normal 1.00-4.00 [facility] Comment on above: Order Comment: Speci men Type: BLOOD SPECIMENOrdering Facility: [facility] Address: [address] [place] [address] Performed By: #### 5 7021-8 ####[facility]PITALNCLIA [id number] [place] [address] [place] Lymphocytes/100 WBC (Bld) 18.7 % Normal [facility] Comment on above: Order Comment: Speci men Type: BLOOD SPECIMENOrdering Facility: [facility] Address: [address] [place], [place] [address] Performed By: #### 5 7021-8 ####[facility] MARIANNFERNANDO [id number] [place] [address] [place] MCH (RBC) [Entitic mass] 28.1 pg Normal 26.0-34.0 [facility] Comment on above: Order Comment: Speci men Type: BLOOD SPECIMENOrdering Facility: [facility] Address: [address] [place], [place] [address] Performed By: #### 5 7021-8 ####[facility] HOSPITALNCRADHA [id number] [place] [address] [place] MCHC (RBC) [Mass/Vol] 32.1 g/dL Normal 30.5-36.0 [facility] Comment on above: Order Comment: Speci men Type: BLOOD SPECIMENOrdering Facility: [facility] Address: [address] [place], [place] [address] Performed By: #### 5 7021-8 ####[facility] HOSPITALNCA [id number] [place] [address] [place] MCV (RBC) [Entitic vol] 87.5 fL Normal 80.0-100.0 [facility] Comment on above: Order Comment: Speci men Type: BLOOD SPECIMENOrdering Facility: [facility] Address: [address] [place], [place] [address] Performed By: #### 5 7021-8 ####[facility]A [id number] [place] [address] [place] Monocytes (Bld) [#/Vol] 0.69 10*3/uL Normal <0.87 [facility] Comment on above: Order Comment: Speci men Type: BLOOD SPECIMENOrdering Facility: [facility] Address: [address] [place], [place] [address] Performed By: #### 5 7021-8 ####[facility] MILLWNCLIA [id number] [place] [address] [place] Monocytes/100 WBC (Bld) 11.9 % Normal [facility] Comment on above: Order Comment: Speci men Type: BLOOD SPECIMENOrdering Facility: [facility] Address: [address] [place] [address] Performed By: #### 5 7021-8 ####[facility]ITALNCLIA [id number] [place] [address] [place] Neutrophils (Bld) [#/Vol] 3.89 10*3/uL Normal 1.45-7.50 [facility] Comment on above: Order Comment: Speci men Type: BLOOD SPECIMENOrdering Facility: [facility] Address: [address] [place] [address] Performed By: #### 5 7021-8 ####[facility] HOSPITALLIA [id number] [place] [address] [place] Neutrophils/100 WBC (Bld) 66.9 % Normal [facility] Comment on above: Order Comment: Speci men Type: BLOOD SPECIMENOrdering Facility: [facility] Address: [address] [place] [address] Performed By: #### 5 7021-8 ####[facility]ITALNCLIA [id number] [place] [address] [place] Nucleated RBC (Bld) [#/Vol] 10*3/uL Normal <0.01 [facility] Comment on above: Order Comment: Speci men Type: BLOOD SPECIMENOrdering Facility: [facility] Address: [address] [place] [address] Performed By: #### 5 7021-8 ####[facility]ITALNCLIA [id number] [place] [id number] [place] Nucleated RBC/100 WBC (Bld) [Ratio] 0.0 /100 WBC Normal [facility] Comment on above: Order Comment: Speci men Type: BLOOD SPECIMENOrdering Facility: [facility] Address: [address] [place] [address] Performed By: #### 5 7021-8 ####[facility] HOSPITALNCAMYA [id number] [place] [address] [place] Platelet mean volume (Bld) [Entitic vol] 9.9 fL Normal 9.0-12.7 [facility] Comment on above: Order Comment: Speci men Type: BLOOD SPECIMENOrdering Facility: [facility] Address: [address] [place] [address] Performed By: #### 5 7021-8 ####[facility] HOSPITALNCA [id number] [place] [address] [place] Platelets (Bld) [#/Vol] 173 10*3/uL Normal 150-400 [facility] Comment on above: Order Comment: Speci men Type: BLOOD SPECIMENOrdering Facility: [facility] Address: [address] [place] [address] Performed By: #### 5 7021-8 ####[facility]ITALNCLIA [id number] [place] [address] [place] RBC (Bld) [#/Vol] 4.09 10*6/uL Normal 3.90-5.20 [facility] Comment on above: Order Comment: Speci men Type: BLOOD SPECIMENOrdering Facility: [facility] Address: [address] [place] [address] Performed By: #### 5 7021-8 ####[facility]ITALNCLIA [id number] [place] [address] [place] WBC (Bld) [#/Vol] 5.82 10*3/uL Normal 3.70-11.00 [facility] Comment on above: Order Comment: Speci men Type: BLOOD SPECIMENOrdering Facility: [facility] Address: [place] [id number] Performed By: #### 5 7021-8 ####[facility] STEPHANIE [facility] HOSPITALRADHA [id number] [place] [id number] [place] CNOVon 10-03-2024 CNOV Normal [facility] CNPNon 09-16-2024 CNPN Normal [facility] CNOVon 09-15-2024 CNOV Normal [facility] Urinalysis complete panel (U )on 09-13-2024 Bacteria LM.HPF (Urine sed) [#/Area] Negative Negative /HPF [facility] Bilirubin Ql (U) Negative Negative [facility] Clarity (Unsp spec) Clear Clear [facility] Color (U) Yellow Yellow [facility] Epithelial cells LM.HPF (Urine sed) [#/Area] None Seen /HPF [facility] Glucose Test strip (U) [Mass/Vol] Negative Negative [facility] Hemoglobin Ql (U) 3+ Abnormal Negative [facility] Hyaline casts (Urine sed) [#/Area] 0 /[LPF] 0 /LPF [facility] Interpretation and review of laboratory results Abnormal [facility] Ketones Ql (U) Negative Negative [facility] Leukocyte esterase Test strip Ql (U) Negative Negative [facility] Nitrite Ql (U) Negative Negative [facility] pH (U) 6.0 [pH] NINF - 8.5 [facility] Protein (U) [Mass/Vol] 1+ Abnormal Negative [facility] RBC LM.HPF (Urine sed) [#/Area] /[HPF] Abnormal 0-2 /HPF [facility] Specific gravity (U) [Rel density] 1.018 1.005 - 1.030 [facility] Urobilinogen Ql (U) 0.2 EU/dL 0.2-1.0 EU/dL [facility] WBC LM.HPF (Urine sed) [#/Area] 0-5 /HPF 0-5 /HPF [facility] This test was frances wynn and its performance characteristics determined by [facility]'s [facility] [place] ([facility]ENTERPLMN). It has not been cleared or approved by the FDA. -[facility] is regulated under CLIA as qualified to perform high-complexity testing. This test is used for clinical purposes. It should not be regarded as investigational or for research. [facility] Bacteria Ur Culton Bacteria identified Cx Nom (U) ORGANISM ID: 1 10,000 -<50,000 CFU/ml Normal [facility] [place] Normal [facility] Comment on above: Performed By: #### 6 30-4 ####[facility] LABIA [id number] [place] [address] [place] CNOVon 09-12-2024 CNOV Normal [facility] Urinalysis complete panel (U )on 09-12-2024 Bacteria LM.HPF (Urine sed) [#/Area] Negative Normal Negative [facility] Comment on above: Order Comment: Speci men Type: URINE SPECIMENOrdering Facility: [facility] Address: [address] [place] [address] Performed By: #### 2 4356-8 ####[facility] LABIA [id number] [place] [address] [place] Bilirubin Ql (U) Negative Normal Negative [facility] Comment on above: Order Comment: Speci men Type: URINE SPECIMENOrdering Facility: [facility] Address: [address] [place] [address] Performed By: #### 2 4356-8 ####[facility] LABIA [id number] [place] [id number] [place] Clarity (Unsp spec) Clear Normal Clear [facility] Comment on above: Order Comment: Speci men Type: URINE SPECIMENOrdering Facility: [facility] Address: [address] [place] [address] Performed By: #### 2 4356-8 ####[facility] LABIA [id number] [place] [id number] [place] Color (U) Yellow Normal Yellow [facility] Comment on above: Order Comment: Speci men Type: URINE SPECIMENOrdering Facility: [facility] Address: [address] [place] [address] Performed By: #### 2 4356-8 ####[facility] LABCLIA [id number] [place] [address] [place] Epithelial cells LM.HPF (Urine sed) [#/Area] None Seen Normal [facility] Comment on above: Order Comment: Speci men Type: URINE SPECIMENOrdering Facility: [facility] Address: [address] [place] [address] Performed By: #### 2 4356-8 ####[facility] LABCLIA [id number] [place] [address] [place] Glucose Test strip (U) [Mass/Vol] Negative Normal Negative [facility] Comment on above: Order Comment: Speci men Type: URINE SPECIMENOrdering Facility: [facility] Address: [address] [place] [address] Performed By: #### 2 4356-8 ####[facility] LABCLIA [id number] [place] [address] [place] Hemoglobin Ql (U) 3+ Abnormal Negative [facility] Comment on above: Order Comment: Speci men Type: URINE SPECIMENOrdering Facility: [facility] Address: [address] [place] [address] Performed By: #### 2 4356-8 ####[facility] LABCLIA [id number] [place] [address] [place] Hyaline casts (Urine sed) [#/Area] 0 /[LPF] Normal 0 /LPF [facility] Comment on above: Order Comment: Speci men Type: URINE SPECIMENOrdering Facility: [facility] Address: [address] [place] [address] Performed By: #### 2 4356-8 ####[facility] LABCLIA [id number] [place] [address] [place] Ketones Ql (U) Negative Normal Negative [facility] Comment on above: Order Comment: Speci men Type: URINE SPECIMENOrdering Facility: [facility] Address: [address] [place] [address] Performed By: #### 2 4356-8 ####[facility] LABCLIA [id number] [place] [address] [place] Leukocyte esterase Test strip Ql (U) Negative Normal Negative [facility] Comment on above: Order Comment: Speci men Type: URINE SPECIMENOrdering Facility: [facility] Address: [address] [place] [address] Performed By: #### 2 4356-8 ####[facility] LABCLIA [id number] [place] [address] [place] Nitrite Ql (U) Negative Normal Negative [facility] Comment on above: Order Comment: Speci men Type: URINE SPECIMENOrdering Facility: [facility] Address: [address] [place] [address] Performed By: #### 2 4356-8 ####[facility] LABCLIA [id number] [place] [address] [place] pH (U) 6.0 [pH] Normal <8.5 [facility] Comment on above: Order Comment: Speci men Type: URINE SPECIMENOrdering Facility: [facility] Address: [address] [place] [address] Performed By: #### 2 4356-8 ####[facility] LABCLIA [id number] [place] [address] [place] Protein (U) [Mass/Vol] 1+ Abnormal Negative [facility] Comment on above: Order Comment: Speci men Type: URINE SPECIMENOrdering Facility: [facility] Address: [address] [place] [address] Performed By: #### 2 4356-8 ####[facility] LABCLIA [id number] [place] [address] [place] RBC LM.HPF (Urine sed) [#/Area] /[HPF] Abnormal 0-2 /HPF [facility] Comment on above: Order Comment: Speci men Type: URINE SPECIMENOrdering Facility: [facility] Address: [address] [place] [address] Performed By: #### 2 4356-8 ####[facility] LABIA [id number] [place] [address] [place] Specific gravity (U) [Rel density] 1.018 Normal 1.005-1.030 [facility] Comment on above: Order Comment: Speci men Type: URINE SPECIMENOrdering Facility: [facility] Address: [address] [place] [address] Performed By: #### 2 4356-8 ####[facility] LABIA [id number] [place] [address] [place] Urobilinogen Ql (U) 0.2 EU/dL Normal 0.2-1.0 EU/dL [facility] Comment on above: Order Comment: Speci men Type: URINE SPECIMENOrdering Facility: [facility] Address: [address] [place] [address] Performed By: #### 2 4356-8 ####[facility] LABIA [id number] [place] [address] [place] WBC LM.HPF (Urine sed) [#/Area] 0-5 /HPF Normal 0-5 /HPF [facility] Comment on above: Order Comment: Speci men Type: URINE SPECIMENOrdering Facility: [facility] Address: [address] [place] [address] Performed By: #### 2 4356-8 ####[facility] LABIA [id number] [place] [address] [place] CBC W Auto Differential pane l (Bld)on 09-08-2024 Basophils (Bld) [#/Vol] 0.03 10*3/uL Normal <0.11 [facility] Comment on above: Order Comment: Speci men Type: BLOOD SPECIMENOrdering Facility: [facility] Address: [address] [place] [address] Performed By: #### 5 7021-8 ####[facility] LABCLIA [id number] [place] [address] [place] Basophils/100 WBC (Bld) 0.6 % Normal [facility] Comment on above: Order Comment: Speci men Type: BLOOD SPECIMENOrdering Facility: [facility] Address: [address] [place] [address] Performed By: #### 5 7021-8 ####[facility] LABCLIA [id number] [place] [address] [place] Differential cell count method Nom (Bld) Auto Normal [facility] Comment on above: Order Comment: Speci men Type: BLOOD SPECIMENOrdering Facility: [facility] Address: [address] [place] [address] Performed By: #### 5 7021-8 ####[facility] LABCLIA [id number] [place] [address] [place] Eosinophils (Bld) [#/Vol] 0.11 10*3/uL Normal <0.46 [facility] Comment on above: Order Comment: Speci men Type: BLOOD SPECIMENOrdering Facility: [facility] Address: [address] [place] [address] Performed By: #### 5 7021-8 ####[facility] LABCLIA [id number] [place] [address] [place] Eosinophils/100 WBC (Bld) 2.0 % Normal [facility] Comment on above: Order Comment: Speci men Type: BLOOD SPECIMENOrdering Facility: [facility] Address: [address] [place] [address] Performed By: #### 5 7021-8 ####[facility] LABCLIA [id number] [place] [address] [place] Erythrocyte distribution width (RBC) [Ratio] 14.2 % Normal 11.5-15.0 [facility] Comment on above: Order Comment: Speci men Type: BLOOD SPECIMENOrdering Facility: [facility] Address: [address] [place] [address] Performed By: #### 5 7021-8 ####[facility] LABCLIA [id number] [place] [address] [place] Hematocrit (Bld) [Volume fraction] 34.7 % Low 36.0-46.0 [facility] Comment on above: Order Comment: Speci men Type: BLOOD SPECIMENOrdering Facility: [facility] Address: [address] [place] [address] Performed By: #### 5 7021-8 ####[facility] LABCLIA [id number] [place] [address] [place] Hemoglobin (Bld) [Mass/Vol] 10.9 g/dL Low 11.5-15.5 [facility] Comment on above: Order Comment: Speci men Type: BLOOD SPECIMENOrdering Facility: [facility] Address: [address] [place] [address] Performed By: #### 5 7021-8 ####[facility] LABCLIA [id number] [place] [address] [place] Immature granulocytes (Bld) [#/Vol] 10*3/uL Normal <0.10 [facility] Comment on above: Order Comment: Speci men Type: BLOOD SPECIMENOrdering Facility: [facility] Address: [address] [place] [address] Performed By: #### 5 7021-8 ####[facility] LABCLIA [id number] [place] [address] [place] Immature granulocytes/100 WBC (Bld) 0.2 % Normal [facility] Comment on above: Order Comment: Speci men Type: BLOOD SPECIMENOrdering Facility: [facility] Address: [address] [place] [address] Performed By: #### 5 7021-8 ####[facility] LABCLIA [id number] [place] [address] [place] Lymphocytes (Bld) [#/Vol] 1.13 10*3/uL Normal 1.00-4.00 [facility] Comment on above: Order Comment: Speci men Type: BLOOD SPECIMENOrdering Facility: [facility] Address: [address] [place] [address] Performed By: #### 5 7021-8 ####[facility] LABCLIA [id number] [place] [address] [place] Lymphocytes/100 WBC (Bld) 21.0 % Normal [facility] Comment on above: Order Comment: Speci men Type: BLOOD SPECIMENOrdering Facility: [facility] Address: [address] [place] [address] Performed By: #### 5 7021-8 ####[facility] LABCLIA [id number] [place] [address] [place] MCH (RBC) [Entitic mass] 27.6 pg Normal 26.0-34.0 [facility] Comment on above: Order Comment: Speci men Type: BLOOD SPECIMENOrdering Facility: [facility] Address: [address] [place] [address] Performed By: #### 5 7021-8 ####[facility] LABCLIA [id number] [place] [address] [place] MCHC (RBC) [Mass/Vol] 31.4 g/dL Normal 30.5-36.0 [facility] Comment on above: Order Comment: Speci men Type: BLOOD SPECIMENOrdering Facility: [facility] Address: [address] [place] [address] Performed By: #### 5 7021-8 ####[facility] LABIA [id number] [place] [address] [place] MCV (RBC) [Entitic vol] 87.8 fL Normal 80.0-100.0 [facility] Comment on above: Order Comment: Speci men Type: BLOOD SPECIMENOrdering Facility: [facility] Address: [address] [place] [address] Performed By: #### 5 7021-8 ####[facility] LABIA [id number] [place] [address] [place] Monocytes (Bld) [#/Vol] 0.71 10*3/uL Normal <0.87 [facility] Comment on above: Order Comment: Speci men Type: BLOOD SPECIMENOrdering Facility: [facility] Address: [address] [place] [address] Performed By: #### 5 7021-8 ####[facility] LABIA [id number] [place] [address] [place] Monocytes/100 WBC (Bld) 13.2 % Normal [facility] Comment on above: Order Comment: Speci men Type: BLOOD SPECIMENOrdering Facility: [facility] Address: [address] [place] [address] Performed By: #### 5 7021-8 ####[facility] LABIA [id number] [place] [address] [place] Neutrophils (Bld) [#/Vol] 3.40 10*3/uL Normal 1.45-7.50 [facility] Comment on above: Order Comment: Speci men Type: BLOOD SPECIMENOrdering Facility: [facility] Address: [address] [place] [address] Performed By: #### 5 7021-8 ####[facility] LABCLIA [id number] [place] [address] [place] Neutrophils/100 WBC (Bld) 63.0 % Normal [facility] Comment on above: Order Comment: Speci men Type: BLOOD SPECIMENOrdering Facility: [facility] Address: [address] [place] [address] Performed By: #### 5 7021-8 ####[facility] LABCLIA [id number] [place] [address] [place] Nucleated RBC (Bld) [#/Vol] 10*3/uL Normal <0.01 [facility] Comment on above: Order Comment: Speci men Type: BLOOD SPECIMENOrdering Facility: [facility] Address: [address] [place] [address] Performed By: #### 5 7021-8 ####[facility] LABCLIA [id number] [place] [address] [place] Nucleated RBC/100 WBC (Bld) [Ratio] 0.0 /100 WBC Normal [facility] Comment on above: Order Comment: Speci men Type: BLOOD SPECIMENOrdering Facility: [facility] Address: [address] [place] [address] Performed By: #### 5 7021-8 ####[facility] LABCLIA [id number] [place] [address] [place] Platelet mean volume (Bld) [Entitic vol] 11.0 fL Normal 9.0-12.7 [facility] Comment on above: Order Comment: Speci men Type: BLOOD SPECIMENOrdering Facility: [facility] Address: [address] [place] [address] Performed By: #### 5 7021-8 ####[facility] LABCLIA [id number] [place] [address] [place] Platelets (Bld) [#/Vol] 219 10*3/uL Normal 150-400 [facility] Comment on above: Order Comment: Speci men Type: BLOOD SPECIMENOrdering Facility: [facility] Address: [address] [place] [address] Performed By: #### 5 7021-8 ####[facility] LABCLIA [id number] [place] [address] [place] RBC (Bld) [#/Vol] 3.95 10*6/uL Normal 3.90-5.20 [facility] Comment on above: Order Comment: Speci men Type: BLOOD SPECIMENOrdering Facility: [facility] Address: [address] [place] [address] Performed By: #### 5 7021-8 ####[facility] LABIA [id number] [place] [address] [place] WBC (Bld) [#/Vol] 5.39 10*3/uL Normal 3.70-11.00 [facility] Comment on above: Order Comment: Speci men Type: BLOOD SPECIMENOrdering Facility: [facility] Address: [address] [place] [address] Performed By: #### 5 7021-8 ####[facility] LABIA [id number] [place] [address] [place] CNPNon 08-29-2024 CNPN Normal [facility] Hemoccult Stl Ql IAon 2023 Lower GI hemoglobin IA Ql (Stl) Negative Normal Negative [facility] Comment on above: Order Comment: Speci men Type: STOOL SPECIMENOrdering Facility: [facility] Address: [address] [place] [address] Performed By: #### 2 9771-3 ####[facility] LABIA [id number] [place] [address] [place] CBC W Auto Differential pane l (Bld)on 08-24-2024 Basophils (Bld) [#/Vol] 0.03 10*3/uL Normal <0.11 [facility] Comment on above: Order Comment: Speci men Type: BLOOD SPECIMENOrdering Facility: [facility] Address: [address] [place] [address] Performed By: #### 5 7021-8, 95728-5 ####[facility] LABCLIA [id number] [place] [address] [place] Basophils/100 WBC (Bld) 0.4 % Normal [facility] Comment on above: Order Comment: Speci men Type: BLOOD SPECIMENOrdering Facility: [facility] Address: [address] [place] [address] Performed By: #### 5 7021-8, 55853-8 ####[facility] LABCLIA [id number] [place] [address] [place] Differential cell count method Nom (Bld) Auto Normal [facility] Comment on above: Order Comment: Speci men Type: BLOOD SPECIMENOrdering Facility: [facility] Address: [address] [place] [address] Performed By: #### 5 7021-8, 88407-7 ####[facility] LABCLIA [id number] [place] [address] [place] Eosinophils (Bld) [#/Vol] 0.13 10*3/uL Normal <0.46 [facility] Comment on above: Order Comment: Speci men Type: BLOOD SPECIMENOrdering Facility: [facility] Address: [address] [place] [address] Performed By: #### 5 7021-8, 17718-5 ####[facility] LABCLIA [id number] [place] [address] [place] Eosinophils/100 WBC (Bld) 1.8 % Normal [facility] Comment on above: Order Comment: Speci men Type: BLOOD SPECIMENOrdering Facility: [facility] Address: [address] [place] [address] Performed By: #### 5 7021-8, 51036-3 ####[facility] LABCLIA [id number] [place] [address] [place] Erythrocyte distribution width (RBC) [Ratio] 14.2 % Normal 11.5-15.0 [facility] Comment on above: Order Comment: Speci men Type: BLOOD SPECIMENOrdering Facility: [facility] Address: [address] [place] [address] Performed By: #### 5 7021-8, 49129-2 ####[facility] LABCLIA [id number] [place] [address] [place] Hematocrit (Bld) [Volume fraction] 35.5 % Low 36.0-46.0 [facility] Comment on above: Order Comment: Speci men Type: BLOOD SPECIMENOrdering Facility: [facility] Address: [address] [place] [address] Performed By: #### 5 7021-8, 42266-3 ####[facility] LABCLIA [id number] [place] [address] [place] Hemoglobin (Bld) [Mass/Vol] 11.2 g/dL Low 11.5-15.5 [facility] Comment on above: Order Comment: Speci men Type: BLOOD SPECIMENOrdering Facility: [facility] Address: [address] [place] [address] Performed By: #### 5 7021-8, 97966-0 ####[facility] LABCLIA [id number] [place] [address] [place] Immature granulocytes (Bld) [#/Vol] 10*3/uL Normal <0.10 [facility] Comment on above: Order Comment: Speci men Type: BLOOD SPECIMENOrdering Facility: [facility] Address: [address] [place] [address] Performed By: #### 5 7021-8, 61738-8 ####[facility] LABCLIA [id number] [place] [address] [place] Immature granulocytes/100 WBC (Bld) 0.3 % Normal [facility] Comment on above: Order Comment: Speci men Type: BLOOD SPECIMENOrdering Facility: [facility] Address: [address] [place] [address] Performed By: #### 5 7021-8, 94965-7 ####[facility] LABCLIA [id number] [place] [address] [place] Lymphocytes (Bld) [#/Vol] 0.97 10*3/uL Low 1.00-4.00 [facility] Comment on above: Order Comment: Speci men Type: BLOOD SPECIMENOrdering Facility: [facility] Address: [address] [place] [address] Performed By: #### 5 7021-8, 54694-4 ####[facility] LABCLIA [id number] [place] [address] [place] Lymphocytes/100 WBC (Bld) 13.7 % Normal [facility] Comment on above: Order Comment: Speci men Type: BLOOD SPECIMENOrdering Facility: [facility] Address: [address] [place] [address] Performed By: #### 5 7021-8, 32720-2 ####[facility] LABCLIA [id number] [place] [address] [place] MCH (RBC) [Entitic mass] 28.3 pg Normal 26.0-34.0 [facility] Comment on above: Order Comment: Speci men Type: BLOOD SPECIMENOrdering Facility: [facility] Address: [address] [place] [address] Performed By: #### 5 7021-8, 18400-0 ####[facility] LABCLIA [id number] [place] [address] [place] MCHC (RBC) [Mass/Vol] 31.5 g/dL Normal 30.5-36.0 [facility] Comment on above: Order Comment: Speci men Type: BLOOD SPECIMENOrdering Facility: [facility] Address: [address] [place] [address] Performed By: #### 5 7021-8, 88452-8 ####[facility] LABCLIA [id number] [place] [address] [place] MCV (RBC) [Entitic vol] 89.6 fL Normal 80.0-100.0 [facility] Comment on above: Order Comment: Speci men Type: BLOOD SPECIMENOrdering Facility: [facility] Address: [address] [place] [address] Performed By: #### 5 7021-8, 71391-3 ####[facility] LABCLIA [id number] [place] [address] [place] Monocytes (Bld) [#/Vol] 1.18 10*3/uL High <0.87 [facility] Comment on above: Order Comment: Speci men Type: BLOOD SPECIMENOrdering Facility: [facility] Address: [address] [place] [address] Performed By: #### 5 7021-8, 08173-8 ####[facility] LABCLIA [id number] [place] [address] [place] Monocytes/100 WBC (Bld) 16.7 % Normal [facility] Comment on above: Order Comment: Speci men Type: BLOOD SPECIMENOrdering Facility: [facility] Address: [address] [place] [address] Performed By: #### 5 7021-8, 12509-1 ####[facility] LABCLIA [id number] [place] [address] [place] Neutrophils (Bld) [#/Vol] 4.75 10*3/uL Normal 1.45-7.50 [facility] Comment on above: Order Comment: Speci men Type: BLOOD SPECIMENOrdering Facility: [facility] Address: [address] [place] [address] Performed By: #### 5 7021-8, 51983-3 ####[facility] LABCLIA [id number] [place] [address] [place] Neutrophils/100 WBC (Bld) 67.1 % Normal [facility] Comment on above: Order Comment: Speci men Type: BLOOD SPECIMENOrdering Facility: [facility] Address: [address] [place] [address] Performed By: #### 5 7021-8, 38892-6 ####[facility] LABCLIA [id number] [place] [address] [place] Nucleated RBC (Bld) [#/Vol] 10*3/uL Normal <0.01 [facility] Comment on above: Order Comment: Speci men Type: BLOOD SPECIMENOrdering Facility: [facility] Address: [address] [place] [address] Performed By: #### 5 7021-8, 27382-9 ####[facility] LABIA [id number] [place] [address] [place] Nucleated RBC/100 WBC (Bld) [Ratio] 0.0 /100 WBC Normal [facility] Comment on above: Order Comment: Speci men Type: BLOOD SPECIMENOrdering Facility: [facility] Address: [address] [place] [address] Performed By: #### 5 7021-8, 29336-9 ####[facility] LABIA [id number] [place] [address] [place] Platelet mean volume (Bld) [Entitic vol] 11.5 fL Normal 9.0-12.7 [facility] Comment on above: Order Comment: Speci men Type: BLOOD SPECIMENOrdering Facility: [facility] Address: [address] [place] [address] Performed By: #### 5 7021-8, 58962-8 ####[facility] LABCLIA [id number] [place] [id number] [place] Platelets (Bld) [#/Vol] 179 10*3/uL Normal 150-400 [facility] Comment on above: Order Comment: Speci men Type: BLOOD SPECIMENOrdering Facility: [facility] Address: [address] [place] [address] Performed By: #### 5 7021-8, 55348-3 ####[facility] LABIA [id number] [place] [id number] [place] RBC (Bld) [#/Vol] 3.96 10*6/uL Normal 3.90-5.20 [facility] Comment on above: Order Comment: Speci men Type: BLOOD SPECIMENOrdering Facility: [facility] Address: [address] [place] [address] Performed By: #### 5 7021-8, 36558-6 ####[facility] LABIA [id number] [place] [address] [place] WBC (Bld) [#/Vol] 7.08 10*3/uL Normal 3.70-11.00 [facility] Comment on above: Order Comment: Speci men Type: BLOOD SPECIMENOrdering Facility: [facility] Address: [address] [place] [address] Performed By: #### 5 7021-8, 23231-9 ####[facility] LABIA [id number] [place] [id number] [place] Ferritin SerPl-mCncon 2023 Ferritin [Mass/Vol] 174.0 ng/mL Normal 14.7-205.1 [facility] Comment on above: Order Comment: Speci men Type: BLOOD SPECIMENOrdering Facility: [facility] Address: [address] [place] [address] Performed By: #### 5 0190-8, 9, 4, 2284-06 ####[facility] LABCLIA [id number] [place] [id number] [place] Folate SerPl-mCncon 08-24-20 24 Folate [Mass/Vol] 7.6 ng/mL Normal >4.7 [facility] Comment on above: Order Comment: Speci men Type: BLOOD SPECIMENOrdering Facility: [facility] Address: [address] [place] [address] Performed By: #### 5 0190-8, 9, 4, 2284-06 ####[facility] LABCLIA [id number] [place] [address] [place] Iron and Iron binding capaci ty panel 08-24-2024 Iron [Mass/Vol] 41 ug/dL Normal 41-186 [facility] Comment on above: Order Comment: Speci men Type: BLOOD SPECIMENOrdering Facility: [facility] Address: [address] [place] [address] Performed By: #### 5 0190-8, 9, 2276-02, 8 ####[facility] LABIA [id number] [place] [address] [place] Iron binding capacity [Mass/Vol] 239 ug/dL Normal 232-386 [facility] Comment on above: Order Comment: Speci men Type: BLOOD SPECIMENOrdering Facility: [facility] Address: [address] [place] [address] Performed By: #### 5 0190-8, 2131-9, 2276-02, 2284-06 ####[facility] LABCLIA [id number] [place] [address] [place] Iron/TIBC [Molar ratio] 17.2 % Normal 15.0-57.0 [facility] Comment on above: Order Comment: Speci men Type: BLOOD SPECIMENOrdering Facility: [facility] Address: [address] [place] [address] Performed By: #### 5 0190-8, 9, 2276-02, 2284-06 ####[facility] LABCLIA [id number] [place] [address] [place] Retics #on 08-24-2024 Reticulocytes (Bld) [#/Vol] 0.92382 10*3/uL Normal 0.018-0.100 [facility] Comment on above: Order Comment: Speci men Type: BLOOD SPECIMENOrdering Facility: [facility] Address: [address] [place] [address] Performed By: #### 5 7021-8, 73097-4 ####[facility] LABCLIA [id number] [place] [address] [place] Reticulocytes (Bld) [#/Vol]o n 08-24-2024 Reticulocytes/100 RBC (Bld) 1.0 % Normal 0.4-2.0 [facility] Comment on above: Order Comment: Speci men Type: BLOOD SPECIMENOrdering Facility: [facility] Address: [address] [place] [address] Performed By: #### 5 7021-8, 94841-3 ####[facility] LABIA [id number] [place] [address] [place] Vit B12 [facility] Cobalamin (Vitamin B12) [Mass/Vol] 510 pg/mL Normal 232-1245 [facility] Comment on above: Order Comment: Speci men Type: BLOOD SPECIMENOrdering Facility: [facility] Address: [address] [place] [address] Performed By: #### 5 0190-8, 9, 2276-02, 2284-06 ####[facility] LABCLIA [id number] [place] [address] [place] CNPNon 08-16-2024 CNPN Normal [facility] CBC W Auto Differential pane l (Bld)on 08-13-2024 Basophils (Bld) [#/Vol] 10*3/uL Normal <0.11 [facility] Comment on above: Order Comment: Speci men Type: BLOOD SPECIMENOrdering Facility: [facility] Address: [address] [place] [address] Performed By: #### 5 7021-8, 4536-7 ####[facility] LABCLIA [id number] [place] [address] [place] Basophils/100 WBC (Bld) 0.1 % Normal [facility] Comment on above: Order Comment: Speci men Type: BLOOD SPECIMENOrdering Facility: [facility] Address: [address] [place] [address] Performed By: #### 5 7021-8, 7-7 ####[facility] LABCLIA [id number] [place] [address] [place] Differential cell count method Nom (Bld) Auto Normal [facility] Comment on above: Order Comment: Speci men Type: BLOOD SPECIMENOrdering Facility: [facility] Address: [address] [place] [address] Performed By: #### 5 7021-8, 4536-7 ####[facility] LABCLIA [id number] [place] [address] [place] Eosinophils (Bld) [#/Vol] 10*3/uL Normal <0.46 [facility] Comment on above: Order Comment: Speci men Type: BLOOD SPECIMENOrdering Facility: [facility] Address: [address] [place] [address] Performed By: #### 5 7021-8, 7-7 ####[facility] LABCLIA [id number] [place] [address] [place] Eosinophils/100 WBC (Bld) 0.0 % Normal [facility] Comment on above: Order Comment: Speci men Type: BLOOD SPECIMENOrdering Facility: [facility] Address: [address] [place] [address] Performed By: #### 5 7021-8, 4537-7 ####[facility] LABCLIA [id number] [place] [address] [place] Erythrocyte distribution width (RBC) [Ratio] 14.4 % Normal 11.5-15.0 [facility] Comment on above: Order Comment: Speci men Type: BLOOD SPECIMENOrdering Facility: [facility] Address: [address] [place] [address] Performed By: #### 5 7021-8, 4537-7 ####[facility] LABCLIA [id number] [place] [address] [place] Hematocrit (Bld) [Volume fraction] 36.6 % Normal 36.0-46.0 [facility] Comment on above: Order Comment: Speci men Type: BLOOD SPECIMENOrdering Facility: [facility] Address: [address] [place] [address] Performed By: #### 5 7021-8, 4537-7 ####[facility] LABIA [id number] [place] [address] [place] Hemoglobin (Bld) [Mass/Vol] 11.3 g/dL Low 11.5-15.5 [facility] Comment on above: Order Comment: Speci men Type: BLOOD SPECIMENOrdering Facility: [facility] Address: [address] [place] [address] Performed By: #### 5 7021-8, 4537-7 ####[facility] LABCLIA [id number] [place] [address] [place] Immature granulocytes (Bld) [#/Vol] 0.03 10*3/uL Normal <0.10 [facility] Comment on above: Order Comment: Speci men Type: BLOOD SPECIMENOrdering Facility: [facility] Address: [address] [place] [address] Performed By: #### 5 7021-8, 7-7 ####[facility] LABCLIA [id number] [place] [address] [place] Immature granulocytes/100 WBC (Bld) 0.3 % Normal [facility] Comment on above: Order Comment: Speci men Type: BLOOD SPECIMENOrdering Facility: [facility] Address: [address] [place] [address] Performed By: #### 5 7021-8, 4536-7 ####[facility] LABCLIA [id number] [place] [address] [place] Lymphocytes (Bld) [#/Vol] 0.95 10*3/uL Low 1.00-4.00 [facility] Comment on above: Order Comment: Speci men Type: BLOOD SPECIMENOrdering Facility: [facility] Address: [address] [place] [address] Performed By: #### 5 7021-8, 4536-7 ####[facility] LABCLIA [id number] [place] [address] [place] Lymphocytes/100 WBC (Bld) 10.8 % Normal [facility] Comment on above: Order Comment: Speci men Type: BLOOD SPECIMENOrdering Facility: [facility] Address: [address] [place] [address] Performed By: #### 5 7021-8, 4536-7 ####[facility] LABCLIA [id number] [place] [address] [place] MCH (RBC) [Entitic mass] 27.6 pg Normal 26.0-34.0 [facility] Comment on above: Order Comment: Speci men Type: BLOOD SPECIMENOrdering Facility: [facility] Address: [address] [place] [address] Performed By: #### 5 7021-8, 4536-7 ####[facility] LABCLIA [id number] [place] [address] [place] MCHC (RBC) [Mass/Vol] 30.9 g/dL Normal 30.5-36.0 [facility] Comment on above: Order Comment: Speci men Type: BLOOD SPECIMENOrdering Facility: [facility] Address: [address] [place] [address] Performed By: #### 5 7021-8, 4537-7 ####[facility] LABIA [id number] [place] [address] [place] MCV (RBC) [Entitic vol] 89.5 fL Normal 80.0-100.0 [facility] Comment on above: Order Comment: Speci men Type: BLOOD SPECIMENOrdering Facility: [facility] Address: [address] [place] [address] Performed By: #### 5 7021-8, 4536-7 ####[facility] LABIA [id number] [place] [address] [place] Monocytes (Bld) [#/Vol] 0.59 10*3/uL Normal <0.87 [facility] Comment on above: Order Comment: Speci men Type: BLOOD SPECIMENOrdering Facility: [facility] Address: [address] [place] [address] Performed By: #### 5 7021-8, 7 ####[facility] LABIA [id number] [place] [address] [place] Monocytes/100 WBC (Bld) 6.7 % Normal [facility] Comment on above: Order Comment: Speci men Type: BLOOD SPECIMENOrdering Facility: [facility] Address: [address] [place] [address] Performed By: #### 5 7021-8, 7-7 ####[facility] LABIA [id number] [id number] [address] [place] Neutrophils (Bld) [#/Vol] 7.25 10*3/uL Normal 1.45-7.50 [facility] Comment on above: Order Comment: Speci men Type: BLOOD SPECIMENOrdering Facility: [facility] Address: [address] [place] [address] Performed By: #### 5 7021-8, 7-7 ####[facility] LABCLIA [id number] [place] [address] [place] Neutrophils/100 WBC (Bld) 82.1 % Normal [facility] Comment on above: Order Comment: Speci men Type: BLOOD SPECIMENOrdering Facility: [facility] Address: [address] [place] [address] Performed By: #### 5 7021-8, 4536-7 ####[facility] LABCLIA [id number] [place] [address] [place] Nucleated RBC (Bld) [#/Vol] 10*3/uL Normal <0.01 [facility] Comment on above: Order Comment: Speci men Type: BLOOD SPECIMENOrdering Facility: [facility] Address: [address] [place] [address] Performed By: #### 5 7021-8, 4536-7 ####[facility] LABCLIA [id number] [place] [address] [place] Nucleated RBC/100 WBC (Bld) [Ratio] 0.0 /100 WBC Normal [facility] Comment on above: Order Comment: Speci men Type: BLOOD SPECIMENOrdering Facility: [facility] Address: [address] [place] [address] Performed By: #### 5 7021-8, 4536-7 ####[facility] LABCLIA [id number] [place] [address] [place] Platelet mean volume (Bld) [Entitic vol] 11.4 fL Normal 9.0-12.7 [facility] Comment on above: Order Comment: Speci men Type: BLOOD SPECIMENOrdering Facility: [facility] Address: [address] [place] [address] Performed By: #### 5 7021-8, 4537-7 ####[facility] LABCLIA [id number] [place] [address] [place] Platelets (Bld) [#/Vol] 219 10*3/uL Normal 150-400 [facility] Comment on above: Order Comment: Speci men Type: BLOOD SPECIMENOrdering Facility: [facility] Address: [address] [place] [address] Performed By: #### 5 7021-8, 4537-7 ####[facility] LABIA [id number] [place] [address] [place] RBC (Bld) [#/Vol] 4.09 10*6/uL Normal 3.90-5.20 [facility] Comment on above: Order Comment: Speci men Type: BLOOD SPECIMENOrdering Facility: [facility] Address: [address] [place] [address] Performed By: #### 5 7021-8, 4537-7 ####[facility] LABIA [id number] [place] [address] [place] WBC (Bld) [#/Vol] 8.83 10*3/uL Normal 3.70-11.00 [facility] Comment on above: Order Comment: Speci men Type: BLOOD SPECIMENOrdering Facility: [facility] Address: [address] [place] [address] Performed By: #### 5 7021-8, 4537-7 ####[facility] LABIA [id number] [place] [address] [place] CK SerPl-cCncon 08-13-2024 CK [Catalytic activity/Vol] 25 U/L Low 42-196 [facility] Comment on above: Order Comment: Speci men Type: BLOOD SPECIMENOrdering Facility: [facility] Address: [address] [place] [address] Performed By: #### 2 157-6, 49366-4, 3016-3 ####[facility] LABCLIA [id number] [address] [address] [place] CRP SerPl-mCncon 08-13-2024 CRP [Mass/Vol] 0.5 mg/dL Normal <0.9 [facility] Comment on above: Order Comment: Speci men Type: BLOOD SPECIMENOrdering Facility: [facility] Address: [address] [place] [address] Performed By: #### 1 988-5, 31510-1, T4FTI, 37267-1 ####[facility] LABCLIA [id number] [place] [address] [place] Comprehensive metabolic 2000 panelon 08-13-2024 Albumin [Mass/Vol] 3.9 g/dL Normal 3.9-4.9 [facility] Comment on above: Order Comment: Speci men Type: BLOOD SPECIMENOrdering Facility: [facility] Address: [address] [place] [address] Performed By: #### 1 988-5, 81476-3, T4FTI, 02301-4 ####[facility] LABCLIA [id number] [place] [address] [place] ALP [Catalytic activity/Vol] 76 U/L Normal 34-123 [facility] Comment on above: Order Comment: Speci men Type: BLOOD SPECIMENOrdering Facility: [facility] Address: [address] [place] [address] Performed By: #### 1 988-5, 84490-7, T4FTI, 38984-2 ####[facility] LABCLIA [id number] [place] [id number] [place] ALT [Catalytic activity/Vol] 11 U/L Normal 7-38 [facility] Comment on above: Order Comment: Speci men Type: BLOOD SPECIMENOrdering Facility: [facility] Address: [address] [place] [id number] Performed By: #### 1 988-5, 84155-8, T4FTI, ####[facility] LABCLIA [id number] [address] [address] [place] Anion gap [Moles/Vol] 12 mmol/L Normal 8-15 [facility] Comment on above: Order Comment: Speci men Type: BLOOD SPECIMENOrdering Facility: [facility] Address: [address] [place] [id number] Performed By: #### 1 988-5, 10633-1, T4FT, ####[facility] LABIA [id number] [place] [address] [place] AST [Catalytic activity/Vol] 16 U/L Normal 13-35 [facility] Comment on above: Order Comment: Speci men Type: BLOOD SPECIMENOrdering Facility: [facility] Address: [address] [place] [id number] Performed By: #### 1 988-5, 57255-2, T4FTI, ####[facility] LABCLIA [id number] [place] [address] [place] Bilirubin [Mass/Vol] 0.4 mg/dL Normal 0.2-1.3 [facility] Comment on above: Order Comment: Speci men Type: BLOOD SPECIMENOrdering Facility: [facility] Address: [address] [place] [id number] Performed By: #### 1 988-5, 61398-5, T4FTI, ####[facility] LABCLIA [id number] [address] [address] [place] Calcium [Mass/Vol] 9.9 mg/dL Normal 8.5-10.2 [facility] Comment on above: Order Comment: Speci men Type: BLOOD SPECIMENOrdering Facility: [facility] Address: [address] [place] [id number] Performed By: #### 1 988-5, 58215-2, T4FTI, ####[facility] LABCLIA [id number] [address] [address] [place] Chloride [Moles/Vol] 106 mmol/L Normal 98-107 [facility] Comment on above: Order Comment: Speci men Type: BLOOD SPECIMENOrdering Facility: [facility] Address: [address] [place] [address] Performed By: #### 1 988-5, 61686-5, T4FT, ####[facility] LABCLIA [id number] [place] [address] [place] CO2 [Moles/Vol] 23 mmol/L Normal 22-30 [facility] Comment on above: Order Comment: Speci men Type: BLOOD SPECIMENOrdering Facility: [facility] Address: [address] [place] [address] Performed By: #### 1 988-5, 91079-2, T4FT, ####[facility] LABCLIA [id number] [place] [address] [place] Creatinine [Mass/Vol] 1.38 mg/dL High 0.58-0.96 [facility] Comment on above: Order Comment: Speci men Type: BLOOD SPECIMENOrdering Facility: [facility] Address: [address] [id number] Performed By: #### 1 988-5, 18813-9, T4FTI, ####[facility] LABCLIA [id number] [place] [address] [place] Creatinine and Glomerular filtration rate.predicted panel (S/P/Bld) 40 mL/min/1.73m??? Low >=60 [facility] Comment on above: Order Comment: Lisa baptiste Type: BLOOD SPECIMENOrdering Facility: [facility] Address: [address] [place] [address] Result Comment: Nicole mated Glomerular Filtration Rate [...] accurately reflect actual GFR. Performed By: #### 1 988-5, 65945-7, T4FT, 63021-1 ####[facility] LABCLIA [id number] [place] [address] [place] Glucose [Mass/Vol] 117 mg/dL High 74-99 [facility] Comment on above: Order Comment: Lisa baptiste Type: BLOOD SPECIMENOrdering Facility: [facility] Address: [address] [place] [address] Result Comment: The [place] Diabetes Association (ADA) provides guidance for cutoff [...] Standards of Medical Care in Diabetes 2016, [place] Diabetes Association. Diabetes Care. 2016.39(Suppl 1). Performed By: #### 1 988-5, 09568-1, T4FTI, 40627-5 ####[facility] LABCLIA [id number] [place] [address] [place] Potassium [Moles/Vol] 4.4 mmol/L Normal 3.7-5.1 [facility] Comment on above: Order Comment: Speci men Type: BLOOD SPECIMENOrdering Facility: [facility] Address: [address] [place] [address] Performed By: #### 1 988-5, 01420-5, T4FTI, ####[facility] LABIA [id number] [address] [address] [place] Protein [Mass/Vol] 7.1 g/dL Normal 6.3-8.0 [facility] Comment on above: Order Comment: Speci men Type: BLOOD SPECIMENOrdering Facility: [facility] Address: [address] [place] [address] Performed By: #### 1 988-5, 25746-6, T4FT, ####[facility] [id number] [place] [address] [place] Sodium [Moles/Vol] 141 mmol/L Normal 136-144 [facility] Comment on above: Order Comment: Speci men Type: BLOOD SPECIMENOrdering Facility: [facility] Address: [address] [place] [address] Performed By: #### 1 988-5, 21620-2, T4FT, ####[facility] [id number] [place] [address] [place] Urea nitrogen [Mass/Vol] 24 mg/dL High 7-21 [facility] Comment on above: Order Comment: Speci men Type: BLOOD SPECIMENOrdering Facility: [facility] Address: [address] [place] [address] Performed By: #### 1 988-5, 38029-7, T4FT, ####[facility] LABIA [id number] [place] [id number] [place] ESR Westergren method (Bld) [Velocity]on 08-13-2024 ESR (Bld) [Velocity] 52 mm/h High 0-20 [facility] Comment on above: Order Comment: Speci men Type: BLOOD SPECIMENOrdering Facility: [facility] Address: [address] [place] [address] Performed By: #### 5 7021-8, 4537-7 ####[facility] LABCLIA [id number] [place] [address] [place] Lipid 1996 panelon 4 Cholesterol [Mass/Vol] 122 mg/dL Normal <200 [facility] Comment on above: Order Comment: Speci men Type: BLOOD SPECIMENOrdering Facility: [facility] Address: [address] [place] [address] Result Comment: <200 mg/dL, Desirable 200-239 mg/dL, Borderline high>239 mg/dL, High Performed By: #### 1 988-5, 20124-7, T4FTI, 79310-6 ####[facility] LABCLIA [id number] [address] [place] Cholesterol in HDL [Mass/Vol] 41 mg/dL Normal >39 [facility] Comment on above: Order Comment: Speci men Type: BLOOD SPECIMENOrdering Facility: [facility] Address: [address] [place] [address] Result Comment: 40-5 9 mg/dL, Acceptable>59 mg/dL, High: Negative risk factor for coronary heart disease<40 mg/dL, Low: Positive risk factor for coronary heart disease Performed By: #### 1 988-5, 75915-3, T4FTI, 54630-7 ####[facility] LABCLIA [id number] [address] [place] Cholesterol in LDL [Mass/Vol] 64 mg/dL Normal <100 [facility] Comment on above: Order Comment: Speci men Type: BLOOD SPECIMENOrdering Facility: [facility] Address: [address] [place] [address] Result Comment: <100 mg/dL, Optimal 100-129 mg/dL, Near optimal/above optimal 130-159 mg/dL, Borderline high 160-189 mg/dL, High>189 mg/dL, Very highSecondary prevention optimal LDL Cholesterol levels are recommended to be < 70 mg/dL Performed By: #### 1 988-5, 39423-0, T4FTI, 08783-5 ####[facility] LABCLIA [id number] [address] [address] [place] Cholesterol in LDL/Cholesterol in HDL [Mass ratio] 1.56 {ratio} Normal <2.54 [facility] Comment on above: Order Comment: Speci men Type: BLOOD SPECIMENOrdering Facility: [facility] Address: [address] [place] [address] Result Comment: Refe donald:1. National Cholesterol Education Program ATP III Guideline At-A-Glance Quick Desk Reference: National Heart, Lung, and Blood [place]. National Institutes of Health. 2001: NIH Publication No. 01-3305.2. An International Atherosclerosis Society position paper: global recommendations for the management of dyslipidemia: executive summary, Atherosclerosis. 2014: 232(2):410-413. Performed By: #### 1 988-5, 45587-9, T4FTI, ####[facility] LABCLIA [id number] [place] [address] [place] Cholesterol in VLDL [Mass/Vol] 17 mg/dL Normal <30 [facility] Comment on above: Order Comment: Speci men Type: BLOOD SPECIMENOrdering Facility: [facility] Address: [address] [place] [address] Performed By: #### 1 988-5, 61585-5, T4FT, 74998-0 ####[facility] LABCLIA [id number] [place] [address] [place] Cholesterol non HDL [Mass/Vol] 81 mg/dL Normal <130 [facility] Comment on above: Order Comment: Speci men Type: BLOOD SPECIMENOrdering Facility: [facility] Address: [address], [place] [address] Result Comment: <130 mg/dL, Optimal 130-159 mg/dL, Near optimal/above optimal 160-189 mg/dL, Borderline high 190-219 mg/dL, High>219 mg/dL, Very highSecondary prevention optimal non HDL Cholesterol levels are recommended to be <100 mg/dL Performed By: #### 1 988-5, 65303-3, T4FTI, 73831-1 ####[facility] LABCLIA [id number] [place] [address] [place] Cholesterol.total/Cho lesterol in HDL [Mass ratio] 2.98 {ratio} Normal <5.10 [facility] Comment on above: Order Comment: Speci men Type: BLOOD SPECIMENOrdering Facility: [facility] Address: [address] [place] [address] Performed By: #### 1 988-5, 49427-8, T4FTI, ####[facility] LABCLIA [id number] [place] [address] [place] FASTING TIME 12 hrs Normal [facility] Comment on above: Order Comment: Speci men Type: BLOOD SPECIMENOrdering Facility: [facility] Address: [address] [place] [address] Performed By: #### 1 988-5, 67907-5, T4FT, ####[facility] LABCLIA [id number] [place] [address] [place] Triglyceride [Mass/Vol] 85 mg/dL Normal <150 [facility] Comment on above: Order Comment: Speci men Type: BLOOD SPECIMENOrdering Facility: [facility] Address: [address] [place] [address] Result Comment: <150 mg/dL, Normal 150-199 mg/dL, Borderline high 200-499 mg/dL, High>499 mg/dL, Very high Performed By: #### 1 988-5, 60250-9, T4FTI, 50341-5 ####[facility] LABCLIA [id number] [address] [address] [place] Magnesium SerPl-mCncon 08-13 Magnesium [Mass/Vol] 2.1 mg/dL Normal 1.7-2.3 [facility] Comment on above: Order Comment: Speci men Type: BLOOD SPECIMENOrdering Facility: [facility] Address: [address] [place] [address] Performed By: #### 2 157-6, 92507-9, 3016-3 ####[facility] LABIA [id number] [place] [id number] [place] T4/FTI/T4Uon 08-13-2024 FTI 7.5 ug/dL Normal 5.3-10.8 [facility] Comment on above: Order Comment: Speci men Type: BLOOD SPECIMENOrdering Facility: [facility] Address: [address] [place] [address] Performed By: #### 1 988-5, 79383-6, T4FTI, 76785-9 ####[facility] LABIA [id number] [place] [address] [place] T4 [Mass/Vol] 7.3 ug/dL Normal 5.5-10.2 [facility] Comment on above: Order Comment: Speci men Type: BLOOD SPECIMENOrdering Facility: [facility] Address: [address] [place] [address] Performed By: #### 1 988-5, 60047-8, T4FTI, 40193-2 ####[facility] LABIA [id number] [place] [id number] [place] T4 uptake [Mass/Vol] 0.97 Normal 0.91-1.19 [facility] Comment on above: Order Comment: Speci men Type: BLOOD SPECIMENOrdering Facility: [facility] Address: [address] [place] [address] Performed By: #### 1 988-5, 76317-2, T4FTI, 15177-9 ####[facility] LABCLIA [id number] [place] [address] [place] TSH SerPl-aCncon 08-13-2024 TSH Qn 1.970 m[IU]/L Normal 0.270-4.200 [facility] Comment on above: Order Comment: Speci men Type: BLOOD SPECIMENOrdering Facility: [facility] Address: [address] [place] [address] Performed By: #### 2 157-6, 65612-0, 3016-3 ####[facility] LABCLIA [id number] [place] [address] [place] CNOVon 08-12-2024 CNOV Normal [facility] CNPNon 08-10-2024 CNPN Normal [facility] CNOVon 08-09-2024 CNOV Normal [facility] XR DIGIT 3V FRONTAL/LAT/OBL RTon 08-09-2024 XR DIGIT 3V FRONTAL/LAT/OBL RT Normal [facility] XR Finger - right AP and Lat eral and obliqueon 08-09-2024 Radiology Study observation (narrative) [facility] IMPRESSION: No acute osseous abnormality. Right first carpometacarpal degenerative disease. Consumer Credit Counselor: MARTHA Transcribe Date/Time: Aug 09 2024 1:34P Dictated by : SHEREE ROBERT MD This examination was interpreted and the report reviewed and electronically signed by: SHEREE ROBERT MD on Aug 09 2024 1:37PM [facility] DIVISION OF RADIOLOGY * * *Final Report* [...] radiodense foreign body. DIVISION OF RADIOLOGY Provider, Angelia Shala [facility] - 08/09/2024 * * *Final Report* * [...] osseous abnormality. Right first carpometacarpal degenerative disease. Consumer Credit Counselor: MARTHA Transcribe Date/Time: Aug 09 2024 1:34P Dictated by : SHEREE ROBERT MD This examination was interpreted and the report reviewed and electronically signed by: SHEREE ROBERT MD on Aug 09 2024 1:37PM [facility] XR Finger - right AP and Lat eral and obliqueOrdered By: Ccf Provider on 08-09-2024 [facility] CNOVon 07-26-2024 CNOV [facility] CNOVon 07-25-2024 CNOV Normal [facility] [id number] 07-25-2024 ECG01 Normal [facility] CNOVon 07-18-2024 CNOV Normal [facility] CNPNon 07-14-2024 CNPN Normal [facility] CNPNon 07-07-2024 CNPN Normal [facility] XR Ankle - right AP and Late ral and obliqueon 06-08-2024 IMPRESSION: Soft tis jac swelling along the lateral malleolus. No definite acute fractures identified. Patient can be reevaluated in 10-14 days if symptoms persist. Consumer Credit Counselor: PSCB Transcribe Date/Time: Jun 08 2024 4:28P Dictated by : MISBAH LENTZ MD This examination was interpreted and the report reviewed and electronically signed by: MISBAH LENTZ MD on Jun 08 2024 4:30PM [facility] DIVISION OF RADIOLOGY * * *Final Report* [...] the lateral malleolus. DIVISION OF RADIOLOGY Provider, Juanis [facility] - 06/08/2024 * * *Final Report* [...] reevaluated in 10-14 days if symptoms persist. Consumer Credit Counselor: PSCB Transcribe Date/Time: Jun 08 2024 4:28P Dictated by : MISBAH LENTZ MD This examination was interpreted and the report reviewed and electronically signed by: MISBAH LENTZ MD on Jun 08 2024 4:30PM EST [facility] Radiology Study observation (narrative) [facility] XR Ankle - right AP and Late ral and obliqueOrdered By: Ccf Provider on 06-08-2024 [facility] UA DIP, URINE (POC)on 2023 BILIRUBIN UA (POCT) Small Abnormal Negative [facility] CLARITY UA (POCT) Clear [facility] COLOR UA (POCT) Yellow [facility] GLUCOSE UA (POCT) Negative Negative mg/dL [facility] Hemoglobin Ql (U) Large Abnormal Negative [facility] KETONE UA (POCT) Negative Negative mg/dL [facility] LEUKOCYTES UA (POCT) Negative Negative [facility] NITRITE UA (POCT) Negative Negative [facility] PH UA (POCT) 5.5 4.5 - 8.0 [facility] Protein Ql (U) 100 mg/dL Abnormal Negative mg/dL [facility] SPECIFIC GRAVITY UA (POCT) 1.015 1.005 - 1.030 [facility] UROBILINOGEN UA (POCT) 0.2 E.U./dL Normal E.U./dL [facility] XR Chest PA and Lateralon IMPRESSION: Stable chronic changes on the left. Consumer Credit Counselor: MARTHA Transcribe Date/Time: Jan 20 2024 4:18P Dictated by : LOGAN KIRBY MD This examination was interpreted and the report reviewed and electronically signed by: LOGAN KIRBY MD on Jan 20 2024 4:21PM [facility] DIVISION OF RADIOLOGY * * *Final Report* [...] throughout the spine. DIVISION OF RADIOLOGY Provider, [facility] Shala [facility] - 01/20/2024 * * *Final Report* [...] IMPRESSION: Stable chronic changes on the left. Consumer Credit Counselor: MARTHA Transcribe Date/Time: Jan 20 2024 4:18P Dictated by : LOGAN KIRBY MD This examination was interpreted and the report reviewed and electronically signed by: LOGAN KIRBY MD on Jan 20 2024 4:21PM [facility] Radiology Study observation (narrative) [facility] XR Chest PA and LateralOrder ed By: Ccf Provider on 01-20-[address] [facility] [address] UROGRAM WO/W IVCONon 11-1 [facility] Jay 08-26-2023 POLI Telephone (AKURFL) TERRI BURCIAGA ([id number]) 1945 [place]* Date Time Provider Department 08/26/23 ANITRA JUAREZ During your visit today, we recorded the following information about you: Venessa Willams 08/26/2023 1:41 PM Signed FYI: Pt scheduled for cysto in [facility] for microscopic hematuria. CT prior 09/16. Ref by Porfirio Johnson. She saw Dr. Alvarez in 2021, but she wanted in sooner in [facility]. Adali, Therese Allergies As of Date: 08/26/2023 Noted [...] mouth three times daily as needed. - [id number] 1 mg-25 mg-12.5 mg-1 mg tab [...] *03/24/2018 Punc (more content not included)... Normal [facility] UA DIP, URINE (POC)on 2022 BILIRUBIN UA (POCT) Negative Negative [facility] CLARITY UA (POCT) Clear [facility] COLOR UA (POCT) Light yellow [facility] GLUCOSE UA (POCT) Negative Negative mg/dL [facility] Hemoglobin Ql (U) Moderate Abnormal Negative [facility] KETONE UA (POCT) Negative Negative mg/dL [facility] LEUKOCYTES UA (POCT) Negative Negative [facility] NITRITE UA (POCT) Negative Negative [facility] PH UA (POCT) 7.0 4.5 - 8.0 [facility] Protein Ql (U) 30 mg/dL Abnormal Negative mg/dL [facility] SPECIFIC GRAVITY UA (POCT) 1.010 1.005 - 1.030 [facility] UROBILINOGEN UA (POCT) 0.2 E.U./dL Normal E.U./dL [facility] US ABD RIGHT UPPER QUADRANTo n 08-19-2023 [facility] Comprehensive metabolic 2000 panelon 08-18-2023 Albumin [Mass/Vol] 4.1 g/dL 3.9 - 4.9 g/dL [facility] ALP [Catalytic activity/Vol] 82 U/L 34 - 123 U/L [facility] ALT [Catalytic activity/Vol] 11 U/L 7 - 38 U/L [facility] Anion gap [Moles/Vol] 12 mmol/L 9 - 18 mmol/L [facility] AST [Catalytic activity/Vol] 17 U/L 13 - 35 U/L [facility] Bilirubin [Mass/Vol] 0.4 mg/dL 0.2 - 1 .3 mg/dL [facility] Calcium [Mass/Vol] 9.8 mg/dL 8.5 - 10. 2 mg/dL [facility] Chloride [Moles/Vol] 103 mmol/L 97 - 10 5 mmol/L [facility] CO2 [Moles/Vol] 25 mmol/L 22 - 30 mmol/L [facility] Creatinine [Mass/Vol] 1.17 mg/dL High 0.58 - 0.96 mg/dL [facility] Estimated Glomerular Filtration Rate 48 mL/min/1.73m Low >=60 mL/min/1.73 m [facility] Glucose [Mass/Vol] 98 mg/dL 74 - 99 mg/dL [facility] Potassium [Moles/Vol] 4.4 mmol/L 3.7 - 5.1 mmol/L [facility] Protein [Mass/Vol] 7.3 g/dL 6.3 - 8.0 g/dL [facility] Sodium [Moles/Vol] 140 mmol/L 136 - 144 mmol/L [facility] Urea nitrogen [Mass/Vol] 16 mg/dL 7 - 21 mg/dL [facility] LIPASE BLDon 08-18-2023 Lipase [Catalytic activity/Vol] 48 U/L 16 - 61 U/L [facility] CBC W Auto Differential pane l (Bld)on 08-17-2023 Basophils (Bld) [#/Vol] 0.03 10*3/uL <0.11 k/uL [facility] Basophils/100 WBC (Bld) 0.4 % [facility] Differential cell count method Nom (Bld) Auto [facility] Eosinophils (Bld) [#/Vol] 0.03 10*3/uL <0.46 k/uL [facility] Eosinophils/100 WBC (Bld) 0.4 % [facility] Erythrocyte distribution width (RBC) [Ratio] 13.2 % 11.5 - 15.0 % [facility] Hematocrit (Bld) [Volume fraction] 45.7 % 36.0 - 46.0 % [facility] Hemoglobin (Bld) [Mass/Vol] 14.6 g/dL 11.5 - 15.5 g/dL [facility] Immature granulocytes (Bld) [#/Vol] <0.10 k/uL [facility] Immature granulocytes/100 WBC (Bld) 0.3 % [facility] Lymphocytes (Bld) [#/Vol] 1.72 10*3/uL 1.00 - 4.00 k/uL [facility] Lymphocytes/100 WBC (Bld) 24.7 % [facility] MCH (RBC) [Entitic mass] 28.7 pg 26.0 - 34.0 pg [facility] MCHC (RBC) [Mass/Vol] 31.9 g/dL 30.5 - 36.0 g/dL [facility] MCV (RBC) [Entitic vol] 89.8 fL 80.0 - 100.0 fL [facility] Monocytes (Bld) [#/Vol] 0.70 10*3/uL <0.87 k/uL [facility] Monocytes/100 WBC (Bld) 10.1 % [facility] Neutrophils (Bld) [#/Vol] 4.45 10*3/uL 1.45 - 7.50 k/uL [facility] Neutrophils/100 WBC (Bld) 64.1 % [facility] Nucleated RBC (Bld) [#/Vol] <0.01 k/uL [facility] Nucleated RBC/100 WBC (Bld) [Ratio] 0.0 /100 WBC [facility] Platelet mean volume (Bld) [Entitic vol] 10.9 fL 9.0 - 12.7 fL [facility] Platelets (Bld) [#/Vol] 210 10*3/uL 150 - 400 k/uL [facility] RBC (Bld) [#/Vol] 5.09 10*6/uL 3.90 - 5.2 0 m/uL [facility] WBC (Bld) [#/Vol] 6.95 10*3/uL 3.70 - 11.00 k/uL [facility] ESR Westergren method (Bld) [Velocity]on 10-09-2023 ESR (Bld) [Velocity] 31 mm/h High 0 - 20 mm/hr [facility] UA DIP, URINE (POC)on 2022 BILIRUBIN UA (POCT) Negative Negative [facility] CLARITY UA (POCT) Slightly Cloudy Cl [facility] COLOR UA (POCT) Yellow [facility] GLUCOSE UA (POCT) Negative Negative mg/dL [facility] Hemoglobin Ql (U) Large Abnormal Negative [facility] KETONE UA (POCT) Negative Negative mg/dL [facility] LEUKOCYTES UA (POCT) Negative Negative [facility] NITRITE UA (POCT) Negative Negative [facility] PH UA (POCT) 7.5 4.5 - 8.0 [facility] Protein Ql (U) 100 mg/dL Abnormal Negative mg/dL [facility] SPECIFIC GRAVITY UA (POCT) 1.020 1.005 - 1.030 [facility] UROBILINOGEN UA (POCT) 0.2 E.U./dL Normal E.U./dL [facility] UA DIP, URINE (POC)on 2022 BILIRUBIN UA (POCT) Negative Negative [facility] CLARITY UA (POCT) Clear [facility] COLOR UA (POCT) Yellow [facility] GLUCOSE UA (POCT) Negative Negative mg/dL [facility] Hemoglobin Ql (U) Large Abnormal Negative [facility] KETONE UA (POCT) Negative Negative mg/dL [facility] LEUKOCYTES UA (POCT) Trace Abnormal Negative [facility] NITRITE UA (POCT) Negative Negative [facility] PH UA (POCT) 6.5 4.5 - 8.0 [facility] Protein Ql (U) 30 mg/dL Abnormal Negative mg/dL [facility] SPECIFIC GRAVITY UA (POCT) 1.010 1.005 - 1.030 [facility] UROBILINOGEN UA (POCT) 0.2 E.U./dL Normal E.U./dL [facility] CT CHEST WO IVCONon 07-03-20 23 [facility] Basic metabolic 2000 panelon 06-17-2023 Anion gap [Moles/Vol] 11 mmol/L 9 - 18 mmol/L [facility] Calcium [Mass/Vol] 9.5 mg/dL 8.5 - 10. 2 mg/dL [facility] Chloride [Moles/Vol] 106 mmol/L High 97 - 10 5 mmol/L [facility] CO2 [Moles/Vol] 23 mmol/L 22 - 30 mmol/L [facility] Creatinine [Mass/Vol] 1.09 mg/dL High 0.58 - 0.96 mg/dL [facility] Estimated Glomerular Filtration Rate 53 mL/min/1.73m Low >=60 mL/min/1.73 m [facility] Glucose [Mass/Vol] 98 mg/dL 74 - 99 mg/dL [facility] Potassium [Moles/Vol] 4.5 mmol/L 3.7 - 5.1 mmol/L [facility] Sodium [Moles/Vol] 140 mmol/L 136 - 144 mmol/L [facility] Urea nitrogen [Mass/Vol] 15 mg/dL 7 - 21 mg/dL [facility] XR Chest PA and Lateralon IMPRESSION: Overall findings unchanged. Consumer Credit Counselor: MARTHA Transcribe Date/Time: Jun 10 2023 4:14P Dictated by : MISBAH LENTZ MD This examination was interpreted and the report reviewed and electronically signed by: MISBAH LENTZ MD on Jun 10 2023 4:16PM [facility] DIVISION OF RADIOLOGY * * *Final Report* [...] shows interval changes. DIVISION OF RADIOLOGY Provider, [facility] Shala [facility] - 06/10/2023 * * *Final Report* * [...] interval changes. IMPRESSION IMPRESSION: Overall findings unchanged. Consumer Credit Counselor: MARTHA Transcribe Date/Time: Jun 10 2023 4:14P Dictated by : MISBAH LENTZ MD This examination was interpreted and the report reviewed and electronically signed by: MISBAH LENTZ MD on Jun 10 2023 4:16PM EST [facility] XR Chest PA and LateralOrder ed By: Ccf Provider on 06-10-2023 [facility] XR Chest PA and Lateralon Radiology Study observation (narrative) [facility] XR HIP GENERAL 3V PELV/AP/LA T RIGHTon 01-07-2023 [facility] TERRI BURCIAGA ([id number]) 1945 [place]* Date Time Provider Department 10/24/22 DAISHA JUNIOR AGSPINE3 During your visit today, we recorded the following information about you: Don Borges 10/24/2022 8:54 AM Signed Sent in consult to physical therapy, confirmation number is [id number] Allergies As of Date: 10/24/2022 Noted Allergy [...] Upset Date Reviewed: 10/23/2022 Reviewed by: Daisha Junior APRN.INTELLIGENCE CHIEF - Fully Assessed Reason for Visit: Patient Update [1234] Cmt: Consult Prescriptions as of 10/24/2022 - traMADol (ULTRAM) 100 mg tablet Take 1 tablet by mouth every 6 hours as needed for pain for up to 60 days. - [id number] 0 1 mg-25 mg-12.5 mg-1 mg tab [...] Encounter Status:Closed by DON BORGES on 10/24/22 [facility] CNOVon 10-23-2022 CNOV Office Visit (SPAGWO ) TERRI BURCIAGA ([id number]) 1945 [place] Date Time Provider Department 10/23/22 2:00 PM DAISHA JUNIOR NESSGWGilles During your visit today, we recorded the following information about you: Pulse Respiration Normal [facility] UA DIP, URINE (POC)on 2021 BILIRUBIN UA (POCT) Negative Negative [facility] CLARITY UA (POCT) Clear [facility] COLOR UA (POCT) Yellow [facility] GLUCOSE UA (POCT) Negative Negative mg/dL [facility] HEMOGLOBIN/BLOOD UA (POCT) Moderate Abnormal Negative [facility] KETONE UA (POCT) Negative Negative mg/dL [facility] LEUKOCYTES UA (POCT) Negative Negative [facility] NITRITE UA (POCT) Negative Negative [facility] PH UA (POCT) 7.0 4.5 - 8.0 [facility] Protein Ql (U) Negative Negative mg/dL [facility] SPECIFIC GRAVITY UA (POCT) 1.020 1.005 - 1.030 [facility] UROBILINOGEN UA (POCT) 0.2 E.U./dL Normal E.U./dL [facility] URINE CULTUREon 09-10-2022 Bacteria identified Cx Nom (U) 10,000 -<50,000 CFU/ml Normal urogenital rolando [facility] Urinalysis complete panel (U )on 09-10-2022 Bilirubin Ql (U) Negative Negative [facility] Clarity (Unsp spec) Clear Clear [facility] Color (U) Colorless Yellow [facility] Glucose Test strip (U) [Mass/Vol] Negative Negative [facility] Hemoglobin Ql (U) 2+ Abnormal Negative [facility] Ketones Ql (U) Negative Negative [facility] Leukocyte esterase Test strip Ql (U) Negative Negative [facility] Nitrite Ql (U) Negative Negative [facility] pH (U) 6.5 [pH] 5.0 - 8.0 [facility] Protein (U) [Mass/Vol] Negative Negative [facility] RBC LM.HPF (Urine sed) [#/Area] 0-3 /HPF 0-3 /HPF [facility] Specific gravity (U) [Rel density] 1.005 1.005 - 1.030 [facility] Urobilinogen Ql (U) Negative Negative [facility] WBC LM.HPF (Urine sed) [#/Area] 0-5 /HPF 0-5 /HPF [facility] MRI LUMBAR SPINE WO IVCONon 09-05-2022 [facility] UA DIP, URINE (POC)on 2021 BILIRUBIN UA (POCT) Moderate Abnormal Negative [facility] CLARITY UA (POCT) Clear [facility] COLOR UA (POCT) Yellow [facility] GLUCOSE UA (POCT) Negative Negative mg/dL [facility] HEMOGLOBIN/BLOOD UA (POCT) Large Abnormal Negative [facility] KETONE UA (POCT) 15 mg/dL Abnormal Negative mg/dL [facility] LEUKOCYTES UA (POCT) [facility] NITRITE UA (POCT) Negative Negative [facility] PH UA (POCT) 6.0 4.5 - 8.0 [facility] Protein Ql (U) 100 mg/dL Abnormal Negative mg/dL [facility] SPECIFIC GRAVITY UA (POCT) >=1.030 1.005 - 1.030 [facility] UROBILINOGEN UA (POCT) 0.2 E.U./dL Normal E.U./dL [facility] XR CHEST 2V FRONTAL/LATon [facility] XR LUMBAR GENERAL 3V AP/LAT/ L5-S1on 08-26-2022 [facility] US PELVIS BLADDERon 08-15-20 [facility] UA DIP, URINE (POC)on 2021 BILIRUBIN UA (POCT) Negative Negative [facility] CLARITY UA (POCT) Clear [facility] COLOR UA (POCT) Yellow [facility] GLUCOSE UA (POCT) Negative Negative mg/dL [facility] HEMOGLOBIN/BLOOD UA (POCT) Moderate Abnormal Negative [facility] KETONE UA (POCT) Negative Negative mg/dL [facility] LEUKOCYTES UA (POCT) Negative Negative [facility] NITRITE UA (POCT) Negative Negative [facility] PH UA (POCT) 7.0 4.5 - 8.0 [facility] Protein Ql (U) Negative Negative mg/dL [facility] SPECIFIC GRAVITY UA (POCT) 1.010 1.005 - 1.030 [facility] UROBILINOGEN UA (POCT) 0.2 E.U./dL Normal E.U./dL [facility] No Panel Informationon 07-07 IMPRESSION: Radiographic findings suggest degenerative osteoarthritis, left greater than right. Consumer Credit Counselor: MARTHA Transcribe Date/Time: Jul 07 2022 4:24P Dictated by : DILLAN MENDES MD This examination was interpreted and the report reviewed and electronically signed by: DILLAN MENDES MD on Jul 07 2022 4:26PM [facility] DIVISION OF RADIOLOGY Radiology Study observation (narrative) [facility] No Panel InformationOrdered By: Ccf Provider on 07-07-2022 [facility] XR Finger - left AP and [...] DIGIT 3V FRONTAL/LAT/OBL RT Laterality: LEFT (accession [id number]), RIGHT (accession [id number]) Number of different views (projections): 3 M: XB_1 COMPARISON: There are no prior relevant examinations available for comparison within the [facility] Imaging Archives. RESULT: AP, oblique and [...] No erosive component. DIVISION OF RADIOLOGY Provider, [facility] Shala [facility] - 07/07/2022 * * *Final Report* [...] DIGIT 3V FRONTAL/LAT/OBL RT Laterality: LEFT (accession [id number]), RIGHT (accession [id number]) Number of different views (projections): 3 M: XB_1 COMPARISON: There are no prior relevant examinations available for comparison within the [facility] Imaging Archives. RESULT: AP, oblique and [...] suggest degenerative osteoarthritis, left greater than right. Consumer Credit Counselor: [facility] Transcribe Date/Time: Jul 07 2022 4:24P Dictated by : DILLAN MENDES MD This examination was interpreted and the report reviewed and electronically signed by: DILLAN MENEDS MD on Jul 07 2022 4:26PM [facility] XR Finger - right AP and Lat [...] DIGIT 3V FRONTAL/LAT/OBL RT Laterality: LEFT (accession [id number]), RIGHT (accession [id number]) Number of different views (projections): 3 M: XB_1 COMPARISON: There are no prior relevant examinations available for comparison within the [facility] Imaging Archives. RESULT: AP, oblique and [...] No erosive component. DIVISION OF RADIOLOGY Provider, [facility] - 07/07/2022 * * *Final Report* [...] DIGIT 3V FRONTAL/LAT/OBL RT Laterality: LEFT (accession [id number]), RIGHT (accession [id number]) Number of different views (projections): 3 M: XB_1 COMPARISON: There are no prior relevant examinations available for comparison within the [facility] Imaging Archives. RESULT: AP, oblique and [...] suggest degenerative osteoarthritis, left greater than right. Consumer Credit Counselor: PSCB Transcribe Date/Time: Jul 07 2022 4:24P Dictated by : DILLAN MENDES MD This examination was interpreted and the report reviewed and electronically signed by: DILLAN MENDES MD on Jul 07 2022 4:26PM [facility] ESR Westergren method (Bld) [Velocity]on 07-02-2022 ESR (Bld) [Velocity] 41 mm/h High 0 - 20 mm/hr [facility] US KIDNEY/BLADDERon 05-01-20 [facility] UA DIP, URINE (POC)on 2021 BILIRUBIN UA (POCT) Negative Negative [facility] CLARITY UA (POCT) Clear [facility] COLOR UA (POCT) Yellow [facility] GLUCOSE UA (POCT) Negative Negative mg/dL [facility] HEMOGLOBIN/BLOOD UA (POCT) Negative Negative [facility] KETONE UA (POCT) Negative Negative mg/dL [facility] LEUKOCYTES UA (POCT) Negative Negative [facility] NITRITE UA (POCT) Negative Negative [facility] PH UA (POCT) 6.5 4.5 - 8.0 [facility] Protein Ql (U) Negative Negative mg/dL [facility] SPECIFIC GRAVITY UA (POCT) 1.010 1.005 - 1.030 [facility] UROBILINOGEN UA (POCT) 0.2 E.U./dL Normal E.U./dL [facility] XR CHEST 2V FRONTAL/LATon [facility] XR Chest PA and Lateralon IMPRESSION: Stable scarring in the left lung base Stable blunting left costophrenic angle due to pleural fluid or pleural thickening. Consumer Credit Counselor: PSCB Transcribe Date/Time: Oct 16 2021 5:36P Dictated by : BRIANNA HAAS MD This examination was interpreted and the report reviewed and electronically signed by: BRIANNA HAAS MD on Oct 16 2021 5:38PM [facility] DIVISION OF RADIOLOGY * * *Final Report* [...] the thoracic spine. DIVISION OF RADIOLOGY Provider, Juanis Last [facility] - 10/16/2021 * * *Final Report* * [...] due to pleural fluid or pleural thickening. Consumer Credit Counselor: MARTHA Transcribe Date/Time: Oct 16 2021 5:36P Dictated by : BRIANNA HAAS MD This examination was interpreted and the report reviewed and electronically signed by: BRIANNA HAAS MD on Oct 16 2021 5:38PM EST [facility] Radiology Study observation (narrative) [facility] XR Chest PA and LateralOrder ed By: Ccf Provider on 10-16-2021 [facility] XR Chest Single viewon 01-09 IMPRESSION: Minimal persistent basal atelectasis on the left. No persistent pneumothorax Consumer Credit Counselor: PSCB Transcribe Date/Time: Jan 09 2021 2:12P Dictated by : LOGAN KIRBY MD This examination was interpreted and the report reviewed and electronically signed by: LOGAN KIRBY MD on Jan 09 2021 2:13PM EST DIVISION OF RADIOLOGY * * *Final [...] Normal cardiomediastinal silhouette. DIVISION OF RADIOLOGY Provider, [facility] - 01/09/2021 * * *Final Report* * [...] atelectasis on the left. No persistent pneumothorax Consumer Credit Counselor: [facility] Transcribe Date/Time: Jan 09 2021 2:12P Dictated by : LOGAN KIRBY MD This examination was interpreted and the report reviewed and electronically signed by: LOGAN KIRBY MD on Jan 09 2021 2:13PM EST [facility] Radiology Study observation (narrative) [facility] XR Chest Single viewOrdered By: Cc Provider on 01-09-2021 [facility] Basic Metabolic Panlon 01-02 Anion gap [Moles/Vol] 8 mmol/L Low 9-18 [facility] Comment on above: Performed By: #### C BC, BMP ####[facility] [id number] [place], [place] [phone] Calcium [Mass/Vol] 9.6 mg/dL Normal 8.5-10.2 [facility] Comment on above: Performed By: #### C BC, BMP ####[facility] [id number] [place] [id number] Chloride [Moles/Vol] 101 mmol/L Normal 97-[address] [facility] Comment on above: Performed By: #### C BC, BMP ####[facility] [id number] [place] [id number] CO2 [Moles/Vol] 29 mmol/L Normal 22-30 [facility] Comment on above: Performed By: #### C BC, BMP ####[facility] [id number] [place] [id number] Creatinine [Mass/Vol] 1.00 mg/dL High 0.58-0.96 [facility] Comment on above: Performed By: #### C ANGELA, BMP ####[facility] [address] [place] [id number] eGFR- Amer. >60 Normal [facility] Comment on above: Performed By: #### C ANGELA, BMP ####[facility] [address] [place] [id number] GFR/1.73 sq M predicted among non-blacks MDRD (S/P/Bld) [Vol rate/Area] 54 . Normal [facility] Comment on above: Result Comment: eGFR [...] GFR. Performed By: #### C BC, BMP ####[facility] [address]dmt[address] [place] [id number] Glucose [Mass/Vol] 98 mg/dL Normal 74-99 [facility] Comment on above: Result Comment: The [place] Diabetes Association (ADA) provides guidance for cutoff [...] Standards of Medical Care in Diabetes 2016, [place] Diabetes Association. Diabetes Care. 2016.39(Suppl 1). Performed By: #### C ANGELA, BMP ####[facility] [address] [place] [address] Potassium [Moles/Vol] 4.6 mmol/L Normal 3.7-5.1 [facility] Comment on above: Performed By: #### C ANGELA, BMP ####[facility] [address] [place] [address] Sodium [Moles/Vol] 138 mmol/L Normal 136-144 [facility] Comment on above: Performed By: #### C ANGELA, BMP ####[facility] [address] [place] [address] Urea nitrogen [Mass/Vol] 20 mg/dL Normal 7-21 [facility] Comment on above: Performed By: #### C ANGELA, BMP ####[facility] [address] [place] [address] CASE MANAGEMon 01-02-2021 CASE MANAGEM HNO ID: [id number] Author: Jaye Madrid (Sw) Service: Care Management Author Type: Electronics Specialist Type: Care Mgt Progress Note Filed: 01/02/2021 [...] 02, 2021 TIME: 4:30 PM PAGER/CONTACT #: [phone] [facility] CBCon 01-02-2021 Absolute nRBC <0.01 Normal <0.01 [facility] Comment on above: Performed By: #### C ANGELA, BMP ####[facility] [address] [place] [address] Erythrocyte distribution width (RBC) [Ratio] 14.0 % Normal 11.5-15.0 [facility] Comment on above: Performed By: #### C ANGELA, BMP ####[facility] [address] [place] [address] Hematocrit (Bld) [Volume fraction] 41.1 % Normal 36.0-46.0 [facility] Comment on above: Performed By: #### C ANGELA, BMP ####[facility] [address] [place] [address] Hemoglobin (Bld) [Mass/Vol] 12.7 g/dL Normal 11.5-15.5 [facility] Comment on above: Performed By: #### C ANGELA, BMP ####[facility] [address] [place] [address] MCH (RBC) [Entitic mass] 27.8 pG Normal 26.0-34.0 [facility] Comment on above: Performed By: #### C ANGELA, BMP ####[facility] [address] [place] [address] MCHC (RBC) [Mass/Vol] 30.9 g/dL Normal 30.5-36.0 [facility] Comment on above: Performed By: #### C ANGELA, BMP ####[facility] [address] [place] [address] MCV (RBC) [Entitic vol] 89.9 fL Normal 80.0-100.0 [facility] Comment on above: Performed By: #### C ANGELA, BMP ####[place] [address] Platelet mean volume (Bld) [Entitic vol] 10.6 fL Normal 9.0-12.7 [facility] Comment on above: Performed By: #### C ANGELA, BMP ####[facility] [address] [place] [address] Platelets (Bld) [#/Vol] 187 10*3/uL Normal 150-400 [facility] Comment on above: Performed By: #### C BC, BMP ####[facility] [address] [place] [phone] RBC (Bld) [#/Vol] 4.57 10*6/uL Normal 3.90-5.20 [facility] Comment on above: Performed By: #### C BC, BMP ####[facility] [address] [place] [phone] WBC (Bld) [#/Vol] 5.29 10*3/uL Normal 3.70-11.00 [facility] Comment on above: Performed By: #### C BC, BMP ####[facility] Psrsirtjfi2752 [address]721[address]5[address] NURSING PROGon 01-02-2021 NURSING PROG HNO ID: [id number] Author: Yvonne (Rn) IVONNE Parr Service: ? Author Type: Registered Nurse Type: Nursing Progress Note Filed: 01/02/2021 5:04 PM Note Text: Nursing Progress Note Patient Name: Terri Burciaga Patient Location: [place] [id number] Daily Note: 1700: Patient discharged in stable condition. Left floor via wheelchair w/family. Discharge paperwork and all personal belongings w/patient. This note was completed by: Yvonne Parr RN [facility] PLAN OF CAREon 01-02-2021 PLAN OF CARE HNO ID: [id number] Author: Lexie Hoffman (Business Operations Manager) Service: Pharmacy Author Type: ? Type: Plan of Care Filed: 01/02/2021 4:51 PM Note Text: PHARMACY BEDSIDE DELIVERY SERVICE Patient Name: Terri Burciaga The marked outpatient medications were Filled at: [facility] and delivered to the patient's bedside to [facility] Medication List START taking these medications HYDROcodone-acetaminophen [...] or your Primary Care Provider. Lexie Hoffman (Business Operations Manager) PAGER: [phone] January 02, 2021 4:[address] [facility] HEALTH 01-01-2021 ALLIED HEALTH HNO ID: [id number] Author: Coni rCamer) HARMONY Varma Service: ? Author Type: Clinical Stoneworker Type: Allied Health Filed: 01/01/2021 5:40 AM [...] Landers January 01, 2021 5:40 AM Normal [facility] Basic Metabolic Panlon 01-01 Anion gap [Moles/Vol] 9 mmol/L Normal 9-18 [facility] Comment on above: Performed By: #### C BC, BMP ####[facility] [address] [place] [address] Calcium [Mass/Vol] 9.0 mg/dL Normal 8.5-10.2 [facility] Comment on above: Performed By: #### C BC, BMP ####[facility] [address] [place] [address] Chloride [Moles/Vol] 102 mmol/L Normal 97-[address] [facility] Comment on above: Performed By: #### C BC, BMP ####[facility] [address] [place] [address] CO2 [Moles/Vol] 29 mmol/L Normal 22-30 [facility] Comment on above: Performed By: #### C BC, BMP ####[facility] [address] [place] [address] Creatinine [Mass/Vol] 0.98 mg/dL High 0.58-0.96 [facility] Comment on above: Performed By: #### C BC, BMP ####[facility] A[address] [place] [address] eGFR- Amer. >60 Normal [facility] Comment on above: Performed By: #### C BC, BMP ####[facility] [address] [place], [place] [address] GFR/1.73 sq M predicted among non-blacks MDRD (S/P/Bld) [Vol rate/Area] 55 . Normal [facility] Comment on above: Result Comment: eGFR [...] GFR. Performed By: #### C ANGELA, BMP ####[facility] [address] [place] [address] Glucose [Mass/Vol] 108 mg/dL High 74-99 [facility] Comment on above: Result Comment: The [place] Diabetes Association (ADA) provides guidance for cutoff [...] Standards of Medical Care in Diabetes 2016, [place] Diabetes Association. Diabetes Care. 2016.39(Suppl 1). Performed By: #### C ANGELA, BMP ####[facility] [place] [address] Potassium [Moles/Vol] 4.4 mmol/L Normal 3.7-5.1 [facility] Comment on above: Performed By: #### C BC, BMP ####[facility] [place] [address] Sodium [Moles/Vol] 140 mmol/L Normal 136-144 [facility] Comment on above: Performed By: #### C BC, BMP ####[facility] [place] [address] Urea nitrogen [Mass/Vol] 24 mg/dL High 05-29 [facility] Comment on above: Performed By: #### C ANGELA, BMP ####[facility] [address] [place] [phone] CBCon 01-01-2021 Absolute nRBC <0.01 Normal <0.01 [facility] Comment on above: Performed By: #### C BC, BMP ####[facility] [address] [place] [address] Erythrocyte distribution width (RBC) [Ratio] 14.0 % Normal 11.5-15.0 [facility] Comment on above: Performed By: #### C ANGELA, BMP ####[facility] [address] [place] [address] Hematocrit (Bld) [Volume fraction] 40.9 % Normal 36.0-46.0 [facility] Comment on above: Performed By: #### C ANGELA, BMP ####[facility] [address] [place] [address] Hemoglobin (Bld) [Mass/Vol] 12.7 g/dL Normal 11.5-15.5 [facility] Comment on above: Performed By: #### C ANGELA, BMP ####[facility] [address] [place] [address] MCH (RBC) [Entitic mass] 28.0 pG Normal 26.0-34.0 [facility] Comment on above: Performed By: #### C ANGELA, BMP ####[facility] [address] [place] [address] MCHC (RBC) [Mass/Vol] 31.1 g/dL Normal 30.5-36.0 [facility] Comment on above: Performed By: #### C ANGELA, BMP ####[facility] [address] [place] [address] MCV (RBC) [Entitic vol] 90.1 fL Normal 80.0-100.0 [facility] Comment on above: Performed By: #### C BC, BMP ####[facility] [address] [place] [address] Platelet mean volume (Bld) [Entitic vol] 10.7 fL Normal 9.0-12.7 [facility] Comment on above: Performed By: #### C BC, BMP ####[facility] [address] [place] [address] Platelets (Bld) [#/Vol] 172 10*3/uL Normal 150-400 [facility] Comment on above: Performed By: #### C ANGELA, BMP ####[facility] [address] [place] [phone] RBC (Bld) [#/Vol] 4.54 10*6/uL Normal 3.90-5.20 [facility] Comment on above: Performed By: #### C BC, BMP ####[facility] Tvyylfeuzx6522 [phone] WBC (Bld) [#/Vol] 5.63 10*3/uL Normal 3.70-11.00 [facility] Comment on above: Performed By: #### C BC, BMP ####[facility] [address] [place] [phone] CONSULT PROGon 01-01-2021 CONSULT PROG HNO ID: [id number] Author: Jacquie Evans Service: Pulmonary Disease Author Type: Physician Type: Consult Progress Note Filed: 01/01/2021 2:33 PM Note Text: [facility] PULMONARY MEDICINE IN-PATIENT CONSULT PROGRESS NOTE [...] pathology data. Jacquie Evans MD Staff, Respiratory [facility] Pager #[phone] SUBJECTIVE CHIEF COMPLAINT: pneumothorax INTERVAL HPI:Terri Burciaga [...] (98.2 ?F) Oral 80 18 99 % 12/31/20 2143 119/63 36.5 ?C (97.7 ?F) Oral 78 18 97 % 02/22/21 2033 130/61 36.6 ?C (97.9 ?F) ? 78 [...] 01, 2021 TIME: 2:23 PM CELL: Normal [facility] PROGRESSon 01-01-2021 PROGRESS HNO ID: [id number] Author: Yessenia (Kiet) Lico Service: Hospital Medicine Author Type: Nurse Practitioner Type: Progress Notes Filed: 01/01/2021 1:55 PM Note Text: DEPARTMENT OF HOSPITAL MEDICINE PROGRESS NOTE SERVICE DATE: 01/01/2021 SERVICE TIME: 9:44 AM Hospital Medicine/Primary Attending: Stacie Shook NIGHT AND WEEKEND COVERAGE: DAISY COVERAGE: Days: [phone], please page attending physician. Nights: [phone], please page [facility] Night coverage pager [phone]. Subjective CC: Shortness of breath, chest pain s/p lung biopsy INTERVAL HPI: Complains of sharp left sided chest discomfort with coughing (dry, non productive cough). Pain is alleviated by [place]. Shortness of breath has improved since admission. [...] xrays with stable/unchanged findings --?Continue 02 via with goal Sp02 ~100% as per pulm [...] VTE Prophylaxis/Anticoagulants 12/28/20 1630 pneumatic compression stockings (tx,oh) VTE Prophylaxis: VTE prophylaxis appropriate Disposition: Home likely in the next 24 hours Plan of care discussed with: Provider, RN, Patient and Care Management Plan communicated to: Patient prefers to communicate with family. Documentation from previous visits has been copied and pasted. Documentation has been reviewed and edited as necessary for today's visit. SIGNATURE: Yessenia Barfield APRN.INTELLIGENCE CHIEF PATIENT NAME: Terri Burciaga DATE: January 01, 2021 TIME: 9:53 AM [facility] XR CHEST 1V FRONTAL PORTon 0 01-01-2021 [...] cardiomediastinal silhouette. Other: . IMPRESSION: Stable chest Consumer Credit Counselor: MARTHA Transcribe Date/Time: Jan 01 2021 7:59A Dictated by : SUSAN BRIAN MD This examination was interpreted and the report reviewed and electronically signed by: SUSAN BRIAN MD on Jan 01 2021 8:00AM EST [id number] [facility] ALLIED HEALTHon 12-31-2020 ALLIED HEALTH HNO ID: [id number] Author: HARMONY Hidalgo (Ct) Service: Radiology Author Type: Clinical Stoneworker Type: Allied Health Filed: 12/31/2020 10:00 AM [...] HARMONY Hidalgo December 31, 2020 10:00 AM [facility] Basic Metabolic Panlon 12-31 Anion gap [Moles/Vol] 6 mmol/L Low 9-18 [facility] Comment on above: Performed By: #### C BC, BMP ####[facility] [address] [place] [address] Calcium [Mass/Vol] 9.1 mg/dL Normal 8.5-10.2 [facility] Comment on above: Performed By: #### C BC, BMP ####[facility] [address] [place] [address] Chloride [Moles/Vol] 102 mmol/L Normal 97-[address] [facility] Comment on above: Performed By: #### C BC, BMP ####[facility] Tnjvusmlym5988 [address] CO2 [Moles/Vol] 28 mmol/L Normal 22-30 [facility] Comment on above: Performed By: #### C BC, BMP ####[facility] [address] [place] [phone] Creatinine [Mass/Vol] 1.01 mg/dL High 0.58-0.96 [facility] Comment on above: Performed By: #### C BC, BMP ####[facility] Jlilqvvuib0646 [address]721-5160 eGFR- Amer. >60 Normal [facility] Comment on above: Performed By: #### Joni MILLER, BMP ####[facility] Hepnesdmok5219 [phone] GFR/1.73 sq M predicted among non-blacks MDRD (S/P/Bld) [Vol rate/Area] 54 . Normal [facility] Comment on above: Result Comment: eGFR [...] accurately reflect actual GFR. Performed By: #### Joni MILLER, BMP ####[facility] [address] [place] [phone] Glucose [Mass/Vol] 109 mg/dL High 74-99 [facility] Comment on above: Result Comment: The [place] Diabetes Association (ADA) provides guidance for cutoff [...] Standards of Medical Care in Diabetes 2016, [place] Diabetes Association. Diabetes Care. 2016.39(Suppl 1). Performed By: #### C ANGELA, BMP ####[facility] Dkxgdysfgs3871 [address]721[address]5160 Potassium [Moles/Vol] 4.9 mmol/L Normal 3.7-5.1 [facility] Comment on above: Performed By: #### Joni MILLER, BMP ####[facility] [address] [place] [address] Sodium [Moles/Vol] 136 mmol/L Normal 136-144 [facility] Comment on above: Performed By: #### C BC, BMP ####[facility] [address] [place], [place] [address] Urea nitrogen [Mass/Vol] 24 mg/dL High 7-21 [facility] Comment on above: Performed By: #### C ANGELA, BMP ####[facility] [address] [place] [address] CASE MANAGEMon 12-31-2020 CASE MANAGEM HNO ID: [id number] Author: Mena (Rn) IVONNE Ortiz Service: Case Management Author Type: Registered [...] 31, 2020 TIME: 3:02 PM PAGER/CONTACT #: [phone] Normal [facility] CBCon 12-31-2020 Absolute nRBC <0.01 Normal <0.01 [facility] Comment on above: Performed By: #### C ANGELA, BMP ####[facility] [address] [place] [address] Erythrocyte distribution width (RBC) [Ratio] 14.1 % Normal 11.5-15.0 [facility] Comment on above: Performed By: #### C ANGELA, BMP ####[place] [address] Hematocrit (Bld) [Volume fraction] 41.3 % Normal 36.0-46.0 [facility] Comment on above: Performed By: #### C ANGELA, BMP ####[facility] [address] [place], [place] [address] Hemoglobin (Bld) [Mass/Vol] 12.7 g/dL Normal 11.5-15.5 [facility] Comment on above: Performed By: #### C ANGELA, BMP ####[facility] [address] [place] [address] MCH (RBC) [Entitic mass] 27.8 pG Normal 26.0-34.0 [facility] Comment on above: Performed By: #### C ANGELA, BMP ####[facility] [address] [place], [place] [address] MCHC (RBC) [Mass/Vol] 30.8 g/dL Normal 30.5-36.0 [facility] Comment on above: Performed By: #### C ANGELA, BMP ####[facility] [address] [place] [address] MCV (RBC) [Entitic vol] 90.4 fL Normal 80.0-100.0 [facility] Comment on above: Performed By: #### Joni MILLER, BMP ####[facility] [address] [place] [address] Platelet mean volume (Bld) [Entitic vol] 10.6 fL Normal 9.0-12.7 [facility] Comment on above: Performed By: #### C ANGELA, BMP ####[facility] [address] [place] [address] Platelets (Bld) [#/Vol] 169 10*3/uL Normal 150-400 [facility] Comment on above: Performed By: #### C ANGELA, BMP ####[facility] [address] [place], [place] [address] RBC (Bld) [#/Vol] 4.57 10*6/uL Normal 3.90-5.20 [facility] Comment on above: Performed By: #### C ANGELA, BMP ####[facility] [address] [place], [place] [address] WBC (Bld) [#/Vol] 5.40 10*3/uL Normal 3.70-11.00 [facility] Comment on above: Performed By: #### Joni MILLER, BMP ####[facility] [address] [place] [address] CONSULT PROGon 02-22-2021 CONSULT PROG HNO ID: [id number] Author: Jacquie Evans Service: Pulmonary Disease Author Type: Physician Type: Consult Progress Note Filed: 12/31/2020 1:20 PM Note Text: [facility] PULMONARY MEDICINE IN-PATIENT CONSULT PROGRESS NOTE [...] pathology data. Jacquie Evans MD Staff, Respiratory [facility] Pager #[phone] SUBJECTIVE CHIEF COMPLAINT: Chest pain INTERVAL HPI:Terri [...] (97.5 ?F) Oral 67 17 98 % 02/22/21 0504 132/83 36.4 ?C (97.5 ?F) Oral [...] small pleural effusion, no significant change. SIGNATURE: Jacquie Evans MD PATIENT NAME: Terri Burciaga DATE: December 31, 2020 TIME: 1:01 PM CELL: [facility] NURSING PROGon 12-31-2020 NURSING PROG HNO ID: [id number] Author: Luis MooreRn) IVONNE Lawrence Service: Nursing Author Type: Registered Nurse Type: Nursing Progress Note Filed: 12/31/2020 1:59 PM Note Text: Nursing Progress Note Patient Name: Terri Burciaga Patient [id number] Daily Note: Resting in bed with VM maintained-denies any needs @ this time. Up ad robby-no resp distress observed but pain remains with inspirations. Diet ordered-waiting on CXR 0915-No chg in assessment-resting in bed with c/o itching, skin flushing. Call to INTELLIGENCE CHIEF(Yessenia)-visited see new orders. 1115--Medicated with IV Benadryl prior going down for CXR-feeling better. Resting in bed with no needs assessed-VM maintained. No SOB/resp distress observed- 1315-Itching/flushing resolved-no chg in assessment, resting in bed with no needs assessed. 1315-Patient status changed to INPATIENT This note was completed by: Luis Lawrence RN Normal [facility] PROGRESSon 12-31-2020 PROGRESS HNO ID: [id number] Author: Yessenia Lagunas) Lico Service: Hospital Medicine Author Type: Nurse Practitioner Type: Progress Notes Filed: 12/31/2020 8:09 PM Note Text: DEPARTMENT OF HOSPITAL MEDICINE PROGRESS NOTE SERVICE DATE: 12/31/2020 SERVICE TIME: 9:27 AM Hospital Medicine/Primary Attending: Stacie Shook NIGHT AND WEEKEND COVERAGE: DAISY COVERAGE: Days: [phone], please page attending physician. Nights: [phone], please page [facility] Night coverage pager [phone]. Subjective CC: Shortness of breath, chest pain s/p lung biopsy INTERVAL HPI: Called to room by IVONNE nathan to patient experiencing sudden onset of [...] with slight worsening of pneumothorax --?02 via with goal Sp02 ~100% as per pulm [...] VTE Prophylaxis/Anticoagulants 12/28/20 1630 pneumatic compression stockings (tx,oh) VTE Prophylaxis: VTE prophylaxis appropriate Disposition: Home likely in the next 24 hours Plan of care discussed with: Provider, RN, Patient and Care Management Plan communicated to: Patient prefers to communicate with family. Documentation from previous visits has been copied and pasted. Documentation has been reviewed and edited as necessary for today's visit. SIGNATURE: Yessenia Barfield APRN.INTELLIGENCE CHIEF PATIENT NAME: Terri Burciaga DATE: December 31, 2020 TIME: 7:53 PM Normal [facility] Urinalysison 12-31-2020 Bilirubin, Urine Negative Normal Negative [facility] Comment on above: Performed By: #### U A ####[facility] [address] [place] [address] Clarity (U) Clear Normal Clear [facility] Comment on above: Performed By: #### U A ####[facility] [address] [place] [address] Color (U) Yellow Normal Yellow [facility] Comment on above: Performed By: #### U A ####[facility] [address] [place] [address] Glucose Ql (U) Negative Normal Negative [facility] Comment on above: Performed By: #### U A ####[facility] [address] [place] [address] Hemoglobin/Blood,Ur Negative Normal Negative [facility] Comment on above: Performed By: #### U A ####[facility] [address] [place] [address] Ketones Ql (U) Negative Normal Negative [facility] Comment on above: Performed By: #### U A ####[facility] [address] [place] [address] Leukest Negative Normal Negative [facility] Comment on above: Performed By: #### U A ####[facility] Ap[address]ur[address]ae27[address] [place] [address] Nitrite Ql (U) Negative Normal Negative [facility] Comment on above: Performed By: #### U A ####[facility] [address] [place] [address] pH (Bld) 6.0 Normal 5.0-8.0 [facility] Comment on above: Performed By: #### U A ####[facility] [address] [place] [address] Protein (U) [Mass/Vol] Negative Normal Negative [facility] Comment on above: Performed By: #### U A ####[place] [address] Specific [place], Ur 1.020 Normal 1.005-1.030 [facility] Comment on above: Performed By: #### U A ####[facility] [address] [place] [phone] Urobilinogen Qn (U) 0.2 E.U./dL Normal 0.2-1.[address] [facility] Comment on above: Performed By: #### U A ####[facility] [address] [place] [address] XR CHEST 2V FRONTAL/LATon XR CHEST 2V [...] mm apicopleural separation of the pneumothorax component. Consumer Credit Counselor: PSCPorfirio Transcribe Date/Time: Dec 31 2020 11:04A Dictated by : LISA LEACH DO This examination was interpreted and the report reviewed and electronically signed by: LISA LEACH DO on Dec 31 2020 11:16AM EST [id number] [facility] HNO ID: [id number] Author: HARMONY Hidalgo (Ct) Service: Radiology Author Type: Clinical Stoneworker Type: [facility] Filed: 12/30/2020 9:53 AM Note Text: Radiology Service Progress Note PATIENT NAME: Terri Burciaga MRN: DATE OF SERVICE: December 30, 2020 TIME: [...] HARMONY Hidalgo December 30, 2020 9:53 AM [facility] HNO ID: [id number] Author: Lora Quarles (Rt) Service: Radiology Author Type: Stoneworker Type: [facility] Filed: 12/30/2020 6:30 AM Note Text: Radiology Service Progress Note PATIENT NAME: Terri Burciaga MRN: DATE OF SERVICE: December 30, 2020 TIME: [...] RT Robina December 30, 2020 6:30 AM Normal [facility] Basic Metabolic Panlon 12-30 Anion gap [Moles/Vol] 10 mmol/L Normal 9-18 [facility] Comment on above: Performed By: #### C ANGELA, BMP ####[facility] [address] [place] [address] Calcium [Mass/Vol] 9.1 mg/dL Normal 8.5-10.2 [facility] Comment on above: Performed By: #### C ANGELA, BMP ####[facility] [address] [place] [address] Chloride [Moles/Vol] 102 mmol/L Normal 97-[address] [facility] Comment on above: Performed By: #### C BC, BMP ####[facility] [address] [place] [address] CO2 [Moles/Vol] 26 mmol/L Normal 22-30 [facility] Comment on above: Performed By: #### C BC, BMP ####[facility] [address] [place] [address] Creatinine [Mass/Vol] 1.06 mg/dL High 0.58-0.96 [facility] Comment on above: Performed By: #### C BC, BMP ####[facility] [address] [place] [address] eGFR- Amer. >60 Normal [facility] Comment on above: Performed By: #### C BC, BMP ####[facility] [address] [place] [address] GFR/1.73 sq M predicted among non-blacks MDRD (S/P/Bld) [Vol rate/Area] 51 . Normal [facility] Comment on above: Result Comment: eGFR [...] GFR. Performed By: #### C BC, BMP ####[facility] [address] [place] [address] Glucose [Mass/Vol] 101 mg/dL High 74-99 [facility] Comment on above: Result Comment: The Italian Diabetes Association (ADA) provides guidance for cutoff [...] Standards of Medical Care in Diabetes 2016, Italian Diabetes Association. Diabetes Care. 2016.39(Suppl 1). Performed By: #### C BC, BMP ####[facility] Knwyxcypsc0317 [address] Potassium [Moles/Vol] 4.1 mmol/L Normal 3.7-5.1 [facility] Comment on above: Performed By: #### C BC, BMP ####[facility] Iywrfgishh6387 [address] Sodium [Moles/Vol] 138 mmol/L Normal 136-144 [facility] Comment on above: Performed By: #### C BC, BMP ####[facility] [address] [place] [phone] Urea nitrogen [Mass/Vol] 21 mg/dL Normal 7-21 [facility] Comment on above: Performed By: #### C BC, BMP ####[facility] [address] [place] [phone] CASE MGT INIT Yung 2020 CASE MGT INIT JUAN JSOE HNO ID: [id number] Author: Estefany (Rn) IVONNE Hill Service: ? 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 Stated Goals: To have reduction in symptoms;To return home to life as it was Health Insurance: [employer] Medicare Health Issues Impacting Discharge Plan: Chronic;Newly diagnosed Newly Diagnosed: pneumothorax Chronic: HTN, GERD, FREIDA Last Discharge Date: 01/11/16 Is this Within [...] Pressure Has the Patient Been in a Mcfp Facility in the Past 30 days?: No SOCIAL: Living Arrangements: Home Lives With: Alone Financial Resources: Employed Primary Contact: Extended Emergency Contact Information Primary Emergency Contact: Amy Bell [place] Relation: Daughter Supportive Patient Contact:: Yes Contact [...] Mostly I feel financially burdened by my qqw-bj-ikadub expenses for my prescription medication:: 0 - Disagree Mostly Risk Score: 0 Are you interested in bedside delivery of your medications? No Is Patient Psychosocially Complex?: No ASSESSMENT AND PLAN: Medical Needs: Medical Needs: Two or more chronic diseases Psychosocial Needs: Psychosocial Needs: None FREEDOM OF CHOICE EXPLAINED: [place] of Choice Given: (not at this time) [...] is AANDOx3, resides alone in a 1SH. 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 CM instructed Amy that a CM will remain available for any d/c needs. Amy had no further questions/concerns voiced at this time. SIGNATURE: Estefany Hill RN PATIENT NAME: Terri Burciaga DATE: December 30, 2020 TIME: 12:16 PM PAGER/CONTACT #: [phone] Normal [facility] CBCon 12-30-2020 Absolute nRBC <0.01 Normal <0.01 [facility] Comment on above: Performed By: #### C ANGELA, BMP ####[facility] Mrkfbomwia9851 [phone] Erythrocyte distribution width (RBC) [Ratio] 14.2 % Normal 11.5-15.0 [facility] Comment on above: Performed By: #### C ANGELA, BMP ####[facility] Mgrkigehsv4449 [phone] Hematocrit (Bld) [Volume fraction] 43.8 % Normal 36.0-46.0 [facility] Comment on above: Performed By: #### C ANGELA, BMP ####[facility] [address] [place] [address] Hemoglobin (Bld) [Mass/Vol] 13.7 g/dL Normal 11.5-15.5 [facility] Comment on above: Performed By: #### C ANGELA, BMP ####[facility] [address] [place] [address] MCH (RBC) [Entitic mass] 27.7 pG Normal 26.0-34.0 [facility] Comment on above: Performed By: #### C ANGELA, BMP ####[facility] [address] [place] [address] MCHC (RBC) [Mass/Vol] 31.3 g/dL Normal 30.5-36.0 [facility] Comment on above: Performed By: #### C ANGELA, BMP ####[facility] [address] [place] [address] MCV (RBC) [Entitic vol] 88.7 fL Normal 80.0-100.0 [facility] Comment on above: Performed By: #### C ANGELA, BMP ####[facility] [address] [place] [address] Platelet mean volume (Bld) [Entitic vol] 10.4 fL Normal 9.0-12.7 [facility] Comment on above: Performed By: #### C ANGELA, BMP ####[facility] [address] [place] [phone] Platelets (Bld) [#/Vol] 171 10*3/uL Normal 150-400 [facility] Comment on above: Performed By: #### C ANGELA, BMP ####[facility] [address] [place] [phone] RBC (Bld) [#/Vol] 4.94 10*6/uL Normal 3.90-5.20 [facility] Comment on above: Performed By: #### C ANGELA, BMP ####[facility] [address] [place] [phone] WBC (Bld) [#/Vol] 5.16 10*3/uL Normal 3.70-11.00 [facility] Comment on above: Performed By: #### Joni MILLER, BMP ####[facility] [address] [place] [phone] CONSULT PROGon 12-30-2020 CONSULT PROG HNO ID: [id number] Author: Kait Hernández) Susan Service: Pulmonary Disease Author Type: Physician Type: Consult Progress Note Filed: 12/30/2020 9:58 AM Note Text: [facility] PULMONARY AND CRITICAL CARE MEDICINE IN-PATIENT CONSULT [...] pathology data. Kait Davis MD Staff, Respiratory [facility] Pager #[phone] SUBJECTIVE CHIEF COMPLAINT: SOB INTERVAL HPI:Terri Burciaga [...] (98.1 ?F) Oral 70 18 97 % 12/29/20 2038 116/61 36.9 ?C (98.4 ?F) Oral 75 [...] CO2 26 24 -- -- -- BUN -- -- -- CREAT 1.06* 1.08* -- -- -- GLUC 101* 109* -- -- -- CA 9.1 9.4 -- -- -- < > = values in this interval not displayed. Liver Function, Amylase, AND Lipase Cardiac Enzymes ABGs SIGNATURE: Kait Davis MD PATIENT NAME: Terri Burciaga DATE: December 30, 2020 TIME: 9:56 AM PAGER/CONTACT #: [phone] [facility] NURSING PROGon 12-30-2020 NURSING PROG HNO ID: [id number] Author: Cristela Roman) IVONNE Mcfadden Service: Nursing Author Type: Registered Nurse Type: Nursing Progress Note Filed: 12/31/2020 6:51 AM Note Text: Nursing Progress Note Patient Name: Terri Burciaga Patient Location: [facility] [place]8/[id number] Daily Note: 1900 Assumed care for patient [...] note was completed by: Cristela Mcfadden RN [facility] PROGRESSon 12-30-2020 PROGRESS HNO ID: [id number] Author: Johana Lagunas) Door Hanger Service: Hospital Medicine Author Type: Nurse Practitioner Type: Progress Notes Filed: 12/30/2020 11:24 AM Note Text: DEPARTMENT OF HOSPITAL MEDICINE PROGRESS NOTE SERVICE DATE: 12/30/2020 SERVICE TIME: 11:10 AM Hospital Medicine/Primary Attending: Delfin Hernández) Christiana NIGHT AND WEEKEND COVERAGE: DAISY COVERAGE: Days: [phone], please page attending physician. Nights: [phone], please page [facility] Night coverage pager [phone]. Subjective INTERVAL HPI: Increased shortness of breath [...] VTE Prophylaxis/Anticoagulants 12/28/20 1630 pneumatic compression stockings (tx,ar) VTE Prophylaxis: VTE prophylaxis appropriate Disposition: Home when medically cleared Plan of care discussed with: Patient, Care Management, RN and Attending Plan communicated to: N/A SIGNATURE: Johana Khan APRN.CNP PATIENT NAME: Terri Burciaga DATE: December 30, 2020 TIME: 11:10 AM Normal [facility] XR CHEST 1V FRONTAL PORTon 0 [...] spine and shoulders. IMPRESSION: Overall findings unchanged. Consumer Credit Counselor: [facility] Transcribe Date/Time: Dec 30 2020 7:30A Dictated by : MISBAH LENTZ MD This examination was interpreted and the report reviewed and electronically signed by: MISBAH LENTZ MD on Dec 30 2020 7:32AM EST [id number] [facility] XR CHEST 2V FRONTAL/LATon XR CHEST 2V [...] opacities overlying the left lower lung unchanged. Consumer Credit Counselor: PSCB Transcribe Date/Time: Dec 30 2020 9:55A Dictated by : MISBAH LENTZ MD This examination was interpreted and the report reviewed and electronically signed by: MISBAH LENTZ MD on Dec 30 2020 9:58AM EST [id number] [facility] ALLIED HEALTHon 12-29-2020 ALLIED HEALTH HNO ID: [id number] Author: Michaelle (Rt) Lora Desai Service: Radiology Author Type: Stoneworker Type: Allied Health Filed: 12/29/2020 10:56 AM [...] RT Gail December 29, 2020 10:56 AM [facility] Basic Metabolic Panlon 12-29 Anion gap [Moles/Vol] 10 mmol/L Normal 9-18 [facility] Comment on above: Performed By: #### C ANGELA, BMP ####[facility] Scfyhwtcwv3894 [phone] Calcium [Mass/Vol] 9.4 mg/dL Normal 8.5-10.2 [facility] Comment on above: Performed By: #### C ANGELA, BMP ####[facility] [address] [place] [phone] Chloride [Moles/Vol] 103 mmol/L Normal 97-[address] [facility] Comment on above: Performed By: #### C ANGELA, BMP ####[facility] [address] [place] [address] CO2 [Moles/Vol] 24 mmol/L Normal 22-30 [facility] Comment on above: Performed By: #### C BC, BMP ####[facility] [address] [place] [phone] Creatinine [Mass/Vol] 1.08 mg/dL High 0.58-0.96 [facility] Comment on above: Performed By: #### C BC, BMP ####[facility] [address] [place] [address] eGFR- Amer. >60 Normal [facility] Comment on above: Performed By: #### C ANGELA, BMP ####[facility]1000 [place] [phone] GFR/1.73 sq M predicted among non-blacks MDRD (S/P/Bld) [Vol rate/Area] 50 . Normal [facility] Comment on above: Result Comment: eGFR [...] GFR. Performed By: #### C , BMP ####[facility] [address] [place] [phone] Glucose [Mass/Vol] 109 mg/dL High 74-99 [facility] Comment on above: Result Comment: The Italian Diabetes Association (ADA) provides guidance for cutoff [...] Standards of Medical Care in Diabetes 2016, [place] Diabetes Association. Diabetes Care. 2016.39(Suppl 1). Performed By: #### C ANGELA, BMP ####[facility] [address] [place] [address] Potassium [Moles/Vol] 4.6 mmol/L Normal 3.7-5.1 [facility] Comment on above: Performed By: #### C BC, BMP ####[place] [address] Sodium [Moles/Vol] 137 mmol/L Normal 136-144 [facility] Comment on above: Performed By: #### C ANGELA, BMP ####[place] [address] Urea nitrogen [Mass/Vol] 21 mg/dL Normal 7-21 [facility] Comment on above: Performed By: #### C ANGELA, BMP ####[place] [address] CBCon 12-29-2020 Absolute nRBC <0.01 Normal <0.01 [facility] Comment on above: Performed By: #### C ANGELA, BMP ####[place] [address] Erythrocyte distribution width (RBC) [Ratio] 14.4 % Normal 11.5-15.0 [facility] Comment on above: Performed By: #### C BC, BMP ####[place] [address] Hematocrit (Bld) [Volume fraction] 43.2 % Normal 36.0-46.0 [facility] Comment on above: Performed By: #### C BC, BMP ####[place] [address] Hemoglobin (Bld) [Mass/Vol] 13.5 g/dL Normal 11.5-15.5 [facility] Comment on above: Performed By: #### C BC, BMP ####[place] [address] MCH (RBC) [Entitic mass] 27.9 pG Normal 26.0-34.0 [facility] Comment on above: Performed By: #### C ANGELA, BMP ####[facility] [address]zd[address]125 [phone] MCHC (RBC) [Mass/Vol] 31.3 g/dL Normal 30.5-36.0 [facility] Comment on above: Performed By: #### Joni MILLER, BMP ####[facility] [address]2696 [phone] MCV (RBC) [Entitic vol] 89.3 fL Normal 80.0-100.0 [facility] Comment on above: Performed By: #### C ANGELA, BMP ####[facility] [address] [place] [phone] Platelet mean volume (Bld) [Entitic vol] 10.7 fL Normal 9.0-12.7 [facility] Comment on above: Performed By: #### Joni MILLER, BMP ####[facility] [address] [place] [phone] Platelets (Bld) [#/Vol] 186 10*3/uL Normal 150-400 [facility] Comment on above: Performed By: #### Joni MILLER, BMP ####[facility] [address] [place] [phone] RBC (Bld) [#/Vol] 4.84 10*6/uL Normal 3.90-5.20 [facility] Comment on above: Performed By: #### Joni MILLER, BMP ####[facility] [address]ylm0571 [phone] WBC (Bld) [#/Vol] 7.07 10*3/uL Normal 3.70-11.00 [facility] Comment on above: Performed By: #### Joni MILLER, BMP ####[facility] [address]74 [phone] CONSULTon 12-29-2020 CONSULT HNO ID: [id number] Author: Kait Hernández) Susan Service: Pulmonary Disease Author Type: Physician Type: Consults Filed: 12/30/2020 9:57 AM Note Text: [facility]ITIAL CONSULTATION NOTE Patient Name: Terri Burciaga REASON FOR CONSULT: pneumothorax REQUESTING PHYSICIAN: Delfin Hernández) Thuestad ASSESSMENT: 75 year old White female with [...] yesterday in the afternoon. Dr. Evans, her road inspector, is currently working up this suspicious lung [...] Sprain of ligament of left ankle, initial pavtltqcuI54.672 Pain of left heel diphenhydrAMINE HCl (CHILDREN'S [...] Enzymes ABGs Kait Davis MD Staff, Respiratory [facility] CONSULT PROGon 12-29-2020 CONSULT PROG HNO ID: [id number] Author: Kait Hernández) Susan Service: Pulmonary Disease Author Type: Physician Type: Consult Progress Note Filed: 12/29/2020 12:36 PM Note Text: [facility] PULMONARY AND CRITICAL CARE MEDICINE CONSULT [...] pathology data. Kait Davis MD Staff, Respiratory [facility] Pager #[phone] SUBJECTIVE CHIEF COMPLAINT: SOB/pneumothorax INTERVAL HPI:Terri Burciaga [...] yesterday in the afternoon. Dr. Evans, her road inspector, is currently working up this suspicious lung [...] Terri Burciaga DATE: December 29, 2020 TIME: 12:10 PM PAGER/CONTACT #: [phone] [facility] NURSING PROGon 12-29-2020 NURSING PROG HNO ID: [id number] Author: Cristela MooreRn) IVONNE Mcfadden Service: Nursing Author Type: Registered Nurse Type: Nursing Progress Note Filed: 12/30/2020 5:06 AM Note Text: Nursing Progress Note Patient Name: Terri Burciaga Patient Location: [facility] [id number] Daily Note: 1900 Assumed care for patient [...] note was completed by: Cristela Mcfadden RN [facility] NURSING PROG HNO ID: [id number] Author: Cathryn Alba Service: Nursing Author Type: ? Type: Nursing Progress Note Filed: 12/29/2020 2:58 PM Note Text: Pt. Reported off to IVONNE Gleason. [facility] PROGRESSon 12-29-2020 PROGRESS HNO ID: [id number] Author: Johana Lagunas) [place] Service: Hospital Medicine Author Type: Nurse Practitioner Type: Progress Notes Filed: 12/29/2020 2:17 PM Note Text: DEPARTMENT OF HOSPITAL MEDICINE PROGRESS NOTE SERVICE DATE: 12/29/2020 SERVICE TIME: 2:08 PM Hospital Medicine/Primary Attending: Delfin Hernández) Christiana NIGHT AND WEEKEND COVERAGE: DAISY COVERAGE: Days: [phone], please page attending physician. Nights: [phone], please page [facility] Night coverage pager [phone]. Subjective INTERVAL HPI: Persistent increased GUERRA as well as left sided chest discomfort, improved with [place]. She is sating well on RA. CXR [...] VTE Prophylaxis/Anticoagulants 12/28/20 1630 pneumatic compression stockings (tx,ar) VTE Prophylaxis: VTE prophylaxis appropriate Disposition: Home, likely 24-48 hours Plan of care discussed with: Patient, RN and Consultants: Dr. Davis Plan communicated to: N/A SIGNATURE: Johana Khan APRN.CNP PATIENT NAME: Terri Burciaga DATE: December 29, 2020 TIME: 2:08 PM [facility] XR CHEST 1V FRONTAL PORTon 0 12-29-2020 [...] Other: . IMPRESSION: Improving small left pneumothorax. Consumer Credit Counselor: PSCB Transcribe Date/Time: Dec 29 2020 12:51P Dictated by : TAY MURGUIA MD This examination was interpreted and the report reviewed and electronically signed by: TAY MURGUIA MD on Dec 29 2020 12:53PM EST [id number] [facility] HNO ID: [id number] Author: Lora Quarles (Rt) Service: Radiology Author Type: Stoneworker Type: [facility] Filed: 12/28/2020 3:14 PM Note Text: Radiology Service Progress Note PATIENT NAME: Terri Burciaga MRN: DATE OF SERVICE: December 28, 2020 TIME: [...] Robina December 28, 2020 3:14 PM [facility] HNO ID: [id number] Author: Lora Abdi (Rt) Service: ? Author Type: Stoneworker Type: [facility] Filed: 12/28/2020 11:51 AM Note Text: Radiology Service Progress Note PATIENT NAME: Terri Burciaga MRN: DATE OF SERVICE: December 28, 2020 TIME: [...] Jin December 28, 2020 11:50 AM Normal [facility] CBCon 12-28-2020 Absolute nRBC <0.01 Normal <0.01 [facility] Comment on above: Performed By: #### C BC ####[facility] [address] [place] [address] Erythrocyte distribution width (RBC) [Ratio] 14.2 % Normal 11.5-15.0 [facility] Comment on above: Performed By: #### C BC ####[place] [address] Hematocrit (Bld) [Volume fraction] 44.2 % Normal 36.0-46.0 [facility] Comment on above: Performed By: #### C BC ####[place] [address] Hemoglobin (Bld) [Mass/Vol] 13.9 g/dL Normal 11.5-15.5 [facility] Comment on above: Performed By: #### C BC ####[place] [address] MCH (RBC) [Entitic mass] 27.9 pG Normal 26.0-34.0 [facility] Comment on above: Performed By: #### C BC ####[place] [address] MCHC (RBC) [Mass/Vol] 31.4 g/dL Normal 30.5-36.0 [facility] Comment on above: Performed By: #### C BC ####[facility] [address] [place] [address] MCV (RBC) [Entitic vol] 88.6 fL Normal 80.0-100.0 [facility] Comment on above: Performed By: #### C BC ####[place] [address] Platelet mean volume (Bld) [Entitic vol] 10.0 fL Normal 9.0-12.7 [facility] Comment on above: Performed By: #### C BC ####[place] [address] Platelets (Bld) [#/Vol] 193 10*3/uL Normal 150-400 [facility] Comment on above: Performed By: #### C BC ####[place] [address] RBC (Bld) [#/Vol] 4.99 10*6/uL Normal 3.90-5.20 [facility] Comment on above: Performed By: #### C BC ####[place] [address] WBC (Bld) [#/Vol] 7.36 10*3/uL Normal 3.70-11.00 [facility] Comment on above: Performed By: #### C BC ####[place] [address] Absolute nRBC <0.01 Normal <0.01 [facility] Comment on above: Performed By: #### C BC, PT ####[place] [address] Erythrocyte distribution width (RBC) [Ratio] 14.2 % Normal 11.5-15.0 [facility] Comment on above: Performed By: #### C BC, PT ####[place] [address] Hematocrit (Bld) [Volume fraction] 46.6 % High 36.0-46.0 [facility] Comment on above: Performed By: #### C BC, PT ####[place] [address] Hemoglobin (Bld) [Mass/Vol] 14.8 g/dL Normal 11.5-15.5 [facility] Comment on above: Performed By: #### C BC, PT ####[place] [address] MCH (RBC) [Entitic mass] 27.9 pG Normal 26.0-34.0 [facility] Comment on above: Performed By: #### C BC, PT ####[place] [address] MCHC (RBC) [Mass/Vol] 31.8 g/dL Normal 30.5-36.0 [facility] Comment on above: Performed By: #### C ANGELA, PT ####[facility] [address] [place] [phone] MCV (RBC) [Entitic vol] 87.9 fL Normal 80.0-100.0 [facility] Comment on above: Performed By: #### Joni MILLER, PT ####[facility] [address] [place] [phone] Platelet mean volume (Bld) [Entitic vol] 10.3 fL Normal 9.0-12.7 [facility] Comment on above: Performed By: #### Joni MILLER, PT ####[facility] [address] [place] [address] Platelets (Bld) [#/Vol] 197 10*3/uL Normal 150-400 [facility] Comment on above: Performed By: #### Joni MILLER, PT ####[facility] [address] [place] [phone] RBC (Bld) [#/Vol] 5.30 10*6/uL High 3.90-5.20 [facility] Comment on above: Performed By: #### Joni MLILER, PT ####[facility] [address] [place] [phone] WBC (Bld) [#/Vol] 5.66 10*3/uL Normal 3.70-11.00 [facility] Comment on above: Performed By: #### Joni MILLER, PT ####[facility] [address] [place] [phone] CT LUNG BIOPSY WO CONTRASTon 12-28-2020 CT LUNG BIOPSY WO CONTRAST * * *Final Report* * * DATE OF EXAM: Dec 28 2020 11:57AM [facility] LUNG BIOPSY WO CONTRAST [...] the patient. IMPRESSION: Left lung biopsy. Pneumothorax. Consumer Credit Counselor: MARTHA Transcribe Date/Time: Dec 28 2020 12:06P Dictated by : OREN ARCINIEGA MD This examination was interpreted and the report reviewed and electronically signed by: OREN ARCINIEGA MD on Dec 28 2020 12:11PM EST [id number] Normal [facility] HISTORY PHYSICALon HISTORY PHYSICAL HNO ID: [id number] Author: Johana Lagunas) [place] Service: Hospital Medicine Author Type: Nurse Practitioner Type: HANDP Filed: 12/28/2020 4:59 PM Note Text: Attestation signed by Delfin Villeda at 01/03/2021 9:10 PM Attending Note I have personally reviewed the PA/TRANSITIONAL KINDERGARTEN TEACHER note. Agree with above assessment and plan. Other additions or changes: None SIGNATURE: Delfin Villeda MD DATE: January 03, 2021 TIME: 9:10 PM DEPARTMENT [facility] MEDICINE HISTORY AND PHYSICAL EXAM SERVICE DATE: 12/28/2020 SERVICE TIME: 4:06 PM Primary Care Physician: Andre Santana MD NIGHT AND WEEKEND COVERAGE: DAISY COVERAGE: Days: [phone], please page attending physician. Nights: [phone], please page [facility] Night coverage pager [phone]. Subjective CHIEF COMPLAINT: Pneumothorax of left lung [...] being worked up by the patient's primary road inspector, Dr. Evans, who she saw most recently [...] APRN.CNP PATIENT NAME: Terri Burciaga DATE: December 28, 2020 TIME: 4:06 PM [facility] NURSING PROGon 12-28-2020 NURSING PROG HNO ID: [id number] Author: Cristela (Rn) IVONNE Mcfadden Service: Nursing Author Type: Registered Nurse Type: Nursing Progress Note Filed: 12/29/2020 5:06 AM Note Text: Nursing Progress Note Patient Name: Terri Burciaga Patient Location: [place] [id number] Daily Note: 1900 Assumed care for patient [...] note was completed by: Cristela Mcfadden RN [facility] NURSING PROG HNO ID: [id number] Author: Luis Roman) IVONNE Lawrence Service: Nursing Author Type: Registered Nurse Type: Nursing Progress Note Filed: 12/28/2020 5:58 PM Note Text: Nursing Progress Note Patient Name: Terri Burciaga Patient Location: [id number] Daily Note: Received patient from [address] DSD intact to posterior left back with drainage/reddness. Denies any SOB, but does c/o pain left sided chest 04/18-medicated prior arrival to floor. Diet menu provided, daughter @ bedside. LS-essentially CTA with diminished posterior left side. 1629-No chg in assessment-resting in bed eating dinner with daughter @ bedside AND INTELLIGENCE CHIEF visited for admission orders-no needs assessed, will medicate for pain 1829-No chg in assessment-pain now 10. Eating dinner in bed-no needs assessed. Denies any SOB, drsg DANDI to left back. Resting in bed watching TV This note was completed by: Luis Lawrence RN [facility] NURSING PROG HNO ID: [id number] Author: Neela (Rn) Heber RN Service: Nursing Author Type: Registered Nurse Type: Nursing Progress Note Filed: 12/28/2020 1:07 PM Note Text: POST OP LEARNING RESPONSE INSTRUCTION PROVIDED TO: Patient METHOD OF INSTRUCTION: Individual instruction PATIENT / FAMILY RESPONSE: Information received as demonstrated by interest and questions FOLLOW-UP PLAN: Complete - No need for follow-up Follow-up in [facility] OPD in SUPPLEMENTAL MATERIAL: None REFERRAL (RECOMMENDATION): None Electronically Signed By: Neela Pablo RN In Department: [facility] RADIOLOGY Normal [facility] Protimeon 12-28-2020 PT Coag (PPP) [Time] 1.0 s Normal 0.9-1.[address] [facility] Comment on above: Result Comment: Serena min K Antagonist (VKA) Therapeutic Range: INR 2 to 3 (Target INR of 2.5) Note: For patients treated with VKA drugs, such as warfarin, the [employer] 2012 Guideline recommends [...] to 3.5 (target INR of 3). Trevon GH, et al. Chest 2012, 141:7S-47S Leonidas RA et al. JAC 2017, 70: 252-289 Performed By: #### C BC, PT ####[facility] [id number] [place] [phone] PT Coag (PPP) [Time] 10.1 s Normal 9.7-13.[address] [facility] Comment on above: Performed By: #### C BC, PT ####[facility] [id number] [phone] SURGICAL PATHOLOGYon 021 SURGICAL PATHOLOGY Specimen originated from [facility] Specimen #: [id number] Submitting Physician: OREN SUZE, MD FINAL DIAGNOSIS Left lung, lower lobe [...] in one cassette. Gross examination performed at [facility], [address] [place] [address] TTN 12/28/2020 6:28:58 PM Date of Report: 12/31/2020 Date of Procedure: 12/28/2020 Date of Receipt: 12/28/2020 Submitted by: OREN ARCINIEGA MD Additional Physician(s): Jacquie Evans M.D. Location: 3 S Diagnostic interpretation performed at [facility], [address] [place] [address]. CLIA Number: [id number] [facility] XR CHEST 1V FRONTALon 2020 XR CHEST [...] apical intrapleural distance, slightly larger than previous. Consumer Credit Counselor: MARTHA Transcribe Date/Time: Dec 28 2020 3:18P Dictated by : Greg GONZALES MD This examination was interpreted and the report reviewed and electronically signed by: Greg GONZALES MD on Dec 28 2020 3:25PM EST [id number] [facility] XR CHEST 1V FRONTAL PORTon 0 12-28-2020 [...] hemorrhage in the area of the biopsy. Consumer Credit Counselor: [facility] Transcribe Date/Time: Dec 28 2020 11:51A Dictated by : BRIANNA HAAS MD This examination was interpreted and the report reviewed and electronically signed by: BRIANNA HAAS MD on Dec 28 2020 11:59AM EST [id number] [facility] NM PET/CT SKULL-THIGH INITon 12-25-2020 NM PET/CT [...] avid osseous process. No destructive/traumatic bony abnormality. Consumer Credit Counselor: MARTHA Transcribe Date/Time: Dec 25 2020 2:06P Dictated by : SAJAN GERARDO MD This examination was interpreted and the report reviewed and electronically signed by: SAJAN GERARDO MD on Dec 25 2020 2:26PM EST [id number] [facility] PROGRESSon 12-25-2020 PROGRESS HNO ID: [id number] Author: Maren MooreRtLora Polk Service: Nuclear Medicine Author Type: Stoneworker Type: Progress Notes Filed: 12/25/2020 11:15 AM [...] 1105 PATIENT DISCHARGED TO: Ambulatory patient, left [place] department area. A Diagnostic radioactive procedure has taken place, with no further precautions necessary other than routine body substance precautions. More information regarding radiation safety can be found using this link: [email or web address] %[email or web address]-%20Diagnostic%20Nuclear% 20Medicine%20Procedures.pdf SIGNATURE: MAREN SHERIDAN, RT PATIENT NAME: Terri Burciaga DATE: December 25, 2020 TIME: 11:15 AM PAGER/CONTACT #: [facility] HOSPon 12-11-2020 HOSP Patient:Terri Burciaga MRN: Height:4' [...] 46.0 36.0 Progress Notes (RADIO PET CT [facility]): RT MIRELES Tech 12/25/2020 11:15 AM Signed RADIOLOGY SERVICE PROGRESS NOTE SERVICE DATE: 12/25/2020 SERVICE TIME: 11:15 AM PATIENT IDENTITY VERIFICATION COMPLETED USING TWO (2) STANDARD IDENTIFIERS: Name and Date of confirmed by patient verbally DIAGNOSTIC CT PERFORMED: No IV SITE: Ambulatory: [place] only - direct IV injection in the Left antecubital site POST EXAM PIV STATUS: Not applicable PROCEDURE TYPE: [place] INJECT: PET/CT BODY SCAN. 11.5 mCi F18 FDG. No other medications given.. ADMINISTRATION TIME: 1105 PATIENT DISCHARGED TO: Ambulatory patient, left [place] department area. A Diagnostic radioactive procedure has taken place, with no further precautions necessary other than routine body substance precautions. More information regarding radiation safety can be found using this link: [email or web address]%20Protection%20-% 20Diagnostic%20Nuclear%20Med icine%20Procedures.pdf SIGNATURE: MAREN SHERIDAN, RT PATIENT NAME: Terri Burciaga DATE: December 25, 2020 TIME: 11:15 AM PAGER/CONTACT #: Progress Notes (NEUR SLEEP [facility]): Angelika Hector 12/12/2020 1:25 PM Signed Patient called stating [...] fall within 31-90 day f/u requirement. Called [facility] and she was setup 11/19/20. Informed them that f/u appt was on 02/13. Crystal at [facility] stated she would document that and it is within the proper time frame. Called pt back and updated her that [facility] is aware of appt date and that it is within the 31-90 day window. Informed pt that visit has to be in person or virtual. Pt states that she cannot do a virtual so she will go to [place] for the appt. Changed pt's appt to in person at [place] in Epic. Normal [facility] BLOOD CULTURE, BACTERIALon 1 12-12-2019 BLOOD CULTURE, BACTERIAL PATIENT: TERRI BURCIAGA LOCATION: [facility]#: [id number] : 47 AGE: SEX: F ORDERED BY: MATTY FELIZ SOURCE: Blood COLLECTED: 10/11/20 18:17 ANTIBIOTICS AT [facility].: RECEIVED : 10/12/20 01:56 SITE: ANTECUBITAL R E S U L T S BLOOD CULTURE, BACTERIAL FINAL 10/17/20 05:42 No Growth at 1 days No Growth at 2 days No Growth at 3 days NO GROWTH - FINAL REPORT Normal [facility] Comment on above: Performed By: #### M G #### [place] [address] CBC AND DIFFERENTIALon 10-11 Basophils (Bld) [#/Vol] 0.00 10*3/uL Normal 0.00 - 0.10 [facility] Comment on above: Performed By: #### C BCDF #### [address] [address] Basophils/100 WBC (Bld) 0.4 % Normal 0.0 - 2.0 [facility] Comment on above: Performed By: #### C BCDF #### [address] [address] Eosinophils (Bld) [#/Vol] 0.00 10*3/uL Normal 0.00 - 0.40 [facility] Comment on above: Performed By: #### C BCDF #### [address] [address] Eosinophils/100 WBC (Bld) 0.1 % Normal 0.0 - 6.0 [facility] Comment on above: Performed By: #### C BCDF #### [address] [address] Erythrocyte distribution width (RBC) [Ratio] 13.6 % Normal 11.5 - 14.5 [facility] Comment on above: Performed By: #### C BCDF #### [address] [address] Hematocrit (Bld) [Volume fraction] 46.5 % High 36.0 - 46.0 [facility] Comment on above: Performed By: #### C BCDF #### [address] [address] Hemoglobin (Bld) [Mass/Vol] 15.3 g/dL Normal 12.0 - 16.0 [facility] Comment on above: Performed By: #### C BCDF #### [address] [address] Lymphocytes (Bld) [#/Vol] 0.80 10*3/uL Normal 0.80 - 3.00 [facility] Comment on above: Performed By: #### C BCDF #### [address] [address] Lymphocytes/100 WBC (Bld) 15.8 % Normal 13.0 - 44.0 [facility] Comment on above: Performed By: #### C BCDF #### [address] [address] MCHC (RBC) [Mass/Vol] 33.0 g/dL Normal 32.0 - 36.0 [facility] Comment on above: Performed By: #### C BCDF #### [address] [address] MCV (RBC) [Entitic vol] 85 fL Normal 80 - 100 [facility] Comment on above: Performed By: #### C BCDF #### [address] [address] Monocytes (Bld) [#/Vol] 0.80 10*3/uL Normal 0.05 - 0.80 [facility] Comment on above: Performed By: #### C BCDF #### [address] [address] Monocytes/100 WBC (Bld) 15.3 % Normal 2.0 - 10.0 [facility] Comment on above: Performed By: #### C BCDF #### [address] [address] Neutrophils (Bld) [#/Vol] 3.40 10*3/uL Normal 1.60 - 5.50 [facility] Comment on above: Result Comment: Perc ent differential counts (%) should be interpreted in the context of the absolute cell counts (cells/L). Performed By: #### C BCDF #### [address] [address] Neutrophils/100 WBC (Bld) 68.4 % Normal 40.0 - 80.0 [facility] Comment on above: Performed By: #### C BCDF #### [address] [address] Nucleated RBC/100 WBC (Bld) [Ratio] 0.3 /100 WBC Normal [facility] Comment on above: Performed By: #### C BCDF #### [address] [address] Platelets (Bld) [#/Vol] 166 10*3/uL Normal 150 - 450 [facility] Comment on above: Performed By: #### C BCDF #### [address] [address] RBC (Bld) [#/Vol] 5.45 x10E12/L High 4.00 - 5.20 [facility] Comment on above: Performed By: #### C BCDF #### [place] [address]605 WBC (Bld) [#/Vol] 5.0 10*3/uL Normal 4.4 - 11.3 [facility] Comment on above: Performed By: #### C BCDF #### [place] 8[address]605 COMPREHENSIVE PANELon 2019 Albumin [Mass/Vol] 4.0 g/dL Normal 3.4 - 5.0 [facility] Comment on above: Performed By: #### C MP #### [place] 8[address]605 ALP [Catalytic activity/Vol] 91 U/L Normal 33 - 136 [facility] Comment on above: Performed By: #### C MP #### [address] [address] ALT [Catalytic activity/Vol] 30 U/L Normal 7 - 45 [facility] Comment on above: Result Comment: Miriam ents treated with Sulfasalazine may generate falsely decreased results for ALT. Performed By: #### C MP #### [address] [address] Anion gap [Moles/Vol] 14 mmol/L Normal 10 - 20 [facility] Comment on above: Performed By: #### C MP #### [address] [address] AST [Catalytic activity/Vol] 23 U/L Normal 9 - 39 [facility] Comment on above: Performed By: #### C MP #### [address] [address] Bilirubin [Mass/Vol] 0.6 mg/dL Normal 0.0 - 1.2 [facility] Comment on above: Performed By: #### C MP #### [address] [address] Calcium [Mass/Vol] 9.4 mg/dL Normal 8.6 - 10.3 [facility] Comment on above: Performed By: #### C MP #### [address] [address] Chloride [Moles/Vol] 101 mmol/L Normal 98 - 107 [facility] Comment on above: Performed By: #### C MP #### [address] [address] Creatinine [Mass/Vol] 1.01 mg/dL Normal 0.50 - 1.05 [facility] Comment on above: Performed By: #### C MP #### [address] [address] GFR- AM. 65 mL/min/1.73m2 Normal >60 [facility] Comment on above: Result Comment: CALC ULATIONS OF ESTIMATED GFR ARE PERFORMED USING THE MDRD STUDY EQUATION FOR THE IDMS-TRACEABLE CREATININE METHODS. CLIN CHEM 2007;53:766-72 Performed By: #### C MP #### [address] [address] GFR-NON AM. 54 mL/min/1.73m2 Abnormal >60 [facility] Comment on above: Performed By: #### C MP #### [address] [address] Glucose [Mass/Vol] 110 mg/dL High 74 - 99 [facility] Comment on above: Performed By: #### C MP #### [address] [address] HCO3 (Bld) [Moles/Vol] 24 mmol/L Normal 21 - 32 [facility] Comment on above: Performed By: #### C MP #### [address] [address] Potassium [Moles/Vol] 3.4 mmol/L Low 3.5 - 5.3 [facility] Comment on above: Performed By: #### C MP #### [address] [address] Protein [Mass/Vol] 7.8 g/dL Normal 6.4 - 8.2 [facility] Comment on above: Performed By: #### C MP #### [address] [address] Sodium [Moles/Vol] 136 mmol/L Normal 136 - 145 [facility] Comment on above: Performed By: #### C MP #### [address] [address] Urea nitrogen [Mass/Vol] 18 mg/dL Normal 6 - 23 [facility] Comment on above: Performed By: #### C MP #### [address] [address] [address] ANGIO CHE[address] FOR PEon CT ANGIO CHEST FOR PE Patient Name: TERRI BURCIAGA STUDY: CT ANGIO CHEST FOR PE; 10/11/2020 9:17 pm INDICATION: tachy and sob. COMPARISON: CT chest 12/13/2012 ACCESSION NUMBER(S): [id number] ORDERING CLINICIAN: MATTY FELIZ TECHNIQUE: Contiguous axial [...] lesions. Electronically signed by: JAKE NAPOLES MD Normal [facility] LACTATEon 10-11-2020 Lactate [Moles/Vol] 1.1 mmol/L Normal 0.4 - 2.0 [facility] Comment on above: Result Comment: Dolores puncture immediately after or during the administration of Metamizole may lead to falsely low results. Testing should be performed immediately prior to Metamizole dosing. 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 Sensation and motor function of extremities grossly intact. Psych: Appropriate mood and affect. I have reviewed and confirmed nurses/medics notes for patient past, social and family history. Portions of this note were dictated by speech recognition. An attempt at proof reading was made to minimize errors. Minor errors in business transformation analyst may be present. HISTORY OF PRESENTING ILLNESS [...] whether these are cysts or solid lesions. TH CT Angio Chest for PE [Oct 11 2020 10:17PM] VITAL SIGNS: T PRBP SpO2O2(LPM) %FiO2 Method 11-Oct-2020 22:27:00-3105721/72 94 room air, no respiratory support 11-Oct-2020 21:40:00-3801909/63 94 room air, no respiratory support 11-Oct-2020 19:35:00-7992255/85 96 room air, no respiratory support 11-Oct-2020 18:25:00-33389656/82 96 room air, no respiratory support 11-Oct-2020 17:18:00-37.269443822/97 95 EKG INTERPRETATION #1: Impression: EKG performed [...] patient: no Electronic Signatures: Matty Feliz I (SECTION WEAVER-INTELLIGENCE CHIEF) (Signed 11-Oct-2020 23:00) Authored: ED Notes, HPI, PMH, Results/Vital Signs, EKG, MDM/ED Course, Clinical Impression, Attestation, Chart Review, Scores Last Updated: 11-Oct-2020 23:00 by Matty Feliz I (SECTION WEAVER-INTELLIGENCE CHIEF) References: 1. Data Referenced From Triage - ED 11-Oct-2020 17:18 Normal [facility] Risk Screen - Adult Emergenc yon 10-11-2020 Risk Screen - Adult Emergency Preferred Language: Preferred Language: Preferred Language for Discussing Health Care (patient/designee)[place] Advanced Directives: Advance Directive/DNRno Advance Directive Information [...] Learning Preferencesverbal instruction Cultural Considerationsnone Developmental Considerationsnone Nondenominational Considerationsnone Learning Assessment (Other Learner): Learning Assessment (Other Learner): Other learner availableno Pressure Injury/TB/Substance: Pressure Injury: Pressure Injury Present on Admissionno Do you have a coughyes... Has your cough lasted longer than 2 weeksno Substance Use Current or Former Historynever: Cigarette/Tobacco, e-Cigarette/Vaping, Alcohol, Street Drugs Admission Risk Screen: Significant IndicatorsComplete CAGE: CAGE: Is this an injured patient at a Trauma Center ([facility]/[place]): no Electronic Signatures: Sheridan Murdock (RN) (Signed 11-Oct-2020 17:24) Authored: Preferred Language, Advanced Directives, Family Violence Adult, Learning Assessment (Patient), Learning Assessment (Other Learner), Pressure Injury/TB/Substance, Pressure Injury, CAGE Last Updated: 11-Oct-2020 17:24 by Sheridan Murdock (IVONNE) Normal [facility] TROPONIN Ion 10-11-2020 Troponin I.cardiac [Mass/Vol] ng/mL Normal 0.00 - 0.03 [facility] Comment on above: Result Comment: LESS THAN [...] is performed using different testing methodology at [facility] than at other [facility]. Direct result comparisons should only be made within the same method. Performed By: #### T ROP2 #### [facility] [address] [place] [address] Triage - EDon 10-11-2020 Triage - ED [...] Accompanied By: self Language: Spoken Language Preferred: [place]er CHIEF COMPLAINT TERRI BURCIAGA is a Female [...] BMI (kg/m2): 35.219 Calculated BSA (m2) 1.86 Sterling Coma Scale: Best Eye Response: (E4) spontaneous Best Motor Response: (M6) obeys commands Best Verbal Response: (V5) oriented Sterling Score: 15 Allergies: yes Mask applied: yes [...] Medical History Reviewedyes Electronic Signatures: Sheridan Murdock (RN) (Signed 11-Oct-2020 17:23) Entered: Risk Screens, Pain, Arrival, ABCD, Travel History, Chart Review, Scores, Past Medical History Authored: Quick Triage, Risk Screens, Pain, Arrival, ABCD, Travel History, Chart Review, Scores, Past Medical History Last Updated: 11-Oct-2020 17:23 by Sheridan Murdock (RN) [facility] CT CHEST W IVCON PEon 2019 CT CHEST W IVCON PE * * *Final Report* * * DATE OF EXAM: Apr 23 2020 6:42PM [facility] 0540 - CT CHEST W IVCON PE [...] Findings on Abdominal CT. JACR 2010; 7:754 Consumer Credit Counselor: MARTHA Transcribe Date/Time: Apr 23 2020 7:15P Dictated by : AMERICA PETERS MD This examination was interpreted and the report reviewed and electronically signed by: AMERICA PETERS MD on Apr 23 2020 7:26PM EST Normal [facility] CORONAVIRUS 2019 BY PCRon CORONAVIRUS 2019,PCR NOT DETECTED Normal Not Detected [facility] Comment on above: Order Comment: Order ed by [facility], Healthcare Worker Result Comment: Nega tive (NOT [...] the authorization is terminated or revoked sooner. [facility] ([facility]) is certified under CLIA-88 as qualified to perform high complexity testing. This tests analytical performance characteristics have been determined by [facility]. Testing is performed at [facility] is located at [address] [place] [address] (CLIA License #[id number], CAP #[id number]). Performed By: #### C OV19 #### [facility] [address] [place] [address] CORONAVIRUS 2019 BY PCRon Lab Specimen Source Nasal, Nasopharyngeal Normal [facility] Comment on above: Order Comment: Order ed by [facility], Healthcare Worker Performed By: #### C OV19 #### [facility] [address] [place] [address] APTTon 02-13-2020 aPTT Coag (Bld) [Time] 41 s High 28 - 38 [facility] Comment on above: Result Comment: THE APTT IS NO LONGER USED FOR MONITORING UNFRACTIONATED HEPARIN THERAPY. FOR MONITORING HEPARIN THERAPY, USE THE HEPARIN ASSAY. Performed By: #### A PTT #### [address] [address] BASIC METABOLIC PANELon 04-0 Anion gap [Moles/Vol] 15 mmol/L Normal 10 - 20 [facility] Comment on above: Performed By: #### P TINR #### [address] [address] Calcium [Mass/Vol] 9.6 mg/dL Normal 8.6 - 10.3 [facility] Comment on above: Performed By: #### P TINR #### [address] [address] Chloride [Moles/Vol] 103 mmol/L Normal 98 - 107 [facility] Comment on above: Performed By: #### P TINR #### [address] [address] Creatinine [Mass/Vol] 1.04 mg/dL Normal 0.50 - 1.05 [facility] Comment on above: Performed By: #### P TINR #### [address] [address] GFR- AM. 63 mL/min/1.73m2 Normal >60 [facility] Comment on above: Result Comment: CALC ULATIONS OF ESTIMATED GFR ARE PERFORMED USING THE MDRD STUDY EQUATION FOR THE IDMS-TRACEABLE CREATININE METHODS. CLIN CHEM 2007;53:766-72 Performed By: #### P TINR #### [address] [address] GFR-NON AM. 52 mL/min/1.73m2 Abnormal >60 [facility] Comment on above: Performed By: #### P TINR #### [address] [address] Glucose [Mass/Vol] 104 mg/dL High 74 - 99 [facility] Comment on above: Performed By: #### P TINR #### [address] [address] HCO3 (Bld) [Moles/Vol] 25 mmol/L Normal 21 - 32 [facility] Comment on above: Performed By: #### P TINR #### [address] [address] Potassium [Moles/Vol] 3.8 mmol/L Normal 3.5 - 5.3 [facility] Comment on above: Performed By: #### P TINR #### [address] [address] Sodium [Moles/Vol] 139 mmol/L Normal 136 - 145 [facility] Comment on above: Performed By: #### P TINR #### [address] [address] Urea nitrogen [Mass/Vol] 16 mg/dL Normal 6 - 23 [facility] Comment on above: Performed By: #### P TINR #### [address] [address] BNPon 02-13-2020 Natriuretic peptide B (Bld) [Mass/Vol] 35 pg/mL Normal 0 - 99 [facility] Comment on above: Result Comment: . <1 00 pg/mL - Heart failure unlikely 100-299 pg/mL - Intermediate probability of acute heart . failure exacerbation. Correlate with clinical . context and patient history. >=300 pg/mL - Heart Failure likely. Correlate with clinical . context and patient history. BNP testing is performed using different testing methodology at [facility] than at other [facility]. Direct result comparisons should only be made within the same method. Performed By: #### M G #### [place] [id number] CBC AND DIFFERENTIALon 02-12 Basophils (Bld) [#/Vol] 0.00 10*3/uL Normal 0.00 - 0.10 [facility] Comment on above: Performed By: #### M G #### [address] [address] Basophils/100 WBC (Bld) 0.3 % Normal 0.0 - 2.0 [facility] Comment on above: Performed By: #### M G #### [address] [address] Eosinophils (Bld) [#/Vol] 0.00 10*3/uL Normal 0.00 - 0.40 [facility] Comment on above: Performed By: #### M G #### [address] [address] Eosinophils/100 WBC (Bld) 0.2 % Normal 0.0 - 6.0 [facility] Comment on above: Performed By: #### M G #### [address] [address] Erythrocyte distribution width (RBC) [Ratio] 13.9 % Normal 11.5 - 14.5 [facility] Comment on above: Performed By: #### M G #### [address] [address] Hematocrit (Bld) [Volume fraction] 48.2 % High 36.0 - 46.0 [facility] Comment on above: Performed By: #### M G #### [address] [address] Hemoglobin (Bld) [Mass/Vol] 16.0 g/dL Normal 12.0 - 16.0 [facility] Comment on above: Performed By: #### M G #### [address] [address] Lymphocytes (Bld) [#/Vol] 1.20 10*3/uL Normal 0.80 - 3.00 [facility] Comment on above: Performed By: #### M G #### [address] [address] Lymphocytes/100 WBC (Bld) 19.2 % Normal 13.0 - 44.0 [facility] Comment on above: Performed By: #### M G #### [address] [address] MCHC (RBC) [Mass/Vol] 33.1 g/dL Normal 32.0 - 36.0 [facility] Comment on above: Performed By: #### M G #### [address] [address] MCV (RBC) [Entitic vol] 86 fL Normal 80 - 100 [facility] Comment on above: Performed By: #### M G #### [address] [address] Monocytes (Bld) [#/Vol] 0.70 10*3/uL Normal 0.05 - 0.80 [facility] Comment on above: Performed By: #### M G #### [address] [address] Monocytes/100 WBC (Bld) 11.7 % Normal 2.0 - 10.0 [facility] Comment on above: Performed By: #### Luc G #### [address] [address] Neutrophils (Bld) [#/Vol] 4.30 10*3/uL Normal 1.60 - 5.50 [facility] Comment on above: Result Comment: Perc ent differential counts (%) should be interpreted in the context of the absolute cell counts (cells/L). Performed By: #### Luc G #### [address] [address] Neutrophils/100 WBC (Bld) 68.6 % Normal 40.0 - 80.0 [facility] Comment on above: Performed By: #### Luc G #### [address] [address] Platelets (Bld) [#/Vol] 204 10*3/uL Normal 150 - 450 [facility] Comment on above: Performed By: #### Luc G #### [address] [address] RBC (Bld) [#/Vol] 5.64 x10E12/L High 4.00 - 5.20 [facility] Comment on above: Performed By: #### Luc G #### [address] [address] WBC (Bld) [#/Vol] 6.3 10*3/uL Normal 4.4 - 11.3 [facility] Comment on above: Performed By: #### M G #### [address] [address] CHEST 1 VIEWon 02-13-2020 CHEST 1 VIEW Patient Name: TERRI BURCIAGA STUDY: CHEST 1 VIEW; 02/13/2020 11:18 am INDICATION: Chest Pain. COMPARISON: 12/02/2014 ACCESSION NUMBER(S): [id number] ORDERING CLINICIAN: DOTTIE CEE TECHNIQUE: A portable [...] Electronically signed by: ROSA ANNE MD Normal [facility] CORONAVIRUS 2019 BY PCRon CORONAVIRUS 2019,PCR NOT DETECTED Normal Not Detected [facility] Comment on above: Result Comment: This assay is designed to detect the ORF1ab and/or S genes of SARS-CoV-2 via nucleic acid amplification. A Not Detected result does not preclude 2019-nCoV infection since the adequacy of sample collection and/or low viral burden may result in presence of viral nucleic acids below the clinical sensitivity of this test method. Fact sheet for providers: www.fda.gov/media/945715/download Fact sheet for patients: www.fda.gov/media/715632/download This test has received FDA Emergency Use Authorization (EUA) and has been verified by [facility] ([facility]). This test is only authorized for the duration of time that circumstances exist to justify the authorization of the emergency use of in vitro diagnostic tests for the detection of SARS-CoV-2 virus and/or diagnosis of COVID-19 infection under section 564(b)(1) of the Act, 21 U.S.C. 360bbb-3(b)(1), unless the authorization is terminated or revoked sooner. [facility] is certified under CLIA-88 as qualified to perform high complexity testing. Testing is performed in the [facility] laboratories located at [address] [place] [address]. Performed By: #### C OV19 #### [address] [place] [address] Lab Specimen Source Nasal, Nasopharyngeal [facility] Comment on above: Performed By: #### C OV19 #### [facility] [address] [place] [address] Performed By: #### P TINR #### [address] [address] INFLUENZA A/B AND RSV PCRon 02-13-2020 INFLUENZA A, PCR NOT DETECTED Normal Not Detected [facility] Comment on above: Result Comment: Resp iratory virus testing is performed routinely by PCR for Influenza A/B and RSV. Not Detected results do not preclude Influenza A/B or RSV infections since the adequacy of sample collection or low viral burden may impact the clinical sensitivity of this test method. Performed By: #### P TINR #### [place] [address] INFLUENZA B, PCR NOT DETECTED Normal Not Detected [facility] Comment on above: Result Comment: Resp iratory virus testing is performed routinely by PCR for Influenza A/B and RSV. Not Detected results do not preclude Influenza A/B or RSV infections since the adequacy of sample collection or low viral burden may impact the clinical sensitivity of this test method. Performed By: #### P TINR #### [place] [address] RSV,PCR NOT DETECTED Normal Not Detected [facility] Comment on above: Result Comment: Resp iratory virus testing is performed routinely by PCR for Influenza A/B and RSV. Not Detected results do not preclude Influenza A/B or RSV infections since the adequacy of sample collection or low viral burden may impact the clinical sensitivity of this test method. Performed By: #### P TINR #### [place] [id number] MAGNESIUMon 02-13-2020 Magnesium [Mass/Vol] 2.10 mg/dL Normal 1.60 - 2.40 [facility] Comment on above: Performed By: #### M G #### [address] [address] PT/INRon 02-13-2020 INR Coag (PPP) [Relative time] 1.0 {INR} Normal 0.9 - 1.1 [facility] Comment on above: Performed By: #### P TINR #### [place] [address] [place] [address] PT Coag (PPP) [Time] 11.5 s Normal 9.7 - 12.7 [facility] Comment on above: Performed By: #### P AMADEO #### [address] [address] Provider Note - ED v2on 0 Provider Note - ED v2 Provider Note [...] VITALS: T PRBP SpO2O2(LPM) %FiO2 Method 13-Feb-2020 10:00:00-41311/75 96 room air, no respiratory support 13-Feb-2020 09:42:00-37.2457450/104 98 room air, no respiratory support Constitutional/General: [...] made to minimize errors. Minor errors in business transformation analyst may be present. Please call if questions.. [...] SIGNIFICANT EVENTS: Past Medical History Description:Hypertension (HTN) Description:KIDTREMAYNE RESULTS/VITAL SIGNS RESULTS: Recent Lab Results: I [...] SIGNS: T PRBP SpO2O2(LPM) %FiO2 Method 13-Feb-2020 10:00:00-31145/75 96 room air, no respiratory support 13-Feb-2020 09:42:00-37.0617000/104 98 room air, no respiratory support EKG [...] ill patient: no Electronic Signatures: Dottie Cee (JOSÉ LUIS) (Signed 13-Feb-2020 14:46) Authored: Provider Note - ED v2 Last Updated: 13-Feb-2020 14:46 by Dottie Cee (JOSÉ LUIS) References: 1. Data Referenced From Triage - ED 13-Feb-2020 09:42 Normal [facility] TROPONIN Ion 02-13-2020 Troponin I.cardiac [Mass/Vol] ng/mL Normal 0.00 - 0.03 [facility] Comment on above: Result Comment: LESS THAN [...] is performed using different testing methodology at [facility] than at other legacy [facility]. Direct result comparisons should only be made within the same method. 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 XR Ankle 3+ Views Righton XR Ankle 3+ Views Right Exam Date/Time: 05/13/2019 13:56 EDT Reason for Exam: Pain Report STUDY: XR Ankle 3+ Views Right; XR Foot 3+ Views Right; 05/13/2019 1:56 pm; 05/13/2019 2:04 pm INDICATION: Pain; Pain, Traumatic. COMPARISON: None. ACCESSION NUMBER(S): [id number]; [id number] ORDERING CLINICIAN: Dottie Cee TECHNIQUE: Three views [...] Signed by: Jake Combs MD Technologist: ANGELICA [facility] XR Foot 3+ Views Righton XR Foot 3+ Views Right Exam Date/Time: 05/13/2019 14:04 EDT Reason for Exam: Pain, Traumatic Report STUDY: XR Ankle 3+ Views Right; XR Foot 3+ Views Right; 05/13/2019 1:56 pm; 05/13/2019 2:04 pm INDICATION: Pain; Pain, Traumatic. COMPARISON: None. ACCESSION NUMBER(S): [id number]; [id number] ORDERING CLINICIAN: Dottie Cee TECHNIQUE: Three views [...] Signed by: Jake Combs MD Technologist: AM [facility] BLADDER SCAN [facility] Vital Signs Date Time Vital Sign Value Performing Clinician Facility 06-28-2025 15:45-0400 Diastolic blood pressure 83 mm[Hg] Trang Philippe APRN.INTELLIGENCE CHIEF Work Phone: [facility] Comment on above: recheck 06-28-2025 15:45-0400 Heart rate 63 /min Trang Philippe APRN.CNP Work Phone: [facility] 06-28-2025 15:45-0400 Systolic blood pressure 143 mm[Hg] Trang Philippe APRN.CNP Work Phone: [facility] Comment on above: recheck 06-28-2025 15:12-0400 Respiratory rate 16 /min Trang Philippe APRN.INTELLIGENCE CHIEF Work Phone: [facility] 06-28-2025 15:12-0400 SaO2% (BldA) [Mass fraction] 98 % Trang Philippe APRN.INTELLIGENCE CHIEF Work Phone: [facility] 06-26-2025 08:37-0400 Body height 149.9 cm Darshan Abarca MD Work Phone: [facility] 06-26-2025 08:37-0400 Body mass index (BMI) [Ratio] 36.76 kg/m2 Darshan Abarca MD Work Phone: [facility] 06-26-2025 08:37-0400 Body weight 82.56 kg Darshan Abarca MD Work Phone: [facility] 06-26-2025 08:37-0400 Diastolic blood pressure 74 mm[Hg] Darshan Abarca MD Work Phone: [facility] 06-26-2025 08:37-0400 Heart rate 74 /min Darshan Abarca MD Work Phone: [facility] 06-26-2025 08:37-0400 Respiratory rate 14 /min Darshan Abarca MD Work Phone: [facility] 06-26-2025 08:37-0400 SaO2% (BldA) [Mass fraction] 96 % Darshan Abarca MD Work Phone: [facility] 06-26-2025 08:37-0400 Systolic blood pressure 118 mm[Hg] Darshan Abarca MD Work Phone: [facility] 06-06-2025 12:04-0400 Body temperature 98.5 [degF] Dr. Andre Santana MD Work Phone: [facility] 06-06-2025 12:04-0400 Diastolic blood pressure 61 mm[Hg] Dr. Andre Santana MD Work Phone: 1(463)428-477710 [place] [address] 06-06-2025 12:04-0400 Heart rate 63 /min Dr. Andre Santana MD Work Phone: 2(310)667-873780 [place] [address] 06-06-2025 12:04-0400 Respiratory rate 16 /min Dr. Andre Santana MD Work Phone: 7(883)054-116880 [place] [address] 06-06-2025 12:04-0400 SaO2% (BldA) [Mass fraction] 97 % Dr. Andre Santana MD Work Phone: 0(801)987-827480 [place] [address] 06-06-2025 12:04-0400 Systolic blood pressure 116 mm[Hg] Dr. Andre Santana MD Work Phone: 9(398)329-419780 [place] [address] 06-05-2025 11:15-0400 Body height 149.[address] Andre Santana MD Work Phone: 1(035)188-903580 [place] [address] 06-05-2025 11:15-0400 Body mass index (BMI) [Ratio] 36.6 kg/m2 Dr. Andre Santana MD Work Phone: 5(279)625-086680 [place] [address] 06-05-2025 11:15-0400 Body weight 82.[address] Andre Santana MD Work Phone: 1(755)259-033880 [place] [address] 06-05-2025 10:56-0400 Body temperature 97 [degF] Dr. Andre Santana MD Work Phone: 7(389)566-974780 [place] [address] 06-05-2025 10:56-0400 Diastolic blood pressure 82 mm[Hg] Dr. Andre Santana MD Work Phone: 3(438)358-087280 [place] [address] 06-05-2025 10:56-0400 Heart rate 81 /min Dr. Andre Santana MD Work Phone: 0(538)793-979080 [place] [address] 06-05-2025 10:56-0400 Respiratory rate 17 /min Dr. Andre Santana MD Work Phone: 4(639)825-556780 [place] [address] 06-05-2025 10:56-0400 SaO2% (BldA) [Mass fraction] 97 % Dr. Andre Santana MD Work Phone: 0(867)233-743980 [place] [address] 06-05-2025 10:56-0400 Systolic blood pressure 159 mm[Hg] Dr. Andre Santana MD Work Phone: [facility] 06-05-2025 05:37-0400 Body height 149.[address] Andre Santana MD Work Phone: [facility] 06-05-2025 05:37-0400 Body mass index (BMI) [Ratio] 37.5 kg/m2 Dr. Andre Santana MD Work Phone: [facility] 06-05-2025 05:37-0400 Body weight 84.[address] Andre Santana MD Work Phone: [facility] 05-16-2025 16:14-0400 Body mass index (BMI) [Ratio] 37.16 kg/m2 Andre Santana MD Work Phone: [facility] 05-16-2025 16:14-0400 Body weight 83.46 kg Andre Santana MD Work Phone: [facility] 05-16-2025 16:14-0400 Diastolic blood pressure 62 mm[Hg] Andre Santana MD Work Phone: [facility] 05-16-2025 16:14-0400 Heart rate 71 /min Andre Santana MD Work Phone: [facility] 05-16-2025 16:14-0400 SaO2% (BldA) [Mass fraction] 97 % Andre Santana MD Work Phone: [facility] 05-16-2025 16:14-0400 Systolic blood pressure 122 mm[Hg] Andre Santana MD Work Phone: [facility] 04-17-2025 17:10-0400 Body mass index (BMI) [Ratio] 36.15 kg/m2 Andre Santana MD Work Phone: [facility] 04-17-2025 17:10-0400 Body weight 81.19 kg Andre Santana MD Work Phone: [facility] 04-17-2025 17:10-0400 Diastolic blood pressure 82 mm[Hg] Andre Santana MD Work Phone: [facility] 04-17-2025 17:10-0400 Heart rate 67 /min Andre Santana MD Work Phone: [facility] 04-17-2025 17:10-0400 SaO2% (BldA) [Mass fraction] 97 % Andre Santana MD Work Phone: [facility] 04-17-2025 17:10-0400 Systolic blood pressure 138 mm[Hg] Andre Santana MD Work Phone: [facility] 03-07-2025 14:17-0400 Body height 149.9 cm Tulio Calderón MD Work Phone: [facility] 03-07-2025 14:17-0400 Body mass index (BMI) [Ratio] 36.15 kg/m2 Tulio Calderón MD Work Phone: [facility] 03-07-2025 14:17-0400 Body weight 81.19 kg Tulio Calderón MD Work Phone: [facility] 03-07-2025 14:17-0400 Diastolic blood pressure 72 mm[Hg] Tulio Calderón MD Work Phone: [facility] 03-07-2025 14:17-0400 Heart rate 75 /min Tulio Calderón MD Work Phone: [facility] 03-07-2025 14:17-0400 Respiratory rate 19 /min Tulio Calderón MD Work Phone: [facility] 03-07-2025 14:17-0400 SaO2% (BldA) [Mass fraction] 97 % Tulio Calderón MD Work Phone: [facility] 03-07-2025 14:17-0400 Systolic blood pressure 110 mm[Hg] Tulio Calderón MD Work Phone: [facility] 02-28-2025 16:49-0400 Body temperature 97 [degF] Dr. Andre Santana MD Work Phone: 0(662)903-156810 [place] [address] 02-28-2025 16:49-0400 Diastolic blood pressure 75 mm[Hg] Dr. Andre Santana MD Work Phone: 9(215)534-199480 [place] [address] 02-28-2025 16:49-0400 Heart rate 80 /min Dr. Andre Santana MD Work Phone: 8(884)560-167480 [place] [address] 02-28-2025 16:49-0400 Respiratory rate 18 /min Dr. Andre Santana MD Work Phone: 5(200)537-014180 [place] [address] 02-28-2025 16:49-0400 SaO2% (BldA) [Mass fraction] 98 % Dr. Andre Santana MD Work Phone: 9(221)728-865680 [place] [address] 02-28-2025 16:49-0400 Systolic blood pressure 128 mm[Hg] Dr. Andre Santana MD Work Phone: 3(190)225-505280 [place] [address] 02-28-2025 13:12-0400 Body mass index (BMI) [Ratio] 37.4 kg/m2 Dr. Andre Santana MD Work Phone: 5(119)765-308680 [place] [address] 02-28-2025 13:12-0400 Body weight 81.[address] Andre Santana MD Work Phone: 2(437)301-333680 [place] [address] 02-06-2025 13:16-0400 Body height 149.9 cm Tulio Calderón MD Work Phone: 6(474)399-347031 [place] [address] 02-06-2025 13:16-0400 Body mass index (BMI) [Ratio] 35.83 kg/m2 Tulio Calderón MD Work Phone: 5(626)843-473831 [place] [address] 02-06-2025 13:16-0400 Body weight 80.47 kg Tulio Calderón MD Work Phone: 2(743)008-936131 [place] [address] 02-06-2025 13:16-0400 Diastolic blood pressure 82 mm[Hg] Tulio Calderón MD Work Phone: 7(287)343-778531 [place] [address] 02-06-2025 13:16-0400 Heart rate 68 /min Tulio Calderón MD Work Phone: [facility] 02-06-2025 13:16-0400 Respiratory rate 20 /min Tulio Calderón MD Work Phone: [facility] 02-06-2025 13:16-0400 SaO2% (BldA) [Mass fraction] 98 % Tulio Calderón MD Work Phone: [facility] 02-06-2025 13:16-0400 Systolic blood pressure 138 mm[Hg] Tulio Calderón MD Work Phone: [facility] 01-12-2025 08:29-0500 Body height 149.[address] Andre Santana MD Work Phone: [facility] 01-12-2025 08:29-0500 Body weight 79.[address] Andre Santana MD Work Phone: [facility] 12-15-2024 13:49-0500 Body height 149.9 cm Maren Rhodes MD Work Phone: [facility] 12-15-2024 13:49-0500 Body mass index (BMI) [Ratio] 34.73 kg/m2 Maren Rhodes MD Work Phone: [facility] 12-15-2024 13:49-0500 Body weight 78 kg Maren Rhodes MD Work Phone: [facility] 12-15-2024 13:49-0500 Diastolic blood pressure 78 mm[Hg] Maren Rhodes MD Work Phone: [facility] 12-15-2024 13:49-0500 Heart rate 64 /min Maren Rhodes MD Work Phone: [facility] 12-15-2024 13:49-0500 SaO2% (BldA) [Mass fraction] 97 % Maren Rhodes MD Work Phone: [facility] 12-15-2024 13:49-0500 Systolic blood pressure 119 mm[Hg] Maren Rhodes MD Work Phone: [facility] 12-15-2024 08:03-0500 Body weight 78.[address] Andre Santana MD Work Phone: [facility] 12-09-2024 15:10-0500 Body height 149.9 cm Jacquie Evans MD Work Phone: [facility] 12-09-2024 15:10-0500 Body mass index (BMI) [Ratio] 35.35 kg/m2 Jacquie Evans MD Work Phone: [facility] 12-09-2024 15:10-0500 Body weight 79.38 kg Jacquie Evans MD Work Phone: [facility] 12-09-2024 15:10-0500 Diastolic blood pressure 84 mm[Hg] Jacquie Evans MD Work Phone: [facility] 12-09-2024 15:10-0500 Heart rate 64 /min Jacquie Evans MD Work Phone: [facility] 12-09-2024 15:10-0500 Respiratory rate 14 /min Jacquie Evans MD Work Phone: [facility] 12-09-2024 15:10-0500 SaO2% (BldA) [Mass fraction] 99 % Jacquie Evans MD Work Phone: [facility] 12-09-2024 15:10-0500 Systolic blood pressure 136 mm[Hg] Jacquie Evans MD Work Phone: [facility] 11-23-2024 15:44-0500 Body height 149.9 cm Andre Santana MD Work Phone: [facility] 11-23-2024 15:44-0500 Body mass index (BMI) [Ratio] 34.74 kg/m2 Andre Santana MD Work Phone: [facility] 11-23-2024 15:44-0500 Body weight 78.02 kg Andre Santana MD Work Phone: [facility] 11-23-2024 15:44-0500 Diastolic blood pressure 81 mm[Hg] Andre Santana MD Work Phone: [facility] 11-23-2024 15:44-0500 Heart rate 62 /min Andre Santana MD Work Phone: [facility] 11-23-2024 15:44-0500 Systolic blood pressure 138 mm[Hg] Andre Santana MD Work Phone: [facility] 11-17-2024 07:44-0500 Body weight 78.[address] Andre Santana MD Work Phone: [facility] 10-17-2024 14:53-0500 Body mass index (BMI) [Ratio] 34.1 kg/m2 Dr. Andre Santana MD Work Phone: [facility] 10-17-2024 14:53-0500 Heart rate 59 /min Dr. Andre Santana MD Work Phone: [facility] 10-17-2024 14:53-0500 SaO2% (BldA) [Mass fraction] 98 % Dr. Andre Santana MD Work Phone: [facility] 10-17-2024 14:43-0500 Body weight 76.[address] Andre Santana MD Work Phone: [facility] 10-03-2024 14:26-0500 Body mass index (BMI) [Ratio] 35.14 kg/m2 Darshan Abarca MD Work Phone: [facility] 10-03-2024 14:26-0500 Body weight 78.93 kg Darshan Abarca MD Work Phone: [facility] 10-03-2024 14:26-0500 Diastolic blood pressure 80 mm[Hg] Darshan Abarca MD Work Phone: [facility] 10-03-2024 14:26-0500 Heart rate 71 /min Darshan Abarca MD Work Phone: [facility] 10-03-2024 14:26-0500 SaO2% (BldA) [Mass fraction] 99 % Darshan Abarca MD Work Phone: [facility] 10-03-2024 14:26-0500 Systolic blood pressure 122 mm[Hg] Darshan Abarca MD Work Phone: [facility] 09-20-2024 22:19-0500 Diastolic blood pressure 85 mm[Hg] Andre Santana MD Work Phone: [facility] 09-20-2024 22:19-0500 Heart rate 80 /min Andre Santana MD Work Phone: [facility] 09-20-2024 22:19-0500 Respiratory rate 18 /min Andre Santana MD Work Phone: [facility] 09-20-2024 22:19-0500 SaO2% (BldA) [Mass fraction] 96 % Andre Santana MD Work Phone: [facility] 09-20-2024 22:19-0500 Systolic blood pressure 182 mm[Hg] Andre Santana MD Work Phone: [facility] 09-20-2024 20:21-0500 Body temperature 98.29 [degF] Andre Santana MD Work Phone: [facility] 09-20-2024 20:21-0500 Body weight 76.66 kg Andre Santana MD Work Phone: [facility] 09-15-2024 13:29-0500 Body mass index (BMI) [Ratio] 35.09 kg/m2 Sandy Suppan SECTION WEAVER.INTELLIGENCE CHIEF Work Phone: [facility] 09-15-2024 13:29-0500 Body weight 78.8 kg Sandy Suppan SECTION WEAVER.INTELLIGENCE CHIEF Work Phone: [facility] 09-15-2024 13:29-0500 Diastolic blood pressure 70 mm[Hg] Sandy Suppan SECTION WEAVER.INTELLIGENCE CHIEF Work Phone: [facility] 09-15-2024 13:29-0500 Heart rate 68 /min Sandy Suppan SECTION WEAVER.INTELLIGENCE CHIEF Work Phone: [facility] 09-15-2024 13:29-0500 Respiratory rate 16 /min Sandy Suppan SECTION WEAVER.INTELLIGENCE CHIEF Work Phone: [facility] 09-15-2024 13:29-0500 SaO2% (BldA) [Mass fraction] 98 % Sandy Suppan SECTION WEAVER.INTELLIGENCE CHIEF Work Phone: [facility] 09-15-2024 13:29-0500 Systolic blood pressure 134 mm[Hg] Sandy Suppan SECTION WEAVER.INTELLIGENCE CHIEF Work Phone: [facility] 09-12-2024 18:37-0500 Diastolic blood pressure 90 mm[Hg] Trang Haagen SECTION WEAVER.INTELLIGENCE CHIEF Work Phone: [facility] Comment on above: RUTH BP 09-12-2024 18:37-0500 Heart rate 74 /min Trang Haagen SECTION WEAVER.INTELLIGENCE CHIEF Work Phone: [facility] 09-12-2024 18:37-0500 Systolic blood pressure 175 mm[Hg] Trang Haagen SECTION WEAVER.INTELLIGENCE CHIEF Work Phone: [facility] Comment on above: RUTH BP 09-12-2024 18:28-0500 Respiratory rate 16 /min Trang Haagen SECTION WEAVER.INTELLIGENCE CHIEF Work Phone: [facility] 09-12-2024 18:28-0500 SaO2% (BldA) [Mass fraction] 97 % Trang Haagen SECTION WEAVER.INTELLIGENCE CHIEF Work Phone: [facility] 08-12-2024 14:28-0400 Body height 149.9 cm Andre Santana MD Work Phone: [facility] 08-12-2024 14:28-0400 Body mass index (BMI) [Ratio] 34.78 kg/m2 Andre Santana MD Work Phone: [facility] 08-12-2024 14:28-0400 Body weight 78.11 kg Andre Santana MD Work Phone: [facility] 08-12-2024 14:28-0400 Diastolic blood pressure 84 mm[Hg] Andre Santana MD Work Phone: [facility] 08-12-2024 14:28-0400 Heart rate 80 /min Andre Santana MD Work Phone: [facility] 08-12-2024 14:28-0400 SaO2% (BldA) [Mass fraction] 98 % Andre Santana MD Work Phone: [facility] 08-12-2024 14:28-0400 Systolic blood pressure 118 mm[Hg] Andre Santana MD Work Phone: [facility] 08-09-2024 13:17-0400 Body mass index (BMI) [Ratio] 35.13 kg/m2 Krislyn Aberegg PA Work Phone: [facility] 08-09-2024 13:17-0400 Body temperature 99 [degF] Krislyn Aberegg PA Work Phone: [facility] 08-09-2024 13:17-0400 Body weight 78.9 kg Krislyn Aberegg PA Work Phone: [facility] 08-09-2024 13:17-0400 Diastolic blood pressure 88 mm[Hg] Krislyn Aberegg PA Work Phone: [facility] 08-09-2024 13:17-0400 Heart rate 76 /min Krislyn Aberegg PA Work Phone: [facility] 08-09-2024 13:17-0400 Respiratory rate 16 /min Krislyn Aberegg PA Work Phone: [facility] 08-09-2024 13:17-0400 SaO2% (BldA) [Mass fraction] 98 % Krislyn Aberegg PA Work Phone: [facility] 08-09-2024 13:17-0400 Systolic blood pressure 128 mm[Hg] Krislyn Aberegg PA Work Phone: [facility] 07-26-2024 09:12-0400 Diastolic blood pressure 92 mm[Hg] Anitha Pacheco DO Work Phone: [facility] Comment on above: pt has not taken BP meds yet today 07-26-2024 09:12-0400 Heart rate 73 /min Anitha Pacheco DO Work Phone: [facility] 07-26-2024 09:12-0400 SaO2% (BldA) [Mass fraction] 98 % Anitha Pacheco DO Work Phone: [facility] 07-26-2024 09:12-0400 Systolic blood pressure 167 mm[Hg] Anitha Pacheco DO Work Phone: [facility] Comment on above: pt has not taken BP meds yet today 07-25-2024 10:27-0400 Body height 149.9 cm Darshan Abarca MD Work Phone: [facility] 07-25-2024 10:27-0400 Body mass index (BMI) [Ratio] 34.54 kg/m2 Darshan Abarca MD Work Phone: [facility] 07-25-2024 10:27-0400 Body weight 77.56 kg Darshan Abarca MD Work Phone: [facility] 07-25-2024 10:27-0400 Diastolic blood pressure 83 mm[Hg] Darshan Abarca MD Work Phone: [facility] 07-25-2024 10:27-0400 Heart rate 72 /min Darshan Abarca MD Work Phone: [facility] 07-25-2024 10:27-0400 SaO2% (BldA) [Mass fraction] 98 % Darshan Abarca MD Work Phone: [facility] 07-25-2024 10:27-0400 Systolic blood pressure 133 mm[Hg] Darshan Abarca MD Work Phone: [facility] 07-18-2024 15:27-0400 Body mass index (BMI) [Ratio] 34.94 kg/m2 Sandy Holm APRN.CNP Work Phone: [facility] 07-18-2024 15:27-0400 Body weight 78.47 kg Sandy Suppan SECTION WEAVER.INTELLIGENCE CHIEF Work Phone: [facility] 07-18-2024 15:27-0400 Diastolic blood pressure 80 mm[Hg] Sandy Suppan SECTION WEAVER.INTELLIGENCE CHIEF Work Phone: [facility] 07-18-2024 15:27-0400 Heart rate 78 /min Sandy Suppan SECTION WEAVER.INTELLIGENCE CHIEF Work Phone: [facility] 07-18-2024 15:27-0400 Respiratory rate 18 /min Sandy Suppan SECTION WEAVER.INTELLIGENCE CHIEF Work Phone: [facility] 07-18-2024 15:27-0400 SaO2% (BldA) [Mass fraction] 97 % Sandy Suppan SECTION WEAVER.INTELLIGENCE CHIEF Work Phone: [facility] 07-18-2024 15:27-0400 Systolic blood pressure 124 mm[Hg] Sandy Suppan SECTION WEAVER.INTELLIGENCE CHIEF Work Phone: [facility] 06-08-2024 15:55-0400 Body mass index (BMI) [Ratio] 36.74 kg/m2 Aris Stephenson SECTION WEAVER.INTELLIGENCE CHIEF Work Phone: [facility] 06-08-2024 15:55-0400 Body temperature 98.29 [degF] Aris Stephenson SECTION WEAVER.INTELLIGENCE CHIEF Work Phone: [facility] 06-08-2024 15:55-0400 Body weight 82.5 kg Aris Stephenson SECTION WEAVER.INTELLIGENCE CHIEF Work Phone: [facility] 06-08-2024 15:55-0400 Diastolic blood pressure 84 mm[Hg] Aris Stephenson SECTION WEAVER.INTELLIGENCE CHIEF Work Phone: [facility] 06-08-2024 15:55-0400 Heart rate 94 /min Aris Stephenson SECTION WEAVER.INTELLIGENCE CHIEF Work Phone: [facility] 06-08-2024 15:55-0400 Respiratory rate 20 /min Aris Stephenson SECTION WEAVER.INTELLIGENCE CHIEF Work Phone: [facility] 06-08-2024 15:55-0400 SaO2% (BldA) [Mass fraction] 98 % Aris Stephenson SECTION WEAVER.INTELLIGENCE CHIEF Work Phone: [facility] 06-08-2024 15:55-0400 Systolic blood pressure 140 mm[Hg] Aris Stephenson SECTION WEAVER.INTELLIGENCE CHIEF Work Phone: [facility] 06-02-2024 11:08-0400 Body mass index (BMI) [Ratio] 35.95 kg/m2 Sandy Suppan SECTION WEAVER.INTELLIGENCE CHIEF Work Phone: [facility] 06-02-2024 11:08-0400 Body weight 80.74 kg Sandy Suppan SECTION WEAVER.INTELLIGENCE CHIEF Work Phone: [facility] 06-02-2024 11:08-0400 Diastolic blood pressure 76 mm[Hg] Sandy Suppan SECTION WEAVER.INTELLIGENCE CHIEF Work Phone: [facility] 06-02-2024 11:08-0400 Heart rate 80 /min Sandy Suppan SECTION WEAVER.INTELLIGENCE CHIEF Work Phone: [facility] 06-02-2024 11:08-0400 SaO2% (BldA) [Mass fraction] 98 % Sandy Suppan SECTION WEAVER.INTELLIGENCE CHIEF Work Phone: [facility] 06-02-2024 11:08-0400 Systolic blood pressure 128 mm[Hg] Sandy Suppan SECTION WEAVER.INTELLIGENCE CHIEF Work Phone: [facility] 02-22-2024 14:22-0400 Body height 149.9 cm Anitra Juarez MD Work Phone: [facility] 02-22-2024 14:22-0400 Body weight 82.56 kg Anitra Juarez MD Work Phone: [facility] 02-22-2024 14:22-0400 Diastolic blood pressure 84 mm[Hg] Anitra Juarez MD Work Phone: [facility] 02-22-2024 14:22-0400 Heart rate 93 /min Anitra Juarez MD Work Phone: [facility] 02-22-2024 14:22-0400 Respiratory rate 18 /min Anitra Juarez MD Work Phone: [facility] 02-22-2024 14:22-0400 Systolic blood pressure 135 mm[Hg] Anitra Juarez MD Work Phone: [facility] 01-20-2024 15:41-0400 Body temperature 99.19 [degF] Aris Stephenson SECTION WEAVER.INTELLIGENCE CHIEF Work Phone: [facility] 01-20-2024 15:41-0400 Body weight 83.8 kg Aris Sachin SECTION WEAVER.INTELLIGENCE CHIEF Work Phone: [facility] 01-20-2024 15:41-0400 Diastolic blood pressure 84 mm[Hg] Aris Sachin SECTION WEAVER.INTELLIGENCE CHIEF Work Phone: [facility] 01-20-2024 15:41-0400 Heart rate 96 /min Aris Stephenson SECTION WEAVER.INTELLIGENCE CHIEF Work Phone: [facility] 01-20-2024 15:41-0400 Respiratory rate 18 /min Aris Sachin SECTION WEAVER.INTELLIGENCE CHIEF Work Phone: [facility] 01-20-2024 15:41-0400 SaO2% (BldA) [Mass fraction] 99 % Aris Sachin SECTION WEAVER.INTELLIGENCE CHIEF Work Phone: [facility] 01-20-2024 15:41-0400 Systolic blood pressure 144 mm[Hg] Aris Stephenson SECTION WEAVER.INTELLIGENCE CHIEF Work Phone: [facility] 12-10-2023 14:15-0500 Diastolic blood pressure 84 mm[Hg] Maren Rhodes MD Work Phone: [facility] 12-10-2023 14:15-0500 Systolic blood pressure 144 mm[Hg] Maren Rhodes MD Work Phone: [facility] 12-10-2023 14:14-0500 Body temperature 97.81 [degF] Maren Rhodes MD Work Phone: [facility] 12-10-2023 14:14-0500 Heart rate 82 /min Maren Rhodes MD Work Phone: [facility] 10-19-2023 14:34-0500 Body weight 83.92 kg Darshan Abarca MD Work Phone: [facility] 10-19-2023 14:34-0500 Diastolic blood pressure 86 mm[Hg] Darshan Abarca MD Work Phone: [facility] 10-19-2023 14:34-0500 Heart rate 77 /min Darshan Abarca MD Work Phone: [facility] 10-19-2023 14:34-0500 Respiratory rate 16 /min Darshan Abarca MD Work Phone: [facility] 10-19-2023 14:34-0500 SaO2% (BldA) [Mass fraction] 98 % Darshan Abarca MD Work Phone: [facility] 10-19-2023 14:34-0500 Systolic blood pressure 150 mm[Hg] Darshan Abarca MD Work Phone: [facility] 09-08-2023 15:00-0400 Body weight 86.18 kg NA Faustin PA-C Work Phone: [facility] 09-08-2023 15:00-0400 Diastolic blood pressure 80 mm[Hg] NA Faustin PA-C Work Phone: [facility] 09-08-2023 15:00-0400 Heart rate 81 /min NA Faustin PA-C Work Phone: [facility] 09-08-2023 15:00-0400 Respiratory rate 16 /min NA Faustin PA-C Work Phone: [facility] 09-08-2023 15:00-0400 SaO2% (BldA) [Mass fraction] 97 % NA Faustin PA-C Work Phone: [facility] 09-08-2023 15:00-0400 Systolic blood pressure 152 mm[Hg] NA Faustin PA-C Work Phone: [facility] 08-25-2023 16:10-0400 Body height 149.9 cm Evan Johnson PA-C Work Phone: [facility] 08-25-2023 16:10-0400 Body temperature 98.01 [degF] Evan Johnson PA-C Work Phone: [facility] 08-25-2023 16:10-0400 Body weight 87 kg Evan Johnson PA-C Work Phone: [facility] 08-25-2023 16:10-0400 Diastolic blood pressure 98 mm[Hg] Evan Johnson PA-C Work Phone: [facility] 08-25-2023 16:10-0400 Heart rate 74 /min Evan Johnson PA-C Work Phone: [facility] 08-25-2023 16:10-0400 Respiratory rate 14 /min Evan Johnson PA-C Work Phone: [facility] 08-25-2023 16:10-0400 SaO2% (BldA) [Mass fraction] 100 % Evan Johnson PA-C Work Phone: [facility] 08-25-2023 16:10-0400 Systolic blood pressure 166 mm[Hg] Evan Johnson PA-C Work Phone: [facility] 08-17-2023 11:56-0400 Diastolic blood pressure 88 mm[Hg] Angelika Podlogar SECTION WEAVER.INTELLIGENCE CHIEF Work Phone: [facility] 08-17-2023 11:56-0400 Heart rate 70 /min Angelika Podlogar SECTION WEAVER.INTELLIGENCE CHIEF Work Phone: [facility] 08-17-2023 11:56-0400 Respiratory rate 16 /min Angelika Podlogar SECTION WEAVER.INTELLIGENCE CHIEF Work Phone: [facility] 08-17-2023 11:56-0400 SaO2% (BldA) [Mass fraction] 96 % Angelika Podlogar SECTION WEAVER.INTELLIGENCE CHIEF Work Phone: [facility] 08-17-2023 11:56-0400 Systolic blood pressure 144 mm[Hg] Angelika Podlogar SECTION WEAVER.INTELLIGENCE CHIEF Work Phone: [facility] 08-17-2023 11:16-0400 Diastolic blood pressure 88 mm[Hg] Angelika Podlogar SECTION WEAVER.INTELLIGENCE CHIEF Work Phone: [facility] 08-17-2023 11:16-0400 Heart rate 70 /min Angelika Podlogar SECTION WEAVER.INTELLIGENCE CHIEF Work Phone: [facility] 08-17-2023 11:16-0400 Respiratory rate 16 /min Angelika Podlogar SECTION WEAVER.INTELLIGENCE CHIEF Work Phone: [facility] 08-17-2023 11:16-0400 SaO2% (BldA) [Mass fraction] 96 % Angelika Podlogar SECTION WEAVER.INTELLIGENCE CHIEF Work Phone: [facility] 08-17-2023 11:16-0400 Systolic blood pressure 144 mm[Hg] Angelika Podlogar SECTION WEAVER.INTELLIGENCE CHIEF Work Phone: [facility] 08-03-2023 14:38-0400 Body height 149.9 cm Jacquie Evans MD Work Phone: [facility] 08-03-2023 14:38-0400 Body weight 85.73 kg Jacquie Evans MD Work Phone: [facility] 08-03-2023 14:38-0400 Diastolic blood pressure 88 mm[Hg] Jacquie Evans MD Work Phone: [facility] 08-03-2023 14:38-0400 Heart rate 75 /min Jacquie Evans MD Work Phone: [facility] 08-03-2023 14:38-0400 Respiratory rate 16 /min Jacquie Evans MD Work Phone: [facility] 08-03-2023 14:38-0400 SaO2% (BldA) [Mass fraction] 97 % Jacquie Evans MD Work Phone: [facility] 08-03-2023 14:38-0400 Systolic blood pressure 138 mm[Hg] Jacquie Evasn MD Work Phone: [facility] 07-16-2023 16:23-0400 Body weight 86.18 kg NA Faustin PA-C Work Phone: [facility] 07-16-2023 16:23-0400 Diastolic blood pressure 88 mm[Hg] NA Faustin PA-C Work Phone: [facility] 07-16-2023 16:23-0400 Heart rate 75 /min NA Faustin PA-C Work Phone: [facility] 07-16-2023 16:23-0400 SaO2% (BldA) [Mass fraction] 97 % NA Faustin PA-C Work Phone: [facility] 07-16-2023 16:23-0400 Systolic blood pressure 138 mm[Hg] NA Faustin PA-C Work Phone: [facility] 06-17-2023 13:32-0400 Diastolic blood pressure 86 mm[Hg] Angelika Podlogar SECTION WEAVER.INTELLIGENCE CHIEF Work Phone: [facility] 06-17-2023 13:32-0400 Heart rate 89 /min Angelika Podlogar SECTION WEAVER.INTELLIGENCE CHIEF Work Phone: [facility] 06-17-2023 13:32-0400 Systolic blood pressure 163 mm[Hg] Angelika Podlogar SECTION WEAVER.INTELLIGENCE CHIEF Work Phone: [facility] 06-17-2023 13:02-0400 Body weight 86.09 kg Angelika Podlogar SECTION WEAVER.INTELLIGENCE CHIEF Work Phone: [facility] 06-17-2023 13:02-0400 Respiratory rate 16 /min Angelika Podlogar SECTION WEAVER.INTELLIGENCE CHIEF Work Phone: [facility] 06-17-2023 13:02-0400 SaO2% (BldA) [Mass fraction] 98 % Angelika Podlogar SECTION WEAVER.INTELLIGENCE CHIEF Work Phone: [facility] 11-28-2022 14:21-0500 Body height 147.3 cm Maren Rhodes MD Work Phone: [facility] 11-28-2022 14:21-0500 Body temperature 97.59 [degF] Maren Rhodes MD Work Phone: [facility] 11-28-2022 14:21-0500 Body weight 79.38 kg Maren Rhodes MD Work Phone: [facility] 11-28-2022 14:21-0500 Diastolic blood pressure 86 mm[Hg] Maren Rhodes MD Work Phone: [facility] 11-28-2022 14:21-0500 Heart rate 84 /min Maren Rhodes MD Work Phone: [facility] 11-28-2022 14:21-0500 Systolic blood pressure 122 mm[Hg] Maren Rhodes MD Work Phone: [facility] 10-23-2022 14:14-0500 Heart rate 71 /min Daisha Junior SECTION WEAVER.INTELLIGENCE CHIEF Work Phone: [facility] 10-23-2022 14:14-0500 Respiratory rate 16 /min Daisha Junior SECTION WEAVER.INTELLIGENCE CHIEF Work Phone: [facility] 10-23-2022 14:14-0500 SaO2% (BldA) [Mass fraction] 96 % Daisha Junior SECTION WEAVER.INTELLIGENCE CHIEF Work Phone: [facility] 09-23-2022 13:00-0500 Body height 149.9 cm Ivan Alvarez Jr., MD Work Phone: [facility] 09-23-2022 13:00-0500 Body weight 82.56 kg Ivan Alvarez Jr., MD Work Phone: [facility] 09-15-2022 14:24-0500 Body weight 83.01 kg NA Faustin PA-C Work Phone: [facility] 09-15-2022 14:24-0500 Diastolic blood pressure 70 mm[Hg] NA Faustin PA-C Work Phone: [facility] 09-15-2022 14:24-0500 Heart rate 98 /min NA Faustin PA-C Work Phone: [facility] 09-15-2022 14:24-0500 Respiratory rate 16 /min NA Faustin PA-C Work Phone: [facility] 09-15-2022 14:24-0500 SaO2% (BldA) [Mass fraction] 97 % NA Faustin PA-C Work Phone: [facility] 09-15-2022 14:24-0500 Systolic blood pressure 138 mm[Hg] NA Faustin PA-C Work Phone: [facility] 09-02-2022 16:07-0400 Body weight 84.73 kg NA Faustin PA-C Work Phone: [facility] 08-11-2022 15:04-0400 Body weight 87.54 kg NA Faustin PA-C Work Phone: [facility] 08-11-2022 15:04-0400 Diastolic blood pressure 74 mm[Hg] NA Faustin PA-C Work Phone: [facility] 08-11-2022 15:04-0400 Heart rate 78 /min NA Faustin PA-C Work Phone: [facility] 08-11-2022 15:04-0400 Respiratory rate 16 /min NA Faustin PA-C Work Phone: [facility] 08-11-2022 15:04-0400 SaO2% (BldA) [Mass fraction] 97 % NA Faustin PA-C Work Phone: [facility] 08-11-2022 15:04-0400 Systolic blood pressure 122 mm[Hg] NA Faustin PA-C Work Phone: [facility] 07-30-2022 16:00-0400 Body temperature 97.39 [degF] Venessa Rosa MD Work Phone: [facility] 07-30-2022 16:00-0400 Diastolic blood pressure 78 mm[Hg] Venessa Rosa MD Work Phone: [facility] 07-30-2022 16:00-0400 Heart rate 81 /min Venessa Rosa MD Work Phone: [facility] 07-30-2022 16:00-0400 SaO2% (BldA) [Mass fraction] 96 % Venessa Rosa MD Work Phone: [facility] 07-30-2022 16:00-0400 Systolic blood pressure 130 mm[Hg] Venessa Rosa MD Work Phone: [facility] 07-28-2022 16:10-0400 Body height 147.3 cm Elissa Padminia SECTION WEAVER.INTELLIGENCE CHIEF Work Phone: [facility] 07-28-2022 16:10-0400 Body weight 86.64 kg Elissa Washingtona SECTION WEAVER.INTELLIGENCE CHIEF Work Phone: [facility] 07-07-2022 15:58-0400 Body height 147.3 cm Venessa Rosa MD Work Phone: [facility] 07-07-2022 15:58-0400 Body temperature 97.7 [degF] Venessa Rosa MD Work Phone: [facility] 07-07-2022 15:58-0400 Body weight 88 kg Venessa Rosa MD Work Phone: [facility] 07-07-2022 15:58-0400 Diastolic blood pressure 72 mm[Hg] Venessa Rosa MD Work Phone: [facility] 07-07-2022 15:58-0400 Heart rate 97 /min Venessa Rosa MD Work Phone: [facility] 07-07-2022 15:58-0400 SaO2% (BldA) [Mass fraction] 97 % eVnessa Rosa MD Work Phone: [facility] 07-07-2022 15:58-0400 Systolic blood pressure 124 mm[Hg] Venessa Rosa MD Work Phone: [facility] 07-01-2022 15:43-0400 Body weight 88 kg NA Faustin PA-C Work Phone: [facility] 07-01-2022 15:43-0400 Diastolic blood pressure 78 mm[Hg] NA Faustin PA-C Work Phone: [facility] 07-01-2022 15:43-0400 Heart rate 90 /min NA Faustin PA-C Work Phone: [facility] 07-01-2022 15:43-0400 Respiratory rate 16 /min NA Faustin PA-C Work Phone: [facility] 07-01-2022 15:43-0400 SaO2% (BldA) [Mass fraction] 97 % NA Faustin PA-C Work Phone: [facility] 07-01-2022 15:43-0400 Systolic blood pressure 130 mm[Hg] NA Faustin PA-C Work Phone: [facility] 04-22-2022 15:03-0400 Body height 146.1 cm Shirin Draper SECTION WEAVER.INTELLIGENCE CHIEF Work Phone: [facility] 04-22-2022 15:03-0400 Body weight 85.73 kg Shirin Baron SECTION WEAVER.INTELLIGENCE CHIEF Work Phone: [facility] 04-22-2022 15:03-0400 Diastolic blood pressure 78 mm[Hg] Shirin Brunsdon SECTION WEAVER.INTELLIGENCE CHIEF Work Phone: [facility] 04-22-2022 15:03-0400 Systolic blood pressure 128 mm[Hg] Shirin Brunsdcristobal SECTION WEAVER.INTELLIGENCE CHIEF Work Phone: [facility] 02-25-2022 14:46-0400 Body weight 85.73 kg Jacquie Evans MD Work Phone: [facility] Encounters Encounter Date Encounter Type Care Provider Facility Start: 07-05-2025 End: 07-05-2025 Telephone encounter Andre Santana MD Work Phone: [facility] Comment on above: Results Start: 07-04-2025 End: 07-04-2025 ambulatory ANDRE SANTANA Facility:[facility] Start: 06-29-2025 End: 06-30-2025 Telephone encounter Andre Santana MD Work Phone: Family Medicine [facility] Comment on above: Results Start: 06-28-2025 End: 06-28-2025 Office outpatient visit 15 minutes Trang Philippe JOSEPH Work Phone: [facility] Comment on above: Traumatic hematoma o f forehead, subsequent encounter (Primary Dx) Start: 06-28-2025 End: 06-28-2025 ambulatory [facility] Facility:[facility] Start: 06-28-2025 End: 06-28-2025 Subsequent hospital visit by physician [employer] [facility] (I-Stat/1.5t) Work Phone: Radiology Comment on above: Dysphasia [R47.02] Start: 06-26-2025 End: 06-26-2025 Patient encounter procedure Darshan Abarca MD Work Phone: Cardiology Comment on above: Presence of coronary angioplasty implant and graft; Solitary thyroid nodule; detention (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 antithrombotics/antiplatelets Start: 06-26-2025 End: 06-26-2025 ambulatory [facility] Facility:[facility] Start: 06-23-2025 End: 06-24-2025 [facility] Start: 06-15-2025 ambulatory [facility] Facility :[facility] Start: 06-14-2025 End: 06-14-2025 ambulatory [facility] Facility:[facility] Start: 06-07-2025 End: 06-23-2025 Patient Outreach Andre Santana MD Work Phone: [facility] Comment on above: Transition Of Care Start: 06-06-2025 Non-patient / Non-visit Dr. Dinora Helm MD -[facility] Work Phone: Start: 06-05-2025 Non-patient / Non-visit Dr. Dinora Helm MD -[facility] Work Phone: Start: 06-05-2025 End: 06-06-2025 ambulatory Alin Helm Facility:[facility] Start: 06-05-2025 End: 06-06-2025 Evaluation and management of inpatient Dr. Alin Helm MD -Progressive Care Unit Work Phone: Start: 06-05-2025 End: 06-06-[address] Andre Santana MD Work Phone: -[facility] Care Unit Start: 05-16-2025 End: 05-16-2025 ambulatory ANDRE SANTANA Facility:[facility] Start: 05-16-2025 End: 05-16-2025 Patient encounter procedure Andre Santana MD Work Phone: [facility] Comment on above: Primary hypertension (Primary Dx); Mixed hyperlipidemia; Atrial tachycardia (HCC); Coronary artery disease involving [place] coronary artery of [place] heart without angina pectoris; FRIEDA (obstructive sleep apnea); Granulomatous lung disease (HCC); Stage 3b chronic kidney disease (HCC); Sjoegren syndrome (HCC); Prediabetes; Post PTCA; Anxiety; Medication monitoring encounter Start: 04-24-2025 End: 04-24-2025 Patient encounter procedure Star Terry MD Work Phone: Endocrine Surgery Comment on above: Solitary thyroid nod ule (Primary Dx); Multiple thyroid nodules Start: 04-24-2025 End: 04-24-2025 ambulatory ANDRE SANTANA Facility:[facility] Start: 04-22-2025 End: 05-02-2025 Follow-up encounter Andre Santana MD Work Phone: [facility] Comment on above: Results Start: 04-21-2025 End: 04-21-2025 Subsequent hospital visit by physician [place] [facility] Work Phone: Radiology Comment on above: Neck pain [M54.2] Start: 04-21-2025 End: 04-21-2025 [facility] Start: 04-17-2025 End: 04-17-2025 ambulatory [facility] Facility:[facility] Start: 04-17-2025 End: 04-17-2025 Patient encounter procedure Andre Santana MD Work Phone: [facility] Comment on above: Neck pain (Primary D x); Lightheaded; Primary hypertension; Mixed hyperlipidemia; Atrial tachycardia (HCC); Coronary artery disease involving [place] coronary artery of [place] heart without angina pectoris; Gastroesophageal reflux disease, unspecified whether esophagitis present; Sjogren's syndrome, with unspecified organ involvement (HCC) Start: 04-04-2025 End: 04-04-2025 Refill Andre Santana MD Work Phone: [address] [place] [address] Comment on above: Refill Request Start: 03-15-2025 End: 03-15-2025 ambulatory Andre Santana MD Work Phone: [facility] Start: 03-15-2025 End: 03-15-2025 Patient encounter procedure Andre Santana MD Work Phone: [facility] Comment on above: Population Health [facility] Start: 03-07-2025 End: 03-08-2025 ambulatory [facility] Facility:[facility] Start: 03-07-2025 End: 03-08-2025 Patient encounter procedure Tulio Calderón MD Work Phone: Endocrinology Comment on above: Multiple thyroid nod ules (Primary Dx) Start: 02-28-2025 End: 02-28-2025 Emergency department patient visit Dr. Bertin Shukla -Emergency Department Work Phone: Start: 02-17-2025 ambulatory [facility] Facility:[facility] Start: 02-06-2025 End: 02-06-2025 ambulatory [facility] Facility:[facility] Start: 02-06-2025 End: 02-06-2025 Patient encounter procedure Tulio Calderón MD Work Phone: Endocrinology Comment on above: Multiple thyroid nod ules (Primary Dx) Start: 01-23-2025 End: 01-23-2025 Follow-up encounter Maren Rhodes MD Work Phone: Rheumatology Start: 01-20-2025 End: 01-20-2025 ambulatory ANDRE SANTANA Facility:[facility] Start: 01-20-2025 End: 01-20-2025 Subsequent hospital visit by physician [facility] Work Phone: Radiology Comment on above: Sjogren's syndrome w ithout extraglandular involvement (HCC) [M35.00] Start: 01-13-2025 End: 02-06-[address] Andre Santana MD Work Phone: [facility] Work Phone: Start: 01-13-2025 End: 02-06-2025 Discharged Recurring Darsahn Abarca MD -Cardiac Rehab Work Phone: Start: 01-06-2025 End: 01-06-2025 ambulatory Andre [place] Facility:[facility] Start: 01-06-2025 End: 01-06-2025 Discharged Recurring Darshan Abarca MD -Cardiac Rehab Work Phone: Start: 01-06-2025 End: 01-06-2025 Follow-up encounter Maren Rhodes MD Work Phone: Rheumatology Start: 12-26-2024 End: 12-26-2024 Orders Only Darshan Abarca MD Work Phone: [facility] [place] Comment on above: SVT (supraventricula r tachycardia) (HCC) (Primary Dx) Refill Request Patient Update Results (Chest CT) Start: 12-22-2024 End: 01-03-2025 Follow-up encounter Andre Santana MD Work Phone: Pulmonology [facility] Start: 12-20-2024 End: 12-20-2024 ambulatory ANDRE SANTANA Facility:[facility] Start: 12-19-2024 End: 12-19-2024 ambulatory ANDRE SANTANA Facility:[facility] Start: 12-19-2024 End: 12-19-2024 Subsequent hospital visit by physician Ct [facility] (I-Stat) Work Phone: Cat Scan Comment on above: Lung nodules [R91.8] Start: 12-16-2024 End: 12-16-2024 Telephone encounter Maren Rhodes MD Work Phone: Rheumatology Comment on above: Received Outside Med ical Records Start: 12-15-2024 End: 12-15-2024 ambulatory [facility] Facility:[facility] Start: 12-15-2024 End: 12-15-2024 Patient encounter procedure Maren Rhodes MD Work Phone: Rheumatology Comment on above: Sjogren's syndrome w ithout extraglandular involvement (HCC) (Primary Dx); Osteopenia, unspecified location; Rash and nonspecific skin eruption; GUERRA (dyspnea on exertion) Start: 12-09-2024 End: 12-09-2024 ambulatory [facility] Facility:[facility] Start: 12-09-2024 End: 12-09-2024 Discharged Recurring Darshan Abarca MD -Cardiac Rehab Work Phone: Start: 12-09-2024 End: 12-09-2024 Patient encounter procedure Jacquie Evans MD Work Phone: Pulmonary Medicine Comment on above: Lung nodules (Primar y Dx); Granulomatous lung disease (HCC); SOB (shortness of breath) Start: 11-28-2024 End: 12-06-2024 Telephone encounter Andre Santana MD Work Phone: Family Medicine [place] Comment on above: Results Start: 11-25-2024 End: 11-25-2024 Telephone encounter Andre Santana MD Work Phone: Family Medicine [place] Comment on above: Results Start: 11-25-2024 End: 11-25-2024 ambulatory [facility] Facility:[facility] Start: 11-25-2024 End: 11-25-2024 Subsequent hospital visit by physician [facility] 2 Work Phone: Radiology Comment on above: Enlarged thyroid [E0 4.9] Start: 11-23-2024 End: 11-23-2024 ambulatory [facility] Facility:[facility] Start: 11-23-2024 End: 11-23-2024 ambulatory [facility] Facility:[facility] Start: 11-23-2024 End: 11-23-2024 Patient encounter procedure Andre Snatana MD Work Phone: Family [facility] [place] Comment on above: Primary hypertension (Primary Dx); Mixed hyperlipidemia; Atrial tachycardia (HCC); Coronary artery disease involving skagway coronary artery of skagway heart without angina pectoris; Granulomatous lung disease (HCC); Thyroid nodule; Stage 3b chronic kidney disease (HCC); Sjoegren syndrome (HCC); Prediabetes; Microscopic hematuria; Granulomatous disease (HCC); Palpitations Start: 11-08-2024 End: 11-08-2024 Refill Andre Santana MD Work Phone: [facility] [place] Comment on above: Refill Request Start: 11-07-2024 End: 11-08-2024 ambulatory [facility] Facility:[facility] Start: 11-07-2024 End: 11-08-2024 Discharged Recurring Darshan Abarca MD -Cardiac Rehab Work Phone: Start: 10-17-2024 End: 10-17-2024 Patient encounter procedure Darsahn Abarca MD -Cardiac Rehab Work Phone: Start: 10-17-2024 End: 10-17-2024 [place] Facility:[facility] Start: 10-10-2024 End: 10-10-[address] [facility] Work Phone: Start: 10-10-2024 End: 10-10-2024 ambulatory MAREN RHODES Facility:[facility] Start: 10-04-2024 End: 10-05-2024 Telephone encounter Trang Philippe APRN.CNP Work Phone: Family [place] Comment on above: Results Start: 10-03-2024 End: 10-03-2024 ambulatory [facility] Facility:[facility] Start: 10-03-2024 End: 10-03-2024 Patient encounter procedure Darshan Abarca MD Work Phone: Cardiology Comment on above: Mixed hyperlipidemia (Primary Dx); Primary hypertension; Coronary artery disease involving skag[place] coronary artery of sk[place] heart without angina pectoris Start: 09-26-2024 End: 09-26-2024 Refill Andre Santana MD Work Phone: Family [facility] Comment on above: Refill Request Start: 09-20-2024 End: 09-20-2024 Emergency department patient visit ANDRE SANTANA [facility] Emergency Medicine Comment on above: Visit for wound chec k (Primary Dx); Anticoagulant long-term use Start: 09-16-2024 End: 09-16-2024 Telephone encounter Trang Philippe APRN.INTELLIGENCE CHIEF Work Phone: [facility] [place] Comment on above: Results Start: 09-15-2024 End: 09-15-2024 ambulatory [facility] Facility:[facility] Start: 09-15-2024 End: 09-15-2024 Patient encounter procedure Sandy Holm APRN.INTELLIGENCE CHIEF Work Phone: [facility] [place] Comment on above: Essential hypertensi on with goal blood pressure less than 140/90 (Primary Dx) Start: 09-12-2024 End: 09-12-2024 Office outpatient visit 25 minutes Trang Philippe APRN.INTELLIGENCE CHIEF Work Phone: [facility] [place] Comment on above: Essential hypertensi on with goal blood pressure less than 140/90 (Primary Dx); Anemia, unspecified type; Fatigue, unspecified type; Gross hematuria Start: 09-12-2024 End: 09-12-2024 ambulatory [facility] Facility:[facility] Start: 09-08-2024 End: 09-08-2024 [facility] Facility:[facility] Start: 08-29-2024 End: 08-29-2024 Telephone encounter Trang Philippe APRN.INTELLIGENCE CHIEF Work Phone: [facility] [place] Comment on above: Results Start: 08-24-2024 End: 08-24-2024 Refill Andre Santana MD Work Phone: [facility] [place] Comment on above: Refill Request Start: 08-16-2024 End: 08-17-2024 Telephone encounter Trang Philippe JOSEPH Work Phone: [facility] [place] Comment on above: Results Start: 08-13-2024 End: 08-13-2024 ambulatory [facility] Facility:[facility] Start: 08-12-2024 End: 08-12-2024 ambulatory [facility] Facility:[facility] Start: 08-12-2024 End: 08-12-2024 Patient encounter procedure Andre Santana MD Work Phone: [facility] [place] Comment on above: Dermatitis (Primary Dx); ST elevation myocardial infarction (STEMI) involving other coronary artery of inferior wall (HCC); Pseudoaneurysm (HCC); Essential hypertension with goal blood pressure less than 140/90; Hypertension, essential; Coronary artery disease involving skag[place] coronary artery of sk[place] heart without angina pectoris; Fatigue, unspecified type; Mixed hyperlipidemia Start: 08-10-2024 End: 08-10-2024 Telephone encounter Andre Santana MD Work Phone: [facility] [place] Comment on above: Patient Question Start: 08-09-2024 End: 08-09-2024 ambulatory [facility] Facility:[facility] Start: 08-09-2024 End: 08-09-2024 Patient encounter procedure Jazmin ANTONIO Work Phone: [facility] Comment on above: Pain of right thumb (Primary Dx) Start: 08-09-2024 End: 08-09-2024 Subsequent hospital visit by physician [facility] [place] Work Phone: Radiology Comment on above: Pain of right thumb [M79.644] Start: 07-26-2024 End: 07-26-2024 ambulatory [facility] Facility:[facility] Start: 07-26-2024 End: 07-26-2024 Patient encounter procedure Anitha Pacheco DO Work Phone: Vascular Surgery Comment on above: Pseudoaneurysm (HCC) Start: 07-25-2024 End: 07-25-2024 ambulatory [facility] Facility:[facility] Start: 07-25-2024 End: 07-25-2024 Patient encounter procedure Darshan Abarca MD Work Phone: Cardiology Comment on above: Post PTCA (Primary D x); Atrial tachycardia (HCC); Coronary artery disease involving skag[place] coronary artery of sk[place] heart without angina pectoris Start: 07-18-2024 End: 07-18-2024 ambulatory ANDRE SANTANA Facility:[facility] Start: 07-18-2024 End: 07-18-2024 Office outpatient visit 25 minutes Sandy Holm APRN.INTELLIGENCE CHIEF Work Phone: [facility] [place] Comment on above: ST elevation myocard ial infarction (STEMI) involving other coronary artery of inferior wall (HCC) (Primary Dx); Essential hypertension with goal blood pressure less than 140/90; Pseudoaneurysm (HCC); Enlarged thyroid; Mixed hyperlipidemia; Atrial tachycardia (HCC); FRIEDA (obstructive sleep apnea) Start: 07-14-2024 End: 07-14-2024 Telephone encounter Andre Santana MD Work Phone: Family [facility] [place] Comment on above: Patient Question Start: 07-07-2024 End: 07-07-2024 Telephone encounter Andre Santana MD Work Phone: [facility] [place] Comment on above: Patient Update Start: 06-30-2024 End: 07-05-2024 Telephone encounter Darshan Abarca MD Work Phone: Cardiology Comment on above: Refill Request Start: 06-27-2024 End: 09-06-2024 Telephone encounter Darshan Abarca MD Work Phone: Cardiology Comment on above: Patient Update; Appo intment Start: 06-08-2024 End: 06-08-2024 Subsequent hospital visit by physician [place] [facility] [place] Work Phone: Radiology Comment on above: Injury of right ankl e, initial encounter [S99.911A] Start: 06-08-2024 End: 06-08-2024 Patient encounter procedure Aris Stephenson APRN.INTELLIGENCE CHIEF Work Phone: [place] [facility] Comment on above: Injury of right ankl e, initial encounter (Primary Dx) Start: 06-07-2024 End: 07-04-2024 Orders Only Sandy Holm APRN.INTELLIGENCE CHIEF Work Phone: Family [facility] [place] Start: 06-03-2024 Telephone encounter Sandy Holm APRN.INTELLIGENCE CHIEF Work Phone: [facility] [place] Comment on above: Medication Problem; Patient Question Insurance Authorizat ion Start: 06-02-2024 End: 06-02-2024 Office outpatient visit 25 minutes Sandy Holm APRN.INTELLIGENCE CHIEF Work Phone: [facility] [place] Comment on above: Actinic keratosis (P rimary Dx); Essential hypertension with goal blood pressure less than 140/90; Hypertension, essential; Stage 3b chronic kidney disease (HCC); Allergic dermatitis Start: 02-22-2024 End: 02-22-2024 Patient encounter procedure Anitra Juarez MD Work Phone: Urology Comment on above: Microscopic hematuri a (Primary Dx); Right renal stone; Vaginal atrophy Start: 01-23-2024 Telephone encounter Luc Faustin PA-C Work Phone: [facility] [place] Comment on above: Results Start: 01-21-2024 Telephone encounter Megha Chavis APRN.INTELLIGENCE CHIEF Work Phone: [facility] Comment on above: Results Start: 01-20-2024 End: 01-20-2024 Subsequent hospital visit by physician [place] [facility] [place] Work Phone: Radiology Comment on above: Acute cough [R05.1] Start: 01-20-2024 End: 01-20-2024 Patient encounter procedure Aris Stephenson APRN.INTELLIGENCE CHIEF Work Phone: [facility] Comment on above: URI, acute (Primary Dx); Acute cough Start: 12-10-2023 End: 12-10-2023 Patient encounter procedure Maren Rhodes MD Work Phone: Rheumatology Comment on above: Sjogren's syndrome w ithout extraglandular involvement (HCC) (Primary Dx); Screening for osteoporosis; Osteopenia, unspecified location Start: 11-08-2023 Telephone encounter Beena Mccollum Sarah baker PA-C Work Phone: [facility] Comment on above: Results Start: 10-19-2023 End: 10-19-2023 Patient encounter procedure Darshan Abarca MD Work Phone: Cardiology Comment on above: Primary hypertension (Primary Dx); Atrial tachycardia; Mixed hyperlipidemia Start: 09-22-2023 End: 09-22-2023 Subsequent hospital visit by physician [facility] (I-Stat) Work Phone: Cat Scan Comment on above: Microscopic hematuri a [R31.29] Start: 09-08-2023 End: 09-08-2023 Patient encounter procedure Luc Faustin PA-C Work Phone: [facility] [place] Comment on above: Hypertension, essent ial (Primary Dx) Start: 08-28-2023 Telephone encounter Evan colon PA-C Work Phone: Urology Comment on above: Results Start: 08-25-2023 End: 08-25-2023 Patient encounter procedure Evan Johnson PA-C Work Phone: Urology Comment on above: Microscopic hematuri a (Primary Dx); Atrophic vaginitis Start: 08-19-2023 Telephone encounter Angelika vann APRN.INTELLIGENCE CHIEF Work Phone: [facility] [place] Comment on above: Results Start: 08-19-2023 End: 08-19-2023 Subsequent hospital visit by physician [facility] 2 Work Phone: Radiology Start: 08-18-2023 Telephone encounter Andre Santana MD Work Phone: [facility] [place] Comment on above: Results Start: 08-17-2023 End: 08-17-2023 Patient encounter procedure Angelika Castelan APRN.CNP Work Phone: [facility] [place] Comment on above: RUQ pain (Primary Dx ); Symptoms of urinary tract infection Start: 08-17-2023 End: 08-17-2023 Patient encounter procedure Angelika Castelan APRN.INTELLIGENCE CHIEF Work Phone: [facility] [place] Comment on above: APPOINTMENT CANCELLE D (Primary Dx) Start: 08-03-2023 End: 08-03-2023 Patient encounter procedure Jacquie Evans MD Work Phone: Pulmonary Medicine Comment on above: Lung nodule seen on imaging study (Primary Dx); History of lung surgery; Keratoconjunctivitis sicca, in Sjogren's syndrome (HCC) Start: 07-21-2023 Telephone encounter Andre Santana MD Work Phone: [facility] [place] Comment on above: Results Start: 07-16-2023 End: 07-16-2023 Patient encounter procedure Luc Faustin PA-C Work Phone: Family [facility] [place] Comment on above: Urinary frequency (P rimary Dx); Granulomatous lung disease (HCC); Consolidation of left lower lobe of lung (HCC); Atelectasis of left lung; Dehydration Start: 07-09-2023 Telephone encounter Luc Faustin PA-C Work Phone: Family [facility] [place] Comment on above: Results Start: 07-03-2023 End: 07-03-2023 Subsequent hospital visit by physician [place] [facility] (I-Stat) Work Phone: Cat Scan Comment on above: Chest pain on breath ing [R07.1] Start: 06-30-2023 Telephone encounter Luc Faustin PA-C Work Phone: Family [facility] [place] Start: 06-19-2023 Telephone encounter Angelika vann APRN.INTELLIGENCE CHIEF Work Phone: [facility] [place] Comment on above: Results Start: 06-17-2023 End: 06-17-2023 Patient encounter procedure Angelika Castelan APRN.INTELLIGENCE CHIEF Work Phone: [facility] [place] Comment on above: Palpitations (Primar y Dx); Essential hypertension with goal blood pressure less than 140/90 Start: 06-09-2023 Telephone encounter Luc Faustin PA-C Work Phone: [facility] [place] Comment on above: Results Start: 06-08-2023 End: 06-08-2023 Subsequent hospital visit by physician [facility] [place] Work Phone: Radiology Comment on above: Left-sided chest parish n [R07.9] Start: 01-15-2023 Documentation procedure Mammog raheem Coordinator [facility] Start: 01-15-2023 Letter encounter Mammography Coordinator [facility] Department Start: 01-15-2023 Telephone encounter Andre Santana MD Work Phone: Family [facility] [place] Comment on above: Results Start: 01-14-2023 Telephone encounter Maren reza MD Work Phone: Rheumatology Comment on above: Results Start: 01-08-2023 Telephone encounter Maren reza MD Work Phone: Rheumatology Comment on above: Results Start: 01-07-2023 End: 01-07-2023 Subsequent hospital visit by physician [facility] [place] Work Phone: Radiology Comment on above: Pain in right hip [M 25.551] Start: 01-06-2023 Orders Only Andre Santana MD Work Phone: [facility] Comment on above: Visit for screening mammogram (Primary Dx) Start: 11-28-2022 End: 11-28-2022 Patient encounter procedure Maren Rhodes MD Work Phone: Rheumatology Comment on above: Sjoegren syndrome (H CC) (Primary Dx); Pain in right hip; Sicca syndrome (HCC); Malaise and fatigue; Encounter for screening for osteoporosis; Elevated sed rate; Raynaud's disease without gangrene Start: 10-24-2022 Telephone encounter Daisha otoole APRN.INTELLIGENCE CHIEF Work Phone: [facility] [place] Comment on above: Patient Update (Cons ult) Start: 10-23-2022 End: 10-23-2022 ambulatory M JOSE FAUSTIN Facility:[facility] Start: 10-23-2022 End: 10-23-2022 Patient encounter procedure Daisha Junior APRN.INTELLIGENCE CHIEF Work Phone: [facility] Comment on above: Spinal stenosis, lum bar region with neurogenic claudication (Primary Dx); Sciatica, right side; Other chronic pain Start: 10-21-2022 End: 10-21-2022 ambulatory Juliann Guido PT Work Phone: [facility] Comment on above: Sciatica, right side (Primary Dx) Start: 10-17-2022 End: 10-17-2022 ambulatory Holly Head [employer]ARRING MAKER Work Phone: [facility] Comment on above: Sciatica, right side (Primary Dx) Start: 10-10-2022 End: 10-10-2022 ambulatory Juliann Guido PT Work Phone: [facility] Comment on above: Sciatica, right side (Primary Dx) Start: 10-07-2022 End: 10-07-2022 ambulatory Juliann Guido PT Work Phone: [facility] Comment on above: Sciatica, right side (Primary Dx) Start: 09-30-2022 End: 09-30-2022 ambulatory Juliann Guido PT Work Phone: [facility] Comment on above: Sciatica, right side (Primary Dx) Start: 09-23-2022 End: 09-23-2022 Patient encounter procedure Ivan Alvarez MD Work Phone: Urology Comment on above: Feeling of incomplet e bladder emptying Start: 09-17-2022 End: 09-17-2022 ambulatory Samreen Powell PT [facility] Comment on above: Sciatica, right side (Primary Dx) Start: 09-15-2022 End: 09-15-2022 Patient encounter procedure Luc Faustin PA-C Work Phone: [facility] [place] Comment on above: Rash (Primary Dx) Start: 09-12-2022 End: 09-12-2022 ambulatory Holly Gutierrezba [employer]ER Work Phone: [facility] Comment on above: Sciatica, right side (Primary Dx) Start: 09-09-2022 End: 09-09-2022 ambulatory Holly Head [employer]ARRING MAKER Work Phone: [facility] Comment on above: Sciatica, right side (Primary Dx) Start: 09-07-2022 Telephone encounter Luc Jose Ramin [place] Work Phone: [facility] Comment on above: Results Results, Lab Start: 09-05-2022 End: 09-05-2022 Subsequent hospital visit by physician [employer] [employer] [facility] W[facility] (I-Stat/1.5t) Work Phone: Radiology Comment on above: Right lumbar radicul itis [M54.16] Start: 09-02-2022 End: 09-02-2022 Patient encounter procedure Luc Jose Faustin PA-C Work Phone: [facility] Comment on above: Right lumbar radicul itis (Primary Dx); Lumbar stenosis with neurogenic claudication; Urinary pain; Intractable pain; Foot drop, left; Bilirubin in urine Start: 09-01-2022 Refill Andre Santana MD Work Phone: [facility] Comment on above: Refill Request Start: 08-29-2022 Telephone encounter Jacquie Evans MD Work Phone: Pulmonary Medicine Comment on above: Results (Chest x-ray ) Start: 08-28-2022 End: 08-28-2022 Subsequent hospital visit by physician [facility] [place] Work Phone: Radiology Comment on above: Pleurisy [R09.1] Start: 08-27-2022 End: 08-27-2022 ambulatory Samreen Powell PT [facility] Comment on above: Sciatica, right side (Primary Dx) Start: 08-27-2022 Telephone encounter Andre Santana MD Work Phone: [facility] Comment on above: Results Start: 08-26-2022 End: 08-26-2022 Subsequent hospital visit by physician [facility] [place] Work Phone: Radiology Comment on above: Sciatica, right side [M54.31] Start: 08-21-2022 Refill [facility] Comment on above: Refill Request Start: 08-18-2022 Telephone encounter Andre Snatana MD Work Phone: [facility] [place] Comment on above: Results Start: 08-15-2022 End: 08-15-2022 Subsequent hospital visit by physician [facility] 2 Work Phone: Radiology Comment on above: Feeling of incomplet e bladder emptying [R39.14] Start: 08-13-2022 Telephone encounter Andre Santana MD Work Phone: [facility] [place] Comment on above: Results Start: 08-11-2022 End: 08-11-2022 Patient encounter procedure Luc Faustin PA-C Work Phone: [facility] Comment on above: Feeling of incomplet e bladder emptying (Primary Dx); Sciatica, right side Start: 07-30-2022 End: 07-30-2022 Patient encounter procedure Venessa Rosa MD Work Phone: General Surgery Comment on above: Status post excision of lipoma (Primary Dx) Start: 07-28-2022 End: 07-28-2022 Patient encounter procedure Elissa Parks APRN.CNP Work Phone: Urology Comment on above: Sensation of pressur e in bladder area (Primary Dx); Feeling of incomplete bladder emptying; Hemoglobinuria Start: 07-07-2022 End: 07-07-2022 Patient encounter procedure Venessa Rosa MD Work Phone: General Surgery Comment on above: Lipoma of anterior c hest wall (Primary Dx); Lipoma of back; Dysesthesia Start: 07-07-2022 End: 07-07-2022 Subsequent hospital visit by physician [facility] [place] Work Phone: Radiology Comment on above: 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 [M18.0] Start: 07-04-2022 Telephone encounter Andre [facility] MD [facility] Comment on above: Results Start: 07-01-2022 End: 07-01-2022 Patient encounter procedure Luc Jose Faustin PA-C Work Phone: [facility] Comment on above: Atrial tachycardia ( HCC) [...] of both thumbs Start: 05-27-2022 ambulatory Effie Gimenez RN [facility] Comment on above: CDM Enrollment ([facility] Enrollment Call #1) Start: 05-16-2022 Telephone encounter Andre Santana MD Work Phone: [facility] Comment on above: Results Start: 05-15-2022 Refill Andre Santana MD Work Phone: [facility] Comment on above: Refill Request Start: 05-07-2022 Telephone encounter Shirin miranda APRN.INTELLIGENCE CHIEF Work Phone: Urology Comment on above: Results Start: 05-01-2022 End: 05-01-2022 Subsequent hospital visit by physician [facility] 1 Work Phone: Radiology Comment on above: Atrophic vaginitis [ N95.2] Start: 04-29-2022 Telephone encounter Andre Santana MD Work Phone: [facility] [place] Comment on above: Lab Orders Start: 04-22-2022 End: 04-22-2022 Patient encounter procedure Shirin Draper APRN.INTELLIGENCE CHIEF Work Phone: [facility] Comment on above: Atrophic vaginitis ( Primary Dx); Urinary frequency; Feeling of incomplete bladder emptying; H/O senile atrophic vaginitis Start: 02-25-2022 End: 02-25-2022 Patient encounter procedure Jacquie Evans MD Work Phone: Pulmonary Medicine Comment on above: Chest pain, unspecif ied type (Primary Dx); Granulomatous disease (HCC) Start: 10-16-2021 End: 10-16-2021 Subsequent hospital visit by physician [facility] [place] Work Phone: Radiology Comment on above: Chest pain, unspecif ied type [R07.9] Start: 01-09-2021 End: 01-09-2021 Subsequent hospital visit by physician [facility] [place] Work Phone: Radiology Comment on above: 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 Andre Santana MD Work Phone: Start: 06-05-2025 SARS-CoV-2, Influenz a & RSV (PCR) Dr. Andre Santana MD Work Phone: Start: 06-05-2025 Urnls dip stick/tabl et reagent auto microscopy Dr. Andre Santana MD Work Phone: Start: 06-05-2025 CT of head without contrast Dr. Andre Santana MD Work Phone: Start: 06-05-2025 Plain chest X-ray Dr. Liz Santana MD Work Phone: Start: 06-05-[address] Andre Santana MD Work Phone: Start: 04-24-2025 Us soft tissue head & neck real time imge markel Terry MD Work Phone: Start: 02-28-2025 X-ray of chest, PA a nd lateral views Dr. Andre Santana MD Work Phone: Start: 02-28-2025 D-dimer assay, quantitative Dr. Andre Santana MD Work Phone: Comment on above: NORMAL D-Dimer level (<0.50) indicates no DVT or PE. Start: 02-28-[address] Andre Santana MD Work Phone: Start: 11-23-2024 Ecg routine ecg w/le ast 12 lds i&r only Andre Santana MD Work Phone: Start: 09-12-2024 Urnls dip stick/tabl et reagent auto microscopy Trang Philippe SECTION WEAVER.INTELLIGENCE CHIEF Work Phone: Start: 08-09-2024 Radex fingr minimum 2 views Jazmin ANTONIO Work Phone: Start: 07-25-2024 Ecg routine ecg w/le ast 12 lds i&r only [facility] Provider Start: 06-08-2024 Radex ankle complete minimum 3 views Aris Stephenson SECTION WEAVER.[facility] Work Phone: Start: 02-22-2024 Urnls dip stick/tabl et rgnt auto w/o microscopy Anitra Juarez MD Work Phone: Start: 01-20-2024 Radiologic exam ches t 2 views Aris Stephenson SECTION WEAVER.[facility] Work Phone: Start: 09-22-2023 Ct abdomen & pelvis w/o contrst 1/> body re Evan Johnson PA-C Work Phone: Start: 08-25-2023 Urnls dip stick/tabl et rgnt auto w/o microscopy Evan Johnson PA-C Work Phone: Start: 08-19-2023 Us abdominal real ti me w/image limited Angelika Podlogenid SECTION WEAVER.INTELLIGENCE CHIEF Work Phone: Start: 08-17-2023 Urnls dip stick/tabl et rgnt auto w/o microscopy Angelika Podlogar SECTION WEAVER.INTELLIGENCE CHIEF Work Phone: Start: 07-16-2023 Urnls dip stick/tabl et rgnt auto w/o microscopy Luc Faustin PA-C Work Phone: Start: 07-03-2023 Ct thorax w/o contra st material M Jose ANTONIO-C Work Phone: Start: 06-08-2023 Radiologic exam ches t 2 views Luc Jose Ramin NE[place]ON Work Phone: Start: 01-07-2023 Radex hip unilateral with pelvis 2-3 views Maren Rhodes MD Work Phone: Start: 09-23-2022 Urnls dip stick/tabl et rgnt auto w/o microscopy Ivan Alvarez MD Work Phone: Start: 09-05-2022 Mri spinal canal lum bar w/o contrast material Luc Jose Faustin PA-C Work Phone: Start: 09-02-2022 Urnls dip stick/tabl et rgnt auto w/o microscopy Luc Jose Faustin PA-C Work Phone: Start: 08-28-2022 Radiologic exam ches t 2 views Jacquie Evans MD Work Phone: Start: 08-26-2022 Radex spine lumbosac ral 2/3 views Luc Jose Faustin PA-C Work Phone: Start: 08-15-2022 Us pelvic nonobstetr ic image dcmtn limited/f/u Luc Jose SCHROEDERC Work Phone: Start: 07-28-2022 Urnls dip stick/tabl et rgnt auto w/o microscopy Elissa Parks SECTION WEAVER.INTELLIGENCE CHIEF Work Phone: Start: 07-07-2022 Radex fingr minimum 2 views Luc Jose Faustin PA-C Work Phone: Start: 05-01-2022 Us retroperitoneal r eal time w/image complete Shirin Draper APRN.INTELLIGENCE CHIEF Work Phone: Start: 04-22-2022 Urnls dip stick/tabl et rgnt auto w/o microscopy Shirin Draper APRN.INTELLIGENCE CHIEF Work Phone: Start: 04-22-2022 BLADDER SCAN Shirin Bru nsdon SECTION WEAVER.INTELLIGENCE CHIEF Work Phone: Start: 10-16-2021 Radiologic exam ches t 2 views Andre Santana MD Work Phone: Start: 01-09-2021 Radiologic exam ches t single view Jacquie Evans MD Work Phone: Start: 01-11-2016 Colonoscopy Jacquie Evans MD Work Phone: H/O: surgery History of lung surgery Jacquie Evans MD Work Phone: Plan of Treatment Date Care Activity Detail Author Start: 06-14-2028 Diabetes Screening Diabetes Screening [facility] Start: 04-21-2028 Diabetes Screening Diabetes Screening [facility] Start: 11-23-2027 Diabetes Screening Diabetes Screening [facility] Start: 10-03-2027 Diabetes Screening Diabetes Screening [facility] Start: 08-13-2027 Diabetes Screening Diabetes Screening [facility] Start: 05-08-2027 LIPID SCREEN LIPID SCREEN [facility] Start: 01-19-2027 Diabetes Screening Diabetes Screening [facility] Start: 11-12-2026 Diabetes Screening Diabetes Screening [facility] Start: 08-21-2026 LIPID SCREEN LIPID SCREEN [facility] Start: 08-17-2026 Diabetes Screening Diabetes Screening [facility] Start: 08-03-2026 Diabetes Screening Diabetes Screening [facility] Start: 06-29-2026 DIABETES SCREEN DIABETES SCREEN [facility] Start: 06-28-2026 Annual PCP Team Chronic Disease Visit Annual PCP Team Chronic Disease Visit [facility] Start: 06-17-2026 DIABETES SCREEN DIABETES SCREEN [facility] Start: 06-14-2026 Annual PCP Team Chronic Disease Visit Annual PCP Team Chronic Disease Visit [facility] Start: 06-14-2026 Complete blood count Hemoglobin/Hematocrit [facility] Start: 06-14-2026 Creatinine measurement Serum Creatinine [facility] Start: 06-08-2026 DIABETES SCREEN DIABETES SCREEN [facility] Start: 05-16-2026 Annual PCP Team Chronic Disease Visit Annual PCP Team Chronic Disease Visit [facility] Start: 04-21-2026 Complete blood count Hemoglobin/Hematocrit [facility] Start: 04-21-2026 Creatinine measurement Serum Creatinine [facility] Start: 04-17-2026 Annual PCP Team Chronic Disease Visit Annual PCP Team Chronic Disease Visit [facility] Start: 03-07-2026 BP Controlled (<130/80) BP Controlled (<130/80) [facility] Start: 01-08-2026 End: 01-08-2026 Patient encounter procedure 01/08/2026 3:40 PM EST Office Visit Cardiology [address] [place] [address] Darshan Abarca MD 224 [facility] [address] [place], [place] [id number] 6 month follow up Cardiology Comment on above: 6 month follow up Start: 12-15-2025 BP Controlled (<130/80) BP Controlled (<130/80) [facility] Start: 11-23-2025 Annual PCP Team Chronic Disease Visit Annual PCP Team Chronic Disease Visit [facility] Start: 11-23-2025 Complete blood count Hemoglobin/Hematocrit [facility] Start: 11-23-2025 Creatinine measurement Serum Creatinine [facility] Start: 10-03-2025 Complete blood count Hemoglobin/Hematocrit [facility] Start: 10-03-2025 Creatinine measurement Serum Creatinine [facility] Start: 09-12-2025 Annual PCP Team Chronic Disease Visit Annual PCP Team Chronic Disease Visit [facility] Start: 09-08-2025 Complete blood count Hemoglobin/Hematocrit [facility] Start: 08-29-2025 End: 08-29-2025 Patient encounter procedure 08/29/2025 2:00 PM EDT Office Visit Neurology [address] [address] Missy Milan MD [address] [place] [address] Memory changes [R41.3] Neurology Comment on above: Memory changes [R41.3] Start: 08-24-2025 Complete blood count Hemoglobin/Hematocrit [facility] Start: 08-21-2025 End: 08-21-2025 Patient encounter procedure 08/21/2025 3:40 PM EDT Office Visit Family Medicine Stephanie [address] [place] [address] Trang Philippe APRN.INTELLIGENCE CHIEF [address] [facility] [place] [address] Medicare Wellness Exam Family Medicine Stephanie Comment on above: Medicare Wellness Exam Start: 08-16-2025 End: 11-15-2025 CBC W Auto Differential panel - Blood COMPLETE BLOOD COUNT AND DIFFERENTIAL Lab Routine Mixed hyperlipidemia Expected: 08/16/2025, Expires: 11/15/[address] [facility] Work Phone: Comment on above: Expected: 08/16/2025, Expires: Start: 08-16-2025 End: 11-15-2025 Cobalamin (Vitamin B12) [Mass/volume] in Serum or Plasma VITAMIN B12 Lab Routine Medication monitoring encounter Expected: 08/16/2025, Expires: 11/15/2025 [facility] Comment on above: Expected: 08/16/2025, Expires: Start: 08-16-2025 End: 11-15-2025 Comprehensive metabolic 2000 panel - Serum or Plasma COMPREHENSIVE METABOLIC PANEL Lab Routine Mixed hyperlipidemia Expected: 08/16/2025, Expires: 11/15/2025 [facility] Comment on above: Expected: 08/16/2025, Expires: Start: 08-16-2025 End: 11-15-2025 Folate [Mass/volume] in Serum or Plasma FOLATE, SERUM Lab Routine Medication monitoring encounter Expected: 08/16/2025, Expires: 11/15/2025 [facility] Comment on above: Expected: 08/16/2025, Expires: Start: 08-16-2025 End: 11-15-2025 Hemoglobin A1c in Blood HEMOGLOBIN A1C Lab Routine Prediabetes Expected: 08/16/2025, Expires: 11/15/2025 [facility] Comment on above: Expected: 08/16/2025, Expires: Start: 08-16-2025 End: 11-15-2025 Lipid 1996 panel - Serum or Plasma LIPID PANEL, FASTING Lab Routine Mixed hyperlipidemia Expected: 08/16/2025, Expires: 11/15/2025 [facility] Comment on above: Expected: 08/16/2025, Expires: Start: 08-13-2025 Complete blood count Hemoglobin/Hematocrit [facility] Start: 08-13-2025 Creatinine measurement Serum Creatinine [facility] Start: 08-13-2025 Hepatitis B surface antibody level LDL Cholesterol [facility] Start: 08-12-2025 Annual PCP Team Chronic Disease Visit Annual PCP Team Chronic Disease Visit [facility] Start: 08-12-2025 Covid-19 Vaccine () Covid-19 Vaccine () [facility] Comment on above: Postponed from 07/10/2024 (Declined at t his time) Start: 08-12-2025 Urine microalbumin profile DTaP,Tdap,Td Vaccine (2 - Td or Tdap) [facility] Comment on above: Postponed from 04/23/2017 (Declined at t his time) Start: 07-10-2025 Influenza vaccination [facility] Start: 07-04-2025 End: 07-04-2025 Patient encounter procedure Radiology Comment on above: Dx: Dysphasia [R47.02]; Transient cerebr al ischemia, unspecified type [G45.9] Start: 06-30-2025 End: 06-30-2025 Patient encounter procedure 06/30/2025 2:10 PM EDT Office Visit Rheumatology [address] [place] [address] [place] [address] [place] [address] 6 mo f/u Rheumatology Comment on above: 6 mo f/u Start: 06-29-2025 End: 09-28-2025 Corticotropin [Mass/volume] in Plasma ACTH BLD Lab Routine Empty sella (HCC) Expected: 06/29/2025, Expires: 09/28/[address] [facility] Work Phone: Comment on above: Expected: 06/29/2025, Expires: Start: 06-29-2025 End: 09-28-2025 Cortisol [Mass/volume] in Serum or Plasma CORTISOL, SERUM Lab Routine Empty sella (HCC) Expected: 06/29/2025, Expires: 09/28/2025 [facility] Comment on above: Expected: 06/29/2025, Expires: Start: 06-29-2025 End: 09-28-2025 INSULIN LIK GR FAC I INSULIN LIK GR FAC I Lab Routine Empty sella ([facility]) Expected: 06/29/2025, Expires: 09/28/2025 [facility] Comment on above: Expected: 06/29/2025, Expires: Start: 06-29-2025 End: 09-28-2025 Prolactin [Mass/volume] in Serum or Plasma PROLACTIN Lab Routine Empty sella ([facility]) Expected: 06/29/2025, Expires: 09/28/2025 [facility] Comment on above: Expected: 06/29/2025, Expires: Start: 06-29-2025 End: 09-28-2025 T4/FTI/T4U T4/FTI/T4U Lab Routine Empty sella ([facility]) Expected: 06/29/2025, Expires: 09/28/2025 [facility] Comment on above: Expected: 06/29/2025, Expires: Start: 06-29-2025 End: 09-28-2025 Thyrotropin [Units/volume] in Serum or Plasma THYROID STIMULATING HORMONE Lab Routine Empty sella ([facility]) Expected: 06/29/2025, Expires: 09/28/2025 [facility] Comment on above: Expected: 06/29/2025, Expires: Start: 06-28-2025 End: 06-28-2025 Patient encounter procedure 06/28/2025 3:00 PM EDT Office Visit Family Medicine Stephanie [address] [place], [place] [id number] Trang Philippe APRN.INTELLIGENCE CHIEF [address] [place], [place] [id number] 2 week follow up Family Medicine Stephanie Comment on above: 2 week follow up Start: 06-26-2025 End: 06-26-2025 Patient encounter procedure 06/26/2025 8:40 AM EDT Office Visit Cardiology [address] [place] [address] Darshan Abarca MD [address] [facility], [address] [place] [address] 6 month check Cardiology Comment on above: 6 month check Start: 06-09-2025 End: 06-09-2025 Patient encounter procedure 06/09/2025 2:40 PM EDT Office Visit Endocrinology [address] [place] [address] Tulio Calderón MD [address] [place] [address] 3 month f/u-thyroid Endocrinology Comment on above: 3 month f/u-thyroid Start: 06-09-2025 End: 06-09-2025 Patient encounter procedure 06/09/2025 8:40 AM EDT Office Visit Endocrinology [address] [place] [address] Tulio Calderón MD [address] [place] [address] 1st attempt- 3 month f/u-thyroid Endocrinology Comment on above: 1st attempt- 3 month f/u-thyroid Start: 06-06-2025 Patient discharge [facility] Start: 06-05-2025 Following clinical pathway protocol [facility] Start: 06-05-2025 Ambulation without limitation [facility] Start: 06-05-2025 Assessment of risk of venous thromboembolism [facility] Start: 06-05-2025 Insertion of catheter into peripheral vein [facility] Start: 06-05-2025 Measuring intake and output [facility] Start: 06-05-2025 Providing care according to standard [facility] Start: 06-05-2025 [facility] Start: 06-05-2025 Hospital admission, emergency, from emergency room, medical nature [facility] Start: 06-05-2025 Verification routine [facility] Start: 06-05-2025 Admission procedure [facility] Start: 06-05-2025 [facility] Start: 06-05-2025 [facility] Start: 06-02-2025 BP Controlled (<130/80) BP Controlled (<130/80) [facility] Start: 05-16-2025 End: 05-16-2025 Patient encounter procedure 05/16/2025 4:00 PM EDT Office Visit Family Medicine [place] [address] [place], [place] [id number] Andre Santana MD [address] [place], [place] [id number] 4 week follow up [facility] Comment on above: 4 week follow up Start: 05-15-2025 End: 05-15-2025 Patient encounter procedure Cardiology Comment on above: 6 month check Start: 05-08-2025 DIABETES SCREEN DIABETES SCREEN [facility] Start: 05-08-2025 Influenza vaccination Influenza Vaccine (#1) [facility] Comment on above: Postponed from 07/10/2024 (Declined at t his time) Start: 04-24-2025 End: 04-24-2025 Patient encounter procedure 04/24/2025 10:45 AM EDT Office Visit Endocrine Surgery [address] [address] Star Terry MD [address] [place] [address] Multiple thyroid nodules [E04.2] Endocrine Surgery Comment on above: Multiple thyroid nodules [E04.2] Start: 04-17-2025 End: 04-17-2025 Patient encounter procedure Cardiology Comment on above: 6 month check 6 month follow up Start: 04-17-2025 End: 07-17-2025 Basic metabolic 2000 panel - Serum or Plasma BASIC METABOLIC PANEL Lab Routine Lightheaded Expected: 04/17/2025, Expires: 07/17/2025 [facility] Comment on above: Expected: 04/17/2025, Expires: Start: 04-17-2025 End: 07-17-2025 CBC W Auto Differential panel - Blood COMPLETE BLOOD COUNT AND DIFFERENTIAL Lab Routine Lightheaded Expected: 04/17/2025, Expires: 07/17/2025 [facility] Comment on above: Expected: 04/17/2025, Expires: Start: 03-20-2025 End: 03-20-2025 Patient encounter procedure 03/20/2025 2:20 PM EDT Office Visit [facility] [address] [place] [address] Isak Schmid MD [address] [address] [address] Abarca EKG- hlk [facility] Comment on above: SVT. Ref by Dr. Abarca EKG- hlk Start: 03-07-2025 End: 03-07-2025 Patient encounter procedure 03/07/2025 2:00 PM EDT Office Visit Endocrinology [address] [place] [address] Tulio Calderón MD [address] [place] [address] 4 week follow up Endocrinology Comment on above: 4 week follow up Start: 02-28-2025 End: 02-28-2025 [facility] Start: 02-15-2025 End: 02-15-2025 Patient encounter procedure [facility] [place] Comment on above: SVT. Ref by Dr. Abarca SVT. Ref by Dr. Nalini torres EKG- hlk Start: 02-06-2025 End: 02-06-2025 Patient encounter procedure 02/06/2025 1:00 PM EDT Office Visit Endocrinology [address] [place] [address] Tulio Calderón MD [address] [place] [address] Thyroid nodule greater than or equal to 1 cm in diameter incidentally noted on imaging study [E04.1] Endocrinology Comment on above: Thyroid nodule greater than or equal to 1 cm in diameter incidentally noted on imaging study [E04.1] Start: 01-20-2025 End: 01-20-2025 Patient encounter procedure 01/20/2025 3:25 PM EDT Appointment Radiology [address] [place] [id number] Sjogren's syndrome without extraglandular involvement (HCC) [M35.00] Radiology Comment on above: Sjogren's syndrome without extraglandula r involvement (HCC) [M35.00] Start: 01-19-2025 Complete blood count Hemoglobin/Hematocrit [facility] Start: 01-19-2025 Creatinine measurement Serum Creatinine [facility] Start: 12-27-2024 End: 12-27-2024 Patient encounter procedure 12/27/2024 10:00 AM EST Office Visit Endocrinology [address] [place] [address] Tulio Calderón MD [address] [place] [address] Thyroid nodule greater than or equal to 1 cm in diameter incidentally noted on imaging study [E04.1] Endocrinology Comment on above: Thyroid nodule greater than or equal to 1 cm in diameter incidentally noted on imaging study [E04.1] Start: 12-19-2024 End: 12-19-2024 Patient encounter procedure 12/19/2024 3:20 PM EST Appointment Cat Scan [address] [place], [place] [id number] CT CHEST Cat Scan Comment on above: CT CHEST Start: 12-16-2024 End: 03-17-2025 POLYMYOSITIS AND DERMATOMYOSITIS PANEL POLYMYOSITIS AND DERMATOMYOSITIS PANEL Lab Routine Rash and nonspecific skin eruption Expected: 12/16/2024, Expires: 03/17/[address] [facility] Work Phone: Comment on above: Expected: 12/16/2024, Expires: Start: 12-15-2024 End: 03-16-2025 25-hydroxyvitamin D3 [Mass/volume] in Serum or Plasma VITAMIN D 25 HYDROXY Lab Routine Sjogren's syndrome without extraglandular involvement (HCC) Osteopenia, unspecified location Rash and nonspecific skin eruption GUERRA (dyspnea on exertion) Expected: 12/15/2024, Expires: 03/16/2025 [facility] Comment on above: Expected: 12/15/2024, Expires: Start: 12-15-2024 End: 03-16-2025 Collagen crosslinked C-telopeptide [Mass/volume] in Serum or Plasma C TELOPEPTIDE, BETA Lab Routine Sjogren's syndrome without extraglandular involvement (HCC) Osteopenia, unspecified location Rash and nonspecific skin eruption GUERRA (dyspnea on exertion) Expected: 12/15/2024, Expires: 03/16/2025 [facility] Comment on above: Expected: 12/15/2024, Expires: Start: 12-15-2024 End: 03-16-2025 Complement C3 [Mass/volume] in Serum or Plasma C3 COMPLEMENT Lab Routine Sjogren's syndrome without extraglandular involvement (HCC) Osteopenia, unspecified location Rash and nonspecific skin eruption GUERRA (dyspnea on exertion) Expected: 12/15/2024, Expires: 03/16/2025 [facility] Comment on above: Expected: 12/15/2024, Expires: Start: 12-15-2024 End: 03-16-2025 Complement C4 [Mass/volume] in Serum or Plasma C4 COMPLEMENT Lab Routine Sjogren's syndrome without extraglandular involvement (HCC) Osteopenia, unspecified location Rash and nonspecific skin eruption GUERRA (dyspnea on exertion) Expected: 12/15/2024, Expires: 03/16/2025 [facility] Comment on above: Expected: 12/15/2024, Expires: Start: 12-15-2024 End: 03-16-2025 IMMUNOFIXATION SCREEN, SERUM IMMUNOFIXATION SCREEN, SERUM Lab Routine Sjogren's syndrome without extraglandular involvement (HCC) Osteopenia, unspecified location Rash and nonspecific skin eruption GUERRA (dyspnea on exertion) Expected: 12/15/2024, Expires: 03/16/2025 [facility] Comment on above: Expected: 12/15/2024, Expires: Start: 12-15-2024 End: 03-16-2025 KAPPA/IRVING,FREE,SER KAPPA/IRVING,FREE,SER Lab Routine Sjogren's syndrome without extraglandular involvement (HCC) Osteopenia, unspecified location Rash and nonspecific skin eruption GUERRA (dyspnea on exertion) Expected: 12/15/2024, Expires: 03/16/2025 [facility] Comment on above: Expected: 12/15/2024, Expires: Start: 12-15-2024 End: 03-16-2025 Magnesium [Mass/volume] in Serum or Plasma MAGNESIUM Lab Routine Sjogren's syndrome without extraglandular involvement (HCC) Osteopenia, unspecified location Rash and nonspecific skin eruption GUERRA (dyspnea on exertion) Expected: 12/15/2024, Expires: 03/16/2025 [facility] Comment on above: Expected: 12/15/2024, Expires: Start: 12-15-2024 End: 03-16-2025 MONOCLONAL PROT UR W/INTERP MONOCLONAL PROT UR W/INTERP Lab Routine Sjogren's syndrome without extraglandular involvement (HCC) Osteopenia, unspecified location Rash and nonspecific skin eruption GUERRA (dyspnea on exertion) Expected: 12/15/2024, Expires: 03/16/2025 [facility] Comment on above: Expected: 12/15/2024, Expires: Start: 12-15-2024 End: 12-15-2024 Patient encounter procedure 12/15/2024 2:00 PM EST Office Visit Rheumatology [address] [place] [address] [place] [address] [place] [address] 1 year follow up Rheumatology Comment on above: 1 year follow up Start: 12-15-2024 End: 03-16-2025 Phosphate [Mass/volume] in Serum or Plasma PHOSPHORUS INORGANIC Lab Routine Sjogren's syndrome without extraglandular involvement (HCC) Osteopenia, unspecified location Rash and nonspecific skin eruption GUERRA (dyspnea on exertion) Expected: 12/15/2024, Expires: 03/16/2025 [facility] Comment on above: Expected: 12/15/2024, Expires: Start: 12-15-2024 End: 03-16-2025 PROTEIN ELECT RND UR W/INTERP PROTEIN ELECT RND UR W/INTERP Lab Routine Sjogren's syndrome without extraglandular involvement (HCC) Osteopenia, unspecified location Rash and nonspecific skin eruption GUERRA (dyspnea on exertion) Expected: 12/15/2024, Expires: 03/16/2025 [facility] Comment on above: Expected: 12/15/2024, Expires: Start: 12-15-2024 End: 03-16-2025 PROTEIN ELECTROPHORESIS SERUM W/INTERP PROTEIN ELECTROPHORESIS SERUM W/INTERP Lab Routine Sjogren's syndrome without extraglandular involvement (HCC) Osteopenia, unspecified location Rash and nonspecific skin eruption GUERRA (dyspnea on exertion) Expected: 12/15/2024, Expires: 03/16/2025 [facility] Comment on above: Expected: 12/15/2024, Expires: Start: 12-15-2024 End: 03-16-2025 Protein/Creatinine [Mass Ratio] in Urine PROTEIN / CREATININE RATIO Lab Routine Sjogren's syndrome without extraglandular involvement (HCC) Osteopenia, unspecified location Rash and nonspecific skin eruption GUERRA (dyspnea on exertion) Expected: 12/15/2024, Expires: 03/16/2025 [facility] Comment on above: Expected: 12/15/2024, Expires: Start: 12-15-2024 End: 03-16-2025 Urinalysis complete panel - Urine URINALYSIS, WITH MICROSCOPIC Lab Routine Sjogren's syndrome without extraglandular involvement (HCC) Osteopenia, unspecified location Rash and nonspecific skin eruption GUERRA (dyspnea on exertion) Expected: 12/15/2024, Expires: 03/16/2025 [facility] Comment on above: Expected: 12/15/2024, Expires: Start: 12-09-2024 End: 12-09-2024 Patient encounter procedure 12/09/2024 3:15 PM EST Office Visit Pulmonary Medicine [address] [place], [place] [id number] Jacquie Evans MD [address] [place] [address] Granulomatous lung disease (HCC) [J84.10] Pulmonary Medicine Comment on above: Granulomatous lung disease (HCC) [J84.10 ] Start: 12-03-2024 Annual PCP Team Chronic Disease Visit Annual PCP Team Chronic Disease Visit [facility] Start: 12-03-2024 Covid-19 Vaccine (#1) Covid-19 Vaccine (#1) [facility] Comment on above: Postponed from 04/13/1946 (Declined at t his time) Start: 12-03-2024 Covid-19 Vaccine ( season) Covid-19 Vaccine ( season) [facility] Comment on above: Postponed from 07/10/2023 (Declined at t his time) Start: 12-03-2024 RSV Vaccine (1 - 1-dose 60+ series) RSV Vaccine (1 - 1-dose 60+ series) [facility] Comment on above: Postponed from 2006 (Declined at t his time) Start: 12-03-2024 RSV Vaccine (1 - 1-dose 75+ series) RSV Vaccine (1 - 1-dose 75+ series) [facility] Comment on above: Postponed from 2021 (Declined at t his time) Start: 12-03-2024 Shingrix Vaccine (2 of 3) Shingrix Vaccine (2 of 3) [facility] Comment on above: Postponed from 07/09/2016 (Declined at t his time) Start: 11-25-2024 End: 11-25-2024 Patient encounter procedure Radiology Comment on above: Granulomatous lung disease (HCC) [J84.10 ] Start: 11-23-2024 End: 11-23-2024 Patient encounter procedure 11/23/2024 3:40 PM EST Office Visit [facility] [place] [address] [facility] [place] [address] Andre Santana MD [address] [facility] [place] [address] 4 month f/u Family Medicine Stephanie Comment on above: 4 month f/u Start: 11-23-2024 End: 02-22-2025 Basic metabolic 2000 panel - Serum or Plasma [facility] Comment on above: Expected: 11/23/2024, Expires: Start: 11-23-2024 End: 02-22-2025 CBC W Auto Differential panel - Blood [facility] Comment on above: Expected: 11/23/2024, Expires: Start: 11-23-2024 End: 02-22-2025 Magnesium [Mass/volume] in Serum or Plasma [facility] Comment on above: Expected: 11/23/2024, Expires: Start: 11-23-2024 End: 02-22-2025 Thyrotropin [Units/volume] in Serum or Plasma [facility] Work Phone: Comment on above: Expected: 11/23/2024, Expires: Start: 11-12-2024 Creatinine measurement Serum Creatinine [facility] Start: 11-10-2024 COLOGUARD (FIT-DNA) COLOGUARD (FIT-DNA) [facility] Start: 11-10-2024 COLORECTAL CANCER SCREENING COLORECTAL CANCER SCREENING [facility] Start: 11-09-2024 Medicare Advantage Annual Wellness Visit Medicare Advantage Annual Wellness Visit [facility] Start: 11-06-2024 Creatinine measurement Serum Creatinine [facility] Start: 10-03-2024 End: 10-03-2024 Patient encounter procedure 10/03/2024 2:40 PM EST Office Visit Cardiology [address] [place] [id number] Darshan Abarca MD [address], [address] [place] [address] 1 year follow up Cardiology Comment on above: 1 year follow up Start: 09-15-2024 End: 09-15-2024 Patient encounter procedure 09/15/2024 1:20 PM EST Office Visit Family Medicine [place] [address] [place] [address] Sandy Holm SECTION WEAVER.INTELLIGENCE CHIEF [address] [place] [address] BP follow up [facility] Stephanie Comment on above: BP follow up Start: 09-12-2024 End: 09-12-2024 Patient encounter procedure 09/12/2024 3:20 PM EST Office Visit [facility] Stephanie [address] [place] [address] Trang Philippe, SECTION WEAVER.INTELLIGENCE CHIEF [address] [place] [address] 4 week follow up. [facility] Stephanie Comment on above: 4 week follow up. Start: 09-12-2024 End: 12-12-2024 Basic metabolic 2000 panel - Serum or Plasma BASIC METABOLIC PANEL Lab Routine Essential hypertension with goal blood pressure less than 140/90 Expected: 09/12/2024, Expires: 12/12/2024 [facility] Comment on above: Expected: 09/12/2024, Expires: Start: 09-12-2024 End: 12-12-2024 CBC W Auto Differential panel - Blood COMPLETE BLOOD COUNT AND DIFFERENTIAL Lab Routine Anemia, unspecified type Fatigue, unspecified type Expected: 09/12/2024, Expires: 12/12/[address] [facility] Work Phone: Comment on above: Expected: 09/12/2024, Expires: Start: 09-08-2024 Annual PCP Team Chronic Disease Visit Annual PCP Team Chronic Disease Visit [facility] Start: 08-29-2024 End: 11-28-2024 CBC W Auto Differential panel - Blood COMPLETE BLOOD COUNT AND DIFFERENTIAL Lab Routine Anemia, unspecified type Expected: 08/29/2024, Expires: 11/28/[address] [facility] Work Phone: Comment on above: Expected: 08/29/2024, Expires: Start: 08-21-2024 DIABETES SCREEN DIABETES SCREEN [facility] Start: 08-17-2024 Annual PCP Team Chronic Disease Visit Annual PCP Team Chronic Disease Visit [facility] Start: 08-17-2024 Complete blood count Hemoglobin/Hematocrit [facility] Start: 08-17-2024 Hemoglobin/Hematocrit Hemoglobin/Hematocrit [facility] Start: 08-17-2024 Serum Creatinine Serum Creatinine [facility] Start: 08-16-2024 End: 08-16-2025 CBC W Auto Differential panel - Blood COMPLETE BLOOD COUNT AND DIFFERENTIAL Lab Routine Anemia, unspecified type Expected: 08/16/2024, Expires: 08/16/2025 [facility] Comment on above: Expected: 08/16/2024, Expires: Start: 08-16-2024 End: 08-16-2025 Cobalamin (Vitamin B12) [Mass/volume] in Serum or Plasma VITAMIN B12 Lab Routine Anemia, unspecified type Expected: 08/16/2024, Expires: 08/16/2025 [facility] Comment on above: Expected: 08/16/2024, Expires: Start: 08-16-2024 End: 08-16-2025 Ferritin [Mass/volume] in Serum or Plasma FERRITIN Lab Routine Anemia, unspecified type Expected: 08/16/2024, Expires: 08/16/[address] [facility] Work Phone: Comment on above: Expected: 08/16/2024, Expires: Start: 08-16-2024 End: 08-16-2025 Folate [Mass/volume] in Serum or Plasma FOLATE, SERUM Lab Routine Anemia, unspecified type Expected: 08/16/2024, Expires: 08/16/2025 [facility] Comment on above: Expected: 08/16/2024, Expires: Start: 08-16-2024 End: 08-16-2025 Hemoglobin.gastrointestin al.lower [Presence] in Stool by Immunoassay IMMUNOCHEMICAL FECAL OCCULT BLOOD TEST Lab Routine Anemia, unspecified type Expected: 08/16/2024, Expires: 08/16/2025 [facility] Comment on above: Expected: 08/16/2024, Expires: Start: 08-16-2024 End: 08-16-2025 Iron and Iron binding capacity panel - Serum or Plasma IRON AND TIBC Lab Routine Anemia, unspecified type Expected: 08/16/2024, Expires: 08/16/2025 [facility] Comment on above: Expected: 08/16/2024, Expires: Start: 08-16-2024 End: 08-16-2025 RETICULOCYTE COUNT RETICULOCYTE COUNT Lab Routine Anemia, unspecified type Expected: 08/16/2024, Expires: 08/16/2025 [facility] Comment on above: Expected: 08/16/2024, Expires: Start: 08-13-2024 End: 08-13-2024 ambulatory 08/13/2024 9:30 AM EDT Results Only [facility] [address] [place] [address] Mixed hyperlipidemia [E78.2] [facility] Comment on above: Mixed hyperlipidemia [E78.2] Start: 08-12-2024 End: 08-12-2024 Patient encounter procedure 08/12/2024 2:20 PM EDT Office Visit Family Medicine [place] [address] [place], [place] [id number] Andre Santana MD [address] [place], [place] [id number] rash-follow up [facility] [place] Comment on above: rash-follow up Start: 08-12-2024 End: 11-11-2024 C reactive protein [Mass/volume] in Serum or Plasma C-REACTIVE PROTEIN Lab Routine Dermatitis Expected: 08/12/2024, Expires: 11/11/2024 [facility] Comment on above: Expected: 08/12/2024, Expires: Start: 08-12-2024 End: 11-11-2024 CBC W Auto Differential panel - Blood COMPLETE BLOOD COUNT AND DIFFERENTIAL Lab Routine Mixed hyperlipidemia Expected: 08/12/2024, Expires: 11/11/[address] [facility] Work Phone: Comment on above: Expected: 08/12/2024, Expires: Start: 08-12-2024 End: 11-11-2024 Comprehensive metabolic 2000 panel - Serum or Plasma COMPREHENSIVE METABOLIC PANEL Lab Routine Mixed hyperlipidemia Expected: 08/12/2024, Expires: 11/11/2024 [facility] Comment on above: Expected: 08/12/2024, Expires: Start: 08-12-2024 End: 11-11-2024 Creatine kinase [Enzymatic activity/volume] in Serum or Plasma CREATINE KINASE/CK Lab Routine Mixed hyperlipidemia Expected: 08/12/2024, Expires: 11/11/2024 [facility] Comment on above: Expected: 08/12/2024, Expires: Start: 08-12-2024 End: 11-11-2024 Erythrocyte sedimentation rate SEDIMENTATION RATE, WESTERGREN Lab Routine Dermatitis Expected: 08/12/2024, Expires: 11/11/2024 [facility] Comment on above: Expected: 08/12/2024, Expires: Start: 08-12-2024 End: 11-11-2024 Lipid 1996 panel - Serum or Plasma LIPID PANEL BASIC Lab Routine Mixed hyperlipidemia Expected: 08/12/2024, Expires: 11/11/2024 [facility] Comment on above: Expected: 08/12/2024, Expires: Start: 08-12-2024 End: 11-11-2024 Magnesium [Mass/volume] in Serum or Plasma MAGNESIUM Lab Routine Hypertension, essential Expected: 08/12/2024, Expires: 11/11/2024 [facility] Comment on above: Expected: 08/12/2024, Expires: Start: 08-12-2024 End: 11-11-2024 T4/FTI/T4U T4/FTI/T4U Lab Routine Fatigue, unspecified type Expected: 08/12/2024, Expires: 11/11/2024 [facility] Comment on above: Expected: 08/12/2024, Expires: Start: 08-12-2024 End: 11-11-2024 Thyrotropin [Units/volume] in Serum or Plasma THYROID STIMULATING HORMONE Lab Routine Fatigue, unspecified type Expected: 08/12/2024, Expires: 11/11/2024 [facility] Comment on above: Expected: 08/12/2024, Expires: Start: 08-03-2024 Serum Creatinine Serum Creatinine [facility] Start: 07-26-2024 End: 07-26-2024 Patient encounter procedure 07/26/2024 9:00 AM EDT Office Visit Vascular Surgery [address] [place] [address] Anitha Pacheco DO [address] [place] [address] 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] Vascular Surgery Comment on above: 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] Start: 07-25-2024 End: 07-25-2024 Patient encounter procedure 07/25/2024 9:00 AM EDT Office Visit Cardiology [address] [place] [id number] Darshan Abarca MD [address], [address] [place] [address] 06/18/24 in [place] [facility] Comment on above: [place] and stent place 06/18/24 in [place] Start: 07-18-2024 End: 07-18-2024 Patient encounter procedure Family Medicine [facility] Comment on above: HTN follow up Hospital follow up: stent placement, STEMI-Discharged from [facility] 07/06/24, see 07/07/24 phone note Start: 07-16-2024 ANNUAL PCP TEAM CHRONIC DISEASE VISIT ANNUAL PCP TEAM CHRONIC DISEASE VISIT [facility] Start: 07-10-2024 Covid-19 Vaccine ( season) Covid-19 Vaccine ( season) [facility] Start: 07-10-2024 Covid-19 Vaccine ( season) Covid-19 Vaccine () [facility] Start: 07-10-2024 Influenza vaccination [facility] Start: 07-05-2024 End: 07-05-2024 Patient encounter procedure 07/05/2024 2:00 PM EDT Office Visit Rheumatology [address] [place] [address] Siddharth Mcdaniel APRN.INTELLIGENCE CHIEF [address] [place] [address] 3-6 mo 1 hour with KAYLEE Mcdaniel Rheumatology Comment on above: 3-6 mo 1 hour with KAYLEE Mcdaniel Start: 07-02-2024 ANNUAL PCP TEAM CHRONIC DISEASE VISIT ANNUAL PCP TEAM CHRONIC DISEASE VISIT [facility] Start: 06-29-2024 SERUM CREATININE SERUM CREATININE [facility] Start: 06-17-2024 ANNUAL PCP TEAM CHRONIC DISEASE VISIT ANNUAL PCP TEAM CHRONIC DISEASE VISIT [facility] Start: 06-17-2024 SERUM CREATININE SERUM CREATININE [facility] Start: 06-08-2024 HEMOGLOBIN/HEMATOCRIT HEMOGLOBIN/HEMATOCRIT [facility] Start: 06-08-2024 SERUM CREATININE SERUM CREATININE [facility] Start: 06-02-2024 ANNUAL PCP TEAM CHRONIC DISEASE VISIT ANNUAL PCP TEAM CHRONIC DISEASE VISIT [facility] Start: 06-02-2024 BP CONTROLLED (<130/80) BP CONTROLLED (<130/80) [facility] Start: 05-08-2024 Influenza vaccination Influenza Vaccine (#1) [facility] Comment on above: Postponed from 07/10/2023 (Declined at t his time) Start: 01-23-2024 End: 04-23-2024 Urinalysis complete panel - Urine URINALYSIS, WITH MICROSCOPIC Lab Routine Microscopic hematuria Expected: 01/23/2024, Expires: 04/23/[address] [facility] Work Phone: Comment on above: Expected: 01/23/2024, Expires: Start: 12-10-2023 End: 03-10-2024 25-hydroxyvitamin D3 [Mass/volume] in Serum or Plasma VITAMIN D 25 HYDROXY Lab Routine Screening for osteoporosis Sjogren's syndrome without extraglandular involvement (HCC) Expected: 12/10/2023, Expires: 03/10/[address] [facility] Work Phone: Comment on above: Expected: 12/10/2023, Expires: Start: 12-10-2023 End: 03-10-2024 C reactive protein [Mass/volume] in Serum or Plasma C-REACTIVE PROTEIN (CRP) Lab Routine Screening for osteoporosis Sjogren's syndrome without extraglandular involvement (HCC) Expected: 12/10/2023, Expires: 03/10/[address] [facility] Work Phone: Comment on above: Expected: 12/10/2023, Expires: Start: 12-10-2023 End: 03-10-2024 Calcium.ionized [Moles/volume] in Blood CALCIUM IONIZED BLOOD Lab Routine Screening for osteoporosis Sjogren's syndrome without extraglandular involvement (HCC) Expected: 12/10/2023, Expires: 03/10/[address] [facility] Work Phone: Comment on above: Expected: 12/10/2023, Expires: Start: 12-10-2023 End: 03-10-2024 CBC W Auto Differential panel - Blood CBC + DIFF Lab Routine Screening for osteoporosis Sjogren's syndrome without extraglandular involvement (HCC) Expected: 12/10/2023, Expires: 03/10/[address] [facility] Work Phone: Comment on above: Expected: 12/10/2023, Expires: 4 Start: 12-10-2023 End: 03-10-2024 Comprehensive metabolic 2000 panel - Serum or Plasma COMP METABOLIC PANEL Lab Routine Screening for osteoporosis Sjogren's syndrome without extraglandular involvement (HCC) Expected: 12/10/2023, Expires: 03/10/[address] [facility] Work Phone: Comment on above: Expected: 12/10/2023, Expires: Start: 12-10-2023 End: 03-10-2024 Erythrocyte sedimentation rate SED RATE WESTERGREN Lab Routine Screening for osteoporosis Sjogren's syndrome without extraglandular involvement (HCC) Expected: 12/10/2023, Expires: 03/10/[address] [facility] Work Phone: Comment on above: Expected: 12/10/2023, Expires: Start: 12-10-2023 End: 03-10-2024 IMMUNOFIXATION SCREEN, SERUM IMMUNOFIXATION SCREEN, SERUM Lab Routine Screening for osteoporosis Sjogren's syndrome without extraglandular involvement (HCC) Expected: 12/10/2023, Expires: 03/10/[address] [facility] Work Phone: Comment on above: Expected: 12/10/2023, Expires: 4 Start: 12-10-2023 End: 03-10-2024 KAPPA/IRVING,FREE,SER KAPPA/IRVING,FREE,SER Lab Routine Screening for osteoporosis Sjogren's syndrome without extraglandular involvement (HCC) Expected: 12/10/2023, Expires: 03/10/[address] [facility] Work Phone: Comment on above: Expected: 12/10/2023, Expires: Start: 12-10-2023 End: 03-10-2024 Magnesium [Mass/volume] in Serum or Plasma MAGNESIUM BLD Lab Routine Screening for osteoporosis Sjogren's syndrome without extraglandular involvement (HCC) Expected: 12/10/2023, Expires: 03/10/[address] [facility] Work Phone: Comment on above: Expected: 12/10/2023, Expires: Start: 12-10-2023 End: 03-10-2024 Parathyrin.intact [Mass/volume] in Serum or Plasma PTH INTACT BLD Lab Routine Screening for osteoporosis Sjogren's syndrome without extraglandular involvement (HCC) Expected: 12/10/2023, Expires: 03/10/[address] [facility] Work Phone: Comment on above: Expected: 12/10/2023, Expires: 4 Start: 12-10-2023 End: 03-10-2024 Phosphate [Mass/volume] in Serum or Plasma PHOSPHORUS INORGANIC Lab Routine Screening for osteoporosis Sjogren's syndrome without extraglandular involvement (HCC) Expected: 12/10/2023, Expires: 03/10/[address] [facility] Work Phone: Comment on above: Expected: 12/10/2023, Expires: Start: 12-10-2023 End: 03-10-2024 Protein [Mass/volume] in Urine PROTEIN RANDOM UR Lab Routine Screening for osteoporosis Sjogren's syndrome without extraglandular involvement (HCC) Expected: 12/10/2023, Expires: 03/10/[address] [facility] Work Phone: Comment on above: Expected: 12/10/2023, Expires: Start: 12-10-2023 End: 03-10-2024 PROTEIN ELECTROPHORESIS SERUM W/INTERP PROTEIN ELECTROPHORESIS SERUM W/INTERP Lab Routine Screening for osteoporosis Sjogren's syndrome without extraglandular involvement (HCC) Expected: 12/10/2023, Expires: 03/10/[address] [facility] Work Phone: Comment on above: Expected: 12/10/2023, Expires: 4 Start: 12-10-2023 End: 03-10-2024 Rheumatoid factor [Units/volume] in Serum or Plasma RHEUMATOID FACTOR BL Lab Routine Screening for osteoporosis Sjogren's syndrome without extraglandular involvement (HCC) Expected: 12/10/2023, Expires: 03/10/[address] [facility] Work Phone: Comment on above: Expected: 12/10/2023, Expires: 4 Start: 12-10-2023 End: 03-10-2024 Thyrotropin [Units/volume] in Serum or Plasma TSH BLD Lab Routine Screening for osteoporosis Sjogren's syndrome without extraglandular involvement (HCC) Expected: 12/10/2023, Expires: 03/10/[address] [facility] Work Phone: Comment on above: Expected: 12/10/2023, Expires: 4 Start: 12-10-2023 End: 03-10-2024 Urinalysis complete panel - Urine URINALYSIS, WITH MICROSCOPIC Lab Routine Screening for osteoporosis Sjogren's syndrome without extraglandular involvement (HCC) Expected: 12/10/2023, Expires: 03/10/[address] [facility] Work Phone: Comment on above: Expected: 12/10/2023, Expires: 4 Start: 09-15-2023 ANNUAL PCP TEAM CHRONIC DISEASE VISIT ANNUAL PCP TEAM CHRONIC DISEASE VISIT [facility] Start: 09-08-2023 Cystourethroscopy CYSTO.PANENDO Procedures Routine Microscopic hematuria Expected: 09/08/2023 (Approximate) [facility] Work Phone: Comment on above: Expected: 09/08/2023 (Approximate) Start: 09-02-2023 ANNUAL PCP TEAM CHRONIC DISEASE VISIT ANNUAL PCP TEAM CHRONIC DISEASE VISIT [facility] Start: 09-01-2023 End: 12-01-2023 CREATININE BLD CREATININE BLD Lab Routine Microscopic hematuria Expected: 09/01/2023 (Approximate), Expires: 12/01/[address] [facility] Work Phone: Comment on above: Expected: 09/01/2023 (Approximate), Expi res: 12/01/2023 Start: 09-01-2023 End: 09-25-2024 Ct abdomen & pelvis w/o contrst 1/> body re CT UROGRAM WO/W IVCON Radiology Routine Microscopic hematuria Expected: 09/01/2023 (Approximate), Expires: 09/25/[address] [facility] Work Phone: Comment on above: Expected: 09/01/2023 (Approximate), Expi res: 09/25/2024 Start: 08-28-2023 BP CONTROLLED (<130/80) BP CONTROLLED (<130/80) [facility] in Start: 08-15-2023 End: 10-15-2023 Basic metabolic 2000 panel - Serum or Plasma BASIC METABOLIC PNL Lab Routine Urinary frequency Expected: 08/15/2023, Expires: 10/15/[address] [facility] Work Phone: Comment on above: Expected: 08/15/2023, Expires: 3 Start: 08-11-2023 ANNUAL PCP TEAM CHRONIC DISEASE VISIT ANNUAL PCP TEAM CHRONIC DISEASE VISIT [facility] Start: 08-11-2023 BP CONTROLLED (<130/80) BP CONTROLLED (<130/80) [facility] Start: 07-16-2023 End: 09-15-2023 Urinalysis complete panel - Urine URINALYSIS, WITH MICROSCOPIC Lab Routine Urinary frequency Expected: 07/16/2023, Expires: 09/15/[address] [facility] Work Phone: Comment on above: Expected: 07/16/2023, Expires: 3 Start: 07-10-2023 Influenza vaccination [facility] Start: 07-07-2023 BP CONTROLLED (<130/80) BP CONTROLLED (<130/80) [facility] Start: 07-01-2023 ANNUAL PCP TEAM CHRONIC DISEASE VISIT ANNUAL PCP TEAM CHRONIC DISEASE VISIT [facility] Start: 07-01-2023 SHINGRIX VACCINE (2 of 3) SHINGRIX VACCINE (2 of 3) [facility] Comment on above: Postponed from 07/09/2016 (Insurance Cov erage) Start: 07-01-2023 Urine microalbumin profile DTAP,TDAP,TD (2 - Td or Tdap) [facility] Comment on above: Postponed from 04/23/2017 (Insurance Cov erage) Start: 06-17-2023 End: 08-17-2023 Thyrotropin [Units/volume] in Serum or Plasma [facility] Work Phone: Comment on above: Expected: 06/17/2023, Expires: 3 Start: 06-09-2023 End: 08-09-2023 Basic metabolic 2000 panel - Serum or Plasma BASIC METABOLIC PNL Lab Routine Dehydration Expected: 06/09/2023, Expires: 08/09/[address] [facility] Work Phone: Comment on above: Expected: 06/09/2023, Expires: 3 Start: 05-08-2023 Hepatitis B surface antibody level LDL Cholesterol [facility] Start: 05-08-2023 SERUM CREATININE SERUM CREATININE [facility] Start: 04-22-2023 BP CONTROLLED (<130/80) BP CONTROLLED (<130/80) [facility] in Start: 02-25-2023 BP CONTROLLED (<130/80) BP CONTROLLED (<130/80) [facility] Start: 01-08-2023 End: 03-10-2023 25-hydroxyvitamin D3 [Mass/volume] in Serum or Plasma VITAMIN D 25 HYDROXY Lab Routine Encounter for screening for osteoporosis Expected: 01/08/2023, Expires: 03/10/[address] [facility] Work Phone: Comment on above: Expected: 01/08/2023, Expires: 3 Start: 11-28-2022 End: 01-28-2023 C reactive protein [Mass/volume] in Serum or Plasma C-REACTIVE PROTEIN (CRP) Lab Routine Sjoegren syndrome (HCC) Elevated sed rate Expected: 11/28/2022, Expires: 01/28/[address] [facility] Work Phone: Comment on above: Expected: 11/28/2022, Expires: 3 Start: 11-28-2022 End: 01-28-2023 CBC W Auto Differential panel - Blood CBC + DIFF Lab Routine Sjoegren syndrome (HCC) Elevated sed rate Expected: 11/28/2022, Expires: 01/28/[address] [facility] Work Phone: Comment on above: Expected: 11/28/2022, Expires: 3 Start: 11-28-2022 End: 01-28-2023 Comprehensive metabolic 2000 panel - Serum or Plasma COMP METABOLIC PANEL Lab Routine Sjoegren syndrome (HCC) Elevated sed rate Expected: 11/28/2022, Expires: 01/28/[address] [facility] Work Phone: Comment on above: Expected: 11/28/2022, Expires: 3 Start: 11-28-2022 End: 01-28-2023 Erythrocyte sedimentation rate SED RATE WESTERGREN Lab Routine Sjoegren syndrome (HCC) Elevated sed rate Expected: 11/28/2022, Expires: 01/28/[address] [facility] Work Phone: Comment on above: Expected: 11/28/2022, Expires: 3 Start: 11-09-2022 ADVANCE DIRECTIVE DISCUSSION ADVANCE DIRECTIVE DISCUSSION [facility] Start: 10-24-2022 ANNUAL PCP TEAM CHRONIC DISEASE VISIT ANNUAL PCP TEAM CHRONIC DISEASE VISIT [facility] Start: 10-16-2022 HEMOGLOBIN/HEMATOCRIT HEMOGLOBIN/HEMATOCRIT [facility] Start: 10-16-2022 SERUM CREATININE SERUM CREATININE [facility] Start: 09-02-2022 End: 11-02-2022 Hepatic function 2000 panel - Serum or Plasma HEPATIC FUNCTION PNL Lab Routine Lumbar stenosis with neurogenic claudication Bilirubin in urine Expected: 09/02/2022, Expires: 11/02/[address] [facility] Work Phone: Comment on above: Expected: 09/02/2022, Expires: 2 Start: 09-02-2022 End: 11-02-2022 Urinalysis complete panel - Urine [facility] Work Phone: Comment on above: Expected: 09/02/2022, Expires: 2 Start: 09-02-2022 End: 11-02-2022 URINALYSIS, DIPSTICK ONLY URINALYSIS, DIPSTICK ONLY Lab Routine Urinary pain Expected: 09/02/2022, Expires: 11/02/[address] [facility] Work Phone: Comment on above: Expected: 09/02/2022, Expires: 2 Start: 08-11-2022 End: 10-11-2022 Bacteria identified in Urine by Culture [facility] Work Phone: Comment on above: Expected: 08/11/2022, Expires: 2 Start: 08-11-2022 End: 10-11-2022 Urinalysis complete panel - Urine [facility] Work Phone: Comment on above: Expected: 08/11/2022, Expires: 2 Start: 07-10-2022 Influenza vaccination [facility] Start: 07-04-2022 End: 09-03-2022 Cobalamin (Vitamin B12) [Mass/volume] in Serum or Plasma VITAMIN B12 BLOOD Lab Routine Sjoegren syndrome (HCC) Expected: 07/04/2022, Expires: 09/03/[address] [facility] Work Phone: Comment on above: Expected: 07/04/2022, Expires: Start: 07-04-2022 End: 09-03-2022 Complement C3 [Mass/volume] in Serum or Plasma C3 COMPLEMENT BLD Lab Routine Sjoegren syndrome (HCC) Expected: 07/04/2022, Expires: 09/03/[address] [facility] Work Phone: Comment on above: Expected: 07/04/2022, Expires: Start: 07-04-2022 End: 09-03-2022 Complement C4 [Mass/volume] in Serum or Plasma C4 COMPLEMENT BLD Lab Routine Sjoegren syndrome (HCC) Expected: 07/04/2022, Expires: 09/03/[address] [facility] Work Phone: Comment on above: Expected: 07/04/2022, Expires: 2 Start: 07-04-2022 End: 09-03-2022 Creatine kinase [Enzymatic activity/volume] in Serum or Plasma CK CREATINE KINASE Lab Routine Sjoegren syndrome (HCC) Expected: 07/04/2022, Expires: 09/03/[address] [facility] Work Phone: Comment on above: Expected: 07/04/2022, Expires: 2 Start: 07-04-2022 End: 09-03-2022 Cryoglobulin [Mass/volume] in Serum or Plasma CRYOGLOBULIN BL Lab Routine Sjoegren syndrome (HCC) Expected: 07/04/2022, Expires: 09/03/[address] [facility] Work Phone: Comment on above: Expected: 07/04/2022, Expires: Start: 07-04-2022 End: 09-03-2022 PROTEIN ELECTROPHORESIS SERUM W/INTERP PROTEIN ELECTROPHORESIS SERUM W/INTERP Lab Routine Sjoegren syndrome (HCC) Expected: 07/04/2022, Expires: 09/03/[address] [facility] Work Phone: Comment on above: Expected: 07/04/2022, Expires: 2 Start: 07-04-2022 End: 09-03-2022 Thyrotropin [Units/volume] in Serum or Plasma TSH BLD Lab Routine Sjoegren syndrome (HCC) Expected: 07/04/2022, Expires: 09/03/[address] [facility] Work Phone: Comment on above: Expected: 07/04/2022, Expires: 2 Start: 07-01-2022 End: 08-31-2022 CHINMAY BY IFA WITH REFLEX [facility] Work Phone: Comment on above: Expected: 07/01/2022, Expires: 2 Start: 07-01-2022 End: 08-31-2022 Borrelia burgdorferi IgG and IgM panel - Serum [facility] Work Phone: Comment on above: Expected: 07/01/2022, Expires: 2 Start: 07-01-2022 End: 08-31-2022 C reactive protein [Mass/volume] in Serum or Plasma [facility] Work Phone: Comment on above: Expected: 07/01/2022, Expires: 2 Start: 07-01-2022 End: 08-31-2022 Rheumatoid factor [Units/volume] in Serum or Plasma [facility] Work Phone: Comment on above: Expected: 07/01/2022, Expires: 2 Start: 07-01-2022 End: 08-31-2022 Urate [Mass/volume] in Serum or Plasma [facility] Work Phone: Comment on above: Expected: 07/01/2022, Expires: 2 Start: 04-29-2022 End: 06-29-2022 Basic metabolic 2000 panel - Serum or Plasma BASIC METABOLIC PNL Lab Routine Stage 3b chronic kidney disease (HCC) Expected: 04/29/2022, Expires: 06/29/[address] [facility] Work Phone: Comment on above: Expected: 04/29/2022, Expires: 2 Start: 04-29-2022 End: 06-29-2022 CBC W Auto Differential panel - Blood CBC + DIFF Lab Routine Stage 3b chronic kidney disease (HCC) Expected: 04/29/2022, Expires: 06/29/[address] [facility] Work Phone: Comment on above: Expected: 04/29/2022, Expires: 2 Start: 04-29-2022 End: 06-29-2022 Hemoglobin A1c in Blood HGB A1C Lab Routine Hyperglycemia Expected: 04/29/2022, Expires: 06/29/[address] [facility] Work Phone: Comment on above: Expected: 04/29/2022, Expires: 2 Start: 04-29-2022 End: 06-29-2022 Lipid 1996 panel - Serum or Plasma LIPID PANEL BASIC Lab Routine Mixed hyperlipidemia Expected: 04/29/2022, Expires: 06/29/[address] [facility] Work Phone: Comment on above: Expected: 04/29/2022, Expires: 2 Start: 11-09-2021 ADVANCE DIRECTIVE DISCUSSION ADVANCE DIRECTIVE DISCUSSION [facility] Start: 2021 RSV Vaccine (1 - 1-dose 75+ series) RSV Vaccine (1 - 1-dose 75+ series) [facility] Start: 01-04-2020 FECAL OCCULT BLOOD FECAL OCCULT BLOOD [facility] Start: 04-23-2017 Urine microalbumin profile [facility] Start: 01-10-2017 Colonoscopy COLONOSCOPY [facility] Start: 07-09-2016 SHINGRIX VACCINE (2 of 3) SHINGRIX VACCINE (2 of 3) [facility] Start: 2006 RSV Vaccine (1 - 1-dose 60+ series) RSV Vaccine (1 - 1-dose 60+ series) [facility] Start: [address] COLONOGRAPHY [facility] Start: 1991 SIGMOIDOSCOPY SIGMOIDOSCOPY [facility] Start: 1964 BP CONTROLLED (<130/80) BP CONTROLLED (<130/80) [facility] Start: 1951 COVID-19 VACCINE (#1) COVID-19 VACCINE (#1) [facility] Start: 1950 COVID-19 VACCINE (1) COVID-19 VACCINE (1) [facility] Start: 04-13-1946 COVID-19 VACCINE (#1) COVID-19 VACCINE (#1) [facility] Bacteria identified in Urine by Culture URINE CULTURE Microbiology Routine Sensation of pressure in bladder area Feeling of incomplete bladder emptying Ordered: 07/28/[address] [facility] Work Phone: Comment on above: Ordered: 07/28/2022 Bacteria identified in Urine by Culture URINE CULTURE Microbiology Routine Urinary frequency Ordered: 07/16/[address] [facility] Work Phone: Comment on above: Ordered: 07/16/2023 Bacteria identified in Urine by Culture URINE CULTURE Microbiology Routine Microscopic hematuria Ordered: 08/25/[address] [facility] Work Phone: Comment on above: Ordered: 08/25/2023 Bacteria identified in Urine by Culture URINE CULTURE Microbiology Routine Gross hematuria 09/12/2024 7:48 PM EST [facility] End: 01-14-2026 BD DXA TRABECULAR BONE SCORE (TBS) BD DXA TRABECULAR BONE SCORE (TBS) Radiology Routine Sjogren's syndrome without extraglandular involvement (HCC) Osteopenia, unspecified location Rash and nonspecific skin eruption GUERRA (dyspnea on exertion) 1 Occurrences starting 12/15/2024 until 01/14/2026 [facility] Comment on above: 1 Occurrences starting 12/15/2024 until 01/14/2026 BLADDER SCAN BLADDER SCAN Pro cedures Routine Sensation of pressure in bladder area Feeling of incomplete bladder emptying Ordered: 07/28/[address] [facility] Work Phone: Comment on above: Ordered: 07/28/2022 BLADDER SCAN BLADDER SCAN Pro cedures Routine Feeling of incomplete bladder emptying Ordered: 09/23/[address] [facility] Work Phone: Comment on above: Ordered: 09/23/2022 CARDIAC [place] CARD[place] BIC Routine Mixed hyperlipidemia Primary hypertension Coronary artery disease involving [place] coronary artery of [place] heart without angina pectoris Ordered: 10/03/[address] [facility] Work Phone: Comment on above: Ordered: 10/03/2024 Cobalamin (Vitamin B 12) [Mass/volume] in Serum or Plasma VITAMIN B12 BLOOD Lab Routine Sjoegren syndrome ([facility]) 07/07/2022 2:15 PM EDT [facility] Work Phone: Complement C3 [Mass/volume] in Serum or Plasma C3 COMPLEMENT BLD Lab Routine Sjoegren syndrome ([facility]) 07/07/2022 2:15 PM EDT [facility] Work Phone: Complement C4 [Mass/volume] in Serum or Plasma C4 COMPLEMENT BLD Lab Routine Sjoegren syndrome ([facility]) 07/07/2022 2:15 PM EDT [facility] Work Phone: COVID & INFLUENZA A/ B & RSV NAAT, ROUTINE COVID & INFLUENZA A/B & RSV NAAT, ROUTINE Microbiology Routine URI, acute 01/20/2024 4:46 PM EDT [facility] Work Phone: Creatine kinase [Enzymatic activity/volume] in Serum or Plasma CK CREATINE KINASE Lab Routine Sjoegren syndrome ([facility]) 07/07/2022 2:15 PM EDT [facility] Work Phone: End: 01-08-2026 CT Chest WO contrast CT CHEST WO IVCON Radiology Routine Lung nodules 1 Occurrences starting 12/09/2024 until 01/08/[address] [facility] Work Phone: Comment on above: 1 Occurrences starting 12/09/2024 until 01/08/2026 CT Chest WO contrast CT CHEST WO IVCON Radiology Routine Lung nodules 12/19/2024 3:48 PM EST [facility] Work Phone: End: 08-08-2024 Ct thorax w/o contrast material CT CHEST WO IVCON Radiology Routine Chest pain, unspecified type 1 Occurrences starting 07/10/2023 until 08/08/[address] [facility] Work Phone: Comment on above: 1 Occurrences starting 07/10/2023 until 08/08/2024 CYTOLOGY NON-FURNACE KEEPER CYTOLOGY NON-GY N Lab Routine Microscopic hematuria Ordered: 08/25/[address] [facility] Work Phone: Comment on above: Ordered: 08/25/2023 End: 01-14-2026 DXA Skeletal system.axial Views for bone density DXA-AXIAL SKELETON Radiology Routine Sjogren's syndrome without extraglandular involvement (HCC) Osteopenia, unspecified location Rash and nonspecific skin eruption GUERRA (dyspnea on exertion) 1 Occurrences starting 12/15/2024 until 01/14/[address] [facility] Work Phone: Comment on above: 1 Occurrences starting 12/15/2024 until 01/14/2026 DXA Skeletal system. axial Views for bone density DXA-AXIAL SKELETON Radiology Routine Sjogren's syndrome without extraglandular involvement (HCC) Osteopenia, unspecified location Rash and nonspecific skin eruption GUERRA (dyspnea on exertion) 01/20/2025 3:43 PM EDT [facility] Work Phone: End: 12-28-2023 DXA-AXIAL SKELETON DXA-AXIAL SKELETON Radiology Routine Encounter for screening for osteoporosis 1 Occurrences starting 11/28/2022 until 12/28/[address] [facility] Work Phone: Comment on above: 1 Occurrences starting 11/28/2022 until 12/28/2023 End: 06-17-2024 ECG COMPLETE ECG COMPLETE ECG Routine Palpitations 1 Occurrences starting 06/17/2023 until 06/17/[address] [facility] Work Phone: Comment on above: 1 Occurrences starting 06/17/2023 until 06/17/2024 ECG COMPLETE ECG COMPLETE ECG 07/25/2024 10:31 AM EDT [facility] ECG COMPLETE ECG COMPLETE ECG Routine Palpitations 11/23/2024 4:21 PM EST [facility] ECG COMPLETE ECG COMPLETE ECG Routine Lightheaded Ordered: 04/17/2025 [facility] Comment on above: Ordered: 04/17/2025 Guidance for percuta neous biopsy.core needle of Thyroid gland IMAGING GUIDED BIOPSY THYROID Radiology Routine Multiple thyroid nodules Ordered: 02/06/[address] [facility] Work Phone: Comment on above: Ordered: 02/06/2025 Guidance for percuta neous biopsy.core needle of Thyroid gland IMAGING GUIDED BIOPSY THYROID Radiology Routine Solitary thyroid nodule Ordered: 04/24/[address] [facility] Work Phone: Comment on above: Ordered: 04/24/2025 GRANT SCREENING GRANT SCREENING Ra diology Routine Visit for screening mammogram Ordered: 01/07/[address] [facility] Work Phone: Comment on above: Ordered: 01/07/2023 End: 10-02-2023 Mri spinal canal lumbar w/o contrast material MRI LUMBAR SPINE WO IVCON Radiology HODA Right lumbar radiculitis Lumbar stenosis with neurogenic claudication Intractable pain Foot drop, left 1 Occurrences starting 09/02/2022 until 10/02/[address] [facility] Work Phone: Comment on above: 1 Occurrences starting 09/02/2022 until 10/02/2023 OUTSIDE VENDOR CARDI AC OUTPATIENT EXTENDED RHYTHM RECORDING (WITHOUT TELEMETRY) OUTSIDE VENDOR CARDIAC OUTPATIENT EXTENDED RHYTHM RECORDING (WITHOUT TELEMETRY) Holter Routine Atrial tachycardia (HCC) Palpitations Ordered: 11/23/2024 [facility] Comment on above: Ordered: 11/23/2024 Patient Education [facility] Work Phone: PROTEIN ELECTROPHORE SIS SERUM W/INTERP PROTEIN ELECTROPHORESIS SERUM W/INTERP Lab Routine Sjoegren syndrome (HCC) 07/07/2022 2:15 PM EDT [facility] Work Phone: PT PLAN OF CARE CERTIFICATION PT PLAN OF CARE CERTIFICATION Procedures Routine Sciatica, right side Ordered: 08/27/[address] [facility] Comment on above: Ordered: 08/27/2022 PT PLAN OF CARE CERTIFICATION PT PLAN OF CARE CERTIFICATION Procedures Routine Sciatica, right side Ordered: 09/30/[address] [facility] Work Phone: Comment on above: Ordered: 09/30/2022 Thyrotropin [Units/volume] in Serum or Plasma TSH BLD Lab Routine Sjoegren syndrome (HCC) 07/07/2022 2:15 PM EDT [facility] Work Phone: Troponin T.cardiac [Mass/volume] in Serum or Plasma by High sensitivity method [facility] URINALYSIS, REFLEX MICROSCOPIC URINALYSIS, REFLEX MICROSCOPIC Lab Routine Sensation of pressure in bladder area Feeling of incomplete bladder emptying Ordered: 07/28/[address] [facility] Work Phone: Comment on above: Ordered: 07/28/2022 End: 09-15-2024 US ABD RIGHT UPPER QUADRANT US ABD RIGHT UPPER QUADRANT Radiology Routine 1 Occurrences starting 08/17/2023 until 09/15/[address] [facility] Work Phone: Comment on above: 1 Occurrences starting 08/17/2023 until 09/15/2024 End: 05-22-2023 US KIDNEY/BLADDER US KIDNEY/BLADDER Radiology Routine Atrophic vaginitis 1 Occurrences starting 04/22/2022 until 05/22/[address] [facility] Work Phone: Comment on above: 1 Occurrences starting 04/22/2022 until 05/22/2023 End: 09-12-2023 Us pelvic nonobstetric image dcmtn limited/f/u US PELVIS BLADDER Radiology Routine Feeling of incomplete bladder emptying 1 Occurrences starting 08/13/2022 until 09/12/[address] [facility] Work Phone: Comment on above: 1 Occurrences starting 08/13/2022 until 09/12/2023 End: 08-17-2025 US Thyroid gland US THYROID/PARATHYROID Radiology Routine Enlarged thyroid 1 Occurrences starting 07/18/2024 until 08/17/[address] [facility] Work Phone: Comment on above: 1 Occurrences starting 07/18/2024 until 08/17/2025 US Thyroid gland US THYROID/PARA THYROID Radiology Routine Enlarged thyroid 11/25/2024 2:08 PM EST [facility] Work Phone: End: 05-17-2026 XR Cervical spine AP and Lateral and oblique XR CERV OTHER 4V AP/LAT/OBL Radiology Routine Neck pain Lightheaded 1 Occurrences starting 04/17/2025 until 05/17/[address] [facility] Work Phone: Comment on above: 1 Occurrences starting 04/17/2025 until 05/17/2026 XR Cervical spine AP and Lateral and oblique XR CERV OTHER 4V AP/LAT/OBL Radiology Routine Neck pain Lightheaded 04/21/2025 4:22 PM EDT [facility] Work Phone: End: 08-01-2023 XR DIGIT GENERAL 3V FRONTAL/LAT/OBL LEFT XR DIGIT GENERAL 3V FRONTAL/LAT/OBL LEFT Radiology Routine Arthritis of carpometacarpal (CMC) joint of both thumbs 1 Occurrences starting 07/02/2022 until 08/01/[address] [facility] Work Phone: Comment on above: 1 Occurrences starting 07/02/2022 until 08/01/2023 End: 08-01-2023 XR DIGIT GENERAL 3V FRONTAL/LAT/OBL RIGHT XR DIGIT GENERAL 3V FRONTAL/LAT/OBL RIGHT Radiology Routine Arthritis of carpometacarpal (CMC) joint of both thumbs 1 Occurrences starting 07/02/2022 until 08/01/[address] [facility] Work Phone: Comment on above: 1 Occurrences starting 07/02/2022 until 08/01/2023 End: 12-28-2023 XR HIP GENERAL 3V PELV/AP/LAT RIGHT XR HIP GENERAL 3V PELV/AP/LAT RIGHT Radiology Routine Pain in right hip 1 Occurrences starting 11/28/2022 until 12/28/[address] [facility] Work Phone: Comment on above: 1 Occurrences starting 11/28/2022 until 12/28/2023 [facility] Immunizations Immunization Date Immunization Notes Care Provider Fa menahuy 07-22-2018 pneumococcal conjuga te vaccine, 13 peggy Evans MD Work Phone: [facility] 07-22-2018 influenza virus vacc ine, unspecified formulation Jacquie Evans MD Work Phone: [facility] 12-04-2016 influenza, high dose seasonal, preservative-free Jacquie Evans MD Work Phone: [facility] Work Phone: 05-14-2016 pneumococcal polysaccharide vaccine, 23 peggy Evans MD Work Phone: [facility] Work Phone: 05-14-2016 zoster vaccine, live Shakeel Evans MD Work Phone: [facility] Work Phone: 11-14-2014 influenza, high dose seasonal, preservative-free Jacquie Evans MD Work Phone: [facility] 10-24-2013 influenza virus vacc ine, unspecified formulation Jacquie Evans MD Work Phone: [facility] 12-05-2011 influenza virus vacc ine, unspecified formulation Jacquie Evans MD Work Phone: [facility] Work Phone: 09-21-2010 pneumococcal polysaccharide vaccine, 23 peggy Evans MD Work Phone: [facility] Work Phone: 09-04-2009 influenza virus vacc ine, whole virus Jacquie Evans MD Work Phone: [facility] 09-08-2008 influenza virus vacc ine, whole virus Jacquie Evans MD Work Phone: [facility] 09-07-2008 influenza virus vacc ine, unspecified formulation Jacquie Evans MD Work Phone: [facility] 09-17-2007 influenza virus vacc ine, whole virus Jacquie Evans MD Work Phone: [facility] 04-23-2007 tetanus toxoid, redu amanda diphtheria toxoid, and acellular pertussis vaccine, adsorbed Jacquie Evans MD Work Phone: [facility] 09-03-2005 influenza virus vacc ine, unspecified formulation Jacquie Evans MD Work Phone: [facility] Payers Date Payer Category Payer Self-pay [id number] 2021 Medicare HUMANA MEDICARE HUMANA MEDICARE PPO [id number] 2021-[facility] [phone] [place] [address] PPO [id number] 2019 Medicare [id number] 2019 Medicare (Managed Care) [id number]. [id number] 2019 Medicare [id number] 1945 Unknown [id number] 1945 Unknown [id number] Unknown [id number] Unknown [id number] Unknown [id number] Unknown [id number] Unknown [id number] Unknown [id number] Unknown [id number] Unknown [id number] Unknown [id number] Unknown [id number] Unknown [id number] Social History Date Type Detail Facility Start: 07-01-2022 End: 02-06-2025 Tobacco smoking status NHIS Ex-smoker [facility] Work Phone: Start: 11-09-1960 End: 11-09-1980 History of tobacco use Current smoker [facility] Start: 11-09-1960 End: 11-09-1980 History of tobacco use Cigarette Smoker [facility] Start: 12-28-2020 End: 02-25-2022 Alcohol intake Current non-drinker of alcohol (finding) [facility] Start: 09-02-2011 End: 07-01-2022 Tobacco Comment up to 3 PPD [facility] Start: 1945 Sex Assigned At Not on file C [facility] Start: 12-10-2020 End: 09-20-2024 Exposure to SARS-CoV-2 (event) Not sure [facility] Start: 07-01-2022 End: 06-02-2023 Cigarettes smoked current (pack per day) - Reported 1.5 [facility] Start: 07-01-2022 End: 02-06-2025 Tobacco use and exposure Smokeless tobacco non-user [facility] Start: 10-23-2022 End: 06-02-2023 Tobacco use panel [facility] Start: 10-10-2012 Adult Depression Screening Assessment 0 [facility] Start: 08-25-2023 End: 06-28-2025 Alcohol intake Ex-drinker (finding) [facility] Tobacco smoking stat us VAIS Tobacco smoking consumption unknown [facility] Work Phone: History of tobacco use Passive smoker [facility] Start: 06-26-2020 Cigarettes Cigarettes [facility] Start: 02-07-2025 Sex Female (finding) [facility] Start: 1945 Sex Assigned At Female [facility] Goals Date Patient Goal Desired Activity /State Personal health goal Functional Status Date Assessment Result Facility 06-06-2025 Functional status Ambulates [facility] Work Phone: 08-01-2021 Are you deaf, or do you have serious difficulty hearing No 08/01/2021 2:43 PM EDT Sylvia Kline RN No [facility] 08-01-2021 Are you blind, or do you have serious difficulty seeing, even when wearing glasses No 08/01/2021 2:43 PM EDT Sylvia Kline RN No [facility] 08-01-2021 Do you have serious difficulty walking or climbing stairs No 08/01/2021 2:43 PM EDT Sylvia Kline RN No [facility] 08-01-2021 Do you have difficul ty dressing or bathing No 08/01/2021 2:43 PM EDSylvia Sherman RN No [facility] 08-01-2021 Because of a physica l, mental, or emotional condition, do you have difficulty doing errands alone such as visiting a physician's office or shopping No 08/01/2021 2:43 PM EDT Sylvia Kline RN No [facility] Mental Status Date Assessment Result Facility 06-06-2025 Cognitive function Voice/Name [facility] Work Phone: 06-05-2025 Cognitive function Awake;Alert;A ppropriate;Fol lows Commands [facility] Work Phone: 02-28-2025 Cognitive function Level Of Cons ciousness Awake;Alert;Appropriate;Fol lows Commands [facility] Work Phone: 08-01-2021 Because of a physica l, mental, or emotional condition, do you have serious difficulty concentrating, remembering, or making decisions No 08/01/2021 2:43 PM EDT Sylvia Kline RN No [facility] Clinical Notes 01-09-2021 to 07-05-2025 Telephone Encounter - Yocasta Stevenson LPN - 07/05/2025 1:15 PM EDTTelephone Encounter - Yocasta Stevenson LPN - 07/05/2025 1:15 PM EDTTelephone Encounter - Andre Santana MD - 07/05/2025 11:58 AM EDT Note Date & Type Note Facility 07-05-2025 Telephone encounter Note Patient notified. [facility] 07-05-2025 Miscellaneous Notes Patient notified. Let her know her echo is overall ok. The carotid duplex shows mild narrowing on the left. For that we simply could repeat an us in one year. It does show a nodule on her thyroid, but we already know that. documented in this encounter [facility] 07-05-2025 Telephone encounter Note Let her know her echo is overall ok. The carotid duplex shows mild narrowing on the left. For that we simply could repeat an us in one year. It does show a nodule on her thyroid, but we already know that. [facility] 06-30-2025 Telephone encounter Note Pt notified. Transferred to [facility] to set up Neuro appt. Patricia Motley MA [facility] 06-30-2025 Miscellaneous Notes Pt notified. Transferred to [facility] to set up Neuro appt. Patricia Motley MA That is one of the reasons I am sending her. Going to make sure. Even more so just because I don't have a reason why she had confusion and dizziness. Pt called and is notified of providers results and instructions. Pt voices understanding. Pt states she has a cataract in her R eye so her vision is fuzzy, but this isn't a new change for her. Pt was asking if provider through this finding on the MRI could have been related to the dizziness she was having. Pt said she was going to wait for providers response to set up Neurology appointment. Sarthak Clemons, IVONNE I attempted to call and no answer. Please call and let her know below. MRI overall ok. 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 This is a finding that is a common finding and usually does not mean much. The pituitary sometimes flattens over time and just is less prominent on the scan. If that is all it is, it means nothing. Make sure no vision issues. Do a morning lab draw to make sure the pituitary is ok. To be on safe side given her recent confusion issues, can see neurology. documented in this encounter [facility] 06-30-2025 Telephone encounter Note That is one of the reasons I am sending her. Going to make sure. Even more so just because I don't have a reason why she had confusion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 Reason For Visit: CONFUSION Diagnosis Discharge Diagnosis (1) Palpitations: Status: Acute Code(s): R00.2 - Palpitations (2) Confusion: Status: Acute Code(s): R41.0 - Disorientation, unspecified Medications at Discharge Home Medications aspirin 81 mg tablet,delayed release (Aspir-) 81 mg PO DAILY heart health 11/24/18 carvedilol 6.25 mg tablet 6.25 mg PO Q12H blood pressure 02/28/25 clopidogrel 75 mg tablet 75 mg PO DAILY anti platelet 02/28/25 losartan 100 mg tablet 100 mg PO DAILY blood pressure 02/28/25 rosuvastatin 10 mg tablet 10 mg PO QHS cholesterol 02/28/25 Hospital Course Operations None Procedures None Summary of Care Provided Minutes Spent on Discharge: 32 Hospital Course: Per HPI: TERRI BURCIAGA, is a 79 F who presents to the hospital with palpitations and chest pain. EKGwas nonischemic and initial troponin was 9 with subsequent troponin of 13. From a chest pain standpoint she was feeling much better however family noticed that she was little bit confused which is new from yesterday. This is likely due to sleep deprivation as she did not sleep at all last night. UAwas unremarkable and chest x-ray was negative for pneumonia. Skin exam does not show any signs of cellulitis and her confusion has resolved however she lives in [place] and the family lives here in [place] and no one can stay with her and so they are concerned about her going home and would like her to be observed overnight. She is afebrile without a leukocytosis and lab work is unremarkable other than a creatinine of 1.33 with GFR of 41 which is at baseline. Hospital Course: 1. Confusion with palpitations?79-year-old female presented to hospital with palpitations and some mild chest discomfort, troponins were unremarkable and EKGremained nonischemic. Her confusion had resolved by the time I evaluated her int ER and there is no obvious source, as UA was not infectiousand chest x-ray did not show pneumonia. Viral studies were also normal. Family requested that she stay overnight for monitoring and this morning if she is doing well with no confusion. I discussed with her the plan for discharge today and she expressed understanding of the risks and benefits of going home and would like to go home today. 2. Coronary artery disease status post stents, essential hypertension her chronic medical conditions which complicate her care. Her home medications werecontinued where appropriate Physical Exam Narrative General: Alert, Oriented x3, Cooperative, No apparent distress HEENT: Atraumatic, PERRLA, EOMI, Normocephalic Oral: Moist Mucosa Neck: Supple, No JVD Lungs: Diminished, Normal air movement, No rhonchi, No wheeze, No rales Cardiovascular: Regular rate, Regular Rhythm, Normal S1, Normal S2, No murmurs Abdomen: Soft, Non Tender, Non-Distended, No Hepato-splenomegaly Extremities: No edema, Capillary Refill Less than 3 Seconds Skin: No rashes, No breakdown Musculoskeletal: No Tenderness to Palpation of Joints or Extremities Neurological: No focal neurological deficits, moves all extremities, sensation intact Psych/Mental Status: Normal Affect, Appropriate Weight / BMI Weight Weight: 181 lb 3.52 oz Body Mass Index (BMI) 36.6 ABG / Lab / Microbiology Data 06/06/25 06:06 06/06/25 06:06 Laboratory: Laboratory Results - last 24 hr 06/05/25 13:05: Troponin T Hi Sens 4Hr 12 06/06/25 06:06: WBC 5.7, RBC 4.50, Hgb 12.5, Hct 38.7, MCV 86.0, MCH 27.8, MCHC 32.3, RDW Std Deviation 42.2, RDW Coeff of Barb 13.6, Plt Count 165, MPV 11.1, Immature Gran % (Auto) 0.200, Neut % (Auto) 54.5, Lymph % (Auto) 30.0, [place] % (Auto) 13.4 H, Eos % (Auto) 1.4, Baso % (Auto) 0.5, Absolute Neuts (auto) 3.1, Absolute Lymphs (auto) 1.72, Nucleated RBC % 0, Sodium 139, Potassium 4.3, Chloride 105, Carbon Dioxide 23.3, Anion Gap 11, BUN 24 H, Creatinine 1.17, Estim Creat Clear Calc 37.65 L, Est GFR (MDRD) Non-Af 48 L, BUN/Creatinine Ratio 20.2 H, Glucose 103 H, Calcium 8.9 Microbiology: Microbiology 06/05/25 07:53 Mucosa - Nose SARS-CoV-2, Influenza & RSV (PCR) - Final D/C Instructions Call your doctor if you observe: Fever of 101 or Higher, Shortness of breath, Dizziness, Fainting spells, Swelling in the ankles, Chest pain and Increased palpitations (irregular heartbeat) DC O2, CPAP, BIPAP Needs Home O2 Discharge instructions: No Meaningful Use Info Meaningful Use Meaningful Use Diagnoses (Choose all that apply): None applicable Discharge Plan Admission Admit Date/Time: 06/05/25 10:34 Attending Provider: Alin Helm Primary Care Provider: Andre Santana Instructions Patient Instructions: ED Chest Pain, Uncertain Cause, ED Palpitations Discharge Orders/Prescriptions Prescriptions: Continued aspirin [Aspir-81] 81 MG tablet,delayed release (DR/EC) 81 mg PO DAILY carvedilol 6.25 mg tablet 6.25 mg PO Q12H Patient Comments: [NO ORIGINAL SIG] clopidogrel 75 mg tablet 75 mg PO DAILY losartan 100 mg tablet 100 mg PO DAILY rosuvastatin 10 mg tablet 10 mg PO QHS Referrals / Follow Up: Andre Santana MD [Primary Care Provider] - As soon as possible (Or your heart doctor) Disposition Disposition (needs filled in before D/C Order can be placed): Home, Self Care Charges/Coding Visit Charges Inpatient E&M: 57980 Disch Hosp >30min 06/06/25 1057 Cosigner Signature (if applicable): CC: Dr. Alin Helm MD; Dr. Andre Santana MD~ Signed [facility]07-29-2025 [facility] Medical Records Department [address] [place] [address] Discharge Summary 06/06/25 1050 MR#: [id number] Acct: [id number] Name: TERRI BURCIAGA Rep #: [id number] : 1945 79 From: Alin Helm MD PCP: Dr. Andre Santana MD Status:ADM FELIX Location: [place] [address] Providers Date of Admission: 06/05/25 Primary Care Physician: Dr. Andre Santana MD Reason For Visit: CONFUSION Diagnosis Discharge Diagnosis (1) Palpitations: Status: Acute Code(s): R00.2 - Palpitations (2) Confusion: Status: Acute Code(s): R41.0 - Disorientation, unspecified Medications at Discharge Home Medications aspirin 81 mg tablet,delayed release (Aspir-) 81 mg PO DAILY heart health 11/24/18 carvedilol 6.25 mg tablet 6.25 mg PO Q12H blood pressure 02/28/25 clopidogrel 75 mg tablet 75 mg PO DAILY anti platelet 02/28/25 losartan 100 mg tablet 100 mg PO DAILY blood pressure 02/28/25 rosuvastatin 10 mg tablet 10 mg PO QHS cholesterol 02/28/25 Hospital Course Operations None Procedures None Summary of Care Provided Minutes Spent on Discharge: 32 Hospital Course: Per HPI: TERRI BURCIAGA, is a 79 F who presents to the hospital with palpitations and chest pain. EKG was nonischemic and initial troponin was 9 with subsequent troponin of 13. From a chest pain standpoint she was feeling much better however family noticed that she was little bit confused which is new from yesterday. This is likely due to sleep deprivation as she did not sleep at all last night. UA was unremarkable and chest x-ray was negative for pneumonia. Skin exam does not show any signs of cellulitis and her confusion has resolved however she lives in [place] and the family lives here in [place] and no one can stay with her and so they are concerned about her going home and would like her to be observed overnight. She is afebrile without a leukocytosis and lab work is unremarkable other than a creatinine of 1.33 with GFR of 41 which is at baseline. Hospital Course: 1. Confusion with palpitations???79-year-old female presented to hospital with palpitations and some mild chest discomfort, troponins were unremarkable and EKG remained nonischemic. Her confusion had resolved by the time I evaluated her in the ER and there is no obvious source, as UA was not infectious and chest x-ray did not show pneumonia. Viral studies were also normal. Family requested that she stay overnight for monitoring and this morning if she is doing well with no confusion. I discussed with her the plan for discharge today and she expressed understanding of the risks and benefits of going home and would like to go home today. 2. Coronary artery disease status post stents, essential hypertension her chronic medical conditions which complicate her care. Her home medications were continued where appropriate Physical Exam Narrative General: Alert, Oriented x3, Cooperative, No apparent distress HEENT: Atraumatic, PERRLA, EOMI, Normocephalic Oral: Moist Mucosa Neck: Supple, No JVD Lungs: Diminished, Normal air movement, No rhonchi, No wheeze, No rales Cardiovascular: Regular rate, Regular Rhythm, Normal S1, Normal S2, No murmurs Abdomen: Soft, Non Tender, Non-Distended, No Hepato-splenomegaly Extremities: No edema, Capillary Refill Less than 3 Seconds Skin: No rashes, No breakdown Musculoskeletal: No Tenderness to Palpation of Joints or Extremities Neurological: No focal neurological deficits, moves all extremities, sensation intact Psych/Mental Status: Normal Affect, Appropriate Weight / BMI Weight Weight: 181 lb 3.52 oz Body Mass Index (BMI) 36.6 ABG / Lab / Microbiology Data 06/06/25 06:06 06/06/25 06:06 Laboratory: Laboratory Results - last 24 hr 06/05/25 13:05: Troponin T Hi Sens 4Hr 12 06/06/25 06:06: WBC 5.7, RBC 4.50, Hgb 12.5, Hct 38.7, MCV 86.0, MCH 27.8, MCHC 32.3, RDW Std Deviation 42.2, RDW Coeff of Barb 13.6, Plt Count 165, MPV 11.1, Immature Gran % (Auto) 0.200, Neut % (Auto) 54.5, Lymph % (Auto) 30.0, [place] % (Auto) 13.4 H, Eos % (Auto) 1.4, Baso % (Auto) 0.5, Absolute Neuts (auto) 3.1, Absolute Lymphs (auto) 1.72, Nucleated RBC % 0, Sodium 139, Potassium 4.3, Chloride 105, Carbon Dioxide 23.3, Anion Gap 11, BUN 24 H, Creatinine 1.17, Estim Creat Clear Calc 37.65 L, Est GFR (MDRD) Non-Af 48 L, BUN/Creatinine Ratio 20.2 H, Glucose 103 H, Calcium 8.9 Microbiology: Microbiology 06/05/25 07:53 Mucosa - Nose SARS-CoV-2, Influenza RSV (PCR) - Final D/C Instructions Call your doctor if you observe: Fever of 101 or Higher, Shortness of breath, Dizziness, Fainting spells, Swelling in the ankles, Chest pain and Increased palpitations (irregular heartbeat) DC O2, CPAP, BIPAP Needs Home O2 Discharge instructions: No Meaningful Use Info Meaningful Use Meaningful Use Diagnoses (Cho (more content not included)...[facility]07-29-2025 Consult note [facility] Medical Records Department [address] [place] [address] Counseling Note - Pharmacy 06/06/25 1007 MR#: [id number] Acct: [id number] Name: TERRI BURCIAGA Rep #:[id number] : 1945 79 From: Yessenia Garcia PCP: Dr. Andre Santana MD Status:ADM I NO Y Location: [place] [address] Pharmacy [place] Med Reconciliation Pharmacy Service has performed discharge medication reconciliation for this patient. The patient's discharge medication list was reviewed for discrepancies and discrepancies were resolved. Medications at Discharge Home Medications aspirin 81 mg tablet,delayed release (Aspir-) 81 mg PO DAILY heart health 11/24/18 carvedilol 6.25 mg tablet 6.25 mg PO Q12H blood pressure 02/28/25 clopidogrel 75 mg tablet 75 mg PO DAILY anti platelet 02/28/25 losartan 100 mg tablet 100 mg PO DAILY blood pressure 02/28/25 rosuvastatin 10 mg tablet 10 mg PO QHS cholesterol 02/28/25 06/06/25 1007 Date _ Yessenia Pinto Signature (if applicable): Date CC: ~ Signed [facility]07-29-2025 Discharge summary [facility] Medical Records Department [address] [place] [address] Instructions for Home/Discharge Instructions 06/06/25 0953 MR#: [id number] Acct: [id number] Name: TERRI BURCIAGA Rep #:[id number] : 1945 79 From: Alin valero MD PCP: Dr. Andre Santana MD Status:ADM I NO Discharge Instructions DC O2, CPAP, BIPAP needs Home O2 Discharge instructions: No Dressing / Incision Discharge Activity: Return to Normal Activity Dressing / Incision Call your doctor if you observe: Fever of 101 or Higher, Shortness of breath, Dizziness, Fainting spells, Swelling in the ankles, Chest pain and Increased palpitations (irregular heartbeat) Follow Up Care Test Results: Test results from this visit will be discussed in further detail at your follow- up appointment, if applicable. Discharge Plan Admission Admit Date/Time: 06/05/25 10:34 Attending Provider: Alin Helm Primary Care Provider: Andre Santana Instructions Patient Instructions: ED Chest Pain, Uncertain Cause, ED Palpitations Discharge Orders/Prescriptions Prescriptions: Continued aspirin [Aspir-81] 81 MG tablet,delayed release (DR/EC) 81 mg PO DAILY carvedilol 6.25 mg tablet 6.25 mg PO Q12H Patient Comments: [NO ORIGINAL SIG] clopidogrel 75 mg tablet 75 mg PO DAILY losartan 100 mg tablet 100 mg PO DAILY rosuvastatin 10 mg tablet 10 mg PO QHS Referrals / Follow Up: Andre Santana MD [Primary Care Provider] - As soon as possible (Or your heart doctor) Disposition Disposition (needs filled in before D/C Order can be placed): Home, Self Care 06/06/25 0956Alin Helm MD CC: Dr. Andre Santana MD ~ Signed [facility]07-28-2025 History and physical note Author Alin Helm [facility] Note Date/Time June 05, 2025 11:2 5am [facility] Medical Records Department [address] [place] [address] H&P Exam - Hospitalist 06/05/25 1122 MR#: [id number] Acct: [id number] Name: TERRI BURCIAGA Rep #:[id number] : 1945 79 From: Alin valero MD PCP: Dr. Andre Santana MD Status:ADM I NO Location: [place] [address] HPI - General General Date of Admission: 06/05/25 HPI Narrative TERRI BURCIAGA, is a 79 F who presents to the hospital with palpitations and chestpain. EKG was nonischemic and initial troponin was 9 with subsequent troponin of 13. From a chest pain standpoint she was feeling much better however family noticed that she was little bit confused which is new from yesterday. This is likely due to sleep deprivation as she did not sleep at all last night. UA was unremarkable and chest x-ray was negative for pneumonia. Skin exam does not show any signs of cellulitis and her confusion has resolved however she lives [facility] and the family lives here in [place] and no one can stay with her and so they are concerned about her going home and would like her to be observed overnight. She is afebrile without a leukocytosis and lab work is unremarkable other than a creatinine of 1.33 with GFR of 41 which is at baseline. [facility] Medical History Myocardial infarct Chest pain Hypertension Home Medications ?Medication ?Instructions ?Recorded ?Last Taken ?Type aspirin 81 mg tablet,delayed 81 mg PO DAILY 11/24/18 0 02/28/25 History release (Aspir-) carvedilol 6.25 mg tablet 6.25 mg PO Q12H 02/28/25 History clopidogrel 75 mg tablet 75 mg PO DAILY 02/28/2502/08 History losartan 100 mg tablet 100 mg PO DAILY 02/28/25 History rosuvastatin 10 mg tablet 10 mg PO QHS 02/28/25 History Allergy/AdvReac Type Severity Reaction Status Date / Time adhesive tape Allergy Itching Verified 06/05/25 05:42 amlodipine (From Norvasc) Allergy Swelling Verified 06/05/25 05:42 cat dander Allergy Unknown Verified 06/05/25 05:42 cigarette smoke Allergy Other Verified 06/05/25 05:42 metoprolol (From Lopressor) Allergy Unknown Verified 06/05/25 05:42 nickel Allergy Rash Verified 06/05/25 05:42 naproxen (From Aleve) AdvReac Nausea/Vom/ Verified 06/05/25 05:42 Diarrhea rofecoxib (From Vioxx) AdvReac Upset Verified 06/05/25 05:42 Stomach Sulfa (Sulfonamide AdvReac Other Verified 06/05/25 05:42 Antibiotics) Family History (Updated 06/05/25 @ 11:[address] Alin Helm MD) Other Heart disease Surgical History History of coronary artery stent placement Social History housing: house Smoking Status: Former smoker ROS Constitutional Constitutional: Denies chills, fatigue, fever(s) or malaise Eyes Eyes: Denies blurry vision ENT HEENT: Denies headache(s) or nasal discharge Cardiovascular Cardiovascular: Reports chest pain and palpitations; Denies dyspnea on exertion or syncope Respiratory/Chest Respiratory/Chest: Denies cough, shortness of breath at rest or shortness of breath with exertion Gastrointestinal Gastrointestinal: Denies constipation, diarrhea, nausea or vomiting Genitourinary Genitourinary: Denies dysuria Neurologic Neurologic: Reports confusion; Denies focal weakness, numbness or tremor(s) Psychiatric Psychiatric: Denies anxiety or depression Vital Signs Vital Signs Vital Signs: 06/05/25 05:37 06/05/25 05:42 06/05/25 05:49 Temperature 98.6 F Temperature Source Oral Pulse Rate 96 Respiratory Rate 18 Respiratory Effort Short of Breath Blood Pressure 188/108 H Blood Pressure Mean 134 Pulse Ox 96 99 Oxygen Delivery Method Room Air Room Air 06/05/25 06:00 06/05/25 06:56 06/05/25 08:00 Temperature Temperature Source Pulse Rate 76 84 88 Respiratory Rate 16 17 17 Respiratory Effort Blood Pressure 184/95 H 179/82 H 165/89 H Blood Pressure Mean 124 114 114 Pulse Ox 99 99 100 Oxygen Delivery Method Room Air Room Air 06/05/25 09:00 06/05/25 10:00 06/05/25 10:56 Temperature 97 F L Temperature Source Pulse Rate 79 75 81 Respiratory Rate 13 17 Respiratory Effort Blood Pressure 149/81 H 148/80 H 159/82 H Blood Pressure Mean 103 102 107 Pulse Ox 97 97 Oxygen Delivery Method Room Air 06/05/25 11:19 Temperature 97.7 F L Temperature Source Temporal Pulse Rate 77 Respiratory Rate 18 Respiratory Effort Blood Pressure 160/77 H Blood Pressure Mean 104 Pulse Ox 98 Oxygen Delivery Method Room Air Weight Weight: 185 lb 10.067 oz Body Mass Index (BMI) 37.5 Physical Exam Narrative General: Alert, Oriented x3, Cooperative, No apparent distress HEENT: Atraumatic, PERRLA, EOMI, Normocephalic Oral: Moist Mucosa Neck: Supple, No JVD Lungs: Diminished, Normal air movement, No rhonchi, No wheeze, No rales Cardiovascular: Regular rate, Regular Rhythm, Normal S1, Normal S2, No murmurs Abdomen: Soft, Non Tender, Non-Distended, No Hepato-splenomegaly Extremities: No edema, Capillary Refill Less than 3 Seconds Skin: No rashes, No breakdown Musculoskeletal: No Tenderness to Palpation of Joints or Extremities Neurological: No focal neurological deficits, Motor Exam 5/5 strength throughout, Sensory exam intact to light touch and pain Psych/Mental Status: Normal Affect, Appropriate Results Lab / Micro Data 06/05/25 05:41 06/05/25 05:41 Labs: Laboratory Results - last 24 hr 06/05/25 05:41: WBC 7.8, RBC 5.13, Hgb 14.2, Hct 44.6, MCV 86.9, MCH 27.7, MCHC 31.8 L, RDW Std Deviation 42.9, RDW Coeff of Barb 13.4, Plt Count 189, MPV 10.6, Immature Gran % (Auto) 0.300, Neut % (Auto) 54.6, Lymph % (Auto) 28.9, [place] % (Auto) 13.2 H, Eos % (Auto) 2.6, Baso % (Auto) 0.4, Absolute Neuts (auto) 4.2, Absolute Lymphs (auto) 2.24, Nucleated RBC % 0, Sodium 138, Potassium 3.8, Chloride 102, Carbon Dioxide 21.1, Anion Gap 15, BUN 24 H, Creatinine 1.33 H, Estim Creat Clear Calc 33.56 L, Est GFR (MDRD) Non-Af 41 L, BUN/Creatinine Ratio 17.7, Glucose 123 H, Calcium 9.2, Troponin T High Sens 9 D 06/05/25 07:37: Troponin T Hi Sens 2 Hr 13 06/05/25 08:11: Urine Color Yellow, Urine Clarity Clear, Urine pH 6.0, Ur Specific [place] 1.010, Urine Protein 30 H, Urine Glucose (UA) Normal, Urine Ketones Negative, Urine Occult Blood 250 H, Urine Nitrite Negative, Urine Bilirubin Negative, Urine Urobilinogen Normal, Ur Leukocyte Esterase 25 H, UrineRBC 10-25 SEEN, Urine WBC 0 SEEN, Ur Squamous Epith Cells 0 SEEN, Urine Bacteria0 SEEN, Urine Mucus 0 SEEN Micro: Microbiology 06/05/25 07:53 Mucosa - Nose SARS-CoV-2, Influenza & RSV (PCR) - Final Rhythm Strip Rhythm Strip: Sinus Rhythm Rate: 95 Ectopy: None Imaging Radiology Impression Chest X-Ray 06/05/25 06:00 IMPRESSION: There is blunting of the costophrenic angle on the left consistent with a trace effusion or scar, unchanged. Reading Location: [facility] Brain [facility] 06/05/25 07:42 IMPRESSION: Mucosal thickening is noted in the sphenoid sinus. No acute intracranial pathology. Reading Location: [facility] Assessment & Plan Assessment/Plan (1) Palpitations: (2) Confusion: PLAN: Plan 1. Confusion ? This has resolved however family still concerned and would like her observed overnight ? Infectious workup is negative with a normal UA and a normal chest x-ray, viralstudies are also negative ? No leukocytosis or fever ? Will monitor overnight and potentially discharge in the morning 2. Palpitations with chest pain/CAD status post stent/essential HTN ? Will continue with her home blood pressure medications and her aspirin and Plavix ? Unclear if she takes Crestor or losartan as these have not been verified on her home med list ? Will monitor and make adjustments as necessary ? No further workup she can follow-up with her veneer cutter as an outpatient as her troponins have remained negative and she is no longer having any chest pain DVT: Lovenox Charges/Coding Visit Charges Inpatient E&M: 85225 Init Hosp L2 06/05/25 1125 <Electronically signed by Alin Helm MD> Cosigner Signature (if applicable): CC: Dr. Alin Helm MD; Dr. Andre Santana MD~ Signed [facility] Work Phone: [phone] 533-240007-28-2025 Discharge summary Author Jimmy Gray [facility] Note Date/Time June 05, 2025 10:4 7am [facility] Medical Records Department [address] [place] [address] Emergency Department Summary 06/05/25 MR#: [id number] Acct: [id number] Name: TERRI BURCIAGA Rep #:[id number] : 1945 79 From: Jimmy Gray MD PCP: Dr. Andre Santana MD Status:REG E R Location: ED HPI History of Present Illness Chief Complaint: Chest Pain Informant: patient Narrative Narrative: Patient presenting with chest discomfort. She states she was getting ready to go to bed at 4 AM which was almost 2 hours ago, when she felt some skipping palpitations, shortness of breath, and then she had some chest discomfort in theleft side radiate up to her left neck and jaw. She states the chest discomfort is better but she still feeling like it is hard to take a deep breath and still feeling like her heart is skipping. Denies any recent illness. Denies any recent leg pain or swelling. She states she takes aspirin and clopidogrel because of a history of stents in her heart, but she is on no anticoagulants. [facility] Medical History Myocardial infarct Chest pain Hypertension Home Medications ?Medication ?Instructions ?Recorded ?Last Taken ?Type aspirin 81 mg tablet,delayed 81 mg PO DAILY 11/24/18 0 02/28/25 History release (Aspir-) carvedilol 6.25 mg tablet 6.25 mg PO Q12H 02/28/25 History clopidogrel 75 mg tablet 75 mg PO DAILY 02/28/2502/08 History losartan 100 mg tablet 100 mg PO DAILY 02/28/25 History rosuvastatin 10 mg tablet 10 mg PO QHS 02/28/25 History Allergy/AdvReac Type Severity Reaction Status Date / Time adhesive tape Allergy Itching Verified 06/05/25 05:42 amlodipine (From Norvasc) Allergy Swelling Verified 06/05/25 05:42 cat dander Allergy Unknown Verified 06/05/25 05:42 cigarette smoke Allergy Other Verified 06/05/25 05:42 metoprolol (From Lopressor) Allergy Unknown Verified 06/05/25 05:42 nickel Allergy Rash Verified 06/05/25 05:42 naproxen (From Aleve) AdvReac Nausea/Vom/ Verified 06/05/25 05:42 Diarrhea rofecoxib (From Vioxx) AdvReac Upset Verified 06/05/25 05:42 Stomach Sulfa (Sulfonamide AdvReac Other Verified 06/05/25 05:42 Antibiotics) Surgical History History of coronary artery stent placement Social History housing: house Smoking Status: Former smoker ROS ROS ED Constitutional Constitutional ED: Denies chills or fever(s) Eyes Eyes: Denies change in vision or diplopia ENT ENT ED: Denies rhinorrhea or sore throat Cardiovascular Cardiovascular: Reports as per HPI, chest pain, palpitations and radiating jaw, neck or arm pain; Denies leg edema Respiratory/Chest Respiratory/Chest: Reports dyspnea; Denies cough Gastrointestinal Gastrointestinal: Denies abdominal pain, diarrhea, nausea or vomiting Genitourinary Genitourinary ED: Denies dysuria or hematuria Musculoskeletal Musculoskeletal: Denies back pain or neck pain Integumentary Denies abscess or rash Neurologic Neurologic: Denies headache(s), paresthesias or weakness Psychiatric Psychiatric: Denies suicidal thoughts EXAM Physical Exam Const Vital Signs: 06/05/25 05:37 06/05/25 05:42 06/05/25 05:49 Temperature 98.6 F Temperature Source Oral Pulse Rate 96 Respiratory Rate 18 Respiratory Effort Short of Breath Blood Pressure 188/108 H Blood Pressure Mean 134 Pulse Ox 96 99 Oxygen Delivery Method Room Air Room Air 06/05/25 06:00 06/05/25 06:56 Temperature Temperature Source Pulse Rate 76 84 Respiratory Rate 16 17 Respiratory Effort Blood Pressure 184/95 H 179/82 H Blood Pressure Mean 124 114 Pulse Ox 99 99 Oxygen Delivery Method Room Air Room Air Positive well nourished and well developed General Appearance ED: well developed and NAD HEENT Reports moist mucous membranes normocephalic and atraumatic Eyes PERRL and EOMs intact bilaterally Neck full ROM and supple Resp normal respiratory effort and clear to auscultation bilaterally Cardio regular rate, regular rhythm and no murmurs Peripheral Pulses: pulses 2+ throughout GI non-tender and non-distended Auscultation: normoactive bowel sounds Palpation: soft Back/Spine no CVA tenderness General Back: other FROM Extremity normal to inspection General Extremety ED: Negative for edema, pulses abnormal or tenderness General Extremity: Negative for edema or pulses abnormal Neuro oriented x3, CN's II-XII intact bilaterally and no sensory deficits noted Sensorium / Orientation: awake and alert Motor Exam: strength 5/5 throughout Skin no rashes or lesions noted and no wounds Heart Score History: Moderately Suspicious ECG: Normal Age: >/= 65 years Risk Factors: >/= 3 Risk Factors or History of CAD Score: 5 MDM MDM MDM Narrative Medical decision making narrative: While evaluating the patient she is on the monitor and is in a sinus rhythm at 88-90, no ectopy, no irregularity and no dysrhythmia while she is feeling like she is having palpitations suggesting the etiology may be noncardiac but given her symptoms, performing a cardiac workup with serial troponin measurements. 1 view chest x-ray my interpretation is normal radiology in agreement. Her EKG is normal, she has had no telemetry events or ectopy, and her labs and initial troponin are normal except for mild elevated creatinine, similar to prior measurements for her. On reexamination, she is feeling better. Blood pressure in the 160s. She is not having any symptoms at the current moment. She states the palpitations and skipping were the most prominent symptom and were much moreintense prior to getting here. We will keep her on the monitor until her secondtroponin comes back. If she develops no other concerning symptoms or telemetry events and her second troponin is negative I would support allowing her to go home with close a patient follow-up, discussed this with her at length she is comfortable with that plan. Lab Data Attestation: I reviewed the patient's lab results. Labs: Laboratory Results - last 24 hr 06/05/25 05:41 WBC 7.8 RBC 5.13 Hgb 14.2 Hct 44.6 MCV 86.9 MCH 27.7 MCHC 31.8 L RDW Std Deviation 42.9 RDW Coeff of Barb 13.4 Plt Count 189 MPV 10.6 Immature Gran % (Auto) 0.300 Neut % (Auto) 54.6 Lymph % (Auto) 28.9 [place] % (Auto) 13.2 H Eos % (Auto) 2.6 Baso % (Auto) 0.4 Absolute Neuts (auto) 4.2 Absolute Lymphs (auto) 2.24 Nucleated RBC % 0 Sodium 138 Potassium 3.8 Chloride 102 Carbon Dioxide 21.1 Anion Gap 15 BUN 24 H Creatinine 1.33 H Estim Creat Clear Calc 33.56 L Est GFR (MDRD) Non-Af 41 L BUN/Creatinine Ratio 17.7 Glucose 123 H Calcium 9.2 Troponin T High Sens 9 D Radiography Diagnostic Testing: Clinical Impression(s) from Imaging Studies Chest X-Ray 06/05/25 06:00 IMPRESSION: There is blunting of the costophrenic angle on the left consistent with a trace effusion or scar, unchanged. Reading Location: [facility] Rhythm Strip Rhythm Strip: Sinus Rhythm Rate: 95 Ectopy: None EKG Initial EKG: Attestation: I personally reviewed and interpreted this EKG as follows: Interpretation: Sinus Rhythm and No Acute Injury Pattern Comments: Nml axis & intervals; nml EKG Discharge Plan Triage Chief Complaint: Chest Pain ED Provider: Jimmy Gray Dx/Rx/DC Orders Clinical Impression: Palpitations, Chest pain, unspecified Instructions: ED Chest Pain, Uncertain Cause, ED Palpitations Prescriptions: No Action aspirin [Aspir-81] 81 MG tablet,delayed release (DR/EC) 81 mg PO DAILY carvedilol 6.25 mg tablet 6.25 mg PO Q12H Patient Comments: [NO ORIGINAL SIG] clopidogrel 75 mg tablet 75 mg PO DAILY losartan 100 mg tablet 100 mg PO DAILY rosuvastatin 10 mg tablet 10 mg PO QHS Primary Care Provider: Andre Santana Referrals: Andre Santana MD [Primary Care Provider] - As soon as possible (Or your heart doctor) Print Language: [place] Disposition Disposition: Home, Self Care What to do if you have Problems For any increased pain, shortness of breath, bleeding, nausea or vomiting, chestpain, or any unexpected problems, contact your Primary Care Provider. Call [facility] ([phone]) or report to the closest Emergency Room. Call 911 if necessary. 06/05/25 0724 <Electronically signed by Jimmy Gray MD> Cosigner Signature (if applicable): CC: Dr. Andre Santana MD ~ Signed ADDENDUM by Dr. Jimmy Gray MD on 06/05/25 at 0744 Staff went into drawl patient's second troponin, and her daughter is present whowas not there before, and states that she has been interacting with her mom here, and states that her mom is confused and this is not normal for her. She is been repeating questions for her, she has not been remembering her medications, she is not remembering people's names, and she did not know the correct day of the week, all of which is unusual for her. So I went to reevaluate her, the patient states she feels a little disoriented, and they boththink maybe it started yesterday at some point. She does not think she has had any urinary symptoms but I am adding on a UA and a CT of the head to her workup and we will reevaluate her, checked out at shift change for results of these. 06/05/25 0744<Electronically signed by Jimmy Gray MD> Cosigner Signature (if applicable): cc: Dr. Andre Santana MD ~* Signed ADDENDUM by Dr. Cesario Mcclain DO on 06/05/25 at 1047 Care of the patient was turned over to me. Because of the daughter's concern for confusion, urinalysis was ordered, CT scan of the brain was ordered, and a COVID, influenza, and RSV PCR was ordered. CT scan of the brain was reviewed. There is no acute intracranial process noted. This was interpreted by the radiologist and was also independently reviewed by myself. Urinalysis was reviewed. There is no evidence of urinary tract infection or hematuria. COVID-19 PCR was reviewed and was negative. Influenza PCR was reviewed and was negative for influenza A and influenza B. RSV PCR was reviewed and was negative. On reevaluation, patient states she is still having some forgetfulness and confusion. Because of this, patient would feel better if she was admitted to the hospital for further evaluation. Case was discussed with the hospitalist. Will admit the patient for observation. Patient and daughter understood and were agreeable with the plan. All questions were answered. 06/05/25 1047<Electronically signed by Cesario Mcclain DO> Cosigner Signature (if applicable): cc: Dr. Andre Santana MD ~* Signed [facility] Work Phone: 1(188) 817-132307-28-2025 Evaluation note* Diagnosis Onset Date Resolution Status Admit Date Confusion acute June 05 10:34am Palpitations acute June 05, 025 10:34am [facility] Work Phone: 1(370) 279-928607-28-2025 History and physical note [facility] Medical Records Department [address] [place] [address] H&P Exam - Hospitalist 06/05/25 1122 MR#: [id number] Acct: [id number] Name: TERRI BURCIAGA Rep #:[id number] : 1945 79 From: Alin valero MD PCP: Dr. Andre Santana MD Status:ADM I NO Location: [facility]- 1 HPI - General General Date of Admission: 06/05/25 HPI Narrative TERRI BURCIAGA, is a 79 F who presents to the hospital with palpitations and chestpain. EKG was nonischemic and initial troponin was 9 with subsequent troponin of 13. From a chest pain standpoint she was feeling much better however family noticed that she was little bit confused which is new from yesterday. This is likely due to sleep deprivation as she did not sleep at all last night. UA was unremarkable and chest x-ray was negative for pneumonia. Skin exam does not show any signs of cellulitis and her confusion has resolved however she lives [facility] and the family lives here in [place] and no one can stay with her and so they are concerned about her going home and would like her to be ob served overnight. She is afebrile without a leukocytosis and lab work is unremarkable other than a creatinine of 1.33 with GFR of 41 which is at baseline. [facility] Medical History Myocardial infarct Chest pain Hypertension Home Medications ?Medication ?Instructions ?Recorded ?Last Taken ?Type aspirin 81 mg tablet,delayed 81 mg PO DAILY 11/24/18 0 02/28/25 History release (Aspir-) carvedilol 6.25 mg tablet 6.25 mg PO Q12H 02/28/25 History clopidogrel 75 mg tablet 75 mg PO DAILY 02/28/2502/08 History losartan 100 mg tablet 100 mg PO DAILY 02/28/25 History rosuvastatin 10 mg tablet 10 mg PO QHS 02/28/25 History Allergy/AdvReac Type Severity Reaction Status Date / Time adhesive tape Allergy Itching Verified 06/05/25 05:42 amlodipine (From Norvasc) Allergy Swelling Verified 06/05/25 05:42 cat dander Allergy Unknown Verified 06/05/25 05:42 cigarette smoke Allergy Other Verified 06/05/25 05:42 metoprolol (From Lopressor) Allergy Unknown Verified 06/05/25 05:42 nickel Allergy Rash Verified 06/05/25 05:42 naproxen (From Aleve) AdvReac Nausea/Vom/ Verified 06/05/25 05:42 Diarrhea rofecoxib (From Vioxx) AdvReac Upset Verified 06/05/25 05:42 Stomach Sulfa (Sulfonamide AdvReac Other Verified 06/05/25 05:42 Antibiotics) Family History (Updated 06/05/25 @ 11:[address] Alin Helm MD) Other Heart disease Surgical History History of coronary artery stent placement Social History housing: house Smoking Status: Former smoker ROS Constitutional Constitutional: Denies chills, fatigue, fever(s) or malaise Eyes Eyes: Denies blurry vision ENT HEENT: Denies headache(s) or nasal discharge Cardiovascular Cardiovascular: Reports chest pain and palpitations; Denies dyspnea on exertion or syncope Respiratory/Chest Respiratory/Chest: Denies cough, shortness of breath at rest or shortness of breath with exertion Gastrointestinal Gastrointestinal: Denies constipation, diarrhea, nausea or vomiting Genitourinary Genitourinary: Denies dysuria Neurologic Neurologic: Reports confusion; Denies focal weakness, numbness or tremor(s) Psychiatric Psychiatric: Denies anxiety or depression Vital Signs Vital Signs Vital Signs: 06/05/25 05:37 06/05/25 05:42 06/05/25 05:49 Temperature 98.6 F Temperature Source Oral Pulse Rate 96 Respiratory Rate 18 Respiratory Effort Short of Breath Blood Pressure 188/108 H Blood Pressure Mean 134 Pulse Ox 96 99 Oxygen Delivery Method Room Air Room Air 06/05/25 06:00 06/05/25 06:56 06/05/25 08:00 Temperature Temperature Source Pulse Rate 76 84 88 Respiratory Rate 16 17 17 Respiratory Effort Blood Pressure 184/95 H 179/82 H 165/89 H Blood Pressure Mean 124 114 114 Pulse Ox 99 99 100 Oxygen Delivery Method Room Air Room Air 06/05/25 09:00 06/05/25 10:00 06/05/25 10:56 Temperature 97 F L Temperature Source Pulse Rate 79 75 81 Respiratory Rate 13 17 Respiratory Effort Blood Pressure 149/81 H 148/80 H 159/82 H Blood Pressure Mean 103 102 107 Pulse Ox 97 97 Oxygen Delivery Method Room Air 06/05/25 11:19 Temperature 97.7 F L Temperature Source Temporal Pulse Rate 77 Respiratory Rate 18 Respiratory Effort Blood Pressure 160/77 H Blood Pressure Mean 104 Pulse Ox 98 Oxygen Delivery Method Room Air Weight Weight: 185 lb 10.067 oz Body Mass Index (BMI) 37.5 Physical Exam Narrative General: Alert, Oriented x3, Cooperative, No apparent distress HEENT: Atraumatic, PERRLA, EOMI, Normocephalic Oral: Moist Mucosa Neck: Supple, No JVD Lungs: Diminished, Normal air movement, No rhonchi, No wheeze, No rales Cardiovascular: Regular rate, Regular Rhythm, Normal S1, Normal S2, No murmurs Abdomen: Soft, Non Tender, Non-Distended, No Hepato-splenomegaly Extremities: No edema, Capillary Refill Less than 3 Seconds Skin: No rashes, No breakdown Musculoskeletal: No Tenderness to Palpation of Joints or Extremities Neurological: No focal neurological deficits, Motor Exam 5/5 strength throughout, Sensory exam intact to light touch and pain Psych/Mental Status: Normal Affect, Appropriate Results Lab / Micro Data 06/05/25 05:41 06/05/25 05:41 Labs: Laboratory Results - last 24 hr 06/05/25 05:41: WBC 7.8, RBC 5.13, Hgb 14.2, Hct 44.6, MCV 86.9, MCH 27.7, MCHC 31.8 L, RDW Std Deviation 42.9, RDW Coeff of Barb 13.4, Plt Count 189, MPV 10.6, Immature Gran % (Auto) 0.300, Neut % (Auto) 54.6, Lymph % (Auto) 28.9, [place] % (Auto) 13.2 H, Eos % (Auto) 2.6, Baso % (Auto) 0.4, Absolute Neuts (auto) 4.2, Absolute Lymphs (auto) 2.24, Nucleated RBC % 0, Sodium 138, Potassium 3.8, Chloride 102, Carbon Dioxide 21.1, Anion Gap 15, BUN 24 H, Creatinine 1.33 H, Estim Creat Clear Calc 33.56 L, Est GFR (MDRD) Non-Af 41 L, BUN/Creatinine Ratio 17.7, Glucose 123 H, Calcium 9.2, Troponin T High Sens 9 D 06/05/25 07:37: Troponin T Hi Sens 2 Hr 13 06/05/25 08:11: Urine Color Yellow, Urine Clarity Clear, Urine pH 6.0, Ur Specific [place] 1.010, Urine Protein 30 H, Urine Glucose (UA) Normal, Urine Ketones Negative, Urine Occult Blood 250 H, Urine Nitrite Negative, Urine Bilirubin Negative, Urine Urobilinogen Normal, Ur Leukocyte Esterase 25 H, UrineRBC 10-25 SEEN, Urine WBC 0 SEEN, Ur Squamous Epith Cells 0 SEEN, Urine Bacteria0 SEEN, Urine Mucus 0 SEEN Micro: Microbiology 06/05/25 07:53 Mucosa - Nose SARS-CoV-2, Influenza & RSV (PCR) - Final Rhythm Strip Rhythm Strip: Sinus Rhythm Rate: 95 Ectopy: None Imaging Radiology Impression Chest X-Ray 06/05/25 06:00 IMPRESSION: There is blunting of the costophrenic angle on the left consistent with a trace effusion or scar, unchanged. [facility] 06/05/25 07:42 IMPRESSION: Mucosal thickening is noted in the sphenoid sinus. No acute intracranial pathology. Reading Location: [facility] Assessment & Plan Assessment/Plan (1) Palpitations: (2) Confusion: PLAN: Plan 1. Confusion ? This has resolved however family still concerned and would like her observed overnight ? Infectious workup is negative with a normal UA and a normal chest x-ray, viralstudies are also negative ? No leukocytosis or fever ? Will monitor overnight and potentially discharge in the morning 2. Palpitations with chest pain/CAD status post stent/essential HTN ? Will continue with her home blood pressure medications and her aspirin and Plavix ? Unclear if she takes Crestor or losartan as these have not been verified on her home med list ? Will monitor and make adjustments as necessary ? No further workup she can follow-up with her veneer cutter as an outpatient as her troponins have remained negative and she is no longer having any chest pain DVT: Lovenox Charges/Coding Visit Charges Inpatient E&M: 61431 Init Hosp L2 06/05/25 1125 Cosigner Signature (if applicable): CC: Dr. Alin Helm MD; Dr. Andre Santana MD~ Signed [facility]07-28-2025 Discharge summary [facility] Medical Records Department [address] [place] [address] Emergency Department Summary 06/05/25 MR#: [id number] Acct: [id number] Name: TERRI BURCIAGA Rep #:[id number] : 1945 79 From: Jimmy Gray MD PCP: Dr. Andre Santana MD Status:REG E R Location: ED HPI History of Present Illness Chief Complaint: Chest Pain Informant: patient Narrative Narrative: Patient presenting with chest discomfort. She states she was getting ready to go to bed at 4 AM which was almost 2 hours ago, when she felt some skipping palpitations, shortness of breath, and then she had some chest discomfort in theleft side radiate up to her left neck and jaw. She states the chest discomfort is better but she still feeling like it is hard to take a deep breath and still feeling like her heart is skipping. Denies any recent illness. Denies any recent leg pain or swelling. Shestates she takes aspirin and clopidogrel because of a history of stents in her heart, but she is onno anticoagulants. [facility] Medical History Myocardial infarct Chest pain Hypertension Home Medications ?Medication ?Instructions ?Recorded ?Last Taken ?Type aspirin 81 mg tablet,delayed 81 mg PO DAILY 11/24/18 0 02/28/25 History release (Aspir-) carvedilol 6.25 mg tablet 6.25 mg PO Q12H 02/28/25 History clopidogrel 75 mg tablet 75 mg PO DAILY 02/28/2502/08 History losartan 100 mg tablet 100 mg PO DAILY 02/28/25 History rosuvastatin 10 mg tablet 10 mg PO QHS 02/28/25 History Allergy/AdvReac Type Severity Reaction Status Date / Time adhesive tape Allergy Itching Verified 06/05/25 05:42 amlodipine (From Norvasc) Allergy Swelling Verified 06/05/25 05:42 cat dander Allergy Unknown Verified 06/05/25 05:42 cigarette smoke Allergy Other Verified 06/05/25 05:42 metoprolol (From Lopressor) Allergy Unknown Verified 06/05/25 05:42 nickel Allergy Rash Verified 06/05/25 05:42 naproxen (From Aleve) AdvReac Nausea/Vom/ Verified 06/05/25 05:42 Diarrhea rofecoxib (From Vioxx) AdvReac Upset Verified 06/05/25 05:42 Stomach Sulfa (Sulfonamide AdvReac Other Verified 06/05/25 05:42 Antibiotics) Surgical History History of coronary artery stent placement Social History housing: house Smoking Status: Former smoker ROS ROS ED Constitutional Constitutional ED: Denies chills or fever(s) Eyes Eyes: Denies change in vision or diplopia ENT ENT ED: Denies rhinorrhea or sore throat Cardiovascular Cardiovascular: Reports as per HPI, chest pain, palpitations and radiating jaw, neck or arm pain; Denies leg edema Respiratory/Chest Respiratory/Chest: Reports dyspnea; Denies cough Gastrointestinal Gastrointestinal: Denies abdominal pain, diarrhea, nausea or vomiting Genitourinary Genitourinary ED: Denies dysuria or hematuria Musculoskeletal Musculoskeletal: Denies back pain or neck pain Integumentary Denies abscess or rash Neurologic Neurologic: Denies headache(s), paresthesias or weakness Psychiatric Psychiatric: Denies suicidal thoughts EXAM Physical Exam Const Vital Signs: 06/05/25 05:37 06/05/25 05:42 06/05/25 05:49 Temperature 98.6 F Temperature Source Oral Pulse Rate 96 Respiratory Rate 18 Respiratory Effort Short of Breath Blood Pressure 188/108 H Blood Pressure Mean 134 Pulse Ox 96 99 Oxygen Delivery Method Room Air Room Air 06/05/25 06:00 06/05/25 06:56 Temperature Temperature Source Pulse Rate 76 84 Respiratory Rate 16 17 Respiratory Effort Blood Pressure 184/95 H 179/82 H Blood Pressure Mean 124 114 Pulse Ox 99 99 Oxygen Delivery Method Room Air Room Air Positive well nourished and well developed General Appearance ED: well developed and NAD HEENT Reports moist mucous membranes normocephalic and atraumatic Eyes PERRL and EOMs intact bilaterally Neck full ROM and supple Resp normal respiratory effort and clear to auscultation bilaterally Cardio regular rate, regular rhythm and no murmurs Peripheral Pulses: pulses 2+ throughout GI non-tender and non-distended Auscultation: normoactive bowel sounds Palpation: soft Back/Spine no CVA tenderness General Back: other FROM Extremity normal to inspection General Extremety ED: Negative for edema, pulses abnormal or tenderness General Extremity: Negative for edema or pulses abnormal Neuro oriented x3, CN's II-XII intact bilaterally and no sensory deficits noted Sensorium / Orientation: awake and alert Motor Exam: strength 5/5 throughout Skin no rashes or lesions noted and no wounds Heart Score History: Moderately Suspicious ECG: Normal Age: >/= 65 years Risk Factors: >/= 3 Risk Factors or History of CAD Score: 5 MDM MDM MDM Narrative Medical decision making narrative: While evaluating the patient she is on the monitor and is in a sinus rhythm at 88-90, no ectopy, noirregularity and no dysrhythmia while she is feeling like she is having palpitations suggesting theetiology may be noncardiac but given her symptoms, performing a cardiac workup with serial troponinmeasurements. 1 view chest x-ray my interpretation is normal radiology in agreement. Her EKG is normal, she has had no telemetry events or ectopy, and her labs and initial troponin are normal except for mild elevated creatinine, similar to prior measurements for her. On reexamination, she is feeling better. Blood pressure in the 160s. She is not having any symptoms at the current moment. She states the palpitations and skipping were the most prominent symptom and were much moreintense prior to getting here. We will keep her on the monitor until her secondtroponin comes back. If she develops no other concerning symptoms or telemetry events and her second troponin is negative I would support allowing her to go home with close a patient follow-up, discussed this with her at length she is comfortable with that plan. Lab Data Attestation: I reviewed the patient's lab results. Labs: Laboratory Results - last 24 hr 06/05/25 05:41 WBC 7.8 RBC 5.13 Hgb 14.2 Hct 44.6 MCV 86.9 MCH 27.7 MCHC 31.8 L RDW Std Deviation 42.9 RDW Coeff of Barb 13.4 Plt Count 189 MPV 10.6 Immature Gran % (Auto) 0.300 Neut % (Auto) 54.6 Lymph % (Auto) 28.9 [place] % (Auto) 13.2 H Eos % (Auto) 2.6 Baso % (Auto) 0.4 Absolute Neuts (auto) 4.2 Absolute Lymphs (auto) 2.24 Nucleated RBC % 0 Sodium 138 Potassium 3.8 Chloride 102 Carbon Dioxide 21.1 Anion Gap 15 BUN 24 H Creatinine 1.33 H Estim Creat Clear Calc 33.56 L Est GFR (MDRD) Non-Af 41 L BUN/Creatinine Ratio 17.7 Glucose 123 H Calcium 9.2 Troponin T High Sens 9 D Radiography Diagnostic Testing: Clinical Impression(s) from Imaging Studies Chest X-Ray 06/05/25 06:00 IMPRESSION: There is blunting of the costophrenic angle on the left consistent with a trace effusion or scar, unchanged. [facility] Rhythm Strip Rhythm Strip: Sinus Rhythm Rate: 95 Ectopy: None EKG Initial EKG: Attestation: I personally reviewed and interpreted this EKG as follows: Interpretation: Sinus Rhythm and No Acute Injury Pattern Comments: Nml axis & intervals; nml EKG Discharge Plan Triage Chief Complaint: Chest Pain ED Provider: Jimmy Gray Dx/Rx/DC Orders Clinical Impression: Palpitations, Chest pain, unspecified Instructions: ED Chest Pain, Uncertain Cause, ED Palpitations Prescriptions: No Action aspirin [Aspir-81] 81 MG tablet,delayed release (DR/EC) 81 mg PO DAILY carvedilol 6.25 mg tablet 6.25 mg PO Q12H Patient Comments: [NO ORIGINAL SIG] clopidogrel 75 mg tablet 75 mg PO DAILY losartan 100 mg tablet 100 mg PO DAILY rosuvastatin 10 mg tablet 10 mg PO QHS Primary Care Provider: Andre Santana Referrals: Andre Santana MD [Primary Care Provider] - As soon as possible (Or your heart doctor) Print Language: [place] Disposition Disposition: Home, Self Care What to do if you have Problems For any increased pain, shortness of breath, bleeding, nausea or vomiting, chestpain, or any unexpected problems, contact your Primary Care Provider. Call [facility] ([phone]) or report tothe closest Emergency Room. Call 911 if necessary. 06/05/25 0724 Cosigner Signature (if applicable): CC: Dr. Andre Santana MD ~ Signed ADDENDUM by Dr. Jimmy Gray MD on 06/05/25 at 0744 Staff went into drawl patient's second troponin, and her daughter is present whowas not there before, and states that she has been interacting with her mom here, and states that her mom is confused and this is not normal for her. She is been repeating questions for her, she has not been rememberingher medications, she is not remembering people's names, and she did not know the correct day of theweek, all of which is unusual for her. So I went to reevaluate her, the patient states she feels a little disoriented, and they boththink maybe it started yesterday at some point. She does not think she has had any urinary symptoms but I am adding on a UA and a CT of the head to her workup and we will reevaluate her, checked out at shift change for results of these. 06/05/25 0744 Cosigner Signature (if applicable): cc: Dr. Andre Santana MD ~* Signed ADDENDUM by Dr. Cesario Mcclain DO on 06/05/25 at 1047 Care of the patient was turned over to me. Because of the daughter's concern for confusion, urinalysis was ordered, CT scan of the brain was ordered, and a COVID, influenza, and RSV PCR was ordered. CT scan of the brain was reviewed. There is no acute intracranial process noted. This was interpreted by the radiologist and was also independently reviewed by myself. Urinalysis was reviewed. There is no evidence of urinary tract infection or hematuria. COVID-19 PCR was reviewed and was negative. Influenza PCR was reviewed and was negative for influenza A and influenza B. RSV PCR was reviewed andwas negative. On reevaluation, patient states she is still having some forgetfulness and confusion.Because of this, patient would feel better if she was admitted to the hospital for further evaluation. Case was discussed with the hospitalist. Will admit the patient for observation. Patient and daughter understood and were agreeable with the plan. All questions were answered. 06/05/25 1047 Cosigner Signature (if applicable): cc: Dr. Andre Santana MD ~* Signed [facility]07-28-2025 Radiology Diagnostic study note [facility] Imaging Services [address] [place] [id number] Brain/Head without Contrast MR#: [id number] Acct: [id number] Name: TERRI BURCIAAG Rep #: [id number] : 1945 F 79 From: Lisa Rosario MD PCP: Dr. Andre Santana MD Status: REG E R Study:Brain/Head without Contrast Date of Exa m: 06/05/25 Exam# [id number] Ordering Dr: Porfirio Gray MD EXAM: NONCONTRAST CT SCAN OF THE HEAD CLINICAL HISTORY: Confusion COMPARISON: None TECHNIQUE: Serial axial series through the head were obtained without contrast. 2-D coronaland sagittal reformats were then obtained. FINDINGS: Brain: There is no acute large territorial infarct, intracranial hemorrhage, midline shift or mass effect. There are atherosclerotic vascular calcifications involving the bilateral carotid siphons.The sella and pineal gland regions appear unremarkable. There is no evidence of cerebellar tonsillar herniation. Ventricles: There is no acute hydrocephalus. Basilar cisterns are patent. Paranasal sinuses: Mucosal thickening is noted in the sphenoid sinus. Mastoid air cells: Well-aerated. Calvarium: The bony calvarium is intact. Orbits: The bilateral globes are symmetric, without retrobulbar compressive masslesion or hemorrhage. CT/Brain/Head without Contrast IMPRESSION: Mucosal thickening is noted in the sphenoid sinus. No acute intracranial pathology. Reading Location: [facility] CC: Dr. Jimmy Gray MD; Dr. Andre Santana MD ~ Consumer Credit Counselor: Signed [facility]07-28-2025 Radiology Diagnostic study note [facility] Imaging Services [address] [place] [address] Chest 1 View (Portable) MR#: [id number] Acct: [id number] Name: TERRI BURCIAGA Rep #: [id number] : 1945 F 79 From: Lisa Rosario MD PCP: Dr. Andre Santana MD Status: REG E R Study:Chest 1 View (Portable) Date of Exam: 06/05/25 Exam# [id number] Ordering Dr: Porfirio Gray MD PROCEDURE: CHEST 1 VIEW (PORTABLE) 06/05/2025 REASON FOR EXAM: CHEST PAIN TECHNIQUE: Frontal view of the chest. COMPARISON: February 28, 2025 FINDINGS: Heart size is within normal limits. Central vascularity is normal. There is nofocal infiltrate or consolidation. There is no pneumothorax. There is blunting of the costophrenic angle on the left consistent with a trace effusion or scar, unchanged. There is no pneumothorax. There is no acute bony abnormality. Aortic calcifications are noted. RAD/Chest 1 View (Portable) IMPRESSION: There is blunting of the costophrenic angle on the left consistent with a trace effusion or scar, unchanged. Reading Location: [facility] CC: Dr. Jimmy Gray MD; Dr. Andre Santana MD ~ Consumer Credit Counselor: Signed [facility]07-08-[facility] History of Present illness Narrative* Andre Santana MD - 05/16/2025 5:48 PM EDT Terri Burciaga is a 79-year-old female with [...] Recently took a balance class through the [facility], which included neck stretches. - [...] Hypothyroidism: - Under the care of Dr. Terry. - Advised to see cardiology before any [...] every 6 hours as needed for pain. lcbpv-ao-8-hvv-bfy-zmpkzjx-ast (MAXIMUM RED KRILL OMEGA-3) 232-48-49-45 mg cap Take 1 tablet by mouth [...] past medical history, surgical history, family history andsocial history today. REVIEW OF SYSTEMS Constitutional: (+) [...] hypertension (I10) 2. 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 Patient/authorized title insurance sales representative agreed to proceed documented [facility]Mi[facility]07-08-[facility]25 Instructions* Patient Instructions* Andre Santana MD - 05/16/2025 4:46 PM EDT - Continue your current heart and blood pressure medications (Carvedilol twice daily, Losartan) andyour antiplatelet therapy (aspirin and Plavix) as prescribed. - Continue taking Nexium for your reflux as directed. - Perform gentle neck stretches and fmcwd-sw-xypsfj exercises regularly, as you learned in your [...] 26 for clearance before your thyroid evaluation withDr. Terry. - Continue with your routine rheumatology follow-up as scheduled. - A standard daily multivitamin is acceptable. CoQ10 and magnesium supplements are safe to continue. Krill oil and garlic supplements can be taken if you choose but aren t necessary. documented in this encounterMiami [facility] Hospital06-24-2025 Telephone encounter Note * Telephone Encounter - Jordy Álvarez LPN - 05/02/2025 1:22 PM EDT Phoned pt, left detailed message with results/provider instructions on secure identified voicemail.Pt only to return call to office /c any questions or concerns. Jordy Álvarez LPN [facility]06-24-2025 Miscellaneous Notes* Telephone Encounter - Jordy Álvarez LPN - 05/02/2025 1:22 PM EDT Phoned pt, left detailed message with results/provider instructions on secure identified voicemail.Pt only to return call to office /c any questions or concerns. Jordy Álvarez LPN * Telephone Encounter - Trang Philippe APRN.CNP - 05/01/2025 8:03 PM EDT Can please let patient know that we received her neck xray results, which does show moderate degenerative (arthritic) changes. Please continue with the plan of care as discussed with Dr. Santana. (Ie moist heat, muscle relaxers, topical medication like vashti segovia or biofreeze. It looks like she has a follow-up scheduled with Dr. Santana on 05/16/25. Trang Philippe APRN.CNP documented in this encounterMiami Valley Hospital06-23-2025 Telephone encounter Note * Telephone Encounter - Trang Philippe APRN.CNP - 05/01/2025 8:03 PM EDT Can please let patient know that we received her neck xray results, which does show moderate degenerative (arthritic) changes. Please continue with the plan of care as discussed with Dr. Santana. (Ie moist heat, muscle relaxers, topical medication like vashti segovia or biofreeze. It looks like she has a follow-up scheduled with Dr. Santana on 05/16/25. Trang Philippe APRN.KIET [facility] Work Phone: 1(671) 802-430906-16-2025 [facility]06-16-2025 History of Present illness Narrative* Star Terry MD - 04/24/2025 10:55 AM EDT Star Terry M.D. [facility] [address] ENDOCRINE SURGERY NEW CONSULTATION NAME: Terri Burciaga CLINIC NO: [id number] : 1945 REFERRING PROVIDER: MD Danie Tinsleyigdhisaias Godfrey[address] [place] [facility] [address] The patient was referred by the above [...] calcium, biotin, diuretics, lithium): Yes; PLAVIX for MN andstenting in June 18, 2024 in [place] PMH: [...] every 6 hours as needed for pain. lenvi-eu-6-qgt-gwz-bxkzhcm-ast (MAXIMUM RED KRILL OMEGA-3) 954-30-00-45 mg cap Take 1 tablet by mouth [...] smooth, no mass is visualized. Palpation revealed neckto be supple, thyroid gland is palpable and overall normal in size. No lymphadenopathy was palpatedon either side of the neck. ULTRASOUND EXAMINATION: Ultrasound examination was performed in the office. The right thyroid lobe contained a solid, isoechoic nodule that measured 2.3 x 1.4 x 1.9 cm. The left thyroid lobe did not contain any worrisome findings. No worrisome lymphadenopathy was appreciated in either central neck compartment or jugular ch ain. LABS: TSH Date Value Ref Range Status [...] completion of one year Plavix . She isscheduled to see her [place] Supervisor on 06/26/25. I appreciate being involved in the care of your patient, and please feel free to contact me should you have additional questions. I spent a total of 45 minutes on the date of the service which included preparing to see the patient, ufaj-jf-imtb patient care, completing clinical documentation, obtaining and/or reviewing separately obtained history, performing a medically appropriate examination, counseling and educating the pat ient/family/caregiver, ordering medications, tests, or procedures, communicating with other HCPs (not separately reported), independently interpreting results (not separately reported), communicatingresults to the patient/family/caregiver, and care coordination (not separately reported). The medical decision making complexity for this encounter was moderate to high considering that the patient has a new complaint with a potential for significant morbidity if untreated or misdiagnosed. We had adetailed discussion regarding the natural course of the condition, the treatment options, and the potential role of surgery as a treatment option. Sincerely, Star Terry M.D. Endocrine Surgeon [facility] CC: Tulio Calderón [address] [facility] [address] Andre Santana MD Cardiology: Dioni Gamboa MD documented in this encounterMiami Valley Hospital06-13-2025 History of Present illness Narrative* Dottie Thomas Tech - 04/21/2025 4:20 PM EDT Radiology Service Progress Note PATIENT [...] Assigned female at . status: : No status:NO. PATIENT RELEVANT IMPLANT DATA REVIEWED: Not Applicable PATIENT PRESENTS WITH AN IMPLANTABLE OR ATTACHED SOLE DYER: No RADIOLOGY DEPARTMENT: General X-ray: Exam(s) Completed: Spine X-Ray(s): Cervical AP / LAT / OBL PERIPHERAL IV DATA: Not applicable SIGNED BY: Lora Phillips April 21, 2025 4:05 PM documented in this encounterMiami Valley Hospital06-13-2025 [facility]06-09-2025 [facility]06-09-2025 History of Present illness Narrative* Andre Santana MD - 04/17/2025 8:10 PM EDT Terri Burciaga is a 79-year-old female with a history of MN, PCI, and Sjogren's syndrome, presenting with left-sided [...] of these may not be side effect. MN: - History of MN in June 2024, treated with PCI and drug-eluting stent to RCA. - Follow-up with cardiology pending. Atrial Tachycardia: - Referred to electrophysiology by Dr. Ayers after Zio monitor detected an episode. - Missed appointment with fiscal analyst Dr. Culver due to being 10 minutes [...] every 6 hours as needed for pain. koitd-kx-2-zom-tkp-nnwhbtb-ast (MAXIMUM RED KRILL OMEGA-3) 337-75-69-45 mg cap Take 1 tablet by mouth [...] past medical history, surgical history, family history andsocial history today. REVIEW OF SYSTEMS Constitutional: (+) [...] carotid bruits. Tightness noted on the side ofthe neck. LUNGS: Clear to auscultation bilaterally, no [...] evaluation, especially in context of upcoming thyroid surgery.Discussed that she likely would need to stay on antiplatelet therapy until the fall when she is oneyear from her previous PTCA so surgery would likely not currently be an option but would defer to ca rdiology. 3. Primary hypertension (I10) - Blood pressure [...] thyroid surgery. 6. Coronary artery disease involving skagway coronary artery of skagway heart without angina pectoris(I25.10) - History of myocardial infarction in June [...] to patient) Andre Santana MD Recording using [employer] software for draft documentation of the visit was discussed with the patient/authorized title insurance sales representative; all questions welcomed and answered. Patient/authorized title insurance sales representative agreed to proceed documented in this encounterMiami Valley Hospital06-09-2025 Instructions* Patient Instructions* Andre Santana MD - 04/17/2025 6:10 PM [...] to reschedule or arrange evaluation by an fiscal analyst (heart rhythm specialist) since you missed the prior appointment. - Follow up with cardiology for clearance before your planned thyroid surgery, based on the rhythm specialist s recommendations. - Call the office if you develop worsening lightheadedness, chest pain, new palpitations, or other concerning symptoms. - Return in a few weeks to review your test results and reassess your symptoms. documented in this encounterMiami Valley Hospital05-27-2025 Telephone encounter Note * Telephone Encounter - Dania Lynn - 04/04/2025 1:42 PM EDT Prescription Refill Information The patient has been [...] Dania Lynn April 04, 2025 1:43 PM [facility]05-27-2025 Miscellaneous Notes* Telephone Encounter - Dania Lynn - 04/04/2025 1:42 PM EDT Prescription Refill Information The patient has been [...] 04, 2025 1:43 PM documented in this encounterMiami Valley Hospital05-07-2025 [facility]05-07-2025 History of Present illness Narrative* Maren Gold - 03/15/2025 11:14 AM EDT POPULATION HEALTH NAVIGATION OUTREACH Action/FYI Patient outreach [...] 15, 2025 11:14 AM documented in this encounterMiami Valley Hospital04-29-2025 Instructions* Patient Instructions* Tulio Calderón MD - 03/07/2025 2:47 PM EDT Endocrine surgery consult placed - call [phone] to make appointment Follow up in 6 to 8 weeks after surgery documented in this encounterMiami Valley Hospital04-29-2025 [facility]04-29-2025 History of Present illness Narrative* Tulio Calderón MD - 03/07/2025 2:39 PM EDT [facility] Follow up note [...] underwent FNAB (with Dr. Leah Uribe at [facility] per chart review) with benign results in [...] every 6 hours as needed for pain. cmcww-tr-4-uiy-fgh-wpomese-ast (MAXIMUM RED KRILL OMEGA-3) 971-18-56-45 mg cap Take 1 tablet by mouth [...] points Echogenicity: Very hypoechoic, 3 points Shape: Cfbhj-hxui-lwxw, 0 points Margin: Smooth, 0 points Echogenic [...] 2 points Echogenicity: Hypoechoic, 2 points Shape: [place]-atlq-eowl, 0 points Margin: Smooth, 0 points Echogenic [...] lifelong therapy with LT4 for thyroid hormone supplementationpost surgery, while in the rest the half gland left might be able to compensate Briefly discussed about complications of surgery, but will be elaborated on visit with the surgeon Follow up in 6 to 8 weeks after surgery MD [facility] Medical Decision Making: Problems: Moderate: 1+ chronic illnesses with change Risk: High: Decision on elective major surgery w/ risk factors Medical Decision Making Level: 4 - Moderate documented in this encounterMiami Valley Hospital03-31-2025 Instructions* Patient Instructions* Tulio Calderón MD - 02/06/2025 1:40 PM EDT IR procedure for thyroid biopsy has been ordered- will be scheduled accordingly documented in this encounterMiami Valley Hospital03-31-2025 [facility]03-31-2025 History of Present illness Narrative* Tulio Calderón MD - 02/06/2025 1:22 PM EDT [facility] Initial Clinic Visit Note NAME: Terri Burciaga PCP: Andre Santana MD Requesting Provider: Andre Santana [address] [facility] [address] My final recommendations will be communicated back to the requesting physician by way of shared medical record or letter via US mail. The patient consented to the use of [employer] software for draft documentation of the visit consistent with [facility] s Notice of Privacy Practices. Chief [...] underwent FNAB (with Dr. Leah Uribe at [facility] per chart review) with benign results in [...] Excessive bruising, shortness of breath Adhesive Tape (Edyanira* Itching Aleve [Naproxen Sod* GI Upset Ativan [...] every 6 hours as needed for pain. funoh-il-9-ium-kzr-xcexkji-ast (MAXIMUM RED KRILL OMEGA-3) 316-72-88-45 mg cap Take 1 tablet by mouth [...] points Echogenicity: Very hypoechoic, 3 points Shape: Uqavr-tncu-axvj, 0 points Margin: Smooth, 0 points Echogenic [...] 2 points Echogenicity: Hypoechoic, 2 points Shape: Mrwpf-snbo-hxuj, 0 points Margin: Smooth, 0 points Echogenic [...] up in 8 weeks Tulio Calderón MD [facility] Endocrinology and Met[facility] Medical Decision Making: Problems: Moderate: 1+ chronic illnesses with change Data: Unique test result(s) reviewed: 3+ Unique test(s) ordered: 1 Independent interpretation of test from other physician/QHCP Medical Decision Making Level: 4 - Moderate documented in this encounterMiami Valley Hospital03-17-2025 Telephone encounter Note * Telephone Encounter - Tiara Tamez MA - 01/23/2025 11:56 AM EDT Patient notified of results, verbalizes understanding of instructions. Tiara Tamez MA [facility]03-17-2025 Miscellaneous Notes* Telephone Encounter - Tiara Tamez MA - 01/23/2025 11:56 AM EDT Patient notified of results, verbalizes understanding of instructions. Tiara Tamez MA * Telephone Encounter - Tiara Tamez MA - 01/23/2025 11:52 AM EDT ----- Message from Maren Rhodes MD sent at 01/23/2025 11:41 AM EDT ----- Please call patient to let her know that I received the results of her bone density scan. It is stable and slightly improved. No additional workup is needed at this time but we will continue to monitor this with repeat bone density in 2 years. documented in this encounterMiami Valley Hospital03-17-2025 Telephone encounter Note * Telephone Encounter - Tiara Tamez MA - 01/23/2025 11:52 AM EDT ----- Message from Maren Rhodes MD sent at 01/23/2025 11:41 AM EDT ----- Please call patient to let her know that I received the results of her bone density scan. It is stable and slightly improved. No additional workup is needed at this time but we will continue to monitor this with repeat bone density in 2 years. [facility]03-14-2025 History of Present illness Narrative* Eduar Loaiza RT(R) - 01/20/2025 3:25 PM EDT Radiology Service Progress Note PATIENT [...] Assigned female at . status: : No status:NO. PATIENT RELEVANT IMPLANT DATA REVIEWED: Not Applicable PATIENT PRESENTS WITH AN IMPLANTABLE OR ATTACHED SOLE DYER: No RADIOLOGY DEPARTMENT: Bone Density PERIPHERAL IV DATA: Not applicable SIGNED BY: RT Alessio(R) January 20, 2025 3:24 PM documented in this encounterMiami Valley Hospital03-14-2025 [facility]02-28-2025 Telephone encounter Note* Telephone Encounter - Krystal Matthews RN - 01/06/2025 3:52 PM EST Attempted to reach patient. Left detailed VM to return call to [phone] for an important message from Dr. Rhodes. Krystal Matthews RN [facility]02-28-2025 Miscellaneous Notes* Telephone Encounter - Krystal Matthews RN - 01/06/2025 3:52 PM EST Attempted to reach patient. Left detailed VM to return call to [phone] for an important message from Dr. Rhodes. Krystal Matthews RN * Telephone Encounter - Krystal Matthews RN - 01/06/2025 3:50 PM EST ----- Message from Maren Rhodes MD sent [...] about that. Thank you! documented in this encounterMiami Valley Hospital02-28-2025 Telephone encounter Note * Telephone Encounter - Krystal Matthews RN - 01/06/2025 3:50 PM EST ----- Message from Maren Rhodes MD sent [...] sooner to talk about that. Thank you! [facility]02-25-2025 Telephone encounter Note* Telephone Encounter - Juliann Dietrich MA - 01/03/2025 4:31 PM EST Spoke with patient and related the message. She will schedule the appointment. Juliann Dietrich MA January 03, 2025 4:32 PM [facility]02-25-2025 Miscellaneous Notes* Telephone Encounter - Juliann Dietrich MA - 01/03/2025 4:31 PM EST Spoke with patient and related the message. She will schedule the appointment. Juliann Dietrich MA January 03, 2025 4:32 PM * Telephone Encounter - Alessandra Stewart RN - 12/29/2024 2:51 PM EST 12/26/24 3:53 PM Result Note Left message for her to call and speak with nurse. Looks like number to schedule with Dr Schmid is [phone] Yocasta Stevenson LPN Regarding result: OUTSIDE VENDOR CARDIAC OUTPATIENT EXTENDED RHYTHM RECORDING (WITHOUT TELEMETRY) TR * Telephone Encounter - Karen Rosenbaum LPN - 12/29/2024 8:26 AM EST ----- Message from Andre Santana MD sent at 12/26/2024 11:29 AM EST ----- Let her Know Dr Abarca has put in a consult to have one of their heart rhythm people see her. documented in this encounterMiami Valley Hospital02-20-2025 Telephone encounter Note * Telephone Encounter - Alessandra Stewart RN - 12/29/2024 2:51 PM EST 12/26/24 3:53 PM Result Note Left message for her to call and speak with nurse. Looks like number to schedule with Dr Schmid is [phone] Yocasta Stevenson LPN Regarding result: OUTSIDE VENDOR CARDIAC OUTPATIENT EXTENDED RHYTHM RECORDING (WITHOUT TELEMETRY) TR [facility]02-20-2025 Telephone encounter Note* Telephone Encounter - Karen Rosenbaum LPN - 12/29/2024 8:26 AM EST ----- Message from Andre Santana MD sent at 12/26/2024 11:29 AM EST ----- Let her Know Dr Abarca has put in a consult to have one of their heart rhythm people see her. [facility]02-17-2025 Telephone encounter Note* Telephone Encounter - Jacquie Evans MD - 12/26/2024 4:48 PM EST Spoke to Terri regarding chest CT results. Stable LLL nodules. Nothing new. No need for further surveillance [address]17-2025 Miscellaneous Notes* Telephone Encounter - Jacquie Evans MD - 12/26/2024 4:48 PM EST Spoke to Terri regarding chest CT results. Stable LLL nodules. Nothing new. No need for further surveillance documented in this encounterMiami Valley Hospital02-17-2025 Telephone encounter Note * Telephone Encounter - Ekaterina Thorne RN - 12/26/2024 3:14 PM EST Patient called and notified that script was sent. Ekaterina Thorne RN [address]17-2025 Miscellaneous Notes* Telephone Encounter - Ekaterina Thorne RN - 12/26/2024 3:14 PM EST Patient called and notified that script was sent. Ekaterina Mati, RN * Telephone Encounter - Anitha Jarvis LPN - 12/26/2024 1:45 PM EST Patient is finishing her Brilinta RX and has 3 tablets to go. At last office visit it was discussed to begin Plavix once she had completed her 90 day supply of Brilinta. She would like 30 day scripts to begin to [facility] [place]. She believes a loading dose was discussed at her office visit. Please advise and contact patient. Anitha Jarvis LPN documented in this encounterMiami Valley Hospital02-17-2025 Telephone encounter Note * Telephone Encounter - Dillan Martin LPN - 12/26/2024 1:52 PM EST The patient has been identified by name [...] Martin LPN December 26, 2024 1:53 PM [facility]02-17-2025 Miscellaneous Notes* Telephone Encounter - Dillan Martin LPN - 12/26/2024 1:52 PM EST The patient has been identified by name [...] 26, 2024 1:53 PM documented in this encounterMiami Valley Hospital02-17-2025 Telephone encounter Note * Telephone Encounter - Anitha Jarvis LPN - 12/26/2024 1:45 PM EST Patient is finishing her Brilinta RX and has 3 tablets to go. At last office visit it was discussed to begin Plavix once she had completed her 90 day supply of Brilinta. She would like 30 day scripts to begin to [facility] [place]. She believes a loading dose was discussed at her office visit. Please advise and contact patient. Anitha Jarvis LPN [facility]02-07-2025 Telephone encounter Note* Telephone Encounter - Maren Rhodes MD - 12/16/2024 2:24 PM EST Dermatology records received, reviewed Punch biopsy 09/19/2024: Interface dermatitis, favor vacuolar, this cutaneous pattern of injury is quite supportive of a connective tissue disorder such as dermatomyositis or lupus erythematosus. Eosinophils are absent. [facility]02-07-2025 Miscellaneous Notes* Telephone Encounter - Maren Rhodes MD - 12/16/2024 2:24 PM EST Dermatology records received, reviewed Punch biopsy 09/19/2024: Interface dermatitis, favor vacuolar, this cutaneous pattern of injury is quite supportive of a connective tissue disorder such as dermatomyositis or lupus erythematosus. Eosinophils are absent. documented in this encounterMiami Valley Hospital02-06-2025 Instructions* Patient Instructions* Maren Rhodes MD - 12/15/2024 2:11 PM EST Labs anytime, fasting in the morning Bone density at [facility] anytime after 01/07/2025 Follow up 6 months Follow up with your PCP team to talk about if you need any more age appropriate cancer screening (mammograms etc) documented in this encounterMiami Valley Hospital02-06-2025 [facility]Do[facility]02-06-2025 History of Present illness Narrative* Maren Rhodes MD - 12/15/2024 2:00 PM EST Images from the original note were not included. Rheumatology FOLLOW UP VISIT Date of Service: 12/15/2024 Patient: Terri Burciaga Medical Record: [id number] Primary Care Physician: Andre Santana MD Last [...] Since her last visit, she followed up withurology for microscopic hematuria, experienced an ankle injury without fracture, and reportedly hada STEMI at an outside facility while on vacation. She followed up with cardiology for her STEMI andis status post PCI with stent placement. Additionally, [...] or stool. She sought dermatological consultation at [facility] due to rashes on her back and chest, initially suspected to be lupus. However, extensive blood tests ruled out this diagnosis. Therash persists, characterized by itching and pain before resolving and transforming into another form. Biopsies were taken from her chest and back, results not available for review. She experiences shortness of breath, which her veneer cutter attributes to Brilinta. She has two more [...] a history of CKD, FRIEDA, GERD, hypertension, atrialtachycardia, low back pain with sciatica, osteopenia who [...] TSH. She was sent to rheumatology for evaluationof Sjogren's. No further work-up was done into her inflammatory markers. Today she presents to clinic alone. She states that she has a long history of back pain with right-sided sciatica. She has been doing physical therapy with minimal improvement. Unfortunately she tooka fall a few months ago and landed [...] to TMJ. She gets intermittent sharp left anglican pain. She has no visual changes, tongue claudication. She has dry eye for the past 6 to 7 years using xjbh-qik-dvbuodr eyedrops a few times a day. She [...] Take 1 tablet by mouth once daily. gseue-bj-9-yqh-qwh-fjcymjd-ast (MAXIMUM RED KRILL OMEGA-3) 360-19-88-45 mg cap Take 1 tablet by mouth [...] 171 lb 15.3 oz (78.0kg) SpO2 97% BMI34.71 kg/(m^2). GENERAL: Alert and oriented, appears a [...] stigmata of erosive disease LABS Reviewed in [facility], notable for: Latest Ref Rng & Units [...] AI <0.2 Sm Antibody Negative Negative Ribosomal VEGETABLE FARMWORKER Ab <1.0 AI <0.2 Ribosomal VEGETABLE FARMWORKER Qualitative Negative Negative Chromatin Ab <1.0 AI <0.2 Chromatin Ab Qual Negative Negative SSA Antibody Qual Negative Positive Anti-SSA <1.0 AI >8.0 Anti-SSB <1.0 AI <0.2 VEGETABLE FARMWORKER Antibody QUAL Negative Negative Scleroderma Ab Qual [...] >20 /HPF >20 /HPF IMAGING Reviewed in [facility], notable for: No new relevant imaging IMPRESSIONS [...] no new symptoms such as fevers or u nintentional weight changes suggestive of malignancy. - Annual Sjogren's labs will be ordered. 2. Shortness of breath. She reports shortness of breath, which her veneer cutter reportedly attributes to Brilinta. She will switch [...] chest and back. - Review records from [facility] 4. Osteopenia. A bone density test is due after 01/07/2025, to be conducted on the same machine in [place]. - Consider physical therapy focused on balance [...] was partially generated with the assistance of [employer] voice recognition software. An attempt was made to correct any dictation errors however there may be some incorrect words, spellings, and punctuation. Maren Rhodes MD Rheumatology Date: December 15, 2024 Time: 2:00 PM documented in this encounterMi[facility]01-31-[facility]25 History of Present illness Narrative* Jacquie Evans MD - 12/09/2024 3:15 PM EST Images from the original note were not included. . [facility] Patient name: Terri Burciaga PCP: Andre [...] to her RCA with post course complicated byfemoral artery pseudoaneurysm requiring surgical repair. Her local veneer cutter plans on changing her anticoagulation to Plavix [...] Take 1 tablet by mouth once daily. mzyuq-sn-6-ndo-vdb-qjfyhsq-ast (MAXIMUM RED KRILL OMEGA-3) 090-71-83-45 mg cap Take 1 tablet by mouth [...] pulmonary function testing Jacquie Evans MD [facility] documented in this encounterMi[facility]01-31-2025 [facility] Telephone encounter Note* Telephone Encounter - Andre Santana MD - 11/28/2024 1:16 PM EST Order placed [facility]01-[facility] Miscellaneous Notes* Telephone Encounter - Andre Santana MD - 11/28/2024 1:16 PM EST Order placed * Telephone Encounter - Sarthak Clemons RN - 11/28/2024 1:06 PM EST Pt called and is notified of providers results and instructions. Pt voices understanding. Pt statesshe would be willing to see a thyroid specialist. Please call and advise Pt once order is in. Sarthak Clemons, IVONNE * Telephone Encounter - Andre Santana MD - 11/28/2024 12:50 PM EST Thyroid us shows the nodule that previously was biopsied is slightly larger. Would she be willing to see thyroid specialist to see if anything more is needed? documented in this encounterMiami [facility]01-20-2025 Telephone encounter Note * Telephone Encounter - Sarthak Clemons RN - 11/28/2024 1:06 PM EST Pt called and is notified of providers results and instructions. Pt voices understanding. Pt statesshe would be willing to see a thyroid specialist. Please call and advise Pt once order is in. Sarthak Clemons, IVONNE [facility]01-20-2025 Telephone encounter Note* Telephone Encounter - Andre Santana MD - 11/28/2024 12:50 PM EST Thyroid us shows the nodule that previously was biopsied is slightly larger. Would she be willing to see thyroid specialist to see if anything more is needed? [facility]01-[facility] Telephone encounter Note* Telephone Encounter - Juliann Dietrich MA - 11/25/2024 9:01 AM EST Patient was made aware of the results. Patient verbalizes understanding. Juliann Dietrich Ma [facility]01-17-2025 Miscellaneous Notes* Telephone Encounter - Juliann Dietrich MA - 11/25/2024 9:01 AM EST Patient was made aware of the results. Patient verbalizes understanding. Juliann Dietrich Ma * Telephone Encounter - Andre Santana MD - 11/25/2024 8:47 AM EST Let her know her labs are all ok. documented in this encounterMiami [facility] Hospital01-17-2025 Telephone encounter Note * Telephone Encounter - Andre Santana MD - 11/25/2024 8:47 AM EST Let her know her labs are all ok. [facility]01-15-[facility] History of Present illness Narrative* Andre Santana MD - 11/23/2024 3:42 PM EST EKG Patient presents with: Follow Up HPI: [...] Take 1 tablet by mouth once daily. cdtjp-cr-4-fez-eev-iezhyxg-ast (MAXIMUM RED KRILL OMEGA-3) 782-51-80-45 mg cap Take 1 tablet by mouth [...] past medical history, surgical history, family history andsocial history today. REVIEW OF SYSTEMS No gi [...] (WITHOUT TELEMETRY) 4. Coronary artery disease involving skag[place] coronary artery of sk[place] heart without angina pectoris- ICD9: 414.01, ICD10: I25.10 - follow with [...] TELEMETRY) Andre Santana MD documented in this encounterMiami [facility] Hospital01-15-2025 [facility]12-31-2024 Telephone encounter Note* Telephone Encounter - Angelika Young - 11/08/2024 1:36 PM EST Requesting 90 days. Patient has been identified [...] 11/23/2024 Please advise. Thank you. Angelika Young. [facility] Miscellaneous Notes* Telephone Encounter - Angelika Young - 11/08/2024 1:36 PM EST Requesting 90 days. Patient has been identified [...] Thank you. Angelika Young. documented in this encounterMiami [facility] Hospital11-27-2024 Telephone encounter Note * Telephone Encounter - Luc Gillespie RN - 10/05/2024 10:35 AM EST Phoned patient and given provider's message below with verbalized understanding. [facility] Miscellaneous Notes* Telephone Encounter - Luc Gillespie RN - 10/05/2024 10:35 AM EST Phoned patient and given provider's message below with verbalized understanding. * Telephone Encounter - Trang Philippe APRN.CNP - 10/04/2024 5:27 PM EST Can please let patient know that I received her labwork, which is stable. Her blood count improved.Kidney function is stable. Trang Philippe APRN.KIET documented in this encounterMiami Valley Hospital11-26-2024 Telephone encounter Note * Telephone Encounter - Trang Philippe APRN.CNP - 10/04/2024 5:27 PM EST Can please let patient know that I received her labwork, which is stable. Her blood count improved.Kidney function is stable. Trang Philippe APRN.KIET [facility] Work Phone: 1(952) 221-137611-25-2024 NoteDo[facility]11-25-2024 History of Present illness Narrative* Darshan Abarca MD - 10/03/2024 2:45 PM EST Images from the original note were not included. Darshan Abarca MD Interventional Cardiology [address] [place] [address] [phone] Chief Complaint Patient presents with: Follow Up HISTORY OF PRESENT ILLNESS: Ms. Burciaga is a 78 year old female seen in my office for assessment management of coronary artery disease acute ST segment elevation myocardial infarction at [place] required drug-eluting stent she had the cardiac authorization via the femoral artery she had Bro drug-eluting stent 3 in [facility] coronary artery her cardiac catheterization (pseudoaneurysm required surgical repair Is doing well from the cardiac point to be asymptomatic denies chest pain but may be slightly shortof breath may be related to Brilinta Cardiac [...] by mouth once daily. 90 tablet 3 tdgbr-fr-1-yqc-dch-vdwsykz-ast (MAXIMUM RED KRILL OMEGA-3) 579-82-57-45 mg cap Take 1 tablet by mouth [...] regular exercise - CARD[facility] RE[facility]AB [place] OUTPT ([place], [place]) 2. Primary hypertension - ICD9: 401.9, ICD10: I10 - Controlled - Continue current medications - Recommend home blood pressure monitoring, to bring results to next visit - Encouraged sodium restriction, DASH or Mediterranean diet - Recommend regular aerobic exercise - CARDIAC REHAB [place]PT ([place], [place]) 3. Coronary artery disease involving skag[place] coronary artery of skag[place] heart without angina pectoris- ICD9: 414.01, ICD10: I25.10 Status post drug-eluting stent to the RCA Moderate disease in the circumflex Medical therapy - CARDIAC REHAB [facility] OUTPT ([place], [place]) Darshan Abarca MD Follow up plannin months Electronically signed by Darshan Abarca MD on October 03, 2024, 2:45 PM The above note was partially created using a dictation recognition software. A reasonable attempt has been made to correct any errors. documented in this encounterMiami [facility] Hospital11-18-2024 Telephone encounter Note * Telephone Encounter - Bev Izaguirre - 09/26/2024 11:29 AM EST Prescription Refill Information The patient has been [...] Bev Aguilar September 26, 2024 11:31 AM [facility]11-18-2024 Miscellaneous Notes* Telephone Encounter - Bev Izaguirre - 09/26/2024 11:29 AM EST Prescription Refill Information The patient has been [...] 26, 2024 11:31 AM documented in this encounterMiami Valley Hospital11-12-2024 Hospital Discharge instructions* Discharge Instructions* Yuli Uribe PA-C - 09/20/2024 9:32 PM EST Do not remove this bandage for 24 hours. After which you can remove the large bandage overlying. Donot remove the small gauze piece that is touching your skin unless it falls off on its own. This has a medication in it that we will keep the area from bleeding. It will fall off on its own when it is ready. * Attachments The following attachments cannot be sent through Care Everywhere. * Biopsy ([place] Island[place]) [facility] Work Phone: 1(674) 956-704111-12-2024 Emergency department Note* Yuli Uribe PA-C - 09/20/2024 8:15 PM EST Images from the original note were not [...] for 24 hours and remove it. States whenshe remove the bandage the area will not [...] for 24 hours and remove it. States whenshe remove the bandage the area will not [...] and then may remove the larger bandage butkeeping the Surgicel in place. Patient encouraged to follow-up with her specialist within the next few days for follow- up. Patient discharged home in improved stable condition Procedure Procedures Yuli Uribe PA-C 09/20/242133 * Michi Zamora DO - 09/20/2024 8:15 PM EST Medical Decision Making Patient was put up for discharge. The patient had been treated with Surgicel and nursing staff noted that the patient had blood through the dressing and continued to bleed from the biopsy site on herback. When I removed the bandage and Surgicel [...] Michi Lemus DO 09/20/242220 documented in this [facility] Work Phone: 1(840) 802-336111-12-2024 Physician Emergency department Note* Yuli Uribe PA-C - 09/20/2024 8:15 PM EST Images from the original note were not [...] for 24 hours and remove it. States whenshe remove the bandage the area will not [...] for 24 hours and remove it. States whenshe remove the bandage the area will not [...] and then may remove the larger bandage butkeeping the Surgicel in place. Patient encouraged to follow-up with her specialist within the next few days for follow- up. Patient discharged home in improved stable condition Procedure Procedures Yuli Uribe PA-C 09/20/242133 [facility] Work Phone: 1(906) 727-398911-12-2024 Physician Emergency department Note* Michi Zamora DO - 09/20/2024 8:15 PM EST Medical Decision Making Patient was put up for discharge. The patient had been treated with Surgicel and nursing staff noted that the patient had blood through the dressing and continued to bleed from the biopsy site on herback. When I removed the bandage and Surgicel [...] Medicine Transition of Care Note. I received Terrira Burciaga in signout from PACO Uribe.. Please [...] Procedure Procedures DO Michi Lemus DO 09/20/242220 [facility] Work Phone: [phone]) [phone] Telephone encounter Note* Telephone Encounter - Jordy Álvarez LPN - 09/16/2024 5:02 PM EST Left detailed message with results/provider instruction on secure identified voicemail. Jordy Álvarez LPN [facility]11-08-2024 Miscellaneous Notes* Telephone Encounter - Jordy Álvarez LPN - 09/16/2024 5:02 PM EST Left detailed message with results/provider instruction on secure identified voicemail. Jordy Álvarez LPN * Telephone Encounter - Trang Philippe APRN.CNP - 09/16/2024 4:56 PM EST Can please let patient know that her urine culture was negative for any infection. She continues toshow the microscopic blood in her urine. If she notices any helio bleeding again, she should let someone know. Trang Philippe APRN.KIET documented in this encounterMiami Valley Hospital11-08-2024 Telephone encounter Note * Telephone Encounter - Trang Philippe APRN.CNP - 09/16/2024 4:56 PM EST Can please let patient know that her urine culture was negative for any infection. She continues toshow the microscopic blood in her urine. If she notices any helio bleeding again, she should let someone know. Trang Philippe APRN.KIET [facility] Work Phone: [phone]) 416-163611-07-2024 NoteDo[facility]11-07-2024 History of Present illness Narrative* Juliann Dietrich MA - 09/15/2024 1:52 PM EST Manual Readin/70 Pulse: 68 Reason for blood [...] 15, 2024 2:13 PM documented in this encounterMiami Valley Hospital11-04-2024 Instructions* Patient Instructions* Trang Philippe APRN.CNP - 09/12/2024 7:36 PM EST Go home and take your carvedilol. Continue to check home BPs. Recheck in 2-3 days and bring home cuff with you. Recheck labs in 1 week. documented in this encounterMiami Valley Hospital11-04-2024 [facility]Do[facility]11-04-2024 History of Present illness Narrative* Trang Philippe APRN.INTELLIGENCE CHIEF - 09/12/2024 6:57 PM EST This is a 78 year old female who presents today with: Patient presents with: Recheck: 4 week follow up HISTORY OF PRESENT ILLNESS: Terri Burciaga is a 78 year old female. Patient presents with: Recheck: 4 week follow up Pt presents today for recheck. Had some labwork completed. Was mildly anemic. [place] and [place] an [place]. She had a cardiac cath w/ stent. [...] there was some scheduling confusion w/ her appttoday. She has been controlled. No chest pain, [...] Take 1 tablet by mouth once daily. yqkgt-nb-2-sir-fyx-mjjujmz-ast (MAXIMUM RED KRILL OMEGA-3) 741-52-58-45 mg cap Take 1 tablet by mouth [...] as needed for worsening/no improvement. Trang Philippe APRN.INTELLIGENCE CHIEF documented in this encounterMiami Valley Hospital10-21-2024 Telephone encounter Note * Telephone Encounter - Jordy Álvarez LPN - 08/29/2024 12:37 PM EDT Pt notified. She verbalized understanding. Jordy Álvarez LPN [facility]10-21-2024 Miscellaneous Notes* Telephone Encounter - Jordy Álvarez LPN - 08/29/2024 12:37 PM EDT Pt notified. She verbalized understanding. Jordy Álvarez LPN * Telephone Encounter - Trang Philippe APRN.CNP - 08/29/2024 11:43 AM EDT Can please let patient know that I received her repeat labs. It continues to show a mild anemia, but is stable. The other labs and stool were normal. It looks like she has an office visit in 2 weeks.Lets plan on checking it again at that time to ensure that it is stable and not worsening. I went ahead and put the order in, so if she wants to do it at the end of next week she can; otherwise, we can just get it when she is in for her appt (she does not need to fast). Trang Philippe APRN.CNP documented in this encounterMiami Valley Hospital10-21-2024 Telephone encounter Note * Telephone Encounter - Trang Philippe APRN.CNP - 08/29/2024 11:43 AM EDT Can please let patient know that I received her repeat labs. It continues to show a mild anemia, but is stable. The other labs and stool were normal. It looks like she has an office visit in 2 weeks.Lets plan on checking it again at that time to ensure that it is stable and not worsening. I went ahead and put the order in, so if she wants to do it at the end of next week she can; otherwise, we can just get it when she is in for her appt (she does not need to fast). Trang Philippe APRN.CNP [facility]10-16-[facility] Telephone encounter Note* Telephone Encounter - Venessa Price LPN - 08/24/2024 10:58 AM EDT Prescription Refill Information The patient has been [...] Price LPN August 24, 2024 11:05 AM [facility] Miscellaneous Notes* Telephone Encounter - Venessa Price LPN - 08/24/2024 10:58 AM EDT Prescription Refill Information The patient has been [...] 24, 2024 11:05 AM documented in this encounterMiami Valley Hospital10-09-2024 Telephone encounter Note * Telephone Encounter - Sarthak Clemons RN - 08/17/2024 9:04 AM EDT Pt called and is notified of providers results and instructions. Pt voices understanding. Printed Pts labs for her to get from Medical Records. Sarthak Clemons RN [facility]10-09-2024 Miscellaneous Notes* Telephone Encounter - Sarthak Clemons RN - 08/17/2024 9:04 AM EDT Pt called and is notified of providers results and instructions. Pt voices understanding. Printed Pts labs for her to get from Medical Records. Sarthak Clemons, RN * Telephone Encounter - Trang Philippe APRN.CNP - 08/16/2024 10:14 PM EDT Can please let patient know that we received her lab results. Overall, everything looks stable. She is mildly anemic. It could be related to her recent health events, but we should follow-up withthis and ensure that it is stable/improving. I [...] kidney function is stable. documented in this encounterMiami Valley Hospital10-08-2024 Telephone encounter Note * Telephone Encounter - Trang Philippe APRN.CNP - 08/16/2024 10:14 PM EDT Can please let patient know that we received her lab results. Overall, everything looks stable. She is mildly anemic. It could be related to her recent health events, but we should follow-up withthis and ensure that it is stable/improving. I [...] were normal. Her kidney function is stable. [facility]10-04-[facility] Instructions* Patient Instructions* Andre Santana MD - 08/12/2024 3:12 PM EDT Try roger or claritin as needed. documented in this encounterMiami Valley Hospital10-04-2024 [facility]10-04-2024 History of Present illness Narrative* Andre Santana MD - 08/12/2024 2:53 PM EDT Patient presents with: Follow Up HPI: Patient presents today for office visit for follow up. Saw Sandra Holm on 07/18/24. Had acute STEMI while in [place] on 06/18/24. Had stent placement. Had bleed in right femoral artery and pseudoaneurysm. Went back into [facility] on 06/30/24 for repair. Now on [...] Take 1 tablet by mouth once daily. hbxhb-ip-8-jht-qrz-uoduheg-ast (MAXIMUM RED KRILL OMEGA-3) 662-87-49-45 mg cap Take 1 tablet by mouth [...] past medical history, surgical history, family history andsocial history today. REVIEW OF SYSTEMS All other [...] very unusual. Just started on antibiotics and steroidsso too early to tell if helps. Add [...] - MAGNESIUM 6. Coronary artery disease involving skagway coronary artery of skagway heart without angina pectoris- ICD9: 414.01, ICD10: I25.10 - stable. 7. Fatigue, unspecified type - ICD9: 780.79, ICD10: R53.83 - check labs. - THYROID STIMULATING HORMONE - T4/FTI/T4U 8. Mixed hyperlipidemia - ICD9: 272.2, ICD10: E78.2 - COMPLETE BLOOD COUNT AND DIFFERENTIAL - COMPREHENSIVE METABOLIC PANEL - LIPID PANEL BASIC - CREATINE KINASE/CK Andre Santana MD RTO in four to six weeks or prn documented in this encounterMiami Valley Hospital10-02-2024 Telephone encounter Note * Telephone Encounter - Yocasta Stevenson LPN - 08/10/2024 2:05 PM EDT Called patient and scheduled her an appt. [facility] Miscellaneous Notes* Telephone Encounter - Yocasta Stevenson LPN - 08/10/2024 2:05 PM EDT Called patient and scheduled her an appt. * Telephone Encounter - Andre Santana MD - 08/10/2024 1:35 PM EDT Can't say that it is a very common thing that I have ever seen. Would need to see of us for something like that. * Telephone Encounter - Lanny Parks LPN - 08/10/2024 1:27 PM EDT Pt states she has a rash on her shoulders & upper back that started ~1 month ago. Rash itches, it is big bumps but not hives per pt. Pt was seen for same yest in [facility]. Pt states she was given keflex & a medrol dose pack, pt states EC was concerned with an infection. Pt is concerned she may berejecting the stent that was placed after her heart attack on 06/18/24. Pt is also requesting a full lab workup. States she wants everything checked. Lanny Parks LPN documented in this encounterMiami Valley Hospital10-02-2024 Telephone encounter Note * Telephone Encounter - Andre Santana MD - 08/10/2024 1:35 PM EDT Can't say that it is a very common thing that I have ever seen. Would need to see of us for something like that. [facility]10-02-[facility] Telephone encounter Note* Telephone Encounter - Lanny Parks LPN - 08/10/2024 1:27 PM EDT Pt states she has a rash on her shoulders & upper back that started ~1 month ago. Rash itches, it is big bumps but not hives per pt. Pt was seen for same yest in [facility]. Pt states she was given keflex & a medrol dose pack, pt states EC was concerned with an infection. Pt is concerned she may berejecting the stent that was placed after her heart attack on 06/18/24. Pt is also requesting a full lab workup. States she wants everything checked. Lanny Parks LPN [facility]10-01-[facility] History of Present illness Narrative* Latoya Kat RT(R) - 08/09/2024 1:50 PM EDT Radiology Service Progress Note PATIENT [...] PATIENT PRESENTS WITH AN IMPLANTABLE OR ATTACHED SOLE DYER: No RADIOLOGY DEPARTMENT: General X-ray: Exam(s) Completed: Upper Extremity X- Ray(s): Fingers/Thumb, right PERIPHERAL IV DATA: Not applicable SIGNED BY: RT Dori(R) August 09, 2024 1:27 PM documented in this encounterMiami Valley Hospital10-01-2024 [facility]10-01-2024 [facility]10-01-2024 History of Present illness Narrative* Jazmin Palumbo PA - 08/09/2024 1:25 PM EDT This note was created using NoteWriter. Subjective Terri Burciaga is a 78 year [...] minimal improvement. Of note, patient had an MN about a month ago with cardiac catheterization. [...] Take 1 tablet by mouth once daily. ldnen-xy-6-lpg-tmj-rncckot-ast (MAXIMUM RED KRILL OMEGA-3) 554-41-96-45 mg cap Take 1 tablet by mouth [...] ER evaluation. PACO Jose documented in this encounterMiami Valley Hospital09-17-2024 NoteDo[facility]09-17-2024 History of Present illness Narrative* Anitha Pacheco, DO - 07/26/2024 9:12 AM EDT Images from the original note were not included. [facility] DEPARTMENT OF VASCULAR SURGERY OUTPATIENT VISIT DATE July 26, 2024 OUTPATIENT VISIT TYPE CONSULTATION SERVICE DATE: 07/26/2024 SERVICE TIME: 9:12 AM PRIMARY CARE PHYSICIAN: Andre Santana MD REFERRING PROVIDER: Sandy Holm [id number] [facility] [id number] Consult requested for an opinion regarding the [...] She was [facility] [place] [facility] and had a MN. She underwent cardiac catheterization and developed a [...] Take 1 tablet by mouth once daily. ghwoh-ga-3-yyg-lyk-jgzjmjj-ast (MAXIMUM RED KRILL OMEGA-3) 440-15-49-45 mg cap Take 1 tablet by mouth [...] 2024 TIME: 9:12 AM documented in this encounterMiami [facility]09-16-[facility] History of Present illness Narrative* Darshan Abarca MD - 07/25/2024 10:53 AM EDT Images from the original note were not included. Darshan Abarca MD Interventional Cardiology [address] [place] [address] [phone] Chief Complaint Patient presents with: Established Patient [...] by mouth once daily. 90 tablet 3 xwxan-os-2-gir-zhi-enixhou-ast (MAXIMUM RED KRILL OMEGA-3) [id number] mg cap Take 1 tablet by mouth [...] with coronary artery disease status post RCA drug- eluting stent ASSESSMENT/PLAN: 1. Post PTCA - ICD9: [...] on medication 3. Coronary artery disease involving [place] coronary artery of [place] heart without angina pectoris- ICD9: 414.01, ICD10: I25.10 Continue medical therapy Darshan Abarca MD Follow up plannin months Electronically signed by Darshan Abarca MD on July 25, 2024, 10:53 AM The above note was partially created using a dictation recognition software. A reasonable attempt has been made to correct any errors. documented in this encounterMiami [facility] Hospital09-12-2024 Telephone encounter Note * Telephone Encounter - Simran Sommers MA - 07/21/2024 2:35 PM EDT Patient called in stating she has sutures [...] be comfortable removing those and she asked thatI send a message to ask. Patient can be contacted back at [phone]. [facility]09[facility] Miscellaneous Notes* Telephone Encounter - Simran Sommers MA - 07/21/2024 2:35 PM EDT Patient called in stating she has sutures [...] be comfortable removing those and she asked thatI send a message to ask. Patient can be contacted back at [phone]. * Telephone Encounter - Ekaterina Thorne RN - 06/27/2024 12:02 PM EDT Patient had MN and PCI on 06/18/24 while in [place]. Patient scheduled 07/25/24. Started on Brilinta and Crestor. Patient given 1 month supply. Patient asking if Dr. Abarca would order her a refill. Will call patient back asking for more information so I can call for medical records. Patient was driving at this time. Ekaterina Thorne RN * Telephone Encounter - Citlaly Daniels - 06/27/2024 11:11 AM EDT Patient calling to schedule post op follow up with Dr. Tevin DRUMMOND. 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 She received cardiac stents. Please notify patient if she can be seen sooner than scheduled appointment on 10/03/24. documented in this encounterMiami Valley Hospital09-09-2024 Instructions* Patient Instructions* Sandy Holm APRN.CNP - 07/18/2024 4:07 PM EDT 1) Continue losartan 100 mg daily 2) Continue Brillinta 3) Continue carvedilol 4) Consult vascular surgeon HODA 5) Follow up in 4 months Get heart cath and intervention [facility] from [facility] documented in this encounterMiami Valley Hospital09-09-2024 [facility] History of Present illness Narrative* Sandy Holm APRN.INTELLIGENCE CHIEF - 07/18/2024 3:39 PM EDT This is a 78 year old female [...] mouth once daily. (Patient not taking: Reported on07/18/2024) metoprolol succinate ER (TOPROL XL) 50 mg [...] CALCIUM ORAL Take by mouth once daily. [id number] 1 mg-25 mg-12.5 mg-1 mg tab Take [...] 240.9, ICD10: E04.9 Found on scan for MN - US THYROID/PARATHYROID 5. Mixed hyperlipidemia - [...] improvement. Sandy Holm APRN.KIET documented in this encounterMiami [facility] Hospital09-05-2024 Telephone encounter Note * Telephone Encounter - Juliann Dietrich MA - 07/14/2024 5:23 PM EDT Pt notified of provider message and medication change. She verbalizes understanding and did teach back method. Juliann Dietrich MA July 14, 2024 5:23 PM [facility]09-[facility] Miscellaneous Notes* Telephone Encounter - Juliann Dietrich MA - 07/14/2024 5:23 PM EDT Pt notified of provider message and medication change. She verbalizes understanding and did teach back method. Juliann Dietrich MA July 14, 2024 5:23 PM * Telephone Encounter - Sandy Holm APRN.CNP - 07/14/2024 4:55 PM EDT Please have her double up on Olmesartan to 20 mg daily. If BP is under 150 SBP and under 90- safe to come home. Give it a day or two and check again with feet on the floor- no interruptions... * Telephone Encounter - Coni Mcdaniel RN - 07/14/2024 4:06 PM EDT Patient calls and is very frustrated. Since [...] 181/99. Vascular had told her to call veneer cutter that she had seen in [place]. Patient states that she was told that she needed to call her doctor in [place] about heart medication. Patient is scared to travel home with blood pressure being elevated. Patient has hospital follow up visit with Sandra on 07/18/[address] Abarca on 07/25/2024. Patient asking if she should go back to previous medications that were prescribed [facility]? Please review and advise, Coni Mcdaniel RN documented in this encounterMiami Valley Hospital09-05-2024 Telephone encounter Note * Telephone Encounter - Sandy Holm APRN.CNP - 07/14/2024 4:55 PM EDT Please have her double up on Olmesartan to 20 mg daily. If BP is under 150 SBP and under 90- safe to come home. Give it a day or two and check again with feet on the floor- no interruptions... [facility] Telephone encounter Note* Telephone Encounter - Coni Mcdaniel RN - 07/14/2024 4:06 PM EDT Patient calls and is very frustrated. Since [...] 181/99. Vascular had told her to call veneer cutter that she had seen in [place]. Patient states that she was told that she needed to call her doctor in [place] about heart medication. Patient is scared to travel home with blood pressure being elevated. Patient has hospital follow up visit with Sandra on 07/18/[address] Abarca on 07/25/2024. Patient asking if she should go back to previous medications that were prescribed by [facility] doctors? Please review and advise, Coni Mcdaniel RN [facility]08-29-[facility] Telephone encounter Note* Telephone Encounter - Teri Torres MA - 07/07/2024 3:01 PM EDT Spoke with patient. Seeing Vascular for post op next in [place]. Will discuss need for vascular to remove sutures. If so, will discuss at follow up with Sandra Holm on 07/18/24. Teri Torres MA [facility]08-29-[facility]24 Miscellaneous Notes* Telephone Encounter - Teri Torres MA - 07/07/2024 3:01 PM EDT Spoke with patient. Seeing Vascular for post op next in [place]. Will discuss need for vascular to remove sutures. If so, will discuss at follow up with Sandra Holm on 07/18/24. Teri Torres MA * Telephone Encounter - Andre Santana MD - 07/07/2024 11:00 AM EDT Usually you would not see a vascular surgeon simply for suture removal. There must be a reason why they want that and I need a diagnosis or vascular will not see her for that without it. * Telephone Encounter - Tahira Damico RN - 07/07/2024 10:50 AM EDT Spoke with patient and she is not returning to [place] until approximately 07/16/24 now. Will cancel the07/15 Hospital F/U appt with Dr. Santana and keep 07/18 appt that she previously had with Sandy Holm CNP, if this ok. Pt states her right groin sutures are to be removed in 3-4 weeks from today. Reports she was instructed to follow up with a Vascular Surgeon for this. Please see Dr. Santana's note below as well. Tahira Damico RN * Telephone Encounter - Andre Santana MD - 07/07/2024 10:39 AM EDT Ok for that appt. Looks like she has already been communicating with Dr Abarca her veneer cutter herefor follow up. I need to see the notes to see why vascular surgeon is needed(did she have a pseudoaneurysm etc)? * Telephone Encounter - Tahira Damico RN - 07/07/2024 10:12 AM EDT [place], Nurse manager investigations calling from [facility] regarding patient. States while patient was in [place] for a family event she had an MN. Pt consequently was cared for by a slab miller operator there on 06/19/24 and then resulting in further procedure on 06/30/24. Patient discharged yesterday 07/06/24 from [facility]. Patient has right groin sutures currently. Pt plans to drive from [place] back to home in [place] later this week or early next week. Pt is to follow up with Dr. Santana and with a Vascular Surgeon. Pt does not have a vascular surgeon in [place] at this time. Clifton states she will be faxing over pt's records from her stay at [facility] toDr. Santana's office today. Asking if patient may be scheduled for Hospital Follow Up on 07/15/24 at 4:20pm? Please call patient to confirm if this appt can be made for pt. Please also advise patient on how she should proceed with following up with a vascular surgeon due to right groin sutures. Tahira Damico RN documented in this encounterMiami Valley Hospital08-29-2024 Telephone encounter Note * Telephone Encounter - Andre Santana MD - 07/07/2024 11:00 AM EDT Usually you would not see a vascular surgeon simply for suture removal. There must be a reason why they want that and I need a diagnosis or vascular will not see her for that without it. [facility] Telephone encounter Note* Telephone Encounter - Tahira Damico RN - 07/07/2024 10:50 AM EDT Spoke with patient and she is not returning to [place] until approximately 07/16/24 now. Will cancel the07/15 Hospital F/U appt with Dr. Santana and keep 07/18 appt that she previously had with Sandy Holm CNP, if this ok. Pt states her right groin sutures are to be removed in 3-4 weeks from today. Reports she was instructed to follow up with a Vascular Surgeon for this. Please see Dr. Santana's note below as well. Tahira Damico RN [facility]08-29-[facility] Telephone encounter Note* Telephone Encounter - Andre Santana MD - 07/07/2024 10:39 AM EDT Ok for that appt. Looks like she has already been communicating with Dr Abarca her veneer cutter herefor follow up. I need to see the notes to see why vascular surgeon is needed(did she have a pseudoaneurysm etc)? [facility]08-[facility] Telephone encounter Note* Telephone Encounter - Tahira Damico RN - 07/07/2024 10:12 AM EDT [place], Nurse manager investigations calling from [facility] regarding patient. States while patient was in [place] for a family event she had an MN. Pt consequently was cared for by a slab miller operator there on 06/19/24 and then resulting in further procedure on 06/30/24. Patient discharged yesterday 07/06/24 from [facility]. Patient has right groin sutures currently. Pt plans to drive from [place] back to home in [place] later this week or early next week. Pt is to follow up with Dr. Santana and with a Vascular Surgeon. Pt does not have a vascular surgeon in [place] at this time. Clifton states she will be faxing over pt's records from her stay at [facility] toDr. Santana's office today. Asking if patient may be scheduled for Hospital Follow Up on 07/15/24 at 4:20pm? Please call patient to confirm if this appt can be made for pt. Please also advise patient on how she should proceed with following up with a vascular surgeon due to right groin sutures. Tahira Damico RN [facility]08-27-[facility] Telephone encounter Note* Telephone Encounter - Ekaterina Thorne RN - 07/05/2024 10:13 AM EDT Patient called and informed about scripts. Patient states that she was admitted to the hospital in [place] again on 06/30 due to HTN and a hematoma on the cath incision site. Ekaterina Thorne RN [facility]08-27-2024 Miscellaneous Notes* Telephone Encounter - Ekaterina Thorne RN - 07/05/2024 10:13 AM EDT Patient called and informed about scripts. Patient states that she was admitted to the hospital in [place] again on 06/30 due to HTN and a hematoma on the cath incision site. Ekaterina Thorne RN * Telephone Encounter - Ekaterina Thorne RN - 06/30/2024 9:56 AM EDT Patient ordered new meds on discharge from recent hospital stay at [facility] in [place], [place] and asking for a refill to [...] patient. Ekaterina Thorne RN documented in this encounterMiami Valley Hospital08-22-2024 Telephone encounter Note * Telephone Encounter - Ekaterina Thorne RN - 06/30/2024 9:56 AM EDT Patient ordered new meds on discharge from recent hospital stay at [facility] in [place], [place] and asking for a refill to [...] given to the patient. Ekaterina Thorne RN [facility]08-[facility] Telephone encounter Note* Telephone Encounter - Ekaterina Thorne RN - 06/27/2024 12:02 PM EDT Patient had MN and PCI on 06/18/24 while in [place]. Patient scheduled 07/25/24. Started on Brilinta and Crestor. Patient given 1 month supply. Patient asking if Dr. Abarca would order her a refill. Will call patient back asking for more information so I can call for medical records. Patient was driving at this time. Ekaterina Thorne RN [facility]08-19-[facility] Telephone encounter Note* Telephone Encounter - Citlaly Daniels - 06/27/2024 11:11 AM EDT Patient calling to schedule post op follow up with Dr. Tevin DRUMMOND. 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 She received cardiac stents. Please notify patient if she can be seen sooner than scheduled appointment on 10/03/24. [facility]07-[facility] History of Present illness Narrative* Aris Stephenson APRN.INTELLIGENCE CHIEF - 06/08/2024 5:04 PM EDT Images from the original note [...] by mouth three times daily as needed. [id number] 1 mg-25 mg-12.5 mg-1 mg tab Take [...] resp. rate 20, weight 82.5 kg (181 lb14.1 oz), SpO2 98%. Physical Exam Constitutional: General: [...] if symptoms persist. Dictated by : MD Aris BLANCO APRN.INTELLIGENCE CHIEF documented in this encounterMiami Valley Hospital07-31-2024 History of Present illness Narrative* Sierra Morrow RT(R) - 06/08/2024 4:20 PM EDT Radiology Service Progress Note PATIENT [...] PATIENT PRESENTS WITH AN IMPLANTABLE OR ATTACHED SOLE DYER: No RADIOLOGY DEPARTMENT: General X-ray: Exam(s) Completed: Lower Extremity X- Ray(s): Ankle, Right PERIPHERAL IV DATA: Not applicable SIGNED BY: RT Luann(R) June 08, 2024 4:06 PM documented in this encounterMiami Valley Hospital07-30-2024 Telephone encounter Note * Telephone Encounter - Sandy Holm APRN.CNP - 06/07/2024 3:33 PM EDT Done. [facility]07-30-[facility] Miscellaneous Notes* Telephone Encounter - Sandy Holm APRN.CNP - 06/07/2024 3:33 PM EDT Done. * Telephone Encounter - Luc Gillespie RN - 06/07/2024 2:47 PM EDT Patient reports she tried to use the [employer] card but it requires you pay $9.99/mth. Patient doesn'twant to do that. Asking provider to send liquid Rx (fluorouracil topical solution) to [facility], and will have insurance cover it. * Telephone Encounter - Juliann Dietrich MA - 06/07/2024 9:28 AM EDT Pt has a rx discount card that she would like to try first. She will go to the pharmacy and see if it will be affordable. If not she will call back to get solution called in. Juliann Dietrich MA June 07, 2024 9:29 AM * Telephone Encounter - Sandy Holm APRN.CNP - 06/07/2024 8:40 AM EDT Please ask patient if she would like to try the fluorouracil topical solution? Her insurance says that would be covered. * Telephone Encounter - Ekaterina Jordan LPN - 06/07/2024 8:29 AM EDT This was denied. Dear TERRI BURCIAGA, We [...] same drugs with different strengths or forms. [employer] may only require one strength or form of that drug to be tried. This decision was from [facility] Non-Formulary Exceptions * Telephone Encounter - Ekaterina Jordan LPN - 06/03/2024 11:59 AM EDT Electronic PA rec'd and completed for fluorouracil 1% cream documented in this encounterMiami Valley Hospital07-30-2024 Telephone encounter Note * Telephone Encounter - Luc Gillespie RN - 06/07/2024 2:47 PM EDT Patient reports she tried to use the goodrx card but it requires you pay $9.99/mth. Patient doesn'twant to do that. Asking provider to send liquid Rx (fluorouracil topical solution) to [facility], and will have insurance cover it. [facility]07-30-[facility] Telephone encounter Note* Telephone Encounter - Juliann Dietrich MA - 06/07/2024 9:28 AM EDT Pt has a rx discount card that she would like to try first. She will go to the pharmacy and see if it will be affordable. If not she will call back to get solution called in. Juliann Dietrich MA June 07, 2024 9:29 AM [facility]07-30-[facility] Telephone encounter Note* Telephone Encounter - Sandy Holm APRN.CNP - 06/07/2024 8:40 AM EDT Please ask patient if she would like to try the fluorouracil topical solution? Her insurance says that would be covered. [facility]07-30-[facility] Telephone encounter Note* Telephone Encounter - Ekaterina Jordan LPN - 06/07/2024 8:29 AM EDT This was denied. Dear TERRI BURCIAGA, We [...] same drugs with different strengths or forms. [facility] may only require one strength or form of that drug to be tried. This decision was from [facility] Non-Formulary Exceptions [facility]07-26-20[facility] Telephone encounter Note* Telephone Encounter - Ekaterina Jordan LPN - 06/03/2024 11:59 AM EDT Electronic PA rec'd and completed for fluorouracil 1% cream [facility]07-26-2024 Telephone encounter Note* Telephone Encounter - Sarthak Clemons RN - 06/03/2024 11:52 AM EDT Pt called and is notified of providers results and instructions. Pt voices understanding. Sarthak Clemons RN [facility]07-26-2024 Miscellaneous Notes* Telephone Encounter - Sarthak Clemons RN - 06/03/2024 11:52 AM EDT Pt called and is notified of providers results and instructions. Pt voices understanding. Sarthak Clemons RN * Telephone Encounter - Sandy Holm APRN.INTELLIGENCE CHIEF - 06/03/2024 11:43 AM EDT Please let patient know that I did order the 1% cream instead. Hopefully that is more affordable. Iknow it was expensive, not that expensive. She may certainly wait on the metoprolol until she returns. * Telephone Encounter - Sarthak Clemons RN - 06/03/2024 10:31 AM EDT Pt called in and reports the Fluorouracil [...] RX if provider willing. documented in this encounterMiami Valley Hospital07-26-2024 Telephone encounter Note * Telephone Encounter - Sandy Holm APRN.CNP - 06/03/2024 11:43 AM EDT Please let patient know that I did order the 1% cream instead. Hopefully that is more affordable. Iknow it was expensive, not that expensive. She may certainly wait on the metoprolol until she returns. [facility]07-26-20[facility] Telephone encounter Note* Telephone Encounter - Sarthak Clemons RN - 06/03/2024 10:31 AM EDT Pt called in and reports the Fluorouracil [...] send in new RX if provider willing. [facility]07-25-2024 Instructions* Patient Instructions* Sandy Holm APRN.CNP - 06/02/2024 11:43 AM EDT 1) Cut Dyazide once a week for 1 month then stop 2) Start metoprolol XL 50 mg daily 3) Follow up in 6 weeks 4) Medrol taper as discussed 5) Fluorouracil cream daily for 28 days to raised bumps on left chest and arm- expect irritation documented in this encounterMiami Valley Hospital07-25-2024 History of Present illness Narrative* Sandy Holm APRN.CNP - 06/02/2024 11:26 AM EDT This is a 78 year old female [...] by mouth three times daily as needed. [id number] 1 mg-25 mg-12.5 mg-1 mg tab Take [...] allergies a little, hemoptysis, wheezing, dyspnea or shortnessof breath with mowing CARDIOVASCULAR: Negative for chest [...] improvement. Sandy Holm APRN.KIET documented in this encounterMiami Valley Hospital04-15-2024 Nurse Note* Sarah Miranda LPN - 02/22/2024 3:13 PM EDT AMBULATORY CYSTOSCOPY PROCEDURE PREOPERATIVE/PROCEDURAL VERIFICATION: Patient verified [...] Nurse: Sarah Miranda LPN documented in this encounterMiami Valley Hospital04-15-2024 Procedure note* Anitra Juarez MD - 02/22/2024 3:08 PM EDT [facility] Patient presents with hematuria gross for cystoscopy. Epic notes reviewed: 08/25/2023 OV Evan Johnson The [...] patient: Yes Procedure confirmed with physician and personal support worker: Yes UNIVERSAL PROTOCOL / SAFETY CHECKLIST Procedure [...] cystoscopy procedure and personnel were discussed with thepatient. The verbal consent was obtained and the [...] the flexible cystoscope was removed atraumatically. The patienttolerated the procedure without complications. Patient was given [...] Some Anitra Juarez MD documented in this encounterMiami Valley Hospital04-15-2024 Instructions* Patient Instructions* Sarah Miranda LPN - 02/22/2024 2:20 PM EDT [facility] Department of Urology After your Cystoscopy [...] clear with drinking extra fluids. Please call [facility] office at [phone] M-F 8:00 am to 5:00pm With any questions you may have and ask for the Triage Nurse After 5:00 pm or weekends [phone] Thank you 09/14/13 KW documented in this encounterMiami Valley Hospital03-18-2024 Miscellaneous Notes* Telephone Encounter - Teri Torres MA - 01/25/2024 9:35 AM EDT Patient informed and verbalized understanding. States this trace of blood is nothing new. She thinks she also has a kidney stone that's moving. Has follow up scheduled with urology. Does not wish to complete urine test at this time. Teri Torres MA * Telephone Encounter - Luc Faustin PA-C - 01/23/2024 1:37 PM EDT Please let her know: labs look pretty [...] Thanks, Isreal Faustin PA-C documented in this encounterMiami Valley Hospital03-14-2024 Miscellaneous Notes* Telephone Encounter - Yessenia Hoffman LPN - 01/21/2024 8:36 AM EDT Patient given results and verbalized understanding of instructions given. Yessenia Hoffman LPN * Telephone Encounter - Megha Chavis APRN.KIET - 01/21/2024 8:00 AM EDT Is negative for COVID, flu, RSV. Please notify thank you documented in this encounterMiami Valley Hospital03-13-2024 History of Present illness Narrative* Renay Rosas RT(R) - 01/20/2024 4:10 PM EDT Radiology Service Progress Note PATIENT [...] PATIENT PRESENTS WITH AN IMPLANTABLE OR ATTACHED SOLE DYER: No RADIOLOGY DEPARTMENT: General X-ray: Exam(s) Completed: Chest X-Ray PERIPHERAL IV DATA: Not applicable SIGNED BY: RT Elinor(R) January 20, 2024 4:07 PM documented in this encounterMiami Valley Hospital03-13-2024 Instructions* Patient Instructions* Aris Stephenson APRN.KIET - 01/20/2024 3:53 PM EDT [...] antibiotics. They are spread by coughs, sneezes, anddirect contact, especially jijp-sl-iide. A respiratory tract infection usually clears up [...] as water, fruit juice, tea, clear soups, andcarbonated beverages. CONTACT YOUR DOCTOR IF : 1. [...] 1. You cough up thick yellow, green, acevedo, or bloody sputum. 2. You have difficulty breathing, pain in your chest, or your skin or nails look acevedo or blue. 3. You have shaking chills or a temperature over 102 F (39 C). documented in this encounterMiami Valley Hospital03-13-2024 History of Present illness Narrative* Aris Stephenson APRN.CNP - 01/20/2024 3:50 PM EDT Subjective HPI HPI Terri Burciaga is a [...] by mouth three times daily as needed. [id number] 1 mg-25 mg-12.5 mg-1 mg tab Take [...] on the left. Dictated by : MD Aris SAAVEDRA APRN.INTELLIGENCE CHIEF documented in this encounterMiami Valley Hospital02-01-2024 Instructions* Patient Instructions* Maren Rhodes MD - 12/10/2023 2:31 PM EST Labs anytime We will call with results 3-6 mo follow up with KAYLEE Mcdaniel, 1 year with me documented in this encounterMiami Valley Hospital02-01-2024 History of Present illness Narrative* Maren Rhodes MD - 12/10/2023 2:18 PM EST Images from the original note were not included. Rheumatology FOLLOW UP VISIT Date of Service: 12/10/2023 Patient: Terri Burciaga Medical Record: [id number] Primary Care Physician: Andre Santana MD Last [...] a history of CKD, FRIEDA, GERD, hypertension, atrialtachycardia, low back pain with sciatica, osteopenia who [...] TSH. She was sent to rheumatology for evaluationof Sjogren's. No further work-up was done into her inflammatory markers. Today she presents to clinic alone. She states that she has a long history of back pain with right-sided sciatica. She has been doing physical therapy with minimal improvement. Unfortunately she tooka fall a few months ago and landed [...] to TMJ. She gets intermittent sharp left anglican pain. She has no visual changes, tongue claudication. She has dry eye for the past 6 to 7 years using giff-qat-ihvvwpt eyedrops a few times a day. She [...] by mouth three times daily as needed. [id number]-T7-[id number]-P-U2-[id number]-[id number] 1 mg-25 mg-12.5 mg-1 mg tab Take [...] of inflammatory arthritis today LABS Reviewed in [facility], notable for: GFR downtrending over the past [...] ANTIBODY Negative - - - Negative RIBOSOMAL VEGETABLE FARMWORKER AB <1.0 AI - - - <0.2 RIBOSOMAL VEGETABLE FARMWORKER QUAL Negative - - - Negative CHROMATIN AB <1.0 AI - - - <0.2 CHROMATIN AB QUAL Negative - - - Negative SSA ANTIBODY QUAL Negative - - - Positive(A) ANTI-SSA <1.0 AI - - - >8.0(H) ANTI-SSB <1.0 AI - - - <0.2 VEGETABLE FARMWORKER ANTIBODY QUAL Negative - - - Negative [...] /HPF(A) - - - IMAGING Reviewed in [facility], notable for: 11/05/2023 CT chest: 1. Interval [...] risk 10% Hip fracture risk 1.8% ASSESSMENT Treri Burciaga is a 78 year old White female with a history of CKD, FRIEDA, GERD, hypertension, atrialtachycardia, low back pain with sciatica, status post VATS wedge resection of lung with granulomatous disease nonspecified follows with pulmonology, osteopenia who presents to rheumatology clinic forfollow-up of Sjogren's disease. At this time stable [...] have had traumatic fracture of ankle, cannot findany verifying x-rays on chart review 6. Recommend age-appropriate cancer screening, defer to PCP 7. Follow-up 6 months LIZETET Mcdaniel to establish care 1 hour slot [...] was partially generated with the assistance of [employer] voice recognition software. An attempt was made to correct any dictation errors however there may be some incorrect words, spellings, and punctuation. Maren Rhodes MD Rheumatology Date: December 10, 2023 Time: 2:18 PM documented in this encounterMiami [facility]12-31-2023 Miscellaneous Notes* Telephone Encounter - Sandy Hernandez LPN - 11/08/2023 9:02 AM EST Patient notified. Verbalized understanding. * Telephone Encounter - Beena Perez PA-C - 11/08/2023 8:42 AM EST Please call and let patient know her urine culture did not show an infection. Recommend follow-up with PCP continued symptoms for blood in urine. documented in this encounterMiami [facility] Hospital12-11-2023 History of Present illness Narrative* Darshan Abarca MD - 10/19/2023 2:54 PM EST Images from the original note were not included. Darshan Abarca MD Interventional Cardiology [address] [place] [address] Chief Complaint Patient presents with: Established Patient Follow-Up HISTORY OF PRESENT ILLNESS: Ms. Burciaga is a 78 year old female seen in my office today for assessment and management patient hashypertensive heart disease with atrial tachycardia is doing [...] times daily as needed. 30 tablet 2 soyse-H0-[id number]-R-L2-RULZ-D30 1 mg-25 mg-12.5 mg-1 mg tab Take [...] BP Position BP Site BP Cuff Size 10/19/231433 -- -- 150/86 77 Sitting Right Arm Large Adult Peak Flow Date and Time PF Resp 10/19/231433 -- 16 Last 2 Encounter Wt Readings: [...] to correct any errors. documented in this encounterMiami [facility]11-14-2023 History of Present illness Narrative* Kamla Garcia, RT(R) - 09/22/2023 1:20 PM EST Radiology Service Progress Note DATE OF SERVICE: [...] creatinine assay has traceable calibration to isotope dilution- mass spectrometry. Refer to KDIGO guidelines for clinical interpretation. In patients with unstable renal function, e.g. those with acute kidney injury, the eGFRmay not accurately reflect actual GFR. eGFR- Date Value Ref Range Status 10/16/2021 >60 Final P.O.C.T. RESULTS: POC done: Yes, See Lab Tab September 22, 2023 TREATMENT: N/A PERIPHERAL IV DATA: Ambulatory: A peripheral IV was started in the Left antecubital site with a Angio cath: 22 gauge. RADIOLOGY DEPARTMENT: CT; Exam(s) Completed: Abdomen/Pelvis SIGNATURE: RT Melanie(R) PATIENT NAME: Terri Burciaga DATE: September 22, 2023 TIME: 3:57 PM documented in this encounterMiami Valley Hospital10-31-2023 History of Present illness Narrative* Luc Faustin PA-C - 09/08/2023 3:00 PM EDT 77 year old female with c/o concerns [...] times daily as needed. 30 tablet 2 hxktj-E7-Z9-P95-J-B1-RTKI-E65 1 mg-25 mg-12.5 mg-1 mg tab Take [...] exercise Luc Faustin PA-C documented in this encounterMiami Valley Hospital10-20-2023 Miscellaneous Notes* Telephone Encounter - Kamla Kerr LPN - 08/28/2023 1:57 PM EDT Called patient. Verified name and date of . Informed- verbalizes understanding. Kamla Kerr LPN * Telephone Encounter - Evan Johnson PA-C - 08/28/2023 12:39 PM EDT Please notify patient that his Urine Cytology showed Atypical Cells these are NOT cancer cells, but does require investigation with the full workup to be completed Urine Culture - Negative RANDY Landin MT, PA-C documented in this encounterMiami Valley Hospital10-17-2023 Instructions* Patient Instructions* Evan Johnson PA-C - 08/25/2023 5:[address] Urogram to be scheduled at [facility] Cystoscopy to scheduled at [facility] - Urology ( they will contact patient # [phone] Urine Culture -- Pending Urine Cytology- - Pending After hematuria work-up if negative we will discuss Atrophic Vaginitis therapy with Topical Estrogen cream documented in this encounterMiami Valley Hospital10-17-2023 History of Present illness Narrative* Evan Johnson PA-C - 08/25/2023 4:30 PM EDT Images from the original note were not included. [facility] ESTABLISHED PATIENT CLINIC NOTE [...] by mouth three times daily as needed. gttzr-B2-V3-H41-K-C9-WFVW-Z95 1 mg-25 mg-12.5 mg-1 mg tab Take [...] C (98 F), temperature source Temporal, resp. rate14, height 149.9 cm (4' 11), weight 87 [...] R31.29 CT Urogram to be scheduled at [facility] Cystoscopy to scheduled at [facility] - Urology ( they will contact patient # [phone] Urine Culture -- Pending Urine Cytology- - Pending After hematuria work-up if negative we will discuss Atrophic Vaginitis therapy with Topical Estrogen cream RANDY Landin MT, PA-C documented in this encounterMiami Valley Hospital10-11-2023 Miscellaneous Notes* Telephone Encounter - Sarthak Clemons RN - 08/19/2023 4:31 PM EDT Pt called and is notified of providers message and instructions. Pt voices understanding. Sarthak Clemons RN * Telephone Encounter - Angelika Castelan APRN.CNP - 08/19/2023 4:25 PM EDT If over the counter medications do not help she would need to be evaluated in the ER. Angelika Castelan APRN.CNP * Telephone Encounter - Dillan Martin LPN - 08/19/2023 4:18 PM EDT Phoned patient and went over results, notes from Angelika Podlogar RENTAL CLERK [employer] EQUIPMENT with understanding. Patient said what am I to do for the pain, tylenol does not touch it. Patient said right upper quadrant pain, she can not take a deep breath. Please advise * Telephone Encounter - Dillan Martin LPN - 08/19/2023 4:15 PM EDT ----- Message from Angelika Castelan APRN.INTELLIGENCE CHIEF sent at 08/19/2023 4:02 PM EDT ----- Please let patient know shows gallstones with no inflammation. Small live cyst which needs no further imaging. Angelika Castelan APRN.INTELLIGENCE CHIEF documented in this encounterMiami Valley Hospital10-11-2023 History of Present illness Narrative* Samreen Feliciano RDMS - 08/19/2023 11:30 AM EDT Radiology Service Progress Note [...] 19, 2023 4:50 PM documented in this encounterMiami Valley Hospital10-10-2023 Miscellaneous Notes* Telephone Encounter - Sarthak Clemons RN - 08/18/2023 3:16 PM EDT Pt called and is notified of providers results and instructions. Pt voices understanding. Sarthak Clemons, RN * Telephone Encounter - Angelika Castelan APRN.CNP - 08/18/2023 2:07 PM EDT As we discussed yesterday her UA shows blood and the protein level is elevated which can be seen inuncontrolled blood pressure. She should keep her appointment with urology to discuss in more detail Angelika Castelan APRN.CNP * Telephone Encounter - Tahira Damico RN - 08/18/2023 10:14 AM EDT Images from the original note were not included. Patient contacted and given provider's message below regarding recent lab results. Pt asking Angelika if can advise more specifically on her abnormal UA Dip? Thank you. COPIED: Result Notes Angelika Castelan APRN.CNP 08/18/2023 7:33 AM EDT Kidney function decreased but stable from previous ones- recommend low salt diet, stay well hydratewith water and avoid NSAID products. Inflammatory marker slightly elevated but better from previousones. CBC with diff normal Angelika Castelan APRN.CNP documented in this encounterMiami Valley Hospital10-09-2023 Instructions* Patient Instructions* Angelika Castelan APRN.CNP - 08/17/2023 11:55 AM EDT Continue bland diet If pain increase or you develop fevers or vomiting go to ER documented in this encounterMiami Valley Hospital10-09-2023 History of Present illness Narrative* Angelika Castelan APRN.CNP - 08/17/2023 11:43 AM EDT 08/17/2023 Patient presents with: Pain: Right side [...] by mouth three times daily as needed. nzrdc-S1-C5-Q00-P-L2-MBVY-[id number] 1 mg-25 mg-12.5 mg-1 mg tab Take [...] follow-up with urologist as discussed Angelika Castelan APRN.CNP Prescription instructions reviewed with patient as applicable. [...] which included preparing to see the patient, ksvc-pb-oaqg patient care, completing clinical documentation, obtaining and/or reviewing separately obtained history, performing a medically appropriate examination, counseling and educating the pat ient/family/caregiver, and ordering medications, tests, or procedures. documented in this encounterMiami Valley Hospital10-09-2023 History of Present illness Narrative* Angelika Castelan APRN.CNP - 08/17/2023 11:28 AM EDT Patient was late to appointment. Had to be changed to 1140 today Angelika Castelan APRN.CNP documented in this encounterMiami Valley Hospital09-25-2023 History of Present illness Narrative* Jacquie Evans MD - 08/03/2023 2:45 PM EDT Images from the original note were not included. . [facility] Note Patient name: Terri Burciaga PCP: Andre Santana MD CC: Abnormal chest CT HPI: Terri Burciaga 77 year old female former 23-kkdw-tsmy smoker, quitting 40 years ago with PMH [...] DATE OF EXAM: Jul 03 2023 2:08PM [facility] 0541 - CT CHEST WO IVCON / [...] imaged thyroid gland is normal. No lymphadenopathy inthe supraclavicular, axillary, mediastinal, or hilar regions. Heart, [...] by mouth three times daily as needed. ntppx-K3-S2-V49-W-[id number] 1 mg-25 mg-12.5 mg-1 mg tab Take [...] to dry secretions. Jacquie Evans MD [facility] documented in this encounterMiami Valley Hospital09-12-2023 Miscellaneous Notes* Telephone Encounter - Sandy Hernandez LPN - 07/21/2023 9:58 AM EDT Patient notified. Patient states she was contacted yesterday letting her know she needed to see urology due to evidence of blood in urine (??). She has an appointment with urology on 08/11. States is still having minor issue. Would like to speak to you when you get the chance. Please review and advise. * Telephone Encounter - Sandy Hernandez LPN - 07/21/2023 9:56 AM EDT ----- Message from Luc Faustin PA-C sent at 07/21/2023 8:43 AM EDT ----- Please let her know growth on culture was mixed from skin contamination and too low to indicate UTI. Let me know if still having problems. Thanks, Isreal Faustin PA-C documented in this encounterMiami Valley Hospital09-07-2023 History of Present illness Narrative* Luc Faustin PA-C - 07/16/2023 4:40 PM EDT 77 year old female with c/o f/u [...] opacity with adjacent parenchymal retraction is smaller insize compared to prior examinations and most likely [...] Lymph 1.00 - 4.00 k/uL 1.84 1.61 [place]% % 11.8 10.7 Abs [place] <0.87 k/uL 0.70 0.66 Eosin% % 1.5 [...] times daily as needed. 30 tablet 2 jribe-L2-V6-T37-S-E8-[id number] 1 mg-25 mg-12.5 mg-1 mg tab Take [...] Recheck cortney Faustin PA-C documented in this encounterMiami Valley Hospital09-01-2023 Miscellaneous Notes* Telephone Encounter - Teri Torres - 07/10/2023 1:53 PM EDT Patient informed. She didn't really understand verbiage used. She requested to schedule an appointment to come in and discuss. Scheduled with Isreal Alfaro. 07/16/23. Teri Torres * Telephone Encounter - Luc Faustin PA-C - 07/10/2023 1:33 PM EDT Please let her know Dr. Evans reviewed CT, thinks it may be atelectasis. Recommends recheck CT chest in 3-4 months. Please schedule in 3-4 months: Telephone on 07/09/23 CT CHEST WO Isreal Asher PA-C * Telephone Encounter - Luc Faustin PA-C - 07/09/2023 6:53 AM EDT Please advise CT shows 2 new opacified areas where her surgery took place, these could be a loculated fluid but she also has multiple lymph nodes throughout the chest. These could be reactive. I am going to send this note to Dr. Evans and have her review the CT for further recommendations. Thanks, Isreal Faustin PA-C documented in this encounterMiami Valley Hospital08-25-2023 History of Present illness Narrative* Kamla Garcia RT(R) - 07/03/2023 1:40 PM EDT Radiology Service Progress Note PATIENT [...] 03, 2023 2:56 PM documented in this encounterMiami Valley Hospital08-22-2023 Miscellaneous Notes* Telephone Encounter - Juliann Dietrich Ma - 06/30/2023 11:34 AM EDT Patient was made aware of the results. Patient verbalizes understanding. Juliann Dietrich Ma * Telephone Encounter - Juliann Dietrich Ma - 06/30/2023 11:25 AM EDT ----- Message from Luc Faustin PA-C sent at 06/30/2023 11:08 AM EDT ----- Please let her know renal function still looks dry, likely secondary to HCTZ BP was up last time so I would not change at this time. Will review next visit. Try to push fluids. Thanks, Isreal Faustin PA-C documented in this encounterMiami Valley Hospital08-11-2023 Miscellaneous Notes* Telephone Encounter - Valorie Castañeda Ma - 06/19/2023 10:18 AM EDT Pt called and notified of message. Discussed [...] labs prior to her BP check as s cheduled. Pt understood. Valoire Castañeda Ma * Telephone Encounter - Valorie Castañeda Ma - 06/19/2023 10:14 AM EDT ----- Message from Angelika Castelan APRN.CNP sent at 06/19/2023 6:27 AM EDT ----- Thyroid hormone on normal limits. Angelika Castelan APRN.CNP documented in this encounterMiami Valley Hospital08-09-2023 History of Present illness Narrative* Angelika Castelan APRN.CNP - 06/17/2023 12:55 PM EDT 06/17/2023 Patient presents with: Palpitations: Started this morning. Stopped taking HCTZ on the along K+. SUBJECTIVE: This is a 77 [...] by mouth three times daily as needed. [id number]-K5-J7-M14-H-[id number] 1 mg-25 mg-12.5 mg-1 mg tab Take [...] discussed, verbalizes understanding - if persists see veneer cutter sooner, to ER with red flag symptoms [...] CLONIDINE HCL 0.1 MG TABLET Angelika Castelan APRN.INTELLIGENCE CHIEF Prescription instructions reviewed with patient as applicable. [...] which included preparing to see the patient, hrvz-re-zogf patient care, completing clinical documentation, obtaining and/or reviewing separately obtained history, performing a medically appropriate examination, counseling and educating the pat ient/family/caregiver, and ordering medications, tests, or procedures. documented in this encounterMiami Valley Hospital08-01-2023 Miscellaneous Notes* Telephone Encounter - Tahira Damcio RN - 06/09/2023 9:56 AM EDT Phoned patient and gave provider's message below and patient verbalized understanding. Pt agreeable. Scheduled BP recheck for 07/07/23 as advised. Chloe Damico RN * Telephone Encounter - Luc Faustin PA-C - 06/09/2023 8:12 AM EDT Please advise a1c is stable in good [...] Thanks, Isreal Faustin PA-C documented in this encounterMiami Valley Hospital07-31-2023 History of Present illness Narrative* Latoya Kat RT(R) - 06/08/2023 3:20 PM EDT Radiology Service Progress Note PATIENT [...] 08, 2023 3:10 PM documented in this encounterMiami Valley Hospital03-09-2023 Miscellaneous Notes* Telephone Encounter - Jacquie Wren Ma - 01/15/2023 10:07 AM EST Patient was notified Jacquie Wren Ma * Telephone Encounter - Andre Santana MD - 01/15/2023 9:58 AM EST Let her know her mammogram was ok. documented in this encounterMiami Valley Hospital03-09-2023 Miscellaneous Notes* Letter - Mammography Coordinator - 01/15/2023 8:58 AM EST January 16, 2023 PID: [id number] Terri Burciaga [address] [place] [address] Dear Ms. Burciaga, We are pleased to [...] report will [facility] part of [facility] permanent medical record and are available for your continuing care. Thank you for allowing us to help in meeting your health care needs. Sincerely, Dr. Abarca Interpreting Radiologist [facility] (Normal over 40) documented in this encounterMiami Valley Hospital03-09-2023 Miscellaneous Notes* Telephone Encounter - Raquel Davis MA - 01/15/2023 8:38 AM EST Patient has been notified of message below and verbalized understanding. Patient will call back if she decides to do physical therapy. Raquel Davis MA * Telephone Encounter - Raquel Davis MA - 01/14/2023 3:13 PM EST Attempted to reach patient. No answer. Unable to leave a message, mail box is full. Will try again later. Raquel Davis MA * Telephone Encounter - Raquel Davis MA - 01/14/2023 3:12 PM EST ----- Message from Maren Rhodes MD sent at 01/14/2023 3:09 PM EST ----- Hi team! Can you please call this patient to let her know that her x-ray did not show any fractures! If she is still having pain we can send her to physical therapy, I am happy to place an order anytime. documented in this encounterMiami Valley Hospital03-02-2023 Miscellaneous Notes* Telephone Encounter - Raquel Davis MA - 01/08/2023 10:27 AM EST Patient has been notified of message below and verbalized understanding. Raquel Davis MA * Telephone Encounter - Maren Rhodes MD - 01/08/2023 10:17 AM EST Please call the patient to let her [...] movement of the bones. documented in this encounterMiami Valley Hospital03-01-2023 History of Present illness Narrative* Latoya Kat, RT(R) - 01/07/2023 2:50 PM EST Radiology Service Progress Note PATIENT [...] 07, 2023 2:48 PM documented in this encounterMiami Valley Hospital01-20-2023 History of Present illness Narrative* Maren Rhodes MD - 11/28/2022 3:12 PM EST Images from the original note were not included. Rheumatology CONSULTATION Date of Service: 11/28/2022 Patient: Terri Burciaga Medical Record: [id number] Primary Care Physician: Andre Santana MD Last Rheumatology visit: [facility] Referring Provider: Luc Faustin [address] [facility] [address] Chief Complaint: Patient presents with: New Patient Sjogren's Disease Terri Burciaga is here today at request of AMAN Faustin specifically for consultation of my opinion in regards to the chief complaint listed above. Correspondence will be shared today via the [employer] electronic health record or through regular mail, where applicable. HISTORY OF PRESENT ILLNESS Terri Burciaga is a 77 year old White female with a history of CKD, FRIEDA, GERD, hypertension, atrialtachycardia, low back pain with sciatica, osteopenia who [...] TSH. She was sent to rheumatology for evaluationof Sjogren's. No further work-up was done into her inflammatory markers. Today she presents to clinic alone. She states that she has a long history of back pain with right-sided sciatica. She has been doing physical therapy with minimal improvement. Unfortunately she tooka fall a few months ago and landed [...] to TMJ. She gets intermittent sharp left anglican pain. She has no visual changes, tongue claudication. She has dry eye for the past 6 to 7 years using uyws-hxq-wablska eyedrops a few times a day. She [...] No MEDICATIONS Current Outpatient Medications Medication Sig sjmnl-N5-[id number]-E-[id number] 1 mg-25 mg-12.5 mg-1 mg tab Take [...] 4, Left PIP 5, Right PIP 5, LeftKnee, Left Ankle, Right Ankle, Left Tarsometatarsal, Right Tarsometatarsal Joint Exam Data (across time) Joint Exam 11/28/2022 Total Tender 4 Total Swollen 0 LABS Reviewed in [facility], notable for: 06/2022: [place] 1: 160 SSA [...] W/CONFIRMATION <30 IU/mL - - - <12 VEGETABLE FARMWORKER ANTIBODY QUAL Negative - - - Negative SSA ANTIBODY QUAL Negative - - - Positive(A) KELY-1 ANTIBODY, IGG <1.0 AI - - - <0.2 KELY 1 ANTIBODY QUAL Negative - - - Negative RIBOSOMAL VEGETABLE FARMWORKER AB <1.0 AI - - - <0.2 RIBOSOMAL VEGETABLE FARMWORKER QUAL Negative - - - Negative ANTI-SSA [...] a history of CKD, FRIEDA, GERD, hypertension, atrialtachycardia, low back pain with sciatica, osteopenia who [...] hydroxychloroquine for nonspecific symptoms such as brain fog,fatigue, cognitive dysfunction in the setting of Sjogren's. [...] which included preparing to see the patient, iesi-wt-xpzr patient care, completing clinical documentation, obtaining and/or reviewing separately obtained history, performing a medically appropriate examination, counseling and educating the pat ient/family/caregiver, and ordering medications, tests, or procedures. This note was partially generated with the assistance of [employer] voice recognition software. An attempt was made to correct any dictation errors however there may be some incorrect words, spellings, and punctuation. Maren Rhodes MD Rheumatology Date: November 28, 2022 Time: 3:13 PM documented in this encounterMiami Valley Hospital01-20-2023 Instructions* Patient Instructions* Maren Rhodes MD - 11/28/2022 3:01 PM EST Hip x ray anytime Bone density anytime Please get mammogram Talk to your eye doctor about if you would benefit from Restasis eye drops now that you have Sjogren's Follow up 6 months BONE MINERAL DENSITY PATIENT INSTRUCTIONS Bone mineral density testing measures the amount of calcium in certain parts of your bones. This information determines how strong your bones are. The test is used to detect osteoporosis, a disease in which the bone's mineral content and density are low, increasing a person's risk of fractures. Thelumbar spine (lower back) and the hip are [...] your usual activities immediately. documented in this encounterMiami Valley Hospital12-16-2022 Miscellaneous Notes* Telephone Encounter - Don Borges - 10/24/2022 8:54 AM EST Sent in consult to physical therapy, confirmation number is [id number] documented in this encounterMiami Valley Hospital12-15-2022 NoteHNO ID: [id number] Author: Daisha Junior APRN.INTELLIGENCE CHIEF Service: ? Author Type: Nurse Practitioner Type: Progress Notes Filed: 10/23/2022 2:58 PM Note Text: [facility] [place] [facility] Today's Date: 10/23/2022 Last Visit: N/A [...] kidneys with small renal cysts visible on nursing program director imaging. Tiny hepatic hyperintensities most likely small cysts or hemangiomas, too small to characterize on nursing program director images. Alignment: Alignment is anatomic. Bone marrow [...] the lumbar spine. (more content not included)... [facility]12-15-2022 NoteHNO ID: [id number] Author: Lanny Rizvi MA Service: ? Author Type: Surgical Aide Type: Progress Notes Filed: 10/23/2022 2:58 PM [...] disturbance and suicidal ideas. The patient is nervous/anxious.[facility]12-15-2022 Instructions* Patient Instructions* Daisha Junior APRN.INTELLIGENCE CHIEF - 10/23/2022 2:58 PM EST Activity as [...] the time of check in. If no over the road driver is obtained, your procedure will be cancelled. Please let us know if you have any allergies to contrast material (dyes used for medical Studies), medications, seafood, shellfish, or latex, we may need to modify your procedure. Please call [phone] to cancel your appointment if you have [...] procedure or your pain control, please call [facility] at [phone] When to call [facility]: If you notice severe pain lasting more than 2-3 days Swelling or redness near or at the injection site Fever/chills Headache that is severe, light sensitive, positional, and accompanied by nausea and/or vomiting documented in [facility] encounter[facility]12[facility] History of Present illness Narrative* Daisha Junior APRN.CNP - 10/23/2022 2:34 PM EST [facility] [place] [facility] Today's Date: 10/23/2022 Last Visit: N/A Name: Terri Burciaga : 1945 Purpose: New Patient Consultation Chief complaint: Low Back Pain Interval History: N/A Initial HPI: (Obtained on 10/23/2022) Terri Burciaga is a 77 year old year-old female; who presentshaving been referred by Luc Faustin, for evaluation [...] DATE OF EXAM: Sep 05 2022 8:43AM JENNY 0303 - MRI LUMBAR SPINE WO IVCON [...] kidneys with small renal cysts visible on nursing program director imaging. Tiny hepatic hyperintensities most likely small cysts or hemangiomas, too small to characterize on nursing program director images. Alignment: Alignment is anatomic. Bone marrow [...] and assume there are 5 lumbar-type vertebrae. Consumer Credit Counselor: [facility] Transcribe Date/Time: Sep 05 2022 8:57A Dictated by : PRABHJOT MORROW MD This examination was interpreted and the report reviewed and electronically signed by: PRABHJOT MORROW MD on Sep 05 2022 9:00AM EST XR Lumbar Spine 08/26/22: FINDINGS: There are five [id number] lumbar vertebrae. No fracture or subluxations are [...] All prescriptions have been APPROPRIATELY filled. No suspiciousactivity was identified. 10/23/2022 by Daisha Junior APRN.INTELLIGENCE CHIEF Last Drug screen: Not Applicable Risk Assessment: [...] stenosis, lumbar region with neurogenic claudication (primary encounterdiagnosis) (M54.31) Sciatica, right side (G89.29) Other chronic [...] 10/23/2022 Completed and reviewed, low risk Functional Latter Day: Physical Therapy (Aquatic) Additional Studies: None Referrals: [...] decision making from today's date. Daisha Junior APRN.INTELLIGENCE CHIEF Pain Management [facility] * Lanny Rizvi MA - 10/23/2022 2:11 PM EST Review of Systems Constitutional: Negative for activity change, chills, fever and unexpected weight change. Gastrointestinal: Negative for bowel retention or incontinence Genitourinary: Negative for difficulty urinating. Negative for bladder retention or incontinence Musculoskeletal: Positive for arthralgias, back pain, gait problem and myalgias. Negative for jointswelling, neck pain and neck stiffness. Neurological: Negative for weakness, numbness and headaches. Psychiatric/Behavioral: Positive for dysphoric mood. Negative for sleep disturbance and suicidal ideas. The patient is nervous/anxious. documented in this encounterMiami [facility]12-13-2022 History of Present illness Narrative* Juliann Guido PT - 10/21/2022 4:22 PM EST Episode Visit Count: 11 Therapist That Will [...] drives alot and gets in and out ofcar it bothers her more Pain: Pain Pain [...] stool and gentle stretch across body with lefthand . 10 sec hold 5 sets 5-6 [...] 30 Juliann Guido PT documented in this encounterMiami [facility]12-09-2022 History of Present illness Narrative* Juliann Guido, PT - 10/17/2022 2:52 PM EST Episode Visit Count: 10 Therapist That Will [...] increase again. Pt states that the previous 2days her pain has been a 5/10. Pt did a lot of walking yesterday and may be why she's a little flared up today. Pt states that the towel roll in the car seems to be helping quite a bit. Pt would liketo have trigger point massage done to R [...] stool and gentle stretch across body with lefthand . 10 sec hold 5 sets 5-6 [...] Head PTA/Juliann Guido PT documented in this encounterMiami [facility]12-02-2022 History of Present illness Narrative* Juliann Guido PT - 10/10/2022 12:00 PM EST Episode Visit Count: 9 Therapist That Will [...] stool and gentle stretch across body with lefthand . 10 sec hold 2 sets 5-6 [...] and assessment of patient's response to intervention. Self-Senior Living Management: 1: discussed with trial of towel roll for mumbar support with foot on stool for sitting with reliefof pressure feeling in buttock Skilled Intervention: Skilled [...] (timed/untimed): Juliann Guido PT documented in this encounterMiami [facility]11-29-2022 History of Present illness Narrative* Juliann Guido PT - 10/07/2022 8:19 AM EST Episode Visit Count: 8 Therapist That Will [...] stool and gentle stretch across body with lefthand . 10 sec hold x3 (reviewed verbally) [...] 15 Juliann Guido PT documented in this encounterMiami [facility]11-22-2022 History of Present illness Narrative* Juliann Guido PT - 09/30/2022 4:20 PM EST Episode Visit Count: 7 Therapist That Will Accept/Oversee The Plan Of Care: Juliann Guido PT Start of Care Date: 08/27/22 Onset Date: 08/13/22 Plan of Care Certification Date: 09/30/22 Next Certification Due Date: 11/11/22 Patient Identified by Name and Date of : Yes REHABILITATION AND SPORTS THERAPY PHYSICAL THERAPY PROGRESS REPORT PLAN OF CARE UPDATE: Assessment: Terri Burciaag demonstrates minimal improvement in standing, walking, and physical activities. She hasprogressed toward goals. Patient continues to present with impairments in ADL's, independence in exercise, overall function, range of motion, strength , and symptom management that inter fere with . Current prognosis is Fair due to: limited tolerance to activity within-session changes.She will benefit from continued skilled therapy services to meet the updated goals for this plan ofcare as noted below. Goals for Episode of [...] Patient to be seen for Therapeutic exercise (38545);Neuromuscular re-education (57063);Manual therapy (61838);Therapeutic activities (06559);Self-jail management (55884);Gait Training (77341);Patient/Family/Caregiver Education PLAN FOR NEXT VISIT: assess reponse of piriformis mm stretch. Continue manual traction SUBJECTIVE: Patient Reason for Visit: Pt notes that she continues to have terrible pain from hip/ back and leg to outside of foot to 5th toe. Notes that she felt she was doing better until performinghooklying rotations and SKC exs. Reports some centralization [...] stool and gentle stretch across body with lefthand . 10 sec hold x3 3: education [...] 8 Juliann Guido PT documented in this encounterMiami [facility] Hospital11-17-2022 Miscellaneous Notes* Telephone Encounter - Valorie Castañeda Ma - 09/25/2022 3:04 PM EST Scheduled 10/23/22. Valorie Castañeda Ma * Telephone Encounter - Luc Faustin PA-C - 08/28/2022 9:01 AM EDT Telephone on 08/27/22 CONSULT TO PAIN MGT ThanksIsreal PA-C * Telephone Encounter - Valorie Castañeda Ma - 08/27/2022 10:44 AM EDT Call to pt and notified her of response below. Pt agreeable to pain mgmt. Please place order, then route to pain mgmt to contact pt. Pt notified that she is also able to go outside [facility] if wanting. Valorie Castañeda Ma * Telephone Encounter - Valorie Castañeda Ma - 08/27/2022 10:42 AM EDT ----- Message from Luc Faustin PA-C sent at 08/27/2022 9:33 AM EDT ----- Please advise x-ray shows some degenerative changes, she has large osteophytes/spurs which are likely causing irritation. If interested, pain management might be able to help and I can place a consult. Let me know. Thanks, Isreal Faustin PA-C documented in this encounterMiami Valley Hospital11-15-2022 History of Present illness Narrative* Ivan Alvarez Jr., MD - 09/23/2022 2:14 PM EST NEW PATIENT HISTORY AND PHYSICAL EXAM PATIENT [...] Date Value 09/09/2022 Negative 07/26/2021 Negative Specific [place], Ur (no units) Date Value 09/09/2022 1.005 [...] for pain for up to 60 days. [id number] 1 mg-25 mg-12.5 mg-1 mg tab Take [...] appearing, alert, in no acute distress, and well- hydrated, well nourished Skin: Skin color, texture, turgor normal, no suspicious rashes or lesions Respiratory:+ effort Cardiovascular: Not examined GI: Normal abdominal exam, Abdomen soft, non-tender. No masses, organomegaly Musculoskeletal: normal ROM Neuro: No gross neurologic defecits Genitourinary: not examned ASSESSMENT: (R39.14) Feeling of incomplete bladder emptying PLAN: Reassurance Fu prn Ivan Alvarez Jr, MD documented in this encounterMiami Valley Hospital11-15-2022 Nurse Note* Sarah Miranda LPN - 09/23/2022 1:08 PM EST Bladder scan obtained 0 ml of urine documented in this encounterMiami Valley Hospital11-09-2022 History of Present illness Narrative* Samreen Powell, PT - 09/17/2022 4:26 PM EST Episode Visit Count: 5 Therapist That Will Accept/Oversee The Plan Of Care: Samreen Powell Start of Care Date: 08/27/22 Onset Date: 08/13/22 Plan of Care Certification Date: 08/27/22 Next Certification Due Date: 10/08/22 REHABILITATION AND SPORTS THERAPY PHYSICAL THERAPY TREATMENT NOTE ASSESSMENT: Terri Burciaga tolerated the session with decreased symptoms. She reports no LBP or hippain following manual traction. The patient will continue [...] and hips at 90 degrees x 10 minutes(Pain decreased to 8/10) Skilled Intervention: Manual skills to improve joint mobility, ROM, and decrease pain. Utilized anatomy knowledge of the therapist, and assessment of patient's response to intervention. Billing Therapeutic Exercise Treatment Minutes: 30 Manual TherapyTreatment Minutes: 10 Total Treatment Time Minutes (timed/untimed): 40 Samreen Powell PT documented in this encounterMiami [facility] Hospital11-07-2022 Instructions* Patient Instructions* Luc Faustin PA-C - 09/15/2022 2:53 PM EST [...] cause mild side effects with dry mouth andoccasionally difficulty with constipation, urination, or lightheadedness. They are generally safe in . If you are prescribed a cortisone cream, use only the smallest amount necessary to provide a thin layer over the affected skin. while topical cortisone is generally very safe, prolonged or repetitiveuse may cause permanent changes in skin and osteoporosis in underlying bones. They should be used for short periods of no more than 2-3 weeks, and then at least a week break. Prolonged use in infantsor small children may actually affect adrenal dysfunction and cause growth problems. Safety in depends on the strength and duration of treatment. If the rash is not improving in 4-5 days, worsening, fever or other concerning symptoms arise, callback. Call sooner if it is getting worse. documented in this encounterMiami Valley Hospital11-07-2022 History of Present illness Narrative* Luc Faustin PA-C - 09/15/2022 2:38 PM EST 76 year old female with c/o here [...] up to 60 days. 120 tablet 1 [id number] 1 mg-25 mg-12.5 mg-1 mg tab Take [...] distress. Alert and oriented all spheres. Normal affectand cognition. Speech normal. No deficits to learning [...] TABLET Luc Faustin PA-C documented in this encounterMiami [facility] Hospital11-04-2022 History of Present illness Narrative* Samreen Powell, PT - 09/12/2022 3:30 PM EDT Episode Visit Count: 3 Therapist That Will Accept/Oversee The Plan Of Care: Samreen Powell Start of Care Date: 08/27/22 Onset Date: 08/13/22 Plan of Care Certification Date: 08/27/22 Next Certification Due Date: 10/08/22 Patient Identified by Name and Date of : Yes REHABILITATION AND SPORTS THERAPY PHYSICAL THERAPY TREATMENT NOTE ASSESSMENT: Terri Greg Burciaga tolerated the session with decreased symptoms. She demonstrated improvements in endurance with exercises. The patient will continue to benefit from ongoing skilled physicaltherapy to progress toward set goals. PLAN FOR [...] her upper back and it hurts around herribs. Pt had decreased LBP for approximately 2 [...] and hips at 90 degrees x 15 minutes(Pain decreased to 8/10) Skilled Intervention: Manual skills to improve joint mobility, ROM, and decrease pain. Utilized anatomy knowledge of the therapist, and assessment of patient's response to intervention. Billing Therapeutic Exercise Treatment Minutes: 32 Manual TherapyTreatment Minutes: 12 Total Treatment Time Minutes (timed/untimed): 44 Holly Head, EARRING MAKER Samreen Powell PT documented in this encounterMiami [facility] Hospital11-01-2022 History of Present illness Narrative* Samreen Powell PT - 09/09/2022 3:22 PM EDT Episode Visit Count: 2 Therapist That Will [...] difficulty with TA activation with BLE alt marches. The patient will continue to benefit from ongoing skilled physical therapy to progress toward set goals. PLAN FOR NEXT VISIT: Asses response to manual lumbar traction SUBJECTIVE: Patient Reason for Visit: Pt reports finding out yesterday that she has 2 ruptured discs L5-S1. Pt reports some numbness and tingling down RLE. Pt reports having pain all the way down theback of her R leg. Pt presents with [...] B 3: Hooklying TA activation with LE march x 5 B (d/c due to increase [...] and hips at 90 degrees x 15 minutes(Pain decreased to 8/10) Skilled Intervention: Manual skills to improve joint mobility, ROM, and decrease pain. Utilized anatomy knowledge of the therapist, and assessment of patient's response to intervention. Self-Senior Living Management: 1: *discussed and encourage pt to [...] 15 Total Treatment Time Minutes (timed/untimed): 45 EVGENY Wilks PT documented in this encounterMiami Valley Hospital10-31-2022 Miscellaneous Notes* Telephone Encounter - Jordy Henri WINTER - 09/08/2022 11:34 AM EDT TC to pt, notified of results/provider response. Pt states as long as she has Tramadol on board shewill be ok until pain mgmt appt in October. This nurse checked upcoming appt in October and it iswith Daisha Junior/Spine. Is this the correct appt for pt? Jordy Álvarez LPN * Telephone Encounter - Jordy Álvarez LPN - 09/08/2022 11:30 AM EDT Luc Faustin PA-C 6:50 PM Note Please advise she has L5-S12 disc herniation contacting S1 nerve roots. I would recommend pain management over surgery. She has appointment if she can get by in the interim. We could ask if possible to expedite appointment due to pain level please. ThanksIsreal PA-C * Telephone Encounter - Luc Faustin PA-C - 09/07/2022 6:32 PM EDT Please advise there were increased mild levels [...] and culture to be safe. Order placed. Thanks, Luc Faustin PA-C documented in this encounterMiami Valley Hospital10-30-2022 Miscellaneous Notes* Telephone Encounter - Luc Faustin PA-C - 09/07/2022 6:49 PM EDT Please advise she has L5-S12 disc herniation contacting S1 nerve roots. I would recommend pain management over surgery. She has appointment if she can get by in the interim. We could ask if possible to expedite appointment due to pain level please. Thanks, Isreal Faustin PA-C documented in this encounterMiami Valley Hospital10-28-2022 History of Present illness Narrative* Juliann Maya RT(R) - 09/05/2022 8:00 AM EDT Radiology Service Progress Note PATIENT [...] 05, 2022 8:22 AM documented in this encounterMiami Valley Hospital10-25-2022 History of Present illness Narrative* Luc Faustin PA-C - 09/02/2022 4:00 PM EDT 76 year old female with hx > [...] Current Outpatient Medications Medication Sig Dispense Refill [id number] 1 mg-25 mg-12.5 mg-1 mg tab Take [...] tramadol, only for severe pain, only of [id number] medications are insufficient. Patient can take both [...] return. Luc Faustin PA-C documented in this encounterMiami Valley Hospital10-24-2022 Miscellaneous Notes* Telephone Encounter - Patricia Motley Ma - 09/01/2022 2:07 PM EDT Last office visit: 08/11/22 F/u scheduled: 09/02/22 with Isreal Faustin Last refilled on: Tramadol #28 with 0 refill on 08/22/22 Patricia Motley Ma * Telephone Encounter - Catherine Meneses - 09/01/2022 1:36 PM EDT Patient has been identified by [...] notify patient. Catherine Meneses documented in this encounterMiami Valley Hospital10-21-2022 Miscellaneous Notes* Telephone Encounter - Jacquie Evans MD - 08/29/2022 4:06 PM EDT Spoke with patient regarding chest x-ray results. No major abnormality noted. Nothing on chest x-ray to explain her chest pain. documented in this encounterMiami Valley Hospital10-20-2022 History of Present illness Narrative* RT Dori(R) - 08/28/2022 3:45 PM EDT Radiology Service Progress Note PATIENT [...] 28, 2022 3:39 PM documented in this encounterMiami Valley Hospital10-19-2022 History of Present illness Narrative* Samreen Powell, PT - 08/27/2022 3:44 PM EDT Episode Visit Count: 1 Therapist That Will [...] Planned: 12 Planned Treatment Interventions: Therapeutic exercise (99722);Neuromuscular re- education (33425);Manual therapy (73325);Therapeutic activities (70957);Self- jail management (17003);Gait Training (70941);Patient/Family/Caregiver Education PLAN FOR NEXT VISIT: Request pelvic floor PT order. Consider manual traction to centralize low backradiating symptoms in the RLE. Patient demonstrates good [...] in the vaginal and rectal areas with transfersas well as bearing down. Denies numbness, tingling, and denies loss of bowel or bladder control. Patient Goals: reduce low back pain with work and ADLs Functional Limitations: rising from a chair;walking;standing;walking in the house;walking in the community;stair negotiation;driving;bed mobility;bowel function;bladder function;sleeping;bending Prior Level of Function: Independent without limitations Relevant History Preferred Language: [place] Home Environment Equipment Owned: IgeaShower Transportation: Drives independently using foot controls/hand controls Intake Information: Prescription present Previous Treatment: Heat ;Ice ;Pain meds Falls Interview: Fall without injury in the last year Red Flags Vertebral Fracture Red Flags: Female;Age >70 Vertebral Fracture Clinical Reasoning: Proceed with caution due to the above (1- 2) risk factors Abdominal Aortic Aneurysm Red Flags: [...] Since Onset: Worsening Pain is Worse Always: Sitting;Driving;Standing;Walking;Bending;Rising Pain is Better Always: Lying Sleeping Position: [...] sway increased;Consuelo decreased Education: Education Learning Preferences: Demonstration;Explanation;Performance;Printed Materials Barriers: Emotions Learning/educational needs: Home exercise program;Plan of Care;Posture Education Provided: Yes, see treatment interventions for education provided Education Provided To: Patient Education Mode/Type: Demonstration;Explanation/Discussion;Literature/Printed Materials;Performance TREATMENT: PT Treatment Interventions: Therapeutic Exercise;Self-Senior Living Management Evaluation Therapeutic Exercise: 1: *hook lying [...] and function . Patient education as noted. Self-Senior Living Management: 1: *discussed the role of lumbar [...] 45 Samreen Powell PT documented in this encounterMiami Valley Hospital10-19-2022 History of Past illness Narrative* Problem [...] issues 03/10/20082020 Overview: History: and lives in [place], [place]. Admitted 07/30/21, underwent elective left VATS wedge resection Assessment: Ready for discharge to home Plan: -Discuss needs with patient and collaborate with case management -Will continue to evaluate during hospital admission -Skilled needs after discharge: none Nonallopathic lesion of rib cage, not elsewhere classified 02/24/2008 02/12/2017 Essential hypertension, benign 10/15/2006 0 03/10/2008 documented as of this encounter (statuses as of 11/26/2022) [facility] of Past illness Narrative* Problem [...] issues 03/10/20082020 Overview: History: and lives in [place], [place]. Admitted 07/30/21, underwent elective left VATS wedge resection Assessment: Ready for discharge to home Plan: -Discuss needs with patient and collaborate with case management -Will continue to evaluate during hospital admission -Skilled needs after discharge: none Nonallopathic lesion of rib cage, not elsewhere classified 02/24/2008 02/12/2017 Essential hypertension, benign 10/15/2006 0 03/10/2008 documented as of this encounter (statuses as of 11/28/2022) [facility] of Past illness Narrative* Problem [...] issues 03/10/20082020 Overview: History: and lives in [place], [place]. Admitted 07/30/21, underwent elective left VATS wedge resection Assessment: Ready for discharge to home Plan: -Discuss needs with patient and collaborate with case management -Will continue to evaluate during hospital admission -Skilled needs after discharge: none Nonallopathic lesion of rib cage, not elsewhere classified 02/24/2008 02/12/2017 Essential hypertension, benign 10/15/2006 0 03/10/2008 documented as of this encounter (statuses as of 01/07/2023) [facility] of Past illness Narrative* Problem [...] issues 03/10/20082020 Overview: History: and lives in [place], [place]. Admitted 07/30/21, underwent elective left VATS wedge resection Assessment: Ready for discharge to home Plan: -Discuss needs with patient and collaborate with case management -Will continue to evaluate during hospital admission -Skilled needs after discharge: none Nonallopathic lesion of rib cage, not elsewhere classified 02/24/2008 02/12/2017 Essential hypertension, benign 10/15/2006 0 03/10/2008 documented as of this encounter (statuses as of 01/08/2023) [facility] of Past illness Narrative* Problem [...] issues 03/10/20082020 Overview: History: and lives in [place], [place]. Admitted 07/30/21, underwent elective left VATS wedge resection Assessment: Ready for discharge to home Plan: -Discuss needs with patient and collaborate with case management -Will continue to evaluate during hospital admission -Skilled needs after discharge: none Nonallopathic lesion of rib cage, not elsewhere classified 02/24/2008 02/12/2017 Essential hypertension, benign 10/15/2006 0 03/10/2008 documented as of this encounter (statuses as of 01/15/2023) [facility] Narrative* Problem [...] issues 03/10/20082020 Overview: History: and lives in [place], [place]. Admitted 07/30/21, underwent elective left VATS wedge resection Assessment: Ready for discharge to home Plan: -Discuss needs with patient and collaborate with case management -Will continue to evaluate during hospital admission -Skilled needs after discharge: none Nonallopathic lesion of rib cage, not elsewhere classified 02/24/2008 02/12/2017 Essential hypertension, benign 10/15/2006 0 03/10/2008 documented as of this encounter (statuses as of 01/17/2023) [facility] Narrative* Problem [...] issues 03/10/2008 Overview: History: and lives in [place], [place]. Admitted 07/30/21, underwent elective left VATS wedge resection Assessment: Ready for discharge to home Plan: -Discuss needs with patient and collaborate with case management -Will continue to evaluate during hospital admission -Skilled needs after discharge: none Nonallopathic lesion of rib cage, not elsewhere classified 02/24/2008 02/12/2017 Essential hypertension, benign 10/15/2006 03/10/2008 documented as of this encounter (statuses as of 06/09/2023) [facility] Narrative* Problem [...] issues 03/10/2008 Overview: History: and lives in [place], [place]. Admitted 07/30/21, underwent elective left VATS wedge resection Assessment: Ready for discharge to home Plan: -Discuss needs with patient and collaborate with case management -Will continue to evaluate during hospital admission -Skilled needs after discharge: none Nonallopathic lesion of rib cage, not elsewhere classified 02/24/2008 02/12/2017 Essential hypertension, benign 10/15/2006 03/10/2008 documented as of this encounter (statuses as of 06/17/2023) [facility] Past illness Narrative* Problem [...] issues 03/10/2008 Overview: History: and lives in [place], [place]. Admitted 07/30/21, underwent elective left VATS wedge resection Assessment: Ready for discharge to home Plan: -Discuss needs with patient and collaborate with case management -Will continue to evaluate during hospital admission -Skilled needs after discharge: none Nonallopathic lesion of rib cage, not elsewhere classified 02/24/2008 02/12/2017 Essential hypertension, benign 10/15/2006 03/10/2008 documented as of this encounter (statuses as of 06/19/2023) [facility] History of Past illness Narrative* Problem [...] issues 03/10/2008 Overview: History: and lives in [place], [place]. Admitted 07/30/21, underwent elective left VATS wedge resection Assessment: Ready for discharge to home Plan: -Discuss needs with patient and collaborate with case management -Will continue to evaluate during hospital admission -Skilled needs after discharge: none Nonallopathic lesion of rib cage, not elsewhere classified 02/24/2008 02/12/2017 Essential hypertension, benign 10/15/2006 03/10/2008 documented as of this encounter (statuses as of 06/30/2023) [facility] History of Past illness Narrative* Problem [...] issues 03/10/2008 Overview: History: and lives in [place], [place]. Admitted 07/30/21, underwent elective left VATS wedge resection Assessment: Ready for discharge to home Plan: -Discuss needs with patient and collaborate with case management -Will continue to evaluate during hospital admission -Skilled needs after discharge: none Nonallopathic lesion of rib cage, not elsewhere classified 02/24/2008 02/12/2017 Essential hypertension, benign 10/15/2006 03/10/2008 documented as of this encounter (statuses as of 07/10/2023) [facility] History of Past illness Narrative* Problem [...] issues 03/10/2008 Overview: History: and lives in [place], [place]. Admitted 07/30/21, underwent elective left VATS wedge resection Assessment: Ready for discharge to home Plan: -Discuss needs with patient and collaborate with case management -Will continue to evaluate during hospital admission -Skilled needs after discharge: none Nonallopathic lesion of rib cage, not elsewhere classified 02/24/2008 02/12/2017 Essential hypertension, benign 10/15/2006 03/10/2008 documented as of this encounter (statuses as of 07/17/2023) [facility] History of Past illness Narrative* Problem [...] issues 03/10/2008 Overview: History: and lives in [place], [place]. Admitted 07/30/21, underwent elective left VATS wedge resection Assessment: Ready for discharge to home Plan: -Discuss needs with patient and collaborate with case management -Will continue to evaluate during hospital admission -Skilled needs after discharge: none Nonallopathic lesion of rib cage, not elsewhere classified 02/24/2008 02/12/2017 Essential hypertension, benign 10/15/2006 03/10/2008 documented as of this encounter (statuses as of 08/04/2023) [facility] History of Past illness Narrative* Problem [...] issues 03/10/2008 Overview: History: and lives in [place], [place]. Admitted 07/30/21, underwent elective left VATS wedge resection Assessment: Ready for discharge to home Plan: -Discuss needs with patient and collaborate with case management -Will continue to evaluate during hospital admission -Skilled needs after discharge: none Nonallopathic lesion of rib cage, not elsewhere classified 02/24/2008 02/12/2017 Essential hypertension, benign 10/15/2006 03/10/2008 documented as of this encounter (statuses as of 08/18/2023) [facility] History of Past illness Narrative* Problem [...] issues 03/10/2008 Overview: History: and lives in [place], [place]. Admitted 07/30/21, underwent elective left VATS wedge resection Assessment: Ready for discharge to home Plan: -Discuss needs with patient and collaborate with case management -Will continue to evaluate during hospital admission -Skilled needs after discharge: none Nonallopathic lesion of rib cage, not elsewhere classified 02/24/2008 02/12/2017 Essential hypertension, benign 10/15/2006 03/10/2008 documented as of this encounter (statuses as of 08/18/2023) [facility] History of Past illness Narrative* Problem [...] issues 03/10/2008 Overview: History: and lives in [place], [place]. Admitted 07/30/21, underwent elective left VATS wedge resection Assessment: Ready for discharge to home Plan: -Discuss needs with patient and collaborate with case management -Will continue to evaluate during hospital admission -Skilled needs after discharge: none Nonallopathic lesion of rib cage, not elsewhere classified 02/24/2008 02/12/2017 Essential hypertension, benign 10/15/2006 03/10/2008 documented as of this encounter (statuses as of 08/19/2023) [facility] History of Past illness Narrative* Problem [...] issues 03/10/2008 Overview: History: and lives in [place], [place]. Admitted 07/30/21, underwent elective left VATS wedge resection Assessment: Ready for discharge to home Plan: -Discuss needs with patient and collaborate with case management -Will continue to evaluate during hospital admission -Skilled needs after discharge: none Nonallopathic lesion of rib cage, not elsewhere classified 02/24/2008 02/12/2017 Essential hypertension, benign 10/15/2006 03/10/2008 documented as of this encounter (statuses as of 08/20/2023) [facility] History of Past illness Narrative* Problem [...] issues 03/10/2008 Overview: History: and lives in [place], [place]. Admitted 07/30/21, underwent elective left VATS wedge resection Assessment: Ready for discharge to home Plan: -Discuss needs with patient and collaborate with case management -Will continue to evaluate during hospital admission -Skilled needs after discharge: none Nonallopathic lesion of rib cage, not elsewhere classified 02/24/2008 02/12/2017 Essential hypertension, benign 10/15/2006 03/10/2008 documented as of this encounter (statuses as of 08/26/2023) [facility] History of Past illness Narrative* Problem [...] issues 03/10/2008 Overview: History: and lives in [place], [place]. Admitted 07/30/21, underwent elective left VATS wedge resection Assessment: Ready for discharge to home Plan: -Discuss needs with patient and collaborate with case management -Will continue to evaluate during hospital admission -Skilled needs after discharge: none Nonallopathic lesion of rib cage, not elsewhere classified 02/24/2008 02/12/2017 Essential hypertension, benign 10/15/2006 03/10/2008 documented as of this encounter (statuses as of 08/26/2023) [facility] History of Past illness Narrative* Problem [...] issues 03/10/2008 Overview: History: and lives in [place], [place]. Admitted 07/30/21, underwent elective left VATS wedge resection Assessment: Ready for discharge to home Plan: -Discuss needs with patient and collaborate with case management -Will continue to evaluate during hospital admission -Skilled needs after discharge: none Nonallopathic lesion of rib cage, not elsewhere classified 02/24/2008 02/12/2017 Essential hypertension, benign 10/15/2006 03/10/2008 documented as of this encounter (statuses as of 08/28/2023) [facility] History of Past illness Narrative* Problem [...] issues 03/10/2008 Overview: History: and lives in [place], [place]. Admitted 07/30/21, underwent elective left VATS wedge resection Assessment: Ready for discharge to home Plan: -Discuss needs with patient and collaborate with case management -Will continue to evaluate during hospital admission -Skilled needs after discharge: none Nonallopathic lesion of rib cage, not elsewhere classified 02/24/2008 02/12/2017 Essential hypertension, benign 10/15/2006 03/10/2008 documented as of this encounter (statuses as of 09/10/2023) [facility] History of Past illness Narrative* Problem [...] issues 03/10/2008 Overview: History: and lives in [place], [place]. Admitted 07/30/21, underwent elective left VATS wedge resection Assessment: Ready for discharge to home Plan: -Discuss needs with patient and collaborate with case management -Will continue to evaluate during hospital admission -Skilled needs after discharge: none Nonallopathic lesion of rib cage, not elsewhere classified 02/24/2008 02/12/2017 Essential hypertension, benign 10/15/2006 03/10/2008 documented as of this encounter (statuses as of 09/10/2023) [facility] History of Past illness Narrative* Problem [...] issues 03/10/2008 Overview: History: and lives in [place], [place]. Admitted 07/30/21, underwent elective left VATS wedge resection Assessment: Ready for discharge to home Plan: -Discuss needs with patient and collaborate with case management -Will continue to evaluate during hospital admission -Skilled needs after discharge: none Nonallopathic lesion of rib cage, not elsewhere classified 02/24/2008 02/12/2017 Essential hypertension, benign 10/15/2006 03/10/2008 documented as of this encounter (statuses as of 09/10/2023) [facility] History of Past illness Narrative* Problem [...] issues 03/10/2008 Overview: History: and lives in [place], [place]. Admitted 07/30/21, underwent elective left VATS wedge resection Assessment: Ready for discharge to home Plan: -Discuss needs with patient and collaborate with case management -Will continue to evaluate during hospital admission -Skilled needs after discharge: none Nonallopathic lesion of rib cage, not elsewhere classified 02/24/2008 02/12/2017 Essential hypertension, benign 10/15/2006 03/10/2008 documented as of this encounter (statuses as of 09/10/2023) [facility] History of Past illness Narrative* Problem [...] issues 03/10/2008 Overview: History: and lives in [place], [place]. Admitted 07/30/21, underwent elective left VATS wedge resection Assessment: Ready for discharge to home Plan: -Discuss needs with patient and collaborate with case management -Will continue to evaluate during hospital admission -Skilled needs after discharge: none Nonallopathic lesion of rib cage, not elsewhere classified 02/24/2008 02/12/2017 Essential hypertension, benign 10/15/2006 03/10/2008 documented as of this encounter (statuses as of 09/23/2023) [facility] History of Past illness Narrative* Problem [...] issues 03/10/2008 Overview: History: and lives in [place], [place]. Admitted 07/30/21, underwent elective left VATS wedge resection Assessment: Ready for discharge to home Plan: -Discuss needs with patient and collaborate with case management -Will continue to evaluate during hospital admission -Skilled needs after discharge: none Nonallopathic lesion of rib cage, not elsewhere classified 02/24/2008 02/12/2017 Essential hypertension, benign 10/15/2006 03/10/2008 documented as of this encounter (statuses as of 10/20/2023) [facility] History of Past illness Narrative* Problem [...] issues 03/10/2008 Overview: History: and lives in [place], [place]. Admitted 07/30/21, underwent elective left VATS wedge resection Assessment: Ready for discharge to home Plan: -Discuss needs with patient and collaborate with case management -Will continue to evaluate during hospital admission -Skilled needs after discharge: none Nonallopathic lesion of rib cage, not elsewhere classified 02/24/2008 02/12/2017 Essential hypertension, benign 10/15/2006 03/10/2008 documented as of this encounter (statuses as of 11/08/2023) [facility] History of Past illness Narrative* Problem [...] issues 03/10/2008 Overview: History: and lives in [place], [place]. Admitted 07/30/21, underwent elective left VATS wedge resection Assessment: Ready for discharge to home Plan: -Discuss needs with patient and collaborate with case management -Will continue to evaluate during hospital admission -Skilled needs after discharge: none Nonallopathic lesion of rib cage, not elsewhere classified 02/24/2008 02/12/2017 Essential hypertension, benign 10/15/2006 03/10/2008 documented as of this encounter (statuses as of 12/11/2023) [facility] History of Past illness Narrative* Problem [...] issues 03/10/2008 Overview: History: and lives in [place], [place]. Admitted 07/30/21, underwent elective left VATS wedge resection Assessment: Ready for discharge to home Plan: -Discuss needs with patient and collaborate with case management -Will continue to evaluate during hospital admission -Skilled needs after discharge: none Nonallopathic lesion of rib cage, not elsewhere classified 02/24/2008 02/12/2017 Essential hypertension, benign 10/15/2006 03/10/2008 documented as of this encounter (statuses as of 01/21/2024) [facility] History of Past illness Narrative* Problem [...] issues 03/10/2008 Overview: History: and lives in [place], [place]. Admitted 07/30/21, underwent elective left VATS wedge resection Assessment: Ready for discharge to home Plan: -Discuss needs with patient and collaborate with case management -Will continue to evaluate during hospital admission -Skilled needs after discharge: none Nonallopathic lesion of rib cage, not elsewhere classified 02/24/2008 02/12/2017 Essential hypertension, benign 10/15/2006 03/10/2008 documented as of this encounter (statuses as of 01/21/2024) [facility] History of Past illness Narrative* Problem [...] issues 03/10/2008 Overview: History: and lives in [place], [place]. Admitted 07/30/21, underwent elective left VATS wedge resection Assessment: Ready for discharge to home Plan: -Discuss needs with patient and collaborate with case management -Will continue to evaluate during hospital admission -Skilled needs after discharge: none Nonallopathic lesion of rib cage, not elsewhere classified 02/24/2008 02/12/2017 Essential hypertension, benign 10/15/2006 03/10/2008 documented as of this encounter (statuses as of 01/25/2024) [facility] History of Past illness Narrative* Problem [...] issues 03/10/2008 Overview: History: and lives in [place], [place]. Admitted 07/30/21, underwent elective left VATS wedge resection Assessment: Ready for discharge to home Plan: -Discuss needs with patient and collaborate with case management -Will continue to evaluate during hospital admission -Skilled needs after discharge: none Nonallopathic lesion of rib cage, not elsewhere classified 02/24/2008 02/12/2017 Essential hypertension, benign 10/15/2006 03/10/2008 documented as of this encounter (statuses as of 02/23/2024) [facility] History of Present illness Narrative* RT Alessio(R) - 08/26/2022 4:30 PM EDT Radiology Service [...] 26, 2022 4:33 PM documented in this encounterMiami [facility]10-[facility] Miscellaneous Notes* Telephone Encounter - Luc [...] advise, Coni Mcdaniel RN documented in this encounterMiami [facility]10-[facility]22 Miscellaneous Notes* Telephone Encounter - Patricia [...] Thanks, Isreal Faustin PA-C documented in this encounterMiami [facility]10-[facility] History of Present illness Narrative* Amina [...] 15, 2022 12:10 PM documented in this encounterMiami [facility]10-[facility]22 Miscellaneous Notes* Telephone Encounter - Sandy Hernandez LPN - 08/13/2022 11:10 AM EDT Patient notified. Soonest to be scheduled is Thursday. [employer] still working on scheduling for the uro/server administrator consult in [place]. Patient is aware * Telephone Encounter - Luc Faustin PA-C - 08/13/2022 10:47 AM EDT Bacterial count too low for UTI as explained. Please schedule post void residual US today if possible. Please schedule consult [facility] or [facility] Dr. Lopez Telephone on 08/13/22 US PELVIS BLADDER CONSULT TO FEMALE UROLOGY/URO GYNECOLOGY Feeling of incomplete bladder emptying (primary encounter diagnosis) Thanks, Isreal Faustin PA-C * Telephone Encounter - Valorie Castañeda [...] to qualify as a urinary tract infection. Thanks, Isreal Faustin PA-C documented in this encounterMiami [facility]10-[facility] History of Present illness Narrative* Luc Faustin PA-C - 08/11/2022 3:14 PM EDT 76 year old female with c/o pain in right sciatic traveling lateral thigh, calf and into 4th and 5th toes. Feels some weakness in right leg. No numbness tingling, loss of sensation. Lanacane numbed skin but didn't help. Taking tylenol, some leftover [place] from lung surgery. Issues with incomplete voiding Was examined by urology INTELLIGENCE CHIEF Elissa Parks Urine wasn't complete HISTORIES FAMILY [...] Current Outpatient Medications Medication Sig Dispense Refill [id number] 1 mg-25 mg-12.5 mg-1 mg tab Take [...] improving Luc Faustin PA-C documented in this encounterMiami [facility] Hospital09-[facility] History of Present illness Narrative* Venessa Rosa MD - 07/30/2022 6:12 PM EDT FOLLOW UP VISIT NAME: Terri Garza [facility] [address] NO.: [id number] DATE OF SERVICE: 07/30/2022 : 1945 REFERRING PHYSICIAN: Andre Santana MD Terri is status post excision of lipomas of [...] others. Venessa Rosa MD documented in this encounterMiami [facility] Hospital09-19-2022 Nurse Note* Sarah Miranda LPN - 07/28/2022 4:20 PM EDT Bladder scan obtained 0 ml urine documented in this encounterMiami Valley Hospital09-19-2022 History of Present illness Narrative* Elissa Parks APRN.INTELLIGENCE CHIEF - 07/28/2022 4:00 PM EDT Images from the original note were not included. [facility] Patient: Terri Burciaga Provider Elissa Parks APRN.INTELLIGENCE CHIEF : 1945 Location: [facility]) Date of Service: July 28, 2022 [...] data point; Complex= 2 or more) Specific [place], Ur Date Value Ref Range Status 07/26/2021 [...] Report 07/11/2022 Final Value:Surgical Pathology Report Case: [id number] Authorizing Provider: Venessa Rosa MD Collected: 07/11/2022 [...] Burciaga DATE: July 28, 2022 OFFICE NUMBER: [phone] documented in this encounterMiami Valley Hospital08-29-2022 History of Present illness Narrative* Venessa Rosa MD - 07/07/2022 6:12 PM EDT HISTORY AND PHYSICAL Terri Garza [place] 1945 REFERRING PHYSICIAN: Luc Faustin PA-C CHIEF [...] entered by the nurse and reviewed by wi Nursing Notes: Emily Blake RN 07/07/2022 4:00 [...] Clinic: The patient will be scheduled at [facility] for excision of these lipomas Medical Decision Making: Problems: Low: Stable chronic illness Risk: Low: Low risk from testing/treatment Medical Decision Making Level: 3 - Low Venessa Rosa MD documented in this encounterMiami [facility] Hospital08-29-2022 Nurse Note* Emily Blake RN - [...] 2015 Emily Blake RN documented in this encounterMiami Valley Hospital08-29-2022 History of Present illness Narrative* Sierra Morrow RT(R) - 07/07/2022 2:20 PM EDT Radiology [...] 07, 2022 2:18 PM documented in this encounterMiami Valley Hospital08-29-2022 Miscellaneous Notes* Telephone Encounter - Juliann Dietrich Ma - 07/07/2022 11:00 AM EDT Patient was made aware of the results. Patient verbalizes understanding. Transferred to surgical scheduler. Juliann Dietrich Ma * Telephone Encounter - [...] DISEASE ThanksIsreal PA-C . documented in this encounterMiami Valley Hospital08-26-2022 Miscellaneous Notes* Telephone Encounter - Juliann [...] Thanks, Isreal Faustin PA-C documented in this encounterMiami Valley Hospital08-23-2022 Instructions* Patient Instructions* Luc Faustin PA-C [...] may be added to a regular diet. [place]-3 fatty acids - Consumption of omega-3 fatty [...] prescription statin medication rather than these supplements. Senior Lead Software Engineer studies of the efficacy of red yeast rice in lowering total cholesterol and LDL cholesterol include [86-88]: In a trial including 83 patients with hyperlipidemia, red yeast rice supplements (2.4 g/day) or placebo were given for eight weeks; all trial participants followed a cholesterol-lowering diet (Italian Heart Association Step 1 diet) [86]. Red [...] a number of plants such as goldenseal, [place] grape, barberry, and tree turmeric. It reduces [...] not recommended for use in lipid management. Lucia 2013 meta-analysis of 11 randomized trials, consumption [...] is the common name of the fruit [place] bergamia Risso. Improvements in serum lipids have [...] goal of improving lipids. documented in this encounterMiami Valley Hospital08-23-2022 History of Present illness Narrative* Luc Faustin PA-C - 07/01/2022 3:20 PM EDT 76 year old female with c/o fell three weeks at [employer] going up steps. Shoe caught on top [...] 1.00 - 4.00 k/uL 1.23 1.79 1.84 [place]% % 12.7 11.4 11.8 Abs [place] <0.87 k/uL 0.55 0.71 0.70 [place]% % [...] testing. Luc Faustin PA-C documented in this encounterMiami Valley Hospital07-19-2022 History of Present illness Narrative* Effie Gimenez RN - 05/27/2022 6:11 PM EDT [facility] CD[facility] Enrollment Provider Action/FYI: CDM - CKD Enrollment Outreach Call #1 Patient declined. Patient states still works, no free time and is able to get appt in PCP when needed. Patient referred by: [facility] Thania Contact made with patient: Yes - Patient identified by name and . Discussed care with patient Wendi this is Effie Gimenez RN and I am calling from Andre Santana MD office at the [facility]. I am a RN Take Down Inspector with our [facility] Chronic Disease Management program. [...] few questions once a week through your [employer] account. It will automatically show up for [...] back to our program. documented in this encounterMiami Valley Hospital07-08-2022 Miscellaneous Notes* Telephone Encounter - Elisa Victoria MA - 05/16/2022 10:38 AM EDT Patient notified of results. Elisa Victoria MA * Telephone Encounter - Elisa Victoria MA - 05/16/2022 10:37 AM EDT ----- Message from Andre Santana MD sent at 05/15/2022 5:13 PM EDT ----- Labs are stable. Andre Santana MD documented in this encounterMiami Valley Hospital07-07-2022 Miscellaneous Notes* Telephone Encounter - Shanel [...] advise. Shanel Patel Pss documented in this encounterMiami Valley Hospital06-29-2022 Miscellaneous Notes* Telephone Encounter - Shirin Draper APRN.CNP - 05/07/2022 7:51 PM EDT Please let patient know that her renal ultrasound looked good. She is emptying her bladder and kidneys look good. documented in this encounterMiami Valley Hospital06-23-2022 History of Present illness Narrative* RT Amilcar(Veda) - 05/01/2022 2:30 PM EDT Radiology Service [...] 01, 2022 3:21 PM documented in this encounterMiami Valley Hospital06-21-2022 Miscellaneous Notes* Telephone Encounter - Sandy [...] advise, Coni Mcdaniel RN documented in this encounterMiami Valley Hospital06-14-2022 History of Present illness Narrative* Shirin Draper APRN.INTELLIGENCE CHIEF - 04/22/2022 3:23 PM EDT NEW PATIENT [...] (no units) Date Value 07/26/2021 Negative Specific [place], Ur (no units) Date Value 07/26/2021 1.021 [...] cream - Follow up 3 months in [place] Shirin Draper APRN.INTELLIGENCE CHIEF documented in this encounterMiami Valley Hospital04-19-2022 History of Present illness Narrative* Jacquie Evans MD - 02/25/2022 2:45 PM EDT Images from the original note were not included. . 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 Admitted 07/30/21, underwent elective left VATS wedge resection Assessment: Ready for discharge to home Plan: -Discuss needs with patient and collaborate with case management -Will continue to evaluate during hospital admission -Skilled needs after discharge: none Nonallopathic lesion of rib cage, not elsewhere classified 02/24/2008 02/12/2017 Essential hypertension, benign 10/15/2006 0 03/10/2008 documented as of this encounter (statuses as of 05/02/2022) [facility] History of Past illness Narrative* Problem Noted Date Resolved Date Necrotizing granulomatous inflammation of lung 1 10/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 Admitted 07/30/21, underwent elective left VATS wedge resection Assessment: Ready for discharge to home Plan: -Discuss needs with patient and collaborate with case management -Will continue to evaluate during hospital admission -Skilled needs after discharge: none Nonallopathic lesion of rib cage, not elsewhere classified 02/24/2008 02/12/2017 Essential hypertension, benign 10/15/2006 0 03/10/2008 documented as of this encounter (statuses as of 10/24/2022) [facility] History of Present illness Narrative* Sierra Morrow (Rt), Lora - 01/09/2021 2:00 PM EST Radiology Service [...] 09, 2021 2:06 PM documented [facility] [place] [facility] Author Jimmy Gray [facility] Note Date/Time June 05, 2025 10:4 7am [facility] Medical Records Department [address] [place] [address] Emergency Department Summary 06/05/25 MR#: [id number] Acct: [id number] Name: TERRI BURCIAGA Rep #:[id number] : 1945 79 From: Jimmy Gray MD PCP: Dr. Andre Santana MD Status:REG E R Location: ED HPI History of Present Illness Chief Complaint: Chest Pain Informant: patient Narrative Narrative: Patient presenting with chest discomfort. She states she was getting ready to go to bed at 4 AM which was almost 2 hours ago, when she felt some skipping palpitations, shortness of breath, and then she had some chest discomfort in theleft side radiate up to her left neck and jaw. She states the chest discomfort is better but she still feeling like it is hard to take a deep breath and still feeling like her heart is skipping. Denies any recent illness. Denies any recent leg pain or swelling. She states she takes aspirin and clopidogrel because of a history of stents in her heart, but she is on no anticoagulants. [facility] Medical History Myocardial infarct Chest pain Hypertension Home Medications ?Medication ?Instructions ?Recorded ?Last Taken ?Type aspirin 81 mg tablet,delayed 81 mg PO DAILY 11/24/18 0 02/28/25 History release (Aspir-) carvedilol 6.25 mg tablet 6.25 mg PO Q12H 02/28/25 History clopidogrel 75 mg tablet 75 mg PO DAILY 02/28/2502/08 History losartan 100 mg tablet 100 mg PO DAILY 02/28/25 History rosuvastatin 10 mg tablet 10 mg PO QHS 02/28/25 History Allergy/AdvReac Type Severity Reaction Status Date / Time adhesive tape Allergy Itching Verified 06/05/25 05:42 [facility] Allergy Swelling Verified 06/05/25 05:42 cat dander Allergy Unknown Verified 06/05/25 05:42 cigarette smoke Allergy Other Verified 06/05/25 05:42 metoprolol (From Lopressor) Allergy Unknown Verified 06/05/25 05:42 nickel Allergy Rash Verified 06/05/25 05:42 naproxen (From Aleve) AdvReac Nausea/Vom/ Verified 06/05/25 05:42 Diarrhea rofecoxib (From Vioxx) AdvReac Upset Verified 06/05/25 05:42 Stomach Sulfa (Sulfonamide AdvReac Other Verified 06/05/25 05:42 Antibiotics) Surgical History History of coronary artery stent placement Social History housing: house Smoking Status: Former smoker ROS ROS ED Constitutional Constitutional ED: Denies chills or fever(s) Eyes Eyes: Denies change in vision or diplopia ENT ENT ED: Denies rhinorrhea or sore throat Cardiovascular Cardiovascular: Reports as per HPI, chest pain, palpitations and radiating jaw, neck or arm pain; Denies leg edema Respiratory/Chest Respiratory/Chest: Reports dyspnea; Denies cough Gastrointestinal Gastrointestinal: Denies abdominal pain, diarrhea, nausea or vomiting Genitourinary Genitourinary ED: Denies dysuria or hematuria Musculoskeletal Musculoskeletal: Denies back pain or neck pain Integumentary Denies abscess or rash Neurologic Neurologic: Denies headache(s), paresthesias or weakness Psychiatric Psychiatric: Denies suicidal thoughts EXAM Physical Exam Const Vital Signs: 06/05/25 05:37 06/05/25 05:42 06/05/25 05:49 Temperature 98.6 F Temperature Source Oral Pulse Rate 96 Respiratory Rate 18 Respiratory Effort Short of Breath Blood Pressure 188/108 H Blood Pressure Mean 134 Pulse Ox 96 99 Oxygen Delivery Method Room Air Room Air 06/05/25 06:00 06/05/25 06:56 Temperature Temperature Source Pulse Rate 76 84 Respiratory Rate 16 17 Respiratory Effort Blood Pressure 184/95 H 179/82 H Blood Pressure Mean 124 114 Pulse Ox 99 99 Oxygen Delivery Method Room Air Room Air Positive well nourished and well developed General Appearance ED: well developed and NAD HEENT Reports moist mucous membranes normocephalic and atraumatic Eyes PERRL and EOMs intact bilaterally Neck full ROM and supple Resp normal respiratory effort and clear to auscultation bilaterally Cardio regular rate, regular rhythm and no murmurs Peripheral Pulses: pulses 2+ throughout GI non-tender and non-distended Auscultation: normoactive bowel sounds Palpation: soft Back/Spine no CVA tenderness General Back: other FROM Extremity normal to inspection General Extremety ED: Negative for edema, pulses abnormal or tenderness General Extremity: Negative for edema or pulses abnormal Neuro oriented x3, CN's II-XII intact bilaterally and no sensory deficits noted Sensorium / Orientation: awake and alert Motor Exam: strength 5/5 throughout Skin no rashes or lesions noted and no wounds Heart Score History: Moderately Suspicious ECG: Normal Age: >/= 65 years Risk Factors: >/= 3 Risk Factors or History of CAD Score: 5 MDM MDM MDM Narrative Medical decision making narrative: While evaluating the patient she is on the monitor and is in a sinus rhythm at 88-90, no ectopy, no irregularity and no dysrhythmia while she is feeling like she is having palpitations suggesting the etiology may be noncardiac but given her symptoms, performing a cardiac workup with serial troponin measurements. 1 view chest x-ray my interpretation is normal radiology in agreement. Her EKG is normal, she has had no telemetry events or ectopy, and her labs and initial troponin are normal except for mild elevated creatinine, similar to prior measurements for her. On reexamination, she is feeling better. Blood pressure in the 160s. She is not having any symptoms at the current moment. She states the palpitations and skipping were the most prominent symptom and were much moreintense prior to getting here. We will keep her on the monitor until her secondtroponin comes back. If she develops no other concerning symptoms or telemetry events and her second troponin is negative I would support allowing her to go home with close a patient follow-up, discussed this with her at length she is comfortable with that plan. Lab Data Attestation: I reviewed the patient's lab results. Labs: Laboratory Results - last 24 hr 06/05/25 05:41 WBC 7.8 RBC 5.13 Hgb 14.2 Hct 44.6 MCV 86.9 MCH 27.7 MCHC 31.8 L RDW Std Deviation 42.9 RDW Coeff of Barb 13.4 Plt Count 189 MPV 10.6 Immature Gran % (Auto) 0.300 Neut % (Auto) 54.6 Lymph % (Auto) 28.9 [place] % (Auto) 13.2 H Eos % (Auto) 2.6 Baso % (Auto) 0.4 Absolute Neuts (auto) 4.2 Absolute Lymphs (auto) 2.24 Nucleated RBC % 0 Sodium 138 Potassium 3.8 Chloride 102 Carbon Dioxide 21.1 Anion Gap 15 BUN 24 H Creatinine 1.33 H Estim Creat Clear Calc 33.56 L Est GFR (MDRD) Non-Af 41 L BUN/Creatinine Ratio 17.7 Glucose 123 H Calcium 9.2 Troponin T High Sens 9 D Radiography Diagnostic Testing: Clinical Impression(s) from Imaging Studies Chest X-Ray 06/05/25 06:00 IMPRESSION: There is blunting of the costophrenic angle on the left consistent with a trace effusion or scar, unchanged. Reading Location: [facility] Rhythm Strip Rhythm Strip: Sinus Rhythm Rate: 95 Ectopy: None EKG Initial EKG: Attestation: I personally reviewed and interpreted this EKG as follows: Interpretation: Sinus Rhythm and No Acute Injury Pattern Comments: Nml axis & intervals; nml EKG Discharge Plan Triage Chief Complaint: Chest Pain ED Provider: Jimmy Gray Dx/Rx/DC Orders Clinical Impression: Palpitations, Chest pain, unspecified Instructions: ED Chest Pain, Uncertain Cause, ED Palpitations Prescriptions: No Action aspirin [Aspir-81] 81 MG tablet,delayed release (DR/EC) 81 mg PO DAILY carvedilol 6.25 mg tablet 6.25 mg PO Q12H Patient Comments: [NO ORIGINAL SIG] clopidogrel 75 mg tablet 75 mg PO DAILY losartan 100 mg tablet 100 mg PO DAILY rosuvastatin 10 mg tablet 10 mg PO QHS Primary Care Provider: Andre Santana Referrals: Andre Santana MD [Primary Care Provider] - As soon as possible (Or your heart doctor) Print Language: [place] Disposition Disposition: Home, Self Care What to do if you have Problems For any increased pain, shortness of breath, bleeding, nausea or vomiting, chestpain, or any unexpected problems, contact your Primary Care Provider. Call [facility] ([phone]) or report to the closest Emergency Room. Call 911 if necessary. 06/05/25723 <Electronically signed by Jimmy Gray MD> Cosigner Signature (if applicable): CC: Dr. Andre Santana MD ~ Signed ADDENDUM by Dr. Jimmy Gray MD on 06/05/25 at 0744 Staff went into drawl patient's second troponin, and her daughter is present whowas not there before, and states that she has been interacting with her mom here, and states that her mom is confused and this is not normal for her. She is been repeating questions for her, she has not been remembering her medications, she is not remembering people's names, and she did not know the correct day of the week, all of which is unusual for her. So I went to reevaluate her, the patient states she feels a little disoriented, and they boththink maybe it started yesterday at some point. She does not think she has had any urinary symptoms but I am adding on a UA and a CT of the head to her workup and we will reevaluate her, checked out at shift change for results of these. 06/05/25 0744<Electronically signed by Jimmy Gray MD> Cosigner Signature (if applicable): cc: Dr. Andre Santana MD ~* Signed ADDENDUM by Dr. Cesario Mcclain DO on 06/05/25 at 1047 Care of the patient was turned over to me. Because of the daughter's concern for confusion, urinalysis was ordered, CT scan of the brain was ordered, and a COVID, influenza, and RSV PCR was ordered. CT scan of the brain was reviewed. There is no acute intracranial process noted. This was interpreted by the radiologist and was also independently reviewed by myself. Urinalysis was reviewed. There is no evidence of urinary tract infection or hematuria. COVID-19 PCR was reviewed and was negative. Influenza PCR was reviewed and was negative for influenza A and influenza B. RSV PCR was reviewed and was negative. On reevaluation, patient states she is still having some forgetfulness and confusion. Because of this, patient would feel better if she was admitted to the hospital for further evaluation. Case was discussed with the hospitalist. Will admit the patient for observation. Patient and daughter understood and were agreeable with the plan. All questions were answered. 06/05/25 1047<Electronically signed by Cesario Schwiger DO> Cosigner Signature (if applicable): cc: Dr. Andre Santana MD ~* Signed [facility] Work Phone: Evaluation note* Diagnosis Chest pain, unspecified type- Primary 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 [facility] Atrophic vaginitis- Primary Postmenopausal atrophic vaginitis Urinary frequency Feeling of incomplete bladder emptying Incomplete bladder emptying H/O senile atrophic vaginitis Personal history of other genital system and obstetric disorders [facility] Diagnosis Mixed hyperlipidemia- Primary Hyperglycemia Other abnormal glucose Stage 3b chronic kidney disease (HCC) [facility] Diagnosis Atrophic vaginitis Postmenopausal atrophic vaginitis [facility] Diagnosis Essential hypertension with goal blood pressure less than 140/90 Hypokalemia Hypopotassemia [facility] Diagnosis CKD (chronic kidney disease) stage 1, GFR 90 ml/min or greater- Primary Chronic kidney disease, Stage I [facility] Diagnosis Atrial tachycardia (HCC)- Primary Other [...] of both thumbs [facility] Diagnosis Sjoegren syndrome (HCC)- Primary Sicca syndrome [facility]* Diagnosis Lipoma of anterior chest wall- Primary Lipoma of back Lipoma of other specified sites Dysesthesia Disturbance of skin sensation Lipoma of anterior chest wall Lipoma of back Lipoma of other specified sites Dysesthesia Disturbance of skin sensation [facility] Diagnosis Sensation of pressure in bladder area- Primary Other specified disorders of bladder Feeling of incomplete bladder emptying Incomplete bladder emptying Hemoglobinuria [facility] Diagnosis Status post excision of lipoma- Primary Other postprocedural status [facility] Diagnosis Feeling of incomplete bladder emptying- Primary Incomplete bladder emptying Sciatica, right side [facility] Diagnosis Feeling of incomplete bladder emptying- Primary Incomplete bladder emptying [facility] Diagnosis Feeling of incomplete bladder emptying Incomplete bladder emptying [facility] Diagnosis Sciatica, right side [facility] Diagnosis Sciatica, right side [facility] Diagnosis Sciatica, right side- Primary [facility] Diagnosis Pleurisy Pleurisy without mention of effusion or current tuberculosis [facility] Diagnosis Right lumbar radiculitis- Primary Thoracic or lumbosacral neuritis or radiculitis, unspecified Lumbar stenosis with neurogenic claudication Spinal stenosis, lumbar region, with neurogenic claudication Urinary pain Renal colic Intractable pain Other chronic pain Foot drop, left Other acquired deformity of ankle and foot Bilirubin in urine Biliuria [facility] Diagnosis Sciatica, right side [facility] Diagnosis Sciatica, right side- Primary [facility] Diagnosis Sciatica, right side- Primary [facility] Diagnosis Sciatica, right side- Primary [facility] Diagnosis Feeling of incomplete bladder emptying Incomplete bladder emptying [facility] Diagnosis Sciatica, right side- Primary [facility] Diagnosis Rash- Primary Rash and other nonspecific skin eruption [facility] Diagnosis Sciatica, right side- Primary [facility] Diagnosis Sciatica, right side- Primary Atrial tachycardia (HCC)- Primary Other specified cardiac dysrhythmias [facility] Diagnosis Sciatica, right side- Primary [facility] Diagnosis Spinal stenosis, lumbar region with neurogenic claudication- Primary Sciatica, right side Other chronic pain [facility] Diagnosis Sterile pyuria- Primary Other nonspecific finding on examination of urine [facility]* Diagnosis Sjoegren syndrome (HCC)- Primary [...] screening for osteoporosis [facility]* Diagnosis Dehydration- Primary [facility]* Diagnosis Palpitations- Primary Essential hypertension with goal blood pressure less than 140/90 [facility]* Diagnosis Chest pain, unspecified type- [...] (HCC) Sicca syndrome [facility]* Diagnosis RUQ pain- Primary Abdominal [...] ankle and foot [facility] Diagnosis Pain in right hip Pain in joint, pelvic region and thigh [facility] Diagnosis Chest pain on breathing Painful respiration [facility] Diagnosis Microscopic hematuria [facility] Diagnosis Primary hypertension- Primary Unspecified essential hypertension Atrial tachycardia Other specified cardiac dysrhythmias Mixed hyperlipidemia [facility] Diagnosis Sjogren's syndrome without extraglandular involvement (HCC)- Primary Screening for osteoporosis Special screening for osteoporosis Osteopenia, unspecified location [facility] Diagnosis URI, acute- Primary Acute upper respiratory infections of unspecified site Acute cough [facility] Diagnosis Microscopic hematuria- Primary [facility] Diagnosis Microscopic hematuria- Primary Right renal stone Vaginal atrophy Postmenopausal atrophic vaginitis [facility] Diagnosis Actinic keratosis- Primary Essential hypertension with goal blood pressure less than 140/90 Hypertension, essential Unspecified essential hypertension Stage 3b chronic kidney disease (HCC) Allergic dermatitis Contact dermatitis and other eczema, due to unspecified cause [facility] Diagnosis Actinic keratosis- Primary [facility]* Diagnosis Actinic keratosis- Primary [facility]* Diagnosis Injury of right ankle, initial encounter- Primary [facility] Diagnosis ST elevation myocardial infarction (STEMI) involving other coronary artery of inferior wall (HCC)- Primary Essential hypertension with goal blood pressure less than 140/90 Pseudoaneurysm (HCC) Aneurysm of unspecified site Enlarged thyroid Goiter, unspecified Mixed hyperlipidemia Atrial tachycardia (HCC) Other specified cardiac dysrhythmias FRIEDA (obstructive sleep apnea) Obstructive sleep apnea (adult) (pediatric) [facility] Diagnosis Post PTCA- Primary Postsurgical percutaneous transluminal coronary angioplasty status Atrial tachycardia (HCC) Other specified cardiac dysrhythmias Coronary artery disease involving [place] coronary artery of [place] heart without angina pectoris [facility]* Diagnosis Left-sided chest pain [facility] Diagnosis Arthritis of carpometacarpal (CMC) joint of both thumbs documented in this encounter [facility]* Diagnosis Chest pain, unspecified type documented in this encounter [facility]* Diagnosis Pain of right thumb- Primary Pain in limb Pain of right thumb Pain in limb documented in this encounter [facility]* Diagnosis Pain of right thumb Pain in limb documented in this encounter [facility] note* Diagnosis Dermatitis- Primary Contact dermatitis and other eczema, due to unspecified cause ST elevation myocardial infarction (STEMI) involving other coronary artery of inferior wall (HCC) Pseudoaneurysm (HCC) Aneurysm of unspecified site Essential hypertension with goal blood pressure less than 140/90 Hypertension, essential Unspecified essential hypertension Coronary artery disease involving [place] coronary artery of [place] heart without angina pectoris Fatigue, unspecified type Mixed hyperlipidemia [facility] Diagnosis Postprocedural pneumothorax Iatrogenic pneumothorax [facility] Diagnosis 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 Anemia, unspecified type [facility] Diagnosis Pseudoaneurysm (HCC) Aneurysm of unspecified site [facility]* Diagnosis Anemia, unspecified type- Primary documented in this encounter [facility]* Diagnosis Essential hypertension with goal blood pressure less than 140/90- Primary Anemia, unspecified type Fatigue, unspecified type Gross hematuria [facility]* Diagnosis Essential hypertension with goal blood pressure less than 140/90- Primary documented in this encounter [facility] note* Diagnosis Visit for wound check- Primary Anticoagulant long-term use Encounter for long-term (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 anticoagulants documented in this encounter [facility] Work Phone: Evaluation note* Diagnosis Mixed hyperlipidemia- Primary Primary hypertension Unspecified essential hypertension Coronary artery disease involving [place] coronary artery of [place] heart without angina pectoris [facility]* Diagnosis Primary hypertension- Primary Unspecified essential hypertension Mixed hyperlipidemia Atrial tachycardia (HCC) Other specified cardiac dysrhythmias Coronary artery disease involving [place] coronary artery of [place] heart without angina pectoris Granulomatous lung disease (HCC) Other diseases of lung, not elsewhere classified Thyroid nodule Nontoxic uninodular goiter Stage 3b chronic kidney disease (HCC) Sjoegren syndrome (HCC) Sicca syndrome Prediabetes Other abnormal glucose Microscopic hematuria 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 Palpitations [facility] Diagnosis Enlarged thyroid Goiter, unspecified [facility]* Diagnosis Thyroid nodule greater than or equal to 1 cm in diameter incidentally noted on imaging study- Primary [facility]* Diagnosis Lung nodules- Primary Other nonspecific abnormal finding of lung field Granulomatous lung disease (HCC) Other diseases of lung, not elsewhere classified SOB (shortness of breath) Shortness of breath [facility]* Diagnosis Sjogren's syndrome without extraglandular involvement (HCC)- Primary Osteopenia, unspecified location Rash and nonspecific skin eruption Rash and other nonspecific skin eruption GUERRA (dyspnea on exertion) Other dyspnea and respiratory abnormality [facility]* Diagnosis Rash and nonspecific skin eruption- Primary Rash and other nonspecific skin eruption [facility]* Diagnosis Lung nodules Other nonspecific abnormal finding of lung field [facility] Diagnosis SVT (supraventricular tachycardia) (HCC)- Primary Other specified cardiac dysrhythmias [facility]* Diagnosis Essential hypertension with goal blood pressure less than 140/90 [facility]* Diagnosis Sjogren's syndrome without extraglandular involvement (HCC) Osteopenia, unspecified location Rash and nonspecific skin eruption Rash and other nonspecific skin eruption GUERRA (dyspnea on exertion) Other dyspnea and respiratory abnormality [facility] Diagnosis Multiple thyroid nodules- Primary Nontoxic multinodular goiter [facility] noteNo assessment information availableWGe[facility] Work Phone: Evaluation note* Diagnosis Neck pain- Primary Cervicalgia Lightheaded Dizziness and giddiness Primary hypertension Unspecified essential hypertension Mixed hyperlipidemia Atrial tachycardia (HCC) Other specified cardiac dysrhythmias Coronary artery disease involving [place] coronary artery of [place] heart without angina pectoris Gastroesophageal reflux disease, unspecified whether esophagitis present Sjogren's syndrome, with unspecified organ involvement (HCC) [facility] Diagnosis Neck pain Cervicalgia Lightheaded Dizziness and giddiness [facility]* Diagnosis Primary hypertension- Primary Unspecified essential hypertension Mixed hyperlipidemia Atrial tachycardia (HCC) Other specified cardiac dysrhythmias Coronary artery disease involving [place] coronary artery of [place] heart without angina pectoris FRIEDA (obstructive sleep apnea) Obstructive sleep apnea (adult) (pediatric) Granulomatous lung disease (HCC) Other diseases of lung, not elsewhere classified Stage 3b chronic kidney disease (HCC) Sjoegren syndrome (HCC) Sicca syndrome Prediabetes Other abnormal glucose Post PTCA Postsurgical percutaneous transluminal coronary angioplasty status Anxiety Anxiety state, unspecified Medication monitoring encounter Encounter for therapeutic drug monitoring [facility] Diagnosis Solitary thyroid nodule- Primary Nontoxic uninodular goiter Multiple thyroid nodules Nontoxic multinodular goiter [facility]* Diagnosis Presence of coronary angioplasty implant and graft Postsurgical percutaneous transluminal coronary angioplasty status Solitary thyroid nodule Nontoxic uninodular goiter detention (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 antithrombotics/antiplatelets [facility]* Diagnosis Traumatic hematoma of forehead, subsequent encounter- Primary [facility]* Diagnosis Dysphasia Other speech disturbance Transient cerebral ischemia, unspecified type [facility]* Diagnosis Empty sella (HCC)- Primary Other disorders of the pituitary and other syndromes of diencephalohypophyseal origin Memory changes Memory loss [facility]* Diagnosis Stenosis of left carotid artery- Primary Occlusion and stenosis of carotid artery without mention of cerebral infarction documented in this encounter [facility] for referral (narrative)* Diagnostic Procedure Only (Routine) - Authorized Specialty Diagnoses / Procedures Referred By Thea cantu Referred To Contact US IMAGING Diagnoses Atrophic vaginitis Procedures US KIDNEY/BLADDER US RETROPERITONEAL REAL TIME W/IMAGE COMPLETE Shirin Draper APRN.CNP [address] [place] [address] Us Imaging Referral ID Status Reason Start Date Expiration Date Visits Requested Visits Authorized [id number] Authorized Auto-Generat ed Referral 04/22/2022 05/22/2023 1 1 [facility] for referral (narrative)* Diagnostic Procedure Only (Routine) - Closed Specialty Diagnoses / Procedures Referred By Contac t Referred To Contact US IMAGING Diagnoses Atrophic vaginitis Procedures US KIDNEY/BLADDER US RETROPERITONEAL REAL TIME W/IMAGE COMPLETE Shirin Draper APRN.INTELLIGENCE CHIEF [address] [place] [address] Us Imaging Referral ID Status Reason Start Date Expiration Date V isits Requested Visits Authorized [id number] Closed Auto-Generate d Referral 04/22/2022 05/22/2023 1 1 [facility] for referral (narrative)* Diagnostic Procedure Only (Routine) - Pending Review Specialty Diagnoses / Procedures Referred By Contac t Referred To Contact XR IMAGING Diagnoses Arthritis of carpometacarpal (CMC) joint of both thumbs Procedures XR DIGIT GENERAL 3V FRONTAL/LAT/OBL RIGHT RADEX FINGR MINIMUM 2 VIEWS Luc Faustin PA-C [address] [place] [address] Xr Imaging Referral ID Status Reason Start Date Expiration Date Visits Requested Visits Authorized [id number] Pending Review Auto-Generat ed Referral 07/02/2022 08/01/2023 1 1 * Diagnostic Procedure Only (Routine) - Pending Review Specialty Diagnoses / Procedures Referred By Contac t Referred To Contact XR IMAGING Diagnoses Arthritis of carpometacarpal (CMC) joint of both thumbs Procedures XR DIGIT GENERAL 3V FRONTAL/LAT/OBL LEFT RADEX FINGR MINIMUM 2 VIEWS Luc Faustin PA-C [address] [place] [address] Xr Imaging Referral ID Status Reason Start Date Expiration Date Visits Requested Visits Authorized [id number] Pending Review Auto-Generat ed Referral 07/02/2022 08/01/2023 1 1 * Consult, Test, Treat (Routine) - Authorized Specialty Diagnoses / Procedures Referred By Contac t Referred To Contact General Surgery Diagnoses Lipoma of back Procedures CONSULT TO GENERAL SURGERY OFFICE/OUTPATIENT [facility] 60-74 MINUTES Luc Faustin PA-C [address] [place] [address] Referral ID Status Reason Start Date Expiration Date Visits Requested Visits Authorized [id number] Authorized PCP Requested Referral 07/01/2022 07/01/2023 1 1 [facility] for referral (narrative)* Diagnostic Procedure Only (Routine) - Authorized Specialty Diagnoses / Procedures Referred By Contac t Referred To Contact US IMAGING Diagnoses Feeling of incomplete bladder emptying Procedures US PELVIS BLADDER US PELVIC NONOBSTETRIC IMAGE DCMTN LIMITED/F/U Luc Faustin PA-C [address] [place] [address] Us Imaging Referral ID Status Reason Start Date Expiration Date Visits Requested Visits Authorized [id number] Authorized Auto-Generat ed Referral 08/13/2022 11/08/2022 1 1 * Consult, Test, Treat (Routine) - Authorized Specialty Diagnoses / Procedures Referred By Contac t Referred To Contact Diagnoses Feeling of incomplete bladder emptying Procedures CONSULT TO FEMALE UROLOGY/URO GYNECOLOGY OFFICE/OUTPATIENT [facility] 60-74 MINUTES Luc Faustin PA-C [address] [place] [address] Referral ID Status Reason Start Date Expiration Date Visits Requested Visits Authorized [id number] Authorized PCP Requested Referral 08/13/2022 08/13/2023 1 1 [facility] for referral (narrative)* Diagnostic Procedure Only (Routine) - Closed Specialty Diagnoses / Procedures Referred By Contac t Referred To Contact US IMAGING Diagnoses Feeling of incomplete bladder emptying Procedures US PELVIS BLADDER US PELVIC NONOBSTETRIC IMAGE DCMTN LIMITED/F/U Luc Faustin PA-C [address] [place] [address] Us Imaging Referral ID Status Reason Start Date Expiration Date V isits Requested Visits Authorized [id number] Closed Auto-Generate d Referral 08/13/2022 11/08/2022 1 1 [facility] for referral (narrative)* Diagnostic Procedure Only (Routine) - Closed Specialty Diagnoses / Procedures Referred By Contac t Referred To Contact XR IMAGING Diagnoses Sciatica, right side Procedures XR LUMBAR GENERAL 3V AP/LAT/L5-S1 RADEX SPINE LUMBOSACRAL 2/3 VIEWS Luc Faustin PA-C [address] [place] [address] Xr Imaging Referral ID Status Reason Start Date Expiration Date V isits Requested Visits Authorized [id number] Closed Auto-Generate d Referral 08/18/2022 09/17/2023 1 1 [facility] for referral (narrative)* - Pending Review Specialty Diagnoses / Procedures Referred By Contac t Referred To Contact Physical Therapy Diagnoses Sciatica, right side Spinal stenosis, lumbar region with neurogenic claudication Procedures CONSULT TO PHYSICAL THERAPY Daisha Junior, SECTION WEAVER.INTELLIGENCE CHIEF [address] [place] [address] Referral ID Status Reason Start Date Expiration Date V isits Requested Visits Authorized [id number] Pending Review 10/23/2022 01/21/2023 1 1 [facility] [facility] for referral (narrative)* Diagnostic Procedure Only (Routine) - Pending Review Specialty Diagnoses / Procedures Referred By Contac t Referred To Contact XR IMAGING Diagnoses Pain in right hip Procedures XR HIP GENERAL 3V PELV/AP/LAT RIGHT RADEX HIP UNILATERAL WITH PELVIS 2-[place] [address] [place] [address] Xr Imaging Referral ID Status Reason Start Date Expiration Date Visits Requested Visits Authorized [id number] Pending Review Auto-Generat ed Referral 11/28/2022 12/28/2023 1 1 [facility] for referral (narrative)* Diagnostic Procedure Only (Routine) - Authorized Specialty Diagnoses / Procedures Referred By Ericaac t Referred To Contact BR IMAGING Diagnoses Visit for screening mammogram Procedures GRANT SCREENING SCREENING MAMMOGRAPHY BI 2-VIEW BREAST INC CAD Andre Santana MD [address] [place] [address] Br Imaging [address] [place] [address] Referral ID Status Reason Start Date Expiration Date Visits Requested Visits Authorized [id number] Authorized Auto-Generat ed Referral 01/07/2023 02/05/2024 1 1 [facility] for referral (narrative)* Outpatient Procedure (Routine) - Closed Specialty Diagnoses / Procedures Referred By Thea t Referred To Contact [facility] Diagnoses Palpitations Procedures ECG COMPLETE ECG ROUTINE ECG W/LEAST 12 LDS W/I&R Angelika Castelan APRN.CNP [address] [place] [address] [facility] [address] [place] [address] Referral ID Status Reason Start Date Expiration Date V isits Requested Visits Authorized [id number] Closed Auto-Generate d Referral 06/17/2023 06/16/2024 1 1 [facility] for referral (narrative)* Diagnostic Procedure Only (Routine) - Authorized Specialty Diagnoses / Procedures Referred By Thea t Referred To Contact US IMAGING Diagnoses RUQ pain Procedures US ABD RIGHT UPPER QUADRANT US ABDOMINAL REAL TIME W/IMAGE LIMITED MandylogAngelika rossi APRN.CNP [address] [place] [address] [place] [address] Referral ID Status Reason Start Date Expiration Date Visits Requested Visits Authorized [id number] Authorized Auto-Generat ed Referral 08/17/2023 09/15/2024 1 1 [facility] for referral (narrative)* Diagnostic Procedure Only (Routine) - Closed Specialty Diagnoses / Procedures Referred By Contac t Referred To Contact US IMAGING Diagnoses RUQ pain Procedures US ABD RIGHT UPPER QUADRANT US ABDOMINAL REAL TIME W/IMAGE LIMITED Angelika Castelan APRN.INTELLIGENCE CHIEF [address] [place] [address] [place] [address] Referral ID Status Reason Start Date Expiration Date V isits Requested Visits Authorized [id number] Closed Auto-Generate d Referral 08/17/2023 09/15/2024 1 1 [facility] for referral (narrative)* Diagnostic Procedure Only (Routine) - Closed Specialty Diagnoses / Procedures Referred By Contac t Referred To Contact XR IMAGING Diagnoses Pain in right hip Procedures XR HIP GENERAL 3V PELV/AP/LAT RIGHT RADEX HIP UNILATERAL WITH PELVIS 2-[place] [address] [place] [address] [place] [address] Referral ID Status Reason Start Date Expiration Date V isits Requested Visits Authorized [id number] Closed Auto-Generate d Referral 11/28/2022 12/28/2023 1 1 [facility] for referral (narrative)* Diagnostic Procedure Only (Urgent) - Closed Specialty Diagnoses / Procedures Referred By Contac t Referred To Contact XR IMAGING Diagnoses Injury of right ankle, initial encounter Procedures XR ANKLE GENERAL 3V AP/LAT/OBL RIGHT RADEX ANKLE COMPLETE MINIMUM 3 VIEWS Aris Stephenson APRN.INTELLIGENCE CHIEF [address] [place] [address] [place] [address] Referral ID Status Reason Start Date Expiration Date V isits Requested Visits Authorized [id number] Closed Auto-Generate d Referral 06/08/2024 07/08/2025 1 1 [facility] for referral (narrative)* Diagnostic Procedure Only (Routine) - New Request Specialty Diagnoses / Procedures Referred By Thea t Referred To Contact US IMAGING Diagnoses Enlarged thyroid Procedures US THYROID/PARATHYROID US SOFT TISSUE HEAD & NECK REAL TIME IMGE DOCM Sandy Holm APRN.CNP [address] [place] [address] [place] [address] Referral ID Status Reason Start Date Expiration Date Visits Requested Visits Authorized [id number] New Request Auto-Generat ed Referral 07/18/2024 08/17/2025 1 1 * Consult, Test, Treat (Routine) - Authorized Specialty Diagnoses / Procedures Referred By Thea Referred To Contact Vascular Medicine Diagnoses Pseudoaneurysm (HCC) Procedures CONSULT TO VASCULAR MEDICINE OFFICE/OUTPATIENT NEW [facility] MDM 60 MINUTES Sandy Holm APRN.CNP [address] [place] [address] Referral ID Status Reason Start Date Expiration Date Visits Requested Visits Authorized [id number] Authorized PCP Requested Referral 07/18/2024 07/18/2025 1 1 [facility] for referral (narrative)* Diagnostic Procedure Only (Routine) - Closed Specialty Diagnoses / Procedures Referred By Thea t Referred To Contact XR IMAGING Diagnoses Arthritis of carpometacarpal (CMC) joint of both thumbs Procedures XR DIGIT GENERAL 3V FRONTAL/LAT/OBL RIGHT RADEX FINGR MINIMUM 2 VIEWS Luc Faustin PA-C [address] [place] [address] [place] [address] Referral ID Status Reason Start Date Expiration Date V isits Requested Visits Authorized [id number] Closed Auto-Generate d Referral 07/02/2022 08/01/2023 1 1 * Diagnostic Procedure Only (Routine) - Closed Specialty Diagnoses / Procedures Referred By Contac t Referred To Contact XR IMAGING Diagnoses Arthritis of carpometacarpal (CMC) joint of both thumbs Procedures XR DIGIT GENERAL 3V FRONTAL/LAT/OBL LEFT RADEX FINGR MINIMUM 2 VIEWS Luc Faustin PA-C [address] [place] [address] [place] [address] Referral ID Status Reason Start Date Expiration Date V isits Requested Visits Authorized [id number] Closed Auto-Generate d Referral 07/02/2022 08/01/2023 1 1 [facility] for referral (narrative)* Diagnostic Procedure Only (Urgent) - Closed Specialty Diagnoses / Procedures Referred By Contac t Referred To Contact XR IMAGING Diagnoses Pain of right thumb Procedures XR DIGIT GENERAL 3V FRONTAL/LAT/OBL RIGHT RADEX FINGR MINIMUM 2 VIEWS Jazmin Palumbo PA [address] [place] [address] [place] [address] Referral ID Status Reason Start Date Expiration Date V isits Requested Visits Authorized [id number] Closed Auto-Generate d Referral 08/09/2024 09/08/2025 1 1 [facility] for referral (narrative)* Diagnostic Procedure Only (Urgent) - Closed Specialty Diagnoses / Procedures Referred By Contac t Referred To Contact XR IMAGING Diagnoses Pain of right thumb Procedures XR DIGIT GENERAL 3V FRONTAL/LAT/OBL RIGHT RADEX FINGR MINIMUM 2 VIEWS Jazmin Palumbo PA [address] [place] [address] [place] [address] Referral ID Status Reason Start Date Expiration Date V isits Requested Visits Authorized [id number] Closed Auto-Generate d Referral 08/09/2024 09/08/2025 1 1 [facility] for referral (narrative)* Outpatient Procedure (Routine) - New Request Specialty Diagnoses / Procedures Referred By Contac t Referred To Contact [facility] Diagnoses Palpitations Procedures ECG COMPLETE ECG ROUTINE ECG W/LEAST 12 LDS W/I&R Andre Santana MD [address] [place] [address] [facility] [address] [place] [address] Referral ID Status Reason Start Date Expiration Date Visits Requested Visits Authorized [id number] New Request Auto-Generat ed Referral 11/23/2024 11/23/2025 1 1 * Consult, Test, Treat (Routine) - Authorized Specialty Diagnoses / Procedures Referred By Contac t Referred To Contact Pulmonary and Critical Care Medicine Diagnoses Granulomatous lung disease (HCC) Procedures CONSULT TO PULM/CRITICAL CARE OFFICE/OUTPATIENT NEW HIGH MDM 60 MINUTES Andre Santana MD [address] [place] [address] Referral ID Status Reason Start Date Expiration Date Visits Requested Visits Authorized [id number] Authorized PCP Requested Referral 11/23/2024 11/23/2025 1 1 [facility] for referral (narrative)* Diagnostic Procedure Only (Routine) - Authorized Specialty Diagnoses / Procedures Referred By Contac t Referred To Contact XR IMAGING Diagnoses Sjogren's syndrome without extraglandular involvement (HCC) Osteopenia, unspecified location Rash and nonspecific skin eruption GUERRA (dyspnea on exertion) Procedures DXA-AXIAL SKELETON DXA BONE DENSITY STUDY 1/> [place] [address] [place] [address] [place] [address] Referral ID Status Reason Start Date Expiration Date Visits Requested Visits Authorized [id number] Authorized Auto-Generat ed Referral 12/15/2024 01/14/2026 1 1 [facility] for referral (narrative)No reason for referral information [facility] Phone: [facility] for [facility] Narrative* Diagnostic Procedure Only (Routine) - Closed Specialty Diagnoses / Procedures Referred By Contac t Referred To Contact US IMAGING Diagnoses Atrophic vaginitis Procedures US KIDNEY/BLADDER US RETROPERITONEAL REAL TIME W/IMAGE COMPLETE Shirin Draper, TRINY.INTELLIGENCE CHIEF [address] [place] [address] Us Imaging Referral ID Status Reason Start Date Expiration Date V isits Requested Visits Authorized [id number] Closed Auto-Generate d Referral 04/22/2022 05/22/2023 1 1 [facility] for visit Narrative* Diagnostic Procedure Only (Routine) - Closed Specialty Diagnoses / Procedures Referred By Contac t Referred To Contact XR IMAGING Diagnoses Sciatica, right side Procedures XR LUMBAR GENERAL 3V AP/LAT/L5-S1 RADEX SPINE LUMBOSACRAL 2/3 VIEWS Luc Faustin PA-C [address] [place] [address] Xr Imaging Referral ID Status Reason Start Date Expiration Date V isits Requested Visits Authorized [id number] Closed Auto-Generate d Referral 08/18/2022 09/17/2023 1 1 [facility] for visit Narrative* Diagnostic Procedure Only (Routine) - Closed Specialty Diagnoses / Procedures Referred By Contac t Referred To Contact XR IMAGING Diagnoses Pain in right hip Procedures XR HIP GENERAL 3V PELV/AP/LAT RIGHT RADEX HIP UNILATERAL WITH PELVIS 2-[place] [address] [place] [address] [place] [address] Referral ID Status Reason Start Date Expiration Date V isits Requested Visits Authorized [id number] Closed Auto-Generate d Referral 11/28/2022 12/28/2023 1 1 [facility] for visit Narrative* Diagnostic Procedure Only (Urgent) - Closed Specialty Diagnoses / Procedures Referred By Contac t Referred To Contact XR IMAGING Diagnoses Injury of right ankle, initial encounter Procedures XR ANKLE GENERAL 3V AP/LAT/OBL RIGHT RADEX ANKLE COMPLETE MINIMUM 3 VIEWS Aris Stephenson APRN.INTELLIGENCE CHIEF [address] [place] [address] [place] [address] Referral ID Status Reason Start Date Expiration Date V isits Requested Visits Authorized [id number] Closed Auto-Generate d Referral 06/08/2024 07/08/2025 1 1 [facility] for visit Narrative* Diagnostic Procedure Only (Routine) - Closed Specialty Diagnoses / Procedures Referred By Contac t Referred To Contact XR IMAGING Diagnoses Arthritis of carpometacarpal (CMC) joint of both thumbs Procedures XR DIGIT GENERAL 3V FRONTAL/LAT/OBL RIGHT RADEX FINGR MINIMUM 2 VIEWS Luc Faustin PA-C [address] [place] [id number] [place] [address] Referral ID Status Reason Start Date Expiration Date V isits Requested Visits Authorized [id number] Closed Auto-Generate d Referral 07/02/2022 08/01/2023 1 1 [facility] for visit Narrative* Diagnostic Procedure Only (Urgent) - Closed Specialty Diagnoses / Procedures Referred By Contac t Referred To Contact XR IMAGING Diagnoses Pain of right thumb Procedures XR DIGIT GENERAL 3V FRONTAL/LAT/OBL RIGHT RADEX FINGR MINIMUM 2 VIEWS Jazmin Palumbo PA [address] [place] [address] [place] [address] Referral ID Status Reason Start Date Expiration Date V isits Requested Visits Authorized [id number] Closed Auto-Generate d Referral 08/09/2024 09/08/2025 1 1 [facility] for visit Narrative* Diagnostic Procedure Only (Routine) - Closed Specialty Diagnoses / Procedures Referred By Contac t Referred To Contact US IMAGING Diagnoses Enlarged thyroid Procedures US THYROID/PARATHYROID US SOFT TISSUE HEAD & NECK REAL TIME IMGE Sandy Sloan A, SECTION WEAVER.INTELLIGENCE CHIEF [address] [place] [address] [place] [address] Referral ID Status Reason Start Date Expiration Date V isits Requested Visits Authorized [id number] Closed Auto-Generate d Referral 07/18/2024 08/17/2025 1 1 [facility] for visit Narrative* MRI/CT (Routine) - Closed Specialty Diagnoses / Procedures Referred By Contac t Referred To Contact CT IMAGING Diagnoses Lung nodules Procedures CT CHEST WO IVCON DIAGNOSTIC COMPUTED TOMOGRAPHY THORAX W/O Jacquie Kay MD [address] [place] [address] Phone: tel: fax: [place] [address] Referral ID Status Reason Start Date Expiration Date V isits Requested Visits Authorized [id number] Closed Auto-Generate d Referral 12/19/2024 02/17/2025 1 1 [facility] for visit Narrative* Diagnostic Procedure Only (Routine) - Closed Specialty Diagnoses / Procedures Referred By Contac t Referred To Contact XR IMAGING Diagnoses Sjogren's syndrome without extraglandular involvement (HCC) Osteopenia, unspecified location Rash and nonspecific skin eruption GUERRA (dyspnea on exertion) Procedures DXA-AXIAL SKELETON DXA BONE DENSITY STUDY 1/> [place] [address] [place] [address] Phone: tel: fax: [place] [address] Referral ID Status Reason Start Date Expiration Date V isits Requested Visits Authorized [id number] Closed Auto-Generate d Referral 12/15/2024 01/14/2026 1 1 [facility] for visit Narrative* Diagnostic Procedure Only (Routine) - Closed Specialty Diagnoses / Procedures Referred By Contac t Referred To Contact XR IMAGING Diagnoses Neck pain Lightheaded Procedures XR CERV OTHER 4V AP/LAT/OBL RADEX SPINE CERVICAL 4 OR 5 VIEWS Andre Santana MD [address] [place] [address] Phone: tel: fax: [place] [address] Referral ID Status Reason Start Date Expiration Date V isits Requested Visits Authorized [id number] Closed Auto-Generate d Referral 04/17/2025 05/17/2026 1 1 [facility] for visit Narrative* MRI/CT (Routine) - Closed Specialty Diagnoses / Procedures Referred By Contac t Referred To Contact MR IMAGING Diagnoses Dysphasia Transient cerebral ischemia, unspecified type Procedures MRI BRAIN WO/W IVCON MRI BRAIN BRAIN STEM W/O W/CONTRAST MATERIAL Andre Santana MD [address] [facility] [place] [address] Phone: tel: fax: [place] [address] Referral ID Status Reason Start Date Expiration Date V isits Requested Visits Authorized [id number] Closed Auto-Generate d Referral 06/21/2025 08/20/2025 1 1 [facility] Summary Purpose Family History No Family History Records Found Relationship Condition Age at Onset Recorded Date/T jose enrique Unknown Family History?Heart Disease Unknown November 24, 2018 5:27pm Family History?Heart Disease Unknown November 24, 2018 5:27pm Relationship Condition Age at Onset Recorded Date/T jose enrique Not Specified Cardiac disease Unknown Advance Directives No Advanced Directives Records FoundDocuments on File Type Date Recorded 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 Advance Directive(s) 10/17/2021 8:45 AM Advance Directive(s) 07/30/2021 7:42 AM Advance Directive(s) 07/26/2021 4:23 PM Advance Directive(s) 07/11/2021 11:43 AM Advance Directive(s) 03/12/2021 8:20 AM Advance Directive(s) 12/28/2020 10:47 AM Advance Directive(s) 12/13/2020 10:06 AM Advance Directive(s) 01/11/2016 1:09 PM Advance Directive(s) 01/10/2016 12:31 PM Advance Directive(s) 12/29/2015 11:36 AM Documents on File Type Date Recorded 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 Advance Directive(s) 10/17/2021 8:45 AM Advance Directive(s) 07/30/2021 7:42 AM Advance Directive(s) 07/26/2021 4:23 PM Advance Directive(s) 07/11/2021 11:43 AM Advance Directive(s) 03/12/2021 8:20 AM Advance Directive(s) 12/28/2020 10:47 AM Advance Directive(s) 12/13/2020 10:06 AM Advance Directive(s) 01/11/2016 1:09 PM Advance Directive(s) 01/10/2016 12:31 PM Advance Directive(s) 12/29/2015 11:36 AM Documents on File Type Date Recorded 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 No October 17, 2024 3:33pm Advance Directive Response Recorded Date/ Time Do you have a Healthcare Power of Chemist? No February 28, 2025 1:28pm Do you have a Healthcare Power of Chemist? No June 05, 2025 5:42am Advance Directive Response Recorded Date/ Time Do you have a Healthcare Power of Chemist? No February 28, 2025 1:28pm Do you have a Healthcare Power of Chemist? No June 05, 2025 11:15am Hospital Course Note HNO ID: [id number] Author: Porfirio liao ([facility]) [place] Service: Hospital Medicine Author Type: Nurse Practitioner [...] (more content not included)... Note HNO ID: [id number] Author: Greg Arciniega Service: Radiology Author Type: Physician Type: Brief Op Note Filed: 12/28/2020 11:56 AM Note Text: BRIEF OPERATIVE / PROCEDURE NOTE LOG ID: [id number] SURGERY/PROCEDURE DATE: 12/28/2020 INCISION/PROCEDURE START TIME: 11:00 AM INCISION CLOSE/PROCEDURE END TIME: 11:30 AM SURGEON(S)/PROCEDURALIST(S) AND FLOWER ARRANGER(S): Surgeon(s) and Role: * Oren Arciniega - [...] PAGER/CONTACT #: Procedure Findings Note HNO ID: [id number] Author: Greg Arciniega Service: Radiology Author Type: Physician Type: Brief Op Note Filed: 12/28/2020 11:56 AM Note Text: BRIEF OPERATIVE / PROCEDURE NOTE LOG ID: [id number] SURGERY/PROCEDURE DATE: 12/28/2020 INCISION/PROCEDURE START TIME: 11:00 AM INCISION CLOSE/PROCEDURE END TIME: 11:30 AM SURGEON(S)/PROCEDURALIST(S) AND FLOWER ARRANGER(S): Surgeon(s) and Role: * Oren Arciniega - [...] (HCC) Procedures CONSULT TO RHEUM/IMMUN DISEASE OFFICE/OUTPATIENT [facility] 60-74 MINUTES Luc Faustin PA-C [address] [place] [address] Referral ID Status Reason Start Date Expiration Date Visits Requested Visits Authorized [id number] Authorized PCP Requested Referral 07/04/2022 07/04/2023 1 1 Specialty Diagnoses / Procedures Referred By Contac t Referred To Contact [facility] Diagnoses Sciatica, right side Procedures PT REHAB FOLLOW UP ORDER PT REHAB FOLLOW UP ORDER THERAPEUTIC EXERCISES RE, EA 15 MIN. Samreen Powell, PT [facility] [address] [place] [address] Referral ID Status Reason Start Date Expiration Date Visits Requested Visits Authorized [id number] Pending Review PCP Requested Referral Auto-Generate d Referral 2 11/25/2022 1 1 Specialty Diagnoses / Procedures Referred By Contac t Referred To Contact MR IMAGING Diagnoses Right lumbar radiculitis Lumbar stenosis with neurogenic claudication Intractable pain Foot drop, left Procedures MRI LUMBAR SPINE WO IVCON MRI SPINAL CANAL LUMBAR W/O CONTRAST MATERIAL Luc Faustin PA-C [address] [place] [address] Mr Imaging Referral ID Status Reason Start Date Expiration Date Visits Requested Visits Authorized [id number] Pending Review Auto-Genera ken Referral Patient Cleared - Admin/Chair man/Directo r advise to proceed 2 10/02/2023 1 1 Specialty Diagnoses / Procedures Referred By Contac t Referred To Contact Pain Management Diagnoses Sciatica, right side Procedures CONSULT TO PAIN MGT OFFICE/OUTPATIENT NEW HIGH MDM 60-74 MINUTES Luc Faustin PA-C [address] [place] [address] Referral ID Status Reason Start Date Expiration Date Visits Requested Visits Authorized [id number] Authorized PCP Requested Referral 2 08/27/2023 1 1 Specialty Diagnoses / Procedures Referred By Contac t Referred To Contact CT IMAGING Diagnoses Chest pain, unspecified type Procedures CT CHEST WO IVCON DIAGNOSTIC COMPUTED TOMOGRAPHY THORAX W/O CNTRST Luc Faustin PA-C [address] [place] [address] Ct [address] [facility] Referral ID Status Reason Start Date Expiration Date Visits Requested Visits Authorized [id number] Pending Review Auto-Generat ed Referral 07/10/2023 08/08/2024 1 1 Specialty Diagnoses / Procedures Referred By Contac t Referred To Contact CT IMAGING Diagnoses Microscopic hematuria Procedures CT UROGRAM WO/W IVCON CT ABD & PELVIS W/O CONTRST 1+ BODY Evan Watson PA-C [address] [id number] Imaging [facility] Referral ID Status Reason Start Date Expiration Date Visits Requested Visits Authorized [id number] Pending Review Auto-Generat ed Referral 3 09/23/2024 1 1 Specialty Diagnoses / Procedures Referred By Contac t Referred To Contact MR IMAGING Diagnoses Right lumbar radiculitis Lumbar stenosis with neurogenic claudication Intractable pain Foot drop, left Procedures MRI LUMBAR SPINE WO IVCON MRI SPINAL CANAL LUMBAR W/O CONTRAST MATERIAL Luc Faustin PA-C [address] [place] [address] [place] [address] Referral ID Status Reason Start Date Expiration Date V isits Requested Visits Authorized [id number] Closed Auto-Generat ed Referral Patient Cleared - Admin/Chairm an/Director advise to proceed or did not respond 09/05/2022 10/05/2022 1 1 Specialty Diagnoses / Procedures Referred By Contac t Referred To Contact CT IMAGING Diagnoses Chest pain on breathing Procedures CT CHEST WO IVCON DIAGNOSTIC COMPUTED TOMOGRAPHY THORAX W/O CNTRST Luc Faustin PA-C [address] [place] [address] [place] [address] Referral ID Status Reason Start Date Expiration Date V isits Requested Visits Authorized [id number] Closed Auto-Generate d Referral 07/02/2023 07/31/2024 1 1 Referral ID Status Reason Start Date Expiration Date V isits Requested Visits Authorized [id number] Closed Auto-Generate d Referral 08/27/2023 09/26/2023 1 1 Specialty Diagnoses / Procedures Referred By Contac t Referred To Contact Diagnoses Actinic keratosis Sandy Holm APRN.INTELLIGENCE CHIEF [address] [place] [id number] Referral ID Status Reason Start Date Expiration Date V isits Requested Visits Authorized [id number] Pending Review 1 1 Specialty Diagnoses / Procedures Referred By Contac t Referred To Contact Dermatology Diagnoses Dermatitis Procedures CONSULT TO DERMATOLOGY Andre Santana MD [address] [place] [address] Referral ID Status Reason Start Date Expiration Date Visits Requested Visits Authorized [id number] Ref Not Required PCP Requested Referral 08/12/2024 08/12/2025 1 1 Specialty Diagnoses / Procedures Referred By Contac t Referred To Contact Endocrinology Diagnoses Thyroid nodule greater than or equal to 1 cm in diameter incidentally noted on imaging study Procedures CONSULT TO ENDOCRINOLOGY OFFICE/OUTPATIENT [facility] 60 MINUTES Andre Santana MD [address] [place] [address] Referral ID Status Reason Start Date Expiration Date Visits Requested Visits Authorized [id number] Authorized PCP Requested Referral 11/28/2024 11/28/2025 1 1 Specialty Diagnoses / Procedures Referred By Contac t Referred To Contact CT IMAGING Diagnoses Lung nodules Procedures CT CHEST WO IVCON DIAGNOSTIC COMPUTED TOMOGRAPHY THORAX W/O CNTRST Jacquie Evans MD [address] [place] [address] [place] [address] Referral ID Status Reason Start Date Expiration Date Visits Requested Visits Authorized [id number] Pending Review Auto-Generat ed Referral 12/09/2024 01/08/2026 1 1 Chief Complaint and Reason for Visit Chief Complaint Admit Date PLEASE FAX COPY TO DR SANTANA AND DR RHODES [id number] October 10, 2024 9:24am PCI October 17, 2024 2 :17pm PCI November 07, 2024 3:15pm PCI December 09, 2024 3 :15pm PCI January 06, 2025 3:15pm PCI January 13, 2025 3:15 pm Chief Complaint Admit Date cp February 28, 2025 1:1 2pm CONFUSION June 05, 2025 10:3 4am Chief Complaint Admit Date cp February 28, 2025 1:1 2pm CONFUSION June 05, 2025 10:3 4am CONFUSION June 05, 2025 11:2 2am CONFUSION June 06, 2025 10:5 0am Reason for Visit Admit Date Confusion June 05, 2025 10:3 4am Palpitations June 05, 2025 10:3 4am Additional Source Comments INFORMATION SOURCE (unrecogn ized section and content) DATE CREATED AUTHOR 05/22/2019 [facility] DATE CREATED AUTHOR AUTHOR'S ORGANIZ ATION 10/19/2020 [facility] DATE CREATED AUTHOR AUTHOR'S ORGANIZ ATION 01/05/2021 [facility] DATE CREATED AUTHOR AUTHOR'S ORGANIZ ATION 03/23/2021 [facility] DATE CREATED AUTHOR AUTHOR'S ORGANIZ ATION 08/28/2023 [facility] DATE CREATED AUTHOR AUTHOR'S ORGANIZ ATION 09/27/2024 [facility] DATE CREATED AUTHOR AUTHOR'S ORGANIZ ATION 06/24/2025 [facility] DATE CREATED AUTHOR AUTHOR'S ORGANIZ ATION 06/26/2025 [facility] nt DATE CREATED AUTHOR AUTHOR'S ORGANIZ ATION 07/06/2025 [facility] Comments (unrecognize d section and content) In the event this informatio n is protected by the Federal Confidentiality of Alcohol and Drug Abuse Patient Records regulations: The Federal rules restrict any use of the information to criminally investigate or prosecute any alcohol or drug abuse patient.[facility] the event this information is protected by the Federal Confidentiality of Alcohol and Drug Abuse Patient Records regulations: The Federal rules restrict any use of the information to criminally investigate or prosecute any alcohol or drug abuse patient.[facility] HospitalIn the event this information is protected by the Federal Confidentiality of Alcohol and Drug Abuse Patient Records regulations: The Federal rules restrict any use of the information to criminally investigate or prosecute any alcohol or drug abuse patient.[facility] HospitalIn the event this information is protected by the Federal Confidentiality of Alcohol and Drug Abuse Patient Records regulations: The Federal rules restrict any use of the information to criminally investigate or prosecute any alcohol or drug abuse patient.[facility] HospitalIn the event this information is protected by the Federal Confidentiality of Alcohol and Drug Abuse Patient Records regulations: The Federal rules restrict any use of the information to criminally investigate or prosecute any alcohol or drug abuse patient.[facility] HospitalIn the event this information is protected by the Federal Confidentiality of Alcohol and Drug Abuse Patient Records regulations: The Federal rules restrict any use of the information to criminally investigate or prosecute any alcohol or drug abuse patient.[facility] HospitalIn the event this information is protected by the Federal Confidentiality of Alcohol and Drug Abuse Patient Records regulations: The Federal rules restrict any use of the information to criminally investigate or prosecute any alcohol or drug abuse patient.[facility] HospitalIn the event this information is protected by the Federal Confidentiality of Alcohol and Drug Abuse Patient Records regulations: The Federal rules restrict any use of the information to criminally investigate or prosecute any alcohol or drug abuse patient.[facility] HospitalIn the event this information is protected by the Federal Confidentiality of Alcohol and Drug Abuse Patient Records regulations: The Federal rules restrict any use of the information to criminally investigate or prosecute any alcohol or drug abuse patient.[facility] HospitalIn the event this information is protected by the Federal Confidentiality of Alcohol and Drug Abuse Patient Records regulations: The Federal rules restrict any use of the information to criminally investigate or prosecute any alcohol or drug abuse patient.[facility] HospitalIn the event this information is protected by the Federal Confidentiality of Alcohol and Drug Abuse Patient Records regulations: The Federal rules restrict any use of the information to criminally investigate or prosecute any alcohol or drug abuse patient.[facility] HospitalIn the event this information is protected by the Federal Confidentiality of Alcohol and Drug Abuse Patient Records regulations: The Federal rules restrict any use of the information to criminally investigate or prosecute any alcohol or drug abuse patient.[facility] HospitalIn the event this information is protected by the Federal Confidentiality of Alcohol and Drug Abuse Patient Records regulations: The Federal rules restrict any use of the information to criminally investigate or prosecute any alcohol or drug abuse patient.[facility] HospitalIn the event this information is protected by the Federal Confidentiality of Alcohol and Drug Abuse Patient Records regulations: The Federal rules restrict any use of the information to criminally investigate or prosecute any alcohol or drug abuse patient.[facility] HospitalIn the event this information is protected by the Federal Confidentiality of Alcohol and Drug Abuse Patient Records regulations: The Federal rules restrict any use of the information to criminally investigate or prosecute any alcohol or drug abuse patient.[facility] HospitalIn the event this information is protected by the Federal Confidentiality of Alcohol and Drug Abuse Patient Records regulations: The Federal rules restrict any use of the information to criminally investigate or prosecute any alcohol or drug abuse patient.[facility] HospitalIn the event this information is protected by the Federal Confidentiality of Alcohol and Drug Abuse Patient Records regulations: The Federal rules restrict any use of the information to criminally investigate or prosecute any alcohol or drug abuse patient.[facility] HospitalIn the event this information is protected by the Federal Confidentiality of Alcohol and Drug Abuse Patient Records regulations: The Federal rules restrict any use of the information to criminally investigate or prosecute any alcohol or drug abuse patient.[facility] HospitalIn the event this information is protected by the Federal Confidentiality of Alcohol and Drug Abuse Patient Records regulations: The Federal rules restrict any use of the information to criminally investigate or prosecute any alcohol or drug abuse patient.[facility] HospitalIn the event this information is protected by the Federal Confidentiality of Alcohol and Drug Abuse Patient Records regulations: The Federal rules restrict any use of the information to criminally investigate or prosecute any alcohol or drug abuse patient.[facility] HospitalIn the event this information is protected by the Federal Confidentiality of Alcohol and Drug Abuse Patient Records regulations: The Federal rules restrict any use of the information to criminally investigate or prosecute any alcohol or drug abuse patient.[facility] HospitalIn the event this information is protected by the Federal Confidentiality of Alcohol and Drug Abuse Patient Records regulations: The Federal rules restrict any use of the information to criminally investigate or prosecute any alcohol or drug abuse patient.[facility] HospitalIn the event this information is protected by the Federal Confidentiality of Alcohol and Drug Abuse Patient Records regulations: The Federal rules restrict any use of the information to criminally investigate or prosecute any alcohol or drug abuse patient.[facility] HospitalIn the event this information is protected by the Federal Confidentiality of Alcohol and Drug Abuse Patient Records regulations: The Federal rules restrict any use of the information to criminally investigate or prosecute any alcohol or drug abuse patient.[facility] HospitalIn the event this information is protected by the Federal Confidentiality of Alcohol and Drug Abuse Patient Records regulations: The Federal rules restrict any use of the information to criminally investigate or prosecute any alcohol or drug abuse patient.[facility] HospitalIn the event this information is protected by the Federal Confidentiality of Alcohol and Drug Abuse Patient Records regulations: The Federal rules restrict any use of the information to criminally investigate or prosecute any alcohol or drug abuse patient.[facility] HospitalIn the event this information is protected by the Federal Confidentiality of Alcohol and Drug Abuse Patient Records regulations: The Federal rules restrict any use of the information to criminally investigate or prosecute any alcohol or drug abuse patient.[facility] HospitalIn the event this information is protected by the Federal Confidentiality of Alcohol and Drug Abuse Patient Records regulations: The Federal rules restrict any use of the information to criminally investigate or prosecute any alcohol or drug abuse patient.[facility] HospitalIn the event this information is protected by the Federal Confidentiality of Alcohol and Drug Abuse Patient Records regulations: The Federal rules restrict any use of the information to criminally investigate or prosecute any alcohol or drug abuse patient.[facility] HospitalIn the event this information is protected by the Federal Confidentiality of Alcohol and Drug Abuse Patient Records regulations: The Federal rules restrict any use of the information to criminally investigate or prosecute any alcohol or drug abuse patient.[facility] HospitalIn the event this information is protected by the Federal Confidentiality of Alcohol and Drug Abuse Patient Records regulations: The Federal rules restrict any use of the information to criminally investigate or prosecute any alcohol or drug abuse patient.[facility] HospitalIn the event this information is protected by the Federal Confidentiality of Alcohol and Drug Abuse Patient Records regulations: The Federal rules restrict any use of the information to criminally investigate or prosecute any alcohol or drug abuse patient.[facility] HospitalIn the event this information is protected by the Federal Confidentiality of Alcohol and Drug Abuse Patient Records regulations: The Federal rules restrict any use of the information to criminally investigate or prosecute any alcohol or drug abuse patient.[facility] HospitalIn the event this information is protected by the Federal Confidentiality of Alcohol and Drug Abuse Patient Records regulations: The Federal rules restrict any use of the information to criminally investigate or prosecute any alcohol or drug abuse patient.[facility] HospitalIn the event this information is protected by the Federal Confidentiality of Alcohol and Drug Abuse Patient Records regulations: The Federal rules restrict any use of the information to criminally investigate or prosecute any alcohol or drug abuse patient.[facility] HospitalIn the event this information is protected by the Federal Confidentiality of Alcohol and Drug Abuse Patient Records regulations: The Federal rules restrict any use of the information to criminally investigate or prosecute any alcohol or drug abuse patient.[facility] HospitalIn the event this information is protected by the Federal Confidentiality of Alcohol and Drug Abuse Patient Records regulations: The Federal rules restrict any use of the information to criminally investigate or prosecute any alcohol or drug abuse patient.[facility] HospitalIn the event this information is protected by the Federal Confidentiality of Alcohol and Drug Abuse Patient Records regulations: The Federal rules restrict any use of the information to criminally investigate or prosecute any alcohol or drug abuse patient.[facility] HospitalIn the event this information is protected by the Federal Confidentiality of Alcohol and Drug Abuse Patient Records regulations: The Federal rules restrict any use of the information to criminally investigate or prosecute any alcohol or drug abuse patient.[facility] HospitalIn the event this information is protected by the Federal Confidentiality of Alcohol and Drug Abuse Patient Records regulations: The Federal rules restrict any use of the information to criminally investigate or prosecute any alcohol or drug abuse patient.[facility] HospitalIn the event this information is protected by the Federal Confidentiality of Alcohol and Drug Abuse Patient Records regulations: The Federal rules restrict any use of the information to criminally investigate or prosecute any alcohol or drug abuse patient.[facility] HospitalIn the event this information is protected by the Federal Confidentiality of Alcohol and Drug Abuse Patient Records regulations: The Federal rules restrict any use of the information to criminally investigate or prosecute any alcohol or drug abuse patient.[facility] HospitalIn the event this information is protected by the Federal Confidentiality of Alcohol and Drug Abuse Patient Records regulations: The Federal rules restrict any use of the information to criminally investigate or prosecute any alcohol or drug abuse patient.[facility] HospitalIn the event this information is protected by the Federal Confidentiality of Alcohol and Drug Abuse Patient Records regulations: The Federal rules restrict any use of the information to criminally investigate or prosecute any alcohol or drug abuse patient.[facility] HospitalIn the event this information is protected by the Federal Confidentiality of Alcohol and Drug Abuse Patient Records regulations: The Federal rules restrict any use of the information to criminally investigate or prosecute any alcohol or drug abuse patient.[facility] HospitalIn the event this information is protected by the Federal Confidentiality of Alcohol and Drug Abuse Patient Records regulations: The Federal rules restrict any use of the information to criminally investigate or prosecute any alcohol or drug abuse patient.[facility] HospitalIn the event this information is protected by the Federal Confidentiality of Alcohol and Drug Abuse Patient Records regulations: The Federal rules restrict any use of the information to criminally investigate or prosecute any alcohol or drug abuse patient.[facility] HospitalIn the event this information is protected by the Federal Confidentiality of Alcohol and Drug Abuse Patient Records regulations: The Federal rules restrict any use of the information to criminally investigate or prosecute any alcohol or drug abuse patient.[facility] HospitalIn the event this information is protected by the Federal Confidentiality of Alcohol and Drug Abuse Patient Records regulations: The Federal rules restrict any use of the information to criminally investigate or prosecute any alcohol or drug abuse patient.[facility] HospitalIn the event this information is protected by the Federal Confidentiality of Alcohol and Drug Abuse Patient Records regulations: The Federal rules restrict any use of the information to criminally investigate or prosecute any alcohol or drug abuse patient.[facility] HospitalIn the event this information is protected by the Federal Confidentiality of Alcohol and Drug Abuse Patient Records regulations: The Federal rules restrict any use of the information to criminally investigate or prosecute any alcohol or drug abuse patient.[facility] HospitalIn the event this information is protected by the Federal Confidentiality of Alcohol and Drug Abuse Patient Records regulations: The Federal rules restrict any use of the information to criminally investigate or prosecute any alcohol or drug abuse patient.[facility] HospitalIn the event this information is protected by the Federal Confidentiality of Alcohol and Drug Abuse Patient Records regulations: The Federal rules restrict any use of the information to criminally investigate or prosecute any alcohol or drug abuse patient.[facility] HospitalIn the event this information is protected by the Federal Confidentiality of Alcohol and Drug Abuse Patient Records regulations: The Federal rules restrict any use of the information to criminally investigate or prosecute any alcohol or drug abuse patient.[facility] HospitalIn the event this information is protected by the Federal Confidentiality of Alcohol and Drug Abuse Patient Records regulations: The Federal rules restrict any use of the information to criminally investigate or prosecute any alcohol or drug abuse patient.[facility] HospitalIn the event this information is protected by the Federal Confidentiality of Alcohol and Drug Abuse Patient Records regulations: The Federal rules restrict any use of the information to criminally investigate or prosecute any alcohol or drug abuse patient.[facility] HospitalIn the event this information is protected by the Federal Confidentiality of Alcohol and Drug Abuse Patient Records regulations: The Federal rules restrict any use of the information to criminally investigate or prosecute any alcohol or drug abuse patient.[facility] HospitalIn the event this information is protected by the Federal Confidentiality of Alcohol and Drug Abuse Patient Records regulations: The Federal rules restrict any use of the information to criminally investigate or prosecute any alcohol or drug abuse patient.[facility] HospitalIn the event this information is protected by the Federal Confidentiality of Alcohol and Drug Abuse Patient Records regulations: The Federal rules restrict any use of the information to criminally investigate or prosecute any alcohol or drug abuse patient.[facility] HospitalIn the event this information is protected by the Federal Confidentiality of Alcohol and Drug Abuse Patient Records regulations: The Federal rules restrict any use of the information to criminally investigate or prosecute any alcohol or drug abuse patient.[facility] HospitalIn the event this information is protected by the Federal Confidentiality of Alcohol and Drug Abuse Patient Records regulations: The Federal rules restrict any use of the information to criminally investigate or prosecute any alcohol or drug abuse patient.[facility] HospitalIn the event this information is protected by the Federal Confidentiality of Alcohol and Drug Abuse Patient Records regulations: The Federal rules restrict any use of the information to criminally investigate or prosecute any alcohol or drug abuse patient.[facility] HospitalIn the event this information is protected by the Federal Confidentiality of Alcohol and Drug Abuse Patient Records regulations: The Federal rules restrict any use of the information to criminally investigate or prosecute any alcohol or drug abuse patient.[facility] HospitalIn the event this information is protected by the Federal Confidentiality of Alcohol and Drug Abuse Patient Records regulations: The Federal rules restrict any use of the information to criminally investigate or prosecute any alcohol or drug abuse patient.[facility] HospitalIn the event this information is protected by the Federal Confidentiality of Alcohol and Drug Abuse Patient Records regulations: The Federal rules restrict any use of the information to criminally investigate or prosecute any alcohol or drug abuse patient.[facility] HospitalIn the event this information is protected by the Federal Confidentiality of Alcohol and Drug Abuse Patient Records regulations: The Federal rules restrict any use of the information to criminally investigate or prosecute any alcohol or drug abuse patient.[facility] HospitalIn the event this information is protected by the Federal Confidentiality of Alcohol and Drug Abuse Patient Records regulations: The Federal rules restrict any use of the information to criminally investigate or prosecute any alcohol or drug abuse patient.[facility] HospitalIn the event this information is protected by the Federal Confidentiality of Alcohol and Drug Abuse Patient Records regulations: The Federal rules restrict any use of the information to criminally investigate or prosecute any alcohol or drug abuse patient.[facility] HospitalIn the event this information is protected by the Federal Confidentiality of Alcohol and Drug Abuse Patient Records regulations: The Federal rules restrict any use of the information to criminally investigate or prosecute any alcohol or drug abuse patient.[facility] HospitalIn the event this information is protected by the Federal Confidentiality of Alcohol and Drug Abuse Patient Records regulations: The Federal rules restrict any use of the information to criminally investigate or prosecute any alcohol or drug abuse patient.[facility] HospitalIn the event this information is protected by the Federal Confidentiality of Alcohol and Drug Abuse Patient Records regulations: The Federal rules restrict any use of the information to criminally investigate or prosecute any alcohol or drug abuse patient.[facility] HospitalIn the event this information is protected by the Federal Confidentiality of Alcohol and Drug Abuse Patient Records regulations: The Federal rules restrict any use of the information to criminally investigate or prosecute any alcohol or drug abuse patient.[facility] HospitalIn the event this information is protected by the Federal Confidentiality of Alcohol and Drug Abuse Patient Records regulations: The Federal rules restrict any use of the information to criminally investigate or prosecute any alcohol or drug abuse patient.[facility] HospitalIn the event this information is protected by the Federal Confidentiality of Alcohol and Drug Abuse Patient Records regulations: The Federal rules restrict any use of the information to criminally investigate or prosecute any alcohol or drug abuse patient.[facility] HospitalIn the event this information is protected by the Federal Confidentiality of Alcohol and Drug Abuse Patient Records regulations: The Federal rules restrict any use of the information to criminally investigate or prosecute any alcohol or drug abuse patient.[facility] HospitalIn the event this information is protected by the Federal Confidentiality of Alcohol and Drug Abuse Patient Records regulations: The Federal rules restrict any use of the information to criminally investigate or prosecute any alcohol or drug abuse patient.[facility] HospitalIn the event this information is protected by the Federal Confidentiality of Alcohol and Drug Abuse Patient Records regulations: The Federal rules restrict any use of the information to criminally investigate or prosecute any alcohol or drug abuse patient.[facility] HospitalIn the event this information is protected by the Federal Confidentiality of Alcohol and Drug Abuse Patient Records regulations: The Federal rules restrict any use of the information to criminally investigate or prosecute any alcohol or drug abuse patient.[facility] HospitalIn the event this information is protected by the Federal Confidentiality of Alcohol and Drug Abuse Patient Records regulations: The Federal rules restrict any use of the information to criminally investigate or prosecute any alcohol or drug abuse patient.[facility] HospitalIn the event this information is protected by the Federal Confidentiality of Alcohol and Drug Abuse Patient Records regulations: The Federal rules restrict any use of the information to criminally investigate or prosecute any alcohol or drug abuse patient.[facility] HospitalIn the event this information is protected by the Federal Confidentiality of Alcohol and Drug Abuse Patient Records regulations: The Federal rules restrict any use of the information to criminally investigate or prosecute any alcohol or drug abuse patient.[facility] HospitalIn the event this information is protected by the Federal Confidentiality of Alcohol and Drug Abuse Patient Records regulations: The Federal rules restrict any use of the information to criminally investigate or prosecute any alcohol or drug abuse patient.[facility] HospitalIn the event this information is protected by the Federal Confidentiality of Alcohol and Drug Abuse Patient Records regulations: The Federal rules restrict any use of the information to criminally investigate or prosecute any alcohol or drug abuse patient.[facility] HospitalIn the event this information is protected by the Federal Confidentiality of Alcohol and Drug Abuse Patient Records regulations: The Federal rules restrict any use of the information to criminally investigate or prosecute any alcohol or drug abuse patient.[facility] HospitalIn the event this information is protected by the Federal Confidentiality of Alcohol and Drug Abuse Patient Records regulations: The Federal rules restrict any use of the information to criminally investigate or prosecute any alcohol or drug abuse patient.[facility] HospitalIn the event this information is protected by the Federal Confidentiality of Alcohol and Drug Abuse Patient Records regulations: The Federal rules restrict any use of the information to criminally investigate or prosecute any alcohol or drug abuse patient.[facility] HospitalIn the event this information is protected by the Federal Confidentiality of Alcohol and Drug Abuse Patient Records regulations: The Federal rules restrict any use of the information to criminally investigate or prosecute any alcohol or drug abuse patient.[facility] HospitalIn the event this information is protected by the Federal Confidentiality of Alcohol and Drug Abuse Patient Records regulations: The Federal rules restrict any use of the information to criminally investigate or prosecute any alcohol or drug abuse patient.[facility] HospitalIn the event this information is protected by the Federal Confidentiality of Alcohol and Drug Abuse Patient Records regulations: The Federal rules restrict any use of the information to criminally investigate or prosecute any alcohol or drug abuse patient.[facility] HospitalIn the event this information is protected by the Federal Confidentiality of Alcohol and Drug Abuse Patient Records regulations: The Federal rules restrict any use of the information to criminally investigate or prosecute any alcohol or drug abuse patient.[facility] HospitalIn the event this information is protected by the Federal Confidentiality of Alcohol and Drug Abuse Patient Records regulations: The Federal rules restrict any use of the information to criminally investigate or prosecute any alcohol or drug abuse patient.[facility] HospitalIn the event this information is protected by the Federal Confidentiality of Alcohol and Drug Abuse Patient Records regulations: The Federal rules restrict any use of the information to criminally investigate or prosecute any alcohol or drug abuse patient.[facility] HospitalIn the event this information is protected by the Federal Confidentiality of Alcohol and Drug Abuse Patient Records regulations: The Federal rules restrict any use of the information to criminally investigate or prosecute any alcohol or drug abuse patient.[facility] HospitalIn the event this information is protected by the Federal Confidentiality of Alcohol and Drug Abuse Patient Records regulations: The Federal rules restrict any use of the information to criminally investigate or prosecute any alcohol or drug abuse patient.[facility] HospitalIn the event this information is protected by the Federal Confidentiality of Alcohol and Drug Abuse Patient Records regulations: The Federal rules restrict any use of the information to criminally investigate or prosecute any alcohol or drug abuse patient.[facility] HospitalIn the event this information is protected by the Federal Confidentiality of Alcohol and Drug Abuse Patient Records regulations: The Federal rules restrict any use of the information to criminally investigate or prosecute any alcohol or drug abuse patient.[facility] HospitalIn the event this information is protected by the Federal Confidentiality of Alcohol and Drug Abuse Patient Records regulations: The Federal rules restrict any use of the information to criminally investigate or prosecute any alcohol or drug abuse patient.[facility] HospitalIn the event this information is protected by the Federal Confidentiality of Alcohol and Drug Abuse Patient Records regulations: The Federal rules restrict any use of the information to criminally investigate or prosecute any alcohol or drug abuse patient.[facility] HospitalIn the event this information is protected by the Federal Confidentiality of Alcohol and Drug Abuse Patient Records regulations: The Federal rules restrict any use of the information to criminally investigate or prosecute any alcohol or drug abuse patient.[facility] HospitalIn the event this information is protected by the Federal Confidentiality of Alcohol and Drug Abuse Patient Records regulations: The Federal rules restrict any use of the information to criminally investigate or prosecute any alcohol or drug abuse patient.[facility] HospitalIn the event this information is protected by the Federal Confidentiality of Alcohol and Drug Abuse Patient Records regulations: The Federal rules restrict any use of the information to criminally investigate or prosecute any alcohol or drug abuse patient.[facility] HospitalIn the event this information is protected by the Federal Confidentiality of Alcohol and Drug Abuse Patient Records regulations: The Federal rules restrict any use of the information to criminally investigate or prosecute any alcohol or drug abuse patient.[facility] HospitalIn the event this information is protected by the Federal Confidentiality of Alcohol and Drug Abuse Patient Records regulations: The Federal rules restrict any use of the information to criminally investigate or prosecute any alcohol or drug abuse patient.[facility] HospitalIn the event this information is protected by the Federal Confidentiality of Alcohol and Drug Abuse Patient Records regulations: The Federal rules restrict any use of the information to criminally investigate or prosecute any alcohol or drug abuse patient.[facility] HospitalIn the event this information is protected by the Federal Confidentiality of Alcohol and Drug Abuse Patient Records regulations: The Federal rules restrict any use of the information to criminally investigate or prosecute any alcohol or drug abuse patient.[facility] HospitalIn the event this information is protected by the Federal Confidentiality of Alcohol and Drug Abuse Patient Records regulations: The Federal rules restrict any use of the information to criminally investigate or prosecute any alcohol or drug abuse patient.[facility] HospitalIn the event this information is protected by the Federal Confidentiality of Alcohol and Drug Abuse Patient Records regulations: The Federal rules restrict any use of the information to criminally investigate or prosecute any alcohol or drug abuse patient.[facility] HospitalIn the event this information is protected by the Federal Confidentiality of Alcohol and Drug Abuse Patient Records regulations: The Federal rules restrict any use of the information to criminally investigate or prosecute any alcohol or drug abuse patient.[facility] HospitalIn the event this information is protected by the Federal Confidentiality of Alcohol and Drug Abuse Patient Records regulations: The Federal rules restrict any use of the information to criminally investigate or prosecute any alcohol or drug abuse patient.[facility] HospitalIn the event this information is protected by the Federal Confidentiality of Alcohol and Drug Abuse Patient Records regulations: The Federal rules restrict any use of the information to criminally investigate or prosecute any alcohol or drug abuse patient.[facility] HospitalIn the event this information is protected by the Federal Confidentiality of Alcohol and Drug Abuse Patient Records regulations: The Federal rules restrict any use of the information to criminally investigate or prosecute any alcohol or drug abuse patient.[facility] HospitalIn the event this information is protected by the Federal Confidentiality of Alcohol and Drug Abuse Patient Records regulations: The Federal rules restrict any use of the information to criminally investigate or prosecute any alcohol or drug abuse patient.[facility] HospitalIn the event this information is protected by the Federal Confidentiality of Alcohol and Drug Abuse Patient Records regulations: The Federal rules restrict any use of the information to criminally investigate or prosecute any alcohol or drug abuse patient.[facility] HospitalIn the event this information is protected by the Federal Confidentiality of Alcohol and Drug Abuse Patient Records regulations: The Federal rules restrict any use of the information to criminally investigate or prosecute any alcohol or drug abuse patient.[facility] HospitalIn the event this information is protected by the Federal Confidentiality of Alcohol and Drug Abuse Patient Records regulations: The Federal rules restrict any use of the information to criminally investigate or prosecute any alcohol or drug abuse patient.[facility] HospitalIn the event this information is protected by the Federal Confidentiality of Alcohol and Drug Abuse Patient Records regulations: The Federal rules restrict any use of the information to criminally investigate or prosecute any alcohol or drug abuse patient.[facility] HospitalIn the event this information is protected by the Federal Confidentiality of Alcohol and Drug Abuse Patient Records regulations: The Federal rules restrict any use of the information to criminally investigate or prosecute any alcohol or drug abuse patient.[facility] HospitalIn the event this information is protected by the Federal Confidentiality of Alcohol and Drug Abuse Patient Records regulations: The Federal rules restrict any use of the information to criminally investigate or prosecute any alcohol or drug abuse patient.[facility] HospitalIn the event this information is protected by the Federal Confidentiality of Alcohol and Drug Abuse Patient Records regulations: The Federal rules restrict any use of the information to criminally investigate or prosecute any alcohol or drug abuse patient.[facility] HospitalIn the event this information is protected by the Federal Confidentiality of Alcohol and Drug Abuse Patient Records regulations: The Federal rules restrict any use of the information to criminally investigate or prosecute any alcohol or drug abuse patient.[facility] HospitalIn the event this information is protected by the Federal Confidentiality of Alcohol and Drug Abuse Patient Records regulations: The Federal rules restrict any use of the information to criminally investigate or prosecute any alcohol or drug abuse patient.[facility] HospitalIn the event this information is protected by the Federal Confidentiality of Alcohol and Drug Abuse Patient Records regulations: The Federal rules restrict any use of the information to criminally investigate or prosecute any alcohol or drug abuse patient.[facility] HospitalIn the event this information is protected by the Federal Confidentiality of Alcohol and Drug Abuse Patient Records regulations: The Federal rules restrict any use of the information to criminally investigate or prosecute any alcohol or drug abuse patient.[facility] HospitalIn the event this information is protected by the Federal Confidentiality of Alcohol and Drug Abuse Patient Records regulations: The Federal rules restrict any use of the information to criminally investigate or prosecute any alcohol or drug abuse patient.[facility] HospitalIn the event this information is protected by the Federal Confidentiality of Alcohol and Drug Abuse Patient Records regulations: The Federal rules restrict any use of the information to criminally investigate or prosecute any alcohol or drug abuse patient.[facility] HospitalIn the event this information is protected by the Federal Confidentiality of Alcohol and Drug Abuse Patient Records regulations: The Federal rules restrict any use of the information to criminally investigate or prosecute any alcohol or drug abuse patient.[facility] HospitalIn the event this information is protected by the Federal Confidentiality of Alcohol and Drug Abuse Patient Records regulations: The Federal rules restrict any use of the information to criminally investigate or prosecute any alcohol or drug abuse patient.[facility] HospitalIn the event this information is protected by the Federal Confidentiality of Alcohol and Drug Abuse Patient Records regulations: The Federal rules restrict any use of the information to criminally investigate or prosecute any alcohol or drug abuse patient.[facility] HospitalIn the event this information is protected by the Federal Confidentiality of Alcohol and Drug Abuse Patient Records regulations: The Federal rules restrict any use of the information to criminally investigate or prosecute any alcohol or drug abuse patient.[facility] HospitalIn the event this information is protected by the Federal Confidentiality of Alcohol and Drug Abuse Patient Records regulations: The Federal rules restrict any use of the information to criminally investigate or prosecute any alcohol or drug abuse patient.[facility] HospitalIn the event this information is protected by the Federal Confidentiality of Alcohol and Drug Abuse Patient Records regulations: The Federal rules restrict any use of the information to criminally investigate or prosecute any alcohol or drug abuse patient.[facility] HospitalIn the event this information is protected by the Federal Confidentiality of Alcohol and Drug Abuse Patient Records regulations: The Federal rules restrict any use of the information to criminally investigate or prosecute any alcohol or drug abuse patient.[facility] HospitalIn the event this information is protected by the Federal Confidentiality of Alcohol and Drug Abuse Patient Records regulations: The Federal rules restrict any use of the information to criminally investigate or prosecute any alcohol or drug abuse patient.[facility] HospitalIn the event this information is protected by the Federal Confidentiality of Alcohol and Drug Abuse Patient Records regulations: The Federal rules restrict any use of the information to criminally investigate or prosecute any alcohol or drug abuse patient.[facility] HospitalIn the event this information is protected by the Federal Confidentiality of Alcohol and Drug Abuse Patient Records regulations: The Federal rules restrict any use of the information to criminally investigate or prosecute any alcohol or drug abuse patient.[facility] HospitalIn the event this information is protected by the Federal Confidentiality of Alcohol and Drug Abuse Patient Records regulations: The Federal rules restrict any use of the information to criminally investigate or prosecute any alcohol or drug abuse patient.[facility] HospitalIn the event this information is protected by the Federal Confidentiality of Alcohol and Drug Abuse Patient Records regulations: The Federal rules restrict any use of the information to criminally investigate or prosecute any alcohol or drug abuse patient.[facility] Reason for Visit (unrecogniz ed section and content) Reason Comments Physical Therapy Specialty Diagnoses / Procedures Referred By Thea cantu Referred To Contact [facility] Diagnoses Sciatica, right side Procedures PT REHAB FOLLOW UP ORDER PT REHAB FOLLOW UP ORDER THERAPEUTIC EXERCISES RE, EA 15 MIN. Luc Faustin PA-C [address] [place] [address] [facility] [address] [address] Referral ID Status Reason Start Date Expiration Date Visits Requested Visits Authorized [id number] Authorized PCP Requested Referral Auto-Generate d Referral 2 11/08/2022 12 12 Reason Comments PT Progress Note Reason Comments Established Patient 2 month follow up Reason Comments Bladder Problem feeling of incomplet e emptying Vaginal Problem h/o atrophic vaginit is Specialty Diagnoses / Procedures Referred By Thea cantu Referred To Contact Urology Diagnoses Urinary frequency Procedures CONSULT TO UROLOGY NEW PATIENT VISIT LEVEL 5 Esther, Andre J, MD [address] [place] [address] Referral ID Status Reason Start Date Expiration Date V isits Requested Visits Authorized [id number] Closed PCP Requested Referral 10/24/2021 10/24/2022 1 [...] back Specialty Diagnoses / Procedures Referred By Thea t Referred To Contact General Surgery Diagnoses Lipoma of back Procedures CONSULT TO GENERAL SURGERY OFFICE/OUTPATIENT NEW HIGH MDM 60-74 MINUTES Luc Faustin PA-C [address] [place] [address] Referral ID Status Reason Start Date Expiration Date V isits Requested Visits Authorized [id number] Closed PCP Requested Referral 07/01/2022 07/01/2023 1 1 Reason Comments Established Patient 3 month f/u Reason Comments Follow Up Excision of lipoma c hest wall & torso Reason Comments Follow Up Reason Comments Results Reason Comments Radiology US Specialty Diagnoses / Procedures Referred By Thea t Referred To Contact [facility] Diagnoses Feeling of incomplete bladder emptying Procedures US PELVIS BLADDER US PELVIC NONOBSTETRIC IMAGE DCMTN LIMITED/F/U Luc Faustin PA-C [address] [place] [address] [facility] Referral ID Status Reason Start Date Expiration Date V isits Requested Visits Authorized [id number] Closed Auto-Generate d Referral 08/13/2022 11/08/2022 1 1 Reason Onset Date Comments Refill Request 08/21/2022 Reason Comments PT Eval Specialty Diagnoses / Procedures Referred By Thea t Referred To Contact [facility] Diagnoses Sciatica, right side Procedures CONSULT TO PHYSICAL THERAPY PHYSICAL THERAPY EVALUATION HIGH COMPLEX 45 MINS Luc Faustin PA-C [address] [place] [address] [facility] [address] [place] [address] Referral ID Status Reason Start Date Expiration Date V isits Requested Visits Authorized [id number] Closed Auto-Generate d Referral 08/27/2022 10/27/2022 1 1 Reason Comments Results Chest x-ray Reason Comments Follow Up Back pain Reason Onset Date Comments Refill Request 09/01/2022 Reason Comments Follow Up Urinary Retention Specialty Diagnoses / Procedures Referred By Contac t Referred To Contact Diagnoses Feeling of incomplete bladder emptying Procedures CONSULT TO FEMALE UROLOGY/URO GYNECOLOGY OFFICE/OUTPATIENT [facility] 60-74 MINUTES Luc Faustni PA-C [address] [place] [address] Referral ID Status Reason Start Date Expiration Date V isits Requested Visits Authorized [id number] Closed PCP Requested Referral 08/13/2022 08/13/2023 1 1 Reason Comments Rash Started Thursday mor rios, from waist up, itchy Reason Comments New Patient Low Back Pain Leg Pain Right Specialty Diagnoses / Procedures Referred By Contac t Referred To Contact Pain Management Diagnoses Sciatica, right side Procedures CONSULT TO PAIN MGT OFFICE/OUTPATIENT [facility] 60-74 MINUTES Luc Faustin PA-C [address] [place] [address] Referral ID Status Reason Start Date Expiration Date V isits Requested Visits Authorized [id number] Closed PCP Requested Referral 08/28/2022 08/27/2023 1 1 Reason Comments Patient Update Consult Reason Comments Results, Lab Reason Comments New Patient Sjogren's Disease Specialty Diagnoses / Procedures Referred By Contac t Referred To Contact Rheumatology Diagnoses Sjoegren syndrome (HCC) Procedures CONSULT TO RHEUM/IMMUN DISEASE OFFICE/OUTPATIENT [facility] 60-74 MINUTES Luc Faustin PA-C [address] [place] [address] Referral ID Status Reason Start Date Expiration Date V isits Requested Visits Authorized [id number] Closed PCP Requested Referral 07/04/2022 07/04/2023 1 1 Reason Comments Palpitations Started this morning . Stopped taking HCTZ on the 1st along K+. Reason Comments Follow Up UTI Reason Comments Recheck Reason Comments Pain Right side under rib s x3 days Reason Comments Hematuria New Patient Specialty Diagnoses / Procedures Referred By Contac t Referred To Contact Urology Diagnoses Microscopic hematuria Procedures CONSULT TO UROLOGY OFFICE/OUTPATIENT NEW HIGH MDM 60-74 MINUTES Andre Santana MD [address] [place] [address] Referral ID Status Reason Start Date Expiration Date V isits Requested Visits Authorized [id number] Closed PCP Requested Referral 07/20/2023 07/19/2024 1 1 Reason Comments Hypertension Specialty Diagnoses / Procedures Referred By Contac t Referred To Contact US IMAGING Diagnoses RUQ pain Procedures US ABD RIGHT UPPER QUADRANT US ABDOMINAL REAL TIME W/IMAGE LIMITED [employer], TRINY Carney.INTELLIGENCE CHIEF [address] [place] [address] [place] [address] Referral ID Status Reason Start Date Expiration Date V isits Requested Visits Authorized [id number] Closed Auto-Generate d Referral 08/17/2023 09/15/2024 1 1 Specialty Diagnoses / Procedures Referred By Contac t Referred To Contact MR IMAGING Diagnoses Right lumbar radiculitis Lumbar stenosis with neurogenic claudication Intractable pain Foot drop, left Procedures MRI LUMBAR SPINE WO IVCON MRI SPINAL CANAL LUMBAR W/O CONTRAST MATERIAL Luc Faustin PA-C [address] [place] [address] [place] [address] Referral ID Status Reason Start Date Expiration Date V isits Requested Visits Authorized [id number] Closed Auto-Generat ed Referral Patient Cleared - Admin/Chairm an/Director advise to proceed or did not respond 09/05/2022 10/05/2022 [address] Specialty Diagnoses / Procedures Referred By Contac t Referred To Contact CT IMAGING Diagnoses Chest pain on breathing Procedures CT CHEST WO IVCON DIAGNOSTIC COMPUTED TOMOGRAPHY THORAX W/O CNTRST Luc Faustin PA-C [address] [place] [address] [place] [address] Referral ID Status Reason Start Date Expiration Date V isits Requested Visits Authorized [id number] Closed Auto-Generate d Referral 07/02/2023 07/31/2024 1 1 Specialty Diagnoses / Procedures Referred By Contac t Referred To Contact CT IMAGING Diagnoses Microscopic hematuria Procedures CT UROGRAM WO/W IVCON CT ABD & PELVIS W/O CONTRST 1+ BODY Evan Watson PA-C [address] [place] [address] [facility] [place] [address] Referral ID Status Reason Start Date Expiration Date V isits Requested Visits Authorized [id number] Closed Auto-Generate d Referral 08/27/2023 09/26/2023 1 [...] NEW HIGH MDM 60 MINUTES Sandy Holm, SECTION WEAVER.INTELLIGENCE CHIEF [address] [place] [address] Referral ID Status Reason Start Date Expiration Date V isits Requested Visits Authorized [id number] Closed PCP Requested Referral 07/18/2024 07/18/2025 1 [...] Nodule Specialty Diagnoses / Procedures Referred By Contac t Referred To Contact Pulmonary and Critical Care Medicine Diagnoses Granulomatous lung disease (HCC) Procedures CONSULT TO PULM/CRITICAL CARE OFFICE/OUTPATIENT [facility] 60 MINUTES Andre Santana MD [address] [place] [address] Referral ID Status Reason Start Date Expiration Date V isits Requested Visits Authorized [id number] Closed PCP Requested Referral 11/23/2024 11/23/2025 1 1 Reason Comments Received Outside Medical Records Reason Onset Date Comments Refill Request 12/26/2024 Reason Comments Results Chest CT Reason Comments Thyroid Nodule Specialty Diagnoses / Procedures Referred By Contac t Referred To Contact Endocrinology Diagnoses Thyroid nodule greater than or equal to 1 cm in diameter incidentally noted on imaging study Procedures CONSULT TO ENDOCRINOLOGY OFFICE/OUTPATIENT [facility] 60 MINUTES Andre Santana MD [address] [place] [address] Phone: tel: fax: Referral ID Status Reason Start Date Expiration Date V isits Requested Visits Authorized [id number] Closed PCP Requested Referral 11/28/2024 11/28/2025 1 1 Reason Comments Thyroid Nodule Requesting referral to endo surgery Reason Onset Date Comments Population Health Navigation Outreach 03/15/2025 Howie Workcooper Stephanie Reason Onset Date Comments Refill Request 04/04/2025 Reason Comments 6 Month Exam Reason Onset Date Comments Results 04/22/2025 Reason Comments Consult New Patient Specialty Diagnoses / Procedures Referred By Contac t Referred To Contact Diagnoses Multiple thyroid nodules Procedures CONSULT TO ENDOCRINE SURGERY OFFICE/OUTPATIENT [facility] 60 MINUTES Tulio Calderón MD [address] [facility] [place] [address] Phone: tel: fax: Referral ID Status Reason Start Date Expiration Date V isits Requested Visits Authorized [id number] Closed PCP Requested Referral 03/07/2025 03/07/2026 1 1 Reason Onset Date Comments Transition Of Care 06/07/2025 Reason Comments Follow Up 6 month follow up Reason Comments Recheck ER F/U [facility] 06/22 dx: merari sed head injury Care Teams (unrecognized sec tion and content) Hse Specialist Relationship Specialty Start Date End Date Andre Santana MD [address] [place] [address] PCP - General Family Practice 02/23/13 Hse Specialist Relationship Specialty Start Date End Date Andre Santana MD [address] [facility] [place] [address] PCP - General Family Practice 02/23/13 Hse Specialist Relationship Specialty Start Date End Date Andre Santana MD [address] [facility] [place] [address] PCP - General Family Practice 02/23/13 Hse Specialist Relationship Specialty Start Date End Date Andre Santana MD [address] [facility] [place] [address] PCP - General Family Practice 02/23/13 Hse Specialist Relationship Specialty Start Date End Date Andre Santana MD [address] [facility] [place] [address] PCP - General Family Practice 02/23/13 Hse Specialist Relationship Specialty Start Date End Date Andre Santana MD [address] [facility] [place] [address] PCP - General Family Practice 02/23/13 Hse Specialist Relationship Specialty Start Date End Date Andre Santana MD [address] [facility] [place] [address] PCP - General Family Practice 02/23/13 Hse Specialist Relationship Specialty Start Date End Date Andre Santana MD [address] [facility] [place] [address] PCP - General Family Practice 02/23/13 Hse Specialist Relationship Specialty Start Date End Date Andre Santana MD [address] [facility] [place] [address] PCP - General Family Practice 02/23/13 Hse Specialist Relationship Specialty Start Date End Date Andre Santana MD [address] [facility] [place] [address] PCP - General Family Practice 02/23/13 Hse Specialist Relationship Specialty Start Date End Date Andre Santana MD [address] [facility] [place] [address] PCP - General Family Medicine 02/23/13 Hse Specialist Relationship Specialty Start Date End Date Andre Santana MD [address] [facility] [place] [address] PCP - General Family Medicine 02/23/13 Hse Specialist Relationship Specialty [place] [address] [place] [address], [place] [address] PCP - General Family Medicine 02/23/13 Hse Specialist Relationship Specialty Start Date End Date Andre Santana MD [address] [facility] [place] [address] PCP - General Family Medicine 02/23/13 Hse Specialist Relationship Specialty Start Date End Date Andre Santana MD [address] [facility] [place] [address] PCP - General Family Medicine 02/23/13 Hse Specialist Relationship Specialty Start Date End Date Andre Santana MD [address] [facility] [place] [address] PCP - General Family Medicine 02/23/13 Hse Specialist Relationship Specialty Start Date End Date Andre Santana MD [address] [facility] [place] [address] PCP - General Family Medicine 02/23/13 Hse Specialist Relationship Specialty Start Date End Date Andre Santana MD [address] [facility] [place] [address] PCP - General Family Medicine 02/23/13 Hse Specialist Relationship Specialty Start Date End Date Andre Santana MD [address] [facility] [place] [address] PCP - General Family Medicine 02/23/13 Hse Specialist Relationship Specialty Start Date End Date Andre Santana MD [address] [facility] [place] [address] PCP - General Family Medicine 02/23/13 Hse Specialist Relationship Specialty Start Date End Date Andre Santana MD [address] [facility] [place] [address] PCP - General Family Medicine 02/23/13 Hse Specialist Relationship Specialty Start Date End Date Andre Santana MD [address] [facility] [place] [address] PCP - General Family Medicine 02/23/13 Hse Specialist Relationship Specialty Start Date End Date Andre Santana MD [address] [facility] [place] [address] PCP - General Family Medicine 02/23/13 Hse Specialist Relationship Specialty Start Date End Date Andre Santana MD [address] [facility] [place] [address] PCP - General Family Medicine 02/23/13 Hse Specialist Relationship Specialty Start Date End Date Andre Santana MD [address] [facility] [place] [address] PCP - General Family Medicine 02/23/13 Hse Specialist Relationship Specialty Start Date End Date Andre Santana MD [address] [facility] [place] [address] PCP - General Family Medicine 02/23/13 Hse Specialist Relationship Specialty Start Date End Date Andre Santana MD [address] [facility] [place] [address] PCP - General Family Medicine 02/23/13 Hse Specialist Relationship Specialty Start Date End Date Andre Santana MD [address] [facility] [place] [address] PCP - General Family Medicine 02/23/13 Hse Specialist Relationship Specialty Start Date End Date Andre Santana MD [address] [facility] [place] [address] PCP - General Family Medicine 02/23/13 Hse Specialist Relationship Specialty Start Date End Date Andre Santana MD [address] [facility] [place] [address] PCP - General Family Medicine 02/23/13 Hse Specialist Relationship Specialty Start Date End Date Andre Santana MD [address] [facility] [place] [address] PCP - General Family Medicine 02/23/13 Hse Specialist Relationship Specialty Start Date End Date Andre Santana MD [address] [place] [address] PCP - General Family Medicine 02/23/13 Hse Specialist Relationship Specialty Start Date End Date Andre Santana MD [address] [facility] [place] [address] PCP - General Family Medicine 02/23/13 Hse Specialist Relationship Specialty Start Date End Date Andre Santana MD [address] [facility] [place] [address] PCP - General Family Medicine 02/23/13 Hse Specialist Relationship Specialty Start Date End Date Andre Santana MD [address] [facility] [place] [address] PCP - General Family Medicine 02/23/13 Hse Specialist Relationship Specialty Start Date End Date Andre Santana MD [address] [facility] [address] PCP - General Family Medicine 02/23/13 Hse Specialist Relationship Specialty Start Date End Date Andre Santana MD [address] [place], [place] [address] PCP - General Family Medicine 02/23/13 Hse Specialist Relationship Specialty Start Date End Date Andre Santana MD [address] [place], [place] [address] PCP - General Family Medicine 02/23/13 Hse Specialist Relationship Specialty Start Date End Date Andre Santana MD [address] [place] [address] PCP - General Family Medicine 02/23/13 Hse Specialist Relationship Specialty Start Date End Date Andre Santana MD [address] [place] [address] PCP - General Family Medicine 02/23/13 Hse Specialist Relationship Specialty Start Date End Date Andre Santana MD [address] [place] [address] PCP - General Family Medicine 02/23/13 Hse Specialist Relationship Specialty Start Date End Date Andre Santana MD [address] [place] [address] PCP - General Family Medicine 02/23/13 Hse Specialist Relationship Specialty Start Date End Date Andre Santana MD [address] [place], [place] [address] PCP - General Family Medicine 02/23/13 Hse Specialist Relationship Specialty Start Date End Date Andre Santana MD [address] [place] [address] PCP - General Family Medicine 02/23/13 Hse Specialist Relationship Specialty Start Date End Date Andre Santana MD [address] [place] [address] PCP - General Family Medicine 02/23/13 Hse Specialist Relationship Specialty Start Date End Date Andre Santana MD [address] [place] [address] PCP - General Family Medicine 02/23/13 Hse Specialist Relationship Specialty Start Date End Date Andre Santana MD [address] [place] [address] PCP - General Family Medicine 02/23/13 Hse Specialist Relationship Specialty Start Date End Date Andre Santana MD [address] [place] [address] PCP - General Family Medicine 02/23/13 Hse Specialist Relationship Specialty Start Date End Date Andre Santana MD [address] [place] [address] PCP - General Family Medicine 02/23/13 Hse Specialist Relationship Specialty Start Date End Date Andre Santana MD [address] [place] [address] PCP - General Family Medicine 02/23/13 Hse Specialist Relationship Specialty Start Date End Date Andre Santana MD [address] [place], [place] [address] PCP - General Family Medicine 02/23/13 Hse Specialist Relationship Specialty Start Date End Date Andre Santana MD [address] [place], [place] [address] PCP - General Family Medicine 02/23/13 Hse Specialist Relationship Specialty Start Date End Date Andre Santana MD [address] [place] [address] PCP - General Family Medicine 02/23/13 Hse Specialist Relationship Specialty Start Date End Date Andre Santana MD [address] [place] [address] PCP - General Family Medicine 02/23/13 Hse Specialist Relationship Specialty Start Date End Date Andre Santana MD [address] [place] [address] PCP - General Family Medicine 02/23/13 Hse Specialist Relationship Specialty Start Date End Date Andre Santana MD [address] [place] [address] PCP - General Family Medicine 02/23/13 Hse Specialist Relationship Specialty Start Date End Date Andre Santana MD [address] [place] [address] PCP - General Family Medicine 02/23/13 Hse Specialist Relationship Specialty Start Date End Date Andre Santana MD [address] [place] [address] PCP - General Family Medicine 02/23/13 Hse Specialist Relationship Specialty Start Date End Date Andre Santana MD [address] [place] [address] PCP - General Family Medicine 02/23/13 Hse Specialist Relationship Specialty Start Date End Date Andre Santana MD [address] [place] [address] PCP - General Family Medicine 02/23/13 Hse Specialist Relationship Specialty Start Date End Date Andre Santana MD [address] [place] [address] PCP - General Family Medicine 02/23/13 Hse Specialist Relationship Specialty Start Date End Date Andre Santana MD [address] [place] [address] PCP - General Family Medicine 02/23/13 Hse Specialist Relationship Specialty Start Date End Date Andre Santana MD [address] [place] [address] PCP - General Family Medicine 02/23/13 Hse Specialist Relationship Specialty Start Date End Date Andre Santana MD [address] [place] [address] PCP - General Family Medicine 02/23/13 Hse Specialist Relationship Specialty Start Date End Date Andre Santana MD [address] [place] [address] PCP - General Family Medicine 02/23/13 Hse Specialist Relationship Specialty Start Date End Date Andre Santana MD [address] [place] [address] PCP - General Family Medicine 02/23/13 Hse Specialist Relationship Specialty Start Date End Date Andre Santana MD [address] [place] [address] PCP - General Family Medicine 02/23/13 Hse Specialist Relationship Specialty Start Date End Date Andre Santana MD [address] [facility] [place] [address] PCP - General 04/10/20 Hse Specialist Relationship Specialty Start Date End Date Andre Santana MD [address] [facility] [place] [address] PCP - General Family Medicine 02/23/13 Hse Specialist Relationship Specialty Start Date End Date Andre Santana MD [address] [facility] [place] [address] PCP - General Family Medicine 02/23/13 Trang Philippe APRN.INTELLIGENCE CHIEF [address] [facility] [place] [address] Dietitian Helper Family Medicine 10/17/24 Sandy Holm SECTION WEAVER.INTELLIGENCE CHIEF [address] [facility] [place] [address] Dietitian Helper Family Medicine 10/17/24 Hse Specialist Relationship Specialty Start Date End Date Andre Santana MD [address] [facility] [place] [address] PCP - General Family Medicine 02/23/13 Trang Philippe SECTION WEAVER.INTELLIGENCE CHIEF [address] [facility] [place] [address] Dietitian Helper Family Medicine 10/17/24 Sandy Holm SECTION WEAVER.INTELLIGENCE CHIEF [address] [facility] [place] [address] Dietitian Helper Family Medicine 10/17/24 Hse Specialist Relationship Specialty Start Date End Date Andre Santana MD [address] [place] [address] PCP - General Family Medicine 02/23/13 Trang Philippe APRN.INTELLIGENCE CHIEF [address] [place] [address] Dietitian Helper Family [facility] 10/17/24 Sandy Holm APRN.INTELLIGENCE CHIEF [address] [place] [address] [facility] 10/17/24 Hse Specialist Relationship Specialty Start Date End Date Andre Santana MD [address] [place] [address] PCP - General Family Medicine 02/23/13 Trang Philippe APRN.INTELLIGENCE CHIEF [address] [place] [address] Dietitian Helper Family Medicine 10/17/24 Sandy Holm APRN.INTELLIGENCE CHIEF [address] [place] [address] [facility] Hse Specialist Relationship Specialty Start Date End Date Andre Santana MD [address] [place] [address] PCP - General Family Medicine 02/23/13 Trang Philippe APRN.INTELLIGENCE CHIEF [address] [place] [address] Dietitian Helper Family [facility] 10/17/24 Sandy Holm APRN.INTELLIGENCE CHIEF [address] [place] [address] [facility]/17/[facility] Hse Specialist Relationship Specialty Start Date End Date Andre Santana MD [address] [facility] [place] [address] PCP - General Family Medicine 02/23/13 Trang Philippe, SECTION WEAVER.INTELLIGENCE CHIEF [address] [place] [address] Dietitian Helper Family [facility] 10/17/24 Sandy Holm SECTION WEAVER.INTELLIGENCE CHIEF [address] [facility] [place] [address] [facility] 10/17/24 Hse Specialist Relationship Specialty Start Date End Date Andre Santana MD [address] [facility] [place] [address] PCP - General Family Medicine 02/23/13 Trang Philippe, SECTION WEAVER.INTELLIGENCE CHIEF [address] [facility] [place] [address] [facility] 10/17/24 Sandy Holm SECTION WEAVER.INTELLIGENCE CHIEF [address] [facility] [place] [address] [facility] Medicine 10/17/24 Hse Specialist Relationship Specialty Start Date End Date Andre Santana MD [address] [facility] [place] [address] PCP - General Family Medicine 02/23/13 Trang Philippe, SECTION WEAVER.INTELLIGENCE CHIEF [address] [facility] [place] [address] Dietitian Helper Family Medicine 10/17/24 Sandy Holm SECTION WEAVER.INTELLIGENCE CHIEF [address] [facility] [place] [address] [facility] 10/17/24 Hse Specialist Relationship Specialty Start Date End Date Andre Santana MD [address] [facility] [place] [address] PCP - General Family Medicine 02/23/13 Trang Philippe SECTION WEAVER.INTELLIGENCE CHIEF [address] [facility] [place] [address] [facility] 10/17/24 Sandy Holm SECTION WEAVER.INTELLIGENCE CHIEF [address] [facility] [place] [address] [facility] 10/17/24 Hse Specialist Relationship Specialty Start Date End Date Andre Santana MD [address] [facility] [place] [address] PCP - General Family Medicine 02/23/13 Trang Philippe, SECTION WEAVER.INTELLIGENCE CHIEF [address] [facility] [place] [address] [facility] 10/17/24 Sandy Holm SECTION WEAVER.INTELLIGENCE CHIEF [address] [facility] [place] [address] [facility] Medicine 10/17/24 Hse Specialist Relationship Specialty Start Date End Date Andre Santana MD [address] [facility] [place] [address] PCP - General Family Medicine 02/23/13 Trang Philippe, SECTION WEAVER.INTELLIGENCE CHIEF [address] [facility] [place] [address] Dietitian Helper Family Medicine 10/17/24 Sandy Holm APRN.INTELLIGENCE CHIEF [address] [facility] [place] [address] Dietitian Helper Family Medicine 10/17/24 Hse Specialist Relationship Specialty Start Date End Date Andre Santana MD [address] [place] [address] PCP - General Family Medicine 02/23/13 Trang Philippe APRN.INTELLIGENCE CHIEF [address] [place] [address] Dietitian Helper Family Medicine 10/17/24 Sandy Holm APRN.INTELLIGENCE CHIEF [address] [place] [address] Dietitian Helper Family Medicine 10/17/24 Hse Specialist Relationship Specialty Start Date End Date Andre Santana MD [address] [place] [address] PCP - General Family Medicine 02/23/13 Trang Philippe APRN.INTELLIGENCE CHIEF [address] [place] [address] Dietitian Helper Family Medicine 10/17/24 Sandy Holm APRN.INTELLIGENCE CHIEF [address] [place] [address] Dietitian Helper Family Medicine 10/17/24 Hse Specialist Relationship Specialty Start Date End Date Andre Santana MD [address] [place] [address] PCP - General Family Medicine 02/23/13 Trang Philippe APRN.INTELLIGENCE CHIEF [address] [facility] [place] [address] Dietitian Helper Family Medicine 10/17/24 Sandy Holm APRN.INTELLIGENCE CHIEF [address] [facility] [place] [address] Dietitian Helper Family Medicine 10/17/24 Hse Specialist Relationship Specialty Start Date End Date Andre Santana MD [address] [facility] [place] [address] PCP - General Family Medicine 02/23/13 Trang Philippe APRN.INTELLIGENCE CHIEF [address] [place] [address] Dietitian Helper Family Medicine 10/17/24 Sandy Holm APRN.INTELLIGENCE CHIEF [address] [facility] [place] [address] Dietitian Helper Family Medicine 10/17/24 Hse Specialist Relationship Specialty Start Date End Date Andre Santana MD [address] [facility] [place] [address] PCP - General Family Medicine 02/23/13 Trang Philippe APRN.INTELLIGENCE CHIEF [address] [place] [address] Dietitian Helper Family Medicine 10/17/24 Sandy Holm APRN.INTELLIGENCE CHIEF [address] [facility] [place] [address] Dietitian Helper Family Medicine 10/17/24 Hse Specialist Relationship Specialty Start Date End Date Andre Satnana MD [address] [facility] [place] [address] PCP - General Family Medicine 02/23/13 Trang Philippe, TRINY.INTELLIGENCE CHIEF [address] [place], [place] [address] [facility] 10/17/24 Sandy Holm SECTION WEAVER.INTELLIGENCE CHIEF [address] [place], [place] [id number] [facility] 10/17/24 Team Status: Active Member Role Status [...] January 13, 2025 End: February 06, 2025 Hse Specialist Relationship Specialty Start Date End Date Andre Santana MD [address] [facility] [place] [address] PCP - General Family Medicine 02/23/13 Trang Philippe, SECTION WEAVER.INTELLIGENCE CHIEF [address] [facility] [place] [address] Dietitian Helper Family Medicine 10/17/24 Sandy Holm, SECTION WEAVER.INTELLIGENCE CHIEF [address] [facility] [place] [address] Dietitian Helper Family Medicine 10/17/24 Hse Specialist Relationship Specialty Start Date End Date Andre Santana MD [address] [facility] [place] [address] PCP - General Family Medicine 02/23/13 Trang Philippe, SECTION WEAVER.INTELLIGENCE CHIEF [address] [facility] [place] [address] Dietitian Helper Family Medicine 10/17/24 Sandy Holm SECTION WEAVER.INTELLIGENCE CHIEF [address] [place] [address] [facility] 10/17/24 Hse Specialist Relationship Specialty Start Date End Date Andre Santana MD [address] [place] [address] PCP - General Family Medicine 02/23/13 Trang Philippe, SECTION WEAVER.INTELLIGENCE CHIEF [address] [place] [address] [facility] 10/17/24 Sandy Holm SECTION WEAVER.INTELLIGENCE CHIEF [address] [place] [address] [facility] 10/17/24 Hse Specialist Relationship Specialty Start Date End Date Andre Santana MD [address] [place] [address] PCP - General Family Medicine 02/23/13 Trang Philippe, SECTION WEAVER.INTELLIGENCE CHIEF [address] [place] [address] [facility] 10/17/24 Sandy Holm SECTION WEAVER.INTELLIGENCE CHIEF [address] [place] [address] [facility] 10/17/24 Team Status: Active Member Role/Relationship Status Dates Dr. Andre Santana MD Primary Care Provider Active Team Status: Inactive Member Role/Relationship Status Dates Dr. Andre Santana MD Primary Care Provider Active Start: February 28, 2025 End: February 28, 2025 Dr. Bertin Field DO Attending Provider Active Start : February 28, 2025 End: February 28, 2025 Dr. Bertin Field DO Emergency Provider Active Start : February 28, 2025 End: February 28, 2025 Team Status: Active Member Role/Relationship Status Dates Dr. Andre Santana MD Primary Care Provider Active Start: June 05, 2025 Dr. Jimmy Gray MD Emergency Provider Active Start: June 05, 2025 Dr. Alin Helm MD Admit Provider Active Start: June 05, 2025 Dr. Alin Helm MD Attending Provider Active Start: June 05, 2025 Team Status: Inactive Member Role/Relationship Status Dates Dr. Andre Santana MD Primary Care Provider Active Start: June 05, 2025 End: June 06, 2025 Dr. Jimmy Gray MD Emergency Provider Active Start: June 05, 2025 End: June 06, 2025 Dr. Alin Helm MD Admit Provider Active Start: June 05, 2025 End: June 06, 2025 Dr. Alin Helm MD Attending Provider Active Start: June 05, 2025 End: June 06, 2025 Team Status: Active Member Role/Relationship Status Dates Dr. Andre Santana MD Primary Care Provider Active Start: June 05, 2025 Dr. Jimmy Gray MD Emergency Provider Active Start: June 05, 2025 Dr. Alin Helm MD Admit Provider Active Start: June 05, 2025 Dr. Alin Helm MD Attending Provider Active Start: June 05, 2025 Dr. Alin Helm MD Other Provider Active Start: June 05, 2025 Team Status: Active Member Role/Relationship Status Dates Dr. Andre Santana MD Primary Care Provider Active Start: June 06, 2025 Dr. Jimmy Gray MD Emergency Provider Active Start: June 06, 2025 Dr. Alin Helm MD Admit Provider Active Start: June 06, 2025 Dr. Alin Helm MD Attending Provider Active Start: June 06, 2025 Dr. Alin Helm MD Other Provider Active Start: June 06, 2025 Hse Specialist Relationship Specialty Start Date End Date Andre Santana MD [address] [place], [place] [address] PCP - General Family Medicine 02/23/13 Trang Philippe APRN.INTELLIGENCE CHIEF [address] [place], [place] [address] [facility] 10/17/24 Sandy Holm APRN.INTELLIGENCE CHIEF [address] [place], [place] [address] [facility] 10/17/24 Inactive Administered Medications - up to [...] may be documented in a n alternate sectionGoals may be documented in an alternate section FOR RECORDS PERTAINING TO PATIENTS [...] BE BASED ON THE PRIMARY CLINICAL RECORDS. [facility] [employer] [facility]. provides no warranty or guarantee of the accuracy or completeness of information in this document.
[2025-07-07 21:13] LABS: Color, Urine Red (Yellow); Glucose, Dipstick Normal (Normal); Ketone-Dipstick Negative (Negative); Leukocyte Esterase-Dipstick 25 /ul (Negative); Nitrite-Dipstick Negative (Negative); Occult Blood-Urine 250 /ul (Negative); Protein-Dipstick 100 mg/dl (Negative); Specific Gravity, Urine 1.010 (1.002-1.030); Urine Bilirubin Dipstick Negative (Negative)
[2025-07-07 21:29] VITALS: BP 147/70; PULSE 73; RESP 18; O2SAT 98
[2025-07-07 21:41] LABS: Red Blood Cells-Urine > 100 SEEN /hpf (0-5)
[2025-07-07 21:43] LABS: Squamous Epithelial Cells - UA 0-5 SEEN /hpf (5-10)
[2025-07-07 23:08] LABS: Lipase 88 U/L (13-75)
[2025-07-07 23:25] VITALS: BP 150/73; PULSE 69; RESP 18; TEMP 37.2; O2SAT 96
== END 2025-07-07 23:25 | disposition home or self-care (01) ==
PROVIDERS: Emergency Provider Emergency Medicine; PCP Family Medicine; Visit Provider Emergency Medicine
DX: R31.9 Hematuria, unspecified (principal); K85.90 Acute pancreatitis without necrosis or infection, unspecified; I25.2 Old myocardial infarction; Z87.891 Personal history of nicotine dependence; Z95.5 Presence of coronary angioplasty implant and graft
CPT/HCPCS: 74176; 80053; 81001; 83690; 85025; 99283